=== PATIENT | male | born 1950 | race Caucasian/White ===

== ENCOUNTER → 2017-10-31 13:22 | Outpatient (REF) | payer SELFPAY | LOC: OM 13:22 | PROVIDERS: PCP Internal Medicine; Visit Provider Nurse Practitioner Family | DX: Z11.1 Encounter for screening for respiratory tuberculosis (principal) ==

== ENCOUNTER → 2017-11-02 13:30 | Outpatient (REF) | payer SELFPAY | LOC: OM 13:30 | PROVIDERS: PCP Internal Medicine; Visit Provider Nurse Practitioner Family | DX: Z11.1 Encounter for screening for respiratory tuberculosis (principal) ==

== ENCOUNTER 2017-11-10 09:03 | Outpatient (CLI) | payer MEDICARE, OTHER, SELFPAY ==
[2017-11-10 09:32] LABS: Absolute Basophil Count 0.03 k/cumm (0.0-0.2); Absolute Eosinophil Count 0.24 k/cumm (0.0-0.7); Absolute Lymphocyte Count 1.37 k/cumm (1.2-3.4); Absolute Monocyte Count 0.45 k/cumm (0.11-0.7); Absolute Neutrophil Count 2.89 k/cumm (1.2-6.7); Basophils % 0.6; Eosinophils % 4.8; HCT 41.4 % (40.0-50.0); HGB 13.9 g/dL (13.5-17.5); Lymphocytes % 27.5; Mean Corp. HGB Concentration 33.6 g/dL (32.0-36.0); Mean Corpuscular Volume 95.2 fL (80-95); Mean Platelet Volume 8.9 fL (8.0-11.0); Neutrophils % 58.1; Platelet Count 242 x1000/uL (130-400); RBC 4.35 m/cumm (4.50-6.00); RBC Distribution Width 13.3 % (11.8-14.1); White Blood Cell Count 4.98 k/cumm (4.4-10.8)
[2017-11-10 09:45] LABS: ALT 41 U/L (12-78); AST 26 U/L (15-37); Albumin 4.2 g/dL (3.4-5.0); Alkaline Phosphatase 92 U/L (46-116); Anion Gap 8.3 mmol/L (3-11); BUN 20 mg/dL (7-18); Bilirubin, Total 0.6 mg/dL (0.2-1.0); CO2 27.7 mmol/L (21.0-32.0); CREATININE 1.12 mg/dL (0.70-1.30); Calcium 9.2 mg/dL (8.5-10.1); Chloride 105 mmol/L (98-107); Glucose 99 mg/dL (70-100); Potassium 4.1 mmol/L (3.5-5.1); Sodium 141 mmol/L (136-145); Total Protein 8.4 g/dL (6.4-8.2)
[2017-11-11 09:06] LABS: PSA, Diagnostic <0.1 ng/ml (0-4.5)
== END 2017-11-10 09:23 ==
PROVIDERS: PCP Internal Medicine; Visit Provider Internal Medicine Medical Oncology
DX: C61 Malignant neoplasm of prostate (principal)
CPT/HCPCS: 36415; 80053; 84153; 85025

== ENCOUNTER 2017-11-15 11:43 | Outpatient (REF) | payer MEDICARE, OTHER, SELFPAY ==
[2017-11-15 21:47] LABS: Cholesterol 177 mg/dL (50-200); HDL Cholesterol 49 mg/dL (40-60); LDL CHOLESTEROL 112 mg/dL (<100); Triglyceride 125 mg/dL (30-150)
[2017-11-15 21:53] LABS: Hemoglobin A1C 5.8 % (4.5-6.2)
[2017-11-17 11:57] LABS: Hepatitis C Ab w Rflx HCV PCR Negative (NEGAT)
== END 2017-11-15 12:03 ==
LOC: NCHCN 11:43
PROVIDERS: PCP Internal Medicine; Visit Provider Internal Medicine
DX: C61 Malignant neoplasm of prostate (principal); E78.5 Hyperlipidemia, unspecified; E03.9 Hypothyroidism, unspecified; F31.81 Bipolar II disorder
CPT/HCPCS: 80061; 83721; 86803; 83036

== ENCOUNTER 2018-08-03 13:16 | Outpatient (REF) | payer MEDICARE, OTHER, SELFPAY | END 2018-08-03 13:36 | LOC: NCHCN 13:16 | PROVIDERS: Visit Provider Internal Medicine | DX: E03.9 Hypothyroidism, unspecified (principal) | CPT/HCPCS: 84443 ==

== ENCOUNTER 2018-08-11 02:58 | Outpatient (CLI) | payer MEDICARE, OTHER, SELFPAY ==
[2018-08-11 10:29] LABS: Abs Immature Grans 0.01 k/cumm (0.0-0.09); Absolute Basophil Count 0.01 k/cumm (0.0-0.2); Absolute Lymphocyte Count 1.56 k/cumm (1.2-3.4); Absolute Monocyte Count 0.49 k/cumm (0.11-0.7); Basophils % 0.2; Eosinophils % 1.8; HCT 41.5 % (40.0-50.0); HGB 14.1 g/dL (13.5-17.5); Immature Grans % 0.2; Lymphocytes % 27.5; Mean Corpuscular Hemoglobin 32.1 pg (27.0-33.0); Mean Corpuscular Volume 94.5 fL (80-95); Mean Platelet Volume 8.6 fL (8.0-11.0); Monocytes % 8.6; Neutrophils % 61.7; Platelet Count 237 x1000/uL (130-400); RBC 4.39 m/cumm (4.50-6.00); RBC Distribution Width 12.6 % (11.8-14.1); White Blood Cell Count 5.67 k/cumm (4.4-10.8)
[2018-08-11 11:18] LABS: ALT 60 U/L (12-78); AST 26 U/L (15-37); Alkaline Phosphatase 99 U/L (46-116); Anion Gap 11.5 mmol/L (3-11); BUN 22 mg/dL (7-18); Bilirubin, Total 0.2 mg/dL (0.2-1.0); CO2 25.5 mmol/L (21.0-32.0); CREATININE 1.09 mg/dL (0.70-1.30); Calcium 8.9 mg/dL (8.5-10.1); Chloride 104 mmol/L (98-107); Glucose 132 mg/dL (70-100); Potassium 4.2 mmol/L (3.5-5.1); Sodium 141 mmol/L (136-145); Total Protein 7.9 g/dL (6.4-8.2)
[2018-08-14 09:57] LABS: PSA, Diagnostic <0.1 ng/ml (0-4.5)
== END 2018-08-11 03:18 ==
PROVIDERS: PCP Internal Medicine; Visit Provider Internal Medicine Hematology & Oncology
DX: C61 Malignant neoplasm of prostate (principal); C77.5 Secondary and unspecified malignant neoplasm of intrapelvic lymph nodes
CPT/HCPCS: 36415; 80053; 84153; 85025

== ENCOUNTER → 2018-09-18 13:43 | Outpatient (BNVA) | payer MEDICARE, OTHER, SELFPAY | PROVIDERS: PCP Internal Medicine; Visit Provider Urology | DX: C61 Malignant neoplasm of prostate (principal) | CPT/HCPCS: 99213 ==

== ENCOUNTER 2018-10-13 09:10 | Outpatient (CLI) | payer MEDICARE, OTHER, SELFPAY ==
[2018-10-13 10:33] LABS: ALT 96 U/L (12-78); AST 46 U/L (15-37); Albumin 3.9 g/dL (3.4-5.0); Alkaline Phosphatase 95 U/L (46-116); Anion Gap 11.7 mmol/L (3-11); BUN 16 mg/dL (7-18); Bilirubin, Total 0.4 mg/dL (0.2-1.0); CO2 27.3 mmol/L (21.0-32.0); CREATININE 1.19 mg/dL (0.70-1.30); Calcium 8.8 mg/dL (8.5-10.1); Calculated LDL 135 mg/dL; Chloride 106 mmol/L (98-107); Cholesterol 211 mg/dL (50-200); Glucose 101 mg/dL (70-100); HDL Cholesterol 41 mg/dL (40-60); Potassium 4.3 mmol/L (3.5-5.1); Sodium 145 mmol/L (136-145); Total Protein 7.4 g/dL (6.4-8.2); Triglyceride 178 mg/dL (30-150)
== END 2018-10-13 09:30 ==
PROVIDERS: PCP Internal Medicine; Visit Provider Nurse Practitioner Family
DX: F31.13 Bipolar disorder, current episode manic without psychotic features, severe (principal); Z79.899 Other long term (current) drug therapy
CPT/HCPCS: 36415; 80053; 80061; 83721

== ENCOUNTER 2018-11-10 09:00 | Outpatient (CLI) | payer MEDICARE, OTHER, SELFPAY ==
[2018-11-10 11:12] LABS: Abs Immature Grans 0.02 k/cumm (0.0-0.09); Absolute Basophil Count 0.03 k/cumm (0.0-0.2); Absolute Eosinophil Count 0.33 k/cumm (0.0-0.7); Absolute Lymphocyte Count 2.04 k/cumm (1.2-3.4); Absolute Monocyte Count 0.54 k/cumm (0.11-0.7); Absolute Neutrophil Count 2.66 k/cumm (1.2-6.7); Basophils % 0.5; Eosinophils % 5.9; HCT 40.2 % (40.0-50.0); HGB 13.7 g/dL (13.5-17.5); Immature Grans % 0.4; Lymphocytes % 36.3; Mean Corp. HGB Concentration 34.1 g/dL (32.0-36.0); Mean Corpuscular Hemoglobin 32.2 pg (27.0-33.0); Mean Corpuscular Volume 94.4 fL (80-95); Monocytes % 9.6; Neutrophils % 47.3; Platelet Count 257 x1000/uL (130-400); RBC 4.26 m/cumm (4.50-6.00); RBC Distribution Width 12.8 % (11.8-14.1); White Blood Cell Count 5.62 k/cumm (4.4-10.8)
[2018-11-10 12:06] LABS: ALT 74 U/L (16-63); AST 36 U/L (15-37); Albumin 3.9 g/dL (3.4-5.0); Alkaline Phosphatase 106 U/L (46-116); Anion Gap 6.9 mmol/L (3-11); BUN 21 mg/dL (7-18); Bilirubin, Total 0.3 mg/dL (0.2-1.0); CO2 30.1 mmol/L (21.0-32.0); CREATININE 1.02 mg/dL (0.70-1.30); Calcium 8.8 mg/dL (8.5-10.1); Chloride 106 mmol/L (98-107); Glucose 97 mg/dL (70-100); Potassium 4.4 mmol/L (3.5-5.1); Sodium 143 mmol/L (136-145); Total Protein 7.6 g/dL (6.4-8.2)
[2018-11-13 11:00] LABS: PSA, Diagnostic <0.1 ng/ml (0-6.5)
== END 2018-11-10 09:20 ==
PROVIDERS: Internal Medicine Hematology & Oncology; PCP Internal Medicine; Visit Provider Registered Nurse Oncology
DX: C61 Malignant neoplasm of prostate (principal)
CPT/HCPCS: 36415; 80053; 84153; 85025

== ENCOUNTER → 2019-01-25 09:30 | Outpatient (BNVA) | payer MEDICARE, OTHER, SELFPAY | PROVIDERS: PCP Internal Medicine; Referring Provider Nurse Practitioner Family; Visit Provider Psychiatry & Neurology Neurology | DX: R41.3 Other amnesia (principal); G62.9 Polyneuropathy, unspecified; G25.1 Drug-induced tremor | CPT/HCPCS: 99205; 99215 ==

== ENCOUNTER 2019-01-29 02:24 | Outpatient (CLI) | payer MEDICARE, OTHER, SELFPAY ==
--- NOTE | 2019-01-29 15:05 | DI.MRI_ITS ---
EXAM: MR BRAIN WO CLINICAL HISTORY: MEMORY LOSS, AMNESIA, R41.3. TECHNIQUE: Multiplanar multisequence MRI was performed. COMPARISON: No exams were available for comparison FINDINGS: The vertebral and basilar arteries are ectatic but otherwise normal in diameter. The distal internal carotid arteries, anterior middle cerebral artery flow voids are unremarkable. There is mild underl georges atrophy. No intracranial hemorrhage, mass or infarct is seen. Ventricles are normal in size. There are no significant white matter lesions. The orbits, sinuses and pituitary are unremarkable. IMPRESSION: Mild atrophy. No acute abnormality.
[2019-01-29 15:47] LABS: Vitamin B12 521 pg/mL (193-986)
== END 2019-01-29 02:44 ==
PROVIDERS: PCP Internal Medicine; Visit Provider Psychiatry & Neurology Neurology
DX: R41.3 Other amnesia (principal); G31.89 Other specified degenerative diseases of nervous system; G62.9 Polyneuropathy, unspecified
CPT/HCPCS: 36415; 70551; 82607

== ENCOUNTER 2019-01-31 09:28 | Outpatient (CLI) | payer MEDICARE, OTHER, SELFPAY ==
[2019-01-31 12:24] LABS: Abs Immature Grans 0.01 k/cumm (0.0-0.09); Absolute Basophil Count 0.02 k/cumm (0.0-0.2); Absolute Eosinophil Count 0.11 k/cumm (0.0-0.7); Absolute Monocyte Count 0.62 k/cumm (0.11-0.7); Basophils % 0.3; Eosinophils % 1.9; HCT 40.9 % (40.0-50.0); HGB 13.5 g/dL (13.5-17.5); Immature Grans % 0.2; Lymphocytes % 32.4; Mean Corpuscular Hemoglobin 31.4 pg (27.0-33.0); Mean Corpuscular Volume 95.1 fL (80-95); Mean Platelet Volume 9.1 fL (8.0-11.0); Monocytes % 10.6; Neutrophils % 54.6; Platelet Count 307 x1000/uL (130-400); White Blood Cell Count 5.86 k/cumm (4.4-10.8)
[2019-01-31 12:45] LABS: ALT 50 U/L (16-63); AST 33 U/L (15-37); Albumin 4.1 g/dL (3.4-5.0); Alkaline Phosphatase 91 U/L (46-116); Anion Gap 10.1 mmol/L (3-11); BUN 22 mg/dL (7-18); Bilirubin, Total 0.3 mg/dL (0.2-1.0); CO2 28.9 mmol/L (21.0-32.0); CREATININE 1.07 mg/dL (0.70-1.30); Calcium 9.2 mg/dL (8.5-10.1); Chloride 105 mmol/L (98-107); Glucose 92 mg/dL (74-106); Potassium 4.2 mmol/L (3.5-5.1); Sodium 144 mmol/L (136-145); Total Protein 7.5 g/dL (6.4-8.2)
[2019-02-05 10:41] LABS: PSA, Diagnostic <0.1 ng/mL (0.0-6.5)
== END 2019-01-31 09:48 ==
PROVIDERS: PCP Internal Medicine; Visit Provider Internal Medicine Hematology & Oncology
DX: C61 Malignant neoplasm of prostate (principal)
CPT/HCPCS: 36415; 80053; 84153; 85025

== ENCOUNTER 2019-04-11 13:53 | Outpatient (CLI) | payer MEDICARE, OTHER, SELFPAY ==
--- NOTE | 2019-04-11 09:40 | DI.RAD_ITS ---
EXAM: XR ELBOW LT COMPLETE INDICATION: ELBOW JOINT PAIN LT M25.522, FELL BACKWARDS 04/10/19 AFTER SLIPPING ON ICE. COMPARISON: No exams were available for comparison TECHNIQUE: 2D digital imaging was performed. FINDINGS: There is a longitudinal lucency through the lateral aspect of the radial head suspicious for a nondis placed fracture. There is a joint effusion. No other fracture or dislocation is appreciated. No ra diopaque foreign bodies are seen in the soft tissues. IMPRESSION: Findings suspicious for a nondisplaced radial head fracture. A CT scan of the elbow should be consid ered for further evaluation.
== END 2019-04-11 14:13 ==
PROVIDERS: PCP Internal Medicine; Visit Provider Specialist/Technologist Athletic Trainer
DX: M25.522 Pain in left elbow (principal); M25.422 Effusion, left elbow; M89.8X3 Other specified disorders of bone, forearm
CPT/HCPCS: 73080

== ENCOUNTER → 2019-04-13 08:39 | Outpatient (BNVA) | payer MEDICARE, OTHER, SELFPAY | PROVIDERS: PCP Internal Medicine; Referring Provider Internal Medicine; Visit Provider Student in an Organized Health Care Education/Training Program | DX: S50.02XA Contusion of left elbow, initial encounter (principal); W00.0XXA Fall on same level due to ice and snow, initial encounter | CPT/HCPCS: 99203; 99213 ==

== ENCOUNTER 2019-04-27 02:40 | Outpatient (CLI) | payer MEDICARE, OTHER, SELFPAY ==
--- NOTE | 2019-04-27 | DI.CT_ITS ---
EXAM: CT ABDOMEN AND PELVIS W CLINICAL HISTORY: H/O PROSTATE CA WITH ILIAC LYMPH NODE INVOLVEMENT TECHNIQUE: Images were performed from the lung bases through the ischial tuberosities after IV and o ral contrast. COMPARISON: ABD PELVIS WITH CONTRAST from 05/12/2016 FINDINGS: The lung bases are clear. The liver, spleen, pancreas, adrenals and kidneys are unremarkable. The pat ient is status post cholecystectomy. The colon shows increased stool. The stomach and small bowel are unremarkable. Metallic densities are noted in the prostate, which is mildly enlarged. The prostate a ppears smaller when compared with the previous exam and shows no invasive features. Prostate measures 5.3 x 4.2 x 4.7 cm. There is mild diffuse bladder wall thickening. No bladder mass or bladder calcul i are seen. The aorta shows mild to moderate calcification and is normal in diameter. No adenopathy i s seen. Previously noted right iliac chain lymph node is no longer seen. No suspicious bony lesions a re seen. A hemangioma is seen in the L1 vertebral body. There are prominent facet degenerative change s at L5-S1. IMPRESSION: Interval decrease in size of prostate. No evidence of adenopathy or metastatic disease.
[2019-04-27] MEDS: Breeza Beverage 473 ML BTL PO ×2 (07:40→07:42)
[2019-04-27] MEDS: Omnipaque 350 MG/ML 50 ML BTL PO (07:42)
[2019-04-27 08:15] LABS: Abs Immature Grans 0.01 k/cumm (0.0-0.09); Absolute Basophil Count 0.03 k/cumm (0.0-0.2); Absolute Eosinophil Count 0.13 k/cumm (0.0-0.7); Absolute Lymphocyte Count 1.72 k/cumm (1.2-3.4); Absolute Monocyte Count 0.47 k/cumm (0.11-0.7); Absolute Neutrophil Count 3.18 k/cumm (1.2-6.7); Basophils % 0.5; Eosinophils % 2.3; HCT 42.9 % (40.0-50.0); HGB 14.5 g/dL (13.5-17.5); Immature Grans % 0.2 %; Mean Corp. HGB Concentration 33.8 g/dL (32.0-36.0); Mean Corpuscular Hemoglobin 31.7 pg (27.0-33.0); Mean Corpuscular Volume 93.9 fL (80-95); Mean Platelet Volume 8.7 fL (8.0-11.0); Monocytes % 8.5; Neutrophils % 57.5; Platelet Count 274 x1000/uL (130-400); RBC 4.57 m/cumm (4.50-6.00); RBC Distribution Width 13.2 % (11.8-14.1); White Blood Cell Count 5.54 k/cumm (4.4-10.8)
[2019-04-27 08:30] LABS: ALT 30 U/L (16-63); AST 23 U/L (15-37); Alkaline Phosphatase 93 U/L (46-116); BUN 17 mg/dL (7-18); Bilirubin, Total 0.5 mg/dL (0.2-1.0); CREATININE 1.11 mg/dL (0.70-1.30); Calcium 8.6 mg/dL (8.5-10.1); Chloride 107 mmol/L (98-107); Glucose 106 mg/dL (74-106); Potassium 3.8 mmol/L (3.5-5.1); Sodium 146 mmol/L (136-145); Total Protein 7.6 g/dL (6.4-8.2)
[2019-04-27] MEDS: Normal Saline - Diluent 50 ML VIAL IV (09:45)
[2019-04-27] MEDS: Omnipaque 350 MG/ML 100 ML BTL IJ (09:46)
[2019-04-27] MEDS: Normal Saline Flush 10 ML SYR IVP (09:48)
[2019-04-28 11:58] LABS: PSA, Ultrasensitive <0.01 ng/mL (<= 6.5)
== END 2019-04-27 03:00 ==
PROVIDERS: PCP Internal Medicine; Visit Provider Internal Medicine Hematology & Oncology
DX: C61 Malignant neoplasm of prostate (principal); C79.89 Secondary malignant neoplasm of other specified sites
CPT/HCPCS: 80053; 84153; 74177; 85025; J3490; Q9967

== ENCOUNTER 2019-07-20 01:33 | Outpatient (CLI) | payer MEDICARE, OTHER, SELFPAY ==
[2019-07-23 13:26] LABS: PSA, Ultrasensitive <0.01 ng/mL (<= 6.5)
== END 2019-07-20 01:53 ==
PROVIDERS: PCP Internal Medicine; Visit Provider Internal Medicine Hematology & Oncology
DX: C61 Malignant neoplasm of prostate (principal)
CPT/HCPCS: 36415; 84153

== ENCOUNTER → 2019-07-26 10:42 | Outpatient (BNVA) | payer MEDICARE, OTHER, SELFPAY | PROVIDERS: PCP Internal Medicine; Referring Provider Internal Medicine; Visit Provider Psychiatry & Neurology Neurology | DX: G25.1 Drug-induced tremor (principal); R41.3 Other amnesia | CPT/HCPCS: 99214 ==

== ENCOUNTER 2019-08-08 10:27 | Outpatient (REF) | payer MEDICARE, OTHER, SELFPAY ==
[2019-08-08 21:56] LABS: TSH 0.57 uIU/mL (0.36-3.74)
== END 2019-08-08 10:47 ==
LOC: NCHCN 10:27
PROVIDERS: PCP Internal Medicine; Visit Provider Internal Medicine
DX: E03.9 Hypothyroidism, unspecified (principal)
CPT/HCPCS: 84443

== ENCOUNTER → 2019-09-20 15:28 | Outpatient (BNVA) | payer MEDICARE, OTHER, SELFPAY | PROVIDERS: PCP Internal Medicine; Visit Provider Urology | DX: C61 Malignant neoplasm of prostate (principal) | CPT/HCPCS: 99213 ==

== ENCOUNTER 2019-10-17 12:14 | Inpatient (IN) | payer MEDICARE, OTHER, SELFPAY ==
[2019-10-17 12:15] VITALS: BP 149/93; PULSE 118; RESP 18; TEMP 37.2; O2SAT 97
--- NOTE | 2019-10-17 12:19 | ED.GENADUL_ITS ---
Discharge Plan Disposition Patient Disposition: [facility] INPATIENT Condition: Stable Discharge Details Chief Complaint: PsychEval Clinical Impression: Major depression, Suicide ideation Admit Date/Time: 10/17/19 15:18 Admit Provider: Rosangela Norris Attending Provider: Rosangela Norris Primary Care Provider: Celio Sanders ED Provider: Sofy Lindquist Discharge Data Discharge Date/Time-TO BE ENTERED AT DEPARTURE: 10/17/19 15:50 Medical Decision Making 1230 -- 69-year-old male with a history of bipolar disorder, hypothyroidism, hyperlipidemia prostate cancer on Lupron presents for admission for suicidal ideation. Patient is voluntary and agreeable with plan for admission. Patient appears anxious with flat affect. His heart rate is tachycardic. He appears nontoxic. Screening labs obtained and unremarkable. Will page mental health for evaluation. 1445 --mental health evaluated at bedside and agree that patient is appropriate for inpatient admission. There will be no inpatient psychiatric beds available today. Recommend admission here overnight. Case discussed with hospitalist who accepts patient for admission. Medical Records Medical records reviewed: Yes I reviewed the patient's medical records. Lab Data Lab results reviewed: Yes I reviewed the patient's lab results. Labs: Laboratory Tests Range/Units 10/17/19 10/17/19 10/17/19 12:25 12:36 12:36 WBC (4.4-10.8) 10^3/uL 7.27 RBC (4.36-5.78) 10^6/uL 4.29 L Hgb (13.5-17.5) g/dL 13.6 Hct (40.0-50.0) % 40.3 MCV (80-95) fL 93.9 MCH (27.0-33.0) pg 31.7 MCHC (32.0-36.0) % 33.7 RDW (11.8-14.1) % 13.0 Plt Count (130-400) 10^3/uL 261 MPV (8.0-11.0) fL 8.8 Immature Gran % 0.6 Neutrophils % 71.7 Lymphocytes % 18.2 Monocytes % 8.4 Eosinophils % 0.8 Basophils % 0.3 Absolute Neutrophils (1.2-6.7) 10^3/uL 5.22 Absolute Lymphocytes (1.2-3.4) 10^3/uL 1.32 Absolute Monocytes (0.1-0.8) 10^3/uL 0.61 Absolute Eosinophils (0.0-0.7) 10^3/uL 0.06 Absolute Basophils (0.0-0.2) 10^3/uL 0.02 Sodium (136-145) mmol/L 140 Potassium (3.5-5.1) mmol/L 3.7 Chloride (98-107) mmol/L 104 Carbon Dioxide (21.0-32.0) mmol/L 27.9 Anion Gap (3-11) mmol/L 8.1 BUN (7-18) mg/dL 17 Creatinine (0.70-1.30) mg/dL 1.01 Estimated GFR/1.73 m2 (mL/min/1.73m2) >= 60.00 Glucose (74-106) mg/dL 164 H Calcium (8.5-10.1) mg/dL 8.8 Total Bilirubin (0.2-1.0) mg/dL 0.3 AST (15-37) U/L 20 ALT (16-63) U/L 44 Alkaline Phosphatase (46-116) U/L 64 Total Protein (6.4-8.2) g/dL 7.7 Albumin (3.4-5.0) g/dL 4.1 TSH (0.36-3.74) uIU/mL Urine Opiates Screen (Negative) Negative Urine Methadone Screen (Negative) Negative Ur Barbiturates Screen (Negative) Negative Ur Tricyclics Screen (Negative) Negative Ur Amphetamines Screen (Negative) Negative U Benzodiazepines Scrn (Negative) Negative Urine Cocaine Screen (Negative) Negative Ur THC Screen (Negative) Negative Ethyl Alcohol (<3) mg/dL < 3.0 Range/Units 10/17/19 12:36 WBC (4.4-10.8) 10^3/uL RBC (4.36-5.78) 10^6/uL Hgb (13.5-17.5) g/dL Hct (40.0-50.0) % MCV (80-95) fL MCH (27.0-33.0) pg MCHC (32.0-36.0) % RDW (11.8-14.1) % Plt Count (130-400) 10^3/uL MPV (8.0-11.0) fL Immature Gran % Neutrophils % Lymphocytes % Monocytes % Eosinophils % Basophils % Absolute Neutrophils (1.2-6.7) 10^3/uL Absolute Lymphocytes (1.2-3.4) 10^3/uL Absolute Monocytes (0.1-0.8) 10^3/uL Absolute Eosinophils (0.0-0.7) 10^3/uL Absolute Basophils (0.0-0.2) 10^3/uL Sodium (136-145) mmol/L Potassium (3.5-5.1) mmol/L Chloride (98-107) mmol/L Carbon Dioxide (21.0-32.0) mmol/L Anion Gap (3-11) mmol/L BUN (7-18) mg/dL Creatinine (0.70-1.30) mg/dL Estimated GFR/1.73 m2 (mL/min/1.73m2) Glucose (74-106) mg/dL Calcium (8.5-10.1) mg/dL Total Bilirubin (0.2-1.0) mg/dL AST (15-37) U/L ALT (16-63) U/L Alkaline Phosphatase (46-116) U/L Total Protein (6.4-8.2) g/dL Albumin (3.4-5.0) g/dL TSH (0.36-3.74) uIU/mL 0.95 Urine Opiates Screen (Negative) Urine Methadone Screen (Negative) Ur Barbiturates Screen (Negative) Ur Tricyclics Screen (Negative) Ur Amphetamines Screen (Negative) U Benzodiazepines Scrn (Negative) Urine Cocaine Screen (Negative) Ur THC Screen (Negative) Ethyl Alcohol (<3) mg/dL HPI General Mode of arrival: ambulatory . Date/Time Provider Initiated Documentation: 10/17/19 12:18 . Limitations to Documentation: no limitations . Information obtained by: patient . HPI Narrative: Patient is a 69-year-old male with a history of bipolar disorder, hyperlipidemia, hypothyroidism, prostate cancer who presents to the ED with a complaint of feeling suicidal for the past several months, getting progressively worse. Patient was sent by [facility] for admission. Patient is willing to stay for admission. He states he purchased a gun over the weekend with intent to shoot himself. He has had previous suicidal thoughts for several years but has never attempted suicide. He has been taking his medications. He states he feels that his is sometimes a support system but sometimes is angry with him. He states he has been sleeping well and eating well. He denies any acute medical complaints. He denies any homicidal ideation, drug or alcohol use, visual or auditory hallucinations. Related Data Home Medications Medication Instructions Recorded Confirmed levothyroxine 75 mcg PO DAILY #4 tab 08/04/17 10/17/19 pravastatin 20 mg tablet 40 mg PO DAILY tab 01/25/19 10/17/19 lamotrigine 200 mg tablet 200 mg PO DAILY 07/26/19 10/17/19 mirtazapine 30 mg tablet 60 mg PO HS tab 07/26/19 10/17/19 benztropine 2 mg PO QAM 10/17/19 10/17/19 risperidone 2 mg PO DAILY 10/17/19 10/17/19 Previous Rx's Medication Instructions Recorded levothyroxine 75 mcg PO DAILY #4 tab 08/04/17 Allergies Allergy/AdvReac Type Severity Reaction Status Date / Time No Known Allergies Allergy Unverified 07/26/19 10:49 Review of Systems All systems reviewed & are unremarkable except as noted in HPI and below Constitutional Constitutional: Reports as per HPI, Denies chills and Denies fever(s) Eyes Eyes: Denies blurry vision ENT Ears, Nose, Mouth, and Throat: Denies dizziness, Denies sore throat and Denies throat swelling Cardiovascular Cardiovascular: Denies chest pain and Denies dyspnea Respiratory Respiratory: Denies cough and Denies dyspnea Gastrointestinal Gastrointestinal: Denies abdominal pain, Denies diarrhea and Denies vomiting Genitourinary Genitourinary: Denies hematuria and Denies dysuria Musculoskeletal Musculoskeletal: Denies back pain and Denies numbness Integumentary/Breasts Skin/Breast: Denies lesions and Denies rash Neurologic Neurologic: Denies dizziness, Denies localized weakness and Denies numbness Psychiatric Psychiatric: Reports suicidal ideation Allergic/Immunologic Allergic/Immunologic: Denies throat swelling [facility] Medical History (Updated 10/17/19 @ 20:30 by Sofy Lindquist DO) Bipolar disorder, manic (Acute) Hyperlipidemia (Chronic) Hypothyroidism (Chronic) Prostate cancer (Chronic) Psoriasis (Chronic) Surgical History S/P appendectomy (Acute) S/P cholecystectomy (Acute) S/P tonsillectomy (Acute) Family History Father Alzheimer disease Prostate cancer Anxiety Mother Colon cancer Heart disease Social History Smoking/Tobacco Use Status: Never Alcohol Intake: current Alcohol Intake frequency: holidays/special occasions only Drug use: Never Substance use type: does not use Household members: spouse Number of Children: 2 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; [employer] Do you feel safe at home: No (suicidal) Do you feel safe in your relationship?: Yes Exam Const General: cooperative, healthy appearing and no acute distress HENMT Head: normal to inspection Face and sinus: normal facial exam Eyes General: appearance normal, both eyes and all related structures Pupils: PERRL EOM: EOM intact bilaterally Neck Neck: normal visual inspection and No submandibular swelling Lymphatic: no lymphadenopathy noted Chest Chest: normal inspection of the chest and no tenderness Resp Effort & Inspection: normal respiratory effort and able to speak in complete sentences Auscultation: clear to auscultation bilaterally Cardio Rate: regular rate Rhythm: regular rhythm GI Inspection: normal to inspection Palpation: soft, not firm, not rigid and nontender Auscultation: normal bowel sounds Skin General skin exam: no rashes or lesions noted Neuro General: patient alert, patient awake and patient oriented x3 Cognition: normal cognition Speech: speech normal Motor: muscle tone normal throughout Sensory Exam: no sensory deficits noted Extrem General: normal to inspection, full ROM, capillary refill normal, no calf tenderness bilaterally and no edema Psych Appearance: grossly normal Mental Status: mental status grossly normal Speech and Movement: speech and movement normal Affect: blunted
[2019-10-17 12:43] LABS: Abs Immature Grans 0.04 10^3/uL (0.0-0.06); Absolute Basophil Count 0.02 10^3/uL (0.0-0.2); Absolute Eosinophil Count 0.06 10^3/uL (0.0-0.7); Absolute Lymphocyte Count 1.32 10^3/uL (1.2-3.4); Absolute Monocyte Count 0.61 10^3/uL (0.1-0.8); Absolute Neutrophil Count 5.22 10^3/uL (1.2-6.7); Basophils % 0.3; Eosinophils % 0.8; HCT 40.3 % (40.0-50.0); HGB 13.6 g/dL (13.5-17.5); Immature Grans % 0.6; Lymphocytes % 18.2; MCH 31.7 pg (27.0-33.0); MCHC 33.7 % (32.0-36.0); MCV 93.9 fL (80-95); MPV 8.8 fL (8.0-11.0); Monocytes % 8.4; Neutrophils % 71.7; Nucleated RBC 0 %; Platelet Count 261 10^3/uL (130-400); RBC 4.29 10^6/uL (4.36-5.78); RDW-SD 44.7 fL; WBC 7.27 10^3/uL (4.4-10.8)
[2019-10-17 12:56] LABS: ALT 44 U/L (16-63); AST 20 U/L (15-37); Albumin 4.1 g/dL (3.4-5.0); Alkaline Phosphatase 64 U/L (46-116); Anion Gap 8.1 mmol/L (3-11); BUN 17 mg/dL (7-18); Bilirubin, Total 0.3 mg/dL (0.2-1.0); CO2 27.9 mmol/L (21.0-32.0); CREATININE 1.01 mg/dL (0.70-1.30); Calcium 8.8 mg/dL (8.5-10.1); Chloride 104 mmol/L (98-107); Glucose 164 mg/dL (74-106); Potassium 3.7 mmol/L (3.5-5.1); Sodium 140 mmol/L (136-145); Total Protein 7.7 g/dL (6.4-8.2)
[2019-10-17 13:05] LABS: ETHANOL BLOOD < 3.0 mg/dL (<3)
[2019-10-17 13:06] LABS: *AMPHETAMINES SCREEN URINE Negative (Negative); *BARBITURATES SCREEN URINE Negative (Negative); *BENZODIAZEPINES SCREEN URINE Negative (Negative); Cannabinoids THC Negative (Negative); Cocaine Screen,Urine Negative (Negative); METHADONE URINE SCREEN Negative (Negative); OPIATES URINE SCREEN Negative (Negative)
[2019-10-17 13:07] LABS: Tricyclic Antidepressants Negative (Negative)
--- NOTE | 2019-10-17 15:02 | PDOC.MHCN ---
Date of service: 10/17/19 Time of Service: 15:02 Mental Health Crisis Note Presenting Issue How did you arrive at the ED and why did you come: Nain drove himself to the ER today at the strong encouragement of his PMHNP. Precipitating Factors Nain admits to current persistent SI with plan, intent and means. Nain admits to buying a firearm this past weekend and that it is loaded under his bed. Disposition BEHAVIOR: Nain is cooperative and friendly. He engages in the conversation and asks appropriate questions when needed to clarify. EYE CONTACT: Nain makes fair eye contact. MOOD: Nain presents as depressed. AFFECT: His affect is flat. APPETITE: Nain reported a good appetite. SLEEP(trouble falling/staying asleep: Nain reported good sleep. Plan Nain is voluntarily excepting referral to a psychiatric inpatient unit. He gave verbal permission for this agency to call his to inform her of the loaded weapon under his bed. This call has been made. Signature Clinician's Name/Title: Merline Hamm MS, [facility] [employer] Clinician
--- NOTE | 2019-10-17 15:29 | HPE_ITS ---
Date of service: 10/17/19 Time of Service: 15:29 Assessment and Plan Assessment and plan (1) Suicidal ideation: Status: Acute Assessment and plan: patient with suicidal ideation with plan and lethal means as he plans to shoot himself and has purchased a gun recently. mental health following and is being admitted pending inpatient psychiatric bed availability for management of major depression with suicidal ideation. He is medically cleared. He will be maintained on suicidal precautions Covid 19 testing pending, routine per admission protocol. (2) Bipolar disorder, manic: Status: Acute Assessment and plan: continue home medications, currently depressed continue risperidone and lamotrigine. lamotrigine level pending (send out). (3) Hypothyroidism: Status: Chronic Assessment and plan: continue synthroid. TSH was 0.57 in August of 2019, will add recheck to ED labs (4) Hyperlipidemia: Status: Chronic Assessment and plan: continue statin (5) Discharge planning issues: Status: Acute Assessment and plan: inpatient psychiatric treatment when bed available, case management and mental health following. case discussed with Dr Norris who is in agreement. History of Present Illness History of Present Illness Chief Complaint: suicidal Narrative: This is a 69-year-old male with a history of bipolar disorder, hyperlipidemia, hypothyroidism, prostate cancer who presented to the ED with a complaint of feeling suicidal for the past several months, getting progressively worse. Patient was sent by [facility]et for admission. He recently purchased a gun over the weekend with intent to shoot himself. He has had previous suicidal thoughts for several years but has never attempted suicide. He has been taking his medications. Medically he is cleared in the emergency department. He is evaluated by mental health and is agreeable to a voluntary inpatient psychiatric admission. Review of Systems Constitutional Constitutional: Denies anorexia, Denies fatigue and Denies fever(s) Eyes Eyes: Denies change in vision ENT Ears, Nose, Mouth, and Throat: Denies vertigo and Denies dizziness Cardiovascular Cardiovascular: Denies chest pain and Denies dyspnea Respiratory Respiratory: Denies dyspnea Gastrointestinal Gastrointestinal: Denies abdominal pain, Denies nausea and Denies vomiting Musculoskeletal Musculoskeletal: Denies myalgias and Denies arthralgias Integumentary/Breasts Skin/Breast: Denies new lesions and Denies rash Neurologic Neurologic: Reports behavioral changes (recently bought a gun), Denies confusion, Denies vertigo and Denies dizziness Psychiatric Psychiatric: Reports behavioral changes (recently bought a gun), Denies change in appetite, Denies confusion, Denies paranoia, Denies homicidal ideation and Reports suicidal ideation Endocrine Endocrine: Denies cold intolerance and Denies fatigue Hematologic/Lymphatic Hematologic/Lymphatic: Denies easy bleeding and Denies easy bruising [facility] Medical History (Updated 10/17/19 @ 15:33 by Patsy Kendrick NP) Bipolar disorder, manic (Acute) Hyperlipidemia (Chronic) Hypothyroidism (Chronic) Prostate cancer (Chronic) Psoriasis (Chronic) Surgical History S/P appendectomy (Acute) S/P cholecystectomy (Acute) S/P tonsillectomy (Acute) Family History Father Alzheimer disease Prostate cancer Anxiety Mother Colon cancer Heart disease Social History Smoking/Tobacco Use Status: Never Alcohol Intake: current Alcohol Intake frequency: holidays/special occasions only Drug use: Never Substance use type: does not use Household members: spouse Number of Children: 2 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; [employer] Do you feel safe at home: No (suicidal) Do you feel safe in your relationship?: Yes Meds Home Medications and Allergies Home Medications Medication Instructions Recorded Confirmed Type levothyroxine 75 mcg PO DAILY #4 tab 08/04/17 10/17/19 Rx pravastatin 20 mg tablet 40 mg PO DAILY tab 01/25/19 10/17/19 History lamotrigine 200 mg tablet 200 mg PO DAILY 07/26/19 10/17/19 History mirtazapine 30 mg tablet 60 mg PO HS tab 07/26/19 10/17/19 History benztropine 2 mg PO QAM 10/17/19 10/17/19 History risperidone 2 mg PO DAILY 10/17/19 10/17/19 History Allergies Allergy/AdvReac Type Severity Reaction Status Date / Time No Known Allergies Allergy Unverified 07/26/19 10:49 Exam Const General: cooperative, comfortable, no acute distress and disheveled Nutritional Appearance: average body habitus Orientation: alert, awake and oriented x3 HENMT Head: normal to inspection, normocephalic and atraumatic Mouth: oral mucosae normal Resp Effort & Inspection: normal respiratory effort Auscultation: clear to auscultation bilaterally Cardio Rate: tachycardic Rhythm: regular rhythm Heart Sounds: no murmurs GI Inspection: normal to inspection Palpation: soft Auscultation: normal bowel sounds Skin General skin exam: no rashes or lesions noted Neuro General: patient alert, patient awake and patient oriented x3 Cranial Nerves: CN's II-XI intact bilaterally Cognition: normal cognition Speech: speech normal Gait: normal gait Motor: muscle tone normal throughout Extrem General: normal to inspection, full ROM and no pedal edema Psych Appearance: disheveled Mental Status: mental status grossly normal and other (depressed) Speech and Movement: speech and movement normal Mood: other (depressed) Affect: blunted Attitude: cooperative Thought Process: normal Thought Content: suicidality Insight: fair Judgment: fair Results Labs Result diagrams: 10/17/19 12:36 10/17/19 12:36 Labs: Laboratory Results - last 24 hr 10/17/19 10/17/19 10/17/19 12:25 12:36 12:36 WBC 7.27 RBC 4.29 L Hgb 13.6 Hct 40.3 MCV 93.9 MCH 31.7 MCHC 33.7 RDW 13.0 Plt Count 261 MPV 8.8 Immature Gran % 0.6 Neutrophils % 71.7 Lymphocytes % 18.2 Monocytes % 8.4 Eosinophils % 0.8 Basophils % 0.3 Absolute Neutrophils 5.22 Absolute Lymphocytes 1.32 Absolute Monocytes 0.61 Absolute Eosinophils 0.06 Absolute Basophils 0.02 Sodium 140 Potassium 3.7 Chloride 104 Carbon Dioxide 27.9 Anion Gap 8.1 BUN 17 Creatinine 1.01 Estimated GFR/1.73 m2 >= 60.00 Glucose 164 H Calcium 8.8 Total Bilirubin 0.3 AST 20 ALT 44 Alkaline Phosphatase 64 Total Protein 7.7 Albumin 4.1 Urine Opiates Screen Negative Urine Methadone Screen Negative Ur Barbiturates Screen Negative Ur Tricyclics Screen Negative Ur Amphetamines Screen Negative U Benzodiazepines Scrn Negative Urine Cocaine Screen Negative Ur THC Screen Negative Ethyl Alcohol < 3.0 Last Vital Signs Temp 37.2 C 10/17/19 12:15 Pulse 118 H 10/17/19 12:15 Resp 18 10/17/19 12:15 BP 149/93 H 10/17/19 12:15 Pulse Ox 97 10/17/19 12:15 COVID-19 Screening Have you,or household,traveled outside [place] in last 14 days?: No Had IN PERSON contact w/suspected or confirmed C-19 person: No
[2019-10-17 16:00] VITALS: BP 147/84; RESP 16; TEMP 37.1; O2SAT 96
[2019-10-17 16:17] LABS: TSH 0.95 uIU/mL (0.36-3.74)
--- NOTE | 2019-10-17 16:32 | CMSP_ITS ---
- If Service Date Differs Date of service: 10/17/19 Time of Service: 16:32 Care Management Safety Plan Nain is being hospitalized for SI he admits to purchasing a gun. His provider at [facility] is concerned and feels that he needs psychiatric placement for assessment and stabilization. Nain has a history of Bipolar, and multiple psychiatric admissions at [facility] in the past he receives services through [facility] and [facility] for medications and management of his mental health. VOLUNTARY FOR INPATIENT PSYCHIATRIC STABILIZATION. Patient is appropriate in all interactions since arriving at [facility]; Pt has demonstrated appropriate coping and communication skills, has articulated his or her needs and concerns and is fully engaged during staff interactions. Safety plan has been established with patient, and care team, to adhere to patient goals, identify restrictions based on behavioral status, address nutrition, and determine allowed personal belongings, tools for hygiene and personal care. Determine level of activity including ambulation, level of supervision, visitors, and determine privileges based on behaviors and level of engagement by pt. SAFETY PLAN: Yoel HERNANDEZ has left a voice message for 1. Will remain on suicide precautions. In Paper Clothes 2. Will remain in room under direct supervision of one-on-one staff at all times provided by [employer]; [employer]I, BUSINESS LEADER human services worker. 3. May have paper cups, plates, finger foods as well as a cardboard spoon with which to eat meals. 4. Follow [facility] Management of the Admitted Behavioral Health Patient policy. 5. Comfort wipes or shower with one on one supervision. 6. No personal belongings 7. Visitors none at this time 8. Activities: television, adult coloring, crayons, reading materials 9. Bathroom privileges independently in the room 10. Phone: May use the phone with assistance and supervision 11. Due to VOLUNTARY status, if patient wishes to leave [facility], the [facility] beadworker must be contacted to re-evaluate patient prior to patient exiting the building. Patient is currently voluntarily at [facility] and seeking inpatient admission when a bed becomes available. [facility] Frontline Tack Cutter will continue seeking placement. Please contact the Quality Assurance Supervisor Volunteer Services Supervisor ([phone]) and [facility] Tack Cutter ([phone]) for any needed changes in the Safety Plan. Safety plan has been provided to interdepartmental care team.
--- NOTE | 2019-10-17 16:32 | PDOC.CMSAFE ---
- If Service Date Differs Date of service: 10/17/19 Time of Service: 16:32 Care Management Safety Plan Nain is being hospitalized for SI he admits to purchasing a gun. His provider at [facility] is concerned and feels that he needs psychiatric placement for assessment and stabilization. Nain has a history of Bipolar, and multiple psychiatric admissions at [facility] in the past he receives services through [facility] and [facility] for medications and management of his mental health. VOLUNTARY FOR INPATIENT PSYCHIATRIC STABILIZATION. Patient is appropriate in all interactions since arriving at [facility]; Pt has demonstrated appropriate coping and communication skills, has articulated his or her needs and concerns and is fully engaged during staff interactions. Safety plan has been established with patient, and care team, to adhere to patient goals, identify restrictions based on behavioral status, address nutrition, and determine allowed personal belongings, tools for hygiene and personal care. Determine level of activity including ambulation, level of supervision, visitors, and determine privileges based on behaviors and level of engagement by pt. SAFETY PLAN: Yoel HERNANDEZ has left a voice message for 1. Will remain on suicide precautions. In Paper Clothes 2. Will remain in room under direct supervision of one-on-one staff at all times provided by [employer]; NEFTALI, OUTPATIENT DIETITIAN exterior work helper. 3. May have paper cups, plates, finger foods as well as a cardboard spoon with which to eat meals. 4. Follow [facility] Management of the Admitted Behavioral Health Patient policy. 5. Comfort wipes or shower with one on one supervision. 6. No personal belongings 7. Visitors none at this time 8. Activities: television, adult coloring, crayons, reading materials 9. Bathroom privileges independently in the room 10. Phone: May use the phone with assistance and supervision 11. Due to VOLUNTARY status, if patient wishes to leave [facility], the [facility] rock worker must be contacted to re-evaluate patient prior to patient exiting the building. Patient is currently voluntarily at [facility] and seeking inpatient admission when a bed becomes available. [facility] Frontline Non Destructive Evaluation Specialist will continue seeking placement. Please contact the Oil Gauger Board Hammer Operator ([phone]) and [facility] Non Destructive Evaluation Specialist ([phone]) for any needed changes in the Safety Plan. Safety plan has been provided to interdepartmental care team.
[2019-10-17] MEDS: Melatonin 3 MG TAB 6 MG PO (21:26)
[2019-10-18] MEDS: Levothyroxine 75 MCG TAB PO (05:46)
[2019-10-18 08:09] VITALS: BP 121/78; PULSE 85; RESP 18; TEMP 37; O2SAT 98
[2019-10-18 08:16] LABS: COVID-19 RT-PCR UVMMC Result Negative (Negative)
[2019-10-18] MEDS: risperiDONE 1 MG TAB 2 MG PO (08:40)
[2019-10-18] MEDS: lamoTRIgine 100 MG TAB 200 MG PO (08:40)
--- NOTE | 2019-10-18 09:07 | CMSP_ITS ---
- If Service Date Differs Date of service: 10/18/19 Time of Service: 10:00 Care Management Safety Plan Status: Voluntary Nain continues to voluntarily seek placement for SI, as he admits to purchasing a gun with intent to end his life. PMH significant for Bipolar disorder with brayan, and previous psychiatric admissions at [facility]. Prior service connection at [facility] including [facility] for medications and mental health service supports. VOLUNTARY FOR INPATIENT PSYCHIATRIC STABILIZATION. Patient is appropriate in all interactions since arriving at [facility]; Pt has demonstrated appropriate coping and communication skills, has articulated his or her needs and concerns and is fully engaged during staff interactions. Safety plan has been established with patient, and care team, to adhere to patient goals, identify restrictions based on behavioral status, address nutrition, and determine allowed personal belongings, tools for hygiene and personal care. Determine level of activity including ambulation, level of supervision, visitors, and determine privileges based on behaviors and level of engagement by pt. SAFETY PLAN: 1. Will remain on suicide precautions. In Paper Clothes 2. Will remain in room under direct supervision of one-on-one staff at all times provided by [employer]; NEFTALI, PERINATAL TECHNICIAN medical records assistant. 3. May have paper cups, plates, finger foods as well as a cardboard spoon with which to eat meals. 4. Follow [facility] Management of the Admitted Behavioral Health Patient policy. 5. Shower permitted with escort per RN discretion. 6. No personal belongings at this time. 7. No visitors permitted at this time. 8. Activities: television and remote, adult coloring, crayons, reading materials 9. Bathroom available in the room without limitation. 10. Phone: Permitted incoming/outgoing calls with facilitation and supervision 11. Due to VOLUNTARY status, if patient wishes to leave [facility], the [facility] cut and cover line worker must be contacted to re-evaluate patient prior to patient exiting the building. Patient is currently voluntarily at [facility] and seeking inpatient admission when a bed becomes available. [facility] Frontline Carpenter Ship will continue seeking placement. Please contact the Manager Hospital Outreach Associate ([phone]) and [facility] Carpenter Ship ([phone]) for any needed changes in the Safety Plan. Safety plan has been provided to interdepartmental care team.
--- NOTE | 2019-10-18 09:44 | CMPROGNOTE_ITS ---
Care Management Progress Note 0910 MD arrive to re-screen Nain. 0925 CM faxed updated clinicals and negative COVID result to [facility] and [place]. 0989 [facility]: Merline reports Nain continues to meet criteria for inpatient psychiatric stabilization, and continues to want to end his life with active suicidal ideation at this time.
--- NOTE | 2019-10-18 09:44 | PDOC.CMPRO ---
Care Management Progress Note 0910 MD arrive to re-screen Nain. 0925 CM faxed updated clinicals and negative COVID result to [facility] and [place]. 0932 [facility]: Merline reports Nain continues to meet criteria for inpatient psychiatric stabilization, and continues to want to end his life with active suicidal ideation at this time.
--- NOTE | 2019-10-18 10:37 | W.INMHPGNOTE ---
Date of service: 10/18/19 Time of Service: 10:37 Mental Health Crisis Note Presenting Issue How did you arrive at the ED and why did you come: Nain arrived yesterday at the request and strong encouragement of his PMHNP. He came reporting SI, plan, attempt and means. Precipitating Factors Nain rated his SI today at a 7 on a scale of 0-10. He does not appear to have any signs of delusions. Disposition BEHAVIOR: Nain is laying down when this clinician and another clinician arrive. He sits up to talk and shares that he is anxious about whats going to happen. It appears that he trys to fight back tears as he shares this. He is cooperative and respectful. EYE CONTACT: Nain's eye contact is normal. MOOD: his mood appears depressed and anxious. AFFECT: Nain's affect appears sad and anxious. APPETITE: Nain has eaten about 1/2 of his breakfast. He reports having an upset stomach and likely due to his anxiety. SLEEP(trouble falling/staying asleep: Nain reported he slept okay. Plan [facility] will continue to seek a voluntary placement until found. Signature Clinician's Name/Title: Merline Hamm MS, [facility] Emergency Services Clinician
--- NOTE | 2019-10-18 14:26 | NUR.NOTE ---
Nursing Note: Patient requested Pain meds for his headache RN was notified VIA Radio.
--- NOTE | 2019-10-18 14:33 | W.PM.PROGNOT ---
Date of Service Date of service: 10/18/19 Time of Service: 14:33 Assessment and Plan Assessment and plan (1) Suicidal ideation: Status: Acute Assessment and plan: patient with suicidal ideation with plan and lethal means as he plans to shoot himself and has purchased a gun recently. mental health following and is being admitted pending inpatient psychiatric bed availability for management of major depression with suicidal ideation. He is medically cleared. He will be maintained on suicidal precautions Covid 19 testing negative, routine admission surveillance. (2) Bipolar disorder, manic: Status: Acute Assessment and plan: continue home medications, currently depressed continue risperidone and lamotrigine. lamotrigine level pending (send out). (3) Hypothyroidism: Status: Chronic Assessment and plan: continue synthroid dosing. TSH 0.95 (4) Hyperlipidemia: Status: Chronic Assessment and plan: continue statin (5) Discharge planning issues: Status: Acute Assessment and plan: inpatient psychiatric treatment when bed available, case management and mental health following. case discussed with Dr Norris who is in agreement. Subjective Subjective Patient reports: no new complaints, tolerating liquids well, tolerating a regular diet and afebrile Interval history since last seen: medically stable, remains with suicidal ideation. has been cooperative with no behavioral issues Exam Const General: cooperative, comfortable, no acute distress and disheveled Nutritional Appearance: average body habitus Orientation: alert, awake and oriented x3 HENMT Head: normal to inspection, normocephalic and atraumatic Mouth: oral mucosae normal Resp Effort & Inspection: normal respiratory effort Auscultation: clear to auscultation bilaterally Cardio Rate: tachycardic Rhythm: regular rhythm Heart Sounds: no murmurs GI Inspection: normal to inspection Palpation: soft Auscultation: normal bowel sounds Skin General skin exam: no rashes or lesions noted Neuro General: patient alert, patient awake and patient oriented x3 Cranial Nerves: CN's II-XI intact bilaterally Cognition: normal cognition Speech: speech normal Gait: normal gait Motor: muscle tone normal throughout Extrem General: normal to inspection, full ROM and no pedal edema Psych Appearance: disheveled Mental Status: mental status grossly normal and other (depressed) Speech and Movement: speech and movement normal Mood: other (depressed) Affect: blunted Attitude: cooperative Thought Process: normal Thought Content: suicidality Insight: fair Judgment: fair Objective Objective Clinical Data: Vital Signs Temperature 37.0 C 08/13/20 08:09 Temperature Source Tympanic 10/18/19 08:09 Pulse 85 10/18/19 08:09 Pulse Rhythm Regular 10/17/19 23:40 Respiratory Rate 18 10/18/19 08:09 Respiratory Effort 10/17/19 23:40 Respiratory Depth Normal 10/17/19 23:40 Respiratory Pattern Normal 10/17/19 23:40 Blood Pressure 121/78 10/18/19 08:09 Pulse Oximetry 98 10/18/19 08:09 Oxygen Delivery Method Room Air 10/18/19 08:09 Oxygen Flow Rate 0 10/18/19 08:09 Pain Level 0 10/18/19 08:09 Intake & Output 10/17/19 10/18/19 10/18/19 23:59 11:59 23:59 Intake Total 450 / 450 Balance 450 / 450 Weight 81.647 kg Intake: Oral 450 / 450 Laboratory Results WBC 7.27 10^3/uL (4.4-10.8) 10/17/19 12:36 RBC 4.29 10^6/uL (4.36-5.78) L 10/17/19 12:36 Hgb 13.6 g/dL (13.5-17.5) 10/17/19 12:36 Hct 40.3 % (40.0-50.0) 10/17/19 12:36 MCV 93.9 fL (80-95) 10/17/19 12:36 MCH 31.7 pg (27.0-33.0) 10/17/19 12:36 MCHC 33.7 % (32.0-36.0) 10/17/19 12:36 RDW 13.0 % (11.8-14.1) 10/17/19 12:36 Plt Count 261 10^3/uL (130-400) 10/17/19 12:36 MPV 8.8 fL (8.0-11.0) 10/17/19 12:36 Immature Gran % 0.6 10/17/19 12:36 Neutrophils % 71.7 10/17/19 12:36 Lymphocytes % 18.2 10/17/19 12:36 Monocytes % 8.4 10/17/19 12:36 Eosinophils % 0.8 10/17/19 12:36 Basophils % 0.3 10/17/19 12:36 Absolute Neutrophils 5.22 10^3/uL (1.2-6.7) 10/17/19 12:36 Absolute Lymphocytes 1.32 10^3/uL (1.2-3.4) 10/17/19 12:36 Absolute Monocytes 0.61 10^3/uL (0.1-0.8) 10/17/19 12:36 Absolute Eosinophils 0.06 10^3/uL (0.0-0.7) 10/17/19 12:36 Absolute Basophils 0.02 10^3/uL (0.0-0.2) 10/17/19 12:36 Sodium 140 mmol/L (136-145) 10/17/19 12:36 Potassium 3.7 mmol/L (3.5-5.1) 10/17/19 12:36 Chloride 104 mmol/L (98-107) 10/17/19 12:36 Carbon Dioxide 27.9 mmol/L (21.0-32.0) 10/17/19 12:36 Anion Gap 8.1 mmol/L (3-11) 10/17/19 12:36 BUN 17 mg/dL (7-18) 10/17/19 12:36 Creatinine 1.01 mg/dL (0.70-1.30) 10/17/19 12:36 Estimated GFR/1.73 m2 >= 60.00 (mL/min/1.73m2) 10/17/19 12:36 Glucose 164 mg/dL (74-106) H 10/17/19 12:36 Calcium 8.8 mg/dL (8.5-10.1) 10/17/19 12:36 Total Bilirubin 0.3 mg/dL (0.2-1.0) 10/17/19 12:36 AST 20 U/L (15-37) 10/17/19 12:36 ALT 44 U/L (16-63) 10/17/19 12:36 Alkaline Phosphatase 64 U/L (46-116) 10/17/19 12:36 Total Protein 7.7 g/dL (6.4-8.2) 10/17/19 12:36 Albumin 4.1 g/dL (3.4-5.0) 10/17/19 12:36 TSH 0.95 uIU/mL (0.36-3.74) 10/17/19 12:36 Urine Opiates Screen Negative (Negative) 10/17/19 12:25 Urine Methadone Screen Negative (Negative) 10/17/19 12:25 Ur Barbiturates Screen Negative (Negative) 10/17/19 12:25 Ur Tricyclics Screen Negative (Negative) 10/17/19 12:25 Ur Amphetamines Screen Negative (Negative) 10/17/19 12:25 U Benzodiazepines Scrn Negative (Negative) 10/17/19 12:25 Urine Cocaine Screen Negative (Negative) 10/17/19 12:25 Ur THC Screen Negative (Negative) 10/17/19 12:25 Ethyl Alcohol < 3.0 mg/dL (<3) 10/17/19 12:36 COVID-19 PCR Negative (Negative) 10/17/19 15:50 Nasopharyn COVID-19 PCR Not Applicable 10/17/19 15:50 Ref Test Perform Site [facility] lab 10/17/19 15:50
[2019-10-18] MEDS: Acetaminophen 325 MG TAB 650 MG PO (14:39)
[2019-10-18 16:50] VITALS: BP 126/76; PULSE 79; RESP 16; TEMP 36.6; O2SAT 94
[2019-10-18] MEDS: Pravastatin 20 MG TAB 40 MG PO (20:16)
[2019-10-18] MEDS: Mirtazapine 15 MG TAB 60 MG PO (21:33)
[2019-10-18] MEDS: Melatonin 3 MG TAB 6 MG PO (21:33)
[2019-10-19] MEDS: Levothyroxine 75 MCG TAB PO (05:55)
[2019-10-19] MEDS: risperiDONE 1 MG TAB 2 MG PO (09:28)
[2019-10-19] MEDS: lamoTRIgine 100 MG TAB 200 MG PO (09:28)
--- NOTE | 2019-10-19 09:43 | MHPN_ITS ---
Date of service: 10/19/19 Time of Service: 09:43 Mental Health Crisis Note Presenting Issue How did you arrive at the ED and why did you come: Nain drove to the ER two days ago after his PMHNP strongly encouraged him when he disclosed SI wiht plan, intent, attempt and means. Precipitating Factors Nain has been thinking of other ways to commit suicide and today he shared that he was thinking about stepping in front of a car. He is not showing any signs of delusions. He reports he has been struggling with SI for months but it has become increasingly more intense as time has gone by. Disposition BEHAVIOR: Nain is described to be calm and appropriate. He took a shower this am and has taken all of his meds. He sits up when the computer is brought in and engages with the interview. EYE CONTACT: Nain makes good eye contact. MOOD: Nain reports his mood is so-so. He presents as significantly depressed and tired. AFFECT: Nain's affect mimics his mood. APPETITE: Nain reported he is eating a little. SLEEP(trouble falling/staying asleep: Nain reported he slept okay. Plan Nain will remain at [facility] pending an admission to a psychiatric facility. He does wish to go to [facility] as this is where he has been in the past. We explain that we will call however, bed availability is limited right now. Signature Clinician's Name/Title: Merline Hamm MS, [facility] Emergency Services Clinician
--- NOTE | 2019-10-19 11:08 | PHA.REVIEW ---
Pharmacy Admission Review - Admission Clinical Review (Last Reviewed 07/26/19 @ 10:59 by Melissa Domingo MD) Suicide ideation (Acute) Suicidal ideation (Acute) Bipolar disorder, manic (Acute) Discharge planning issues (Acute) No Known Allergies Allergy (Unverified 07/26/19 10:49) Height 27 in Weight 81.647 kg - Renal Dosing Renal Dosing: BUN 17 mg/dL (7-18) 10/17/19 12:36 Creatinine 1.01 mg/dL (0.70-1.30) 10/17/19 12:36 Medications needing adjustments: Reviewed - Anticoagulation Anticoagulation: Hgb 13.6 g/dL (13.5-17.5) 10/17/19 12:36 Hct 40.3 % (40.0-50.0) 10/17/19 12:36 Plt Count 261 10^3/uL (130-400) 10/17/19 12:36 Creatinine 1.01 mg/dL (0.70-1.30) 10/17/19 12:36 DVT Prohphylaxis: N/A Therapeutic Anticoagulation: N/A - Opiate Usage Evaluate Pain Scale/Pains Meds: N/A - Relevant Labs Sodium 140 mmol/L (136-145) 10/17/19 12:36 Potassium 3.7 mmol/L (3.5-5.1) 10/17/19 12:36 Chloride 104 mmol/L (98-107) 10/17/19 12:36 Electrolytes, C-Reactive P, ESR: Reviewed - DM Control DM Control: Glucose 164 mg/dL (74-106) H 10/17/19 12:36 Insulin Dosing: Reviewed - Heart Failure/IN EF%, SUZETTE's, B-Blockers, Diuretics: N/A - BP Control If elevated: N/A - Qtc Review If Elevated: N/A - IV to PO Switch IV Medications: N/A - Home Meds Home Med List reviewed: Intervened (clarified doses and timing with provider's office and pharmacy) - Current meds Current Medication Order Review: Reviewed - Comments Comments/Follow Ups: Patient's psychiatrist was consulted yesterday and made some med recommendations -- watch for changes
[2019-10-19 13:13] VITALS: BP 99/64; PULSE 89; RESP 20; TEMP 36.7; O2SAT 96
--- NOTE | 2019-10-19 14:20 | W.PM.PROGNOT ---
Date of Service Date of service: 10/19/19 Time of Service: :20 Assessment and Plan Assessment and plan (1) Suicide ideation: Status: Acute Assessment and plan: With plan and means. He is a voluntary admission awaiting a bed at a psychiatric facility. Mental health is following. His desktop support consultant recently increased his Risperidone from 1 mg to 2 mg daily. She recommends increasing lamotrigine to 225 mg daily if his level does not come back elevated, it was a send out test. COVID test negative. He is medically cleared. Maintain suicide precautions with 1:1 patient observer. (2) Major depression: Status: Chronic Assessment and plan: With suicidal ideation as above. Continue current medications. (3) Bipolar disorder, manic: Status: Acute Assessment and plan: As above. Continue Lamotrigine and risperidone. (4) Prostate cancer: Status: Chronic Assessment and plan: Followed by Dr. Barillas, oncology and Dr. Curran. PSA remains low per Dr. Curran's most recent note 09/20/19. He has completed 3 years of lupron. (5) Hyperlipidemia: Status: Chronic Assessment and plan: Continue Statin. (6) Hypothyroidism: Status: Chronic Assessment and plan: TSH 0.95, continue current Synthroid dose. (7) Drug-induced tremor: Status: Acute Assessment and plan: Continue benztropine. (8) Discharge planning issues: Status: Acute Assessment and plan: Transfer to inpatient psychiatric facility when a bed becomes available. Subjective Subjective Interval history since last seen: Nain Mckeon is a pleasant 69 year old man with a long history of depression, followed by Shakila Hicks, desktop support consultant. Shakila directed him to go to the ED when she found that he was suicidal and had a loaded gun in his home. He is awaiting placement at a psychaitric hospital. He reports that he continues to feel suicidal today. He did not articulate his plan to me. He told care management that he wanted to jump in front of a car. He is eating small amounts. He denies pain, SOB, coughing, wheezing, CP/pressure, abdominal pain, nausea or vomiting. His bowel and bladder are functioning well. Dr. Macias spoke with Shakila Hicks today who reports that she recently increased his Risperidone from 1mg to 2 mg daily, she does not expect that the dose increase has taken effect yet. She offered the recommendation of increasing his Lamotrigine to 225 mg daily if his level comes back OK. Lamotrigine level pending (send out lab). Exam Narrative Exam Narrative: General: 69 year old man, appears younger than stated age, laying in bed awake. Answers questions appropriately. HEENT: normocephalic, atraumatic, pupils equal and round, EOMI, mucous membranes moist. Neck: supple. Cardiovascular: heart has regular rate and rhythm, no murmur appreciated. Respiratory: respirations appear even and unlabored, lung sounds clear throughout. GI: + bowel sounds, abdomen soft, nontender on palpation, nondistended. Extremities: +tremor to RUE, moves around freely in bed, no edema. Objective Objective Clinical Data: Vital Signs Temperature 36.7 C 10/19/19 13:13 Temperature Source Tympanic 10/19/19 13:13 Pulse 89 10/19/19 13:13 Pulse Rhythm Regular 10/18/19 20:15 Respiratory Rate 20 10/19/19 13:13 Respiratory Effort Non-Labored 10/18/19 20:15 Respiratory Depth Normal 10/18/19 20:15 Respiratory Pattern Normal 10/18/19 20:15 Blood Pressure 99/64 L 10/19/19 13:13 Pulse Oximetry 96 10/19/19 13:13 Oxygen Delivery Method Room Air 10/19/19 13:13 Oxygen Flow Rate 0 10/19/19 13:13 Pain Level 0 10/19/19 13:13 Intake & Output 10/18/19 10/19/19 10/19/19 23:59 11:59 23:59 Intake Total 690 / 690 360 / 360 Balance 690 / 690 360 / 360 Intake: Oral 690 / 690 360 / 360 Other: Comment using BR independently throughout shift Pt voids independently into the toilet. Voiding Methods Toilet Laboratory Results WBC 7.27 10^3/uL (4.4-10.8) 10/17/19 12:36 RBC 4.29 10^6/uL (4.36-5.78) L 10/17/19 12:36 Hgb 13.6 g/dL (13.5-17.5) 10/17/19 12:36 Hct 40.3 % (40.0-50.0) 10/17/19 12:36 MCV 93.9 fL (80-95) 10/17/19 12:36 MCH 31.7 pg (27.0-33.0) 10/17/19 12:36 MCHC 33.7 % (32.0-36.0) 10/17/19 12:36 RDW 13.0 % (11.8-14.1) 10/17/19 12:36 Plt Count 261 10^3/uL (130-400) 10/17/19 12:36 MPV 8.8 fL (8.0-11.0) 10/17/19 12:36 Immature Gran % 0.6 10/17/19 12:36 Neutrophils % 71.7 10/17/19 12:36 Lymphocytes % 18.2 10/17/19 12:36 Monocytes % 8.4 10/17/19 12:36 Eosinophils % 0.8 10/17/19 12:36 Basophils % 0.3 10/17/19 12:36 Absolute Neutrophils 5.22 10^3/uL (1.2-6.7) 10/17/19 12:36 Absolute Lymphocytes 1.32 10^3/uL (1.2-3.4) 10/17/19 12:36 Absolute Monocytes 0.61 10^3/uL (0.1-0.8) 10/17/19 12:36 Absolute Eosinophils 0.06 10^3/uL (0.0-0.7) 10/17/19 12:36 Absolute Basophils 0.02 10^3/uL (0.0-0.2) 10/17/19 12:36 Sodium 140 mmol/L (136-145) 10/17/19 12:36 Potassium 3.7 mmol/L (3.5-5.1) 10/17/19 12:36 Chloride 104 mmol/L (98-107) 10/17/19 12:36 Carbon Dioxide 27.9 mmol/L (21.0-32.0) 10/17/19 12:36 Anion Gap 8.1 mmol/L (3-11) 10/17/19 12:36 BUN 17 mg/dL (7-18) 10/17/19 12:36 Creatinine 1.01 mg/dL (0.70-1.30) 10/17/19 12:36 Estimated GFR/1.73 m2 >= 60.00 (mL/min/1.73m2) 10/17/19 12:36 Glucose 164 mg/dL (74-106) H 10/17/19 12:36 Calcium 8.8 mg/dL (8.5-10.1) 10/17/19 12:36 Total Bilirubin 0.3 mg/dL (0.2-1.0) 10/17/19 12:36 AST 20 U/L (15-37) 10/17/19 12:36 ALT 44 U/L (16-63) 10/17/19 12:36 Alkaline Phosphatase 64 U/L (46-116) 10/17/19 12:36 Total Protein 7.7 g/dL (6.4-8.2) 10/17/19 12:36 Albumin 4.1 g/dL (3.4-5.0) 10/17/19 12:36 TSH 0.95 uIU/mL (0.36-3.74) 10/17/19 12:36 Urine Opiates Screen Negative (Negative) 10/17/19 12:25 Urine Methadone Screen Negative (Negative) 10/17/19 12:25 Ur Barbiturates Screen Negative (Negative) 10/17/19 12:25 Ur Tricyclics Screen Negative (Negative) 10/17/19 12:25 Ur Amphetamines Screen Negative (Negative) 10/17/19 12:25 U Benzodiazepines Scrn Negative (Negative) 10/17/19 12:25 Urine Cocaine Screen Negative (Negative) 10/17/19 12:25 Ur THC Screen Negative (Negative) 10/17/19 12:25 Ethyl Alcohol < 3.0 mg/dL (<3) 10/17/19 12:36 COVID-19 PCR Negative (Negative) 10/17/19 15:50 Nasopharyn COVID-19 PCR Not Applicable 10/17/19 15:50 Ref Test Perform Site [facility] 10/17/19 15:50
--- NOTE | 2019-10-19 16:11 | CMSP_ITS ---
- If Service Date Differs Date of service: 10/19/19 Time of Service: 16:11 Care Management Safety Plan Nain continues to voluntarily seek placement for inpatient psychiatric treatment for his SI, which he rates at an 8/9 out of 10. CM offered cart items to help keep him more comfortable while awaiting a bed offer, which he declined. Per RN, he feels that his support system is crumbling. CM spoke to his today who is very concerned about him, and wants to be updated on his status. CM facilitated a zoom call with [facility] this morning, during which he was cooperative and engaged with the mental health crisis screener. Per Thor [facility], there are no beds available today. CM will continue to follow and support patient and staff with discharge planning considerations. VOLUNTARY FOR INPATIENT PSYCHIATRIC STABILIZATION. Patient is appropriate in all interactions since arriving at [facility]; Pt has demonstrated appropriate coping and communication skills, has articulated his or her needs and concerns and is fully engaged during staff interactions. Safety plan has been established with patient, and care team, to adhere to patient goals, identify restrictions based on behavioral status, address nutrition, and determine allowed personal belongings, tools for hygiene and personal care. Determine level of activity including ambulation, level of supervision, visitors, and determine privileges based on behaviors and level of engagement by pt. SAFETY PLAN: 1. Will remain on suicide precautions. In Paper Clothes 2. Will remain in room under direct supervision of one-on-one staff at all times provided by [employer]; NEFTALI, ENROLLMENT SERVICES VICE PRESIDENT motorcycle builder. 3. May have paper cups, plates, finger foods as well as a cardboard spoon with which to eat meals. 4. Follow [facility] Management of the Admitted Behavioral Health Patient policy. 5. Shower permitted with escort per RN discretion. 6. No personal belongings at this time. 7. No visitors permitted at this time. 8. Activities: television and remote, adult coloring, crayons, reading materials 9. Bathroom available in the room without limitation. 10. Phone: Permitted incoming/outgoing calls with facilitation and supervision 11. Due to VOLUNTARY status, if patient wishes to leave [facility], the [facility] lock up worker must be contacted to re-evaluate patient prior to patient exiting the building. Patient is currently voluntarily at [facility] and seeking inpatient admission when a bed becomes available. [facility] Frontline Director Biology will continue seeking placement. Please contact the Wringer And Setter Manager Customs ([phone]) and [facility] Director Biology ([phone]) for any needed changes in the Safety Plan. Safety plan has been provided to interdepartmental care team.
--- NOTE | 2019-10-19 16:16 | CMPROGNOTE_ITS ---
- If Service Date Differs Date of service: 10/19/19 Time of Service: 16:16 Care Management Progress Note S/O: Nain continues to voluntarily seek placement for inpatient psychiatric treatment for his SI, which he rates at an 8/9 out of 10. CM offered cart items to help keep him more comfortable while awaiting a bed offer, which he declined. Per RN, he feels that his support system is crumbling. CM spoke to his today who is very concerned about him, and wants to be updated on his status. DAVID facilitated a zoom call with [facility] this morning, during which he was cooperative and engaged with the mental health crisis screener. Per CHETAN Mcrae, there are no beds available today. CM will continue to follow and support patient and staff with discharge planning considerations. A: Nain is a 69 year old male admitted to [facility] with SI on 10/17/19. P: CM and [facility] continue to seek placement for Nain in an inpatient psychiatric facility for stabilization and support. He will transport via [facility] when accepted, coordinated by DAVID. [facility] will continue to meet with Nain via Zoom daily. will update Nain's daily with his status, and will inform her once he is accepted and transitioning to a facility. CM will continue to follow.
[2019-10-19] MEDS: Pravastatin 20 MG TAB 40 MG PO (19:33)
[2019-10-19] MEDS: Mirtazapine 15 MG TAB 60 MG PO (21:50)
[2019-10-19] MEDS: Melatonin 3 MG TAB 6 MG PO (21:50)
[2019-10-20] MEDS: Levothyroxine 75 MCG TAB PO (06:32)
[2019-10-20] MEDS: lamoTRIgine 100 MG TAB 200 MG PO (08:14)
[2019-10-20] MEDS: risperiDONE 1 MG TAB 2 MG PO ×2 (08:14→10:10)
--- NOTE | 2019-10-20 09:40 | W.PM.PROGNOT ---
Date of Service Date of service: 10/20/19 Time of Service: 09:42 Assessment and Plan Assessment and plan (1) Suicide ideation: Status: Acute Assessment and plan: With plan and means. He is a voluntary admission awaiting a bed at a psychiatric facility. Mental health is following. His account development representative called in and made recommendations for medication adjustments. Will increase his Risperidone from 2mg to 4 mg daily. His Lamotrigine level came back within the normal range at 4 (nomal range 2.5-15). Increase Lamotrigine to 225 mg per day. COVID test negative. He is medically cleared. Maintain suicide precautions with 1:1 patient observer. Transfer to psychiatric facility when a bed becomes available. (2) Major depression: Status: Chronic Assessment and plan: With suicidal ideation as above. (3) Bipolar disorder, manic: Status: Acute Assessment and plan: As above. Continue Lamotrigine and risperidone at increased doses. (4) Prostate cancer: Status: Chronic Assessment and plan: Followed by Dr. Barillas, oncology and Dr. Curran. PSA remains low per Dr. Curran's most recent note 09/20/19. He has completed 3 years of lupron. (5) Hyperlipidemia: Status: Chronic Assessment and plan: Continue Statin. (6) Hypothyroidism: Status: Chronic Assessment and plan: TSH 0.95, continue current Synthroid dose. (7) Drug-induced tremor: Status: Acute Assessment and plan: Continue benztropine. (8) Discharge planning issues: Status: Acute Assessment and plan: Transfer to inpatient psychiatric facility when a bed becomes available. Subjective Subjective Interval history since last seen: Nain Mckeon is a pleasant 69 year old man with a long history of depression and bipolar disorder, followed by Shakila Hicks, account development representative. Shakila directed him to go to the ED when she found that he was suicidal and had a loaded gun in his home. He reports that he continues to feel suicidal, he feels safe here. He has articulated plans to shoot himself and to jump in front of a car. He is in agreement with transfer to a psychiatric hospital when a bed becomes available. He reports that he got some sleep last night, he cannot say that he slept well. He is eating small amounts. He is drinking fluids. He has been laying in bed. He denies pain, SOB, coughing, wheezing, CP/pressure, abdominal pain, nausea or vomiting. His bowel and bladder are functioning well. His account development representative called in to check on him again today. She suggested that his risperidone be increased from 2 mg to 4 mg daily since he remains profoundly depressed. She also recommended that his Lamotrigine be increased to 225 mg daily if his lamotrigine level is not elevated. Exam Narrative Exam Narrative: General: 69 year old man, appears younger than stated age, laying in bed, awake. Answers questions appropriately. HEENT: normocephalic, atraumatic, pupils equal and round, makes good eye contact, EOMI, mucous membranes moist. Neck: supple. Cardiovascular: heart has regular rate and rhythm, no murmur appreciated. Respiratory: respirations appear even and unlabored, lung sounds clear throughout. GI: + bowel sounds, abdomen soft, nontender on palpation, nondistended. Extremities: +tremor to RUE, moves around freely in bed, no edema. Objective Objective Clinical Data: Vital Signs Temperature 36.7 C 10/19/19 13:13 Temperature Source Tympanic 10/19/19 13:13 Pulse 89 10/19/19 13:13 Pulse Rhythm Regular 10/19/19 19:44 Respiratory Rate 20 10/19/19 13:13 Respiratory Effort Non-Labored 10/19/19 19:44 Respiratory Depth Normal 10/19/19 19:44 Respiratory Pattern Normal 10/19/19 19:44 Blood Pressure 99/64 L 10/19/19 13:13 Pulse Oximetry 96 10/19/19 13:13 Oxygen Delivery Method Room Air 10/19/19 13:13 Oxygen Flow Rate 0 10/19/19 13:13 Pain Level 0 10/19/19 13:13 Intake & Output 10/19/19 10/19/19 10/20/19 11:59 23:59 11:59 Intake Total 360 / 360 Balance 360 / 360 Intake: Oral 360 / 360 Other: Urine Color Pale Yellow Urine Appearance Clear Urine Odor None Comment Pt voids independently into the toilet. up independently Voiding Methods Toilet Toilet Laboratory Results WBC 7.27 10^3/uL (4.4-10.8) 10/17/19 12:36 RBC 4.29 10^6/uL (4.36-5.78) L 10/17/19 12:36 Hgb 13.6 g/dL (13.5-17.5) 10/17/19 12:36 Hct 40.3 % (40.0-50.0) 10/17/19 12:36 MCV 93.9 fL (80-95) 10/17/19 12:36 MCH 31.7 pg (27.0-33.0) 10/17/19 12:36 MCHC 33.7 % (32.0-36.0) 10/17/19 12:36 RDW 13.0 % (11.8-14.1) 10/17/19 12:36 Plt Count 261 10^3/uL (130-400) 10/17/19 12:36 MPV 8.8 fL (8.0-11.0) 10/17/19 12:36 Immature Gran % 0.6 10/17/19 12:36 Neutrophils % 71.7 10/17/19 12:36 Lymphocytes % 18.2 10/17/19 12:36 Monocytes % 8.4 10/17/19 12:36 Eosinophils % 0.8 10/17/19 12:36 Basophils % 0.3 10/17/19 12:36 Absolute Neutrophils 5.22 10^3/uL (1.2-6.7) 10/17/19 12:36 Absolute Lymphocytes 1.32 10^3/uL (1.2-3.4) 10/17/19 12:36 Absolute Monocytes 0.61 10^3/uL (0.1-0.8) 10/17/19 12:36 Absolute Eosinophils 0.06 10^3/uL (0.0-0.7) 10/17/19 12:36 Absolute Basophils 0.02 10^3/uL (0.0-0.2) 10/17/19 12:36 Sodium 140 mmol/L (136-145) 10/17/19 12:36 Potassium 3.7 mmol/L (3.5-5.1) 10/17/19 12:36 Chloride 104 mmol/L (98-107) 10/17/19 12:36 Carbon Dioxide 27.9 mmol/L (21.0-32.0) 10/17/19 12:36 Anion Gap 8.1 mmol/L (3-11) 10/17/19 12:36 BUN 17 mg/dL (7-18) 10/17/19 12:36 Creatinine 1.01 mg/dL (0.70-1.30) 10/17/19 12:36 Estimated GFR/1.73 m2 >= 60.00 (mL/min/1.73m2) 10/17/19 12:36 Glucose 164 mg/dL (74-106) H 10/17/19 12:36 Calcium 8.8 mg/dL (8.5-10.1) 10/17/19 12:36 Total Bilirubin 0.3 mg/dL (0.2-1.0) 10/17/19 12:36 AST 20 U/L (15-37) 10/17/19 12:36 ALT 44 U/L (16-63) 10/17/19 12:36 Alkaline Phosphatase 64 U/L (46-116) 10/17/19 12:36 Total Protein 7.7 g/dL (6.4-8.2) 10/17/19 12:36 Albumin 4.1 g/dL (3.4-5.0) 10/17/19 12:36 TSH 0.95 uIU/mL (0.36-3.74) 10/17/19 12:36 Urine Opiates Screen Negative (Negative) 10/17/19 12:25 Urine Methadone Screen Negative (Negative) 10/17/19 12:25 Ur Barbiturates Screen Negative (Negative) 10/17/19 12:25 Lamotrigine 4.0 mcg/mL (2.5 - 15.0) 10/17/19 12:36 Ur Tricyclics Screen Negative (Negative) 10/17/19 12:25 Ur Amphetamines Screen Negative (Negative) 10/17/19 12:25 U Benzodiazepines Scrn Negative (Negative) 10/17/19 12:25 Urine Cocaine Screen Negative (Negative) 10/17/19 12:25 Ur THC Screen Negative (Negative) 10/17/19 12:25 Ethyl Alcohol < 3.0 mg/dL (<3) 10/17/19 12:36 COVID-19 PCR Negative (Negative) 10/17/19 15:50 Nasopharyn COVID-19 PCR Not Applicable 10/17/19 15:50 Ref Test Perform Site [facility] 10/17/19 15:50
--- NOTE | 2019-10-20 12:19 | W.INMHPGNOTE ---
Date of service: 10/20/19 Time of Service: 11:35 Mental Health Crisis Note Presenting Issue How did you arrive at the ED and why did you come: Patient is waiting at [facility] in mental health bed awaiting placement in a psychiatric facility for suidial ideationn. Precipitating Factors Patient is just waking up , h e is polite and cooperative. Today his level of SI is an 8 on a scale of 0-10. He thinks things are much the same as when he arrived a few days ago. Disposition BEHAVIOR: He is calm and cooperative EYE CONTACT: This is a zoom visit and he fixes his eye on the screen. MOOD: His mood is depressed. AFFECT: His affect is flat. APPETITE: He reports he is eating meals but sometimes skips one. SLEEP(trouble falling/staying asleep: His sleep is aided with melatonin. Plan Contineu to seek placement in psychiatric facility. He has been [facility] to [facility] and [facility] All are full and review his case when there are openings. [facility] also is not taking any patients today. Signature Clinician's Name/Title: Katlyn Thompson, [facility] Emergency Services Clinician
--- NOTE | 2019-10-20 13:47 | CMPROGNOTE_ITS ---
- If Service Date Differs Date of service: 10/20/19 Time of Service: 13:47 Care Management Progress Note S/O: Nain continues to seek placement for inpatient psychiatric treatment for depression, hopelessness and suicidal ideation. He has been cooperative but does not fully engage with staff. Nain has been sleeping much of the time, or just lies in bed. He verbalizes no interest in television or any activities. facilitated a zoom meeting with Katlyn [facility] screener, and Nain informed her that his hopelessness and suicidal ideation remains at an 8 or 9 out of ten. He did state that he does not feel it is any worse. When she questioned about support from his , nain stated that she was really angry with him right now, but did not elaborate. He is eating and sleeping adequately. There are no inpatient beds available in the [facility] at this time. A: Nain is a 69 year old male admitted to [facility] with SI on 10/17/19. P: and [facility] continue to seek placement for Nian in an inpatient psychiatric facility for stabilization and support. He will transport via [employer] when acce pted, coordinated by CM. [facility] will continue to meet with Nain via Zoom daily. will update Nain's daily with his status, and will inform her once he is accepted and transitioning to a facility. CM will continue to follow. VOLUNTARY FOR INPATIENT PSYCHIATRIC STABILIZATION. Patient is appropriate in all interactions since arriving at [facility]; Pt has demonstrated appropriate coping and communication skills, has articulated his or her needs and concerns and is fully engaged during staff interactions. Safety plan has been established with patient, and care team, to adhere to patient goals, identify restrictions based on behavioral status, address nutrition, and determine allowed personal belongings, tools for hygiene and personal care. Determine level of activity including ambulation, level of supervision, visitors, and determine privileges based on behaviors and level of engagement by pt. SAFETY PLAN: 1. Will remain on suicide precautions. In Paper Clothes 2. Will remain in room under direct supervision of one-on-one staff at all times provided by [employer]; NEFTALI, ASSISTANT PORTFOLIO MANAGER mainframe systems administrator. 3. May have paper cups, plates, finger foods as well as a cardboard spoon with which to eat meals. 4. Follow [facility] Management of the Admitted Behavioral Health Patient policy. 5. Shower permitted with escort per RN discretion. 6. No personal belongings at this time. 7. No visitors permitted at this time. 8. Activities: television , adult coloring, crayons, reading materials 9. Bathroom available in the room without limitation. 10. Phone: Permitted incoming/outgoing calls with facilitation and supervision 11. Due to VOLUNTARY status, if patient wishes to leave [facility], the [facility] lithopone mill worker must be contacted to re-evaluate patient prior to patient exiting the building. Patient is currently voluntarily at [facility] and seeking inpatient admission when a bed becomes available. [facility] Frontline Furniture Reproducer will continue seeking placement. Please contact the Tanker Service Attendant Lamination Technician ([phone]) and [facility] Furniture Reproducer ([phone]) for any needed changes in the Safety Plan. Safety plan has been provided to interdepartmental care team.
--- NOTE | 2019-10-20 13:58 | CMSP_ITS ---
- If Service Date Differs Date of service: 10/20/19 Time of Service: 13:58 Care Management Safety Plan VOLUNTARY FOR INPATIENT PSYCHIATRIC STABILIZATION. Patient is appropriate in all interactions since arriving at [facility]; Pt has demonstrated appropriate coping and communication skills, has articulated his or her needs and concerns and is fully engaged during staff interactions. Safety plan has been established with patient, and care team, to adhere to patient goals, identify restrictions based on behavioral status, address nutrition, and determine allowed personal belongings, tools for hygiene and personal care. Determine level of activity including ambulation, level of supervision, visitors, and determine privileges based on behaviors and level of engagement by pt. SAFETY PLAN: 1. Will remain on suicide precautions. In Paper Clothes 2. Will remain in room under direct supervision of one-on-one staff at all times provided by [employer]; NEFTALI, POLICE CRIME SCENE TECHNICIAN organ builder. 3. May have paper cups, plates, finger foods as well as a cardboard spoon with which to eat meals. 4. Follow [facility] Management of the Admitted Behavioral Health Patient policy. 5. Shower permitted with escort per RN discretion. 6. No personal belongings at this time. 7. No visitors permitted at this time. 8. Activities: television, adult coloring, crayons, reading materials 9. Bathroom available in the room without limitation. 10. Phone: Permitted incoming/outgoing calls with facilitation and supervision 11. Due to VOLUNTARY status, if patient wishes to leave [facility], the [facility] harvest worker field crop must be contacted to re-evaluate patient prior to patient exiting the building. Patient is currently voluntarily at [facility] and seeking inpatient admission when a bed becomes available. [facility] Frontline Import Coordinator will continue seeking place ent. Please contact the Laborer Prestressed Concrete Manager Loan ([phone]) and [facility] Import Coordinator ([phone]) for any needed changes in the Safety Plan. Safety plan has been provided to interdepartmental care team.
[2019-10-20 15:20] VITALS: BP 90/59; PULSE 89; RESP 18; TEMP 36.8; O2SAT 95
[2019-10-20] MEDS: Pravastatin 20 MG TAB 40 MG PO (20:49)
[2019-10-20] MEDS: Melatonin 3 MG TAB 6 MG PO (21:20)
[2019-10-20] MEDS: Mirtazapine 15 MG TAB 60 MG PO (21:20)
[2019-10-20 22:13] VITALS: BP 128/82
[2019-10-21] MEDS: Levothyroxine 75 MCG TAB PO (06:24)
[2019-10-21] MEDS: lamoTRIgine 100 MG TAB 200 MG PO (08:34)
[2019-10-21] MEDS: risperiDONE 1 MG TAB 4 MG PO (08:34)
[2019-10-21] MEDS: lamoTRIgine 25 MG TAB PO (08:34)
--- NOTE | 2019-10-21 09:31 | PGE_ITS ---
Date of Service Date of service: 10/21/19 Time of Service: 09:32 Assessment and Plan Assessment and plan (1) Suicidal ideation: Status: Acute Assessment and plan: patient with ongoing suicidal ideation with plan and lethal means as he plans to shoot himself and has purchased a gun recently. mental health following and is being admitted pending inpatient psychiatric bed availability for management of major depression with suicidal ideation. He is medically cleared. He will be maintained on suicidal precautions Covid 19 testing negative, routine admission surveillance. (2) Bipolar disorder, manic: Status: Acute Assessment and plan: continue home medications, currently depressed which has improved slightly since increasing risperidone to 4 mg and lamotrigine 225 mg. lamotrigine level 4.0. (3) Hypothyroidism: Status: Chronic Assessment and plan: continue synthroid dosing. TSH 0.95 (4) Hyperlipidemia: Status: Chronic Assessment and plan: continue statin (5) Discharge planning issues: Status: Acute Assessment and plan: inpatient psychiatric treatment when bed available, case management and mental health following. case discussed with Dr Macias who is in agreement. Subjective Subjective Patient reports: no new complaints, tolerating liquids well and tolerating a regular diet Interval history since last seen: period of sobbing today for about one hour, consoled and now in better spirits, reports improvement in depression symptoms since medication changes but reports he is still suicidal. making much better eye contact and interactive than he was on admission Exam Const General: cooperative, comfortable, no acute distress and disheveled Nutritional Appearance: average body habitus Orientation: alert, awake and oriented x3 HENMT Head: normal to inspection, normocephalic and atraumatic Mouth: oral mucosae normal Resp Effort & Inspection: normal respiratory effort Auscultation: clear to auscultation bilaterally Cardio Rate: tachycardic Rhythm: regular rhythm Heart Sounds: no murmurs GI Inspection: normal to inspection Palpation: soft Auscultation: normal bowel sounds Skin General skin exam: no rashes or lesions noted Neuro General: patient alert, patient awake and patient oriented x3 Cranial Nerves: CN's II-XI intact bilaterally Cognition: normal cognition Speech: speech normal Gait: normal gait Motor: muscle tone normal throughout Extrem General: normal to inspection, full ROM and no pedal edema Psych Appearance: disheveled Mental Status: mental status grossly normal Speech and Movement: speech and movement normal Mood: labile mood Affect: labile affect (was sobbing for about an hour, now appropriate) Attitude: cooperative Thought Process: normal Thought Content: suicidality Insight: fair Judgment: fair Objective Objective Clinical Data: Vital Signs Temperature 36.8 C 10/20/19 15:20 Temperature Source Tympanic 10/20/19 15:20 Pulse 89 10/20/19 15:20 Pulse Rhythm Regular 10/21/19 08:53 Respiratory Rate 18 10/20/19 15:20 Respiratory Effort Non-Labored 10/21/19 08:53 Respiratory Depth Normal 10/21/19 08:53 Respiratory Pattern Normal 10/21/19 08:53 Blood Pressure 128/82 10/20/19 22:13 Pulse Oximetry 95 10/20/19 15:20 Oxygen Delivery Method Nasal Cannula 10/20/19 15:20 Oxygen Flow Rate 0 10/20/19 15:20 Pain Level 0 10/20/19 15:20 Intake & Output 10/20/19 10/20/19 10/21/19 11:59 23:59 11:59 Intake Total 240 / 1220 980 / 1220 Balance 240 / 1220 980 / 1220 Intake: Oral 240 / 1220 980 / 1220 Other: Urine Appearance Clear Clear Voiding Methods Toilet Toilet Laboratory Results WBC 7.27 10^3/uL (4.4-10.8) 10/17/19 12:36 RBC 4.29 10^6/uL (4.36-5.78) L 10/17/19 12:36 Hgb 13.6 g/dL (13.5-17.5) 10/17/19 12:36 Hct 40.3 % (40.0-50.0) 10/17/19 12:36 MCV 93.9 fL (80-95) 10/17/19 12:36 MCH 31.7 pg (27.0-33.0) 10/17/19 12:36 MCHC 33.7 % (32.0-36.0) 10/17/19 12:36 RDW 13.0 % (11.8-14.1) 10/17/19 12:36 Plt Count 261 10^3/uL (130-400) 10/17/19 12:36 MPV 8.8 fL (8.0-11.0) 10/17/19 12:36 Immature Gran % 0.6 10/17/19 12:36 Neutrophils % 71.7 10/17/19 12:36 Lymphocytes % 18.2 10/17/19 12:36 Monocytes % 8.4 10/17/19 12:36 Eosinophils % 0.8 10/17/19 12:36 Basophils % 0.3 10/17/19 12:36 Absolute Neutrophils 5.22 10^3/uL (1.2-6.7) 10/17/19 12:36 Absolute Lymphocytes 1.32 10^3/uL (1.2-3.4) 10/17/19 12:36 Absolute Monocytes 0.61 10^3/uL (0.1-0.8) 10/17/19 12:36 Absolute Eosinophils 0.06 10^3/uL (0.0-0.7) 10/17/19 12:36 Absolute Basophils 0.02 10^3/uL (0.0-0.2) 10/17/19 12:36 Sodium 140 mmol/L (136-145) 10/17/19 12:36 Potassium 3.7 mmol/L (3.5-5.1) 10/17/19 12:36 Chloride 104 mmol/L (98-107) 10/17/19 12:36 Carbon Dioxide 27.9 mmol/L (21.0-32.0) 10/17/19 12:36 Anion Gap 8.1 mmol/L (3-11) 10/17/19 12:36 BUN 17 mg/dL (7-18) 10/17/19 12:36 Creatinine 1.01 mg/dL (0.70-1.30) 10/17/19 12:36 Estimated GFR/1.73 m2 >= 60.00 (mL/min/1.73m2) 10/17/19 12:36 Glucose 164 mg/dL (74-106) H 10/17/19 12:36 Calcium 8.8 mg/dL (8.5-10.1) 10/17/19 12:36 Total Bilirubin 0.3 mg/dL (0.2-1.0) 10/17/19 12:36 AST 20 U/L (15-37) 10/17/19 12:36 ALT 44 U/L (16-63) 10/17/19 12:36 Alkaline Phosphatase 64 U/L (46-116) 10/17/19 12:36 Total Protein 7.7 g/dL (6.4-8.2) 10/17/19 12:36 Albumin 4.1 g/dL (3.4-5.0) 10/17/19 12:36 TSH 0.95 uIU/mL (0.36-3.74) 10/17/19 12:36 Urine Opiates Screen Negative (Negative) 10/17/19 12:25 Urine Methadone Screen Negative (Negative) 10/17/19 12:25 Ur Barbiturates Screen Negative (Negative) 10/17/19 12:25 Lamotrigine 4.0 mcg/mL (2.5 - 15.0) 10/17/19 12:36 Ur Tricyclics Screen Negative (Negative) 10/17/19 12:25 Ur Amphetamines Screen Negative (Negative) 10/17/19 12:25 U Benzodiazepines Scrn Negative (Negative) 10/17/19 12:25 Urine Cocaine Screen Negative (Negative) 10/17/19 12:25 Ur THC Screen Negative (Negative) 10/17/19 12:25 Ethyl Alcohol < 3.0 mg/dL (<3) 10/17/19 12:36 COVID-19 PCR Negative (Negative) 10/17/19 15:50 Nasopharyn COVID-19 PCR Not Applicable 10/17/19 15:50 Ref Test [facility] 10/17/19 15:50
--- NOTE | 2019-10-21 12:32 | MHPN_ITS ---
Date of service: 10/21/19 Time of Service: 12:33 Mental Health Crisis Note Presenting Issue How did you arrive at the ED and why did you come: Patient has been waiting in mental health bed at [facility] for a placement to a psyhiatric facility. Today he meets with this clinician for a ZOOM follow up assessment while he waits. Precipitating Factors Patient is currently continuing to report SI and not wanting to live. He does not appear delusional . He has had an increase in medicaiton and seems a little better but is as he reports and 8 or 9 on the scale of 0-10 for suicidal thoughts and ideation. Disposition BEHAVIOR: He is very friendly and agreeable. EYE CONTACT: He is sttting up and focusing on the screen MOOD: He is depressed and hopelsess. AFFECT: Flat APPETITE: ate a little SLEEP(trouble falling/staying asleep: slept the night. Plan the plan is to continue to hold patient until a pspychiatric bed becomes available. Perhaps some arrangement for someone to talk to would be nice. Hospitals are still considering him for placement but there are no beds available today. [facility] and manager intern will follow up tomorrow morning. Signature Clinician's Name/Title: Katlyn Thompson [facility] Emergency Services Clinician
[2019-10-21 15:30] VITALS: BP 132/77; PULSE 85; RESP 18; TEMP 36.8; O2SAT 95
--- NOTE | 2019-10-21 17:15 | CMPROGNOTE_ITS ---
- If Service Date Differs Date of service: 10/21/19 Time of Service: 17:15 Care Management Progress Note S/O: Nain continues to await placement for inpatient psychiatric treatment for depression, hopelessness and suicidal ideation. He has been cooperative and pleasant but does not fully engage with staff. CM met with Nain several times today. He has been very tearful and expressed that he believes that his either has left him or is about to. He could not/would not articulate why he be lieves that to be the case. When asked if it was related to buying the gun and leaving it in the home, he began to cry again. Nain was able to identify happier times when queried by the [facility] screener Katlyn, which included when he and his were getting along better and when they used to travel together. Nain has 2 sons but admitted that he has not been in contact with them. Nain was provided with several books and a Time magazine which he requested. He was observed doing some reading and has watched a little tv, usually the news, he stated. Nain continues to rate his suicidal ideation and hopelessness as an 8-9 out of 10. DAVID again spoke with Evita, Nain's . She confirmed that finding that Nain brought a loaded gun into their home was the last straw. She talked at length about the 50 years they have been together and how difficult it has been for her to deal with his ongoing depression. She shared that Nain has periods of brayan, and when he does, he becomes nasty and verbally abusive to her. Neither of their sons will speak to Nain after a manic episode 2 years ago where he drained their bank accounts and was verbally abusive to Evita. Fortunately, Evita has a strong support system and sees a therapist. She also shared that she alone has always done everything in the home. She provides income, cleans, shops, cooks, pays the bills and maintains the household. Nain mows the lawn. She expressed her concern about his ability to manage on his own since he has been dependent on her for everything. She revealed that Nain's own family will not speak to him and that except for her, he is completely alone. His only other source of support is his dog. A: Nain is a 69 year old male admitted to [facility] with SI on 10/17/19. P: CM and [facility] continue to seek placement for Nain in an inpatient psychiatric facility for stabilization and support. He will transport via [employer] when accepted, coordinated by CM. [facility] will continue to meet with Nain via Zoom daily. will update Nain's daily with his status, and will inform her once he is accepted and transitioning to a facility. CM will continue to follow. VOLUNTARY FOR INPATIENT PSYCHIATRIC STABILIZATION. Patient is appropriate in all interactions since arriving at [facility]; Pt has demonstrated appropriate coping and communication skills, has articulated his or her needs and concerns and is fully engaged during staff interactions. Safety plan has been established with patient, and care team, to adhere to patient goals, identify restrictions based on behavioral status, address nutrition, and determine allowed personal belongings, tools for hygiene and personal care. Determine level of activity including ambulation, level of supervision, visitors, and determine privileges based on behaviors and level of engagement by pt. SAFETY PLAN: 1. Will remain on suicide precautions. In Paper Clothes 2. Will remain in room under direct supervision of one-on-one staff at all times provided by [employer]; NEFTALI, CASHIER PARKING LOT tube coremaker. 3. May have paper cups, plates, finger foods as well as a cardboard spoon with which to eat meals. 4. Follow [facility] Management of the Admitted Behavioral Health Patient policy. 5. Shower permitted with escort per RN discretion. 6. No personal belongings at this time. 7. No visitors permitted at this time. 8. Activities: television , adult coloring, crayons, reading materials 9. Bathroom available in the room without limitation. 10. Phone: Permitted incoming/outgoing calls with facilitation and supervision 11. Due to VOLUNTARY status, if patient wishes to leave [facility], the [facility] addiction social worker must be contacted to re-evaluate patient prior to patient exiting the building. Patient is currently voluntarily at [facility] and seeking inpatient admission when a bed becomes available. [facility] Frontline Cold Strip Roller will continue seeking placement. Please contact the Sloop Captain Manufacturing Automation Engineer ([phone]) and [facility] Cr amelia Worker ([phone]) for any needed changes in the Safety Plan. Safety plan has been provided to interdepartmental care team.
--- NOTE | 2019-10-21 17:33 | CMSP_ITS ---
- If Service Date Differs Date of service: 10/21/19 Time of Service: 17:33 Care Management Safety Plan VOLUNTARY FOR INPATIENT PSYCHIATRIC STABILIZATION. Patient is appropriate in all interactions since arriving at [facility]; Pt has demonstrated appropriate coping and communication skills, has articulated his or her needs and concerns and is fully engaged during staff interactions. Safety plan has been established with patient, and care team, to adhere to patient goals, identify restrictions based on behavioral status, address nutrition, and determine allowed personal belongings, tools for hygiene and personal care. Determine level of activity including ambulation, level of supervision, visitors, and determine privileges based on behaviors and level of engagement by pt. SAFETY PLAN: 1. Will remain on suicide precautions. In Paper Clothes 2. Will remain in room under direct supervision of one-on-one staff at all times provided by [employer]; NEFTALI, MANAGER PET retail coordinator. 3. May have paper cups, plates, finger foods as well as a cardboard spoon with which to eat meals. 4. Follow [facility] Management of the Admitted Behavioral Health Patient policy. 5. Shower permitted with escort per RN discretion. 6. No personal belongings at this time. 7. No visitors permitted at this time. 8. Activities: television, adult coloring, crayons, reading materials 9. Bathroom available in the room without limitation. 10. Phone: Permitted incoming/outgoing calls with facilitation and supervision 11. Due to VOLUNTARY status, if patient wishes to leave [facility], the [facility] bead worker sewing must be contacted to re-evaluate patient prior to patient exiting the building. Patient is currently voluntarily at [facility] and seeking inpatient admission when a bed becomes available. [facility] Frontline Reversing Mill Roller will continue seeking place ment. Please contact the Advertisement Compositor Sugar Refinery Supervisor ([phone]) and [facility] Reversing Mill Roller ([phone]) for any needed changes in the Safety Plan. Safety plan has been provided to interdepartmental care team.
[2019-10-21] MEDS: Pravastatin 20 MG TAB 40 MG PO (19:15)
[2019-10-21] MEDS: Mirtazapine 15 MG TAB 60 MG PO (21:33)
[2019-10-21] MEDS: Melatonin 3 MG TAB 6 MG PO (21:33)
--- NOTE | 2019-10-22 | RT.EKG_ITS ---
APPROVED REPORT Exam: Resting ECG Patient Location: I HR:79 bpm ECG Measurements Heart Rate 79 AXIS SC [id number] P [id number] QRSd 96 QRS 28 QT 368 T 3 QTc 424 Conclusion Atrial flutter with predominant 3:1 AV block...A-rate 245, multiple Ps Inferior infarct, old...Q >35mS, II III aVF
[2019-10-22] MEDS: lamoTRIgine 100 MG TAB 200 MG PO (08:09)
[2019-10-22] MEDS: lamoTRIgine 25 MG TAB PO (08:09)
[2019-10-22] MEDS: Levothyroxine 75 MCG TAB PO (08:09)
[2019-10-22] MEDS: risperiDONE 1 MG TAB 4 MG PO (08:09)
[2019-10-22 08:11] VITALS: BP 103/67; PULSE 89; RESP 18; TEMP 36.6; O2SAT 94
--- NOTE | 2019-10-22 09:18 | PDOC.CMPRO ---
- If Service Date Differs Date of service: 10/22/19 Time of Service: 09:18 Care Management Progress Note S/O: Nain continues to await placement for inpatient psychiatric treatment for depression, and suicidal ideation. He was lying in bed when CM met with him but engaged readily, maintaining good eye contact. Nain stated that he has been reading one of the books he was given yesterday and found it interesting. He has also been reading the special edition of Time magazine that is all about coping with stress. He agreed that focusing on something external was helpful. Nain requested that CM ask his to cancel his hair appointment scheduled for later this week. Nain has also agreed to give his the keys to their car so that she can move it back to the safety of their home. Nain met with Merline from [facility] this morning via Zoom. He informed her that he had been feeling a little better last night but was again very anxious this morning. When questioned, he stated it was because of his and their marriage which he feared was ending. He was unable to articulate how he would respond if he learned for a fact that it was true. Thai and Karen have requested updated clinicals and those have been sent. Later in the day a referral was also sent to Zelda at [facility]. A: Nain is a 69 year old male admitted to [facility] with SI on 10/17/19. P: and [facility] continue to seek placement for Nain in an inpatient psychiatric facility for stabilization and support. He will transport via [facility] when accepted, coordinated by . [facility] will continue to meet with Nain via Zoom daily. will update Nain's daily with his status, and will inform her once he is accepted and transitioning to a facility. CM will continue to follow. VOLUNTARY FOR INPATIENT PSYCHIATRIC STABILIZATION. Patient is appropriate in all interactions since arriving at [facility]; Pt has demonstrated appropriate coping and communication skills, has articulated his or her needs and concerns and is fully engaged during staff interactions. Safety plan has been established with patient, and care team, to adhere to patient goals, identify restrictions based on behavioral status, address nutrition, and determine allowed personal belongings, tools for hygiene and personal care. Determine level of activity including ambulation, level of supervision, visitors, and determine privileges based on behaviors and level of engagement by pt. SAFETY PLAN: 1. Will remain on suicide precautions. In Paper Clothes 2. Will remain in room under direct supervision of one-on-one staff at all times provided by [employer]; NEFTALI, ARMATURE WINDER AUTOMOTIVE sand mill operator facing sand. 3. May have paper cups, plates, finger foods as well as a cardboard spoon with which to eat meals. 4. Follow [facility] Management of the Admitted Behavioral Health Patient policy. 5. Shower permitted with escort per RN discretion. 6. No personal belongings at this time. 7. No visitors permitted at this time. 8. Activities: television , adult coloring, crayons, reading materials 9. Bathroom available in the room without limitation. 10. Phone: Permitted incoming/outgoing calls with facilitation and supervision 11. Due to VOLUNTARY status, if patient wishes to leave [facility], the [facility] delivery sales worker must be contacted to re-evaluate patient prior to patient exiting the building. Patient is currently voluntarily at [facility] and seeking inpatient admission when a bed becomes available. [facility] Frontline River Rafting Guide will continue seeking placement. Please contact the Instrument Shop Supervisor Audit Director ([phone]) and [facility] River Rafting Guide ([phone]) for any needed changes in the Safety Plan. Safety plan has been provided to interdepartmental care team. cc:
--- NOTE | 2019-10-22 09:19 | PDOC.CMSAFE ---
- If Service Date Differs Date of service: 10/22/19 Time of Service: 09:19 Care Management Safety Plan VOLUNTARY FOR INPATIENT PSYCHIATRIC STABILIZATION. Patient is appropriate in all interactions since arriving at [facility]; Pt has demonstrated appropriate coping and communication skills, has articulated his or her needs and concerns and is fully engaged during staff interactions. Safety plan has been established with patient, and care team, to adhere to patient goals, identify restrictions based on behavioral status, address nutrition, and determine allowed personal belongings, tools for hygiene and personal care. Determine level of activity including ambulation, level of supervision, visitors, and determine privileges based on behaviors and level of engagement by pt. SAFETY PLAN: 1. Will remain on suicide precautions. In Paper Clothes 2. Will remain in room under direct supervision of one-on-one staff at all times provided by [employer]; NEFTALI, PROFESSOR OF [employer] decorator lighting fixtures. 3. May have paper cups, plates, finger foods as well as a cardboard spoon with which to eat meals. 4. Follow [facility] Management of the Admitted Behavioral Health Patient policy. 5. Shower permitted with escort per RN discretion. 6. No personal belongings at this time. 7. No visitors permitted at this time. 8. Activities: television, adult coloring, crayons, reading materials 9. Bathroom available in the room without limitation. 10. Phone: Permitted incoming/outgoing calls with facilitation and supervision 11. Due to VOLUNTARY status, if patient wishes to leave [facility], the [facility] family services worker must be contacted to re-evaluate patient prior to patient exiting the building. Patient is currently voluntarily at [facility] and seeking inpatient admission when a bed becomes available. [facility] Frontline Sugar Presser will continue seeking placement. Please contact the Instrument And Controls Technician Pilot Plant Supervisor ([phone]) and [facility] Sugar Presser ([phone]) for any needed changes in the Safety Plan. Safety plan has been provided to interdepartmental care team.
--- NOTE | 2019-10-22 12:57 | PGE_ITS ---
Date of Service Date of service: 10/22/19 Time of Service: 12:57 Assessment and Plan Assessment and plan (1) Suicidal ideation: Status: Deleted Assessment and plan: patient with ongoing suicidal ideation with plan and lethal means as he plans to shoot himself and has purchased a gun recently. mental health following and is being admitted pending inpatient psychiatric bed availability for management of major depression with suicidal ideation. He is medically cleared. He will be maintained on suicidal precautions Covid 19 testing negative, routine admission surveillance. (2) Bipolar disorder, manic: Status: Acute Assessment and plan: continue home medications, currently depressed which has improved slightly since increasing risperidone to 4 mg and lamotrigine 225 mg. lamotrigine level 4.0. (3) Hypothyroidism: Status: Chronic Assessment and plan: continue synthroid dosing. TSH 0.95 (4) Hyperlipidemia: Status: Chronic Assessment and plan: continue statin (5) Discharge planning issues: Status: Acute Assessment and plan: inpatient psychiatric treatment when bed available, case management and mental health following. case discussed with Dr Macias who is in agreement. Subjective Subjective Patient reports: no new complaints, tolerating liquids well and tolerating a regular diet Exam Const General: cooperative, comfortable, no acute distress and disheveled Nutritional Appearance: average body habitus Orientation: alert, awake and oriented x3 HENMT Head: normal to inspection, normocephalic and atraumatic Mouth: oral mucosae normal Resp Effort & Inspection: normal respiratory effort Auscultation: clear to auscultation bilaterally Cardio Rate: tachycardic Rhythm: regular rhythm Heart Sounds: no murmurs GI Inspection: normal to inspection Palpation: soft Auscultation: normal bowel sounds Skin General skin exam: no rashes or lesions noted Neuro General: patient alert, patient awake and patient oriented x3 Cranial Nerves: CN's II-XI intact bilaterally Cognition: normal cognition Speech: speech normal Gait: normal gait Motor: muscle tone normal throughout Extrem General: normal to inspection, full ROM and no pedal edema Psych Appearance: disheveled Mental Status: mental status grossly normal Speech and Movement: speech and movement normal Mood: labile mood Affect: labile affect (was sobbing for about an hour, now appropriate) Attitude: cooperative Thought Process: normal Thought Content: suicidality Insight: fair Judgment: fair Objective Objective Clinical Data: Vital Signs Temperature 36.6 C 10/22/19 08:11 Temperature Source Tympanic 10/22/19 08:11 Pulse 89 10/22/19 08:11 Pulse Rhythm Regular 10/21/19 23:00 Respiratory Rate 18 10/22/19 08:11 Respiratory Effort Non-Labored 10/21/19 23:00 Respiratory Depth Normal 10/21/19 23:00 Respiratory Pattern Normal 10/21/19 23:00 Blood Pressure 103/67 10/22/19 08:11 Pulse Oximetry 94 L 10/22/19 08:11 Oxygen Delivery Method Room Air 10/22/19 08:11 Oxygen Flow Rate 0 10/22/19 08:11 Pain Level 0 10/22/19 08:11 Intake & Output 10/21/19 10/22/19 10/22/19 23:59 11:59 23:59 Intake Total 360 / 360 360 / 540 180 / 540 Balance 360 / 360 360 / 540 180 / 540 Intake: Oral 360 / 360 360 / 540 180 / 540 Other: Urine Color Yellow Urine Appearance Clear Clear Urine Odor Normal Voiding Methods Toilet Toilet Laboratory Results WBC 7.27 10^3/uL (4.4-10.8) 10/17/19 12:36 RBC 4.29 10^6/uL (4.36-5.78) L 10/17/19 12:36 Hgb 13.6 g/dL (13.5-17.5) 10/17/19 12:36 Hct 40.3 % (40.0-50.0) 10/17/19 12:36 MCV 93.9 fL (80-95) 10/17/19 12:36 MCH 31.7 pg (27.0-33.0) 10/17/19 12:36 MCHC 33.7 % (32.0-36.0) 10/17/19 12:36 RDW 13.0 % (11.8-14.1) 10/17/19 12:36 Plt Count 261 10^3/uL (130-400) 10/17/19 12:36 MPV 8.8 fL (8.0-11.0) 10/17/19 12:36 Immature Gran % 0.6 10/17/19 12:36 Neutrophils % 71.7 10/17/19 12:36 Lymphocytes % 18.2 10/17/19 12:36 Monocytes % 8.4 10/17/19 12:36 Eosinophils % 0.8 10/17/19 12:36 Basophils % 0.3 10/17/19 12:36 Absolute Neutrophils 5.22 10^3/uL (1.2-6.7) 10/17/19 12:36 Absolute Lymphocytes 1.32 10^3/uL (1.2-3.4) 10/17/19 12:36 Absolute Monocytes 0.61 10^3/uL (0.1-0.8) 10/17/19 12:36 Absolute Eosinophils 0.06 10^3/uL (0.0-0.7) 10/17/19 12:36 Absolute Basophils 0.02 10^3/uL (0.0-0.2) 10/17/19 12:36 Sodium 140 mmol/L (136-145) 10/17/19 12:36 Potassium 3.7 mmol/L (3.5-5.1) 10/17/19 12:36 Chloride 104 mmol/L (98-107) 10/17/19 12:36 Carbon Dioxide 27.9 mmol/L (21.0-32.0) 10/17/19 12:36 Anion Gap 8.1 mmol/L (3-11) 10/17/19 12:36 BUN 17 mg/dL (7-18) 10/17/19 12:36 Creatinine 1.01 mg/dL (0.70-1.30) 10/17/19 12:36 Estimated GFR/1.73 m2 >= 60.00 (mL/min/1.73m2) 10/17/19 12:36 Glucose 164 mg/dL (74-106) H 10/17/19 12:36 Calcium 8.8 mg/dL (8.5-10.1) 10/17/19 12:36 Total Bilirubin 0.3 mg/dL (0.2-1.0) 10/17/19 12:36 AST 20 U/L (15-37) 10/17/19 12:36 ALT 44 U/L (16-63) 10/17/19 12:36 Alkaline Phosphatase 64 U/L (46-116) 10/17/19 12:36 Total Protein 7.7 g/dL (6.4-8.2) 10/17/19 12:36 Albumin 4.1 g/dL (3.4-5.0) 10/17/19 12:36 TSH 0.95 uIU/mL (0.36-3.74) 10/17/19 12:36 Urine Opiates Screen Negative (Negative) 10/17/19 12:25 Urine Methadone Screen Negative (Negative) 10/17/19 12:25 Ur Barbiturates Screen Negative (Negative) 10/17/19 12:25 Lamotrigine 4.0 mcg/mL (2.5 - 15.0) 10/17/19 12:36 Ur Tricyclics Screen Negative (Negative) 10/17/19 12:25 Ur Amphetamines Screen Negative (Negative) 10/17/19 12:25 U Benzodiazepines Scrn Negative (Negative) 10/17/19 12:25 Urine Cocaine Screen Negative (Negative) 10/17/19 12:25 Ur THC Screen Negative (Negative) 10/17/19 12:25 Ethyl Alcohol < 3.0 mg/dL (<3) 10/17/19 12:36 COVID-19 PCR Negative (Negative) 10/17/19 15:50 Nasopharyn COVID-19 PCR Not Applicable 10/17/19 15:50 Ref Test Perform Site [facility] 10/17/19 15:50
[2019-10-22 15:21] VITALS: BP 112/73; PULSE 83; RESP 16; TEMP 36.8; O2SAT 95
--- NOTE | 2019-10-22 15:35 | W.INMHPGNOTE ---
Date of service: 10/22/19 Time of Service: 15:35 Mental Health Crisis Note Presenting Issue How did you arrive at the ED and why did you come: Nain came to [facility] last week seeking a voluntary admission. He presented with SI, intent, means and attempt. Precipitating Factors Nain continues to endorses SI. He denied HI. There is no evidence of delusions. Disposition BEHAVIOR: Nain has been cooperative and friendly since he came to [facility]. He presents as significantly depressed and endorses anxiety as well. He does not engage in much conversation as he is so withdrawn. EYE CONTACT: Eye contact is good. MOOD: Nain presents as depressed. AFFECT: Nain presents with a flat affect. APPETITE: Nain reports that he is eating. SLEEP(trouble falling/staying asleep: Nain reports that he slept okay last night. It is when he is awake he is flooded with waht he describes as anxiiety and SI. Plan Will continue to seek placement for Nain. Also, looking at [facility] as a possible placement. Signature Clinician's Name/Title: Merline Hamm MS, [facility] Emergency Services Clinician
--- NOTE | 2019-10-22 16:13 | CMPROGNOTE_ITS ---
- If Service Date Differs Date of service: 10/22/19 Time of Service: 16:13 Care Management Progress Note With Nain's permission, DAVID gave the keys to his car to his Evita to drive home and keep in a secure area. An additional referral was sent to Zelda at [facility] this afterno on.
[2019-10-22] MEDS: Pravastatin 20 MG TAB 40 MG PO (20:58)
[2019-10-22] MEDS: Mirtazapine 15 MG TAB 60 MG PO (21:03)
[2019-10-22] MEDS: Melatonin 3 MG TAB 6 MG PO (21:04)
[2019-10-23] MEDS: Levothyroxine 75 MCG TAB PO (06:42)
[2019-10-23] MEDS: lamoTRIgine 100 MG TAB 200 MG PO (08:48)
[2019-10-23] MEDS: lamoTRIgine 25 MG TAB PO (08:48)
[2019-10-23] MEDS: risperiDONE 1 MG TAB 4 MG PO (08:49)
--- NOTE | 2019-10-23 11:29 | W.INMHPGNOTE ---
Date of service: 10/23/19 Time of Service: 11:29 Mental Health Crisis Note Presenting Issue How did you arrive at the ED and why did you come: Nain arrived last week at the request of his PMHNP after disclosing SI, intent, plan, means and attempt. Precipitating Factors Nain reports his SI is less intense today but still rates it at a 7 on a scale of 0-10. He is nos showing any signs of delusions. Disposition BEHAVIOR: Nain continues to be cooperative, engaged, polite and a non behavior patient. He is anxious to get out of [facility] however, and into a facility that can help him get out of his depression. EYE CONTACT: Nain makes good eye contact. MOOD: Nain still presents as depressed but his anxiety does seem a bit lessened today. AFFECT: Affect is depressed. APPETITE: Nain reported his appetite is fine. SLEEP(trouble falling/staying asleep: Nain reported that his sleep was good last night. Plan Nain is still interested in placement. He would prefer [facility] [place] [place] as he has been there before but will accept whatever comes open. Signature Clinician's Name/Title: Merline Hamm MS, [facility] Emergency Services Clinician
--- NOTE | 2019-10-23 13:57 | DSE_ITS ---
Date of service: 10/23/19 Time of Service: 13:57 DS: Diagnosis Discharge Diagnosis (1) Suicidal ideation: Status: Deleted (2) Bipolar disorder, manic: Status: Acute (3) Hypothyroidism: Status: Chronic (4) Hyperlipidemia: Status: Chronic Discharge Plan Disposition Patient Disposition: [facility] Condition: Stable Discharge Details Chief Complaint: PsychEval Clinical Impression: Major depression, Suicide ideation Reason For Visit: SUICIDAL IDEATION Admit Date/Time: 10/17/19 15:18 Admit Provider: Rosangela Norris Attending Provider: Rosangela Norris Primary Care Provider: Celio Sanders ED Provider: Sofy Lindquist Hospital Course Hospital Course: This is a 69-year-old male with a history of bipolar disorder, hyperlipidemia, hypothyroidism, prostate cancer who presented to the ED with a complaint of feeling suicidal for the past several months, getting progressively worse. Patient was sent by Ila Cadet for admission. He recently purchased a gun over the weekend with intent to shoot himself. He has had previous suicidal thoughts for several years but has never attempted suicide. He has been taking his medications. Medically he is cleared in the emergency department. He is evaluated by mental health and is agreeable to a voluntary inpatient psychiatric admission. He has remained medically stable with no behavioral issues. He is eating and drinking and bowels and bladder functioning well. His lamotrigine was increased to 225 mg daily and risperidone to 4 mg daily with some improvement in his depressive mood but he still remains suicidal. A bed has been secured at [facility] and he is being transported by [facility]. discharge plan discussed with Dr Watson who is in agreement Home Meds and New Rx's Prescriptions: New lamotrigine [Lamictal] 25 mg Tablet 25 mg PO DAILY Qty: 30 RF: 0 Continued lamotrigine 200 mg tablet 200 mg PO DAILY RF: 0 mirtazapine [Remeron] 30 mg tablet 60 mg PO HS RF: 0 pravastatin 20 mg tablet 40 mg PO DAILY RF: 0 levothyroxine 75 MCG tablet 75 mcg PO DAILY Qty: 4 RF: 0 Changed risperidone 2 mg tablet 4 mg PO DAILY Qty: 0 RF: 0 Discontinued benztropine 2 mg tablet 2 mg PO QAM RF: 0 Discharge Instructions Instructions: Depression (DC), Suicide Prevention (DC) Stand Alone Forms: Nursing Discharge Form Referrals: Celio Sanders MD [Primary Care Provider] - (upon discharge from [facility]) Activity:: Activity as Tolerated Diet:: As Tolerated DS: Summary Status at Discharge Functional status at discharge: independent ambulation Overall status at discharge: patient is not back to baseline Mental Status: mental status grossly normal Speech and Movement: speech and movement normal Mood: labile mood Affect: labile affect (was sobbing for about an hour, now appropriate) Exam Const General: cooperative, comfortable and no acute distress Nutritional Appearance: average body habitus Orientation: alert, awake and oriented x3 HENMT Head: normal to inspection, normocephalic and atraumatic Mouth: oral mucosae normal Resp Effort & Inspection: normal respiratory effort Auscultation: clear to auscultation bilaterally Cardio Rate: tachycardic Rhythm: regular rhythm Heart Sounds: no murmurs GI Inspection: normal to inspection Palpation: soft Auscultation: normal bowel sounds Skin General skin exam: no rashes or lesions noted Neuro General: patient alert, patient awake and patient oriented x3 Cranial Nerves: CN's II-XI intact bilaterally Cognition: normal cognition Speech: speech normal Gait: normal gait Motor: muscle tone normal throughout Extrem General: normal to inspection, full ROM and no pedal edema Psych Appearance: disheveled Mental Status: mental status grossly normal Speech and Movement: speech and movement normal Mood: labile mood Affect: labile affect (was sobbing for about an hour, now appropriate) Attitude: cooperative Thought Process: normal Thought Content: suicidality Insight: fair Judgment: fair DS: Data Vitals/I&O Vitals and I&O: Vital Signs Temperature 36.8 C 10/22/19 15:21 Temperature Source Temporal Artery Scan 10/22/19 15:21 Pulse 83 10/22/19 15:21 Pulse Rhythm Regular 10/23/19 11:53 Respiratory Rate 16 10/22/19 15:21 Respiratory Effort Non-Labored 10/23/19 11:53 Respiratory Depth Normal 10/23/19 11:53 Respiratory Pattern Normal 10/23/19 11:53 Blood Pressure 112/73 10/22/19 15:21 Pulse Oximetry 95 10/22/19 15:21 Oxygen Delivery Method Room Air 10/22/19 15:21 Oxygen Flow Rate 0 10/22/19 15:21 Pain Level 0 10/22/19 15:21 Intake & Output 10/22/19 10/23/19 10/23/19 23:59 11:59 23:59 Intake Total 910 / 1270 300 / 300 Balance 910 / 1270 300 / 300 Intake: Oral 910 / 1270 300 / 300 Other: Urine Color Yellow Urine Appearance Clear Clear Urine Odor Normal Voiding Methods Toilet [facility] Medical History (Updated 10/21/19 @ 17:01 by Patsy Kendrick NP) Bipolar disorder, manic (Acute) Hyperlipidemia (Chronic) Hypothyroidism (Chronic) Prostate cancer (Chronic) Psoriasis (Chronic) Surgical History S/P appendectomy (Acute) S/P cholecystectomy (Acute) S/P tonsillectomy (Acute) Family History Father Alzheimer disease Prostate cancer Anxiety Mother Colon cancer Heart disease Social History Smoking/Tobacco Use Status: Never Alcohol Intake: current Alcohol Intake frequency: holidays/special occasions only Drug use: Never Substance use type: does not use Household members: spouse Number of Children: 2 current occupation: [employer]; [employer] Do you feel safe at home: No (suicidal) Do you feel safe in your relationship?: Yes
--- NOTE | 2019-10-23 16:52 | NUR.NOTE ---
Nursing Note: Nurse to nurse given to Winnie at [facility], , answered all her questions to her satisfaction, patient will be accepted there at 1900, to be transported by the [facility], [place]
--- NOTE | 2019-10-23 16:56 | PDOC.CMDIS ---
- If Service Date Differs Date of service: 10/23/19 Time of Service: 16:56 LACE Index Scoring Tool - Questions: Length of Stay (in days): 4 - 6 Acuity (Admit via E.D.?): Yes Comorbidities: Any Tumor E.D. Visits: 1 - Answers: Total Score: 10 Risk of Readmission: High Risk Care Management Discharge Reason for Hospitalization: Suicidal Ideation Discharge Plan: Nain will be transitioned to [facility] today for inpatient psychiatric stabilization. He will be transported via [employer], coordinated by DAVID. He asked CM to call his to inform her of his disposition, which CM attempted, but was unsuccesful. CM told Nain that he will be able to have her contacted at . CM also informed Merline at [facility] of his discharge. He was agreeable to go to , as he is actively seeking help for his SI. Patient/Family Education Needs: Review discharge instructions with Nain and staff at [facility], discuss goals of care and self care needs including ask me three. Services Needed at Discharge: Psychiatric Facility ([facility]), Transportation ([facility]) - MH Services (Omit if N/A) Current MH Services: [facility]
== END 2019-10-23 16:44 | disposition short-term general hospital (02) | DRG 885 ==
LOC: ER 15:27 → MS 16:07
PROVIDERS: Nurse Practitioner Acute Care; Admitting Provider Internal Medicine; Emergency Provider Physician Assistant; PCP Internal Medicine; Visit Provider Internal Medicine
DX: F31.10 Bipolar disorder, current episode manic without psychotic features, unspecified (principal); R45.851 Suicidal ideations; Z11.59 Encounter for screening for other viral diseases; E78.5 Hyperlipidemia, unspecified; F31.9 Bipolar disorder, unspecified; E03.9 Hypothyroidism, unspecified; C61 Malignant neoplasm of prostate; L40.9 Psoriasis, unspecified; G25.1 Drug-induced tremor
CPT/HCPCS: 36415; 80053; 80175; 80307; 99223; 99232; 99233; 99239; 99285; U0003; 80320; 84443; 85025; 99284

== ENCOUNTER 2019-12-17 02:06 | Outpatient (CLI) | payer MEDICARE, OTHER, SELFPAY ==
[2019-12-18 18:41] LABS: PSA, Ultrasensitive <0.01 ng/mL (<= 6.5)
== END 2019-12-17 02:26 ==
PROVIDERS: PCP Internal Medicine; Visit Provider Internal Medicine Hematology & Oncology
DX: C61 Malignant neoplasm of prostate (principal)
CPT/HCPCS: 36415; 84153

== ENCOUNTER → 2020-01-24 08:55 | Outpatient (BNVA) | payer MEDICARE, OTHER, SELFPAY | PROVIDERS: PCP Internal Medicine; Referring Provider Internal Medicine; Visit Provider Psychiatry & Neurology Neurology | DX: R69 Illness, unspecified (principal) ==

== ENCOUNTER 2020-02-03 16:35 | Emergency (ER) | payer MEDICARE, OTHER, SELFPAY ==
[2020-02-03] VITALS (17 sets, daily range): BP systolic 131–149; BP diastolic 66–77; PULSE 93–102; RESP 11–20; TEMP 36.9; O2SAT 97–99
--- NOTE | 2020-02-03 16:52 | W.ED.GENAD ---
Discharge Plan Disposition Patient Disposition: HOME Condition: Stable Discharge Details Clinical Impression: Dyskinesia, tardive Primary Care Provider: Celio Sanders ED Provider: Kami Ritter Home Meds and New Rx's Prescriptions: New diphenhydramine HCl [Benadryl] 25 mg capsule 25 mg PO Q6H PRN (Reason: allergy symptoms) Qty: 20 RF: 0 clonazepam 0.5 mg tablet 0.5 mg PO DAILY 4 Days Qty: 4 RF: 0 No Action lamotrigine 200 mg tablet 200 mg PO DAILY RF: 0 mirtazapine [Remeron] 30 mg tablet 60 mg PO HS RF: 0 pravastatin 20 mg tablet 40 mg PO DAILY RF: 0 lamotrigine [Lamictal] 25 mg Tablet 25 mg PO DAILY Qty: 30 RF: 0 levothyroxine 75 MCG tablet 75 mcg PO DAILY Qty: 4 RF: 0 Discharge Instructions Instructions: Extrapyramidal Symptoms (ED) Additional Instructions: At this time I am concerned that the dosage of the venlafaxine or Effexor may be causing the tardive dyskinesia symptoms. The dose of 150 mg may need to be decreased. Also, I am concerned that the benzotropin may actually be exacerbating the tardive dyskinesia. This can happen in some cases. I will prescribe Benadryl 25 mg tablets 1-2 every 6-8 hours as needed for symptoms. I will also prescribe clonazepam 0.5 mg daily as needed for symptoms. Please keep your upcoming appointment with Dr. Warner your psychiatrist. Return to the ED for any worsening symptoms, trouble breathing, shortness of breath or any concerns. Referrals: Celio Sanders MD [Primary Care Provider] - Discharge Data Discharge Date/Time-TO BE ENTERED AT DEPARTURE: 02/03/20 19:10 Medical Decision Making Patient is a 69-year-old male who presents to the ER with facial twitching and dystonic reaction. He is currently residing at a care bed, they sent him to the ED for concerns of possible airway involvement due to patient complaint of trouble swallowing sore throat shortness of breath. He states that this is been ongoing for last 4 to 5-week. He has been treated for bipolar disorder, manic depression, he was recently started on benztropine on 01/30/2020 and DC'd from cyproheptadine on January 24. He is complaining of throat tenderness. He denies any shortness of breath. He also states that he has had tremors in his feet and an uncontrollable muscle twitching on his face. He is alert and oriented. He has not taken any Benadryl. Work-up ordered including CBC, CMP, urinalysis and urine drug screen which were all largely within normal limits. Patient was placed on a panel monitor and was given a liter of normal saline IV. 1728: Patient reevaluation he states that the Benadryl and lorazepam has helped marginally he is still having facial twitches and twitches. 1746: Spoke with Korin at the [facility] regarding patients medications specifically Effexor. [facility] summary including my recommendations for medication changes and possible benztropine exacerbated tardive dyskinesia at this time. She reports that patient has an upcoming appointment with her new psychiatrist Dr. Warner she is unable to tell me which day he has the appointment. So far patient has remained hemodynamically stable his airway is not involved at this time. Patient discharged back to the [facility] with their transportation he was hemodynamically stable at the time of this dictation and remained so throughout his stay. This text was generated using [employer] dictation system, please disregard any oddities of phrase or misspellings. HPI General Mode of arrival: ambulatory. Date/Time Provider Initiated Documentation: 02/03/20 16:41. Limitations to Documentation: no limitations. Information obtained by: patient. HPI Narrative: Patient is a 69-year-old male who presents to the ER with facial twitching and dystonic reaction. He is currently residing at a care bed, they sent him to the ED for concerns of possible airway involvement due to patient complaint of trouble swallowing sore throat shortness of breath. He states that this is been ongoing for last 4 to 5-week. He has been treated for bipolar disorder, manic depression, he was recently started on benztropine on 01/30/2020 and DC'd from cyproheptadine on January 24. He is complaining of throat tenderness. He denies any shortness of breath. He also states that he has had tremors in his feet and an uncontrollable muscle twitching on his face. He is alert and oriented. He has not taken any Benadryl. Related Data Home Medications Medication Instructions Recorded Confirmed levothyroxine 75 mcg PO DAILY #4 tab 08/04/17 02/03/20 pravastatin 20 mg tablet 40 mg PO DAILY tab 01/25/19 02/03/20 lamotrigine 200 mg tablet 200 mg PO DAILY 07/26/19 02/03/20 mirtazapine 30 mg tablet 60 mg PO HS tab 07/26/19 02/03/20 lamotrigine [Lamictal] 25 mg PO DAILY #30 tab 10/23/19 02/03/20 clonazepam 0.5 mg PO DAILY 4 Days #4 tab 02/03/20 diphenhydramine HCl [Benadryl] 25 mg PO Q6H PRN #20 cap 02/03/20 Previous Rx's Medication Instructions Recorded levothyroxine 75 mcg PO DAILY #4 tab 08/04/17 lamotrigine [Lamictal] 25 mg PO DAILY #30 tab 10/23/19 clonazepam 0.5 mg PO DAILY 4 Days #4 tab 02/03/20 diphenhydramine HCl [Benadryl] 25 mg PO Q6H PRN #20 cap 02/03/20 Allergies Allergy/AdvReac Type Severity Reaction Status Date / Time No Known Allergies Allergy Unverified 02/03/20 16:47 General Stated Complaint: GenMedical ASHWIN: 2 Review of Systems Narrative: Constitutional: Negative for weight loss, alert and oriented, well groomed, normal body habitus, appears comfortable. HEENT: Denies trauma, headaches, blurry vision, nasal discharge, trouble swallowing. Positive sore throat. Has uncontrollable facial movements and uncontrollable feet twitching. Chest: Denies chest pain, palpitations, irregular rhythm, hypertension. Respiratory: Denies Shortness of breath, cough, hemoptysis. GI: Denies abdominal pain, nausea, vomiting, diarrhea, constipation. : Denies dysuria, hematuria, flank pain, rectal bleeding. Neuro: Denies dizziness, blurry vision, weakness, syncope, headache or facial numbness. Hematologic: Denies easy bruising, intolerance to heat or cold, hair loss. Neurologic Neurologic: Reports abnormal movements (Dystonic facial movements) and Reports tremor(s) [facility] Medical History (Updated 02/03/20 @ 18:05 by Kami Ritter) Bipolar disorder, manic Hyperlipidemia Hypothyroidism Prostate cancer Psoriasis Surgical History S/P appendectomy S/P cholecystectomy S/P tonsillectomy Family History Father Alzheimer disease Prostate cancer Anxiety Mother Colon cancer Heart disease Social History Smoking/Tobacco Use Status: Never Smoking risk assessment performed?: Yes Alcohol Intake: current Alcohol Intake frequency: holidays/special occasions only Drug use: Never Substance use type: does not use Household members: spouse Number of Children: 2 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 Appears stated age. Normal body habitus. Head: Normocephalic, no trauma. Has uncontrolled nasal dystonic facial movements. Eyes: Pupils PERRLA, Red reflex noted, EOM's intact. Eyelids symmetrical without lesions, discharge, or swelling. ENT: Bilateral TM's WNL, External ear normal to inspection, no mastoid TTP, swelling, or erythema, Nasal turbinates WNL, no nasal discharge. Normal dentition, Posterior pharynx WNL, no exudate. Is complaining of sore throat. Chest: RRR, Normal S1, S2, distal pulses intact. Resp: Lungs clear to auscultation bilaterally, no wheezes, rales, or rhonchi. Musculoskeletal: Skin: No suspicious rashes or lesions. Capillary refill less than 2 sec. Neurologic: Cranial nerves II-XII intact. Alert and oriented x 3. Hematologic/Lymphatic: No ecchymosis, no lymphadenopathy. Neuro General: patient alert, patient awake and patient oriented x3 Motor: movement abnormality noted tics, tardive dyskinesia and dystonia Course Vital Signs Vital signs: Vital Signs Temperature 36.9 C 02/03/20 16:41 Pulse 102 H 02/03/20 16:41 Respiratory Rate 18 02/03/20 16:41 Blood Pressure 149/77 H 02/03/20 16:41 Pulse Oximetry 98 02/03/20 16:41 Temperature 36.9 C 11/29/20 16:41 Temperature Source Skin 02/03/20 16:41 Pulse 102 H 02/03/20 16:41 Respiratory Rate 18 02/03/20 16:41 Respiratory Effort Non-Labored 02/03/20 16:41 Blood Pressure 149/77 H 02/03/20 16:41 Blood Pressure Position Supine 02/03/20 16:41 Pulse Oximetry 98 02/03/20 16:41 Oxygen Delivery Method Room Air 02/03/20 16:41 Oxygen Flow Rate 0 02/03/20 16:41 Pain Level 8 02/03/20 16:41
[2020-02-03] MEDS: diphenhydrAMINE 50 MG/ML VIAL 25 MG IVP (16:53)
[2020-02-03] MEDS: Normal Saline 1,000 ML 1000 ML IV (16:53)
[2020-02-03] MEDS: FAMOTIDINE 20 MG/50 ML BAG 200 MG IVPB (16:53)
[2020-02-03] MEDS: LORazepam 2 MG/ML VIAL 1 MG IVP (16:53)
[2020-02-03 17:04] LABS: Abs Immature Grans 0.06 10^3/uL (0.0-0.06); Absolute Basophil Count 0.03 10^3/uL (0.0-0.2); Absolute Eosinophil Count 0.27 10^3/uL (0.0-0.7); Absolute Lymphocyte Count 2.55 10^3/uL (1.2-3.4); Absolute Monocyte Count 1.09 10^3/uL (0.1-0.8); Absolute Neutrophil Count 5.89 10^3/uL (1.2-6.7); Basophils % 0.3; Eosinophils % 2.7; HCT 36.3 % (40.0-50.0); HGB 12.3 g/dL (13.5-17.5); Immature Grans % 0.6; Lymphocytes % 25.8; MCH 31.3 pg (27.0-33.0); MCHC 33.9 % (32.0-36.0); MCV 92.4 fL (80-95); MPV 8.8 fL (8.0-11.0); Neutrophils % 59.6; Nucleated RBC 0 %; Platelet Count 275 10^3/uL (130-400); RBC 3.93 10^6/uL (4.36-5.78); RDW 12.9 % (11.8-14.1); RDW-SD 43.8 fL; WBC 9.89 10^3/uL (4.4-10.8)
[2020-02-03 17:17] LABS: ALT 26 U/L (16-63); AST 27 U/L (15-37); Albumin 3.8 g/dL (3.4-5.0); Alkaline Phosphatase 87 U/L (46-116); Anion Gap 7.7 mmol/L (3-11); BUN 28 mg/dL (7-18); Bilirubin, Total 0.2 mg/dL (0.2-1.0); CO2 25.3 mmol/L (21.0-32.0); CREATININE 1.13 mg/dL (0.70-1.30); Calcium 8.6 mg/dL (8.5-10.1); Chloride 107 mmol/L (98-107); Glucose 129 mg/dL (74-106); Magnesium 2.2 mg/dL (1.8-2.4); Potassium 3.9 mmol/L (3.5-5.1); Sodium 140 mmol/L (136-145); Total Protein 7.7 g/dL (6.4-8.2)
[2020-02-03 18:02] LABS: Bilirubin Negative (Negative); Blood Negative (Negative); Clarity Clear (Clear); Glucose Negative (Negative); Ketones Trace mg/dL (Negative); Leukocyte Esterase Negative (Negative); Nitrite Negative (Negative); Urobilinogen 0.2 EU/dL (Up TO 0.2)
[2020-02-03] MEDS: Dexamethasone 10 MG/ML VIAL PO (18:03)
[2020-02-03 18:13] LABS: *AMPHETAMINES SCREEN URINE Negative (Negative); *BARBITURATES SCREEN URINE Negative (Negative); *BENZODIAZEPINES SCREEN URINE Negative (Negative); Cannabinoids THC Negative (Negative); Cocaine Screen,Urine Negative (Negative); METHADONE URINE SCREEN Negative (Negative); OPIATES URINE SCREEN Negative (Negative); Tricyclic Antidepressants Negative (Negative)
== END 2020-02-03 19:10 | disposition home or self-care (01) ==
PROVIDERS: Emergency Provider Registered Nurse Emergency; PCP Internal Medicine
DX: G24.01 Drug induced subacute dyskinesia (principal); T43.215A Adverse effect of selective serotonin and norepinephrine reuptake inhibitors, initial encounter; R07.0 Pain in throat; R13.10 Dysphagia, unspecified; F31.9 Bipolar disorder, unspecified
CPT/HCPCS: 36415; 80053; 80307; 96361; 96365; 96375; 99284; 81003; 83735; 85025; J1100; J1200; J2060

== ENCOUNTER 2020-02-04 15:37 | Emergency (ER) | payer MEDICARE, OTHER, SELFPAY ==
[2020-02-04 15:43] VITALS: BP 149/88; PULSE 110; RESP 15; TEMP 36.6; O2SAT 97
[2020-02-04] MEDS: clonazePAM 0.5 MG TAB PO (16:23)
[2020-02-04] MEDS: Magic Mouthwash 119 ML BTL PO (16:35)
[2020-02-04] MEDS: diphenhydrAMINE 50 MG/ML VIAL IM (16:36)
--- NOTE | 2020-02-04 16:41 | W.ED.GENAD ---
Discharge Plan Disposition Patient Disposition: HOME Condition: Fair Discharge Details Clinical Impression: Dyskinesia, tardive Primary Care Provider: Celio Sanders ED Provider: Patsy Kendrick Home Meds and New Rx's Prescriptions: No Action lamotrigine 200 mg tablet 200 mg PO DAILY RF: 0 mirtazapine [Remeron] 30 mg tablet 60 mg PO HS RF: 0 pravastatin 20 mg tablet 40 mg PO DAILY RF: 0 lamotrigine [Lamictal] 25 mg Tablet 25 mg PO DAILY Qty: 30 RF: 0 levothyroxine 75 MCG tablet 75 mcg PO DAILY Qty: 4 RF: 0 diphenhydramine HCl [Benadryl] 25 mg capsule 25 mg PO Q6H PRN (Reason: allergy symptoms) Qty: 20 RF: 0 clonazepam 0.5 mg tablet 0.5 mg PO DAILY 4 Days Qty: 4 RF: 0 Discharge Instructions Instructions: Extrapyramidal Symptoms (ED) Additional Instructions: take all your medications as prescribed keep follow up appointment with psychiatry, taper meds as instructed use benadryl 1-2 tabs every 6 hours as needed use clonazepam 0.5 mg daily as instructed use magic mouthwash 5 ml 3 times daily if needed for mouth sores Referrals: Celio Sanders MD [Primary Care Provider] - Discharge Data Discharge Date/Time-TO BE ENTERED AT DEPARTURE: 02/04/20 16:57 Medical Decision Making Patient has not had his prescriptions filled so presents here, no new c/o. Given benadry 50 mg IM, clonazepam 0.5 mg po and magic mouth wash, observed for some time with improvement in his symptoms. certified legal secretary specialist has verified that care bed staff has obtained his prescriptions and he will now have access to them per their report by phone with cardiac care unit nurse. HPI General Mode of arrival: ambulatory. Date/Time Provider Initiated Documentation: 02/04/20 15:38. Limitations to Documentation: no limitations. Information obtained by: patient. HPI Narrative: patient presents for evaluation of ongoing symptoms of tardive dyskinesia, seen yesterday and was prescribed benadryl and clonazepam which he states he did not fill. he has had these symptoms for 2 weeks. he now has sores in his mouth from all the lip smacking and involuntary mouth movements. Related Data Home Medications Medication Instructions Recorded Confirmed levothyroxine 75 mcg PO DAILY #4 tab 08/04/17 02/04/20 pravastatin 20 mg tablet 40 mg PO DAILY tab 01/25/19 02/04/20 lamotrigine 200 mg tablet 200 mg PO DAILY 07/26/19 02/04/20 mirtazapine 30 mg tablet 60 mg PO HS tab 07/26/19 02/04/20 lamotrigine [Lamictal] 25 mg PO DAILY #30 tab 10/23/19 02/04/20 clonazepam 0.5 mg PO DAILY 4 Days #4 tab 02/03/20 02/04/20 diphenhydramine HCl [Benadryl] 25 mg PO Q6H PRN #20 cap 02/03/20 02/04/20 Previous Rx's Medication Instructions Recorded levothyroxine 75 mcg PO DAILY #4 tab 08/04/17 lamotrigine [Lamictal] 25 mg PO DAILY #30 tab 10/23/19 clonazepam 0.5 mg PO DAILY 4 Days #4 tab 02/03/20 diphenhydramine HCl [Benadryl] 25 mg PO Q6H PRN #20 cap 02/03/20 Allergies Allergy/AdvReac Type Severity Reaction Status Date / Time No Known Allergies Allergy Unverified 02/04/20 15:47 General Stated Complaint: DentalOral ASHWIN: 4 Review of Systems ENT Ears, Nose, Mouth, and Throat: Denies dysphagia Comments: lesions in mouth and tongue from biting and lip smacking Cardiovascular Cardiovascular: Denies chest pain and Denies dyspnea Respiratory Respiratory: Denies cough and Denies dyspnea Gastrointestinal Gastrointestinal: Denies dysphagia Musculoskeletal Musculoskeletal: Reports other Comments: involuntary movements of his head and mouth [facility] Medical History (Updated 02/04/20 @ 16:50 by Patsy Kendrick NP) Bipolar disorder, manic Hyperlipidemia Hypothyroidism Prostate cancer Psoriasis Surgical History S/P appendectomy S/P cholecystectomy S/P tonsillectomy Family History Father Alzheimer disease Prostate cancer Anxiety Mother Colon cancer Heart disease Social History Smoking/Tobacco Use Status: Never Smoking risk assessment performed?: Yes Alcohol Intake: current Alcohol Intake frequency: holidays/special occasions only Drug use: Never Substance use type: does not use Household members: spouse Number of Children: 2 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; [employer] Do you feel safe at home: No (suicidal) Do you feel safe in your relationship?: Yes Exam Const General: cooperative and ill appearing chronically Nutritional Appearance: average body habitus [facility] Head: normal to inspection, normocephalic and atraumatic Resp Effort & Inspection: normal respiratory effort and no cough Cardio Rate: regular rate Rhythm: regular rhythm GI Inspection: normal to inspection Skin Lesions: other (oral lesions) Rashes: no rashes Neuro General: patient alert, patient awake and patient oriented x3 Extrem General: normal to inspection and no pedal edema Course Vital Signs Vital signs: Vital Signs Temperature 36.6 C 02/04/20 15:43 Pulse 110 H 02/04/20 15:43 Respiratory Rate 15 02/04/20 15:43 Blood Pressure 149/88 H 02/04/20 15:43 Pulse Oximetry 97 02/04/20 15:43 Temperature 36.6 C 02/04/20 15:43 Temperature Source Temporal Artery Scan 02/04/20 15:43 Pulse 110 H 02/04/20 15:43 Respiratory Rate 15 02/04/20 15:43 Respiratory Effort Non-Labored 02/04/20 15:56 Blood Pressure 149/88 H 02/04/20 15:43 Blood Pressure Position Sitting 02/04/20 15:43 Pulse Oximetry 97 02/04/20 15:43 Oxygen Delivery Method Room Air 02/04/20 15:43 Oxygen Flow Rate 0 02/04/20 15:43 Pain Level 8 02/04/20 15:43
== END 2020-02-04 16:57 | disposition home or self-care (01) ==
PROVIDERS: Emergency Provider Nurse Practitioner Acute Care; PCP Internal Medicine
DX: G24.01 Drug induced subacute dyskinesia (principal); K13.79 Other lesions of oral mucosa
CPT/HCPCS: 96372; 99284; 99283; J1200

== ENCOUNTER 2020-03-27 04:56 | Outpatient (CLI) | payer MEDICARE, OTHER, SELFPAY ==
[2020-03-27 14:11] LABS: Abs Immature Grans 0.01 10^3/uL (0.0-0.06); Absolute Basophil Count 0.03 10^3/uL (0.0-0.2); Absolute Lymphocyte Count 2.14 10^3/uL (1.2-3.4); Absolute Monocyte Count 0.77 10^3/uL (0.1-0.8); Absolute Neutrophil Count 3.56 10^3/uL (1.2-6.7); Basophils % 0.4; HCT 38.2 % (40.0-50.0); HGB 12.5 g/dL (13.5-17.5); Immature Grans % 0.1; Lymphocytes % 31.9; MCH 30.9 pg (27.0-33.0); MCHC 32.7 % (32.0-36.0); MCV 94.3 fL (80-95); MPV 8.9 fL (8.0-11.0); Monocytes % 11.5; Neutrophils % 53.1; Nucleated RBC 0 %; Platelet Count 269 10^3/uL (130-400); RBC 4.05 10^6/uL (4.36-5.78); RDW 13.1 % (11.8-14.1); RDW-SD 45.3 fL; WBC 6.71 10^3/uL (4.4-10.8)
[2020-03-27 15:10] LABS: ALT 34 U/L (16-63); AST 24 U/L (15-37); Albumin 3.8 g/dL (3.4-5.0); Alkaline Phosphatase 80 U/L (46-116); Anion Gap 4.5 mmol/L (3-11); BUN 15 mg/dL (7-18); Bilirubin, Total 0.2 mg/dL (0.2-1.0); CO2 30.5 mmol/L (21.0-32.0); CREATININE 0.98 mg/dL (0.70-1.30); Calcium 8.5 mg/dL (8.5-10.1); Chloride 104 mmol/L (98-107); Glucose 81 mg/dL (74-106); Potassium 4.5 mmol/L (3.5-5.1); Sodium 139 mmol/L (136-145); Total Protein 7.2 g/dL (6.4-8.2)
[2020-03-28 17:40] LABS: PSA, Ultrasensitive 0.02 ng/mL (<= 6.5)
== END 2020-03-27 05:16 ==
PROVIDERS: PCP Internal Medicine; Visit Provider Internal Medicine Hematology & Oncology
DX: C61 Malignant neoplasm of prostate (principal)
CPT/HCPCS: 36415; 80053; 84153; 85025

== ENCOUNTER 2020-06-23 13:06 | Outpatient (CLI) | payer MEDICARE, OTHER, SELFPAY ==
[2020-06-23 15:57] LABS: Abs Immature Grans 0.02 10^3/uL (0.0-0.06); Absolute Basophil Count 0.05 10^3/uL (0.0-0.2); Absolute Eosinophil Count 0.32 10^3/uL (0.0-0.7); Absolute Lymphocyte Count 2.45 10^3/uL (1.2-3.4); Absolute Monocyte Count 0.64 10^3/uL (0.1-0.8); Absolute Neutrophil Count 3.49 10^3/uL (1.2-6.7); Basophils % 0.7; Eosinophils % 4.6; HCT 41.3 % (40.0-50.0); HGB 13.5 g/dL (13.5-17.5); Immature Grans % 0.3; Lymphocytes % 35.2; MCH 30.8 pg (27.0-33.0); MCHC 32.7 % (32.0-36.0); MCV 94.3 fL (80-95); Monocytes % 9.2; Nucleated RBC 0 %; Platelet Count 276 10^3/uL (130-400); RBC 4.38 10^6/uL (4.36-5.78); RDW 13.7 % (11.8-14.1); RDW-SD 47.6 fL; WBC 6.97 10^3/uL (4.4-10.8)
[2020-06-23 16:43] LABS: ALT 43 U/L (16-63); AST 26 U/L (15-37); Alkaline Phosphatase 77 U/L (46-116); Anion Gap 7.1 mmol/L (3-11); BUN 17 mg/dL (7-18); Bilirubin, Total 0.3 mg/dL (0.2-1.0); CO2 31.9 mmol/L (21.0-32.0); CREATININE 1.1 mg/dL (0.70-1.30); Calcium 8.8 mg/dL (8.5-10.1); Chloride 106 mmol/L (98-107); Glucose 108 mg/dL (74-106); Potassium 3.9 mmol/L (3.5-5.1); Sodium 145 mmol/L (136-145); Total Protein 7.6 g/dL (6.4-8.2)
[2020-06-24 17:45] LABS: PSA, Ultrasensitive 0.03 ng/mL (<= 6.5)
== END 2020-06-23 13:07 | disposition home or self-care (01) ==
LOC: LBO 13:07
PROVIDERS: PCP Internal Medicine; Visit Provider Internal Medicine Hematology & Oncology
DX: C61 Malignant neoplasm of prostate (principal)
CPT/HCPCS: 36415; 80053; 84153; 85025

== ENCOUNTER → 2020-07-29 12:57 | Outpatient (BNVA) | payer MEDICARE, OTHER, SELFPAY | PROVIDERS: PCP Internal Medicine; Referring Provider Internal Medicine; Visit Provider Psychiatry & Neurology Neurology | DX: G25.1 Drug-induced tremor (principal); R41.3 Other amnesia; E78.5 Hyperlipidemia, unspecified; E03.9 Hypothyroidism, unspecified; Z85.46 Personal history of malignant neoplasm of prostate | CPT/HCPCS: 99214 ==

== ENCOUNTER 2020-07-31 02:39 | Outpatient (CLI) | payer MEDICARE, OTHER, SELFPAY ==
[2020-07-31 08:27] LABS: Abs Immature Grans 0.02 10^3/uL (0.0-0.06); Absolute Basophil Count 0.04 10^3/uL (0.0-0.2); Absolute Lymphocyte Count 2.02 10^3/uL (1.2-3.4); Absolute Monocyte Count 0.71 10^3/uL (0.1-0.8); Absolute Neutrophil Count 2.91 10^3/uL (1.2-6.7); Basophils % 0.7; Eosinophils % 6.6; HCT 40.9 % (40.0-50.0); HGB 13.5 g/dL (13.5-17.5); Immature Grans % 0.3; Lymphocytes % 33.1; MCH 30.8 pg (27.0-33.0); MCV 93.2 fL (80-95); Monocytes % 11.6; Neutrophils % 47.7; Nucleated RBC 0 %; Platelet Count 279 10^3/uL (130-400); RBC 4.39 10^6/uL (4.36-5.78); RDW 13.8 % (11.8-14.1); RDW-SD 47.4 fL
[2020-07-31 08:39] LABS: Hemoglobin A1C 5.9 % (<5.7)
[2020-07-31 09:58] LABS: ALT 36 U/L (16-63); AST 24 U/L (15-37); Alkaline Phosphatase 84 U/L (46-116); BUN 26 mg/dL (7-18); Bilirubin, Total 0.2 mg/dL (0.2-1.0); C-Reactive Protein 0.13 mg/dL (0.0-0.3); Calcium 8.6 mg/dL (8.5-10.1); Chloride 109 mmol/L (98-107); FREE T4 0.81 ng/dL (0.76-1.46); Glucose 101 mg/dL (74-106); Magnesium 2.4 mg/dL (1.8-2.4); Potassium 4.7 mmol/L (3.5-5.1); Sodium 145 mmol/L (136-145); TSH 2.31 uIU/mL (0.36-3.74); Total Protein 7.6 g/dL (6.4-8.2)
[2020-07-31 10:36] LABS: Calculated LDL 104 mg/dL (<100); Cholesterol 186 mg/dL (<200); HDL Cholesterol 41 mg/dL (40-60); Triglyceride 208 mg/dL (<150); Vitamin B12 570 pg/mL (193-986)
[2020-07-31 16:57] LABS: T3,Free 3.7 pg/mL (2.8-5.3)
[2020-08-02 16:56] LABS: Testosterone, Total 99 ng/dL (240-950)
== END 2020-07-31 02:40 | disposition home or self-care (01) ==
LOC: LBO 02:39
PROVIDERS: PCP Internal Medicine; Visit Provider Psychiatry & Neurology Psychiatry
DX: F31.13 Bipolar disorder, current episode manic without psychotic features, severe (principal); Z79.899 Other long term (current) drug therapy
CPT/HCPCS: 36415; 80053; 80061; 82306; 84403; 82607; 83036; 83735; 84439; 84443; 84481; 85025; 86140

== ENCOUNTER → 2020-09-16 14:28 | Outpatient (BNVA) | payer MEDICARE, OTHER, SELFPAY | PROVIDERS: PCP Internal Medicine; Visit Provider Urology | DX: C61 Malignant neoplasm of prostate (principal) | CPT/HCPCS: 99213 ==

== ENCOUNTER 2020-10-13 03:45 | Outpatient (CLI) | payer MEDICARE, OTHER, SELFPAY ==
[2020-10-13 11:22] LABS: Abs Immature Grans 0.02 10^3/uL (0.0-0.06); Absolute Basophil Count 0.04 10^3/uL (0.0-0.2); Absolute Eosinophil Count 0.26 10^3/uL (0.0-0.7); Absolute Lymphocyte Count 1.78 10^3/uL (1.2-3.4); Absolute Monocyte Count 0.54 10^3/uL (0.1-0.8); Absolute Neutrophil Count 3.74 10^3/uL (1.2-6.7); Basophils % 0.6; Eosinophils % 4.1; HCT 40.8 % (40.0-50.0); HGB 13.7 g/dL (13.5-17.5); Immature Grans % 0.3; Lymphocytes % 27.9; MCH 30.6 pg (27.0-33.0); MCHC 33.6 % (32.0-36.0); MCV 91.1 fL (80-95); MPV 9.3 fL (8.0-11.0); Monocytes % 8.5; Neutrophils % 58.6; Nucleated RBC 0 %; Platelet Count 256 10^3/uL (130-400); RBC 4.48 10^6/uL (4.36-5.78); RDW 12.8 % (11.8-14.1); RDW-SD 42.5 fL; WBC 6.38 10^3/uL (4.4-10.8)
[2020-10-13 12:11] LABS: ALT 41 U/L (16-63); AST 24 U/L (15-37); Albumin 4.3 g/dL (3.4-5.0); Alkaline Phosphatase 76 U/L (46-116); Anion Gap 10.4 mmol/L (3-11); BUN 26 mg/dL (7-18); Bilirubin, Total 0.4 mg/dL (0.2-1.0); CO2 25.6 mmol/L (21.0-32.0); CREATININE 1.2 mg/dL (0.70-1.30); Calcium 8.9 mg/dL (8.5-10.1); Chloride 106 mmol/L (98-107); Estimated GFR 59.51 (mL/min/1.73m2); Glucose 103 mg/dL (74-106); Potassium 4.7 mmol/L (3.5-5.1); Sodium 142 mmol/L (136-145); Total Protein 7.9 g/dL (6.4-8.2)
[2020-10-13 12:57] LABS: Calculated LDL 137 mg/dL (<100); Cholesterol 215 mg/dL (<200); HDL Cholesterol 47 mg/dL (40-60); Magnesium 2.4 mg/dL (1.8-2.4); TSH 0.93 uIU/mL (0.36-3.74); Triglyceride 156 mg/dL (<150); Vitamin B12 527 pg/mL (193-986)
[2020-10-13 13:03] LABS: Vitamin D 25 Total 24.5 ng/mL (30-100)
[2020-10-13 13:24] LABS: FREE T4 1.02 ng/dL (0.76-1.46)
[2020-10-13 16:11] LABS: T3,Free 2.5 pg/mL (2.8-5.3)
[2020-10-14 14:36] LABS: PSA, Ultrasensitive 0.06 ng/mL (<= 6.5)
[2020-10-16 16:41] LABS: Testosterone, Total 121 ng/dL (240-950)
== END 2020-10-13 03:46 | disposition home or self-care (01) ==
PROVIDERS: Internal Medicine Hematology & Oncology; Psychiatry & Neurology Psychiatry; PCP Internal Medicine; Visit Provider Nurse Practitioner Family
DX: C61 Malignant neoplasm of prostate (principal); C77.5 Secondary and unspecified malignant neoplasm of intrapelvic lymph nodes; Z15.01 Genetic susceptibility to malignant neoplasm of breast; Z15.09 Genetic susceptibility to other malignant neoplasm; F31.13 Bipolar disorder, current episode manic without psychotic features, severe; Z79.899 Other long term (current) drug therapy
CPT/HCPCS: 36415; 80053; 80061; 82306; 84153; 84403; 82607; 83036; 83735; 84439; 84443; 84481; 85025; 86140

== ENCOUNTER 2021-01-12 04:09 | Outpatient (CLI) | payer MEDICARE, OTHER, SELFPAY ==
[2021-01-12 10:18] LABS: Abs Immature Grans 0.02 10^3/uL (0.0-0.06); Absolute Basophil Count 0.06 10^3/uL (0.0-0.2); Absolute Lymphocyte Count 1.93 10^3/uL (1.2-3.4); Absolute Monocyte Count 0.66 10^3/uL (0.1-0.8); Absolute Neutrophil Count 3.37 10^3/uL (1.2-6.7); Basophils % 0.9; Eosinophils % 7.6; HCT 40.7 % (40.0-50.0); HGB 13.2 g/dL (13.5-17.5); Immature Grans % 0.3; Lymphocytes % 29.5; MCH 31.3 pg (27.0-33.0); MCHC 32.4 % (32.0-36.0); MCV 96.4 fL (80-95); MPV 8.9 fL (8.0-11.0); Monocytes % 10.1; Neutrophils % 51.6; Nucleated RBC 0 %; Platelet Count 294 10^3/uL (130-400); RBC 4.22 10^6/uL (4.36-5.78); RDW 12.5 % (11.8-14.1); RDW-SD 44.7 fL; WBC 6.54 10^3/uL (4.4-10.8)
[2021-01-12 11:32] LABS: ALT 27 U/L (16-63); AST 21 U/L (15-37); Alkaline Phosphatase 58 U/L (46-116); Anion Gap 5.3 mmol/L (3-11); BUN 21 mg/dL (7-18); Bilirubin, Total 0.2 mg/dL (0.2-1.0); CO2 31.7 mmol/L (21.0-32.0); Calcium 8.9 mg/dL (8.5-10.1); Chloride 107 mmol/L (98-107); Glucose 74 mg/dL (74-106); Potassium 4.8 mmol/L (3.5-5.1); Sodium 144 mmol/L (136-145); Total Protein 7.4 g/dL (6.4-8.2)
== END 2021-01-12 04:10 | disposition home or self-care (01) ==
LOC: LBO 04:09
PROVIDERS: Nurse Practitioner Family; PCP Internal Medicine; Visit Provider Internal Medicine Hematology & Oncology
DX: C61 Malignant neoplasm of prostate (principal); C77.5 Secondary and unspecified malignant neoplasm of intrapelvic lymph nodes; Z15.01 Genetic susceptibility to malignant neoplasm of breast; Z15.09 Genetic susceptibility to other malignant neoplasm
CPT/HCPCS: 36415; 80053; 84153; 85025

== ENCOUNTER 2021-04-10 01:50 | Outpatient (CLI) | payer MEDICARE, OTHER, SELFPAY ==
[2021-04-10 13:47] LABS: Abs Immature Grans 0.03 10^3/uL (0.0-0.06); Absolute Basophil Count 0.04 10^3/uL (0.0-0.2); Absolute Eosinophil Count 0.33 10^3/uL (0.0-0.7); Absolute Lymphocyte Count 3.04 10^3/uL (1.2-3.4); Absolute Monocyte Count 0.68 10^3/uL (0.1-0.8); Absolute Neutrophil Count 4.51 10^3/uL (1.2-6.7); Basophils % 0.5; Eosinophils % 3.8; HCT 38.8 % (40.0-50.0); HGB 12.7 g/dL (13.5-17.5); Immature Grans % 0.3; Lymphocytes % 35.2; MCH 31.1 pg (27.0-33.0); MCHC 32.7 % (32.0-36.0); MCV 95.1 fL (80-95); MPV 9.2 fL (8.0-11.0); Monocytes % 7.9; Neutrophils % 52.3; Nucleated RBC 0 %; Platelet Count 307 10^3/uL (130-400); RBC 4.08 10^6/uL (4.36-5.78); RDW 12.8 % (11.8-14.1); RDW-SD 44.5 fL; WBC 8.63 10^3/uL (4.4-10.8)
[2021-04-10 14:34] LABS: ALT 33 U/L (16-63); AST 25 U/L (15-37); Albumin 4.1 g/dL (3.4-5.0); Alkaline Phosphatase 59 U/L (46-116); Anion Gap 8.6 mmol/L (3-11); BUN 29 mg/dL (7-18); Bilirubin, Total 0.2 mg/dL (0.2-1.0); CO2 26.4 mmol/L (21.0-32.0); CREATININE 1.1 mg/dL (0.70-1.30); Chloride 103 mmol/L (98-107); Glucose 99 mg/dL (74-106); Potassium 4.5 mmol/L (3.5-5.1); Sodium 138 mmol/L (136-145); Total Protein 7.5 g/dL (6.4-8.2)
[2021-04-11 12:25] LABS: PSA, Ultrasensitive 0.19 ng/mL (<= 6.5)
== END 2021-04-10 01:51 | disposition home or self-care (01) ==
LOC: LBO 01:50
PROVIDERS: PCP Internal Medicine; Visit Provider Internal Medicine Hematology & Oncology
DX: C61 Malignant neoplasm of prostate (principal); C77.5 Secondary and unspecified malignant neoplasm of intrapelvic lymph nodes; Z15.01 Genetic susceptibility to malignant neoplasm of breast; Z15.09 Genetic susceptibility to other malignant neoplasm
CPT/HCPCS: 36415; 80053; 84153; 85025

== ENCOUNTER 2021-07-07 02:12 | Outpatient (CLI) | payer MEDICARE, OTHER, SELFPAY ==
[2021-07-07 09:11] LABS: Abs Immature Grans 0.02 10^3/uL (0.0-0.06); Absolute Basophil Count 0.04 10^3/uL (0.0-0.2); Absolute Eosinophil Count 0.34 10^3/uL (0.0-0.7); Absolute Lymphocyte Count 2.55 10^3/uL (1.2-3.4); Absolute Monocyte Count 0.89 10^3/uL (0.1-0.8); Basophils % 0.5; Eosinophils % 4.1; HCT 40.8 % (40.0-50.0); HGB 13.5 g/dL (13.5-17.5); Immature Grans % 0.2; Lymphocytes % 30.9; MCH 31.3 pg (27.0-33.0); MCHC 33.1 % (32.0-36.0); MCV 94 fL (80-95); MPV 9.1 fL (8.0-11.0); Monocytes % 10.8; Neutrophils % 53.5; Platelet Count 297 10^3/uL (130-400); RBC 4.32 10^6/uL (4.36-5.78); RDW 13.1 % (11.8-14.1); RDW-SD 45.4 fL; WBC 8.24 10^3/uL (4.4-10.8)
[2021-07-07 09:52] LABS: ALT 38 U/L (16-63); AST 33 U/L (15-37); Albumin 4.3 g/dL (3.4-5.0); Alkaline Phosphatase 73 U/L (46-116); Anion Gap 7.8 mmol/L (3-11); BUN 31 mg/dL (7-18); Bilirubin, Total 0.5 mg/dL (0.2-1.0); CO2 28.2 mmol/L (21.0-32.0); Calcium 9.1 mg/dL (8.5-10.1); Chloride 101 mmol/L (98-107); Glucose 120 mg/dL (74-106); Potassium 4.9 mmol/L (3.5-5.1); Sodium 137 mmol/L (136-145)
[2021-07-08 14:59] LABS: PSA, Ultrasensitive 0.26 ng/mL (<= 6.5)
[2021-07-09 01:55] LABS: Vitamin D 25 Total 33.2 ng/mL (30-100)
== END 2021-07-07 02:13 | disposition home or self-care (01) ==
LOC: LBO 02:12
PROVIDERS: PCP Internal Medicine; Visit Provider Internal Medicine Hematology & Oncology
DX: C61 Malignant neoplasm of prostate (principal); E55.9 Vitamin D deficiency, unspecified
CPT/HCPCS: 36415; 80053; 82306; 84153; 85025

== ENCOUNTER → 2021-09-15 14:24 | Outpatient (BNVA) | payer MEDICARE, OTHER, SELFPAY | PROVIDERS: PCP Internal Medicine; Referring Provider Internal Medicine; Visit Provider Urology | DX: C61 Malignant neoplasm of prostate (principal) | CPT/HCPCS: 99213 ==

== ENCOUNTER 2021-10-05 11:21 | Outpatient (CLI) | payer MEDICARE, OTHER, SELFPAY ==
[2021-10-05 11:27] LABS: Abs Immature Grans 0.02 10^3/uL (0.0-0.06); Absolute Basophil Count 0.04 10^3/uL (0.0-0.2); Absolute Lymphocyte Count 2.62 10^3/uL (1.2-3.4); Absolute Monocyte Count 0.71 10^3/uL (0.1-0.8); Basophils % 0.6; Eosinophils % 2.8; HCT 38.6 % (40.0-50.0); Immature Grans % 0.3; MCH 31.5 pg (27.0-33.0); MCHC 33.7 % (32.0-36.0); MCV 94 fL (80-95); MPV 8.9 fL (8.0-11.0); Neutrophils % 49.3; Platelet Count 293 10^3/uL (130-400); RBC 4.13 10^6/uL (4.36-5.78); RDW 12.9 % (11.8-14.1); RDW-SD 44.1 fL; WBC 7.09 10^3/uL (4.4-10.8)
[2021-10-05 12:17] LABS: ALT 27 U/L (16-63); AST 23 U/L (15-37); Albumin 4.1 g/dL (3.4-5.0); Alkaline Phosphatase 64 U/L (46-116); BUN 28 mg/dL (7-18); Bilirubin, Total 0.4 mg/dL (0.2-1.0); CREATININE 1.3 mg/dL (0.70-1.30); Calcium 9.1 mg/dL (8.5-10.1); Chloride 104 mmol/L (98-107); Estimated GFR 54.11 (mL/min/1.73m2); Glucose 110 mg/dL (74-106); Potassium 4.5 mmol/L (3.5-5.1); Sodium 138 mmol/L (136-145); Total Protein 7.8 g/dL (6.4-8.2)
[2021-10-07 09:41] LABS: PSA, Ultrasensitive 0.55 ng/mL (<= 6.5)
== END 2021-10-05 11:22 | disposition home or self-care (01) ==
LOC: LBO 11:23
PROVIDERS: PCP Internal Medicine; Visit Provider Internal Medicine Hematology & Oncology
DX: E55.9 Vitamin D deficiency, unspecified (principal); C61 Malignant neoplasm of prostate
CPT/HCPCS: 36415; 80053; 82306; 84153; 85025

== ENCOUNTER 2022-01-11 02:39 | Outpatient (CLI) | payer MEDICARE, OTHER, SELFPAY ==
[2022-01-12 11:18] LABS: PSA, Ultrasensitive 0.56 ng/mL (<= 6.5)
[2022-01-14 14:04] LABS: Testosterone, Total 58 ng/dL (240-950)
== END 2022-01-11 02:40 | disposition home or self-care (01) ==
LOC: LBO 02:39
PROVIDERS: PCP Internal Medicine; Visit Provider Nurse Practitioner Family
DX: C61 Malignant neoplasm of prostate (principal)
CPT/HCPCS: 36415; 84153; 84403

== ENCOUNTER → 2022-01-25 12:29 | Outpatient (CLI) | payer MEDICARE, OTHER, SELFPAY ==
--- NOTE | 2022-01-25 12:21 | DI.RAD_ITS ---
Exam(s) XR WRIST LT COMPLETE EXAM: XR WRIST LT COMPLETE CLINICAL HISTORY: LT WRIST PAIN, M25.532. TECHNIQUE: 2D digital imaging was performed. Three views. COMPARISON: No exams were available for comparison FINDINGS: BONES: There is an intra-articular fracture of the distal radius with mild separation at the articula r surface. The distal ulna and carpal bones appear intact. No bony destructive lesion is seen. JOINTS: The carpal bones are normally aligned. SOFT TISSUE: Swelling around carpal region. IMPRESSION: Intra-articular fracture of the distal radius. DATA REPOSITORY: RADIATION DOSE DELIVERED:
--- OUTSIDE RECORDS SUMMARY | 2022-01-25 12:38 | XMS_ITS | Encounter Summary ---
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 Malignant neoplasm of prostate [place], [place] HEMATOLOGY [facility]CO [facility] [address] [place], [place] [phone] (Wo rk) Social History Tobacco Use Types Packs/Day Years Used Date Smoking Tobacco: Never Smokeless Tobacco: Never Alcohol Use Standard Drinks/Week Comments Yes 0 (1 standard drink = 0.6 oz pure alcoho l) beer and wine twice a month Sex Assigned at Date Recorded Not on file documented as of this encounter Plan of Treatment Upcoming Encounters Date Type Specialty Care Team Description 02/04/2022 Office Visit Radiation Oncology Rama Ramos APRN [facility] RADIATION [place], [place] [address] (Wo rk) documented as of this encounter Visit Diagnoses Diagnosis 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
--- OUTSIDE RECORDS SUMMARY | 2022-01-25 12:38 | XMS_ITS | Encounter Summary ---
:1950 Author Organization [facility] [address] Care Team Providers Name Role Phone Celio Sanders MD Primary Care Provider Reason for Visit Reason Comments Injections Lupron Treatment/Therapy Plan Authorization (Routine) - Authorized Specialty Diagnoses / Procedures Referred By Contact Refer red To Contact Diagnoses Prostate cancer metastatic to intrapelvic lymph node Gael Anderson MD [facility] Hem Onc Office [address] [place] [address] [phone] [place] [address] Phone: Fax: Referral ID Status Reason Start Date Expiration Date Visits V isits Requested Authorized [id number] Authorized 11/15/2017 11/15/2018 1 1 Encounter Details Date Type Department Care Team Description 11/16/2018 Infusion Hematology Oncology at [facility] cancer metastatic [facility] to intrapelvic lymph node [address] [place] [phone] Social History Tobacco Use Types Packs/Day Years Used Date Smoking Tobacco: Never Smokeless Tobacco: Never Alcohol Use Standard Drinks/Week Comments Yes 0 (1 standard drink = 0.6 oz pure alcoho l) beer and wine twice a month Sex Assigned at Date Recorded Not on file documented as of this encounter Progress Notes Caio Venegas RN - 11/16/2018 2:30 PM EDT Infusion Note Diagnosis:Prostate Cancer Treatment: Lupron Injection Lupron 22.5 mg injected IM in right buttocks. Patient instructed on side effects of Lupron. Patient states understanding of teaching. Patient aware to call clinic with any questions or concerns. Plan: Return to clinic as scheduled. documented in this encounter Plan of Treatment Upcoming Encounters Date Type Specialty Care Team Description 02/04/2022 Office Visit Radiation Oncology Rama Ramos, [facility] RADIATION [place], [place] [address] (Wo rk) documented as of this encounter Visit Diagnoses Diagnosis 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 documented in this encounter Administered Medications Inactive Administered Medications - up to 3 most recent administrations Medication Order MAR Action Action Date Dose Rate Site leuprolide (LUPRON DEPOT) Given 11/16/2018 1:53 PM 22.5 mg Right Gluteal injection 22.5 mg EDT 22.5 mg, Intramuscular, ONCE, 1 dose, On Colleen 11/16/18 at 1400, Routine, This agent is restricted to outpatient use. Is this drug being given as an outpatient? 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
--- OUTSIDE RECORDS SUMMARY | 2022-01-25 12:38 | XMS_ITS | Encounter Summary ---
:1950 Author Organization [facility] [place] [address] Care Team Providers Name Role Phone Celio Sanders MD Primary Care Provider Encounter Details Date Type Department Care Team Description 05/04/2019 Office Visit Hematology/Oncology Bay Barillas MD [facility] [place] [address] Mal[facility] [address] [place] [address] [place] [address] [place] [phone] Social History Tobacco Use Types Packs/Day Years Used Date Smoking Tobacco: Never Smokeless Tobacco: Never Alcohol Use Standard Drinks/Week Comments Yes 0 (1 standard drink = 0.6 oz pure alcoho l) beer and wine twice a month Sex Assigned at Date Recorded Not on file documented as of this encounter Last Filed Vital Signs Vital Sign Reading Time Taken Comments Blood Pressure 130/75 05/04/2019 11:09 AM EST Pulse 84 05/04/2019 11:09 AM EST Temperature 36.3 ??C (97.3 ??F) 05/04/2019 11:09 AM EST Respiratory Rate 16 05/04/2019 11:09 AM EST Oxygen Saturation 98% 05/04/2019 11:09 AM EST Inhaled Oxygen Concentration - - Weight 80.3 kg (177 lb) 05/04/2019 11:09 AM EST Height - - Body Mass Index 30.82 05/02/2019 9:28 AM EST documented in this encounter Progress Notes Remy Barillas MD - 05/04/2019 11:00 AM EST Subjective: Patient ID: Nain Mckeon is a 68 y.o. male. Problem List: 1. Prostate cancer, cT2b, N1 A. Presented with hematuria TRUS prostate biopsies 04/2016 - Adenocarcinoma in 5/12 cores (all on right side), T2b, [place] 8 Darlyn-neural invasion present PSA - 47.5 B. Staging: Staging bone scan negative CT abd/pelvis 05/2016 - Impression: 1. Enlarged prostate gland. Loss of fat plane between the prostate and the rectum. Infiltration of the bowel by tumor cannot be excluded. 2. Enlarged right internal iliac lymph node. Metastatic disease cannot be excluded. MRI pelvis 08/2016 - IMPRESSION 1. Limited MRI performed for radiation treatment planning purposes. 2. Based on T2 signal alone, there is suspected malignancy in the right peripheral zone with extraprostatic extension. 3. Suspicious right internal iliac and right common femoral lymph nodes based on size and morphology. C. Plan: Radiation with 3 years of ADT D. First Lupron injection 05/31/16 and bicalutamide EBRT - 79.2 Gy to prostate, right obturator and prox SV; 70.2 Gy to entire SV; 45 Gy to pelvis - 08/24/16 to 10/27/16 E. Began abiraterone, 250 mg per day plus prednisone in 06/2017 Stopped in 08/2017 due to exacerbation of bipolar disorder while on prednisone F. CT abd/pelvis 04/27/19 - Impression: Interval decrease in size of prostate. No evidence of adenopathy or metastatic disease. (previouslyseen right iliac chain LN no longer seen). 2. Hypothyroidism 3. Hyperlipidemia 4. Bipolar disease 5. S/p cholecystectomy 6. S/p appendectomy 7. Psoriasis 8. Colonoscopy 07/2013 - negative 9. 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 At the time of the appointment, Nain was provided with a printed copy of his test result and an informational packet addressing a positive test result. ?? The following 47 genes were evaluated for sequence changes and exonic deletions/duplications: APC, RUMA, AXIN2, BARD1, BMPR1A, BRCA1, BRCA2, BRIP1, CDH1, CDK4, CDKN2A (p14ARF), CDKN2A ([id number]), CHEK2,CTNNA1, DICER1, EPCAM (EPCAM: Deletion/duplication testing only ([id number]), GREM1 (GREM1: Promoter region deletion/duplication testing only.),HOXB13, KIT, MEN1, MLH1, MSH2, MSH3, MSH6, MUTYH, NBN, NF1, NTHL1, PALB2, PDGFRA, PMS2, POLD1, POLE, PTEN, RAD50, RAD51C, RAD51D, SDHB, SDHC, SDHD, SMAD4, SMARCA4, STK11, TP53, TSC1, TSC2, VHL. The following gene was evaluated for sequence changes only: SDHA. ?? Variants of uncertain significance (VUS) in the AXIN2 and CTNNA1 genes, specifically c.1531A>T (p.[id number]) and c.515A>T (p.[id number]), were detected. ? Interpretation: The most significant consequences of carrying a pathogenic variant in BRCA2 are increased risks for breast cancer and ovarian cancer in women. For men, the most significant consequence is for prostate cancer so this finding is felt to be related to Nain's cancer. Other cancers associated with BRCA2 are breast cancer in men, pancreatic, and melanoma. It is important to keep in mind that not all individuals who inherit a mutation in the BRCA2 gene will develop cancer. Having a BRCA2 mutation may make Nain eligible for treatment with PARP inhibitors, oral medication that can be helpful in the setting of metastatic prostate cancer ??This potential option should be discussed with his oncologist. ?? We reviewed dominant inheritance. With this type of inheritance you only need to inherit one copy ofthe altered gene to have an increased risk for cancer. Since we all have 2 copies of each gene, one from each parent, there is a 50% chance for each child of a parent who has the mutation to inherit the normal copy of the gene and not be at increased risk for the cancer running in the family. There isalso a 50% chance for each child to inherit the altered copy of the gene and therefore be at increased risk for cancer. ? Nain's sons each has a 50% (1/2) chance of having inherited the altered gene. They should consider genetic testing to learn whether they are at increased risk. ?? Nain's sister has a 50% chance of having inherited the altered gene and should consider testing. Nain does not currently have any contact with his sister so is unable to alert her to her potential risk. ?? Based on the family history, it is not clear which side of the family this was likely inherited from. Unfortunately Nain does not have contact with his extended family so is unable to share this information with them. ?? Nain's sons live in [place] and [place]. They can go to the website of the National Societyof Genetic Counselors at www.nsgc.org in order to find a counselor in their area who can help them to arrange for genetic testing. ?? It is important to also be aware that a rare autosomal recessive, childhood- onset cancer syndrome, called Fanconi Anemia, can occur if both partners are carriers of mutations in the BRCA2 gene. For anyindividuals who test positive who are considering having children, genetic testing for BRCA2 mutations in their partners may be warranted. Reproductive options are also available to those interested inpreventing passing this condition to their future children. A consultation with a genetic counselor may be warranted for family members who have reproductive concerns. ?? Variants of uncertain significance t is unclear at this time whether the AXIN2 and CTNNA1 VUS identified in Nain are cancer-associated mutations or a benign changes in the gene with no increased cancer risks. [facility] is continually collecting and analyzing their data, in an effort to reclassify these variants as either cancer-causing mu tations or benign changes. It is important to remember that a vast majority of variants of uncertainsignificance are normal, benign changes in the gene. We will be contacted by the laboratory, in the future, if a reclassification is made and we would then notify Nain. It is important that Nain's phone number and mailing address stay updated in the [employer] system, in order for us to reachhim in the future, should an amended report be issued. Family members should not have testing for these variants at this time. ? Screening Recommendations for Men with a BRCA2 mutation: Breast Cancer Screening ? Monthly self breast exams starting at age 35. ? Clinical breast exams every 6-12 months starting at age 35. ? Consider baseline mammogram at age 40; annual mammogram if gynecomastia or parenchymal/glandular breast density on baseline study. ?? Pancreatic cancer screening Some families with mutations in BRCA2 also show an increased incidence of pancreatic cancer. The twomain risk factors, in the general population, for pancreatic cancer are smoking and heavy drinking. Although there is no clear data on the risks of combining smoking and heavy drinking with being a BRCA2 carrier, this test result should be thought of as another good reason, among many others, for Jose to engage in either activity. Family members, especially those who test positive, should also bediscouraged from smoking or drinking heavily. ?? We discussed with Nain that there is no established screening; however, BRCA2 carriers with a familyhistory of pancreatic cancer can consider pancreatic cancer screening. Current expert opinion recommends consideration of pancreatic cancer screening in individuals with a BRCA2 mutation who have a family history of pancreatic cancer (on the same side of the family as the mutation) and are either a) 50 years old or b) 10 years younger than the earliest exocrine pancreatic cancer diagnosis in the family. Nain's maternal aunt had pancreatic cancer at age 35. It is not known if she had a BRCA2 mutation. Given this history, Nain meets criteria for screening. His risk for pancreatic cancer is about 3%. Based on this he indicated that he is not currently interested in pursuing screening. Should he desire to discuss this possibility in the future, Dr. Ara Mary, a paste mixer at [facility] [place], is willing to discuss these screening options with Nain. Nain can schedule an appointment with her by reaching her medical secretary at [phone]. ?? Prostate Cancer Screening for Nain's sons ? Prostate cancer screening starting at age 40. If either of them is found to not have the BRCA2 mutation then they can consider screening beginning at age 50 which is the recommendation for men in thegeneral population ?? Skin cancer screening ?? Periodic skin exams ?? Colon cancer screening ?? Periodic colonoscopy screening as recommended by Nain's paste mixer. ?? HPI Mr. Mckeon is seen in f/u of prostate cancer. This is his first visit with me. On presentation today, he is accompanied by his Yaneth. He seems to be doing well overall. His weight is a couple of pounds lower than it was in February. He seems to be a little worried about this. He says he eats well although his says he eats more sweets than he should. He walks up to 2 miles or so per day. They got a new dog in November. After this his activity level increased. This maybe part of the weight loss. His urinary habits are stable. He has not been having to get up at nightto urinate lately. Soc Hx: , lives in [place], [place]. He goes to [place] from December to June. 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 Also had alzheimer's disease Mother had colon cancer, diagnosed in her 50s Pat Aunt had breast cancer in her 80s Pat Aunt had uterine cancer Mat aunt had pancreatic cancer in her 30s or 40s They have 2 sons, both in good health Review of Systems Constitutional: Positive for fatigue. Negative for activity change. HENT: Negative. Respiratory: Negative. Cardiovascular: Negative. Gastrointestinal: Negative. Genitourinary: Negative. Musculoskeletal: Negative. Skin: Negative. Neurological: Negative. Hematological: Negative. Psychiatric/Behavioral: Negative. Objective: Physical Exam Vitals signs reviewed. Constitutional: General: He is not in acute distress. Appearance: He is well-developed. HENT: Head: Normocephalic and atraumatic. Mouth/Throat: Pharynx: No oropharyngeal exudate. Eyes: General: No scleral icterus. Cardiovascular: Rate and Rhythm: Normal rate and regular rhythm. Pulmonary: Effort: Pulmonary effort is normal. No respiratory distress. Breath sounds: No wheezing. Abdominal: General: There is no distension. Palpations: Abdomen is soft. There is no mass. Tenderness: There is no abdominal tenderness. There is no guarding. Genitourinary: Comments: Breast exam - no masses noted in either breast. Nipples everted. Lymphadenopathy: Cervical: No cervical adenopathy. Upper Body: Right upper body: No supraclavicular adenopathy. Left upper body: No supraclavicular adenopathy. Lower Body: No right inguinal adenopathy. No left inguinal adenopathy. Skin: General: Skin is warm and dry. Findings: No erythema. Neurological: Mental Status: He is alert and oriented to person, place, and time. Coordination: Coordination normal. Psychiatric: Behavior: Behavior normal. Labs: WBC/ANC - 5., Hgb/Hct - 14.5/42.9, Plts - 274,000. BUN/Cr - 17/1.11. Lytes and LFTs unremarkable PSA 04/27/19 <0.01 01/31/19 <0.1 08/11/18 <0.1 11/15/17 <0.1 06/23/17 <0.1 04/[address] personally reviewed, report above Assessment and Plan: Mr. Mckeon is a 68 yo male seen in f/u of high risk prostate cancer. He was diagnosed with prostate cancer in 2016 after presenting with hematuria and found to have an abnormal prostate gland on exam. TRUS prostate bx showed adenocarcinoma in 5/12 cores, all on the right. Andre score was 8 in two of the biopsies and perineural invasion was present. The PSA was elevated at 47. Staging bone was negative. CT abd/pelvis and MRI pelvis showed a suspicious internal iliac LN. He met with Urology, Radiation Oncology and Medical Oncology. The plan was for EBRT to include the pelvic LN with concurrent ADT times 3 years. He received the first Lupron injection in 05/2016. He received radiation from 08/24/16 to 10/24/16. He has continued every three month lupron injections. In 06/22, he was started on abiraterone at a reduced dose of 250 mg per day and prednisone. This was stopped in 08/22 due to an exacerbation of bipolar disease. The PSA remains undetectable and overall he continues to do very well. A CT abd/pelvis was done on 04/27/19 and shows that the right iliac LN seen in 2016 is no longer seen. We will go ahead with a lupron injection today. This is the last planned injection. I will continue to follow him and will plan to see him in three months with a PSA. Given his personal and family history, we made a referral to our Familial Cancer Program. In 03/2019 genetic testing was performed and shows a pathogenic mutation in BRCA2. The recommendations based on this are summarized in the problem list above. Although patients with BRCA mutations may benefit fromtherapy with PARP inhibitors, there is no role in the absence of metastatic disease, as in the current setting (the indication is in castrate resistant metastatic disease). Genetic testing would be recommended for his sons and sister and he has discussed this with them. For him personally, it is recommended that a mammogram be considered. Periodic skin exams and colonoscopy are also recommended. Because of the family history of pancreatic cancer, the option of discussing screening with Dr. Mary was mentioned by the Genetics team and he opted not do that at this time. documented in this encounter Plan of Treatment Upcoming Encounters Date Type Specialty Care Team Description 02/04/2022 Office Visit Radiation Oncology Rama Ramos, BACTERIOLOGY TECHNICIAN [facility] RADI[facility] [place], [place] [address] (Wo rk) documented as of this encounter Visit Diagnoses Diagnosis Malignant neoplasm of prostate documented in this encounter Care Teams Supervisor Blood Relationship Specialty Start Date End Date Celio Sanders MD PCP - General Internal Medicine 05/19/16 [address] [place] [address] documented as of this encounter
--- OUTSIDE RECORDS SUMMARY | 2022-01-25 12:38 | XMS_ITS | Encounter Summary ---
:1950 Author Organization [facility] [place] [address] Care Team Providers Name Role Phone Celio Sanders MD Primary Care Provider Encounter Details Date Type Department Care Team Description 05/12/2021 Surgery Gastroenterology at [facility] Nicky Bray, COLONOSCOPY, [facility] [place] [address] [facility] [phone] [place], [place] [address] Social History Tobacco Use Types Packs/Day Years Used Date Smoking Tobacco: Never Smokeless Tobacco: Never Alcohol Use Standard Drinks/Week Comments Not Currently 0 (1 standard drink = 0.6 oz pure alcoho l) beer and wine twice a month Sex Assigned at Date Recorded Not on file documented as of this encounter Last Filed Vital Signs Vital Sign Reading Time Taken Comments Blood Pressure 116/60 05/12/2021 3:30 PM EST Pulse 86 05/12/2021 1:52 PM EST Temperature 36.7 ??C (98 ??F) 05/12/2021 1:52 PM EST Respiratory Rate 18 05/12/2021 1:52 PM EST Oxygen Saturation 100% 05/12/2021 3:30 PM EST Inhaled Oxygen Concentration - - Weight - - Height - - Body Mass Index - - documented in this encounter Medications at Time of Discharge Medication Sig Dispensed Refills Start Date End Date cholecalciferol, vitamin Take by mouth. 0 D3, (VITAMIN D3 ORAL) lactobacillus rhamnosus, Take 1 capsule by 0 GG, (CULTURELLE) 10 mouth daily. billion cell Capsule vitamin E mixed (NATURAL Take by mouth. 0 VITAMIN E ORAL) DULoxetine DR (Cymbalta) TAKE 1 CAPSULE BY 0 06/2020 30 mg Capsule, Delayed MOUTH TWICE DAILY Release(E.C.) clonazePAM (KlonoPIN) 1 mg TAKE 1 TABLET BY 0 01/2021 Tablet MOUTH TWICE DAILY melatonin 5 mg Tablet TAKE 1 AND 1/2 0 06/15/2020 TABLETS BY MOUTH AT BEDTIME FluZONE High-Dose 2018-20, INJECT AT PHARMACY 0 1 03/24/2018 PF, 180 mcg/0.5 mL Syringe multivitamin (THERAGRAN) Take 1 tablet by 0 Tablet mouth nightly. lamoTRIgine (LAMICTAL) 150 Take 1 tablet by 30 tablet 1 01/2018 mg Tablet mouth daily. TURMERIC ROOT EXTRACT ORAL Take 1 capsule by 0 mouth 2 times daily. pravastatin (PRAVACHOL) 40 Take 40 mg by mouth 0 mg Tablet daily. LEVOTHYROXINE SODIUM Take 75 mcg by mouth 0 (LEVOTHROID ORAL) daily. documented as of this encounter H&P Notes Nicky Bray MD - 05/12/2021 2:18 PM EST Patient Name: Nain Mckeon Patient Age: 70 y.o. Birthdate: 1950 Admit date: 05/12/2021 Attending Physician: Nicky Bray MD Gastroenterology and Hepatology Pre-Procedure History and Physical Exam Procedure: Colonoscopy: Indication: Mother with colon cancer over the age 60, no prior history of polyps Patient Active Problem List Diagnosis Code ??? Foreign travel Z78.9 ??? 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 C61,C77.5 ??? Bipolar II disorder F31.81 ??? Hypothyroidism E03.9 ??? Hyperlipidemia E78.5 ??? Hx of appendectomy Z90.49 ??? Hx laparoscopic cholecystectomy Z90.49 ??? 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 Bipolar disorder, current episode manic without psychotic features, moderate F31.12 EXAM: HEENT: Airway examined, oropharynx clear Mallampati Score: II (soft palate, uvula, fauces visible) LUNGS: Clear to auscultation HEART: Regular rate and rhythm, normal S1, S2 ABDOMEN: Normal bowel sounds, soft, non tender, non distended, A/P Proceed with the planned endoscopic procedure. ASA 2 - Patient with mild systemic disease with no functional limitations Sedation Plan: anesthesia Risks and benefits of the procedure explained to the patient. Consent signed. documented in this encounter Plan of Treatment Upcoming Encounters Date Type Specialty Care Team Description 02/04/2022 Office Visit Radiation Oncology Rama Ramos APRN [facility] RADIATION [place], [place] [address] (Wo rk) documented as of this encounter Procedures Procedure Name Priority Date/Time Associated Comments Diagnosis SPECIMEN TO PATHOLOGY Routine 05/12/2021 3:10 PM Results for this EST procedure are i n the results section. SURGICAL PATHOLOGY Routine 05/12/2021 2:59 PM Res ults for this REPORT EST procedure are i n the results section. COLONOSCOPY, 05/12/2021 2:31 PM BRCA gene mutation DIAGNOSTIC EST positive COLONOSCOPY Routine 05/12/2021 2:18 PM Results f or this EST procedure are i n the results section. documented in this encounter Results Specimen to Pathology (05/12/2021 3:10 PM EST) Specimen Anatomical Collection Method Collection Time Receive d Time (Source) Location / / Volume Laterality AP Specimen 05/12/2021 3:10 PM 3:10 EST PM EST Narrative [facility] - 05/12/2021 3:10 PM EST Specimen requisition ordered. ??Separate Pathology report to follow Nicky Bray MD PATHOLOGY/CYTOLOGY ORDERABLE S Performing Organization Address City/State/[place] [address] Surgical Pathology Report (05/12/2021 2:59 PM EST) Component Value Ref Test Analysis Performed At [facility] gist Range Method Time Signature Surgical [id number] ? Location: 4T; EA12; [facility] Pathology [place] Report The signing pathologist has (i) examined the relevant preparation(s) for the [facility] specimen(s) and (ii) rendered or confirmed the diagnosis(es) . HOSPITAL LABORATORY . ?Surgic al Pathology DIAGNOSIS A - Descending colon polyp 3mm, excision: - ??Tubular adenoma. CR-PX Electronically signed by: ?Michelle MUNOZ, Eduard Verified: ??05/14/2021 15:49 ??Pathologist Performed at: ??-[facility] Dept. of Pathology, [place], [place] SPECIMEN(S) SUBMITTED A - Descending colon polyp 3mm, excision (1) CLINICAL INFORMATION 70 years old male/colonoscop y/mother with colon cancer over the age 60, no prior history of polyps SPECIMEN PROCESSING A - Labeled/Fixative: Descending colon polyp, 3 mm, formalin . Quantity/Size: Single, 0.3 cm. Tissue Description: Polypoid, rosales-pink s oft tissue admixed with bowel content. Sections/Processing: Inked, bisected and entirely submitted in 1 cassette labeled A1. ??pps Specimen (Source) Anatomical Collection Method Collection Time Re ceived Time Location / / Volume Laterality 05/12/2021 2:59 PM EST Nicky Bray MD PATHOLOGY/CYTOLOGY ORDERABLE S Performing Organization Address City/State/ZIP [place] [address] [facility] [address] COLONOSCOPY (05/12/2021 2:18 PM EST) [facility] gist Method Time Signature COLONOSCOPY [facility] Endoscopy Procedure Date: 05/12/2021 2:18 PM ? Patient Name: Nain Mckeon ? Date of : 1950 ? Age: 70 ? Order #: [id number] ? Instrument Name: [id number] ? Procedure: ? Colonoscopy Indications: ? Screening patient at increased risk : ? Family history of 1st-degree relative ? with colorectal cancer at age 60 ? years (or older) Providers: ? Nicky Bray MD, Sav Platt ? Ivon Angel T echnician Referring MD: ?Celio Sanders MD Medicines: ? Monitored Anesthesia Care Complications: ? No immediate complications. Procedure: ? Pre-Anesthesia Assessment: ? - Prior to the procedure, a H istory ? and Physical was performed, a nd ? patient medications and aller gies ? were reviewed. The patient's ? tolerance of previous anesthe aldo was ? also reviewed. The risks and benefits ? of the procedure and the marlen tion ? options and risks were discus sed with ? the patient. All questions we re ? answered, and informed consen t was ? obtained. Prior Anticoagulant s: The ? patient has taken no previous ? anticoagulant or antiplatelet agents. ? ASA Grade Assessment: II - A patient ? with mild systemic disease. A fter ? reviewing the risks and benef its, the ? patient was deemed in satisfa ctory ? condition to undergo the proc edure. ? The procedure, indications, b enefits, ? risks and alternatives were e xplained ? to the patient. Specifically ? discussed were potential ? complications including, but not ? limited to, bleeding, perfora tion, ? infection, missing a cancer, and ? adverse medication reactions. The ? patient was placed in the lef t ? lateral decubitus position, a nd a ? digital rectal exam was perfo rmed. ? The Colonoscope was inserted in the ? anus and under direct visuali zation, ? advanced to the cecum, identi fied by ? appendiceal orifice and ileoc ecal ? valve. Careful inspection was made as ? the colonoscope was withdrawn . The ? quality of the bowel preparat ion was ? evaluated using the BBPS (Jerry ton ? Bowel Preparation Scale) with scores ? of: Right Colon = 3, Transver se Colon ? = 3 and Left Colon = 3 (entir e mucosa ? seen well with no residual st aining, ? small fragments of stool or o paque ? liquid). The total BBPS score equals ? 9. Withdrawal time was 14 min utes. ? Findings: ? The perianal and digital rectal examinations were ? normal. ? The terminal ileum appeared normal. ? A 3 mm polyp was found in the descending colon. The ? polyp was sessile. The polyp was removed with a cold ? snare. Resection and retrieval were complete. ? Estimated blood loss: none. ? The sigmoid colon, transverse colon, ascending colon ? and cecum appeared normal. ? The retroflexed view of the distal rectum and anal ? verge was normal and showed no anal or rectal ? abnormalities. ? Moderate Sedation: ? Not applicable - See Anesthesia documentation Impression: ?- The examined portion of the ileu m ? was normal. ? - One 3 mm polyp in the desce nding ? colon, removed with a cold sn are. ? Resected and retrieved. ? - The sigmoid colon, transver se ? colon, ascending colon and ce cum are ? normal. ? - The distal rectum and anal verge ? are normal on retroflexion vi ew. Recommendation: ?- Await pathology results. ? - Repeat colonoscopy date to be ? determined after pending path ology ? results are reviewed for surv eillance. ? - Return to referring physici an. ? Procedure Code(s): ?? --- Professional --- ? 64891, Colonoscopy, flexible; with ? removal of tumor(s), polyp(s) , or ? other lesion(s) by snare tech chantel CPT copyright 2019 [employer]. All rights reserved. The codes documented in this report are preliminary and upon braille coder review may be revised to meet current compliance requirements. Attending Participation: ? I personally performed the entire procedure. ? Nicky Bray MD Nicky Bray MD 05/12/2021 3:10:50 PM This report has been signed electronically. Number of Addenda: 0 Note Initiated On: 05/12/2021 2:18 PM Specimen (Source) Anatomical Collection Method Collection Time Re ceived Time Location / / Volume Laterality 05/12/2021 2:18 PM EST Celio Sanders MD GENERAL SURGICAL ORDERABLES Performing Organization Address City/State/ZIP Code Phon e Number [facility] documented in this encounter Visit Diagnoses Not on filedocumented in this encounter Administered Medications Inactive Administered Medications - up to 3 most recent administrations Medication Order MAR Action Action Date Dose Rate Site lactated ringers infusion Restarted 05/12/2021 2:23 PM EST 100 mL/hr, Intravenous, CONTINUOUS, Starting on 05/12/21 at 1400, Until 05/12/21 at 1535, Endoscopy (Day of Procedure) New Bag 05/12/2021 2:00 PM EST 100 mL/hr 100 mL/hr documented in this encounter Active and Recently Administered Medications Times are shown in EST. Continuous Medication Order 05/10/2021 05/11/2021 05/12/2021 lactated ringers infusion (CANCELED) 1400 (New Bag - Provider: Sam Helms RN)1422 (Paused - Provider: Tarun Brambila CRNA - Comment: Switch to gravity)1423 (Restarted - Provider: Tarun Brambila CRNA)1508 (Anesthesia Volum e Adjustment - Provider: Tarun Brambila CRNA) 100 mL/hr, Intravenous, CONTINUOUS, Star ting on 05/12/21 at 1400, Until 05/12/21 at 1535, Endoscopy (Day of Procedure) documented in this encounter Care Teams Purchasing And Claims Supervisor Relationship Specialty Start Date End Date Celio Sanders MD PCP - General Internal Medicine 05/19/16 [address] [place] [address] documented as of this encounter
--- OUTSIDE RECORDS SUMMARY | 2022-01-25 12:38 | XMS_ITS | Encounter Summary ---
:1950 Author Organization [facility] [place] [address] Care Team Providers Name Role Phone Celio Sanders MD Primary Care Provider Encounter Details Date Type Department Care Team Description 04/04/2020 Office Visit Hematology/Oncology Bay Barillas MD [facility] [place] [address] Prostate cancer at [facility] Swathi Uriostegui APRN [address] [place] [address] [place] [address] [address] [place] [address] Drive intrapelvic lymph [place], [place] node [phone] Social History Tobacco Use Types Packs/Day Years Used Date Smoking Tobacco: Never Smokeless Tobacco: Never Alcohol Use Standard Drinks/Week Comments Yes 0 (1 standard drink = 0.6 oz pure alcoho l) beer and wine twice a month Sex Assigned at Date Recorded Not on file documented as of this encounter Last Filed Vital Signs Vital Sign Reading Time Taken Comments Blood Pressure 147/80 04/04/2020 2:19 PM EST Pulse 81 04/04/2020 2:19 PM EST Temperature 36.3 ??C (97.3 ??F) 04/04/2020 2:19 PM EST Respiratory Rate 18 04/04/2020 2:19 PM EST Oxygen Saturation 98% 04/04/2020 2:19 PM EST Inhaled Oxygen Concentration - - Weight 76.9 kg (169 lb 8 oz) 04/04/2020 2:19 PM EST Height 160 cm (5' 2.99) 04/04/2020 2:19 PM EST Body Mass Index 30.03 04/04/2020 2:19 PM EST documented in this encounter Progress Notes Swathi Uriostegui, KENNY - 04/04/2020 2:30 PM EST Subjective: Patient ID: Nain Mckeon is a 69 y.o. male. Patient Active Problem List Diagnosis ??? Toxic encephalopathy ??? Bipolar disorder, current episode manic without psychotic features, moderate ??? Bipolar II disorder ??? Hypothyroidism ??? Hyperlipidemia ??? Hx of appendectomy ??? Hx laparoscopic cholecystectomy ??? Prostate cancer metastatic to intrapelvic lymph node ??? 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 Foreign travel HPI Nain Mckeon is a 68 y.o. male. Problem List: 1. Prostate cancer, cT2b, N1 A. Presented with hematuria TRUS prostate biopsies 04/2016 - Adenocarcinoma in 5/12 cores (all on right side), T2b, Andre 8 Darlyn-neural invasion present PSA - 47.5 ?? B. Staging: Staging bone scan negative CT abd/pelvis 05/2016 - Impression: 1. Enlarged prostate gland. Loss of fat plane between the prostate and the rectum. Infiltration of the bowel by tumor cannot be excluded. 2. Enlarged right internal iliac lymph node. Metastatic disease cannot be excluded. MRI pelvis 08/2016 - IMPRESSION 1. ??Limited MRI performed for radiation treatment planning purposes. 2. ??Based on T2 signal alone, there is suspected malignancy in the right peripheral zone with extraprostatic extension. 3. ??Suspicious right internal iliac and right common femoral lymph nodes based on size and morphology. ?? C. Plan: Radiation with 3 years of [...] right iliac chain LN no longer seen). ?? 2. Hypothyroidism 3. Hyperlipidemia 4. Bipolar disease 5. S/p cholecystectomy 6. S/p appendectomy 7. Psoriasis 8. Colonoscopy 07/2013 - negative 9. Genetic testing 03/2018 - Result: [facility]'s??Common Hereditary Cancers Panel??showed that Nain?Jessycarries a pathogenic variant (mutation) in BRCA2 specifically c.1929del(p.[id number]). 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 At the time of the appointment,??Nain??was provided with a printed copy of his??test result and an informational packet addressing a positive test result. ?? The following??47??genes were evaluated for sequence changes and exonic deletions/duplications: APC,RUMA, AXIN2, BARD1, BMPR1A, BRCA1, BRCA2, BRIP1, CDH1, CDK4, CDKN2A (p14ARF), CDKN2A ([id number]), CHEK2, CTNNA1, DICER1, EPCAM (EPCAM: Deletion/duplication testing only ([id number]), GREM1 (GREM1: Promoter region deletion/duplication testing only.),HOXB13, KIT, MEN1, MLH1, MSH2, MSH3, MSH6, MUTYH, NBN,NF1, NTHL1, PALB2, PDGFRA, PMS2, POLD1, POLE, PTEN, RAD50, RAD51C, RAD51D, SDHB, SDHC, SDHD, SMAD4, SMARCA4, STK11, TP53, TSC1, TSC2, VHL. ??The following gene was evaluated for sequence changes only: ??SDHA. ? Variants??of uncertain significance (VUS) in the AXIN2 and CTNNA1??genes, specifically c.1531A>T (p.[id number]) and c.515A>T (p.Kel966Sdo), were??detected. ? Interpretation: The most significant consequences of carrying a pathogenic variant in BRCA2 are increased risks for breast cancer and ovarian cancer??in women.??For men, the most significant consequence is for prostate cancer so this finding is felt to be related to Nain's cancer.??Other cancers associated with AUHI4ujb??breast cancer in men,??pancreatic, and melanoma. ??It is important to keep in mind that not allindividuals who inherit a mutation in the BRCA2 gene will develop cancer. ??Having a BRCA2??mutationmay make Nain??eligible for treatment with PARP inhibitors, oral medication that can be helpful in the setting of metastatic prostate cancer?This potential option should be discussed with??his??oncol ogist. ?? We reviewed dominant inheritance. ??With this type of inheritance you only need to inherit one copy of the altered gene to have an increased risk for cancer. ??Since we all have 2 copies of each gene, one from each parent, there is a 50% chance for each child of a parent who has the mutation to inherit the normal copy of the gene and not be at increased risk for the cancer running in the family. ??There is also a 50% chance for each child to inherit the altered copy of the gene and therefore be at increased risk for cancer. ? Nain's sons??each has a 50% (1/2) chance of having inherited the altered gene. ??They should consider??genetic testing ??to learn whether they are at increased risk. ?? Nain's sister??has a 50% chance of having inherited the altered gene and should consider testing.Nain does not currently have any contact with his sister so is unable to alert her to her potential risk. ?? Based on??the??family history, ??it is not clear which side of the family this was likely inherited from. ??Unfortunately Nain does not have contact with his extended family so is unable to share this information with them. ?? Nain's sons live in [place] and [place]. ??They can go to the website of the National Society of Genetic Counselors at www.nsgc.org in order to find a counselor in their area??who can help them to arrange for genetic testing.? It is important to also be aware that a rare autosomal recessive, childhood- onset cancer syndrome, called Fanconi Anemia, can occur if both partners are carriers of mutations in the BRCA2 gene. For anyindividuals who test positive who are considering having children, genetic testing for BRCA2 mutations in their partners may be warranted. ??Reproductive options are also available to those interested in preventing passing this condition to their future children. A consultation with a geneticcounselor may be warranted for family members who have reproductive concerns. ?? Variants of uncertain significance t is unclear at this time whether the??AXIN2 and CTNNA1??VUS identified in Nain are??cancer-associated mutations??or a benign changes??in the gene with no increased cancer risks. [facility]??is continually collecting and analyzing their data, in an effort to reclassify these variants as either cancer-causing mutations or benign changes. ??It is important to remember that a vast majority of variants of uncertain significance are normal, benign changes in the gene. We will be contacted by the laboratory,in the future, if a reclassification is made and we would then notify Nain. It is important that??Nain's??phone number and mailing address stay updated in the [facility] system, in order for us to reach him??in the future, should an amended report be issued. Family members should not have testing for these variants at this time. ? Screening Recommendations??for Men with a BRCA2 mutation: Breast Cancer [...] as another good reason, among many others, for??Nain??not to engage in either activity. Family members, especially those who test positive, should also be discouraged from smoking or drinking heavily. ?? We discussed with??Nain??that there is no established screening; however, BRCA2 carriers with a family history of pancreatic cancer can consider pancreatic cancer screening. Current expert opinion recommends consideration of pancreatic cancer screening in individuals with a BRCA2 mutation who have a family history of pancreatic cancer (on the same side of the family as the mutation) and are either a)50 years old or b) 10 years younger than the earliest exocrine pancreatic cancer diagnosis in the family. Nain's maternal aunt had pancreatic cancer at age 35. ??It is not known if she had a BRCA2 mutation. ??Given this history, Nain meets??criteria for screening. ??His risk for pancreatic cancer is about 3%. ??Based on this he indicated that he is not currently interested in pursuing screening. ??Should he desire to discuss this possibility in the future,??Dr. Ara Mary, a circuit court clerk at [facility] in [place], is willing to discuss these screening options with Nain.??Nain??can schedule an appointment with her by reaching her assistant corporate secretary at [phone]. ?? Prostate Cancer Screening for Nain's sons ? Prostate cancer screening starting at age 40.?If either of them is found to not have the BRCA2 mutation then they can consider screening beginning at age 50 which is the recommendation for men in the general population ?? Skin cancer screening ?? Periodic skin exams ?? Colon cancer screening ?? Periodic colonoscopy screening as recommended by??Nain's circuit court clerk. ?. ??SUMMARY ASSESSMENT/PLAN 07/24 He was diagnosed with prostate cancer in [...] pelvis showed a suspicious internal iliac LN. ?? He met with Urology, Radiation Oncology and Medical Oncology. The plan was for EBRT to include the pelvic LN with concurrent ADT times 3 years. He received the first Lupron injection in 05/2016. He received radiation from 08/24/16 to 10/24/16. ?? He has continued every three month lupron injections. In 06/22, he was started on abiraterone at a reduced dose of 250 mg per day and prednisone. This was stopped in 08/22 due to an exacerbation of bipolar disease. ?? The PSA remains undetectable and overall he continues to do very well. A CT abd/pelvis was done on 04/27/19 and shows that the right iliac LN seen in 2017 is no longer seen. He has been off lupron since05/04/19. We will continue to follow him and will plan to see him in three months with a PSA. ? Soc Hx: , lives in [place], [place]. He goes to [place] from December to June. 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 Fam Hx: Father with prostate cancer diagnosed in his 80s. Also had alzheimer's disease Mother had colon cancer, diagnosed in her 50s Pat Aunt had breast cancer in her 80s Pat Aunt had uterine cancer Mat aunt had pancreatic cancer in her 30s or 40s ?? They have 2 sons, both in good health ?? INTERVAL HPI 04/04/20 Nain Mckeon is a 69 male diagnosed 05/21 with prostate cancer with perineural invasion and suspicious internal iliac LN. (Refer to history and plan as summarized above.) Nain returns to the [email or web address] in [facility] today for follow up surveillance visit with PSA review. His last Lupron injection was 04/26. Nain says he is feeling pretty good. His energy level is good. He said is now living home and walking his dogs about 2.5 miles a day. He is also doing other exercises. He tells me his depression recovery is going well. 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 Nain says his appetite is good, bowels are working well without diarrhea or constipation. He is not having hot flashes. He denies shortness of breath, new cough or chest pain. He has not noticed any extremity swelling. Nain reports no new muscle or bony aches or pains. He denies any voiding difficulties. He is anxious about his PSA today. No Known Allergies Current Medications ??? citalopram (CeleXA) 10 mg Tablet ??? FluZONE High-Dose 2018-, PF, 180 mcg/0.5 mL Syringe ??? mirtazapine (REMERON) 30 mg Tablet ??? multivitamin (THERAGRAN) Tablet ??? lamoTRIgine (LAMICTAL) 150 mg Tablet ??? TURMERIC ROOT EXTRACT ORAL ??? pravastatin (PRAVACHOL) 40 mg Tablet ??? LEVOTHYROXINE SODIUM (LEVOTHROID ORAL) Review of Systems Constitutional: Negative for activity change, fatigue and unexpected weight change. HENT: Negative. Eyes: Negative. Respiratory: Negative for cough and shortness of breath. Cardiovascular: Negative for chest pain and palpitations. Gastrointestinal: Negative for abdominal pain, constipation and diarrhea. Endocrine: Negative. Denies hot flashes Genitourinary: Negative. Musculoskeletal: Negative. Skin: Negative. Neurological: Negative. Hematological: Negative. Psychiatric/Behavioral: Major depressive episode with hospitalization fall 2019. Objective: Physical Exam Constitutional: General: He is not in acute distress. Appearance: Normal appearance. Eyes: Extraocular Movements: Extraocular movements intact. Cardiovascular: Rate and Rhythm: Normal rate and regular rhythm. Heart sounds: Normal heart sounds. Pulmonary: Breath sounds: Normal breath sounds. No wheezing or rales. Abdominal: Palpations: Abdomen is soft. Tenderness: There is no abdominal tenderness. Musculoskeletal: Normal range of motion. Lymphadenopathy: Cervical: No cervical adenopathy. Upper Body: Right upper body: No supraclavicular or axillary adenopathy. Left upper body: No supraclavicular or axillary adenopathy. Skin: General: Skin is warm and dry. Findings: Rash: .vs. Comments: No rash Neurological: Mental Status: He is alert and oriented to person, place, and time. Coordination: Coordination normal. Gait: Gait normal. Psychiatric: Mood and Affect: Mood normal. Thought Content: Thought content normal. Judgment: Judgment normal. Comments: Good affect, maintains eye contact. BP 147/80 (Patient Position: Sitting) Pulse 81 Temp 36.3 ??C (97.3 ??F) (Temporal) Resp 18 Ht 160 cm (5' 2.99) Wt 76.9 kg (169 lb 8 oz) SpO2 98% BMI 30.03 kg/m?? LABS 03/27/20 WBC 6.71; ANC 3.56; H/H 12.5/38.2; PLT 269; BUN 15; CREAT 0.98; CA++ 8.5; BILI 0.2; liver enzymes normal. PSA, Ultrasensitive 03/27/20 - <0.02 12/17/19 - <0.01 Assessment: Nain Mckeon is a 69 male diagnosed 05/21 with prostate cancer with perineural invasion and suspicious internal iliac LN. Nain returns to the [email or web address] oncology clinic in [facility] today for follow up surveillance visit with PSA review. He has no physical complaints and is recovering from a major depressive episode that occurred fall 2019. I reviewed CBC, CMP and ultrasensitive PSA with Nain today. PSA remains clinically negative. Plan RTC in 3 months for visit and PSA. Encourage continued daily walking and exercise Call sooner if any questions or concerns. documented in this encounter Plan of Treatment Upcoming Encounters Date Type Specialty Care Team Description 02/04/2022 Office Visit Radiation Oncology Rama Ramos APRN [facility] ER RADIATION ONCOLO [place], [place] [address] (Wo rk) documented as of this encounter Visit Diagnoses Diagnosis 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 documented in this encounter Care Teams Hot Tamale Worker Relationship Specialty Start Date End Date Celio Sanders MD PCP - General Internal Medicine 05/19/16 [address] [place] [address] documented as of this encounter
--- OUTSIDE RECORDS SUMMARY | 2022-01-25 12:38 | XMS_ITS | Encounter Summary ---
:1950 Author Organization [facility] [place] [address] Care Team Providers Name Role Phone Celio Sanders MD Primary Care Provider Encounter Details Date Type Department Care Team Description 02/09/2019 Office Visit Hematology/Oncology Bay Barillas MD [facility] [place] [address] [facility] [address] [place] [address] [place] [address] [place] [phone] Social History Tobacco Use Types Packs/Day Years Used Date Smoking Tobacco: Never Smokeless Tobacco: Never Alcohol Use Standard Drinks/Week Comments Yes 0 (1 standard drink = 0.6 oz pure alcoho l) beer and wine twice a month Sex Assigned at Date Recorded Not on file documented as of this encounter Last Filed Vital Signs Vital Sign Reading Time Taken Comments Blood Pressure 135/80 02/09/2019 2:33 PM EST Pulse 71 02/09/2019 2:33 PM EST Temperature 36.6 ??C (97.9 ??F) 02/09/2019 2:33 PM EST Respiratory Rate 16 02/09/2019 2:33 PM EST Oxygen Saturation 100% 02/09/2019 2:33 PM EST Inhaled Oxygen Concentration - - Weight 81.2 kg (179 lb 1.6 oz) 02/09/2019 2:33 PM EST Height - - Body Mass Index 31.73 08/06/2017 8:00 PM EDT documented in this encounter Progress Notes Remy Barillas MD - 02/09/2019 2:30 PM EST Subjective: Patient ID: Nain Mckeon is a 68 y.o. male. Problem List: 1. Prostate cancer, cT2b, N1 A. Presented with hematuria TRUS prostate biopsies 04/2016 - Adenocarcinoma in 5/12 cores (all on right side), T2b, Entiat 8 Darlyn-neural invasion present PSA - 47.5 [...] exacerbation of bipolar disorder while on prednisone 2. Hypothyroidism 3. Hyperlipidemia 4. Bipolar disease 5. S/p cholecystectomy 6. S/p appendectomy 7. Psoriasis HPI Mr. Mckeon is seen in f/u of prostate cancer. This is his first visit with me. On presentation today, he is accompanied by his Yaneth. He is doing well overall. His weight is a little lower but he attributes this to the fact they have gotten a new puppy and this has kept him busy, including walking more. He is eating well and his weight is stable. He tolerates treatment pretty well but does think it has affected to his stamina and strength to some degree. He is having some problems with nocturia which may be more of an issue. He had been benztropine for a tremor and duringthat time noted that he was getting up 4-5 times/night. He has been off of that for a period of timeand is back to getting up 1-2 times/night. Soc Hx: , lives in [place], [place]. He goes to [place] from December to June. 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 Psychiatric/Behavioral: Negative. Objective: Physical Exam Constitutional: He is oriented to person, place, and time. He appears well- developed and well-nourished. No distress. HENT: Head: Normocephalic and atraumatic. Mouth/Throat: No oropharyngeal exudate. Eyes: No scleral icterus. Cardiovascular: Normal rate and regular rhythm. Pulmonary/Chest: Effort normal. No respiratory distress. He has no wheezes. Abdominal: Soft. He exhibits no distension and no mass. There is no tenderness. There is no guarding. Musculoskeletal: He exhibits no edema. Lymphadenopathy: He has no cervical adenopathy. He has no axillary adenopathy. No inguinal adenopathy noted on the right or left side. Right: No supraclavicular adenopathy present. Left: No supraclavicular adenopathy present. Neurological: He is alert and oriented to person, place, and time. Coordination normal. Skin: Skin is warm and dry. No erythema. Psychiatric: He has a normal mood and affect. His behavior is normal. Vitals reviewed. Labs: WBC/ANC - 5., Hgb/Hct - 13.5/40.9, Plts - 307,000. BUN/Cr -22/1.07. Lytes and LFTs unremarkable PSA 01/31/19 <0.1 08/11/18 <0.1 11/15/17 <0.1 06/23/17 <0.1 04/2016 47.5 Assessment and Plan: Mr. Mckeon is a 68 yo male seen in f/u of high risk prostate cancer. He was diagnosed with prostate cancer in 2016 after presenting with hematuria and found to have an abnormal prostate gland on exam. TRUS prostate bx showed adenocarcinoma in 5/12 cores, all on the right. Entiat score was 8 in two of the [...] overall he continues to do very well. He is due today for a 3 monthlupron injection and we will go ahead with that and see him again in three months. We will plan one more lupron injection at that time. He also would like to get a repeat CT scan to re-look at the enlarged LN which was present prior to therapy and I think that's fine. We will schedule that prior to his next visit. Given his personal and family history, we discussed a referral to our Familial Cancer Program and hewould like to do that. I will make a referral. documented in this encounter Plan of Treatment Upcoming Encounters Date Type Specialty Care Team Description 02/04/2022 Office Visit Radiation Oncology Rama Ramos APRN [facility] [address] [place], [place] [address] (Wo rk) documented as of this encounter Visit Diagnoses Diagnosis Malignant neoplasm of prostate documented in this encounter Care Teams Truck Repair Supervisor Relationship Specialty Start Date End Date Celio Sanders MD PCP - General Internal Medicine 05/19/16 [address] [place] [address] documented as of this encounter
--- OUTSIDE RECORDS SUMMARY | 2022-01-25 12:38 | XMS_ITS | Encounter Summary ---
:1950 Author Organization [facility] [place] [address] Care Team Providers Name Role Phone Celio Sanders MD Primary Care Provider Reason for Visit Reason Comments Injections Lupron Treatment/Therapy Plan Authorization (Routine) - Authorized Specialty Diagnoses / Procedures Referred By Contact Refer red To Contact Diagnoses Prostate cancer metastatic to intrapelvic lymph node Gael Anderson MD [facility] Hem Onc Office [address] [place] [address] [address] [place] [phone] Phone: Fax: Referral ID Status Reason Start Date Expiration Date Visits V isits Requested Authorized [id number] Authorized 11/15/2017 11/15/2018 1 1 Encounter Details Date Type Department Care Team Description 11/15/2017 Infusion Hematology Oncology at [facility] cancer metastatic [facility] to intrapelvic lymph node [address] [place] [phone] Social History Tobacco Use Types Packs/Day Years Used Date Smoking Tobacco: Never Smokeless Tobacco: Never Alcohol Use Standard Drinks/Week Comments Yes 0 (1 standard drink = 0.6 oz pure alcoho l) beer and wine twice a month Sex Assigned at Date Recorded Not on file documented as of this encounter Progress Notes Falguni Acosta RN - 11/15/2017 3:00 PM EDT Infusion Note Diagnosis:Prostate Cancer Treatment: Lupron Injection Lupron 22.5 mg injected in right buttocks Patient instructed on side effects of Lupron. Patient states understanding of teaching. Patient aware to call clinic with any questions or concerns. Plan: Return to clinic as scheduled. documented in this encounter Plan of Treatment Upcoming Encounters Date Type Specialty Care Team Description 02/04/2022 Office Visit Radiation Oncology Rama Ramos APRN [facility] ER RADIATION [place], [place] [address] (Wo rk) documented as of this encounter Visit Diagnoses Diagnosis 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 documented in this encounter Administered Medications Inactive Administered Medications - up to 3 most recent administrations Medication Order MAR Action Action Date Dose Rate Site leuprolide (LUPRON) Given 11/15/2017 2:42 PM 22.5 mg Right Gluteal injection 22.5 mg EDT 22.5 mg, Intramuscular, ONCE, 1 dose, On Tue11/15/17 at 1445, Routine, This agent is restricted to outpatient use. Is this drug being given as an outpatient? Yes documented in this encounter Care Teams Hat Presser Relationship Specialty Start Date End Date Celio Sanders MD PCP - General Internal Medicine 05/19/16 [address] [place] [address] documented as of this encounter
--- OUTSIDE RECORDS SUMMARY | 2022-01-25 12:38 | XMS_ITS | Encounter Summary ---
:1950 Author Organization [facility] [place] [address] Care Team Providers Name Role Phone Celio Sanders MD Primary Care Provider Encounter Details Date Type Department Care Team Description 05/12/2021 Hospital Encounter [facility]enterology at [facility] [place] [address] [facility] [phone] [place] [address] Social History Tobacco Use Types Packs/Day [...] TABLETS BY MOUTH AT BEDTIME FluZONE High-Dose 2018-, INJECT AT PHARMACY 0 1 03/24/2018 PF, [...] 02/04/2022 Office Visit Radiation Oncology Rama Ramos, CORE WINDER MACHINE OPERATOR [facility] RADIATION [place], [place] [address] (Wo rk) documented as of [...] 3:10 PM 3:10 EST PM EST Narrative [facility] - 05/12/2021 3:10 PM EST Specimen requisition ordered. ??Separate Pathology report to follow Nicky Bray MD PATHOLOGY/CYTOLOGY ORDERABLE S Performing Organization Address City/State/[place] [address] Surgical Pathology Report (05/12/2021 2:59 PM EST) Component Value Ref Test Analysis Performed At [facility] gist Range Method Time Signature Surgical [id number] ? Location: 4T; EA12; A [facility] Report The signing pathologist has (i) examined the relevant preparation(s) for the MEMORIAL specimen(s) and (ii) rendered or confirmed the diagnosis(es) . HOSPITAL LABORATORY . ?Surgic al Pathology DIAGNOSIS A - Descending colon polyp 3mm, excision: - ??Tubular adenoma. CR-PX Electronically signed by: ?Michelle MUNOZ, Eduard Verified: ??05/14/2021 15:49 ??Pathologist Performed at: ??-[facility] Dept. of Pathology, [place], [place] SPECIMEN(S) SUBMITTED A - Descending colon [...] Organization Address City/State/[place] [address] [facility] [address] COLONOSCOPY (05/12/2021 2:18 PM EST) [facility] gist Method Time Signature COLONOSCOPY [facility] PROVATION Endoscopy Procedure Date: 05/12/2021 2:18 PM ? Patient Name: Nain Mckeon ? Date of : 1950 ? Age: 70 ? Order #: [id number] ? Instrument Name: [id number] ? Procedure: ? Colonoscopy Indications: ? Screening [...] Procedure Code(s): ?? --- Professional --- ? 24598, Colonoscopy, flexible; with ? removal of tumor(s), polyp(s) , or ? other lesion(s) by snare tech chantel CPT copyright 2019 [employer]. All rights reserved. The codes documented in this report are preliminary and upon wool hat hydraulicker review may be revised to meet current [...] EST 100 mL/hr, Intravenous, CONTINUOUS, Starting on e 05/12/21 at 1400, Until 05/12/21 at 1535, [...] Procedure) documented in this encounter Care Teams Finance Advisor Relationship Specialty Start Date End Date Celio Sanders MD PCP - General Internal Medicine 05/19/16 [address] [place] [address] documented as of this encounter
--- OUTSIDE RECORDS SUMMARY | 2022-01-25 12:38 | XMS_ITS | Encounter Summary ---
:1950 Author Organization [facility] [place] [address] Care Team Providers Name Role Phone Celio Sanders MD Primary Care Provider Reason for Visit Reason Comments Results BRCA2 mutation Encounter Details Date Type Department Care Team Description 05/02/2019 Office Visit Hematology and Tre Walker MD 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 [address] [place] [address] Social History Tobacco Use Types Packs/Day Years Used Date Smoking Tobacco: Never Smokeless Tobacco: Never Alcohol Use Standard Drinks/Week Comments Yes 0 (1 standard drink = 0.6 oz pure alcoho l) beer and wine twice a month Sex Assigned at Date Recorded Not on file documented as of this encounter Last Filed Vital Signs Vital Sign Reading Time Taken Comments Blood Pressure 129/76 05/02/2019 9:28 AM EST Pulse 83 05/02/2019 9:28 AM EST Temperature 37 ??C (98.6 ??F) 05/02/2019 9:28 AM EST Respiratory Rate 17 05/02/2019 9:28 AM EST Oxygen Saturation 98% 05/02/2019 9:28 AM EST Inhaled Oxygen Concentration - - Weight 78.7 kg (173 lb 9.6 oz) 05/02/2019 9:28 AM EST Height 161.4 cm (5' 3.54) 05/02/2019 9:28 AM EST Body Mass Index 30.23 05/02/2019 9:28 AM EST documented in this encounter Progress Notes Tre Walker MD - 05/02/2019 9:30 AM EST .. Tre Walker MD - 05/02/2019 9:30 AM EST Nain Mckeon was seen by Eden Copeland, [facility] and myself in the Familial Cancer Program to receive results from genetic testing. I spent all of 30 minutes in bowy-oh-todu consultation outlining the testresult and its implications. A summary is below and a copy has been sent to Nain. Please be advised that [place] law requires that all health care workers respect the confidentiality of this information and not pass it along to other health care providers, insurance companies, or individuals without the written permission of the patient. The Familial Cancer Program welcomes any questions about these matters. Our phone number is: [phone]. On 03/28/2019, Nain underwent gene panel analysis based on the personal history of prostate cancer and family history of prostate, breast, pancreatic and possibly ovarian cancer. Following are the results of this test. Result: [facility] Common Hereditary Cancers Panel showed that Nain carries a pathogenic variant (mutation) in BRCA2 specifically c.1929del(p.[id number]). 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 At the time of the appointment, Nain was provided with a printed copy of his test result and an informational packet addressing a positive test result. The following 47 genes were evaluated for sequence changes and exonic deletions/duplications: APC, RUMA, AXIN2, BARD1, BMPR1A, BRCA1, BRCA2, BRIP1, CDH1, CDK4, CDKN2A (p14ARF), CDKN2A (a08NGW3x), CHEK2,CTNNA1, DICER1, EPCAM (EPCAM: Deletion/duplication testing only (NM_[id number]), GREM1 (GREM1: Promoter region deletion/duplication testing only.),HOXB13, KIT, MEN1, MLH1, MSH2, MSH3, MSH6, MUTYH, NBN, NF1, NTHL1, PALB2, PDGFRA, PMS2, POLD1, POLE, PTEN, RAD50, RAD51C, RAD51D, SDHB, SDHC, SDHD, SMAD4, SMARCA4, STK11, TP53, TSC1, TSC2, VHL. The following gene was evaluated for sequence changes only: SDHA. Variants of uncertain significance (VUS) in the AXIN2 and CTNNA1 genes, specifically c.1531A>T (p.Mbg959Iyl) and c.515A>T (p.Vbt033Opo), were detected. Interpretation: The most significant consequences of carrying a pathogenic variant in BRCA2 are increased risks for breast cancer and ovarian cancer in women. For men, the most significant consequence is for prostate cancer so this finding is felt to be related to Nancies cancer. Other cancers associated with BRCA2 are breast cancer in men, pancreatic, and melanoma. It is important to keep in mind that not all individuals who inherit a mutation in the BRCA2 gene will develop cancer. Having a BRCA2 mutation may make Nain eligible for treatment with PARP inhibitors, oral medication that can be helpful in the setting of metastatic prostate cancer This potential option should be discussed with his oncologist. We reviewed dominant inheritance. With this type [...] therefore be at increased risk for cancer. ??? Nain's sons each has a 50% (1/2) chance of having inherited the altered gene. They should consider genetic testing to learn whether they are at increased risk. ??? Nain's sister has a 50% chance of having inherited the altered gene and should consider testing.Nain does not currently have any contact with his sister so is unable to alert her to her potential risk. ??? Based on the family history, it is not clear which side of the family this was likely inherited from. Unfortunately Nain does not have contact with his extended family so is unable to share this information with them. Nain's sons live in [place] and [place]. They can go to the website of the National Societyof Genetic Counselors at www.nsgc.org in order to find a counselor in their area who can help them to arrange for genetic testing. It is important to also be aware [...] for family members who have reproductive concerns. Variants of uncertain significance t is unclear at this time whether the AXIN2 and CTNNA1 VUS identified in Nain are cancer-associated mutations or a benign changes in the gene with no increased cancer risks. [employer] is continually collecting and analyzing their data, [...] and mailing address stay updated in the [facility] [place] system, in order for us to reachhim in the future, should an amended report be issued. Family members should not have testing for these variants at this time. Screening Recommendations for Men with a BRCA2 mutation: Breast Cancer Screening ?? Monthly self breast exams starting at age 35. ?? Clinical breast exams every 6-12 months starting at age 35. ?? Consider baseline mammogram at age 40; annual mammogram if gynecomastia or parenchymal/glandular breast density on baseline study. Pancreatic cancer screening Some families with mutations [...] also bediscouraged from smoking or drinking heavily. We discussed with Nain that there is [...] in the future, Dr. Ara Mary, a talent coordinator at [facility] in [place], is willing to discuss these screening options with Nain. Nain can schedule an appointment with her by reaching her front office secretary at [phone]. Prostate Cancer Screening for Nain's sons ?? Prostate cancer screening starting at age 40. If either of them is found to not have the BRCA2 mutation then they can consider screening beginning at age 50 which is the recommendation for men in the general population Skin cancer screening ??? Periodic skin exams Colon cancer screening ?? Periodic colonoscopy screening as recommended by Nain's talent coordinator. We provided Nain with information on an online support organization called [employer]: Facing Our Risk ofCancer Empowered which he may find helpful. In addition, the ClinicalTrials.gov website will have the most up-to-date information of clinical trials available to those who have a gene mutation. Finally, it can be difficult for people to predict how they will react to learning about the presence of an altered gene in their families and in themselves. A variety of feelings may occur after learning that one carries a gene mutation. Some individuals experience a sense of relief from knowing and u nderstanding the underlying cause of the cancer in the family, or from knowing their personal cancerrisk and gene status. Testing may bring up feelings about other relatives who had cancer. It is not uncommon to experience an increase in anxiety, or sleeplessness, as a result of worries about one's current and future health. One may also worry that other family members might have inherited the altered gene. For some, a consultation with a psychologist, social services, or psychiatrist may be helpful in dealing with feelings that may arise from genetic testing. If Nain would like a referral, we can help to try to recommend a therapist who is familiar with issues surrounding genetic conditions. 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
--- OUTSIDE RECORDS SUMMARY | 2022-01-25 12:38 | XMS_ITS | Encounter Summary ---
:1950 Author Organization [facility] [place] [address] Care Team Providers Name Role Phone Celio Sanders MD Primary Care Provider Encounter Details Date Type Department Care Team Description 02/09/2021 Telephone Gastroenterology at [facility] [place] [address] Social History Tobacco Use Types Packs/Day Years Used Date Smoking Tobacco: Never Smokeless Tobacco: Never Alcohol Use Standard Drinks/Week Comments Yes 0 (1 standard drink = 0.6 oz pure alcoho l) beer and wine twice a month Sex Assigned at Date Recorded Not on file documented as of this encounter Miscellaneous Notes Telephone Encounter - Dori Maharaj E - 02/09/2021 12:01 PM EST Naingrant Paulsonaleida [id number] Diagnosis/Indication: BRCA gene mutation positive 1. Have you ever had a/an Colonoscopy before? Yes: Date 2013 If yes, did you have any problems with the procedure? No What type of sedation was used: General Anesthesia 2. Do you take any blood thinners or have you been diagnosed with a bleeding disorder that increasesyour risk of bleeding with procedures? No 3. Do you have a Pacemaker or Defibrillator device? No 4. Are you a diabetic? No 5. Do you have any Allergies to Eggs, Latex or Medications? No 6. Do you take any Oral Iron Supplements (Including multi-vitamins)? Yes (Multivitamin) 7. Do you have a history of three or more abdominal surgeries? No 8. Have you had a problem with sedation or anesthesia? No 9. Do you use a c-pap machine or oxygen tank? Neither 10. Do you take prescription narcotic pain medications, including suboxone or methodone? No 11. Do you have a preference regarding the gender of your provider? No Preference 12. Is there any other information you would like to us to note for the provider and nursing team who will perform your case? No 13. Say to patient: You must have a responsible libertarian who will drive you to your procedure, stay on campus for the entire duration of your procedure, and drive you home from your procedure? *Please Verify the height and weight, and adjust if height and/or weight have changed* Estimated body mass index is 31.89 kg/m?? as calculated from the following: Height as of 01/16/21: 160 cm (5' 2.99). Weight as of 01/16/21: 81.6 kg (180 lb). Age:70 y.o. documented in this encounter Plan of Treatment Upcoming Encounters Date Type Specialty Care Team Description 02/04/2022 Office Visit Radiation Oncology Rama Ramos APRN [facility] RADIATION [place], [place] [address] (Wo rk) documented as of this encounter Visit Diagnoses Not on filedocumented in this encounter Care Teams Clinical Laboratory Aide Relationship Specialty Start Date End Date Celio Sanders MD PCP - General Internal Medicine 05/19/16 [address] [place] [address] documented as of this encounter
--- OUTSIDE RECORDS SUMMARY | 2022-01-25 12:38 | XMS_ITS | Encounter Summary ---
:1950 Author Organization [facility] [address] Care Team Providers Name Role Phone Celio Sanders MD Primary Care Provider Reason for Visit Reason Comments Injections Lupron Encounter Details Date Type Department Care Team Description 08/23/2017 Infusion Hematology Oncology at [facility] regional lymph node staging [address] category pN1: metastasis in [place], [place] [phone] regional nodes [phone] Social History Tobacco Use Types Packs/Day Years Used Date Smoking Tobacco: Never Smokeless Tobacco: Never Alcohol Use Standard Drinks/Week Comments Yes 0 (1 standard drink = 0.6 oz pure alcoho l) beer and wine twice a month Sex Assigned at Date Recorded Not on file documented as of this encounter Progress Notes Mindi Vargas RN - 08/23/2017 3:30 PM EDT Infusion Note Diagnosis:Prostate Cancer Treatment: Lupron Injection Lupron 22.5 mg injected in left buttocks Patient instructed on side effects of Lupron. Patient states understanding of teaching. Patient aware to call clinic with any questions or concerns. Plan: Return to clinic as scheduled. documented in this encounter Plan of Treatment Upcoming Encounters Date Type Specialty Care Team Description 02/04/2022 Office Visit Radiation Oncology Rama Ramos APRN [facility] RADIATION [place], [place] [address] (Wo rk) documented as of this encounter Visit Diagnoses Diagnosis 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 documented in this encounter Administered Medications Inactive Administered Medications - up to 3 most recent administrations Medication Order MAR Action Action Date Dose Rate Site leuprolide (LUPRON) Given 08/23/2017 3:45 PM EDT 22.5 mg Left Gluteal injection 22.5 mg 22.5 mg, Intramuscular, ONCE, 1 dose, On Tue08/23/17 at 1545, Routine, This agent is restricted to outpatient use. Is this drug being given as an outpatient? Yes documented in this encounter Care Teams College Hire Relationship Specialty Start Date End Date Celio Sanders MD PCP - General Internal Medicine 05/19/16 [address] [place] [address] documented as of this encounter
--- OUTSIDE RECORDS SUMMARY | 2022-01-25 12:38 | XMS_ITS | Clinical Summary ---
:1950 Author Organization [facility] [address] Care Team Providers Name Role Phone Celio Sanders MD Primary Care Provider Allergies No known active allergies Medications Medication Sig Dispensed Refills Start Date End Date Status LEVOTHYROXINE SODIUM Take 75 mcg by 0 Active (LEVOTHROID ORAL) mouth daily. pravastatin (PRAVACHOL) Take 40 mg by 0 Active 40 mg Tablet mouth daily. TURMERIC ROOT EXTRACT Take 1 capsule by 0 Active ORAL mouth 2 times daily. lamoTRIgine (LAMICTAL) Take 1 tablet by 30 tablet 1 08/15/2017 Active 150 mg Tablet mouth daily. Additional Information Patient taking differently: 200 mg Oral DAILY, Reported on 07/27/2019 multivitamin (THERAGRAN) Tablet Take 1 tablet by mouth 0 Active nightly. FluZONE High-Dose 2018-, PF, INJECT AT PHARMACY 0 01/22/2019 Active 180 mcg/0.5 mL Syringe clonazePAM (KlonoPIN) 1 mg Tablet TAKE 1 TABLET BY MOUTH TWICE 0 06/15/2020 Active DAILY melatonin 5 mg Tablet TAKE 1 AND 1/2 TABLETS BY 0 Active MOUTH AT BEDTIME DULoxetine DR (Cymbalta) 30 mg TAKE 1 CAPSULE BY MOUTH 0 10/08/2020 Active Capsule, Delayed Release(E.C.) TWICE DAILY lactobacillus rhamnosus, GG, Take 1 capsule by mouth 0 Active (CULTURELLE) 10 billion cell daily. Capsule vitamin E mixed (NATURAL VITAMIN Take by mouth. 0 Active E ORAL) cholecalciferol, vitamin D3, Take by mouth. 0 Active (VITAMIN D3 ORAL) QUEtiapine (SEROquel) 100 mg Take 100 mg by mouth 0 06/05/2021 Active Tablet nightly. Active Problems Problem Noted Date Toxic encephalopathy 08/06/2017 Bipolar disorder, current episode manic without psycho tic features, 08/06/2017 moderate Bipolar II disorder 07/27/2017 Hypothyroidism 07/27/2017 Hyperlipidemia 07/27/2017 Hx of appendectomy 07/27/2017 Hx laparoscopic cholecystectomy 07/27/2017 Prostate cancer metastatic to intrapelvic lymph node 0 07/07/2016 Neoplasm of prostate regional lymph node staging categ ory pN1: metastasis 07/07/2016 in regional nodes Foreign travel 01/26/2011 Encounters Date Type Specialty Care Team Description 01/19/2022 Telephone Radiation Oncology Carmine Cheema from Last 3 Months Immunizations Name Administration Dates Next Due Enhanced Inactivated Polio 01/25/2011 Hepatitis A Vaccine, unspecified formulation 01/25/2011 Influenza PF, Split 01/25/2011 Yellow Fever Vaccine 01/25/2011 Family History Medical History Relation Comments Prostate Cancer Father Pancreatic Cancer Maternal Aunt Breast Cancer Maternal Cousin daughter of aunt wit h pancreatic cancer Cancer Maternal Grandfather tongue Colorectal Cancer Mother Breast Cancer Paternal Aunt 1 Uterine Cancer Paternal Aunt 2 may have been ovaria n Relation Status Comments Father Maternal Aunt Maternal Cousin Maternal Grandfather Mother Paternal Aunt 1 Paternal Aunt 2 Social History Tobacco Use Types Packs/Day Years Used Date Smoking Tobacco: Never Smokeless Tobacco: Never Alcohol Use Standard Drinks/Week Comments Not Currently 0 (1 standard drink = 0.6 oz pure alcoho l) beer and wine twice a month Sex Assigned at Date Recorded Not on file Last Filed Vital Signs Vital Sign Reading Time Taken Comments Blood Pressure 158/82 07/17/2021 3:27 PM EDT Pulse 95 07/17/2021 3:27 PM EDT Temperature 36.5 ??C (97.7 ??F) 07/17/2021 3:27 PM EDT Respiratory Rate 18 07/17/2021 3:27 PM EDT Oxygen Saturation 98% 07/17/2021 3:27 PM EDT Inhaled Oxygen Concentration - - Weight 84.1 kg (185 lb 6.4 oz) 07/17/2021 3:27 PM EDT Height 160 cm (5' 2.99) 07/17/2021 3:27 PM EDT Body Mass Index 32.85 07/17/2021 3:27 PM EDT Plan of Treatment Upcoming Encounters Date Type Specialty Care Team Description 02/04/2022 Office Visit Radiation Oncology Rama Ramos, CONSUMER SAFETY INSPECTOR [facility] RAD[facility] [place], [place] [address] (Wo rk) Health Maintenance Due Date Last Done Comments Covid-19 Vaccine (#1) 03/21/1951 Hepatitis C Screening 1966 Tdap adult 09/19/1967 Tetanus vaccine 09/19/1967 Zoster vaccine (1 of 2) 1998 Advance Directive 09/19/2003 Pneumoccocal Vaccine: 65+ (1 - PCV) 2013 Influenza (Flu) vaccine (1 of - 11/05/2021 01/25/2011 Influenza standard series) Colonoscopy 05/13/2031 05/12/2021, 05/12/2021 Insurance Payer Benefit Plan / Subscriber ID Effective Dates Phone Addre ss Type Group MEDICARE MEDICARE PART A [id number] 2004-Present [phone] [facility] MD [place]IR[place] [id number] 2015-[facility] [phone] HEALTH CLAIMS t [address] [address] [place] [address] Advance Directives Latest Code Status on File Code Status Date Activated Date Inactivated Comments Full Code 08/06/2017 8:40 PM 08/15/2017 2:45 PM Question Answer Comments Does patient have capacity to make decision: Yes Code Status History Code Status Date Activated Date Inactivated Comments Full Code 08/03/2016 1:14 PM 08/03/2016 6:28 PM Question Answer Comments Does patient have capacity to make decision: Yes Content of discussion: Pt desires full code. Care Teams Environmental Technology Professor Relationship Specialty Start Date End Date Celio Sanders MD PCP - General Internal Medicine 05/19/16 [address] [place], [place] [address] (Dcae)
--- OUTSIDE RECORDS SUMMARY | 2022-01-25 12:38 | XMS_ITS ---
:1950 Author Organization [facility] Address [place] [id number] Care Team Providers Name Role Phone Celio Sanders MD Primary Care Provider Active Problems Problem Noted Date Toxic encephalopathy 08/06/2017 Bipolar disorder, current episode manic without psycho tic features, 08/06/2017 moderate Bipolar II disorder 07/27/2017 Hypothyroidism 07/27/2017 Hyperlipidemia 07/27/2017 Hx of appendectomy 07/27/2017 Hx laparoscopic cholecystectomy 07/27/2017 Prostate cancer metastatic to intrapelvic lymph node 0 07/07/2016 Neoplasm of prostate regional lymph node staging categ ory pN1: metastasis 07/07/2016 in regional nodes Foreign travel 01/26/2011 Current Oncology Plans DH?LEUPROLIDE (LUPRON) 22.5 MG EVERY 3 MONTHPlan Start Date:11/15/2017 Plan Provider:Remy Barillas MD Linked Problems 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 Past Plans No past plan information found. Radiation Treatments No radiation treatments are documented for this patient in [facility]. Treatments may have been administered in another system.
--- OUTSIDE RECORDS SUMMARY | 2022-01-25 12:38 | XMS_ITS | Encounter Summary ---
:1950 Author Organization [facility] [place] [address] Care Team Providers Name Role Phone Ceilo Sanders MD Primary Care Provider Encounter Details Date Type Department Care Team Description 11/16/2018 Office Visit Hematology/Oncology Yeni Gallardo ostate cancer at [facility] C, VERIFYING SPECIALIST metastatic to [address] intrapelvic [place] node [id number] [phone] (Wo rk) Social History Tobacco Use Types [...] Sign Reading Time Taken Comments Blood Pressure 139/75 11/16/2018 1:33 PM EDT Pulse 93 11/16/2018 1:33 PM EDT Temperature 37.1 ??C (98.8 ??F) 11/16/2018 1:33 PM EDT Respiratory Rate 20 11/16/2018 1:33 PM EDT Oxygen Saturation 97% 11/16/2018 1:33 PM EDT Inhaled Oxygen Concentration - - Weight 84.3 kg (185 lb 12.8 oz) 11/16/2018 1:33 PM EDT Height - - Body Mass Index 32.91 08/06/2017 8:00 PM EDT documented in this encounter Progress Notes Yeni Gallardo, VERIFYING SPECIALIST - 11/16/2018 1:30 PM EDT Subjective: Patient ID: Nain Mckeon is a [...] bowel by tumor cannot be excluded. 2. Enlarge right internal iliac lymph node. Metastatic disease [...] S/p cholecystectomy 6. S/p appendectomy 7. Psoriasis HPI: Mr. Mckeon is seen in f/u of prostate cancer. This is his first visit with me. Interim History: Nain Mckeon returns to clinic for labs and repeat evaluation prior to his Lupron injection. He is worried about his PSA level and wondering if it's changed. He would also like to know how much longer he'll be on the Lupron injections. He denies pain, fever, chills, night sweats or unusual bleeding. PMH, PSH, FH, and SH: Except as mentioned in the interim history, unchanged since last office visit. Review of Systems Constitutional: Negative. HENT: Negative. Eyes: Negative. Respiratory: Negative. Cardiovascular: Negative. Gastrointestinal: Negative. Endocrine: Negative. Genitourinary: Negative. Musculoskeletal: Negative. Skin: Negative. Allergic/Immunologic: Negative. Neurological: Negative. Hematological: Negative. Psychiatric/Behavioral: Negative. Objective: Physical Exam Constitutional: He is oriented to person, place, and time. He appears well- developed and well-nourished. HENT: Head: Normocephalic and atraumatic. Nose: Nose normal. Mouth/Throat: Oropharynx is clear and moist. Eyes: Conjunctivae and EOM are normal. Neck: Normal range of motion. Neck supple. Cardiovascular: Normal rate and regular rhythm. Pulmonary/Chest: Effort normal and breath sounds normal. Abdominal: Soft. Bowel sounds are normal. Musculoskeletal: Normal range of motion. Neurological: He is alert and oriented to person, place, and time. Skin: Skin is warm and dry. Psychiatric: He has a normal mood and affect. His behavior is normal. Vitals reviewed. Vitals: BP 139/75 (Patient Position: Sitting) Pulse 93 Temp 37.1 ??C (98.8 ??F) (Oral) Resp 20 Wt 84.3 kg (185 lb 12.8 oz) SpO2 97% BMI 32.91 kg/m?? 11/13/18 LABs: WBC 5.6, Hgb./Hct. 13.7/40.2, Plts. 257, ANC 2.6. Chem: Na+/K+ 143/4.4, BUN/creat. 21/1.0, AST 36, ALT 74, Alk. Phos. 106, PSA <0.1. Assessment and Plan: 1. Prostate cancer. Currently being treated with Lupron injections every 3 months. 2. Reviewed lab results with patient. PSA <0.1.Proceed with Lupron injection today. Patient informed he has approximately 1 year more of Lupron injections. 3. RTC in 3 months for labs and repeat evaluation prior to Lupron injection. 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
--- OUTSIDE RECORDS SUMMARY | 2022-01-25 12:38 | XMS_ITS | Encounter Summary ---
:1950 Author Organization [facility] [place] [address] Care Team Providers Name Role Phone Celio Sanders MD Primary Care Provider Reason for Visit Reason Comments Injections Lupron Treatment/Therapy Plan Authorization (Routine) - Authorized Specialty Diagnoses / Procedures Referred By Contact Refer red To Contact Diagnoses Prostate cancer metastatic to intrapelvic lymph node Gael Anderson MD [facility] Hem Onc Office [address] [place] [address] [address] [place] [address] Phone: Fax: Referral ID Status Reason Start Date Expiration Date Visits V isits Requested Authorized [id number] Authorized 11/15/2017 11/15/2018 1 1 Encounter Details Date Type Department Care Team Description 02/09/2019 Infusion Hematology Oncology at [facility] cancer metastatic [facility] to intrapelvic lymph node [address] [place] [phone] Social History Tobacco Use Types Packs/Day Years Used Date Smoking Tobacco: Never Smokeless Tobacco: Never Alcohol Use Standard Drinks/Week Comments Yes 0 (1 standard drink = 0.6 oz pure alcoho l) beer and wine twice a month Sex Assigned at Date Recorded Not on file documented as of this encounter Progress Notes Falguni Acosta RN - 02/09/2019 3:00 PM EST Infusion Note Diagnosis:Prostate Cancer Treatment: Lupron Injection Lupron 22.5 mg injected IM in left buttocks. Patient instructed on side effects of Lupron. Patient states understanding of teaching. Patient aware to call clinic with any questions or concerns. Plan: Return to clinic as scheduled. 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 Is this drug being given as an outpatient? Yes documented in this encounter Care Teams Gallery Or Museum Technician Relationship Specialty Start Date End Date Celio Sanders MD PCP - General Internal Medicine 05/19/16 [address] [place] [address] documented as of this encounter
--- OUTSIDE RECORDS SUMMARY | 2022-01-25 12:38 | XMS_ITS | Encounter Summary ---
:1950 Author Organization [facility] [place] [address] Care Team Providers Name Role Phone Celio Sanders MD Primary Care Provider Reason for Visit Reason Comments Other lupron 22.5 mg Treatment/Therapy Plan Authorization (Routine) - Authorized Specialty Diagnoses / Procedures Referred By Contact Refer red To Contact Diagnoses Prostate cancer metastatic to intrapelvic lymph node Gael Anderson MD [facility] Hem Onc Office [address] [place] [address] [address] [place] [address] Phone: Fax: Referral ID Status Reason Start Date Expiration Date Visits V isits Requested Authorized [id number] Authorized 11/15/2017 11/15/2018 1 1 Encounter Details Date Type Department Care Team Description 05/04/2019 Infusion Hematology Oncology at [facility] cancer metastatic [facility] to intrapelvic lymph node [address] [place] [phone] Social History Tobacco Use Types Packs/Day Years Used Date Smoking Tobacco: Never Smokeless Tobacco: Never Alcohol Use Standard Drinks/Week Comments Yes 0 (1 standard drink = 0.6 oz pure alcoho l) beer and wine twice a month Sex Assigned at Date Recorded Not on file documented as of this encounter Progress Notes Tracy Reno RN - 05/04/2019 11:30 AM EST INFUSION THERAPY ADMINISTRATION NOTES TIME TREATMENT STARTED: 1155 TIME TREATMENT ENDED: 1210 DIAGNOSIS: prostate cancer PROTOCOL:na CYCLE #: na REASON FOR VISIT: lupron 22.5 mg every 3 months SUBJECTIVE Nain Mckeon offers no complaints. OBJECTIVE LAB DATA: Labs reviewed and found adequate for treatment. 22.5 mg lupron given IM in left upper gluteal REACTIONS (DESCRIPTION, TIME, INTERVENTION AND EFFECTIVENESS) none ASSESSMENT Nain Mckeon was awake, alert and he tolerated treatment well. PLAN Return to clinic in 3 months for next shot. 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 Is this drug being given as an outpatient? Yes documented in this encounter Care Teams Marketing Production Coordinator Relationship Specialty Start Date End Date Celio Sanders MD PCP - General Internal Medicine 05/19/16 [address] [place] [address] documented as of this encounter
--- OUTSIDE RECORDS SUMMARY | 2022-01-25 12:38 | XMS_ITS | Encounter Summary ---
:1950 Author Organization [facility] [place] [address] Care Team Providers Name Role Phone Celio Sanders MD Primary Care Provider Reason for Visit Reason Comments Prostate Cancer Encounter Details Date Type Department Care Team Description 11/15/2017 Office Visit Hematology/Oncology Gael Anderson, Pro state cancer at [facility] metastatic to [address] intrapelvic lymph [place] node [phone] (Wo rk) Social History Tobacco Use Types [...] Sign Reading Time Taken Comments Blood Pressure 132/79 11/15/2017 2:06 PM EDT Pulse 76 11/15/2017 2:06 PM EDT Temperature 36.6 ??C (97.9 ??F) 11/15/2017 2:06 PM EDT Respiratory Rate 18 11/15/2017 2:06 PM EDT Oxygen Saturation 99% 11/15/2017 2:06 PM EDT Inhaled Oxygen Concentration - - Weight 80.9 kg (178 lb 6.4 oz) 11/15/2017 2:06 PM EDT Height - - Body Mass Index 31.6 08/06/2017 8:00 PM EDT documented in this encounter Progress Notes Gael Anderson MD - 11/15/2017 2:00 PM EDT Diagnosis: High risk prostate cancer status post radiation therapy with a DVT Background History: The patient initially presented with blood in the urine. He had elevated PSA andabnormal digital rectal exam in the setting of hematuria (x3 episodes) that prompted referral to urology. Prior to biopsy, given the elevated PSA, he underwent bone scan 03/30/2016 that was negative formetastatic disease. On 04/27/2016 Dr. Curran performed ultrasound-guided prostate biopsy that showed Brookline 4+4 disease in 2 cores and Brookline 4+3 disease in 3 additional cores. All disease involved theright side of the gland which was 57 cc in size. In addition perineural invasion was noted. On 05/12/16 he completed staging with a CT of the abdomen and pelvis that showed a 3.4 cm (craniocaudad) enlarged right internal iliac lymph node. He started ADT with Lupron and Casodex on May [id number]. XRT was commenced on August 24, 2016. Interval history: Mr. Mckeon is in clinic for follow-up appointment on prostate cancer. He followed with oncologist in [place] initiated abiraterone 250 mg daily with low-fat diet and prednisone 5 mg a day about 4 weeks ago. There is underlying bipolar disorder who became out of controlon the low-dose prednisone and fortunately now off the medication he is now doing better and back home. There are no plans to restart this. Subjective: Nain comes in today for medical oncology follow-up as far as his Lupron injection. He is doing well with Lupron injections but does note it is hard for him to put as much muscle on his he has in the past. We did talk about the fact that he still able to do that if he does put enough effort although certainly taking away the testosterone with his Lupron does have an effect on that. He is accepting of that. We discussed a length of treatment of 3 years and also brought up the topic of intermittent therapy should his cancer return. He is doing well otherwise though. Not having any urinary or bowel problems and review of systems is negative Past medical history and social history reviewed as above. Depression, gallbladder surgery and appendectomy Past Medical History: Diagnosis Date ??? Anxiety ??? Finger fracture multiple from basket ball injuries ??? Hyperlipidemia ??? Prostate cancer Social History: No interval changes since last visit. 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 He has 2 children. Lives at home with his . Social History Social History ??? Marital status: Spouse name: N/A ??? Number of children: N/A ??? Years of education: N/A Occupational History ??? 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 Smoking status: Never Smoker ??? Smokeless tobacco: Never Used ??? Alcohol use Yes Comment: beer and wine twice a month ??? Drug use: No ??? Sexual activity: No Other Topics Concern ??? Not on file Social History Narrative Family History: No interval changes since last visit Father had prostate cancer in his 80s, mother had colon cancer in her 60s, aunt had breast cancer Family History Problem Relation Age of Onset ??? Colorectal Cancer Mother ??? Prostate Cancer Father ??? Cancer Maternal Grandfather tongue ??? Breast Cancer Other paternal aunt Allergies: No Known Allergies Medications: Your Medications These changes are accurate as of 11/15/17 3:54 PM. If you have any questions, ask your nurse or doctor. Continued medications with new dosing Dose Details lamoTRIgine 150 mg Tab Commonly known as: LaMICtal Take 1 tablet by mouth daily. What changed: how much to take 150 mg Quantity: 30 tablet Refills: 1 OLANZapine 15 mg Tab Commonly known as: ZyPREXA Take 1 tablet by mouth nightly. What changed: how much to take 15 mg Quantity: 30 tablet Refills: 0 Continued medications, unchanged Dose Details clonazePAM 2 mg Tab Commonly known as: KlonoPIN Take 0.5 tablets by mouth nightly as needed for Anxiety. 1 mg Quantity: 60 tablet Refills: 0 hydrOXYzine 50 mg Tab Commonly known as: ATARAX Take 1 tablet by mouth nightly as needed for Anxiety (sleep. First line as needed for sleep). 50 mg Quantity: 30 tablet Refills: 0 LEVOTHROID ORAL Take 75 mcg by mouth daily. 75 mcg Refills: 0 mirtazapine 30 mg Tab Commonly known as: REMERON Take 30 mg by mouth nightly. 30 mg Refills: 0 multivitamin Tab Commonly known as: THERAGRAN Take 1 tablet by mouth nightly. 1 tablet Refills: 0 polyethylene glycol 17 gram Pwpk Commonly known as: MIRALAX Take 17 g by mouth daily as needed. 17 g Quantity: 14 each Refills: 0 pravastatin 40 mg Tab Commonly known as: PRAVACHOL Take 40 mg by mouth daily. 40 mg Refills: 0 tamsulosin 0.4 mg Cap Commonly known as: FLOMAX Take 2 capsules by mouth nightly as needed. 0.8 mg Quantity: 60 tablet Refills: PRN TURMERIC ROOT EXTRACT ORAL Take 1 capsule by mouth 2 times daily. 1 capsule Refills: 0 Review of Systems: Constitutional: Fatigue HEENT: Negative for sore throat, mouth sores and trouble swallowing. Eyes: Negative. Respiratory: Negative for cough, shortness of breath and wheezing. Cardiovascular: Negative for chest pain, palpitations and leg swelling. Gastrointestinal: Negative for nausea, vomiting, abdominal pain, diarrhea, constipation and abdominal distention. Genitourinary: urinates 2-3 times at nights Musculoskeletal: Decreased muscle length Skin: Negative. Neurological: Anxious hematological: Negative for adenopathy. PE: General: AAAx3, in NAD Head: Normocephalic, without obvious abnormality, atraumatic Eyes: PERRL, conjunctiva/corneas clear, EOM's intact, fundi benign, both eyes Ears: Normal TM's and external ear canals, both ears Nose: Nares normal, septum midline, mucosa normal, no drainage or sinus tenderness Throat: Lips, mucosa, and tongue normal; teeth and gums normal Neck: Supple, symmetrical, trachea midline, no adenopathy, thyroid: not enlarged, symmetric, no tenderness/mass/nodules, no carotid bruit or JVD Back: Symmetric, no curvature, ROM normal, no CVA tenderness Lungs: Clear to auscultation bilaterally, respirations unlabored Chest Wall: No tenderness or deformity Heart: Regular rate and rhythm, S1, S2 normal, no murmur, rub or gallop Abdomen: Soft, non-tender, bowel sounds active all four quadrants, no masses, no organomegaly. Thereis no appreciable ascites Extremities: Extremities normal, atraumatic, no cyanosis or edema Pulses: 2+ and symmetric Skin: Skin color, texture, turgor normal, no rashes or lesions Lymph nodes: Cervical, supraclavicular, and axillary nodes normal Neurologic: Normal Vitals BP 132/79 (Patient Position: Sitting) Pulse 76 Temp 36.6 ??C (97.9 ??F) (Oral) Resp 18 Wt 80.9 kg (178 lb 6.4 oz) SpO2 99% BMI 31.6 kg/m2 Pathology: 05/17/16 Extradepartmental number: ??[id number]; collection date, 04/27/2016. A - Prostatic core needle biopsy, right lateral base: ? 1. Adenocarcinoma, grade group 3, Andre grade 4+3, ?involving 95% of the biopsy core. ? 2. Perineural invasion identified. B - Prostatic core needle biopsy, right medial base: ? 1. Adenocarcinoma, grade group 3, Andre grade 4+3, ?involving 95% of the biopsy core. ? 2. Perineural invasion identified. C - Prostatic core needle biopsy, right mid lateral: ? Adenocarcinoma, grade group 4, Brookline grade 4+4, ? involving 90% of the biopsy core. D - Prostatic core needle biopsy, right mid medial: ? 1. Adenocarcinoma, grade group 4, Brookline grade 4+4, ?involving 40% of the biopsy core. ? 2. Perineural invasion identified. E - Prostatic core needle biopsy, right lateral apex: ? Benign prostatic tissue. F - Prostatic core needle biopsy, right medial apex: ? Adenocarcinoma, grade group 3, Andre grade 3+4, ? involving 25% of the biopsy core. G - Prostatic core needle biopsy, left lateral base: ? Benign prostatic tissue. H - Prostatic core needle biopsy, left medial base: ? Benign prostatic tissue. I - Prostatic core needle biopsy, left mid lateral: ? Benign prostatic tissue. J - Prostatic core needle biopsy, left mid medial: ? Benign prostatic tissue. K - Prostatic core needle biopsy, left lateral apex: ? Benign prostatic tissue. L - Prostatic core needle biopsy, left medial apex: ? Benign prostatic tissue. Labs: 07/19/17 calcium 8.8, BUN 22, creatinine 0.98, total bilirubin 0.5, alkaline phosphatase 96, AST 54, ALT 58 06/23/17 PSA is <0.1 WBC 5.9, hemoglobin 13.3, platelet count 273, BUN 15, creatinine 0.9, calcium 9.7, alkaline phosphatase 101, ALT 43, AST 31, total bilirubin 0.4 Imagin08/13/2016 pelvic MRI: IMPRESSION: 1. Limited MRI performed for radiation treatment planning purposes. 2. Based on T2 signal alone, there is suspected malignancy in the right peripheral zone with extraprostatic extension. 3. Suspicious right internal iliac and right common femoral lymph nodes based on size and morphology. 05/12/2016 CT scan of abdomen and pelvis: Enlarged prostate gland. Enlarged right internal iliac lymph node 03/30/16 bone scan: IMPRESSION: 1. Limited MRI performed for radiation treatment planning purposes. 2. Based on T2 signal alone, there is suspected malignancy in the right peripheral zone with extraprostatic extension. 3. Suspicious right internal iliac and right common femoral lymph nodes based on size and morphology. Laboratory studies today show normal electrolytes a creatinine 1.12 calcium of 9.2 ALP of 92 PSA of less than 0.1. CBC shows white count of 4.98 hemoglobin 13.9 hematocrit 41.4 and platelet count of 242 Assessment and Plan: Nain has a high risk prostate cancer status post radiation and ADT. At the current time he is made adecision to get off of the Abiraterone both because of concerns about the effects of the medication and its meager track record in this situation and because of the need for taking prednisone which interferes greatly with his underlying problems. That being said he is doing exceptionally at this time and is due today for his Lupron. We will give him 22.5 mg IM today and see him back in 3 months with a CBC CMP and a PSA a few days prior to return. Far as the overall fatigue he notes post radiation and on Lupron I have recommended he continue to do some exercising and fortunately he does still swimming at her local swimming pool. I think if he is able to do that regularly it should help things overall. He will call if there is issues or problems in the interim. We did discuss stopping the Lupron injections after 3 years. 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
--- OUTSIDE RECORDS SUMMARY | 2022-01-25 12:38 | XMS_ITS | Encounter Summary ---
:1950 Author Organization [place] [address] Care Team Providers Name Role Phone Celio Sanders MD Primary Care Provider Reason for Visit Reason Comments Genetic Evaluation Consultation (Routine) - Closed Specialty Diagnoses / Procedures Referred By Contact Refer red To Contact Hematology and Oncology Diagnoses Malignant neoplasm of prostate Remy Barillas, [facility] [address] [place] [id number] [place] [address] Referral ID Status Reason Start Date Expiration Date Visits V isits Requested Authorized [id number] Closed Consult, 08/18/2018 08/18/2019 1 1 Test & Treat Encounter Details Date Type Department Care Team Description 03/28/2019 Office Visit Hematology and Eden Copeland L GC Prostate cancer Oncology at [facility] metastatic to [facility] intrapelvic lymph node Drive HEMATOLOGY/ONCOLOG [place], [place] Y DEPT. [id number] [place] [address] [phone] Social History Tobacco Use Types Packs/Day Years Used Date Smoking Tobacco: Never Smokeless Tobacco: Never Alcohol Use Standard Drinks/Week Comments Yes 0 (1 standard drink = 0.6 oz pure alcoho l) beer and wine twice a month Sex Assigned at Date Recorded Not on file documented as of this encounter Progress Notes Eden Copeland LG - 03/28/2019 1:30 PM EST Nain Mckeon was seen by Eden Copeland [facility] in consultation at the request of Remy Barillas to advise regarding possible heritable predisposition to cancer. I spent 35 minutes of this face to face encounter with the patient and his gathering medical and family history and discussing the likelihood of a genetic predisposition to cancer and the option of genetic testing. Reason for referral/Chief complaint Personal history of prostate cancer and family history of prostate, colon, pancreas, breast and uterine or ovarian cancer. Medical history Cancer hx and treatment: Prostate cancer thomas score 8 diagnosed at age 65. One lymph node affected. Has received radiation and androgen deprivation therapy. Family History of Cancer Problem Relation Age of Onset ??? Colorectal Cancer Mother 55 ??? Prostate Cancer Father 80 ??? Cancer Maternal Grandfather 65 tongue ??? Breast Cancer Paternal Aunt 75 ??? Pancreatic Cancer Maternal Aunt 35 ??? Uterine Cancer Paternal Aunt 22 may have been ovarian ??? Breast Cancer Maternal Cousin 55 daughter of aunt with pancreatic cancer Maternal ethnic background is not reported. Paternal ethnic background is not reported. Genetic risk assessment Based on personal and family history, the likelihood that Nain would be found to have a mutation in a cancer predisposition gene is high enough to offer the option of genetic testing. Panel genetic testing for an inherited predisposition to cancer, including prostate and other cancers was discussed. The risks, benefits and limitations of panel genetic testing were reviewed, specifically a high rate of identifying a variant of uncertain significance, lack of knowledge of cancer risk for newly identified, moderate risk genes included in the panel and lack of effective screening, as well as cancer risk for other cancers not observed in the family. Nain opted for testing with [facility] Common Hereditary Cancers Panel, a next generation sequencing panel that simultaneously analyzes 47 genes, includingBRCA1 and BRCA2 which could have treatment implications and that contribute to increased risk for cancer. Nain was consented. His blood sample was drawn and sent to [facility]. Testing will take approximately 3 weeks. Nain will be contacted via telephone once his test results become available. If positive, we will schedule an in person follow-up appointment. At that time, we will discuss with Nain the implications that this test result may have for him, as well as his family members. We will also provide Nain with screening guidelines for cancer prevention and early detection, as well as answer any questions he may have. documented in this encounter Plan of Treatment Upcoming Encounters Date Type Specialty Care Team Description 02/04/2022 Office Visit Radiation Oncology Rama Ramos, COAL SAMPLER [facility] RADIATION ONCOLO [place], [place] [address] (Wo rk) documented as of this encounter Results Research Venipuncture (03/28/2019 2:42 PM EST) Analysis Performed At Patho logist Time Signature Research Drawn [facility] Venipuncture [facility] Specimen Anatomical Collection Method Collection Time Receive d Time (Source) Location / / Volume Laterality Blood specimen 03/28/2019 2:42 PM 020 3:44 (specimen) EST PM EST Resulting Agency Comment Spec In Lab Tre Walker MD CHEMISTRY ORDERABLES Performing Organization Address City/State/[place] [address] documented in this encounter Visit Diagnoses Diagnosis 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
--- OUTSIDE RECORDS SUMMARY | 2022-01-25 12:38 | XMS_ITS | Encounter Summary ---
:1950 Author Organization [facility] [place] [address] Care Team Providers Name Role Phone Celio Sanders MD Primary Care Provider Reason for Referral Consultation (Routine) - Closed Specialty Diagnoses / Procedures Referred By Contact Refer red To Contact Diagnoses BRCA gene mutation positive Prostate cancer metastatic to intrapelvic lymph node Vitamin D deficiency Swathi Uriostegui Hammer, Charles J, MD PROFESSIONAL SERVICES SPECIALIST [address] [place] [address] DR DERMATOLOGY [place] [address] [place], [place] [address] Referral ID Status Reason Start Date Expiration Date Visits V isits Requested Authorized [id number] Closed Consult, 04/16/2021 10/13/2021 1 1 Test & Treat Encounter Details Date Type Department Care Team Description 04/13/2021 Office Visit Hematology/Oncology Swathi Uriostegui gene mutation positive; at [facility] KENNY Duncan 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; [address] [place] [address] DR Vitamin D deficiency [place], [place] HEMATOLOGY ONCO LOGY [address] [place], [place] [phone] (Wo rk) Social History Tobacco Use Types [...] Sign Reading Time Taken Comments Blood Pressure 160/83 04/13/2021 10:45 AM EST Pulse 92 04/13/2021 10:45 AM EST Temperature 36.2 ??C (97.1 ??F) 04/13/2021 10:45 AM EST Respiratory Rate 20 04/13/2021 10:45 AM EST Oxygen Saturation 98% 04/13/2021 10:45 AM EST Inhaled Oxygen Concentration - - Weight 80.5 kg (177 lb 6.4 oz) 04/13/2021 10:45 AM EST Height 160 cm (5' 2.99) 04/13/2021 10:45 AM EST Body Mass Index 31.43 04/13/2021 10:45 AM EST documented in this encounter Progress Notes Swathi Uriostegui APRN - 04/13/2021 10:30 AM EST Subjective: Patient ID: Nain Mckeon is a 70 y.o. male. Patient Active Problem List Diagnosis [...] Foreign travel HPI Nain Mckeon is a 70 y.o. male. Problem List: 1. Prostate cancer, [...] - Result: [facility]??Common Hereditary Cancers Panel??showed that Tasiacarries a pathogenic variant (mutation) in BRCA2 specifically c.1929del(p.[id number]). 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 At the time of the appointment,??Tasiawas provided with a printed copy of his??test result and an informational packet addressing a positive test result. ?? The following??47??genes were evaluated for sequence changes and exonic deletions/duplications: APC,RUMA, AXIN2, BARD1, BMPR1A, BRCA1, BRCA2, BRIP1, CDH1, CDK4, CDKN2A (p14ARF), CDKN2A (i50WLT1g), CHEK2, CTNNA1, DICER1, EPCAM (EPCAM: Deletion/duplication testing [...] in the AXIN2 and CTNNA1??genes, specifically c.1531A>T (p.Ycl313Nop) and c.515A>T (p.Clq729Reb), were??detected. ? Interpretation: The most significant consequences of carrying a pathogenic variant in BRCA2 are increased risks for breast cancer and ovarian cancer??in women.??For men, the most significant consequence is for prostate cancer so this finding is felt to be related to Nancies cancer.??Other cancers associated with QBCO6clc??breast cancer in men,??pancreatic, and melanoma. ??It is [...] with them. ?? Nain's sons live in [place] and [place]. ??They can go to the website of [...] and mailing address stay updated in the [facility] system, in order for us to reach [...] possibility in the future,??Dr. Ara Mary, a ladies underwear operator at [facility] in [place], is willing to discuss these screening options with Nain.??Nain??can schedule an appointment with her by reaching her department secretary at [phone]. ?? Prostate Cancer Screening for Nain's sons [...] ?? Periodic colonoscopy screening as recommended by??Nain's ladies underwear operator. ?. ??SUMMARY ASSESSMENT/PLAN 07/24 He was diagnosed [...] seen in 2016 is no longer seen. He has been off lupron since05/04/19. We will continue to follow him and will plan to see him in three months with a PSA. ? Soc Hx: , lives in [place], [place]. He goes to [place] from December to June. 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, formerly worked in [place] for a [employer] ?? Fam Hx: Father with prostate cancer diagnosed in his 80s. Also had alzheimer's disease Mother had colon cancer, diagnosed in her 50s Pat Aunt had breast cancer in her 80s Pat Aunt had uterine cancer Mat aunt had pancreatic cancer in her 30s or 40s ?? They have 2 sons, both in good health ?? 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 (Refer to history and plan as summarized above.) Nain returns to the [facility] onc[facility] clinic in [facility] today for follow up surveillance visit with PSA review. Nain is alone in clinic today. His last Lupron injection was 04/26. Aberaterone caused a bipolar exacerbation. He had a major depressive episode in fall 2019 requiring hospitalization and has now been at home since 03/27. Nain is feeling well today. His affect is bright and interactive also. He has good energy. Since thelast clinic visit he has started swimming 5-6 times a week at the [facility] [address]. He also walks his dogs daily. His appetite is good. He takes probiotics daily both for digestion and for help with his depression as he has researched a connection between probiotics, brain and vagus nerve. He feels his depression has been under good control. He denies any bowel issues. He denies any new muscle or bony aches or pains. No extremity swelling. He denies any blood in urineor difficulty voiding. He is followed also by Dr. Curran in urology. Nain denies fevers, chills, night sweats or new illnesses since his last clinic visit. He denies shortness of breath, cough, or chest pain. He last had a colonoscopy 07/18. He will hold off on a mammogram at this point. He will have a breastexam today. Nain is in agreement to see a seed laboratory technician for baseline exam as his BRCA2 positive status increases melanoma risk. I will send that referral. No Known Allergies Current Medications ??? lactobacillus rhamnosus, GG, (CULTURELLE) 10 billion cell Capsule ??? vitamin E mixed (NATURAL VITAMIN E ORAL) ??? DULoxetine DR (Cymbalta) 30 mg Capsule, Delayed Release(E.C.) ??? clonazePAM (KlonoPIN) 1 mg Tablet ??? melatonin 5 mg Tablet ??? FluZONE High-Dose 2018-20, PF, 180 mcg/0.5 mL Syringe ??? multivitamin (THERAGRAN) Tablet ??? lamoTRIgine (LAMICTAL) 150 mg Tablet ??? TURMERIC ROOT EXTRACT ORAL ??? pravastatin (PRAVACHOL) 40 mg Tablet ??? LEVOTHYROXINE SODIUM (LEVOTHROID ORAL) Social History Tobacco Use ??? Smoking status: Never Smoker ??? Smokeless tobacco: Never Used Vaping Use ??? Vaping Use: Never used Substance Use Topics ??? Alcohol use: Yes Comment: beer and wine twice a month ??? Drug use: No Review of Systems Constitutional: Negative for activity change, fatigue and unexpected weight change. HENT: Negative. Eyes: Negative. Respiratory: Negative for cough and shortness of breath. Cardiovascular: Negative for chest pain and palpitations. Gastrointestinal: Negative for abdominal pain, constipation and diarrhea. Endocrine: Negative. Denies hot flashes Genitourinary: Negative. Negative for difficulty urinating and hematuria. Musculoskeletal: Negative. Skin: Negative. Neurological: Negative. Hematological: Negative. Psychiatric/Behavioral: Negative. Depression symptoms improving Objective: Physical Exam Constitutional: General: He is not in acute distress. Appearance: Normal appearance. Cardiovascular: Rate and Rhythm: Normal rate and regular rhythm. Heart sounds: Normal heart sounds. Pulmonary: Breath sounds: Normal breath sounds. No wheezing or rales. Chest: Breasts: Right: No axillary adenopathy or supraclavicular adenopathy. Left: No axillary adenopathy or supraclavicular adenopathy. Abdominal: Palpations: Abdomen is soft. Tenderness: There is no abdominal tenderness. Musculoskeletal: General: Normal range of motion. Comments: Demonstrates good ROM of arms and legs Lymphadenopathy: Cervical: No cervical adenopathy. Upper Body: Right upper body: No supraclavicular or axillary adenopathy. Left upper body: No supraclavicular or axillary adenopathy. Skin: General: Skin is warm and dry. Findings: Rash: .vs. Neurological: Mental Status: He is alert and oriented to person, place, and time. Coordination: Coordination normal. Gait: Gait normal. Psychiatric: Mood and Affect: Mood normal. Thought Content: Thought content normal. Judgment: Judgment normal. Comments: Affect bright - mood light Breast Exam - Left breast - no masses palpated, no skin changes, no nipple drainage. Right breast - no masses palpated, no skin changes, no nipple drainage. No axillary adenopathy or swelling left or right. BP 160/83 (BP Location (NBP): Right arm, Patient Position: Sitting) Pulse 92 Temp 36.2 ??C (97.1??F) (Temporal) Resp 20 Ht 160 cm (5' 2.99) Wt 80.5 kg (177 lb 6.4 oz) SpO2 98% BMI 31.43kg/m?? LABS 04/10/21 WBC 8.63; ANC 4.51; H/H 12.7/38.8; PLT 307; BUN 29; CREAT 1.1; ALP 59; AST 25; ALT 33. 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 Nain returns to the [facility] oncology clinic in [facility] today for follow up surveillance visit with PSA review. He has no physical complaints and is feeling well following a major depressive episode that occurredfall 2019. No further depressive episodes. Emotional outlook much improved. I reviewed CBC, CMP and ultrasensitive PSA with Nain today. PSA ultrasensitive had increased minimally. No physical signs of cancer. Plan RTC in 3 months for visit, labs, PSA and VIT D level. Continue to monitor as ultrasensitive PSA remains >0.2. Continue good efforts at daily exercise along with healthy diet. Referral to dermatology for baseline exam due to elevated melanoma risk. documented in this encounter Plan of Treatment Upcoming Encounters Date Type Specialty Care Team Description 02/04/2022 Office Visit Radiation Oncology Rama Ramos APRN [facility] RADIATION ONCOLO [place], [place] [address] (Wo rk) Scheduled Referrals Name Type Priority Associated Diagnoses Order S chedule Referral to Outpatient Referral Routine BRCA gene mutation Or dered: Dermatology positive 04/16/2021 Prostate cancer metastatic to intrapelvic lymph node Vitamin D deficiency documented as of this encounter Visit Diagnoses Diagnosis BRCA gene mutation positive 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 Vitamin D deficiency Unspecified vitamin D deficiency documented in this encounter Care Teams Section Leader Screen Printing Relationship Specialty Start Date End Date Celio Sanders MD PCP - General Internal Medicine 05/19/16 [address] [place] [address] documented as of this encounter
--- OUTSIDE RECORDS SUMMARY | 2022-01-25 12:38 | XMS_ITS | Encounter Summary ---
:1950 Author Organization [facility] [place] [address] Care Team Providers Name Role Phone Celio Sanders MD Primary Care Provider Reason for Referral Consultation (Routine) - Closed Specialty Diagnoses / Procedures Referred By Contact Refer red To Contact Hematology and Oncology Diagnoses Malignant neoplasm of prostate Remy Barillas Stj Hem Onc Office MD [address] [place] [phone] [place] [address] Referral ID Status Reason Start Date Expiration Date Visits V isits Requested Authorized [id number] Closed Consult, 08/18/2018 08/18/2019 1 1 Test & Treat Encounter Details Date Type Department Care Team Description 08/18/2018 Office Visit Hematology/Oncology Remy Barillas Ma lignant neoplasm of at [facility] prostate [address] [place] [phone] ONCOLOGY [phone] [place], [place] [address] Social History Tobacco Use Types Packs/Day Years Used Date Smoking Tobacco: Never Smokeless Tobacco: Never Alcohol Use Standard Drinks/Week Comments Yes 0 (1 standard drink = 0.6 oz pure alcoho l) beer and wine twice a month Sex Assigned at Date Recorded Not on file documented as of this encounter Last Filed Vital Signs Vital Sign Reading Time Taken Comments Blood Pressure 119/64 08/18/2018 11:08 AM EDT Pulse 88 08/18/2018 11:08 AM EDT Temperature 36.2 ??C (97.1 ??F) 08/18/2018 11:08 AM EDT Respiratory Rate 16 08/18/2018 11:08 AM EDT Oxygen Saturation 100% 08/18/2018 11:08 AM EDT Inhaled Oxygen Concentration - - Weight 84.3 kg (185 lb 12.8 oz) 08/18/2018 11:08 AM EDT Height - - Body Mass Index 32.91 08/06/2017 8:00 PM EDT documented in this encounter Progress Notes Remy Barillas MD - 08/18/2018 11:00 AM EDT Subjective: Patient ID: Nain Mckeon is a 67 y.o. male. Problem List: 1. Prostate cancer, cT2b, N1 A. Presented with hematuria TRUS prostate biopsies 04/2016 - Adenocarcinoma in 5/12 cores (all on right side), T2b, [place] 8 Darlyn-neural invasion present PSA - 47.5 [...] 6. S/p appendectomy 7. Psoriasis HPI Mr. Farrow is seen in f/u of prostate cancer. This is his first visit with me. On presentation today, he is accompanied by his Yaneth. He recently returned from [place] where he is followed by Dr. Coreas. He has been continuing to receive lupron while there. He says he is doing ok. His main complaint is fatigue which is not new and he wonders if it is related to the Lupron. He walks the dog every day, plays basketball once a week and swims three times per week. No areas of pain. His appetite is good and his weight is up compared with 11/23, #. His bowels are ok. He urinates without difficulty. He has not been using the flomax. He has to get up about once a night to urinate. Soc Hx: , lives in [place], [place]. He goes to [place] from December to June. 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 He has no axillary adenopathy. Right: No inguinal and no supraclavicular adenopathy present. Left: No inguinal and no supraclavicular adenopathy present. Neurological: He is alert and oriented to person, place, and time. Coordination normal. Skin: Skin is warm and dry. No erythema. Psychiatric: He has a normal mood and affect. His behavior is normal. Vitals reviewed. Labs: WBC/ANC - 5., Hgb/Hct - 14.1/41.5, Plts - 237,000. BUN/Cr -22/1.09. Glucose - 132. Lytes and LFTs o/w unremarkable PSA 08/11/18 <0.1 11/15/17 <0.1 06/23/17 <0.1 04/2016 47.5 Assessment and Plan: Mr. Mckeon is a 67 yo male seen in f/u of very high risk prostate cancer. He was diagnosed [...] and see him again in three months. Given his personal and family history, we discussed a referral to our Familial Cancer Program and hewould like to do that. I will make a referral. documented in this encounter Plan of Treatment Upcoming Encounters Date Type Specialty Care Team Description 02/04/2022 Office Visit Radiation Oncology Rama Ramos APRN [facility] RAD[address], [place] [address] (Wo rk) Scheduled Referrals Name Type Priority Associated Diagnoses Order S chedule Referral to Outpatient Referral Routine Malignant neoplasm Or dered: Familial Cancer of prostate 08/18/2018 documented as of this encounter Procedures Procedure Name Priority Date/Time Associated Diagnosis Comme nts LAB SCAN 08/11/2018 12:00 AM Results for this EDT procedure are i n the results section . documented in this encounter Results PSA (Ultrasensitive) (03/28/2019 2:42 PM EST) athologist Signature PSA Total <0.01 0.00 - [facility] (Ultrasensitiv 4.00 ng/mL [facility] LABORATORY Specimen Anatomical Collection Method Collection Time Receive d Time (Source) Location / / Volume Laterality Blood specimen 03/28/2019 2:42 PM 020 2:55 (specimen) EST PM EST Resulting Agency Comment Spec In Lab Remy Barillas MD CHEMISTRY ORDERABLES Performing Organization Address City/State/[place] [address] Comprehensive metabolic panel (non-fasting) (03/28/2019 2:42 PM EST) athologist Signature Glucose Lvl 119 65 - 199 [facility] mg/dL [facility] LABORATORY Comment: Diabetes: >=200 mg/dL plus symp toms BUN 19 10 - 20 mg/dL [facility]ORATORY Creatinine 1.00 0.80 - 1.50 mg/dL [facility] LABORATORY Sodium 143 135 - 145 mmol/L [facility]OR[facility] Potassium 4.1 3.5 - 5.0 mmol/L [facility] Comment: Please note: ??Patients with WBC >100,00 0 may have falsely elevated Potassium levels. ??For accurate Potassium quantif ication in these patients send serum separator tube (gold top) for subsequent determinations. ??Contact the Clinical Chemistry Laboratory if there are any qu estions. Chloride 105 98 - 107 mmol/L [facility] CO2 29 22 - 31 mmol/L [facility] Anion Gap 9 5 - 15 mmol/L [facility] Calcium 9.0 8.5 - 10.5 mg/dL [facility] Total Protein 7.2 6.1 - 8.0 gm/dL [facility] Albumin 4.4 3.2 - 5.2 gm/dL [facility] AST 22 0 - 39 unit/L [facility] ALT 26 0 - 55 unit/L [facility] Alk Phos 75 40 - 130 unit/L [facility] Total Bilirubin 0.2 0.2 - 1.3 mg/dL [facility] Estimated GFR 76 >=60 mL/min/1.73 m?? [facility] Comment: The eGFR was calculated using the CKD-EP I equation. As with all creatinine based estimates of kidney function, eGFR values calculated with the CKD-EPI equation are not accurate in patients wi th acute kidney failure, extremes of body mass or the acutely ill. [email or web address]/[facility] eGFR 88 >=60 mL/min/1.73 m?? [facility] Comment: The eGFR was calculated using the CKD-EP I equation. As with all creatinine based estimates of kidney function, eGFR values calculated with the CKD-EPI equation are not accurate in patients wi th acute kidney failure, extremes of body mass or the acutely ill. [email or web address] Specimen Anatomical Collection Method Collection Time Receive d Time (Source) Location / / Volume Laterality Blood specimen 03/28/2019 2:42 PM 020 2:55 (specimen) EST PM EST Resulting Agency Comment Spec In Lab Remy Barillas MD CHEMISTRY ORDERABLES Performing Organization Address City/State/[place] [address] SCAN DOC: LAB (08/11/2018 12:00 AM EDT) Narrative 08/11/2018 12:00 AM EDT This result has an attachment that is no t available. Ordered by an unspecified provider. Scanning Provider MEDIA MGR SCAN EXT ORDR/RSLT documented in this encounter Visit Diagnoses Diagnosis Malignant neoplasm of prostate documented in this encounter Care Teams Lead Former Relationship Specialty Start Date End Date Celio Sanders MD PCP - General Internal Medicine 05/19/16 [address] [place] [address] documented as of this encounter
--- OUTSIDE RECORDS SUMMARY | 2022-01-25 12:38 | XMS_ITS | Encounter Summary ---
:1950 Author Organization [facility] [address] Care Team Providers Name Role Phone Celio Sanders MD Primary Care Provider Encounter Details Date Type Department Care Team Description 02/09/2021 Telephone Gastroenterology at [facility] [place] [address] Social History Tobacco Use Types Packs/Day Years [...] Visit Radiation Oncology Rama Ramos APRN [facility] RADIATION [address] [place], [place] [address] (Wo rk) documented as of this encounter Visit Diagnoses Not on filedocumented in this encounter Care Teams Cook Frozen Dessert Relationship Specialty Start Date End Date Celio Sanders MD PCP - General Internal Medicine 05/19/16 [address] [place], [place] [id number] documented as of this encounter
--- OUTSIDE RECORDS SUMMARY | 2022-01-25 12:38 | XMS_ITS | Encounter Summary ---
:1950 Author Organization [facility] [place] [address] Care Team Providers Name Role Phone Celio Sanders MD Primary Care Provider Reason for Visit Reason Comments Prostate Cancer Encounter Details Date Type Department Care Team Description 08/23/2017 Office Visit Hematology/Oncology Gael Anderson, [facility] ignant neoplasm of at [facility] [place] [facility] prostate [address] [place] [phone] (Wo rk) Social History Tobacco Use Types [...] Sign Reading Time Taken Comments Blood Pressure 113/57 08/23/2017 2:50 PM EDT Pulse 87 08/23/2017 2:50 PM EDT Temperature 36.7 ??C (98.1 ??F) 08/23/2017 2:50 PM EDT Respiratory Rate 18 08/23/2017 2:50 PM EDT Oxygen Saturation 97% 08/23/2017 2:50 PM EDT Inhaled Oxygen Concentration - - Weight 80.5 kg (177 lb 6.4 oz) 08/23/2017 2:50 PM EDT Height - - Body Mass Index 31.42 08/06/2017 8:00 PM EDT documented in this encounter Progress Notes Gael Anderson MD - 08/23/2017 3:00 PM EDT Diagnosis: High risk prostate cancer [...] Curran performed ultrasound-guided prostate biopsy that showed Andre 4+4 disease in 2 cores and Andre 4+3 disease in 3 additional cores. All [...] prostate cancer. He followed with oncologist in [place] initiated abiraterone 250 mg daily with low-fat [...] follow-up as far as his Lupron injection. Is actually exactly 12 weeks since his last injection in [place] and is due a Lupron shot today. He would prefer Eligard but that is not on her formulary so he is fine with Lupron. Overall he is doing quite well.. Jeanie require a admission to the hospital for short while for medication adjustment and has been home now a few days with no difficulties. He still notes some weakness overall since on the Lupron. He is really not having any other difficulties or problems. Review of systems is otherwise negative Past medical history and social history [...] of education: N/A Occupational History ??? 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 Smoking status: [...] Medications These changes are accurate as of 08/23/17 2:38 PM. If you have any questions, ask your nurse or doctor. Continued medications, unchanged Dose Details clonazePAM 2 mg Tab Commonly known as: KlonoPIN Take 0.5 tablets by mouth nightly as needed for Anxiety. 1 mg Quantity: 60 tablet Refills: 0 hydrOXYzine 50 mg Tab Commonly known as: ATARAX Take 1 tablet by mouth nightly as needed for Anxiety (sleep. First line as needed for sleep). 50 mg Quantity: 30 tablet Refills: 0 lamoTRIgine 150 mg Tab Commonly known as: LaMICtal Take 1 tablet by mouth daily. 150 mg Quantity: 30 tablet Refills: 1 LEVOTHROID ORAL Take 75 mcg by mouth daily. 75 mcg Refills: 0 OLANZapine 15 mg Tab Commonly known as: ZyPREXA Take 1 tablet by mouth nightly. 15 mg Quantity: 30 tablet Refills: 0 polyethylene glycol 17 gram Pwpk Commonly known as: MIRALAX Take 17 g by mouth daily as needed. 17 g Quantity: 14 each Refills: 0 pravastatin 40 mg Tab Commonly known as: PRAVACHOL Take 40 mg by mouth daily. 40 mg Refills: 0 tamsulosin 0.4 mg Cp24 Commonly known as: FLOMAX Take 2 capsules by mouth nightly. 0.8 mg Quantity: 60 tablet Refills: PRN [...] and axillary nodes normal Neurologic: Normal Vitals There were no vitals taken for this visit. Pathology: 05/17/16 Extradepartmental number: ??[id number]; collection date, 04/27/2016. A - Prostatic core needle biopsy, right lateral base: ? 1. Adenocarcinoma, grade group 3, [place] grade 4+3, ?involving 95% of the biopsy core. ? 2. Perineural invasion identified. B - Prostatic core needle biopsy, right medial base: ? 1. Adenocarcinoma, grade group 3, [place] grade 4+3, ?involving 95% of the biopsy core. ? 2. Perineural invasion identified. C - Prostatic core needle biopsy, right mid lateral: ? Adenocarcinoma, grade group 4, [place] grade 4+4, ? involving 90% of the biopsy core. D - Prostatic core needle biopsy, right mid medial: ? 1. Adenocarcinoma, grade group 4, [place] grade 4+4, ?involving 40% of the biopsy core. ? 2. Perineural invasion identified. E - Prostatic core needle biopsy, right lateral apex: ? Benign prostatic tissue. F - Prostatic core needle biopsy, right medial apex: ? Adenocarcinoma, grade group 3, [place] grade 3+4, ? involving 25% of the [...] lymph nodes based on size and morphology. Assessment and Plan: Nain has a high [...] and on Lupron I have recommended he try to do some exercising and fortunately he does still swimming ather local swimming pool. I think if he is able to do that regularly it should help things overall. He will call if there is issues or problems in the interim. documented in this encounter Plan of Treatment Upcoming Encounters Date Type Specialty Care Team Description 02/04/2022 Office Visit Radiation Oncology Rama Ramos, INSURANCE PRODUCER [facility] RAD[facility] [address] [place], [place] [address] (Wo rk) documented as of this encounter Visit Diagnoses Diagnosis Malignant neoplasm of prostate documented in this encounter Care Teams Heavy Duty Diesel Mechanic Relationship Specialty Start Date End Date Celio Sanders MD PCP - General Internal Medicine 05/19/16 [address] [place] [address] documented as of this encounter
--- OUTSIDE RECORDS SUMMARY | 2022-01-25 12:38 | XMS_ITS | Encounter Summary ---
:1950 Author Organization [facility] [place] [address] Care Team Providers Name Role Phone Celio Sanders MD Primary Care Provider Encounter Details Date Type Department Care Team Description 12/28/2019 Office Visit Hematology/Oncology Bay Barillas MD [facility] [place] [address] Prostate cancer at [facility] Swathi Uriostegui APRN [address] [place] [address] [place] [address] [address] [place] [address] Drive intrapelvic [place] node [phone] Social History Tobacco Use [...] Sign Reading Time Taken Comments Blood Pressure 134/75 12/28/2019 2:37 PM EDT Pulse 96 12/28/2019 2:37 PM EDT Temperature 36.1 ??C (96.9 ??F) 12/28/2019 2:37 PM EDT Respiratory Rate 18 12/28/2019 2:37 PM EDT Oxygen Saturation 98% 12/28/2019 2:37 PM EDT Inhaled Oxygen Concentration - - Weight 80.2 kg (176 lb 12.8 oz) 12/28/2019 2:37 PM EDT Height 160 cm (5' 2.99) 12/28/2019 2:37 PM EDT Body Mass Index 31.33 12/28/2019 2:37 PM EDT documented in this encounter Progress Notes Swathi Uriostegui, KENNY - 12/28/2019 2:30 PM EDT Subjective: Patient ID: Nain Mckeon [...] a pathogenic variant (mutation) in BRCA2 specifically c.1929del(p.[id number]). 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 At the time of the appointment,??Nain??was provided with a printed copy of his??test result and an informational packet addressing a positive test result. ?? The following??47??genes were evaluated for sequence changes and exonic deletions/duplications: APC,RUMA, AXIN2, BARD1, BMPR1A, BRCA1, BRCA2, BRIP1, CDH1, CDK4, CDKN2A (p14ARF), CDKN2A (d13GBG0a), CHEK2, CTNNA1, DICER1, EPCAM (EPCAM: Deletion/duplication testing [...] in the AXIN2 and CTNNA1??genes, specifically c.1531A>T (p.Xbc286Vds) and c.515A>T (p.Uvv426Gfc), were??detected. ? Interpretation: The most significant consequences of carrying a pathogenic variant in BRCA2 are increased risks for breast cancer and ovarian cancer??in women.??For men, the most significant consequence is for prostate cancer so this finding is felt to be related to Nain's cancer.??Other cancers associated with [id number]??breast cancer in men,??pancreatic, and melanoma. ??It is [...] with them. ?? Nain's sons live in [place] and [place]. ??They can go to the [...] and mailing address stay updated in the [facility] system, in order for us to reach [...] possibility in the future,??Dr. Ara Mary, a digital project coordinator at [facility] [place], is willing to discuss these screening options with Nain.??Nain??can schedule an appointment with her by reaching her filter cloth maker at [phone]. ?? Prostate Cancer Screening for Nain's sons [...] ?? Periodic colonoscopy screening as recommended by??Nain's digital project coordinator. ?. ??SUMMARY ASSESSMENT/PLAN 07/24 He was diagnosed [...] PSA. ? Soc Hx: , lives in [place], [place]. He goes to [place] from December to June. 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 Fam Hx: Father with prostate cancer diagnosed in his 80s. Also had alzheimer's disease Mother had colon cancer, diagnosed in her 50s Pat Aunt had breast cancer in her 80s Pat Aunt had uterine cancer Mat aunt had pancreatic cancer in her 30s or 40s ?? They have 2 sons, both in good health ?? INTERVAL HPI 12/28/19 Nain Mckeon is a 69 male diagnosed 05/21 with prostate cancer with perineural invasion and suspicious internal iliac LN. (Refer to history and plan as summarized above.) Nain returns to the [facility] onc[facility] clinic in [facility] today for follow up surveillance visit with PSA review. His last Lupron injection was 04/26. Nain reports he recently had a major depressive episode and is currently living in transitional housing following an inpatient stay at the [facility] about 3 weeks ago. Nain says he is feelingphysically well today and emotionally much improved. He says his doctors have adjusted his medications and his depression is much better. 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 Nain says physically he is doing well. He has a good appetite. He denies bowel issues, denies difficulty voiding and denies shortness or breath, chest pain or new cough. He has no abdominal pain and denies any new bony aches. He denies hot flashes. He is taking walks now about every other day for exercise. No Known Allergies Current Medications ??? lamoTRIgine (LaMICtal) 25 mg Tablet ??? venlafaxine (EFFEXOR-XR) 150 mg Capsule, Sust. Release 24 hr ??? FluZONE High-Dose 2019-20, PF, 180 mcg/0.5 mL Syringe ??? UNABLE TO FIND ??? mirtazapine (REMERON) 30 mg Tablet ??? [...] Skin: Negative. Neurological: Negative. Hematological: Negative. Psychiatric/Behavioral: Recent major depressive episode with hospitalization Objective: Physical Exam Constitutional: General: He is not in acute distress. Appearance: Normal appearance. Eyes: Extraocular Movements: Extraocular movements intact. Neck: Musculoskeletal: Neck supple. Cardiovascular: Rate and Rhythm: Normal rate and regular rhythm. Heart sounds: Normal heart sounds. Pulmonary: Breath sounds: Normal breath sounds. No wheezing or rales. Abdominal: Palpations: Abdomen is soft. Tenderness: There is no abdominal tenderness. Musculoskeletal: Normal range of motion. Lymphadenopathy: Cervical: No cervical adenopathy. Skin: General: Skin is warm and dry. Neurological: Mental Status: He is alert and oriented to person, place, and time. Coordination: Coordination normal. Psychiatric: Mood and Affect: Mood normal. Thought Content: Thought content normal. Comments: Good affect, maintains eye contact. BP 134/75 (Patient Position: Sitting) Pulse 96 Temp 36.1 ??C (96.9 ??F) (Temporal) Resp 18 Ht 160 cm (5' 2.99) Wt 80.2 kg (176 lb 12.8 oz) SpO2 98% BMI 31.33 kg/m?? PSA, Ultrasensitive 12/17/19 - <0.01 Assessment: Nain Mckeon is a 69 male diagnosed 05/21 with prostate cancer with perineural invasion and suspicious internal iliac LN. (Refer to history and plan as summarized above.) Nain returns to the [facility] oncology clinic in [facility] today for follow up surveillance visit with PSA review. He has no physical complaints and is recovering from a major depressive episode. I reviewed the PSA with Nain today, which remains negative. Plan RTC in 3 months for visit and PSA. Encourage daily exercise. Call sooner if any questions or concerns. 

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
--- OUTSIDE RECORDS SUMMARY | 2022-01-25 12:38 | XMS_ITS | Encounter Summary ---
:1950 Author Organization [facility] [place] [address] Care Team Providers Name Role Phone Celio Sanders MD Primary Care Provider Reason for Referral Consultation (Routine) - Closed Specialty Diagnoses / Procedures Referred By Contact Refer red To Contact Dermatology Diagnoses BRCA gene mutation positive Prostate cancer metastatic to intrapelvic lymph node Dayana Tompkins APRN [facility] [address] [place] [address] [place] [address] [place], [place] [address] Referral ID Status Reason Start Date Expiration Date Visits V isits Requested Authorized [id number] Closed Consult, 07/20/2021 07/20/2022 1 1 Test & Treat Encounter Details Date Type Department Care Team Description 07/20/2021 Orders Only Hematology/Oncology Dayana Tompkins, BRCA gene mutation positive; at [facility] GREASER OPERATOR 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 [address] [place] [address] DR [place], [place] MED[place]COLOG [place] [address] [place], [place] [phone] (Wo rk) Social History Tobacco Use Types [...] 02/04/2022 Office Visit Radiation Oncology Rama Ramos, GREASER OPERATOR [facility] [place], [place] [address] (Wo rk) Scheduled Referrals Name Type Priority Associated Diagnoses Order S chedule Referral to Outpatient Referral Routine BRCA gene mutation Or dered: Dermatology positive 07/20/2021 Prostate cancer metastatic to intrapelvic lymph node documented as of this encounter Visit Diagnoses Diagnosis BRCA gene mutation positive 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
--- OUTSIDE RECORDS SUMMARY | 2022-01-25 12:38 | XMS_ITS | Encounter Summary ---
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 At the time of the appointment,??Nain??was provided with a printed copy of his??test result and an informational packet addressing a positive test result. ?? The following??47??genes were evaluated for sequence changes and exonic deletions/duplications: APC,RUMA, AXIN2, BARD1, BMPR1A, BRCA1, BRCA2, BRIP1, CDH1, CDK4, CDKN2A (p14ARF), CDKN2A (w31IOQ1o), CHEK2, CTNNA1, DICER1, EPCAM (EPCAM: Deletion/duplication testing [...] in the AXIN2 and CTNNA1??genes, specifically c.1531A>T (p.Djr883Zkg) and c.515A>T (p.Lmc437Aau), were??detected. ? Interpretation: The most significant consequences of carrying a pathogenic variant in BRCA2 are increased risks for breast cancer and ovarian cancer??in women.??For men, the most significant consequence is for prostate cancer so this finding is felt to be related to Nancies cancer.??Other cancers associated with DNFN8lul??breast cancer in men,??pancreatic, and melanoma. ??It is [...] with them. ?? Nain's sons live in [place] and [place]. ??They can go to the website of [...] and mailing address stay updated in the [facility] system, in order for us to reach [...] possibility in the future,??Dr. Ara Mary, a jewelry internship at [facility] in [place], is willing to discuss these screening options with Nain.??Nain??can schedule an appointment with her by reaching her typing secretary at [phone]. ?? Prostate Cancer Screening for Nain's sons [...] ?? Periodic colonoscopy screening as recommended by??Nain's jewelry internship. ?. ??SUMMARY ASSESSMENT/PLAN 07/24 He was diagnosed [...] PSA. ? Soc Hx: , lives in [place], [place]. He goes to [place] from December to June. 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 Fam Hx: Father with prostate cancer diagnosed in his 80s. Also had alzheimer's disease Mother had colon cancer, diagnosed in her 50s Pat Aunt had breast cancer in her 80s Pat Aunt had uterine cancer Mat aunt had pancreatic cancer in her 30s or 40s ?? They have 2 sons, both in good health ?? 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 (Refer to history and plan as summarized above.) Nain returns to the [facility] oncology clinic in [facility] today for follow up [...] swimming 5-6 times a week at the [facility] [employer]. He also walks his dogs daily. His [...] chest pain. He last had a colonoscopy in May 2021. He will hold off on a mammogram at this point. He will havea breast exam today. Nain is in agreement to see a blending tank tender for baseline exam as his BRCA2 positive status increases melanoma risk- he is still waiting to hear from them. No Known Allergies Current Medications ??? cholecalciferol, vitamin D3, (VITAMIN D3 ORAL) ??? lactobacillus rhamnosus, GG, (CULTURELLE) 10 billion cell Capsule ??? vitamin E mixed (NATURAL VITAMIN E ORAL) ??? DULoxetine DR (Cymbalta) 30 mg Capsule, Delayed Release(E.C.) ??? clonazePAM (KlonoPIN) 1 mg Tablet ??? melatonin 5 mg Tablet ??? FluZONE High-Dose 2019-20, PF, 180 mcg/0.5 mL Syringe ??? multivitamin (THERAGRAN) Tablet ??? lamoTRIgine (LAMICTAL) 150 mg Tablet ??? TURMERIC ROOT EXTRACT ORAL ??? pravastatin (PRAVACHOL) 40 mg Tablet ??? LEVOTHYROXINE SODIUM (LEVOTHROID ORAL) Social History Tobacco Use ??? Smoking status: Never Smoker ??? Smokeless tobacco: Never Used Vaping Use ??? Vaping Use: Never used Substance Use Topics ??? Alcohol use: Not Currently Comment: beer and wine twice a month [...] adenopathy or swelling left or right. BP 158/82 (Patient Position: Sitting) Pulse 95 Temp 36.5 ??C (97.7 ??F) (Temporal) Resp 18 Ht 160 cm (5' 2.99) Wt 84.1 kg (185 lb 6.4 oz) SpO2 98% BMI 32.85 kg/m?? LABS 07/07/21- WBC-8.24 Hgb/Hct-13.5/40.8 Plt-297 ANC-4.40 Na-137 K+-4.9 BUN/cr-31/1.0 Glucose-120 Ca-9.1 T. Bili-0.5 AST-33 ALT-38 Alk phos-73 Albumin-4.3 04/10/21 WBC 8.63; ANC 4.51; H/H 12.7/38.8; PLT 307; BUN 29; CREAT 1.1; ALP 59; AST 25; ALT 33. 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 Nain returns to the [facility] oncology clinic in [facility] today for follow up surveillance visit with PSA review. He has no physical complaints and is feeling well following a major depressive episode that occurredfall 2019. No further depressive episodes. Emotional outlook much improved. I reviewed CBC, CMP and ultrasensitive PSA with Nain today. PSA ultrasensitive had increased minimally. No physical signs of cancer. Colonoscopy was done in May 2021. One polyp was found. Pathology showed tubular adenoma. He was not told when he should have a repeat colonoscopy. We will check with Dr. Barillas and let him know. Plan RTC in 3 months for visit, labs, PSA Continue to monitor as ultrasensitive PSA remains >0.2. Continue good efforts at daily exercise along with healthy diet. Has not heard from Dermatology referral for baseline exam due to elevated melanoma risk. Clarify interval for next colonoscopy. 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
--- OUTSIDE RECORDS SUMMARY | 2022-01-25 12:38 | XMS_ITS | Encounter Summary ---
:1950 Author Organization [place] [address] Care Team Providers Name Role Phone Celio Sanders MD Primary Care Provider Encounter Details Date Type Department Care Team Description 05/12/2021 Anesthesia Event Gastroenterology at [facility] Celio Alvarado DO [facility] [place] [address] [facility] Unruly Cook MD [facility] [place] [address] [place] [address] Anesthesia Record Procedure Summary Procedure Name Responsible Anesthesia Start Anesthesia Stop Anesthesiologist Time Time COLONOSCOPY, Celio Alvarado DO 05/12/21 1423 05/12/21 1 509 DIAGNOSTIC (Trunk) Events Date Time Event Comment 05/12/2021 1411 1423 AN Verify 1423 Start 1423 An Start Data 1425 An Induction 1427 Anesthesia Ready 1509 an stop data 1509 Recovery or ICU Handoff Patient care was transferred to the destination unit staff after review of the patient's medica l history, current anesthetic/surgi joao status and plan, according to the Provider Handoff Checklist. 1509 Stop Name Total IV Lidocaine 50 mg Propofol 100 mg Propofol INF 519.23 mg lactated ringers infusion 400 mL Agents Name O2 Auxiliary Flowmeter 1 Blood No blood administrations on file. Lines, Drains, and Airways Type Details Placement Removal PIV 05/12/21; 1400; median 05/12/21 1400 by Scooter, 05/12/21 1559 by Dottie, cubital vein (antecubital VANNA Dugan RN fossa), right; [id number] catheter system; Anatomical Landmarks; US Not Used; 20 gauge; Garrison Helms RN; appears comfortable, tolerated well; 05/12/21; 1559 documented in this encounter Social History Tobacco Use Types Packs/Day Years Used Date Smoking Tobacco: Never Smokeless Tobacco: Never Alcohol Use Standard Drinks/Week Comments Not Currently 0 (1 standard drink = 0.6 oz pure alcoho l) beer and wine twice a month Sex Assigned at Date Recorded Not on file documented as of this encounter OR Notes Anesthesia Postprocedure Evaluation - Celio Alvarado DO - 05/12/2021 3:47 PM EST Department of Anesthesiology Post-procedure Note Patient: Nain Mckeon Procedure Summary Date: 05/12/21 Room / Location: [facility] ENDO 1 / [facility] ENDOSCOPY Anesthesia Start: 1423 Anesthesia Stop: 1509 Procedure: COLONOSCOPY, DIAGNOSTIC (N/A Trunk) Diagnosis: (BRCA gene mutation positive) Surgeons: Nicky Bray MD Responsible Provider: Celio Alvarado DO Anesthesia Type: MAC ASA Status: 2 All Anesthesia Providers: Anesthesiologist: Celio Alvarado DO AUTOMOTIVE SALES EXECUTIVE: Tarun Brambila CRNA Vitals Value Taken Time BP 116/60 05/12/21 1530 Temp Pulse Resp SpO2 100 % 05/12/21 1530 Pain Level Patient Location: PACU/[facility] Level of Consciousness: Conscious but Sleepy Pain Management: Satisfactory Analgesia PONV: None Cardiovascular Status: At Baseline and Hemodynamically Stable Respiratory Status: At Baseline and Room Air Postoperative Fluid Status: Intravascular EUvolemia Possible Anesthetic Complications: NONE apparent at time of evaluation Final Primary Anesthesia Type: MAC (The anesthetic type performed was the same as planned.) Comments: Anesthesia Preprocedure Evaluation - Unruly Noriega MD - 05/12/2021 12:46 PM EST Pre-Anesthesia Evaluation for: Nain Mckeon a 70 y.o. male. Procedure(s): COLONOSCOPY, DIAGNOSTIC Patient Active Problem List Diagnosis Date Noted ??? Toxic encephalopathy 08/06/2017 ??? Bipolar disorder, current episode manic without psychotic features, moderate 08/06/2017 ??? Bipolar II disorder 07/27/2017 ??? Hypothyroidism 07/27/2017 ??? Hyperlipidemia 07/27/2017 ??? Hx of appendectomy 07/27/2017 ??? Hx laparoscopic cholecystectomy 07/27/2017 ??? Prostate cancer metastatic to intrapelvic lymph node 07/07/2016 ??? 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 07/07/2016 ??? Foreign travel 01/26/2011 Past Medical History: Diagnosis Date ??? Anxiety ??? Finger fracture multiple from basket ball injuries ??? Hyperlipidemia ??? Prostate cancer Past Surgical History: Procedure Laterality Date ??? APPENDECTOMY burst ??? CHOLECYSTECTOMY, LAPAROSCOPIC ??? PROSTATE BIOPSY Social History Tobacco Use ??? Smoking status: Never Smoker ??? Smokeless tobacco: Never Used Substance Use Topics ??? Alcohol use: Yes Comment: beer and wine twice a month Social History Substance and Sexual Activity Drug Use No No Known Allergies Medications: MAR and/or home medications have been reviewed. Physical Exam: Preprocedure Vitals Current as of 05/12/21 1246 No BP, pulse, respiration, SpO2, or temperature recorded. Height: Weight: BMI: IBW: Airway Assessment: Mallampati: II Cardiovascular Assessment: system normal Pulmonary Assessment: unlabored breathing pulmonary exam normal Dental Assessment: Misc Assessment: IV access: Peripheral line Last Filed Perioperative Cognitive Screening None Anesthesia Plan: ASA 2 MAC, with a(n) intravenous induction Colonoscopy BRCA pos Prostate cancer HLD Propofol based sedation discussed with patient, all questions answered. Reviewed the differences between general anesthesia and sedation, included the fact that awareness and recall is normal and to be expected with sedation. Patient acknowledged these differences and verbalized understanding. Explained that anesthesia at [facility] is commonly delivered in a team care model fashion, with either resident or CRNAs supervised by an anesthesiologist, who frequently supervises one or more other anesthesia deliveries, provide care. -- Unruly Noriega MD, MS Informed Consent: Anesthetic plan and risks discussed with patient. Plan discussed with AUTOMOTIVE SALES EXECUTIVE. Anesthesia Screening documented in this encounter Plan of Treatment Upcoming Encounters Date Type Specialty Care Team Description 02/04/2022 Office Visit Radiation Oncology Rama Ramos, STEAM GENERATING POWERPLANT MECHANIC [facility] RADI[facility] [place], [place] [address] (Wo rk) documented as of [...] 2:00 PM EST 100 mL/hr 100 mL/hr lidocaine (pf) (Xylocaine) (20 mg/mL) 2% Given 05/12/2021 2:25 P M EST 50 mg injection syringe Intravenous, PRN, Starting on 05/12/21 at 1425, Until 05/12/21 at 1509, Anesthesia Intra-op, Routine propofoL (Diprivan) (10 mg/mL) New Bag 05/12/2021 2:25 PM 150 mcg/kg/min 72.45 mL/hr infusion EST Intravenous, CONTINUOUS PRN, Starting on 05/12/21 at 1425, Until 05/12/21 at 1509, Anesthesia Intra-op, Routine propofoL (Diprivan) 10 mg/mL bolus injection Given 10/2021 2:25 PM EST 100 mg (Anesthesia) Intravenous, PRN, Starting on 05/12/21 at 1425, Until 05/12/21 at 1509, Anesthesia Intra-op documented in this encounter Care Teams District Claims Manager Relationship Specialty Start Date End Date Celio Sanders MD PCP - General Internal Medicine 05/19/16 [address] [place] [address] documented as of this encounter
--- OUTSIDE RECORDS SUMMARY | 2022-01-25 12:38 | XMS_ITS | Encounter Summary ---
:1950 Author Organization [facility] [place] [address] Care Team Providers Name Role Phone Celio Sanders MD Primary Care Provider Encounter Details Date Type Department Care Team Description 03/23/2019 Notes Only Hematology and Oncology at Tre Clarke MD [facility] Madeleine jarrett HEMATOLOGY/[place] [address] [place] [address] [phone] (Wo rk) Social History Tobacco Use Types Packs/Day Years Used Date Smoking Tobacco: Never Smokeless Tobacco: Never Alcohol Use Standard Drinks/Week Comments Yes 0 (1 standard drink = 0.6 oz pure alcoho l) beer and wine twice a month Sex Assigned at Date Recorded Not on file documented as of this encounter Progress Notes Tre Walker MD - 03/23/2019 4:37 PM EST I have reviewed the patient's record and given personal and/or family history of cancer he should beseen by genetic counselor. This is scheduled for next week. documented in this encounter Plan of Treatment Upcoming Encounters Date Type Specialty Care Team Description 02/04/2022 Office Visit Radiation Oncology Rama Ramos APRN [facility] RADIATION [place], [place] [address] (Wo rk) documented as of this encounter Visit Diagnoses Not on filedocumented in this encounter Care Teams Control Specialist Relationship Specialty Start Date End Date Celio Sanders MD PCP - General Internal Medicine 05/19/16 [address] [place] [address] documented as of this encounter
--- OUTSIDE RECORDS SUMMARY | 2022-01-25 12:38 | XMS_ITS | Encounter Summary ---
:1950 Author Organization [facility] [place] [address] Care Team Providers Name Role Phone Celio Sanders MD Primary Care Provider Reason for Referral Surgical (Urgent) - Closed Specialty Diagnoses / Procedures Referred By Contact Refer red To Contact Gastroenterology Diagnoses BRCA gene mutation positive Remy Barillas MD [facility] Endoscopy [address] [facility] [place] [address] [place] [address] Referral ID Status Reason Start Date Expiration Date Visits Requ ested Visits Authorized [id number] Closed 02/03/2021 02/03/2022 1 1 Encounter Details Date Type Department Care Team Description 02/03/2021 Orders Only Hematology and Remy Barillas, BRCA ge ne mutation Oncology at [facility] [place] positive [facility] [place] [address] ONCOLOGY [phone] [place], [place] [address] Social History Tobacco Use Types [...] 02/04/2022 Office Visit Radiation Oncology Rama Ramos, BLANKET WINDER HELPER [facility] ER RADIATION [place], [place] [address] (Wo rk) Scheduled Referrals Name Type Priority Associated Order Schedule Diagnoses REFERRAL TO Outpatient Referral Routine BRCA gene mutation Or dered: COLONOSCOPY PROCEDURE positive 2020 documented as of this encounter Visit Diagnoses Diagnosis BRCA gene mutation positive documented in this encounter Care Teams Drapery And Upholstery Measurer Relationship Specialty Start Date End Date Celio Sanders MD PCP - General Internal Medicine 05/19/16 [address] [place] [address] documented as of this encounter
--- OUTSIDE RECORDS SUMMARY | 2022-01-25 12:38 | XMS_ITS | Encounter Summary ---
:1950 Author Organization [facility] [place] [address] Care Team Providers Name Role Phone Celio Sanders MD Primary Care Provider Reason for Visit Reason Comments Chemotherapy Lupron Treatment/Therapy Plan Authorization (Routine) - Authorized Specialty Diagnoses / Procedures Referred By Contact Refer red To Contact Diagnoses Prostate cancer metastatic to intrapelvic lymph node Gael Anderson MD [facility] Hem Onc Office [address] [place] [address] [address] [place] [address] Phone: Fax: Referral ID Status Reason Start Date Expiration Date Visits V isits Requested Authorized [id number] Authorized 11/15/2017 11/15/2018 1 1 Encounter Details Date Type Department Care Team Description 08/18/2018 Infusion Hematology Oncology at [facility] cancer metastatic [facility] to intrapelvic lymph node [address] [place] [phone] Social History Tobacco Use Types Packs/Day Years Used Date Smoking Tobacco: Never Smokeless Tobacco: Never Alcohol Use Standard Drinks/Week Comments Yes 0 (1 standard drink = 0.6 oz pure alcoho l) beer and wine twice a month Sex Assigned at Date Recorded Not on file documented as of this encounter Progress Notes Lianne Sim RN - 08/18/2018 12:00 PM EDT Infusion Note Diagnosis:Prostate Cancer Treatment: Lupron Injection Lupron 22.5 mg injected in Left buttocks Patient instructed on side effects of Lupron. Patient states understanding of teaching. Patient aware to call clinic with any questions or concerns. Plan: Return to clinic as scheduled. 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 Is this drug being given as an outpatient? Yes documented in this encounter Care Teams Slat Grader Relationship Specialty Start Date End Date Celio Sanders MD PCP - General Internal Medicine 05/19/16 [address] [place] [address] documented as of this encounter
--- OUTSIDE RECORDS SUMMARY | 2022-01-25 12:38 | XMS_ITS | Encounter Summary ---
:1950 Author Organization [facility] [place] [address] Care Team Providers Name Role Phone Celio Sanders MD Primary Care Provider Encounter Details Date Type Department Care Team Description 09/09/2017 [facility] [address] [phone] Social History Tobacco Use Types Packs/Day Years Used Date Smoking Tobacco: Never Smokeless Tobacco: Never Alcohol Use Standard Drinks/Week Comments Yes 0 (1 standard drink = 0.6 oz pure alcoho l) beer and wine twice a month Sex Assigned at Date Recorded Not on file documented as of this encounter Miscellaneous Notes Telephone Encounter - Alta Muse RN - 09/09/2017 4:57 PM EDT Radiation Oncology Nurse Telephone Note [facility] [place], [place] ----- Message from Ronnie Vazquez MD sent at 09/09/2017 3:01 PM EDT ----- Regarding: RE: Pt looking for refill of Rx Sure - thank you ----- Message ----- From: Alta Muse RN Sent: 09/09/2017 2:52 PM To: Ronnie Vazquez MD, [facility] Rad Onc Nurse Subject: FW: Pt looking for refill of Rx Dr Vazquez, You wrote a script for him 1 yr ago for prn refills. Do you authorize another refill? If so, I'm happy to do this. Alta ----- Message ----- From: Harjeet Silvestre Sent: 09/09/2017 12:54 PM To: St Rad Onc Nurse Subject: Pt looking for refill of Rx Good Afternoon, Nain called and said that he needs a refill of his Flomax at [facility]. Thanks, Harjeet Phone call to pt that prescription for Flomax was sent to [facility] pharmacy. documented in this encounter Plan of Treatment Upcoming Encounters Date Type Specialty Care Team Description 02/04/2022 Office Visit Radiation Oncology Rama Ramos APRN [facility] ER RADIATION [place], [place] [address] (Wo rk) documented as of this encounter Visit Diagnoses Diagnosis Malignant neoplasm of prostate documented in this encounter Care Teams Photographic Enlarger Operator Relationship Specialty Start Date End Date Celio Sanders MD PCP - General Internal Medicine 05/19/16 [address] [place] [address] documented as of this encounter
--- OUTSIDE RECORDS SUMMARY | 2022-01-25 12:38 | XMS_ITS | Encounter Summary ---
:1950 Author Organization [facility] [address] Care Team Providers Name Role Phone Celio Sanders MD Primary Care Provider Encounter Details Date Type Department Care Team Description 01/16/2021 Office Visit Hematology/Oncology Bay Barillas MD [facility] [place] [address] Malignant neoplasm of prostate; at [facility] Swathi Uriostegui APRN [address] [place] [address] [place] [address] Vitamin D deficiency [address] [place] [phone] Social History Tobacco Use Types Packs/Day Years Used Date Smoking Tobacco: Never Smokeless Tobacco: Never Alcohol Use Standard Drinks/Week Comments Yes 0 (1 standard drink = 0.6 oz pure alcoho l) beer and wine twice a month Sex Assigned at Date Recorded Not on file documented as of this encounter Last Filed Vital Signs Vital Sign Reading Time Taken Comments Blood Pressure 164/77 01/16/2021 10:57 AM EST Pulse 93 01/16/2021 10:57 AM EST Temperature 36 ??C (96.8 ??F) 01/16/2021 10:57 AM EST Respiratory Rate 20 01/16/2021 10:57 AM EST Oxygen Saturation 98% 01/16/2021 10:57 AM EST Inhaled Oxygen Concentration - - Weight 81.6 kg (180 lb) 01/16/2021 10:57 AM EST Height 160 cm (5' 2.99) 01/16/2021 10:57 AM EST Body Mass Index 31.89 01/16/2021 10:57 AM EST documented in this encounter Progress Notes Remy Barillas MD - 01/16/2021 11:00 AM EST Subjective: Patient ID: Nain Mckeon is 70 y.o. Problem List: 1. Prostate cancer, cT2b, N1 [...] negative 9. Genetic testing 03/2018 - Result: [employer]'s Common Hereditary Cancers Panel showed that Nain carries a pathogenic variant (mutation) in BRCA2 specifically c.1929del(p.[id number]). This result is consistent with a diagnosis [...] BRCA2, BRIP1, CDH1, CDK4, CDKN2A (p14ARF), CDKN2A ([id number]), CHEK2,CTNNA1, DICER1, EPCAM (EPCAM: Deletion/duplication testing only [...] the AXIN2 and CTNNA1 genes, specifically c.1531A>T (p.Ssi860Lwo) and c.515A>T (p.Jtn285Uem), were detected. ? Interpretation: The most significant [...] with them. ?? Nain's sons live in [place] and [place]. They can go to the website of [...] the gene with no increased cancer risks. [employer] is continually collecting and analyzing their data, [...] and mailing address stay updated in the [facility] system, in order for us to reachhim [...] in the future, Dr. Ara Mary, a counselor at law at [facility] [place], is willing to discuss these screening options with Nain. Nain can schedule an appointment with her by reaching her secretary administrative assistant at [phone]. ?? Prostate Cancer Screening for Nain's sons ? Prostate cancer screening starting at age 40. If either of them is found to not have the BRCA2 mutation then they can consider screening beginning at age 50 which is the recommendation for men in [facility] ?? Skin cancer screening ?? Periodic skin exams ?? Colon cancer screening ?? Periodic colonoscopy screening as recommended by Nain's counselor at law. ?? HPI Nain Mckeon is seen in f/u of prostate cancer. On presentation today, he is accompanied by his Yaneth. He seems to be doing pretty well overall. He has had some mood problems but has started to swim every day for the past 6-8 weeks and that hashelped. The walk a lot also with their two dogs. His weight is a couple of pounds lower than it was in October. He appetite is good. No particular areas of pain. His urinary habits are stable. He has nocturia, maybe once a night, less than it had been the last time I saw him. Soc Hx: , lives in [place], [place]. He goes to [place] from December to June. 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 Psychiatric/Behavioral: Negative. Objective: Physical Exam Vitals reviewed. Constitutional: General: He is not in acute distress. Appearance: He is well-developed. HENT: Head: Normocephalic and atraumatic. Mouth/Throat: Pharynx: No oropharyngeal exudate. Eyes: General: No scleral icterus. Cardiovascular: Rate and Rhythm: Normal rate and regular rhythm. Pulmonary: Effort: Pulmonary effort is normal. No respiratory distress. Breath sounds: No wheezing. Chest: Breasts: Right: No supraclavicular adenopathy. Left: No supraclavicular adenopathy. Abdominal: General: There is no distension. Palpations: Abdomen is soft. There is no mass. Tenderness: There is no abdominal tenderness. There is no guarding. Lymphadenopathy: Cervical: No cervical adenopathy. Upper Body: Right upper body: No supraclavicular adenopathy. Left upper body: No supraclavicular adenopathy. Lower Body: No right inguinal adenopathy. No left inguinal adenopathy. Skin: General: Skin is warm and dry. Findings: No erythema. Neurological: Mental Status: He is alert and oriented to person, place, and time. Coordination: Coordination normal. Psychiatric: Behavior: Behavior normal. Labs: WBC/ANC - 6., Hgb/Hct - 13.2/40.7, Plts - 294,000. BUN/Cr - 21/1.0. Lytes and LFTs unremarkable Labs from 10/13/20: Vit D - 24.5; Testosterone -121 (240-950) PSA 01/12/21 0.10 0.06 06/23/20 0.03 03/27/20 0.02 12/17/19 <0.01 04/27/19 <0.01 01/31/19 <0.1 08/11/18 <0.1 11/15/17 <0.1 06/23/17 <0.1 04/2016 47.5 Assessment and Plan: Nain Mckeon is a 70 yo, seen in f/u of high risk prostate cancer. Diagnosed with prostate cancer in 2016 after presenting with hematuria, found to have an abnormal prostate gland on exam. TRUS prostate bx - adenocarcinoma in 5/12 cores, all on the right. [place] score was 8 in two of the biopsies and perineural invasion was present. PSA - 47. Staging bone was negative. CT abd/pelvis and MRI pelvis showed a suspicious internal iliac LN. He met with Urology, Radiation Oncology and Medical Oncology. The plan was for EBRT to include the pelvic LN with concurrent ADT times 3 years. He received the first Lupron injection in 05/2016. He received radiation from 08/24/16 to 10/24/16. The last Lupron injection was given in 04/2019. In 06/22, he was started on abiraterone at a reduced dose of 250 mg per day and prednisone. This was stopped in 08/22 due to an exacerbation of bipolar disease. The PSA was undetectable until 03/2020. It has risen since them to a current value of 0.1 on 01/12/21.This is worrisome although does not yet meet criteria for biochemical recurrence in men treated withradiation therapy +/- ADT. I will continue to follow him and will plan to see him in three months with a PSA. Labs in October showed Vit D deficiency. I asked him to start 1000 mg/day. Will recheck the level at the time of the next visit. Given his personal and family history, we made a referral to our Familial Cancer Program. In 03/2019 genetic testing was performed and showed a pathogenic mutation in BRCA2. The recommendations based onthis are summarized in the problem list above. Although patients with BRCA mutations may benefit from therapy with PARP inhibitors, there is no role in the absence of metastatic disease, as in the current setting (the indication is in castrate resistant metastatic disease). Genetic testing would be recommended for his sons and sister and he has discussed this with them. For him personally, it is recom mended that a mammogram be considered. Periodic skin exams and colonoscopy were also recommended. Because of the family history of pancreatic cancer, the option of discussing screening with Dr. Mary was mentioned by the Genetics team and he opted not do that at this time. He thinks it has been 10 years since the last colonoscopy but is going to check on that. Although he has high risk prostate cancer, he does not at this time have established recurrence or advanced disease and I think it is reasonable to go ahead with it. He will discuss with his PCP. He received the covid vaccine booster shot on 01/07/21. documented in this encounter Plan of Treatment Upcoming Encounters Date Type Specialty Care Team Description 02/04/2022 Office Visit Radiation Oncology Rama Ramos, [facility] RADIATION [place], [place] [address] (Wo rk) Scheduled Orders Name Type Priority Associated Diagnoses Order S chedule CBC (with Diff) Lab Routine Malignant neoplasm of Exp ected: 04/18/2021 prostate (Approximate), Expires: 2021 Comprehensive metabolic Lab Routine Malignant neoplas m of Expected: 04/18/2021 panel (non-fasting) prostate (Approxi mate), Expires: 2021 documented as of this encounter Visit Diagnoses Diagnosis Malignant neoplasm of prostate Vitamin D deficiency Unspecified vitamin D deficiency documented in this encounter Care Teams Dairy Technician Relationship Specialty Start Date End Date Celio Sanders MD PCP - General Internal Medicine 05/19/16 [address] [place] [address] documented as of this encounter
--- OUTSIDE RECORDS SUMMARY | 2022-01-25 12:38 | XMS_ITS | Encounter Summary ---
:1950 Author Organization [facility] [place] [address] Care Team Providers Name Role Phone Celio Sanders MD Primary Care Provider Encounter Details Date Type Department Care Team Description 07/27/2019 Office Visit Hematology/Oncology Bay Barillas MD [facility] [place] [address] Prostate cancer at [facility], Dayana Chacon APRN [address] [place] [address] DR MEDICAL ONCOLOGY [place], [place] [id number] metastatic to [address] [place] [address] intrapelvic [place] node [phone] Social History Tobacco Use [...] Sign Reading Time Taken Comments Blood Pressure 136/75 07/27/2019 2:27 PM EDT Pulse 88 07/27/2019 2:27 PM EDT Temperature 36.5 ??C (97.7 ??F) 07/27/2019 2:27 PM EDT Respiratory Rate 18 07/27/2019 2:27 PM EDT Oxygen Saturation 97% 07/27/2019 2:27 PM EDT Inhaled Oxygen Concentration - - Weight 76.1 kg (167 lb 12.8 oz) 07/27/2019 2:27 PM EDT Height 160 cm (5' 3) 07/27/2019 2:27 PM EDT Body Mass Index 29.72 07/27/2019 2:27 PM EDT documented in this encounter Progress Notes Dayana Tompkins, CURRICULUM FACILITATOR - 07/27/2019 2:30 PM EDT Subjective: Encounter Diagnosis Name Primary? Prostate cancer metastatic to intrapelvic lymph node Patient Active Problem List Diagnosis Code ??? Foreign travel Z78.9 ??? 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 C61,C77.5 ??? Bipolar II disorder F31.81 ??? Hypothyroidism E03.9 ??? Hyperlipidemia E78.5 ??? Hx of appendectomy Z90.49 ??? Hx laparoscopic cholecystectomy Z90.49 ??? Toxic encephalopathy G92 ??? Bipolar disorder, current episode manic without psychotic features, moderate F31.12 Patient ID: Nain Mckeon is a 68 [...] negative 9. Genetic testing 03/2018 - Result: [facility] Common Hereditary Cancers Panel showed that Nain carries a pathogenic variant (mutation) in BRCA2 specifically c.1929del(p.[id number]). This result is consistent with a diagnosis [...] BRCA2, BRIP1, CDH1, CDK4, CDKN2A (p14ARF), CDKN2A (s46ZLZ2u), CHEK2,CTNNA1, DICER1, EPCAM (EPCAM: Deletion/duplication testing only [...] the AXIN2 and CTNNA1 genes, specifically c.1531A>T (p.Nbn419Pzg) and c.515A>T (p.Lfa023Kzp), were detected. ? Interpretation: The most significant [...] with them. ?? Nain's sons live in [place] and [place]. They can go to the website of [...] the gene with no increased cancer risks. [employer] is continually collecting and analyzing their data, [...] and mailing address stay updated in the [facility] system, in order for us to reachhim [...] in the future, Dr. Ara Mary, a tractor mechanic helper at [facility] in [place], is willing to discuss these screening options with Nain. Nain can schedule an appointment with her by reaching her clerk secretary at [phone]. ?? Prostate Cancer Screening for Nain's sons ? Prostate cancer screening starting at age 40. If either of them is found to not have the BRCA2 mutation then they can consider screening beginning at age 50 which is the recommendation for [facility] in [facility] ?? Skin cancer screening ?? Periodic skin exams ?? Colon cancer screening ?? Periodic colonoscopy screening as recommended by Nain's tractor mechanic helper. ?? HPI Mr. Mckeon is seen in f/u of prostate cancer. This is his first visit with me. Mr. Mckeon returns to the [facility] for follow up of his prostate cancer. He seems to be doing well overall. His biggest concern is his weight loss. His weight has been up and down over the winter and is down today. He has been outside walking the dogs since the weather has gotten warmer. He seems to be a little worried about this. He also recently stopped Lupron injections which may have something to do with it. I reassured him we would check it again in 3 months and see if he is still loosing weight. His urinary habits are stable. Denies any hematuria or dysuria. He has no specific complaints today. He is sunburned on his arms and face. We talked about skin protection in the sun and that some of his medications will make him more likely to burn. Soc Hx: , lives in [place], [place]. He goes to [place] from December to June. 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 Also had alzheimer's disease Mother had colon cancer, diagnosed in her 50s Pat Aunt had breast cancer in her 80s Pat Aunt had uterine cancer Mat aunt had pancreatic cancer in her 30s or 40s They have 2 sons, both in good health Review of Systems Constitutional: Positive for unexpected weight change. Negative for activity change and fatigue. HENT: Negative. Respiratory: Negative. Cardiovascular: Negative. Gastrointestinal: Negative. Genitourinary: Positive for hematuria. Musculoskeletal: Negative. Skin: Negative. Neurological: Negative. [...] General: Skin is warm and dry. Findings: Erythema present. Comments: Sunburn on arms and face Neurological: Mental Status: He is alert and oriented to person, place, and time. Coordination: Coordination normal. Psychiatric: Behavior: Behavior normal. Labs: WBC/ANC - 5., Hgb/Hct - 14.5/42.9, Plts - 274,000. BUN/Cr - 17/1.11. Lytes and LFTs unremarkable PSA 07/20/19 <0.01 04/27/19 <0.01 01/31/19 <0.1 08/11/18 <0.1 11/15/17 <0.1 06/23/17 <0.1 04/2016 47.5 Genetics: Given his personal and family history, we [...] opted not do that at this time. Assessment and Plan: Mr. Mckeon is a 68 yo male seen in f/u of high risk prostate cancer. He was diagnosed with prostate cancer in 2017 after presenting with hematuria and found to have an abnormal prostate gland on exam. TRUS prostate bx showed adenocarcinoma in 5/12 cores, all on the right. [place] score was 8 in two of the [...] him in three months with a PSA. documented in this encounter Plan of Treatment Upcoming Encounters Date Type Specialty Care Team Description 02/04/2022 Office Visit Radiation Oncology Rama Ramos APRN [facility] RADIATION [place], [place] [address] (Wo rk) documented as of this encounter Visit Diagnoses Diagnosis 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 documented in this encounter Care Teams Mail Technician Relationship Specialty Start Date End Date Celio Sanders MD PCP - General Internal Medicine 05/19/16 [address] [place], [place] [address] documented as of this encounter
--- OUTSIDE RECORDS SUMMARY | 2022-01-25 12:38 | XMS_ITS | Encounter Summary ---
:1950 [place] [address] Care Team Providers Name Role Phone Celio Sanders MD Primary Care Provider Encounter Details Date Type Department Care Team Description 10/15/2021 TH Visit Hematology and Remy Barillas Malignant neoplasm of (TeleHealth) Oncology at [facility] MD [facility] [address] [place] [address] [place] [address] [phone] Social History Tobacco Use Types Packs/Day Years Used Date Smoking Tobacco: Never Smokeless Tobacco: Never Alcohol Use Standard Drinks/Week Comments Not Currently 0 (1 standard drink = 0.6 oz pure alcoho l) beer and wine twice a month Sex Assigned at Date Recorded Not on file documented as of this encounter Progress Notes Remy Barillas MD - 10/15/2021 1:00 PM EDT Subjective: Patient ID: Nain Mckeon is 71 y.o. Problem List: 1. Prostate cancer, cT2b, N1 A. Presented with hematuria TRUS prostate biopsies 04/2016 - Adenocarcinoma in 5/12 cores (all on right side), T2b, [place] 8 Darlyn-neural invasion present PSA - 47.5 [...] 6. S/p appendectomy 7. Psoriasis 8. Colonoscopy 05/2021 - Impression: ?- The examined portion of the ileum was normal. ?- One 3 mm polyp in the descending colon, removed with a cold snare.Resected and retrieved. ?- The sigmoid colon, transverse colon, ascending colon and cecum are??normal. ?- The distal rectum and anal verge are normal on retroflexion view. Path A - Descending colon polyp 3mm, excision: - ??Tubular adenoma. F/u recommended in 7 years. 9. Genetic testing 03/2018 - Result: [employer]'s Common Hereditary Cancers Panel showed that Nain carries a pathogenic variant (mutation) in BRCA2 specifically c.1929del(p.[id number]). This result is consistent with a diagnosis [...] BRCA2, BRIP1, CDH1, CDK4, CDKN2A (p14ARF), CDKN2A (e71DCJ7k), CHEK2,CTNNA1, DICER1, EPCAM (EPCAM: Deletion/duplication testing only [...] the AXIN2 and CTNNA1 genes, specifically c.1531A>T (p.Dcg071Yfk) and c.515A>T (p.Rre376Aie), were detected. ? Interpretation: The most significant [...] with them. ?? Nain's sons live in [place] and [place]. They can go to the website of [...] the gene with no increased cancer risks. [employer] is continually collecting and analyzing their data, [...] and mailing address stay updated in the [facility] system, in order for us to reachhim [...] in the future, Dr. Ara Mary, a car ferry master at [facility] in [place], is willing to discuss these screening options with Nain. Nain can schedule an appointment with her by reaching her city secretary at [phone]. ?? Prostate Cancer Screening for Nain's sons ? Prostate cancer screening starting at age 40. If either of them is found to not have the BRCA2 mutation then they can consider screening beginning at age 50 which is the recommendation for men in [facility] ?? Skin cancer screening ?? Periodic skin exams ?? Colon cancer screening ?? Periodic colonoscopy screening as recommended by Nain's car ferry master. ?? HPI Nain Mckeon is seen in f/u of prostate cancer. This is a telephone encounter. He says he feels great. His energy level is good and he is active. Aidans started to play pickle ball 3x/week and he walks his dog regularly. His appetite is good and he is eating healthier. He may have lost a little weight because of this. No areas of pain. His mood hasbeen good. He thinks the exercise has been helpful in that regard. His urinary habits are about the same. He has nocturia, 1-2x/night. Soc Hx: , lives in [place], [place]. He goes to [place] from December to June. 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 Psychiatric/Behavioral: Negative. Objective: Physical Exam Constitutional: Appearance: He is well-developed. Neurological: Mental Status: He is alert. Labs: WBC/ANC - 7.11/3499, Hgb/Hct - 13/38.6, Plts - 293,000. BUN/Cr - 28/1.3. Lytes and LFTs unremarkable Vit D - 38 Labs from 10/13/20: Vit D - 24.5; Testosterone -121 (240-950) PSA 10/05/21 0.55 01/12/21 0.10 10/13/20 0.06 06/23/20 0.03 03/27/20 0.02 12/17/19 <0.01 04/27/19 <0.01 01/31/19 <0.1 08/11/18 <0.1 11/15/17 <0.1 06/23/17 <0.1 04/2016 47.5 Assessment and Plan: Nain Mckeon is a 71 yo, seen in f/u of high risk [...] undetectable until 03/2020. It has risen since then to a current value of 0.55 on 10/09/21.For pts treated with androgen deprivation and radiation, this does not yet meet the criteria of biochemical recurrence (which would be PSA of 2 in his sanaz). He saw Dr. Curran on 09/17/21 and discussed options including observation, restaging with consideration of salvage therapy if no evidence of metastatic disease, and restarting androgen deprivation therapy. The thought was for continued observation. I think that is reasonable. Labs in October showed Vit D deficiency. I asked him to start 1000 mg/day. The value from 10/05 is 38. Will have him continue the same dose. I discussed his case with Dr. Vazquez. He and Julianna Ramos APRN are happy to continue to follow him. I will arrange for him to see Julianna in 3 months. I am happy to see him back if I can be of help. He also says that he would be happy to talk with Dr. Snyder again if needed. Of note: Given his personal and family history, we made a referral to our Familial Cancer Program. In 03/2019 genetic testing was performed and showed a pathogenic mutation in BRCA2. The recommendationsbased on this are summarized in the problem list above. Although patients with BRCA mutations may benefit from therapy with PARP inhibitors, there is no role in the absence of metastatic disease, as inthe current setting (the indication is in castrate resistant metastatic disease). Genetic testing would be recommended for his sons and sister and he has discussed this with them. For him personally, it is recommended that a mammogram be considered. Periodic skin exams and colonoscopy were also recommended. He had a colonoscopy done in 05/2021. One polyp was removed and was a tubular adenoma. F/u was recommended in 7 years. He is concerned about waiting this long. I will send a message to Dr. Bray. I provided care to the patient today via telephone call. The total time associated with this visit was 25 minutes. Addendum: I heard back from Dr. Bray. She feels that 7 years is an appropriate interval but is willing to do the colonoscopy in 5 years if Mr. Mckeon feels more comfortable with that. I spoke with Mr. Mckeon and he would like to do it in 5 years. I will defer referral for this to his PCP or other in volved provider as that time gets closer. documented in this encounter Plan of Treatment Upcoming Encounters Date Type Specialty Care Team Description 02/04/2022 Office Visit Radiation Oncology Rama Ramos, LOAN COLLECT[employer] [facility] RADIATION [place], [place] [address] (Wo rk) Scheduled Orders Name Type Priority Associated Diagnoses Order S chedule PSA (Ultrasensitive) Lab Routine Malignant neoplasm o f Expected: 01/15/2022 prostate (Approximate), Expires: 07/17/2022 documented as of this encounter Visit Diagnoses Diagnosis Malignant neoplasm of prostate documented in this encounter Care Teams Cd Reactor Operator Head Relationship Specialty Start Date End Date Celio Sanders MD PCP - General Internal Medicine 05/19/16 [address] [place] [address] documented as of this encounter
--- OUTSIDE RECORDS SUMMARY | 2022-01-25 12:38 | XMS_ITS | Encounter Summary ---
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; [place]cology at [facility] [place] [address] Social History Tobacco Use Types Packs/Day Years Used Date Smoking Tobacco: Never Smokeless Tobacco: Never Alcohol Use Standard Drinks/Week Comments Yes 0 (1 standard drink = 0.6 oz pure alcoho l) beer and wine twice a month Sex Assigned at Date Recorded Not on file documented as of this encounter Medications at Time of Discharge Medication Sig Dispensed Refills Start Date End Date FluZONE High-Dose INJECT AT PHARMACY 0 01/22/2019 2019-20, PF, 180 mcg/0.5 mL Syringe multivitamin (THERAGRAN) Take 1 tablet by 0 Tablet mouth nightly. lamoTRIgine (LAMICTAL) Take 1 tablet by 30 tablet 1 018 150 mg Tablet mouth daily. TURMERIC ROOT EXTRACT Take 1 capsule by 0 ORAL mouth 2 times daily. pravastatin (PRAVACHOL) Take 40 mg by mouth 0 40 mg Tablet daily. LEVOTHYROXINE SODIUM Take 75 mcg by mouth 0 (LEVOTHROID ORAL) daily. clonazePAM (KlonoPIN) 0.5 TAKE ONE TABLET BY 2 05/04/2019 mg Tablet MOUTH AT BEDTIME NEEDED benztropine (COGENTIN) 1 Take 2 mg by mouth 2 0 05/04/2019 mg Tablet times daily. ARIPiprazole (ABILIFY) 10 Take 15 mg by mouth 0 05/02/2019 mg Tablet daily. tamsulosin (FLOMAX) 0.4 Take 2 capsules by 60 tablet 08/201712/28/2019 mg CapsuleIndications: mouth nightly as Malignant neoplasm of needed. prostate clonazePAM (KLONOPIN) 2 Take 0.5 tablets by 60 tablet 0 01/201812/28/2019 mg Tablet mouth nightly as needed for Anxiety. documented as of this encounter Plan of Treatment Upcoming Encounters Date Type Specialty Care Team Description 02/04/2022 Office Visit Radiation Oncology Rama Ramos, WEAVER NEEDLE LO[facility] RAD[facility] [place] [address] (Wo rk) documented as of this encounter Procedures Procedure Name Priority Date/Time Associated Comments Diagnosis RESEARCH VENIPUNCTURE Routine 03/28/2019 2:42 PM Prostate canc er Results for this EST metastatic to procedure are in intrapelvic lymph the result s node section. HEMOGRAM Routine 03/28/2019 2:42 PM Malignant neoplasm Res ults for this EST of prostate procedure are i n the results section. DIFFERENTIAL, Routine 03/28/2019 2:42 PM Malignant neoplasm Re sults for this AUTOMATED EST of prostate procedure are i n the results section. HC CBC,PLT & AUTO DIFF Routine 03/28/2019 2:42 PM Malignant ne oplasm EST of prostate HC PROSTATE SPECIFIC Routine 03/28/2019 2:42 PM Malignant neop lasm Results for this ANTIGEN EST of prostate procedure are i n the results section. COMPREHENSIVE Routine 03/28/2019 2:42 PM Malignant neoplasm Re sults for this METABOLIC PANEL EST of prostate procedure ar e in (NON-FASTING) the results section. documented in this encounter Results Differential, Automated (03/28/2019 2:42 PM EST) P athologist Signature Neutrophils % 51.5 % [facility] Neutr Abs (ANC) 3.04 1.70 - [facility] 6.10 [facility] x10(3)/[facility] LABORATORY Lymphocytes % 34.3 % [facility] Lymphocytes Abs 2.0 0.9 - 3.[address] [facility] x10(3)/[facility] LABORATORY Monocytes % 9.3 % [facility] Monocyte Abs 0.6 0.3 - 0.[address] [facility] x10(3)/[facility] LABORATORY Eosinophils % 3.9 % [facility] Eosinophils Abs 0.2 0.0 - 0.[address] [facility] x10(3)/[facility] LABORATORY Basophils % 0.7 % [facility] Basophils Abs 0.0 0.0 - 0.[address] [facility] x10(3)/[facility] LABORATORY Immature Gran % 0.30 % [facility] Comment: Immature granulocytes(IG's)percentage an d absolute count will include metamyelocytes, myelocytes, and promyelo cytes. Blood smears from CBCs yielding IG's will be scanned manually for concor dance. If this scan disagrees with the automated IG or if promyelocytes are not ed, a manual differential will be performed. Renate Gran Abs 0.02 0.00 - 0.04 x10(3)/[facility] Specimen Anatomical Collection Method Collection Time Receive d Time (Source) Location / / Volume Laterality Blood specimen 03/28/2019 2:42 PM 020 2:55 (specimen) EST PM EST Resulting Agency Comment Spec In Lab Remy Barillas MD HEMATOLOGY ORDERABLES Performing Organization Address City/State/[place] [address] (ABNORMAL) Hemogram (03/28/2019 2:42 PM EST) Analysis Performed At Patho logist Time Signature WBC 5.9 4.0 - 9.[address] [facility] x10(3)/[facility] LABORATORY RBC 4.09 (L) 4.58 - [facility] 5.54 [facility] x10(6)/[facility] LABORATORY Hemoglobin 13.0 (L) 13.7 - [facility] gm/dL [facility] Hematocrit 38.7 (L) 40.5 - [facility] 48.5 % [facility] MCV 94.6 (H) 82.9 - [facility] [facility] LABORATORY MCH 31.8 27.5 - [facility] 32.1 pg [facility] MCHC 33.6 32.0 - [facility] 35.7 gm/dL [facility] Platelets 226 145 - [address] [facility] x10(3)/[facility] LABORATORY RDWSD 43.9 36.0 - [facility] [address] [facility] LABORATORY RDWCV 12.7 11.4 - [facility] 13.8 % [facility] MPV 9.3 7.6 - 12.9 [facility] LABORATORY nRBC % Auto 0.0 % [facility] nRBC Abs Auto 0.000 0.000 - [facility] 0.000 [facility] x10(3)/[facility] LABORATORY Specimen Anatomical Collection Method Collection Time Receive d Time (Source) Location / / Volume Laterality Blood specimen 03/28/2019 2:42 PM 020 2:55 (specimen) EST PM EST Resulting Agency Comment Spec In Lab Remy Barillas MD HEMATOLOGY ORDERABLES Performing Organization Address City/State/[place] [address] Comprehensive metabolic panel (non-fasting) (03/28/2019 2:42 PM EST) P athologist Signature Glucose Lvl 119 65 - [address] [facility] mg/dL [facility] Comment: Diabetes: >=200 mg/dL plus symp toms BUN 19 10 - 20 mg/dL [facility] Creatinine 1.00 0.80 - 1.50 mg/dL [facility] Sodium 143 135 - 145 mmol/L [facility] Potassium 4.1 3.5 - 5.0 mmol/L [facility] Comment: Please note: ??Patients with WBC >100,00 0 may have falsely elevated Potassium levels. ??For accurate Potassium quantif ication in these patients send serum separator tube (gold top) for subsequent determinations. ??Contact the Clinical Chemistry Laboratory if there are any qu estions. Chloride 105 98 - 107 mmol/L [facility] CO2 29 22 - 31 mmol/L [facility] Anion Gap 9 5 - 15 mmol/L [facility] Calcium 9.0 8.5 - 10.5 mg/dL [facility] Total Protein 7.2 6.1 - 8.0 gm/dL [facility] Albumin 4.4 3.2 - 5.2 gm/dL [facility] AST 22 0 - 39 unit/L [facility] ALT 26 0 - 55 unit/L [facility] Alk Phos 75 40 - 130 unit/L [facility] Total Bilirubin 0.2 0.2 - 1.3 mg/dL [facility] Estimated GFR 76 >=60 mL/min/1.73 m?? [facility] Comment: The eGFR was calculated using the CKD-EP I equation. As with all creatinine based estimates of kidney function, eGFR values calculated with the CKD-EPI equation are not accurate in patients wi th acute kidney failure, extremes of body mass or the acutely ill. [email or web address] eGFR 88 >=60 mL/min/1.73 m?? [facility] Comment: The eGFR was calculated using the CKD-EP I equation. As with all creatinine based estimates of kidney function, eGFR values calculated with the CKD-EPI equation are not accurate in patients wi th acute kidney failure, extremes of body mass or the acutely ill. [email or web address] Specimen Anatomical Collection Method Collection Time Receive d Time (Source) Location / / Volume Laterality Blood specimen 03/28/2019 2:42 PM 020 2:55 (specimen) EST PM EST Resulting Agency Comment Spec In Lab Remy Barillas MD CHEMISTRY ORDERABLES Performing Organization Address City/State/[place] [address] PSA (Ultrasensitive) (03/28/2019 2:42 PM EST) athologist Signature PSA Total <0.01 0.00 - [facility] (Ultrasensitiv 4.00 ng/mL [facility] LABORATORY Specimen Anatomical Collection Method Collection Time Receive d Time (Source) Location / / Volume Laterality Blood specimen 03/28/2019 2:42 PM 020 2:55 (specimen) EST PM EST Resulting Agency Comment Spec In Lab Remy Barillas MD CHEMISTRY ORDERABLES Performing Organization Address City/State/ZIP Code Phon e Number [address] Research Venipuncture (03/28/2019 2:42 PM EST) Analysis Performed At Patho logist Time Signature Research Drawn [facility] Venipuncture [facility] Specimen Anatomical Collection Method Collection Time Receive d Time (Source) Location / / Volume Laterality Blood specimen 03/28/2019 2:42 PM 020 3:44 (specimen) EST PM EST Resulting Agency Comment Spec In Lab Tre Walker MD CHEMISTRY ORDERABLES Performing Organization Address City/[facility]/ZIP Code Phon e Number [address] documented in this encounter Visit Diagnoses Diagnosis 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 Malignant neoplasm of prostate documented in this encounter Care Teams Tumblers Supervisor Relationship Specialty Start Date End Date Celio Sanders MD PCP - General Internal Medicine 05/19/16 [address] [place] [address] documented as of this encounter
--- OUTSIDE RECORDS SUMMARY | 2022-01-25 12:38 | XMS_ITS | Encounter Summary ---
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 Dayana Tompkins APRN [facility] Dermatology [address] [place] [address] [place] [address] [place], [place] [address] Referral ID Status Reason Start Date Expiration Date Visits V isits Requested Authorized [id number] Closed Consult, 07/20/2021 07/20/2022 1 1 Test & Treat Encounter Details Date Type Department Care Team Description 10/06/2021 Office Visit Dermatology at [facility] Emilio Rinaldi MD Inflamed seborrheic keratosis; [facility] SK (seborrheic keratosis); [address], [address]; [place] [address] HEATER Gee angioma; [phone] RD-DERMATOLOGY Multiple benign nevi [place], [place] [address] Social History Tobacco Use Types Packs/Day Years Used Date Smoking Tobacco: Never Smokeless Tobacco: Never Alcohol Use Standard Drinks/Week Comments Not Currently 0 (1 standard drink = 0.6 oz pure alcoho l) beer and wine twice a month Sex Assigned at Date Recorded Not on file documented as of this encounter Progress Notes Ernst Rinaldi MD - 10/06/2021 3:00 PM EDT Images from the original note were not included. DEPARTMENT OF DERMATOLOGY Medical Dermatology Clinic Provider: Ernst Rinaldi MD Patient's preferred name Nain Preferred contact method for results [x]Phone []myD-H []Letter Detailed phone message OK? Y Are there any other people with whom we may discuss your care? , Sharon Past Medical History Date, location, treatment Melanoma N Dysplastic nevi N SCC N BCC N AKs N UV Exposure & Protection + history of blistering sunburn Other relevant past medical history Psoriasis Cancer Thyroid disease Depression Family History Details Melanoma N NMSC N Other relevant family history Psoriasis Prostate cancer Social History Occupation: Retired Hobbies: Other: PRE-PROCEDURE SCREENING Details Allergy to lidocaine, epinephrine, Dermabond, chlorhexidine, or adhesives N Bleeding disorder or blood thinners N Pacemaker, defibrillator, deep brain stimulator, cochlear implant N History of Present Illness: Nain Mckeon is a 71 y.o. Patient is new and referred to the clinic by Dayana Tompkins APRN for a full skin cancer screening with the following concerns -Patient reports a lesion on the left forehead has been present for a year that is asymptomatic. No prior bx or tx. -Patient reports a big mole on his back that his states is growing outward. Asymptomatic. No prior bx or tx. -He also mentions he has psoriasis that he previously treated with topicals but is currently not using anything. Medications: Reviewed in eD-H Allergies: Reviewed in eD-H Skin Examination: Full skin examination: Patient asked to undress to their comfort level. Verbalized that the provider's preference is that patient remove all clothing and that the provider will not examine areas patient elects to keep covered. Examination of the scalp, hair, head, face, ears, neck, chest, axillae, abdomen, back, buttocks, and upper and lower extremities was normal with the exception of the findings below. Genitalia not examined. Assessment/Plan #. Inflamed Seborrheic Keratoses - Inflamed, stuck on, waxy papule on the left forehead x1. - Discussed benign nature of lesion(s) and provided reassurance. - Due to irritation present on today's exam and history of symptoms, discussed removal with cryotherapy. - Patient elects to proceed with cryotherapy today. Procedure: Destruction of lesion(s) with cryotherapy (LN2). Location(s): As noted above Number: 1 Discussed procedure and expectations including risks and benefits. Verbal consent obtained. Treated with LN2. There were no complications; Patient tolerated the procedure well. Post-procedure expectations and wound care were reviewed. #. Seborrheic Keratoses - Stuck on, waxy papules on the trunk and extremities. - Discussed benign nature of lesions and provided reassurance. No treatment necessary at this time. #. Gee Angiomas - Multiple bright red, well-demarcated papules on the trunk and extremities. - Discussed benign nature of lesions and provided reassurance. No treatment necessary at this time. #. Benign Nevi - Scattered medium brown, evenly pigmented macules and papules on the trunk and extremities with reassuring pigment pattern on dermoscopy. - Discussed benign nature of lesions and provided reassurance. Will continue to monitor. #. Lentigines - Scattered light-brown, evenly pigmented, well-demarcated macules on sun-exposed areas of the trunk and extremities. - No worrisome pigmented lesions. Discussed benign nature of lesions and provided reassurance. Will continue to monitor. Other: ??? Sun protection discussed (protective clothing and SPF30+ broad-spectrum sunscreen) RTC: 1 year for FSE []Note routed to racing secretary [x]Recall placed in scheduling system []Appointment scheduled at checkout Scribe attestation: Yordy Wesley MA has performed the documentation for this encounter in the presence of and acting as a scribe for Ernst Rinaldi MD. I performed the above scribed service and agree with the accuracy of the documentation in this encounter. Reviewed and signed by: Ernst Rinaldi MD [facility] Patient seen and evaluated with staff chief console operator: Kayla Ely MD Dermatology [facility] Kayla Ely MD - 10/06/2021 3:00 PM EDT I directly supervised Dr. Rinaldi during this office visit. Dr. Rinaldi presented the history and physical exam to me. I, then, saw and examined this patient with Dr. Rinaldi. We reviewed the history and pertinent details and I confirmed the physical findings. I agree with the details of the history and physical exam as documented in Dr. Rinaldi's note. KAYLA ELY MD Staff Physician documented in this encounter Plan of Treatment Upcoming Encounters Date Type Specialty Care Team Description 02/04/2022 Office Visit Radiation Oncology Rama Ramos, REHABILITATION ASSISTANT [facility] RADIATION ONCK[place]NA [place], [place] [address] (Wo rk) Scheduled Referrals Name Type Priority Associated Diagnoses Order S chedule Referral to Outpatient Referral Routine BRCA gene mutation Or dered: Dermatology positive 07/20/2021 Prostate cancer metastatic to intrapelvic lymph node documented as of this encounter Visit Diagnoses Diagnosis Inflamed seborrheic keratosis SK (seborrheic keratosis) Other seborrheic keratosis Lentigines Other dyschromia Gee angioma Nevus, non-neoplastic Multiple benign nevi Benign neoplasm of skin, site unspecifie d documented in this encounter Care Teams Armored Machine Operator Relationship Specialty Start Date End Date Celio Sanders MD PCP - General Internal Medicine 05/19/16 [address] [place] [address] documented as of this encounter
--- OUTSIDE RECORDS SUMMARY | 2022-01-25 12:38 | XMS_ITS | Encounter Summary ---
:1950 Author Organization [facility] Address [facility] [place] [address] Care Team Providers Name Role Phone Celio Sanders MD Primary Care Provider Reason for Visit Reason Onset Date Comments Results 04/04/2019 BRCA2 mutation Encounter Details Date Type Department Care Team Description 04/04/2019 Telephone Hematology and [facility] L Results (BRCA2 Oncology at [facility] mutation) [facility] [address] HEMATOLOGY/[place] [address] DEPT. 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 He also hadvariants of uncertain significance in the AXIN2 and CTNNA1 genes. Men with a BRCA2 mutation have about a 20% risk for developing prostate cancer so this likely is related to Nain's diagnosis. This finding may also have treatment implications for him. Shelbie, the [facility] press secretary will call Nain tomorrow afternoon (when his returns from being away) to schedule a follow-up appointment with myself and Binu Walker MD to discuss the implications of this finding for Nain and his family. I have scanned a copy of the report into the medical record. documented in this encounter Plan of Treatment Upcoming Encounters Date Type Specialty Care Team Description 02/04/2022 Office Visit Radiation Oncology Rama Ramos, DELIVERY HELPER [facility] RADIATION ONCKENNA [place], [place] [address] (Wo rk) documented as of this encounter Visit Diagnoses Not on filedocumented in this encounter Care Teams Driver Recruiter Relationship Specialty Start Date End Date Celio Sadners MD PCP - General Internal Medicine 05/19/16 [address] [place] [address] documented as of this encounter
--- OUTSIDE RECORDS SUMMARY | 2022-01-25 12:38 | XMS_ITS | Encounter Summary ---
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 Malignant neoplasm of prostate; [address] BRCA2 positive [place], [place] HEMATOLOGY ONCO LOGY [id number] [place], [place] [phone] [id number] (Wo rk) Social History Tobacco Use Types [...] Sign Reading Time Taken Comments Blood Pressure 138/79 06/30/2020 1:26 PM EDT Pulse 80 06/30/2020 1:26 PM EDT Temperature 35.9 ??C (96.7 ??F) 06/30/2020 1:26 PM EDT Respiratory Rate 20 06/30/2020 1:26 PM EDT Oxygen Saturation 97% 06/30/2020 1:26 PM EDT Inhaled Oxygen Concentration - - Weight 82.4 kg (181 lb 9.6 oz) 06/30/2020 1:26 PM EDT Height 160 cm (5' 2.99) 06/30/2020 1:26 PM EDT Body Mass Index 32.18 06/30/2020 1:26 PM EDT documented in this encounter Progress Notes Swathi Uriostegui, DUST BOX WORKER - 06/30/2020 1:30 PM EDT Subjective: Patient ID: Nain [...] 5/12 cores (all on right side), T2b, Billings 8 Darlyn-neural invasion present PSA - 47.5 [...] a pathogenic variant (mutation) in BRCA2 specifically c.1929del(p.[id number]). 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 At the time of the appointment,??Nain??was provided with a printed copy of his??test result and an informational packet addressing a positive test result. ?? The following??47??genes were evaluated for sequence changes and exonic deletions/duplications: APC,RUMA, AXIN2, BARD1, BMPR1A, BRCA1, BRCA2, BRIP1, CDH1, CDK4, CDKN2A (p14ARF), CDKN2A (q03GWN1t), CHEK2, CTNNA1, DICER1, EPCAM (EPCAM: Deletion/duplication testing [...] in the AXIN2 and CTNNA1??genes, specifically c.1531A>T (p.Ndk094Byh) and c.515A>T (p.Vol497Eeo), were??detected. ? Interpretation: The most significant consequences of carrying a pathogenic variant in BRCA2 are increased risks for breast cancer and ovarian cancer??in women.??For men, the most significant consequence is for prostate cancer so this finding is felt to be related to Nancies cancer.??Other cancers associated with TXAF8tok??breast cancer in men,??pancreatic, and melanoma. ??It is [...] Nain's sons live in [place] and [place]. ??They can go to the website of [...] and mailing address stay updated in the [facility] system, in order for us to [...] possibility in the future,??Dr. Ara Mary, a clinical educator at [facility] in [place], is willing to discuss these screening options with Nain.??Nain??can schedule an appointment with her by reaching her departmental secretary at [phone]. ?? Prostate Cancer Screening for Nain's sons [...] ?? Periodic colonoscopy screening as recommended by??Nain's clinical educator. ?. ??SUMMARY ASSESSMENT/PLAN 07/24 He was diagnosed with prostate cancer in 2017 after presenting with hematuria and found to have an abnormal prostate gland on exam. TRUS prostate bx showed adenocarcinoma in 5/12 cores, all on the right. Billings score was 8 in two of the [...] PSA. ? Soc Hx: , lives in [place], [place]. He goes to [place] from December to June. 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 Fam Hx: Father with prostate cancer diagnosed in his 80s. Also had alzheimer's disease Mother had colon cancer, diagnosed in her 50s Pat Aunt had breast cancer in her 80s Pat Aunt had uterine cancer Mat aunt had pancreatic cancer in her 30s or 40s ?? They have 2 sons, both in good health ?? INTERVAL HPI 06/30/20 Nain Mckeon is a 69 male diagnosed 05/21 with prostate cancer with perineural invasion and suspicious internal iliac LN. (Refer to history and plan as summarized above.) Nain returns to the [facility] oncology clinic in [facility] today for follow up surveillance visit with PSA review. His last Lupron injection was 04/26. Nain says he feels really good. His energy is good and he continues to take long walks daily with his dogs. He feels his depression recovery is continuing to go well. He also works out regularly at a fitness center and is looking forward to participating in recreational basketball again. He is eating well and denies bowel issues. He has had some manic issues, but also feels those are under control. He denies shortness of breath, new cough or chest pain. He has not noticed any extremity swelling. Nain reports no new muscle or bony aches or pains. He denies any voiding difficulties. No blood noticed in urine. He is anxious about his PSA today. He has not noticed any lumps or masses in his breasts. Nain is fully vaccinated against COVID. No Known Allergies Current Medications ??? clonazePAM (KlonoPIN) 0.5 mg Tablet ??? clonazePAM (KlonoPIN) 1 mg Tablet ??? melatonin 5 mg Tablet ??? citalopram (CeleXA) 10 mg Tablet ??? mirtazapine (REMERON) 30 mg Tablet ??? lamoTRIgine (LAMICTAL) 150 mg Tablet ??? TURMERIC ROOT EXTRACT ORAL ??? pravastatin (PRAVACHOL) 40 mg Tablet ??? LEVOTHYROXINE SODIUM (LEVOTHROID ORAL) ??? FluZONE High-Dose 2019-20, PF, 180 mcg/0.5 mL Syringe ??? multivitamin (THERAGRAN) Tablet Social History Tobacco Use ??? Smoking status: [...] Negative. Neurological: Negative. Hematological: Negative. Psychiatric/Behavioral: Negative. Major depressive episode with hospitalization fall 2019. Feels recovered with some manic issues. Objective: Physical Exam Constitutional: General: He is not in acute distress. Appearance: Normal appearance. Eyes: Extraocular Movements: Extraocular movements intact. Cardiovascular: Rate and Rhythm: Normal rate and regular rhythm. Heart sounds: Normal heart sounds. Pulmonary: Breath sounds: Normal breath sounds. No wheezing or rales. Abdominal: Palpations: Abdomen is soft. Tenderness: There is no abdominal tenderness. Musculoskeletal: General: Normal range of motion. Lymphadenopathy: Cervical: No [...] normal. Comments: Good affect, maintains eye contact. Breast exam - (due to BRCA 2 positive) Left breast and axilla without lumps or masses. No skin changes. No nipple discharge. Right breast and axilla without lumps or masses. No skin changes. No nipple discharge. BP 138/79 Pulse 80 Temp 35.9 ??C (96.7 ??F) (Temporal) Resp 20 Ht 160 cm (5' 2.99) Wt 82.4 kg (181 lb 9.6 oz) SpO2 97% BMI 32.18 kg/m?? LABS 03/27/20 WBC 6.71; ANC 3.56; H/H 12.5/38.2; PLT 269; BUN 15; CREAT 0.98; CA++ 8.5; BILI 0.2; liver enzymes normal. LABS 06/23/20 WBC 6.97; ANC 3.49; H/H 13.5/ 41.3; PLT 276; BUN 17; CREAT 1.1; BILI 0.3; ALP 77; AST 26; ALT 43; CA++ 8.8 PSA, Ultrasensitive 06/23/20 - <0.03 03/27/20 - <0.02 12/17/19 - <0.01 Assessment: Nain Mckeon is a 69 male diagnosed 05/21 with prostate cancer with perineural invasion and suspicious internal iliac LN. Nain returns to the [facility] oncology clinic in [facility] today for follow up surveillance visit with PSA review. He has no physical complaints and is feeling mentally well following a major depressive episode thatoccurred fall 2019. I reviewed CBC, CMP and ultrasensitive PSA with Nain today. PSA remains clinically negative. Plan RTC in 3 months for visit and PSA. Encourage continued daily walking and other exercise along with healthy diet. Call sooner if any questions or concerns. documented in this encounter Plan of Treatment Upcoming Encounters Date Type Specialty Care Team Description 02/04/2022 Office Visit Radiation Oncology Rama Ramos APRN [facility] RADIATION [place], [place] [address] (Wo rk) documented as of this encounter Visit Diagnoses Diagnosis 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 Malignant neoplasm of prostate BRCA2 positive Genetic susceptibility to malignant neop lasm of breast documented in this encounter Care Teams Miller Head Relationship Specialty Start Date End Date Celio Sanders MD PCP - General Internal Medicine 05/19/16 [address] [place] [address] documented as of this encounter
--- OUTSIDE RECORDS SUMMARY | 2022-01-25 12:39 | XMS_ITS | Encounter Summary ---
:1950 Author Organization [facility] [place] [address] Care Team Providers Name Role Phone Celio Sanders MD Primary Care Provider Encounter Details Date Type Department Care Team Description 10/18/2016 [facility] [address] [phone] Social History Tobacco Use Types Packs/Day Years Used Date Smoking Tobacco: Never Smokeless Tobacco: Never Alcohol Use Standard Drinks/Week Comments Yes 0 (1 standard drink = 0.6 oz pure beer o r wine a couple times a alcohol) month, if that Sex Assigned at Date Recorded Not on file documented as of this encounter Miscellaneous Notes Telephone Encounter - Alta Muse RN - 10/18/2016 3:14 PM EDT Radiation Oncology Nurse Telephone Note [facility] [place], [place] Patient calls c/o mild nausea. He has not vomited and he is still able to eat. He denies heart burn. His last watery stool was about a day ago. He is having soft , more frequent stools and is eating a bland low fiber diet. He states he feels some soreness internally inside the anus. He denies pain to skin surrounding anus or any blood in his stools. He is currently taking Advil 2 tabs once a day and he will try taking it twice a day to see if that helps with the rectal discomfort. Dr Vazquez notified of above. He ordered zofran 8mg ODT Patient informed of this. He was instructed to contact clinic if he develops rectal bleeding and or more sever pain or if the zofran does not help his nausea. Patient verbalized understanding of these instructions. documented in this encounter Plan of Treatment Upcoming Encounters Date Type Specialty Care Team Description 02/04/2022 Office Visit Radiation Oncology Rama Ramos APRN [facility] RADIATION [place], [place] [address] (Wo rk) documented as of this encounter Visit Diagnoses Diagnosis Malignant neoplasm of prostate documented in this encounter Care Teams Sanitary Plumber Relationship Specialty Start Date End Date Celio Sanders MD PCP - General Internal Medicine 05/19/16 [address] [place] [address] documented as of this encounter
--- OUTSIDE RECORDS SUMMARY | 2022-01-25 12:39 | XMS_ITS | Encounter Summary ---
:1950 Author Organization [facility] [address] Care Team Providers Name Role Phone Celio Sanders MD Primary Care Provider Encounter Details Date Type Department Care Team Description 10/14/2016 Office Visit Radiation Oncology at [facility] C ancer of prostate [facility] with high recurrence [address] risk (stage T3a or [place], [place] RADIATION ONCOL OGY Branch 8-10 or PSA > [id number] [place], [place] 20) [phone] (Wo rk) Social History Tobacco Use Types [...] Sign Reading Time Taken Comments Blood Pressure 152/86 10/14/2016 8:00 AM EDT Pulse 76 10/14/2016 8:00 AM EDT Temperature 37 ??C (98.6 ??F) 10/14/2016 8:00 AM EDT Respiratory Rate 18 10/14/2016 8:00 AM EDT Oxygen Saturation 100% 10/14/2016 8:00 AM EDT Inhaled Oxygen Concentration - - Weight 83.6 kg (184 lb 3.2 oz) 10/14/2016 8:00 AM EDT Height - - Body Mass Index 32.07 09/03/2016 7:58 AM EDT documented in this encounter Progress Notes Ronnie Vazquez MD - 10/14/2016 8:30 AM EDT Images from the original note were not included. RADIATION ONCOLOGY - Weekly On Treatment Visit Note 10/14/16 Ronnie Vazquez MD Radiation Oncology [facility] [phone] (paging utility tractor operator) PATIENT IDENTIFICATION NAME: Nain Mckeon DATE OF : 1950 ONCOLOGIC SUMMARY: Nain Mckeon is a 66 y.o. 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 CONCURRENT THERAPY: LT-ADT Lupron #1: 05/31/16 (22.5mg) Lupron #2: 08/26/16 (22.5mg) INTENT OF THERAPY: Definitive (Curative) RADIATION TREATMENT DETAILS: Initial Treatment Site Pelvis Prescribed Dose 45 Gy in 25 fractions Boost Treatment Site 1 Entire SV Prescribed Dose 70.2 Gy in 39 fractions Boost Treatment Site 2 Prostate + right obturator LN + Prox SV Prescribed Dose 79.2 Gy in 44 fractions Current Dose: 64.8 Gy in 36 fractions INTERVAL HISTORY Subjective: General - Overall doing well. - Flomax 0.4 mg bid keeping nocturia at 2x / night (up from 1x/nt at baseline). Denies other LUTSor dysuria. GI - No diarrhea or bleeding. Pain: Pain score today is 0/10. Medications 10/14/16 0850 Medication Sig Taking? tamsulosin (FLOMAX) 0.4 mg Capsule, Sust. Release 24 hr Take 2 capsules by mouth nightly. Yes calcium-vitamin D 500 mg(1,250mg) -200 unit Tablet Take 1 tablet by mouth daily. Indications: Prevention of Vitamin D Deficiency Yes mirtazapine (REMERON) 30 mg Tablet Take 30 mg by mouth nightly. Yes clonazePAM (KLONOPIN) 2 mg Tablet Take 2 mg by mouth nightly. Yes pravastatin (PRAVACHOL) 40 mg Tablet Take 40 mg by mouth daily. Yes lamoTRIgine (LAMICTAL) 150 mg Tablet Take 150 mg by mouth daily. Yes LEVOTHYROXINE SODIUM (LEVOTHROID ORAL) Take 75 mcg by mouth daily. Yes loperamide (IMODIUM A-D) 2 mg Tablet Take by mouth 4 times daily as needed for Diarrhea. Maximum 16 mg in 24 hours Imaging / Laboratory Studies: I have personally reviewed this patient's interval portal imaging to confirm accurate positioning and alignment which matches the patient's original approved treatment planning images. No other interval studies for review. EXAM: BP 152/86 Pulse 76 Temp 37 ??C (98.6 ??F) Resp 18 Wt 83.6 kg (184 lb 3.2 oz) SpO2 100% BMI 32.07 kg/m2 Constitutional: he appears well-developed and well-nourished. No distress. Performance Status: KPS Score ECOG Grade Definition X 90-100 0 Fully active, able to carry on all pre-disease performance without restriction 70-80 1 Restricted in physically strenuous activity but ambulatory and able to carry out work of a light or sedentary nature, e.g., light house work, office work 50-60 2 Ambulatory and capable of all selfcare but unable to carry out any work activities; up and about more than 50% of waking hours 30-40 3 Capable of only limited selfcare; confined to bed or chair more than 50% of waking hours 10-20 4 Completely disabled; cannot carry on any selfcare; totally confined to bed or chair IMPRESSION/PLAN Impression: Tolerating treatment well so far. Plan: Continue radiation therapy as planned. documented in this encounter Plan of Treatment Upcoming Encounters Date Type Specialty Care Team Description 02/04/2022 Office Visit Radiation Oncology Rama Ramos APRN [facility] RADIATION [place], [place] [address] (Wo rk) documented as of this encounter Visit Diagnoses Diagnosis Cancer of prostate with high recurrence risk (stage T3a or Branch 8-10 or PSA > 20) Malignant neoplasm of prostate documented in this encounter Care Teams Eeg Technologist Relationship Specialty Start Date End Date Celio Sanders MD PCP - General Internal Medicine 05/19/16 [address] [place] [address] (work) documented as of this encounter
--- OUTSIDE RECORDS SUMMARY | 2022-01-25 12:39 | XMS_ITS | Encounter Summary ---
:1950 Author Organization [facility] [place] [address] Care Team Providers Name Role Phone Celio Sanders MD Primary Care Provider Encounter Details Date Type Department Care Team Description 07/15/2016 Telephone Radiation Oncology a t [facility] Harjeet Silvestre [address] [place] [phone] Social History Tobacco Use Types Packs/Day Years Used Date Smoking Tobacco: Never Smokeless Tobacco: Never Alcohol Use Standard Drinks/Week Comments Yes 0 (1 standard drink = 0.6 oz pure beer o r wine a couple times a month alcohol) Sex Assigned at Date Recorded Not on file documented as of this encounter Miscellaneous Notes Telephone Encounter - Harjeet Silvestre - 07/15/2016 4:05 PM EDT Left a message for Nain asking him to give me a call back. I plan to go over the MRI safety questions with him when he returns my call. documented in this encounter Plan of Treatment Upcoming Encounters Date Type Specialty Care Team Description 02/04/2022 Office Visit Radiation Oncology Rama Ramos APRN [facility] RADIATION [place], [place] [address] (Wo rk) documented as of this encounter Visit Diagnoses Not on filedocumented in this encounter Care Teams Stummel Selector Relationship Specialty Start Date End Date Celio Sanders MD PCP - General Internal Medicine 05/19/16 [address] [place] [address] documented as of this encounter
--- OUTSIDE RECORDS SUMMARY | 2022-01-25 12:39 | XMS_ITS | Encounter Summary ---
:1950 Author Organization [facility] [address] Care Team Providers Name Role Phone Celio Sanders MD Primary Care Provider Encounter Details Date Type Department Care Team Description 08/03/2016 Procedure visit Radiation Oncology Matthew Pelaez N [place]oplasm of prostate [place] [facility] [place] lymph node [facility] MEDICAL staging c ategory pN1: [facility] metastasis in [place], [place] RADIATION regional nodes [id number] ONCOLOGY [phone] [place], [place] [address] Social History Tobacco Use Types Packs/Day Years Used Date Smoking Tobacco: Never Smokeless Tobacco: Never Alcohol Use Standard Drinks/Week Comments Yes 0 (1 standard drink = 0.6 oz pure beer o r wine a couple times a alcohol) month, if that Sex Assigned at Date Recorded Not on file documented as of this encounter Progress Notes Matthew Pelaez MD - 08/03/2016 1:05 PM EDT Please see inpatient notes. documented in this encounter Plan of Treatment Upcoming Encounters Date Type Specialty Care Team Description 02/04/2022 Office Visit Radiation Oncology Rama Ramos APRN [facility] RADIATION ONCOLO [place], [place] [address] (Wo rk) documented as of this encounter Visit Diagnoses Diagnosis 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 documented in this encounter Care Teams Lawyers Relationship Specialty Start Date End Date Celio Sanders MD PCP - General Internal Medicine 05/19/16 [address] [place] [address] documented as of this encounter
--- OUTSIDE RECORDS SUMMARY | 2022-01-25 12:39 | XMS_ITS | Encounter Summary ---
:1950 Author Organization [facility] Address [place] [id number] Care Team Providers Name Role Phone Celio Sanders MD Primary Care Provider Encounter Details Date Type Department Care Team Description 08/03/2016 Surgery Main Operating Room Frederick Pelaez MD PROSTATE IMPLANT [facility] COIL PROCEDURE ([facility] DR 13.46) [facility] [place] [address] [place] [id number] [phone] Social History Tobacco Use Types Packs/Day Years [...] Reading Time Taken Comments Blood Pressure 139/75 08/03/2016 11:49 AM EDT Pulse 81 08/03/2016 11:49 AM EDT Temperature 36.5 ??C (97.7 ??F) 08/03/2016 11:49 AM EDT Respiratory Rate 18 08/03/2016 11:49 AM EDT Oxygen Saturation 97% 08/03/2016 11:49 AM EDT Inhaled Oxygen Concentration - - Weight - - Height - - Body Mass Index - - documented in this encounter Discharge Instructions Discharge InstructionsMitali Mann RN - 08/03/2016 3:40 PM EDT 1. After the procedure: ?? Follow the discharge instructions provided by the Same Day Program. Avoid riding on anything thatbounces such as lithopress operator, ATV, horse back riding or motorcycle riding for one week. ? You may take extra-strength Tylenol for any discomfort. ?? Take your dexamethasone as instructed. ?? . ?? Call us if you notice any unusual swelling, pain, or if you have any other concerns. ? *Your planning session will be done the following week. Several hours before planning session usea saline enema. Plan to arrive to this appointment with a comfortably full bladder.* POST ANESTHESIA INSTRUCTIONS Go home, rest, use caution on stairs. Change positions slowly. Do not smoke if you are alone. Diet light to regular as tolerated today. If nausea occurs start with clear liquids and progress slowly. No driving, operating machinery, alcoholic beverages and no important decisions for 24 hours. Monitor IV site for signs and symptoms of infection: increasing redness, swelling, foul drainage, ifoccurs contact M.D. Patients who have had endotrachial tubes (this tube, used by anesthesia department, is passed down your throat after you are asleep, to ensure safe air passage during your operation). A sore throat is normal due to the tube. Cold liquids or soothing lozenges will help ease the discomfort. ?? The generalized muscle aches are due to the medication given to you just before the tube is inserted. As the medication wears off, you may develop muscle soreness, which usually goes away in 12-24 hours. ? documented in this encounter Medications at Time of Discharge Medication Sig Dispensed Refills Start Date End Date pravastatin (PRAVACHOL) 40 Take 40 mg by 0 mg Tablet mouth daily. LEVOTHYROXINE SODIUM Take 75 mcg by 0 (LEVOTHROID ORAL) mouth daily. mirtazapine (REMERON) 30 mg Take 30 mg by 0 08/06/2017 Tablet mouth nightly. clonazePAM (KLONOPIN) 2 mg Take 2 mg by mouth 0 08/15/2017 Tablet nightly. lamoTRIgine (LAMICTAL) 150 Take 150 mg by 0 08/15/2017 mg Tablet mouth daily. documented as of this encounter Progress Notes Matthew Pelaez MD - 08/03/2016 1:10 PM EDT 24-hr update. Patient seen and examined. No changes. Patient in good condition for planned procedure. documented in this encounter Miscellaneous Notes Op Note - Matthew Pelaez MD - 08/03/2016 4:27 PM EDT [facility] Operative Note Patient Name: Nain Mckeon : [id number] MR#: [id number] Case Date: 08/03/2016 Surgeon: Surgeon(s) and Role: * Matthew Pelaez MD - Primary Preoperative diagnosis: PROSTATE CA GOLD COIL IMPLANT/ MINOR OR Postoperative diagnosis: * No post-op diagnosis entered * Procedure(s) (LRB): PROSTATE IMPLANT GOLD COIL PROCEDURE (WRVU 13.46) (N/A) Findings: Successful placement of gold coil fiducial markers within right and left lobes of the prostate and successful placement of Space()OAR hydrogel in the prostate/rectal interface Anesthesia: MAC Estimated Blood Loss: Minimal Specimens removed during surgery: None Drains: None Surgical Closure: None required. Disposition: aroused from sedation, and taken to the recovery room in a stable condition Condition: doing well without problems (Please see the Surgical Encounter Summary for any Implant and Specimen details pertinent to this patient.) HPI/Surgical Indications: Nain Mckeon is a 65 y.o. gentleman with high-risk prostate cancer, PSA 47.5, Andre 4+4=8/10, Stage [id number]. He is planned for EBRT along with ADT. First Lupron injection was 22.5 mg (3-months) on 05/31/16. He originally was seen in [facility] by Dr. Vazquez. He did not tolerate placement of gold coil fiducial markers under local anesthesia. He now presents for H&P in preparation for placement of gold coils and SpaceOAR hydrogel under conscious sedation. Procedure Description: Nain Mckeon was placed in the lithotomy position. A transrectal ultrasound probe was placed withinthe rectum and stabilized using the placement positioning system. The perineum was prepped and draped. Lidocaine (2%) with bicarb was used to anesthetize the skin, SQ tissues, and tissues posterior to the prostate apex under U/S guidance. The Space(OAR) system was prepared as per final inspector balance wheel's recommendations. A needle was then placed trans-perineally into the right lobe of the prostate under ultrasound guidance with the graticule serving for stabilization and position verification. The ultrasound was used to monitor the advancement of the needle, and lidocaine was locally applied as the needle was advanced. Once it was properly positioned, a 2.0 cm length of gold coil was placed within the right lobe, andthe needle was removed. This procedure was repeated within the left prostate. A needle was then placed trans-perineally under U/S guidance into Denonvillier's fascia at the levelof the midgland of the prostate. Hydrodissection confirmed needle placement. Hydrogel was then injected into the prostate-rectal interface. U/S axial and sagittal imaging confirmed placement of the hydrogel between prostate and rectum. The patient was discharged in good condition. Infection Bundle used? No \ documented in this encounter Plan of Treatment Upcoming Encounters Date Type Specialty Care Team Description 02/04/2022 Office Visit Radiation Oncology Rama Ramos, [facility] RADIATION [place], [place] [address] (Wo rk) documented as of this encounter Procedures Procedure Name Priority Date/Time Associated Diagnosis Comme nts PROSTATE IMPLANT GOLD Yes 08/03/2016 1:26 PM EDT PROSTATE CA GOLD COIL COIL PROCEDURE (WRVU IMPLANT/ MINOR OR 13.46) documented in this encounter Visit Diagnoses Not on filedocumented in this encounter Administered Medications Inactive Administered Medications - up to 3 most recent administrations Medication Order MAR Action Action Date Dose Rate Site lactated Ringers infusion 1,000 mL New Bag 08/03/2016 1:32 PM EDT 1,000 mL, at 100 mL/hr, Intravenous, CONTINUOUS, Starting on Tue08/03/16 at 1200, Until Tue08/03/16 at 1619, Day of Surgery (Day of Procedure) New Bag 08/03/2016 12:00 PM EDT 1,000 mLs 100 mL/hr documented in this encounter Active and Recently Administered Medications Times are shown in EDT. Scheduled Medication Order 08/01/2016 08/02/2016 08/03/2016 levofloxacin (LEVAQUIN) 500 mg in dextrose 5% 100 mL (COMPLETED) 1332 (Given - Provider: Rama Valdez CRNA - Comment: over 30 min) 500 mg, Intravenous, at 100 mL/hr, EVERY 24 HOURS, 1 dose, First dose on 08/03/16 at 1345, Day of Surgery (Day of Procedure), STAT Continuous Medication Order 08/01/2016 08/02/2016 08/03/2016 lactated Ringers infusion 1,000 mL (CANCELED) 1200 (New Bag - Provider: John Pierson RN)1332 (New Bag - Provider: Rama Valdez CRNA)1514 (Stopped - Provider: Rama Valdez CRNA) 1,000 mL, at 100 mL/hr, Intravenous, CON TINUOUS, Starting 08/03/16 at 1200, Until Tu08/03/16 at 1619, Day of Surgery (Day of Procedure) documented in this encounter Care Teams Concrete Boom Operator Relationship Specialty Start Date End Date Celio Sanders MD PCP - General Internal Medicine 05/19/16 [address] [place] [address] documented as of this encounter
--- OUTSIDE RECORDS SUMMARY | 2022-01-25 12:39 | XMS_ITS | Encounter Summary ---
:1950 Author Organization [facility] [place] [address] Care Team Providers Name Role Phone Celio Sanders MD Primary Care Provider Encounter Details Date Type Department Care Team Description 10/28/2016 Notes Only Radiation Oncology at TaylorRonnie chacon MD [address] [facility] RADIATION ONCOLOGY [place], [place] [phone] [place], [place] [id number] (Wo rk) Social History Tobacco Use Types Packs/Day Years Used Date Smoking Tobacco: Never Smokeless Tobacco: Never Alcohol Use Standard Drinks/Week Comments Yes 0 (1 standard drink = 0.6 oz pure beer o r wine a couple times a alcohol) month, if that Sex Assigned at Date Recorded Not on file documented as of this encounter Progress Notes Ronnie Vazquez MD - 10/28/2016 10:26 AM EDT RADIATION THERAPY COMPLETION NOTE IDENTIFICATION: Nain Mckeon is a 66 y.o. male diagnosed with node positive prostate cancer who recently completed radiotherapy to his pelvis and prostate at the [facility] in [place], [place]. Details of his radiation treatment course are as below. TREATMENT INTENT: Definitive (Curative) REFERRING PROVIDER: Dr. Curran RT information: Treatment modality: VMAT Date of RT Start: 08/24/16 Date of RT Completion: 10/27/16 Dose and targets: ?? Initial Treatment Site Pelvis Prescribed Dose 45 Gy in 25 fractions ? Boost Treatment Site 1 Entire SV Prescribed Dose 70.2 Gy in 39 fractions ? Boost Treatment Site 2 Prostate + Rt Obturator LN + Prox SV Prescribed Dose 79.2 Gy in 44 fractions ? SPECIAL TECHNICAL CONSIDERATIONS: The patient was simulated on a CT simulator. Customized inman were designed to encompass the targetvolume and identify organs at risk and with the intent of minimizing normal tissue toxicity. TREATMENT TOLERANCE: With regard to side effects noted during radiotherapy, the patient tolerated treatment extremely well with no significant acute (Grade 3 or above) toxicity. TREATMENT RESPONSE: The patient's response to treatment was undetermined, as he was largely asymptomatic at the time of presentation. FOLLOWUP: Follow-up visit with Radiation Oncology in [facility] is scheduled for 11/18/16for clinical symptom check; he has received instructions to call this office or seek the help of the local emergency room if any further problems should arise prior to followup. documented in this encounter Plan of Treatment Upcoming Encounters Date Type Specialty Care Team Description 02/04/2022 Office Visit Radiation Oncology Rama Ramos APRN [facility] RADIATION [place], [place] [address] (Wo rk) documented as of this encounter Visit Diagnoses Not on filedocumented in this encounter Care Teams Baseball Player Relationship Specialty Start Date End Date Celio Sanders MD PCP - General Internal Medicine 05/19/16 [address] [place] [address] documented as of this encounter
--- OUTSIDE RECORDS SUMMARY | 2022-01-25 12:39 | XMS_ITS | Encounter Summary ---
:1950 Author Organization [facility] [place] [address] Care Team Providers Name Role Phone Celio Sanders MD Primary Care Provider Reason for Visit Reason Comments Prostate Cancer Consultation (Routine) - Closed Specialty Diagnoses / Procedures Referred By Contact Refer red To Contact Hematology and Oncology Diagnoses Cancer of prostate with high recurrence risk (stage T3a or [place]ville 8-10 or PSA > 20) Ronnie Vazquez MD [facility] [address] [place] [address] [place] [id number] Referral ID Status Reason Start Date Expiration Date Visits V isits Requested Authorized [id number] Closed Consult, 10/07/2016 10/07/2017 1 1 Test & Treat Encounter Details Date Type Department Care Team Description 11/10/2016 Office Visit Hematology and Harjinder Snyder Maligna nt neoplasm of Oncology at [facility] prostate [facility] [place] Roberto HEMATOLOGY/ONCOLOG [id number] Y [phone] [place] [address] Social History Tobacco Use Types Packs/Day [...] Sign Reading Time Taken Comments Blood Pressure 140/74 11/10/2016 11:49 AM EDT Pulse 91 11/10/2016 11:49 AM EDT Temperature 36.6 ??C (97.9 ??F) 11/10/2016 11:49 AM EDT Respiratory Rate 18 11/10/2016 11:49 AM EDT Oxygen Saturation 97% 11/10/2016 11:49 AM EDT Inhaled Oxygen Concentration - - Weight 81.5 kg (179 lb 9.6 oz) 11/10/2016 11:49 AM EDT Height - - Body Mass Index 31.27 09/03/2016 7:58 AM EDT documented in this encounter Progress Notes Harjinder Snyder MD - 11/10/2016 12:00 PM EDT Diagnosis: prostate cancer Subjective: My muscle strength is going down HPI:Nain Mckeon is 66 y.o.M referred to us by Dr. Vazquez for a consultation on prostate cancer. The patient initially presented with blood in the urine. He had elevated PSA and abnormal digital rectal exam in the setting of hematuria (x3 episodes) that prompted referral to urology. Prior to biopsy,given the elevated PSA, he underwent bone scan 03/30/2016 that was negative for metastatic disease. On 04/27/2016 Dr. Curran performed ultrasound-guided prostate biopsy that showed [place]heville 4+4 disease in 2 cores and Andre 4+3 disease in 3 additional cores. All disease involved the right side of the gland which was 57 cc in size. In addition perineural invasion was noted. On 05/12/16 he completed stagingwith a CT of the abdomen and pelvis that showed a 3.4 cm (craniocaudad) enlarged right internal iliac lymph node. He started ADT with Lupron and Casodex on May [id number]. XRT was commenced on August 24, 2016. He complains on fatigue and decrease in muscle strength. Nain has noted improvement in his urinary symptoms. ?? PMH: Depression, gallbladder surgery and appendectomy Past Medical History: Diagnosis Date ??? Anxiety ??? Finger fracture multiple from basket ball injuries ??? Hyperlipidemia ??? Prostate cancer Social History: Nonsmoker, drinks 1 or 2 shots of alcohol a week, he is a retired used to work for [employer]. He has 2 children. Lives at home with his . Social History Social History ??? Marital status: Spouse name: N/A ??? Number of children: N/A ??? Years of education: N/A Occupational History ??? 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 Smoking status: Never Smoker ??? Smokeless tobacco: Never Used ??? Alcohol use Yes Comment: beer or wine a couple times a month, if that ??? Drug use: No ??? Sexual activity: Not on file Other Topics Concern ??? Not on file Social History Narrative Family History: Father had prostate cancer in his 80s, mother had colon cancer in her 60s, aunt had breast cancer Family History Problem Relation Age of Onset ??? Colorectal Cancer Mother ??? Prostate Cancer Father ??? Cancer Maternal Grandfather tongue ??? Breast Cancer Other paternal aunt Allergies: No Known Allergies Medications: Your Medications These changes are accurate as of: 11/10/16 11:59 PM. If you have any questions, ask your nurse or doctor. Continued medications, unchanged Dose Details calcium-vitamin D 500 mg(1,250mg) -200 unit Tab Take 1 tablet by mouth daily. Indications: Prevention of Vitamin D Deficiency 1 tablet Refills: 0 clonazePAM 2 mg Tab Commonly known as: KlonoPIN Take 2 mg by mouth nightly. 2 mg Refills: 0 lamoTRIgine 150 mg Tab Commonly known as: LaMICtal Take 150 mg by mouth daily. 150 mg Refills: 0 LEVOTHROID ORAL Take 75 mcg by mouth daily. 75 mcg Refills: 0 loperamide 2 mg Tab Commonly known as: IMODIUM A-D Take by mouth 4 times daily as needed for Diarrhea. Maximum 16 mg in 24 hours Refills: 0 mirtazapine 30 mg Tab Commonly known as: REMERON Take 30 mg by mouth nightly. 30 mg Refills: 0 ondansetron 8 mg Tbdl Commonly known as: ZOFRAN-ODT Take 1 tablet by mouth every 8 hours as needed for Nausea. 8 mg Quantity: 20 tablet Refills: 0 pravastatin 40 mg Tab Commonly known as: PRAVACHOL Take 40 mg by mouth daily. 40 mg Refills: 0 tamsulosin 0.4 mg Cp24 Commonly known as: FLOMAX Take 2 capsules by mouth nightly. 0.8 mg Quantity: 60 tablet Refills: PRN Review of Systems: Constitutional: Fatigue HEENT: Negative for sore throat, mouth sores and trouble swallowing. Eyes: Negative. Respiratory: Negative for cough, shortness of breath and wheezing. Cardiovascular: Negative for chest pain, palpitations and leg swelling. Gastrointestinal: Negative for nausea, vomiting, abdominal pain, diarrhea, constipation and abdominal distention. Genitourinary: Admits to-3 times at nights Musculoskeletal: Decreased muscle length Skin: Negative. Neurological: Negative. Hematological: Negative for adenopathy. PE: General: AAAx3, in [...] axillary nodes normal Neurologic: Normal Vitals BP 140/74 (Patient Position: Sitting) Pulse 91 Temp 36.6 ??C (97.9 ??F) (Oral) Resp 18 Wt 81.5 kg (179 lb 9.6 oz) SpO2 97% BMI 31.27 kg/m2 Pathology: 05/17/16 Extradepartmental number: ??[id number]; collection date, 04/27/2016. A - Prostatic core needle biopsy, right lateral base: ? 1. Adenocarcinoma, grade group 3, [place]ville grade 4+3, ?involving 95% of the biopsy core. ? 2. Perineural invasion identified. B - Prostatic core needle biopsy, right medial base: ? 1. Adenocarcinoma, grade group 3, [place] grade 4+3, ?involving 95% of the biopsy core. ? 2. Perineural invasion identified. C - Prostatic core needle biopsy, right mid lateral: ? Adenocarcinoma, grade group 4, Andre grade 4+4, ? involving 90% of the biopsy core. D - Prostatic core needle biopsy, right mid medial: ? 1. Adenocarcinoma, grade group 4, Andre grade 4+4, ?involving 40% of the biopsy [...] medial apex: ? Benign prostatic tissue. Labs: PSA 47 Imagin08/13/2016 pelvic MRI: IMPRESSION: 1. Limited MRI [...] on size and morphology. Assessment and Plan: Diagnosis: Prostate adenocarcinoma, PSA 47.5, Andre 4+4=8/10, Stage [id number]. Treatment: - 05/31/16 Lupron 22.5 and bicalutamide 50 mg a day - 08/24/16 - 10/27/16 XRT Mr. Mckeon has prostate adenocarcinoma with very high risk for recurrence. He has been on concurrentradiation and androgen deprivation therapy. Currently he continues Lupron every 3 months. Our discussion was devoted to adjuvant chemotherapy with docetaxel and secondary hormonal therapy with abiraterone and prednisone. Docetaxel was studied in several trials as adjuvant therapy (RTOG 0521) and for metastatic disease to lymph nodes (STAMPEDE). RTOG 0521 trial was technically negative but it did show 4% increase in survival in patient with high and very high risk for recurrence of prostate cancer. STAMPEDE trial did not show survival benefit of docetaxel for regional lymph node metastatic disease only. CHAARTED Trialwas negative in subgroup of patients with low burden of metastatic disease as well. So using docetaxel chemotherapy in patient with no known distant metastatic disease is area of controversy and not a standard of care yet. We discussed data of LATTITUDE and STAMPEDE trial on early use of abiraterone with prednisone in patients is hormone sensitive disease. LATTITUDE trial included patients with high-risk metastatic disease and showed 38% decrease in chanced to from prostate cancer. Patients with regional lymph node m etastases only were excluded. Subgroup analysis in STAMPEDE trial did not statistically significant survival benefit for patient with known metastatic disease, but it was positive in subgroup of patients with regional lymph node involvement. We still don't know if any abiraterone with prednisone early is better than if it is delayed mental hormone resistant disease. Currently the only FDA approved indication for abiraterone is castrate resistant metastatic prostatecancer. It can be changed within next few months though. At this moment Mr. Mckeon is receiving a standard of care treatment with detention ADT. I recommended to continue current regimen. I'll be happy to see him on as needed basis. Plan: 1. F/u with Dr. Vazquez 2. Continue ADT 3. Next visit as needed The plan was discussed with the patient in details. All questions were answered to patient's satisfaction. I would like to thank Dr. Sanders and Dr. Vazquez for allowing me to participate in the care of this wonderful gentleman documented in this encounter Plan of Treatment Upcoming Encounters Date Type Specialty Care Team Description 02/04/2022 Office Visit Radiation Oncology Rama Ramos, [facility] RADIATION [place], [place] [address] (Wo rk) Scheduled Referrals Name Type Priority Associated Order Schedule Diagnoses Referral to Outpatient Referral Routine Cancer of prostate Or dered: Hematology and with high 10/07/2016 Oncology recurrence risk (stage T3a or [place] 8-10 or PSA > 20) documented as of this encounter Visit Diagnoses Diagnosis Malignant neoplasm of prostate documented in this encounter Care Teams Wall Attendant Relationship Specialty Start Date End Date Celio Sanders MD PCP - General Internal Medicine 05/19/16 [address] [place] [address] documented as of this encounter
--- OUTSIDE RECORDS SUMMARY | 2022-01-25 12:39 | XMS_ITS | Encounter Summary ---
:1950 Author Organization [place] [address] Care Team Providers Name Role Phone eClio Sanders MD Primary Care Provider Encounter Details Date Type Department Care Team Description 12/21/2016 Telephone Radiation Oncology a t [facility] [place] [phone] Social History Tobacco Use Types Packs/Day Years Used Date Smoking Tobacco: Never Smokeless Tobacco: Never Alcohol Use Standard Drinks/Week Comments Yes 0 (1 standard drink = 0.6 oz pure beer o r wine a couple times a alcohol) month, if that Sex Assigned at Date Recorded Not on file documented as of this encounter Miscellaneous Notes Telephone Encounter - Nicky Marcelo - 12/21/2016 2:07 PM EDT Spoke w/ pt re: bill for space oar gel and how I have given this to our director documented in this encounter Plan of Treatment Upcoming Encounters Date Type Specialty Care Team Description 02/04/2022 Office Visit Radiation Oncology Rama Ramos APRN [facility] RADIATION [place], [place] [address] (Wo rk) documented as of this encounter Visit Diagnoses Not on filedocumented in this encounter Care Teams Vision Care Associate Relationship Specialty Start Date End Date Celio Sanders MD PCP - General Internal Medicine 05/19/16 [address] [place] [address] documented as of this encounter
--- OUTSIDE RECORDS SUMMARY | 2022-01-25 12:39 | XMS_ITS | Encounter Summary ---
:1950 [place] [address] Care Team Providers Name Role Phone Celio Sanders MD Primary Care Provider Encounter Details Date Type Department Care Team Description 08/04/2016 Telephone Radiation Oncology [place] [address] Social History Tobacco Use Types Packs/Day Years Used Date Smoking Tobacco: Never Smokeless Tobacco: Never Alcohol Use Standard Drinks/Week Comments Yes 0 (1 standard drink = 0.6 oz pure beer o r wine a couple times a alcohol) month, if that Sex Assigned at Date Recorded Not on file documented as of this encounter Miscellaneous Notes Telephone Encounter - Lisa Samuels - 08/04/2016 9:32 AM EDT I received an email from Nicky Hunt in Rad Onc on 08/03/16 stating this patient is receiving the space OAR implant and that patient is aware his Medicare will not pay as they consider it non-covered, experimental. I have confirmed active Medicare AB and supplement. Space OAR implant not covered by Medicare or . Informed Rad Onc team via email. documented in this encounter Plan of Treatment Upcoming Encounters Date Type Specialty Care Team Description 02/04/2022 Office Visit Radiation Oncology Rama Ramos, UTILITY AIDE [facility] RADIATION [place], [place] [address] (Wo rk) documented as of this encounter Visit Diagnoses Not on filedocumented in this encounter Care Teams Pit Crane Operator Relationship Specialty Start Date End Date Celio Sanders MD PCP - General Internal Medicine 05/19/16 [address] [place] [address] documented as of this encounter
--- OUTSIDE RECORDS SUMMARY | 2022-01-25 12:39 | XMS_ITS | Encounter Summary ---
:1950 Author Organization [facility] [place] [address] Care Team Providers Name Role Phone Celio Sanders MD Primary Care Provider Reason for Referral Consultation (Routine) - Specialty Diagnoses / Procedures Referred By Contact Refer red To Contact Diagnoses Cancer of prostate with high recurrence risk (stage T3a or [place] 8-10 or PSA > 20) Ronnie Vazquez MD [address] [place] [address] RADIATION ONCOLOGY [place], [place] [address] Referral ID Status Reason Start Date Expiration Date Visits V isits Requested Authorized [id number] Consult, 11/19/2016 05/18/2017 1 1 Test & Treat Encounter Details Date Type Department Care Team Description 11/18/2016 Office Visit Radiation Oncology at Ronnie Vazquez C ancer of prostate [facility] with high recurrence [address] [place] [address] risk (stage T3a or [place], [place] RADIATION ONCOL OGY Andre 8-10 or PSA > [id number] [place], [place] [address]) [phone] (Wo rk) Social History Tobacco Use Types [...] Sign Reading Time Taken Comments Blood Pressure 132/70 11/18/2016 10:15 AM EDT Pulse 91 11/18/2016 10:15 AM EDT Temperature 36.6 ??C (97.9 ??F) 11/18/2016 10:15 AM EDT Respiratory Rate 18 11/18/2016 10:15 AM EDT Oxygen Saturation 96% 11/18/2016 10:15 AM EDT Inhaled Oxygen Concentration - - Weight 82 kg (180 lb 12.8 oz) 11/18/2016 10:15 AM EDT Height - - Body Mass Index 31.48 09/03/2016 7:58 AM EDT documented in this encounter Progress Notes Ronnie Vazquez MD - 11/18/2016 10:00 AM EDT Images from the original note were not included. 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 year old male with high risk prostate cancer who recently completed treatment with radiotherapy to the pelvis, seminal vesicles, and prostate. CONCURRENT THERAPY: LT-ADT Lupron #1: 05/31/16 (22.5mg) Lupron #2: 08/26/16 (22.5mg) Lupron #3: Today (11/18/16) INTENT OF THERAPY: Definitive (Curative) RADIATION TREATMENT DETAILS: Initial Treatment Site Pelvis Prescribed Dose 45 Gy in 25 fractions Boost Treatment Site 1 Entire SV Prescribed Dose 70.2 Gy in 39 fractions Boost Treatment Site 2 Prostate + right obturator LN + Prox SV Prescribed Dose 79.2 Gy in 44 fractions Current Dose: 73.8 Gy in 41 fractions INTERVAL HISTORY Subjective: General - Overall doing well. Feels his energy levels have largely returned back to normal. Plans [place] to [place] with his and dog in the next few weeks. He saw Dr. Snyder last week, who did not recommend any further systemic therapy other than GnRH therapy, as he has been receiving. - Flomax 0.4 mg ongoing, helps with stream and nocturia which varies between 2-4x / night (still up from 1x/nt at baseline). Denies other LUTS or dysuria. IPSS = 9/ (versus 21/3 at baseline). GI - No diarrhea or bleeding. Pain: Pain score today is 0/10. Medications 11/18/16 1048 Medication Sig Taking? loperamide (IMODIUM A-D) 2 mg Tablet Take by mouth 4 times daily as needed for Diarrhea. Maximum 16 mg in 24 hours Yes tamsulosin (FLOMAX) 0.4 mg Capsule, Sust. Release [...] Take 75 mcg by mouth daily. Yes ondansetron (ZOFRAN-ODT) 8 mg Tablet, Rapid Dissolve Take 1 tablet by mouth every 8 hours as needed for Nausea. Patient not taking: Reported on 11/18/2016 Imaging / Laboratory Studies: I have personally reviewed this patient's interval portal imaging to confirm accurate positioning and alignment which matches the patient's original approved treatment planning images. No other interval studies for review. EXAM: BP 132/70 (Patient Position: Sitting) Pulse 91 Temp 36.6 ??C (97.9 ??F) (Oral) Resp 18 Wt 82kg (180 lb 12.8 oz) SpO2 96% BMI 31.48 kg/m2 Constitutional: he appears well-developed and well-nourished. [...] confined to bed or chair IMPRESSION/PLAN Impression: Recovered well from radiotherapy. Plan: He will be in [place] for next few months and would like to establish care with an oncologist there locally. We will contact [facility] ( ) to make a referral for Lupron and PSA in 3 months. RV here in 9 months. This patient was seen within 90 days of treatment, so this encounter constitutes a no-charge global visit. documented in this encounter Miscellaneous Notes Addendum Note - Ronnie Vazquez MD - 11/19/2016 7:14 AM EDT Addended by: RONNIE VAZQUEZ on: 11/19/2016 07:14 AM Modules accepted: Orders documented in this encounter Plan of Treatment Upcoming Encounters Date Type Specialty Care Team Description 02/04/2022 Office Visit Radiation Oncology Rama Ramos APRN [facility] RADIATION [place], [place] [address] (Wo rk) Scheduled Referrals Name Type Priority Associated Diagnoses Order S chedule Referral to Outpatient Referral Routine Cancer of prostate Or dered: Radiation Oncology with high recurrence 0 11/19/2016 risk (stage T3a or [place] 8-10 or PSA > 20) documented as of this encounter Visit Diagnoses Diagnosis Cancer of prostate with high recurrence risk (stage T3a or [place] 8-10 or PSA > 20) Malignant neoplasm of prostate documented in this encounter Care Teams Machine Spring Former Relationship Specialty Start Date End Date Celio Sanders MD PCP - General Internal Medicine 05/19/16 [address] [place] [address] documented as of this encounter
--- OUTSIDE RECORDS SUMMARY | 2022-01-25 12:39 | XMS_ITS | Encounter Summary ---
:1950 [place] [address] Care Team Providers Name Role Phone Celio Sanders MD Primary Care Provider Reason for Visit Auth/Cert Specialty Diagnoses / Procedures Referred By Contact Refer red To Contact Diagnoses Bipolar disorder, current episode manic without psychotic features, moderate BIPOLAR Procedures PSYI Referral ID Status Reason Start Date Expiration Date Visits Requ ested Visits Authorized [id number] 1 1 Encounter Details Date Type Department Care Team Description 08/06/2017 - Hospital Encounter 2 [facility] Psychiatry David Keen ipolar II disorder 08/15/2017 Nicky Marvin MD [facility] [place] [id number] [phone] Social History Tobacco Use Types Packs/Day Years Used Date Smoking Tobacco: Never Smokeless Tobacco: Never Alcohol Use Standard Drinks/Week Comments Yes 0 (1 standard drink = 0.6 oz pure alcoho l) beer and wine twice a month Sex Assigned at Date Recorded Not on file documented as of this encounter Last Filed Vital Signs Vital Sign Reading Time Taken Comments Blood Pressure 132/72 08/15/2017 8:16 AM EDT Pulse 84 08/15/2017 8:16 AM EDT Temperature 36.4 ??C (97.5 ??F) 08/15/2017 8:16 AM EDT Respiratory Rate 18 08/15/2017 8:16 AM EDT Oxygen Saturation 99% 08/15/2017 8:16 AM EDT Inhaled Oxygen Concentration - - Weight 78 kg (172 lb) 08/14/2017 8:37 AM EDT Height 160 cm (5' 3) 08/06/2017 8:00 PM EDT Body Mass Index 30.47 08/06/2017 8:00 PM EDT documented in this encounter Discharge Summaries Jaquan Qureshi MD - 08/15/2017 12:39 PM EDT Discharge Summary Patient Name: Mojgan Lipscomb Patient Age: 66 y.o. Language: Kuwaiti Race: White Ethnicity: Not nor Admit date: 08/06/2017 Discharge date and time: 08/15/2017 Attending Physician: Dr. Keen Discharge Physician: Dr. Qureshi Discharge Diagnoses (Hospital Problems) and Secondary Diagnoses (Chronic Problems): Active Hospital Problems Diagnosis ??? Bipolar disorder, current episode manic without psychotic features, moderate ??? Hypothyroidism ??? Hyperlipidemia ??? Prostate cancer metastatic to intrapelvic lymph node Resolved Hospital Problems Diagnosis Date Resolved No resolved problems to display. Active Non-Hospital Problems Diagnosis ??? Toxic encephalopathy ??? Bipolar II disorder ??? Hx of appendectomy ??? Hx laparoscopic cholecystectomy ??? 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 Foreign travel Follow-up Recommendations for Providers: Pt started on Olanzapine and up titrated to 15mg QHS for mood stabilization. Baseline metabolic labsdrawn during this admission. Patient would benefit from being on Olanzapine for at least 6 months. Consider tapering over the course of weeks thereafter. Follow fasting glucose, HgA1C, Lipid profile q 2 months for 6 months then annually after that. Avoid prednisone in this patient. Pt's Klonopin decreased to 1mg QHS Pt's psychiatric meds at time of discharge Lamotrigine 150mg once daily (For mood stabilization) Olanzapine 15mg nightly (for mood stabilization) Hydroxyzine 50mg nightly (for sleep) Clonazepam 1mg nightly (for sleep - take 0.5 tablet of home 2mg tablet) Follow-up Providers/Appointments: (Name of provider, location, and date if not listed below) General Instructions We have made the following appointments for you. : [facility] [address] [place] [address] Phone: Fax: Ila Hicks APRN: August 23 at 2:30pm Katlyn Stephanie: September 02 at 1:00pm Mental Health- [facility] Medical [facility]3] [address], [address] [place] [address] Phone: Fax: Dr. David Fleming: August 19 at 12:00pm Inpatient Provider Contact Information: For questions regarding this document (including laboratory or other studies) or issues relating to this hospitalization, please contact your patient resident care manager, GRAEME FORD RN, through the [facility] [employer]r [employer] . Issues after hours and on weekends will be handled by the residential plumber on-call who can be reached through the [facility] [employer]. Advance Care Plan The patient has an appointed surrogate decision maker: no Name of surrogate decision maker: na The patient has medical advance directives: no The patient has psychiatric advance directives: no All eleven elements of the Transition Record have been reviewed with the patient. Future Appointments and Orders Future Appointments Provider Department Dept Phone 08/23/2017 3:00 PM Gael Anderson MD Hematology/Oncology at [facility] [phone] 08/25/2017 10:30 AM Maria R Mora APRN Radiation Oncology at [facility] [phone] 08/25/2017 11:00 AM [facility], ROOM Hematology Oncology at [place] [phone] Reason for Hospitalization: safety, stabilization and medication management History of Presentation: As per the 08/06/2017 admission H&P: Mojgan is a 66yo male with a history of bipolar disorder and prostate cancer who arrived at [facility] by taxi from [facility] after spending the week in [facility] for manic symptoms and being discharged without atransfer to a psychiatric facility. The patient was a poor historian and much of the history was obtained from the patient's . ?? Mojgan had his first manic episode in 2003. Since then his brayan has been well controlled with lamictal. He has had some minor manic episodes since then, usually associated with him experimenting with going off of his medication, but none have required hospitalization. In June 2017, while he and his were wintering in [place], an oncologist recommended that he try the combination of Zytiga and Prednisone for his prostate cancer. Since then he has been acutely manic. ?? His brayan consists of being intrusive, standing only inches from people's faces when talking to them, yelling and swearing at his family, reckless driving, withdrawing $5,000 from the family bank account, irritability, losing car keys and credit cards, being talkative, getting little sleep, being easily distractible, eating more, and having flight of ideas. When they returned from [place], the patient's drove and she was secretly glad he lost his car keys because of his impulsivity. ?? The patient's went to [place] for a bridal shower, and while the patient was alone he felt scared at home and checked himself into [facility]. He sought voluntary transfer to a psychiatric facility but was unsuccessful and was eventually discharged Tuesday. Tuesday night he was still afraid and paranoid, and after a discussion with his psychiatrist he took a taxi to [facility] to be admitted to out psych unit. ?? There was some confusion at first about whether he was manic or delirious. Medicine was not concerned about delirium, and after some sleep he settled down enough to be appropriate for a psych admission. Hospital Course: Mojgan Lipscomb was voluntarily admitted to inpatient psychiatry for safety, stabilization, and medication optimization. Standard admission labs were ordered and pertinent results are located below. Bipolar Disorder, unspecified type, current manic episode - likely 2/2 Zytiga and Prednisone. These medications were held during this admission - Pt started on Olanzapine QHS and up titrated to 15mg QHS with good effect - Pt's symptoms of irritability, lability, talkativeness, derailment, increase in energy, difficultysleeping, and expansive affect improved over the course of this admission On the day of discharge, the patient denied thoughts of suicide, homicide, or violence. Follow up was scheduled as described below, and this information was provided to the patient in his After Visit Summary. Patient was also provided with emergency contact information. Functional and Cognitive Status: baseline Important Studies: Discharge Medications: ( Reviewed at time of discharge, indication for use included): Your Medications New Medications Dose Details hydrOXYzine 50 mg Tab Commonly known as: ATARAX Take 1 tablet by mouth nightly as needed for Anxiety (sleep. First line as needed for sleep). 50 mg Quantity: 30 tablet Refills: 0 OLANZapine 15 mg Tab Commonly known as: ZyPREXA Take 1 tablet by mouth nightly. 15 mg Quantity: 30 tablet Refills: 0 polyethylene glycol 17 gram Pwpk Commonly known as: MIRALAX Take 17 g by mouth daily as needed. 17 g Quantity: 14 each Refills: 0 Continued medications with new dosing Dose Details clonazePAM 2 mg Tab Commonly known as: KlonoPIN Take 0.5 tablets by mouth nightly as needed for Anxiety. What changed: - how much to take - when to take this - reasons to take this 1 mg Quantity: 60 tablet Refills: 0 Continued medications, unchanged Dose Details lamoTRIgine 150 mg Tab Commonly known as: LaMICtal Take 1 tablet by mouth daily. 150 mg Quantity: 30 tablet Refills: 1 LEVOTHROID ORAL Take 75 mcg by mouth daily. 75 mcg Refills: 0 pravastatin 40 mg Tab Commonly known as: PRAVACHOL Take 40 mg by mouth daily. 40 mg Refills: 0 tamsulosin 0.4 mg Cp24 Commonly known as: FLOMAX Take 2 capsules by mouth nightly. 0.8 mg Quantity: 60 tablet Refills: PRN TURMERIC ROOT EXTRACT ORAL Take 1 capsule by mouth 2 times daily. 1 capsule Refills: 0 STOPPED Medications diphenhydrAMINE 50 mg Cap Commonly known as: BENADRYL loperamide 2 mg Tab Commonly known as: IMODIUM A-D mirtazapine 30 mg Tab Commonly known as: REMERON ondansetron 8 mg Tbdl Commonly known as: ZOFRAN-ODT predniSONE 5 mg Tab Commonly known as: DELTASONE ZYTIGA 250 mg Tab Generic drug: abiraterone Antipsychotic Quality Measure (select one of three reasons): No Updated Allergies/ADRs: No Known Allergies Immunizations Given this Hospitalization: Immunization History Administered Date(s) Administered ??? Enhanced Inactivated Polio 01/25/2011 ??? Hepatitis A Vaccine, unspecified formulation 01/25/2011 ??? Influenza PF, Split 01/25/2011 ??? Yellow Fever Vaccine 01/25/2011 Smoking Status at Discharge: History Smoking Status ??? Never Smoker Smokeless Tobacco ??? Never Used Instructions Given to Patient at Discharge: Patient Instructions PATIENT DISCHARGE INSTRUCTIONS Reason for admission: Brayan Principal diagnosis at discharge: Bipolar disorder, current episode manic without psychotic features, moderate Vital Signs: BP: 132/72, Heart Rate: 84, Temp: 36.4 ??C (97.5 ??F), Resp: 18, BMI (Calculated): 30.15 Height: 160 cm (5' 3) (08/06/171999) Weight: 78 kg (172 lb) (08/14/17 0837) Operations and Procedures: Important Lab Data: Psychiatry Labs: Preg: No results found for: HCGQUAL, HCGQUANT Heme: No results found for: WBC, HGB, HCT, PLATELET, MCV, NEUTROABS No results found for: HA1C, SEDRATE Chem: No results found for: NA, K, CL, CO2, BUN, GLUCOSE, GLUCFASTING No results found for: CALCIUM, MAGNESIUM, PHOS LFTs: No results found for: ALT, AST, GGT, ALKPHOS, BILITOT, AMMONIA Coags: No results found for: PTT, PT, INR Thyroid: Lab Results Component Value Date TSH 4.60 (H) 08/06/2017 Lipids and HgbA1C: Lab Results Component Value Date CHLPL 169 08/10/2017 HDL 49 08/10/2017 CHOLHDL 3.4 08/10/2017 LDLCHOL 84 08/10/2017 TRIG 182 08/10/2017 Lab Results Component Value Date HA1C 5.6 08/10/2017 Vit Lvls: Lab Results Component Value Date [id number] 744 08/06/2017 SFOLATE >20.0 08/06/2017 UA: No results found for: GLUCOSEU, KETONESUA, PROTEINUADIP, BLOODUADIP, LEUKOESTERUA, NITRATEUA, WBCUA (May not represent most recent UA results. See eD-H labs for more details.) Tox: No results found for: ETHANOL, ACTMNPHEN, SALICYLATE, LEAD No results found for: UDAUSCREEN Rx Lvls: No results found for: LITHIUM, CARBAMAZEPIN, VALPROATE, LAMOTRIGINE, CLOZAPINE Pending Labs, Procedures, and studies at Discharge: none Discharge Disposition: home Primary Care Physician: Celio Sanders MD [phone] Special Physician Instructions: Special Instructions Provided to Mojgan Lipscomb: Lamotrigine 150mg once daily (For mood stabilization) Olanzapine 15mg nightly (for mood stabilization) Hydroxyzine 50mg nightly (for sleep) Clonazepam 1mg nightly (for sleep - take 0.5 tablet of home 2mg tablet) Synthroid 75mcg once daily ( for hypothyroidism) Pravastatin 40mg once daily (for hypercholesterolemia) Tamsulosin 0.8mg nightly Call your doctor, your local mental health center, or your local emergency room if you develop worsening symptoms of depression, anxiety, thoughts of harming yourself, thoughts of harming others, or any other decline in your overall condition. [facility] Emergency Services: [phone] [facility] Central Access Services: [phone] [facility] Main Line: [phone] Activity level: no restrictions from psychiatry Diet: no restrictions from psychiatry Driving: do not drive if sedated by medications Medications have been reviewed with the patient and the patient understands the use and side effectsof these medications as evidenced by discussions on interdisciplinary rounds. Discharge References/Attachments None Discharge Condition/Prognosis: Satisfactory condition. Prognosis is dependent on patient's participation in ongoing treatment and adherence with prescribed medications. Signed: Jaquan Qureshi MD 08/16/2017 Inpatient Provider Contact Information: Emergency Services (Crisis Line): [phone] [facility]: [phone] [facility] Main Line: [phone] Click refresh button immediately prior to signing DCS to ensure all inman are updated. Associated attestation - Swathi Novoa MD - 08/17/2017 10:44 AM EDT This patient was seen by Dr. David eKen on 08/15/17. Please see progress note dated 08/15/17 for complete Mental Status Exam and assessment. Alcohol Use [X] Patient does not meet criteria for unhealthy alcohol use. Tobacco Use [X] Patient is a non-smoker. The patient is ready for discharge with aftercare per AVS. Greater than 30 minutes was spent coordinating discharge for this patient and included [id number] interview and exam, explanation of after visit instructions and medications to the patient and necessary caregivers, documentation, and prescription management. documented in this encounter Discharge Instructions Discharge InstructionsGraeme Ford RN - 08/15/2017 9:59 AM EDT We have made the following appointments for you. : [facility] [address] [place] [id number] Phone: Fax: Ila Hicks LENDING CONSULTANT: August 23 at 2:30pm Katlyn Stephanie: September 02 at 1:00pm Mental Health- [address], [address] [place] [address] Phone: Fax: Dr. David Fleming: August 19 at 12:00pm Inpatient Provider Contact Information: For questions regarding this document (including laboratory or other studies) or issues relating to this hospitalization, please contact your patient resident care manager, GRAEME FORD RN, through the [facility] [employer] Maintenance [employer]r [employer] . Issues after hours and on weekends will be handled by the residential plumber on-call who can be reached through the [facility] [employer]r [employer]. Advance Care Plan The patient has an appointed surrogate decision maker: no Name of surrogate decision maker: na The patient has medical advance directives: no The patient has psychiatric advance directives: no All eleven elements of the Transition Record have been reviewed with the patient. Patient InstructionsJaquan Qureshi MD - 08/15/2017 11:25 AM EDT PATIENT DISCHARGE INSTRUCTIONS Reason for admission: Brayan Principal diagnosis at discharge: Bipolar disorder, current episode manic without psychotic features, moderate Vital Signs: BP: 132/72, Heart Rate: 84, Temp: 36.4 ??C (97.5 ??F), Resp: 18, BMI (Calculated): 30.15 Height: 160 cm (5' 3) (08/06/171999) Weight: 78 kg (172 lb) (08/14/17 0837) Operations and Procedures: Important Lab Data: Psychiatry Labs: Preg: No results found for: HCGQUAL, HCGQUANT Heme: No results found for: WBC, HGB, HCT, PLATELET, MCV, NEUTROABS No results found for: HA1C, SEDRATE Chem: No results found for: NA, K, CL, CO2, BUN, GLUCOSE, GLUCFASTING No results found for: CALCIUM, MAGNESIUM, PHOS LFTs: No results found for: ALT, AST, GGT, ALKPHOS, BILITOT, AMMONIA Coags: No results found for: PTT, PT, INR Thyroid: Lab Results Component Value Date TSH 4.60 (H) 08/06/2017 Lipids and HgbA1C: Lab Results Component Value Date CHLPL 169 08/10/2017 HDL 49 08/10/2017 CHOLHDL 3.4 08/10/2017 LDLCHOL 84 08/10/2017 TRIG 182 08/10/2017 Lab Results Component Value Date HA1C 5.6 08/10/2017 Vit Lvls: Lab Results Component Value Date [id number] 744 08/06/2017 SFOLATE >20.0 08/06/2017 UA: No results found for: GLUCOSEU, KETONESUA, PROTEINUADIP, BLOODUADIP, LEUKOESTERUA, NITRATEUA, WBCUA (May not represent most recent UA results. See eD-H labs for more details.) Tox: No results found for: ETHANOL, ACTMNPHEN, SALICYLATE, LEAD No results found for: UDAUSCREEN Rx Lvls: No results found for: LITHIUM, CARBAMAZEPIN, VALPROATE, LAMOTRIGINE, CLOZAPINE Pending Labs, Procedures, and studies at Discharge: none Discharge Disposition: home Primary Care Physician: eClio Sanders MD [phone] Special Physician Instructions: Special Instructions Provided to Mojgan Lipscomb: Lamotrigine 150mg once daily (For mood stabilization) Olanzapine 15mg nightly (for mood stabilization) Hydroxyzine 50mg nightly (for sleep) Clonazepam 1mg nightly (for sleep - take 0.5 tablet of home 2mg tablet) Synthroid 75mcg once daily ( for hypothyroidism) Pravastatin 40mg once daily (for hypercholesterolemia) Tamsulosin 0.8mg nightly Call your doctor, your local mental health center, or your local emergency room if you develop worsening symptoms of depression, anxiety, thoughts of harming yourself, thoughts of harming others, or any other decline in your overall condition. [facility] Emergency Services: [phone] [facility] Central Access Services: [phone] [facility] Main Line: [phone] Activity level: no restrictions from psychiatry Diet: no restrictions from psychiatry Driving: do not drive if sedated by medications Medications have been reviewed with the patient and the patient understands the use and side effectsof these medications as evidenced by discussions on interdisciplinary rounds. documented in this encounter Medications at Time of Discharge Medication Sig Dispensed Refills Start Date End Date lamoTRIgine (LAMICTAL) Take 1 tablet by 30 tablet 1 018 150 mg Tablet mouth daily. TURMERIC ROOT EXTRACT Take 1 capsule by 0 ORAL mouth 2 times daily. pravastatin (PRAVACHOL) Take 40 mg by mouth 0 40 mg Tablet daily. LEVOTHYROXINE SODIUM Take 75 mcg by mouth 0 (LEVOTHROID ORAL) daily. clonazePAM (KLONOPIN) 2 Take 0.5 tablets by 60 tablet 0 01/201812/28/2019 mg Tablet mouth nightly as needed for Anxiety. OLANZapine (ZYPREXA) 15 Take 1 tablet by 30 tablet 0 201708/18/2018 mg Tablet mouth nightly. polyethylene glycol Take 17 g by mouth 14 each 0 08/16/19 18 08/18/2018 (MIRALAX) 17 gram Powder daily as needed. in Packet hydrOXYzine (ATARAX) 50 Take 1 tablet by 30 tablet 0 201708/18/2018 mg Tablet mouth nightly as needed for Anxiety (sleep. First line as needed for sleep). tamsulosin (FLOMAX) 0.4 Take 2 capsules by 60 tablet 09/0509/09/2017 mg Capsule, Sust. Release mouth nightly. 24 hrIndications: Malignant neoplasm of prostate documented as of this encounter Progress Notes Luciano Carey RN - 08/15/2017 12:39 PM EDT Psychiatric Nursing Discharge Note Patient Completed Relapse Prevention Plan: yes Patient aware of follow-up appointments: yes Patient evidences understanding of medication use and regime: yes Patient belongings returned: All except Patient's own medications. Patient left unit with: At what time? 1250 Radha Taylor MHT - 08/15/2017 10:56 AM EDT Inpatient Daily Group Note Group: Goals Group Reviewed principles of behavioral activation, discussed the importance of recognizing avoidance and how to work towards having behavior be goal focused not mood focused. Reminded patients that during groups the television, computer and patient phones are not available for use and that only water can be brought into the group room and that there is no food allowed during groups. Attendance: Present Behavior: Quiet Mood: Calm Notes: Pt states he is going home today. TOR GIPSON 08/15/2017 David Keen MD - 08/15/2017 8:00 AM EDT Psychiatry Inpatient - Progress Note 08/15/2017 ID: Mojgan Lipscomb is a 66 y.o. male admitted on 08/06/2017 for brayan in the context of history of bipolar disorder and recent treatment for prostate cancer (chemotherapy and prednisone). Hospital day 9. Current Working Primary Diagnosis: Bipolar disorder, current episode manic without psychotic features, moderate Pertinent medical issues being addressed: hyperlipidemia, prostate cancer Interval History: (1,1,4) Narrative: Doing well, denied any depression or anxiety, looking forward to going home, medication complaint. Attending groups and interacting appropriately on the unit. He denied any suicidal or homicidal ideations. Per nursing report - slept 6 hours, medication compliant, depression 3, anxiety 0, brayan 2-3 (0- none, 10-worst) Review of Systems: (0,1,2) CONST no recent weight change CV no angina, no palpitations and no dyspnea on exertion RESP no shortness of breath GI no nausea, no vomiting, no diarrhea and no constipation NEURO no headache MS no pain PSYCH See above Other Suicide Risk Factors on Day of Admission: Enduring Factors: chronic mental health problems ?? Dynamic Factors: no recent suicidal ideation ?? Protective Factors: ?? Access to Firearms: denies Physical Exam: (1,6,9) Vitals (24hr Range): Temp: [36.8 ??C (98.2 ??F)] Resp: [17] Heart Rate: [93] BP: (127)/(68) SpO2: [99 %] Patient Vitals for the past 168 hrs: Weight 08/14/17 0837 78 kg (172 lb) Musculoskeletal System: normal gait and balance, ambulates independently and no atrophy Mental Status Exam: ?? Appearance: age appropriate, casually dressed and well groomed ?? Behavior: cooperative with the interview, calm and good eye contact ?? Speech: normal pitch, normal volume, normal rhythm, hyperverbal and spontaneous ?? Language: fluent in slovak ?? Mood: I feel pretty good. ?? Affect: bright, full and mood-congruent ?? Thought Process: linear, logical and normal use of abstraction ?? Associations: loose ?? Thought Content: denied homicidal ideation, denied suicidal ideation, no bizarre delusions and noparanoid delusions ?? Perception: denied auditory hallucinations denied visual hallucinations not observed responding to internal stimuli ?? Orientation: grossly intact by interview ?? Attention/Concentration: able to sustain focus, able to resist distraction and able to attend interview ?? Cognition: grossly intact by interview ?? Memory: recent and remote memory grossly intact ?? Fund of Knowledge: appropriate for age and level of functioning ?? Insight: fair ?? Judgment: fair Everly Suicide Risk Scale (most recently completed): Suicidal Thoughts: Have you had any actual thoughts of killing yourself?: No (08/14/17899) Suicide Behavior Question: Have you ever done anything, started to do anything, or prepared to do anything to end your life?: No (08/14/17899) Current Medications: Scheduled: ??? OLANZapine 15 mg Oral Nightly ??? clonazePAM 1 mg Oral Nightly ??? atorvastatin 10 mg Oral QPM ??? levothyroxine 75 mcg Oral QAM ??? lamoTRIgine 150 mg Oral Nightly ??? tamsulosin 0.8 mg Oral Nightly PRN: sodium chloride, OLANZapine zydis, clonazePAM, hydrOXYzine, polyethylene glycol (MIRALAX)oral powder, senna-docusate, acetaminophen Labs: Psychiatry Labs: Preg: No results found for: HCGQUAL, HCGQUANT Heme: No results found for: WBC, HGB, HCT, PLATELET, MCV, NEUTROABS Lab Results Component Value Date HA1C 5.6 08/10/2017 Chem: Lab Results Component Value Date GLUCFASTING 101 (H) 08/10/2017 No results found for: CALCIUM, MAGNESIUM, PHOS LFTs: No results found for: ALT, AST, GGT, ALKPHOS, BILITOT, AMMONIA Coags: No results found for: PTT, PT, INR Thyroid: No results found for: TSH, [id number], TT4 Lipids and HgbA1C: Lab Results Component Value Date CHLPL 169 08/10/2017 HDL 49 08/10/2017 CHOLHDL 3.4 08/10/2017 LDLCHOL 84 08/10/2017 TRIG 182 08/10/2017 Lab Results Component Value Date HA1C 5.6 08/10/2017 Vit Lvls: No results found for: [id number], SFOLATE UA: No results found for: GLUCOSEU, KETONESUA, PROTEINUADIP, BLOODUADIP, LEUKOESTERUA, NITRATEUA, WBCUA (May not represent most recent UA results. See eD-H labs for more details.) Tox: No results found for: ETHANOL, ACTMNPHEN, SALICYLATE, LEAD No results found for: UDAUSCREEN Rx Lvls: No results found for: LITHIUM, CARBAMAZEPIN, VALPROATE, LAMOTRIGINE, CLOZAPINE Assessment: (including Suicide Risk Assessment) Brief Formulation: Mojgan Lipscomb??is a 66 y.o.??Male??with a history of bipolar disorder and prostate cancer who presents to [facility] with a manic episode in the setting of starting prednisone and Zytig for treatment of his prostate cancer. ?? Current Clinical Assessment: Patient manic symptoms resolved and he is back to his baseline, doing much better, sleeping well, and agreeable to follow up with outpatient care ?? Current Suicide Assessment: Patient at increased risk from baseline, but not at increased risk compared to the general psychiatric inpatient population given he is denying suicidal ideations, is futureoriented, has fair insight, and is actively seeking help. He is back to his baseline. ?? Current Working Primary Diagnosis: Bipolar disorder, current episode manic without psychotic features, moderate Plan: # Bipolar Disorder - current manic episode -Continue Lamictal 150mg QD -Continue Zyprexa to 15mg QHS -Zydis 5mg BID PRN ? # Anxiety - continue Clonazepam 1mg QHS (down from 2mg at admissions) ? # Prostate Cancer / Hypothyroidism / Hyperlipidemia - Will not restart medications for cancer treatment given oncology recommendations. Patient will follow up with his outpatient provider. - Tamsulosin for enlarged prostate gland - Levothyroxine for thyroid supplementation - Atorvastatin for elevated cholesterol ? # Disposition: -After stabilization, patient expected to return home Outpatient Care: Provider Name Date Contacted By Treatment Team Current Mental Health Prescriber David Fleming MD 08/08/2017 Current Therapist PCP Celio Sanders MD Patient Instruction/Education Provided: Patient provided verbal instructions during rounds regardingthe treatment plan. I have reviewed and agree with the multidisciplinary treatment plan. Greater than 30 minutes was spent coordinating discharge for this patient and included [id number] interview and exam, explanation of after visit instructions and medications to the patient and necessary caregivers, documentation, and prescription management. Signed By: David Keen MD 08/15/2017 Nanda Bonilla RN - 08/15/2017 12:30 AM EDT Fifteen minute checks maintained this shift. Mulu Gunn MS - 08/14/2017 10:28 AM EDT Inpatient Daily Group Note Group: Goals: Reviewed rules and expectations, daily schedule, patients' progress and goals and readdaily text. Attendance: Present Behavior: Relevant Therapeutic Work Observed: Moderate Mood: Calm Notes: Patient has goal to rest, relax, go for walk, restoration, finish pg. 3-4, watch the mosotho open. Plan to invite to all groups. MULU GUNN 08/14/2017 Inpatient Daily Group Note Group: Open discussion: Check-in and discussion about how to stay connected, remember coping skills and how to not isolate. Attendance: Present Behavior: Expressive Therapeutic Work Observed: Moderate Mood: Calm Notes: patient engaged actively and discussed the stigma and how to stay connected through ups and downs. MULU GUNN 08/14/2017 Jaquan Qureshi MD - 08/14/2017 10:10 AM EDT Psychiatry Inpatient - Progress Note 08/14/2017 ID: Mojgan Lipscomb is a 66 y.o. male admitted on 08/06/2017 for brayan. Hospital day 8. Current Working Primary Diagnosis: Bipolar disorder, current episode manic without psychotic features, moderate Pertinent medical issues being addressed: hyperlipidemia, prostate cancer Interval History: (1,1,4) Per Nursing Report: Feels mood is improved, feeling calmer, racing thoughts decreased. Denies anxiety, depression, states he is a little manic but feels he is getting closer to baseline. That Z stuff is working. Denies SI. Feels he will be ready for discharge on 08/15. ?? Narrative: Pt corroborates the above. He feels overall improved. Rates his brayan as 2-3 / 10. Continues to endorse some racing thoughts but which have improved. He continues to endorse short term memory loss which he better characterizes as distractability, which he says has improved. He reports that his sleephas improved. He thinks that the increase in olanzapine has been helpful overall. He feels ready to leave the hospital tomorrow. His goal today is to watch the tennis final I think Jemma is going to win Review of Systems: (0,1,2) CONST no recent weight change CV no angina, no palpitations and no dyspnea on exertion RESP no shortness of breath GI no nausea, no vomiting, no diarrhea and no constipation NEURO no headache MS no pain PSYCH See above Other Suicide Risk Factors on Day of Admission: Enduring Factors: chronic mental health problems ?? Dynamic Factors: no recent suicidal ideation ?? Protective Factors: ?? Access to Firearms: denies Physical Exam: (1,6,9) Vitals (24hr Range): Temp: [36.8 ??C (98.2 ??F)] Resp: [17] Heart Rate: [93] BP: (127)/(68) SpO2: [99 %] Patient Vitals for the past 168 hrs: Weight 08/14/17 0837 78 kg (172 lb) Musculoskeletal System: normal gait and balance, ambulates independently and no atrophy Mental Status Exam: ?? Appearance: age appropriate, casually dressed and well groomed ?? Behavior: cooperative with the interview, calm and good eye contact ?? Speech: normal pitch, normal volume, normal rhythm, hyperverbal and spontaneous ?? Language: fluent in slovak ?? Mood: Doing better. ?? Affect: bright, full and mood-congruent ?? Thought Process: linear and concrete ?? Associations: intact and loose ?? Thought Content: denied homicidal ideation, denied suicidal ideation, no bizarre delusions and noparanoid delusions ?? Perception: denied auditory hallucinations denied visual hallucinations not observed responding to internal stimuli ?? Orientation: grossly intact by interview ?? Attention/Concentration: able to sustain focus, able to resist distraction and able to attend interview ?? Cognition: grossly intact by interview ?? Memory: recent and remote memory grossly intact ?? Fund of Knowledge: appropriate for age and level of functioning ?? Insight: fair ?? Judgment: fair Everly Suicide Risk Scale (most recently completed): Suicidal Thoughts: Have you had any actual thoughts of killing yourself?: No (08/14/17899) Suicide Behavior Question: Have you ever done anything, started to do anything, or prepared to do anything to end your life?: No (08/14/17899) Current Medications: Scheduled: ??? OLANZapine 15 mg Oral Nightly ??? clonazePAM 1 mg Oral Nightly ??? atorvastatin 10 mg Oral QPM ??? levothyroxine 75 mcg Oral QAM ??? lamoTRIgine 150 mg Oral Nightly ??? tamsulosin 0.8 mg Oral Nightly PRN: sodium chloride, OLANZapine zydis, clonazePAM, hydrOXYzine, polyethylene glycol (MIRALAX)oral powder, senna-docusate, acetaminophen Labs: Psychiatry Labs: Preg: No results found for: HCGQUAL, HCGQUANT Heme: No results found for: WBC, HGB, HCT, PLATELET, MCV, NEUTROABS Lab Results Component Value Date HA1C 5.6 08/10/2017 Chem: Lab Results Component Value Date GLUCFASTING 101 (H) 08/10/2017 No results found for: CALCIUM, MAGNESIUM, PHOS LFTs: No results found for: ALT, AST, GGT, ALKPHOS, BILITOT, AMMONIA Coags: No results found for: PTT, PT, INR Thyroid: No results found for: TSH, L1PKRXS, TT4 Lipids and HgbA1C: Lab Results Component Value Date CHLPL 169 08/10/2017 HDL 49 08/10/2017 CHOLHDL 3.4 08/10/2017 LDLCHOL 84 08/10/2017 TRIG 182 08/10/2017 Lab Results Component Value Date HA1C 5.6 08/10/2017 Vit Lvls: No results found for: [id number], SFOLATE UA: No results found for: GLUCOSEU, KETONESUA, PROTEINUADIP, BLOODUADIP, LEUKOESTERUA, NITRATEUA, WBCUA (May not represent most recent UA results. See eD-H labs for more details.) Tox: No results found for: ETHANOL, ACTMNPHEN, SALICYLATE, LEAD No results found for: UDAUSCREEN Rx Lvls: No results found for: LITHIUM, CARBAMAZEPIN, VALPROATE, LAMOTRIGINE, CLOZAPINE Assessment: (including Suicide Risk Assessment) Brief Formulation: Mojgan Lipscomb??is a 66 y.o.??Male??with a history of bipolar disorder and prostate cancer who presents to [facility] with a manic episode in the setting of starting prednisone and Zytig for treatment of his prostate cancer. ?? Current Clinical Assessment: Patient's manic symptoms are improving. He is likely nearing baseline. He will likely be ready for discharge tomorrow. ?? Current Suicide Assessment: Patient at increased risk from baseline, but not at increased risk compared to the general psychiatric inpatient population given he is denying suicidal ideations, is futureoriented, has fair insight, and is actively seeking help ?? Current Working Primary Diagnosis: Bipolar disorder, current episode manic without psychotic features, moderate Reasons for continued hospitalization: Warrants ongoing inpatient admission for safety, stabilization, and any other therapeutic intervention that could conceivably improve the patient's condition (including medication management, group psychotherapy, establishing adequate outpatient care). Plan: # Bipolar Disorder - current manic episode -Continue Lamictal 150mg QD -Continue Zyprexa to 15mg QHS -Zydis 5mg BID PRN ?? # Anxiety - continue Clonazepam 1mg QHS (down from 2mg at admissions) ?? # Prostate Cancer / Hypothyroidism / Hyperlipidemia - Will not restart medications for cancer treatment given oncology recommendations. Patient will follow up with his outpatient provider. - Tamsulosin for enlarged prostate gland - Levothyroxine for thyroid supplementation - Atorvastatin for elevated cholesterol ?? # Disposition: -After stabilization, patient expected to return home ?? #PRNS: ? Sleep: atarax ? Anxiety atarax ? Pain tylenil ? Agitation zydis as above Outpatient Care: Provider Name Date Contacted By Treatment Team Current Mental Health Prescriber David Fleming MD 08/08/2017 Current Therapist PCP Celio Sanders MD Patient Instruction/Education Provided: Patient provided verbal instructions during rounds regardingthe treatment plan. I have reviewed and agree with the multidisciplinary treatment plan. I certify that the patient requires inpatient care for psychiatric treatment that could reasonably be expected to improve the patient's condition and/or diagnostic study. Signed By: Jaquan Qureshi MD 08/14/2017 Associated attestation - Shahida Mackay MD - 08/14/2017 1:27 PM EDT I saw and evaluated the patient within 24 hours of the service described by the resident. I reviewed the patient???s history during the visit and I agree with the details as written. My exam confirms the resident???s findings. The assessment and plan were formulated in discussion with me and I agree with them as documented. Major issues addressed/discussed: Rates brayan as a 2-3/10. Overall less irritable. + improvement since admission. Additional comments: Nanda Bonilla RN - 08/14/2017 1:34 AM EDT Fifteen minute checks maintained this shift. Radha Meraz - 08/13/2017 12:42 PM EDT Inpatient Daily Group Note Group: Goals Attendance: Present Behavior: Conversational Therapeutic Work Observed: Moderate Mood: Calm Notes: Pt.'s goals for today are: RADHA MERAZ 08/13/2017 Patient attended the following activities:Attend workshop; walk and mindfulness group. _X___Walk ___X_Workshop ____Pet visit Additional pertinent information: Inpatient Daily Group Note Group: Relapse prevention/safety planning Focus of group was review of the plan and discussion on how to make an effective one for self. Attendance: Present Behavior: Conversational Therapeutic Work Observed: Moderate Mood: Calm Notes: Attentive, added relevant comments and took notes. RADHA MERAZ 08/13/2017 Inpatient Daily Group Note Group: Mindfulness Focus of group was review of what mindfulness is, practice of, watching video and discussion/reaction of video. Attendance: Present Behavior: Conversational Therapeutic Work Observed: Moderate Mood: Calm Notes:Pt. active in sharing his experience with mindfulness. Responsive to comments of peers. RADHA MERAZ 08/13/2017 Shahida Mackay MD - 08/13/2017 12:13 PM EDT Psychiatry Inpatient - Progress Note 08/13/2017 ID: Mojgan Lipscomb is a 66 y.o. male admitted on 08/06/2017 for brayan. Hospital day 7. Current Working Primary Diagnosis: Bipolar disorder, current episode manic without psychotic features, moderate Pertinent medical issues being addressed: hyperlipidemia, prostate cancer Interval History: (1,1,4) Per Nursing Report: Patient no longer appearing manic. ?? Narrative: Mojgan slept 8 hours. Rates depression as a 0/10 and Anxiety as a 0/10 and brayan as a 3/10.Denies SI. Feels being in a safe environment, sleeping better and rest has been helpful. Plans to attend groups today. Overall he notes feeling relaxed Review of Systems: (0,1,2) CONST no recent weight change CV no angina, no palpitations and no dyspnea on exertion RESP no shortness of breath GI no nausea, no vomiting, no diarrhea and no constipation NEURO no headache MS no pain PSYCH See above Other Suicide Risk Factors on Day of Admission: Enduring Factors: chronic mental health problems ?? Dynamic Factors: no recent suicidal ideation ?? Protective Factors: ?? Access to Firearms: denies Physical Exam: (1,6,9) Vitals (24hr Range): Temp: [36.6 ??C (97.9 ??F)] Resp: [18] Heart Rate: [81] BP: (134)/(74) SpO2: [100 %] Patient Vitals for the past 168 hrs: Weight 08/07/17 0849 78.1 kg (172 lb 2.9 oz) 08/06/171999 77.2 kg (170 lb 3.1 oz) Musculoskeletal System: normal gait and balance, ambulates independently and no atrophy Mental Status Exam: ?? Appearance: age appropriate, casually dressed and well groomed ?? Behavior: cooperative with the interview, restless, fidgety and good eye contact ?? Speech: normal pitch, normal volume, normal rhythm, hyperverbal and spontaneous ?? Language: fluent in slovak ?? Mood: relaxed ?? Affect: constricted ?? Thought Process: linear and concrete ?? Associations: tight ?? Thought Content: denied homicidal ideation, denied suicidal ideation, no bizarre delusions and noparanoid delusions ?? Perception: denied auditory hallucinations denied visual hallucinations not observed responding to internal stimuli ?? Orientation: grossly intact by interview ?? Attention/Concentration: able to sustain focus, able to resist distraction and able to attend interview ?? Cognition: grossly intact by interview ?? Memory: recent and remote memory grossly intact ?? Fund of Knowledge: appropriate for age and level of functioning ?? Insight: fair ?? Judgment: fair Everly Suicide Risk Scale (most recently completed): Suicidal Thoughts: Have you had any actual thoughts of killing yourself?: No (08/13/17899) Suicide Behavior Question: Have you ever done anything, started to do anything, or prepared to do anything to end your life?: No (08/13/17899) Current Medications: Scheduled: ??? OLANZapine 15 mg Oral Nightly ??? clonazePAM 1 mg Oral Nightly ??? atorvastatin 10 mg Oral QPM ??? levothyroxine 75 mcg Oral QAM ??? lamoTRIgine 150 mg Oral Nightly ??? tamsulosin 0.8 mg Oral Nightly PRN: sodium chloride, OLANZapine zydis, clonazePAM, hydrOXYzine, polyethylene glycol (MIRALAX)oral powder, senna-docusate, acetaminophen Labs: Psychiatry Labs: Preg: No results found for: HCGQUAL, HCGQUANT Heme: Lab Results Component Value Date WBC 7.1 08/06/2017 HGB 14.3 08/06/2017 HCT 40.9 08/06/2017 PLATELET 267 08/06/2017 MCV 92.1 08/06/2017 NEUTROABS 3.99 08/06/2017 Lab Results Component Value Date HA1C 5.6 08/10/2017 Chem: Lab Results Component Value Date NA 143 08/06/2017 K 3.7 08/06/2017 CL 100 08/06/2017 CO2 31 08/06/2017 BUN 20 08/06/2017 GLUCOSE 95 08/06/2017 GLUCFASTING 101 (H) 08/10/2017 Lab Results Component Value Date CALCIUM 9.5 08/06/2017 LFTs: No results found for: ALT, AST, GGT, ALKPHOS, BILITOT, AMMONIA Coags: No results found for: PTT, PT, INR Thyroid: Lab Results Component Value Date TSH 4.60 (H) 08/06/2017 Lipids and HgbA1C: Lab Results Component Value Date CHLPL 169 08/10/2017 HDL 49 08/10/2017 CHOLHDL 3.4 08/10/2017 LDLCHOL 84 08/10/2017 TRIG 182 08/10/2017 Lab Results Component Value Date HA1C 5.6 08/10/2017 Vit Lvls: Lab Results Component Value Date [id number] 08/06/2017 SFOLATE >20.0 08/06/2017 UA: Lab Results Component Value Date GLUCOSEU Negative 08/06/2017 KETONESUA 5 (A) 08/06/2017 PROTEINUADIP 30 (A) 08/06/2017 BLOODUADIP Negative 08/06/2017 LEUKOESTERUA Negative 08/06/2017 NITRATEUA Negative 08/06/2017 WBCUA 1 08/06/2017 (May not represent most recent UA results. See eD-H labs for more details.) Tox: Lab Results Component Value Date ETHANOL <100 08/06/2017 No results found for: UDAUSCREEN Rx Lvls: No results found for: LITHIUM, CARBAMAZEPIN, VALPROATE, LAMOTRIGINE, CLOZAPINE Assessment: (including Suicide Risk Assessment) Brief Formulation: Mojgan Lipscomb??is a 66 y.o.??Male??with a history of bipolar disorder and prostate cancer who presents to [facility] with a manic episode in the setting of starting prednisone and Zytig for treatment of his prostate cancer. ?? Current Clinical Assessment: Patient not appearing manic today. Sleep has improved. ?? Current Suicide Assessment: Patient at increased risk from baseline, but not at increased risk compared to the general psychiatric inpatient population given he is denying suicidal ideations, is futureoriented, has fair insight, and is actively seeking help ?? Current Working Primary Diagnosis: Bipolar disorder, current episode manic without psychotic features, moderate Reasons for continued hospitalization: Warrants ongoing inpatient admission for safety, stabilization, and any other therapeutic intervention that could conceivably improve the patient's condition (including medication management, group psychotherapy, establishing adequate outpatient care). Plan: # Bipolar Disorder - current manic episode -Continue Lamictal 150mg QD -Continue Zyprexa to 15mg QHS -Zydis 5mg BID PRN ?? # Anxiety - continue Clonazepam 1mg QHS - continue clonazepam 0.5 mg QHS PRN - discontinue (patient has not used in 4 days) - Home dose of clonazepam 2mg QHS, will continue to work on tapering if possible. ?? # Prostate Cancer / Hypothyroidism / Hyperlipidemia - Will not restart medications for cancer treatment given oncology recommendations. Patient will follow up with his outpatient provider. - Tamsulosin for enlarged prostate gland - Levothyroxine for thyroid supplementation - Atorvastatin for elevated cholesterol ? # Disposition: -After stabilization, patient expected to return home ?? #PRNS: ? Sleep: atarax ? Anxiety atarax ? Pain tylenil ? Agitation zydis as above Outpatient Care: Provider Name Date Contacted By Treatment Team Current Mental Health Prescriber David Fleming MD 08/08/2017 Current Therapist PCP Celio Sanders MD Patient Instruction/Education Provided: Patient provided verbal instructions during rounds regardingthe treatment plan. I have reviewed and agree with the multidisciplinary treatment plan. I certify that the patient requires inpatient care for psychiatric treatment that could reasonably be expected to improve the patient's condition and/or diagnostic study. Signed By: SHAHIDA MACKAY MD 08/13/2017 Nanda Bonilla RN - 08/13/2017 3:43 AM EDT Fifteen minute checks maintained this shift. Jaquan Qureshi MD - 08/12/2017 3:31 PM EDT Psychiatry Inpatient - Progress Note 08/12/2017 ID: Mojgan Lipscomb is a 66 y.o. male admitted on 08/06/2017 for brayan. Hospital day 6. Current Working Primary Diagnosis: Bipolar disorder, current episode manic without psychotic features, moderate Pertinent medical issues being addressed: hyperlipidemia, prostate cancer Interval History: (1,1,4) Per Nursing Report: Patient was pleasant and cooperative today. He denied suicidal ideation. His affect was full. He was visible on the unit, quietly social with his peers. He attended some of the groups. He was briefly tearful when talking about returning home. ?? Narrative: Family meeting with patient's yesterday and today. She is somewhat concerned about his progress, she does not believe that patient is at his baseline. She agrees to patient being discharged Tuesday. Patient reports feeling well. He reports subjective improvement in manic symptoms. Agrees to discharge on Tuesday. Agrees to going up on Olanzapine over the weekend for better psychiatric control. Review of Systems: (0,1,2) CONST no recent weight change CV no angina, no palpitations and no dyspnea on exertion RESP no shortness of breath GI no nausea, no vomiting, no diarrhea and no constipation NEURO no headache MS no pain PSYCH See above Other Suicide Risk Factors on Day of Admission: Enduring Factors: chronic mental health problems ?? Dynamic Factors: no recent suicidal ideation ?? Protective Factors: ?? Access to Firearms: denies Physical Exam: (1,6,9) Vitals (24hr Range): Temp: [36.4 ??C (97.5 ??F)] Resp: [16] Heart Rate: [83] BP: (161)/(87) SpO2: [99 %] Patient Vitals for the past 168 hrs: Weight 08/07/17 0849 78.1 kg (172 lb 2.9 oz) 08/06/17 2000 77.2 kg (170 lb 3.1 oz) Musculoskeletal System: normal gait and balance, ambulates independently and no atrophy Mental Status Exam: ?? Appearance: age appropriate, casually dressed and well groomed ?? Behavior: cooperative with the interview, restless, fidgety and good eye contact ?? Speech: normal pitch, normal volume, normal rhythm, hyperverbal and spontaneous ?? Language: fluent in slovak ?? Mood: Doing better. ?? Affect: expansive and mood-congruent ?? Thought Process: linear and concrete ?? Associations: loose ?? Thought Content: denied homicidal ideation, denied suicidal ideation, no bizarre delusions and noparanoid delusions ?? Perception: denied auditory hallucinations denied visual hallucinations not observed responding to internal stimuli ?? Orientation: grossly intact by interview ?? Attention/Concentration: able to sustain focus, able to resist distraction and able to attend interview ?? Cognition: grossly intact by interview ?? Memory: recent and remote memory grossly intact ?? Fund of Knowledge: appropriate for age and level of functioning ?? Insight: fair ?? Judgment: fair Everly Suicide Risk Scale (most recently completed): Suicidal Thoughts: Have you had any actual thoughts of killing yourself?: No (08/12/17899) Suicide Behavior Question: Have you ever done anything, started to do anything, or prepared to do anything to end your life?: No (08/12/17899) Current Medications: Scheduled: ??? OLANZapine 15 mg Oral Nightly ??? clonazePAM 1 mg Oral Nightly ??? atorvastatin 10 mg Oral QPM ??? levothyroxine 75 mcg Oral QAM ??? lamoTRIgine 150 mg Oral Nightly ??? tamsulosin 0.8 mg Oral Nightly PRN: sodium chloride, OLANZapine zydis, clonazePAM, hydrOXYzine, polyethylene glycol (MIRALAX)oral powder, senna-docusate, acetaminophen Labs: Psychiatry Labs: Preg: No results found for: HCGQUAL, HCGQUANT Heme: Lab Results Component Value Date WBC 7.1 08/06/2017 HGB 14.3 08/06/2017 HCT 40.9 08/06/2017 PLATELET 267 08/06/2017 MCV 92.1 08/06/2017 NEUTROABS 3.99 08/06/2017 Lab Results Component Value Date HA1C 5.6 08/10/2017 Chem: Lab Results Component Value Date NA 143 08/06/2017 K 3.7 08/06/2017 CL 100 08/06/2017 CO2 31 08/06/2017 BUN 20 08/06/2017 GLUCOSE 95 08/06/2017 GLUCFASTING 101 (H) 08/10/2017 Lab Results Component Value Date CALCIUM 9.5 08/06/2017 LFTs: No results found for: ALT, AST, GGT, ALKPHOS, BILITOT, AMMONIA Coags: No results found for: PTT, PT, INR Thyroid: Lab Results Component Value Date TSH 4.60 (H) 08/06/2017 Lipids and HgbA1C: Lab Results Component Value Date CHLPL 169 08/10/2017 HDL 49 08/10/2017 CHOLHDL 3.4 08/10/2017 LDLCHOL 84 08/10/2017 TRIG 182 08/10/2017 Lab Results Component Value Date HA1C 5.6 08/10/2017 Vit Lvls: Lab Results Component Value Date [id number] 08/06/2017 SFOLATE >20.0 08/06/2017 UA: Lab Results Component Value Date GLUCOSEU Negative 08/06/2017 KETONESUA 5 (A) 08/06/2017 PROTEINUADIP 30 (A) 08/06/2017 BLOODUADIP Negative 08/06/2017 LEUKOESTERUA Negative 08/06/2017 NITRATEUA Negative 08/06/2017 WBCUA 1 08/06/2017 (May not represent most recent UA results. See eD-H labs for more details.) Tox: Lab Results Component Value Date ETHANOL <100 08/06/2017 No results found for: UDAUSCREEN Rx Lvls: No results found for: LITHIUM, CARBAMAZEPIN, VALPROATE, LAMOTRIGINE, CLOZAPINE Assessment: (including Suicide Risk Assessment)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 homicidal ideation, denied suicidal ideation, no bizarre delusions and noparanoid delusions, mild paranoia about secrets, he was unwilling to discuss some aspects of lettersand conversations ?? Perception: denied auditory hallucinations denied visual hallucinations not observed responding to internal stimuli ?? Orientation: grossly intact by interview ?? Attention/Concentration: distractable ?? Cognition: grossly intact by interview ?? Memory: recent and remote memory grossly intact ?? Fund of Knowledge: appropriate for age and level of functioning ?? Insight: limited ?? Judgment: limited Everly Suicide Risk Scale (most recently completed): Suicidal Thoughts: Have you had any actual thoughts of killing yourself?: No (08/09/17899) Suicide Behavior Question: Have you ever done anything, started to do anything, or prepared to do anything to end your life?: No (08/09/17899) Current Medications: Scheduled: ??? OLANZapine 10 mg Oral Nightly ??? clonazePAM 1 mg Oral Nightly ??? atorvastatin 10 mg Oral QPM ??? levothyroxine 75 mcg Oral QAM ??? lamoTRIgine 150 mg Oral Nightly ??? tamsulosin 0.8 mg Oral Nightly PRN: sodium chloride, OLANZapine zydis, clonazePAM, hydrOXYzine, polyethylene glycol (MIRALAX)oral powder, senna-docusate, acetaminophen Labs: Psychiatry Labs: Preg: No results found for: HCGQUAL, HCGQUANT Heme: Lab Results Component Value Date WBC 7.1 08/06/2017 HGB 14.3 08/06/2017 HCT 40.9 08/06/2017 PLATELET 267 08/06/2017 MCV 92.1 08/06/2017 NEUTROABS 3.99 08/06/2017 No results found for: HA1C, SEDRATE Chem: Lab Results Component Value Date NA 143 08/06/2017 K 3.7 08/06/2017 CL 100 08/06/2017 CO2 31 08/06/2017 BUN 20 08/06/2017 GLUCOSE 95 08/06/2017 Lab Results Component Value Date CALCIUM 9.5 08/06/2017 LFTs: No results found for: ALT, AST, GGT, ALKPHOS, BILITOT, AMMONIA Coags: No results found for: PTT, PT, INR Thyroid: Lab Results Component Value Date TSH 4.60 (H) 08/06/2017 Lipids and HgbA1C: No results found for: CHLPL, HDL, CHOLHDL, LDLCHOL, LDLDIRECT, TRIG No results found for: HA1C Vit Lvls: Lab Results Component Value Date [id number] 08/06/2017 SFOLATE >20.0 08/06/2017 UA: Lab Results Component Value Date GLUCOSEU Negative 08/06/2017 KETONESUA 5 (A) 08/06/2017 PROTEINUADIP 30 (A) 08/06/2017 BLOODUADIP Negative 08/06/2017 LEUKOESTERUA Negative 08/06/2017 NITRATEUA Negative 08/06/2017 WBCUA 1 08/06/2017 (May not represent most recent UA results. See eD-H labs for more details.) Tox: Lab Results Component Value Date ETHANOL <100 08/06/2017 No results found for: UDAUSCREEN Rx Lvls: No results found for: LITHIUM, CARBAMAZEPIN, VALPROATE, LAMOTRIGINE, CLOZAPINE Assessment: (including Suicide Risk Assessment) Brief Formulation: Mojgan Lipscomb??is a 66 y.o.??Male??with a history of bipolar disorder and prostate cancer who presents to [facility] with a manic episode in the setting of starting prednisone and Zytig for treatment of his prostate cancer. ?? Current Clinical Assessment: Patient continues to display manic symptoms of irritability, decreased sleep, and lability. He continues to show slow steady improvement. ?? Current Suicide Assessment: Patient at increased risk from baseline, but not at increased risk compared to the general psychiatric inpatient population given he is denying suicidal ideations, is futureoriented, has fair insight, and is actively seeking help ?? Current Working Primary Diagnosis: Bipolar disorder, current episode manic without psychotic features, moderate Reasons for continued hospitalization: Warrants ongoing inpatient admission for safety, stabilization, and any other therapeutic intervention that could conceivably improve the patient's condition (including medication management, group psychotherapy, establishing adequate outpatient care). Plan: # Bipolar Disorder - current manic episode -Continue Lamictal 150mg QD -Continue Zyprexa 10mg QHS -PRN Zyprexa swithced to PRN Zydis 5mg BID PRN ?? # Anxiety - continue Clonazepam 1mg QHS - continue clonazepam 0.5 mg QHS PRN - continue to taper - Home dose of clonazepam 2mg QHS, will continue to work on tapering if possible. ?? # Prostate Cancer / Hypothyroidism / Hyperlipidemia - Will not restart medications for cancer treatment given oncology recommendations. Patient will follow up with his outpatient provider. - Tamsulosin for enlarged prostate gland - Levothyroxine for thyroid supplementation - Atorvastatin for elevated cholesterol ? # Disposition: -After stabilization, patient expected to return home ?? #PRNS: ? Sleep: atarax ? Anxiety atarax ? Pain tylenil ? Agitation zydis as above Outpatient Care: Provider Name Date Contacted By Treatment Team Current Mental Health Prescriber David Fleming MD 08/08/2017 Current Therapist PCP Celio Sanders MD Patient Instruction/Education Provided: Patient provided verbal instructions during rounds regardingthe treatment plan. I have reviewed and agree with the multidisciplinary treatment plan. I certify that the patient requires inpatient care for psychiatric treatment that could reasonably be expected to improve the patient's condition and/or diagnostic study. Signed By: David Keen MD 08/10/2017 Nanda Bonilla RN - 08/10/2017 1:36 AM EDT Fifteen minute checks maintained this shift. Mulu Gunn MS - 08/09/2017 10:59 AM EDT Inpatient Daily Group Note Group: Goals: Reviewed rules and expectations, daily schedule, patients' progress and goals and daily reading. Notes: Patient invited, did not show. Plan to invite to walk and workshop. MULU GUNN MS 08/09/2017 Patient attended the following activities: _x_Walk ____Workshop ____Pet visit Additional pertinent information: David Keen MD - 08/09/2017 8:48 AM EDT Psychiatry Inpatient - Progress Note 08/09/2017 ID: Mojgan Lipscomb is a 66 y.o. male admitted on 08/06/2017 for brayan. Hospital day 3. Current Working Primary Diagnosis: Bipolar disorder, current episode manic without psychotic features, moderate Pertinent medical issues being addressed: hyperlipidemia, prostate cancer Interval History: (1,1,4) Narrative: I feel better. I need to get more rest. The patient chose to sit in a different chair than the chair designated for patients during his treatment team meeting. He was not redirectable to move. He reported feeling worried about going home. He did not want to talk about his and her concerns. He wants the team to call his . He reported sleeping well, but feeling foggy this morning. He endorses fast thoughts, but denies they are racing. He believes he needs more rest. Per nursing report - slept 7.75 hours, less irritable, oriented to the date not the day of the week, wants to mail a bunch of letters to relatives today, depression and anxiety a little Review of Systems: (0,1,2) CONST no recent weight change CV no angina, no palpitations and no dyspnea on exertion RESP no shortness of breath GI no nausea, no vomiting, no diarrhea and no constipation NEURO no headache MS no pain PSYCH See above Other Suicide Risk Factors on Day of Admission: Enduring Factors: chronic mental health problems ?? Dynamic Factors: no recent suicidal ideation ?? Protective Factors: ?? Access to Firearms: denies Physical Exam: (1,6,9) Vitals (24hr Range): Temp: [36.4 ??C (97.5 ??F)] Resp: [17-18] Heart Rate: [84-88] BP: (111-137)/(40-67) SpO2: [100 %] Patient Vitals for the past 168 hrs: Weight 08/07/17 08 78.1 kg (172 lb 2.9 oz) 08/06/171999 77.2 kg (170 lb 3.1 oz) Musculoskeletal System: normal gait and balance, ambulates independently and no atrophy Mental Status Exam: ?? Appearance: age appropriate, casually dressed and well groomed ?? Behavior: cooperative with the interview, restless, fidgety and good eye contact ?? Speech: normal pitch, normal volume, normal rhythm, hyperverbal and spontaneous ?? Language: fluent in slovak ?? Mood: I need more rest. ?? Affect: euphoric and expansive ?? Thought Process: concrete and circumstantial ?? Associations: loose ?? Thought Content: denied homicidal ideation, denied suicidal ideation, no bizarre delusions and noparanoid delusions ?? Perception: denied auditory hallucinations denied visual hallucinations not observed responding to internal stimuli ?? Orientation: grossly intact by interview ?? Attention/Concentration: distractable ?? Cognition: grossly intact by interview ?? Memory: recent and remote memory grossly intact ?? Fund of Knowledge: appropriate for age and level of functioning ?? Insight: limited ?? Judgment: limited Everly Suicide Risk Scale (most recently completed): Suicidal Thoughts: Have you had any actual thoughts of killing yourself?: No (08/08/17899) Suicide Behavior Question: Have you ever done anything, started to do anything, or prepared to do anything to end your life?: No (08/08/17899) Current Medications: Scheduled: ??? OLANZapine 10 mg Oral Nightly ??? clonazePAM 1 mg Oral Nightly ??? atorvastatin 10 mg Oral QPM ??? levothyroxine 75 mcg Oral QAM ??? lamoTRIgine 150 mg Oral Nightly ??? tamsulosin 0.8 mg Oral Nightly PRN: OLANZapine zydis, clonazePAM, hydrOXYzine, polyethylene glycol (MIRALAX)oral powder, senna-docusate, acetaminophen Labs: Psychiatry Labs: Preg: No results found for: HCGQUAL, HCGQUANT Heme: Lab Results Component Value Date WBC 7.1 08/06/2017 HGB 14.3 08/06/2017 HCT 40.9 08/06/2017 PLATELET 267 08/06/2017 MCV 92.1 08/06/2017 NEUTROABS 3.99 08/06/2017 No results found for: HA1C, SEDRATE Chem: Lab Results Component Value Date NA 143 08/06/2017 K 3.7 08/06/2017 CL 100 08/06/2017 CO2 31 08/06/2017 BUN 20 08/06/2017 GLUCOSE 95 08/06/2017 Lab Results Component Value Date CALCIUM 9.5 08/06/2017 LFTs: No results found for: ALT, AST, GGT, ALKPHOS, BILITOT, AMMONIA Coags: No results found for: PTT, PT, INR Thyroid: Lab Results Component Value Date TSH 4.60 (H) 08/06/2017 Lipids and HgbA1C: No results found for: CHLPL, HDL, CHOLHDL, LDLCHOL, LDLDIRECT, TRIG No results found for: HA1C Vit Lvls: Lab Results Component Value Date [id number] 08/06/2017 SFOLATE >20.0 08/06/2017 UA: Lab Results Component Value Date GLUCOSEU Negative 08/06/2017 KETONESUA 5 (A) 08/06/2017 PROTEINUADIP 30 (A) 08/06/2017 BLOODUADIP Negative 08/06/2017 LEUKOESTERUA Negative 08/06/2017 NITRATEUA Negative 08/06/2017 WBCUA 1 08/06/2017 (May not represent most recent UA results. See eD-H labs for more details.) Tox: Lab Results Component Value Date ETHANOL <100 08/06/2017 No results found for: UDAUSCREEN Rx Lvls: No results found for: LITHIUM, CARBAMAZEPIN, VALPROATE, LAMOTRIGINE, CLOZAPINE Assessment: (including Suicide Risk Assessment) Brief Formulation: Mojgan Lipscomb??is a 66 y.o.??Male??with a history of bipolar disorder and prostate cancer who presents to [facility] with a manic episode in the setting of starting prednisone and Zytig for treatment of his prostate cancer. ?? Current Clinical Assessment: Patient continues to display manic symptoms of irritability, decreased sleep, and lability. He continues to show slow steady improvement. ?? Current Suicide Assessment: Patient at increased risk from baseline, but not at increased risk compared to the general psychiatric inpatient population given he is denying suicidal ideations, is futureoriented, has fair insight, and is actively seeking help ?? Current Working Primary Diagnosis: Bipolar disorder, current episode manic without psychotic features, moderate Reasons for continued hospitalization: Warrants ongoing inpatient admission for safety, stabilization, and any other therapeutic intervention that could conceivably improve the patient's condition (including medication management, group psychotherapy, establishing adequate outpatient care). Plan: # Bipolar Disorder - current manic episode -Continue Lamictal 150mg QD -Continue Zyprexa 10mg QHS -PRN Zyprexa swithced to PRN Zydis 5mg BID PRN ?? # Anxiety - continue Clonazepam 1mg QHS - continue clonazepam 0.5 mg QHS PRN - continue to taper - Home dose of clonazepam 2mg QHS, will continue to work on tapering if possible. ?? # Prostate Cancer / Hypothyroidism / Hyperlipidemia - Will not restart medications for cancer treatment given oncology recommendations. Patient will follow up with his outpatient provider. - Tamsulosin for enlarged prostate gland - Levothyroxine for thyroid supplementation - Atorvastatin for elevated cholesterol ? # Disposition: -After stabilization, patient expected to return home ?? #PRNS: ? Sleep: atarax ? Anxiety atarax ? Pain tylenil ? Agitation zydis as above Outpatient Care: Provider Name Date Contacted By Treatment Team Current Mental Health Prescriber David Fleming MD 08/08/2017 Current Therapist PCP Celio Sanders MD Patient Instruction/Education Provided: Patient provided verbal instructions during rounds regardingthe treatment plan. I have reviewed and agree with the multidisciplinary treatment plan. I certify that the patient requires inpatient care for psychiatric treatment that could reasonably be expected to improve the patient's condition and/or diagnostic study. Signed By: David Keen MD 08/09/2017 ET Jaquan Qureshi MD - 08/08/2017 3:46 PM EDT I spoke with patient's outpatient provider Dr. Fleming. He says that he has known Mojgan for about 4 years and in that time he has never had symptoms concerning for a manic episode. He describes Mojgan as quiet, thoughtful, introspective, with a significant mindfulness based home practice, at baseline. Over the time they have worked together he has been well controlled on Lamictal 75mg, which was increased recently to 150mg when pt was at [facility]. Dr fleming increased Clonopin to 2mg QHS due to concern for difficulty sleeping, but is agreeable to helping taper this during this admission. Dr. Fleming identifies inter marital conflict as an ongoing stressor in this patient's life. He attributes Mojgan's current episode to recently starting prednisone. Jaquan Qureshi MD PGY-1 psychiatry Jackie Dorman MD - 08/08/2017 2:34 PM EDT I spoke with our Psychiatry team. Mojgan was admitted with a manic episode and has a history of bipolar disorder.They are holding his steroids given brayan. The team asked about continuing abiraterone without steroids. There was a phase II trial that looked at this and was presented as an abstract. In castration-resistant prostate cancer, abiraterone acetate without steroids is feasible, however, clinically significant adverse events, particularly hypertension, can occur in a minority of patients. Hypertension and hypokalemia can be treated with anti-hypertensive agents or potassium without steroids in the majority. Use of abiraterone acetate without prednisone needs to be balanced with the potential risk of toxicity.?? I relayed this information. Source: Elvis WOODALL, Heriberto L, Valdemar A. A phase II trial of abiraterone acetate (AA) without prednisonein castration resistant prostate cancer (CRPC). Abstract of a rn documentation presented at the 2017 [employer], August 09, 2016, [place], [place]. Clinical trial information: [id number]. Thus, it seems feasible to continue it but at the discretion of the managing provider and with closemonitoring. I spoke with Dr. Snyder. Mojgan opted for a lower dose of abiraterone due to cost constraints. Mojgan is no longer under his care but will be seen by Dr. Anderson on August 12. However, if Mojganwould like Dr. Snyder to provide recommendations regarding the above, he would gladly do so. Lupron can be discussed at the appointment with Dr. Anderson. I will send Dr. Anderson this note in preparation for his upcoming appointment with him later this week. aquan Montoya MD - 08/08/2017 1:22 PM EDT Psychiatry Inpatient - Progress Note 08/08/2017 ID: Mojgan Lipscomb is a 66 y.o. male admitted on 08/06/2017 for brayan. Hospital day 2. Current Working Primary Diagnosis: Bipolar disorder, current episode manic without psychotic features, moderate Pertinent medical issues being addressed: HLD Interval History: (1,1,4) Per nursing report: Denies SI/HI. No safety concerns. He states that this is brayan not his depression phase. Denies anxiety but is frustrated. Pt was irritable c/o that he is frustrated about the hospital rules, how long it took him to get a bed, he was too groggy in the morning and he doesn't want totake the new medication and will stick with klonopin protocol Per patient: Pt presents to rounds with a paper in hand with multiple questions scribbled on it. He asks for the names of the treatment team and writes them down. Pt describes his mood as Pissed off.He expresses frustration over not having a sleep protocol which he reports should include benadryl. Pt describes that he feels manic currently, although not as significant when he had the big one (referring to a major manic episode) in 2003. He reports sleeping poorly and that he refused to take 10mg of olanzapine due to concern of day time sedation. After discussing this further patient agreed to olanzapine 10mg QHS. He relates his current manic symptoms to recently starting new medications pred nisone and Zytiga and prednisone. He denies any passive or active suicidal ideation, he contracts for safety while in the hospital. Review of Systems: (0,1,2) CONST no fever CV no angina RESP no shortness of breath GI no nausea NEURO no headache MS no pain PSYCH See above Other Suicide Risk Factors on Day of Admission: Enduring Factors: chronic mental health problems Dynamic Factors: no recent SI Protective Factors: Access to Firearms: denies Physical Exam: (1,6,9) Vitals (24hr Range): Temp: [36.4 ??C (97.5 ??F)] Resp: [18] Heart Rate: [88] BP: (137)/(40) SpO2: [100 %] Patient Vitals for the past 168 hrs: Weight 08/07/17 0849 78.1 kg (172 lb 2.9 oz) 08/06/171999 77.2 kg (170 lb 3.1 oz) Musculoskeletal System: Ambulates without assistance Mental Status Exam: ?? Appearance: well groomed, wearing home cloths ?? Behavior: pt seemed to mistrust treatment team. Irritable. Laughing loudly at thimes ?? Speech: paraphasic errors, occasional word finding difficulty, occasionally loud ?? Language: fluent slovak non profane ?? Mood: Pissed off ?? Affect: Irritable appearing. Full range. Laughing inappropriately at times ?? Thought Process: linear ?? Associations: tight ?? Thought Content: no SI or HI, no grossl delusional content appreciated ?? Perception: not responding to internal stimuli ?? Orientation: grossly aaox3 ?? Attention/Concentration: grossly intact ?? Cognition: not formally tested but grossly intact ?? Memory: not formally tested but grossly intact ?? Fund of Knowledge: age appropriate ?? Insight: poor ?? Judgment: poor Everly Suicide Risk Scale (most recently completed): Suicidal Thoughts: Have you had any actual thoughts of killing yourself?: No (08/08/17899) Suicide Behavior Question: Have you ever done anything, started to do anything, or prepared to do anything to end your life?: No (08/08/17899) Current Medications: Scheduled: ??? OLANZapine 15 mg Oral Nightly ??? clonazePAM 1 mg Oral Nightly ??? atorvastatin 10 mg Oral QPM ??? levothyroxine 75 mcg Oral QAM ??? lamoTRIgine 150 mg Oral Nightly ??? tamsulosin 0.8 mg Oral Nightly ??? melatonin 3 mg Oral Nightly PRN: clonazePAM, OLANZapine, polyethylene glycol (MIRALAX)oral powder, senna- docusate, acetaminophen Labs: Psychiatry Labs: Preg: No results found for: HCGQUAL, HCGQUANT Heme: Lab Results Component Value Date WBC 7.1 08/06/2017 HGB 14.3 08/06/2017 HCT 40.9 08/06/2017 PLATELET 267 08/06/2017 MCV 92.1 08/06/2017 NEUTROABS 3.99 08/06/2017 No results found for: HA1C, SEDRATE Chem: Lab Results Component Value Date NA 143 08/06/2017 K 3.7 08/06/2017 CL 100 08/06/2017 CO2 31 08/06/2017 BUN 20 08/06/2017 GLUCOSE 95 08/06/2017 Lab Results Component Value Date CALCIUM 9.5 08/06/2017 LFTs: No results found for: ALT, AST, GGT, ALKPHOS, BILITOT, AMMONIA Coags: No results found for: PTT, PT, INR Thyroid: Lab Results Component Value Date TSH 4.60 (H) 08/06/2017 Lipids and HgbA1C: No results found for: CHLPL, HDL, CHOLHDL, LDLCHOL, LDLDIRECT, TRIG No results found for: HA1C Vit Lvls: Lab Results Component Value Date [id number] 08/06/2017 SFOLATE >20.0 08/06/2017 UA: Lab Results Component Value Date GLUCOSEU Negative 08/06/2017 KETONESUA 5 (A) 08/06/2017 PROTEINUADIP 30 (A) 08/06/2017 BLOODUADIP Negative 08/06/2017 LEUKOESTERUA Negative 08/06/2017 NITRATEUA Negative 08/06/2017 WBCUA 1 08/06/2017 (May not represent most recent UA results. See eD-H labs for more details.) Tox: Lab Results Component Value Date ETHANOL <100 08/06/2017 No results found for: UDAUSCREEN Rx Lvls: No results found for: LITHIUM, CARBAMAZEPIN, VALPROATE, LAMOTRIGINE, CLOZAPINE Assessment: (including Suicide Risk Assessment) Brief Formulation: Mojgan Lipscomb is a 66 y.o. Male with a history of bipolar disorder and prostate cancer who presents to [facility] with a manic episode in the setting of starting prednisone and Zytiga. Current Clinical Assessment: Pt continues to display manic symptoms of irritability, decreased sleep, and lability, but seems to be improving. No change to night time olanzapine today as patient took 5mg QHS last night despite 10mg QHS ordered. PRN Zyprexa switched to Zydis. Since patient benefited from benadryl qhs in the past for sleep, will prescribe Atarax 25mg PRN. [facility] onc consulted for recs regarding Zytiga and Leuprolide Current Suicide Assessment: Pt at some increased risk from baseline, but no acute risk given no recent SI Current Working Primary Diagnosis: Bipolar disorder, current episode manic without psychotic features, moderate Reasons for continued hospitalization: Warrants ongoing inpatient admission for safety, stabilization, and any other therapeutic intervention that could conceivably improve the patient's condition (including medication management, group psychotherapy, establishing adequate outpatient care). Plan: # Bipolar Disorder - current manic episode ?? Continue Lamictal 150mg QD ?? Continue Zyprexa 10mg QHS ?? PRN Zyprexa swithced to PRN Zydis 5mg BID PRN ?? Collateral from Dr. David Fleming william wadsworthm Yaneth # Anxiety - continue Clonazepam 1mg QHS - continue clonazepam 1mg QHS PRN - continue to taper - (home clonazepam 2mg QHS) # Prostate Ca ?? Heme onc consulted regarding mde recs re Zytiga and Leuprolide # Disposition: -After stabilization, patient expected to return home #PRNS: Sleep: atarax Anxiety atarax Pain tylenil Agitation zydis as above Outpatient Care: Provider Name Date Contacted By Treatment Team Current Mental Health Prescriber Contact 08/08 Current Therapist PCP Celio Sanders MD Patient Instruction/Education Provided: Patient provided verbal instructions during rounds regardingthe treatment plan. I have reviewed and agree with the multidisciplinary treatment plan. I certify that the patient requires inpatient care for psychiatric treatment that could reasonably be expected to improve the patient's condition and/or diagnostic study. Signed By: Jaquan Qureshi MD 08/08/2017 Associated attestation - David Keen MD - 08/08/2017 4:07 PM EDT INPATIENT PSYCHIATRY TEACHING PHYSICIAN INVOLVEMENT I saw and evaluated the patient with the above named resident/ See their note for details.. I reviewed the patient's history during the visit and I agree with the details as written. My exam confirms the resident's findings. The assessment and plan were formulated in discussion with me and I agree with them as documented. Major issues addressed/discussed: Bipolar Disorder - Increase olanzapine to 10 mg po qhs. The patient was prescribed 10 mg, but only took 5 mg last evening. Continue lamotrigine for mood stabilization.Continue clonazepam for insomnia and agitation, 1 mg po q bedtime. Group therapy (as tolerated) and milieu therapy focused on coping skills and boundary setting. Additional comments: I certify that the patient requires inpatient care for psychiatric treatment that could reasonably be expected to improve the patient's condition and/or diagnostic study. Mulu Gunn, - 08/08/2017 10:34 AM EDT Inpatient Daily Group Note Group: Goals: Reviewed rules and expectations, daily schedule, patient's progress and goals and readdaily text. Attendance: Present Behavior: Iriitable Therapeutic Work Observed: Moderate Mood: Hypomanic Notes: Patient has goal to follow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 represent most recent UA results. See eD-H labs for more details.) Tox: No results found for: ETHANOL, ACTMNPHEN, SALICYLATE, LEAD No results found for: UDAUSCREEN Rx Lvls: No results found for: LITHIUM, CARBAMAZEPIN, VALPROATE, LAMOTRIGINE, CLOZAPINE Assessment: Mojgan J Ketty??is a 66 y.o.??male??with a history of bipolar disorder (last manic episode in 2003)??admitted on 08/06/2017??for brayan in the setting of beginning prednisone and Zytig for treatment of prostate cancer. ? Current Working Primary Diagnosis:??Bipolar disorder w/ current brayan w/o psychotic features.? Current Clinical Assessment: BPD with manic episode resolving. Nearing baseline, safe to return homewith . Will be continued on olanzapine and lamictal as an outpatient with outpatient follow up. ? Current Suicide Assessment: Patient??at increased risk from baseline, but not at increased risk compared to the general psychiatric inpatient population given he is denying suicidal ideations, is future oriented, has fair insight, and is actively seeking help. Plan: # Bipolar Disorder - current manic episode -Continue Lamictal 150 mg QD -Continue Zyprexa to 15 mg QHS ? # Anxiety - Continue clonazepam 1mg QHS (home clonazepam 2mg QHS) ? # Prostate Ca -D/c'ed Zytiga and Leuprolide-- appreciate heme-onc rec's -Patient has outpatient f/up with new heme onc in [facility] on 08/23. ? #Other medical issues - Hypothyroidism: synthroid 75 mcg qD - HLD: atorvastatin 10mg qD - Congestion: NaCl spray BID PRN - BPH: Flomax 0.8mg # Disposition: -After stabilization, patient expected to return home. Additional Information: Reasons for continued hospitalization: Warrants ongoing inpatient admission for safety, stabilization, and any other therapeutic intervention that could conceivably improve the patient's condition (including medication management, group psychotherapy, establishing adequate outpatient care). Outpatient Care: Provider Name Date Contacted By Treatment Team Psychiatric prescriber David Fleming MD 08/08/2017 Therapist N/A PCP Celio Sanders MD N/A Patient Instruction/Education Provided: Patient provided verbal instructions during rounds regardingthe treatment plan. I have reviewed and agree with the multidisciplinary treatment plan. I certify that the patient requires [x] inpatient care for psychiatric treatment that could reasonably be expected to improve the patient's condition and/or diagnostic study. Signed By: Linda Burnett 08/15/17 Plan of Care - Azucena Silvestre RN - 08/14/2017 10:21 PM EDT Problem: Patient Care Overview Goal: Plan of Care Review Outcome: Ongoing (Interventions Implemented as Appropriate) 08/14/17 3265 Coping/Psychosocial Plan Of Care Reviewed With patient Plan of Care Review Progress improving OUTCOME EVALUATION NOTE: OUTCOME SUMMARY: Patient presents as smiling, joking this evening. States he continues to have some racing thoughts I try to slow them down Has to sit on his hands in group due to the urge to make a joke Denies SI. Rates depression 0-1/10, anxiety 0-1/10, brayan 2-3/10. Denies pain Had one brief episode of irritability when he did not perceive that staff was intervening for peer in timely Manner. Planning on discharge tomorrow, Still working on relapse prevention plan. Wants to be sure he is clear on medication doses and times prior to discharge. PLAN MOVING FORWARD: Encourage participation in groups,work on coping skills and stress management Monitor mood, behavior, safety on the unit INDIVIDUALIZED FALL PREVENTION INTERVENTIONS: Patient-specific fall risk factors per assessment: [current deficits]: Secondary diagnosis, medication adjustments Assistance [level of assistance required for transfers and ambulation]: independent Supervision [direct monitoring required during toileting and ADLs]: independent Surveillance [continuous indirect monitoring]: 15 minute checks Patient-specific fall prevention interventions for sensory deficits provided, if applicable: NA CPG GOAL OUTCOME EVALUATION: Plan of Care - Luciano Carey RN - 08/14/2017 1:53 PM EDT Problem: Patient Care Overview Goal: Plan of Care Review Outcome: Ongoing (Interventions Implemented as Appropriate) 08/13/171812 Coping/Psychosocial Plan Of Care Reviewed With patient Plan of Care Review Progress improving OUTCOME EVALUATION NOTE: OUTCOME SUMMARY: Patient was pleasant and cooperative today. He denied suicidal ideation. His affect was bright. He was quietly social with his peers. He attended groups. He attended the [employer] service in the morning. PLAN MOVING FORWARD: Continue current medications, Encourage groups. INDIVIDUALIZED FALL PREVENTION INTERVENTIONS: Patient-specific fall risk factors per assessment: [current deficits]: Secondary diagnosis Assistance [level of assistance required for transfers and ambulation]: independent Supervision [direct monitoring required during toileting and ADLs]: independent Surveillance [continuous indirect monitoring]: 15 minute checks Patient-specific fall prevention interventions for sensory deficits provided, if applicable: [X] N/A CPG GOAL OUTCOME EVALUATION: Plan of Care - Azucena Silvestre RN - 08/13/2017 6:18 PM EDT Problem: Patient Care Overview Goal: Plan of Care Review Outcome: Ongoing (Interventions Implemented as Appropriate) 08/13/171812 Coping/Psychosocial Plan Of Care Reviewed With patient Plan of Care Review Progress improving OUTCOME EVALUATION NOTE: OUTCOME SUMMARY: Patient appears calm this evening, pleasant and easily engaged. Has been attending groups today and tolerated well. Feels mood is improved, feeling calmer, racing thoughts decreased. Denies anxiety, depression, states he is a little manic but feels he is getting closer to baseline. That Z stuff is working. Denies SI Feels he will be ready for discharge on 08/15. PLAN MOVING FORWARD: Encourage continued participation in groups as able Monitor mood, safety and behavior on the unit. Monitor for over-stimulation INDIVIDUALIZED FALL PREVENTION INTERVENTIONS: Patient-specific fall risk factors per assessment: [current deficits]: Secondary diagnosis, medication adjustments Assistance [level of assistance required for transfers and ambulation]: independent Supervision [direct monitoring required during toileting and ADLs]: independent Surveillance [continuous indirect monitoring]: 15 minute checks Patient-specific fall prevention interventions for sensory deficits provided, if applicable: NA CPG GOAL OUTCOME EVALUATION: Plan of Care - Luciano Carey RN - 08/13/2017 1:53 PM EDT Problem: Patient Care Overview Goal: Plan of Care Review Outcome: Ongoing (Interventions Implemented as Appropriate) 08/11/172 08/12/17 1700 Coping/Psychosocial Plan Of Care Reviewed With -- patient Plan of Care Review Progress improving -- OUTCOME EVALUATION NOTE: OUTCOME SUMMARY: Patient was pleasant and cooperative today. He denied suicidal ideation. His affect was bright. He was quietly social with his peers. He attended some of the groups. PLAN MOVING FORWARD: Continue current medications. Encourage groups. INDIVIDUALIZED FALL PREVENTION INTERVENTIONS: Patient-specific fall risk factors per assessment: [current deficits]: Secondary diagnosis Assistance [level of assistance required for transfers and ambulation]: independent Supervision [direct monitoring required during toileting and ADLs]: independent Surveillance [continuous indirect monitoring]: 15 minute cjhecks Patient-specific fall prevention interventions for sensory deficits provided, if applicable: [X] N/A CPG GOAL OUTCOME EVALUATION: Plan of Care - Mitali Champion RN - 08/12/2017 8:06 PM EDT Problem: Patient Care Overview Goal: Plan of Care Review Outcome: Ongoing (Interventions Implemented as Appropriate) 08/11/17212108/12/17 170 Coping/Psychosocial Plan Of Care Reviewed With -- patient Plan of Care Review Progress improving -- OUTCOME EVALUATION NOTE: OUTCOME SUMMARY: Patient spent time on computer applying for [employer]- States his anxiety was increased earlier until had meeting w/ care team & - Patient wanted to attend evening group off the unit but per therapist patient became dis-regulated & irritable during group- Asked to return to the unit- Patient denied depression- Rated anxiety 05/14 & brayan 2-05/14- Patient states he wanted to remain in hospital until Tuesday- Began working on Wellness Recovery Plan- Appears easily distracted & has difficulty staying on task Awake @ 2245- States he has not slept yet- Prn Atarax given as ordered- Will monitor effect PLAN MOVING FORWARD: Monitor mood & behaviors Therapeutic groups when appropriate- Medications Offer support & reassurance INDIVIDUALIZED FALL PREVENTION INTERVENTIONS: Patient-specific fall risk factors per assessment: [current deficits]: Medium falls risk Assistance [level of assistance required for transfers and ambulation]: Independent w/ steady gait Supervision [direct monitoring required during toileting and ADLs]: independent Surveillance [continuous indirect monitoring]: 15 min checks- escort to groups Patient-specific fall prevention interventions for sensory deficits provided, if applicable: n/a CPG GOAL OUTCOME EVALUATION: Plan of Care - Luciano Carey RN - 08/12/2017 1:53 PM EDT Problem: Patient Care Overview Goal: Plan of Care Review Outcome: Ongoing (Interventions Implemented as Appropriate) 08/11/172121 Coping/Psychosocial Plan Of Care Reviewed With patient Plan of Care Review Progress improving OUTCOME EVALUATION NOTE: OUTCOME SUMMARY: Patient was pleasant and cooperative today. He denied suicidal ideation. His affect was full. He wasvisible on the unit, quietly social with his peers. He attended some of the groups. He was briefly tearful when talking about returning home. PLAN MOVING FORWARD: Increase bedtime zyprexa. Encourage groups. INDIVIDUALIZED FALL PREVENTION INTERVENTIONS: Patient-specific fall risk factors per assessment: [current deficits]: Secondary diagnosis Assistance [level of assistance required for transfers and ambulation]: independent Supervision [direct monitoring required during toileting and ADLs]: independent Surveillance [continuous indirect monitoring]: 15 minute checks Patient-specific fall prevention interventions for sensory deficits provided, if applicable: [X] N/A CPG GOAL OUTCOME EVALUATION: Med Student Progress Note - Linda Burnett - 08/12/2017 8:20 AM EDT Psychiatry Inpatient - Progress Note 08/12/2017 ID: Mojgan Lipscomb??is a 66 y.o.??male??with history of biolar I disorder admitted on 08/06/2017??for brayan (1 month of symptoms). Hospital day 6. Current Working Primary Diagnosis: Bipolar disorder w/ current brayan w/o psychotic features Pertinent medical issues being addressed: HLD Prostate cancer Hypothyroidism Interval History: (1,1,4) Per nursing report, patient slept 7.5 hours, depression is rated at 2/10 (10 being the worst), and anxiety is rated at 2/10 (10 being the worst). Rates his brayan as 2/10. Mojgan noted that his visited yesterday. He says the visit was overall good, but that he is stillconcerned about returning home to the home environment. No acute safety issues. Patient denies SI/HI. Review of Systems: (0,1,2) Constitutional: NAD HEENT: NCAT CV: ??No chest pain, no palpitations and no COTA Respiratory: ??Breathing non-labored GI: No N/V/D/C Neuro: Sleep fair Psych: See above Physical Exam: (1,6,9) Vitals (24hr Range): Temp: [36.4 ??C (97.5 ??F)-36.5 ??C (97.7 ??F)] Resp: [16-17] Heart Rate: [83-90] BP: (131-161)/(66-87) SpO2: [96 %-99 %] Patient Vitals for the past 168 hrs: Weight 08/07/17 0849 78.1 kg (172 lb 2.9 oz) 08/06/171999 77.2 kg (170 lb 3.1 oz) Musculoskeletal System: Normal gait and balance Mental Status Exam: ?? Appearance: Casually dressed, fair grooming, sitting in no apparent discomfort ?? Behavior: No psychomotor agitation or slowing, appropriate eye contact, cooperative with interview ?? Speech: Normal rate, pitch, and prosody. ??Volume appropriate for setting. ?? Language: Appropriate, Kuwaiti-speaking ?? Mood: Feel great ?? Affect: Lively and relatively bright w/ occasional laughter. ?? Thought Process: ??Linear, logical, and goal-directed. ?? Associations: Tight and intact. ?? Thought Content: No delusions or paranoid ideas, no suicidal and no homicidal ideation ?? Perception: No audio, visual, or tactile hallucinations.??Does not appear to be responding to internal stimuli ?? Orientation: Person, place, time/date and situation? Attention/Concentration: Intact to interview and discussion regarding care. ?? Cognition: Grossly intact? Memory: Remote and recent memory intact ?? Fund of Knowledge: Appears appropriate for level of education. ?? Insight: Fair. Knows that he needs to continue to rest in order to recover from brayan. Can tell that he is over the hump? Judgment: Fair. Sent letters to 's family asking them to convince her to be a better . Everly Suicide Risk Scale: Suicide Screening Suicidal Thoughts: Have you had any actual thoughts of killing yourself?: No Suicide Behavior Question: Have you ever done anything, started to do anything, or prepared to do anything to end your life?: No Current Medications: Scheduled: ??? OLANZapine 10 mg Oral Nightly ??? clonazePAM 1 mg Oral Nightly ??? atorvastatin 10 mg Oral QPM ??? levothyroxine 75 mcg Oral QAM ??? lamoTRIgine 150 mg Oral Nightly ??? tamsulosin 0.8 mg Oral Nightly PRN: sodium chloride, OLANZapine zydis, clonazePAM, hydrOXYzine, polyethylene glycol (MIRALAX)oral powder, senna-docusate, acetaminophen Labs: Last 24 Hours: No results found for this or any previous visit (from the past 24 hour(s)). Psychiatry Labs: Preg: No results found for: HCGQUAL, HCGQUANT Heme: No results found for: WBC, HGB, HCT, PLATELET, MCV, NEUTROABS Lab Results Component Value Date HA1C 5.6 08/10/2017 Chem: Lab Results Component Value Date GLUCFASTING 101 (H) 08/10/2017 No results found for: CALCIUM, MAGNESIUM, PHOS LFTs: No results found for: ALT, AST, GGT, ALKPHOS, BILITOT, AMMONIA Coags: No results found for: PTT, PT, INR Thyroid: Lab Results Component Value Date TSH 4.60 (H) 08/06/2017 Lipids and HgbA1C: Lab Results Component Value Date CHLPL 169 08/10/2017 HDL 49 08/10/2017 CHOLHDL 3.4 08/10/2017 LDLCHOL 84 08/10/2017 TRIG 182 08/10/2017 Lab Results Component Value Date HA1C 5.6 08/10/2017 Vit Lvls: Lab Results Component Value Date [id number] 744 08/06/2017 SFOLATE >20.0 08/06/2017 UA: No results found for: GLUCOSEU, KETONESUA, PROTEINUADIP, BLOODUADIP, LEUKOESTERUA, NITRATEUA, WBCUA (May not represent most recent UA results. See eD-H labs for more details.) Tox: No results found for: ETHANOL, ACTMNPHEN, SALICYLATE, LEAD No results found for: UDAUSCREEN Rx Lvls: No results found for: LITHIUM, CARBAMAZEPIN, VALPROATE, LAMOTRIGINE, CLOZAPINE Assessment: Mojgan Rosenberg Ketty??is a 66 y.o.??male??with a history of bipolar disorder (last manic episode in 2003)??admitted on 08/06/2017??for brayan in the setting of beginning prednisone and Zytig for treatment of prostate cancer. ? Current Working Primary Diagnosis:??Bipolar disorder w/ current brayan w/o psychotic features.? Current Clinical Assessment: Appears to be closer to baseline from manic symptoms on intake. believes he still has significant progress to make. Patient reports he is over the hump and returningtoward baseline. Low suicide risk. ? Current Suicide Assessment: Patient??at increased risk from baseline, but not at increased risk compared to the general psychiatric inpatient population given he is denying suicidal ideations, is future oriented, has fair insight, and is actively seeking help. Plan: # Bipolar Disorder - current manic episode -Continue Lamictal 150 mg QD -Increase Zyprexa to 15 mg QHS (encouraged patient to take this full dose) ? # Anxiety - Continue clonazepam 1mg QHS (home clonazepam 2mg QHS) ? # Prostate Ca -D/c'ed Zytiga and Leuprolide-- appreciate heme-onc rec's -Patient has outpatient f/up with new heme onc in [facility] on 08/23. ? #Other medical issues - Hypothyroidism: synthroid 75 mcg qD - HLD: atorvastatin 10mg qD - Congestion: NaCl spray BID PRN - BPH: Flomax 0.8mg ? # Disposition: -After stabilization, patient expected to return home. Additional Information: Reasons for continued hospitalization: Warrants ongoing inpatient admission for safety, stabilization, and any other therapeutic intervention that could conceivably improve the patient's condition (including medication management, group psychotherapy, establishing adequate outpatient care). Outpatient Care: Provider Name Date Contacted By Treatment Team Psychiatric prescriber David Fleming MD 08/08/2017 Therapist PCP Celio Sanders MD Patient Instruction/Education Provided: Patient provided verbal instructions during rounds regardingthe treatment plan. I have reviewed and agree with the multidisciplinary treatment plan. I certify that the patient requires [x] inpatient care for psychiatric treatment that could reasonably be expected to improve the patient's condition and/or diagnostic study. Signed By: Linda Burnett 08/12/17 Plan of Care - Florence Rosado RN - 08/11/2017 9:43 PM EDT Problem: Patient Care Overview Goal: Plan of Care Review Outcome: Ongoing (Interventions Implemented as Appropriate) 08/11/172121 Coping/Psychosocial Plan Of Care Reviewed With patient Plan of Care Review Progress improving OUTCOME EVALUATION NOTE: OUTCOME SUMMARY: Pt was cooperative and noted to be more calmer. He went to groups. Did his laundry and reports that he wrote letters to his relatives. He reports being more aware that he has racing thoughts and ideas as he is in a planning mode. This is in regards to his meeting with his tomorrow. On elaboration, he states he needs to have a back up plan and he feels that he needs to stay here longer. Butrates his brayan is 2 better than how I was. Rates depression and anxiety 2. Denies SI/HI. Med complaint. PLAN MOVING FORWARD: Medication as ordered, attend groups INDIVIDUALIZED FALL PREVENTION INTERVENTIONS: Patient-specific fall risk factors per assessment: [current deficits]: Low fall risk Assistance [level of assistance required for transfers and ambulation]: indp Supervision [direct monitoring required during toileting and ADLs]: ESC Surveillance [continuous indirect monitoring]: q 15 min checks Patient-specific fall prevention interventions for sensory deficits provided, if applicable: [X] No CPG GOAL OUTCOME EVALUATION: Goal: Individualization & Mutuality Outcome: Ongoing (Interventions Implemented as Appropriate) 08/11/172121 Individualization Patient Specific Preferences I think I need to stay until Tuesday or Tuesday. I feel that I need to stay here longer than Tuesday to becuase I need to get better. Patient Specific Goals mtg with my , think about my back up plan Patient Specific Interventions reassurance, medication Mutuality/Individual Preferences What Anxieties, Fears or Concerns Do You Have About Your Health or Care? I feel more awareness becuase I have racing thoughts of ideas what I need to do. What Questions Do You Have About Your Health or Care? Do I still have as needed dose of klonopin? What Information Would Help Us Give You More Personalized Care? I will take the z drug, it worked last night. Goal: Fall Prevention-Safe Patient Handling Outcome: Ongoing (Interventions Implemented as Appropriate) 08/11/172121 Restraint Interventions Safety Promotion/Fall Prevention fall prevention program maintained;nonskid shoes/slippers when out of bed;safety round/check completed Activity Activity Type up ad casey Activity Assistance Provided independent Assistive Device Utilized none Positioning Body Position independent Daily Care Interventions Self-Care Promotion independence encouraged Goal: Infection Control Outcome: Ongoing (Interventions Implemented as Appropriate) 08/11/172121 Safety Interventions Isolation Precautions standard precautions maintained Infection Prevention environmental surveillance performed;rest/sleep promoted;single patient room provided Coping Strategies Supportive Measures active listening utilized;decision-making supported;positive reinforcement provided;self-care encouraged;self-reflection promoted;self- responsibility promoted;verbalization of feelings encouraged Goal: Discharge Needs Assessment Outcome: Ongoing (Interventions Implemented as Appropriate) 08/11/172121 Discharge Needs Assessment Concerns To Be Addressed coping/stress concerns;mental health concerns Readmission Within The Last 30 Days no previous admission in last 30 days Provider Choice List(s) Given no Equipment Needed After Discharge none Current Discharge Risk psychiatric illness Discharge Disposition still a patient Current Health Outpatient/Agency/Support Group Needs outpatient psychiatric care (specify) Anticipated Changes Related to Illness none Activity/Self Care Review of Systems Equipment Currently Used at Home none Living Environment Transportation Available family or friend will provide Goal: Interdisciplinary Rounds/Family Conf Outcome: Ongoing (Interventions Implemented as Appropriate) 08/11/172121 Interdisciplinary Rounds/Family Conf Participants nursing;patient;physician Problem: Manic Behavior/Episode (Adult) Intervention: Promote/Support Mood Equilibrium 08/11/172121 Cognitive Interventions Sensory Stimulation Regulation auditory stimulation minimized;quiet environment promoted Coping Strategies Supportive Measures active listening utilized;decision-making supported;positive reinforcement provided;self-care encouraged;self-reflection promoted;self- responsibility promoted;verbalization of feelings encouraged Goal: Mood Equilibrium Patient will demonstrate the desired outcomes by discharge/transition of care. Outcome: Ongoing (Interventions Implemented as Appropriate) 08/11/172121 Manic Behavior/Episode (Adult) Mood Equilibrium making progress toward outcome Goal: Impulse Control Patient will demonstrate the desired outcomes by discharge/transition of care. Outcome: Ongoing (Interventions Implemented as Appropriate) 08/11/172121 Manic Behavior/Episode (Adult) Impulse Control making progress toward outcome Plan of Care - Riya Romero RN - 08/11/2017 10:42 AM EDT Problem: Patient Care Overview Goal: Plan of Care Review Outcome: Ongoing (Interventions Implemented as Appropriate) 08/11/17 1030 Coping/Psychosocial Plan Of Care Reviewed With patient Plan of Care Review Progress improving OUTCOME EVALUATION NOTE: OUTCOME SUMMARY: Pt working on safety plan and is preparing for family meeting tomorrow and discharge, he denies SI/HI, rates depression and anxiety at 2/10, brayan at 3/10, feels stable, no pain, appetite 100%, no irritability, pleasant on approach, mood stable, attends select groups. PLAN MOVING FORWARD: Discharge planning, complete safety plan, no medication changes INDIVIDUALIZED FALL PREVENTION INTERVENTIONS: Patient-specific fall risk factors per assessment: [current deficits]: independant Assistance [level of assistance required for transfers and ambulation]: Up[ ad casey, low fall risk Supervision [direct monitoring required during toileting and ADLs]: n/a Surveillance [continuous indirect monitoring]: purposeful rounding, q 15 min safety checks Patient-specific fall prevention interventions for sensory deficits provided, if applicable: n/a CPG GOAL OUTCOME EVALUATION: Goal: Individualization & Mutuality Outcome: Ongoing (Interventions Implemented as Appropriate) 08/10/17214608/11/17 1030 Individualization Patient Specific Preferences I think I want to go back to 2 klonopin and 2 bendryl. This was prescribed by -- Patient Specific Goals -- visit with , finish safety plan, prepare for discharge tomorrow Patient Specific Interventions reassurance, medication education -- Mutuality/Individual Preferences What Anxieties, Fears or Concerns Do You Have About Your Health or Care? My agreed to come for mtg on Tuesday and hope it will work out. I need to go back to my routine. -- What Questions Do You Have About Your Health or Care? Do you think I have to keep taking this Z drug (Zyprexa)? -- What Information Would Help Us Give You More Personalized Care? I need more sleep. 4-5 hours of sleep is not enough. -- Goal: Fall Prevention-Safe Patient Handling Outcome: Ongoing (Interventions Implemented as Appropriate) 08/11/17 1030 Restraint Interventions Safety Promotion/Fall Prevention fall prevention program maintained;nonskid shoes/slippers when out of bed;safety round/check completed Activity Activity Type up ad casey Activity Assistance Provided independent Positioning Body Position independent Daily Care Interventions Self-Care Promotion independence encouraged Gibbs Fall Risk History of Falling 0 Secondary Diagnosis 15 Ambulatory Aids 0 Intravenous Therapy/Heparin/Saline Lock 0 Gait/Transferring 0 Mental Status 0 Score 15 OTHER Gibbs Fall Risk Low Goal: Infection Control Outcome: Ongoing (Interventions Implemented as Appropriate) 08/11/17 1030 Safety Interventions Isolation Precautions standard precautions maintained Infection Prevention environmental surveillance performed;single patient room provided Coping Strategies Supportive Measures active listening utilized;goal setting facilitated;positive reinforcement provided;verbalization of feelings encouraged;self-responsibility promoted Goal: Discharge Needs Assessment Outcome: Ongoing (Interventions Implemented as Appropriate) 08/11/17 1030 Discharge Needs Assessment Concerns To Be Addressed mental health concerns;coping/stress concerns Readmission Within The Last 30 Days no previous admission in last 30 days Equipment Needed After Discharge none Current Discharge Risk psychiatric illness Discharge Disposition still a patient Current Health Outpatient/Agency/Support Group Needs outpatient psychiatric care (specify) Anticipated Changes Related to Illness none Activity/Self Care Review of Systems Equipment Currently Used at Home none Living Environment Transportation Available family or friend will provide Goal: Interdisciplinary Rounds/Family Conf Outcome: Ongoing (Interventions Implemented as Appropriate) 08/11/17 1030 Interdisciplinary Rounds/Family Conf Participants family independence case manager;nursing;patient;social work/services;physician Problem: Manic Behavior/Episode (Adult) Goal: Mood Equilibrium Patient will demonstrate the desired outcomes by discharge/transition of care. Outcome: Ongoing (Interventions Implemented as Appropriate) 08/11/17 1030 Manic Behavior/Episode (Adult) Mood Equilibrium making progress toward outcome Goal: Impulse Control Patient will demonstrate the desired outcomes by discharge/transition of care. Outcome: Ongoing (Interventions Implemented as Appropriate) 08/11/17 1030 Manic Behavior/Episode (Adult) Impulse Control making progress toward outcome Med Student Progress Note - Linda Burnett E - 08/11/2017 8:24 AM EDT Psychiatry Inpatient - Progress Note 08/11/2017 ID: Mojgan Lipscomb??is a 66 y.o.??male??with history of biolar I disorder admitted on 08/06/2017??for brayan (1 month of symptoms). Hospital day 5. Current Working Primary Diagnosis: Bipolar disorder w/ current brayan w/o psychotic features Pertinent medical issues being addressed: HLD Prostate cancer Hypothyroidism Interval History: (1,1,4) Per nursing report, patient slept 7.5 hours, depression is rated at 2/10 (10 being the worst), and anxiety is rated at 2/10 (10 being the worst). -Mojgan reports that yesterday he had a good day overall. He has been spending time on the computer and making plans and knows that he needs to slow down. -He feels that he is ~80% back to his baseline self and has noticed significant improvement in racing thoughts since arriving at the hospital, though brain is still moving fast. -He spoke about his master plan for making his understand her contribution to his symptoms. He is looking forward to the family meeting tomorrow and anticipating discharge on that date. -Collateral from his revealed that she is worried about him returning to the home given his violent/anxious state prior to coming inpatient. Will address these concerns at family meeting tomorrow. -Mojagn notes that he is on board with taking the full (10mg) zyprexa dose once he returns home. No acute safety issues. Patient denies SI/HI. Review of Systems: (0,1,2) Constitutional: NAD HEENT: NCAT CV: ??No chest pain, no palpitations and no COTA Respiratory: ??Breathing non-labored GI: No N/V/D/C Neuro: Sleep fair Psych: See above Physical Exam: (1,6,9) Vitals (24hr Range): Temp: [36.5 ??C (97.7 ??F)] Resp: [17] Heart Rate: [90] BP: (131)/(66) SpO2: [96 %] Patient Vitals for the past 168 hrs: Weight 08/07/17 0849 78.1 kg (172 lb 2.9 oz) 08/06/17 2000 77.2 kg (170 lb 3.1 oz) Mental Status Exam: ?? Appearance: Casually dressed, fair grooming, sitting in no apparent discomfort ?? Behavior: No psychomotor agitation or slowing, appropriate eye contact, cooperative with interview ?? Speech: Normal rate, pitch, and prosody. Volume appropriate for setting. ?? Language: Appropriate, Kuwaiti-speaking ?? Mood: Not good ?? Affect: Non-congruent. Seems lively and relatively bright. Somewhat irritable. ?? Thought Process: Linear, logical, and goal-directed. ?? Associations: Tight and intact. ?? Thought Content: No delusions or paranoid ideas, no suicidal and no homicidal ideation ?? Perception: No audio, visual, or tactile hallucinations. Does not appear to be responding to internal stimuli ?? Orientation: Person, place, time/date and situation ?? Attention/Concentration: Intact to interview and discussion regarding care. ?? Cognition: Grossly intact ?? Memory: Remote and recent memory intact ?? Fund of Knowledge: Appears appropriate for level of education. ?? Insight: Limited. Knows that he needs to continue to rest in order to recover from brayan. Can tell that he is over the hump ?? Judgment: Limited Everly Suicide Risk Scale: Suicide Screening Suicidal Thoughts: Have you had any actual thoughts of killing yourself?: No Suicide Behavior Question: Have you ever done anything, started to do anything, or prepared to do anything to end your life?: No Current Medications: Scheduled: ??? OLANZapine 10 mg Oral Nightly ??? clonazePAM 1 mg Oral Nightly ??? atorvastatin 10 mg Oral QPM ??? levothyroxine 75 mcg Oral QAM ??? lamoTRIgine 150 mg Oral Nightly ??? tamsulosin 0.8 mg Oral Nightly PRN: sodium chloride, OLANZapine zydis, clonazePAM, hydrOXYzine, polyethylene glycol (MIRALAX)oral powder, senna-docusate, acetaminophen Labs: Last 24 Hours: No results found for this or any previous visit (from the past 24 hour(s)). Psychiatry Labs: Preg: No results found for: HCGQUAL, HCGQUANT Heme: No results found for: WBC, HGB, HCT, PLATELET, MCV, NEUTROABS Lab Results Component Value Date HA1C 5.6 08/10/2017 Chem: Lab Results Component Value Date GLUCFASTING 101 (H) 08/10/2017 No results found for: CALCIUM, MAGNESIUM, PHOS LFTs: No results found for: ALT, AST, GGT, ALKPHOS, BILITOT, AMMONIA Coags: No results found for: PTT, PT, INR Thyroid: Lab Results Component Value Date TSH 4.60 (H) 08/06/2017 Lipids and HgbA1C: Lab Results Component Value Date CHLPL 169 08/10/2017 HDL 49 08/10/2017 CHOLHDL 3.4 08/10/2017 LDLCHOL 84 08/10/2017 TRIG 182 08/10/2017 Lab Results Component Value Date HA1C 5.6 08/10/2017 Vit Lvls: Lab Results Component Value Date [id number] 08/06/2017 SFOLATE >20.0 08/06/2017 UA: No results found for: GLUCOSEU, KETONESUA, PROTEINUADIP, BLOODUADIP, LEUKOESTERUA, NITRATEUA, WBCUA (May not represent most recent UA results. See eD-H labs for more details.) Tox: No results found for: ETHANOL, ACTMNPHEN, SALICYLATE, LEAD No results found for: UDAUSCREEN Rx Lvls: No results found for: LITHIUM, CARBAMAZEPIN, VALPROATE, LAMOTRIGINE, CLOZAPINE Assessment: Mojgan Lipscomb??is a 66 y.o.??male??with a history of bipolar disorder (last manic episode in 2003)??admitted on 08/06/2017??for brayan in the setting of beginning prednisone and Zytig for treatment of prostate cancer. ?? Current Working Primary Diagnosis:??Bipolar disorder w/ current brayan w/o psychotic features. ? Current Clinical Assessment: Appears to be closer to baseline from manic symptoms on intake. Concernis whether he will continue to take zyprexa on discharge given his skepticism. Low suicide risk and improving back toward baseline daily. ? Current Suicide Assessment: Patient??at increased risk from baseline, but not at increased risk compared to the general psychiatric inpatient population given he is denying suicidal ideations, is future oriented, has fair insight, and is actively seeking help. Plan: # Bipolar Disorder - current manic episode -Continue Lamictal 150mg QD -Continue Zyprexa 10mg QHS (encouraged patient to take this full dose) ? # Anxiety - continue clonazepam 1mg QHS - continue clonazepam 1mg QHS PRN - continue to taper - (home clonazepam 2mg QHS) ? # Prostate Ca -D/c'ed Zytiga and Leuprolide-- appreciate heme-onc rec's -Patient has outpatient f/up with new heme onc in [facility] on 08/23. -Flomax 10mg QHS ? #Other medical issues -Hypothyroidism: synthroid 75 mcg qD -HLD: atorvastatin 10mg qD -Congestion: NaCl spray BID PRN ?? # Disposition: -After stabilization, patient expected to return home. Additional Information: Reasons for continued hospitalization: Warrants ongoing inpatient admission for safety, stabilization, and any other therapeutic intervention that could conceivably improve the patient's condition (including medication management, group psychotherapy, establishing adequate outpatient care). Outpatient Care: Provider Name Date Contacted By Treatment Team Psychiatric prescriber David Fleming MD 08/08/2017 Therapist N/A N/A PCP Celio Sanders MD Patient Instruction/Education Provided: Patient provided verbal instructions during rounds regardingthe treatment plan. I have reviewed and agree with the multidisciplinary treatment plan. I certify that the patient requires [x] inpatient care for psychiatric treatment that could reasonably be expected to improve the patient's condition and/or diagnostic study. Signed By: Linda Burnett 08/11/17 Plan of Care - Florence Rosado RN - 08/10/2017 10:09 PM EDT Problem: Patient Care Overview Goal: Plan of Care Review Outcome: Ongoing (Interventions Implemented as Appropriate) 08/10/172146 Coping/Psychosocial Plan Of Care Reviewed With patient Plan of Care Review Progress improving OUTCOME EVALUATION NOTE: OUTCOME SUMMARY: Pt noted to be more calmer and cooperative. Rated depression 2, anxiety 2, denies safety concerns. Speech is clear and in normal tone. Noted to be utilizing computer and made few phone calls. He went to groups. He stated that CBT was helpful. Took a shower and did laundry. He agreed to take full dose of olanzapine although he requested for his choices of home medication- klonopin and benadryl. PLAN MOVING FORWARD: Medication education, attend groups, discharge planning INDIVIDUALIZED FALL PREVENTION INTERVENTIONS: Patient-specific fall risk factors per assessment: [current deficits]: Low fall risk Assistance [level of assistance required for transfers and ambulation]: indp Supervision [direct monitoring required during toileting and ADLs]: ETG Surveillance [continuous indirect monitoring]: q 15 min checks Patient-specific fall prevention interventions for sensory deficits provided, if applicable: [X] No CPG GOAL OUTCOME EVALUATION: Goal: Individualization & Mutuality Outcome: Ongoing (Interventions Implemented as Appropriate) 08/10/172146 Individualization Patient Specific Preferences I think I want to go back to 2 klonopin and 2 bendryl. This was prescribed by Patient Specific Goals get organized and plan for my discharge on tuesday. Patient Specific Interventions reassurance, medication education Mutuality/Individual Preferences What Anxieties, Fears or Concerns Do You Have About Your Health or Care? My agreed to come for mtg on Tuesday and hope it will work out. I need to go back to my routine. What Questions Do You Have About Your Health or Care? Do you think I have to keep taking this Z drug (Zyprexa)? What Information Would Help Us Give You More Personalized Care? I need more sleep. 4-5 hours of sleep is not enough. Goal: Fall Prevention-Safe Patient Handling Outcome: Ongoing (Interventions Implemented as Appropriate) 08/10/172146 Restraint Interventions Safety Promotion/Fall Prevention fall prevention program maintained;nonskid shoes/slippers when out of bed;safety round/check completed Activity Activity Type up ad casey Activity Assistance Provided independent Assistive Device Utilized none Positioning Body Position independent Daily Care Interventions Self-Care Promotion independence encouraged Goal: Infection Control Outcome: Ongoing (Interventions Implemented as Appropriate) 08/10/172146 Safety Interventions Isolation Precautions standard precautions maintained Infection Prevention environmental surveillance performed;rest/sleep promoted;single patient room provided Coping Strategies Supportive Measures active listening utilized;goal setting facilitated;positive reinforcement provided;self-care encouraged;self-responsibility promoted Goal: Discharge Needs Assessment Outcome: Ongoing (Interventions Implemented as Appropriate) 08/10/172146 Discharge Needs Assessment Concerns To Be Addressed mental health concerns;coping/stress concerns;medication concerns;relationship concerns Readmission Within The Last 30 Days no previous admission in last 30 days Provider Choice List(s) Given no Equipment Needed After Discharge none Current Discharge Risk psychiatric illness Discharge Disposition still a patient Current Health Outpatient/Agency/Support Group Needs outpatient psychiatric care (specify) Anticipated Changes Related to Illness none Activity/Self Care Review of Systems Equipment Currently Used at Home none Living Environment Transportation Available car Goal: Interdisciplinary Rounds/Family Conf Outcome: Ongoing (Interventions Implemented as Appropriate) 08/10/172146 Interdisciplinary Rounds/Family Conf Participants patient;physician;nursing Problem: Manic Behavior/Episode (Adult) Intervention: Promote/Support Mood Equilibrium 08/10/172146 Cognitive Interventions Sensory Stimulation Regulation auditory stimulation minimized;quiet environment promoted;visual stimulation minimized Coping Strategies Supportive Measures active listening utilized;goal setting facilitated;positive reinforcement provided;self-care encouraged;self-responsibility promoted Goal: Mood Equilibrium Patient will demonstrate the desired outcomes by discharge/transition of care. Outcome: Ongoing (Interventions Implemented as Appropriate) 08/10/172146 Manic Behavior/Episode (Adult) Mood Equilibrium making progress toward outcome Goal: Impulse Control Patient will demonstrate the desired outcomes by discharge/transition of care. Outcome: Ongoing (Interventions Implemented as Appropriate) 08/10/172146 Manic Behavior/Episode (Adult) Impulse Control making progress toward outcome Plan of Care - Luciano Carey RN - 08/10/2017 1:19 PM EDT Problem: Patient Care Overview Goal: Plan of Care Review Outcome: Ongoing (Interventions Implemented as Appropriate) 08/09/171912 Coping/Psychosocial Plan Of Care Reviewed With patient Plan of Care Review Progress improving OUTCOME EVALUATION NOTE: OUTCOME SUMMARY: Patient wasa pleasant and cooperative today. He denied suicidal ideation. He was visible on the unit, socializing with his peers. He spent some time on the computer. He did not seem confused today. PLAN MOVING FORWARD: Encourage patient to take his full dose of zyprexa. Continue current medications. Probable dischargetomorrow INDIVIDUALIZED FALL PREVENTION INTERVENTIONS: Patient-specific fall risk factors per assessment: [current deficits]: Secondary diagnosis Assistance [level of assistance required for transfers and ambulation]: independent Supervision [direct monitoring required during toileting and ADLs]: independent Surveillance [continuous indirect monitoring]: 15 minute checks Patient-specific fall prevention interventions for sensory deficits provided, if applicable: [X] N/A CPG GOAL OUTCOME EVALUATION: Med Student Progress Note - Linda Burnett - 08/10/2017 8:02 AM EDT Psychiatry Inpatient - Progress Note 08/10/2017 ID: Mojgan Lipscomb is a 66 y.o. male with history of biolar I disorder admitted on 08/06/2017 for brayan(1 month of symptoms). Hospital day 4. Current Working Primary Diagnosis: Bipolar disorder w/ current brayan w/o psychotic features Pertinent medical issues being addressed: HLD Prostate cancer Hypothyroidism Interval History: (1,1,4) Per nursing report, patient slept 7.25 hours, rated his brayan as 6/10 depression is rated at 5/10 (10 being the worst), and anxiety is rated at 5/10 (10 being the worst). -Mojgan noted that he feels like he is over the hump though still with a lot of plans. He mailed letters yesterday to his relatives (not his ). He enjoyed walking with the other inpatients and otherwise spent most of the day resting. -He is c/o of a mild headache this AM as he did not sleep well. He still feels that he needs to restbut is concerned with the logistics of going home. Would prefer to be home alone with his dog-- doesnot know if this is possible regarding and family situation. Feels that he would be safe at home with regards to suicidal ideation. -He also has some concerns about his 'sleep protocol'. He is not convinced that the Zyprexa is helpful. He took half the dose yesterday and had to be convinced to take the other 1/2 later in the day. No acute safety issues. Patient denies SI/HI. Review of Systems: (0,1,2) Constitutional: NAD HEENT: NCAT CV: No chest pain, no palpitations and no COTA Respiratory: Breathing non-labored GI: No N/V/D/C Neuro: Sleep fair Psych: See above Physical Exam: (1,6,9) Vitals (24hr Range): Temp: [36.5 ??C (97.7 ??F)] Resp: [16] Heart Rate: [90] BP: (126)/(74) SpO2: [97 %] Patient Vitals for the past 168 hrs: Weight 08/07/17 0849 78.1 kg (172 lb 2.9 oz) 08/06/171999 77.2 kg (170 lb 3.1 oz) Musculoskeletal System: normal gait and balance, ambulates independently and no atrophy?? Mental Status Exam: Appearance: Casually dressed, fair grooming, sitting in no apparent discomfort Behavior: No psychomotor agitation or slowing, appropriate eye contact, cooperative with interview Speech: Normal rate, pitch, and prosody. Volume appropriate for setting. Language: Appropriate, Kuwaiti-speaking Mood: Not good Affect: Non-congruent. Seems lively and relatively bright. Somewhat irritable. Thought Process: Linear, logical, and goal-directed. Associations: Tight and intact. Thought Content: No delusions or paranoid ideas, no suicidal and no homicidal ideation Perception: No audio, visual, or tactile hallucinations. Does not appear to be responding to internal stimuli Orientation: Person, place, time/date and situation Attention/Concentration: Intact to interview and discussion regarding care. Cognition: Grossly intact Memory: Remote and recent memory intact Fund of Knowledge: Appears appropriate for level of education. Insight: Limited. Knows that he needs to continue to rest in order to recover from brayan. Can tell that he is over the hump Judgment: Limited Everly Suicide Risk Scale: Suicide Screening Suicidal Thoughts: Have you had any actual thoughts of killing yourself?: No Suicide Behavior Question: Have you ever done anything, started to do anything, or prepared to do anything to end your life?: No Current Medications: Scheduled: ??? OLANZapine 10 mg Oral Nightly ??? clonazePAM 1 mg Oral Nightly ??? atorvastatin 10 mg Oral QPM ??? levothyroxine 75 mcg Oral QAM ??? lamoTRIgine 150 mg Oral Nightly ??? tamsulosin 0.8 mg Oral Nightly PRN: sodium chloride, OLANZapine zydis, clonazePAM, hydrOXYzine, polyethylene glycol (MIRALAX)oral powder, senna-docusate, acetaminophen Labs: Last 24 Hours: No results found for this or any previous visit (from the past 24 hour(s)). Psychiatry Labs: Preg: No results found for: HCGQUAL, HCGQUANT Heme: No results found for: WBC, HGB, HCT, PLATELET, MCV, NEUTROABS No results found for: HA1C, SEDRATE Chem: No results found for: NA, K, CL, CO2, BUN, GLUCOSE, GLUCFASTING No results found for: CALCIUM, MAGNESIUM, PHOS LFTs: No results found for: ALT, AST, GGT, ALKPHOS, BILITOT, AMMONIA Coags: No results found for: PTT, PT, INR Thyroid: Lab Results Component Value Date TSH 4.60 (H) 08/06/2017 Lipids and HgbA1C: No results found for: CHLPL, HDL, CHOLHDL, LDLCHOL, LDLDIRECT, TRIG No results found for: HA1C Vit Lvls: Lab Results Component Value Date [id number] 08/06/2017 SFOLATE >20.0 08/06/2017 UA: No results found for: GLUCOSEU, KETONESUA, PROTEINUADIP, BLOODUADIP, LEUKOESTERUA, NITRATEUA, WBCUA (May not represent most recent UA results. See eD-H labs for more details.) Tox: No results found for: ETHANOL, ACTMNPHEN, SALICYLATE, LEAD No results found for: UDAUSCREEN Rx Lvls: No results found for: LITHIUM, CARBAMAZEPIN, VALPROATE, LAMOTRIGINE, CLOZAPINE Assessment: Mojgan Lipscomb is a 66 y.o. male with a history of bipolar disorder (last manic episode in 2003) admitted on 08/06/2017 for brayan in the setting of beginning prednisone and Zytig for treatment of prostatecancer. Current Working Primary Diagnosis: Bipolar disorder w/ current brayan w/o psychotic features. ?? Current Clinical Assessment: Appears to be closer to baseline from manic symptoms on intake. Concernis whether he will continue to take zyprexa on discharge given his skepticism. Low suicide risk and improving back toward baseline daily. ?? Current Suicide Assessment: Patient??at increased risk from baseline, but not at increased risk compared to the general psychiatric inpatient population given he is denying suicidal ideations, is future oriented, has fair insight, and is actively seeking help. Plan: # Bipolar Disorder - current manic episode -Continue Lamictal 150mg QD -Continue Zyprexa 10mg QHS (encouraged patient to take this full dose) ? # Anxiety - continue clonazepam 1mg QHS - continue clonazepam 1mg QHS PRN - continue to taper - (home clonazepam 2mg QHS) ? # Prostate Ca -D/c'ed Zytiga and Leuprolide-- appreciate heme-onc rec's -Patient has outpatient f/up with new heme onc in [facility] on 08/23. -Flomax 10mg QHS ?? #Other medical issues -Hypothyroidism: synthroid 75 mcg qD -HLD: atorvastatin 10mg qD -Congestion: NaCl spray BID PRN # Disposition: -After stabilization, patient expected to return home. Additional Information: Reasons for continued hospitalization: Warrants ongoing inpatient admission for safety, stabilization, and any other therapeutic intervention that could conceivably improve the patient's condition (including medication management, group psychotherapy, establishing adequate outpatient care). Outpatient Care: Provider Name Date Contacted By Treatment Team Psychiatric prescriber David Fleming MD 08/08/2017 Therapist PCP Celio Sanders MD Patient Instruction/Education Provided: Patient provided verbal instructions during rounds regardingthe treatment plan. I have reviewed and agree with the multidisciplinary treatment plan. I certify that the patient requires [x] inpatient care for psychiatric treatment that could reasonably be expected to improve the patient's condition and/or diagnostic study. Signed By: Linda Burnett 08/10/17 Plan of Care - Ramses Vera RN - 08/09/2017 7:11 PM EDT Problem: Patient Care Overview Goal: Plan of Care Review Outcome: Unable to achieve outcome by discharge 08/09/171912 Coping/Psychosocial Plan Of Care Reviewed With patient Plan of Care Review Progress improving OUTCOME EVALUATION NOTE: OUTCOME SUMMARY: Pt has been cooperative and has not needed any redirection. Reports he is feeling less confused and less disorganized. Reports that he continues to have racing thoughts and ' grand schemes'. Speech is not pressured or loud but is slightly slurred. Reprted that he is feeling sensitive to light and that he is easily overstimulated. Pt on his own suggested that he maintain himself in a calm environment and retreated to his room. Continues to request that he be able to speak with his hat steamer who had a phone conversation withhis . Curious about what his 's thoughts are on his current situation. He has not initiated any phone contact with his since admission, Earlier in the shift staff walked him down to purchase stamps and he mailed 4 letters to various family members. Pt denies SI/HI. No safety concerns. Appetite is good. Reports depression 2/10; manic symptoms 7/10 and anxiety 4/10. addendum: At bedtime, pt only would take 5 mg of Olanzapine. He requested that he review his medication protocol with team tomorrow. Came out to the desk an hour later and was irritable. He agreed to take the remaining 5 mg of his scheduled HS Zyprexa. He made clear again his desire to talk with teamregarding his medsand to discuss his discharge. Pt feels he is still too manic to be discharged at the end of this week. PLAN MOVING FORWARD: Maintain a calm and quiet environment. Medication management. Offer support and reassurance. INDIVIDUALIZED FALL PREVENTION INTERVENTIONS: Patient-specific fall risk factors per assessment: [current deficits]: low Assistance [level of assistance required for transfers and ambulation]: independent Supervision [direct monitoring required during toileting and ADLs]: independent Surveillance [continuous indirect monitoring]: 15 min checks; Purposeful rounding Patient-specific fall prevention interventions for sensory deficits provided, if applicable: [X] N/A CPG GOAL OUTCOME EVALUATION: Plan of Care - Luciano Carey RN - 08/09/2017 1:48 PM EDT Problem: Patient Care Overview Goal: Plan of Care Review Outcome: Ongoing (Interventions Implemented as Appropriate) 08/08/17 1819 Coping/Psychosocial Plan Of Care Reviewed With patient Plan of Care Review Progress improving OUTCOME EVALUATION NOTE: OUTCOME SUMMARY: Patient was pleasant and cooperative today. He denied suicidal ideation. His affect was full range. He seemed more organized today. He did not seem confused. He spent time on the computer and resting on his bed. PLAN MOVING FORWARD: Continue current medications. Encourage lower level groups. INDIVIDUALIZED FALL PREVENTION INTERVENTIONS: Patient-specific fall risk factors per assessment: [current deficits]: Secondary diagnosis Assistance [level of assistance required for transfers and ambulation]: independent Supervision [direct monitoring required during toileting and ADLs]: independent Surveillance [continuous indirect monitoring]: 15 minute checks Patient-specific fall prevention interventions for sensory deficits provided, if applicable: [X] N/A CPG GOAL OUTCOME EVALUATION: Med Student Progress Note - Linda Burnett - 08/09/2017 9:17 AM EDT Psychiatry Inpatient - Progress Note 08/09/2017 ID: Mojgan Lipscomb is a 66 y.o. male with history of biolar I disorder admitted on 08/06/2017 for brayan(1 month of symptoms). Hospital day 3. Current Working Primary Diagnosis: Bipolar disorder w/ current brayan w/o psychotic features Pertinent medical issues being addressed: HLD Prostate cancer Interval History: (1,1,4) Per nursing report, patient slept 7.75 hours, depression is rated at a little and anxiety is ratedat a little (10 being the worst). -Collateral obtained yesterday from treating psychiatrist Dr. David Fleming and Yaneth. At baseline, patient is calm and collected and relatively introverted w/ easygoing personality. shared timeline of progression of symptoms including starting prednisone and zytiga on June 19 and beginning to see manic symptoms (changes in personality, increased profanity use and intimitating behavior) by June 27. She stated that things were really bad by July 17 when they returned from [place] (drove back across country). -Patient states that he is feeling a bit foggy this morning. He knows that he needs to continue toget rest. He attributes fogginess to melatonin use which he would like to remove from his sleep protocol -He is amenable to discharge on 08/12 though worried about getting back home No acute safety issues. Patient denies SI/HI. Review of Systems: (0,1,2) Constitutional: NAD HEENT: NCAT CV: No chest pain, no palpitations and no COTA Respiratory: Breathing non-labored GI: No N/V/D/C Neuro: Sleep fair Psych: See above Physical Exam: (1,6,9) Vitals (24hr Range): Temp: [36.4 ??C (97.5 ??F)] Resp: [17] Heart Rate: [84] BP: (111)/(67) SpO2: -- Patient Vitals for the past 168 hrs: Weight 08/07/17 0849 78.1 kg (172 lb 2.9 oz) 08/06/171999 77.2 kg (170 lb 3.1 oz) Musculoskeletal System: normal gait and balance, ambulates independently and no atrophy Mental Status Exam: Appearance: Casually dressed, fair grooming, sitting in no apparent discomfort Behavior: No psychomotor agitation or slowing, appropriate eye contact, cooperative with interview Speech: Normal rate, pitch, and prosody. Volume appropriate for setting. Language: Appropriate, Kuwaiti-speaking Mood: I need to get more rest Affect: euphoric, not irritable. Labile w/ occasional crying episodes when discussing dog. Thought Process: Linear, logical, and goal-directed. Associations: Tight and intact. Thought Content: No delusions or paranoid ideas, no suicidal and no homicidal ideation Perception: No audio, visual, or tactile hallucinations. Does not appear to be responding to internal stimuli Orientation: Person, place, time/date and situation Attention/Concentration: Intact to interview and discussion regarding care. Cognition: Grossly intact Memory: Remote and recent memory intact Fund of Knowledge: Appears appropriate for level of education. Insight: Limited. Knows that he needs to continue to rest in order to recover from manic symptoms and able to state that he is improving and that thoughts are slowing down. Judgment: Limited Everly Suicide Risk Scale: Suicide Screening Suicidal Thoughts: Have you had any actual thoughts of killing yourself?: No Suicide Behavior Question: Have you ever done anything, started to do anything, or prepared to do anything to end your life?: No Current Medications: Scheduled: ??? OLANZapine 10 mg Oral Nightly ??? clonazePAM 1 mg Oral Nightly ??? atorvastatin 10 mg Oral QPM ??? levothyroxine 75 mcg Oral QAM ??? lamoTRIgine 150 mg Oral Nightly ??? tamsulosin 0.8 mg Oral Nightly PRN: OLANZapine zydis, clonazePAM, hydrOXYzine, polyethylene glycol (MIRALAX)oral powder, senna-docusate, acetaminophen Labs: Last 24 Hours: No results found for this or any previous visit (from the past 24 hour(s)). Psychiatry Labs: Preg: No results found for: HCGQUAL, HCGQUANT Heme: Lab Results Component Value Date WBC 7.1 08/06/2017 HGB 14.3 08/06/2017 HCT 40.9 08/06/2017 PLATELET 267 08/06/2017 MCV 92.1 08/06/2017 NEUTROABS 3.99 08/06/2017 No results found for: HA1C, SEDRATE Chem: Lab Results Component Value Date NA 143 08/06/2017 K 3.7 08/06/2017 CL 100 08/06/2017 CO2 31 08/06/2017 BUN 20 08/06/2017 GLUCOSE 95 08/06/2017 Lab Results Component Value Date CALCIUM 9.5 08/06/2017 LFTs: No results found for: ALT, AST, GGT, ALKPHOS, BILITOT, AMMONIA Coags: No results found for: PTT, PT, INR Thyroid: Lab Results Component Value Date TSH 4.60 (H) 08/06/2017 Lipids and HgbA1C: No results found for: CHLPL, HDL, CHOLHDL, LDLCHOL, LDLDIRECT, TRIG No results found for: HA1C Vit Lvls: Lab Results Component Value Date [id number] 08/06/2017 SFOLATE >20.0 08/06/2017 UA: Lab Results Component Value Date GLUCOSEU Negative 08/06/2017 KETONESUA 5 (A) 08/06/2017 PROTEINUADIP 30 (A) 08/06/2017 BLOODUADIP Negative 08/06/2017 LEUKOESTERUA Negative 08/06/2017 NITRATEUA Negative 08/06/2017 WBCUA 1 08/06/2017 (May not represent most recent UA results. See eD-H labs for more details.) Tox: Lab Results Component Value Date ETHANOL <100 08/06/2017 No results found for: UDAUSCREEN Rx Lvls: No results found for: LITHIUM, CARBAMAZEPIN, VALPROATE, LAMOTRIGINE, CLOZAPINE Assessment: Mojgan Lipscomb is a 66 y.o. male with a history of bipolar disorder (last manic episode in 2003) admitted on 08/06/2017 for brayan in the setting of beginning prednisone and zytig for treatment of prostatecancer. Current Working Primary Diagnosis: Bipolar disorder w/ current brayan w/o psychotic features Current Clinical Assessment: Continues to display manic features including racing thoughts. Sleepingbetter. Emotionally labile Current Suicide Assessment: Patient at increased risk from baseline, but not at increased risk compared to the general psychiatric inpatient population given he is denying suicidal ideations, is futureoriented, has fair insight, and is actively seeking help Plan: # Bipolar Disorder - current manic episode -Continue Lamictal 150mg QD -Continue Zyprexa 10mg QHS -PRN Zyprexa swithced to PRN Zydis 5mg BID PRN ?? # Anxiety - continue Clonazepam 1mg QHS - continue clonazepam 1mg QHS PRN - continue to taper - (home clonazepam 2mg QHS) ?? # Prostate Ca -Heme onc consulted for recs re Zytiga and Leuprolide. Will d/c both at this time. Patient has outpatient f/up with new heme onc in [facility] on 08/23. #Other medical issues -Hypothyroidism: synthroid 75 mcg qD -HLD: atorvastatin 10mg qD # Disposition: -After stabilization, patient expected to return home. Additional Information: Reasons for continued hospitalization: Warrants ongoing inpatient admission for safety, stabilization, and any other therapeutic intervention that could conceivably improve the patient's condition (including medication management, group psychotherapy, establishing adequate outpatient care). Outpatient Care: Provider Name Date Contacted By Treatment Team Psychiatric prescriber Therapist PCP Celio Sanders MD Patient Instruction/Education Provided: Patient provided verbal instructions during rounds regardingthe treatment plan. I have reviewed and agree with the multidisciplinary treatment plan. I certify that the patient requires [x] inpatient care for psychiatric treatment that could reasonably be expected to improve the patient's condition and/or diagnostic study. Signed By: Linda Burnett 08/09/17 Plan of Care - Ramses Vera RN - 08/08/2017 6:22 PM EDT Problem: Patient Care Overview Goal: Plan of Care Review Outcome: Ongoing (Interventions Implemented as Appropriate) 08/08/17 9869 Coping/Psychosocial Plan Of Care Reviewed With patient Plan of Care Review Progress improving OUTCOME EVALUATION NOTE: OUTCOME SUMMARY: Pt has been pleasant and cooperative. Is confused regarding the day and did not remember getting supper this evening. He is not irritable. Tearful at times especially when talking about his and past episode of brayan in 2003 in which he states his became afraid of him. Has composed letters to his and his mother and sister in law that he wishes to send. Pt attended wrap up. 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 Understands some of his 's concerns and is hoping he will be able to have contact with her afterhe is more stable. Pt is not grandiose. Does report racing thoughts, disorganization and confusion. Compliant with medications. Took a shower this evening. Has been appropriate with peers and not needing any redirection. PLAN MOVING FORWARD: Goal setting. Medication management/education. Discharge planning INDIVIDUALIZED FALL PREVENTION INTERVENTIONS: Patient-specific fall risk factors per assessment: [current deficits]: low Assistance [level of assistance required for transfers and ambulation]: independent Supervision [direct monitoring required during toileting and ADLs]: independent Surveillance [continuous indirect monitoring]: 15 min chcks Patient-specific fall prevention interventions for sensory deficits provided, if applicable: [X] N/A CPG GOAL OUTCOME EVALUATION: Plan of Care - Luciano Carey RN - 08/08/2017 1:46 PM EDT Problem: Patient Care Overview Goal: Plan of Care Review Outcome: Ongoing (Interventions Implemented as Appropriate) 08/07/171916 Coping/Psychosocial Plan Of Care Reviewed With patient Plan of Care Review Progress progress toward functional goals as expected OUTCOME EVALUATION NOTE: OUTCOME SUMMARY: Patient was pleasant and cooperative this morning. He denied suicidal ideation. His affect was flat.He seemed disorganized. He was disoriented to date. He was irritable at times. PLAN MOVING FORWARD: Increase HS zyprexa dose. Encourage being out of room and socialization. INDIVIDUALIZED FALL PREVENTION INTERVENTIONS: Patient-specific fall risk factors per assessment: [current deficits]: Secondary diagnosis Assistance [level of assistance required for transfers and ambulation]: independent Supervision [direct monitoring required during toileting and ADLs]: independent Surveillance [continuous indirect monitoring]: 15 minute checks Patient-specific fall prevention interventions for sensory deficits provided, if applicable: [X] N/A CPG GOAL OUTCOME EVALUATION: Initial Assessments - Graeme Ford RN - 08/08/2017 8:09 AM EDT Initial Patient Assessment GRAEME FORD RN reviewed record and discussed patient with Care Team on 08/08/2017. Introduced/reviewed role; services accepted. Mojgan Lipscomb is a 66 y.o. year old male (1950) presenting to [address] [place] [address] for treatment with Bipolar disorder, current episode manic without psychotic features, moderate [F31.12] Anticipated Length Of Stay (If known): unknown Patient/Caregiver Goals of Treatment: I need a protocol in place for my sleep Source of Information: Pt supplied/corraborated, history and physical REASON for HOSPITALIZATION: worsening manic symptoms in the context of steroid use Medical/Behavioral Health History: has Foreign travel; Prostate cancer metastatic to intrapelvic lymph node; 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;Bipolar II disorder; Hypothyroidism; Hyperlipidemia; Hx of appendectomy; Hx laparoscopic cholecystect alton; Toxic encephalopathy; and Bipolar disorder, current episode manic without psychotic features, moderate on his problem list. Current treaters: Current Mental Health Prescriber: David Fleming of [facility] Current Therapist: David Sharma [facility] PCP: Celio Sanders MD Hospitalizations Within the Past 30 Days: none known PERTINENT INFO FROM H & P: Mojgan is a 66yo male with a history of bipolar disorder and prostate cancer who arrived at [facility] by taxi from [facility] after spending the week in [facility] for manic symptomsand being discharged without a transfer to a psychiatric facility. Mojgan had his first manic episode in 2003. Since then his brayan has been well controlled with lamictal. He has had some minor manic episodes since then, usually associated with him experimenting with going off of his medication, but none have required hospitalization. In June 2017, while he and his were wintering in [place], an oncologist recommended that he try the combination of Zytiga and Prednisone for his prostate cancer. Since then he has been acutely manic. ADVANCE DIRECTIVES: Information provided as needed HEALTH /PRESCRIPTION COVERAGE: Current Effective Coverage: Payor/Plan Subscr Sex Relation Sub. Ins. ID Effective Group Num 1. MEDICARE - [place]* MOJGAN LIPSCOMB 1950 Male Self [id number] [birth year][address] [place] [address] [facility] 2. - MOJGAN LIPSCOMB 1950 Male [id number] 05[birth year][address] Prescription Coverage: Confirmed Preferred Pharmacy: [facility] - [place], [place] - [address] [place] [address] [address] [facility] [id number] HOME ENVIRONMENT / SOCIAL & FAMILY SUPPORTS/COMMUNITY RESOURCES:(living situation, family constellation, Caregivers, current use & knowledge of community resources, etc.) Extended Emergency Contact Information Primary Emergency Contact: Yaneth Lipscomb Address: [address] [place] [address] [facility] Relation: Spouse PRIMARY CARE PHYSICIAN: Celio Sanders MD [address] / [facility] [address] MENTAL HEALTH PRESCRIBER: Dr. David Fleming Current Decision-Making Capacity: (Level of Alertness/Orientation, dementia/ cognitive deficit, if patient is a minor - assess parent/guardian, etc.) Able to consent to or refuse care. CURRENT PATIENT & FAMILY EDUCATION, COPING NEEDS: (Address patient/family satisfaction with careto date, understanding of current status and plan of care, need for family meeting, need for translator/interpreter, etc.) Education regarding effective coping skills, medication and treatment options, relapse prevention and community supports Functional Status Prior to Admission: Able to perform ADLs/IADLs independently Current Functional Ability: (use of assistive devices, working with PT/OT, etc.) Able to perform ADLs/IADLs independently Anticipated Barriers to Discharge/Special Considerations: (Financial/underinsured, behavioral, lack of needed support/access to community resources, current substance abuse, homelessness, etc.) None anticipated Potential Needs for Transition of Care: Home Health: no Any special transportation needed at D/C to [address] [facility] [address]? None anticipated Rehab/SNF: no New community resources referrals needed? Refer back to current outpatient mental health provider Other: PLAN: PCM will continue to monitor progress, follow for continuity of care and assist with transition of care planning while hospitalized. GRAEME FORD RN PAGER: [phone] Plan of Care - Graeme Ford RN - 08/08/2017 8:08 AM EDT MULTIDISCIPLINARY TREATMENT PLAN Todays Date: 08/08/2017 Patient: Mojgan Lipscomb Admit Date: 08/06/2017 8:04 PM CODE STATUS:Full Code Initial date of care plan. __08/08/17_ Update Q7 days Working Diagnosis: Bipolar disorder, current episode manic without psychotic features, moderate [F31.12] PATIENT'S REASON FOR HOSPITALIZATION Worsening manic symptoms in context of starting prednisone STRENGTHS STRESSORS TARGET SYMPTOMS 1. Connected with outpatient psychiatrist Recent medication change Impulsive behavior 2. Agitation 3. Trouble focusing/ racing thoughts GOALS 1 Stabilize target symptoms and improve understanding of illness 2 Work with Patient Guidance Director to create and implement aftercare plan 3 Medication optimization 4 Groups for education, skill building and support 5 Complete Relapse Plan prior to discharge PHYSICIAN INTERVENTIONS ACTIVITY INTERVENTIONS 1. Continued psychiatric evaluation 1. Behavioral Activation Communication Program 2. Med management/Brief therapy 2. Therapeutic groups & activities 3. Diagnostic/Medical testing/Labs 3. Patient and family education NURSING INTERVENTIONS PCM & SW INTERVENTIONS 1. Purposeful rounding 1. Facilitate communication with family 2. See Nursing care plan 2. Facilitate communication with providers 3. 3. Assist with discharge planning The multidisciplinary team reviewed falls prevention plan with me. I have worked with my treatment team and agree with the plan above. PATIENT SIGNATURE DATE: Mojgan Lipscomb PRINT NAME: SIGNATURE: DATE: RESIDENT PHYSICIAN 08/08/17 ATTENDING PHYSICIAN David Keen MD 08/08/17 NURSING 08/08/17 PATIENT CARPET OR RUG LAYER HELPER Graeme Ford, VANNA 08/08/17 THERAPIST 08/08/17 ACCOUNT INSTALLATION SPECIALIST LISA Calixto 08/08/17 Plan of Care - Florence Rosado RN - 08/07/2017 7:30 PM EDT Problem: Patient Care Overview Goal: Plan of Care Review Outcome: Ongoing (Interventions Implemented as Appropriate) 08/07/17 784 Coping/Psychosocial Plan Of Care Reviewed With patient Plan of Care Review Progress progress toward functional goals as expected OUTCOME EVALUATION NOTE: OUTCOME SUMMARY: Pt was irritable c/o that he is frustrated about the hospital rules, how long it took him to get a bed, he was too groggy in the morning and he doesn't want to take the new medication and will stick with klonopin protocol that his psychiatrist had prescribed On joao MD made aware. He is noted to be utilizing computer often and writing down on pieces of paper most part of the shift. Hyperverbal and loud. Needs redirection. Later in the evening, took a shower and did laundry. He refused to take scheduled melatonin and took only 5mg of olanzapine which he was insisting that it made him groggy in the morning and would not take it at all. call center operator made aware. Denies SI/HI. No safety concerns. He states that this is brayan not his depression phase. Denies anxiety but is frustrated. PLAN MOVING FORWARD: Medication as ordered, attend groups when appropriate, monitor behavior and mood. INDIVIDUALIZED FALL PREVENTION INTERVENTIONS: Patient-specific fall risk factors per assessment: [current deficits]: Med fall risk Assistance [level of assistance required for transfers and ambulation]: indp Supervision [direct monitoring required during toileting and ADLs]: RTU Surveillance [continuous indirect monitoring]: q 15 min checks Patient-specific fall prevention interventions for sensory deficits provided, if applicable: [X] Yes CPG GOAL OUTCOME EVALUATION: Goal: Individualization & Mutuality Outcome: Ongoing (Interventions Implemented as Appropriate) 08/06/17221308/06/17225308/07/171916 Individualization Patient Specific Preferences -- -- I'm not going to take zyprexa, it made me too groggy and not myself. Patient Specific Goals -- I have 2 goals - get better and get back to my . -- Patient Specific Interventions -- -- reassurance, education, redirection Mutuality/Individual Preferences What Anxieties, Fears or Concerns Do You Have About Your Health or Care? -- -- I want to know all the medication I'm taking What Questions Do You Have About Your Health or Care? Do you think I will be here until tuesday? I dont' think I need to be here till then. -- -- What Information Would Help Us Give You More Personalized Care? -- -- I was taking klonopin protocolfor sleep as suggested by my psychiatrist. Goal: Fall Prevention-Safe Patient Handling Outcome: Ongoing (Interventions Implemented as Appropriate) 08/07/171916 Restraint Interventions Safety Promotion/Fall Prevention fall prevention program maintained;nonskid shoes/slippers when out of bed;safety round/check completed Activity Activity Type up ad casey Activity Assistance Provided independent Assistive Device Utilized none Positioning Body Position independent Daily Care Interventions Self-Care Promotion independence encouraged;BADL personal objects within reach Goal: Infection Control Outcome: Ongoing (Interventions Implemented as Appropriate) 08/07/171916 Safety Interventions Isolation Precautions standard precautions maintained Infection Prevention environmental surveillance performed;single patient room provided Coping Strategies Supportive Measures self-care encouraged;self-reflection promoted;self- responsibility promoted;verbalization of feelings encouraged;active listening utilized;problem solving facilitated Goal: Discharge Needs Assessment Outcome: Ongoing (Interventions Implemented as Appropriate) 08/07/171916 Discharge Needs Assessment Concerns To Be Addressed mental health concerns;relationship concerns;medication concerns Readmission Within The Last 30 Days no previous admission in last 30 days Provider Choice List(s) Given no Equipment Needed After Discharge none Current Discharge Risk psychiatric illness Discharge Disposition still a patient Current Health Outpatient/Agency/Support Group Needs outpatient psychiatric care (specify) Anticipated Changes Related to Illness none Activity/Self Care Review of Systems Equipment Currently Used at Home none Living Environment Transportation Available car Goal: Interdisciplinary Rounds/Family Conf Outcome: Ongoing (Interventions Implemented as Appropriate) 08/07/171916 Interdisciplinary Rounds/Family Conf Participants nursing;patient;physician Problem: Thought Process Alteration (Adult) Intervention: Optimize Communication 08/07/171916 Cognitive Interventions Communication Enhancement Strategies verbal communication attempts encouraged Intervention: Provide Frequent Orientation/Reorientation 08/07/171916 Cognitive Interventions Reorientation Measures clock in view Sensory Stimulation Regulation auditory stimulation minimized;quiet environment promoted Goal: Improved Thought Process Patient will demonstrate the desired outcomes by discharge/transition of care. Outcome: Ongoing (Interventions Implemented as Appropriate) 08/07/171916 Thought Process Alteration (Adult) Improved Thought Process making progress toward outcome Plan of Care - Ramses Vera RN - 08/07/2017 1:35 PM EDT Problem: Patient Care Overview Goal: Plan of Care Review Outcome: Unable to achieve outcome by discharge 08/07/17 1335 Coping/Psychosocial Plan Of Care Reviewed With patient Plan of Care Review Progress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
--- OUTSIDE RECORDS SUMMARY | 2022-01-25 12:39 | XMS_ITS | Encounter Summary ---
:1950 [place] [address] Care Team Providers Name Role Phone Celio Sanders MD Primary Care Provider Encounter Details Date Type Department Care Team Description 08/03/2016 Hospital Encounter Same Day Program at BenignoMatthew MD [facility] [place] [address] [place] [address] [phone] Social History Tobacco Use Types Packs/Day Years [...] Sign Reading Time Taken Comments Blood Pressure 135/81 08/03/2016 4:04 PM EDT Pulse 68 08/03/2016 4:04 PM EDT Temperature 36 ??C (96.8 ??F) 08/03/2016 3:14 PM EDT Respiratory Rate 16 08/03/2016 4:04 PM EDT Oxygen Saturation 99% 08/03/2016 4:04 PM EDT Inhaled Oxygen Concentration - - Weight - - Height - - Body Mass Index - - documented in this encounter Discharge Instructions Discharge Mitali Lawrence RN - 08/03/2016 3:40 PM EDT 1. After the procedure: ?? Follow the discharge instructions provided by the Same Day Program. Avoid riding on anything thatbounces such as custom tailor apprentice, ATV, horse back riding or motorcycle riding [...] Pelaez MD - 08/03/2016 4:27 PM EDT [facility] [place] Patient Name: Nain Mckeon : [id number] MR#: [id number] Case Date: 08/03/2016 Surgeon: Surgeon(s) and Role: [...] gentleman with high-risk prostate cancer, PSA 47.5, [place] 4+4=8/10, Stage [id number]. He is planned for EBRT along with ADT. First Lupron injection was 22.5 mg (3-months) on 05/31/16. He originally was seen in [facility] by Dr. Vazquez. He did not [...] The Space(OAR) system was prepared as per state trooper's recommendations. A needle was then placed trans-perineally [...] Visit Radiation Oncology Rama Ramos APRN [facility] RADIATION [place], [place] [address] (Wo rk) documented as of [...] at 100 mL/hr, Intravenous, CONTINUOUS, Starting on Tu08/03/16 at 1200, Until Tue08/03/16 at 1619, Day of Surgery (Day of Procedure) New Bag 08/03/2016 12:00 PM EDT 1,000 mLs 100 mL/hr documented in this encounter Active and Recently Administered Medications Times are shown in EDT. Scheduled Medication Order 08/01/2016 08/02/2016 08/03/2016 levofloxacin (LEVAQUIN) 500 mg in dextrose 5% 100 mL (COMPLETED) 1332 (Given - Provider: aRma Valdez CRNA - Comment: over 30 min) 500 mg, Intravenous, at 100 mL/hr, EVERY 24 HOURS, 1 dose, First dose on Tue08/03/16 at 1345, Day of Surgery (Day of Procedure), STAT Continuous Medication Order 08/01/2016 08/02/2016 08/03/2016 lactated Ringers infusion 1,000 mL (CANCELED) 1200 (New Bag - Provider: John Pierson RN)1332 (New Bag - Provider: Rama Valdez CRNA)1514 (Stopped - Provider: Rama Valdez CRNA) 1,000 mL, at 100 mL/hr, Intravenous, CON TINUOUS, Starting Tue08/03/16 at 1200, Until Tue08/03/16 at 1619, Day of Surgery (Day of Procedure) documented in this encounter Care Teams Braze Operator Relationship Specialty Start Date End Date Celio Sanders MD PCP - General Internal Medicine 05/19/16 [address] [place] [address] documented as of this encounter
--- OUTSIDE RECORDS SUMMARY | 2022-01-25 12:39 | XMS_ITS | Encounter Summary ---
:1950 Author Organization [facility] [place] [address] Care Team Providers Name Role Phone Celio Sanders MD Primary Care Provider Reason for Visit Reason Comments Follow-up Encounter Details Date Type Department Care Team Description 09/03/2016 Clinical Support Hematology and Kimberly Cobb counseling Oncology at [facility] [place] [address] Social History Tobacco Use Types Packs/Day [...] Sign Reading Time Taken Comments Blood Pressure - - Pulse - - Temperature - - Respiratory Rate - - Oxygen Saturation - - Inhaled Oxygen Concentration - - Weight 81.4 kg (179 lb 6.4 oz) 09/03/2016 7:58 AM EDT Height 161.4 cm (5' 3.54) 09/03/2016 7:58 AM EDT Body Mass Index 31.24 09/03/2016 7:58 AM EDT documented in this encounter Progress Notes Kimberly Cobb RD - 09/03/2016 8:[address] [facility] Initial Dietitian Assessment Seen By: Kimberly Cobb, MS, RD, LD, BODY MECHANIC Referred by: Reason for visit: Patient and diagnosis: Nain Mckeon is a 65 y.o. 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 Assessment: HPI: Patient Active Problem List Diagnosis Code ??? Foreign travel Z78.9 ??? 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 C61 Meds: Noted Labs: NNL Ht: Wt: Wt Hx: Wt Readings from Last 3 Encounters: 09/03/16 81.4 kg (179 lb 6.4 oz) 08/31/16 82.4 kg (181 lb 11.2 oz) 08/26/16 81 kg (178 lb 9.6 oz) UBW: % UBW: IBW: +/- 10% % IBW: BMI: ___ Edema ___ Ascites ___Muscle wasting Calorie needs: Protein needs: Fluid needs: Food Intake: Am: oatmeal, fruits, tofu Noon: cooked vegetables, chickpeas Pm: typically fish or chicken Snacks: Supplements/Frequency: Teas, vitamins, or other nutritional supplements: omega 3 Food allergies or avoidances: Appetite: Nausea: Vomiting: Chewing: Dentition: Swallowing: Phlegm: Taste Changes: Bowels: moving though experiencing some constipation Food availability/purchasing, meal planning and preparation: Depression: Social Support: Economic Issues: Physical Activity: Level of Motivation/Readiness to Change: A/P: Met with patient and his today to discuss nutrition and prostate Ca. Patient came prepared withseveral questions. Reviewed and answered questions. Denies barriers to PO intake. Discussed AICR varied plant based diet, encouraged daily physical activity and slow steady weight loss (1-2lb/week) with goal of reaching a healthy body weight. Bowels formed and more on the side of constipation at this time; encouraged adequate fluids- he is eating plenty of fiber in current diet. Discussed tips for managing diarrhea should he experience. Discussed as he is eating ~18oz of fish/week, he likely does not need omega 3 supplement. He does not eat much dairy, so we reviewed while it is not recommended to have excessive servings of dairy or calcium/day, it is still important to meet daily calcium needs- reviewed foods containing calcium and discussed goal of 1000mg/day through foods and/or supplement [id number]/day of vitamin D if he is not outside at all during the day. Nutrition Goals: Healthy varied diet Educational Handouts provided: NCM: Diarrhea; Prostate Handout; Protein Needs; International Osteopor[employer] Foundation- List of Calcium containing foods; OnDPG: Prostate Ca and Nutrition, Flaxseeds and Prostate Ca, Calcium and Prostate Ca Monitoring and Evaluation: Will follow up with Mr. Cierra harmon at this time. More than 60 of this 60 minute visit was spent in direct patient nutrition counseling. I have provided him with my card and contact information should he have any questions in the mean time. Thank you for this consult. documented in this encounter Plan of Treatment Upcoming Encounters Date Type Specialty Care Team Description 02/04/2022 Office Visit Radiation Oncology Rama Ramos APRN [facility] RADIATION [place], [place] [address] (Wo rk) documented as of this encounter Visit Diagnoses Diagnosis Dietary counseling Dietary surveillance and counseling documented in this encounter Care Teams Digital Marketing Assistant Relationship Specialty Start Date End Date Celio Sanders MD PCP - General Internal Medicine 05/19/16 [address] [place] [address] documented as of this encounter
--- OUTSIDE RECORDS SUMMARY | 2022-01-25 12:39 | XMS_ITS | Encounter Summary ---
:1950 Author Organization [facility] [place] [address] Care Team Providers Name Role Phone Celio Sanders MD Primary Care Provider Reason for Visit Reason Comments Injections Lupron Encounter Details Date Type Department Care Team Description 11/18/2016 Infusion Hematology Oncology at [facility] regional lymph node staging [address] category pN1: metastasis in [place], [place] [phone] regional nodes [phone] Social History Tobacco Use Types Packs/Day Years Used Date Smoking Tobacco: Never Smokeless Tobacco: Never Alcohol Use Standard Drinks/Week Comments Yes 0 (1 standard drink = 0.6 oz pure beer o r wine a couple times a alcohol) month, if that Sex Assigned at Date Recorded Not on file documented as of this encounter Progress Notes Caio Venegas RN - 11/18/2016 10:30 AM EDT Infusion Note Diagnosis:Prostate Cancer Treatment: Lupron [...] Office Visit Radiation Oncology Rama Ramos APRN [facility] RADIATION [place], [place] [address] (Wo rk) documented as of this encounter Procedures Procedure Name Priority Date/Time Associated Diagnosis Comme nts LAB SCAN 03/23/2016 12:00 AM Results for this EST procedure are i n the results section . documented in this encounter Results SCAN DOC: LAB (03/23/2016 12:00 AM EST) Narrative 03/23/2016 12:00 AM EST This result has an attachment that is no t available. Ordered by an unspecified provider. Scanning Provider MEDIA MGR SCAN EXT ORDR/RSLT documented in this encounter Visit Diagnoses Diagnosis 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 documented in this encounter Administered Medications Inactive Administered Medications - up to 3 most recent administrations Medication Order MAR Action Action Date Dose Rate Site leuprolide (LUPRON) Given 11/18/2016 11:05 AM 22.5 mg Left Gluteal injection 22.5 mg EDT 22.5 mg, Intramuscular, ONCE, 1 dose, On Colleen 11/18/16 at 1115, Routine documented in this encounter Care Teams Sail Finisher Machine Relationship Specialty Start Date End Date Celio Sanders MD PCP - General Internal Medicine 05/19/16 [address] [place] [address] documented as of this encounter
--- OUTSIDE RECORDS SUMMARY | 2022-01-25 12:39 | XMS_ITS | Encounter Summary ---
:1950 Author Organization [facility] [place] [address] Care Team Providers Name Role Phone Celio Sanders MD Primary Care Provider Reason for Visit Reason Comments On Treatment Visit Encounter Details Date Type Department Care Team Description 09/10/2016 Office Visit Radiation Oncology at Ronnie Vazquez C ancer of prostate [facility] with high recurrence [address] risk (stage T3a or Drive RADIATION ONCOLOGY [place] 8-10 or PSA > [place], [place] [address]) [id number] (Wo rk) Social History Tobacco Use Types [...] Sign Reading Time Taken Comments Blood Pressure 117/73 09/10/2016 8:08 AM EDT Pulse 64 09/10/2016 8:08 AM EDT Temperature 36.3 ??C (97.3 ??F) 09/10/2016 8:08 AM EDT Respiratory Rate 18 09/10/2016 8:08 AM EDT Oxygen Saturation 100% 09/10/2016 8:08 AM EDT Inhaled Oxygen Concentration - - Weight 81.3 kg (179 lb 3.2 oz) 09/10/2016 8:08 AM EDT Height - - Body Mass Index 31.2 09/03/2016 7:58 AM EDT documented in this encounter Progress Notes Ronnie Vazquez MD - 09/10/2016 7:30 AM EDT Images from the original note were not included. RADIATION ONCOLOGY - Weekly On Treatment Visit Note 09/10/16 Ronnie Vazquez MD Radiation Oncology [facility] [phone] (paging strike on machine operator) PATIENT IDENTIFICATION NAME: Nain Mckeon DATE OF : 1950 ONCOLOGIC SUMMARY: Nain Mckeon is a 65 y.o. year [...] 79.2 Gy in 44 fractions Current Dose: 23.4 Gy in 13 fractions INTERVAL HISTORY Subjective: General - No changes. - Nocturia unchanged at 3x / night (up from 1x/nt at baseline) but stream feels better with complete emptying on Lupron 0.4mg qhs. Denies other LUTS or dysuria. GI - No diarrhea. Pain: Pain score today is 0/10. Medications 09/10/16 0942 Medication Sig Taking? calcium-vitamin D 500 mg(1,250mg) -200 unit Tablet Take 1 tablet by mouth daily. Indications: Prevention of Vitamin D Deficiency Yes tamsulosin (FLOMAX) 0.4 mg Capsule, Sust. Release 24 hr Take 1 capsule by mouth nightly. Yes mirtazapine (REMERON) 30 mg Tablet Take 30 mg by mouth nightly. Yes clonazePAM (KLONOPIN) 2 mg Tablet Take 2 mg by mouth nightly. Yes pravastatin (PRAVACHOL) 40 mg Tablet Take 40 mg by mouth daily. Yes lamoTRIgine (LAMICTAL) 150 mg Tablet Take 150 mg by mouth daily. Yes LEVOTHYROXINE SODIUM (LEVOTHROID ORAL) Take 75 mcg by mouth daily. Yes Imaging / Laboratory Studies: I have personally reviewed this patient's interval portal imaging to confirm accurate positioning and alignment which matches the patient's original approved treatment planning images. No other interval studies for review. EXAM: BP 117/73 (Patient Position: Sitting) Pulse 64 Temp 36.3 ??C (97.3 ??F) (Oral) Resp 18 Wt 81.3 kg (179 lb 3.2 oz) SpO2 100% BMI 31.2 kg/m2 Constitutional: he appears well-developed and well-nourished. [...] Radiation Oncology Rama Ramos APRN [facility] RADIATION [place], [place] [address] (Wo rk) documented as of this encounter Visit Diagnoses Diagnosis Cancer of prostate with high recurrence risk (stage T3a or Andre 8-10 or PSA > 20) Malignant neoplasm of prostate documented in this encounter Care Teams Research Electrician Relationship Specialty Start Date End Date Celio Sanders MD PCP - General Internal Medicine 05/19/16 [address] [place] [address] documented as of this encounter
--- OUTSIDE RECORDS SUMMARY | 2022-01-25 12:39 | XMS_ITS | Encounter Summary ---
:1950 Author Organization [place] [address] Care Team Providers Name Role Phone Celio Sanders MD Primary Care Provider Encounter Details Date Type Department Care Team Description 09/21/2016 Telephone Radiation Oncology at [facility], Alta Chacon RN [address] [phone] Social History Tobacco Use [...] Telephone Encounter - Alta Muse RN - 09/21/2016 3:39 PM EDT Radiation Oncology Nurse Telephone Note [place], [place] Patient has received 19FXs, 3420 cGy To the pelvis For treatment of prostate cancer. Side effects that patient is experiencing: Patient wrote email to Dr Vazquez about having diarrhea. Dr Vazquez sent message to this author thathe advised patient take imodium and asked that I review low fiber diet with him I called his home number and his answered the phone stating that he is at work and to try his cell phone. I called the cell and left the following information: Follow a low roughage, low fiber diet. For example avoiding raw fruits/ vegetables and whole grain breads. Drink plenty of water;8-10 glasses/day Anticipatory guidance/ interventions: I also included in my message that I am happy to go over this diarrhea management in person with himtomorrow after his daily treatment, otherwise we will see him for weekly OTV and will provide printed diarrhea management patient info. Plan: Weekly on-treatment visit every w/ Dr Vazquez and daily visits prn with nursing documented in this encounter Plan of Treatment Upcoming Encounters Date Type Specialty Care Team Description 02/04/2022 Office Visit Radiation Oncology Rama Ramos, SOCIAL INSURANCE ADMINISTRATOR [facility] RADIATION [place], [place] [address] (Wo rk) documented as of this encounter Visit Diagnoses Not on filedocumented in this encounter Care Teams Outreach Representative Relationship Specialty Start Date End Date Celio Sanders MD PCP - General Internal Medicine 05/19/16 [address] [place] [address] documented as of this encounter
--- OUTSIDE RECORDS SUMMARY | 2022-01-25 12:39 | XMS_ITS | Encounter Summary ---
:1950 Author Organization [facility] [place] [address] Care Team Providers Name Role Phone Celio Sanders MD Primary Care Provider Encounter Details Date Type Department Care Team Description 10/21/2016 [facility] with high recurrence risk (stage T3a or [place] 8-10 or PSA > 20); [facility] 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 [address] [place] RADIATION ONCOL [place] [address] [place], [place] [phone] [id number] (Wo rk) Social History Tobacco Use Types [...] Reading Time Taken Comments Blood Pressure 135/80 10/21/2016 4:52 PM EDT Pulse 94 10/21/2016 4:52 PM EDT Temperature 36.6 ??C (97.9 ??F) 10/21/2016 4:52 PM EDT Respiratory Rate 16 10/21/2016 4:52 PM EDT Oxygen Saturation 97% 10/21/2016 4:52 PM EDT Inhaled Oxygen Concentration - - Weight 83.9 kg (185 lb) 10/21/2016 4:52 PM EDT Height - - Body Mass Index 32.21 09/03/2016 7:58 AM EDT documented in this encounter Progress Notes Ronnie Vazquez MD - 10/21/2016 4:45 PM EDT Images from the original note were not included. RADIATION ONCOLOGY - Weekly On Treatment Visit Note 10/21/16 Ronnie Vazquez MD Radiation Oncology [facility] [phone] (paging rivet hammer machine operator) PATIENT IDENTIFICATION NAME: Nain Mckeon [...] HISTORY Subjective: General - Overall doing well. Happy to be nearly done. - Flomax 0.4 mg bid keeping nocturia at 2x / night (up from 1x/nt at baseline). Denies other LUTSor dysuria. GI - No diarrhea or bleeding. Pain: Pain score today is 0/10. Medications 10/21/16 9734 Medication Sig Taking? ondansetron (ZOFRAN-ODT) 8 mg Tablet, Rapid Dissolve Take 1 tablet by mouth every 8 hours as needed for Nausea. Yes loperamide (IMODIUM A-D) 2 mg Tablet [...] other interval studies for review. EXAM: BP 135/80 (Patient Position: Sitting) Pulse 94 Temp 36.6 ??C (97.9 ??F) (Oral) Resp 16 Wt 83.9 kg (185 lb) SpO2 97% BMI 32.21 kg/m2 Constitutional: he appears well-developed and well-nourished. [...] Visit Radiation Oncology Rama Ramos APRN [facility] [address] [place], [place] [address] (Wo rk) documented as of this encounter Visit Diagnoses Diagnosis Cancer of prostate with high recurrence risk (stage T3a or Andre 8-10 or PSA > 20) Malignant neoplasm of prostate 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 documented in this encounter Care Teams Wage Hand Relationship Specialty Start Date End Date Celio Sanders MD PCP - General Internal Medicine 05/19/16 [address] [place] [address] documented as of this encounter
--- OUTSIDE RECORDS SUMMARY | 2022-01-25 12:39 | XMS_ITS | Encounter Summary ---
:1950 Author Organization [facility] [place] [address] Care Team Providers Name Role Phone Celio Sanders MD Primary Care Provider Encounter Details Date Type Department Care Team Description 11/02/2016 Telephone Hematology and [place]cology [place] [address] [place] [address] Social History Tobacco Use Types Packs/Day Years Used Date Smoking Tobacco: Never Smokeless Tobacco: Never Alcohol Use Standard Drinks/Week Comments Yes 0 (1 standard drink = 0.6 oz pure beer o r wine a couple times a alcohol) month, if that Sex Assigned at Date Recorded Not on file documented as of this encounter Miscellaneous Notes Telephone Encounter - Kimberly Cobb RD - 11/02/2016 3:20 PM EDT VM received from patient. He asks about Tumeric supplement after completing Rtx. Provided return PC to patient. We discussed at this time, author encourages to cooks with tumeric vs. supplement as there is limited clinical trials to support specific dosage with a supplement. Discussed if he does choose to use supplement to look for NSF international or FDC seals and advised to hold on during chemotx or if taking any medications which may interact. Will continue to remain available prn. documented in this encounter Plan of Treatment Upcoming Encounters Date Type Specialty Care Team Description 02/04/2022 Office Visit Radiation Oncology Rama Ramos APRN [facility] RADIATION [place] [facility], [place] [address] (Wo rk) documented as of this encounter Visit Diagnoses Not on filedocumented in this encounter Care Teams Cattle Dipper Relationship Specialty Start Date End Date Celio Sanders MD PCP - General Internal Medicine 05/19/16 [address] [place] [address] documented as of this encounter
--- OUTSIDE RECORDS SUMMARY | 2022-01-25 12:39 | XMS_ITS | Encounter Summary ---
:1950 Author Organization [facility] [place] [address] Care Team Providers Name Role Phone Celio Sanders MD Primary Care Provider Encounter Details Date Type Department Care Team Description 08/04/2016 Orders Only [place] of prostate [facility] regional lymph node [facility] sta ging category pN1: Drive [place] [address] RADIATION ONCOLOGY nodes [phone] [place], [place] [address] Social History Tobacco Use Types [...] Office Visit Radiation Oncology Rama Ramos APRN [facility] RADIATION ONCOLO [place], [place] [address] (Wo rk) documented as of this encounter Visit Diagnoses Diagnosis 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 documented in this encounter Care Teams Labor Specialist Relationship Specialty Start Date End Date Celio Sanders MD PCP - General Internal Medicine 05/19/16 [address] [place], [place] [id number] documented as of this encounter
--- OUTSIDE RECORDS SUMMARY | 2022-01-25 12:39 | XMS_ITS | Encounter Summary ---
:1950 Author Organization [facility] [place] [address] Care Team Providers Name Role Phone Celio Sanders MD Primary Care Provider Encounter Details Date Type Department Care Team Description 09/16/2016 Office Visit Radiation Oncology at [facility] with high recurrence [address] [facility] risk (stage T3a or [place], [place] RADIATION ONCOL OGY [place] 8-10 or PSA > [address] [place], [place] 20) [phone] (Wo rk) Social History Tobacco Use Types Packs/Day Years Used Date Smoking Tobacco: Never Smokeless Tobacco: Never Alcohol Use Standard Drinks/Week Comments Yes 0 (1 standard drink = 0.6 oz pure beer o r wine a couple times a alcohol) month, if that Sex Assigned at Date Recorded Not on file documented as of this encounter Progress Notes Ronnie Vazquez MD - 09/16/2016 12:00 PM EDT Images from the original note were not included. RADIATION ONCOLOGY - Weekly On Treatment Visit Note 09/16/16 Ronnie Vazquez MD Radiation Oncology [facility] [phone] (paging rerolling machine operator) PATIENT IDENTIFICATION NAME: Nain Mckeon [...] 79.2 Gy in 44 fractions Current Dose: 28.8 Gy in 16 fractions INTERVAL HISTORY Subjective: General - More fatigue this week. - Nocturia unchanged at 3x / night (up from 1x/nt at baseline) but stream feels better with complete emptying on Lupron 0.4mg qhs. Denies other LUTS or dysuria. GI - No diarrhea. Pain: Pain score today is 0/10. Medications 09/16/16 1310 Medication Sig Taking? calcium-vitamin D 500 mg(1,250mg) -200 unit Tablet Take 1 tablet by mouth daily. Indications: Prevention of Vitamin D Deficiency tamsulosin (FLOMAX) 0.4 mg Capsule, Sust. Release 24 hr Take 1 capsule by mouth nightly. mirtazapine (REMERON) 30 mg Tablet Take 30 mg by mouth nightly. clonazePAM (KLONOPIN) 2 mg Tablet Take 2 mg by mouth nightly. pravastatin (PRAVACHOL) 40 mg Tablet Take 40 mg by mouth daily. lamoTRIgine (LAMICTAL) 150 mg Tablet Take 150 mg by mouth daily. LEVOTHYROXINE SODIUM (LEVOTHROID ORAL) Take 75 mcg by mouth daily. Imaging / Laboratory Studies: I have personally reviewed this patient's interval portal imaging to confirm accurate positioning and alignment which matches the patient's original approved treatment planning images. No other interval studies for review. EXAM: There were no vitals taken for this visit. Constitutional: he appears well-developed and well-nourished. No [...] 02/04/2022 Office Visit Radiation Oncology Rama Ramos, BOBBIN PRESSER [facility] RADIATION ONCOLO [place], [place] [address] (Wo rk) documented as of this encounter Visit Diagnoses Diagnosis Cancer of prostate with high recurrence risk (stage T3a or [place] 8-10 or PSA > 20) Malignant neoplasm of prostate documented in this encounter Care Teams Embroiderer Hand Relationship Specialty Start Date End Date Celio Sanders MD PCP - General Internal Medicine 05/19/16 [address] [place] [address] documented as of this encounter
--- OUTSIDE RECORDS SUMMARY | 2022-01-25 12:39 | XMS_ITS | Encounter Summary ---
:1950 Author Organization [facility] [place] [address] Care Team Providers Name Role Phone Celio Sanders MD Primary Care Provider Encounter Details Date Type Department Care Team Description 07/22/2016 Clinical [place] [address] Social History Tobacco Use Types Packs/Day [...] Taken Comments Blood Pressure - - Pulse 82 07/22/2016 9:10 AM EDT Temperature - - Respiratory Rate - - Oxygen Saturation 96% 07/22/2016 9:10 AM EDT Inhaled Oxygen Concentration - - Weight 82.6 kg (182 lb 3.2 oz) 07/22/2016 9:10 AM EDT Height 162.6 cm (5' 4) 07/22/2016 9:10 AM EDT Body Mass Index 31.27 07/22/2016 9:10 AM EDT documented in this encounter Progress Notes Diana Champagne RN - 07/22/2016 9:40 AM EDT PAT questionnaire reviewed with patient and while in Pre Admission testing. Patient denies any problems with anesthesia in the past. Pre-operative instruction booklet reviewed. Patient verbalizes a good understanding of all information. PLAN Testing: None ordered. Special medication instructions: n/a Procedure date: 08/03/16 - Dr. Pelaez. documented in this encounter Plan of Treatment Upcoming Encounters Date Type Specialty Care Team Description 02/04/2022 Office Visit Radiation Oncology Rama Ramos, GOLF SUPERINTENDENT [facility] [place], [place] [address] (Wo rk) documented as of this encounter Visit Diagnoses Not on filedocumented in this encounter Care Teams Pie Bakery Laborer Relationship Specialty Start Date End Date Celio Sanders MD PCP - General Internal Medicine 05/19/16 [address] [place] [address] documented as of this encounter
--- OUTSIDE RECORDS SUMMARY | 2022-01-25 12:39 | XMS_ITS | Encounter Summary ---
:1950 Author Organization [facility] [place] [address] Care Team Providers Name Role Phone Celio Sanders MD Primary Care Provider Reason for Visit Reason Comments Follow-up Encounter Details Date Type Department Care Team Description 07/22/2016 [place] [facility] regional lymph node [facility] sta ging category pN1: Drive DR metastasis in regional [place], [place] RADIATION ONCOLO GY nodes [address] [place] [address] [phone] Social History Tobacco Use Types Packs/Day Years [...] Sign Reading Time Taken Comments Blood Pressure 102/60 07/22/2016 10:50 AM EDT Pulse 78 07/22/2016 10:50 AM EDT Temperature 36.6 ??C (97.9 ??F) 07/22/2016 10:50 AM EDT Respiratory Rate 16 07/22/2016 10:50 AM EDT Oxygen Saturation 96% 07/22/2016 10:50 AM EDT Inhaled Oxygen Concentration - - Weight 82.4 kg (181 lb 9.6 oz) 07/22/2016 10:50 AM EDT Height - - Body Mass Index 31.17 07/22/2016 9:10 AM EDT documented in this encounter Patient Instructions Patient InstructionsMarine Sood RN - 07/22/2016 11:00 AM EDT Patient Information for Gold Coil Placement Procedure Appointments Date: August 03, 2016 Time: !:00 PM for procedure-Same Day Program will call you the day before to instruct you on what time to arrive and diet and medication restrictions. Why do I need coil markers? You and your doctor have discussed treatment options and have decided that gold coils will be helpful in your external beam radiation treatment. ??? The markers are small 24 karat gold coils that will sit within the prostate and help locate the prostate in the planning CT scan and during treatment. ??? Two coils are used--one to janice each side of the gland. ??? The coils are permanent. You will be able to have MRI scans. STOP taking ???blood thinners:? Stop taking medications* that might thin your blood (anticoagulants) one week before your gold coils are scheduled to be placed. ??? For you this is N/A unless you take any of the supplements listed below. *aspirin, ibuprofen, ginko biloba, Coumadin, Lovenox, ginseng, garlic, etc. Please ask if you are not sure about any of your medications. Prescriptions to get filled and things to curing pickling packer from the pharmacy: Two Saline Enemas -These do not require a prescription You will need to administer one the evening before and the second one the morning of the procedure. RX for dexamethasone: You will need to begin taking this the day of the procedure. The night before the procedure: ??? Eat a normal dinner ??? Take one Fleets Enema before bedtime The morning of the procedure: ??? Take the second Fleets enema (2-3 hours prior to scheduled time of procedure) ??? Plan to arrive in the Same Day Program as instructed How is it done? You will need to change into gown. ??? You will be brought into a procedure room for the procedure and the team will explain how it is done. After the procedure: ??? Follow the discharge instructions provided by the Same Day Program. Avoid riding on anything that bounces such as authorizer, ATV, horse back riding or motorcycle riding for one week. ??? You may take extra-strength Tylenol for any discomfort. ??? Take your dexamethasone as instructed. ??? . ??? Call us if you notice any unusual swelling, pain, or if you have any other concerns. ? *Your planning session will be done the following week. Several hours before planning session use a saline enema. Plan to arrive to this appointment with a comfortably full bladder.* documented in this encounter Progress Notes Matthew Pelaez MD - 07/22/2016 11:00 AM EDT Follow-up Note and H&P for Surgical Procedure Identification Nain Mckeon is a 65 y.o. gentleman with high-risk prostate cancer, PSA 47.5, [place] 4+4=8/10, Stage [id number]. He is planned for EBRT along with ADT. First Lupron injection was 22.5 mg (3-months) on 05/31/16. He originally was seen in [facility] by Dr. Vazquez. He did not tolerate placement of gold coil fiducial markers under local anesthesia. He now presents for H&P in preparation for placement of gold coils and SpaceOAR hydrogel under conscious sedation. Interval history No new issues or complaints. Continues on ADT. Prostate IPSS and LINA(Pt Entered): Today's answers and scores Prostate Scores and Responses 07/22/2016 Confidence, level - past 6 months Very High Penetration - past 6 months Almost always or always Penetration, maintain - past 6 months Almost always or always Erection, maintain - past 6 months Not difficult Sexual satisfaction - past 6 months Almost always or always Sexual Health in Men 25 Incomplete emptying Less than 1 time in 5 Frequency Less than 1 time in 5 Intermittency Not at all Urgency Not at all Weak Stream Not at all Straining Less than 1 time in 5 Nocturia 2 times Quality of life Mixed - about equally satisfied and dissatisfied Total IPSS Score 5 ( MILD LUTS) Denies significant dysuria or hematuria. Bowel movements are regular and stable. Current Outpatient Prescriptions on File Prior to Visit Medication Sig Dispense Refill ??? mirtazapine (REMERON) 30 mg Tablet Take 30 mg by mouth nightly. ??? clonazePAM (KLONOPIN) 2 mg Tablet Take 2 mg by mouth nightly. ??? pravastatin (PRAVACHOL) 40 mg Tablet Take 40 mg by mouth daily. ??? lamoTRIgine (LAMICTAL) 150 mg Tablet Take 150 mg by mouth daily. ??? LEVOTHYROXINE SODIUM (LEVOTHROID ORAL) Take 75 mcg by mouth daily. No current facility-administered medications on file prior to visit. No Known Allergies Physical Exam BP 102/60 (Patient Position: Sitting) Pulse 78 Temp 36.6 ??C (97.9 ??F) (Oral) Resp 16 Wt 82.4 kg (181 lb 9.6 oz) SpO2 96% BMI 31.17 kg/m2 Sclera anicteric. No adenopathy in cervical, supraclavicular, or inguinal regions. Lungs clear in all inman. No back or costo-vertebral angle tenderness. CV with regular rate and rhythm Abdomen soft, nontender, positive bowels sounds, no hepatosplenomegaly. No suprapubic tenderness. External genitalia unremarkable. No pretibial edema. Rectal with normal tone, guiac negative stool, no masses. Prostate is markedly enlarged and firm, with a prominent nodule occupying the lateral aspect of the right lobe and extending beyond the capsule -- stage cT3 disease on my exam. Investigations None at present Assessment and Plan Mr. Mckeon is in good condition for his upcoming planned coil implant, to be done under conscious sedation. Also, he indicated interest in placement of Space()OAR hydrogel between prostate and rectum at the time of his procedure. Space()OAR has been shown to improve short-term rectal toxicities for patients undergoing prostate irradiation. Benefits and risks of placement of fiducial coils and of the hydrogel were reviewed and informed consent was obtained. Nain Mckeon was seen in follow-up for a total of 40 minutes, with 35 minutes of that time spent discussing his current clinical condition, reviewing treatment options, and planning further management. 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
--- OUTSIDE RECORDS SUMMARY | 2022-01-25 12:39 | XMS_ITS | Encounter Summary ---
:1950 [place] [address] Care Team Providers Name Role Phone Celio Sanders MD Primary Care Provider Encounter Details Date Type Department Care Team Description 08/26/2016 Office Visit [place] [address] Social History Tobacco Use Types Packs/Day [...] Office Visit Radiation Oncology Rama Ramos APRN [facility] RADIATION [place], [place] [address] (Wo rk) documented as of this encounter Visit Diagnoses Not on filedocumented in this encounter Care Teams Button Inspector Relationship Specialty Start Date End Date Celio Sanders MD PCP - General Internal Medicine 05/19/16 [address] [place], [place] [address] documented as of this encounter
--- OUTSIDE RECORDS SUMMARY | 2022-01-25 12:39 | XMS_ITS | Encounter Summary ---
:1950 Author Organization [facility] [place] [address] Care Team Providers Name Role Phone Celio Sanders MD Primary Care Provider Reason for Referral Consultation (Routine) - Closed Specialty Diagnoses / Procedures Referred By Contact Refer red To Contact Hematology and Oncology Diagnoses Cancer of prostate with high recurrence risk (stage T3a or [place] 8-10 or PSA > 20) Ronnie Vazquez MD [facility] Hem Onc Office [address] [place] [address] [place] [id number] Referral ID Status Reason Start Date Expiration Date Visits V isits Requested Authorized [id number] Closed Consult, 10/07/2016 10/07/2017 1 1 Test & Treat Encounter Details Date Type Department Care Team Description 10/07/2016 Office Visit Radiation Oncology at Ronnie Vazquez C ancer of prostate [facility] with high recurrence [address] [place] [address] risk (stage T3a or [place], [place] RADIATION ONCOL OGY [place] 8-10 or PSA > [address] [place], [place] [address]) [phone] (Wo rk) Social History Tobacco Use Types [...] Sign Reading Time Taken Comments Blood Pressure 132/71 10/07/2016 10:00 AM EDT Pulse 94 10/07/2016 10:00 AM EDT Temperature 36.7 ??C (98 ??F) 10/07/2016 10:00 AM EDT Respiratory Rate 16 10/07/2016 10:00 AM EDT Oxygen Saturation 97% 10/07/2016 10:00 AM EDT Inhaled Oxygen Concentration - - Weight 83 kg (183 lb) 10/07/2016 10:00 AM EDT Height - - Body Mass Index 31.87 09/03/2016 7:58 AM EDT documented in this encounter Progress Notes Ronnie Vazquez MD - 10/07/2016 10:45 AM EDT Images from the original note were not included. RADIATION ONCOLOGY - Weekly On Treatment Visit Note 10/07/16 Ronnie Vazquez MD Radiation Oncology [facility] [phone] (paging french edge operator) PATIENT IDENTIFICATION NAME: Nain Mckeon DATE [...] 79.2 Gy in 44 fractions Current Dose: 55.8 Gy in 31 fractions INTERVAL HISTORY Subjective: General - More fatigue this week. Denies hot flashes. - LUTS improved with Ibuprofen 1-2x /d day + Flomax 0.8mg qhs (staggering in the late afternoon and early evening). Nocturia 2x / night (less than 3x/nt last week but still up from 1x/nt at baseline). Denies other LUTS. GI - More frequent soft BMs (4-5x/day), no diarrhea. More gas as well. He has not taken any Imodium or made any dietary modifications. Pain: Pain score today is 0/10. Medications 10/07/16 1130 Medication Sig Taking? loperamide (IMODIUM A-D) 2 [...] Take 2 mg by mouth nightly. Yes lamoTRIgine (LAMICTAL) 150 mg Tablet Take 150 mg by mouth daily. Yes LEVOTHYROXINE SODIUM (LEVOTHROID ORAL) Take 75 mcg by mouth daily. Yes pravastatin (PRAVACHOL) 40 mg Tablet Take 40 mg by mouth daily. Imaging / Laboratory Studies: I have personally reviewed this patient's interval portal imaging to confirm accurate positioning and alignment which matches the patient's original approved treatment planning images. No other interval studies for review. EXAM: BP 132/71 Pulse 94 Temp 36.7 ??C (98 ??F) Resp 16 Wt 83 kg (183 lb) SpO2 97% BMI 31.87 kg/m2 Constitutional: he appears well-developed and well-nourished. [...] therapy as planned. documented in this encounter Miscellaneous Notes Addendum Note - Ronnie Vazquez MD - 10/07/2016 2:49 PM EDT Addended by: RONNIE VAZQUEZ on: 10/07/2016 02:49 PM Modules accepted: Orders documented in this encounter Plan of Treatment Upcoming Encounters Date Type Specialty Care Team Description 02/04/2022 Office Visit Radiation Oncology Rama Ramos APRN [facility] RADIATION ONCOLO [place], [place] [address] (Wo rk) Scheduled Referrals Name Type Priority Associated Order Schedule Diagnoses Referral to Outpatient Referral Routine Cancer of prostate Or dered: Hematology and with high 10/07/2016 Oncology recurrence risk (stage T3a or [place] 8-10 or PSA > 20) documented as of this encounter Visit Diagnoses Diagnosis Cancer of prostate with high recurrence risk (stage T3a or [place] 8-10 or PSA > 20) Malignant neoplasm of prostate documented in this encounter Care Teams Plant Hr Manager Relationship Specialty Start Date End Date Celio Sanders MD PCP - General Internal Medicine 05/19/16 [address] [place] [address] documented as of this encounter
--- OUTSIDE RECORDS SUMMARY | 2022-01-25 12:39 | XMS_ITS | Encounter Summary ---
:1950 Author Organization [facility] [place] [address] Care Team Providers Name Role Phone Celio Sanders MD Primary Care Provider Encounter Details Date Type Department Care Team Description 09/23/2016 Office Visit Radiation Oncology at Ronnie Vazquez C ancer of prostate [facility] with high recurrence [address] [facility] [address] risk (stage T3a or [place], [place] RADIATION ONCOL OGY [place] 8-10 or PSA > [address] [place], [place] 20) [phone] (Wo rk) Social History Tobacco Use Types [...] Sign Reading Time Taken Comments Blood Pressure 127/75 09/23/2016 11:00 AM EDT Pulse 90 09/23/2016 11:00 AM EDT Temperature 36.7 ??C (98.1 ??F) 09/23/2016 11:00 AM EDT Respiratory Rate 18 09/23/2016 11:00 AM EDT Oxygen Saturation 98% 09/23/2016 11:00 AM EDT Inhaled Oxygen Concentration - - Weight 83 kg (183 lb) 09/23/2016 11:00 AM EDT shoes of f Height - - Body Mass Index 31.87 09/03/2016 7:58 AM EDT documented in this encounter Progress Notes Ronnie Vazquez MD - 09/23/2016 12:00 PM EDT Images from the original note were not included. RADIATION ONCOLOGY - Weekly On Treatment Visit Note 09/23/16 Ronnie Vazquez MD Radiation Oncology [facility] [phone] (paging form press operator) PATIENT IDENTIFICATION NAME: Nain Mckeon DATE [...] 79.2 Gy in 44 fractions Current Dose: 37.8 Gy in 21 fractions INTERVAL HISTORY Subjective: General - More fatigue this week. - LUTS slightly improved with Flomax 0.8mg qhs. Nocturia 3x / night (up from 1x/nt at baseline). Weak stream but denies straining. Denies other LUTS or dysuria. GI - Diarrhea earlier this week with incontinence. Resolved with Imodium and dietary modifications. Pain: Pain score today is 0/10. Medications 09/23/16 7485 Medication Sig Taking? calcium-vitamin D 500 mg(1,250mg) [...] other interval studies for review. EXAM: BP 127/75 Pulse 90 Temp 36.7 ??C (98.1 ??F) Resp 18 Wt 83 kg (183 lb) Comment: shoes off SpO2 98% BMI 31.87 kg/m2 Constitutional: he appears well-developed [...] far. Plan: Continue radiation therapy as planned. LUTS: add NSAID therapy to mid-day, continue Flomax 0.8mg qhs. documented in this encounter Plan of Treatment Upcoming Encounters Date Type Specialty Care Team Description 02/04/2022 Office Visit Radiation Oncology Rama Ramos APRN [facility] RADIATION [place], [place] [address] (Wo rk) documented as of this encounter Visit Diagnoses Diagnosis Cancer of prostate with high recurrence risk (stage T3a or [place] 8-10 or PSA > 20) Malignant neoplasm of prostate documented in this encounter Care Teams Foam Rubber Curer Relationship Specialty Start Date End Date Celio Sanders MD PCP - General Internal Medicine 05/19/16 [address] [place] [address] documented as of this encounter
--- OUTSIDE RECORDS SUMMARY | 2022-01-25 12:39 | XMS_ITS | Encounter Summary ---
:1950 Author Organization [facility] [place] [address] Care Team Providers Name Role Phone Celio Sanders MD Primary Care Provider Reason for Visit Reason Comments On Treatment Visit Encounter Details Date Type Department Care Team Description 08/31/2016 Office Visit Radiation Oncology at Ronnie Vazquez C ancer of prostate with high recurrence risk (stage T3a or [place] 8-10 or PSA > 20); [facility] 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 [address] [place] [address] [phone] (Wo rk) Social History Tobacco Use Types [...] Sign Reading Time Taken Comments Blood Pressure 118/68 08/31/2016 8:21 AM EDT Pulse 68 08/31/2016 8:21 AM EDT Temperature - - Respiratory Rate 16 08/31/2016 8:21 AM EDT Oxygen Saturation 100% 08/31/2016 8:21 AM EDT Inhaled Oxygen Concentration - - Weight 82.4 kg (181 lb 11.2 oz) 08/31/2016 8:21 AM EDT Height - - Body Mass Index 31.19 07/22/2016 9:10 AM EDT documented in this encounter Progress Notes Ronnie Vazquez MD - 08/31/2016 7:30 AM EDT Images from the original note were not included. RADIATION ONCOLOGY - Weekly On Treatment Visit Note 08/31/16 Ronnie Vazquez MD Radiation Oncology [facility] [phone] (paging heavy media operator) PATIENT IDENTIFICATION NAME: Nain Mckeon DATE [...] 79.2 Gy in 44 fractions Current Dose: 10.8 Gy in 6 fractions INTERVAL HISTORY Subjective: General - Overall is tired but feels fair. - Nocturia 3x last night (1x/nt at baseline). Stream feels weaker but is still able to completelyempty. Denies other LUTS or dysuria. GI - No diarrhea. If anything he feels constipated. Pain: Pain score today is 0/10. Medications 08/31/16 0821 Medication Sig Taking? tamsulosin (FLOMAX) 0.4 mg [...] other interval studies for review. EXAM: BP 118/68 Pulse 68 Resp 16 Wt 82.4 kg (181 lb 11.2 oz) SpO2 100% BMI 31.19 kg/m2 Constitutional: he appears well-developed and well-nourished. [...] far. Plan: Continue radiation therapy as planned. Flomax rx sent to pharmacy (0.4mg qhs) documented in this encounter Plan of Treatment Upcoming Encounters Date Type Specialty Care Team Description 02/04/2022 Office Visit Radiation Oncology Rama Ramos APRN [facility] RADIATION [place], [place] [address] (Wo rk) documented as of this encounter Visit Diagnoses Diagnosis Cancer of prostate with high recurrence risk (stage T3a or [place] 8-10 or PSA > 20) Malignant neoplasm of prostate 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 documented in this encounter Care Teams Dredge Runner Relationship Specialty Start Date End Date Celio Sanders MD PCP - General Internal Medicine 05/19/16 [address] [place] [address] documented as of this encounter
--- OUTSIDE RECORDS SUMMARY | 2022-01-25 12:39 | XMS_ITS | Encounter Summary ---
:1950 [place] [address] Care Team Providers Name Role Phone eClio Sanders MD Primary Care Provider Encounter Details Date Type Department Care Team Description 08/03/2016 Anesthesia Event Main Operating Room Audie Denson MD [facility] [place] [address] [place] [address] [phone] Anesthesia Record Procedure Summary Procedure Name Responsible Anesthesia Start Anesthesia Stop Time Anesthesiologist Time PROSTATE IMPLANT Audie Frances MD 08/03/16 1332 08/03/16 151 4 GOLD COIL PROCEDURE (WRVU 13.46) (Perineum) Events Date Time Event Comment 08/03/2016 1302 1332 AN Verify 1332 Start 1332 An Start Data 1345 Anesthesia Ready 1503 an stop data 1509 Recovery or ICU Handoff Patient care was transferred to the destination unit staff after review of the patient's medica l history, current anesthetic/surgi joao status and plan, according to the Provider Handoff Checklist. 1514 Stop Name Total IV Lidocaine 50 mg Propofol 50 mg Propofol INF 779 mg levofloxacin (LEVAQUIN) 500 mg in dextrose 5% 100 mL 5 00 mg lactated Ringers infusion 1,000 mL 700 mL Agents Name O2 Blood No blood administrations on file. Lines, Drains, and Airways Type Details Placement Removal PIV 08/03/16; 1201; median 08/03/16 1201 by Kenna, 08/03/16 1620 by cubital vein (antecubital Josef Conner, VANNA Cristina l, VANNA Connolly), right; tlba-ang-cxlyez catheter system; 20 gauge, 3/4 in length; josef maria; intradermal injection, tolerated well; no longer indicated, removed per policy/procedure, catheter/device intact; 08/03/16; 1620 documented in this encounter Social History Tobacco [...] encounter OR Notes Anesthesia Postprocedure Evaluation - Audie Frances MD - 08/03/2016 5:49 PM EDT [facility] Department of Anesthesiology Post-procedure Note Patient: Nain Mckeon Procedure Summary Date Anesthesia Start Anesthesia Stop Room / Location 08/03/16 1332 1514 [facility] MIN[facility] SURGERY / [facility] MAIN OR Procedure Diagnosis Surgeon Responsible Provider PROSTATE IMPLANT GOLD COIL PROCEDURE (WRVU 13.46) (N/A Perineum) (PROSTATE CA GOLD COIL IMPLANT/ MINOR OR) Matthew Pelaez MD Nguyen, Tung T, MD All Anesthesia Providers: Anesthesiologist: Audie Frances MD COMMERCIAL PRINT SALESMAN: Rama Valdez CRNA Last (1hr) Vitals: BP Temp Pulse Resp SpO2 Patient Location: PACU/[facility] Level of Consciousness: Awake and Alert Pain Management: Satisfactory Analgesia PONV: None Cardiovascular Status: At Baseline Respiratory Status: At Baseline Postoperative Fluid Status: Intravascular EUvolemia Possible Anesthetic Complications: NONE apparent at time of evaluation Final Primary Anesthesia Type: MAC (The anesthetic type performed was the same as planned.) Comments: Anesthesia Preprocedure Evaluation - Audie Frances MD - 08/03/2016 11:19 AM EDT Images from the original note were not included. Pre-Anesthesia Evaluation for: Nain Mckeon a 65 y.o. male. Procedure(s): PROSTATE IMPLANT GOLD COIL PROCEDURE (WRVU 13.46) Patient Active Problem List Diagnosis ??? 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 Foreign travel Past Medical History: Diagnosis Date ??? Anxiety ??? Finger fracture multiple from basket ball injuries ??? Hyperlipidemia ??? Prostate cancer Past Surgical History: Procedure Laterality Date ??? APPENDECTOMY burst ??? CHOLECYSTECTOMY, LAPAROSCOPIC ??? PROSTATE BIOPSY Social History Substance Use Topics ??? Smoking status: Never Smoker ??? Smokeless tobacco: Never Used ??? Alcohol use Yes Comment: beer or wine a couple times a month, if that History Drug Use No No Known Allergies Medications: MAR and/or home medications have been reviewed. Physical Exam: There were no vitals filed for this visit. There is no height or weight on file to calculate BMI. Airway Assessment: Mallampati: II TM distance: >3 FB Neck ROM: full Cardiovascular Assessment: Rhythm: regular Rate: normal Pulmonary Assessment: breath sounds clear to auscultation Dental Assessment: Misc Assessment: Patient is wearing No contact(s). Anesthesia Plan: ASA 2 MAC, with a(n) intravenous induction Region - Other Informed Consent: Anesthetic plan and risks discussed with patient and spouse. PAT Staff Note Attending NOTE Brief HPI: 65 y.o. with prostate CA to OR for gold seed/coil placement Diagnosis ??? 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 Anxiety ??? Hypothyroidism ??? Hyperlipidemia ??? Prostate cancer METS:>4 Cardiac symptoms: denies EKG: none ECHO: none LABS: Type and Screen: No results found for: ABORH Past anesthetic problems: denies Previous airway notes (on eDH): none NPO status: Reviewed and appropriate Anesthetic Plan: MAC Monitoring: Standard ASA monitors documented in this encounter Plan of Treatment Upcoming Encounters Date Type Specialty Care Team Description 02/04/2022 Office Visit Radiation Oncology Richard Rama M, GOLF INSTRUCTOR [facility] ER RADIATION ONCOLO [facility], [place] [address] (Wo rk) documented as of this [...] 12:00 PM EDT 1,000 mLs 100 mL/hr levofloxacin (LEVAQUIN) 500 mg in dextrose 5% Given 1:32 PM EDT 500 mg 100 mL 500 mg, Intravenous, at 100 mL/hr, EVERY 24 HOURS, 1 dose, First dose on Tue08/03/16 at 1345, Day of Surgery (Day of Procedure), STAT, Indication for (Active or Suspected): Prophylaxis, Restricted Antibiotic: Please indicate the most appropriate choice: Pre-approved Indication (State the indication in Comments field) lidocaine (PF) (XYLOCAINE) 100 mg/5 mL (2 %) Given 7 1:41 PM EDT 50 mg injection PRN, Starting on Tue08/03/16 at 1341, Until Tu08/03/16 at 1518, Anesthesia Intra-op, Routine propofol (DIPRIVAN) 10 mg/mL bolus injection Given 7 1:41 PM EDT 50 mg (Anesthesia) PRN, Starting on e 08/03/16 at 1341, Until Tue08/03/16 at 1518, Anesthesia Intra-op propofol (DIPRIVAN) Rate/Dose 08/03/2016 2:47 100 mcg/kg/min 49.2 mL /hr infusion Change PM EDT CONTINUOUS PRN, Starting on Tue08/03/16 at 1341, Until Tue08/03/16 at 1518, Anesthesia Intra-op, Routine Rate/Dose Change 08/03/2016 1:59 PM EDT 125 mcg/kg/min 61.5 mL/hr New Bag 08/03/2016 1:41 PM EDT 150 mcg/kg/min 73.8 mL/hr documented in this encounter Care Teams Crew Supervisor Relationship Specialty Start Date End Date Celio Sanders MD PCP - General Internal Medicine 05/19/16 [address] [place] [address] documented as of this encounter
--- OUTSIDE RECORDS SUMMARY | 2022-01-25 12:39 | XMS_ITS | Encounter Summary ---
:1950 Author Organization [place] [address] Care Team Providers Name Role Phone Celio Sanders MD Primary Care Provider Reason for Visit Reason Onset Date Comments Prior Authorization 08/08/2017 NO AUTH REQUIRED FOR PSYI Encounter Details Date Type Department Care Team Description 08/08/2017 Telephone Psychiatry Edson Ferguson Prior Authorization (NO [facility] J AUTH REQU IRED FOR PSYI) [place] [address] Social History Tobacco Use Types Packs/Day Years Used Date Smoking Tobacco: Never Smokeless Tobacco: Never Alcohol Use Standard Drinks/Week Comments Yes 0 (1 standard drink = 0.6 oz pure alcoho l) beer and wine twice a month Sex Assigned at Date Recorded Not on file documented as of this encounter Miscellaneous Notes Telephone Encounter - Edson Ferguson - 08/08/2017 9:20 AM EDT AUTH NOT NEEDED Insurance Verified: MEDICARE SUPPLE,MENT Insurance Effective To/From Dates: 04/21/15 TO CPT/J-Code(s): NA Description of Procedure: PSYI Call Reference Number: MARION Spoke With: AUTOMATED LINE Patient Class: IPI Patient Class Change Requirements: NA Notes: I CALLED [facility], THIS IS A MEDICARE SUPPLEMENT PLAN, NO AUTH IS REQUIRED documented in this encounter Plan of Treatment Upcoming Encounters Date Type Specialty Care Team Description 02/04/2022 Office Visit Radiation Oncology Rama Ramos, LEATHER PRODUCTION WORKER [facility] ER RADIATION [place], [place] [address] (Wo rk) documented as of this encounter Visit Diagnoses Not on filedocumented in this encounter Care Teams Web Page Developer Relationship Specialty Start Date End Date Celio Sanders MD PCP - General Internal Medicine 05/19/16 [address] [place] [address] documented as of this encounter
--- OUTSIDE RECORDS SUMMARY | 2022-01-25 12:39 | XMS_ITS | Encounter Summary ---
:1950 Author Organization [facility] [place] [address] Care Team Providers Name Role Phone Celio Sanders MD Primary Care Provider Encounter Details Date Type Department Care Team Description 10/15/2016 Infusion Hematology Oncology at [address] [phone] Social History Tobacco Use Types Packs/Day Years Used Date Smoking Tobacco: Never Smokeless Tobacco: Never Alcohol Use Standard Drinks/Week Comments Yes 0 (1 standard drink = 0.6 oz pure beer o r wine a couple times a alcohol) month, if that Sex Assigned at Date Recorded Not on file documented as of this encounter Progress Notes Alta Muse RN - 10/15/2016 12:00 PM EDT Radiation Oncology Nurse Note [place], [place] 10/15/16 11:25 AM Patient states that he has 5 loose stools this morning and he is having trouble holding his bladder for the treatments with freq diarrhea. He asked for imodium now. Dr Sebastian gave order for imodium 2mg now which was administered at 11:40. 11:55 Patient is waiting for treatment and states he hasn't had an BM yet. I reviewed the following information with him Diarrhea management for patients receiving pelvic radiation: Follow a low roughage, low fiber diet.Also avoid any foods/beverages with high acid content. For example:Tomatoes, citrus and vinegar. Drink plenty of water;8-10 glasses/day Take 1 imodium tablet after each loose watery stool. Do not take more than 8 tabs per day. Notify physician if diarrhea is not relieved after 8 tabs. Call: [phone] [facility]) weekend/holidays: call [facility] ask for the client experience consultant Radiation Oncologist He states that he is eating bland food and had shredded wheat this morning. I instructed patient that shredded wheat is high in fiber and will cause more diarrhea. Patient verbalized understanding of these instructions. 12:15 Radiation Therapists informed me that patient was unable to stay on the treatment table due todiarrhea and went home. documented in this encounter Plan of Treatment Upcoming Encounters Date Type Specialty Care Team Description 02/04/2022 Office Visit Radiation Oncology Rama Ramos APRN [facility] RADIATION [place], [place] [address] (Wo rk) documented as of this encounter Visit Diagnoses Diagnosis Malignant neoplasm of prostate documented in this encounter Administered Medications Inactive Administered Medications - up to 3 most recent administrations Medication Order MAR Action Action Date Dose Rate Site loperamide (IMODIUM) capsule 2 mg Given 10/15/2016 11:40 AM EDT 2 mg 2 mg, Oral, ONCE, 1 dose, On Tue10/15/16 at 1200, Do not exceed 16 mg/day., Routine documented in this encounter Care Teams Target Trimmer Relationship Specialty Start Date End Date Celio Sanedrs MD PCP - General Internal Medicine 05/19/16 [address] [place] [address] documented as of this encounter
--- OUTSIDE RECORDS SUMMARY | 2022-01-25 12:39 | XMS_ITS | Encounter Summary ---
:1950 Author Organization [facility] [place] [address] Care Team Providers Name Role Phone Celio Sanders MD Primary Care Provider Reason for Visit Reason Onset Date Comments Lorna 07/27/2017 Encounter Details Date Type Department Care Team Description 07/27/2017 Telephone Psychiatry and Behavioral Hannah Bowens RN [facility] [place] [address] Social History Tobacco Use Types Packs/Day Years Used Date Smoking Tobacco: Never Smokeless Tobacco: Never Alcohol Use Standard Drinks/Week Comments Yes 0 (1 standard drink = 0.6 oz pure beer o r wine a couple times a alcohol) month, if that Sex Assigned at Date Recorded Not on file documented as of this encounter Miscellaneous Notes Telephone Encounter - Angela Bowens RN - 07/27/2017 12:47 PM EDT Patient called crisis line to inquire about a bed on the inpatient unit. I informed him that I was in outpatient and had no contact with the inpatient units, and inquired into his reason for the crisisline call. Patient reported that he was Manic, and didn't want to get into trouble or into that crazy stuff like in 2003. Apparently in 2003 he was arrested following an inpatient stay. Patient hasbipolar disorder, and is being treated for metastatic prostate cancer at the [facility]. He reports that he has been in senior care for 2 days. This was clarified to be voicemail senior care for 2 days. In talking with the patient he further explained that his purpose of the call wa s to inquire about an inpatient bed because he'd been put on prednisone 5mg daily, in June, to be taken with his chemotherapy medication (zytiga). Patient reported that his therapist, David Fleming, had seen him on Tuesday and told him to go check in. I spoke directly with Dr. Fleming, Nain has been stable for the last 4-5 years taking lamictal 75mg daily. For episodes of Hypomania, his dose was bumpedup to 150mg daily as well as klonopin 2mg alternating with 50mg benadryl at night for sleep. Patientwas achieving approximately 7 hours sleep with this regime, which he initiated himself on Tuesday. Dr. Fleming reports that patient is completely out of character. Demonstrating intense lability, crying at visit, verbal escalation with profanity and angry statements. reported that he has not seen Nain this volitile in all the years he's treated him, and was not sure how to go about getting Nain what he needed, given his chemotherapy treatment. Pt's oncologist Dr. Snyder was contacted to weigh in on the patient's current state of mind. Patient met with him yesterday and was described as tense, untrusting', confrontational, argumentative and hostile toward MD. Dr. Snyder suggestedto patient to discontinue the current regimn due to his instability of mood. Patient became upset and believes that the dr doesn't understand what he(nain) is asking. When in fact, the instability of mo od was not an issue until he started daily prednisone last month with this chemo med. Plan: Dr. Snyder suggested again, for patient to stop Prednisone and Zytiga given the situation. He reports that the patient's mental health and stability is more important at this current time. Patient's therapist was informed of this, and will take it from here. In contacting Nain and relaying that he should discontinue the medications and will discuss/provide guidance for patient to stabilizecurrent mood. documented in this encounter Plan of Treatment Upcoming Encounters Date Type Specialty Care Team Description 02/04/2022 Office Visit Radiation Oncology Rama Ramos, MANAGER SOFTWARE [facility] ER RADIATION [place], [place] [address] (Wo rk) documented as of this encounter Visit Diagnoses Not on filedocumented in this encounter Care Teams Bellhop Captain Relationship Specialty Start Date End Date Celio Sanders MD PCP - General Internal Medicine 05/19/16 [address] [place] [address] documented as of this encounter
--- OUTSIDE RECORDS SUMMARY | 2022-01-25 12:39 | XMS_ITS | Encounter Summary ---
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; [facility] Malignant neoplasm of prostate [address] [place] [phone] HEMATOLOGY/ONCOLOG [phone] [place], [place] [address] Social History Tobacco Use Types [...] Oncology Rama Ramos APRN [facility] RADIATION [place], [place] [address] (Wo rk) documented as of this encounter Visit Diagnoses Diagnosis 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
--- OUTSIDE RECORDS SUMMARY | 2022-01-25 12:39 | XMS_ITS | Encounter Summary ---
:1950 Author Organization [facility] [address] Care Team Providers Name Role Phone Celio Sanders MD Primary Care Provider Encounter Details Date Type Department Care Team Description 07/29/2016 Telephone Radiation Oncology a t [facility] [place] [address] Social History Tobacco Use Types Packs/Day Years Used Date Smoking Tobacco: Never Smokeless Tobacco: Never Alcohol Use Standard Drinks/Week Comments Yes 0 (1 standard drink = 0.6 oz pure beer o r wine a couple times a alcohol) month, if that Sex Assigned at Date Recorded Not on file documented as of this encounter Miscellaneous Notes Telephone Encounter - Nicky Marcelo - 07/29/2016 11:06 AM EDT L/M ON BOTH PHONES ASKING THE PA TO LET US KNOW IF HE WANTS THE SPACE OAR GEL documented in this encounter Plan of Treatment Upcoming Encounters Date Type Specialty Care Team Description 02/04/2022 Office Visit Radiation Oncology Rama Ramos APRN [facility] RADIATION [place], [place] [address] (Wo rk) documented as of this encounter Visit Diagnoses Not on filedocumented in this encounter Care Teams Sales And Training Specialist Relationship Specialty Start Date End Date Celio Sanders MD PCP - General Internal Medicine 05/19/16 [address] [place] [address] documented as of this encounter
--- OUTSIDE RECORDS SUMMARY | 2022-01-25 12:39 | XMS_ITS | Encounter Summary ---
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 [address] [place] [id number] HEMATOLOGY/ONCOLOG [phone] [place], [place] [address] Social History Tobacco Use Types [...] Sign Reading Time Taken Comments Blood Pressure 143/80 07/26/2017 3:52 PM EDT Pulse 87 07/26/2017 3:52 PM EDT Temperature 36.2 ??C (97.2 ??F) 07/26/2017 3:52 PM EDT Respiratory Rate 18 07/26/2017 3:52 PM EDT Oxygen Saturation 99% 07/26/2017 3:52 PM EDT Inhaled Oxygen Concentration - - Weight 80.3 kg (177 lb) 07/26/2017 3:52 PM EDT Height 161.4 cm (5' 3.54) 07/26/2017 3:52 PM EDT latrice verma Body Mass Index 30.82 07/26/2017 3:52 PM EDT documented in this encounter Progress Notes Harjinder Snyder MD - 07/26/2017 3:30 PM EDT Diagnosis: prostate cancer Subjective: My [...] Andre 4+4 disease in 2 cores and [place] 4+3 disease in 3 additional cores. All [...] fatigue and decrease in muscle strength. Nain noted improvement in his urinary symptoms. ?? Interval history: Mr. Mckeon is in clinic for follow-up appointment on prostate cancer. He followed with oncologist in [place] initiated abiraterone 250 mg daily with low-fat diet and prednisone 5 mg a day about 4 weeks ago. Nain feels that his bipolar disorder is [id number], but hefollows with therapist on that matter. He feels that prednisone is contributing to his brayan and anxiety. He denies any pain. 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 Anxiety ??? Finger fracture multiple from basket ball injuries ??? Hyperlipidemia ??? Prostate cancer Social History: No interval changes since last visit. Nonsmoker, drinks 1 or 2 shots of alcohol a week, he is a retired used to work for a [employer] company. He has 2 children. Lives at home with his . Social History Social History ??? Marital status: Spouse name: N/A ??? Number of children: N/A ??? Years of education: N/A Occupational History ??? 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 If you have any questions, ask [...] by mouth daily. 40 mg Refills: 0 predniSONE 5 mg Tab Commonly known as: DELTASONE Take 5 mg by mouth daily. 5 mg Refills: 0 tamsulosin 0.4 mg Cp24 Commonly known as: FLOMAX Take 2 capsules by mouth nightly. 0.8 mg Quantity: 60 tablet Refills: PRN TURMERIC ROOT EXTRACT ORAL Take 1 capsule by mouth 2 times daily. 1 capsule Refills: 0 ZYTIGA 250 mg Tab Take 1 tablet by mouth daily. Generic drug: abiraterone 1 tablet Refills: 0 STOPPED Medications calcium-vitamin D 500 mg(1,250mg) -200 unit Tab Review of Systems: Constitutional: Fatigue HEENT: Negative [...] axillary nodes normal Neurologic: Normal Vitals BP 143/80 (Patient Position: Sitting) Pulse 87 Temp 36.2 ??C (97.2 ??F) (Oral) Resp 18 Ht 161.4 cm (5' 3.54) Comment: copied Wt 80.3 kg (177 lb) SpO2 99% BMI 30.82 kg/m2 Pathology: 05/17/16 Extradepartmental number: ??[id number]; collection date, 04/27/2016. A - Prostatic core needle biopsy, right lateral base: ? 1. Adenocarcinoma, grade group 3, [place] grade 4+3, ?involving 95% of the biopsy core. ? 2. Perineural invasion identified. B - Prostatic core needle biopsy, right medial base: ? 1. Adenocarcinoma, grade group 3, [place] grade 4+3, ?involving 95% of the biopsy [...] and Plan: Diagnosis: Prostate adenocarcinoma, PSA 47.5, [place] 4+4=8/10, Stage [id number]. Treatment: - 05/31/16 Lupron 22.5 and bicalutamide 50 mg a day - 08/24/16 - 10/27/16 XRT Mr. Mckeon has prostate adenocarcinoma with very high risk for recurrence. He received concurrent radiation and androgen deprivation therapy. And he is currently on Lupron and abiraterone 250 mg was prednisone 5 mg a day since June 2017. The standard dose of abiraterone is 1000 mg a day on empty stomach. Due to financial constraints andbased on the small clinical phase II trial he is using 250 mg of abiraterone. (Prospective International Randomized Phase II Study of Low-Dose Abiraterone With Food Versus Standard Dose Abiraterone In Castration- Resistant Prostate Cancer. Minesh Dhillon at al. Clinical Oncology 36, no. 14 (July 14 2018) [phone]). He is concerned that prednisone is contributing to his brayan, so he would like to stop it. I explained to Mr. Mckeon that radiation and 2-3 years or hormonal therapy is a standard treatment for his prostate cancer. There is no data on use of abiraterone without prednisone. We do not have good long-term data on using 250 mg of abiraterone either. I recommended to hold abiraterone and prednisone together. Mr. Mckeon got upset and irritated. He would like to continue current abiraterone dose and stop prednisone. He told me that he will let us know if he develops any side effects of abiraterone after stopping prednisone. He has mild elevation of his AST. We will continue to check his liver enzymes every 2 weeks. I will see him back in about 2 months. Continue Lupron as scheduled #Bipolar disorder: Follows with his counselor Plan: 1. Continue ADT 2. Repeat CMP in 2 weeks 3. Next visit in 1 month. Sean patient is accompanied by his . 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
--- OUTSIDE RECORDS SUMMARY | 2022-01-25 12:39 | XMS_ITS | Encounter Summary ---
:1950 Author Organization [facility] [place] [address] Care Team Providers Name Role Phone Celio Sanders MD Primary Care Provider Encounter Details Date Type Department Care Team Description 07/16/2016 Telephone Radiation Oncology [place] [facility] [place] [facility] [place] [address] Social History Tobacco Use Types Packs/Day Years Used Date Smoking Tobacco: Never Smokeless Tobacco: Never Alcohol Use Standard Drinks/Week Comments Yes 0 (1 standard drink = 0.6 oz pure beer o r wine a couple times a month alcohol) Sex Assigned at Date Recorded Not on file documented as of this encounter Miscellaneous Notes Telephone Encounter - Fozia Nicky Gallegos - 07/16/2016 11:30 AM EDT Spoke w/ pt re: all appts related to gold coils and minor or documented in this encounter Plan of Treatment Upcoming Encounters Date Type Specialty Care Team Description 02/04/2022 Office Visit Radiation Oncology Rama Ramos APRN [facility] RADIATION [place], [place] [address] (Wo rk) documented as of this encounter Visit Diagnoses Not on filedocumented in this encounter Care Teams Associate Medical Director Relationship Specialty Start Date End Date Celio Sanders MD PCP - General Internal Medicine 05/19/16 [address] [place] [address] documented as of this encounter
--- OUTSIDE RECORDS SUMMARY | 2022-01-25 12:39 | XMS_ITS | Encounter Summary ---
:1950 Author Organization [facility] [address] Care Team Providers Name Role Phone Celio Sanders MD Primary Care Provider Encounter Details Date Type Department Care Team Description 09/30/2016 Office Visit Radiation Oncology at Ronnie Vazquez N eoplasm of prostate [facility] regional lymph node [address] staging category pN1: [place], [place] [id number] [place], [place] regional nodes [phone] (Wo rk) Social History Tobacco Use Types [...] Sign Reading Time Taken Comments Blood Pressure 124/78 09/30/2016 12:00 PM EDT Pulse 88 09/30/2016 12:00 PM EDT Temperature 36.7 ??C (98.1 ??F) 09/30/2016 12:00 PM EDT Respiratory Rate 16 09/30/2016 12:00 PM EDT Oxygen Saturation 100% 09/30/2016 12:00 PM EDT Inhaled Oxygen Concentration - - Weight 82.6 kg (182 lb 3.2 oz) 09/30/2016 12:00 PM shoe s off EDT Height - - Body Mass Index 31.73 09/03/2016 7:58 AM EDT documented in this encounter Progress Notes Ronnie Vazquez MD - 09/30/2016 12:30 PM EDT Images from the original note were not included. RADIATION ONCOLOGY - Weekly On Treatment Visit Note 09/30/16 Ronnie Vazquez MD Radiation Oncology [facility] [phone] (paging buffing wheel operator) PATIENT IDENTIFICATION NAME: Nain Mckeon DATE [...] 79.2 Gy in 44 fractions Current Dose: 46.8 Gy in 26 fractions INTERVAL HISTORY Subjective: General - More fatigue this week. Denies hot flashes. - LUTS slightly improved with Flomax 0.8mg qhs (staggering in the late afternoon and early evening). Slightly dysuria at end of stream, rated 1/10. Nocturia 3x / night (up from 1x/nt at baseline). Denies other LUTS. GI - More frequent soft BMs (4-5x/day), no diarrhea. More gas as well. He has not taken any Imodium or made any dietary modifications. Pain: Pain score today is 0/10. Medications 09/30/16 1237 Medication Sig Taking? tamsulosin (FLOMAX) 0.4 mg [...] other interval studies for review. EXAM: BP 124/78 Pulse 88 Temp 36.7 ??C (98.1 ??F) Resp 16 Wt 82.6 kg (182 lb 3.2 oz) Comment: shoes off SpO2 100% BMI 31.73 kg/m2 Constitutional: he appears well-developed and well-nourished. [...] Radiation Oncology Rama Ramos APRN 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
--- OUTSIDE RECORDS SUMMARY | 2022-01-25 12:39 | XMS_ITS | Encounter Summary ---
:1950 Author Organization [facility] [place] [address] Care Team Providers Name Role Phone Celio Sanders MD Primary Care Provider Reason for Visit Reason Comments On Treatment Visit Encounter Details Date Type Department Care Team Description 08/26/2016 [facility] regional lymph node staging category pN1: metastasis in regional nodes; [facility] [place] Malignant neoplasm of prostate; [address] Cancer of prostate with high recurrence risk (stage T3a or [place] 8-10 or PSA > 20) [facility] [place] [address] [phone] (Wo rk) Social History Tobacco Use Types [...] Sign Reading Time Taken Comments Blood Pressure 114/80 08/26/2016 8:07 AM EDT Pulse 72 08/26/2016 8:07 AM EDT Temperature 36.3 ??C (97.3 ??F) 08/26/2016 8:07 AM EDT Respiratory Rate 20 08/26/2016 8:07 AM EDT Oxygen Saturation 98% 08/26/2016 8:07 AM EDT room ai r Inhaled Oxygen Concentration - - Weight 81 kg (178 lb 9.6 oz) 08/26/2016 8:07 AM EDT Height - - Body Mass Index 30.66 07/22/2016 9:10 AM EDT documented in this encounter Progress Notes Ronnie Vazquez MD - 08/26/2016 7:45 AM EDT Images from the original note were not included. RADIATION ONCOLOGY - Weekly On Treatment Visit Note 08/26/16 Ronnie Vazquez MD Radiation Oncology [facility] [phone] (paging french folding machine operator) PATIENT IDENTIFICATION NAME: Nain Mckeon [...] 79.2 Gy in 44 fractions Current Dose: 7.2 Gy in 3 fractions INTERVAL HISTORY Subjective: General - No changes since last seen. Started this week. - Nocturia 1x/nt at baseline. Denies other LUTS. GI - No diarrhea. Pain: Pain score today is 0/10. Medications 08/26/16 1412 Medication Sig Taking? mirtazapine (REMERON) 30 mg Tablet Take 30 [...] other interval studies for review. EXAM: BP 114/80 (Patient Position: Sitting) Pulse 72 Temp 36.3 ??C (97.3 ??F) (Oral) Resp 20 Wt 81kg (178 lb 9.6 oz) SpO2 98% Comment: room air BMI 30.66 kg/m2 Constitutional: he appears well-developed and well-nourished. [...] far. Plan: Continue radiation therapy as planned. Lupron today. Lili Darling RN - 08/26/2016 7:45 AM EDT MEDICATION ADMINISTRATION MEDICATION: LUPRON DEPOT DOSE: 22.5 mg ROUTE: IM SITE: left gluteal ORDERED BY: Dr Vazquez ADMINISTERED BY: Lili Darling RN DIAGNOSIS: Prostate Ca (185) ASSESSMENT: Patient identified using 2 means. Site cleaned with alcohol. Slight bleeding at site. 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 Malignant neoplasm of prostate Cancer of prostate with high recurrence risk (stage T3a or [place] 8-10 or PSA > 20) Malignant neoplasm of prostate documented in this encounter Administered Medications Inactive Administered Medications - up to 3 most recent administrations Medication Order MAR Action Action Date Dose Rate Site leuprolide (LUPRON) Given 08/26/2016 9:00 AM EDT 22.5 mg Left Gluteal injection 22.5 mg 22.5 mg, Intramuscular, ONCE, 1 dose, On Colleen 08/26/16 at 0900, Routine documented in this encounter Care Teams Mirror Machine Feeder Relationship Specialty Start Date End Date Celio Sanders MD PCP - General Internal Medicine 05/19/16 [address] [place] [address] documented as of this encounter
--- OUTSIDE RECORDS SUMMARY | 2022-01-25 12:39 | XMS_ITS | Encounter Summary ---
:1950 Author Organization [place] [address] Care Team Providers Name Role Phone Celio Sanders MD Primary Care Provider Reason for Visit Reason Onset Date Comments Medication Refill 09/24/2016 Encounter Details Date Type Department Care Team Description 09/24/2016 [facility] RN prostate (Primary Dx) [address] [place] [phone] Social History Tobacco Use Types Packs/Day Years [...] Office Visit Radiation Oncology Rama Ramos APRN [facility] RADIATION [place], [place] [address] (Wo rk) documented as of this encounter Visit Diagnoses Diagnosis Malignant neoplasm of prostate - Primary documented in this encounter Care Teams Shank Sorter Relationship Specialty Start Date End Date Celio Sanders MD PCP - General Internal Medicine 05/19/16 [address] [place] [address] documented as of this encounter
--- OUTSIDE RECORDS SUMMARY | 2022-01-25 12:39 | XMS_ITS | Encounter Summary ---
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 3:25 AM 018 (specimen) EDT 10:40 AM EDT Resulting Agency Comment Spec In Lab Mitra Gaviria MD URINE ORDERABLES Performing Organization Address City/State/[place] [address] Benzodiazepine, Urine Confirmation (08/06/2017 3:25 AM EDT) Component Value Ref Test Analysis Performed At [facility] Range Method Time Signature U Benzo Conf NICKY Test ?Result ? Flag ??Unit ?? RefValue [facility] Benzodiazepines Confirmation, U HOSPITAL ??Nordiazepam-by GC/MS ?Negative ? ng/mL ??Cutoff: 100 LABORATORY ??Oxazepam-by GC/MS ? Negative ? ng/mL ??Cutoff: 100 ??Lorazepam-by GC/MS ?Negative ? ng/mL ??Cutoff: 100 ?Testing performed at a x2 dilution; limit of quantitat ion ?is elevated. ??Temazepam-by GC/MS ?Negative ? ng/mL ??Cutoff: 100 ??WF-Vvksv-Fqavyqhnza-by GC /MS ?Negative ? ng/mL ??Cutoff: 100 ??7-OH-Ahfbbsbnxf-by GC/MS ?983 ?ng/mL ??Cutoff: 100 ??Alpha SI-Dkniywllnn-ff GC /MS ?Negative ? ng/mL ??Cutoff: 100 ??0-ZD-Nufwvbkbrufvl-by GC/ MS ? Negative ? ng/mL ??Cutoff: 50 ??Alpha FB-Izsakrati-ie GC/ MS ? Negative ? ng/mL ??Cutoff: 100 ??Benzodiazepines Interpretation ?Positive. ? ADDITIONAL INFORMATION ------ ?This report is intended for use in clinical monitoring and ?management of patients. ??It is not intended for use i n ?employment-related testing. ?This test was developed and its performance characteri stics ?determined by [facility] in a manner consistent with CLIA ?requirements. This test has not been cleared or approv ed by ?the U.S. Food and Drug Administration. ?Test Performed by: ?[facility] ?[address] [place] [address] Specimen Anatomical Collection Method Collection Time Receive d Time (Source) Location / / Volume Laterality Urine specimen 08/06/2017 3:25 AM 018 (specimen) EDT 10:24 AM EDT Resulting Agency Comment Spec In Lab Mitra Gaviria MD URINE ORDERABLES Performing Organization Address City/State/[place] [address] (ABNORMAL) Rapid Drug Screen w/ Confirmation, Urine (08/06/2017 3:25 AM EDT) [facility] Method Time Signature U Barbiturates None None [facility] Screen Detected Detected [facility] LABORATORY Comment: The barbiturate screen detects barbitura lucinda at concentrations >200 ng/mL. Note: Not all barbiturates cross-react equally with antibody used in this screen. A ? Presumptive Positive? result indicates that the screening result was positive but has not yet been confirmed by a highly-specific method. As with any screen, occasional false positive re sults from cross-reacting substances may occur. Not for Medico-Legal Purposes. U Benzodiazepines Screen Presumptive Pos (A) None Detected [facility] LABORATORY Comment: The benzodiazepines screen detects benzo diazepines at concentrations >100 ng/mL. Not all benzodiazepines cross-seferino ct equally with antibody used in this screen. Due to the low dosage of clonaze rod, false negatives may be obtained due to low concentration of clonazepam m etabolites. A ? Presumptive Positive? result indicates that the screening result was positive but has not yet been confirmed by a highly-specific method. As with any screen, occasional false positive re sults from cross-reacting substances may occur. Not for Medico-Legal Purposes. U Cocaine Screen None Detected None Detected [facility] LABORATORY Comment: The cocaine metabolites screen detects b enzoylecgonine (Cocaine Metabolite) at concentrations >150 ng/mL. A ? Presumptive Positive? result indicates that the screening result was positive but has not yet been confirmed by a highly-specific method. As with any screen, occasional false positive re sults from cross-reacting substances may occur. Not for Medico-Legal Purposes. U Methadone Metabolites None Detected None Detected [facility] LABORATORY Comment: The methadone metabolite screen detects EDDP (major methadone metabolite) at concentrations >100 ng/mL. A ? Presumptive Positive? result indicates that the screening result was positive but has not yet been confirmed by a highly-specific method. As with any screen, occasional false positive re sults from cross-reacting substances may occur. Not for Medico-Legal Purposes. U Opiate Screen None Detected None Detected [facility] LABORATORY Comment: The opiates screen detects opiates at co ncentrations >300 ng/mL. Please note that oxycodone, oxymorphone, fentanyl, tramadol, and other synthetic opioids are not detected by e opiate screen. A ? Presumptive Positive? result indicates that the screening result was positive but has not yet been confirmed by a highly-specific method. As with any screen, occasional false positive re sults from cross-reacting substances may occur. Not for Medico-Legal Purposes. U Cannabinoid Screen None Detected None Detected [facility] LABORATORY Comment: The marijuana metabolites screen detects the THC metabolite (49-mxp-1-carboxy-delta 9-THC) at concen trations >20 ng/mL. A ? Presumptive Positive? result indicates that the screening result was positive but has not yet been confirmed by a highly-specific method. As with any screen, occasional false positive re sults from cross-reacting substances may occur. Not for Medico-Legal Purposes. U Oxycodone Screen None Detected None Detected [facility] LABORATORY Comment: The oxycodone screen detects oxycodone a nd oxymorphone at concentrations >100 ng/mL. A ? Presumptive Positive? result indicates that the screening result was positive but has not yet been confirmed by a highly-specific method. As with any screen, occasional false positive re sults from cross-reacting substances may occur. Not for Medico-Legal Purposes. U Buprenorphine Screen None Detected None Detected [facility] LABORATORY Comment: The buprenorphine screen detects bupreno rphine at concentrations >5 ng/mL. A ? Presumptive Positive? result indicates that the screening result was positive but has not yet been confirmed by a highly-specific method. As with any screen, occasional false positive re sults from cross-reacting substances may occur. Not for Medico-Legal Purposes. U Fentanyl Screen None Detected None Detected [facility] LABORATORY Comment: The fentanyl screen detects fentanyl at concentrations >2 ng/mL. A ? Presumptive Positive? result indicates that the screening result was positive but has not yet been confirmed by a highly-specific method. As with any screen, occasional false positive re sults from cross-reacting substances may occur. Not for Medico-Legal Purposes. U Tricyclics Screen Presumptive Pos (A) None Detected [facility] LABORATORY Comment: The tricyclics screen detects tricyclic antidepressants at concentrations >150 ng/mL. Not all tricyclics cross-react eq ually with the antibody used in this screen. A ? Presumptive Positive? result indicates that the screening result was positive but has not yet been confirmed by a highly-specific method. As with any screen, occasional false positive re sults from cross-reacting substances may occur. Not for Medico-Legal Purposes. U Ethanol Screen None Detected None Detected [facility] LABORATORY Comment: This urine ethanol assay detect s ethanol at concentrations >/= 100 mg/L. U Amphetamines Screen None Detected None Detected [facility] LABORATORY Comment: The amphetamine screen detects d-ampheta mine and d-methamphetamine at concentrations >300 ng/mL. A ? Presumptive Positive? result indicates that the screening result was positive but has not yet been confirmed by a highly-specific method. As with any screen, occasional false positive re sults from cross-reacting substances may occur. Not for Medico-Legal Purposes. U Adulterants Screen None Detected None Detected Nesha BROOKE [facility] LABORATORY Comment: No adulteration or dilution of this urin e sample was detected. All urine samples submitted for urine drugs of abu se analysis are tested for creatinine concentration, pH, and for the presence of oxidants, nitrites, and chromate. Specimen Anatomical Collection Method Collection Time Receive d Time (Source) Location / / Volume Laterality Urine specimen 08/06/2017 3:25 AM 018 4:17 (specimen) EDT AM EDT Resulting Agency Comment Spec In Lab Mitra Gaviria MD CHEMISTRY ORDERABLES Performing Organization Address City/State/[place] [address] Rapid Drug Screen, Urine (JIM Request) (08/06/2017 3:25 AM EDT) [facility] Method Time Signature JIM Conf Yes [facility] LABORATORY JIM Requested See Comment [facility] LABORATORY Comment: Refer to Rapid Drug Screen w/ C onfirmation, Urine for results. Specimen Anatomical Collection Method Collection Time Receive d Time (Source) Location / / Volume Laterality Urine specimen 08/06/2017 3:25 AM 018 4:17 (specimen) EDT AM EDT Resulting Agency Comment Spec In Lab Mitra Gaviria MD URINE ORDERABLES Performing Organization Address City/[facility]/[place] [address] (ABNORMAL) Urinalysis Microscopic Exam (08/06/2017 3:18 AM EDT) P athologist Signature RBC UA 3 0 - 3 /HPF [facility] LABORATORY WBC UA 1 0 - 3 /HPF [facility] Squam Epith UA <1 <=4 /HPF [facility] CaOx [place] UA Few (A) None /HPF [facility] LABORATORY Specimen (Source) Anatomical Collection Method Collection Time Re ceived Time Location / / Volume Laterality Urine specimen 08/06/2017 3:18 08/06/2017 3:28 obtained by clean AM EDT AM EDT catch procedure (specimen) Resulting Agency Comment Spec In Lab Mitra Gaviria MD URINE ORDERABLES Performing Organization Address City/[facility]/ZIP [facility] [place] [place] [address] (ABNORMAL) Urinalysis with reflex Culture (08/06/2017 3:18 AM EDT) Patholo gist Method Time Signature Glucose [facility]A Negative [facility] Protein UA 30 (A) Negative [facility] Bilirubin UA Negative Negative [facility] mg/dL [facility] Comment: Clinical correlation required for positi ve Urine Bilirubin results as false positive may occur with some drugs and d rug related products. If a false positive is suspected a serum total bili israel should be considered if clinically indicated. Urobilinogen UA Normal Normal mg/dL [facility] LABORATORY pH UA 6.0 5.0 - 8.0 [facility] LABORATORY Blood UA Negative Negative mg/dL [facility] Ketones UA 5 (A) Negative mg/dL [facility] Nitrite UA Negative Negative [facility] LABORATORY Leukocytes UA Negative Negative [facility] LABORATORY Appearance UA Clear Clear [facility] LABORATORY Spec [place] UA 1.028 1.002 - 1.030 [facility] LABORATORY Color UA Yellow Yellow [facility] LABORATORY Culture Reflexed No [facility] LABORATORY Specimen (Source) Anatomical Collection Method Collection Time Re ceived Time Location / / Volume Laterality Urine specimen 08/06/2017 3:18 08/06/2017 3:28 obtained by clean AM EDT AM EDT catch procedure (specimen) Resulting Agency Comment Spec In Lab Mitra Gaviria MD URINE ORDERABLES Performing Organization Address City/[facility]/ZIP Code Phon e Number [address] Blue Tube HOLD (08/06/2017 3:10 AM EDT) P athologist Signature Blue Hold Sample in [facility] LABORATORY Specimen Anatomical Collection Method Collection Time Receive d Time (Source) Location / / Volume Laterality Blood specimen Venous Draw / 08/06/2017 3:10 AM 2017 3:24 (specimen) Unknown EDT AM EDT Mitra Gaviria MD HEMATOLOGY ORDERABLES Performing Organization Address City/[facility]/ZIP [facility] Phon e Number [address] Differential, Automated (08/06/2017 3:10 AM EDT) P athologist Signature Neutrophils % 56.3 % [facility] LABORATORY Neutr Abs (ANC) 3.99 1.70 - [facility] 6.10 [facility] x10(3)/[facility] LABORATORY Lymphocytes % 29.7 % [facility] LABORATORY Lymphocytes Abs 2.1 0.9 - 3.2 [facility] x10(3)/[place] LABORATORY Monocytes % 10.0 % [facility] LABORATORY Monocyte Abs 0.7 0.3 - 0.9 [facility] x10(3)/[place] LABORATORY Eosinophils % 3.5 % [facility] LABORATORY Eosinophils Abs 0.2 0.0 - 0.4 [facility] x10(3)/[place] LABORATORY Basophils % 0.4 % [facility] LABOR[facility]ORY Basophils Abs 0.0 0.0 - 0.1 [facility] x10(3)/[place] LABORATORY Immature Gran % 0.10 % [facility] LABORATORY Comment: Immature granulocytes(IG's)percentage an d absolute count will include metamyelocytes, myelocytes, and promyelo cytes. Blood smears from CBCs yielding IG's will be scanned manually for concor dance. If this scan disagrees with the automated IG or if promyelocytes are not ed, a manual differential will be performed. Renate Gran Abs 0.01 0.00 - 0.04 x10(3)/[facility] MAR Y [facility] LABORATORY Specimen Anatomical Collection Method Collection Time Receive d Time (Source) Location / / Volume Laterality Blood specimen 08/06/2017 3:10 AM 018 3:23 (specimen) EDT AM EDT Resulting Agency Comment Spec In Lab Mitra Gaviria MD HEMATOLOGY ORDERABLES Performing Organization Address City/State/[place] [address] (ABNORMAL) Hemogram (08/06/2017 3:10 AM EDT) Analysis Performed At Patho logist Time Signature WBC 7.1 4.0 - 9.5 [facility] x10(3)/[place] LABORATORY RBC 4.44 (L) 4.58 - [facility] 5.54 [facility] x10(6)/[facility] LABORATORY Hemoglobin 14.3 13.7 - [facility] 16.5 gm/dL [facility] LABORATORY Hematocrit 40.9 40.5 - [facility] 48.5 % [facility] MCV 92.1 82.9 - [facility] 93.1 fL [facility] LABORATORY MCH 32.2 (H) 27.5 - [facility] 32.1 pg [facility] LABORATORY MCHC 35.0 32.0 - NICKY BRAVO 35.7 gm/dL [facility] LABORATORY Platelets 267 145 - 357 [place]VO x10(3)/[place] LABORATORY RDWSD 42.5 36.0 - [place] BRAVO 45.0 [facility] LABORATORY RDWCV 12.5 11.4 - [place] BRAVO 13.8 % [facility] LABORATORY MPV 8.9 7.6 - 12.9 [facility] SHELLY [facility] LABORATORY nRBC % Auto 0.0 % [facility] LABORATORY nRBC Abs Auto 0.000 0.000 - [place] BRAVO 0.000 [facility] x10(3)/[facility] LABORATORY Specimen Anatomical Collection Method Collection Time Receive d Time (Source) Location / / Volume Laterality Blood specimen 08/06/2017 3:10 AM 018 3:23 (specimen) EDT AM EDT Resulting Agency Comment Spec In Lab Mitra Gaviria MD HEMATOLOGY ORDERABLES Performing Organization Address City/State/ZIP Code Phon e Number [address] Vitamin B12 (08/06/2017 3:10 AM EDT) athologist Signature Vitamin B-12 744 232 - 1,245 [facility] SHELLY pg/mL [facility] LABORATORY Comment: Please note: Effective 02/02/2017, the r eference interval and the lower limit of detection for Vitamin B12 have been u pdated due to a new reagent formulation. Specimen Anatomical Collection Method Collection Time Receive d Time (Source) Location / / Volume Laterality Blood specimen 08/06/2017 3:10 AM 018 3:23 (specimen) EDT AM EDT Resulting Agency Comment Spec In Lab Mitra Gaviria MD CHEMISTRY ORDERABLES Performing Organization Address City/State/ZIP Code Phon e Number [address] Folate, serum (08/06/2017 3:10 AM EDT) P athologist Signature Folate Lvl >20.0 4.8 - 24.2 [facility] ng/mL [facility] LABORATORY Specimen Anatomical Collection Method Collection Time Receive d Time (Source) Location / / Volume Laterality Blood specimen 08/06/2017 3:10 AM 018 3:23 (specimen) EDT AM EDT Resulting Agency Comment Spec In Lab Mitra Gaviria MD CHEMISTRY ORDERABLES Performing Organization Address City/[facility]/[place] [address] Ethanol Level (08/06/2017 3:10 AM EDT) athologist Signature Ethanol Lvl <100 <=99 mg/L [facility] LABORATORY Comment: Greater than 800 mg/L (0.08%) should be considered intoxicated. 3400 to 4500 mg/L (0.34 - 0.45%) is cons idered severe intoxication. Greater than 5500 mg/L (0.55%) is usuall y fatal. Specimen Anatomical Collection Method Collection Time Receive d Time (Source) Location / / Volume Laterality Blood specimen 08/06/2017 3:10 AM 018 3:23 (specimen) EDT AM EDT Resulting Agency Comment Spec In Lab Mitra Gaviria MD CHEMISTRY ORDERABLES Performing Organization Address City/[facility]/ZIP Code Phon e Number [address] (ABNORMAL) TSH (08/06/2017 3:10 AM EDT) athologist Signature TSH 4.60 (H) 0.27 - 4.20 [facility] SHELLY mlU/ML [facility] LABORATORY Specimen Anatomical Collection Method Collection Time Receive d Time (Source) Location / / Volume Laterality Blood specimen 08/06/2017 3:10 AM 018 3:23 (specimen) EDT AM EDT Resulting Agency Comment Spec In Lab Mitra Gaviria MD CHEMISTRY ORDERABLES Performing Organization Address City/[facility]/[place] [address] Basic Metabolic Panel (non-fasting) (08/06/2017 3:10 AM EDT) athologist Signature Glucose Lvl 95 65 - 199 [facility] mg/dL [facility] LABORATORY Comment: Diabetes: >=200 mg/dL plus symp toms BUN 20 10 - 20 mg/dL [facility] LABORATORY Creatinine 0.93 0.80 - 1.50 mg/dL [facility] LABORATORY Sodium 143 135 - 145 mmol/L [facility] LABORATORY Potassium 3.7 3.5 - 5.0 mmol/L [facility] LABORATORY Comment: Please note: ??Patients with WBC >100,00 0 may have falsely elevated Potassium levels. ??For accurate Potassium quantif ication in these patients send serum separator tube (gold top) for subsequent determinations. ??Contact the Clinical Chemistry Laboratory if there are any qu estions. Chloride 100 98 - 107 mmol/L [facility] LABOR[facility] CO2 31 22 - 31 mmol/L [facility] LAB[facility] Anion Gap 12 5 - 15 mmol/L [facility] LABORATORY Calcium 9.5 8.5 - 10.5 mg/dL [facility] LABORATORY Estimated GFR >60 >=60 [facility] LABORATORY Comment: The reported eGFR should be multiplied b y 1.2 for patients. The MDRD is not an appropriate measure o f renal function for patients with body mass extremes or in patients with acute kidney failure. http://Deminos/DHnkdep http://Deminos/DHMCnkf Specimen Anatomical Collection Method Collection Time Receive d Time (Source) Location / / Volume Laterality Blood specimen 08/06/2017 3:10 AM 018 3:23 (specimen) EDT AM EDT Resulting Agency Comment Spec In Lab Mitra Gaviria MD CHEMISTRY ORDERABLES Performing Organization Address City/State/[place] [address] documented in this encounter Visit Diagnoses Diagnosis Delirium Other alteration of consciousness Malignant neoplasm of prostate Bipolar II disorder Other bipolar disorders intermediate current use of systemic steroi ds Encounter for long-term (current) use of steroids Encounter for long-term (current) drug u se Encounter for long-term (current) use of other medications Toxic encephalopathy documented in this encounter Admitting Diagnoses Diagnosis Toxic encephalopathy documented in this encounter Administered Medications Inactive Administered Medications - up to 3 most recent administrations Medication Order MAR Action Action Date Dose Rate Site clonazePAM (KlonoPIN) tablet 1 mg Given 08/06/2017 3:34 AM EDT 1 mg 1 mg, Oral, ONCE, 1 dose, On 08/06/17 at 0333, STAT clonazePAM (KlonoPIN) tablet 1 mg Given 08/06/2017 8:59 AM EDT 1 mg 1 mg, Oral, ONCE, 1 dose, On 08/06/17 at 0826, STAT lamoTRIgine (LaMICtal) tablet 150 mg Given 08/06/2017 4:52 PM EDT 150 mg 150 mg, Oral, ONCE, 1 dose, On 08/06/17 at 1459, Routine OLANZapine zydis (ZyPREXA) disintegratin g tablet 5 mg 5 mg, Oral, NIGHTLY, First dose on Sat at 2100, Until Discontinued, Routine tamsulosin (FLOMAX) ER capsule 0.4 mg Given 08/06/2017 8:59 AM EDT 0.4 mg 0.4 mg, Oral, DAILY, First dose on 08/06/17 at 0900, Until Discontinued, DO NOT CRUSH OR OPEN, Routine documented in this encounter Active and Recently Administered Medications Times are shown in EDT. Scheduled Medication Order 08/04/2017 08/05/2017 08/06/2017 clonazePAM (KlonoPIN) tablet 1 mg (COMPLETED) 033 (Given - Provider: Riya Lee RN) 1 mg, Oral, ONCE, 1 dose, 08/06/17 at 0333, STAT clonazePAM (KlonoPIN) tablet 1 mg (COMPLETED) 0859 (Given - Provider: Aileen Rubi RN) 1 mg, Oral, ONCE, 1 dose, 08/06/17 at 0826, STAT lamoTRIgine (LaMICtal) tablet 150 mg (COMPLETED) 165 (Given - Provider: Aileen Rubi, VANNA) 150 mg, Oral, ONCE, 1 dose, 08/06/17 at 1459, Routine OLANZapine zydis (ZyPREXA) disintegrating tablet 5 mg 5 mg, Oral, NIGHTLY, First dose on 6 /2/18 at 2100, Until Discontinued, Routine tamsulosin (FLOMAX) ER capsule 0.4 mg 0859 (Given - Provider: Aileen Rubi RN) 0.4 mg, Oral, DAILY, First dose on Sat at 0900, Until Discontinued, DO NOT CRUSH OR OPEN, Routine documented in this encounter Care Teams Saloon Keeper Relationship Specialty Start Date End Date Celio Sanders MD PCP - General Internal Medicine 05/19/16 [address] [place] [address] documented as of this encounter
--- OUTSIDE RECORDS SUMMARY | 2022-01-25 12:39 | XMS_ITS | Encounter Summary ---
:1950 Author Organization [place] [address] Care Team Providers Name Role Phone Celio Sanders MD Primary Care Provider Encounter Details Date Type Department Care Team Description 05/30/2017 Orders Only Radiation Oncology at [facility] Alta Starr [facility] neoplasm of [facility] L, RN [address] [phone] Social History Tobacco Use Types Packs/Day Years [...] Office Visit Radiation Oncology Rama Ramos APRN [facility] RADIATION [place], [place] [address] (Wo rk) documented as of this encounter Visit Diagnoses Diagnosis Malignant neoplasm of prostate documented in this encounter Care Teams Apprenticeship Representative Relationship Specialty Start Date End Date Celio Sanders MD PCP - General Internal Medicine 05/19/16 [address] [place], [place] [id number] documented as of this encounter
--- OUTSIDE RECORDS SUMMARY | 2022-01-25 12:39 | XMS_ITS | Encounter Summary ---
:1950 Author Organization [facility] [place] [address] Care Team Providers Name Role Phone Celio Sanders MD Primary Care Provider Encounter Details Date Type Department Care Team Description 07/27/2016 Telephone Radiation Oncology a [facility] Harjeet Silvestre [address] [place] [phone] Social History Tobacco Use Types [...] Notes Telephone Encounter - Harjeet Silvestre - 07/27/2016 9:20 AM EDT Left a message for Nain asking him to call back regarding upcoming appointments. Plan to tell him that we were able to get both the MRI and SIM on the same day of 08/13. documented in this encounter Plan of Treatment Upcoming Encounters Date Type Specialty Care Team Description 02/04/2022 Office Visit Radiation Oncology Rama Ramos APRN [facility] RADIATION [place], [place] [address] (Wo rk) documented as of this encounter Visit Diagnoses Not on filedocumented in this encounter Care Teams Bailer Operators Supervisor Relationship Specialty Start Date End Date Celio Sanders MD PCP - General Internal Medicine 05/19/16 [address] [place] [address] documented as of this encounter
--- OUTSIDE RECORDS SUMMARY | 2022-01-25 12:39 | XMS_ITS | Encounter Summary ---
:1950 Author Organization [facility] [place] [address] Care Team Providers Name Role Phone Celio Sanders MD Primary Care Provider Reason for Visit Reason Comments Simulation Encounter Details Date Type Department Care Team Description 08/13/2016 Ancillary Appointment Radiation Oncology at [facility] [address] [place] [phone] (Wo rk) Social History Tobacco Use Types Packs/Day Years Used Date Smoking Tobacco: Never Smokeless Tobacco: Never Alcohol Use Standard Drinks/Week Comments Yes 0 (1 standard drink = 0.6 oz pure beer o r wine a couple times a alcohol) month, if that Sex Assigned at Date Recorded Not on file documented as of this encounter Patient Instructions Patient InstructionsLili Darling RN - 08/13/2016 12:00 PM EDT Radiation Therapy for Prostate Cancer Planning ?? A planning session (CT Simulation) and possibly an MRI will be scheduled for you. ?? These images are used to plan your radiation treatment. ?? At this visit you will receive small tattoo dots on your skin. These help janice exactly how you will be lined up on the radiation treatment table. ?? You will also be asked to have a comfortably full bladder for this simulation and for each radiation treatment. Urine in your bladder helps protect your bladder tissue from the radiation and helps keep some of your bowel out of the treatment area. About 2 weeks after simulation you will begin radiation treatments. What to Expect During Treatments. ?? Treatments are given in 15-30 minutes increments daily Tuesday through Tuesday during the hours of 7:30 am- 5 pm. ?? You may drive yourself to and from these appointments. You may request a certain time of day thatis convenient for you. ?? You may start feeling some side effects after a couple weeks. Side effects result from the radiation causing your prostate to swell and irritating cells near your prostate or the prostate bed area. ?? These may include some changes in your urination. It may become more difficult to start your flow. You may need to void more often. Your stream may be weaker. You may have some discomfort when you urinate. ?? Please tell the nurse or your doctor if you experience any of these symptoms. ?? You may notice a change in your bowel patterns. Your bowel movements may be more frequent and/or loose. ?? If you develop bowel symptoms, please let the nurse or your doctor know. Please ask the nurse or your doctor if you have any questions or concerns about your personalized course of treatment. documented in this encounter Progress Notes Ronnie Vazquez MD - 08/13/2016 12:00 PM EDT Simulation Note for External Beam Radiation Treatment Planning [facility] Laith Mckeon is a 65 y.o. year old male with high risk prostate cancer who was simulated for definitive radiotherapy to the pelvis and prostate today. No changes were made from the plan as documented in the original simulation order and instructions. After confirming informed consent, a retrograde urethrogram using 10cc of omipaque contrast was performed. Then, a 2.5mm slice thickness CT scan of the patient's pelvis was obtained. This scan was performed to delineate both target volumes and organs/structures at risk. These images will be used to create a customized treatment plan employing multileaf collimators and beams-eye view to treat the target to prescription dose while maximally sparing organs at risk, with the overall goal of maximizing the likelihood of a favorable disease response while minimizing the likelihood of any short term side effects or long wall mining machine tender complications of therapy. I anticipate his prescription dose will be 79.2 Gy to the prostate, delivered in daily 1.8 Gy fractions over the course of 9.5 weeks. Anticipate therapy to begin within the next 10 days. Furthermore, Ianticipate this patient will require IMRT or VMAT treatment planning and delivery as the critical treatment volume of interest (in this case, pelvic lymphatics, seminal vesicles, and prostate) is/are irregular and in close proximity to sensitive structures which must be protected (including his femurs, bladder, rectum, small bowel, and penile bulb). The patient tolerated this procedure well, and was provided instructions with regard to upcoming appointments. documented in this encounter Plan of Treatment Upcoming Encounters Date Type Specialty Care Team Description 02/04/2022 Office Visit Radiation Oncology Rama Ramos, JEWELRY MAKING INSTRUCTOR [facility] RADIATION [place], [place] [address] (Wo rk) documented as of this encounter Visit Diagnoses Not on filedocumented in this encounter Care Teams Gas Charger Relationship Specialty Start Date End Date Celio Sanders MD PCP - General Internal Medicine 05/19/16 [address] [place] [address] documented as of this encounter
--- OUTSIDE RECORDS SUMMARY | 2022-01-25 12:40 | XMS_ITS | Encounter Summary ---
:1950 Author Organization [facility] [place] [address] Care Team Providers Name Role Phone Angelica Mak MD Primary Care Provider Encounter Details Date Type Department Care Team Description 05/17/2016 Telephone Radiation Oncology a [facility] Harjeet Silvestre [address] [place] [phone] Social History Tobacco Use Types Packs/Day Years Used Date Smoking Tobacco: Never Assessed Sex Assigned at Date Recorded Not on file documented as of this encounter Miscellaneous Notes Telephone Encounter - Harjeet Silvestre - 05/17/2016 8:43 AM EDT Called Nain to inform him that Dr. Vazquez will not be in today and rescheduled his appointment to Friday 05/19 at 8:30. Nain was agreeable to this plan. documented in this encounter Plan of Treatment Upcoming Encounters Date Type Specialty Care Team Description 02/04/2022 Office Visit Radiation Oncology Rama Ramos APRN [facility] RADIATION [place], [place] [address] (Wo rk) documented as of this encounter Visit Diagnoses Not on filedocumented in this encounter Care Teams Garment Folder Relationship Specialty Start Date End Date Angelica aMk MD PCP - General 01/27/10 05/18/16 [address] [place], [place] [id number] documented as of this encounter
--- OUTSIDE RECORDS SUMMARY | 2022-01-25 12:40 | XMS_ITS | Encounter Summary ---
:1950 Author Organization [facility] [place] [address] Care Team Providers Name Role Phone Celio Sanders MD Primary Care Provider Encounter Details Date Type Department Care Team Description 05/17/2016 External Results Medical Records Provider, [place] [address] Social History Tobacco Use Types Packs/Day Years Used Date Smoking Tobacco: Never Assessed Sex Assigned at Date Recorded Not on file documented as of this encounter Plan of Treatment Upcoming Encounters Date Type Specialty Care Team Description 02/04/2022 Office Visit Radiation Oncology Rama Ramos APRN [facility] RADIATION [place], [place] [address] (Wo rk) documented as of this encounter Procedures Procedure Name Priority Date/Time Associated Diagnosis Comme nts SURGICAL PATHOLOGY Routine 05/17/2016 Results f or this SCAN procedure are i n the results section . documented in this encounter Results Scan Doc: Surgical Pathology (05/17/2016) Narrative This result has an attachment that is no t available. Savanah Sewell MD MEDIA MGR SCAN EXT ORDR/RSLT documented in this encounter Visit Diagnoses Not on filedocumented in this encounter Care Teams Customer Service Associate Relationship Specialty Start Date End Date Celio Sanders MD PCP - General Internal Medicine 05/19/16 [address] [place], [place] [address] documented as of this encounter
--- OUTSIDE RECORDS SUMMARY | 2022-01-25 12:40 | XMS_ITS | Encounter Summary ---
:1950 Author Organization [facility] [place] [address] Care Team Providers Name Role Phone Celio Sanders MD Primary Care Provider Encounter Details Date Type Department Care Team Description 07/07/2016 Procedure visit Radiation Oncology Ronnie Vazquez, [place] eoplasm of prostate at [facility] regional lymph node [address] staging category [place], [place] RADIATION ONCOL OGY pN1[place] [id number] [place], [place] regional nodes [phone] Social History Tobacco Use Types Packs/Day Years [...] Sign Reading Time Taken Comments Blood Pressure 116/61 07/07/2016 8:12 AM EDT Pulse 80 07/07/2016 8:12 AM EDT Temperature 36.6 ??C (97.9 ??F) 07/07/2016 8:12 AM EDT Respiratory Rate 16 07/07/2016 8:12 AM EDT Oxygen Saturation 96% 07/07/2016 8:12 AM EDT Inhaled Oxygen Concentration - - Weight - - Height - - Body Mass Index - - documented in this encounter Progress Notes Alta Muse RN - 07/07/2016 8:30 AM EDT Radiation Oncology Procedure Nursing Note Procedure: Cold coil implant by Dr Ronnie Vazquez Time of patient arrival to clinic:0800 See flowsheet for all vital signs and medication list updated info. Pre procedure questions: [ yes ] If Applicable: He confirms taking lorazepam 1mg po at (time):07:30 And then repeated at 8:15AM He comes to clinic accompanied by a regional flatbed truck driver ( ). [ yes ] if Applicable: He confirms holding blood thinner as directed. No OTC ASA or ibuprofen [yes ] He confirms starting cipro yesterday and will continue twice a day and will complete it tomorrow evening. [ yes ] He administered fleets enema as directed; last night and this AM, with good results. Patient states all his questions are answered and he is ready to proceed. Procedure Time out/start time:0900 Assessment:due to extreme anxiety and discomfort of rectal probe, the procedure was not completed Time procedure ended:pt left room 09:35 After procedure,he ambulated to dressing room, gait steady. Dr Vazquez spoke with patient regardingplan of having this procedure done under sedation at [facility] by Dr Pelaez. Patient was instructed to stop taking the cipro and dexamethasone since the procedure was not done today. See Dr Vazquez's note for further details. He has the [facility] phone number and verbalized understanding to ask for the wood tile installation helper radiation oncologist if he needs to after clinic hours. [ drove him ] If applicable: He was reminded to not drive home due to Lorazepam. Time of discharge: 10:00 vital signs stable,and gait steady. Ronnie Vazquez MD - 07/07/2016 8:30 AM EDT Identification: Nain Mkceon is a 65 y.o. year old gentleman with high risk prostate cancer likely involving regional lymph nodes, who has consented for external beam radiotherapy. Procedure: Gold coil fiducial marker placement within the prostate for radiation localization duringtherapy. Physician: Ronnie Vazquez MD Anesthesia: Local lidocaine with bicarbonate Description of Procedure: Nain Mckeon was placed in the lithotomy position. A transrectal ultrasound probe was placed withinthe rectum and was not tolerated by the patient. The procedure was aborted and will be re-attempted with more advanced sedation, likely with anesthesiology support. Complications: None Estimated Blood Loss: None Disposition: A referral has been placed for the patient to undergo fiducial marker placement by Dr. Matthew Zuñiga [facility]. documented in this encounter Plan of Treatment Upcoming Encounters Date Type Specialty Care Team Description 02/04/2022 Office Visit Radiation Oncology Rama Ramos APRN [facility] RADIATION [place], [place] [address] (Wo rk) documented as of this encounter Visit Diagnoses Diagnosis 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 documented in this encounter Care Teams Shrimp Boat Captain Relationship Specialty Start Date End Date Celio Sanders MD PCP - General Internal Medicine 05/19/16 [address] [place] [address] documented as of this encounter
--- OUTSIDE RECORDS SUMMARY | 2022-01-25 12:40 | XMS_ITS | Encounter Summary ---
:1950 Author Organization [facility] [place] [place] [address] Care Team Providers Name Role Phone Celio Sanders MD Primary Care Provider Reason for Visit Reason Comments Injections Lupron Encounter Details Date Type Department Care Team Description 05/31/2016 Infusion Hematology Oncology at [address] [phone] Social History Tobacco Use Types Packs/Day Years Used Date Smoking Tobacco: Never Smokeless Tobacco: Never Alcohol Use Standard Drinks/Week Comments Yes 0 (1 standard drink = 0.6 oz pure beer o r wine a couple times a month alcohol) Sex Assigned at Date Recorded Not on file documented as of this encounter Progress Notes Florencia Tuttle RN - 05/31/2016 9:30 AM EDT Infusion Note Diagnosis:Prostate Cancer Treatment: Lupron Injection Lupron 22.5 mg injected in right buttocks Patient instructed on side effects of Lupron. Patient states understanding of teaching, Patient aware to call clinic with any questions or concerns. Plan: Return to clinic as scheduled. documented in this encounter Plan of Treatment Upcoming Encounters Date Type Specialty Care Team Description 02/04/2022 Office Visit Radiation Oncology Rama Ramos APRN [facility] RADIATION [place], [place] [address] (Wo rk) documented as of this encounter Visit Diagnoses Diagnosis Malignant neoplasm of prostate documented in this encounter Administered Medications Inactive Administered Medications - up to 3 most recent administrations Medication Order MAR Action Action Date Dose Rate Site leuprolide (LUPRON) Given 05/31/2016 10:33 AM 22.5 mg Right Gluteal injection 22.5 mg EDT 22.5 mg, Intramuscular, ONCE, 1 dose, On 05/31/16 at 1045, Routine documented in this encounter Care Teams Insurance Healthcare Representative Relationship Specialty Start Date End Date Celio Sanders MD PCP - General Internal Medicine 05/19/16 [address] [place] [address] documented as of this encounter
--- OUTSIDE RECORDS SUMMARY | 2022-01-25 12:40 | XMS_ITS | Encounter Summary ---
:1950 Author Organization [facility] [place] [address] Care Team Providers Name Role Phone Angelica Mak MD Primary Care Provider Encounter Details Date Type Department Care Team Description 05/12/2016 Hospital Encounter Radiology Library at Sabiha Sanders Pain [facility] [address] [place] [address] [place] [address] [phone] Social History Tobacco Use Types Packs/Day Years Used Date Smoking Tobacco: Never Assessed Sex Assigned at Date Recorded Not on file documented as of this encounter Medications at Time of Discharge Medication Sig Dispensed Refills Start Date End Date methylphenidate (RITALIN) Take 5 mg by mouth 0 05/19/2016 5 mg tablet 2 times daily. lamoTRIgine (LAMICTAL) 100 Take 150 mg by 0 05/19/2016 mg tablet mouth daily. Reported on 05/19/2016 aripiprazole (ABILIFY) 15 Take 15 mg by mouth 0 05/19/2016 mg tablet daily. pravastatin (PRAVACHOL) 10 Take 20 mg by mouth 0 05/31/2016 mg tablet daily. Reported on 05/31/2016 mirtazapine (REMERON) 15 Take 15 mg by mouth 0 07/22/2016 mg tablet nightly. atovaquone-proguanil Take 1 tablet by 26 tablet 0 1 05/19/2016 (MALARONE) 250-100 mg per mouth daily. Start tablet 1 day prior to travel; Take daily in malaria area; continue for 7 days after return lamoTRIgine (LAMICTAL) 200 200 MG = 1 0 7 05/19/2016 mg tablet Tablet(s), PO, Twice daily escitalopram (LEXAPRO) 20 30 MG = 1 1/2 0 007 05/19/2016 mg tablet Tablet(s), PO, Once daily DULoxetine (CYMBALTA) 30 30 MG = 1 0 03/03/2007 05/19/2016 mg capsule Capsule(s), PO, Once daily clonAZEpam (KLONOPIN) 0.5 0.5 MG = 1 0 01/04/2007 05/19/2016 mg tablet Tablet(s), PO, Once daily documented as of this encounter Plan of Treatment Upcoming Encounters Date Type Specialty Care Team Description 02/04/2022 Office Visit Radiation Oncology Rama Ramos, MEAT SPECIALIST [facility] RADIATION [place], [place] [address] (Wo rk) documented as of this encounter Procedures Procedure Name Priority Date/Time Associated Diagnosis Comme nts ALLERGY SCAN 01/31/2019 12:00 AM Results for this EST procedure are i n the results section. CT SCAN (SCAN) 05/12/2016 12:00 AM Result s for this EST procedure are i n the results section. FILM LIBRARY Routine 05/12/2016 12:00 AM Pain Results for this STORAGE ONLY CT EST procedure ar e in ABDOMEN AND PELVIS the resul ts section. SURGICAL PATHOLOGY 04/28/2016 12:00 AM Re sults for this SCAN EST procedure are i n the results section. CT SCAN (SCAN) 03/30/2016 12:00 AM Result s for this EST procedure are i n the results section. documented in this encounter Results SCAN DOC: ALLERGY (01/31/2019 12:00 AM EST) Narrative 01/31/2019 12:00 AM EST This result has an attachment that is no t available. Ordered by an unspecified provider. Scanning Provider MEDIA MGR SCAN EXT ORDR/RSLT Film Library- Storage Only CT Abdomen & Pelvis (05/12/2016 12:00 AM EST) Specimen (Source) Anatomical Location Collection Method / Collectio n Time Received Time / Laterality Volume Narrative DH RAD - 05/14/2016 9:57 AM EST This exam is for storage only and is aut o-finalizing. Celio Sanders MD IMG FILM LIBRARY ORDERABLES Performing Organization Address City/State/ZIP Code Phon e Number [place], [place] SCAN DOC: CT SCAN (05/12/2016 12:00 AM EST) Anatomical Region Laterality Modality SO Narrative 05/12/2016 12:00 AM EST This result has an attachment that is no t available. Ordered by an unspecified provider. Scanning Provider MEDIA MGR SCAN EXT ORDR/RSLT SCAN DOC: SURGICAL PATHOLOGY (04/28/2016 12:00 AM EST) Narrative 04/28/2016 12:00 AM EST This result has an attachment that is no t available. Ordered by an unspecified provider. Scanning Provider MEDIA MGR SCAN EXT ORDR/RSLT SCAN DOC: CT SCAN (03/30/2016 12:00 AM EST) Anatomical Region Laterality Modality SO Narrative 03/30/2016 12:00 AM EST This result has an attachment that is no t available. Ordered by an unspecified provider. Scanning Provider MEDIA MGR SCAN EXT ORDR/RSLT documented in this encounter Visit Diagnoses Diagnosis Pain Generalized pain documented in this encounter Care Teams Direct Marketing Manager Relationship Specialty Start Date End Date Angelica Mak MD PCP - General 01/27/10 05/18/16 [address] [place] [address] documented as of this encounter
--- OUTSIDE RECORDS SUMMARY | 2022-01-25 12:40 | XMS_ITS | Encounter Summary ---
:1950 Author Organization [facility] [place] [address] Care Team Providers Name Role Phone Celio Sanders MD Primary Care Provider Reason for Visit Consultation (Routine) - Closed Specialty Diagnoses / Procedures Referred By Contact Refer red To Contact Radiation Oncology Diagnoses Prostate CA Elias Curran MD Kapadia, Nirav S, MD Procedures Treatment Options [address] [place] [address] [place], [place] RADIATION ON [place] [address] [place] [address] Phone: Fax: Referral ID Status Reason Start Date Expiration Date Visits Requ ested Visits Authorized [id number] Closed 05/14/2016 05/14/2017 1 1 Encounter Details Date Type Department Care Team Description 05/19/2016 Office Visit Radiation Oncology at [facility] C anclorelei of prostate [facility] with high recurrence [address] risk (stage T3a or [place], [place] RADIATION ONCOL OGY Andre 8-10 or PSA > [id number] [place], [place] 20) [phone] (Wo rk) Social History Tobacco Use Types [...] Sign Reading Time Taken Comments Blood Pressure 123/81 05/19/2016 1:00 PM EDT Pulse 90 05/19/2016 1:00 PM EDT Temperature 36.5 ??C (97.7 ??F) 05/19/2016 1:00 PM EDT Respiratory Rate 16 05/19/2016 1:00 PM EDT Oxygen Saturation 97% 05/19/2016 1:00 PM EDT Inhaled Oxygen Concentration - - Weight 81.7 kg (180 lb 3.2 oz) 05/19/2016 1:00 PM EDT Height - - Body Mass Index - - documented in this encounter Patient Instructions Patient InstructionsRonnie Vazquez MD - 05/19/2016 9:00 AM EDT Dear Mr. Mckeon, Dr. Curran asked for me to see you to discuss how radiation therapy can be used to treat your prostate cancer and this note is to recap our discussion regarding use of radiation treatments. As your radiation oncologist, I work closely with your other healthcare providers and most importantly, with you to make sure that the treatments we discuss and offer keep your personal preferences and goals in mind. We discussed the following next steps as part of your cancer evaluation and/or treatment: 1. Decision making on treatment: You technically have at least high risk prostate cancer, which leroy risk given to your cancer of coming back after treatment. This is based on three things: your PSA was greater than 20 (the blood test), Betterton score (how aggressive the prostate cancer looked under the microscope) which was greater than 7, and how aggressive your prostate cancer felt when Dr. Roblesid the prostate exam (through the rectum). You also have a lymph node that may be involved with prostate cancer. The decision to treat prostate cancer is based on both the risk that the cancer can kill you and your general overall health. I agree with Dr. Curran's recommendation that this should be treated since we would otherwise expect you to live a normal length of life. You have an appointment tomeet with Dr. Pham, one of the prostate cancer surgeons, on 05/27/16 to discuss the surgical option and you are here today to discuss the radiation option, which is listed below. 2. Hormone therapy: For high risk prostate cancers such as yours, I recommend a course of anti-testosterone therapy for 32 months (typically starting 2 months before radiation, contiuing for 2 months during radiation and ongoing after radiation is completed). This is usually given as a shot that lastsfor 3 months at a time. The reason we recommend this is that the male hormone testosterone is used by prostate cancer as a fuel. By decreasing the body's production of testosterone, we can 'starve' theprostate cancer. The main side effects of hormone therapy include hot flashes, night sweats, weight gain, depressed mood, loss of sexual interest and impotence. There is also a very low risk of heart at tack among men who have recently had a heart attack. These side effects usually reverse within 3-6 months of stopping the hormone therapy when testosterone recovers, although it can take up to a full year. 3. Fiducial Markers: The first step will be for you to return to our clinic so that we can place small gold markers (called fiducials) into the prostate, which help us visualize the prostate on a dailybasis prior to treating you with radiation. These small gold seeds are about the size of a grain of rice, and we will place one into each side of the prostate. The procedure will be performed here in our clinic, and we will provide you instructions with how to prepare yourself. It takes approximately 2 hours from when you arrive to when you leave the building. Following the placement of the fiducial marker seeds, we will ask you to undergo the MRI at [facility] and a CT simulation scan here in our [facility], typically 1-2 weeks after the placement of the fiducials. 4. Radiation Therapy and Planning: Radiation therapy involves using high energy radiation which kills cancer but also normal healthy tissues. In order to make sure the radiation goes to the cancerous tissues and to also avoid radiating the normal tissues, we design radiation beams beams into special shapes which come from various different directions. Because no two people and no two cancers are completely identical, the radiation plan we create for you will be unique to you and your body. In order to figure out how many beams to use, how much radiation to give, which angles they should come from, and how they should be shaped, we have asked you to undergo 2 mapping scans: one is done here in our department known as a CT simulation, or CT sim, for short. This is essentially a CAT-scan similar to scans which you may have received before, but slightly different in a few ways: First, it allows usto place you in the exact same position which you should expect to be placed during each of your radiation treatment sessions. Second, it lets us better understand where the radiation targets and the normal tissues that we want to avoid exist, in relation to each other and the radiation beams. The second scan is a prostate MRI which we do at [facility], that allows us to better see your prostate. Following these scans, we then perform additional calculations and measurements to create the absolute best plan possible for you. Depending on the complexity of the plan, these processes can take fromjust few hours to several days, and for that we ask for your patience. If you have any questions about the planning process or your custom radiation plan, I would be more than happy to review the plan with you during your first week of treatment. I anticipate you would receive 44 treatments total, daily Tuesday-Tuesday for almost 9 weeks. Your start date and time would be provided once the simulation scan is completed. During your radiation treatments, you can expect to see me once per week so that I can examine you to make sure you are tolerating radiation treatments and so that we can monitor your response to treatment. 5. Short Term Toxicity (Side Effects) of Radiation: We discussed some common temporary side effects that you may experience during radiation. Common side effects may include irritative symptoms of the bladder or prostate, which can result in more frequent urination or defecation. Other common side effects mahy include weakened urinary stream or burning with urination. If you experience any of these, please let us know so that we can help to treat them. These typically resolve within 4-6 weeks of completion radiation. 6. Back Shoe Worker Complications: These are more worrisome and are due to permanent damage of the radiatedtissues, including the rectum/bowel, bladder, prostate and surrounding tissues. Potential serious injury is rare, but can include poor wound healing, bleeding, or destruction of healthy tissue that mayrequire surgery to repair and may result in a colostomy (bag for defecation) or urostomy (bag for urination). There may be a slow, buttermaker helper decrease in your sexual function as well, which is partly due to the aging process but also partly due to radiation side effects. This is typically responsive tomedications like Viagra. Finally, there is a risk that radiation to your prostate increases the chance of getting another cancer caused by radiation, possibly of the prostate, bladder, rectum or surrounding tissues. This risk is overall quite low (approximately 1% above your normal risk for each 10 years you are alive), but is something to be aware of. Please do not hesitate to call me at [phone] with any other questions or concerns you have. If I am not here, one of our radiation oncology nurses can assist you or help you get in touch with me. A Radiation Oncology doctor is also sap enterprise portal consultant after our normal hours and on weekends for urgent questions or concerns related to radiation treatments that can not wait until normal business hours. To reach the on-call doctor after-hours, just call and have the making machine operator page the Radiation Oncologist sap enterprise portal consultant. And, as always, if you experience any life-threatening emergencies which any include the following, you need to seek emergency care immediately by calling 911: 1. Sudden and unexpected breathing difficulty without any exertion 2. Sudden onset of chest pain 3. Sudden onset of severe pain or uncontrolled pain 4. Sudden onset of severe weakness and/or unable to walk 5. Sudden new onset of a seizure 6. Fall resulting in injury 7. Uncontrollable bleeding Ronnie Trevizo MD Licensed Weigherhand buffer Radiation Oncology [facility] documented in this encounter Progress Notes Alta Muse RN - 05/19/2016 1:30 PM EDT RADIATION ONCOLOGY NURSING INITIAL NURSING ASSESSMENT IDENTIFICATION: Nain Mckeon is a 65 y.o. year-old male with prostate cancer PRESENTING SYMPTOMS/CHIEF COMPLAINT: hematuria Caused him to see urologist who did PSA and biopsy REVIEW OF SYSTEMS: see scanned docs IN THE PAST 12 MONTHS HAVE YOU: Fallen more than one time? No Injured yourself as result of the fall? No Experienced difficulty with walking? No (If patient does not know or declines to answer, please note in the 3 star option) If patient answered yes to any of the above, please offer to print out one of the following resources that may apply to them: Prior Radiotherapy: No [x] Yes [] Site: Date: Physician/Location: Prior Chemotherapy: No [x] Yes [\] Drug(s): Physician/Location: Date of last treatment: Prior Hormone Therapy: No [x] Yes [] Drug(s): Physician/Location: RADIOLOGY SAFETY QUESTIONS REVIEWED:MRI/CT Scheduling Questions: Patient's Weight: see flowsheet Is the patient claustrophobic? (Yes/No) no Has patient ever required sedation for an MRI? (Yes/No) no Oral IV Anesthesia Does the patient have difficulty breathing while lying flat? (Yes/No) no Does the patient have mobility concerns? (Yes/No) no Does the patient have a Mediport? (Yes/No) no If yes to Mediport/[place], is it power injectable? na (Yes/No) Is patient coming from a Long-Term Facility? (Yes/No) no (If yes, patient needs to be accompanied by a caregiver for entire Exam and transport arrangements.) LEARNING ASSESSMENT REVIEWED: yes ADVANCED DIRECTIVE: PAIN ASSESSMENT: [0] out of 10 *eD-H Adult PCS Flow Sheet if 4 or above SOCIAL ASSESSMENT: See EDH social assessment information entered. Support Systems: live with Yaneth Barriers to treatment: none Referrals/Interventions: general scrap worker on day per routine. RADIATION SPECIFIC TEACHING:Will provide the following information on day [facility] Radiation Therapy and You Site specific teaching :pelvis PLAN: Per Dr Vazquez's note Ronnie Vazquez MD - 05/19/2016 9:00 AM EDT Images from the original note were not included. Radiation Oncology Consult [place] [address] Reason for Consultation: at least Group IIB, high risk (PSA 47.5, Gl 4+4, cT2b) vs. Group IV (N1) prostate cancer Referring Physician / Service: Dr. Curran HPI: Nain Srinivasan is a 65-year-old man noted to have an elevated PSA and abnormal digital rectal exam in the setting of hematuria (x3 episodes) that prompted referral to urology. Prior to biopsy, given the elevated PSA, he underwent bone scan 03/30/2016 that was negative for metastatic disease. PSA was not rechecked, per the patient. On 04/27/2016 Dr. Curran performed ultrasound-guided prostate [...] (craniocaudad) enlarged right internal iliac lymph node. Mr. Finch is here today to discuss the role of radiotherapy in his recent diagnosisof at least high risk, possibly metastatic prostate cancer. He has an appointment to be with Dr. Pham 05/27/2016. ROS: On further review he reports some fatigue increased urinary frequency with nocturia. LINA = 20 3 IPSS = 21 incomplete emptying weak stream and straining with nocturia once nightly. Urinary lanacbm-th-pxni = 3. A comprehensive 14 point review of systems was conducted with this patient and is otherwise negativeexcept as documented above. Past Medical History: Diagnosis Date ??? Anxiety ??? Finger fracture multiple from basket ball injuries ??? Hyperlipidemia ??? Prostate cancer The patient was specifically asked and denies a history of prior radiotherapy to this region, systemic sclerodema, or active systemic lupus. Past Surgical History: Procedure Laterality Date ??? APPENDECTOMY burst ??? CHOLECYSTECTOMY, LAPAROSCOPIC ??? PROSTATE BIOPSY Medications 05/19/16 6224 Medication Sig Taking? clonazePAM (KLONOPIN) 1 mg Tablet Take 2 mg by mouth nightly as needed for Anxiety. Yes lamoTRIgine (LAMICTAL) 150 mg Tablet Take 150 mg by mouth daily. Yes LEVOTHYROXINE SODIUM (LEVOTHROID ORAL) Take by mouth daily. Yes pravastatin (PRAVACHOL) 10 mg tablet Take 20 mg by mouth daily. Yes mirtazapine (REMERON) 15 mg tablet Take 15 mg by mouth nightly. 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 Estimated travel time by the patient to [place] is 20 minutes, one-way. Smoking: never Alcohol: 2 / month Illicits: denies Family History: Reviewed with the patient and/or in the medical system and for the above diagnosis and is notable for a father with prostate cancer, otherwise non-contributory. Physical Exam: Vitals: 05/19/16 1300 BP: 123/81 Pulse: 90 Resp: 16 Temp: 36.5 ??C (97.7 ??F) General: alert, well appearing, and in no distress, sitting in exam room with and family friend(a physician) at side Rectal: Deferred Performance Status: KPS Score ECOG Grade Definition [...] selfcare; totally confined to bed or chair Pathology Review: Pathology was reviewed in the medical record, as per HPI and is summarized below: Site: TRUS bx (Dr. Curran) 04/27/16 Histology / Grade: Gl 4+4 x 2 Gl 4+3 x 2 Gl 3+4 x 1 Margin / Catherine status: 3cm internal iliac LN (CT 05/12/16) Other prognostic factors: +PNI Reviewed at [facility]: Y Imaging Review: I have personally reviewed the images from the CT of the abdomen and pelvis dated 05/12/2016 findings as per HPI of enlarged prostate with suspicious appearing right internal iliac node. Railroad Design Consultant image is shown below for reference. Assessment: Nain Mckeon is a 65-year-old man with at least high risk prostate cancer (Betterton 8, PSA47.5, clinical T2b). He has severe lower urinary tract obstructive symptoms and a questionable enlarged internal iliac lymph node. Plan: I discussed the staging and treatment of locally advanced prostate cancer with Mr. Mckeon and his family today in the clinic. He understands that he has at least high risk disease and that the radiation therapy implications of high risk disease involve prostate and pelvic radiation therapy with 3 years of androgen deprivation therapy. Given the above appearance and location of the lymph node, Iwould presume it to involve metastatic disease and include this in the radiation portals with a simultaneous integrated boost to the lymph node of concern, without need for biopsy. I discussed with Mr. Mckeon and his that, to my knowledge, lymph node spread is a relative contraindication to prostatectomy, but that this will certainly be addressed when he meets Dr. Pham nextweek. Dr. Curran has also asked Dr. Pham to consider lymph node biopsy in addition to prostatectomy.I will defer on the decision to proceed with these interventions to Dr. Pham. Two other questions Iwill ask of him, though are 1) whether the patient would be a candidate for TURP should definitive ADT + radiation be elected and 2) whether cystoscopy is indicated given the hematuria that prompted initial urology evaluation. As Mr. Mckeon seems inclined towards surgery, informed consent for radiotherapy was not obtained at this time. Instead, we will await results of Mr. Mckeon's consultation with Dr. Pham and proceed accordingly. I plan to touch base with Mr. Mckeon in the few days following his visit with Dr. Pham. All of this patient's questions were answered to his fullest satisfaction, and we have provided him with our contact information should any further questions or concerns arise. I entered the patient's exam room at 2:25pm and exited at 3:35pm. More than 50% of this visit was spent counseling the patient fa ce-to-face in reviewing the workup of his diagnosis, treatment options, toxicities and complicationsas outlined in my assessment and plan. So, in summary: 1. Intent of therapy: Curative 2. Recheck PSA 3. Await results of Dr. Pham consultation documented in this encounter Plan of Treatment Upcoming Encounters Date Type Specialty Care Team Description 02/04/2022 Office Visit Radiation Oncology Rama Ramos, PRECISION INSPECTOR [facility] RADIATION [place], [place] [address] (Wo rk) documented as of this encounter Visit Diagnoses Diagnosis Cancer of prostate with high recurrence risk (stage T3a or Betterton 8-10 or PSA > 20) Malignant neoplasm of prostate documented in this encounter Care Teams Metal Riveting Machine Operator Relationship Specialty Start Date End Date Celio Sanders MD PCP - General Internal Medicine 05/19/16 [address] [place] [address] documented as of this encounter
--- OUTSIDE RECORDS SUMMARY | 2022-01-25 12:40 | XMS_ITS | Encounter Summary ---
:1950 Author Organization [facility] [place] [address] Care Team Providers Name Role Phone Angelica Mak MD Primary Care Provider Encounter Details Date Type Department Care Team Description 05/17/2016 Hospital [place] [address] Social History Tobacco Use Types Packs/Day [...] Take 1 tablet by 26 tablet 0 01/25/ 1 05/19/2016 (MALARONE) 250-100 mg per mouth daily. Start tablet 1 day prior to travel; Take daily in malaria area; continue for 7 days after return lamoTRIgine (LAMICTAL) 200 200 MG = 1 0 7 05/19/2016 mg tablet Tablet(s), PO, Twice daily escitalopram (LEXAPRO) 20 30 MG = 1 1/2 0 2 007 05/19/2016 mg tablet Tablet(s), PO, Once daily DULoxetine (CYMBALTA) 30 30 MG = 1 0 03/03/2007 05/19/2016 mg capsule Capsule(s), PO, Once daily clonAZEpam (KLONOPIN) 0.5 0.5 MG = 1 0 01/04/2007 05/19/2016 mg tablet Tablet(s), PO, Once daily documented as of this encounter Plan of Treatment Upcoming Encounters Date Type Specialty Care Team Description 02/04/2022 Office Visit Radiation Oncology Rama Ramos, [facility] [place]ATION [place], [place] [address] (Wo rk) documented as of this encounter Procedures Procedure Name Priority Date/Time Associated Diagnosis Comme [facility] SURGICAL PATHOLOGY Routine 05/17/2016 4:06 PM Res ults for this REPORT EDT procedure are i n the results section. documented in this encounter Results Surgical Pathology Report (05/17/2016 4:06 PM EDT) Component Value Ref Test Analysis Performed At [facility] gist Range Method Time Signature Surgical [id number] ?Location: [facility] Report The signing pathologist has (i) examined the relevant preparation(s) for the [facility] specimen(s) and (ii) rendered or confirmed the diagnosis(es) . HOSPITAL LABORATORY . ?Surgic al Pathology DIAGNOSIS CONSULTATION CASE Extradepartmental number: ??[id number]; collection date, 04/27. A - Prostatic core needle biopsy, right lateral base: ?1. Adenocarcinoma, grade group 3, Andre grade 4+3, ? involving 95% of the biopsy core. ?2. Perineural invasion identified. B - Prostatic core needle biopsy, right medial base: ?1. Adenocarcinoma, grade group 3, Andre grade 4+3, ? involving 95% of the biopsy core. ?2. Perineural invasion identified. C - Prostatic core needle biopsy, right mid lateral: ?Adenocarcinoma, grade group 4, [place] grade 4+4, ?involving 90% of the biopsy core. D - Prostatic core needle biopsy, right mid medial: ?1. Adenocarcinoma, grade group 4, [place] grade 4+4, ? involving 40% of the biopsy core. ?2. Perineural invasion identified. E - Prostatic core needle biopsy, right lateral apex: ?Benign prostatic tissue. F - Prostatic core needle biopsy, right medial apex: ?Adenocarcinoma, grade group 3, [place] grade 3+4, ?involving 25% of the biopsy core. G - Prostatic core needle biopsy, left lateral base: ?Benign prostatic tissue. H - Prostatic core needle biopsy, left medial base: ?Benign prostatic tissue. I - Prostatic core needle biopsy, left mid lateral: ?Benign prostatic tissue. J - Prostatic core needle biopsy, left mid medial: ?Benign prostatic tissue. K - Prostatic core needle biopsy, left lateral apex: ?Benign prostatic tissue. L - Prostatic core needle biopsy, left medial apex: ?Benign prostatic tissue. CR-0 Electronically signed by: ??Salvador MUNOZ, Sedrick Lin Verified: ??05/18/2016 ?Pathologist CLINICAL INFORMATION Specimen Submitted: . CLINICAL INFORMATION CONSULTATION CASE A - 24 slide(s) labeled [id number], collection date 04/27/2016 . [id number] Report to: [facility] Surgical Pathology Department [facility], [facility], 2nd Floor [address], [place] ??[address] SPECIMEN PROCESSING [facility] ([facility]) pathology slide(s) are reviewed. ??Refer to Diagnosis and Specimen Submitted for specific case infor joao. For the full text of the [facility] report(s) please refer t o Non-DH Documentation Pathology in the electronic health record (eDH). Specimen (Source) Anatomical Collection Method Collection Time Re ceived Time Location / / Volume Laterality 05/17/2016 4:06 PM EDT Savanah Sewell MD PATHOLOGY/CYTOLOGY ORDERABLE S Performing Organization Address City/State/[place] [address] documented in this encounter Visit Diagnoses Not on filedocumented in this encounter Care Teams Warranty Administrator Relationship Specialty Start Date End Date Angelica Mak MD PCP - General 01/27/10 05/18/16 [address] [place] [address] documented as of this encounter
--- OUTSIDE RECORDS SUMMARY | 2022-01-25 12:40 | XMS_ITS | Encounter Summary ---
:1950 Author Organization [facility] [place] [address] Care Team Providers Name Role Phone Celio Sanders MD Primary Care Provider Encounter Details Date Type Department Care Team Description 07[facility]08[facility]2016 [facility] [address] [phone] Social History Tobacco Use Types Packs/Day Years Used Date Smoking Tobacco: Never Smokeless Tobacco: Never Alcohol Use Standard Drinks/Week Comments Yes 0 (1 standard drink = 0.6 oz pure beer o r wine a couple times a month alcohol) Sex Assigned at Date Recorded Not on file documented as of this encounter Miscellaneous Notes Telephone Encounter - Alta Mues RN - 07/08/2016 9:15 AM EDT Radiation Oncology Nurse Telephone Note [facility] [place] [place] 07/08/16 called patient to clarify medications and plan. I instructed him that he does not need to take the cipro and dexamethasone since we did not insert the coils yesterday. He states that he knows this because he clarified it with Dr Vazquez before he left yesterday. When asked how he is feeling, He states he is feeling good today, no complaints of any pain. He has not heard yet when the appt will be with Dr Pelaez ( for conscious sedation with coil implant). He will call us next week if he has not heard from [facility] for this consult. He expressed appreciation for this call. documented in this encounter Plan of Treatment Upcoming Encounters Date Type Specialty Care Team Description 02/04/2022 Office Visit Radiation Oncology Rama Ramos, SOFTWARE PERFORMANCE ENGINEER [facility] RADIATION [place], [place] [address] (Wo rk) documented as of this encounter Visit Diagnoses Not on filedocumented in this encounter Care Teams Refuse And Recycling Worker Relationship Specialty Start Date End Date Celio Sanders MD PCP - General Internal Medicine 05/19/16 [address] [place] [address] documented as of this encounter
--- OUTSIDE RECORDS SUMMARY | 2022-01-25 12:40 | XMS_ITS | Encounter Summary ---
:1950 Author Organization [facility] [place] [address] Care Team Providers Name Role Phone Angelica Mak MD Primary Care Provider Encounter Details Date Type Department Care Team Description 01/25/2011 Office Visit Infectious Disease at Jose [facility], For eign travel (Primary [facility] RN Dx) [place] [address] Social History Tobacco Use Types Packs/Day Years Used Date Smoking Tobacco: Never Assessed Sex Assigned at Date Recorded Not on file documented as of this encounter Progress Notes Garret London MD - 01/26/2011 2:37 PM EST I agree with the recommendations of Jose Adams after review of her note. Jose Adams RN - 01/25/2011 2:01 PM EST Adult Travel Clinic Reason for Visit: Nain Mckeon is a 60 y.o. old patient who comes to travel clinic today for pre-travel evaluation, vaccination and traveler's health education. Trip Details: Destination countries (list from first to last):[facility], [facility], [facility]; [facility], [facility] Departure date: 04/28/11 Length of trip: 05/14/2011 Purpose of travel: vacation Type of environment (urban or rural): mainly rural Accommodations:hotels; luxury tents Medical History: Medical problems: bipolar- well controlled with medications Immunosuppression: No recent steroid use; chemotherapy or other immunosuppresion. History of adverse vaccine reactions: None. History of latex allergy: None. Medications: Current outpatient prescriptions Medication Sig Dispense Refill ??? lamoTRIgine (LAMICTAL) 200 mg tablet 200 MG = 1 Tablet(s), PO, Twice daily ??? escitalopram (LEXAPRO) 20 mg tablet 30 MG = 1 1/2 Tablet(s), PO, Once daily ??? DULoxetine (CYMBALTA) 30 mg capsule 30 MG = 1 Capsule(s), PO, Once daily ??? clonAZEpam (KLONOPIN) 0.5 mg tablet 0.5 MG = 1 Tablet(s), PO, Once daily Allergies: Review of patient's allergies indicates no known allergies. Patient advised to carry all medications in carry on luggage. Travel Health and Safety Issues: A discussion of travel health hazards and safety issues was done, including the following topics: (x) Traffic-accidents (alcohol, seatbelts) (x) Crime (x) Alcohol related issues (x) Sun exposure/heat illness (x) Schistosomiasis and other fresh water exposures (x) Rabies x) HIV infections, Hepatitis (x) TB (x) Health insurance coverage/[employer] (x) Other: embassy information Discussed food and water precautions and patient handout provided. The following strategies were recommended for the management of traveler's diarrhea according to severity: For treatment of mild diarrhea: hydration and over the counter antidiarrheal recommended. For treatment of diarrhea accompanied by fever or systemic illness: hydration and empiric treatmentwith antibiotic recommended. A prescription for Cipro, twice daily for three days, given to patient. For severe or bloody diarrhea, or diarrhea accompanied by vomiting: patient advised to seek medicaltreatment. Vector-borne Disease Prevention Discussed insect bite prevention to reduce risk of malaria, dengue and other insect borne illnesses.Handout given. Malaria Risk: (x) Significant risk of malaria on this itinerary. Discussed malaria chemoprophylaxis and possible side effects. Prescription for:malarone was given to patient. Altitude: (x) This trip does not involve high altitude. Follow-up Recommendations: A recommendation was made that the patient have a tst placed about 3 months after returning from this trip. The patient may either call the travel clinic or get this done through their primary care consultant. Patient advised to call travel clinic if they return from trip with any illness. Time spent in travel counselin min Note written by JOSE ADAMS RN Travel Clinic Immunization History and Orders Immunizations Last dose Give today Give at future date Tetanus/diphtheria (0.5 ml IM) 01/25/2007 Td MMR (0.5 ml IM) dz. as child Polio (0.5 ml SC) brenda fabio series 01/25/2011 Hepatitis A (Adult-1.0 ml IM) (Pedi-0.5 ml IM) 1. 01/25/2011 2. 1. 2. 6 mo to one year Immune serum globulin (specify route/dose) Hepatitis B (adult-1 ml IM X 3) (pedi-0.5 ml IM X 3) 1. 2. 3. 1. 2. 3. Twinrix (Hep A/B) (1.0 ml IM) 1. 2. 3. 1. 2. 3. Typhoid (specify route/dose) Declines, education provided Yellow fever (0.5 ml IM) 01/25/2011 Meningococcal (0.5 ml IM) Rabies (specify type/dose) 1.discussed actions to take if exposure occurs 2. 3. 1. 2. 3. Grenadian Encephalitis 1. 2. 3. 1. 2. 3. 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 documented in this encounter Plan of Treatment Upcoming Encounters Date Type Specialty Care Team Description 02/04/2022 Office Visit Radiation Oncology Rama Ramos APRN [facility] RADIATION [place] [facility] [place] [address] (Wo rk) documented as of this encounter Visit Diagnoses Diagnosis Foreign travel - Primary Other specified conditions influencing h ealth status documented in this encounter Care Teams Water/Wastewater Engineer Relationship Specialty Start Date End Date Angelica Mak MD PCP - General 01/27/10 05/18/16 [address] [place] [address] documented as of this encounter
--- OUTSIDE RECORDS SUMMARY | 2022-01-25 12:40 | XMS_ITS | Encounter Summary ---
:1950 Author Organization [facility] [place] [address] Care Team Providers Name Role Phone Angelica Mak MD Primary Care Provider Encounter Details Date Type Department Care Team Description 03/30/2016 Hospital Encounter Radiology Library at Sabiha Sanders [facility] [place] [address] [place] [address] [place] [address] [phone] Social History Tobacco Use Types Packs/Day Years [...] 02/04/2022 Office Visit Radiation Oncology Rama Ramos, ROOF TILER [facility] RADIATION [place], [place] [address] (Wo rk) documented as of this encounter Procedures Procedure Name Priority Date/Time Associated Diagnosis Comme nts FILM LIBRARY Routine 03/30/2016 12:00 AM Pain Results for this STORAGE ONLY EST procedure are i n NUCLEAR MEDICINE the results section. documented in this encounter Results Film Library- Storage Only nuclear medicine (03/30/2016 12:00 AM EST) Specimen (Source) Anatomical Location Collection Method / Collectio n Time Received Time / Laterality Volume Narrative [facility] - 05/14/2016 9:52 AM EST This exam is for storage only and is aut o-finalizing. Celio Sanders MD IMG FILM LIBRARY ORDERABLES Performing Organization Address City/State/ZIP Code Phon e Number [place], [place] documented in this encounter Visit Diagnoses Diagnosis Pain Generalized pain documented in this encounter Care Teams Children'S Attendant Relationship Specialty Start Date End Date Angelica Mak MD PCP - General 01/27/10 05/18/16 [address] [place] [place] [address] documented as of this encounter
--- OUTSIDE RECORDS SUMMARY | 2022-01-25 12:40 | XMS_ITS | Encounter Summary ---
:1950 Author Organization [facility] [place] [address] Care Team Providers Name Role Phone Celio Sanders MD Primary Care Provider Encounter Details Date Type Department Care Team Description 05/31/2016 Office Visit Radiation Oncology at [facility] C ancer of prostate with high recurrence risk (stage T3a or Andre 8-10 or PSA > 20); [facility] 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 [address] [facility] [place], [place] RADIATION ONCOL OGY [address] [place], [place] [phone] (Wo rk) Social History Tobacco Use Types [...] Sign Reading Time Taken Comments Blood Pressure 143/78 05/31/2016 9:00 AM EDT Pulse 94 05/31/2016 9:00 AM EDT Temperature 36.5 ??C (97.7 ??F) 05/31/2016 9:00 AM EDT Respiratory Rate 16 05/31/2016 9:00 AM EDT Oxygen Saturation 97% 05/31/2016 9:00 AM EDT Inhaled Oxygen Concentration - - Weight - - Height - - Body Mass Index - - documented in this encounter Patient Instructions Patient InstructionsRonnie Vazquez MD - 05/31/2016 9:00 AM EDT 1. Hormone therapy: For aggressive prostate cancers such as yours, I recommend a course of anti-testosterone therapy for 32 months (typically starting 2 months before radiation, contiuing for 2 months during radiation and ongoing after radiation is completed). This is usually given as a shot that lasts for 3 months at a time. The reason we recommend this is that the male hormone testosterone is used by prostate cancer as a fuel. By decreasing the body's production of testosterone, we can 'starve' the prostate cancer. The main side effects of hormone therapy include hot flashes, night sweats, weightgain, depressed mood, loss of sexual interest and impotence. There is also a very low risk of heart a ttack among men who have recently had a heart attack. These side effects usually reverse within 3-6 months of stopping the hormone therapy when testosterone recovers, although it can take up to a full year. 2. Fiducial Markers: The first step will be [...] ask you to undergo the MRI at [facility] and a CT simulation scan here in our [facility], typically 1-2 weeks after the placement of the fiducials. 3. Radiation Therapy and Planning: Radiation therapy involves [...] a prostate MRI which we do at [facility], that allows us to better see [...] we can monitor your response to treatment. 4. Short Term Toxicity (Side Effects) of Radiation: [...] resolve within 4-6 weeks of completion radiation. 5. Prison Complications: These are more worrisome and are due to permanent damage of the radiatedtissues, including the rectum/bowel, bladder, prostate and surrounding tissues. Potential serious injury is rare, but can include poor wound healing, bleeding, or destruction of healthy tissue that mayrequire surgery to repair and may result in a colostomy (bag for defecation) or urostomy (bag for urination). There may be a slow, computer terminal operator decrease in your sexual function as well, [...] but is something to be aware of. 6. Bladder cancer evaluation: Because of you saw urine in your blood, Dr. Pham has recommended someadditional testing to make sure that you don't also have a bladder cancer. These suggested tests were sent to Dr. Curran's office and we will contact him to be sure there that they are going to be scheduled soon. If not, we can help with arranging for them. documented in this encounter Progress Notes Ronnie Vazquez MD - 05/31/2016 9:00 AM EDT [facility] Radiation Oncology Established Patient Followup Patient Identification: Nain Mckeon is a 65-year-old man previously seen for a recent diagnosis of high risk (PSA 47, Andre 4+4, clinical T2b) prostate cancer, with a clinical right internal iliac/obturator lymph node metastasis. For details regarding our initial appointment, please refer to my consultation note dated 05/19/16. Interval History: Since he was last seen, Mr. Mckeon by Dr. Pham of the Urologic Oncology at [facility] on 05/27/16 for the consideration of prostatectomy and/or lymph node sampling. It was Dr. Pham' assessment that the prognostic value of lymph node sampling given the PSA and radiographic appearance of the lymph node would not significantly alter management. In the setting of a metastatic lymph node, prostatectomy was not recommended. The other results of the consultation was a recommendation for further workup regarding the patient's hematuria. Follow-up this patients's local urologist Dr. Curran is anticipated, which will include cystoscopy, CT urogram and urine cytology. In the meantime Mr. Mckeon has decided he wishes to proceed with definitive radiotherapy for his locally advanced prostate cancer. He is here today to discuss logistics regarding this. Review of Systems: On further review, reports that there are no changes since he was last seen by our clini, as documented on the comprehensive patient questionnaire, which is available for review under scanned documents. Medications 05/31/16 0914 Medication Sig Taking? pravastatin (PRAVACHOL) 40 mg Tablet Take 40 mg by mouth daily. Yes clonazePAM (KLONOPIN) 1 mg Tablet Take 2 mg by mouth nightly as needed for Anxiety. Yes lamoTRIgine (LAMICTAL) 150 mg Tablet Take 150 mg by mouth daily. Yes LEVOTHYROXINE SODIUM (LEVOTHROID ORAL) Take by mouth daily. Yes mirtazapine (REMERON) 15 mg tablet Take 15 mg by mouth nightly. Yes bicalutamide (CASODEX) 50 mg Tablet Take 1 tablet by mouth daily. Physical Exam: Vitals: 05/31/16 0900 BP: 143/78 Pulse: 94 Resp: 16 Temp: 36.5 ??C (97.7 ??F) General: alert, well appearing, and in no distress Performance Status Assessment: KPS Score ECOG Grade Definition X 90-100 [...] selfcare; totally confined to bed or chair Interval Investigations: Consultation by Dr. Pham, as per above Assessment: Nain Webb is a 65-year-old man with locally advanced (technically metastatic) prostate cancer, clinically lymph node positive though without evidence for distant metastatic disease. Plan: We discussed the logistics, rationale, toxicities, and complications associated with long-termandrogen deprivation therapy, pelvic and prostatic radiotherapy. Mr. Mckeon also had several questions today regarding the feasibility of hyperfractionated regimens including stereotactic body radiother apy as well as proton radiation therapy. In the setting of a positive pelvic lymph node, stereotactic body radiotherapy would be contraindicated. He may be a candidate for proton radiotherapy, and I have offered to facilitate a referral to [place] for consultation regarding this. I discussed that my primary concern with his prostate cancer isnot so much local regional control, as the pelvic lymph node is adjacent to the prostate and I believe can be covered with full dose. My main concern is that given the clinically apparent LN metasatsis, his risk of regional and distant metastasis may prove to be life limiting. With all this in mind, he would like to still meet with a radiation oncologist to consider proton treatments. We will help to facilitate this as quickly as possible. In the meantime, I have sent a prescription for a two-week supply of bicalutamide for him to begin taking today, and we will go ahead and administer his first Lupron injection. I anticipate a 32 month course for him. He has signed informed consent indicating his tentative intent to proceed with the jakub nning delivery radiotherapy, though again this may be canceled should he decide to proceed with proton treatments in [place]. At this time, we will go ahead and schedule the appointments but delay fiducial marker implantation until a decision regarding proton therapy has been reached. I am not certain whether fiducial marker implantation would make proton treatments does symmetrically less feasible and do not want to proceed with implantation until he decides to have photon based therapy. For now, we will plan to see him back in approximate 1 month's time for fiducial marker implantation, and arrange for MRI of the prostate at [facility] after this, then CT planning simulation scan afterthis. I anticipate should all go as expected, radiotherapy would begin sometime toward the end of July. He understands that fiducial marker implantation and therefore the remainder of the timeline as outlined above may be delayed pending his evaluation in [place]. So, in summary: 1. Referral to [facility] for consideration of proton therapy 2. Lupron today, Casodex for 14 days to prevent flare 3. Fiducial marker implantation in 1 month, to be followed by MRI and CT simulation scan 4. Informed consent obtained for radiotherapy to the pelvis and prostate, 44 fractions to be delivered in [facility]. Simulation scheduled for 07/21, anticipate RT to start week of 08/02. 5. Confirm Dr. Curran's appointments with the patient regarding hematuria workup. 40 minutes of this 40 minute visit was spent face-to face, counseling the patient and answering his questions on treatment options as outlined in my assessment and plan. documented in this encounter Miscellaneous Notes Addendum Note - Ronnie Vazquez MD - 05/31/2016 10:55 AM EDT Addended by: RONNIE VAZQUEZ on: 05/31/2016 10:55 AM Modules accepted: Orders documented in this encounter Plan of Treatment Upcoming Encounters Date Type Specialty Care Team Description 02/04/2022 Office Visit Radiation Oncology Rama Ramos, SALES REPRESENTATIVE METALS [facility] ER RADIATION [place], [place] [address] (Wo rk) documented as of this encounter Procedures Procedure Name Priority Date/Time Associated Diagnosis Comme nts CHEMOTHERAPY SCAN 05/31/2016 12:00 AM Res ults for this EDT procedure are i n the results section. documented in this encounter Results SCAN DOC: CHEMOTHERAPY (05/31/2016 12:00 AM EDT) Narrative 05/31/2016 12:00 AM EDT This result has an attachment that is no t available. Ordered by an unspecified provider. Scanning Provider MEDIA MGR SCAN EXT ORDR/RSLT documented in this encounter Visit Diagnoses Diagnosis Cancer of prostate with high recurrence risk (stage T3a or Gallagher 8-10 or PSA > 20) Malignant neoplasm of prostate 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 documented in this encounter Care Teams Group Care Worker Relationship Specialty Start Date End Date Celio Sanders MD PCP - General Internal Medicine 05/19/16 [address] [place] [address] documented as of this encounter
--- OUTSIDE RECORDS SUMMARY | 2022-01-25 12:40 | XMS_ITS | Encounter Summary ---
:1950 Author Organization [facility] [place] [address] Care Team Providers Name Role Phone Celio Sanders MD Primary Care Provider Encounter Details Date Type Department Care Team Description 05/28/2016 Telephone Radiation Oncology a t [facility] Harjeet Silvestre [address] [place] [phone] Social History Tobacco Use Types Packs/Day Years Used Date Smoking Tobacco: Never Smokeless Tobacco: Never Alcohol Use Standard Drinks/Week Comments Yes 0 (1 standard drink = 0.6 oz pure beer o r wine a couple times a month alcohol) Sex Assigned at Date Recorded Not on file documented as of this encounter Miscellaneous Notes Telephone Encounter - Harjeet Silvestre - 05/28/2016 8:16 AM EDT Patient called requesting an appointment with Dr. Vazquez to discuss treatment seeing as he is not acandidate for surgery. He agreed to come in this coming Wednesday 05/31 at 9am. documented in this encounter Plan of Treatment Upcoming Encounters Date Type Specialty Care Team Description 02/04/2022 Office Visit Radiation Oncology Rama Ramos APRN [facility] RADIATION [place], [place] [address] (Wo rk) documented as of this encounter Visit Diagnoses Not on filedocumented in this encounter Care Teams Supervisor Instrument Maintenance Relationship Specialty Start Date End Date Celio Sanders MD PCP - General Internal Medicine 05/19/16 [address] [place] [address] documented as of this encounter
--- OUTSIDE RECORDS SUMMARY | 2022-01-25 12:40 | XMS_ITS | Encounter Summary ---
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 Matthew Pelaez MD [facility] Rad Mri Procedures MRI Pelvis Soft Tissue (Gi Gu Glove Turner)WO Contrast [facility] [place] [address] [place] [address] Referral ID Status Reason Start Date Expiration Date Visits V isits Requested Authorized [id number] Closed Specialty 07/09/2016 07/09/2017 1 1 Service Requested Encounter Details Date Type Department Care Team Description 07/09/2016 Orders Only Radiation Oncology at Matthew Pelaez N eoplasm of prostate [facility] [place] lymph node [facility] sta ging category pN1: [place] [address] RADIATION ONCOLOGY nodes [phone] [place] [id number] Social History Tobacco Use Types Packs/Day Years [...] Radiation Oncology Rama Ramos APRN [facility] RADIATION [place], [place] [address] (Wo rk) documented as of this encounter Results MRI Pelvis Soft Tissue (Gi Gu Glove Turner)WO Contrast (08/13/2016 5:02 PM EDT) Anatomical Region Laterality Modality Pelvis Magnetic Resonance Specimen (Source) Anatomical Location Collection Method / Collectio n Time Received Time / Laterality Volume Impressions 08/15/2016 8:55 AM EDT 1. ??Limited MRI performed for radiation treatment planning purposes. 2. ??Based on T2 signal alone, there is suspected malignancy in the right peripheral zone with extraprostatic exte nsion. 3. ??Suspicious right internal iliac and right common femoral lymph nodes based on size and morphology. Narrative 08/15/2016 8:55 AM EDT EXAMINATION: MRI PELVIS SOFT TISSUE (GI DOOR MAKER) WO CONTRAST CLINICAL HISTORY: Prostate cancer for RT planning. ??Please include close-cut (1.5-2.0 mm), contiguous, axial T2 image s for 3-D volume definition of gland. COMPARISON: No available comparison MRI TECHNIQUE: Noncontrast MRI of the pelvis was performed. FINDINGS: Prostate: Measures approximately 40 x 52 x 51 mm (calculated volume of 55 cc). There are bilateral signal voids compati ble with fiducial markers. There are mostly right-sided hyperintense foci on T1 WI compatible with blood products. There is T2 hypointensity in the mid and right-sided posterior peripheral zone, which appears to extend beyond the prost ate margin and possibly involving the right neurovascular bundle. There is katie ma/fluid between the prostate and rectum likely resulting from prior biopsy. Seminal vesicles: Although the seminal v esicles are not fully distended, there is asymmetric T2 hypointensity in the ri ght seminal vesicle suspicious for involvement by prostate malignancy. Lymph nodes: Mildly enlarged 9 mm right internal iliac with rounded morphology. There are also rounded and enlarged righ t common femoral lymph nodes measuring 9 and 10 mm respectively. Urinary bladder: Unremarkable Osseous involvement: None Procedure Note Isac Hearn MD - 08/15/2016Format ting of this note might be different from the original. EXAMINATION: MRI PELVIS SOFT TISSUE (GI DOOR MAKER) WO CONTRAST CLINICAL HISTORY: Prostate cancer for RT planning. Please include close-cut (1.5-2.0 mm), contiguous, axial T2 image s for 3-D volume definition of gland. COMPARISON: No available comparison MRI TECHNIQUE: Noncontrast MRI of the pelvis was performed. FINDINGS: Prostate: Measures approximately 40 x 52 x 51 mm (calculated volume of 55 cc). There are bilateral signal voids compati ble with fiducial markers. There are mostly right-sided hyperintense foci on T1 WI compatible with blood products. There is T2 hypointensity in the mid and right-sided posterior peripheral zone, which appears to extend beyond the prost ate margin and possibly involving the right neurovascular bundle. There is katie ma/fluid between the prostate and rectum likely resulting from prior biopsy. Seminal vesicles: Although the seminal v esicles are not fully distended, there is asymmetric T2 hypointensity in the ri ght seminal vesicle suspicious for involvement by prostate malignancy. Lymph nodes: Mildly enlarged 9 mm right internal iliac with rounded morphology. There are also rounded and enlarged righ t common femoral lymph nodes measuring 9 and 10 mm respectively. Urinary bladder: Unremarkable Osseous involvement: None IMPRESSION 1. Limited MRI performed for radiation t reatment planning purposes. 2. Based on T2 signal alone, there is nichols spected malignancy in the right peripheral zone with extraprostatic exte nsion. 3. Suspicious right internal iliac and r ight common femoral lymph nodes based on size and morphology. 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
--- OUTSIDE RECORDS SUMMARY | 2022-01-25 12:40 | XMS_ITS | Encounter Summary ---
:1950 Author Organization [facility] [place] [address] Care Team Providers Name Role Phone Angelica Mak MD Primary Care Provider Encounter Details Date Type Department Care Team Description 04/27/2016 Hospital Encounter Radiology Library at Sabiha Sanders Pain [facility] [address] [place] [address] [place] [address] [phone] Social History Tobacco Use Types Packs/Day Years [...] 02/04/2022 Office Visit Radiation Oncology Rama Ramos, DENTAL HYGIENIST MOBILE COORDINATOR [facility] RADIATION [place], [place] [address] (Wo rk) documented as of this encounter Procedures Procedure Name Priority Date/Time Associated Comments Diagnosis FILM LIBRARY STORAGE Routine 04/27/2016 12:00 AM Pain Results for this ONLY ULTRASOUND EST procedure ar e in STUDY the results section. documented in this encounter Results Film Library- Storage Only Ultrasound Study (04/27/2016 12:00 AM EST) Specimen (Source) Anatomical Location Collection Method / Collectio n Time Received Time / Laterality Volume Narrative [facility] - 05/14/2016 9:55 AM EST This exam is for storage only and is aut o-finalizing. Celio Sanders MD IMG FILM LIBRARY ORDERABLES Performing Organization Address City/State/ZIP Code Phon e Number [place], [place] documented in this encounter Visit Diagnoses Diagnosis Pain Generalized pain documented in this encounter Care Teams Corrosion Technician Relationship Specialty Start Date End Date Angelica Mak MD PCP - General 01/27/10 05/18/16 [address] [place] [address] documented as of this encounter
--- OUTSIDE RECORDS SUMMARY | 2022-01-25 12:40 | XMS_ITS | Encounter Summary ---
:1950 Author Organization [place] [address] Care Team Providers Name Role Phone Celio Sanders MD Primary Care Provider Reason for Visit Consultation (Urgent) - Closed Specialty Diagnoses / Procedures Referred By Contact Refer red To Contact Urology Diagnoses prostate cancer, new dx Elias Curran MD Hyams, Elias S, MD [address] [facility] [address] [place], [place] UROLOGY DEPT . [address] [place] [address] Fax: Referral ID Status Reason Start Date Expiration Date Visits V isits Requested Authorized [id number] Closed Consult, 05/14/2016 05/14/2017 1 1 [facility] Encounter Details Date Type Department Care Team Description 05/27/2016 Office Visit Hematology and Nehemiah Pham MD Malignant neoplasm of Oncology at [facility] prostate [facility] [address] [place] UROLOGY DEPT. [place] [phone] Social History Tobacco Use Types Packs/Day Years [...] Sign Reading Time Taken Comments Blood Pressure 112/98 05/27/2016 2:44 PM EDT Pulse 98 05/27/2016 2:44 PM EDT Temperature - - Respiratory Rate 18 05/27/2016 2:44 PM EDT Oxygen Saturation 98% 05/27/2016 2:44 PM EDT Inhaled Oxygen Concentration - - Weight 82.5 kg (181 lb 14.1 oz) 05/27/2016 2:44 PM EDT Height 161.5 cm (5' 3.58) 05/27/2016 2:44 PM EDT Body Mass Index 31.63 05/27/2016 2:44 PM EDT documented in this encounter Progress Notes Nehemiah Pham MD - 05/27/2016 3:40 PM EDT Images from the original note were not included. This is a pleasant 65 yo man with a history of high risk prostate cancer here for discussion of treatment options. Reason for Consultation: at least Group IIB, high risk (PSA 47.5, Gl 4+4, cT2b) vs. Group IV (N1) prostate cancer Referring Physician / Service: Dr. Curran ?? H/o elevated PSA and abnormal digital rectal exam in the setting of hematuria (x3 episodes) that prompted referral to urology. Prior to biopsy, given the elevated PSA, he underwent bone scan 03/30/2016 that was negative for metastatic disease. On 04/27/2016 Dr. Curran performed ultrasound-guided prostate biopsy that showed [place] 4+4 disease in 2 cores and Andre 4+3 disease in 3 additional cores. All disease involved the right side of the gland which was 57 cc in size. In addition perineural invasion was noted. DIAGNOSIS CONSULTATION CASE Extradepartmental number: ??[id number]; collection date, 04/27/2016. A - Prostatic core needle biopsy, right lateral base: ? 1. Adenocarcinoma, grade group 3, Andre grade 4+3, ?involving 95% of the biopsy core. ? 2. Perineural invasion identified. B - Prostatic core needle biopsy, right medial base: ? 1. Adenocarcinoma, grade group 3, [place] grade 4+3, ?involving 95% of the biopsy core. ? 2. Perineural invasion identified. C - Prostatic core needle biopsy, right mid lateral: ? Adenocarcinoma, grade group 4, [place] grade 4+4, ? involving 90% of the biopsy core. D - Prostatic core needle biopsy, right mid medial: ? 1. Adenocarcinoma, grade group 4, [place] grade 4+4, ?involving 40% of the biopsy [...] left medial apex: ? Benign prostatic tissue. CR-0 Electronically signed by: ??Salvador MUNOZ, Sedrick Lin Verified: ??05/18/2016 ?Pathologist On 05/12/16 he completed staging with a CT of the abdomen and pelvis that showed a 3.4 cm (craniocaudad) enlarged right internal iliac lymph node. He recently saw Dr. Vazquez to discuss the option of XRT/ADT. This was recommended. Of note, he has had gross hematuria x 3, painless. IPSS today 12 (2/4/0/2/2//), no dysuria. LINA 25 Recent rad onc visit: LINA = 20 3 IPSS = 21 incomplete emptying weak stream and straining with nocturia once nightly. Urinary wggfcwn-rw-rmlk = 3. ? Past??Medical??History Past Medical History: Diagnosis Date ??? Anxiety ? Finger fracture ? multiple from basket ball injuries ??? Hyperlipidemia ? Prostate cancer ? The patient was specifically asked and denies a history of prior radiotherapy to this region, systemic sclerodema, or active systemic lupus. ?? Past??Surgical??History Past Surgical History: Procedure Laterality Date ??? APPENDECTOMY ? burst ??? CHOLECYSTECTOMY, LAPAROSCOPIC ? PROSTATE BIOPSY ? Medications 05/19/16 1354 Medication Sig Taking? clonazePAM (KLONOPIN) 1 mg [...] Take 15 mg by mouth nightly. Yes ? Pathology Review: Pathology was reviewed in the medical record, as per HPI and is summarized below: Site: TRUS bx (Dr. Curran) 04/27/16 Histology / Grade: Gl 4+4 x 2 Gl 4+3 x 2 Gl 3+4 x 1 Margin / Catherine status: 3cm internal iliac LN (CT 05/12/16) Other prognostic factors: +PNI Reviewed at [facility]: Y ?? Imaging Review: I have personally reviewed the images from the CT of the abdomen and pelvis dated 05/12/2016 findings as per HPI of enlarged prostate with suspicious appearing right internal iliac node. Clinical Case Manager image is shown below for reference. ? A: 65 yo man with high risk prostate cancer ([place] 8, PSA 47.5, clinical T2b) Enlarged internal iliac node, pathological Mod-severe LUTS Gross hematuria ?? P: We reviewed his history in detail. He has very high risk features. His enlarged node is in a standard drainage region for prostate cancer, and based on size and location is almost certainly pathologic. As such he has locoregional disease. There is a risk of micrometastatic disease as well w/ [place] 8and PSA 47. I recommended that he proceed w/ XRT/ADT which has supportive data for locoregional disease. RP outside the setting of a clinical trial would be inappropriate. I do not believe he benefits frombiopsy of lymph node based on very high pre test probability of LNI. He does not describe particularly bothersome LUTS today, though he has commented on these prior. We discussed that ADT can shrink the prostate and at times ameliorate LUTS. If not, and he has significant primarily obstructive LUTS, he may benefit from bladder outlet surgery. We agreed to reassess in the next 1-2 months. He should have a hematuria evaluation, though his hematuria is likely related to bph/prostate cancer. I recommended CT urogram, cystoscopy, and urine cytology. He agrees and I recommended that these bedone in [facility]. I will send this note to Dr. Curran to request scheduling for these procedures. Also, I will ask Dr. Vazquez to start him ADT and proceed w/ XRT. Mr. Mckeon's questions were answered in detail. documented in this encounter Plan of Treatment Upcoming Encounters Date Type Specialty Care Team Description 02/04/2022 Office Visit Radiation Oncology Rama Ramos, PAINT MAKER [facility] RADIATION [place], [place] [address] (Wo rk) documented as of this encounter Visit Diagnoses Diagnosis Malignant neoplasm of prostate documented in this encounter Care Teams Hand Welt Butter Relationship Specialty Start Date End Date Celio Sanders MD PCP - General Internal Medicine 05/19/16 [address] [place] [address] documented as of this encounter
--- OUTSIDE RECORDS SUMMARY | 2022-01-25 12:40 | XMS_ITS | Encounter Summary ---
:1950 Author Organization [facility] [place] [address] Care Team Providers Name Role Phone Celio Sanders MD Primary Care Provider Encounter Details Date Type Department Care Team Description 06/29/2016 Office Visit Radiation Oncology at [facility] Nurse, [facility] [address] [phone] Social History Tobacco Use Types Packs/Day Years Used Date Smoking Tobacco: Never Smokeless Tobacco: Never Alcohol Use Standard Drinks/Week Comments Yes 0 (1 standard drink = 0.6 oz pure beer o r wine a couple times a month alcohol) Sex Assigned at Date Recorded Not on file documented as of this encounter Progress Notes Alta Muse RN - 06/29/2016 1:00 PM EDT Patient information for gold coil prostate placement Individual involved with teaching: Patient [ x ] spouse [ x ] Other [ ] Procedure Date: 07/07/16 Arrival Time: 08:00 Time of Procedure:~ 8:30 Location: [facility] Why gold coils? You and your doctor have discussed treatment options and have decided that Gold coils would be helpful in your external beam radiation treatment. The coil is a small 24 karat gold coil that will sit within the prostate and help to locate it on the planning CT scan. Usually 2 coils are used...one to janice the left and right sides on the gland. THE WEEK BEFORE THE PROCEDURE: STOP TAKING BLOOD THINNERS Stop taking medications that might thin your blood(anticoagulants) 1 week before your cold coil is scheduled to be placed i.e.;aspirin, ibuprofen, gingko biloba, Coumadin, Lovenox, etc. Please ask if you are not sure about any of your medications. For you this means stop taking [ Any aspirin or ibuprofen ] Prescriptions to get filled: At [facility] Prescription for steroid: to prevent swelling at implant site. [x ]dexamethasone : 2 mg twice a day for 3 days then 2 mg once a day for 3 days starting the day of the procedure. Prescription for Antibiotic: to prevent infection [x ]Ciprofloxacin 500 mg twice a day for 3 days starting the day before the procedure. [ provided today by clinic ]2 fleet enemas- you will need to pick this up over the encounter. No prescription needed. Prescription to help you relax ( if needed) [ x ] Lorazepam 1 mg po 1 hour prior to procedure. Bring 2nd pill with you to procedure in case you need a repeat dose. You must have someone drive you home if you take this medication due to its sedative properties. THE DAY BEFORE THE PROCEDURE: ?? Start Ciprofloxacin as directed. ?? Eat a normal dinner (evening meal) ?? Administer one fleets enema before bedtime THE MORNING AND DAY OF THE PROCEDURE: ?? Administer the second fleets enema (2-3 hours prior to scheduled time of procedure) ?? continue taking Ciprofloxacin. ?? Eat a normal breakfast and take your usual morning medication (except anticoagulants) Plan to arrive in the Radiation/Oncology Department 30 minutes before scheduled procedure. You will be asked to change in to a hospital gown (remove everything from your waist down.) How is procedure done? You will be brought into a procedure room and asked to lie on your back with your feet placed in stirrups. An ultrasound probe will be inserted into your rectum in order to visualize your prostate gland. After you are given a local anesthetic, the 2 needles containing the coils will be gently inserted through the skin into your prostate gland. AFTER THE PROCEDURE: ?? You may resume normal activity ?? You may take extra-strength or regular Tylenol for any discomfort. ?? Continue taking the antibiotic,Ciprofloxacin twice a day until completed (TOTAL OF 3 FULL DAYS) ?? start dexamethasone as directed. 1 pill twice a day for 3 days, then 1 pill once a day for 3 days. Call us if you notice any unusual swelling ,pain or if you have any other concerns. >>>> Very Importatn, do not drive Day of procedure after taking the lorazepam.>>>>> Future Appointments: ?? [place] [facility] [place] You will receive separate instructions specifically from [facility] concerning your exactarrival time and what you need to do to prepare for this. Date: 07/14 [facility] will give you the exact arrival time. ?? Your planning session (simulation) will be done the following week at [facility]. [Date: 07/21 ] [Time:arrive at 11:00 ] For proper visualization of prostate, it is required that you have a moderately full bladder. This will require you to arrive 30 minutes before scheduled appointment and drink 2 glasses of water upon arrival. There are no restrictions with eating. How to reach us: [facility] [phone] For weekends and after hours: Call [facility] ask for the destination imagination coordinator radiation oncologist This template was transcribed from [facility] Shared drive: I:\Nursing\\Cold Coils\preparation for cold coil placement documented in this encounter Plan of Treatment Upcoming Encounters Date Type Specialty Care Team Description 02/04/2022 Office Visit Radiation Oncology Rama Ramos APRN [facility] RADIATION [place], [place] [address] (Wo rk) documented as of this encounter Visit Diagnoses Diagnosis Malignant neoplasm of prostate documented in this encounter Care Teams Product Marketing Analyst Relationship Specialty Start Date End Date Celio Sanders MD PCP - General Internal Medicine 05/19/16 [address] [place] [address] documented as of this encounter
--- OUTSIDE RECORDS SUMMARY | 2022-01-25 12:40 | XMS_ITS | Encounter Summary ---
:1950 Author Organization [facility] [place] [address] Care Team Providers Name Role Phone Celio Sanders MD Primary Care Provider Encounter Details Date Type Department Care Team Description 06/03/2016 Telephone Radiation Oncology a [facility] Harjeet Silvestre [address] [place] [phone] Social History Tobacco Use Types Packs/Day Years Used Date Smoking Tobacco: Never Smokeless Tobacco: Never Alcohol Use Standard Drinks/Week Comments Yes 0 (1 standard drink = 0.6 oz pure beer o r wine a couple times a month alcohol) Sex Assigned at Date Recorded Not on file documented as of this encounter Miscellaneous Notes Telephone Encounter - Harjeet Silvestre - 06/03/2016 8:57 AM EDT I called Nain to give him his next few appointments after hearing from Dr. Vazquez that he would like to proceed with the gold coil. I informed Nain of his nurse teaching appointment 06/29 at 1 and his gold coil procedure 07/07 at 8. I told him that I am finishing up scheduling the rest of his appointments and he will be receiving a letter with all of them in the mail soon. He was agreeable to all of this. documented in this encounter Plan of Treatment Upcoming Encounters Date Type Specialty Care Team Description 02/04/2022 Office Visit Radiation Oncology Rama Ramos, KENNY [facility] RADIATION [place], [place] [address] (Wo rk) documented as of this encounter Visit Diagnoses Not on filedocumented in this encounter Care Teams Digital Advertising Analyst Relationship Specialty Start Date End Date Celio Sanders MD PCP - General Internal Medicine 05/19/16 [address] [place] [address] documented as of this encounter
--- OUTSIDE RECORDS SUMMARY | 2022-01-25 12:40 | XMS_ITS | Encounter Summary ---
:1950 Author Organization [facility] [place] [address] Care Team Providers Name Role Phone Angelica Mak MD Primary Care Provider Encounter Details Date Type Department Care Team Description 05/18/2016 Telephone Radiation Oncology a t [facility] Harjeet Silvestre [address] [place] [phone] Social History Tobacco Use Types Packs/Day Years Used Date Smoking Tobacco: Never Assessed Sex Assigned at Date Recorded Not on file documented as of this encounter Miscellaneous Notes Telephone Encounter - Harjeet Silvestre - 05/18/2016 2:49 PM EDT Received a call from Yaneth (Nain's ) saying that she believes that coming in for 1PM should be fine. She will inform Nain and he is to call if he cannot make it in. Telephone Encounter - Harjeet Silvestre - 05/18/2016 2:32 PM EDT Left a message asking if Nain could come in at 1PM tomorrow instead of 8:30 due to the weather. Asked that he call back with his answer. documented in this encounter Plan of Treatment Upcoming Encounters Date Type Specialty Care Team Description 02/04/2022 Office Visit Radiation Oncology Rama Ramos, KENNY [facility] RADIATION [place], [place] [address] (Wo rk) documented as of this encounter Visit Diagnoses Not on filedocumented in this encounter Care Teams A P Mechanic Relationship Specialty Start Date End Date Angelica Mak MD PCP - General 01/27/10 05/18/16 [address] [place] [address] documented as of this encounter
== END ==
PROVIDERS: PCP Internal Medicine; Visit Provider Nurse Practitioner Family
DX: M25.532 Pain in left wrist (principal); S52.572A Other intraarticular fracture of lower end of left radius, initial encounter for closed fracture; X58.XXXA Exposure to other specified factors, initial encounter
CPT/HCPCS: 73110

== ENCOUNTER → 2022-02-08 12:45 | Outpatient (CLI) | payer MEDICARE, OTHER, SELFPAY ==
--- NOTE | 2022-02-08 12:30 | DI.CT_ITS ---
Exam(s) CT UPPER EXTREMITY LT WO EXAM: CT UPPER EXTREMITY LT WO CLINICAL HISTORY: ? AMOUNT INTRA-ARTICULAR DISPLACEMENT, fracture distal radius, S52.502A TECHNIQUE: Imaging Protocol: Axial computed tomography images with coronal and sagittal reformatted images were created and reviewed. CONTRAST MATERIAL: Noncontrast COMPARISON: CR XR WRIST LT COMPLETE from 02/08/2022 FINDINGS: There is a comminuted, impacted, intra-articular fracture of the distal radius. There is separation of the fracture at the articular surface 4-5 millimeters with displacement ventrally. The distal uln a and carpal bones appear intact. IMPRESSION: Comminuted, displaced intra-articular fracture of the distal radius. RADIATION DOSE DELIVERED: 128.12mGy.cm Total DLP DATA REPOSITORY: All CT scans at this facility are submitted to the National Radiology Data Registry (NRDR) Dose Index Registry (DIR) with the [employer] (A[employer]). RADIATION OPTIMIZATION: All CT scans at this facility use at least one of these dose optimization te chniques: automated exposure control; mA and/or kV adjustment per patient size (includes targeted exa ms where dose is matched to clinical indication); or iterative reconstruction.
== END ==
PROVIDERS: PCP Internal Medicine; Visit Provider Student in an Organized Health Care Education/Training Program
DX: S52.572A Other intraarticular fracture of lower end of left radius, initial encounter for closed fracture; X58.XXXA Exposure to other specified factors, initial encounter
CPT/HCPCS: 99214; 73110; 73200

== ENCOUNTER 2022-02-08 13:11 | Outpatient (CLI) | payer MEDICARE, OTHER, SELFPAY ==
--- NOTE | 2022-02-08 11:30 | DI.RAD_ITS ---
Exam(s) XR WRIST LT COMPLETE EXAM: XR WRIST LT COMPLETE INDICATION: f/u L distal radius frx. COMPARISON: CR XR WRIST LT COMPLETE from 01/25/2022 TECHNIQUE: 2D digital imaging was performed. Three views. FINDINGS: There has been no change in the alignment of the comminuted intra-articular fracture of the distal ra dius. No new abnormalities are seen. DATA REPOSITORY: RADIATION DOSE DELIVERED:
== END 2022-02-08 13:12 | disposition home or self-care (01) ==
LOC: DIORS 13:12
PROVIDERS: PCP Internal Medicine; Referring Provider Internal Medicine; Visit Provider Student in an Organized Health Care Education/Training Program
DX: S52.502A Unspecified fracture of the lower end of left radius, initial encounter for closed fracture (principal); W19.XXXA Unspecified fall, initial encounter
CPT/HCPCS: 99214; 73110

== ENCOUNTER 2022-02-10 10:54 | Day surgery (SDC) | payer MEDICARE, OTHER, SELFPAY ==
[2022-02-10] VITALS (8 sets, daily range): BP systolic 108–133; BP diastolic 42–97; PULSE 64–78; RESP 14–16; TEMP 36.3–36.5; O2SAT 94–97; BMI 33.3
--- NOTE | 2022-02-10 09:46 | PDOC.DSDIS_ITS ---
Date of service: 02/10/22 Time of Service: 12:44 Discharge Plan Disposition Patient Disposition: Home Condition: Good Discharge Details Reason For Visit: Left distal radius fracture Attending Provider: Isac Fernandez Primary Care Provider: Dewayne Mckinley Home Meds and New Rx's Prescriptions: New acetaminophen 500 mg tablet 500 mg PO Q6H PRN (Reason: pain) Qty: 60 2RF ibuprofen 600 mg tablet 600 mg PO TID PRN (Reason: pain) Qty: 60 0RF oxycodone 5 mg tablet 5 mg PO Q6H PRN (Reason: severe post-operative pain) Qty: 12 0RF Rx Instructions: Take one tablet up to every 6 hours as needed for severe pain Continued lamotrigine 100 mg tablet 100 mg PO BID benztropine 0.5 mg tablet 0.5 mg PO DAILY duloxetine [Cymbalta] 60 mg capsule,delayed release(DR/EC) 30 mg PO BID multivitamin Tablet 1 tab PO DAILY melatonin 5 mg tablet 10 mg PO HS PRN turmeric-turmeric root extract 450-50 mg capsule 1 cap PO DAILY pravastatin 20 mg tablet 40 mg PO DAILY levothyroxine 75 MCG tablet 75 mcg PO DAILY Qty: 4 0RF Discontinued ibuprofen 200 mg tablet 200 mg PO Q8H PRN Discharge Instructions Additional Instructions: Wrist Fracture Fixation Discharge Instructions Activity: You should keep the hand/wrist elevated as much as possible for the first few days. You may use the other fingers as tolerated but avoid trying to do too much too soon. You may perform light activities with the splint in place. Dressing/Cast: Your splint should stay in place at all times. Do NOT get it wet. You may loosen the SUZETTE wrap if you feel it is too tight and then rewrap more loosely. Medications: - You should take Tylenol and [Ibuprofen] for baseline pain control. - You have been prescribed a stronger pain medication, [Oxycodone], for break through pain. - You may apply ice over the wrist, just double bag so it doesn't get wet. Follow-up: 10-14 days Stand Alone Forms: Jim Kilg[place] Tunnel Release Referrals: Isac Fernandez MD [ [facility] STAFF PHYSICIAN] - Equipment/Supplies: Splint Activity:: Elevate Remove Dressings/Wound Care:: Do Not Remove Shower/Bathe:: Cover Diet:: As Tolerated Discharge Orders Discharge Orders: Discharge Order (Routine); Ordered 02/10/22 Ordered By: Divya Brown
--- NOTE | 2022-02-10 12:28 | W.ANESPRE ---
General Info Date of Service Date Performed: 02/10/22 Height: 5 ft 3 in Weight: 85.2 kg Body Mass Index (BMI): 33.3 Surgical Procedure: Operation Date: 02/10/22 12:55 Proposed Procedure Side Surgeon p Wrist ORIF Distal Radius Left Isac Fernandez MD s Wrist ECTR Left Isac Fernandez MD Meds Allergies and Home Medications Allergies Allergy/AdvReac Type Severity Reaction Status Date / Time No Known Allergies Allergy Verified 02/10/22 11:04 Home Medication Medication Instructions Recorded levothyroxine 75 mcg tablet 75 mcg PO DAILY #4 tabs 08/04/17 pravastatin 20 mg tablet 40 mg PO DAILY 01/25/19 lamotrigine 100 mg tablet 100 mg PO BID 07/29/20 benztropine 0.5 mg tablet 0.5 mg PO DAILY 09/15/21 duloxetine 60 mg capsule,delayed 30 mg PO BID 09/15/21 release (Cymbalta) melatonin 5 mg tablet 10 mg PO HS PRN 02/02/22 multivitamin 1 tab PO DAILY 02/02/22 turmeric 450 mg-turmeric root 1 cap PO DAILY 02/02/22 extract 50 mg capsule acetaminophen 500 mg tablet 500 mg PO Q6H PRN pain #60 tabs 02/10/22 ibuprofen 600 mg tablet 600 mg PO TID PRN pain #60 tabs 02/10/22 oxycodone 5 mg tablet 5 mg PO Q6H PRN severe 02/10/22 post-operative pain #12 tabs Current Visit Medications: Current Medications Generic Name Dose Route Start Last Admin Trade Name Pop PRN Reason Stop Dose Admin Acetaminophen 650 mg 02/10/22 09:45 Acetaminophen 325 Mg Tab PO Q4H PRN PRN Hydrocodone Bitart/Acetaminophen 0 tab 02/10/22 09:45 Hydrocodone 5/Acetaminophen 325 Tab PO Q3H PRN PRN Pain Ringer's Solution 1,000 mls @ 80 mls/hr 02/10/22 06:00 IV 03/11/22 23:59 INFUSION SUZANNE Cefazolin Sodium/Dextrose 2 gm in 50 mls @ 100 mls/hr 02/10/22 06:00 Ancef Duplex IVPB 02/10/22 16:00 PREOP SUZANNE IV Miscellaneous Supplies 1 each 02/10/22 06:00 Iv Access IV 03/11/22 23:59 DIRECTED SUZANNE Sodium Chloride 0 ml 02/10/22 06:00 Normal Saline Flush 10 Ml Syr IV 03/11/22 23:59 PRN PRN Sodium Chloride 0 ml 02/10/22 06:00 Normal Saline 10 Ml Vial IJ 03/11/22 23:59 DIRECTED PRN Sterile Water 0 ml 02/10/22 06:00 Water,Injection,Sterile 10 Ml Vial IJ 03/11/22 23:59 DIRECTED PRN PFSH Active Problems Active Problems: Problem Status Onset Code Intra-articular fracture of distal end of radius with volar angulation S52.579A Fracture of left distal radius S52.502A 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, T43.505A BRCA2 gene mutation positive Z15.01, Z15.09 Prediabetes R73.03 Family history of colon cancer Z80.0 Major depression F32.9 Suicide ideation R45.851 Bipolar disorder, manic F31.10 Prostate cancer C61 Hyperlipidemia E78.5 Hypothyroidism E03.9 Memory loss R41.3 Drug-induced tremor G25.1 Discharge planning issues Z02.9 Medical History Medical History Psoriasis Surgical History Surgical History History of colonoscopy (~07/2013) S/P appendectomy S/P cholecystectomy S/P tonsillectomy Tobacco Smoking/Tobacco Use Status: Never Alcohol Alcohol Intake: current Alcohol intake frequency: holidays/special occasions only Substance Use Substance use: Never Substance use type: does not use Vital Signs and Lab Results Vital Signs Most Recent Vital Signs in EMR: Most Recent Vital Signs Temp Pulse Resp BP Pulse Ox 36.3 C L 78 16 131/82 97 02/10/22 11:07 02/10/22 11:07 02/10/22 11:07 02/10/22 11:07 02/10/22 11:07 Lab Results Blood Type / Crossmatch: No Data to Display Complete Blood Count: No Data to Display Complete Metabolic Panel: No Data to Display Liver Function Panel: No Data to Display Coagulation Panel: No Data to Display Cardiac Panel: No Data to Display Arterial Blood Gas: No Data to Display Venous Blood Gas: No Data to Display Pancreas Panel: No Data to Display Thyroid Panel: No Data to Display Infectious Disease: No Data to Display Blood Cultures: No Data to Display Toxicology Panel: No Data to Display Imaging and Studies Imaging and Studies Study information below may be from another EMR and interpreted by another provider. Please see original notes in EMR for more complete details. EKG Summary: 10/22/2019: Conclusion Atrial flutter with predominant 3:1 AV block...A-rate 245, multiple Ps Inferior infarct, old...Q >35mS, II III aVF Anesthesia Assessment and Plan Anesthesia History Personal History: No History of Anesthesia Complications Family History: No Family History of Anesthesia Complications Exercise Tolerance Exercise Tolerance: Metabolic Equivalents>4 Pertinent Negatives Pertinent Negatives: No Symptoms of GERD, No Major Cardiovascular Symptoms or Complaints and No Major Pulmonary Symptoms or Complaints Cardiac & Pulmonary Exam Cardiac Exam: Normal S1/S2 Heart Sounds Pulmonary Exam: Clear Bilateral Breath Sounds Implantable Cardiac Device Does patient have a Pacemaker or an ICD?: No Airway Exam Known Difficult Airway: No Mallampati Class: 2 Mouth Opening: Normal (> 3cm) Thyromental Distance: Greater than 3 cm Neck Range of Motion: Full ROM Neck Circumference: Normal Teeth Condition: Normal Dentition ASA Classification ASA Score: ASA 2 Emergency Case?: No NPO Status NPO Status: NPO Clears >2 hours, Solids >8 hours Anesthesia Plan Resuscitation Status: Full Code Anesthesia Technique: General Anesthesia Airway Planned: LMA Monitors Used: Standard Monitors
[2022-02-10] MEDS: ceFAZolin 2 GM/50 ML BAG IVPB (13:01)
[2022-02-10] MEDS: Bupivacaine 0.5% Pres-Free W/EPI 30 ML VIAL (13:24)
[2022-02-10] MEDS: Lactated Ringers 1,000 ML 80 ML IV (13:39)
--- NOTE | 2022-02-10 14:26 | W.PM.OP ---
Date of service: 02/10/22 Time of Service: 14:26 Operative Note Operative Note DATE OF PROCEDURE: 02/10/22 PRE-OP DIAGNOSIS: Intra-articular distal radius fracture, three-part, left wrist Left carpal tunnel syndrome POST-OP DIAGNOSIS: same PROCEDURE: Open reduction internal fixation of a three-part intra-articular distal radius fracture of the left wrist Endoscopic left carpal tunnel release SURGEON: Isac Fernandez ANESTHESIA TYPE: General LMA/ETT Refer to Anesthesia Record ESTIMATED BLOOD LOSS: 10 PATHOLOGY: none sent TOURNIQUET TIME: 55 COMPLICATIONS: None Patient was transported to: PACU Patient's condition: stable Indications: Nain is a 71 year old male who I have seen for a distal radius fracture. Given the deformity, articular displacement, fracture pattern, and effect on daily function, I recommended surgical fixation. I reviewed the risk of the procedure to include bleeding, infection, stiffness, damage to nerves and vessels, damage to muscles and tendons, malunion, nonunion, hardware prominence, tendon rupture, need for repeat procedures. He also has some ongoing numbness and tingling of the median nerve distribution which was worse after the fracture. Therefore I also recommend proceeding with carpal tunnel release. I reviewed these risk to include bleeding, infection, continued numbness, damage nerves and vessels, recurrence. Despite these risks, the patient elected to proceed. Findings: There is a distal radius fracture which had 3 primary articular parts. Articular impaction seen on the CT scan was disimpacted through the fracture line volarly using a freer. The articular split which was mostly coronal was reduced with direct pressure and fixed with a Synthes volar rim locking plate. Procedure Description: Nain was greeted in the preoperative holding area. The correct patient and site was confirmed and marked. The history and physical was updated. The consent was reviewed the patient and signed. The patient was taken to the operating room and placed in the supine position. All bony problems were well-padded. The left arm was placed onto a radiolucent hand table. A nonsterile tourniquet was placed high up on the arm. Prophylactic antibiotics in the form of cefazolin were administered. The left arm was prepped with ChloraPrep and draped in a standard fashion. A timeout was performed for safe surgery. Starting with the carpal tunnel surgery, the surgical site was marked in the volar wrist creases in line with the radial border of the fourth ray biased slightly ulnarly.? This area was anesthetized with approximately 6cc of 0.5% bupivacaine with epinephrine. Repropose surgical site overlying the flexor carpi radialis was also anesthetized with the same.? The limb was then exsanguinated with an Esmarch.? The skin was incised with a 15 blade, approximately 1cm.? The skin only was cut and the deeper tissue was dissected bluntly with a tenotomy scissor, avoiding passing nerve and venous structures.? The fascia was penetrated and opened bluntly.? A two-prong skin hook was placed under this proximal fascial edge.? A series of hamate finders were used to identify and dilate the carpal tunnel.? Synovial elevator was used to free synovial attachments to the underside of the transverse carpal ligament.? My thumb was kept in the palm to janice the distal extent of the carpal tunnel and correctly position the hand.? The Microaire endoscope was inserted without difficulty and without resistance.? Excellent visualization showed horizontally running fibers of the transverse carpal ligament (TCL).? The distal extent of the TCL was visualized and the end of the scope palpated with the thumb.? The blade was elevated and withdrawn from distal to proximal.? The TCL was split into two flaps.? The endoscope was reinserted to confirm complete release and any remnant ligament was incised.? The scope was withdrawn and the proximal aspect of the carpal tunnel was grossly inspected and appeared release with the median nerve visible.? The antebrachial fascia at the level of the wrist was then freed from the overlying skin and then the underlying median nerve with blunt dissection.? This was transected longitudinally for about 3cm proximal to the wrist incision.? The wound was then irrigated with easy flow of irrigant distally and proximally.? The incision was closed with a single 4-0 Nylon suture.? The wound was dressed with Xeroform, Gauze, Kerlix and Bruce.? Patient was then turned to the distal radius. A standard longitudinal incision was made overlying the flexor carpi radialis tendon starting at the distal wrist crease and moving proximally. The skin was incised sharply. The flexor carpi radialis tendon and its sheath is identified. The sheath was opened. The tendon was moved ulnarly in the floor of the sheath was incised. Blunt dissection the flexor pollicis longus muscle belly and tendon were also made radially exposing the pronator quadratus and the distal radius. The printer quadratus was elevated with an ulnar-based flap. This exposed the volar distal radius and the fracture. A galvan elevator was used for full exposure of the volar surface of the distal radius. The primary fracture line was exposed which was hinged without true displacement. The fracture lines extending to the volar surface of the distal radius were identified. Using a series of elevators, curettes, and knife, the fracture was fully debrided of any fibrous tissue and callus formation. I used a freer elevator to help mobilize the fragments. There is a radial and ulnar component to the volar distal radius. Using a [place]mith, I went through the radial most fracture line and elevated the distal articular surface. This was done under fluoroscopic guidance to ensure that the piece was elevated. Unfortunately, it is an intercalary piece and so visualization was challenging with overlapping of the surrounding radius and ulna. However, the step-off which was initially appreciated was no longer present. Direct pressure from anterior to posterior was applied which secured the coronal split and seem to hold the fracture fragments in a reduced position. I then placed the volar rim plate onto the distal radius and applied a clamp to hold this in position resting over the volar rim of the distal radius and pushing posteriorly. This was manually held in position and secured with a K wire. A single 2.4 mm nonlocking screw was then placed in the distal row of the plate. This had excellent purchase and brought the fracture fragments together as well as the plate down to the bone. Once again, this was reviewed with fluoroscopy and appeared to be in good position. A single 2.7 mm nonlocking screw was placed in the proximal segment of the plate. Once again, the plate was evaluated to make sure it was aligned appropriately. The single screw was also checked to make sure it was in appropriate positioning for trajectory of future screws. The remainder of the screws of the distal row within the volar locking plate were filled with locking screws. These were made sure not to penetrate the dorsal cortex. 2.7 mm nonlocking screws were placed within the 3 more proximal shaft screw holes. Final x-rays were obtained which demonstrated adequate reduction and positioning of hardware. The dorsal sunrise view was also obtained to ensure correct sizing of screws. The wound was then thoroughly irrigated. The pronator quadratus was reapproximated with a 0 Vicryl. The tourniquet was released and there was no notable vascular injury. The fingers were warm and well-perfused. The deep dermal layer was closed with a 2-0 Vicryl. The skin was closed with 4-0 nylon. The wound was dressed with Xeroform, 4 x 4's, web roll. A short arm splint was applied. At the end the case all counts are correct. Patient was transferred back to the PACU in stable condition.
--- NOTE | 2022-02-10 14:42 | DI.RAD_ITS ---
Exam(s) XR WRIST LT COMPLETE EXAM: XR WRIST LT COMPLETE CLINICAL HISTORY: fractured wrist TECHNIQUE: 2D and realtime digital imaging was performed. COMPARISON: CR XR WRIST LT COMPLETE from 01/25/2022 FINDINGS: C-arm fluoroscopy was utilized by Dr. Fernandez during open reduction and internal fixation of fractur e of the distal radius. Hard copy shows plate and screw fixation in place transfixing the fracture f ragments. IMPRESSION: RADIATION DOSE DELIVERED: abraham Elliott=1.45 mGy Total DLP
--- NOTE | 2022-02-12 09:20 | W.ANESPOSTOP ---
Postoperative Evaluation Date, Time and Location Date Performed: 02/12/22 Time Performed: 15:56 Patient Location: Day Surgery Unit Vital Signs Most Recent Imported Vital Signs: Most Recent Vital Signs Temp Pulse Resp BP Pulse Ox 36.5 C 74 16 108/97 H 94 02/10/22 15:50 02/10/22 15:50 02/10/22 15:50 02/10/22 15:50 02/10/22 15:50 Pain Score Most Recent Pain Score: Most Recent Pain Score Pain Level 2 02/10/22 15:50 Assessment Mental Status: Awake (Alert & Oriented to Patient Baseline) Airway and Respiratory Function: Patent airway with normal (patient baseline) respiratory exam Cardiovascular Function: Hemodynamically Stable Hydration Status: Adequately Hydrated Nausea & Vomiting: No Nausea or Vomiting Pain: Pt. Denies Any Pain Peripheral Nerve Block: Patient did not receive a nerve block
== END 2022-02-10 16:30 | disposition home or self-care (01) ==
PROVIDERS: PCP Family Medicine; Visit Provider Student in an Organized Health Care Education/Training Program
PROC: (CPT 25609; principal; 2022-02-10 12:45)
PROC: 01N54ZZ Release Median Nerve, Percutaneous Endoscopic Approach (ICD-10-PCS; CPT 29848; 2022-02-10 12:45)
DX: S52.572A Other intraarticular fracture of lower end of left radius, initial encounter for closed fracture (principal); G56.02 Carpal tunnel syndrome, left upper limb; X58.XXXA Exposure to other specified factors, initial encounter; Z79.899 Other long term (current) drug therapy; G25.1 Drug-induced tremor
CPT/HCPCS: 25609; 29848; C1776; 73110; J0131; J0690; J1100; J1885; J2405

== ENCOUNTER 2022-02-15 14:41 | Outpatient (REF) | payer MEDICARE, OTHER, SELFPAY | END 2022-02-15 14:42 | disposition home or self-care (01) | LOC: NCHCN 14:41 | PROVIDERS: PCP Family Medicine; Visit Provider Family Medicine | DX: E03.9 Hypothyroidism, unspecified (principal) | CPT/HCPCS: 84443 ==

== ENCOUNTER 2022-02-22 15:24 | Outpatient (CLI) | payer MEDICARE, OTHER, SELFPAY ==
--- NOTE | 2022-02-22 15:00 | DI.RAD_ITS ---
Exam(s) XR WRIST LT LIMITED EXAM: XR WRIST LT LIMITED INDICATION: f/u L wrist frx ORIF. COMPARISON: CR XR WRIST LT COMPLETE from 02/08/[address] UPPER EXTREMITY LT WO from 02/08/2022 CR XR WRIST LT COMPLETE from 02/10/2022 TECHNIQUE: 2D digital imaging was performed. Two views. FINDINGS: There has been no change in the alignment of the fixation plate along the volar aspect of the distal radius. There has been no change in alignment of the distal radial fracture from the intraoperative images. DATA REPOSITORY: RADIATION DOSE DELIVERED:
== END 2022-02-22 15:25 | disposition home or self-care (01) ==
LOC: DIORS 15:25
PROVIDERS: PCP Family Medicine; Referring Provider Family Medicine; Visit Provider Student in an Organized Health Care Education/Training Program
DX: S52.572A Other intraarticular fracture of lower end of left radius, initial encounter for closed fracture (principal); G56.02 Carpal tunnel syndrome, left upper limb; X58.XXXA Exposure to other specified factors, initial encounter
CPT/HCPCS: 73100

== ENCOUNTER 2022-03-26 11:52 | Outpatient (CLI) | payer MEDICARE, OTHER, SELFPAY ==
--- NOTE | 2022-03-26 11:15 | DI.RAD_ITS ---
Exam(s) XR WRIST LT LIMITED EXAM: XR WRIST LT LIMITED CLINICAL HISTORY: L wrist frx. TECHNIQUE: 2D digital imaging was performed of the left wrist. Two images were obtained. PA and la teral views were obtained. COMPARISON: CR XR WRIST LT COMPLETE from 01/25/[address] UPPER EXTREMITY LT WO from 02/08/2022 CR XR WRIST LT LIMITED from 02/22/2022 FINDINGS: BONES: There is again seen a sideplate and screws in the distal left radius. The fracture appears to be mostly healed. There may be some residual fracture line along the lateral aspect of the distal r adius. No new fractures identified. No bony destructive lesion is seen. JOINTS: The carpal bones are normally aligned. SOFT TISSUE: Normal. IMPRESSION: DATA REPOSITORY: RADIATION DOSE DELIVERED:
== END 2022-03-26 11:53 | disposition home or self-care (01) ==
LOC: DIORS 11:53
PROVIDERS: PCP Family Medicine; Referring Provider Family Medicine; Visit Provider Student in an Organized Health Care Education/Training Program
DX: S52.572D Other intraarticular fracture of lower end of left radius, subsequent encounter for closed fracture with routine healing (principal); R20.0 Anesthesia of skin; R20.2 Paresthesia of skin; X58.XXXD Exposure to other specified factors, subsequent encounter
CPT/HCPCS: 73100

== ENCOUNTER → 2022-04-12 13:29 | Outpatient (BNVA) | payer MEDICARE, OTHER, SELFPAY | PROVIDERS: PCP Family Medicine; Referring Provider Family Medicine; Visit Provider Physician Assistant | DX: S52.572D Other intraarticular fracture of lower end of left radius, subsequent encounter for closed fracture with routine healing (principal); X58.XXXD Exposure to other specified factors, subsequent encounter; M77.11 Lateral epicondylitis, right elbow ==

== ENCOUNTER 2022-05-03 02:38 | Outpatient (CLI) | payer MEDICARE, OTHER, SELFPAY ==
[2022-05-03 14:07] LABS: Abs Immature Grans 0.01 10^3/uL (0.0-0.06); Absolute Basophil Count 0.04 10^3/uL (0.0-0.2); Absolute Eosinophil Count 0.29 10^3/uL (0.0-0.7); Absolute Monocyte Count 0.74 10^3/uL (0.1-0.8); Absolute Neutrophil Count 4.58 10^3/uL (1.2-6.7); Basophils % 0.5; Eosinophils % 3.3; HCT 39.1 % (40.0-50.0); HGB 13.1 g/dL (13.5-17.5); Immature Grans % 0.1; Lymphocytes % 34.6; MCH 30.8 pg (27.0-33.0); MCHC 33.5 % (32.0-36.0); MCV 92 fL (80-95); MPV 8.6 fL (8.0-11.0); Monocytes % 8.5; Platelet Count 322 10^3/uL (130-400); RBC 4.26 10^6/uL (4.36-5.78); RDW 13.2 % (11.8-14.1); RDW-SD 44.1 fL; WBC 8.66 10^3/uL (4.4-10.8)
[2022-05-03 14:23] LABS: ALT 33 U/L (16-63); AST 24 U/L (15-37); Alkaline Phosphatase 71 U/L (46-116); Anion Gap 8.3 mmol/L (3-11); BUN 24 mg/dL (7-18); Bilirubin, Total 0.3 mg/dL (0.2-1.0); CO2 29.7 mmol/L (21.0-32.0); CREATININE 1.1 mg/dL (0.70-1.30); Calcium 9.5 mg/dL (8.5-10.1); Chloride 103 mmol/L (98-107); Estimated GFR 70.88 (mL/min/1.73m2); Glucose 108 mg/dL (74-106); Potassium 4.5 mmol/L (3.5-5.1); Sodium 141 mmol/L (136-145); Total Protein 7.8 g/dL (6.4-8.2)
[2022-05-03 14:44] LABS: Vitamin D 25 Total 31.1 ng/mL (30-100)
[2022-05-04 19:56] LABS: PSA, Ultrasensitive 0.98 ng/mL (<= 6.5)
[2022-05-10 17:52] LABS: Testosterone, Total 63 ng/dL (240-950)
== END 2022-05-03 02:39 | disposition home or self-care (01) ==
LOC: LBO 02:38
PROVIDERS: PCP Family Medicine; Visit Provider Nurse Practitioner Family
DX: E55.9 Vitamin D deficiency, unspecified (principal); C61 Malignant neoplasm of prostate
CPT/HCPCS: 36415; 80053; 82306; 84153; 84403; 85025

== ENCOUNTER 2022-06-14 10:15 | Day surgery (SDC) | payer MEDICARE, OTHER, SELFPAY ==
[2022-06-14 10:43] VITALS: BP 136/84; PULSE 86; RESP 18; TEMP 36.4; O2SAT 97
[2022-06-14] MEDS: Tropicam./Phenyleph. (1/2.5%) 5 ML BTL OD ×3 (10:50→11:05)
--- NOTE | 2022-06-14 11:09 | W.ANESPRE ---
General Info Date of Service Date Performed: 06/14/22 Height: 5 ft 3 in Weight: 83.1 kg Body Mass Index (BMI): 32.4 Surgical Procedure: Operation Date: 06/14/22 13:40 Proposed Procedure Side Surgeon p Cataract Extraction with IOL Implant Right Nirav Treviño MD Meds Allergies and Home Medications Allergies Allergy/AdvReac Type Severity Reaction Status Date / Time No Known Allergies Allergy Verified 06/11/22 12:42 Home Medication Medication Instructions Recorded levothyroxine 75 mcg tablet 75 mcg PO DAILY #4 tabs 08/04/17 pravastatin 20 mg tablet 40 mg PO DAILY 01/25/19 lamotrigine 100 mg tablet 100 mg PO BID 07/29/20 duloxetine 60 mg capsule,delayed 30 mg PO BID 09/15/21 release (Cymbalta) melatonin 5 mg tablet 10 mg PO HS PRN 02/02/22 multivitamin 1 tab PO DAILY 02/02/22 turmeric 450 mg-turmeric root 1 cap PO DAILY 02/02/22 extract 50 mg capsule acetaminophen 500 mg tablet 500 mg PO Q6H PRN pain #60 tabs 02/10/22 ibuprofen 600 mg tablet 600 mg PO TID PRN pain #60 tabs 02/10/22 quetiapine 25 mg tablet (Seroquel) 25 mg PO HS 03/26/22 Current Visit Medications: Current Medications Generic Name Dose Route Start Last Admin Trade Name Freq PRN Reason Stop Dose Admin Acetaminophen 1,000 mg 06/14/22 06:00 Acetaminophen 500 Mg Tab PO Q4H PRN PRN Miscellaneous Medication 0 ml 06/14/22 06:00 06/14/22 11:05 Tropicam./Phenyleph. 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, T43.505A BRCA2 gene mutation positive Z15.01, Z15.09 Prediabetes R73.03 Family history of colon cancer Z80.0 Major depression F32.9 Suicide ideation R45.851 Bipolar disorder, manic F31.10 Prostate cancer C61 Hyperlipidemia E78.5 Hypothyroidism E03.9 Memory loss R41.3 Drug-induced tremor G25.1 Discharge planning issues Z02.9 Medical History Medical History Psoriasis Surgical History Surgical History History of colonoscopy (~07/2013) S/P appendectomy S/P cholecystectomy S/P tonsillectomy Tobacco Smoking/Tobacco Use Status: Never Alcohol Alcohol Intake: current Alcohol intake frequency: holidays/special occasions only Substance Use Substance use: Never Substance use type: does not use Vital Signs and Lab Results Vital Signs Most Recent Vital Signs in EMR: Most Recent Vital Signs Temp Pulse Resp BP Pulse Ox 36.4 C L 86 18 136/84 97 06/14/22 10:43 06/14/22 10:43 06/14/22 10:43 06/14/22 10:43 06/14/22 10:43 Lab Results Blood Type / Crossmatch: No Data to Display Complete Blood Count: No Data to Display Complete Metabolic Panel: No Data to Display Liver Function Panel: No Data to Display Coagulation Panel: No Data to Display Cardiac Panel: No Data to Display Arterial Blood Gas: No Data to Display Venous Blood Gas: No Data to Display Pancreas Panel: No Data to Display Thyroid Panel: No Data to Display Infectious Disease: No Data to Display Blood Cultures: No Data to Display Toxicology Panel: No Data to Display Imaging and Studies Imaging and Studies Study information below may be from another EMR and interpreted by another provider. Please see original notes in EMR for more complete details. EKG Summary: 10/22/2019: Conclusion Atrial flutter with predominant 3:1 AV block...A-rate 245, multiple Ps Inferior infarct, old...Q >35mS, II III aVF Anesthesia Assessment and Plan Anesthesia History Personal History: No History of Anesthesia Complications Family History: No Family History of Anesthesia Complications Exercise Tolerance Exercise Tolerance: Metabolic Equivalents>4 Pertinent Negatives Pertinent Negatives: No Major Cardiovascular Symptoms or Complaints and No Major Pulmonary Symptoms or Complaints Cardiac & Pulmonary Exam Cardiac Exam: Normal S1/S2 Heart Sounds Pulmonary Exam: Clear Bilateral Breath Sounds Implantable Cardiac Device Does patient have a Pacemaker or an ICD?: No Airway Exam Known Difficult Airway: No Mallampati Class: 3 Mouth Opening: Normal (> 3cm) Thyromental Distance: Greater than 3 cm Neck Range of Motion: Full ROM Neck Circumference: Normal Teeth Condition: Normal Dentition ASA Classification ASA Score: ASA 2 Emergency Case?: No NPO Status NPO Status: NPO Clears >2 hours, Solids >8 hours Anesthesia Plan Resuscitation Status: Full Code Anesthesia Technique: MAC Anesthesia Airway Planned: Natural Airway Monitors Used: Standard Monitors Preoperative Comments:: 71 yo male for cataract removal. Would like MKO.
[2022-06-14 11:13] VITALS: BMI 32.4
--- NOTE | 2022-06-14 11:28 | W.PM.DSUDISC ---
Date of service: 06/14/22 Time of Service: 11:28 Discharge Plan Disposition Patient Disposition: Home Discharge Details Attending Provider: Nirav Treviño Primary Care Provider: Dewayne Mckinley Home Meds and New Rx's Prescriptions: No Action quetiapine [Seroquel] 25 mg tablet 25 mg PO HS lamotrigine 100 mg tablet 100 mg PO BID duloxetine [Cymbalta] 60 mg capsule,delayed release(DR/EC) 30 mg PO BID multivitamin Tablet 1 tab PO DAILY melatonin 5 mg tablet 10 mg PO HS PRN turmeric-turmeric root extract 450-50 mg capsule 1 cap PO DAILY pravastatin 20 mg tablet 40 mg PO DAILY acetaminophen 500 mg tablet 500 mg PO Q6H PRN (Reason: pain) Qty: 60 2RF ibuprofen 600 mg tablet 600 mg PO TID PRN (Reason: pain) Qty: 60 0RF levothyroxine 75 MCG tablet 75 mcg PO DAILY Qty: 4 0RF Discharge Instructions Stand Alone Forms: Post-op Topical Cataract, Mishel Trinh (DSU) Discharge Orders Discharge Orders: Discharge Order (Routine); Ordered 06/14/22 Ordered By: Nirav Treviño DS: Diagnosis Discharge Diagnosis (1) Nuclear age-related cataract, right eye: Status: Resolved (2) Cortical cataract of right eye: Status: Resolved
[2022-06-14] MEDS: Balanced Salt Soln.-PLUS 500 ML BAG (11:39)
[2022-06-14] MEDS: Tetracaine 0.5% 4 ML BTL OD (11:39)
[2022-06-14] MEDS: Lidocaine 1% Pres-Free 5 ML VIAL (11:40)
[2022-06-14] MEDS: Duovisc Viscoelastic System EACH 1 EACH (11:40)
[2022-06-14] MEDS: Povidone-Iodine Ophth 30 ML BTL (11:41)
[2022-06-14] MEDS: Phenylephrine/Lidocaine (15/10) MG/ML 1 ML VIAL (11:41)
[2022-06-14 11:57] VITALS: BP 126/77; PULSE 79; RESP 17; TEMP 36.3; O2SAT 96
--- NOTE | 2022-06-14 12:00 | ROE_ITS ---
Date of service: 06/14/22 Time of Service: 12:00 Operative Note Operative Note DATE OF PROCEDURE: 06/14/22 PRE-OP DIAGNOSIS: Nuclear/cortical cataract, right eye POST-OP DIAGNOSIS: same PROCEDURE: Cataract extraction using phacoemulsification with intraocular lens implant, right eye SURGEON: Nirav Treviño ANESTHESIA TYPE: Local By Surgeon and MAC Refer to Anesthesia Record ESTIMATED BLOOD LOSS: 0 PATHOLOGY: none sent COMPLICATIONS: None Patient was transported to: same day Patient's condition: stable Implants: Ender & Ender Tecnis Eyhance DIB00 Indications: Progressive visual loss due to cataract, right eye Procedure Description: CATARACT SURGERY OPERATIVE REPORT PREOPERATIVE DIAGNOSIS: 1. Nuclear/cortical cataract, right eye POSTOPERATIVE DIAGNOSIS: Same OPERATION: 1. Cataract extraction using phacoemulsification with posterior chamber intraocular lens implant, right eye. IOL: IOL Treatment Technician/Model: Ender & Ender Tecnis Eyhance DIB00 IOL Power: + 14.5 diopters IOL Serial Number: [id number] Optic Diameter: 6.0mm Haptic/Overall Diameter: 13.0mm PHACO INFO: [employer] Vision System with OZil and Active Fluidics Cumulative Dispersed Energy (CDE): 5.80 seconds SURGEON: Nirav Treviño MD, ISAI ANESTHESIA: Monitored [facility] (MAC), with local sub-tenon's anesthetic infiltration COMPLICATIONS: None SPECIMENS: None INDICATIONS FOR PROCEDURE: The patient is a 71-year-old gentleman with history of diminished visual acuity in his right eye secondary to the development of nuclear/cortical cataract. He is significantly symptomatic that he desires cataract surgery and attempt to improve and maximize his vision. The option of cataract surgery was offered to the patient and he wished to proceed. PROCEDURE: The correct surgical eye was identified and marked as the right eye and the pupil was dilated in the preoperative area using mydriatics and cycloplegics. The dilated pupil size was 7.0 mm. Oral sedation was administered in the form of an Imprimis MKO Melt (midazolam 3mg/ketamine 25mg/ondansetron 2mg). The patient was brought to the operating room where cardiopulmonary monitoring was instituted and surgical time-out was performed, confirming the correct operative eye and IOL power. Topical anesthesia was administered and ophthalmic povidone-iodine 5% was instilled into the conjunctival fornices. Lidocaine gel was applied to the cornea and the lalo-ocular area was prepped with Betadine 10% solution and draped in the usual sterile fashion for intraocular surgery, including an aperture drape. A Tegaderm transparent film dressing was cut in half and used to cover the lashes and lid margins. Care was taken to sequester the lashes and lid margins under the Tegaderm dressing. A lid speculum was placed between the lids of the operative eye and the Chris [employer] Revalia operating microscope was maneuvered into position. Cruz scissors were then used to make a conjunctival buttonhole approximately 6mm posterior to the limbus in the inferonasal quadrant. Blunt dissection was carried out to expose bare sclera, and a blunt-tipped sub-tenon?s anesthesia cannula was introduced and passed posteriorly along the globe where non- preserved plain lidocaine was injected into posterior sub-Tenon?s space. A sideport knife was used to make a paracentesis port inferotemporally. Intraocular phenylephrine/lidocaine was injected into the anterior chamber. The anterior chamber was filled with viscoelastic. A keratome knife was used to construct a 2-plane near-clear corneal tunnel extending 2.0mm into clear cornea superiortemporally. A flap was raised on the anterior capsule and capsulorhexis forceps were used to complete a continuous curvilinear capsulorhexis of 5.0 mm. Balanced salt solution was then used to perform cortical cleaving hydrodi ssection and nuclear hydrodelineation until the lens could be freely rotated within the capsular bag. The lens nucleus was then disassembled and removed within the capsular bag and iris plane using phacoemulsification. Residual cortical material was removed using the I/A handpiece. The posterior capsule was carefully polished to remove as much residual lens epithelial cells as safely possible. The capsular bag was then inflated and the anterior chamber deepened with viscoelastic. The lens implant described above was inserted into the capsular bag using the Ender and Sandra Simplicity pre-loaded injector. A Kuglen hook was used to dial the IOL into position. Residual viscoelastic was then removed first from posterior to the IOL, then from the anterior chamber using the I/A handpiece. The lens implant was noted to center nicely within the capsular bag. The incisions were stromally hydrated, and the anterior chamber was reformed using BSS. Then 0.5cc of moxifloxacin 1.0mg/ml were injected into the capsular bag and anterior chamber. The incisions were checked with a Weck spear and found to be secure. Several drops of ophthalmic povidone-iodine 5% were then applied to the eye followed by two drops of Imprimis combination prednisolone/moxifloxacin/nepafenac solution. The drapes were removed and a clear plastic protective eye shield was placed over the eye. The patient was then returned to Same Day Surgery in stable condition.
--- NOTE | 2022-06-14 12:25 | W.ANESPOSTOP ---
Postoperative Evaluation Date, Time and Location Date Performed: 06/14/22 Time Performed: 12:05 Patient Location: Day Surgery Unit Vital Signs Most Recent Imported Vital Signs: Most Recent Vital Signs Temp Pulse Resp BP Pulse Ox 36.3 C L 79 17 126/77 96 06/14/22 11:57 06/14/22 11:57 06/14/22 11:57 06/14/22 11:57 06/14/22 11:57 Pain Score Most Recent Pain Score: Most Recent Pain Score Pain Level 0 06/14/22 11:57 Assessment Mental Status: Awake (Alert & Oriented to Patient Baseline) Airway and Respiratory Function: Patent airway with normal (patient baseline) respiratory exam Cardiovascular Function: Hemodynamically Stable Hydration Status: Adequately Hydrated Nausea & Vomiting: No Nausea or Vomiting Pain: Pt. Denies Any Pain Peripheral Nerve Block: Patient did not receive a nerve block
[2022-06-14 12:30] VITALS: BP 118/71; PULSE 79; RESP 17; TEMP 36.6; O2SAT 97
== END 2022-06-14 12:50 | disposition home or self-care (01) ==
LOC: SUR 10:16
PROVIDERS: PCP Family Medicine; Visit Provider Ophthalmology
PROC: (CPT 66984; principal; 2022-06-14 13:30)
DX: H25.11 Age-related nuclear cataract, right eye (principal); H26.9 Unspecified cataract
CPT/HCPCS: 66984; V2632

== ENCOUNTER 2022-06-28 08:50 | Day surgery (SDC) | payer MEDICARE, OTHER, SELFPAY ==
--- NOTE | 2022-06-28 06:48 | W.ANESPRE ---
General Info Date of Service Date Performed: 06/28/22 Height: 5 ft 3 in Weight: 83.1 kg Body Mass Index (BMI): 32.4 Surgical Procedure: Operation Date: 06/28/22 11:40 Proposed Procedure Side Surgeon p Cataract Extraction with IOL Implant Left Nirav Treviño MD Meds Allergies and Home Medications Allergies Allergy/AdvReac Type Severity Reaction Status Date / Time No Known Allergies Allergy Verified 06/28/22 09:07 Home Medication Medication Instructions Recorded levothyroxine 75 mcg tablet 75 mcg PO DAILY #4 tabs 08/04/17 pravastatin 20 mg tablet 40 mg PO DAILY 01/25/19 lamotrigine 100 mg tablet 100 mg PO BID 07/29/20 duloxetine 60 mg capsule,delayed 30 mg PO BID 09/15/21 release (Cymbalta) melatonin 5 mg tablet 10 mg PO HS PRN 02/02/22 multivitamin 1 tab PO DAILY 02/02/22 turmeric 450 mg-turmeric root 1 cap PO DAILY 02/02/22 extract 50 mg capsule acetaminophen 500 mg tablet 500 mg PO Q6H PRN pain #60 tabs 02/10/22 ibuprofen 600 mg tablet 600 mg PO TID PRN pain #60 tabs 02/10/22 quetiapine 25 mg tablet (Seroquel) 25 mg PO HS 03/26/22 Current Visit Medications: Current Medications Generic Name Dose Route Start Last Admin Trade Name Freq PRN Reason Stop Dose Admin Acetaminophen 1,000 mg 06/28/22 06:00 Acetaminophen 500 Mg Tab PO Q4H PRN PRN Miscellaneous Medication 0 ml 06/28/22 06:00 Tropicam./Phenyleph. (1/2.5%) 5 Ml Btl OS DIRECTED [facility] Miscellaneous Medication 0 ml 06/28/22 06:00 Prednisolone 1%, Moxifloxacin 0.5%, Nepafenac 0.1% 5ml Btl OS DIRECTED SUZANNE Tetracaine HCl 0 ml 06/28/22 06:00 Tetracaine 0.5% 4 Ml Btl OS DIRECTED [facility] PFSH Active Problems Active Problems: Problem Status Onset Code Cortical age-related cataract, left eye H25.012 Nuclear age-related cataract, left eye H25.12 Cortical cataract of right eye H26.9 Nuclear age-related cataract, right eye H25.11 Right lateral epicondylitis M77.11 Left carpal tunnel syndrome G56.02 Intra-articular fracture of distal end of radius with volar angulation S52.579A Fracture of left distal radius S52.502A 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, T43.505A BRCA2 gene mutation positive Z15.01, Z15.09 Prediabetes R73.03 Family history of colon cancer Z80.0 Major depression F32.9 Suicide ideation R45.851 Bipolar disorder, manic F31.10 Prostate cancer C61 Hyperlipidemia E78.5 Hypothyroidism E03.9 Memory loss R41.3 Drug-induced tremor G25.1 Discharge planning issues Z02.9 Medical History Medical History Psoriasis Surgical History Surgical History History of colonoscopy (~07/2013) S/P appendectomy S/P cholecystectomy S/P tonsillectomy Tobacco Smoking/Tobacco Use Status: Never Alcohol Alcohol Intake: current Alcohol intake frequency: holidays/special occasions only Substance Use Substance use: Never Substance use type: does not use Vital Signs and Lab Results Vital Signs Most Recent Vital Signs in EMR: Temp Pulse Resp BP Pulse Ox 36.5 C 80 18 140/95 H 98 06/28/22 09:12 06/28/22 09:12 06/28/22 09:12 06/28/22 09:12 06/28/22 09:12 Lab Results Blood Type / Crossmatch: No Data to Display Complete Blood Count: No Data to Display Complete Metabolic Panel: No Data to Display Liver Function Panel: No Data to Display Coagulation Panel: No Data to Display Cardiac Panel: No Data to Display Arterial Blood Gas: No Data to Display Venous Blood Gas: No Data to Display Pancreas Panel: No Data to Display Thyroid Panel: No Data to Display Infectious Disease: No Data to Display Blood Cultures: No Data to Display Toxicology Panel: No Data to Display Imaging and Studies Imaging and Studies Study information below may be from another EMR and interpreted by another provider. Please see original notes in EMR for more complete details. EKG Summary: 10/22/2019: Conclusion Atrial flutter with predominant 3:1 AV block...A-rate 245, multiple Ps Inferior infarct, old...Q >35mS, II III aVF Anesthesia Assessment and Plan Anesthesia History Personal History: No History of Anesthesia Complications Family History: No Family History of Anesthesia Complications Exercise Tolerance Exercise Tolerance: Metabolic Equivalents>4 Cardiac & Pulmonary Exam Cardiac Exam: Normal S1/S2 Heart Sounds Pulmonary Exam: Clear Bilateral Breath Sounds Implantable Cardiac Device Does patient have a Pacemaker or an ICD?: No Airway Exam Known Difficult Airway: No Mallampati Class: 3 Mouth Opening: Normal (> 3cm) Thyromental Distance: Greater than 3 cm Neck Range of Motion: Full ROM Neck Circumference: Normal Teeth Condition: Normal Dentition ASA Classification ASA Score: ASA 2 Emergency Case?: No NPO Status NPO Status: NPO Clears >2 hours, Solids >8 hours Anesthesia Plan Resuscitation Status: Full Code Anesthesia Technique: MAC Anesthesia Airway Planned: Natural Airway Monitors Used: Standard Monitors Preoperative Comments:: 71 yo male for repeat cataract removal. had MKO previously. no health history change
[2022-06-28 08:53] VITALS: BMI 32.4
[2022-06-28] MEDS: Tropicam./Phenyleph. (1/2.5%) 5 ML BTL OS ×3 (09:11→09:31)
[2022-06-28 09:12] VITALS: BP 140/95; PULSE 80; RESP 18; TEMP 36.5; O2SAT 98
[2022-06-28] MEDS: Tetracaine 0.5% 4 ML BTL OS (10:46)
[2022-06-28] MEDS: Balanced Salt Soln.-PLUS 500 ML BAG (10:47)
[2022-06-28] MEDS: Duovisc Viscoelastic System EACH 1 EACH (10:47)
[2022-06-28] MEDS: Phenylephrine/Lidocaine (15/10) MG/ML 1 ML VIAL (10:48)
[2022-06-28] MEDS: Lidocaine 1% Pres-Free 5 ML VIAL (10:48)
[2022-06-28] MEDS: Povidone-Iodine Ophth 30 ML BTL (10:49)
[2022-06-28 11:05] VITALS: BP 140/95; PULSE 80; RESP 18; TEMP 36.5; O2SAT 98
--- NOTE | 2022-06-28 11:06 | W.PM.DSUDISC ---
Date of service: 06/28/22 Time of Service: 11:06 Discharge Plan Disposition Patient Disposition: Home Discharge Details Attending Provider: Nirav Treviño Primary Care Provider: Dewayne Mckinley Home Meds and New Rx's Prescriptions: No Action quetiapine [Seroquel] 25 mg tablet 25 mg PO HS lamotrigine 100 mg tablet 100 mg PO BID duloxetine [Cymbalta] 60 mg capsule,delayed release(DR/EC) 30 mg PO BID multivitamin Tablet 1 tab PO DAILY melatonin 5 mg tablet 10 mg PO HS PRN turmeric-turmeric root extract 450-50 mg capsule 1 cap PO DAILY pravastatin 20 mg tablet 40 mg PO DAILY acetaminophen 500 mg tablet 500 mg PO Q6H PRN (Reason: pain) Qty: 60 2RF ibuprofen 600 mg tablet 600 mg PO TID PRN (Reason: pain) Qty: 60 0RF levothyroxine 75 MCG tablet 75 mcg PO DAILY Qty: 4 0RF Discharge Instructions Stand Alone Forms: Post-op Topical Cataract, Mishel Trinh (DSU) Discharge Orders Discharge Orders: Discharge Order (Routine); Ordered 06/28/22 Ordered By: Nirav Treviño DS: Diagnosis Discharge Diagnosis (1) Cortical age-related cataract, left eye: Status: Resolved (2) Nuclear age-related cataract, left eye: Status: Resolved
--- NOTE | 2022-06-28 11:09 | W.PM.OP ---
Date of service: 06/28/22 Time of Service: 11:09 Operative Note Operative Note DATE OF PROCEDURE: 06/28/22 PRE-OP DIAGNOSIS: Nuclear/cortical cataract, left eye POST-OP DIAGNOSIS: same PROCEDURE: Cataract extraction using phacoemulsification with intraocular lens implant, left eye SURGEON: Nirav Treviño ANESTHESIA TYPE: Local By Surgeon and MAC Refer to Anesthesia Record PATHOLOGY: none sent COMPLICATIONS: None Patient was transported to: same day Patient's condition: stable Implants: Ender and Ender Tecnis Eyhance DIB00 Indications: Progressive decreased vision due to cataract, left eye Procedure Description: CATARACT SURGERY OPERATIVE REPORT PREOPERATIVE DIAGNOSIS: 1. Nuclear/cortical cataract, left eye POSTOPERATIVE DIAGNOSIS: Same OPERATION: 1. Cataract extraction using phacoemulsification with posterior chamber intraocular lens implant, left eye. IOL: IOL Movement Assembly Final Inspector/Model: Ender [employer] Ender Tecnis Eyhance DIB00 IOL Power: + 14.0 diopters IOL Serial Number: [id number] Optic Diameter: 6.0 mm Haptic/Overall Diameter: 13.0 mm PHACO INFO: [employer] Vision System with OZil and Active Fluidics Cumulative Dispersed Energy (CDE): 4.23 seconds SURGEON: Nirav Treviño MD, IASI ANESTHESIA: Monitored A [facility] (MAC), with local sub-tenon's anesthetic infiltration COMPLICATIONS: None SPECIMENS: None INDICATIONS FOR PROCEDURE: Patient is a 71-year-old male with history of diminished visual acuity in both eyes secondary to the development of bilateral nuclear/cortical cataract. He is significantly symptomatic that he desires cataract surgery and attempt to improve and maximize his vision. He has already undergone cataract surgery in the right eye and is doing well postoperatively. See office chart for detailed information. PROCEDURE: The correct surgical eye was identified and marked as the left eye and the pupil was dilated in the preoperative area using mydriatics and cycloplegics. The dilated pupil size was 7.0 mm. Oral sedation was administered in the form of an Imprimis MKO Melt (midazolam 3mg/ketamine 25mg/ondansetron 2mg). The patient was brought to the operating room where cardiopulmonary monitoring was instituted and surgical time-out was performed, confirming the correct operative eye and IOL power. Topical anesthesia was administered and ophthalmic povidone-iodine 5% was instilled into the conjunctival fornices. Lidocaine gel was applied to the cornea and the lalo-ocular area was prepped with Betadine 10% solution and draped in the usual sterile fashion for intraocular surgery, including an aperture drape. A Tegaderm transparent film dressing was cut in half and used to cover the lashes and lid margins. Care was taken to sequester the lashes and lid margins under the Tegaderm dressing. A lid speculum was placed between the lids of the operative eye and the [employer] operating microscope was maneuvered into position. Cruz scissors were then used to make a conjunctival buttonhole approximately 6mm posterior to the limbus in the inferonasal quadrant. Blunt dissection was carried out to expose bare sclera, and a blunt-tipped sub-tenon?s anesthesia cannula was introduced and passed posteriorly along the globe where non-preserved plain lidocaine was injected into posterior sub-Tenon?s space. A sideport knife was used to make a paracentesis port superiorly/superiortemporally. Intraocular phenylephrine/lidocaine was injected int the anterior chamber.. The anterior chamber was filled with viscoelastic. A keratome knife was used to construct a 2-plane near-clear corneal tunnel extending 2.0mm into clear cornea temporally. A flap was raised on the anterior capsule and capsulorhexis forceps were used to complete a continuous curvilinear capsulorhexis of 5.5 mm. Balanced salt solution was then used to perform cortical cleaving hydrodissection and nuclear hydrodelineation until the lens could be freely rotated within the capsular bag. The lens nucleus was then disassembled and removed within the capsular bag and iris plane using phacoemulsification. Residual cortical material was removed using the 45-degree angled silicone I/A tip with 0.3mm port. The posterior capsule was carefully polished to remove as much residual lens epithelial cells as safely possible. The capsular bag was then inflated and the anterior chamber deepened with viscoelastic. The lens implant described above was inserted into the capsular bag using the Ender and Ender Simplicity pre-loaded injector. . A Kuglen hook was used to dial the IOL into position. Residual viscoelastic was then removed first from posterior to the IOL, then from the anterior chamber using the I/A handpiece. The lens implant was noted to center nicely within the capsular bag. The incisions were stromally hydrated, and the anterior chamber was reformed using BSS. Then 0.5cc of moxifloxacin 1.0mg/ml were injected into the capsular bag and anterior chamber. The incisions were checked with a Weck spear and found to be secure. Several drops of ophthalmic povidone-iodine 5% were then applied to the eye followed by two drops of Imprimis combination prednisolone/moxifloxacin/nepafenac solution. The drapes were removed and a clear plastic protective eye shield was placed over the eye. The patient was then returned to Same Day Surgery in stable condition.
--- NOTE | 2022-06-28 11:22 | W.ANESPOSTOP ---
Postoperative Evaluation Date, Time and Location Date Performed: 06/28/22 Time Performed: 11:22 Patient Location: Day Surgery Unit Vital Signs Most Recent Imported Vital Signs: Most Recent Vital Signs Temp Pulse Resp BP Pulse Ox 36.5 C 80 18 140/95 H 98 06/28/22 11:05 06/28/22 11:05 06/28/22 11:05 06/28/22 11:05 06/28/22 11:05 Pain Score Most Recent Pain Score: Most Recent Pain Score Pain Level 0 06/28/22 11:05 Assessment Mental Status: Awake (Alert & Oriented to Patient Baseline) Airway and Respiratory Function: Patent airway with normal (patient baseline) respiratory exam Cardiovascular Function: Hemodynamically Stable Hydration Status: Adequately Hydrated Nausea & Vomiting: No Nausea or Vomiting Pain: Pt. Denies Any Pain Peripheral Nerve Block: Patient did not receive a nerve block
[2022-06-28 11:30] VITALS: BP 132/78; PULSE 83; RESP 16; TEMP 36.8; O2SAT 98
== END 2022-06-28 11:41 | disposition home or self-care (01) ==
LOC: SUR 08:50
PROVIDERS: PCP Family Medicine; Visit Provider Ophthalmology
PROC: (CPT 66984; principal; 2022-06-28 11:30)
DX: H25.012 Cortical age-related cataract, left eye (principal); H25.12 Age-related nuclear cataract, left eye; Z98.41 Cataract extraction status, right eye
CPT/HCPCS: 66984; V2632

== ENCOUNTER 2022-07-01 02:06 | Outpatient (CLI) | payer MEDICARE, OTHER, SELFPAY ==
[2022-07-01 12:05] LABS: Abs Immature Grans 0.02 10^3/uL (0.0-0.06); Absolute Basophil Count 0.04 10^3/uL (0.0-0.2); Absolute Eosinophil Count 0.21 10^3/uL (0.0-0.7); Absolute Lymphocyte Count 2.69 10^3/uL (1.2-3.4); Absolute Monocyte Count 0.81 10^3/uL (0.1-0.8); Absolute Neutrophil Count 3.57 10^3/uL (1.2-6.7); Basophils % 0.5; Eosinophils % 2.9; HCT 39.9 % (40.0-50.0); HGB 13.6 g/dL (13.5-17.5); Immature Grans % 0.3; Lymphocytes % 36.6; MCH 31.1 pg (27.0-33.0); MCHC 34.1 % (32.0-36.0); MCV 91 fL (80-95); MPV 8.7 fL (8.0-11.0); Neutrophils % 48.7; Platelet Count 312 10^3/uL (130-400); RBC 4.37 10^6/uL (4.36-5.78); RDW-SD 43.7 fL; WBC 7.34 10^3/uL (4.4-10.8)
[2022-07-01 12:19] LABS: ALT 34 U/L (16-63); AST 26 U/L (15-37); Alkaline Phosphatase 71 U/L (46-116); Anion Gap 6.1 mmol/L (3-11); BUN 26 mg/dL (7-18); Bilirubin, Total 0.4 mg/dL (0.2-1.0); CO2 29.9 mmol/L (21.0-32.0); CREATININE 1.1 mg/dL (0.70-1.30); Calcium 9.3 mg/dL (8.5-10.1); Chloride 103 mmol/L (98-107); Estimated GFR 70.88 (mL/min/1.73m2); Glucose 109 mg/dL (74-106); Potassium 4.3 mmol/L (3.5-5.1); Sodium 139 mmol/L (136-145); Total Protein 8.2 g/dL (6.4-8.2)
[2022-07-03 10:49] LABS: PSA, Ultrasensitive 1.1 ng/mL (<= 6.5)
[2022-07-06 14:42] LABS: Testosterone, Total 46 ng/dL (240-950)
== END 2022-07-01 02:07 | disposition home or self-care (01) ==
LOC: LBO 02:06
PROVIDERS: PCP Family Medicine; Visit Provider Nurse Practitioner Family
DX: C61 Malignant neoplasm of prostate (principal)
CPT/HCPCS: 36415; 80053; 84153; 84403; 85025

== ENCOUNTER → 2022-09-14 14:07 | Outpatient (BNVA) | payer MEDICARE, OTHER, SELFPAY | PROVIDERS: PCP Family Medicine; Visit Provider Urology | DX: C61 Malignant neoplasm of prostate (principal) | CPT/HCPCS: 99213 ==

== ENCOUNTER 2022-10-01 01:19 | Outpatient (CLI) | payer MEDICARE, OTHER, SELFPAY ==
[2022-10-01 11:12] LABS: Abs Immature Grans 0.03 10^3/uL (0.0-0.06); Absolute Basophil Count 0.05 10^3/uL (0.0-0.2); Absolute Eosinophil Count 0.26 10^3/uL (0.0-0.7); Absolute Lymphocyte Count 2.66 10^3/uL (1.2-3.4); Absolute Monocyte Count 0.81 10^3/uL (0.1-0.8); Absolute Neutrophil Count 5.18 10^3/uL (1.2-6.7); Basophils % 0.6; Eosinophils % 2.9; HCT 38.9 % (40.0-50.0); HGB 13.2 g/dL (13.5-17.5); Immature Grans % 0.3; Lymphocytes % 29.6; MCH 30.7 pg (27.0-33.0); MCHC 33.9 % (32.0-36.0); MCV 91 fL (80-95); MPV 8.7 fL (8.0-11.0); Neutrophils % 57.6; Platelet Count 330 10^3/uL (130-400); RDW 13.3 % (11.8-14.1); RDW-SD 43.9 fL; WBC 8.99 10^3/uL (4.4-10.8)
[2022-10-01 11:33] LABS: ALT 34 U/L (16-63); AST 26 U/L (15-37); Albumin 4.2 g/dL (3.4-5.0); Alkaline Phosphatase 76 U/L (46-116); BUN 26 mg/dL (7-18); Bilirubin, Total 0.3 mg/dL (0.2-1.0); CREATININE 1.2 mg/dL (0.70-1.30); Calcium 9.2 mg/dL (8.5-10.1); Chloride 104 mmol/L (98-107); Estimated GFR 63.46 (mL/min/1.73m2); Glucose 99 mg/dL (74-106); Potassium 4.4 mmol/L (3.5-5.1); Sodium 139 mmol/L (136-145); Total Protein 8.2 g/dL (6.4-8.2)
[2022-10-04 11:33] LABS: PSA, Ultrasensitive 1.7 ng/mL (<= 6.5)
[2022-10-06 09:33] LABS: Testosterone, Total 71 ng/dL (240-950)
== END 2022-10-01 01:20 | disposition home or self-care (01) ==
LOC: LBO 01:19
PROVIDERS: PCP Family Medicine; Visit Provider Nurse Practitioner Family
DX: C61 Malignant neoplasm of prostate (principal)
CPT/HCPCS: 36415; 80053; 84153; 84403; 85025

== ENCOUNTER 2023-01-06 03:14 | Outpatient (CLI) | payer MEDICARE, OTHER, SELFPAY ==
[2023-01-08 12:13] LABS: PSA, Ultrasensitive 1.4 ng/mL (<= 6.5)
== END 2023-01-06 03:15 | disposition home or self-care (01) ==
PROVIDERS: PCP Family Medicine; Visit Provider Surgery
DX: R97.20 Elevated prostate specific antigen [PSA] (principal)
CPT/HCPCS: 36415; 84153

== ENCOUNTER 2023-02-15 14:34 | Outpatient (CLI) | payer MEDICARE, OTHER, SELFPAY ==
[2023-02-15 14:06] LABS: Abs Immature Grans 0.03 10^3/uL (0.0-0.06); Absolute Basophil Count 0.04 10^3/uL (0.0-0.2); Absolute Eosinophil Count 0.26 10^3/uL (0.0-0.7); Absolute Lymphocyte Count 2.82 10^3/uL (1.2-3.4); Absolute Monocyte Count 0.71 10^3/uL (0.1-0.8); Absolute Neutrophil Count 4.08 10^3/uL (1.2-6.7); Basophils % 0.5; Eosinophils % 3.3; HCT 39.1 % (40.0-50.0); HGB 13.1 g/dL (13.5-17.5); Immature Grans % 0.4; Lymphocytes % 35.5; MCH 30.8 pg (27.0-33.0); MCHC 33.5 % (32.0-36.0); MCV 92 fL (80-95); MPV 8.3 fL (8.0-11.0); Monocytes % 8.9; Neutrophils % 51.4; Platelet Count 341 10^3/uL (130-400); RBC 4.25 10^6/uL (4.36-5.78); RDW 12.5 % (11.8-14.1); RDW-SD 42.5 fL; WBC 7.94 10^3/uL (4.4-10.8)
[2023-02-15 14:21] LABS: ALT 29 U/L (16-63); AST 19 U/L (15-37); Albumin 3.8 g/dL (3.4-5.0); Alkaline Phosphatase 76 U/L (46-116); BUN 31 mg/dL (7-18); Bilirubin, Total 0.3 mg/dL (0.2-1.0); CREATININE 1.1 mg/dL (0.70-1.30); Calcium 9.3 mg/dL (8.5-10.1); Chloride 102 mmol/L (98-107); Estimated GFR 70.44 (mL/min/1.73m2); Glucose 133 mg/dL (74-106); Potassium 3.9 mmol/L (3.5-5.1); Sodium 141 mmol/L (136-145); Total Protein 8.4 g/dL (6.4-8.2)
--- OUTSIDE RECORDS SUMMARY | 2023-02-15 14:36 | XMS_ITS | Patient Health Record ---
Author Name Unknown Organization [facility] Address [address] [place] [id number] Care Team Providers Care Funeral Home Assistant Name Role Phone Shakila Hicks Primary Care Provider ALLERGIES No Known Allergies REASON FOR REFERRAL No Information MEDICATIONS Medication SIG (Take, Route, Frequency, Duration) Notes Start Date End Date Status Ibuprofen 200 MG 1 tablet with food or milk as needed Orally Three times a day Active Multivitamin - 1 tablet Orally Once a day for 30 day(s) Active DULoxetine HCl 40 MG 1 capsule Orally Once a day for 30 days 02/08/2023 Active Levothyroxine Sodium 75 MCG 1 tablet in the morning on an empty stomach Orally Once a day for 30 day(s) Active Turmeric 450 MG 2 capsules Orally Once a day Unknown PRAVASTATIN 40 40 MG 1 tablet Orally Once a day for 90 day(s) Active VITAMIN D Unknown Vitamin B Complex 100 Unknown SEROquel 25 MG 1 -2 tablet at bedtime Orally Once a day for 5 days decrease in dose Active Vitamin E 400 UNIT 1 capsule Orally Once a day for 30 day(s) Unknown LaMICtal 100 MG 1 tablet Orally Twice a day for 90 days stop if rash occurs Active IMMUNIZATIONS Vaccine Route Administration Date Status Comme nts COVID-19 Moderna 07449 Unknown 05/02/2020 Administered COVID-19 Moderna 00860 Unknown 05/30/2020 Administered COVID-19 Moderna 63653 Unknown 01/07/2021 Administered COVID-19 Moderna 43964 Unknown 06/23/2021 Administered Hepatitis A Unknown 01/25/2011 Administered Influenza Offsite [facility] Purch ased Vaccine 91559 Unknown 12/02/2020 Administered Pneumococcal Unknown 05/24/2014 Administered Prevnar PCV 13 [facility] 73324 Unknown 06/19/2015 Administer ed Td Unknown 07/26/2017 Administered TDAP Unknown 01/25/2007 Administered Yellow Fever Unknown 01/25/2011 Administered Zostavax [facility] 10117 Unknown 09/21/2011 Administered SOCIAL HISTORY Tobacco Use: Social History Observation Description Date Details (start date - stop date) Former Smoker NA - NA Sex Assigned At : Social History Observation Description Sex Assigned At Unknown SMOKING STATUS: Question Answer Notes Are you a: Former smoker Are you a: Former smoker PROBLEMS Problem Type ICD Code Onset Dates Problem Status W/U Status Risk SNOMED Code Notes Problem 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) Active confirmed Breast cance r genetic marker of susceptibility positive (224424298) Problem Obesity (E66.9) Active confirmed Obesit y (369877927) Problem Hypothyroidism (E03.9) Active confirmed Hypothyroidism (05099177) Problem Bipolar disorder, current episode manic without psychotic features, moderate (F31.12) Active confirmed Bipolar affecti ve disorder, currently manic, moderate (381812746) Problem Insomnia (G47.00) Active confirmed Insomnia (349987294) Problem Psoriasis (L40.9) Active confirmed Psoriasis (5853081) Problem Prostate cancer (C61) Active confirmed Prostate cancer (357140766) Problem Bipolar 2 disorder (F31.81) Active confirmed Bipolar 2 disorder (60854374) hypomanic episode Problem Marital problems (Z63.0) Active confirmed Marital problem s (43107179) Problem Tardive dyskinesia (G24.01) Active confirmed Tardive dyskinesia (239855439) Problem HLD (hyperlipidemia) (E78.5) Active confirmed Hyperlipidaemia (55983056) Problem Prediabetes (R73.03) Active confirmed Prediabetes (487512901) VITAL SIGNS Heart Rate 91 BPM 12/07/2022 Temperature 97.0 degrees Fahrenheit 12/07/2022 Oximetry 97 % 12/07/2022 Blood pressure diastolic 80 mmHg 02/08/2023 Height 63 in 02/08/2023 Blood pressure systolic 142 mmHg 02/08/2023 Weight 181.3 lbs 12/07/2022 BMI 32.11 kg/m2 12/07/2022 Encounters Encounter Location Date Provider Diagnosis [facility] [address] [place], [place] [id number] 04/20/2022 Jhaveri Brodzinski [address], [place] [id number] 07/05/2022 Jhaveri Brodzinski [address], [place] [id number] 09/28/2022 Jhaveri Brodzinski [address], [place] [id number] 09/30/2022 Jhaveri Brodzinski Bipolar 2 disorder F31.[address], [place] [id number] 02/25/2022 Jhaveri Brodzinski Bipolar 2 disorder F31.[address], [place] [id number] 03/11/2022 Jhaveri Brodzinski Bipolar 2 disorder F31.[address], [place] [id number] 03/29/2022 Jhaveri Brodzinski Bipolar 2 disorder F31.[address], [place] [id number] 04/29/2022 Jhaveri Brodzinski Bipolar 2 disorder F31.[address], [place] [id number] 05/24/2022 Jhaveri Brodzinski Bipolar 2 disorder F31.[address], [place] [id number] 06/15/2022 Jhaveri Brodzinski Bipolar 2 disorder F31.[address], [place] [id number] 07/29/2022 Jhaveri Brodzinski Bipolar 2 disorder F31.[address], [place] [id number] 10/05/2022 Jhaveri Brodzinski Bipolar 2 disorder F31.[address], [place] [id number] 12/07/2022 Jhaveri Brodzinski Bipolar 2 disorder F31.[address], [place] [id number] 02/08/2023 Jhaveri Brodzinski Bipolar 2 disorder F31.[address], [place] [id number] 03/09/2022 Jhaveri Brodzinski Bipolar disorder, current episode manic without psychotic features, moderate F31.12 [facility] [address] [facility] [place] [phone] 03/22/2022 Shakila Hicks [facility] [address] [place] [id number] 04/23/2022 Shakila Hicks [facility] [address] [place] [id number] 06/23/2022 Shakila Hicks Bipolar 2 disorder F31.81 [facility] [address] [place] [id number] 09/15/2022 Shakila Hicks Bipolar 2 disorder F31.81 [facility] [address] [place], [place] [id number] 10/05/2022 Shakila Hicks ASSESSMENTS Encounter Date Diagnosis Assessment Notes Treatment Notes Treatment Clinical Notes 02/25/2022 Bipolar 2 disorder (ICD-10 - F31.81) 03/09/2022 Bipolar disorder, current episode manic without psychotic features, moderate (ICD-10 - F31.12) 03/11/2022 Bipolar 2 disorder (ICD-10 - F31.81) hypomanic episode 03/29/2022 Bipolar 2 disorder (ICD-10 - F31.81) hypomanic episode 04/29/2022 Bipolar 2 disorder (ICD-10 - F31.81) hypomanic episode 05/24/2022 Bipolar 2 disorder (ICD-10 - F31.81) hypomanic episode 06/15/2022 Bipolar 2 disorder (ICD-10 - F31.81) hypomanic episode 06/23/2022 Bipolar 2 disorder (ICD-10 - F31.81) hypomanic episode 07/29/2022 Bipolar 2 disorder (ICD-10 - F31.81) hypomanic episode 09/15/2022 Bipolar 2 disorder (ICD-10 - F31.81) hypomanic episode 09/30/2022 Bipolar 2 disorder (ICD-10 - F31.81) hypomanic episode 10/05/2022 Bipolar 2 disorder (ICD-10 - F31.81) hypomanic episode 12/07/2022 Bipolar 2 disorder (ICD-10 - F31.81) hypomanic episode 02/08/2023 Bipolar 2 disorder (ICD-10 - F31.81) hypomanic episode 09/30/2022 Other Documentation assistance provided by micah Colbert for Shakila Hicks [facility] [employer] MICROPALEONTOLOGIST on 09/30/2022. I have read the medical record and scribe entries. I approve the care and treatment provided to this patient as recorded by the scribe 02/25/2022 Other Documentation assistance provided by micah Colebrt for Shakila Hicks [facility] [employer] MICROPALEONTOLOGIST on 02/25/2022. I have read the medical record and scribe entries. I approve the care and treatment provided to this patient as recorded by the scribe. Continue Lamotrigine 200 mg, monitor for rash and stop if rash occursContinue Duloxetine 30 mg twice a day but monitor for maniaContinue walking with his dogKeep scheduled couples counseling session with Nahed individual counseling with Roxana raoaldo Oncology f/u 03/11/2022 Other Documentation assistance provided by micah Colbert for Shakila Hicks [facility] [employer] MICROPALEONTOLOGIST on 03/11/2022. I have read the medical record and scribe entries. I approve the care and treatment provided to this patient as recorded by the scribe. Continue Lamotrigine 200 mg, monitor for rash and stop if rash occursContinue Duloxetine 30 mg twice a day but monitor for maniaContinue Klonopin 0.5 mg PRN for anxiety, use sparinglyAdvised against abrupt cessationMonitor for rebound anxiety when tapering downContinue walking with his dogContinue couples counseling with WilmeraWould benefit from discussing his concerns during these sessionsContinue individual counseling with [facility] Oncology f/uRecommended OTC vitamin D 2000 IU, B complex (B1, 2, 6, 12), Folic acid 15 mg, and Magnesium 300-500 mg for sleepContinue Turmeric supplementConsider Saffron supplement for anxietyContinue PT for wrist fracture 03/29/2022 Other Documentation assistance provided by micah Colbert for Shakila Hicks [facility] [employer] [employer] MICROPALEONTOLOGIST on 03/29/2022. I have read the medical record and scribe entries. I approve the care and treatment provided to this patient as recorded by the scribe. Continue Seroquel 50 mg at bedtime. Monitor for EPSRecommended Lozenges and lemon water for dry mouthContinue Lamotrigine 100 mg BID, monitor for rash and stop if rash occursContinue Duloxetine 30 mg twice a day but monitor for maniaContinue Klonopin 0.5 mg PRN for anxiety, use sparinglyContinue walking with his dogContinue engaging in playing pickle ball, basket ball, swimming, and skiingContinue couples counseling with Jef benefit from discussing his concerns during these sessionsDiscuss writing letter to Evita with Travon benefit from open communication with Elo individual counseling with Roxana weekly 04/29/2022 Other Documentation assistance provided by luz maria Colberting for Shakila Hicks [facility] [employer] MICROPALEONTOLOGIST on 04/29/2022. I have read the medical record and scribe entries. I approve the care and treatment provided to this patient as recorded by the scribe. Continue Seroquel 50 mg at bedtime. Monitor for EPSContinue Lamotrigine 100 mg BID, monitor for rash and stop if rash occursContinue Duloxetine 30 mg twice a dayMonitor for maniaContinue Klonopin 0.5 mg PRN for anxiety, use sparinglyContinue walking with his dog, playing pickle ball, swimming and readingContinue couples counseling with Roxana 05/24/2022 Other Documentation assistance provided by luz maria Colberting for Shakial Hicks [facility] [employer] MICROPALEONTOLOGIST on 05/24/2022. I have read the medical record and scribe entries. I approve the care and treatment provided to this patient as recorded by the scribe. Continue Lamotrigine 100 mg BID, monitor for rash and stop if rash occursContinue Seroquel 50 mg at bedtime. Monitor for EPSContinue Duloxetine 30 mg twice a dayContinue Klonopin 0.5 mg 1/2 tab PRN for anxiety, use sparinglyContinue engaging in all activities he enjoysContinue couples counseling with Roxana 06/15/2022 Other Documentation assistance provided by luz maria Colberting for Shakila Hicks [employer] MICROPALEONTOLOGIST on 06/15/2022. I have read the medical record and scribe entries. I approve the care and treatment provided to this patient as recorded by the scribe Consider decreasing Cymbalta to one per day, but will need to monitor his mood closelyContinue Lamotrigine 100 mg BID, monitor for rash and stop if rash occursContinue Seroquel 50 mg at bedtime. Monitor for abnormal movementsContinue Klonopin 0.5 mg 1/2 tab PRN for anxiety, use sparinglyContinue engaging in all activities he enjoysContinue individual and couples counseling with Roxana Medina f/u with ophthalmology for cataract surgery on other eye Keep scheduled urology/oncology appointment 07/29/2022 Other Documentation assistance provided by micah Colbert for Shakila Hicks [employer] MICROPALEONTOLOGIST on 07/29/2022. I have read the medical record and scribe entries. I approve the care and treatment provided to this patient as recorded by the scribe BZO contract signed todayDecrease Seroquel to 25 mg Monitor for mood dysregulation and monitor sleepContinue Cymbalta 30 mg once dailyContinue Lamotrigine 100 mg BID, monitor for rash and stop if rash occursCan utilizing Klonopin 0.5 mg 1/2 tab PRN for anxiety, use sparinglyContinue engaging in all activities he enjoysContinue individual and couples counseling with Nahed engaging in swimming and walks with his dog 10/05/2022 Other Documentation assistance provided by micah Colbert for Shakila Hicks [employer] MICROPALEONTOLOGIST on 10/05/2022. I have read the medical record and scribe entries. I approve the care and treatment provided to this patient as recorded by the scribe Can utilize Seroquel 25 mg for hypomaniaMonitor for mood dysregulation and monitor sleepContinue Cymbalta 30 mg once dailyContinue Lamotrigine 100 mg BID, monitor for rash and stop if rash occursCan utilizing Klonopin 0.5 mg 1/2 tab PRN for anxiety, use sparinglyContinue engaging in pickle ball and swimmingContinue daily walks with his dogContinue individual and couples counseling with Roxana 12/07/2022 Other Documentation assistance provided by micah Colbert for Shakila Hicks [employer] MICROPALEONTOLOGIST on 12/07/2022. I have read the medical record and scribe entries. I approve the care and treatment provided to this patient as recorded by the scribe. Can utilize Seroquel 25 mg for hypomania Monitor for mood dysregulation and sleep changes Continue Cymbalta 30 mg once daily Continue Lamotrigine 100 mg BID, monitor for rash and stop if rash occurs Can utilizing Klonopin 0.5 mg 1/2 tab PRN for anxiety, use sparingly Continue engaging in pickle ball and swimming Continue daily walks with his dog Continue individual and couples counseling with Roxana Consider purchasing Pro Cap Essential I and Magnesium Intensive care Try smaller dose Melatonin 3-5 mg which works better than 10 mg Recommended to use photo therapy (light box) daily for 20 minutes from November-June for seasonal depression. Consider purchasing Happy light Verilux from [employer]. 02/08/2023 Other Documentation assistance provided by micah Colbert for Shakila Hicks [employer]C MICROPALEONTOLOGIST on 02/08/2023. I have read the medical record and scribe entries. I approve the care and treatment provided to this patient as recorded by the scribe Increase Cymbalta to 40 mg once dailyMonitor for elevated mood and sleep changesCan utilize Seroquel 25 mg for hypomaniaContinue Lamotrigine 100 mg BID, monitor for rash and stop if rash occursCan utilizing Klonopin 0.5 mg 1/2 tab PRN for anxiety, use sparinglyContinue engaging in pickle ballTry submerging his face in cold water to vagal stimulation to help his anxietyContinue daily walks with his dogContinue using light box for SAD daily Ask Oncologist about NAC 600 mg two tablets twice daily for mental fogginess PLAN OF TREATMENT Next Appt Details Provider Name:Shakila landa, 03/22/2023 02:30:00 PM, [address] [place], [place], [phone], Insurance Providers Payer Name Payer Address Payer Phone Subscriber Number Group Number Insured Name Patient Relationship to Insured Coverage Start Date Coverage End Date MEDICARE FQHC [address] [place], [place] [id number] Nain Mckeon Self - patient is the insured [employer] MEDICARE SUPPLEMENT [address] [place] [phone] [id number] Nain Mckeon Self - patient is the insured MEDICAL (GENERAL) HISTORY Medical History History ICD Code Bipolar 2 Disorder Hypothyroidism 2020 CPE Tardive Dyskinesia, neuroleptic induced Insomnia Hyperlipidemia Psoriasis Obesity Part Medications, Klonopin, Sertraline, Cymbalta, Remeron, Tricylics, Olanzapine, Abilify, Vraylar, Rexulti, Geodon, Pisek, Risperdal Cancer- Prostate BRCA 2 Gene Mutation po sitive Surgical History Surgery Date(Month/Year) Radical Prostatectomy Hospitalization History Reason Date(Month/Year) Depression- [place] 2019 [place]- [facility] [facility] 2016 Depression- [facility] 2003
== END 2023-02-15 14:35 | disposition home or self-care (01) ==
LOC: LBO 14:34
PROVIDERS: PCP Family Medicine; Visit Provider Nurse Practitioner
DX: C61 Malignant neoplasm of prostate (principal); C77.5 Secondary and unspecified malignant neoplasm of intrapelvic lymph nodes
CPT/HCPCS: 36415; 80053; 85025

== ENCOUNTER 2023-04-01 17:48 | Emergency (ER) | payer MEDICARE, OTHER, SELFPAY ==
[2023-04-01] VITALS (35 sets, daily range): BP systolic 136–233; BP diastolic 69–194; PULSE 86–128; RESP 17; TEMP 36.2; O2SAT 90–100
--- NOTE | 2023-04-01 17:45 | RT.EKG_ITS ---
APPROVED REPORT Exam: Resting ECG Reason for Exam: Dizziness Patient Location: E HR:96 bpm ECG Measurements Heart Rate 96 AXIS HI 145 P 58 QRSd 97 QRS 56 QT 369 T 5 QTc 467 Conclusion Sinus rhythm...normal P axis, V-rate 60- 99
--- NOTE | 2023-04-01 18:04 | W.ED.GENAD ---
HPI General Mode of arrival: EMS. Date/Time Provider Initiated Documentation: 04/01/23 17:55. Information obtained by: patient and EMS. History of Present Illness 72 year old M presents to the emergency department with the chief complaint of fell, described as moderate, Patient started experiencing this hour(s) (1) No relieving factors improve symptom(s), No exacerbating factors reported . Patient notes denies chest pain, fever/chills, nausea/vomiting and shortness of breath. Patient did receive the following treatments prior to arrival, none Related Data Home Medications Medication Instructions Recorded Confirmed levothyroxine 75 mcg tablet 75 mcg PO DAILY #4 tabs 08/04/17 04/01/23 pravastatin 20 mg tablet 40 mg PO DAILY 01/25/19 04/01/23 lamotrigine 100 mg tablet 100 mg PO BID 07/29/20 04/01/23 duloxetine 60 mg capsule,delayed 30 mg PO BID 09/15/21 04/01/23 release (Cymbalta) melatonin 5 mg tablet 10 mg PO HS PRN 02/02/22 04/01/23 multivitamin 1 tab PO DAILY 02/02/22 04/01/23 turmeric 450 mg-turmeric root 1 cap PO DAILY 02/02/22 04/01/23 extract 50 mg capsule acetaminophen 500 mg tablet 500 mg PO Q6H PRN pain #60 tabs 02/10/22 04/01/23 ibuprofen 600 mg tablet 600 mg PO TID PRN pain #60 tabs 02/10/22 04/01/23 quetiapine 25 mg tablet (Seroquel) 25 mg PO HS 03/26/22 04/01/23 quetiapine 400 mg tablet 400 mg PO 1XD 04/01/23 04/01/23 quetiapine 50 mg tablet 50 mg PO 1XD 04/01/23 04/01/23 Previous Rx's Medication Instructions Recorded levothyroxine 75 mcg tablet 75 mcg PO DAILY #4 tabs 08/04/17 acetaminophen 500 mg tablet 500 mg PO Q6H PRN pain #60 tabs 02/10/22 ibuprofen 600 mg tablet 600 mg PO TID PRN pain #60 tabs 02/10/22 Allergies Allergy/AdvReac Type Severity Reaction Status Date / Time No Known Allergies Allergy Verified 04/01/23 21:10 General Stated Complaint: Fall/Non TraumaCriteria ASHWIN: 2 Review of Systems All systems reviewed & are unremarkable except as noted in HPI and below Constitutional Constitutional: Denies chills, Denies fever(s) and Denies weakness Cardiovascular Cardiovascular: Denies chest pain and Denies dyspnea Respiratory Respiratory: Denies cough and Denies dyspnea Gastrointestinal Gastrointestinal: Denies abdominal pain, Denies nausea and Denies vomiting Genitourinary Genitourinary: Denies dysuria Integumentary/Breasts Skin/Breast: Denies rash Neurologic Neurologic: Denies weakness Exam Const Orientation: alert [facility] Head: normal to inspection Ears: external ears normal General nose exam: external nose normal Mouth: moist mucous membranes Eyes General: appearance normal, both eyes and all related structures Neck Neck: normal visual inspection Resp Effort & Inspection: normal respiratory effort and able to speak in complete sentences Auscultation: clear to auscultation bilaterally Cardio Jugular venous pressure: no JVD Rate: regular rate Heart Sounds: no murmurs GI Palpation: soft and nontender Skin General skin exam: no rashes or lesions noted Neuro General: patient alert and patient oriented x3 Extrem General: normal to inspection Course Vital Signs Vital signs: Vital Signs Temperature 36.2 C L 04/01/23 17:48 Pulse 100 H 04/01/23 17:48 Respiratory Rate 17 04/01/23 17:48 Blood Pressure 206/75 H 04/01/23 17:48 Pulse Oximetry 97 04/01/23 17:48 Temperature 36.2 C L 04/01/23 17:48 Temperature Source Oral 04/01/23 17:48 Pulse 100 H 04/01/23 17:48 Respiratory Rate 17 04/01/23 17:48 Respiratory Effort Normal 04/01/23 18:01 Blood Pressure 206/75 H 04/01/23 17:48 Blood Pressure Position Supine 04/01/23 17:48 Pulse Oximetry 97 04/01/23 17:48 Oxygen Delivery Method Room Air 04/01/23 17:48 Oxygen Flow Rate 0 04/01/23 17:48 Medical Decision Making 72 yo male with hx of bipolar per chart review and neuroleptic induced tardive dyskinesia, who comes in after a fall at [employer]. Per ems bystanders state he fell and hit the doot of the bathroom door inside the store, no reported loc. Patient arrives restless, does know his name where he is and time of day but is not able to answer or provide a lot of details to most questions. He denies headache, chest pain, abdominal pain, fevers, chills dyspnea. Moving all extremities and is restless and moving constantly during the exam and history. Unclear etiology of his fall and if his restlessness today is new, will obtain ekg/troponin, cbc, cmp, ua and ct head/c spine given the fall and cxr. He has no abdominal tenderness so do not feel imaging of abdomen indicated. Will give 1mg iv ativan as well to try and help lessen the movement he is having so imaging can be obtained pt much less restless after ativan, bp now 160/100 down from over 200 systolic with just ativan. labs and imaging pending labs and imaging unremarkable. PT has disorganized speech and tangential thoughts. Was finally able to speak with his on the phone. She states he's been in a manic state the last few days and when this happens she has to vacate the house for her safety so she is at her sister's house in [place]. He had to be hospitalized at [facility] for similar episode 2-3 years ago per the . Will have mental health evaluate pt evaluated by [facility] and will be seeking voluntary mental health placement Differential Diagnosis Differential Diagnosis: electrolyte abnormality, mechanical fall, syncope Medical Records Medical records reviewed: Yes I reviewed the patient's medical records. Imaging Data Radiologic Study: Attestation: I personally reviewed and interpreted this imaging study as follows: Imaging: X-Ray Radiologist's impression: IMPRESSION: 1. Low lung volumes with minor basilar subsegmental atelectasis. No suspected infiltrates. 2. No definite acute rib fractures. There are few chronic lower left lateral rib fractures. If the patient is acutely symptomatic in this region, consider rib detail views for greater sensitivity/specificity Radiologic Study #2: Attestation: I personally reviewed and interpreted this imaging study as follows: Imaging: CT Scan Radiologist's impression: no acute findings ct head/face/cspine Lab Data Lab results reviewed: Yes I reviewed the patient's lab results. ECG Data Attestation: I personally reviewed and interpreted this ECG (s) as follows: Prior ECG tracings: available for review Interpretation: sinus rate of 96, pr 145, no stemi Quality:SDOH Health Related Social Needs: No Data to Display PFSH All Active Problems (Updated 04/01/23 @ 21:00 by Wally Arguello MD) Right lateral epicondylitis (Acute) Left carpal tunnel syndrome (Acute) Intra-articular fracture of distal end of radius with volar angulation (Acute) Fracture of left distal radius (Acute) Neuroleptic-induced tardive dyskinesia (Acute) BRCA2 gene mutation positive (Acute) Prediabetes (Acute) Family history of colon cancer (Acute) Major depression (Chronic) Suicide ideation (Acute) Bipolar disorder, manic (Acute) Prostate cancer (Chronic) Hyperlipidemia (Chronic) Hypothyroidism (Chronic) Memory loss (Acute) Drug-induced tremor (Acute) Discharge planning issues (Acute) Medical History Psoriasis Surgical History History of colonoscopy (~07/2013) S/P appendectomy S/P cholecystectomy S/P tonsillectomy Family History Father Alzheimer disease Prostate cancer Anxiety Mother Colon cancer Heart disease Social History Smoking/Tobacco Use Status: Never Smoking risk assessment performed?: Yes Alcohol Intake: current Alcohol Intake frequency: holidays/special occasions only Drug use: Never Substance use type: does not use Household members: spouse Housing: house Number of Children: 2 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; [employer] Do you feel safe at home: Yes Do you feel safe in your relationship?: Yes Sign Out Sign Out Data: Sign Out Comment: history of bipolar, per the last several days has been having a manic episode and disorganized thoughts similar to prior episodes, he is currently seeking voluntary psych placement Last updated by Wally Arguello MD at 04/01/23 21:49 Discharge Plan Disposition Condition: Stable Discharge Details Chief Complaint: Fall/Non TraumaCriteria Clinical Impression: Bipolar disorder, manic Primary Care Provider: Dewayne Mckinley ED Provider: Wally Arguello Home Meds and New Rx's Prescriptions: No Action quetiapine [Seroquel] 25 mg tablet 25 mg PO HS lamotrigine 100 mg tablet 100 mg PO BID duloxetine [Cymbalta] 60 mg capsule,delayed release(DR/EC) 30 mg PO BID multivitamin Tablet 1 tab PO DAILY melatonin 5 mg tablet 10 mg PO HS PRN Hold Instructions: Pt Stopped/Never Started turmeric-turmeric root extract 450-50 mg capsule 1 cap PO DAILY pravastatin 20 mg tablet 40 mg PO DAILY acetaminophen 500 mg tablet 500 mg PO Q6H PRN (Reason: pain) Qty: 60 2RF ibuprofen 600 mg tablet 600 mg PO TID PRN (Reason: pain) Qty: 60 0RF quetiapine 400 mg tablet 400 mg PO 1XD Patient Comments: TAKE ONE TABLET BY MOUTH AT BEDTIME WITH 50MG quetiapine 50 mg tablet 50 mg PO 1XD Patient Comments: TAKE TWO TABLETS BY MOUTH AT BEDTIME INCREASE DOSE IN 30 DAYS levothyroxine 75 MCG tablet 75 mcg PO DAILY Qty: 4 0RF
[2023-04-01] MEDS: LORazepam 2 MG/ML VIAL 1 MG IVP (18:12)
[2023-04-01 18:15] LABS: Abs Immature Grans 0.03 10^3/uL (0.0-0.06); Absolute Basophil Count 0.04 10^3/uL (0.0-0.2); Absolute Eosinophil Count 0.01 10^3/uL (0.0-0.7); Absolute Lymphocyte Count 1.45 10^3/uL (1.2-3.4); Absolute Monocyte Count 0.47 10^3/uL (0.1-0.8); Basophils % 0.4; Eosinophils % 0.1; Immature Grans % 0.3; Lymphocytes % 13.7; MCH 30.7 pg (27.0-33.0); MCHC 34.2 % (32.0-36.0); MCV 90 fL (80-95); MPV 8.5 fL (8.0-11.0); Monocytes % 4.4; Neutrophils % 81.1; Platelet Count 385 10^3/uL (130-400); RBC 4.23 10^6/uL (4.36-5.78); RDW-SD 42.7 fL
[2023-04-01 18:25] LABS: INR 1.1 (0.9-1.1); PTT Activated 24.6 sec (23.6-32.8); Prothrombin Time 10.8 sec (9.1-11.1)
[2023-04-01 18:36] LABS: ALT 65 U/L (16-63); AST 124 U/L (15-37); Albumin 4.4 g/dL (3.4-5.0); Alkaline Phosphatase 64 U/L (46-116); Anion Gap 12.4 mmol/L (3-11); BUN 29 mg/dL (7-18); Bilirubin, Total 0.8 mg/dL (0.2-1.0); CO2 24.6 mmol/L (21.0-32.0); Calcium 9.6 mg/dL (8.5-10.1); Chloride 105 mmol/L (98-107); Estimated GFR 78.98 (mL/min/1.73m2); Glucose 145 mg/dL (74-106); Magnesium 2.3 mg/dL (1.8-2.4); Potassium 3.7 mmol/L (3.5-5.1); Sodium 142 mmol/L (136-145); TSH (W/Ref FT4) 3.11 uIU/mL (0.36-3.74); Total Protein 8.6 g/dL (6.4-8.2); Troponin I < 50 ng/L (< or =60)
[2023-04-01 18:47] LABS: ETHANOL BLOOD < 3.0 mg/dL (<10)
--- NOTE | 2023-04-01 19:25 | DI.RAD_ITS ---
Exam(s) XR CHEST 1V IN DI DEPT EXAM: XR CHEST 1V IN DI DEPT CLINICAL HISTORY: fall, ?pneumonia TECHNIQUE: 2D digital imaging was performed of the chest. One image was obtained. An AP view was ob tained. COMPARISON: No exams were available for comparison FINDINGS: There are low lung volumes present. MEDIASTINUM: Normal. HEART: Normal. PULMONARY VASCULATURE: Normal. LUNGS: Clear. PLEURAL SPACE: No pleural effusion or pneumothorax. BONE:Within normal limits for the patient's age. No acute abnormality. OTHER FINDINGS:Normal. IMPRESSION: No focal consolidating infiltrates. DATA REPOSITORY: RADIATION DOSE DELIVERED:
--- NOTE | 2023-04-01 19:25 | DI.CT_ITS ---
Exam(s) CT HEAD CERV SPINE FACIAL WO EXAM: CT HEAD CERV SPINE FACIAL WO CLINICAL HISTORY: fall, pain. TECHNIQUE: Imaging Protocol: Axial computed tomography images with coronal and sagittal reformatted images were created and reviewed COMPARISON: No exams were available for comparison FINDINGS: The examination is limited due to patient motion artifact. CT Head: Ventricles and Extra axial spaces: Normal in size and morphology for the patient's age. Hemorrhage: None. Cerebral parenchyma: There are areas of decreased attenuation in the white matter consistent with sma ll vessel ischemic disease. There is no mass effect. Midline shift: None. Brainstem/Cerebellum: Normal. Calvarium: Normal. Visualized Paranasal sinuses/Mastoids: There is mild mucosal thickening in the maxillary sinuses. No fluid levels are seen. Soft Tissues: Unremarkable. CT Face: There is artifact from the patient's dental amalgam. Facial Bones: No definite fracture is noted in facial bones. Sinuses and Mastoids: Mild mucosal thickening in the maxillary sinuses. No fluid levels are seen. Globes, extraocular muscles, optic nerves and retrobulbar fat: Normal. Upper aerodigestive tract: Normal. Mandible and bilateral temporomandibular joints: There are degenerative changes seen at the right te mporomandibular joint. Soft tissues: Normal. CT Cervical Spine: Bones: No acute fracture or subluxation. Age-appropriate degenerative changes are present. Soft Tissues: Unremarkable. Lung Apices: Clear. IMPRESSION: 1. Examination limited by patient motion artifact particularly the posterior fossa of the brain and d ental work artifact particularly on the CT scan of the face. 2. No definite acute intracranial process. If is continued clinical concern, an MRI or repeat CT sca n may be obtained. 3. No acute facial fracture. 4. No acute fracture or subluxation in the cervical spine. RADIATION DOSE DELIVERED: 3,024.22mGy.cm Total DLP DATA REPOSITORY: All CT scans at this facility are submitted to the National Radiology Data Registry (NRDR) Dose Index Registry (DIR) with the [employer] (ACR). RADIATION OPTIMIZATION: All CT scans at this facility use at least one of these dose optimization te chniques: automated exposure control; mA and/or kV adjustment per patient size (includes targeted exa ms where dose is matched to clinical indication); or iterative reconstruction.
--- NOTE | 2023-04-01 19:45 | DI.VRAD_ITS ---
PROCEDURE INFORMATION: Exam: XR Chest Exam date and time: 04/01/2023 7:21 PM Age: 72 years old Clinical indication: Injury or trauma; Blunt trauma (contusions or hematomas); Injury date: 04/01/23; Patient HX: Fall, pneumonia? TECHNIQUE: Imaging protocol: Radiologic exam of the chest. Views: 1 view. COMPARISON: CT HEAD CERV SPINE FACIAL WO 04/01/2023 7:12 PM FINDINGS: Lungs: Low lung volumes. No gross pulmonary infiltrates or edema pattern. Minor bandlike atelectasis in the lung bases commensurate with low lung volumes. Pleural spaces: No pleural effusion. No pneumothorax. Heart/Mediastinum: Heart size and pulmonary vasculature within normal limits for portable AP technique and low lung volumes. No tracheal/mediastinal shift. Bones/joints: There is mild contour irregularity in the left lateral 5th, 6th, and 7th ribs likely representing chronic rib fractures, with a few chronic rib fractures partially visualized in this region on CT abdomen and pelvis 04/27/2019. Intraperitoneal space: Right upper quadrant surgical clips suggest prior cholecystectomy. IMPRESSION: 1. Low lung volumes with minor basilar subsegmental atelectasis. No suspected infiltrates. 2. No definite acute rib fractures. There are few chronic lower left lateral rib fractures. If the patient is acutely symptomatic in this region, consider rib detail views for greater sensitivity/specificity. Dictated and Authenticated by: Gaetano Talavera MD. Ordering:VIRIDIANA Lo MD
[2023-04-01 20:17] LABS: Bilirubin Small (Negative); Blood Negative (Negative); Clarity Sl Cloudy (Clear); Glucose Negative (Negative); Ketones 15 mg/dL (Negative); Leukocyte Esterase Negative (Negative); Nitrite Negative (Negative); Specific Gravity 1.025 (1.005-1.025); Urobilinogen 0.2 mg/dL (Up to 0.2); pH 6.5 (5-8)
--- NOTE | 2023-04-01 20:19 | DI.VRAD_ITS ---
PROCEDURE INFORMATION: Exam: CT Head Without Contrast Exam date and time: 04/01/2023 7:12 PM Age: 72 years old Clinical indication: Injury or trauma; Blunt trauma (contusions or hematomas); Consciousness not specified; Forehead; Injury date: 04/01/23; Patient HX: Fall, pain TECHNIQUE: Imaging protocol: Computed tomography of the head without contrast. Radiation optimization: All CT scans at this facility use at least one of these dose optimization techniques: automated exposure control; mA and/or kV adjustment per patient size (includes targeted exams where dose is matched to clinical indication); or iterative reconstruction. COMPARISON: MR BRAIN WO 01/29/2019 2:25 PM FINDINGS: Brain: Age-appropriate atrophy. No intracranial hemorrhage. No cerebral edema. No mass. No large territory infarct. Cerebral ventricles: No ventriculomegaly. Paranasal sinuses: Visualized sinuses are unremarkable. No fluid levels. Mastoid air cells: Visualized mastoid air cells are well aerated. Bones/joints: No skull fracture. Degenerative right temporomandibular joint change. Soft tissues: Unremarkable. IMPRESSION: 1. No acute intracranial changes. No intracranial hemorrhage. 2. No skull fracture. PROCEDURE INFORMATION: Exam: CT Maxillofacial Without Contrast Exam date and time: 04/01/2023 7:12 PM Age: 72 years old Clinical indication: Injury or trauma; Blunt trauma (contusions or hematomas); Consciousness not specified; Forehead; Injury date: 04/01/23; Patient HX: Fall, pain TECHNIQUE: Imaging protocol: Computed tomography of the face without contrast. Radiation optimization: All CT scans at this facility use at least one of these dose optimization techniques: automated exposure control; mA and/or kV adjustment per patient size (includes targeted exams where dose is matched to clinical indication); or iterative reconstruction. COMPARISON: MR BRAIN WO 01/29/2019 2:25 PM FINDINGS: Orbital cavities: Ocular globes and orbits are unremarkable. No acute features. Previous ocular lens replacement surgery suggested. Bones/joints: No facial bone fracture. Degenerative features of the right temporomandibular joint. Paranasal sinuses: Normal. No air-fluid levels. Soft tissues: Facial soft tissues are unremarkable in appearance. No garrison hematoma. No soft tissue gas or foreign body. IMPRESSION: 1. No facial bone fracture. 2. Right temporomandibular joint degenerative change. 3. Facial soft tissues are unremarkable. No garrison hematoma, gas, or foreign body. PROCEDURE INFORMATION: Exam: CT Cervical Spine Without Contrast Exam date and time: 04/01/2023 7:12 PM Age: 72 years old Clinical indication: Injury or trauma; Blunt trauma (contusions or hematomas); Consciousness not specified; Forehead; Injury date: 04/01/23; Patient HX: Fall, pain TECHNIQUE: Imaging protocol: Computed tomography of the cervical spine without contrast. Radiation optimization: All CT scans at this facility use at least one of these dose optimization techniques: automated exposure control; mA and/or kV adjustment per patient size (includes targeted exams where dose is matched to clinical indication); or iterative reconstruction. COMPARISON: CT UPPER EXTREMITY LT WO 02/08/2022 12:43 PM FINDINGS: Bones/joints: Multilevel degenerative cervical spine. No acute fracture. No acute dislocation. Degenerative 3 mm anterolisthesis of C4 on C5. Mild levoscoliosis which is nonspecific. Lungs: Lung apices are clear. Soft tissues: Soft tissues of the neck are unremarkable. IMPRESSION: Degenerative cervical spine. No acute fracture or dislocation. Dictated and Authenticated by: Kurt Bang MD. Ordering:VIRIDIANA Lo MD
[2023-04-01 20:26] LABS: Bacteria Rare HPF (Negative); C & S Indicated? No; Casts Negative LPF (Negative); Crystals Negative HPF (Negative); Epithelial Cells Rare HPF (Negative); Mucus Moderate (Negative); RBC 0-2 HPF (0-2); WBC Negative HPF (0-5)
[2023-04-01 20:33] LABS: *AMPHETAMINES SCREEN URINE Negative (Negative); *BARBITURATES SCREEN URINE Negative (Negative); *BENZODIAZEPINES SCREEN URINE Negative (Negative); Cannabinoids THC Negative (Negative); Cocaine Screen,Urine Negative (Negative); METHADONE URINE SCREEN Negative (Negative); OPIATES URINE SCREEN Negative (Negative)
[2023-04-01 20:49] LABS: Tricyclic Antidepressants Positive (Negative)
[2023-04-01 21:36] LABS: Troponin I < 50 ng/L (< or =60)
--- NOTE | 2023-04-01 21:48 | NUR.NOTE ---
Medical clearance sent to [facility]
--- NOTE | 2023-04-02 01:50 | PDOC.MHCN_ITS ---
Date of service: 04/01/23 Time of Service: 21:10 Mental Health Emergency Note Release [facility] release signed:: No Reason for Visit In the last 2 weeks has the pt presented for ES prior to today?: No Non Suicidal Self Injury Current: No History: No Safety Risk/Harm to Self or Others Current Ideation to Harm Self or Others: No Asssessment/Mental Status Appearance: Unremarkable Attitude: Cooperative Behavior: Unremarkable and Repetitive movements Speech: Normal, Incoherent and Slurred Affect: Normal Mood: Happy Thought process: Loose associations, Flight of ideas and Tangential Hallucinations: yes, Visual Delusions: No evidence Attention: Inattention and Poor concentration Perception: Not impaired Orientation: Disoriented in ( Kilo appeared tired to this securities underwriter and was observed moving his head frequently during the assessment ) Time, Place and Situation Memory: Impaired in: (Clients psychosis ) Immediate Insight: Fair Judgement: Fair Neurovegetative Symptoms Sleep: No change Appetitie: No change Interests: No change Energy: No change Impression Client was observed to this securities underwriter as unable to following the assessment. Client was unable to answer most of the assessment and all of the screening tool. Client appeared to this securities underwriter as confused and was unable to remember what job he had before he retired, or his past mental sundar history. This securities underwriter then spoke with the clients to get some further information on the client. Clients , Yaneth, reported that she had to leave the house on for her own safety and has been staying with her sister. Yaneth reported that he has a history of this psychosis and has recently started a new medication for his prostate cancer that does affect his psychological medications. Yaneth further reported that after his last psychosis client tried to kill himself with a gun and went into inpatient care for his depression, and then to the care bed for 4 months. Client reported no SI or HI at this time. Client reported not substance usage at this time. Client is currently set up with PCP, therapist, and psychiatrist. Plan/Disposition Recommended Disposition: Hospitalization facilities contacted. Plan: Client will remain at [facility] until inpatient placement is found, client will need daily reassessments until placed.? Reports/communication Outcome discussed with: ED/Personnel
[2023-04-02 07:24] VITALS: BP 144/79; PULSE 90; RESP 18; TEMP 37.1; O2SAT 98
[2023-04-02] MEDS: DULoxetine 30 MG CAP PO (07:59)
[2023-04-02] MEDS: Levothyroxine 75 MCG TAB PO (07:59)
[2023-04-02] MEDS: lamoTRIgine 100 MG TAB PO (07:59)
[2023-04-02] MEDS: Normal Saline Flush 10 ML SYR IVP (08:53)
--- NOTE | 2023-04-02 09:03 | W.EDPROG ---
Date of service: 04/01/23 Time of Service: 22:00 Medical Decision Making Quality:SDOH Health Related Social Needs: No Data to Display Narrative I received signout. I have examined the patient. He slept most of the night but did get up to use the bathroom several times. No complaints. He remained stable overnight. Sign Out Sign Out Data: Sign Out Comment: history of bipolar, per the last several days has been having a manic episode and disorganized thoughts similar to prior episodes, he is currently seeking voluntary psych placement Last updated by Wally Arguello MD at 04/01/23 21:49 Discharge Plan Disposition Condition: Stable Discharge Details Chief Complaint: Fall/Non TraumaCriteria Clinical Impression: Bipolar disorder, manic Primary Care Provider: Dewayne Mckinley ED Provider: Raquel Llanes Home Meds and New Rx's Prescriptions: No Action quetiapine [Seroquel] 25 mg tablet 25 mg PO HS lamotrigine 100 mg tablet 100 mg PO BID duloxetine [Cymbalta] 60 mg capsule,delayed release(DR/EC) 30 mg PO BID multivitamin Tablet 1 tab PO DAILY melatonin 5 mg tablet 10 mg PO HS PRN Hold Instructions: Pt Stopped/Never Started turmeric-turmeric root extract 450-50 mg capsule 1 cap PO DAILY pravastatin 20 mg tablet 40 mg PO DAILY acetaminophen 500 mg tablet 500 mg PO Q6H PRN (Reason: pain) Qty: 60 2RF ibuprofen 600 mg tablet 600 mg PO TID PRN (Reason: pain) Qty: 60 0RF quetiapine 400 mg tablet 400 mg PO 1XD Patient Comments: TAKE ONE TABLET BY MOUTH AT BEDTIME WITH 50MG quetiapine 50 mg tablet 50 mg PO 1XD Patient Comments: TAKE TWO TABLETS BY MOUTH AT BEDTIME INCREASE DOSE IN 30 DAYS levothyroxine 75 MCG tablet 75 mcg PO DAILY Qty: 4 0RF
--- NOTE | 2023-04-02 09:24 | ED.PROG_ITS ---
Date of service: 04/02/23 Time of Service: 09:24 Medical Decision Making PATIENT MEDICALLY CLEARED AND PENDING FURTHER PSYCH EVAL / PLACEMENT AT THE TIME OF SIGN OUT. PATIENT EVALUATED BY [facility] THIS MORNING. NO SI, PATIENT ISN'T INTERESTED IN VOLUNTARY PLACEMENT. A SAFETY PLAN WAS ENACTED AND AGREED TO BY PATIENT. DISCUSSED WITH PATIENT AND HIS EXAM IN [place]ENIGN, AOX3, NO SI/HI, LINEAR THOUGHTS AND PLANS. STABLE FOR DC HOME. Quality:SDOH Health Related Social Needs: No Data to Display Sign Out Sign Out Data: Sign Out Comment: history of bipolar, per the last several days has been having a manic episode and disorganized thoughts similar to prior episodes, he is currently seeking voluntary psych placement Last updated by aWlly Arguello MD at 04/01/23 21:49 Sign Out Comment: This is a 72-year-old male with a history of true bipolar disease who presented manage records with disorganized thought process who has agreed to voluntary psychiatric admission. He remained stable overnight. Last updated by Raquel Llanes MD at 04/02/23 09:15 Discharge Plan Disposition Patient Disposition: Home Condition: Stable Discharge Details Clinical Impression: Bipolar disorder, manic Primary Care Provider: Dewayne Mckinley ED Provider: Raquel Llanes Home Meds and New Rx's Prescriptions: No Action quetiapine [Seroquel] 25 mg tablet 25 mg PO HS lamotrigine 100 mg tablet 100 mg PO BID duloxetine [Cymbalta] 60 mg capsule,delayed release(DR/EC) 30 mg PO BID multivitamin Tablet 1 tab PO DAILY melatonin 5 mg tablet 10 mg PO HS PRN Hold Instructions: Pt Stopped/Never Started turmeric-turmeric root extract 450-50 mg capsule 1 cap PO DAILY pravastatin 20 mg tablet 40 mg PO DAILY acetaminophen 500 mg tablet 500 mg PO Q6H PRN (Reason: pain) Qty: 60 2RF ibuprofen 600 mg tablet 600 mg PO TID PRN (Reason: pain) Qty: 60 0RF quetiapine 400 mg tablet 400 mg PO 1XD Patient Comments: TAKE ONE TABLET BY MOUTH AT BEDTIME WITH 50MG quetiapine 50 mg tablet 50 mg PO 1XD Patient Comments: TAKE TWO TABLETS BY MOUTH AT BEDTIME INCREASE DOSE IN 30 DAYS levothyroxine 75 MCG tablet 75 mcg PO DAILY Qty: 4 0RF Discharge Instructions Additional Instructions: PLEASE FOLLOW SAFETY PLAN PER YOUR MENTAL HEALTH EVALUATION TAKE MEDICATIONS PRESCRIBED FOLLOW UP WITH YOUR PRIMARY CARE PROVIDERS.
[2023-04-02 09:46] VITALS: BP 155/94; PULSE 96; RESP 18; TEMP 36.9; O2SAT 99
--- NOTE | 2023-04-02 10:10 | ED.PROG_ITS ---
Date of service: 04/02/23 Time of Service: 10:10 Medical Decision Making Patient's called Yaneth called and was concerned about the patient's discharge plan. She is worried for her safety, but when asked specifically, she denies that the patient has made any physical threats or harm to her and the immediate present. She states it happened in the past . At this time the patient is calm and cooperative and linear in his thought process. The patient has previously stated that she goes to her sister's house when he becomes manic. I advised that from a medical and mental health standpoint, he has been cleared for discharge however if she feels that there is a safety concern that she should involve the police immediately. She has been provided with the phone numbers for [facility] [phone] as well as [facility] [phone] Quality:[facility] Health Related Social Needs: No Data to Display Sign Out Sign Out Data: Sign Out Comment: history of bipolar, per the last several days has been having a manic episode and disorganized thoughts similar to prior episodes, he is currently seeking voluntary psych placement Last updated by Wally Arguello MD at 04/01/23 21:49 Sign Out Comment: This is a 72-year-old male with a history of true bipolar disease who presented manage records with disorganized thought process who has agreed to voluntary psychiatric admission. He remained stable overnight. Last updated by Raquel Llanes MD at 04/02/23 09:15 Discharge Plan Disposition Patient Disposition: Home Condition: Stable Discharge Details Clinical Impression: Bipolar disorder, manic Primary Care Provider: Dewayne Mckinley ED Provider: Raquel Llanes Home Meds and New Rx's Prescriptions: No Action quetiapine [Seroquel] 25 mg tablet 25 mg PO HS lamotrigine 100 mg tablet 100 mg PO BID duloxetine [Cymbalta] 60 mg capsule,delayed release(DR/EC) 30 mg PO BID multivitamin Tablet 1 tab PO DAILY melatonin 5 mg tablet 10 mg PO HS PRN Hold Instructions: Pt Stopped/Never Started turmeric-turmeric root extract 450-50 mg capsule 1 cap PO DAILY pravastatin 20 mg tablet 40 mg PO DAILY acetaminophen 500 mg tablet 500 mg PO Q6H PRN (Reason: pain) Qty: 60 2RF ibuprofen 600 mg tablet 600 mg PO TID PRN (Reason: pain) Qty: 60 0RF quetiapine 400 mg tablet 400 mg PO 1XD Patient Comments: TAKE ONE TABLET BY MOUTH AT BEDTIME WITH 50MG quetiapine 50 mg tablet 50 mg PO 1XD Patient Comments: TAKE TWO TABLETS BY MOUTH AT BEDTIME INCREASE DOSE IN 30 DAYS levothyroxine 75 MCG tablet 75 mcg PO DAILY Qty: 4 0RF Discharge Instructions Additional Instructions: PLEASE FOLLOW SAFETY PLAN PER YOUR MENTAL HEALTH EVALUATION TAKE MEDICATIONS PRESCRIBED FOLLOW UP WITH YOUR PRIMARY CARE PROVIDERS.
--- NOTE | 2023-04-02 10:41 | PDOC.MHPN2 ---
Date of service: 04/02/23 Time of Service: 09:12 PHQ-9 Over the last 2 weeks, how often have you been bothered by any of the following problems? 1. Little interest or pleasure in doing things: not at all 2. Feeling down, depressed, or hopeless: not at all 3. Trouble falling or staying asleep, or sleeping too much: not at all 4. Feeling tired or having little energy: not at all 5. Poor appetite or overeating: not at all 6. Feeling bad about yourself - or that you are a failure or have let yourself and your family down: not at all 7. Trouble concentrating on things, such as reading the newspaper or watching television: not at all 8. Moving or speaking so slowly that other people could have noticed? - Or the opposite - being so fidgety or restless that you have been moving around a lot more than usual: not at all 9. Thoughts that you would be better off or of hurting yourself in some way: not at all Total score: 0 If you checked off any problems, how difficult have these problems made it for you to do your work, take care of things at home, or get along with other people?: not difficult at all PHQ-9 Results: Negative Source: Developed by Drs. Juanjo Barfield, Kajal Gallardo, Seth Alan and colleagues, with an educational candido from [employer]. Suicide Severity Rate CSSRS Have you wished you were or wished you could go to sleep and not wake up?: No Have you actually had any thoughts of killing yourself?: No CSSRS3 Have you ever done anything, started to do anything or prepared to do anything to end your life?: Yes CSSRS4 Was this within the past three months?: No Screening Score Total Score: 2 Screening: Negative Mental Health Emergency Note Release [facility] release signed:: No Reason for Visit Nain presented to [facility] last night via ambulance. In the last 2 weeks has the pt presented for ES prior to today?: Unknown Client Information Client is: New Well Housed: Yes Non Suicidal Self Injury Current: No History: No Safety Risk/Harm to Self or Others Current Ideation to Harm Self or Others: No Risk: Does risk to harm exist?: No Risk: N/A Duty to warn indicated: No Asssessment/Mental Status Appearance: Unremarkable Attitude: Cooperative Behavior: Unremarkable Speech: Normal Affect: Cogruent with mood Mood: Anxious Thought process: Unremarkable Hallucinations: No evidence Delusions: No evidence Attention: Unremarkable Perception: Not impaired Orientation: Fully orientated Memory: Intact Insight: Good Judgement: Good Neurovegetative Symptoms Sleep: No change Appetitie: No change Interests: No change Energy: No change Libido: Not applicable Substance Use: Do you use nicotine?: No Have you used substances in the last 7 days?: No Additional Issues: Assaultive/Threatening Behavior: No Medical Concerns: Yes Client engaged in active self harm w/weapon: No Threatening to run away: No Child reported abuse/neglect: No Voluntarily presenting for services: Yes Domestic violence is a concern: No Extreme Psychosis or extreme behavior is present: No Impression Nain is at [facility] due to reported psychosis from previous clinician. Nain presents to this group underwriter alert, oriented, goal directed, with good insight and judgment. Nain reports he feels a lot better today than yesterday. Nain reports collapsing at [facility] and he thought he was going to . Nain reports he had anxiety and was attempting to go package pick up his prescription meds at this time, but did not make it. Nain reports the hospital gave him the medications he needed and they were working with him to get his script. Nain is not currently endorsing SI/HI/NSSI and reports no recent ideation. Nain is set up with a therapist and med provider in the community and feels he does not need additional support at this time. This clinician and Nain created a safety plan which entails follow up with his outpatient care team. Plan/Disposition Recommended Disposition: Therapy, Med management and Community resources. Plan: Nain will go home on a safety plan with a plan to package pick up his medications, follow up with his team and call [facility] if he feels he needs further support or wants additional services. Person reported agreement to plan: Yes Reports/communication Outcome discussed with: ED/Personnel
== END 2023-04-02 10:34 | disposition home or self-care (01) ==
PROVIDERS: Emergency Medicine; Emergency Provider Emergency Medicine; PCP Family Medicine
DX: F30.9 Manic episode, unspecified (principal); Z79.899 Other long term (current) drug therapy; W18.39XA Other fall on same level, initial encounter; Y93.89 Activity, other specified; Y92.812 Truck as the place of occurrence of the external cause
CPT/HCPCS: 00123; 36415; 80053; 80307; 82962; 93005; 96127; 96374; 99284; 70450; 70486; 71045; 72125; 80320; 81003; 81015; 83735; 84443; 84484; 85025; 85610; 85730; 93010; J2060

== ENCOUNTER 2023-04-19 03:32 | Outpatient (CLI) | payer MEDICARE, OTHER, SELFPAY ==
[2023-04-19 12:51] LABS: Abs Immature Grans 0.02 10^3/uL (0.0-0.06); Absolute Basophil Count 0.03 10^3/uL (0.0-0.2); Absolute Eosinophil Count 0.16 10^3/uL (0.0-0.7); Absolute Lymphocyte Count 2.15 10^3/uL (1.2-3.4); Absolute Monocyte Count 0.75 10^3/uL (0.1-0.8); Absolute Neutrophil Count 3.72 10^3/uL (1.2-6.7); Basophils % 0.4; Eosinophils % 2.3; HCT 37.2 % (40.0-50.0); HGB 12.3 g/dL (13.5-17.5); Immature Grans % 0.3; Lymphocytes % 31.5; MCH 30.6 pg (27.0-33.0); MCHC 33.1 % (32.0-36.0); MCV 93 fL (80-95); MPV 8.7 fL (8.0-11.0); Neutrophils % 54.5; Platelet Count 322 10^3/uL (130-400); RBC 4.02 10^6/uL (4.36-5.78); RDW 13.2 % (11.8-14.1); RDW-SD 44.3 fL; WBC 6.83 10^3/uL (4.4-10.8)
[2023-04-19 13:59] LABS: ALT 39 U/L (16-63); AST 28 U/L (15-37); Alkaline Phosphatase 79 U/L (46-116); Anion Gap 3.6 mmol/L (3-11); BUN 15 mg/dL (7-18); Bilirubin, Total 0.4 mg/dL (0.2-1.0); CO2 31.4 mmol/L (21.0-32.0); Chloride 103 mmol/L (98-107); Estimated GFR 78.98 (mL/min/1.73m2); Glucose 101 mg/dL (74-106); Potassium 4.2 mmol/L (3.5-5.1); Sodium 138 mmol/L (136-145); Total Protein 8.3 g/dL (6.4-8.2)
[2023-04-21 12:36] LABS: PSA, Ultrasensitive 0.04 ng/mL (<= 6.5)
[2023-04-22 16:02] LABS: Testosterone, Total 8.2 ng/dL (240-950)
== END 2023-04-19 03:33 | disposition home or self-care (01) ==
PROVIDERS: PCP Family Medicine; Visit Provider Nurse Practitioner
DX: C61 Malignant neoplasm of prostate (principal); C77.5 Secondary and unspecified malignant neoplasm of intrapelvic lymph nodes
CPT/HCPCS: 36415; 80053; 84153; 84403; 85025

== ENCOUNTER 2023-06-10 15:01 | Outpatient (CLI) | payer MEDICARE, OTHER, SELFPAY ==
[2023-06-10 14:52] LABS: Abs Immature Grans 0.03 10^3/uL (0.0-0.06); Absolute Basophil Count 0.07 10^3/uL (0.0-0.2); Absolute Eosinophil Count 0.47 10^3/uL (0.0-0.7); Absolute Lymphocyte Count 2.96 10^3/uL (1.2-3.4); Absolute Monocyte Count 0.73 10^3/uL (0.1-0.8); Absolute Neutrophil Count 3.69 10^3/uL (1.2-6.7); Basophils % 0.9; Eosinophils % 5.9; HCT 37.3 % (40.0-50.0); HGB 12.7 g/dL (13.5-17.5); Immature Grans % 0.4; Lymphocytes % 37.2; MCH 31.5 pg (27.0-33.0); MCV 93 fL (80-95); MPV 8.8 fL (8.0-11.0); Monocytes % 9.2; Neutrophils % 46.4; Platelet Count 326 10^3/uL (130-400); RBC 4.03 10^6/uL (4.36-5.78); RDW-SD 44.2 fL; WBC 7.95 10^3/uL (4.4-10.8)
[2023-06-10 15:47] LABS: Anion Gap 9.5 mmol/L (3-11); BUN 23 mg/dL (7-18); CO2 28.5 mmol/L (21.0-32.0); CREATININE 1.1 mg/dL (0.70-1.30); Chloride 105 mmol/L (98-107); Estimated GFR 70.44 (mL/min/1.73m2); Glucose 93 mg/dL (74-106); Potassium 4.5 mmol/L (3.5-5.1); Sodium 143 mmol/L (136-145)
== END 2023-06-10 15:02 | disposition home or self-care (01) ==
LOC: LBO 15:01
PROVIDERS: PCP Family Medicine
DX: Z79.899 Other long term (current) drug therapy (principal)
CPT/HCPCS: 36415; 80048; 85025

== ENCOUNTER 2023-06-13 09:19 | Outpatient (CLI) | payer MEDICARE, OTHER, SELFPAY ==
--- NOTE | 2023-06-13 09:15 | RT.EKG_ITS ---
APPROVED REPORT Exam: Resting ECG Reason for Exam: PRE-OP EXAM Patient Location: O HR:87 bpm ECG Measurements Heart Rate 87 AXIS MD 149 P 52 QRSd 97 QRS 38 QT 356 T 18 QTc 429 Conclusion Sinus rhythm...normal P axis, V-rate 50- 99 Inferior infarct, old...Q >35mS, II III aVF Artifact in lead(s) II,III,aVF
== END 2023-06-13 09:20 | disposition home or self-care (01) ==
PROVIDERS: PCP Family Medicine; Visit Provider Internal Medicine Cardiovascular Disease
DX: Z01.818 Encounter for other preprocedural examination (principal)
CPT/HCPCS: 93005; 93010

== ENCOUNTER → 2023-06-29 08:27 | Outpatient (BNVA) | payer MEDICARE, OTHER, SELFPAY | PROVIDERS: PCP Family Medicine; Referring Provider Family Medicine; Visit Provider Nurse Practitioner Gerontology | DX: C61 Malignant neoplasm of prostate (principal); Z46.6 Encounter for fitting and adjustment of urinary device | CPT/HCPCS: 99213 ==

== ENCOUNTER 2023-07-02 12:23 | Outpatient (REF) | payer MEDICARE, OTHER, SELFPAY ==
[2023-07-02 16:53] LABS: Bacteria Few HPF (Negative); Epithelial Cells Rare HPF (Negative); RBC >50 HPF (0-2)
[2023-07-02 16:54] LABS: C & S Indicated? C&S Done As Ordered; Casts Negative LPF (Negative); Crystals Negative HPF (Negative); Mucus Negative (Negative)
== END 2023-07-02 12:24 | disposition home or self-care (01) ==
LOC: NCHCN 12:23
PROVIDERS: PCP Family Medicine; Visit Provider Physician Assistant Medical
DX: R31.9 Hematuria, unspecified (principal)
CPT/HCPCS: 87077; 81015; 87086; 87186

== ENCOUNTER 2023-07-12 05:37 | Outpatient (CLI) | payer MEDICARE, OTHER, SELFPAY ==
[2023-07-12 10:57] LABS: Abs Immature Grans 0.04 10^3/uL (0.0-0.06); Absolute Basophil Count 0.04 10^3/uL (0.0-0.2); Absolute Eosinophil Count 0.14 10^3/uL (0.0-0.7); Absolute Lymphocyte Count 2.18 10^3/uL (1.2-3.4); Absolute Monocyte Count 0.57 10^3/uL (0.1-0.8); Absolute Neutrophil Count 4.29 10^3/uL (1.2-6.7); Basophils % 0.6 %; Eosinophils % 1.9 %; HGB 12.4 g/dL (13.5-17.5); Immature Grans % 0.6 %; MCHC 33.5 % (32.0-36.0); MCV 93 fL (80-95); MPV 8.3 fL (8.0-11.0); Monocytes % 7.9 %; Platelet Count 359 10^3/uL (130-400); RDW 12.6 % (11.8-14.1); RDW-SD 42.8 fL; WBC 7.26 10^3/uL (4.4-10.8)
[2023-07-12 11:04] LABS: Bilirubin Negative (Negative); Blood Negative (Negative); Clarity Clear (Clear); Glucose Negative (Negative); Ketones Negative (Negative); Leukocyte Esterase Negative (Negative); Nitrite Positive (Negative); Specific Gravity >= 1.030 (1.005-1.025); Urobilinogen 0.2 mg/dL (Up to 0.2); pH 5.5 (5-8)
[2023-07-12 11:11] LABS: Bacteria Few HPF (Negative); C & S Indicated? C&S Done As Ordered; Casts Negative LPF (Negative); Crystals Negative HPF (Negative); Epithelial Cells Rare HPF (Negative); Mucus Negative (Negative); RBC 0-2 HPF (0-2)
[2023-07-12 11:20] LABS: ALT 33 U/L (16-63); AST 24 U/L (15-37); Albumin 3.7 g/dL (3.4-5.0); Alkaline Phosphatase 76 U/L (46-116); Anion Gap 10.9 mmol/L (3-11); BUN 23 mg/dL (7-18); Bilirubin, Total 0.4 mg/dL (0.2-1.0); CO2 25.1 mmol/L (21.0-32.0); CREATININE 1.2 mg/dL (0.70-1.30); Chloride 106 mmol/L (98-107); Estimated GFR 63.46 (mL/min/1.73m2); Glucose 112 mg/dL (74-106); Potassium 3.9 mmol/L (3.5-5.1); Sodium 142 mmol/L (136-145); Total Protein 7.9 g/dL (6.4-8.2)
[2023-07-14 17:23] LABS: PSA, Ultrasensitive 0.01 ng/mL (<= 6.5)
[2023-07-16 02:31] LABS: Testosterone, Total <7.0 ng/dL (240-950)
== END 2023-07-12 05:38 | disposition home or self-care (01) ==
LOC: LBO 05:37
PROVIDERS: Urology; PCP Family Medicine; Visit Provider Internal Medicine
DX: C61 Malignant neoplasm of prostate (principal); N39.0 Urinary tract infection, site not specified; C77.5 Secondary and unspecified malignant neoplasm of intrapelvic lymph nodes; B96.89 Other specified bacterial agents as the cause of diseases classified elsewhere
CPT/HCPCS: 36415; 80053; 84153; 84403; 81003; 81015; 85025; 87086

== ENCOUNTER 2023-10-12 02:26 | Outpatient (CLI) | payer MEDICARE, OTHER, SELFPAY ==
--- OUTSIDE RECORDS SUMMARY | 2023-10-12 02:40 | XMS_ITS ---
Author Organization [facility] Address [address] [place] [address] [phone] Care Team Providers Care Boom Crane Operator Name Role Phone Shakila Hicks Primary Care Provider [phone] Allergies No Known Allergies REASON FOR VISIT med f/u, doing okay Medications Medication SIG (Take, Route, Frequency, Duration) Notes Start Date End Date Status Vitamin B Complex 100 Unknown VITAMIN D Unknown PRAVASTATIN 40 40 MG 1 tablet Orally Onc e a day for 90 day(s) Active Turmeric 450 MG 2 capsules Orally On ce a day Active Vitamin E 400 UNIT 1 capsule Orally Onc e a day for 30 day(s) Unknown Ibuprofen 200 MG 1 tablet with food o r milk as needed Orally Three times a day Active Levothyroxine Sodium 75 MCG 1 tablet in the morning on an empty stomach Orally Once a day for 30 day(s) Active Multivitamin - 1 tablet Orally Once a day for 30 day(s) Active KlonoPIN 0.5 MG 1/2 tablet Orally at bedtime for 30 days take for anxiety 08/09/2023 Active lamoTRIgine 150 MG 1 tablet Orally twic e a day for 30 days 08/04/2023 Active DULoxetine HCl 30 MG 1 capsule Orally Once a day for 30 days take for depression 09/01/2023 Active Vital Signs Blood pressure systolic 130 mmHg 09/22/19 24 Blood pressure diastolic 80 mmHg 024 Height 63 in 09/22/2023 Encounters Encounter Location Date Provider Diagnosis [address] [phone] 09/22/2023 Shakila Hicks Bipolar 2 disorder F31.81 Assessments Encounter Date Diagnosis (ICD Code) Assessment Notes Treatment Notes Treatment Clinical Notes 09/22/2023 Bipolar 2 disorder (ICD-10 - F31.81) recent manic episode 09/22/2023 Other Documentation assistance provided by micah Anderson for Shakila MUNOZ MANAGER [employer] EQUIPMENT ENGINEERING TECHNICIAN on 09/22/2023. I have read the medical record and scribe entries. I approve the care and treatment provided to this patient as recorded by the scribe. continue on duloxetine but increase to 30mg in am, monitor mood , monitor for brayan continue on Lamictal to 150 mg, once day Could consider increasing the dose . Monitor for rash and stop if rash occurs Can continue utilizing Klonopin 0.5 mg, quarter tablet as needed Continue individual and couples counseling with Roxana, is going to retire will refer to [facility] encouraged him to continue walking his dog daily , continue paying pickle ball couple times a week, consider returning to swimming during the week Plan Of Treatment Medication Medication Name Sig Start Date Stop Date Notes DULoxetine HCl 30 MG 1 capsule Orally On ce a day for 30 days 09/01/2023 Treatment Notes Assessment Notes Other Documentation assistance provided by micah Anderson for Shakila MUNOZ MANAGER [employer]QUIPMENT ENGINEERING TECHNICIAN on 09/22/2023. I have read the medical record and scribe entries. I approve the care and treatment provided to this patient as recorded by the scribe. Next Appt Details Follow Up: 6 Weeks, Reason: med f/u Provider Name:Shakila landa, 11/02/2023 01:30:00 PM, [address] [place] [address], [phone], Progress Notes * Nain LIPSCOMBDOB:1950 (73 yo M)Acc No.[id number]:09/22/2023 PMM Extended Patient:?Nain LIPSCOMB Provider:?Shakila Hicks PMHNP-BC :1950???Age:73 Y???Sex:Male Greg e:09/22/2023 Address:[address] [place], [place] [id number] Subjective: * Chief Complaints: * ???Med f/uDoing okay * HPI: ???INTERIM HISTORY:?*?Pt is a 73 y/o male who has a Hx of Bipolar II disorder is seen for med f/u via telephone. ?Cl is doing adequately well overall. He has been enrolled in lap swimming for adults and went for the first time yesterday, which was a great experience. He enjoys swimming three times a week and feels he has been moving in the right direction. He continues to walk the dog and playing pickleball when weather permits. He denies any flooding problem in his area. ?# sleep: His sleep pattern remains stable. ?# mood:He has been taking Duloxetine 30 mg and reports no concerns with mood. ?# Depression: Denies any depression lately. Heis currently taking lamotrigine 150 mg once a day, Denies any rash. ?He has been struggling with depression ?He has finished three months of treatment for PSA. Denies any significant side effects. States his energy has improved with resuming swimming. He does not participate in [place] [employer]. ?He frequently experienced loneliness during his childhood.He found it difficult to turn to his parents for help with any problems. He is notin touch with his younger sister. She didn't have any children. After getting , she was for a few years before her first . She later another man who was very nice, but it didn't work out. There's a sense that she might be getting again. ?His , Evita, continues to feel vulnerable, occasionally unappreciated, and experiences bouts of anger. Evita is not aware that her behaviors could potentially harm someone.Her sisters visited for the weekend on Father's Day and met their father at a hotel. He was drawn to [place] because he admired her family and their values. ?CL is not regularly in touch with his oldest son but maintains contact with his youngest son through texting. ?He was informed about EMDR and Accelerated Resolution Therapy (ART), a newer and shorter-term therapy that helps with intrusive memories and reduces bodily reactivity. He has used EMDR in the past and found it very beneficial in overcoming effects of his past trauma. ?He attends individual and couple therapy sessions with Roxana every other week and finds it to be a good fit. ?His BP today was 130/80..?Was hospitalized ?[facility] in 2003 for depression. ?Brayan at [facility] 2016 ?Depression at [facility] 2019.? Therapy: Individual and couples counseling with Roxana, working on EMDR with Roxana Suicide Attempts: Purchased a gun in 2019 and planned to shoot himself. Did not follow through with this plan and was admitted to [facility]. Violence History: Patient can be verbally abusive to his when he is manic, will often swear at her. Access to weapons: none in the house at this time. Gun was confiscated after his suicide plan in 2019 Trauma History: No report of physical or sexual abuse. Did report having parents who were not very emotional or caring towards him and is discussing this with his counselor Roxana Varela. Reports it is trauma with a small t instead of a big T. Psychotropic medication trials: Seroquel which caused daytime fatigue and sedation at high dose, Clonidine, sertraline, Cymbalta, Remeron, Tricyclics, Olanzapine, Abilify, Vraylar, Rexulti, Geodon, Vinton, Risperidone, Lamictal, Clonazepam Substance use history: Denies tobacco, alcohol, or drug use. Family History of mental illness: Mother diagnosed with depression, father had anxiety. Maternal grandfather committed suicide, paternal grandmother diagnosed with mental illness, and paternal uncle probable bipolar disorder. No family history of schizophrenia. Developmental and social history: Born full term, has a sister who he has no contact with. Parents were . Been to his Evita for over 50 years. Has 2 sons, has no contact with them. Lives in his own home with his and 2 dogs. Brad's maternal grandfather committed suicide when he was 8 y/o, and he has never processed this grief. His mother could never recover from this loss. Strengths: In a supportive marriage Goals: improve relationship with his . Medication side effects: None at this time Medication compliance: 100% : none Legal issues: none Education: High school diploma, college degree. Housing: Lives with 1 dogs in his house in [place], [place]. , Evita visits him during the day Employment: retired. Psychiatric ROS Sleep: Improved Energy: Improving slowly Mood: Feels a little depressed Appetite: okay Weight: no concerns Concentration/Focus: improvement in attention, able to read, focus is good Memory: good Anxiety/panic: none reported Agitation:none reported today, but can be very irritable when manic Stressors: Relationship stressors, Recurrent prostate cancer Behavior/Self-injurious behavior: no history of cutting. Activity level:Has been lying on the couch last few days In past has enjoyed walking his dog; used to play pickleball 2-3 times a week and swam 2-3 times a week. 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 No report of concussions or head injury. No history of seizures Gait and station: No concerns Abnormal movements: None reported Tics: none reported. ???INTERIM HISTORY::? Verbal consent was received by patient to proceed with this billable telephone visit. Telephone Visit Consent (reviewed with pt): This is a telephone visit. The visit will be billed to your insurance carrier. You may be responsible for any co-pay or coinsurance as required by your insurance carrier. Risks of telemedicine include poor reception agent limiting medical decision making by your provider, delays in treatment from equipment failure, and inability to complete a full evaluation (which may require an office visit). Benefits include the ability to receive care outside of our medical office. Do you consent to these terms as I have read to you? Pt agreed. Telephone call in place of office visit to decrease risk of exposure to COVID- 19. Telephone used in place of Televisit (video call) due the the patients lack of access to the necessary technology. I called the patient via telephone and introduced myself. I asked for the specified patient and patient confirmed that indeed I was speaking to the correct person. Patient expressed understanding and agreed to proceed with the call and treatment if necessary. . * ROS:?Pertinent positive and negative in HPI daily headaches has been referred to PT and also has been prescribed flexeril for muscle tension. * Medical History:? * Surgical History:?Radical Pr ostatectomy * Hospitalization/Major Diagno stic Procedure:?Depression- [facility] 2004Mania- [facility] 2016Depression- [facility] 2019 * Family History:?Mother: dece ased 80 yrs, Vascular Disease, Depression, Colon Cancer.?Father: 83 yrs, Alzheimer's, Anxiety, Prostate Cancer.?Sister: alive, No Contact.?Maternal Grandfather: , Suicide, Tongue Cancer, diagnosed with Unspecified nonpsychotic mental disorder following organic brain damage, Other malignant neoplasm of unspecified site.?Maternal Grandmother: .?Paternal Grandfather: .?Paternal Grandmother: , Metntal Illness, many psychiatric inpatient stays, Dementia, diagnosed with Unspecified nonpsychotic mental disorder following organic brain damage.?Paternal Uncle: ? Bipolar.?2 son(s) - healthy. .? * Social History:?MISCELLANEOUS:?MARITAL STATUS: . ?WHO DO YOU LIVE WITH?: Evita Lipscomb. ?DO YOU HAVE CHILDREN?: Yes, Grown. ?WHAT IS YOUR OCCUPATION?: Retired. ?HAVE YOU EVER HAD A SURGICAL COMPLICATION?Have you ever had any complications from surgery??No ?HAVE YOU EVER HAD A COMPLICATION FROM ANESTHESIA?Have you ever had any complications from anesthesia??No ?HAVE YOU EVER HAD A BLOOD TRANSFUSION?Have you ever had a blood transfusion??No ?HAVE YOU EVER SERVED IN THE ?Have you ever served in the ??No ?Sexual orientation: Heterosexual. ?WHAT ARE ALL THE STATES AND COUNTRIES YOU HAVE LIVED IN?: [place], [place], [place], [place]. ?WHO WAS YOUR PREVIOUS HEALTH CARE PROVIDER?: [facility]. ?WHO ARE YOUR SPECIALITY PHYSICIANS?: Dr Ralph, RIVERA, Brianna Hicks Psychiatrist, Dr. Barillas Oncologist, Roxana Hernandez, Psycologist, Bhavana Samuel. * Medications:?TakingDULoxetin e HCl 30 MG Capsule Delayed Release Particles 1 capsule Orally Once a day increase in dose due to depressionIbuprofen 200 MG Tablet 1 tablet with food or milk as needed Orally Three times a day KlonoPIN(clonazePAM) 0.5 MG Tablet 1/2 tablet Orally at bedtime take for anxietylamoTRIgine 150 MG Tablet 1 tablet Orally twice a day Levothyroxine Sodium 75 MCG Tablet 1 tablet in the morning on an empty stomach Orally Once a day Multivitamin(Multiple Vitamin) - Tablet 1 tablet Orally Once a day PRAVASTATIN 40 40 MG Tablet 1 tablet Orally Once a day Turmeric 450 MG Capsule 2 capsules Orally Once a day Taking DULoxetine HCl 30 MG Capsule Delayed Release Particles 1 capsule Orally Once a day increase in dose due to depressionTaking Ibuprofen 200 MG Tablet 1 tablet with food or milk as needed Orally Three times a day Taking KlonoPIN(clonazePAM) 0.5 MG Tablet 1/2 tablet Orally at bedtime take for anxietyTaking lamoTRIgine 150 MG Tablet 1 tablet Orally twice a day Taking Levothyroxine Sodium 75 MCG Tablet 1 tablet in the morning on an empty stomach Orally Once a day Taking Multivitamin(Multiple Vitamin) - Tablet 1 tablet Orally Once a day Taking PRAVASTATIN 40 40 MG Tablet 1 tablet Orally Once a day Taking Turmeric 450 MG Capsule 2 capsules Orally Once a day UnknownVitamin B Complex 100 VITAMIN D Vitamin E 400 UNIT Capsule 1 capsule Orally Once a day Unknown Vitamin B Complex 100 Unknown VITAMIN D Unknown Vitamin E 400 UNIT Capsule 1 capsule Orally Once a day * Allergies:?N.K.D.A.no[Allerg ies Verified] Objective: * Vitals:?BP:130/80mmHg, Heigh t: 63 in, Ht-cm: 160.02. * Examination: ???Treatment Plans: ?APPEARANCE:?72 y/o white, Syriac-speaking male,nails hair dressed in polo? shirt and shorts with good grooming.?ATTITUDE:?cooperative.?PSYCHOMOTOR ACTIVITY:?within normal range.?ABNORMAL BODY MOVEMENTS:?none.?ATTENTION:?improved.?DEGREE OF AWARENESS OF SURROUNDINGS:?within normal limits.?ORIENTATION:?Person, Place, Time.?AFFECT:?appropriate.?MOOD:?Euthymic.?SPEECH:?normal/R/V/R.?INSIGHT:?good.?JUDGEMENT:?good.?THOUGHT PROCESS:?Intact, organized and goal orientated.?THOUGHT CONTENT:?unremarkable.?PERCEPTUAL DISORDERS:?no perceptual disorder noted.?AGGRESSION:?low.?ANGER CONTROL:?low.?CURRENT SUICIDALITY:?Denies SI., Plan, Intent.?CURRENT HOMICIDALITY:?none.?INTELLIGENCE (estimate):?above average.?IMPULSE CONTROL:?good up to this point.?EYE CONTACT ?Normal.?MOTOR ACTIVITY?normal.?MEMORY IMPAIRMENT?None.?HALLUCINATIONS?denies , Auditory , Visual.?OTHER?None.?DELUSIONS?None.?BEHAVIOR ?Cooperative and polite.?Time spent with patient: I spent 55minutes with patient, 50% of which was face to face counseling or coordinating care for anxiety and depression, and brayan. I discussed treatment options including risk/benefit. Assessment: * Assessment: 1.?Bipolar 2 disorder - F31. 81 (Primary), recent manic episode? The cl overall is reporting a stable mood. Feels the increase in duloxetine has helped with his depression. No evidence of brayan or hypomania today. Continues to report some relationship stressors with his . Continues in individual and couple counseling with Roxana Mattie. He is working on regaining trust from his . He reports as a child he experienced emotional neglect, and has hard time trusting people generally. Is back to exercising, swimming, plans to 3 times a week which he really enjoys and has noted a huge change in his emotional well-being when he is swimming regularly. Plan: * Treatment: 2.?Others? Notes:Documentation assistance provided by micah Anderson for Shakila Hicks MSN MANAGER [employer] EQUIPMENT ENGINEERING TECHNICIAN on 09/22/2023. I have read themedical record and scribe entries. I approve the care and treatment provided tothis patient as recorded by the scribe.?? Clinical Notes: continue on duloxetine but increase to 30mg in am, monitor mood , monitor for brayan continue on Lamictal to 150 mg, once day Could consider increasing the dose . Monitor for rash and stop if rash occurs Can continue utilizing Klonopin 0.5 mg, quarter tablet as needed Continue individual and couples counseling with Roxana, is going to retire will refer to [facility] encouraged him to continue walking his dog daily , continue paying pickle ball couple times a week, consider returning to swimming during the week ?? * Procedure Codes:?G0467 [facility] VISIT ESTABLISHED PATIENT * Preventive Medicine:? continue on duloxetine but increase to 30mg in am continue on Lamictal to 150 mg,a day Consider increasing the dose if depression persists . Monitor for rash and stop if rash occurs Can continue utilizing Klonopin 0.5 mg, quarter tablet as needed Continue individual and couples counseling with Roxana, is going to retire will refer to [facility] encouraged him to continue walking his dog daily , continue paying pickle ball couple times a week, consider returning to swimming during the week Recommended to use photo therapy (light box) daily for 20 minutes from November-June for seasonal depression . * Follow Up:?6 Weeks (Reason: med f/u) * * Sign off status: Completed true * Provider:?NEFTALI Martínez D ate:?09/22/2023 Generated for Arturo macedo/Lev/eTransmitting on:?10/12/2023 02:40 AM EDT History and Physical Notes * HPI (History of Present Illness) Category Sub-Category Detail Notes INTERIM HISTORY * Pt is a 73 y/o male who has a Hx of Bipolar II disorder is seen for med f/u via telephone. Cl is doing adequately well overall. He has been enrolled in lap swimming for adults and went for the first time yesterday, which was a great experience. He enjoys swimming three times a week and feels he has been moving in the right direction. He continues to walk the dog and playing pickleball when weather permits. He denies any flooding problem in his area. # sleep: His sleep pattern remains stable. # mood: He has been taking Duloxetine 30 mg and reports no concerns with mood. # Depression: Denies any depression lately. He is currently taking lamotrigine 150 mg once a day, Denies any rash. He has been struggling with depression He has finished three months of treatment for PSA. Denies any significant side effects. States his energy has improved with resuming swimming. He does not participate in [employer]. He frequently experienced loneliness during his childhood. He found it difficult to turn to his parents for help with any problems. He is not in touch with his younger sister. She didn't have any children. After getting , she was for a few years before her first . She later another man who was very nice, but it didn't work out. There's a sense that she might be getting again. His , Evita, continues to feel vulnerable, occasionally unappreciated, and experiences bouts of anger. Evita is not aware that her behaviors could potentially harm someone.Her sisters visited for the weekend on Father's Day and met their father at a hotel. He was drawn to Evita because he admired her family and their values. CL is not regularly in touch with his oldest son but maintains contact with his youngest son through texting. He was informed about EMDR and Accelerated Resolution Therapy (ART), a newer and shorter-term therapy that helps with intrusive memories and reduces bodily reactivity. He has used EMDR in the past and found it very beneficial in overcoming effects of his past trauma. He attends individual and couple therapy sessions with Roxana every other week and finds it to be a good fit. His BP today was 130/80. Was hospitalized [facility] in 2003 for dep ression. Brayan at [facility] 2017 Depression at [facility] 2019 Examination Category Sub-Category Detail Notes Treatment Plans APPEARANCE: 72 y/o white, En glish-speaking male,nails hair dressed in polo shirt and shorts with good grooming ATTITUDE: cooperative PSYCHOMOTOR ACTIVITY: within normal rang e ABNORMAL BODY MOVEMENTS: none ATTENTION: improved DEGREE OF AWARENESS OF SURROUNDINGS: wit hin normal limits ORIENTATION: Person, Place, Time AFFECT: appropriate MOOD: Euthymic SPEECH: normal/R/V/R INSIGHT: good JUDGEMENT: good THOUGHT PROCESS: Intact, organized an d goal orientated THOUGHT CONTENT: unremarkable PERCEPTUAL DISORDERS: no perceptual diso rder noted AGGRESSION: low ANGER CONTROL: low CURRENT SUICIDALITY: Denies SI., Plan, I ntent CURRENT HOMICIDALITY: none INTELLIGENCE (estimate): above average IMPULSE CONTROL: good up to this poin t EYE CONTACT Normal MOTOR ACTIVITY normal MEMORY IMPAIRMENT None HALLUCINATIONS denies , Auditory , Visual OTHER None DELUSIONS None BEHAVIOR Cooperative and jose j te
--- OUTSIDE RECORDS SUMMARY | 2023-10-12 02:41 | XMS_ITS | Patient Health Record ---
Author Organization [facility] Address [address] [place] [phone] Care Team Providers Care Well Services Operator Name Role Phone Shakila Hicks Primary Care Provider Allergies No Known Allergies Reason For Referral Reason referred to [facility] by Shakila Hicks due to his counselor retiring Diagnosis 1 Bipolar 2 disorder ( F31.81) Diagnosis 2 Bipolar disorder, cu rrent episode manic without psychotic features, moderate (F31.12) Diagnosis 3 Marital problems (Z6 3.0) Referral Organization [facility] Referring Provider First Name Shakila Referring Provider Last Name Kurt Referring Provider Speciality Nurse Prac titioner Referred Provider Specialty Licensed Clmonster duarte Cutter Apprentice Hand Clinical Notes Indy Simpson 08/04 08:59:54 AM >Spoke with patient added, to waitlist. Prefers early afternoons in [place]. No preference on clinician. Referral Priority Routine Medications Medication SIG (Take, Route, Frequency, Duration) [...] 30 days take for anxiety 08/09/2023 Active DULoxetine HCl 30 MG 1 capsule Orally Once a day for 30 days take for depression 09/01/2023 Active lamoTRIgine 150 MG 1 tablet Orally twic e a day for 30 days 08/04/2023 Active Immunizations Vaccine Route Administration Date Status Comme nts COVID-19 Moderna 98367 Unknown 05/02/2020 Administered COVID-19 Moderna 64196 Unknown 05/30/2020 Administered COVID-19 Moderna 31260 Unknown 01/07/2021 Administered COVID-19 Moderna 49945 Unknown 06/23/2021 Administered Hepatitis A Unknown 01/25/2011 Administered Influenza Offsite [facility] Purch ased Vaccine 34128 Unknown 12/02/2020 Administered Pneumococcal Unknown 05/24/2014 Administered Prevnar PCV 13 [facility] 08097 Unknown 06/19/2015 Administer ed Td Unknown 07/26/2017 Administered TDAP Unknown 01/25/2007 Administered Yellow Fever Unknown 01/25/2011 Administered Zostavax [facility] 41672 Unknown 09/21/2011 Administered Social History Tobacco Use: Social History Observation Description Date Details (start date - stop date) Former Smoker NA - NA SMOKING STATUS: Question Answer Notes Are you a: Former smoker Are you a: Former smoker Problems Problem Type SNOMED Code ICD Code Onset Dates Problem Status W/U Status Risk Notes Problem 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 (428030846) 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) Active confirmed Problem Obesity (428246934) Obesity (E66.9) Active confirmed Problem Hypothyroidism (58346545) Hypothyroidism (E03.9) Active confirmed Problem Bipolar affective disorder, currently manic, moderate (693805611) Bipolar disorder, current episode manic without psychotic features, moderate (F31.12) Active confirmed Problem Insomnia (309041506) Insomnia (G47.00) Active confirmed Problem Psoriasis (6228691) Psoriasis (L40.9) Active confirmed Problem Malignant tumor of prostate (985556971) Prostate cancer (C61) Active confirmed Problem Bipolar 2 disorder (94336956) Bipolar 2 disorder (F31.81) Active confirmed recent manic episode Problem Marital problems (49065720) Marital problems (Z63.0) Active confirmed Problem Tardive dyskinesia (570528244) Tardive dyskinesia (G24.01) Active confirmed Problem Hyperlipidaemia (41562521) HLD (hyperlipidemia) (E78.5) Active confirmed Problem Prediabetes (127630957) Prediabetes (R73.03) Active confirmed Vital Signs Heart Rate 91 BPM 12/07/2022 Temperature 97.0 degrees Fahrenheit 12/07/2022 Blood pressure diastolic 80 mmHg 09/22/2023 Oximetry 97 % 12/07/2022 Height 63 in 09/22/2023 Blood pressure systolic 130 mmHg 09/22/2023 Weight 181.3 lbs 12/07/2022 BMI 32.11 kg/m2 12/07/2022 Encounters Encounter Location Date Provider Diagnosis [address] [id number] 12/07/2022 Jhaveri Brodzinski Bipolar 2 disorder F31.[address] [id number] 02/08/2023 Jhaveri Brodzinski Bipolar 2 disorder F31.[address] [id number] 03/22/2023 Jhaveri Brodzinski Bipolar 2 disorder F31.[address] [id number] 03/30/2023 Jhaveri Brodzinski Bipolar 2 disorder F31.[address] [id number] 04/01/2023 Jhaveri Brodzinski Bipolar 2 disorder F31.[address] [id number] 04/05/2023 Jhaveri Brodzinski Bipolar disorder, current episode manic without psychotic features, moderate F31.[address] [id number] 04/11/2023 Jhaveri Brodzinski Bipolar 2 disorder F31.[address] [id number] 04/14/2023 Jhaveri Brodzinski Bipolar 2 disorder F31.[address] [id number] 04/19/2023 Jhaveri Brodzinski Bipolar 2 disorder F31.[address] [id number] 04/25/2023 Jhaveri Brodzinski Bipolar disorder, current episode manic without psychotic features, moderate F31.[address], [place] [id number] 04/26/2023 Jhaveri Brodzinski Bipolar 2 disorder F31.[address], [place] [id number] 05/02/2023 Jhaveri Brodzinski Bipolar 2 disorder F31.[address], [place] [id number] 05/25/2023 Jhaveri Brodzinski Bipolar 2 disorder F31.[address], [place] [id number] 06/07/2023 Jhaveri Brodzinski Bipolar 2 disorder F31.[address], [place] [id number] 06/22/2023 Jhaveri Brodzinski Bipolar 2 disorder F31.[address], [place] [id number] 06/28/2023 Jhaveri Brodzinski Bipolar 2 disorder F31.[address], [place] [id number] 07/05/2023 Jhaveri Brodzinski Bipolar 2 disorder F31.[address], [place] [id number] 07/07/2023 Jhaveri Brodzinski Bipolar 2 disorder F31.[address], [place] [id number] 07/14/2023 Jhaveri Brodzinski Bipolar 2 disorder F31.[address], [place] [id number] 07/21/2023 Jhaveri Brodzinski Bipolar 2 disorder F31.[address], [place] [id number] 08/04/2023 Jhaveri Brodzinski Bipolar 2 disorder F31.[address], [place] [id number] 09/01/2023 Jhaveri Brodzinski Bipolar 2 disorder F31.[address], [place] [id number] 09/22/2023 Jhaveri Brodzinski Bipolar 2 disorder F31.[address], [place] [id number] 02/23/2023 Jhaveri Brodzinski [address], [place] [id number] 03/28/2023 Jhaveri Brodzinski [facility] [address] [facility] [place] [address] 03/30/2023 Jhaveri Brodzinski Bipolar 2 disorder F31.[address], [place] [id number] 03/31/2023 Jhaveri Brodzinski [address], [place] [id number] 04/01/2023 Jhaveri Brodzinski [address], [place] [id number] 04/01/2023 Jhaveri Brodzinski [address], [place] [id number] 04/02/2023 Jhaveri Brodzinski [address], [place] [id number] 04/04/2023 Jhaveri Brodzinski [address], [place] [id number] 04/04/2023 Jhaveri Brodzinski [address], [place] [id number] 04/06/2023 Jhaveri Brodzinski [address], [place] [id number] 04/13/2023 Jhaveri Brodzinski [facility] [address] [place] [address] 04/15/2023 Jhaveri Brodzinski [address] [place] [address] 05/09/2023 Jhaveri Brodzinski [id number] [facility] [place] [id number] 06/08/2023 Jhaveri Brodzinski Bipolar 2 disorder F31.[address], [place] [id number] 06/09/2023 Jhaveri Brodzinski [id number] [facility] [place] [id number] 06/27/2023 Jhaveri Brodzinski Bipolar 2 disorder F31.[address] [place] [id number] 07/04/2023 Shakila Hicks [facility] [address] [place] [address] 07/12/2023 Weston Kurt [address] [id number] 08/04/2023 Jhaverigrant Hicks [address] [id number] 08/05/2023 Weston Kurt [address] [id number] 08/09/2023 Weston Kurt Bipolar 2 disorder F31.81 Assessments Encounter Date Diagnosis (ICD Code) Assessment Notes Treatment Notes Treatment Clinical Notes 12/07/2022 Bipolar 2 disorder (ICD-10 - F31.81) hypomanic episode 02/08/2023 Bipolar 2 disorder (ICD-10 - F31.81) hypomanic episode 04/11/2023 Bipolar 2 disorder (ICD-10 - F31.81) recent manic episode 04/25/2023 Bipolar disorder, current episode manic without psychotic features, moderate (ICD-10 - F31.12) 04/26/2023 Bipolar 2 disorder (ICD-10 - F31.81) recent manic episode 05/25/2023 Bipolar 2 disorder (ICD-10 - F31.81) recent manic episode 06/07/2023 Bipolar 2 disorder (ICD-10 - F31.81) recent manic episode 06/08/2023 Bipolar 2 disorder (ICD-10 - F31.81) recent manic episode 06/22/2023 Bipolar 2 disorder (ICD-10 - F31.81) recent manic episode 07/05/2023 Bipolar 2 disorder (ICD-10 - F31.81) recent manic episode 08/09/2023 Bipolar 2 disorder (ICD-10 - F31.81) recent manic episode 09/01/2023 Bipolar 2 disorder (ICD-10 - F31.81) recent manic episode 04/14/2023 Bipolar 2 disorder (ICD-10 - F31.81) recent manic episode 04/01/2023 Bipolar 2 disorder (ICD-10 - F31.81) hypomanic episode 03/30/2023 Bipolar 2 disorder (ICD-10 - F31.81) hypomanic episode 03/30/2023 Bipolar 2 disorder (ICD-10 - F31.81) hypomanic episode 03/22/2023 Bipolar 2 disorder (ICD-10 - F31.81) hypomanic episode 04/19/2023 Bipolar 2 disorder (ICD-10 - F31.81) recent manic episode 04/05/2023 Bipolar disorder, current episode manic without psychotic features, moderate (ICD-10 - F31.12) 07/07/2023 Bipolar 2 disorder (ICD-10 - F31.81) recent manic episode 09/22/2023 Bipolar 2 disorder (ICD-10 - F31.81) recent manic episode 08/04/2023 Bipolar 2 disorder (ICD-10 - F31.81) recent manic episode 07/21/2023 Bipolar 2 disorder (ICD-10 - F31.81) recent manic episode 07/14/2023 Bipolar 2 disorder (ICD-10 - F31.81) recent manic episode 06/28/2023 Bipolar 2 disorder (ICD-10 - F31.81) recent manic episode 06/27/2023 Bipolar 2 disorder (ICD-10 - F31.81) recent manic episode 05/02/2023 Bipolar 2 disorder (ICD-10 - F31.81) recent manic episode Continue on Seroquel 600 mg at bedtime. Monitor for abnormal movements. No evidence of brayan or hypomania at this point. Feel it's safe for him to drive daily, but discouraged nighttime driving. Can continue to utilize Klonopin half a tab at bedtime.Continue Lamictal 100 mg a day. Stop if rash occurs.Will continue off duloxetine for now as I was concerned it actually caused the brayan. Continue encouraged him to continue individual and couple therapy with Adela [facility] 07/12/2023 Other Documentation assistance provided by Shari Woodward, mariellaibing for Shakila Hicks [employer] on 07/12/2023. I have read the medical record and scribe entries. I approve the care and treatment provided to this patient as recorded by the scribe. Take benadryl 25mg 1-2 at bedtime if sleep becomes an issue stopped seroquel for now due to recent night time falls, monitor mood closely Continue Lamictal 100 mg, twice daily. Monitor for rash and stop if rash occurs, consider increasing the dose Can continue utilizing Klonopin 0.5 mg, quarter tablet as needed Continue individual and couples counseling with Roxana encouraged him to rest and return to activities he enjoys when return of energy permits 12/07/2022 Other Documentation assistance provided by micah Colbert for Shakila Hicks [facility] [employer] on 12/07/2022. I have read the medical [...] depression. Consider purchasing Happy light Verilux from [employer]. 02/08/2023 Other Documentation assistance provided by micah Colbert for Shakila Hicks [facility] [employer] on 02/08/2023. I have read the medical [...] two tablets twice daily for mental fogginess 03/22/2023 Other Documentation assistance provided by micah Colbert for Shakila Hicks [employer] on 03/22/2023. I have read the medical record and scribe entries. I approve the care and treatment provided to this patient as recorded by the scribe Decrease Cymbalta to 30 mg when he finishes present 40 mg capsulesMonitor for elevated mood and sleep changesCan utilize Seroquel 25 mg for hypomaniaWill adjust Seroquel when needed due to possible interaction with XtandiContinue Lamotrigine 100 mg BID, monitor for rash and stop if rash occursCan utilizing Klonopin 0.5 mg 1/2 tab PRN for anxiety, use sparinglyContinue engaging in pickle ball, swimming and other activities he enjoysContinue daily walks with his dog 03/30/2023 Other Documentation assistance provided by micah Colbert for Shakila Hicks [facility] [employer] on 03/30/2023. I have read the medical record and scribe entries. I approve the care and treatment provided to this patient as recorded by the scribe Take two 25 mg Seroquel in the morning continue Seroquel 100 mg at bedtime, however, we will need to bump it up if his mood continues to be elevated We may have to go inpatient if his mood is not controlled with meds Cl is quite irritable with his , has had marital issue sin the past, plans to see Roxana oneill tomorrow morning I will f/;/u in person on Tuesday call if any concerns Continue Duloxetine 30 mg continue 200 mg Lamotrigine, stop if rash occurs 04/01/2023 Other continue on se roquel 400mg at hs continue on seroquel 50mg 2 at bedtime for a total of 500mg at bedtimecontinue to take seroquel 25mg in am and middayMonitor mood closely, monitor for any abnormal movementsWill see client weekly until mood stbailizes, hoping to avoid inpatient psychiatric admissioncontinue on lamictal 100mg BID,stop if rash occursContinue on duloxetine 30mg in am but consider d/c if brayan continues or returns 04/05/2023 Other Documentation assistance provided by micah Colbert Brodzinski [employer] on 04/05/2023. I have read the medical record and scribe entries. I approve the care and treatment provided to this patient as recorded by the scribe Continue Seroquel 400 mg, one tablet and two tablets of 50 mg at bedtime, total 500 mgIncrease Seroquel from 25mg BID to 50 mg in the morning and middayMonitor mood closely, monitor for any abnormal movementscontinue on Lamictal 100 mg BID, stop if rash occursContinue Klonopin 0.5 mg twice a day for agitationContinue Duloxetine 30 mg in the morningkeep his counseling appointment with Yon Godoy on 04/08/23call with any concerns 04/11/2023 Other Documentation assistance provided by micah Colbert for Shakila Hicks [facility] [employer] on 04/11/2023. I have read the medical record and scribe entries. I approve the care and treatment provided to this patient as recorded by the scribe Continue Seroquel 800 mg at bedtimeStop Seroquel 50 mg in the morning continue on Seroquel 50 mg midday Monitor for restlessness (akathisia) and abnormal movementsContinue Lamictal 100 mg twice daily, monitor for rash and stop if rash occursContinue Klonopin 0.5 mg twice a day for agitationContinue counseling with Roxana individual and couple counselingTry to walk the dog dailyEngage in [facility] twice weekly 04/14/2023 Other Documentation assistance provided by micah Colbert for Shakila Hicks [facility] [employer] on 04/14/2023. I have read the medical record and scribe entries. I approve the care and treatment provided to this patient as recorded by the scribe Continue Seroquel 800 mg at bedtimeStop Sroquel 50 mg midday- due to day time sedationMonitor for abnormal movements and sedationContinue Lamictal 100 mg twice daily, monitor for rash and stop if rash occursContinue Klonopin 0.5 mg twice daily for agitation and anxietyContinue individual and couples counseling with RhondaEncouraged journaling so he can process his concerns with RhondaContinue walking with his dogContinue playing pickleballWill touch base with him on 04/19 to reassess his mood before he picks a rental car on all back this clinician after he speaks to his Urologist today 04/19/2023 Other Documentation assistance provided by Nora Lester, micah for Shakila Hicks [facility] [employer] on 04/19/2023. I have read the medical record and scribe entries. I approve the care and treatment provided to this patient as recorded by the scribe Continue Seroquel 400 mg one and half tablets (600 mg) at bedtimeMonitor for abnormal movementsContinue Lamictal 100 mg twice daily, monitor for rash and stop if rash occursCan use Klonopin 0.5 mg twice daily for agitation and anxietyContinue individual and couples counseling with Roxana, hold on EMDR at this time until mood is stableContinue daily walks and playing pickleballEncouraged going to [email or web address] for [employer]Can call Rosy [phone] Evita advised, drive to [employer] or his appointment to [employer] or [facility] on weekend, so he is comfortable. Reschedule his rental car appointment to next week 04/25/2023 Other Documentation assistance provided by micah Colbert for Shakila Hicks [facility] [employer] on 04/25/2023. I have read the medical record and scribe entries. I approve the care and treatment provided to this patient as recorded by the scribe Continue Seroquel 400 mg one and half tablets, total 600 mg at bedtimeMonitor for abnormal movementsContinue Lamictal 100 mg twice daily, monitor for rash and stop if rash occursCan use Klonopin 0.5 mg half tablet at bedtime forContinue individual and couples counseling with RhondaContinue daily walks and playing pickleball 04/26/2023 Other Documentation assistance provided by micah Colbert for Shakila Hicks [facility] [employer] on 04/26/2023. I have read the medical record and scribe entries. I approve the care and treatment provided to this patient as recorded by the scribe Continue Seroquel 400 mg one and half tablets, total 600 mg at bedtimeMonitor for abnormal movementsContinue Lamictal 100 mg twice daily, monitor for rash and stop if rash occursCan use Klonopin 0.5 mg half tablet at bedtime forContinue individual and couples counseling with WilmeraContinden daily walks with dogs, playing pickleball, and engaging in swimming 04/05/2023 Other Documentation assistance provided by micah Colbert for Shakila Hicks [facility] on 04/05/2023. I have read the medical record and scribe entries. I approve the care and treatment provided to this patient as recorded by the scribe 04/05/2023 Other Documentation assistance provided by micah Colbert for Shakila Hicks [facility] [employer] on 04/05/2023. I have read the medical record and scribe entries. I approve the care and treatment provided to this patient as recorded by the scribe 05/02/2023 Other Documentation assistance provided by micah Leija for Shakila Hicks [facility] on 05/02/2023. I have read the medical record and scribe entries. I approve the care and treatment provided to this patient as recorded by the scribe 05/25/2023 Other Documentation assistance provided by micah Colbert for Shakila Hicks [facility] [employer] on 05/25/2023. I have read the medical record and scribe entries. I approve the care and treatment provided to this patient as recorded by the scribe. Continue Seroquel 600 mg at bedtime, monitor for abnormal movementsWill consider decreasing dose to 500 mg when Evita comes back from [place], so she can monitor Nain carrilloCan call if there are any questions or concerns while tapering down on SeroquelContinue Lamictal 100 mg, monitor for rash and stop if rash occursContinue Klonopin 0.5 mg quater tablet at bedtimeContinue individual and couples therapy with Roxana Duke engaging in pickleball, swimming and regular walks 06/07/2023 Other Documentation assistance provided by micah Colbert for Shakila Hicks [facility] [employer] on 06/07/2023. I have read the medical record and scribe entries. I approve the care and treatment provided to this patient as recorded by the scribe. Start Duloxetine 20 mg once dailyContinue Seroquel 600 mg at bedtime, monitor for abnormal movementsWill consider increasing dose if he continues to have depressionConsider Mirtazapine in the future for depressionContinue Lamictal 100 mg, twice daily. Monitor for rash and stop if rash occursCan continue utilizing Klonopin 0.5 mg, quarter tablet as neededContinue individual and couples counseling with Michaelould benefit from processing unresolved grief with Nahed engaging in pickleball, swimming, and walking his dogs 06/22/2023 Other Documentation assistance provided by micah Anderson for Shakila Hicks [facility] [employer] on 06/22/2023. I have read the medical record and scribe entries. I approve the care and treatment provided to this patient as recorded by the scribe. Continue Duloxetine 20 mg once daily Continue Seroquel 600 mg at bedtime, monitor for abnormal movements Continue Lamictal 100 mg, twice daily. Monitor for rash and stop if rash occurs Can continue utilizing Klonopin 0.5 mg, quarter tablet as needed Continue individual and couples counseling with Roxana Continue writing and walking his dogs. 06/28/2023 Other Documentation assistance provided by micah Anderson for Shakila Hicks [facility] [employer] on 06/28/2023. I have read the medical record and scribe entries. I approve the care and treatment provided to this patient as recorded by the scribe. Continue Seroquel 400 mg at bedtime, monitor for abnormal movements Continue Lamictal 100 mg, twice daily. Monitor for rash and stop if rash occurs Can continue utilizing Klonopin 0.5 mg, quarter tablet as needed Continue individual and couples counseling with Roxana 07/05/2023 Other Documentation assistance provided by micah Anderson for Shakila Hicks [facility] [employer] on 07/05/2023. I have read the medical record and scribe entries. I approve the care and treatment provided to this patient as recorded by the scribe. stop seroquel for now due to recent night time falls, monitor mood closely Continue Lamictal 100 mg, twice daily. Monitor for rash and stop if rash occurs Can continue utilizing Klonopin 0.5 mg, quarter tablet as needed Continue individual and couples counseling with Roxana 07/07/2023 Other Documentation assistance provided by micah Anderson for Shakila Hicks [facility] on 07/07/2023. I have read the medical record and scribe entries. I approve the care and treatment provided to this patient as recorded by the scribe. Take benadryl 25mg 1-2 at bedtime if sleep becomes an issue stopped seroquel for now due to recent night time falls, monitor mood closely Continue Lamictal 100 mg, twice daily. Monitor for rash and stop if rash occurs, consider increasing the dose Can continue utilizing Klonopin 0.5 mg, quarter tablet as needed Continue individual and couples counseling with Roxana encouraged him to rest and return to activities he enjoys when return of energy permits 07/14/2023 Other Documentation assistance provided by micah Anderson for Shakila Hicks [facility] [employer] on 07/14/2023. I have read the medical record and scribe entries. I approve the care and treatment provided to this patient as recorded by the scribe. Take benadryl 25mg 1-2 at bedtime if sleep becomes an issue stopped seroquel for now due to recent night time falls, monitor mood closely Continue Lamictal 100 mg, twice daily. Monitor for rash and stop if rash occurs, consider increasing the dose Can continue utilizing Klonopin 0.5 mg, quarter tablet as needed Continue individual and couples counseling with Roxana encouraged him to rest and return to activities he enjoys when return of energy permits 07/21/2023 Other Documentation assistance provided by micah Anderson for Shakila Hicks [facility] [employer] on 07/21/2023. I have read the medical record and scribe entries. I approve the care and treatment provided to this patient as recorded by the scribe Take benadryl 25mg 1-2 at bedtime if sleep becomes an issue stopped seroquel for now due to recent night time falls, monitor mood closely Continue Lamictal 100 mg,but increase the dose to 1 1/2 tab in am and 1 tab at hs . 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 I have read the medical record and scribe entries. I approve the care and treatment provided to this patient as recorded by the scribe. stopped seroquel for now due to recent night time falls, monitor mood closely continue on duloxetine 20mg in am Increase Lamictal to 150 mg,twice a day . Monitor for rash and stop if rash occurs Can continue utilizing Klonopin 0.5 mg, quarter tablet as needed start flexeril prescribed by PCP, and keep F/U with PT recommend he not drive if he takes the flexeril or klonopin Continue individual and couples counseling with Roxana, is going to retire will refer to [facility] encouraged him to continue walking his dog daily , continue paying pickle ball couple times a week, consider returning to swimming during the week 09/01/2023 Other Documentation assistance provided by micah Anderson for Shakila Hicks [facility] BRICK CHIMNEY BUILDER-C LAND CHECKER on 09/01/2023. I have read the medical record and scribe entries. I approve the care and treatment provided to this patient as recorded by the scribe continue on duloxetine but increase to 30mg in am, monitor mood , monitor for brayan continue on Lamictal to 150 mg, once day Could consider increasing the dose . Monitor for rash and stop if rash occurs Can continue utilizing Klonopin 0.5 mg, quarter tablet as needed Continue individual and couples counseling with Roxana, is going to retire will refer to [facility] encouraged him to continue walking his dog daily , continue paying pickle ball couple times a week, consider returning to swimming during the week 09/22/2023 Other Documentation assistance provided by micah Anderson for Shakila Kurt [employer] BRICK CHIMNEY BUILDER-C KENNY on 09/22/2023. I have read the medical [...] is going to retire will refer to [facility] encouraged him to continue walking his dog daily , continue paying pickle ball couple times a week, consider returning to swimming during the week Plan Of Treatment Next Appt Details Provider Name:Shakila Rosenberg Cuong landa, 11/02/2023 01:30:00 PM, [address] [place] [address], [phone], Insurance Providers Payer Name Payer Address Payer Phone Subscriber Number Group Number Insured Name Patient Relationship to Insured Coverage Start Date Coverage End Date MEDICARE FQHC [address] [place], [place] [id number] Nain Mckeon Self - patient is the insured [facility] MEDICARE SUPPLEMENT [address] [place] [phone] [id number] Cipriano Mckeony Self - patient is the insured Medical (General) History Medical History History ICD Code Bipolar 2 Disorder Hypothyroidism 2020 CPE Tardive Dyskinesia, neuroleptic induced Insomnia Hyperlipidemia Psoriasis Obesity Part Medications, Klonopin, Sertraline, Cymbalta, Remeron, Tricylics, Olanzapine, Abilify, Vraylar, Rexulti, Geodon, Mcmurray, Risperdal Cancer- Prostate BRCA 2 Gene Mutation po sitive Surgical History Surgery Date(Month/Year) Radical Prostatectomy Hospitalization History Reason Date(Month/Year) Depression- [facility] 2019 [place]- [facility] [place] Depression- [facility] [place]
--- OUTSIDE RECORDS SUMMARY | 2023-10-12 02:41 | XMS_ITS ---
Author Organization [facility] Address [address] [place] [phone] Care Team Providers Care Superintendent Of Schools Name Role Phone Shakila Hicks Primary Care Provider REASON FOR VISIT refills Medications Medication SIG (Take, Route, Fr equency, Duration) Notes Start Date End Date Status lamoTRIgine 150 MG 1 tablet Orally Once a day for 30 days 08/04/2023 Active KlonoPIN 0.5 MG 1/2 tablet Orally at bedtime for 30 days take for anxiety 08/09/2023 Active Encounters Encounter Location Date Provider Diagnosis [address] [phone] 08/09/2023 Shakila Hicks Bipolar 2 disorder F31.81 Assessments Encounter Date Diagnosis (ICD Code) Assessment Notes Treatment Notes Treatment Clinical Notes 08/09/2023 Bipolar 2 disorder (ICD-10 - F31.81) recent manic episode Plan Of Treatment Medication Medication Name Sig Start Date Stop Date Notes lamoTRIgine 150 MG 1 tablet Orally Once a day for 30 days 08/04/2023 KlonoPIN 0.5 MG 1/2 tablet Orally at bedtime for 30 days 08/09/2023 Next Appt Details Provider Name:Shakila landa, 11/02/2023 01:30:00 PM, [address] [place] [address], [phone], Progress Notes * Nain LIPSCOMBDOB:1950 (72 yo M)Acc No.[id number]:08/09/2023 Patient:?Nain LIPSCOMB :1950???Age:72 Y???Sex:Male Address:[address] [place] [address] * Refills? Refill lamoTRIgine Tablet, 150 MG, Orally, 30, 1 tablet, Once a day, 30 days, Refills=5 Refill KlonoPIN Tablet, 0.5 MG, Orally, 15, 1/2 tablet, at bedtime, 30 days, Refills=3 * true * Date:? Generated for Arturo macedo/Lev/Geovannysmitting on:?10/12/2023 02:40 AM EDT
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
--- OUTSIDE RECORDS SUMMARY | 2023-10-12 02:42 | XMS_ITS | Encounter Summary ---
Author Organization [facility] Address [address] [place] [address] Care Team Providers Care Starch Mangle Tender Name Role Phone Celio Sanders MD Primary Care Provider [phone] Encounter Details Date Type Department Care Team (Late st Contact Info) Description 01/31/2019 Lab Requisition [facility] Pathology & Laboratory Medicine - [facility] [address] [place] [address] Unknown, Provider, Social History Tobacco Use Types Packs/Day Years Used Date Smoking Tobacco: Never Assessed Sex and Gender Information Value Date Recorded Sex Assigned at Not on file Gender Identity Not on file Sexual Orientation Not on file documented as of this encounter Plan of Treatment Not on file documented as of this encounter Procedures Procedure Name Priority Date/Time Associated Diagnosis Comments PSA TOTAL, DIAGNOSTIC Routine 01/31/2019 11:20 EST documented in this encounter Results * PSA TOTAL, DIAGNOSTIC (01/31/2019 11:20 EST) PSA <0.1 0.0 - 6.5 ng/mL 02/02/2019 8:39 EST [facility] Comment: NOTE: Serum PSA concentration should not be interpreted as absolute evidence for the presence or absence of malignant disease. Assayed on Siemens ADVIA Centaur XPT using chemiluminescent technology. ??Values obtained by using different assay methods cannot be used interchangeably. Blood VENOUS BLOOD / Unknown 01/31/2019 11:20 EST 01/31/2019 16:09 EST Provider Unknown CHEMISTRY & BLOOD GA S ORDERABLES [facility] [address] [place] [address] documented in this encounter Visit Diagnoses Not on filedocumented in this encounter Care Teams Starch Mangle Tender Relationship Specialty Start Date End Date Celio Sanders MD [address] [place], [place] [phone] PCP - General 04/30/16 documented as of this encounter
--- OUTSIDE RECORDS SUMMARY | 2023-10-12 02:42 | XMS_ITS | Encounter Summary ---
Author Organization [facility] Address [address] [place] [address] Care Team Providers Care Accounts Receivable Administrator Name Role Phone Celio Sanders MD Primary Care Provider [phone] Encounter Details Date Type Department Care Team (Late st Contact Info) Description 10/13/2020 Lab Requisition [facility] Pathology & Laboratory Medicine - [facility] [address] [place], [place] [address] Outr Resulting Lab, Provider Social History Tobacco Use Types Packs/Day Years Used Date Smoking Tobacco: Never Assessed Interpersonal Safety Answer Date Record ed Physically Hurt Never 11/25/2019 Verbally Threaten Not on file 11/25/2019 Sex and Gender Information Value Date Recorded Sex Assigned at Not on file Gender Identity Not on file Sexual Orientation Not on file documented as of this encounter Plan of Treatment Not on file documented as of this encounter Procedures Procedure Name Priority Date/Time Associated Diagnosis Comments T3 FREE Routine 10/13/2020 11:00 EDT documented in this encounter Results * (ABNORMAL) T3 FREE (10/13/2020 11:00 EDT) T3, Free 2.5(L) 2.8 - 5.3 pg/mL 10/13/2020 16:07 EDT [facility] Blood VENOUS BLOOD / Unknown 10/13/2020 11:00 EDT 10/13/2020 15:36 EDT Provider Outr Resulting Lab CHEMISTRY & BLOOD GAS ORDERABLES [facility] [address] [place] [address] documented in this encounter Visit Diagnoses Not on filedocumented in this encounter Care Teams Accounts Receivable Administrator Relationship Specialty Start Date End Date Celio Sanders MD [address] [place], [place] [id number] PCP - General 04/30/16 documented as of this encounter
--- OUTSIDE RECORDS SUMMARY | 2023-10-12 02:42 | XMS_ITS | Encounter Summary ---
Author Organization [facility] Address [facility] [place] [address] Care Team Providers Care Sustain Engineer Name Role Phone Celio Sanders MD Primary Care Provider [phone] Encounter Details Date Type Department Care Team (Late st Contact Info) Description 03/02/2023 Orders Only Hematology/Oncology at [address] [phone] Bisi Cheng APRN [facility] [place] [address] Prostate cancer metastatic to intrapelvic lymph node; Malignant neoplasm of prostate Social History Tobacco Use Types Packs/Day Years Used Date Smoking Tobacco: Never Smokeless Tobacco: Never Alcohol Use Standard Drinks/Week Comments Not Currently 0 (1 standard drink = 0.6 oz pur e alcohol) beer and wine twice a month [facility] Utilities Answer Date Recorded In the past 12 months has [employer], gas, oil, or water [employer] threatened to shut off services in your home? No 02/15/2023 Overall Financial Resource Strain (CARDIA) Answe r Date Recorded How hard is it for you to pa y for the very basics like food, housing, medical care, and heating? Not hard at all 02/15/2023 Hunger Vital Sign Answer Date Recorded Within the past 12 months, y ou worried that your food would run out before you got the money to buy more. Never true 02/16/20 23 Ran Out of Food in the Last Year Not on file 02/15/2023 PRAPARE - Transportation Answer Date Re corded In the past 12 months, has l ack of transportation kept you from medical appointments or from getting medications? No 02/04 In the past 12 months, has l ack of transportation kept you from meetings, work, or from getting things needed for daily living? No 02/15/2023 Housing Stability Vital Sign Answer Greg e Recorded In the last 12 months, was t here a time when you were not able to pay the mortgage or rent on time? No 02/15/2023 In the last 12 months, how many places have you lived? 1 02/15/2023 In the last 12 months, was t here a time when you did not have a steady place to sleep or slept in a usp (including now)? No 02/15/2023 Sex and Gender Information Value Date Recorded Sex Assigned at Not on file Gender Identity Not on file Sexual Orientation Not on file documented as of this encounter Plan of Treatment Upcoming Encounters Date Type Department Care Team (Late st Contact Info) Description 10/24/2023 1:30 PM EDT Office Visit Hematology/Oncology at [address] [phone] Bisi Cheng APRN [facility] [place] [address] Scheduled Orders Name Type Priority Associated Diagnoses Orde r Schedule CBC (with Diff) Lab Routine Prostate cancer metastatic to intrapelvic lymph node Malignant neoplasm of prostate Expected: 03/09/2023, Expires: 09/08/2023 Comprehensive metabolic panel (non-fasting) Lab Routine Prostate cancer metastatic to intrapelvic lymph node Malignant neoplasm of prostate Expected: 03/09/2023, Expires: 09/08/2023 PSA (Ultrasensitive) Lab Routine Prostate cancer metastatic to intrapelvic lymph node Malignant neoplasm of prostate Expected: 03/09/2023, Expires: 09/08/2023 Testosterone, total Lab Routine Prostate cancer metastatic to intrapelvic lymph node Malignant neoplasm of prostate Expected: 03/09/2023, Expires: 09/08/2023 documented as of this encounter Visit Diagnoses Diagnosis Prostate cancer metastatic to intrapelvic lymph node Malignant neoplasm of prostate documented in this encounter Care Teams Sustain Engineer Relationship Specialty Start Date End Date Celio Sanders MD [address] [place] [id number] PCP - General Internal Medicine 05/19/16 documented as of this encounter
--- OUTSIDE RECORDS SUMMARY | 2023-10-12 02:42 | XMS_ITS | Encounter Summary ---
Author Organization [facility] Address [facility] [place] [address] Care Team Providers Care Car Wiper Name Role Phone Celio Sanders MD Primary Care Provider [phone] Reason for Visit * Reason Onset Date Comments Other 04/14/2023 Encounter Details Date Type Department Care Team (Late st Contact Info) Description 04/14/2023 Telephone Hematology/Oncology at [address] [phone] Caio Venegas RN Other Social History Tobacco Use Types Packs/Day Years Used Date Smoking Tobacco: Never Smokeless Tobacco: Never Alcohol Use Standard Drinks/Week Comments Not Currently 0 (1 standard drink = 0.6 oz pur e alcohol) beer and wine twice a month [facility] Utilities Answer Date Recorded In the past 12 months has [employer], gas, oil, or water company threatened to shut off services in your [...] place to sleep or slept in a senior living (including now)? No 02/15/2023 Sex and Gender Information Value Date Recorded Sex Assigned at Not on file Gender Identity Not on file Sexual Orientation Not on file documented as of this encounter Miscellaneous Notes * Telephone Encounter - Caio Venegas RN - 04/15/2023 8:30 AM EST Called and spoke with Nain Mckeon to inform him of what Dr Snyder advised. Pt is in agreement to hold Xtandi until he is seen back in clinic. He is aware his appointment is 04/26/23. He was thankful for the follow up and will call in the interim with any further questions or concerns. * Telephone Encounter - Caio Venegas RN - 04/14/2023 2:33 PM EST Nain Mckeon called to report he was recently seen at [facility] ED after collapsing at local grocery. ED visit scanned in. He had been having manic episodes. He did say he saw therapist since his ED visit. 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 He would like Dr Snyder to weight in on this, ?has he seen it before, ?could he have it and it be caused by Xtandi. Message sent to provider per pt request. documented in this encounter Plan of Treatment Upcoming Encounters Date Type Department Care Team (Late st Contact Info) Description 10/24/2023 1:30 PM EDT Office Visit Hematology/Oncology at [address] [phone] Bisi Cheng APRN [facility] [place] [address] documented as of this encounter Visit Diagnoses Not on filedocumented in this encounter Care Teams Car Wiper Relationship Specialty Start Date End Date Celio Sanders MD [address] [place] [address] PCP - General Internal Medicine 05/19/16 documented as of this encounter
--- OUTSIDE RECORDS SUMMARY | 2023-10-12 02:42 | XMS_ITS | Encounter Summary ---
[place] [address] Care Team Providers Care Senior Research Analyst Name Role Phone Celio Sanders MD Primary Care Provider [phone] Reason for Visit * Reason Comments Injections IM Lupron * Treatment/Therapy Plan Authorization (Routine) - Authorized Specialty Diagnoses / Procedures Referred By Contac t Referred To Contact Hematology and Oncology Diagnoses Recurrent prostate cancer Procedures TC LEUPROLIDE ACETATE 7.5MG, FOR DEPOST SUSPENSION (LUPRON DEPOT) Ronnie Vazquez MD [address] [place] [address] [place] [address] [facility] Infusion [address] [place] [address] Referral ID Status Reason Start Date Expiration Date V isits Requested Visits Authorized [id number] Authorized 02/17/2023 02/17/2024 1 103 Encounter Details Date Type Department Care Team (Late st Contact Info) Description 03/01/2023 11:30 AM EST Infusion Hematology Oncology at [address] [phone] Recurrent prostate cancer Social History Tobacco Use Types Packs/Day Years Used Date Smoking Tobacco: Never Smokeless Tobacco: Never Alcohol Use Standard Drinks/Week Comments Not Currently 0 (1 standard drink = 0.6 oz pur e alcohol) beer and wine twice a month [facility] Utilities Answer Date Recorded In the past 12 months has [employer], gas, oil, or water company threatened to [...] place to sleep or slept in a fdc (including now)? No 02/15/2023 Sex and Gender Information Value Date Recorded Sex Assigned at Not on file Gender Identity Not on file Sexual Orientation Not on file documented as of this encounter Last Filed Vital Signs Vital Sign Reading Time Taken Comments Blood Pressure 120/56 03/01/2023 11:54 AM EST Pulse 79 03/01/2023 11:54 AM EST Temperature 36.1 ??C (97 ??F) 03/01/2023 11:54 AM EST Respiratory Rate 18 03/01/2023 11:54 AM EST Oxygen Saturation 97% 03/01/2023 11:54 AM EST Inhaled Oxygen Concentration - - Weight 83.9 kg (185 lb) 03/01/2023 11:54 AM EST Height 161.9 cm (5' 3.74) 03/01/2023 11:[address] Body Mass Index 32.01 03/01/2023 11:54 AM EST documented in this encounter Progress Notes * Jennifer Ferrera, RN - 03/01/2023 11:30 AM EST Infusion Note Diagnosis:Prostate Cancer Treatment: Lupron Injection Lupron 7.5 mg injected in right buttocks Patient instructed on side effects of Lupron. Patient states understanding of teaching, Patient aware to call clinic with any questions or concerns. Plan: Return to clinic as scheduled. documented in this encounter Plan of Treatment Upcoming Encounters Date Type Department Care Team (Late st Contact Info) Description 10/24/2023 1:30 PM EDT Office Visit Hematology/Oncology at [address] [phone] Bisi Cheng APRN [facility] [place] [address] documented as of this encounter Visit Diagnoses Diagnosis Recurrent prostate cancer documented in this encounter Administered Medications Inactive Administered Medications - up to 3 most recent administrations Medication Order MAR Action Action Date Dose Rate Site leuprolide (Lupron Depot) injection 7.5 mg 7.5 mg, Intramuscular, ONCE, 1 dose, On Tue03/01/23 at 1215, Routine, This agent is restricted to outpatient use. Is this drug being given as an outpatient? Yes Given 03/01/2023 12:01 PM EST 7.5 mg Right Gluteal documented in this encounter Care Teams Senior Research Analyst Relationship Specialty Start Date End Date Celio Sanders MD [address] [place] [address] PCP - General Internal Medicine 05/19/16 documented as of this encounter
--- OUTSIDE RECORDS SUMMARY | 2023-10-12 02:42 | XMS_ITS | Clinical Summary ---
Author Organization [facility] Address [address] [place] [address] Care Team Providers Care Counter Supply Worker Name Role Phone Celio Sanders MD Primary Care Provider [phone] Social History Tobacco Use Types Packs/Day Years Used Date Smoking Tobacco: Never Assessed Interpersonal Safety Answer Date Record ed Physically Hurt Never 11/25/2019 Verbally Threaten Not on file 11/25/2019 Sex and Gender Information Value Date Recorded Sex Assigned at Not on file Gender Identity Not on file Sexual Orientation Not on file Plan of Treatment Health Maintenance Due Date Last Done Comments Hepatitis C Screen 1950 RSV Immunization ( o r 60+ Years) (1 - 1-dose 60+ series) 2008 Fall Risk Screening 2013 COVID-19 Vaccine (2022- season) 2022 Care Teams Counter Supply Worker Relationship Specialty Start Date End Date Celio Sanders MD [address] [place] [address] PCP - General 04/30/16
--- OUTSIDE RECORDS SUMMARY | 2023-10-12 02:42 | XMS_ITS | Encounter Summary ---
Author Organization [facility] Address [facility] [place] [address] Care Team Providers Care Office Administrator Name Role Phone Celio Sanders MD Primary Care Provider [phone] Encounter Details Date Type Department Care Team (Late st Contact Info) Description 02/17/2023 Orders Only Radiation Oncology at [address] [phone] Ronnie Vazquez MD [address] [place] [address] DR RADIATION ONCOLOGY [place], [place] [id number] Social History Tobacco Use Types Packs/Day Years Used Date Smoking Tobacco: Never Smokeless Tobacco: Never Alcohol Use Standard Drinks/Week Comments Not Currently 0 (1 standard drink = 0.6 oz pur e alcohol) beer and wine twice a month [facility] Utilities Answer Date Recorded In the past 12 months has [email or web address], gas, oil, or water [employer] threatened to shut off services in your [...] 1:30 PM EDT Office Visit Hematology/Oncology at [address] [phone] Bisi Cheng APRN [facility] [place] [address] documented as of this encounter Visit Diagnoses Not on filedocumented in this encounter Care Teams Office Administrator Relationship Specialty Start Date End Date Celio Sanders MD [address] [place] [address] PCP - General Internal Medicine 05/19/16 documented as of this encounter
--- OUTSIDE RECORDS SUMMARY | 2023-10-12 02:42 | XMS_ITS ---
Author Organization [facility] Address [facility] [place] [address] Care Team Providers Care Mold Cleaning And Storage Supervisor Name Role Phone Celio Sanders MD Primary Care Provider Active Problems Problem Noted Date Diagnosed Date Toxic encephalopathy 08/06/2017 Bipolar disorder, current ep isode manic without psychotic features, moderate 08/06/2017 Bipolar II disorder 07/27/2017 Hypothyroidism 07/27/2017 Hyperlipidemia 07/27/2017 Hx of appendectomy 07/27/2017 Hx laparoscopic cholecystectomy 07/27/2017 Prostate cancer metastatic to intrapelvic lymph node 07/07/2016 Recurrent prostate cancer 07/07/2016 Foreign travel 01/26/2011 Current Oncology Plans Leuprolide (Lupron Depot) injection ([facility] [place])* Plan Start Date:03/01/2023 Plan Provider:Ronnie Vazquez MD Linked Problems Recurrent prostate cancer Treatment Medications No medications scheduled. Past Plans Therapy Plan 1 Plan Name Start Date Discontinue Date Treatment Medications Discontinue Reason Plan Provider ?LEUPR OLIDE (LUPRON) 22.5 MG EVERY 3 MONTH 11/15/2017 04/26/2023 No medications scheduled. Plan is Being Renewed Remy Barillas MD Therapy Plan 2 Plan Name Start Date Discontinue Date Treatment Medications Discontinue Reason Plan Provider Degarelix (Firmagon) Injection ([facility] HemOnc) New Patient Induction 02/03/2023 04/26/2023 No medications scheduled. Therapy Complete Ronnie Vazquez MD Radiation Treatments * No radiation treatments are documented for this patient in Epic. Treatments may have been administered in another system.
--- OUTSIDE RECORDS SUMMARY | 2023-10-12 02:42 | XMS_ITS | Encounter Summary ---
Author Organization [facility] Address [facility] [place] [address] Care Team Providers Care Hi Lo Driver Name Role Phone Celio Sanders MD Primary Care Provider [phone] Encounter Details Date Type Department Care Team (Late st Contact Info) Description 02/17/2023 Orders Only Radiation Oncology at [address] [phone] Ronnie Vazquez MD [address] [place] [address] DR RADIATION ONCOLOGY [place], [place] [id number] Social History Tobacco Use Types Packs/Day Years Used Date Smoking Tobacco: Never Smokeless Tobacco: Never Alcohol Use Standard Drinks/Week Comments Not Currently 0 (1 standard drink = 0.6 oz pur e alcohol) beer and wine twice a month [facility] Utilities Answer Date Recorded In the past 12 months has [employer], gas, oil, or water [employer] threatened to shut off services in your [...] 1:30 PM EDT Office Visit Hematology/Oncology at [address] [phone] Bisi Cheng APRN [facility] [place] [address] documented as of this encounter Visit Diagnoses Not on filedocumented in this encounter Care Teams Hi Lo Driver Relationship Specialty Start Date End Date Celio Sanders MD [address] [place] [address] PCP - General Internal Medicine 05/19/16 documented as of this encounter
--- OUTSIDE RECORDS SUMMARY | 2023-10-12 02:42 | XMS_ITS | Encounter Summary ---
Author Organization [facility] Address [facility] [place] [address] Care Team Providers Care Water Supply Engineer Name Role Phone Celio Sanders MD Primary Care Provider [phone] Reason for Visit * Reason Comments Prior Authorization Xtandi Encounter Details Date Type Department Care Team (Late st Contact Info) Description 02/22/2023 Specialty [place] [phone] Sam Antonio, [facility] Social History Tobacco Use Types Packs/Day Years Used Date Smoking Tobacco: Never Smokeless Tobacco: Never Alcohol Use Standard Drinks/Week Comments Not Currently 0 (1 standard drink = 0.6 oz pur e alcohol) beer and wine twice a month [facility] Utilities Answer Date Recorded In the past 12 months has e electric, gas, oil, or water company threatened [...] place to sleep or slept in a halfway (including now)? No 02/15/2023 Sex and Gender Information Value Date Recorded Sex Assigned at Not on file Gender Identity Not on file Sexual Orientation Not on file documented as of this encounter Progress Notes * Sam Antonio - 02/22/2023 12:44 PM EST [facility], Medication Prior Authorization Submission Patient: Nain Mckeon Patient : [id number] Patient Address[address] [address] [place], [place] [phone] (home) Medication Name: XTANDI 40 MG TABLET Medication ID: Subscriber Insurance: [employer] ([employer]) Subscriber Insurance Comment: Phone: [phone] Fax: Physician: AUGUSTINE RUFFIN Physician Comment: Sent Via: Fax Daley: Ref/Case/PA#: Medication Strength Frequency Requested: Take 4 tablets by mouth daily Qty/Day Supply: 120/30 New Start: New to Therapy Diagnosis & ICD-10 Code: C61 - Prostate Cancer Patient Notified: No Submission Notes: Karlo Antonio 02/22/23 12:46 PM * Sam Antonio - 02/22/2023 12:44 PM EST [facility], Prior Authorization Approval Medication Name: XTANDI 40 MG TABLET Medication ID: Approval Dates: 02/22/2023 to 02/22/2024 Insurance requirements/notes: None Other Notes: None Case/Reference #: Approval notification Received via: Fax Copay: $[phone] Copay assistance: Other (Enter Comment) Copay Notes: PT has a high copay - PT will need to fill with [facility] Insurance mandated Pharmacy: Fillable at [facility]: Yes Patient Notified: No Pharmacy staff will be reaching out to the patient to inform them of their medication's approval [facility] insurance. If applicable, a pharmacist will speak with the patient to offer our specialty pharmacy services and to arrange delivery of their medication. Sam Antonio 02/23/23 8:05 AM documented in this encounter Plan of Treatment Upcoming Encounters Date Type Department Care Team (Late st Contact Info) Description 10/24/2023 1:30 PM EDT Office Visit Hematology/Oncology at [address] [phone] Bisi Cheng APRN [facility] [place] [address] documented as of this encounter Visit Diagnoses Not on filedocumented in this encounter Care Teams Water Supply Engineer Relationship Specialty Start Date End Date Celio Sanders MD [address] [place] [address] PCP - General Internal Medicine 05/19/16 documented as of this encounter
--- OUTSIDE RECORDS SUMMARY | 2023-10-12 02:42 | XMS_ITS | Data Portability ---
Author Organization [place] - [facility] Address [address] [place] [address] Assessment No assessment recorded. Plan of Treatment Reminders Order Date Submit Date Provider Last Modified By Organization Details Last Modified Time Details Appointments Annual Chronic Care (65+) 30 2023 02:10P M DEWAYNE JOHNSON Not available Not available Not available Lab urinalysi s, dipstick 2023 024 [email or web address] [facility], [address] [place] [address], [address], [place], [address], 07/02/2023 12:50:28 culture, urine 2023 024 [facility] (Registration ), [address] [place] [address] [place], [address], 07/04/2023 08:41:06 microscop ic method, urine 2023 024 [facility] (Registration ), [address] [place] [address] , [place], [address], 07/04/2023 08:40:48 Referral physical therapist referral 2023 024 [facility], [address], [place], [address], 08/31/2023 11:47:52 Procedures None recorded. Surgeries None recorded. Imaging None recorded. Medication Orders Flonase Allergy Relief 50 mcg/actua tion nasal spray,mayra pension 2023 024 EMERSON [facility], [address] [place], [address], 05/05/2023 11:41:51 levofloxa tracy 750 mg tablet 2023 024 aureilo [facility], [address] [place], [address], 08/03/2023 11:17:49 metronida zole 500 mg tablet 2023 024 aurelio [facility], [address] [place], [address], 08/03/2023 11:17:49 cyclobenz aprine 10 mg tablet 2023 024 aurelio [facility], [address] [place], [address], 08/07/2023 12:47:14 Patient TargetsNo targets recorded. Patient Instructions Encounter Date Encounter Id Patient Instructions Last Modified By Organization Details Last Modified Time 05/05/2023 [id number] learning about healthy weight [email or web address] Not available 05/05/2023 13:38:31 07/02/2023 [id number] 1. There is a infection in the gums concerning for abscess. We have attempted to drain it with much of it today as we can. You are now started on 2 antibiotics being levofloxacin 750 mg which she will take once a day for total of 10 days as well as metronidazole 500 mg which she will take every 8 hours for total of 10 days. 2. Please be aware it can take 24 to 48 hours of being on this medication before you see improvement. You can even see a little bit of worsening in that timeframe. Any significant sudden worsening however indicates need to go to the emergency department for reevaluation and likely CT scan and IV medications. 3. I am concerned that your urine also is infected. The levofloxacin you are being started on for your dental infection will cover if there is urinary tract infection as well. Urine culture is going to be sent for additional testing and will take 2 days to result. We will call you on Tuesday to review findings and see how you are doing. 4. Please make sure you follow-up with your oncology team and let them know what has occurred today. Please also asked them about clarification on appropriate use as far as your frequency and number of days for the Azo. 5. It is unclear at this time if your unsteadiness is related to the Seroquel or could be possibly related to dental and or urinary tract infection. Once we address these 2 infections if the unsteadiness is continuing it may be reasonable to decrease the Seroquel. Please speak with your provider regarding this. 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 Ingr owing toenail Referring Physician: Dewayne Johnson [facility], Encounter Date: 03/21/2023 Physical Therapist Referral for Tension-type headache Referring Physician: Dewayne Johnson [facility], Encounter Date: 08/03/2023 Results Created Date Observation Date Name Description Value Unit Range Abnormal Flag LastModifiedBy Organization Detail LastModifiedTime 04/01/19 24 04/01/2023 COMPL ETE BLOOD COUNT W/DIF F WBC 10.60 10_3/ uL 4.4-10 .8 normal Not Available [address] [place], [address] 04/01/2023 18:21:40 04/01/19 24 04/01/2023 COMPL ETE BLOOD COUNT W/DIF F RBC 4.23 10_6/ uL 4.36-5 .78 low Not Available [address] [place], [address] 04/01/2023 18:21:40 04/01/1904/01/2023 COMPL ETE BLOOD COUNT W/DIF F HGB 13.0 g/dL 13.5-1 7.5 low Not Available [address] [place], [address] 04/01/2023 18:21:40 04/01/19 24 04/01/2023 COMPL ETE BLOOD COUNT W/DIF F HCT 38.0 % 40.0-5 0.0 low Not Available [address] [place], [address] 04/01/2023 18:21:40 04/01/19 24 04/01/2023 COMPL ETE BLOOD COUNT W/DIF F MCV 90 fL 80-95 normal Not Available Shayan bradford [address] [place], [address] 04/01/2023 18:21:40 04/01/19 24 04/01/2023 COMPL ETE BLOOD COUNT W/DIF F MCH 30.7 pg 27.0-3 3.0 normal Not Available [address] [place], [address] 04/01/2023 18:21:40 04/01/19 24 04/01/2023 COMPL ETE BLOOD COUNT W/DIF F MCHC 34.2 % 32.0-3 6.0 normal Not Available [address] [place], [address] 04/01/2023 18:21:40 04/01/19 24 04/01/2023 COMPL ETE BLOOD COUNT W/DIF F RDW 13.0 % 11.8-1 4.1 normal Not Available [address] [place], [address] 04/01/2023 18:21:40 04/01/19 24 04/01/2023 COMPL ETE BLOOD COUNT W/DIF F platelet count 385 10_3/ uL 130-40 0 normal Not Available [address] [place], [address] 04/01/2023 18:21:40 04/01/19 24 04/01/2023 COMPL ETE BLOOD COUNT W/DIF F MPV 8.5 fL 8.0-11 .0 normal Not Available [address] [place], [address] 04/01/2023 18:21:40 04/01/19 24 04/01/2023 COMPL ETE BLOOD COUNT W/DIF F neutrophils % 81.1 Not Available [address] [place], [address] 04/01/2023 18:21:40 04/01/19 24 04/01/2023 COMPL ETE BLOOD COUNT W/DIF F lymphocytes % 13.7 Not Available [address] [place], [address] 04/01/2023 18:21:40 04/01/19 24 04/01/2023 COMPL ETE BLOOD COUNT W/DIF F monocytes % 4.4 Not Available [address] [place], [address] 04/01/2023 18:21:40 04/01/19 24 04/01/2023 COMPL ETE BLOOD COUNT W/DIF F eosinophils % 0.1 Not Available [address] [place], [address] 04/01/2023 18:21:40 04/01/19 24 04/01/2023 COMPL ETE BLOOD COUNT W/DIF F basophils % 0.4 Not Available [address] [place], [address] 04/01/2023 18:21:40 04/01/19 24 04/01/2023 COMPL ETE BLOOD COUNT W/DIF F immature grans % 0.3 Not Available [address] [place], [address] 04/01/2023 18:21:40 04/01/19 24 04/01/2023 COMPL ETE BLOOD COUNT W/DIF F nucleated RBC 0.0 % 0.0-0. 3 normal Not Available [address] [place], [address] 04/01/2023 18:21:40 04/01/19 24 04/01/2023 COMPL ETE BLOOD COUNT W/DIF F absolute neutrophil count 8.60 10_3/ uL 1.2-6. 7 high Not Available [address] [place], [address] 04/01/2023 18:21:40 04/01/19 24 04/01/2023 COMPL ETE BLOOD COUNT W/DIF F absolute lymphocyte count 1.45 10_3/ uL 1.2-3. 4 normal Not Available [address] [place], [address] 04/01/2023 18:21:40 04/01/19 24 04/01/2023 COMPL ETE BLOOD COUNT W/DIF F absolute monocyte count 0.47 10_3/ uL 0.1-0. 8 normal Not Available [address] [place], [address] 04/01/2023 18:21:40 04/01/19 24 04/01/2023 COMPL ETE BLOOD COUNT W/DIF F absolute eosinophil count 0.01 10_3/ uL 0.0-0. 7 normal Not Available [address] [place], [address] 04/01/2023 18:21:40 04/01/19 24 04/01/2023 COMPL ETE BLOOD COUNT W/DIF F absolute basophil count 0.04 10_3/ uL 0.0-0. 2 normal Not Available [address] [place], [address] 04/01/2023 18:21:40 04/01/19 24 04/01/2023 PROTH ROMBI N TIME prothrombin time 10.8 sec 9.1-11 .1 normal Not Available [address] [place], [address] 04/01/2023 18:28:41 04/01/19 24 04/01/2023 PROTH ROMBI N TIME INR 1.1 0.9-1. 1 normal Not Available [address] [place], [address] 04/01/2023 18:28:41 04/01/19 24 04/01/2023 PTT ACTIV ATED PTT activated 24.6 sec 23.6-3 2.8 normal Not Available [address] [place], [address] 04/01/2023 18:28:41 04/01/19 24 04/01/2023 COMPR EHENS MARGE METAB OLIC PANEL calcium 9.6 mg/dL 8.5-10 .1 normal Not Available [address] [place], [address] 04/01/2023 18:52:43 04/01/19 24 04/01/2023 COMPR EHENS MARGE METAB OLIC PANEL glucose 145 mg/dL 74-106 high Not Available [address] [place], [address] 04/01/2023 18:52:43 04/01/19 24 04/01/2023 COMPR EHENS MARGE METAB OLIC PANEL BUN 29 mg/dL 7-18 high Not Available [address] [place], [address] 04/01/2023 18:52:43 04/01/19 24 04/01/2023 COMPR EHENS MARGE METAB OLIC PANEL creatinine 1.0 mg/dL 0.70-1 .30 normal Not Available [address] [place], [address] 04/01/2023 18:52:43 04/01/19 24 04/01/2023 COMPR EHENS MARGE METAB OLIC PANEL estimated GFR 78.98 mL/min /1.73m 2 Not Available [address] [place], [address] 04/01/2023 18:52:43 04/01/19 24 04/01/2023 COMPR EHENS MARGE METAB OLIC PANEL total protein 8.6 g/dL 6.4-8. 2 high Not Available [address] [place], [address] 04/01/2023 18:52:43 04/01/19 24 04/01/2023 COMPR EHENS MARGE METAB OLIC PANEL albumin 4.4 g/dL 3.4-5. 0 normal Not Available [address] [place], [address] 04/01/2023 18:52:43 04/01/19 24 04/01/2023 COMPR EHENS MARGE METAB OLIC PANEL bilirubin, total 0.8 mg/dL 0.2-1. 0 normal Not Available [address] [place], [address] 04/01/2023 18:52:43 04/01/19 24 04/01/2023 COMPR EHENS MARGE METAB OLIC PANEL alk phos 64 U/L 46-116 normal Not Available [address] [place], [address] 04/01/2023 18:52:43 04/01/19 24 04/01/2023 COMPR EHENS MARGE METAB OLIC PANEL sodium 142 mmol/ L 136-14 5 normal Not Available [address] [place], [address] 04/01/2023 18:52:43 04/01/19 24 04/01/2023 COMPR EHENS MARGE METAB OLIC PANEL potassium 3.7 mmol/ L 3.5-5. 1 normal Not Available [address] [place], [address] 04/01/2023 18:52:43 04/01/19 24 04/01/2023 COMPR EHENS MARGE METAB OLIC PANEL chloride 105 mmol/ L 98-107 normal Not Available [address] [place], [address] 04/01/2023 18:52:43 04/01/19 24 04/01/2023 COMPR EHENS MARGE METAB OLIC PANEL CO2 24.6 mmol/ L 21.0-3 2.0 normal Not Available [address] [place], [address] 04/01/2023 18:52:43 04/01/19 24 04/01/2023 COMPR EHENS MARGE METAB OLIC PANEL anion gap 12.4 mmol/ L 3-11 high Not Available [address] [place], [address] 04/01/2023 18:52:43 04/01/19 24 04/01/2023 COMPR EHENS MARGE METAB OLIC PANEL AST 124 U/L 15-37 high Not Available [address] [place], [address] 04/01/2023 18:52:43 04/01/19 24 04/01/2023 COMPR EHENS MARGE METAB OLIC PANEL ALT 65 U/L 16-63 high Not Available [address] [place], [address] 04/01/2023 18:52:43 04/01/19 24 04/01/2023 ETHYL ALCOH OL ethyl alcohol < 3.0 mg/dL <10 Not Available [address] [place], [address] 04/01/2023 18:52:44 04/01/19 24 04/01/2023 MAGNE SIUM magnesium 2.3 mg/dL 1.8-2. 4 normal Not Available [address] [place], [address] 04/01/2023 18:52:45 04/01/19 24 04/01/2023 TSH (W/RE F FT4) TSH (w/ref FT4) 3.11 uIU/m L 0.36-3 .74 normal Not Available [address] [place], [address] 04/01/2023 18:52:46 04/01/19 24 04/01/2023 CARDI AC TROPO CATIE I cardiac troponin I < 50 NG/L < or =60 Not Available [address] [place], [address] 04/01/2023 18:52:46 04/01/19 24 04/01/2023 URINA LYSIS color Dark Yellow yellow Not Available [address] [place], [address] 04/01/2023 20:23:13 04/01/19 24 04/01/2023 URINA LYSIS clarity Sl Cloudy clear Not Available [address] [place], [address] 04/01/2023 20:23:13 04/01/19 24 04/01/2023 URINA LYSIS specific gravity 1.025 1.005- 1.025 normal Not Available [address] [place], [address] 04/01/2023 20:23:13 04/01/19 24 04/01/2023 URINA LYSIS pH 6.5 5-8 normal Not Available Shayan bradford [address] [place], [address] 04/01/2023 20:23:13 04/01/19 24 04/01/2023 URINA LYSIS leukocyte esterase Negati ve negati ve Not Available [address] [place], [address] 04/01/2023 20:23:13 04/01/19 24 04/01/2023 URINA LYSIS nitrite Negati ve negati ve Not Available [address] [place], [address] 04/01/2023 20:23:13 04/01/19 24 04/01/2023 URINA LYSIS protein 30 mg/dL negati ve abnormal Not Available [address] [place], [address] 04/01/2023 20:23:13 04/01/19 24 04/01/2023 URINA LYSIS glucose Negati ve mg/dL negati ve Not Available [address] [place], [address] 04/01/2023 20:23:13 04/01/19 24 04/01/2023 URINA LYSIS ketones 15 mg/dL negati ve abnormal Not Available [address] [place], [address] 04/01/2023 20:23:13 04/01/19 24 04/01/2023 URINA LYSIS urobilinogen 0.2 mg/dL up to 0.2 Not Available [address] [place], [address] 04/01/2023 20:23:13 04/01/19 24 04/01/2023 URINA LYSIS bilirubin Small negati ve abnormal Not Available [address] [place], [address] 04/01/2023 20:23:13 04/01/19 24 04/01/2023 URINA LYSIS blood Negati ve negati ve Not Available [address] [place], [address] 04/01/2023 20:23:13 04/01/19 24 04/01/2023 URINA LYSIS color Dark Yellow yellow Not Available [address] [place], [address] 04/01/2023 20:28:14 04/01/19 24 04/01/2023 URINA LYSIS clarity Sl Cloudy clear Not Available [address] [place], [address] 04/01/2023 20:28:14 04/01/19 24 04/01/2023 URINA LYSIS specific gravity 1.025 1.005- 1.025 normal Not Available [address] [place], [address] 04/01/2023 20:28:14 04/01/19 24 04/01/2023 URINA LYSIS pH 6.5 5-8 normal Not Available Laithbradley suzette [address] [place], [address] 04/01/2023 20:28:14 04/01/19 24 04/01/2023 URINA LYSIS leukocyte esterase Negati ve negati ve Not Available [address] [place], [address] 04/01/2023 20:28:14 04/01/19 24 04/01/2023 URINA LYSIS nitrite Negati ve negati ve Not Available [address] [place], [address] 04/01/2023 20:28:14 04/01/19 24 04/01/2023 URINA LYSIS protein 30 mg/dL negati ve abnormal Not Available [address] [place], [address] 04/01/2023 20:28:14 04/01/19 24 04/01/2023 URINA LYSIS glucose Negati ve mg/dL negati ve Not Available [address] [place], [address] 04/01/2023 20:28:14 04/01/19 24 04/01/2023 URINA LYSIS ketones 15 mg/dL negati ve abnormal Not Available [address] [place], [address] 04/01/2023 20:28:14 04/01/19 24 04/01/2023 URINA LYSIS urobilinogen 0.2 mg/dL up to 0.2 Not Available [address] [place], [address] 04/01/2023 20:28:14 04/01/19 24 04/01/2023 URINA LYSIS bilirubin Small negati ve abnormal Not Available [address] [place], [address] 04/01/2023 20:28:14 04/01/19 24 04/01/2023 URINA LYSIS blood Negati ve negati ve Not Available [address] [place], [address] 04/01/2023 20:28:14 04/01/19 24 04/01/2023 MICRO SCOPI C FINDI NGS WBC Negati ve hpf 0-5 Not Available [address] [place], [address] 04/01/2023 20:28:14 04/01/19 24 04/01/2023 MICRO SCOPI C FINDI NGS RBC 0-2 hpf 0-2 Not Available [facility] [place] [address] [place], [address] 04/01/2023 20:28:14 04/01/19 24 04/01/2023 MICRO SCOPI C FINDI NGS epithelial cells Rare hpf negati ve Not Available [place] [facility] [address] [place], [address] 04/01/2023 20:28:14 04/01/19 24 04/01/2023 MICRO SCOPI C FINDI NGS bacteria Rare hpf negati ve Not Available [address] [place], [address] 04/01/2023 20:28:14 04/01/19 24 04/01/2023 MICRO SCOPI C FINDI NGS crystals Negati ve hpf negati ve Not Available [address] [place], [address] 04/01/2023 20:28:14 04/01/19 24 04/01/2023 MICRO SCOPI C FINDI NGS mucus Modera te negati ve Not Available [address] [place], [address] 04/01/2023 20:28:14 04/01/19 24 04/01/2023 MICRO SCOPI C FINDI NGS casts Negati ve lpf negati ve Not Available [address] [place], [address] 04/01/2023 20:28:14 04/01/19 24 04/01/2023 MICRO SCOPI C FINDI NGS C S indicated? No Not Available [address] [place], [address] 04/01/2023 20:28:14 04/01/19 24 04/01/2023 URINE DRUG SCREE N ([facility] ) methadone Negati ve negati ve Not Available [address] [place], [address] 04/01/2023 20:52:15 04/01/19 24 04/01/2023 URINE DRUG SCREE N ([facility] ) benzodiazepi juaquin Negati ve negati ve Not Available [address] [place], [address] 04/01/2023 20:52:15 04/01/19 24 04/01/2023 URINE DRUG SCREE N ([facility] ) cocaine Negati ve negati ve Not Available [address] [place], [address] 04/01/2023 20:52:15 04/01/19 24 04/01/2023 URINE DRUG SCREE N ([facility] ) amphetamines Negati ve negati ve Not Available [address] [place], [address] 04/01/2023 20:52:15 04/01/19 24 04/01/2023 URINE DRUG SCREE N ([facility] ) tetrahydroca nnabinol Negati ve negati ve Not Available [address] [place], [address] 04/01/2023 20:52:15 04/01/19 24 04/01/2023 URINE DRUG SCREE N ([facility] ) opiates Negati ve negati ve Not Available [address] [place], [address] 04/01/2023 20:52:15 04/01/19 24 04/01/2023 URINE DRUG SCREE N ([facility] ) barbiturates Negati ve negati ve Not Available [address] [place], [address] 04/01/2023 20:52:15 04/01/19 24 04/01/2023 URINE DRUG SCREE N ([facility] ) tricyclic antidepressa nts Positi ve negati ve abnormal Not Available [address] [place], [address] 04/01/2023 20:52:15 04/01/19 24 04/01/2023 CARDI AC TROPO CATIE I cardiac troponin I < 50 NG/L < or =60 Not Available [address] [place], [address] 04/01/2023 21:38:18 04/19/19 24 04/19/2023 COMPL ETE BLOOD COUNT W/DIF F WBC 6.83 10_3/ uL 4.4-10 .8 normal Not Available [address] [place], [address] 04/19/2023 12:58:26 04/19/19 24 04/19/2023 COMPL ETE BLOOD COUNT W/DIF F RBC 4.02 10_6/ uL 4.36-5 .78 low Not Available [address] [place], [address] 04/19/2023 12:58:26 04/19/19 24 04/19/2023 COMPL ETE BLOOD COUNT W/DIF F HGB 12.3 g/dL 13.5-1 7.5 low Not Available [address] [place], [address] 04/19/2023 12:58:26 04/19/19 24 04/19/2023 COMPL ETE BLOOD COUNT W/DIF F HCT 37.2 % 40.0-5 0.0 low Not Available [address] [place], [address] 04/19/2023 12:58:26 04/19/19 24 04/19/2023 COMPL ETE BLOOD COUNT W/DIF F MCV 93 fL 80-95 normal Not Available [address] [place], [address] 04/19/2023 12:58:26 04/19/19 24 04/19/2023 COMPL ETE BLOOD COUNT W/DIF F MCH 30.6 pg 27.0-3 3.0 normal Not Available [address] [place], [address] 04/19/2023 12:58:26 04/19/19 24 04/19/2023 COMPL ETE BLOOD COUNT W/DIF F MCHC 33.1 % 32.0-3 6.0 normal Not Available [address] [place], [address] 04/19/2023 12:58:26 04/19/19 24 04/19/2023 COMPL ETE BLOOD COUNT W/DIF F RDW 13.2 % 11.8-1 4.1 normal Not Available [address] [place], [address] 04/19/2023 12:58:26 04/19/19 24 04/19/2023 COMPL ETE BLOOD COUNT W/DIF F platelet count 322 10_3/ uL 130-40 0 normal Not Available [address] [place], [address] 04/19/2023 12:58:26 04/19/19 24 04/19/2023 COMPL ETE BLOOD COUNT W/DIF F MPV 8.7 fL 8.0-11 .0 normal Not Available [address] [place], [address] 04/19/2023 12:58:26 04/19/19 24 04/19/2023 COMPL ETE BLOOD COUNT W/DIF F neutrophils % 54.5 Not Available [address] [place], [address] 04/19/2023 12:58:26 04/19/19 24 04/19/2023 COMPL ETE BLOOD COUNT W/DIF F lymphocytes % 31.5 Not Available [address] [place], [address] 04/19/2023 12:58:26 04/19/19 24 04/19/2023 COMPL ETE BLOOD COUNT W/DIF F monocytes % 11.0 Not Available Sky [email or web address] [place], [address] 04/19/2023 12:58:26 04/19/19 24 04/19/2023 COMPL ETE BLOOD COUNT W/DIF F eosinophils % 2.3 Not Available [address] [place], [address] 04/19/2023 12:58:26 04/19/19 24 04/19/2023 COMPL ETE BLOOD COUNT W/DIF F basophils % 0.4 Not Available Belarj [email or web address] [address] [place], [address] 04/19/2023 12:58:26 04/19/19 24 04/19/2023 COMPL ETE BLOOD COUNT W/DIF F immature grans % 0.3 Not Available [address] [place], [address] 04/19/2023 12:58:26 04/19/19 24 04/19/2023 COMPL ETE BLOOD COUNT W/DIF F nucleated RBC 0.0 % 0.0-0. 3 normal Not Available [address] [place], [address] 04/19/2023 12:58:26 04/19/19 24 04/19/2023 COMPL ETE BLOOD COUNT W/DIF F absolute neutrophil count 3.72 10_3/ uL 1.2-6. 7 normal Not Available [address] [place], [address] 04/19/2023 12:58:26 04/19/19 24 04/19/2023 COMPL ETE BLOOD COUNT W/DIF F absolute lymphocyte count 2.15 10_3/ uL 1.2-3. 4 normal Not Available [address] [place], [address] 04/19/2023 12:58:26 04/19/19 24 04/19/2023 COMPL ETE BLOOD COUNT W/DIF F absolute monocyte count 0.75 10_3/ uL 0.1-0. 8 normal Not Available [address] [place], [address] 04/19/2023 12:58:26 04/19/19 24 04/19/2023 COMPL ETE BLOOD COUNT W/DIF F absolute eosinophil count 0.16 10_3/ uL 0.0-0. 7 normal Not Available [address] [place], [address] 04/19/2023 12:58:26 04/19/19 24 04/19/2023 COMPL ETE BLOOD COUNT W/DIF F absolute basophil count 0.03 10_3/ uL 0.0-0. 2 normal Not Available [address] [place], [address] 04/19/2023 12:58:26 04/19/19 24 04/19/2023 COMPR EHENS MARGE METAB OLIC PANEL calcium 10.0 mg/dL 8.5-10 .1 normal Not Available [address] [place], [address] 04/19/2023 14:02:34 04/19/19 24 04/19/2023 COMPR EHENS MARGE METAB OLIC PANEL glucose 101 mg/dL 74-106 normal Not Available [address] [place], [address] 04/19/2023 14:02:34 04/19/19 24 04/19/2023 COMPR EHENS MARGE METAB OLIC PANEL BUN 15 mg/dL 7-18 normal Not Available [address] [place], [address] 04/19/2023 14:02:34 04/19/19 24 04/19/2023 COMPR EHENS MARGE METAB OLIC PANEL creatinine 1.0 mg/dL 0.70-1 .30 normal Not Available [address] [place], [address] 04/19/2023 14:02:34 04/19/19 24 04/19/2023 COMPR EHENS MARGE METAB OLIC PANEL estimated GFR 78.98 mL/min /1.73m 2 Not Available [address] [place], [address] 04/19/2023 14:02:34 04/19/19 24 04/19/2023 COMPR EHENS MARGE METAB OLIC PANEL total protein 8.3 g/dL 6.4-8. 2 high Not Available [address] [place], [address] 04/19/2023 14:02:34 04/19/19 24 04/19/2023 COMPR EHENS MARGE METAB OLIC PANEL albumin 4.0 g/dL 3.4-5. 0 normal Not Available [address] [place], [address] 04/19/2023 14:02:34 04/19/19 24 04/19/2023 COMPR EHENS MARGE METAB OLIC PANEL bilirubin, total 0.4 mg/dL 0.2-1. 0 normal Not Available [address] [place], [address] 04/19/2023 14:02:34 04/19/19 24 04/19/2023 COMPR EHENS MARGE METAB OLIC PANEL alk phos 79 U/L 46-116 normal Not Available [address] [place], [address] 04/19/2023 14:02:34 04/19/19 24 04/19/2023 COMPR EHENS MARGE METAB OLIC PANEL sodium 138 mmol/ L 136-14 5 normal Not Available [address] [place], [address] 04/19/2023 14:02:34 04/19/19 24 04/19/2023 COMPR EHENS MARGE METAB OLIC PANEL potassium 4.2 mmol/ L 3.5-5. 1 normal Not Available [address] [place], [address] 04/19/2023 14:02:34 04/19/19 24 04/19/2023 COMPR EHENS MARGE METAB OLIC PANEL chloride 103 mmol/ L 98-107 normal Not Available [address] [place], [address] 04/19/2023 14:02:34 04/19/19 24 04/19/2023 COMPR EHENS MARGE METAB OLIC PANEL CO2 31.4 mmol/ L 21.0-3 2.0 normal Not Available [address] [place], [address] 04/19/2023 14:02:34 04/19/19 24 04/19/2023 COMPR EHENS MARGE METAB OLIC PANEL anion gap 3.6 mmol/ L 3-11 normal Not Available [address] [place], [address] 04/19/2023 14:02:34 04/19/19 24 04/19/2023 COMPR EHENS MARGE METAB OLIC PANEL AST 28 U/L 15-37 normal Not Available [address] [place], [address] 04/19/2023 14:02:34 04/19/19 24 04/19/2023 COMPR EHENS MARGE METAB OLIC PANEL ALT 39 U/L 16-63 normal Not Available [address] [place], [address] 04/19/2023 14:02:34 04/19/19 24 04/22/2023 TESTO STERO NE, TOTAL testosterone , total 8.2 NG/dL 240-95 0 abnormal Not Available [address] [place], [address] 04/22/2023 16:53:27 04/19/19 24 04/21/2023 PSA, ULTRA SENSI TIVE PSA, ultrasensiti ve 0.04 NG/mL <= 6.5 Not Available [address] [place], [address] 04/22/2023 16:53:27 06/10/19 24 06/10/2023 COMPL ETE BLOOD COUNT W/DIF F WBC 7.95 10_3/ uL 4.4-10 .8 normal Not Available [address] [place], [address] 06/10/2023 14:55:59 06/10/19 24 06/10/2023 COMPL ETE BLOOD COUNT W/DIF F RBC 4.03 10_6/ uL 4.36-5 .78 low Not Available [address] [place], [address] 06/10/2023 14:55:59 06/10/19 24 06/10/2023 COMPL ETE BLOOD COUNT W/DIF F HGB 12.7 g/dL 13.5-1 7.5 low Not Available [address] [place], [address] 06/10/2023 14:55:59 06/10/19 24 06/10/2023 COMPL ETE BLOOD COUNT W/DIF F HCT 37.3 % 40.0-5 0.0 low Not Available [address] [place], [address] 06/10/2023 14:55:59 06/10/19 24 06/10/2023 COMPL ETE BLOOD COUNT W/DIF F MCV 93 fL 80-95 normal Not Available [address] [place], [address] 06/10/2023 14:55:59 06/10/19 24 06/10/2023 COMPL ETE BLOOD COUNT W/DIF F MCH 31.5 pg 27.0-3 3.0 normal Not Available [address] [place], [address] 06/10/2023 14:55:59 06/10/19 24 06/10/2023 COMPL ETE BLOOD COUNT W/DIF F MCHC 34.0 % 32.0-3 6.0 normal Not Available [address] [place], [address] 06/10/2023 14:55:59 06/10/19 24 06/10/2023 COMPL ETE BLOOD COUNT W/DIF F RDW 13.0 % 11.8-1 4.1 normal Not Available [address] [place], [address] 06/10/2023 14:55:59 06/10/19 24 06/10/2023 COMPL ETE BLOOD COUNT W/DIF F platelet count 326 10_3/ uL 130-40 0 normal Not Available [address] [place], [address] 06/10/2023 14:55:59 06/10/19 24 06/10/2023 COMPL ETE BLOOD COUNT W/DIF F MPV 8.8 fL 8.0-11 .0 normal Not Available [address] [place], [address] 06/10/2023 14:55:59 06/10/19 24 06/10/2023 COMPL ETE BLOOD COUNT W/DIF F neutrophils % 46.4 Not Available [address] [place], [address] 06/10/2023 14:55:59 06/10/19 24 06/10/2023 COMPL ETE BLOOD COUNT W/DIF F lymphocytes % 37.2 Not Available [address] [place], [address] 06/10/2023 14:55:59 06/10/19 24 06/10/2023 COMPL ETE BLOOD COUNT W/DIF F monocytes % 9.2 Not Available [address] [place], [address] 06/10/2023 14:55:59 06/10/19 24 06/10/2023 COMPL ETE BLOOD COUNT W/DIF F eosinophils % 5.9 Not Available [address] [place], [address] 06/10/2023 14:55:59 06/10/19 24 06/10/2023 COMPL ETE BLOOD COUNT W/DIF F basophils % 0.9 Not Available [address] [place], [address] 06/10/2023 14:55:59 06/10/19 24 06/10/2023 COMPL ETE BLOOD COUNT W/DIF F immature grans % 0.4 Not Available [address] [place], [address] 06/10/2023 14:55:59 06/10/19 24 06/10/2023 COMPL ETE BLOOD COUNT W/DIF F nucleated RBC 0.0 % 0.0-0. 3 normal Not Available [address] [place], [address] 06/10/2023 14:55:59 06/10/19 24 06/10/2023 COMPL ETE BLOOD COUNT W/DIF F absolute neutrophil count 3.69 10_3/ uL 1.2-6. 7 normal Not Available [address] [place], [address] 06/10/2023 14:55:59 06/10/19 24 06/10/2023 COMPL ETE BLOOD COUNT W/DIF F absolute lymphocyte count 2.96 10_3/ uL 1.2-3. 4 normal Not Available [address] [place], [address] 06/10/2023 14:55:59 06/10/19 24 06/10/2023 COMPL ETE BLOOD COUNT W/DIF F absolute monocyte count 0.73 10_3/ uL 0.1-0. 8 normal Not Available [address] [place], [address] 06/10/2023 14:55:59 06/10/19 24 06/10/2023 COMPL ETE BLOOD COUNT W/DIF F absolute eosinophil count 0.47 10_3/ uL 0.0-0. 7 normal Not Available [address] [place], [address] 06/10/2023 14:55:59 06/10/19 24 06/10/2023 COMPL ETE BLOOD COUNT W/DIF F absolute basophil count 0.07 10_3/ uL 0.0-0. 2 normal Not Available [address] [place], [address] 06/10/2023 14:55:59 06/10/19 24 06/10/2023 LASIC METAB OLIC PANEL calcium 9.0 mg/dL 8.5-10 .1 normal Not Available [address] [place], [address] 06/10/2023 15:55:21 06/10/19 24 06/10/2023 LASIC METAB OLIC PANEL glucose 93 mg/dL 74-106 normal Not Available [address] [place], [address] 06/10/2023 15:55:21 06/10/19 24 06/10/2023 LASIC METAB OLIC PANEL BUN 23 mg/dL 7-18 high Not Available [address] [place], [address] 06/10/2023 15:55:21 06/10/19 24 06/10/2023 LASIC METAB OLIC PANEL creatinine 1.1 mg/dL 0.70-1 .30 normal Not Available [address] [place], [address] 06/10/2023 15:55:21 06/10/19 24 06/10/2023 LASIC METAB OLIC PANEL estimated GFR 70.44 mL/min /1.73m 2 Not Available [address] [place], [address] 06/10/2023 15:55:21 06/10/19 24 06/10/2023 LASIC METAB OLIC PANEL sodium 143 mmol/ L 136-14 5 normal Not Available [address] [place], [address] 06/10/2023 15:55:21 06/10/19 24 06/10/2023 LASIC METAB OLIC PANEL potassium 4.5 mmol/ L 3.5-5. 1 normal Not Available [address] [place], [address] 06/10/2023 15:55:21 06/10/19 24 06/10/2023 LASIC METAB OLIC PANEL chloride 105 mmol/ L 98-107 normal Not Available [address] [place], [address] 06/10/2023 15:55:21 06/10/19 24 06/10/2023 LASIC METAB OLIC PANEL CO2 28.5 mmol/ L 21.0-3 2.0 normal Not Available [address] [place], [address] 06/10/2023 15:55:21 06/10/19 24 06/10/2023 LASIC METAB OLIC PANEL anion gap 9.5 mmol/ L 3-11 normal Not Available [address] [place], [address] 06/10/2023 15:55:21 06/10/19 24 06/10/2023 LASIC METAB OLIC PANEL calcium 9.0 mg/dL 8.5-10 .1 normal Not Available [address] [place], [address] 06/10/2023 16:16:20 06/10/19 24 06/10/2023 LASIC METAB OLIC PANEL glucose 93 mg/dL 74-106 normal Not Available [address] [place], [address] 06/10/2023 16:16:20 06/10/19 24 06/10/2023 LASIC METAB OLIC PANEL BUN 23 mg/dL 7-18 high Not Available Shayan bradford [address] [place], [address] 06/10/2023 16:16:20 06/10/19 24 06/10/2023 LASIC METAB OLIC PANEL creatinine 1.1 mg/dL 0.70-1 .30 normal Not Available [address] [place], [address] 06/10/2023 16:16:20 06/10/19 24 06/10/2023 LASIC METAB OLIC PANEL estimated GFR 70.44 mL/min /1.73m 2 Not Available [address] [place], [address] 06/10/2023 16:16:20 06/10/19 24 06/10/2023 LASIC METAB OLIC PANEL sodium 143 mmol/ L 136-14 5 normal Not Available [address] [place], [address] 06/10/2023 16:16:20 06/10/19 24 06/10/2023 LASIC METAB OLIC PANEL potassium 4.5 mmol/ L 3.5-5. 1 normal Not Available [address] [place], [address] 06/10/2023 16:16:20 06/10/19 24 06/10/2023 LASIC METAB OLIC PANEL chloride 105 mmol/ L 98-107 normal Not Available [address] [place], [address] 06/10/2023 16:16:20 06/10/19 24 06/10/2023 LASIC METAB OLIC PANEL CO2 28.5 mmol/ L 21.0-3 2.0 normal Not Available [address] [place], [address] 06/10/2023 16:16:20 06/10/19 24 06/10/2023 LASIC METAB OLIC PANEL anion gap 9.5 mmol/ L 3-11 normal Not Available [address] [place], [address] 06/10/2023 16:16:20 07/02/19 24 07/02/2023 MICRO SCOPI C FINDI NGS WBC 3-5 hpf 0-5 Not Available [facility] (Registration ) [address] [place] [address] [place], [address], 07/02/2023 16:56:52 07/02/19 24 07/02/2023 MICRO SCOPI C FINDI NGS RBC >50 hpf 0-2 abnormal Not Available [facility] (Registration ) [address] [place] [address] [place], [address], 07/02/2023 16:56:52 07/02/19 24 07/02/2023 MICRO SCOPI C FINDI NGS epithelial cells Rare hpf negati ve Not Available [facility] (Registration ) [address] [place] [address] [place], [address], 07/02/2023 16:56:52 07/02/19 24 07/02/2023 MICRO SCOPI C FINDI NGS bacteria Few hpf negati ve Not Available [facility] (Registration ) [address] [place] [address] [place], [address], 07/02/2023 16:56:52 07/02/19 24 07/02/2023 MICRO SCOPI C FINDI NGS crystals Negati ve hpf negati ve Not Available [facility] (Registration ) [address] [place] [address] [place], [address], 07/02/2023 16:56:52 07/02/19 24 07/02/2023 MICRO SCOPI C FINDI NGS mucus Negati ve negati ve Not Available [facility] (Registration ) [address] [place] [address] [place], [address], 07/02/2023 16:56:52 07/02/19 24 07/02/2023 MICRO SCOPI C FINDI NGS casts Negati ve lpf negati ve Not Available [facility] (Registration ) [address] [place] [address] [place], [address], 07/02/2023 16:56:52 07/02/19 24 07/02/2023 MICRO SCOPI C FINDI NGS C S indicated? C S Done As Ordere d Not Available [facility] (Registration ) [address] [place] [address] [place], [address], 07/02/2023 16:56:52 07/02/19 24 07/03/2023 URINE CULTU RE urine culture Not Available [facility] (Registration ) [address] [place] [address] [place], [address], 07/03/2023 10:35:55 07/02/19 24 07/03/2023 URINE CULTU RE urine culture colon ies/m L Not Available [facility] (Registration ) [address] [place] [address] [place] [facility] [place], [address], 07/03/2023 10:35:55 07/02/19 24 07/04/2023 URINE CULTU RE urine culture Not Available [facility] (Registration ) [address] [place] [address] [place] [facility] [place], [address], 07/04/2023 07:54:50 07/02/19 24 07/04/2023 URINE CULTU RE urine culture colon ies/m L Not Available [facility] (Registration ) [address] [place] [address] [place] [facility] [place], [address], 07/04/2023 07:54:50 07/02/19 24 07/02/2023 urina lysis , dipst ick pH 5.0 Not Available Shayan Ward [address], [address], 07/02/2023 12:04:05 07/02/19 24 07/02/2023 urina lysis , dipst ick Blood Large Not Available Shayan Ward [address], [address], 07/02/2023 12:04:05 07/02/19 24 07/02/2023 urina lysis , dipst ick Specific [place] 1.030 Not Available [address] [place], [address], 07/02/2023 12:04:05 07/02/19 24 07/02/2023 urina lysis , dipst ick Glucose Negati ve Not Available [address], [place], [address], 07/02/2023 12:04:05 07/02/19 24 07/02/2023 urina lysis , dipst ick Appearance Turbid Not Available [address], [place], [address], 07/02/2023 12:04:05 07/02/19 24 07/02/2023 urina lysis , dipst ick Color Red Not Available [address], [place], [address], 07/02/2023 12:04:05 07/12/19 24 07/12/2023 COMPL ETE BLOOD COUNT W/DIF F WBC 7.26 10_3/ uL 4.4-10 .8 normal Not Available [address] [place], [address] 07/12/2023 11:00:35 07/12/19 24 07/12/2023 COMPL ETE BLOOD COUNT W/DIF F RBC 4.00 10_6/ uL 4.36-5 .78 low Not Available [address] [place] [facility] [place], [address] 07/12/2023 11:00:35 07/12/19 24 07/12/2023 COMPL ETE BLOOD COUNT W/DIF F HGB 12.4 g/dL 13.5-1 7.5 low Not Available [address] [place] [facility] [place], [address] 07/12/2023 11:00:35 07/12/19 24 07/12/2023 COMPL ETE BLOOD COUNT W/DIF F HCT 37.0 % 40.0-5 0.0 low Not Available [address] [place], [address] 07/12/2023 11:00:35 07/12/19 24 07/12/2023 COMPL ETE BLOOD COUNT W/DIF F MCV 93 fL 80-95 normal Not Available Laith bobby[address] [place], [address] 07/12/2023 11:00:35 07/12/19 24 07/12/2023 COMPL ETE BLOOD COUNT W/DIF F MCH 31.0 pg 27.0-3 3.0 normal Not Available [address] [place], [address] 07/12/2023 11:00:35 07/12/19 24 07/12/2023 COMPL ETE BLOOD COUNT W/DIF F MCHC 33.5 % 32.0-3 6.0 normal Not Available [address] [place], [address] 07/12/2023 11:00:35 07/12/19 24 07/12/2023 COMPL ETE BLOOD COUNT W/DIF F RDW 12.6 % 11.8-1 4.1 normal Not Available [address] [place], [address] 07/12/2023 11:00:35 07/12/19 24 07/12/2023 COMPL ETE BLOOD COUNT W/DIF F platelet count 359 10_3/ uL 130-40 0 normal Not Available [address] [place], [address] 07/12/2023 11:00:35 07/12/19 24 07/12/2023 COMPL ETE BLOOD COUNT W/DIF F MPV 8.3 fL 8.0-11 .0 normal Not Available [address] [place], [address] 07/12/2023 11:00:35 07/12/19 24 07/12/2023 COMPL ETE BLOOD COUNT W/DIF F neutrophils % 59.0 % Not Available [address] [place], [address] 07/12/2023 11:00:35 07/12/19 24 07/12/2023 COMPL ETE BLOOD COUNT W/DIF F lymphocytes % 30.0 % Not Available [address] [place], [address] 07/12/2023 11:00:35 07/12/19 24 07/12/2023 COMPL ETE BLOOD COUNT W/DIF F monocytes % 7.9 % Not Available [address] [place], [address] 07/12/2023 11:00:35 07/12/19 24 07/12/2023 COMPL ETE BLOOD COUNT W/DIF F eosinophils % 1.9 % Not Available [address] [place], [address] 07/12/2023 11:00:35 07/12/19 24 07/12/2023 COMPL ETE BLOOD COUNT W/DIF F basophils % 0.6 % Not Available [address] [place], [address] 07/12/2023 11:00:35 07/12/19 24 07/12/2023 COMPL ETE BLOOD COUNT W/DIF F immature grans % 0.6 % Not Available [address] [place], [address] 07/12/2023 11:00:35 07/12/19 24 07/12/2023 COMPL ETE BLOOD COUNT W/DIF F nucleated RBC 0.0 % 0.0-0. 3 normal Not Available [address] [place], [address] 07/12/2023 11:00:35 07/12/19 24 07/12/2023 COMPL ETE BLOOD COUNT W/DIF F absolute neutrophil count 4.29 10_3/ uL 1.2-6. 7 normal Not Available [address] [place], [address] 07/12/2023 11:00:35 07/12/19 24 07/12/2023 COMPL ETE BLOOD COUNT W/DIF F absolute lymphocyte count 2.18 10_3/ uL 1.2-3. 4 normal Not Available [address] [place], [address] 07/12/2023 11:00:35 07/12/19 24 07/12/2023 COMPL ETE BLOOD COUNT W/DIF F absolute monocyte count 0.57 10_3/ uL 0.1-0. 8 normal Not Available [address] [place], [address] 07/12/2023 11:00:35 07/12/19 24 07/12/2023 COMPL ETE BLOOD COUNT W/DIF F absolute eosinophil count 0.14 10_3/ uL 0.0-0. 7 normal Not Available [address] [place], [address] 07/12/2023 11:00:35 07/12/19 24 07/12/2023 COMPL ETE BLOOD COUNT W/DIF F absolute basophil count 0.04 10_3/ uL 0.0-0. 2 normal Not Available [address] [place], [address] 07/12/2023 11:00:35 07/12/19 24 07/12/2023 URINA LYSIS color Yellow yellow Not Available [address] [place], [address] 07/12/2023 11:06:35 07/12/19 24 07/12/2023 URINA LYSIS clarity Clear clear Not Available [address] [place], [address] 07/12/2023 11:06:35 07/12/19 24 07/12/2023 URINA LYSIS specific gravity >= 1.030 1.005- 1.025 high Not Available [address] [place], [address] 07/12/2023 11:06:35 07/12/19 24 07/12/2023 URINA LYSIS pH 5.5 5-8 normal Not Available [address] [place], [address] 07/12/2023 11:06:35 07/12/19 24 07/12/2023 URINA LYSIS leukocyte esterase Negati ve negati ve Not Available [address] [place], [address] 07/12/2023 11:06:35 07/12/19 24 07/12/2023 URINA LYSIS nitrite Positi ve negati ve abnormal Not Available [address] [place], [address] 07/12/2023 11:06:35 07/12/19 24 07/12/2023 URINA LYSIS protein Negati ve mg/dL neg-tr jamila Not Available [address] [place], [address] 07/12/2023 11:06:35 07/12/19 24 07/12/2023 URINA LYSIS glucose Negati ve mg/dL negati ve Not Available [address] [place], [address] 07/12/2023 11:06:35 07/12/19 24 07/12/2023 URINA LYSIS ketones Negati ve mg/dL negati ve Not Available [address] [place], [address] 07/12/2023 11:06:35 07/12/19 24 07/12/2023 URINA LYSIS urobilinogen 0.2 mg/dL up to 0.2 Not Available [address] [place], [address] 07/12/2023 11:06:35 07/12/19 24 07/12/2023 URINA LYSIS bilirubin Negati ve negati ve Not Available [address] [place], [address] 07/12/2023 11:06:35 07/12/19 24 07/12/2023 URINA LYSIS blood Negati ve negati ve Not Available [address] [place], [address] 07/12/2023 11:06:35 07/12/19 24 07/12/2023 URINA LYSIS color Yellow yellow Not Available Wrenbradley [address] [place], [address] 07/12/2023 11:13:38 07/12/19 24 07/12/2023 URINA LYSIS clarity Clear clear Not Available [facility] [address] [place], [address] 07/12/2023 11:13:38 07/12/19 24 07/12/2023 URINA LYSIS specific gravity >= 1.030 1.005- 1.025 high Not Available [address] [place], [address] 07/12/2023 11:13:38 07/12/19 24 07/12/2023 URINA LYSIS pH 5.5 5-8 normal Not Available Shayan bradford [address] [place], [address] 07/12/2023 11:13:38 07/12/19 24 07/12/2023 URINA LYSIS leukocyte esterase Negati ve negati ve Not Available [address] [place], [address] 07/12/2023 11:13:38 07/12/19 24 07/12/2023 URINA LYSIS nitrite Positi ve negati ve abnormal Not Available [address] [place], [address] 07/12/2023 11:13:38 07/12/19 24 07/12/2023 URINA LYSIS protein Negati ve mg/dL neg-tr jamila Not Available [address] [place], [address] 07/12/2023 11:13:38 07/12/19 24 07/12/2023 URINA LYSIS glucose Negati ve mg/dL negati ve Not Available [address] [place], [address] 07/12/2023 11:13:38 07/12/19 24 07/12/2023 URINA LYSIS ketones Negati ve mg/dL negati ve Not Available [address] [place], [address] 07/12/2023 11:13:38 07/12/19 24 07/12/2023 URINA LYSIS urobilinogen 0.2 mg/dL up to 0.2 Not Available [address] [place], [address] 07/12/2023 11:13:38 07/12/19 24 07/12/2023 URINA LYSIS bilirubin Negati ve negati ve Not Available [address] [place], [address] 07/12/2023 11:13:38 07/12/19 24 07/12/2023 URINA LYSIS blood Negati ve negati ve Not Available [address] [place], [address] 07/12/2023 11:13:38 07/12/19 24 07/12/2023 MICRO SCOPI C FINDI NGS WBC 5-10 hpf 0-5 Not Available [address] [place], [address] 07/12/2023 11:13:38 07/12/19 24 07/12/2023 MICRO SCOPI C FINDI NGS RBC 0-2 hpf 0-2 Not Available [address] [place], [address] 07/12/2023 11:13:38 07/12/19 24 07/12/2023 MICRO SCOPI C FINDI NGS epithelial cells Rare hpf negati ve Not Available [address] [place], [address] 07/12/2023 11:13:38 07/12/19 24 07/12/2023 MICRO SCOPI C FINDI NGS bacteria Few hpf negati ve Not Available [address] [place], [address] 07/12/2023 11:13:38 07/12/19 24 07/12/2023 MICRO SCOPI C FINDI NGS crystals Negati ve hpf negati ve Not Available [address] [place], [address] 07/12/2023 11:13:38 07/12/19 24 07/12/2023 MICRO SCOPI C FINDI NGS mucus Negati ve negati ve Not Available [address] [place], [address] 07/12/2023 11:13:38 07/12/19 24 07/12/2023 MICRO SCOPI C FINDI NGS casts Negati ve lpf negati ve Not Available [address] [place], [address] 07/12/2023 11:13:38 07/12/19 24 07/12/2023 MICRO SCOPI C FINDI NGS C S indicated? C S Done As Ordere d Not Available [address] [place], [address] 07/12/2023 11:13:38 07/12/19 24 07/12/2023 COMPR EHENS MARGE METAB OLIC PANEL calcium 9.0 mg/dL 8.5-10 .1 normal Not Available [address] [place], [address] 07/12/2023 11:22:39 07/12/19 24 07/12/2023 COMPR EHENS MARGE METAB OLIC PANEL glucose 112 mg/dL 74-106 high Not Available [address] [place], [address] 07/12/2023 11:22:39 07/12/19 24 07/12/2023 COMPR EHENS MARGE METAB OLIC PANEL BUN 23 mg/dL 7-18 high Not Available [address] [place], [address] 07/12/2023 11:22:39 07/12/19 24 07/12/2023 COMPR EHENS MARGE METAB OLIC PANEL creatinine 1.2 mg/dL 0.70-1 .30 normal Not Available [address] [place], [address] 07/12/2023 11:22:39 07/12/19 24 07/12/2023 COMPR EHENS MARGE METAB OLIC PANEL estimated GFR 63.46 mL/min /1.73m 2 Not Available [address] [place], [address] 07/12/2023 11:22:39 07/12/19 24 07/12/2023 COMPR EHENS MARGE METAB OLIC PANEL total protein 7.9 g/dL 6.4-8. 2 normal Not Available [address] [place], [address] 07/12/2023 11:22:39 07/12/19 24 07/12/2023 COMPR EHENS MARGE METAB OLIC PANEL albumin 3.7 g/dL 3.4-5. 0 normal Not Available [address] [place], [address] 07/12/2023 11:22:39 07/12/19 24 07/12/2023 COMPR EHENS MARGE METAB OLIC PANEL bilirubin, total 0.4 mg/dL 0.2-1. 0 normal Not Available [address] [place], [address] 07/12/2023 11:22:39 07/12/19 24 07/12/2023 COMPR EHENS MARGE METAB OLIC PANEL alk phos 76 U/L 46-116 normal Not Available [address] [place], [address] 07/12/2023 11:22:39 07/12/19 24 07/12/2023 COMPR EHENS MARGE METAB OLIC PANEL sodium 142 mmol/ L 136-14 5 normal Not Available [address] [place], [address] 07/12/2023 11:22:39 07/12/19 24 07/12/2023 COMPR EHENS MARGE METAB OLIC PANEL potassium 3.9 mmol/ L 3.5-5. 1 normal Not Available [address] [place], [address] 07/12/2023 11:22:39 07/12/19 24 07/12/2023 COMPR EHENS MARGE METAB OLIC PANEL chloride 106 mmol/ L 98-107 normal Not Available [address] [place], [address] 07/12/2023 11:22:39 07/12/19 24 07/12/2023 COMPR EHENS MARGE METAB OLIC PANEL CO2 25.1 mmol/ L 21.0-3 2.0 normal Not Available [address] [place], [address] 07/12/2023 11:22:39 07/12/19 24 07/12/2023 COMPR EHENS MARGE METAB OLIC PANEL anion gap 10.9 mmol/ L 3-11 normal Not Available [address] [place], [address] 07/12/2023 11:22:39 07/12/19 24 07/12/2023 COMPR EHENS MARGE METAB OLIC PANEL AST 24 U/L 15-37 normal Not Available [address] [place], [address] 07/12/2023 11:22:39 07/12/19 24 07/12/2023 COMPR EHENS MARGE METAB OLIC PANEL ALT 33 U/L 16-63 normal Not Available [address] [place], [address] 07/12/2023 11:22:39 07/12/19 24 07/13/2023 URINE CULTU RE urine culture Not Available [address] [place], [address] 07/13/2023 11:32:49 07/12/19 24 07/13/2023 URINE CULTU RE urine culture colon ies/m L Not Available [address] [place], [address] 07/13/2023 11:32:49 07/12/19 24 07/14/2023 URINE CULTU RE urine culture Not Available [address] [place], [address] 07/14/2023 12:09:33 07/12/19 24 07/14/2023 URINE CULTU RE urine culture colon ies/m L Not Available [address] [place], [address] 07/14/2023 12:09:33 07/12/19 24 07/14/2023 PSA, ULTRA SENSI TIVE PSA, ultrasensiti ve 0.01 NG/mL <= 6.5 Not Available [address] [place], [address] 07/18/2023 08:15:59 07/12/19 24 07/16/2023 TESTO STERO NE, TOTAL testosterone , total <7.0 NG/dL 240-95 0 abnormal Not Available [address] [place], [address] 07/18/2023 08:15:58 04/01/19 24 04/01/2023 elect avani sy am EKG PATIEN T NAME: Nain Mckeon UNIT #: [id number] ORDERChaparro NG PROVID ER: Jeane Arguello M.D. T #: [id number] [facility] ER: DEWAYNE JOHNSON MD DATE/T TYLER OF SERVIC E : 1750 : 1950 PERFOR [facility] LOCATI ON: ER ------ ------ --- APPROV ED REPORT ------ ------ -- Exam: Restin g ECG Reason for Exam: Dizzin ess Renudashawn t Locati on: E HR:96 bpm ECG Measur ements Heart Rate 96 AXIS OR 145 P 58 QRSd 97 QRS 56 QT 369 T 5 QTc 467 Conclu isabella Sinus rhythm ...nor mal P axis, V-rate 60- 99 ------ ------ ------ ------ ------ ------ ------ ------ ------ ------ ------ ------ ------ ------ ------ ------ ---- ------ - E-Sign Date: E-Sign Time: 1758 jdege [facility] [address] [place], [address] 04/03/2023 11:10:45 04/01/19 24 04/01/[facility]ud[facility] t Name: Nain Mckeon Unit #: [id number] Loc: ER Orderi ng Provid er: Accoun t #: [id number] Status : REG Primhi y Care [facility] er: Chet Johnson M.D. Date of Exam: Sex: M : 1950 Age: 72 Exam(s ) PROCED URE INFORM ATION: Exam: XR Chest Exam date and time: 024 7:21 PM Age: 72 years old Clinic al indica tion: Injury or trauma ; Blunt trauma (contu sions or hemato mas); Injury date: 4; Patien t HX: Fall, pneumo osmany? TECHNI QUE: Imagin g protoc ol: Radiol ogic exam of the chest. Views: 1 view. COMPAR BRAULIO: CT HEAD CERV SPINE FACIAL WO 024 7:12 PM FINDIN GS: Lungs: Low lung volume s. No gross pulmon yenni infilt rates or edema patter n. Minor bandli ke atelec tasis in the lung bases commen surate with low lung volume s. Pleura l spaces : No pleura l effusi on. No pneumo thorax . Heart/ Medias tinum: Heart size and pulmon yenni vascul ature within normal limits for portab le AP techni que and low lung volume s. No trache al/med iastin al shift. Bones/ joints : There is mild contou r irregu larity in the left latera l 5th, 6th, and 7th ribs likely repres enting chroni c rib fractu res, with a few chroni c rib fractu res partia lly visual ized in this region on CT abdome n and pelvis 2019. Intrap eriton eal space: Right upper quadra nt surgic al clips sugges t prior cholec ystect alton. IMPRES ISABELLA: 1. Low lung volume s with minor basila r subseg mental atelec tasis. No suspec nadia infilt rates. 2. No defini te acute rib fractu res. There are few chroni c lower left latera l rib fractu res. If the patien t is acutel y sympto matic in this region , consid er rib detail views for greate r sensit ivity/ specif icity. Dictat ed and Sarah iniguez d by: Gaetano Talavera MD. Orderi ng:Matteo reyes MD Access ion#=[id number] Orderbradley d By: CC: ------ ------ ------ ------ ------ ------ ------ ------ ------ ------ ------ ------ ---- Dictat ed By: Report s vrad 1920 Transc ribed By: Olivia Merge 1920 This is privil eged, confid ential inform ation intend ed only for the provid er named. Any use or distri bution by any person other than this provid er is strict ly prohib ited. If you receiv e this report in error, please notify us immedi ately at [phone] and return the origin al report to us at the addres s above. Thank- you. aurelio [facility] [address], [place], [address] 04/03/2023 11:10:46 04/01/1904/01/2023 vrad repor t Patien t Name: Nain Mckeon Unit #: [id number] Loc: ER Orderi ng Provid er: Accoun t #: [id number] Status : REG ER Primar y Care Provid er: Chet Johnson M.D. Date of Exam: Sex: M : 1950 Age: 72 Exam(s ) PROCED URE INFORM ATION: Exam: CT Head Withou t Contra st Exam date and time: 024 7:12 PM Age: 72 years old Clinic al indica tion: Injury or trauma ; Blunt trauma (contu sions or hemato mas); Consci ousnes s not specif ied; Forehe ad; Injury date: 4; Patien t HX: Fall, pain TECHNI QUE: Imagin g protoc ol: Comput ed tomogr aphy of the head withou t contra st. Radiat ion optimi zation : All CT scans at this facili ty use at least one of these dose optimi zation techni ques: automa nadia exposu re contro l; mA and/or kV adjust ment per patien t size (inclu collette target ed exams where dose is matche d to clinic al indica tion); or iterat marge recons tructi on. COMPAR BRAULIO: MR BRAIN WO 2018 2:25 PM FINDIN GS: Brain: Age-ap propri ate atroph y. No intrac ranial hemorr juma. No cerebr al edema. No mass. No large territ ory infarc t. Cerebr al ventri cles: No ventri culome bel. Parana alia sinuse s: Visual ized sinuse s are unrema rkable . No fluid levels . Mastoi d air cells: Visual ized mastoi d air cells are well aerate d. Bones/ joints : No skull fractu re. Degene rative right tempor omandi bular joint change . Soft tissue s: Unrema rkable . IMPRES ISABELLA: 1. No acute intrac ranial change s. No intrac ranial hemorr juma. 2. No skull fractu re. ====== ====== ====== ====== = PROCED URE INFORM ATION: Exam: CT Maxill ofacia l With Contr Exam date and time: 024 7:12 PM Age: 72 years old Clinic al indica tion: Injury or trauma ; Blunt trauma (contu sions or hemato mas); Consci ousnes s not specif ied; Forehe ad; Injury date: 4; Patien t HX: Fall, pain TECHNI QUE: Imagin g protoc ol: Comput ed tomogr aphy of the face with. Radiat ion optimi zation : All CT scans at this facili ty use at least one of these dose optimi zation techni ques: automa nadia exposu re contro l; mA and/or kV adjust ment per patien t size (inclu collette target ed exams where dose is matche d to clinic al indica tion); or iterat marge recons tructi on. COMPAR BRAULIO: MR BRAIN WO 2018 2:25 PM FINDIN GS: Orbita l caviti es: Ocular globes and orbits are unrema rkable . No acute featur es. Previo us ocular lens replac ement surger y sugges nadia. Bones/ joints : No facial bone fractu re. Degene rative featur es of the right tempor omandi bular joint. Parana alia sinuse s: Normal . No air-fl uid levels . Soft tissue s: Facial soft tissue s are unrema rkable in appear ance. No garrison hemato ma. No soft tissue gas or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 every day by oral route. 2022 active Not Available Not Available Not Avai lable olanzapin e 15 mg tablet Take 1 tablet by mouth daily at bedtime 2017 active [facility] Not Available Not Available Not Avai lable pravastat in 20 mg tablet 1 TAB QHS 12/11 completed Not Available Not Available Not Available Vistaril 25 mg capsule 1 capsule TID PRN 05/22 completed Not Available Not Available Not Available Seroquel 100 mg tablet Take 1 tablet every day by oral route in the evening. 08/02 completed Not Available Not Available Not Available mirtazapi ne 15 mg tablet 40 mg at bedtime [address] Warner Not Available Not Available Not Available cefuroxim e axetil 500 mg tablet Take 1 tablet by mouth twice a day 03/03 completed Not Available Not Available Not Available levofloxa tracy 750 mg tablet Take 1 tablet every day by oral route for 10 days. 08/02 completed Not Available Not Available Not Available propranol ol 20 mg tablet Take 1 tablet by mouth once a day for tremor active [facility] Not Available Not Available No t Available fluocinon desi 0.05 % topical cream apply 1-2 times a day to affected areas of psoriasi s. 07/26 completed Not Available Not Available Not Available Lactobaci llus rhamnosus GG 10 billion cell capsule Take 1 capsule every day by oral route. 2022 active Not Available Not Available Not Avai lable fluticaso ne propionat e 50 mcg/actua tion nasal spray,mayra pension [facility] 1 spray twice a day by intranas al route as needed. active Not Available Not Available No t Available Gentamici n Sulfate (Ophth) 0.3 % eye solution 2 GTTS EVERY 4 HOURS 06/16 completed Not Available Not Available Not Available lamotrigi ne 100 mg tablet TAKE 1.5 am, 1 pm active Not Available Not Available No t Available Tums 200 mg (as calcium carbonate 500 mg) chewable tablet 1-2 tabs q 2-4 hours PRN 05/27 completed Not Available Not Available Not Available Benadryl 25 mg capsule 1-2 tablet every six to eight hours as needed 08/12 completed Not Available Not Available Not Available Daily Multi-Vit sy tablet active Not Available Not Available Not Available Abilify 10 mg tablet Take 1 tab by mouth daily 04/11 completed Not Available Not Available Not Available Abilify 5 mg tablet Take 1 tab by mouth q AM for mood stabiliz ation 2020 active [facility] Not Available Not Available Not Avai lable Lupron Depot 30 mg (4 month) intramusc ular syringe kit q 3 mo 12/03 completed [facility] Not Available Not Available Not Available duloxetin e 20 mg capsule,d elayed release TAKE ONE CAPSULE BY MOUTH EVERY DAY active Not Available Not Available No t Available duloxetin e 30 mg capsule,d elayed release TAKE ONE CAPSULE BY MOUTH EVERY DAY completed Not Available Not Available Not Available Cymbalta 60 mg capsule,d elayed release Take 1 capsule by mouth every morning active Not Available Not Available No t Available Vitamin D3 1 tab daily 2022 active Not Available Not Available Not Avai lable FIRST-Yumiko thwash BLM 5 ml swish and swallow TID 05/27 completed Not Available Not Available Not Available Saltystangary CF (PE-DM-gu aif) 5 mg-10 mg-100 mg/5 mL oral liquid 10 mL q 4 hours PRN 05/27 completed Not Available Not Available Not Available quetiapin e 50 mg tablet TAKE TWO TABLETS BY MOUTH AT BEDTIME INCREASE DOSE IN 30 DAYS completed Not Available Not Available Not Available quetiapin e 400 mg tablet TAKE ONE AND ONE-HALF TABLETS BY MOUTH EVERY DAY AT BEDTIME 08/02 completed Not Available Not Available Not Available melatonin 5 mg tablet Take 1.5 tab by mouth at bedtime as needed 2020 active [facility] Not Available Not Available Not Avai lable vitamin E (dl, acetate) 180 mg (400 unit) capsule Take 1 capsule by mouth once a day active [facility] Not Available Not Available Not Available Zytiga 250 mg tablet 1 tablet PO QD 08/[address] [place] Not Available Not Available Not Available turmeric root extract 500 mg capsule Take 1 capsule twice a day by oral route. 2022 active Not Available Not Available Not Avai lable melatonin 10 mg tablet Take 1 tablet by mouth at bedtime as needed 02/01 completed [facility] [place] Not Available Not Available Not Available duloxetin e 40 mg capsule,d elayed release TAKE ONE CAPSULE BY MOUTH EVERY DAY completed Not Available Not Available Not Available Biotene PBF mouthwash 1 cap full 2 times a day PRN 2019 active Not Available Not Available Not Avai lable turmeric 450 mg-turmer ic root extract 50 mg capsule 1 capsule PO BID 12/03 completed patient started Not Available Not Available Not Available Ingrezza 40 mg capsule Take 1 capsule by mouth at bedtime 03/17 completed Not Available Not Available Not Available Shingrix (PF) 50 mcg/0.5 mL intramusc ular suspensio n, kit Give one dose 0.5 mg then repeat second dose in 2 to 4 months 02/01 completed Not Available Not Available Not Available Xtandi 40 mg tablet Take 4 tablets every day by oral route. 04/27 completed stopped by oncology 04/26/23 Not Available Not Available Not Available Vitals Date Recorded Body height Body mass index (BMI) Body weight Body temperature Heart rate Oxygen saturation Oxygen saturation in Arterial blood by Pulse oximetry Systolic blood pressure Diastolic blood pressure Provider Name and Address Organization Details Last Updated DateTime 4 160.66 cm 32.5 kg/m2 57171.5 9 g 97.2 [degF] 74 /min 98 % 98 % 128 mm[Hg] 76 mm[Hg] JOHNNIE WHITEHEAD MA [facility] 4 08:15:06 Date Recorded Body height Body mass index (BMI) Body weight Body temperature Oxygen saturation Oxygen saturation in Arterial blood by Pulse oximetry Heart rate Systolic blood pressure Diastolic blood pressure Provider Name and Address Organization Details Last Updated DateTime 4 160.66 cm 32.9 kg/m2 75687.7 7 g 97.6 [degF] 98 % 98 % 78 /min 126 mm[Hg] 84 mm[Hg] JOHNNIE WHITEHEAD MA [facility] 4 11:22:22 Date Recorded Body height Body mass index (BMI) Body weight Body temperature Oxygen saturation Oxygen saturation in Arterial blood by Pulse oximetry Heart rate Systolic blood pressure Diastolic blood pressure Provider Name and Address Organization Details Last Updated DateTime 4 160.66 cm 32.9 kg/m2 39264.7 7 g 97.3 [degF] 98 % 98 % 78 /min 130 mm[Hg] 78 mm[Hg] JOHNNIE WHITEHEAD MA [facility] 4 14:18:32 Date Recorded Body height Body mass index (BMI) Body weight Body temperature Respiratory rate Oxygen saturation Oxygen saturation in Arterial blood by Pulse oximetry Heart rate Systolic blood pressure Diastolic blood pressure Provider Name and Address Organization Details Last Updated DateTime 4 160.66 cm 32.9 kg/m2 65950.7 7 g 99.9 [degF] 17 /min 94 % 94 % 102 /min 138 mm[Hg] 75 mm[Hg] Janae Serrano RN [facility] 4 11:47:14 Date Recorded Body height Body mass index (BMI) Body weight Body temperature Oxygen saturation Oxygen saturation in Arterial blood by Pulse oximetry Heart rate Systolic blood pressure Diastolic blood pressure Provider Name and Address Organization Details Last Updated DateTime 4 160.66 cm 31.5 kg/m2 89692.0 3 g 97.2 [degF] 97 % 97 % 78 /min 120 mm[Hg] 80 mm[Hg] JOHNNIE WHITEHEAD MA [facility] 4 11:08:14 Social History Question Answer Notes LastModified by Organizat ion Details LastModified Time Tobacco Smoking Status Former Smoker couple years in college JOHNNIE WHITEHEAD MA [facility], [facility] 02/17/2023 13:45:19 Do You Have An Advance Directive? No Information not available 02/17/2023 Is Blood Transfusion Acceptable In An Emergency? Yes Information not available 02/17/2023 Are You Currently Employed? No Retired Information not available 02/17/2023 What Type Of Diet Are You Following? REGULAR Information not available 02/17/2023 What Is The Highest Grade Or Level Of School You Have Completed Or The Highest Degree You Have Received? [id number] Information not available 02/17/2023 How Many Times Per Week Do You Exercise? 5-7 Times Per Week Information not available 02/17/2023 When Did You Quit Smoking? 16+yearssin celastcigar ette Information not available 02/17/2023 What Do You Do For Fun? Swim, Pickleball, Walk Dog, Read Information not available 02/17/2023 Would You Say That, In General, Your Health Is Good Information not available 02/17/2023 Who Do You Live With? Spouse And Dog Information not available 02/17/2023 Do You Have A Medical Power Of Meringuer? No Paperwork Given Information not available 02/17/2023 What Was The Date Of Your Most Recent Tobacco Screening? 07/02/2023 Information not available 07/02/2023 Do You Have An Out Of Hospital DNR? No Information not available 02/17/2023 Do You Use Protection During Sex? No Information not available 02/17/2023 Do You Use Protection Against STDs? Usually Information not available 02/17/2023 What Is Your Relationship Status? Information not available 02/17/2023 Are You Sexually Active? Yes Information not available 02/17/2023 Has Tobacco Cessation Counseling Been Provided? Yes Information not available 07/02/2023 On What Date Was Tobacco Cessation Counseling Provided? 07/02/2023 Information not available 07/02/2023 Are You Currently In School? No Information not available 02/17/2023 Do You Have Any Dietary Restrictions? No Information not available 02/17/2023 Do You Or Have You Ever Used Any Other Forms Of Tobacco Or Nicotine? No Information not available 02/17/2023 Sex: Male Functional Status Question Answer Note LastModified by Organizat ion Details LastModified Time What is your exercise level? Occasional Information not available 02/17/2023 Mental Status None recorded. Family History Relationship Description Onset Age of this Age Resolved Age Notes Mother Family history of ca ncer of colon Notes:*Problem: Mother had c olon CA in 60's and from vascular problems age 80's Father had Alzheimer's and arterial stenosis of cardiac arteries. in 80's No family hx AODM. Medical History No medical history recorded. Immunizations Vaccine Type Date Status Provider Name and Address Organization Details Recorded Time Td (adult), 2 Lf tetanus toxoid, preservative free, adsorbed 07/26/2017 completed Not Available [facility] 01/14/2023 04:07:01 Tdap 01/25/2007 completed Not Available [facility] 04:07:03 zoster live 09/21/2011 completed Not Available [facility] 01/14/2023 04:07:03 Pneumococcal conjugate PCV 13 06/19/2015 completed Not Available [facility] 01/14/2023 04:07:04 Influenza, high-dose, trivalent, PF 12/08/2017 completed Not Available [facility] 01/14/2023 04:07:04 Influenza, split virus, trivalent, preservative 02/11/2016 completed Not Available [facility] 01/14/2023 04:07:05 Influenza, split virus, quadrivalent, preservative 11/26/2016 completed Not Available [facility] 01/14/2023 04:07:05 Influenza, high-dose, quadrivalent, PF 12/02/2020 completed Not Available [facility] 01/14/2023 04:07:06 Influenza, high-dose, quadrivalent, PF 12/04/2019 completed Not Available [facility] 01/14/2023 04:07:06 Influenza, high-dose, quadrivalent, PF 12/14/2021 completed Not Available [facility] 01/14/2023 04:07:06 COVID-19, mRNA, LNP-S, PF, 100 mcg/0.5mL dose or 50 mcg/0.25mL dose 05/30/2020 completed Not Available [facility] 01/14/2023 04:07:07 COVID-19, mRNA, LNP-S, PF, 100 mcg/0.5mL dose or 50 mcg/0.25mL dose 01/07/2021 completed Not Available [facility] 01/14/2023 04:07:07 SARS-COV-2 (COVID-19) vaccine, UNSPECIFIED 05/02/2020 completed Not Available [facility] 01/14/2023 04:07:07 SARS-COV-2 (COVID-19) vaccine, UNSPECIFIED 06/23/2021 completed Not Available [facility] 01/14/2023 04:07:08 SARS-COV-2 (COVID-19) vaccine, UNSPECIFIED 12/14/2021 completed Not Available [facility] 01/14/2023 04:07:08 Pneumococcal conjugate PCV20, polysaccharide [id number] conjugate, adjuvant, PF 07/27/2022 completed Not Available [facility] 01/14/2023 04:07:08 COVID-19, mRNA, LNP-S, bivalent, PF, 30 mcg/0.3 mL dose 07/27/2022 completed Not Available [facility] 01/15/20 04:07:08 pneumococcal polysaccharide PPV23 05/24/2014 completed Not Available [facility] 2022 04:07:09 influenza, unspecified formulation 01/22/2019 completed Not Available [facility] 01/14/2023 04:07:11 SARS-COV-2 (COVID-19) vaccine, UNSPECIFIED 01/03/2023 completed LAINE WELLER, [facility] 02/17/2023 13:55:11 influenza, unspecified formulation 11/18/2022 completed LAINE WELLER, [facility] 02/17/2023 13:55:44 Influenza, high-dose, quadrivalent, PF 11/18/2022 completed Not Available [facility] 03/18/2023 05:33:19 Past Encounters Encounter ID Performer Location Encounter Start Date Encounter Closed Date Diagnosis/Indication Diagnosis SNOMED-CT Code [id number] DEWAYNE JOHNSON MD [address] [address] 02/17/2023 13:26:31 02/17/2023 15:28:29 Adult health examination [id number] Bipolar II disorder 8322 5003 Malignant tumor of prostate 452196791 Hypothyroidism 88536090 Hyperlipidemia 02587622 [id number] SORAYA HOLDER PA-C [address] [address] 03/04/2023 10:45:49 03/04/2023 14:27:34 Subungual hematoma of foot 558096296 [id number] DEWAYNE JOHNSON MD [address] [address] 03/24/2023 08:05:25 03/24/2023 09:01:46 Epidermoid cyst of skin 221367753 [id number] DEWAYNE JOHNSON MD [address] [address] 05/05/2023 10:51:25 05/05/2023 12:35:01 Body mass index 30+ - obesity 763907556 Allergic rhinitis 691558 04 [id number] DEWAYNE JOHNSON MD [address] [address] 05/11/2023 13:53:04 05/11/2023 14:45:32 Tension-type headache 857836339 Disorder of vision 85637 629 [id number] SORAYA HOLDER PA-C [address] [place] [address] 07/02/2023 11:03:20 07/02/2023 13:31:12 Blood in urine 05444100 Dental abscess 321303572 Unsteady when walking 22 282771 [id number] DEWAYNE JOHNSON MD [address] [address] 08/03/2023 10:49:43 08/03/2023 11:38:20 Tension-type headache 030223763 Health Concerns Section Related Observation LastModified by Organization Detai ls LastModified Time None Recorded Concern Status LastModified by Organization Details LastModified Time None Recorded Advance Directives Directive N: Payers Encounter Date Sequence Insurance Name Policy Number Policy Walker Covered Member ID Walker Member ID Guarantor Name 03/24/2023 2 [email or web address] Application (MEDICARE SUPPLEMENT) Nain Mckeon [id number] Nain Mckeon 03/24/2023 1 [place] [employer] Nain Mckeon [id number] Nain Mckeon 05/05/2023 2 [email or web address] Application (MEDICARE SUPPLEMENT) Nain Mckeon [id number] Nain Mckeon 05/05/2023 1 [place] [employer] Nain Mckeon [id number] Nain Mckeon 05/11/2023 2 [email or web address] Application (MEDICARE SUPPLEMENT) Nain Mckeon [id number] Nain Mckeon 05/11/2023 1 [place] [employer] Nain Mckeon [id number] Nain Mckeon 07/02/2023 2 [email or web address] Application (MEDICARE SUPPLEMENT) Nain Mckeon [id number] Nain Mckeon 07/02/2023 1 [place] [employer] Nain Mckeon [id number] Nain Mckeon 08/03/2023 2 [email or web address] Application (MEDICARE SUPPLEMENT) Nain Mckeon [id number] Nain Mckeon 08/03/2023 1 [place] [employer] Nain Mckeon [id number] Nain Mckeon Notes Date Note Type Note Provider Name and Address Organization Details Recorded Time 03/24/2023 text/html HPI Notes: DeniesPatient in with concerns of upper chest. States was a pimple-like lesion there initially, he notes he was picking and squeezing it. Notes now a little bit of irritated skin, with a little serous weeping. The whole thing started about a month ago MD [address], [place], [address], [facility]. 03/24/2023 08:33:48 05/05/2023 text/html HPI Notes: Rafi demarco was seen concerned about his breathing. He was hospitalized last month with exacerbation of his bipolar disease. Turns out that one of his chemo medications interact with his Seroquel. Also figured out things settle down. He feels back to his usual self again. States he had a sense of sinus congestion slight pressure. To difficulty breathing through his nose. He has had no fevers chills myalgias arthralgias. No chest pain or palpitations. No coughing congestion or dyspnea. Recent labs from his oncologist all reassuring including CBC CMP his PSA and testosterone levels. He does have a history of some seasonal allergies. MD [address], [place], [address], [facility], [facility]. 05/09/2023 00:07:32 05/11/2023 text/html HPI Notes: Rafi demarco is complaining what sound like tension headaches. Some tension in his neck and occipital area. Worse last few days. Does admit this is worse when he turns head left and right. There is nothing anterior. He has had no recent trauma or illness. States vision is a little cloudy, has not seen an continuity person for some time. No fevers chills or illness. The Flonase we suggested last visit he states is helping his sinus congestion. No peripheral neurologic symptoms such as numbness weakness or tingling MD [address], [place], [address], [facility]. 05/15/2023 19:02:03 07/02/2023 text/html HPI Notes: Nain is a 72-year-old male who presents with 3 complaints as below. #1 he noticed on evening some mild discomfort of the teeth on the left lower side and by Tuesday evening tooth ache seem to improve however the gums became red, swollen and now he has some notable facial swelling. Has not had drainage from the tooth or gums. Has not had fever. Did feel nauseous prior to this beginning for 1 day. See below for more details. Took some ibuprofen which helped minimally. # 2 Also has noted increased unsteadiness. He was started on Seroquel in April for manic episode which began after initiation of medications his prostate cancer. Initially was on a higher dose which started some unsteadiness and had started to decrease dosing. Again recently decreased about a week and a half ago all done in combination with his med management provider. He felt more unsteady today when in the bathroom and was unsure if this was related to above possible dental infection and/or possibility of urinary tract infection. He did actually lose balance but did not fall to the ground. He was able to catch himself and slowly lowered to the ground. Did not hit his head or lose consciousness #3 has concern for urinary tract infection. He recently started high-dose radiation in [place] for prostate cancer. First treatment was on July 15, second treatment was on July 22. He had a catheter in place for 1 week after the second treatment which was just removed on Tuesday. He was told he would have some blood in his urine and his stool. He was told to increase water intake. He has been doing such. He has had times where urine has been completely clear and other times where it has been bloody. He was also instructed to use Azo up to 3 times a day as needed. Has not used it today. Did use it some yesterday. Is unclear if he sees correlation with use of Azo causing change in color of urine or not. He has noted some increased discomfort with urination. Has passed a few clots. SORAYA HOLDER PA-C [address], [place], [address], [facility]. 07/02/2023 15:07:48 08/03/2023 text/html HPI Notes: Nain here with continued issues with what sound like likely tension headaches. He gets them most days, at times wakes up with them. Has discomfort in his nuchal muscles and bitemporal area. He is taken some ibuprofen seem to help. He has had no recent injuries or illnesses. No visual changes photophobia photophobia nausea or peripheral neurologic symptoms. He admits has been under a lot of stress. He needs to tear up and breakdown of it when he starts talking about it. He states he is finally coming to realization of the indications of his prostate cancer. Does by therapist, admits he has not talked much about it but agrees to be a good idea to do so. Had recent change in his psychiatric medications. Was taken off the Seroquel, thinking perhaps this caused lightheadedness. Continues on his duloxetine and Lamictal. Feels that the medication changes are not related to his present symptoms. DEWAYNE JOHNSON MD [address], [place], [address], [facility]. 08/07/2023 12:50:52
--- OUTSIDE RECORDS SUMMARY | 2023-10-12 02:42 | XMS_ITS | Encounter Summary ---
Author Organization [facility] Address [facility] [place] [address] Care Team Providers Care Web Services Architect Name Role Phone Celio Sanders MD Primary Care Provider [phone] Encounter Details Date Type Department Care Team (Latest Contact Info) Description 05/24/2023 Travel Social History Tobacco Use Types Packs/Day Years Used Date Smoking Tobacco: Never Smokeless Tobacco: Never Alcohol Use Standard Drinks/Week Comments Not Currently 0 (1 standard drink = 0.6 oz pur e alcohol) beer and wine twice a month [facility] Utilities Answer Date Recorded In the past 12 months has th e electric, gas, oil, or water company [...] place to sleep or slept in a detention (including now)? No 02/15/2023 Sex and Gender Information Value Date Recorded Sex Assigned at Not on file Gender Identity Not on file Sexual Orientation Not on file documented as of this encounter Plan of Treatment Upcoming Encounters Date Type Department Care Team (Late st Contact Info) Description 10/24/2023 1:30 PM EDT Office Visit Hematology/Oncology at [address] [phone] Bisi Cheng APRN [facility] [address] documented as of this encounter Visit Diagnoses Not on filedocumented in this encounter Care Teams Web Services Architect Relationship Specialty Start Date End Date Celio Sanders MD [address] [place] [address] PCP - General Internal Medicine 05/19/16 documented as of this encounter
--- OUTSIDE RECORDS SUMMARY | 2023-10-12 02:42 | XMS_ITS | Encounter Summary ---
[place] [address] Care Team Providers Care Rn Visiting Name Role Phone Celio Sanders MD Primary Care Provider [phone] Reason for Visit * Reason Comments Injections Lupron * Treatment/Therapy Plan Authorization (Routine) - Authorized Specialty Diagnoses / Procedures Referred By Contac t Referred To Contact Hematology and Oncology Diagnoses Recurrent prostate cancer Procedures TC LEUPROLIDE ACETATE 7.5MG, FOR DEPOST SUSPENSION (LUPRON DEPOT) Ronnie Vazquez MD [address] [place] [address] [place] [address] [facility] [address] [place] [address] Referral ID Status Reason Start Date Expiration Date V isits Requested Visits Authorized [id number] Authorized 02/17/2023 02/17/2024 1 103 Encounter Details Date Type Department Care Team (Late st Contact Info) Description 04/26/2023 10:30 AM EST Infusion Hematology Oncology at [address] [phone] Recurrent prostate cancer Social History Tobacco Use Types Packs/Day Years Used Date Smoking Tobacco: Never Smokeless Tobacco: Never Alcohol Use Standard Drinks/Week Comments Not Currently 0 (1 standard drink = 0.6 oz pur e alcohol) beer and wine twice a month [facility] Utilities Answer Date Recorded In the past 12 months has [employer], gas, oil, or water company threatened to [...] place to sleep or slept in a care home (including now)? No 02/15/2023 Sex and Gender Information Value Date Recorded Sex Assigned at Not on file Gender Identity Not on file Sexual Orientation Not on file documented as of this encounter Progress Notes * Mindi Vargas RN - 04/26/2023 10:30 AM EST Infusion Note Diagnosis:Prostate Cancer Treatment: Lupron Injection Lupron injected in right gluteal. Patient instructed on side effects of Lupron. Patient states understanding of teaching, Patient aware to call clinic with any questions or concerns. Plan: Return to clinic as scheduled. documented in this encounter Plan of Treatment Upcoming Encounters Date Type Department Care Team (Late st Contact Info) Description 10/24/2023 1:30 PM EDT Office Visit Hematology/Oncology at [address] [phone] Bisi Cheng, TRACTOR TRAILER MOVING VAN DRIVER [facility] [place] [address] documented as of this encounter Visit Diagnoses Diagnosis Recurrent prostate cancer documented in this encounter Administered Medications Inactive Administered Medications - up to 3 most recent administrations Medication Order MAR Action Action Date Dose Rate Site leuprolide (Lupron Depot) injection 7.5 mg 7.5 mg, Intramuscular, ONCE, 1 dose, On Tue04/26/23 at 1115, Routine, This agent is restricted to outpatient use. Is this drug being given as an outpatient? Yes Given 04/26/2023 11:07 AM EST 7.5 mg Right Gluteal documented in this encounter Care Teams Rn Visiting Relationship Specialty Start Date End Date Celio Sanders MD [address] [place] [address] PCP - General Internal Medicine 05/19/16 documented as of this encounter
--- OUTSIDE RECORDS SUMMARY | 2023-10-12 02:42 | XMS_ITS | Encounter Summary ---
Author Organization [facility] Address [facility] [place] [address] Care Team Providers Care Confectionery Cooker Name Role Phone Celio Sanders MD Primary Care Provider [phone] Encounter Details Date Type Department Care Team (Late st Contact Info) Description 02/23/2023 Telephone Hematology/Oncology at [address] [phone] Harjinder Snyder MD [facility] DR HEMATOLOGY [place] [address] Social History Tobacco Use Types Packs/Day Years Used Date Smoking Tobacco: Never Smokeless Tobacco: Never Alcohol Use Standard Drinks/Week Comments Not Currently 0 (1 standard drink = 0.6 oz pur e alcohol) beer and wine twice a month [facility] Utilities Answer Date Recorded In the past 12 months has Differential, gas, oil, or water [employer] threatened to shut off services in your [...] 1:30 PM EDT Office Visit Hematology/Oncology at [address] [phone] Bisi Cheng APRN [facility] [place] [address] documented as of this encounter Visit Diagnoses Diagnosis Prostate cancer metastatic to intrapelvic lymph node documented in this encounter Care Teams Confectionery Cooker Relationship Specialty Start Date End Date Celio Sanders MD [address] [place] [address] PCP - General Internal Medicine 05/19/16 documented as of this encounter
--- OUTSIDE RECORDS SUMMARY | 2023-10-12 02:42 | XMS_ITS | Encounter Summary ---
Author Organization [facility] Address [facility] [place] [address] Care Team Providers Care Cnc Maintenance Technician Name Role Phone Celio Sanders MD Primary Care Provider [phone] Encounter Details Date Type Department Care Team (Late st Contact Info) Description 04/26/2023 10:00 AM EST Office Visit Hematology/Oncology at [address] [phone] Harjinder Ruffin MD [facility] [place] [address] Bisi Cheng APRN [facility] [place] [address] Prostate cancer metastatic to intrapelvic lymph node (Primary Dx) Social History Tobacco Use Types Packs/Day Years Used Date Smoking Tobacco: Never Smokeless Tobacco: Never Alcohol Use Standard Drinks/Week Comments Not Currently 0 (1 standard drink = 0.6 oz pur e alcohol) beer and wine twice a month [facility] Utilities Answer Date Recorded In the past 12 months has [employer] electric, gas, oil, or water company threatened [...] place to sleep or slept in a intermediate (including now)? No 02/15/2023 Sex and Gender Information Value Date Recorded Sex Assigned at Not on file Gender Identity Not on file Sexual Orientation Not on file documented as of this encounter Last Filed Vital Signs Vital Sign Reading Time Taken Comments Blood Pressure 171/94 04/26/2023 10:20 AM EST Pulse 96 04/26/2023 10:20 AM EST Temperature 36.2 ??C (97.1 ??F) 04/26/2023 10:[address] Respiratory Rate 16 04/26/2023 10:20 AM EST Oxygen Saturation 99% 04/26/2023 10:20 AM EST Inhaled Oxygen Concentration - - Weight 83.5 kg (184 lb) 04/26/2023 10:20 AM EST Height 162.9 cm (5' 4.13) 04/26/2023 10:[address] Body Mass Index 31.45 04/26/2023 10:20 AM EST documented in this encounter Progress Notes * Harjinder Ruffin MD - 04/26/2023 10:00 AM EST Images from the original note were not included. [facility] Medical Oncology [place] [id number] ONCOLOGY F/u visit REFERRING: Dr TaylorDr Diane chacon ONCOLOGY SUMMARY: Recurrent prostate cancer -Initially treated for high-risk prostate adenocarcinoma (Bx 04/27/2016: GG4 [4+4] in two right mid cores, GG3 disease in 2 right base cores a/w extensive PNI), PSA 47.5 -Staging CT: enlarged right internal iliac node, MRI c/w right PZ disease with EPE, and bone scan was negative -Completed standard fractionation EBRT with long course of ADT (abiraterone was recommended and started Jun 2017. Stopped after 2 months due to exacerbation of bipolar Sx) -PSA cristin was undetectable. Apr 2021 PSA = 0.19, 0.26 in July 2021, 0.56 in Jan 2022, 1.05 Jun 2022 and most recent value 1.7 in Oct 2022 -PSMA PET 11/09/2022: Uptake in the prostatic apex with no evidence of regional/distant disease -He was recommended to get an MRI and prostate biopsy -12/30/22 pelvic MRI did not show extraprostatic disease -01/06/23 PSA 1.4 - -01/20/23 prostate biopsy revealed prostatic adenocarcinoma, Grade Group 5 (Danbury score 5+5=10) Genetic testing Mar 2018: pathogenic variant in BRCA2 (c.1929del, [id number] fs15). VUS in AXIN2 and CTNNA1 -01/06/23 PSA 1.4 HPI: Nain Mckeon is a 72 y.o. M here to discuss mgmt of prostate cancer. I have reviewed his workup todate and confirmed this with the patient and his and summarized galvan findings above. Hx is notable for bipolar d.o. He is otherwise healthy and denies pain, recent wt loss, night sweats. He tolerated lupron with significant hot flashes, fatigue. Review of systems is notable for frequency (every2 hours during the day) and nocturia (2-3 times a night) Interval history: Nain is in clinic for follow-up appointment on prostate cancer. He started enzalutamide on March 14. He had a fall and? Seizures with no witnessed seizures activity presented to emergency department on April 01 blood pressure was elevated above 200/75 he was in manic phase of his bipolar. He he was admitted to mental health for 4 overnight. He was stopped Xtandi on April 14. Still working on controlling his bipolar disorder. A REVIEW OF SYSTEMS: Aside from above, the remainder of the the ROS was negative PAST MEDICAL HISTORY: Past Medical History: Diagnosis Date Anxiety Finger fracture multiple from basket ball injuries Hyperlipidemia Prostate cancer Past Surgical History: Procedure Laterality Date APPENDECTOMY burst CHOLECYSTECTOMY, LAPAROSCOPIC PRO COLONOSCOPY, DIAGNOSTIC N/A 05/12/2021 COLONOSCOPY, DIAGNOSTIC performed by Nicky Bray MD at [facility] ENDOSCOPY PROSTATE BIOPSY US GUIDED BIOPSY PROSTATE WITH URONAV FUSION 01/20/2023 US Guided Biopsy Prostate with Uronav Fusion 01/20/2023 [facility] RAD ULTRASOUND MEDS: Medications 04/26/23 1024 Medication Sig Taking? b complex vitamins Capsule Take 1 capsule by mouth daily. Yes QUEtiapine (SEROquel) 100 mg Tablet Take 600 mg by mouth nightly. Yes cholecalciferol, vitamin D3, (VITAMIN D3 ORAL) Take by mouth. Yes lactobacillus rhamnosus, GG, (CULTURELLE) 10 billion cell Capsule Take 1 capsule by mouth daily. Yes multivitamin (THERAGRAN) Tablet Take 1 tablet by mouth nightly. Yes lamoTRIgine (LAMICTAL) 150 mg Tablet Take 1 tablet by mouth daily. Patient taking differently: Take 200 mg by mouth daily. Yes TURMERIC ROOT EXTRACT ORAL Take 1 capsule by mouth 2 times daily. Yes pravastatin (PRAVACHOL) 40 mg Tablet Take 40 mg by mouth daily. Yes LEVOTHYROXINE SODIUM (LEVOTHROID ORAL) Take 75 mcg by mouth daily. Yes enzalutamide (Xtandi) 40 mg tablet Take 4 tablets by mouth daily. Take within 30 minutes after eating. Call clinic before/prior to starting medication/script. Indications: non-metastatic castration-sensitive prostate cancer with biochem recurrence at high risk for mets Patient not taking: Reported on 04/26/2023 vitamin E mixed (NATURAL VITAMIN E ORAL) Take by mouth. DULoxetine DR (Cymbalta) 30 mg Capsule, Delayed Release(E.C.) Take 30 mg by mouth daily. 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 PS: ECOG = 0 General: NAD Deferred Pathology: 01/20/2023 prostatic adenocarcinoma, Grade Group 5 (Andre score 5+5=10) LABS: 04/19/2023 BUN 15, creatinine 1.0, TB 0.4, AST 28, ALT 39, WBC 6.83, hemoglobin 12.3, platelet , 02/15/2023 BUN 31, creatinine 1.1, calcium 9.3, WBC 7.94, hemoglobin 13.1, platelet count 341 PSA testosteron 04/19/23 0.04 0.04 01/06/23 1.4 10/01/22 1.7 IMAGING STUDIES: 12/30/22 pelvic MRI: Extraprostatic disease: Seminal vesicle involvement:No Lymphadenopathy:No Sphincter involvement:No Bladder involvement:No Osseous metastases: No MRI-derived Extraprostatic extension risk: Grade 2: 38.2% (Curvilinear contact length and capsular bulge/irregularity) Other findings: None. IMPRESSION Lesion 1 PZ: PI-RADS 5. T2 location: axial series 8001, image 19; sagittal series 7001, image 19. I have personally reviewed the images and radiology reports and summarized the findings as above ASSESSMENT AND PLAN: 72 y.o. male with local recurrence of high risk prostate cancer s/p XRT and 3 years of ADT. He did not tolerate abiraterone and prednisone. Nain follows with with Dr. Vazquez and started ADT on February 03. He has an appointment with radiation oncologist Dr. Victorino Hassan at the [facility] Given his high Andre score question is if we should intensify systemic treatment with secondary hormonal therapy. I am not aware about the data on combination of salvage local radiation therapy, ADT and androgen receptor blockers, but there is recently published data on enzalutamide for PSA only disease in patient with PSA improved to and PSA doubling time below 9 months . In this phase 3 trial, we enrolled patients with prostate cancer who had high- risk biochemical recurrence with a prostate-specific antigen doubling time of 9 months or less. A total of 1068 patients underwent randomization: 355 were assigned to the combination group, 358 to the leuprolide-alone group, and 355 to the monotherapy group. The patients were followed for a median of 60.7 months. At 5 years, metastasis-free survival was 87.3% (95% confidence interval [CI], 83.0 to 90.6) in the combination group, 71.4% (95% CI, 65.7 to 76.3) in the leuprolide-alone group, and 80.0% (95% CI, 75.0 to 84.1) in the monotherapy group. With respect to metastasis-free survival, enzalutamide plus leuprolide was superior to leuprolide alone (hazard ratio for metastasis or , 0.42; 95% CI, 0.30 to 0.61; P<0.001); enzalutamide monotherapy was also superior to leuprolide alone (hazard ratio for metastasis or , 0.63; 95% CI, 0.46 to 0.87; P=0.005). No new safety signals were observed, with no substantial between-group differences in [id number] measures. CONCLUSIONS In patients with prostate cancer with high-risk biochemical recurrence, enzalutamide plus leuprolide was superior to leuprolide alone with respect to metastasis-free survival; enzalutamide monotherapy was also superior to leuprolide alone. The safety profile of enzalutamide was consistent with that shown in previous clinical studies, with no apparent detrimental effect on quality of life. (Fundedby [employer] and [employer]; [facility] ClinicalTrials.gov number, [id number]. opens in new tab.) On January 20 of this year FDA approved enzalutamide either with combination with ADT or as monotherapy for biochemical recurrence of prostate cancer We discussed side effects of enzalutamide which include but not limited to fatigue, elevated blood pressure, back pain, diarrhea, arthralgia, hot flush, peripheral edema, musculoskeletal pain, headache, muscular weakness, dizziness, insomnia, worsening balance and frequent falls. Seizures occurred in 0.9 percent of patients treated with enzalutamide. We can use enzalutamide combination of ADT and XRT or after his treatment if his PSA started to rise again. Printed information was given to the patient. He wants to think about that option. He will discuss it with radiation oncologist Dr. Hassan when he will see him in 10 days. Nain will continue to follow with Dr. Vazquez as scheduled The plan was discussed with the patient and his in details. All questions were answered to patient's satisfaction. 04/26/2023 Nain had a fall on April 01 and went to emergency room. He worries that he may have PRES syndrome from Xtandi. Xtandi on hold since April 14. PSA 0.04. He has good response to ADT and? Xtandi, but I think risks of continuation of Xtandi evaluate benefits. I recommend to hold enzalutamide. Continue ADT and he will follow-up with radiation oncologist Dr. Hassan at [facility] I can see him back in 3 months with blood work Plan: Stop Xtandi Continue leuprolide as per Dr. Vazquez Next visit with MD in 3 months with CBC, CMP, PSA and testosterone HARJINDER RUFFIN MD, PhD Oncology This encounter was primarily counseling-based (>50 % of total time) with total time of 40 minutes, of which 30 minutes was spent with the patient/family discussing: * Diagnostic/test results and/or recommendations for additional diagnostic or confirmatory studies; * Prognosis - related of the diagnosis/stage of the disease and course of treatment; * Risks and benefits of pertinent management and treatment options; * Instructions for disease management and the importance of compliance with recommended treatment; * Risk factor reduction, including additional screening and/or surveillance studies, * Patient and family education, answering questions/concerns. documented in this encounter Plan of Treatment Upcoming Encounters Date Type Department Care Team (Late st Contact Info) Description 10/24/2023 1:30 PM EDT Office Visit Hematology/Oncology at [address] [phone] Bisi Cheng, [facility] [place] [address] Scheduled Orders Name Type Priority Associated Diagnoses Orde r Schedule PSA (Ultrasensitive) Lab Routine Prostate cancer metastatic to intrapelvic lymph node Every 3 months for 4 Occurrences starting 04/26/2023 until 04/26/2024 CBC (with Diff) Lab Routine Prostate cancer metastatic to intrapelvic lymph node Every 3 months for 4 Occurrences starting 04/26/2023 until 04/26/2024 Comprehensive metabolic panel (non-fasting) Lab Routine Prostate cancer metastatic to intrapelvic lymph node Every 3 months for 4 Occurrences starting 04/26/2023 until 04/26/2024 Testosterone, total Lab Routine Prostate cancer metastatic to intrapelvic lymph node Every 3 months for 4 Occurrences starting 04/26/2023 until 04/26/2024 documented as of this encounter Visit Diagnoses Diagnosis Prostate cancer metastatic to intrapelvic lymph node- Primary documented in this encounter Care Teams Cnc Maintenance Technician Relationship Specialty Start Date End Date Celio Sanders MD [address] [place] [address] PCP - General Internal Medicine 05/19/16 documented as of this encounter
--- OUTSIDE RECORDS SUMMARY | 2023-10-12 02:42 | XMS_ITS | Encounter Summary ---
Author Organization Formerly [facility], [facility] Address [facility] [place] [address] Care Team Providers Care Curtain Hemmer Automatic Name Role Phone Celio Sanders MD Primary Care Provider [phone] Encounter Details Date Type Department Care Team (Late st Contact Info) Description 02/24/2023 Telephone Hematology/Oncology at [address] [phone] Kori Haas, RN Social History Tobacco Use Types Packs/Day Years Used Date Smoking Tobacco: Never Smokeless Tobacco: Never Alcohol Use Standard Drinks/Week Comments Not Currently 0 (1 standard drink = 0.6 oz pur e alcohol) beer and wine twice a month [facility] Utilities Answer Date Recorded In the [...] place to sleep or slept in a long-term (including now)? No 02/15/2023 Sex and Gender Information Value Date Recorded Sex Assigned at Not on file Gender Identity Not on file Sexual Orientation Not on file documented as of this encounter Miscellaneous Notes * Telephone Encounter - Kori Haas, RN - 02/24/2023 2:37 PM EST [facility] sent in notification the Xtandi was approved. Contacted Nain to let him it was approved and provided the phone number to call to set up a delivery date in the event he does nohear from them first. The number given to contact was [phone]. Nain verbalized understanding and in agreement with the plan. documented in this encounter Plan of Treatment Upcoming Encounters Date Type Department Care Team (Late st Contact Info) Description 10/24/2023 1:30 PM EDT Office Visit Hematology/Oncology at [address] [phone] Bisi Cheng APRN [facility] [place] [address] documented as of this encounter Visit Diagnoses Not on filedocumented in this encounter Care Teams Curtain Hemmer Automatic Relationship Specialty Start Date End Date Celio Sanders MD [address] [place] [address] PCP - General Internal Medicine 05/19/16 documented as of this encounter
--- OUTSIDE RECORDS SUMMARY | 2023-10-12 02:42 | XMS_ITS | Encounter Summary ---
[place] [address] Care Team Providers Care Switch Technician Name Role Phone Celio Sanders MD Primary Care Provider [phone] Reason for Visit * Reason Comments Injections IM Lupron * Treatment/Therapy Plan Authorization (Routine) - Authorized Specialty Diagnoses / Procedures Referred By Contac t Referred To Contact Hematology and Oncology Diagnoses Recurrent prostate cancer Procedures TC LEUPROLIDE ACETATE 7.5MG, FOR DEPOST SUSPENSION (LUPRON DEPOT) Ronnie Vazquez MD [address] [place] [address] [place] [address] [facility] [place] [address] [place] [address] Referral ID Status Reason Start Date Expiration Date V isits Requested Visits Authorized [id number] Authorized 02/17/2023 02/17/2024 1 103 Encounter Details Date Type Department Care Team (Late st Contact Info) Description 05/24/2023 11:30 AM EDT Infusion Hematology Oncology at [address] [phone] Recurrent prostate cancer Social History Tobacco Use Types Packs/Day Years Used Date Smoking Tobacco: Never Smokeless Tobacco: Never Alcohol Use Standard Drinks/Week Comments Not Currently 0 (1 standard drink = 0.6 oz pur e alcohol) beer and wine twice a month [facility] Utilities Answer Date Recorded In the past 12 months has [employer], gas, oil, or water company threatened to [...] place to sleep or slept in a jail (including now)? No 02/15/2023 Sex and Gender Information Value Date Recorded Sex Assigned at Not on file Gender Identity Not on file Sexual Orientation Not on file documented as of this encounter Last Filed Vital Signs Vital Sign Reading Time Taken Comments Blood Pressure 152/85 05/24/2023 12:13 PM EDT Pulse 91 05/24/2023 12:13 PM EDT Temperature 36.2 ??C (97.2 ??F) 05/24/2023 12:13 PM E DT Respiratory Rate 18 05/24/2023 12:13 PM EDT Oxygen Saturation 98% 05/24/2023 12:13 PM EDT Inhaled Oxygen Concentration - - Weight 85 kg (187 lb 6.4 oz) 05/24/2023 12:13 PM EDT Height 162.9 cm (5' 4.13) 05/24/2023 12:13 PM E DT Body Mass Index 32.03 05/24/2023 12:13 PM EDT documented in this encounter Progress Notes * Jennifer Ferrera RN - 05/24/2023 11:30 AM EDT Infusion Note Diagnosis:Prostate Cancer Treatment: Lupron Injection Lupron 7.5 mg injected in left buttocks Patient instructed on side effects of Lupron. Patient states understanding of teaching, Patient aware to call clinic with any questions or concerns. Plan: Return to clinic as scheduled. documented in this encounter Plan of Treatment Upcoming Encounters Date Type Department Care Team (Late st Contact Info) Description 10/24/2023 1:30 PM EDT Office Visit Hematology/Oncology at [address] [phone] Bisi Cheng APRN [facility] [place] [address] documented as of this encounter Visit Diagnoses Diagnosis Recurrent prostate cancer documented in this encounter Administered Medications Inactive Administered Medications - up to 3 most recent administrations Medication Order MAR Action Action Date Dose Rate Site leuprolide (Lupron Depot) injection 7.5 mg 7.5 mg, Intramuscular, ONCE, 1 dose, On Tu05/24/23 at 1230, Last injection site was... leuprolide IM injection site: L Gluteal (03/29/2023 10:59 AM), Routine, This agent is restricted to outpatient use. Is this drug being given as an outpatient? Yes Given 05/24/2023 12:22 PM EDT 7.5 mg Left Gluteal documented in this encounter Care Teams Switch Technician Relationship Specialty Start Date End Date Celio Sanders MD [address] [place] [address] PCP - General Internal Medicine 05/19/16 documented as of this encounter
--- OUTSIDE RECORDS SUMMARY | 2023-10-12 02:42 | XMS_ITS | Encounter Summary ---
Author Organization Formerly [facility] Address [facility] [place] [address] Care Team Providers Care Construction Person Name Role Phone Celio Sanders MD Primary Care Provider [phone] Encounter Details Date Type Department Care Team (Late st Contact Info) Description 07/20/2023 2:30 PM EDT TH Visit (TeleHealth) Radiation Oncology at [address] [phone] Ronnie Vazquez MD [address] [place] [address] DR RADIATION ONCOLOGY [place], [place] [id number] Prostate cancer metastatic to intrapelvic lymph node; Recurrent prostate cancer Social History Tobacco Use Types Packs/Day Years Used Date Smoking Tobacco: Never Smokeless Tobacco: Never Alcohol Use Standard Drinks/Week Comments Not Currently 0 (1 standard drink = 0.6 oz pur e alcohol) beer and wine twice a month [facility] Utilities Answer Date Recorded In the past 12 months has [employer], [employer], oil, or water [employer] threatened to shut off services in your [...] as of this encounter Progress Notes * Ronnie Vazquez MD - 07/20/2023 2:30 PM EDT Images from the original note were not included. Radiation Oncology Phone Note Ronnie Vazquez MD, MS [facility] PATIENT NAME: Nain Mckeon DATE OF : 1950 PRIMARY CARE PROVIDER: Celio Sanders MD DATE OF SERVICE: 07/22/2023 PATIENT SUMMARY: Nain Mckeon is a 72 y.o. previously seen for consultation for diagnosis of prostate cancer. I am calling him today to discuss recommendations re: ADT duration. INTERVAL SUBJECTIVE HISTORY: Since last seen, Nain reports no overall changes to his health status. INTERVAL OBJECTIVE HISTORY: No studies to review ASSESSMENT / PLAN: I discussed that I agree with Dr Hassan recommendation for ST-ADT There is not much data in this space, and without trials to guide us a 6 month course of ADT seems reasonable All of Nain's questions were answered to his fullest satisfaction, and we have provided him with our contact information should any further questions or concerns arise. ATTESTATIONS: Telehealth Encounter Attestation: Nain verbally consented to this telehealth visit and understands that this visit will be billed similar to a clinic office visit. Time Attestation: I certify spending at least 20 minutes in providing care to this patient today, 07/22/23 as reflected by the following activities: - discussion of the above with the patient as part of shared medical decision making - documenting the outcome of today's visit as above RONNIE VAZQUEZ MD, MS documented in this encounter Plan of Treatment Upcoming Encounters Date Type Department Care Team (Late st Contact Info) Description 10/24/2023 1:30 PM EDT Office Visit Hematology/Oncology at [address] [phone] [facility] [place] [address] documented as of this encounter Visit Diagnoses Diagnosis Prostate cancer metastatic to intrapelvic lymph node Recurrent prostate cancer documented in this encounter Care Teams Construction Person Relationship Specialty Start Date End Date Celio Sanders MD [address] [place] [address] PCP - General Internal Medicine 05/19/16 documented as of this encounter
--- OUTSIDE RECORDS SUMMARY | 2023-10-12 02:42 | XMS_ITS | Encounter Summary ---
Author Organization [facility] Address [facility] [place] [address] Care Team Providers Care Ward Supervisor Name Role Phone Celio Sanders MD Primary Care Provider [phone] Encounter Details Date Type Department Care Team (Latest Contact Info) Description 03/01/2023 Travel Social History Tobacco Use Types Packs/Day Years Used Date Smoking Tobacco: Never Smokeless Tobacco: Never Alcohol Use Standard Drinks/Week Comments Not Currently 0 (1 standard drink = 0.6 oz pur e alcohol) beer and wine twice a month [facility] Utilities Answer Date Recorded In the [...] place to sleep or slept in a penitentiary (including now)? No 02/15/2023 Sex and Gender Information Value Date Recorded Sex Assigned at Not on file Gender Identity Not on file Sexual Orientation Not on file documented as of this encounter Plan of Treatment Upcoming Encounters Date Type Department Care Team (Late st Contact Info) Description 10/24/2023 1:30 PM EDT Office Visit Hematology/Oncology at [address] [phone] Bisi Cheng APRN [facility] [place] [address] documented as of this encounter Visit Diagnoses Not on filedocumented in this encounter Care Teams Ward Supervisor Relationship Specialty Start Date End Date Celio Sanders MD [address] [place] [address] PCP - General Internal Medicine 05/19/16 documented as of this encounter
--- OUTSIDE RECORDS SUMMARY | 2023-10-12 02:42 | XMS_ITS | Encounter Summary ---
Author Organization Formerly [facility] Address [facility] [place] [address] Care Team Providers Care Leach Cell Operator Name Role Phone Celio Sanders MD Primary Care Provider [phone] Reason for Visit * Reason Onset Date Comments Other 02/23/2023 Enrolled in [employer] Encounter Details Date Type Department Care Team (Late st Contact Info) Description 02/23/2023 Telephone Hematology/Oncology at [address] [phone] Tracy Reno RN Other (Enrolled in [employer]) Social History Tobacco Use Types Packs/Day Years Used Date Smoking Tobacco: Never Smokeless Tobacco: Never Alcohol Use Standard Drinks/Week Comments Not Currently 0 (1 standard drink = 0.6 oz pur e alcohol) beer and wine twice a month [facility] Utilities Answer Date Recorded In the past 12 months has [employer], gas, oil, or water [employer] threatened to shut off services in your [...] place to sleep or slept in a longterm (including now)? No 02/15/2023 Sex and Gender Information Value Date Recorded Sex Assigned at Not on file Gender Identity Not on file Sexual Orientation Not on file documented as of this encounter Miscellaneous Notes * Telephone Encounter - Tracy Reno RN - 02/23/2023 9:39 AM EST Enrolled patient electronically into [employer] with his permission due to high copayand no funding available. New script sent electronically to [facility]. Await to hear that patient qualifies for free Xtandi. [employer] support [employer] phone [phone] documented in this encounter Plan of Treatment Upcoming Encounters Date Type Department Care Team (Late st Contact Info) Description 10/24/2023 1:30 PM EDT Office Visit Hematology/Oncology at [address] [phone] Bisi Cheng APRN [facility] [place] [address] documented as of this encounter Visit Diagnoses Not on filedocumented in this encounter Care Teams Leach Cell Operator Relationship Specialty Start Date End Date Celio Sanders MD [address] [place] [address] PCP - General Internal Medicine 05/19/16 documented as of this encounter
--- OUTSIDE RECORDS SUMMARY | 2023-10-12 02:42 | XMS_ITS | Referral Summary ---
Author Organization [facility] Address [address] [place] [address] Care Team Providers Care Roving Inspector Name Role Phone Celio Sanders MD Primary Care Provider [phone] Social History Tobacco Use Types Packs/Day Years Used Date Smoking Tobacco: Never Assessed Interpersonal Safety Answer Date Record ed Physically Hurt Never 11/25/2019 Verbally Threaten Not on file 11/25/2019 Sex and Gender Information Value Date Recorded Sex Assigned at Not on file Gender Identity Not on file Sexual Orientation Not on file Plan of Treatment Not on file Care Teams Roving Inspector Relationship Specialty Start Date End Date Celio Sanders MD [address] [place] [address] [facility] - General 04/30/16
--- OUTSIDE RECORDS SUMMARY | 2023-10-12 02:42 | XMS_ITS | Encounter Summary ---
Author Organization [facility] Address [address] [place] [address] Care Team Providers Care Control And Recovery Combat Rescue Name Role Phone Celio Sanders MD Primary Care Provider [phone] Encounter Details Date Type Department Care Team (Late st Contact Info) Description 06/17/2016 Results Only [facility] [phone] Elias Curran MD [address] [place] [address] [place] [phone] Social History Tobacco Use Types Packs/Day Years Used Date Smoking Tobacco: Never Assessed Sex and Gender Information Value Date Recorded Sex Assigned at Not on file Gender Identity Not on file Sexual Orientation Not on file documented as of this encounter Plan of Treatment Not on file documented as of this encounter Procedures Procedure Name Priority Date/Time Associated Diagnosis Comments CYTOPATHOLOGY Routine 06/17/2016 0:00 EDT documented in this encounter Results * CYTOPATHOLOGY (06/17/2016 0:00 EDT) Pathology Report: CYTOPATHOLOGY REPORT Reports generated via electronic interface contain original data; however they are lacking the format of the original report. Caution should be taken when reading/interpret ing unformatted reports. Name: ? NAIN LIPSCOMB ? Accession #: ? [id number] : ? 1950 (Age: 65) ??M ?Collect Date: ? 06/17/2016 Location: ? [facility] ? Receive Date: ? 06/18/2016 Provider: ? ELIAS CURRAN MD Copy to: ?KEERTHI AGUIRRE MD ? CYTOLOGIC DIAGNOSIS: URINE, BLADDER WASHING, CYTOLOGIC EVALUATION: - Negative for malignant cells. Document reviewed and electronically signed by: ? KURT BYRNE MD Report Date: ??06/18/2016 14:46 By the signature above, the attending physician certifies that he/she has personally conducted a gross and/or microscopic examination of the described specimens and rendered or confirmed the above diagnosis. Specimen Type: ? Urine, Bladder Washing, Cystoscopy Clinical History: ? Hematuria ? Gross Description: ? 100ccs of clear yellow fluid (Cytolyt added) were received and processed by selective cellular enhancement technique. ? End of Report [facility] 06/17/2016 06/18/2016 8:2 8 EDT Elias Curran MD PATHOLOGY ORDERAB LES Performing Organization Address City/State/[facility] Co de Phone Number [facility] [address] [place] [address] documented in this encounter Visit Diagnoses Not on filedocumented in this encounter Care Teams Control And Recovery Combat Rescue Relationship Specialty Start Date End Date Celio Sanders MD [address] [place] [address] PCP - General 04/30/16 documented as of this encounter
--- OUTSIDE RECORDS SUMMARY | 2023-10-12 02:42 | XMS_ITS | Encounter Summary ---
[place] [address] Care Team Providers Care Operational Intelligence Analyst Name Role Phone Celio Sanders MD Primary Care Provider [phone] Reason for Visit * Reason Comments Injections * Treatment/Therapy Plan Authorization (Routine) - Authorized Specialty Diagnoses / Procedures Referred By Contac t Referred To Contact Hematology and Oncology Diagnoses Recurrent prostate cancer Procedures TC LEUPROLIDE ACETATE 7.5MG, FOR DEPOST SUSPENSION (LUPRON DEPOT) Ronnie Vazquez MD [address] [place] [address] [place] [address] [phone] Referral ID Status Reason Start Date Expiration Date V isits Requested Visits Authorized [id number] Authorized 02/17/2023 02/17/2024 1 103 Encounter Details Date Type Department Care Team (Late st Contact Info) Description 03/29/2023 10:30 AM EST Infusion Hematology Oncology at [address] [phone] Recurrent prostate cancer Social History Tobacco Use Types Packs/Day Years Used Date Smoking Tobacco: Never Smokeless Tobacco: Never Alcohol Use Standard Drinks/Week Comments Not Currently 0 (1 standard drink = 0.6 oz pur e alcohol) beer and wine twice a month [facility] Utilities Answer Date Recorded In the past 12 months has [employer], gas, oil, or water company threatened to [...] Sign Reading Time Taken Comments Blood Pressure 159/76 03/29/2023 10:53 AM EST Pulse 87 03/29/2023 10:53 AM EST Temperature 36.2 ??C (97.1 ??F) 03/29/2023 10:[address] Respiratory Rate 18 03/29/2023 10:53 AM EST Oxygen Saturation 98% 03/29/2023 10:53 AM EST Inhaled Oxygen Concentration - - Weight 84.6 kg (186 lb 9.6 oz) 03/29/2023 10:39 AM EST Height 162.9 cm (5' 4.13) 03/29/2023 10:[address] Body Mass Index 31.9 03/29/2023 10:39 AM EST documented in this encounter Progress Notes * Kori Haas, RN - 03/29/2023 10:30 AM EST Infusion Note Diagnosis:Prostate Cancer Treatment: Lupron Injection Lupron injected in left buttocks Patient instructed on side effects of Lupron. Patient states understanding of teaching, Patient aware to call clinic with any questions or concerns. Plan: Return to clinic as scheduled. documented in this encounter Plan of Treatment Upcoming Encounters Date Type Department Care Team (Late st Contact Info) Description 10/24/2023 1:30 PM EDT Office Visit Hematology/Oncology at [address] [phone] Bisi Cheng APRN [facility] [place] [address] documented as of this encounter Visit Diagnoses Diagnosis Recurrent prostate cancer documented in this encounter Administered Medications Inactive Administered Medications - up to 3 most recent administrations Medication Order MAR Action Action Date Dose Rate Site leuprolide (Lupron Depot) injection 7.5 mg 7.5 mg, Intramuscular, ONCE, 1 dose, On Tue03/29/23 at 1100, Routine, This agent is restricted to outpatient use. Is this drug being given as an outpatient? Yes Given 03/29/2023 10:59 AM EST 7.5 mg Left Gluteal documented in this encounter Care Teams Operational Intelligence Analyst Relationship Specialty Start Date End Date Celio Sanders MD [address] [place] [address] PCP - General Internal Medicine 05/19/16 documented as of this encounter
--- OUTSIDE RECORDS SUMMARY | 2023-10-12 02:42 | XMS_ITS | Encounter Summary ---
Author Organization [facility] Address [address] [place] [address] Care Team Providers Care Fireworks Assembler Name Role Phone Unknown, Provider Primary Care Provider [phone] Encounter Details Date Type Department Care Team (Late st Contact Info) Description 04/27/2016 Results Only [facility] [phone] Elias Curran MD [address] [place] [address] [place] [address] Social History Tobacco Use Types Packs/Day Years Used Date Smoking Tobacco: Never Assessed Sex and Gender Information Value Date Recorded Sex Assigned at Not on file Gender Identity Not on file Sexual Orientation Not on file documented as of this encounter Plan of Treatment Not on file documented as of this encounter Procedures Procedure Name Priority Date/Time Associated Diagnosis Comments SURGICAL PATHOLOGY Routine 04/27/2016 9:09 EST documented in this encounter Results * SURGICAL PATHOLOGY (04/27/2016 9:09 EST) Pathology Report: SURGICAL PATHOLOGY REPORT Reports generated via electronic interface contain original data; however they are lacking the format of the original report. Caution should be taken when reading/interpreting unformatted reports. Name: ? NAIN LIPSCOMB ? Accession #: ? [id number] ? : ? 1950 (Age: 65) ??M ? Collect Date: ? 04/27/2016 ? Location: ? [facility] ? Receive Date: ? 04/28/2016 ? Provider: ELIAS CURRAN MD Copy to: SARIKA KOHLI MD ? Final Pathologic Diagnosis: A. PROSTATE, RIGHT BASE LATERAL, NEEDLE CORE BIOPSY: - ??Adenocarcinoma of the prostate. See comment. ? - Primary (predominant) pattern: Grade 4. ? - Secondary (worst remaining) pattern: Grade 3. ? - Total [place] score: 7. ? - Number of cores involved/total number of cores: 1 out of 1. ? - Percentage of tissue involved by tumor: 95%. - Perineural invasion: Present. B. PROSTATE, RIGHT BASE MEDIAL, NEEDLE CORE BIOPSY: - ??Adenocarcinoma of the prostate. See comment. ? - Primary (predominant) pattern: Grade 4. ? - Secondary (worst remaining) pattern: Grade 3. ? - Total [place] score: 7. ? - Number of cores involved/total number of cores: 1 out of 1. ? - Percentage of tissue involved by tumor: 95%. - Perineural invasion: Present. C. PROSTATE, RIGHT MID LATERAL, NEEDLE CORE BIOPSY: - ??Adenocarcinoma of the prostate. See comment. ? - Primary (predominant) pattern: Grade 4. ? - Secondary (worst remaining) pattern: Grade 4. ? - Total [place] score: 8. ? - Number of cores involved/total number of cores: 1 out of 1. ? - Percentage of tissue involved by tumor: 90%. D. PROSTATE, RIGHT MID MEDIAL, NEEDLE CORE BIOPSY: - ??Adenocarcinoma of the prostate. See comment. ? - Primary (predominant) pattern: Grade 4. ? - Secondary (worst remaining) pattern: Grade 4. ? - Total [place] score: 8. ? - Number of cores involved/total number of cores: 1 out of 1. ? - Percentage of tissue involved by tumor: 40%. E. PROSTATE, RIGHT APEX LATERAL, NEEDLE CORE BIOPSY: - ??Benign prostatic glands and stroma with acute inflammation. F. PROSTATE, RIGHT APEX MEDIAL, NEEDLE CORE BIOPSY: - ??Adenocarcinoma of the prostate. See comment. ? - Primary (predominant) pattern: Grade 4. ? - Secondary (worst remaining) pattern: Grade 3. ? - Total Andre score: 7. ? - Number of cores involved/total number of cores: 1 out of 1. ? - Percentage of tissue involved by tumor: 25%. G. PROSTATE, LEFT BASE LATERAL, NEEDLE CORE BIOPSY: - ??Benign prostatic glands and stroma. H. PROSTATE, LEFT BASE MEDIAL, NEEDLE CORE BIOPSY: - ??Benign prostatic glands and stroma. I. PROSTATE, LEFT MID LATERAL, NEEDLE CORE BIOPSY: - ??Benign prostatic glands and stroma. J. PROSTATE, LEFT MID MEDIAL, NEEDLE CORE BIOPSY: - ??Benign prostatic glands and stroma with acute inflammation. K. PROSTATE, LEFT APEX LATERAL, NEEDLE CORE BIOPSY: - ??Benign prostatic glands and stroma with acute inflammation. L. PROSTATE, LEFT APEX MEDIAL, NEEDLE CORE BIOPSY: - ??Benign prostatic glands and stroma with acute inflammation. Comment: ? Certified Public Accountant slides of this case were reviewed at the intradepartmental consultation conference. ?? Document reviewed and electronically signed by: MARU LOPEZ MD Report ??Date: 04/29/2016 17:06 By the signature above, the attending physician certifies that he/she has personally conducted a gross and/or microscopic examination of the described specimens and rendered or confirmed the above diagnosis. Specimen(s) Received: A. ??Rt base lat B. ??Rt base medial C. ??Rt mid lateral D. ??Rt mid medial E. ??Rt apex lat F. ??Rt apex medial G. ??Lt base lat H. ??Lt base medial I. ?? Lt mid lat J. ??Lt mid medial K. ??Lt apex lat L. ??Lt apex medial Clinical History: Elevated PSA 47.5 ng/ml; hard right prostate Gross Description: A. ?Received in formalin labelled with proper patient identification (initials F, G) and #1 Rt base lat is a single rosales-white tissue core (1.2 cm in length x 0.1 cm in diameter). Submitted intact in A1. B. ?Received in formalin labelled with proper patient identification (initials F, G) and #2 Rt base medial is a single rosales-white tissue core (1.3 cm in length x 0.1 cm in diameter). Submitted intact in B1. C. ?Received in formalin labelled with proper patient identification (initials F, G) and #3 Rt mid lat is a single rosales-white tissue core (1.4 cm in length x 0.1 cm in diameter). Submitted intact in C1. D. ?Received in formalin labelled with proper patient identification (initials F, G) and #4 Rt mid medial is a single rosales-white tissue core (2.4 cm in length x 0.1 cm in diameter). Submitted intact in D1. E. ?Received in formalin labelled with proper patient identification (initials F, G) and #5 Rt apex lat is a single rosales-white tissue core (1.8 cm in length x 0.1 cm in diameter). Submitted intact in E1. F. ?Received in formalin labelled with proper patient identification (initials F, G) and #6 Rt apex medial is a single rosales-white tissue core (1.3 cm in length x 0.1 cm in diameter). Submitted intact in F1. G. ?Received in formalin labelled with proper patient identification (initials F, G) and #7 Lt base lat is a single rosales-white tissue core (2.1 cm in length x 0.1 cm in diameter). Submitted intact in G1. H. ?Received in formalin labelled with proper patient identification (initials F, G) and #8 Lt base medial is a single rosales-white tissue core (1.4 cm in length x 0.1 cm in diameter). Submitted intact in H1. I. ?Received in formalin labelled with proper patient identification (initials F, G) and #9 Lt mid lat is a single rosales-white tissue core (1.4 cm in length x 0.1 cm in diameter). Submitted intact in I1. J. ?Received in formalin labelled with proper patient identification (initials F, G) and #10 Lt mid medial is a single rosales-white tissue core (1.6 cm in length x 0.1 cm in diameter). Submitted intact in J1. K. ?Received in formalin labelled with proper patient identification (initials F, G) and #11 Lt apex lat is a single rosales-white tissue core (1.7 cm in length x 0.1 cm in diameter). Submitted intact in K1. L. ?Received in formalin labelled with proper patient identification (initials F, G) and #12 Lt apex medial is a single rosales-white tissue core (2.0 cm in length x 0.1 cm in diameter). Submitted intact in L1. MIKHAIL Haas (ASCP) 04/28/2016 11:00 AM End of Report [facility] 04/27/2016 9:09 EST 04/28/2016 9:09 EST Elias Curran MD PATHOLOGY ORDERAB LES [facility] [address] [place] [address] documented in this encounter Visit Diagnoses Not on filedocumented in this encounter Care Teams Fireworks Assembler Relationship Specialty Start Date End Date Unknown, Provider, PCP - General 04/28/16 04/29/16 documented as of this encounter
--- OUTSIDE RECORDS SUMMARY | 2023-10-12 02:42 | XMS_ITS | Encounter Summary ---
Author Organization [facility] Address [facility] [place] [address] Care Team Providers Care Business Systems Consultant Name Role Phone Celio Sanders MD Primary Care Provider [phone] Encounter Details Date Type Department Care Team (Late st Contact Info) Description 04/25/2023 Telephone Hematology/Oncology at [address] [phone] Hanny Laureano Social History Tobacco Use Types Packs/Day Years Used Date Smoking Tobacco: Never Smokeless Tobacco: Never Alcohol Use Standard Drinks/Week Comments Not Currently 0 (1 standard drink = 0.6 oz pur e alcohol) beer and wine twice a month [facility] Utilities Answer Date Recorded In [...] encounter Miscellaneous Notes * Telephone Encounter - Hanny Laureano - 04/25/2023 3:42 PM EST Nain is aware of his appt tomorrow day and time. Had labs done last week at [facility] documented in this encounter Plan of Treatment Upcoming Encounters Date Type Department Care Team (Late st Contact Info) Description 10/24/2023 1:30 PM EDT Office Visit Hematology/Oncology at [address] [phone] Bisi Cheng APRN [facility] [place] [address] documented as of this encounter Visit Diagnoses Not on filedocumented in this encounter Care Teams Business Systems Consultant Relationship Specialty Start Date End Date Celio Sanders MD [address] [place] [address] PCP - General Internal Medicine 05/19/16 documented as of this encounter
--- OUTSIDE RECORDS SUMMARY | 2023-10-12 02:42 | XMS_ITS | Encounter Summary ---
Author Organization [facility] Address [facility] [place] [address] Care Team Providers Care Software Project Manager Name Role Phone Celio Sanders MD Primary Care Provider [phone] Reason for Visit * Reason Onset Date Comments Headache 05/11/2023 Encounter Details Date Type Department Care Team (Late st Contact Info) Description 05/11/2023 Telephone Hematology/Oncology at [address] [phone] Yenny Pavon RN Headache Social History Tobacco Use Types Packs/Day Years Used Date Smoking Tobacco: Never Smokeless Tobacco: Never Alcohol Use Standard Drinks/Week Comments Not Currently 0 (1 standard drink = 0.6 oz pur e alcohol) beer and wine twice a month [facility] Utilities Answer Date Recorded In the [...] encounter Miscellaneous Notes * Telephone Encounter - Yenny Pavon RN - 05/11/2023 12:39 PM EST Reason for Call: Headache Brief Health History (Onset, Location, Duration, Characteristics, Aggravating Factors, Relieving Factors/Radiation,Timing, and Severity): Prostate Cancer: on ADT Nain reports pressure in the back of his head, describes this a mild headache, started 3 days ago. He endorses he has felt more stressed lately. He denies dizziness, visual changes, photophobia, nausea/vomiting, weakness. The pressure does not get worse when he lays down. He has not tried anything for his headache, he typically takes ibuprofen. Worsening Symptoms: Emphasized symptoms that require emergent/urgent care according to EPIC protocol utilized or other documented decision support tool. Patient able to teach back worsening symptoms and action to take. Patient/Caregiver demonstrates understanding via teach back: Yes Disposition: Data Unavailable Home care instructions: Observe for any change in the headache or pain status Fluids Stress management Heat or Ice to head/neck as tolerated documented in this encounter Plan of Treatment Upcoming Encounters Date Type Department Care Team (Late st Contact Info) Description 10/24/2023 1:30 PM EDT Office Visit Hematology/Oncology at [address] [phone] Bisi Cheng APRN [facility] [place] [address] documented as of this encounter Visit Diagnoses Not on filedocumented in this encounter Care Teams Software Project Manager Relationship Specialty Start Date End Date Celio Sanders MD [address] [place] [address] PCP - General Internal Medicine 05/19/16 documented as of this encounter
--- OUTSIDE RECORDS SUMMARY | 2023-10-12 02:42 | XMS_ITS | Encounter Summary ---
Author Organization [facility] Address [facility] [place] [address] Care Team Providers Care Powder Truck Driver Name Role Phone Celio Sanders MD Primary Care Provider [phone] Encounter Details Date Type Department Care Team (Latest Contact Info) Description 03/29/2023 Travel Social History Tobacco Use Types Packs/Day Years Used Date Smoking Tobacco: Never Smokeless Tobacco: Never Alcohol Use Standard Drinks/Week Comments Not Currently 0 (1 standard drink = 0.6 oz pur e alcohol) beer and wine twice a month [facility] Utilities Answer Date Recorded In [...] 1:30 PM EDT Office Visit Hematology/Oncology at [address] [phone] Bisi Cheng APRN [facility] [place] [address] documented as of this encounter Visit Diagnoses Not on filedocumented in this encounter Care Teams Powder Truck Driver Relationship Specialty Start Date End Date Celio Sanders MD [address] [place] [address] PCP - General Internal Medicine 05/19/16 documented as of this encounter
--- OUTSIDE RECORDS SUMMARY | 2023-10-12 02:42 | XMS_ITS | Encounter Summary ---
Author Organization [facility] Address [address] [place] [address] Care Team Providers Care Claim Analyst Name Role Phone Celio Sanders MD Primary Care Provider [phone] Encounter Details Date Type Department Care Team (Late st Contact Info) Description 07/31/[address] [facility] Pathology & Laboratory Medicine - [facility] [address] [place], [place] [address] Outr Resulting Lab, Provider Social History Tobacco [...] Date/Time Associated Diagnosis Comments T3 FREE Routine 07/31/2020 8:19 EDT documented in this encounter Results * T3 FREE (07/31/2020 8:19 EDT) T3, Free 3.7 2.8 - 5.3 pg/mL 07/31/2020 16:53 EDT [facility] Blood VENOUS BLOOD / Unknown 07/31/2020 8:19 EDT 07/31/2020 16:19 EDT Provider Outr Resulting Lab CHEMISTRY & BLOOD GAS ORDERABLES [facility] [address] [place] [address] documented in this encounter Visit Diagnoses Not on filedocumented in this encounter Care Teams Claim Analyst Relationship Specialty Start Date End Date Celio Sanders MD [address] [place] [address] PCP - General 04/30/16 documented as of this encounter
--- OUTSIDE RECORDS SUMMARY | 2023-10-12 02:42 | XMS_ITS | Encounter Summary ---
Author Organization [facility] Address [facility] [place] [address] Care Team Providers Care Try Out Person Name Role Phone Celio Sanders MD Primary Care Provider [phone] Encounter Details Date Type Department Care Team (Late st Contact Info) Description 07/19/2023 1:00 PM EDT Office Visit Hematology/Oncology at [address] [phone] Harjinder Ruffin MD [facility] DR HEMATOLOGY [place] [address] Bisi Cheng APRN [facility] [place] [address] Recurrent prostate cancer; Malignant neoplasm of prostate Social History Tobacco Use Types Packs/Day Years Used Date Smoking Tobacco: Never Smokeless Tobacco: Never Alcohol Use Standard Drinks/Week Comments Not Currently 0 (1 standard drink = 0.6 oz pur e alcohol) beer and wine twice a month [facility] Utilities Answer Date Recorded In the past 12 months has [employer], gas, oil, or water company threatened [...] Sign Reading Time Taken Comments Blood Pressure 127/60 07/19/2023 1:05 PM EDT Pulse 90 07/19/2023 1:05 PM EDT Temperature 36.2 ??C (97.2 ??F) 07/19/2023 1:05 PM ED T Respiratory Rate 16 07/19/2023 1:05 PM EDT Oxygen Saturation 97% 07/19/2023 1:05 PM EDT Inhaled Oxygen Concentration - - Weight 79.8 kg (176 lb) 07/19/2023 1:05 PM EDT Height 161.9 cm (5' 3.74) 07/19/2023 1:05 PM ED T Body Mass Index 30.46 07/19/2023 1:05 PM EDT documented in this encounter Progress Notes * Harjinder Ruffin MD - 07/19/2023 1:00 PM EDT Images from the original note were not included. [facility] Medical Oncology [place] [phone] ONCOLOGY F/u visit REFERRING: Dr Vazquez, Dr Contreras ONCOLOGY SUMMARY: Recurrent prostate cancer -Initially treated [...] biopsy revealed prostatic adenocarcinoma, Grade Group 5 ([place] score 5+5=10) Genetic testing Mar 2018: pathogenic variant in BRCA2 (c.1929del, [id number] fs15). VUS in AXIN2 and CTNNA1 -01/06/23 [...] for follow-up appointment on prostate cancer. He received brachytherapy under the care of Dr. Hassan at [facility] on June 15 and June 22. Developed urinary retention andhad Alvarez catheter placed. Follow- up with urologist Dr. Curran. Was treated for UTI with antibiotics. Complains of fatigue, dizzy spells and intermittent headaches. REVIEW OF SYSTEMS: Aside from above, the remainder of the the ROS was negative PAST MEDICAL HISTORY: Past Medical History: Diagnosis Date Anxiety Finger fracture multiple from basket ball injuries Hyperlipidemia Prostate cancer Past Surgical History: Procedure Laterality Date APPENDECTOMY burst CHOLECYSTECTOMY, LAPAROSCOPIC PRO COLONOSCOPY, DIAGNOSTIC N/A 05/12/2021 COLONOSCOPY, DIAGNOSTIC performed by Nicky Bray MD at [facility] ENDOSCOPY PROSTATE BIOPSY US GUIDED BIOPSY PROSTATE WITH URONAV FUSION 01/20/2023 US Guided Biopsy Prostate with Uronav Fusion 01/20/2023 [facility] RAD ULTRASOUND MEDS: Medications 07/19/23 1310 Medication Sig Taking? penicillin v potassium (Veetid) 500 mg tablet Take 500 mg by mouth 4 times daily. Yes lactobacillus rhamnosus, GG, (CULTURELLE) 10 billion cell Capsule Take 1 capsule by mouth daily. Yes DULoxetine DR (Cymbalta) 30 mg Capsule, Delayed Release(E.C.) Take 20 mg by mouth daily. Yes lamoTRIgine (LAMICTAL) 150 mg Tablet Take 1 tablet by mouth daily. Patient taking differently: Take 200 mg by mouth daily. Yes pravastatin (PRAVACHOL) 40 mg Tablet Take 40 mg by mouth daily. Yes LEVOTHYROXINE SODIUM (LEVOTHROID ORAL) Take 75 mcg by mouth daily. Yes b complex vitamins Capsule Take 1 capsule by mouth daily. cholecalciferol, vitamin D3, (VITAMIN D3 ORAL) Take by mouth. vitamin E mixed (NATURAL VITAMIN E ORAL) Take by mouth. multivitamin (THERAGRAN) Tablet Take 1 tablet by mouth nightly. TURMERIC ROOT EXTRACT ORAL Take 1 capsule by mouth 2 times daily. 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 PS: ECOG = 0 General: NAD Deferred Pathology: 01/20/2023 prostatic adenocarcinoma, Grade Group 5 (Andre score 5+5=10) LABS: 07/12/2023 BUN 23, creatinine 1.2, TB 0.4, alkaline phosphatase 76, AST 24, ALT 33, WBC 7.26, hemoglobin 12.4, platelet count 359, ANC 4.29. 04/19/2023 BUN 15, creatinine 1.0, TB 0.4, AST 28, ALT 39, WBC 6.83, hemoglobin 12.3, platelet [id number], 02/15/2023 BUN 31, creatinine 1.1, calcium 9.3, WBC 7.94, hemoglobin 13.1, platelet count 341 PSA testosteron 07/12/23 0.01 <7.0 04/19/23 0.04 01/06/23 1.4 10/01/22 1.7 IMAGING STUDIES: [...] radiation oncologist Dr. Victorino Hassan at the [facility] Given his high Andre score question is [...] observed, with no substantial between-group differences in [id number] measures. CONCLUSIONS In patients with prostate cancer with high-risk biochemical recurrence, enzalutamide plus leuprolide was superior to leuprolide alone with respect to metastasis-free survival; enzalutamide monotherapy was also superior to leuprolide alone. The safety profile of enzalutamide was consistent with that shown in previous clinical studies, with no apparent detrimental effect on quality of life. (Fundedby [employer] and [employer]; [employer] ClinicalTrials.gov number, [id number]. opens in new tab.) On January 20 [...] I think risks of continuation of Xtandi overweight the benefits. I recommend to hold enzalutamide. Continue ADT and he will follow-up with radiation oncologist Dr. Hassan at [facility] I can see him back in 3 months with blood work 07/19/23 Nain had salvage HDR focally under care of Dr. Shaffer At [facility] on June 15 and June 22. The treatment course was complicated by urinary retention requiring Alvarez catheter placed and later urinarytract infection. He completed 6 months of ADT on June 20 PSA 0.01 consistent with excellent PSA response to treatment. He wants to discuss with Dr. Vazquez length of ADT treatment. Will see him backin 3 months with blood work. Plan: Next visit with MD in 3 months [...] 1:30 PM EDT Office Visit Hematology/Oncology at [address] [phone] Bisi Cheng APRN [facility] [place] [address] documented as of this encounter Visit Diagnoses Diagnosis Recurrent prostate cancer Malignant neoplasm of prostate documented in this encounter Care Teams Try Out Person Relationship Specialty Start Date End Date Celio Sanders MD [address] [place] [address] PCP - General Internal Medicine 05/19/16 documented as of this encounter
--- OUTSIDE RECORDS SUMMARY | 2023-10-12 02:42 | XMS_ITS | Encounter Summary ---
Author Organization [facility] Address [facility] [place] [address] Care Team Providers Care Weather Stripper Name Role Phone Celio Sanders MD Primary Care Provider [phone] Reason for Visit * Reason Onset Date Comments Follow-up 03/15/2023 Re oral chemo Encounter Details Date Type Department Care Team (Late st Contact Info) Description 03/15/2023 Telephone Hematology/Oncology at [address] [phone] Caio Venegas, RN Follow-up (Re oral chemo) Social History Tobacco Use Types Packs/Day Years Used Date Smoking Tobacco: Never Smokeless Tobacco: Never Alcohol Use Standard Drinks/Week Comments Not Currently 0 (1 standard drink = 0.6 oz pur e alcohol) beer and wine twice a month [facility] Utilities Answer Date Recorded In the past 12 months has [employer], gas, oil, or water company threatened to [...] place to sleep or slept in a fci (including now)? No 02/15/2023 Sex and Gender Information Value Date Recorded Sex Assigned at Not on file Gender Identity Not on file Sexual Orientation Not on file documented as of this encounter Miscellaneous Notes * Telephone Encounter - Caio Venegas RN - 03/15/2023 9:43 AM EST Called and spoke with Nain Mckeon to review instructions on taking Xtandi. He started medication yesterday. His FUV is scheduled 04/26/23. He is advised to call sooner with any side effects, questions or concerns. ----- Message from Kristine Gunter sent at 03/15/2023 8:39 AM EST ----- Regarding: started Xtandi Nain called to let his care team know he started Xtandi yesterday. If you need to follow up with him, his number is [phone] documented in this encounter Plan of Treatment Upcoming Encounters Date Type Department Care Team (Late st Contact Info) Description 10/24/2023 1:30 PM EDT Office Visit Hematology/Oncology at [address] [phone] Bisi Cheng APRN [facility] [place] [address] documented as of this encounter Visit Diagnoses Not on filedocumented in this encounter Care Teams Weather Stripper Relationship Specialty Start Date End Date Celio Sanders MD [address] [place] [address] PCP - General Internal Medicine 05/19/16 documented as of this encounter
--- OUTSIDE RECORDS SUMMARY | 2023-10-12 02:42 | XMS_ITS | Continuity of Care Document ---
Author Organization [place] - [facility] Address [address] [place] [address] Assessment No assessment recorded. Plan of Treatment Reminders Order Date Submit Date Provider Last Modified By Organization Details Last Modified Time Details Appointments Annual Chronic Care (65+) 30 2023 02:10P M DEWAYNE JOHNSON Not available Not available Not available Lab None recorded. Referral physical therapist referral 2023 024 [facility], [address], [place], [address], 08/31/2023 11:47:52 Procedures None recorded. Surgeries None recorded. Imaging None recorded. Medication Orders cyclobenz aprine 10 mg tablet 2023 024 aurelio [id number], [address] [place], [address], 08/07/2023 12:47:14 Patient TargetsNo targets recorded. Patient InstructionsNo instructions recorded. Reason for Referral Medical Sales Referral for Ingr owing toenail Referring Physician: Dewayne Johnson, Family Medicine, Encounter Date: 03/21/2023 Physical Therapist Referral for Tension-type headache Referring Physician: Dewayne Johnson Family Medicine, Encounter Date: 08/03/2023 Problems Name Status Onset Date Resolution Date [...] He will follow up with his mental [facility] provider before making any other changes in his medication . Problem Code: F31.81; Problem Code Type: ICD-10; MD Joe Y[address], [place] [address] , [facility] 4 13:24:43 Psoriasis Active 2001 Problem Code: L40.9; Problem Code Type: ICD-10; MD Joe Y[address], [place] [address] , [facility] 3 23:01:32 Hyperlipidemia Active 2002 Problem Code: E78.5; Problem Code Type: ICD-10; MD Joe YOON [address], [place] [address] , [facility] 4 13:25:01 Hypothyroidism Active 2011 Problem Code: E03.9; Problem Code Type: ICD-10; MD Joe YOON [address], [facility] [address] , [facility] 4 13:24:57 Hemorrhage of rectum and anus Completed 201506/20/2015 Problem Code: K62.5; Problem Code Type: ICD-10; Not Available [facility] 3 04:02:01 Malignant tumor of prostate Active 201608/25/2017 - Comments only - Evita Vinson MD - He follows with urology and has been stable. 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 Active 2019 Problem Code: G24.01; Problem Code Type: ICD-10; MD Joe YOON [address], [facility] [id number] [place] [address] 3 23:01:29 Prediabetes Active 2020 Problem Code: R73.03; Problem Code Type: ICD-10; MD Joe [address]OON [address], [facility] [id number] [place] [address] 4 13:24:34 Screening for malignant neoplasm of colon Completed 202002/18/2021 Problem Code: Z12.11; Problem Code Type: ICD-10; Not Available [facility] 3 04:02:01 Insomnia Active 2021 Problem Code: G47.00; Problem Code Type: ICD-10; LAINE WELLER, [facility] 3 09:57:48 Adult health examination Active 2021 Problem Code: Z00.00; Problem Code Type: ICD-10; MD Joe YOON [address], [facility] [phone] [place] [address] 4 13:24:20 Pain of toe of right foot Completed 202107/17/2021 Problem Code: M79.674; Problem Code Type: ICD-10; Not Available [facility] 3 04:02:02 Closed fracture of distal end of radius Completed 202104/27/2022 Problem Code: S52.572A; Problem Code Type: ICD-10; Not Available [facility] 3 04:02:02 Pre-surgery evaluation Completed 202207/02/2022 Problem Code: Z01.818; Problem Code Type: ICD-10; Not Available [facility] 3 04:02:02 Bipolar disorder Completed 200212/01/2022 Problem Code: 296.80; Problem Code Type: ICD-9; Not Available [facility] 3 04:02:11 Therapeutic drug monitoring assay Completed 201505/29/2021 Problem Code: Z51.81; Problem Code Type: ICD-10; Not Available [facility] 3 04:02:11 Pain of left wrist Completed 202102/15/2022 Problem Code: M25.532; Problem Code Type: ICD-10; Not Available [facility] 3 04:02:11 Pain of left elbow joint Completed 201905/27/2020 Problem Code: M25.522; Problem Code Type: ICD-10; Not Available [facility] 3 04:02:12 Christo hematuria Completed 201605/13/2016 Problem Code: R31.0; Problem Code Type: ICD-10; Not Available [facility] 3 04:02:13 Prostate nodule Completed 201612/01/2022 Problem Code: N40.2; Problem Code Type: ICD-10; Not Available [facility] 3 04:02:13 Laceration of lip Completed 202012/02/2020 Problem Code: S01.511A; Problem Code Type: ICD-10; Not Available [facility] 3 04:02:14 Bleeding from nose Completed 201802/05/2020 Problem Code: R04.0; Problem Code Type: ICD-10; Not Available [facility] 3 04:02:14 Contusion of head Completed 202012/02/2020 Problem Code: S00.83xA; Problem Code Type: ICD-10; Not Available [facility] 3 04:02:14 Lesion of oral mucosa Completed 201912/02/2020 Problem Code: K13.79; Problem Code Type: ICD-10; Not Available [facility] 3 04:02:14 Subungual hematoma of foot Completed 202205/11/[address], [facility] [address] , [facility] 4 13:24:53 Ingrowing toenail Completed 202305/11/[address], [place], [address] , [facility] 4 13:25:10 Epidermoid cyst of skin Completed 202305/15/[address], [place], [address] , [facility] 4 19:01:09 Allergic rhinitis Active [address], [facility] [address] , [facility] 13:24:22 Tension-type headache Active [address], [facility] [address] , [facility] 4 19:01:02 Disorder of vision Completed 202305/15/[address], [place], [address] , [facility] 4 19:01:05 Dental abscess Active [address], [facility] [address] , [facility] 13:17:37 Blood in urine Active [address], [place], [address] , [facility] 14:03:17 Unsteady when walking Active 2023 SORAYA HOLDER PA-C [address], [place], [address] , [facility] 15:05:09 Problem Notes None recorded. Procedures Surgical History Date Name Laterality Status Provider Name and Address Organization Details Recorded Time 01/21/20 transurethral biopsy of prostate completed PABLO HITCHCOCK RN [facility], [place] - [facility] 02/01/2023 08:36:09 Imaging Results None recorded. Procedure Notes None recorded. Medical Equipment None [...] of liquid. Take as needed. 12/03 completed [facility] Not Available Not Available Not Available methocarb sugey 500 mg tablet Take 1 tab by mouth three times daily 04/23 completed Not Available Not Available Not Available lamotrigi ne 150 mg tablet TAKE ONE TABLET BY MOUTH EVERY DAY active Not Available Not Available No t Available bicalutam desi 50 mg tablet Take 1 tablet by mouth daily 06/14 completed [facility] Not Available Not Available Not Available nystatin [...] 1 tab by mouth daily. 08/03 completed [facility] Not Available Not Available Not Available metronida [...] mouth at HS as needed 11/15 completed [facility] Not Available Not Available Not Available olanzapin [...] Not Available Not Available No t Available [facility] Levothyro xine Sodium 50 mcg tablet 1 [...] 10 mg tablet q 6 hrs prn 04/23 completed Not Available Not Available Not [...] nightly as needed for anxiety 12/03 completed [facility] Not Available Not Available Not Available benztropi ne 2 mg tablet Take 1 tab by mouth daily 12/03 completed [facility] Not Available Not Available Not Available betametha [...] by mouth daily at bedtime 2017 active [facility] Not Available Not Available Not Avai lable [...] e 50 mcg/actua tion nasal spray,[employer] 1 spray twice a day by intranas [...] completed Not Available Not Available Not Available Nani CF (PE-DM-gu aif) 5 mg-10 mg-100 mg/5 [...] capsule by mouth once a day active [facility] Not Available Not Available [...] at bedtime as needed 02/01 completed Jillian Ramos [place] Not Available Not Available Not Available [...] Updated DateTime 4 160.66 cm 31.5 kg/m2 93690.0 3 g 97.2 [degF] 97 % 97 % 78 /min 120 mm[Hg] 80 mm[Hg] JOHNNIE WHITEHEAD MA [facility] 4 11:08:14 Social History Question Answer Notes LastModified by Organizat ion Details LastModified Time Tobacco Smoking Status Former Smoker couple years in college JOHNNIE WHITEHEAD MA [facility], [facility] 02/17/2023 13:45:19 Do You Have An Advance [...] Or The Highest Degree You Have Received? [id number] Information not available 02/17/2023 How Many Times Per Week Do You Exercise? 5-7 Times Per Week Information not available 02/17/2023 When Did You Quit Smoking? 16+yearssin renate fox Information not available 02/17/2023 What Do You Do For Fun? Swim, Pickleball, Walk Dog, Read Information not available 02/17/2023 Would You Say That, In General, Your Health Is Good Information not available 02/17/2023 Who Do You Live With? Spouse And Dog Information not available 02/17/2023 Do You Have A Medical Power Of Forensic Chemist? No Paperwork Given Information not available 02/17/2023 [...] preservative free, adsorbed 07/26/2017 completed Not Available [facility] 01/14/2023 04:07:01 Tdap 01/25/2007 completed Not Available [facility] 04:07:03 zoster live 09/21/2011 completed Not Available [facility] 01/14/2023 04:07:03 Pneumococcal conjugate PCV 13 06/19/2015 completed Not Available [facility] 01/14/2023 04:07:04 Influenza, high-dose, trivalent, PF 12/08/2017 completed Not Available [facility] 01/14/2023 04:07:04 Influenza, split virus, trivalent, preservative 02/11/2016 completed Not Available [facility] 01/14/2023 04:07:05 Influenza, split virus, quadrivalent, preservative 11/26/2016 completed Not Available [facility] 01/14/2023 04:07:05 Influenza, high-dose, quadrivalent, PF 12/02/2020 completed Not Available [facility] 01/14/2023 04:07:06 Influenza, high-dose, quadrivalent, PF 12/04/2019 completed Not Available [facility] 01/14/2023 04:07:06 Influenza, high-dose, quadrivalent, PF 12/14/2021 completed Not Available [facility] 01/14/2023 04:07:06 COVID-19, mRNA, LNP-S, PF, 100 mcg/0.5mL dose or 50 mcg/0.25mL dose 05/30/2020 completed Not Available [facility] 01/14/2023 04:07:07 COVID-19, mRNA, LNP-S, PF, 100 mcg/0.5mL dose or 50 mcg/0.25mL dose 01/07/2021 completed Not Available [facility] 01/14/2023 04:07:07 SARS-COV-2 (COVID-19) vaccine, UNSPECIFIED 05/02/2020 completed Not Available [facility] 01/14/2023 04:07:07 SARS-COV-2 (COVID-19) vaccine, UNSPECIFIED 06/23/2021 completed Not Available [facility] 01/14/2023 04:07:08 SARS-COV-2 (COVID-19) vaccine, UNSPECIFIED 12/14/2021 completed Not Available [facility] 01/14/2023 04:07:08 Pneumococcal conjugate PCV20, polysaccharide [id number] conjugate, adjuvant, PF 07/27/2022 completed Not Available [facility] 01/14/2023 04:07:08 COVID-19, mRNA, LNP-S, bivalent, PF, 30 mcg/0.3 mL dose 07/27/2022 completed Not Available [facility] 01/15/20 04:07:08 pneumococcal polysaccharide PPV23 05/24/2014 completed Not Available [facility] 2022 04:07:09 influenza, unspecified formulation 01/22/2019 completed Not Available [facility] 01/14/2023 04:07:11 SARS-COV-2 (COVID-19) vaccine, UNSPECIFIED 01/03/2023 completed LAINE WELLER [facility] 02/17/2023 13:55:11 influenza, unspecified formulation 11/18/2022 completed LAINE WELLER [facility] 02/17/2023 13:55:44 Influenza, high-dose, quadrivalent, PF 11/18/2022 completed Not Available [facility] 03/18/2023 05:33:19 Past Encounters Encounter ID Performer Location Encounter Start Date Encounter Closed Date Diagnosis/Indication Diagnosis SNOMED-CT Code [id number] DEWAYNE JOHNSON MD [address] [address] 08/03/2023 10:49:43 08/03/2023 11:38:20 Tension-type headache [id number] Health Concerns Section Related Observation LastModified by Organization Detai ls LastModified Time None Recorded Concern Status LastModified by Organization Details LastModified Time None Recorded Payers Encounter Date Sequence Insurance Name Policy Number Policy Walker Covered Member ID Walker Member ID Guarantor Name 08/03/2023 2 [employer] (MEDICARE SUPPLEMENT) Nain Mckeon [id number] Nain Mckeon 08/03/2023 1 MEDIC[place] [employer] Nain Mckeon [id number] Nain Mckeon Notes Date Note Type Note Provider Name and Address Organization Details Recorded Time 08/03/2023 text/html HPI Notes: Nain here with [...] are not related to his present symptoms. MD Joe [address], [place], [address], [facility]. 08/07/2023 12:50:52
--- OUTSIDE RECORDS SUMMARY | 2023-10-12 02:42 | XMS_ITS | Encounter Summary ---
Author Organization [facility] Address [address] [place] [address] Care Team Providers Care Nib Assembler Name Role Phone Celio Sanders MD Primary Care Provider [phone] Encounter Details Date Type Department Care Team (Latest Contact Info) Description 06/17/2016 15:52 EDT - 06/17/2016 23:59 EDT Hospital Encounter [address] [id number] Unknown, Provider, Discharge Disposition: Home or Self Care Social History Tobacco Use Types Packs/Day Years Used Date Smoking Tobacco: Never Assessed Sex and Gender Information Value Date Recorded Sex Assigned at Not on file Gender Identity Not on file Sexual Orientation Not on file documented as of this encounter Discharge Disposition Disposition Code Departure Means Destination Home or Self Intermediate documented in this encounter Plan of Treatment Not on file documented as of this encounter Visit Diagnoses Not on filedocumented in this encounter Care Teams Nib Assembler Relationship Specialty Start Date End Date Celio Sanders MD [address] [place] [address] PCP - General 04/30/16 documented as of this encounter
--- OUTSIDE RECORDS SUMMARY | 2023-10-12 02:42 | XMS_ITS | Encounter Summary ---
Author Organization [facility] Address [address] [place] [id number] Care Team Providers Care Dispatcher Clerk Name Role Phone Unavailable Primary Care Provider Unavailabl e Encounter Details Date Type Department Care Team (Latest Contact Info) Description 04/27/2016 10:06 EST - 04/27/2016 23:59 EST Hospital Encounter [address] [address] Unknown, Provider, Discharge Disposition: Home or Self Care Social History Tobacco Use Types Packs/Day Years Used Date Smoking Tobacco: Never Assessed Sex and Gender Information Value Date Recorded Sex Assigned at Not on file Gender Identity Not on file Sexual Orientation Not on file documented as of this encounter Discharge Disposition Disposition Code Departure Means Destination Home or Self Long-Term documented in this encounter Plan of Treatment Not on file documented as of this encounter Visit Diagnoses Not on filedocumented in this encounter
--- OUTSIDE RECORDS SUMMARY | 2023-10-12 02:42 | XMS_ITS | Encounter Summary ---
Author Organization [facility] Address [facility] [place] [address] Care Team Providers Care Repacker Name Role Phone Celio Sanders MD Primary Care Provider [phone] Encounter Details Date Type Department Care Team (Latest Contact Info) Description 07/19/2023 Travel Social History Tobacco Use Types Packs/Day Years Used Date Smoking Tobacco: Never Smokeless Tobacco: Never Alcohol Use Standard Drinks/Week Comments Not Currently 0 (1 standard drink = 0.6 oz pur e alcohol) beer and wine twice a month [facility] Utilities Answer Date Recorded In [...] place to sleep or slept in a skilled nursing (including now)? No 02/15/2023 Sex and Gender Information Value Date Recorded Sex Assigned at Not on file Gender Identity Not on file Sexual Orientation Not on file documented as of this encounter Plan of Treatment Upcoming Encounters Date Type Department Care Team (Late st Contact Info) Description 10/24/2023 1:30 PM EDT Office Visit Hematology/Oncology at [address] [id number] Bisi Cheng APRN [facility] [place] [address] documented as of this encounter Visit Diagnoses Not on filedocumented in this encounter Care Teams Repacker Relationship Specialty Start Date End Date Celio Sanders MD [address] [place] [address] PCP - General Internal Medicine 05/19/16 documented as of this encounter
--- OUTSIDE RECORDS SUMMARY | 2023-10-12 02:42 | XMS_ITS | Clinical Summary ---
Author Organization [facility] Address [facility] [place] [address] Care Team Providers Care Bar Finish Operator Name Role Phone Celio Sanders MD Primary Care Provider Allergies No known active allergies Medications Medication Sig Dispensed Refills Start Date End Date Status LEVOTHYROXINE SODIUM (LEVOTHROID ORAL) Take 75 mcg by mouth daily. Active pravastatin (PRAVACHOL) 40 mg Tablet Take 40 mg by mouth daily. Active TURMERIC ROOT EXTRACT ORAL Take 1 capsule by mouth 2 times daily. Active lamoTRIgine (LAMICTAL) 150 mg Tablet Take 1 tablet by mouth daily. 30 tablet 1 08/15/2017 Active Additional Information Patient taking differently: 200 mgOral DAILY, Reported on 07/27/2019 multivitamin (THERAGRAN) Tablet Take 1 tablet by mouth nightly. Active DULoxetine DR (Cymbalta) 30 mg Capsule, Delayed Release(E.C.) Take 20 mg by mouth daily. 10/08/2020 Active lactobacillus rhamnosus, GG, (CULTURELLE) 10 billion cell Capsule Take 1 capsule by mouth daily. Active vitamin E mixed (NATURAL VITAMIN E ORAL) Take by mouth. Active cholecalciferol, vitamin D3, (VITAMIN D3 ORAL) Take by mouth. Act michael b complex vitamins Capsule Take 1 capsule by mouth daily. Active penicillin v potassium (Veetid) 500 mg tablet Take 500 mg by mouth 4 times daily. 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/07/2016 Recurrent prostate cancer 07/07/2016 Foreign travel 01/26/2011 Encounters Date Type Department Care Team Description 07/20/2023 2:30 PM EDT TH Visit (TeleHealth) Radiation Oncology at [address] [phone] Ronnie Vazquez MD Prostate cancer metastatic to intrapelvic lymph node; Recurrent prostate cancer 07/19/2023 1:00 PM EDT Office Visit Hematology/Oncology at [address] [phone] Harjinder Snyder MD Burns, Kimberly A, APRN Recurrent prostate cancer; Malignant neoplasm of prostate 07/19/2023 Travel from Last 3 Months Immunizations Name Administration Dates Next Due Enhanced Inactivated Polio 01/25/2011 Hepatitis A, Unspecified Formulation 01/25/2011 Influenza PF, Split 01/25/2011 Yellow Fever Vaccine 01/25/2011 Family History Medical History Relation Comments Prostate Cancer Father Pancreatic Cancer Maternal Aunt Breast Cancer Maternal Cousin daughter of aunt with pancreatic cancer Cancer Maternal Grandfather tongue Colorectal Cancer Mother Breast Cancer Paternal Aunt 1 Uterine Cancer Paternal Aunt 2 may have been ov riaz Relation Status Comments Father Maternal Aunt Maternal Cousin Maternal Grandfather Mother Paternal Aunt 1 Paternal Aunt 2 Social History Tobacco Use Types Packs/Day Years Used Date Smoking Tobacco: Never Smokeless Tobacco: Never Alcohol Use Standard Drinks/Week Comments Not Currently 0 (1 standard drink = 0.6 oz pur e alcohol) beer and wine twice a month [facility] Utilities Answer Date Recorded In the past 12 months has e [employer], gas, oil, or water check24 threatened to shut off services in your [...] on file Sexual Orientation Not on file Last Filed Vital Signs [...] Mass Index 30.46 07/19/2023 1:05 PM EDT Plan of Treatment Upcoming Encounters Date Type Department Care Team (Late st Contact Info) Description 10/24/2023 1:30 PM EDT Office Visit Hematology/Oncology at [address] [phone] Bisi Cheng, [facility] [place] [address] Health Maintenance Due Date Last Done Comments CT Colonography 1950 FIT DNA 1950 FIT 1950 Sigmoidoscopy 1950 Hepatitis C Screening 1966 Tdap adult 09/19/1967 Tetanus vaccine 09/19/1967 Zoster vaccine (1 of 2) 1998 Advance Directive 09/19/2003 Pneumoccocal Vaccine: 65+ (1 of 1 - PCV) 2013 Covid-19 Vaccine (2 - 2022- season) 2022 Influenza (Flu) vaccine (1 o f 1 - Influenza standard series) 11/06/2023 01/25/2011 Colonoscopy 05/13/2031 05/12/2021, 05/12/2021 Colorectal Cancer Screening 05/13/2031 Sigmoidoscopy (10 year) with FIT yearly 05/13/2031 0 05/12/2021, 05/12/2021 Procedures Procedure Name Priority Date/Time Associated Diagnosis Comments LAB SCAN 07/14/2023 12:00 AM EDT LAB SCAN 07/12/2023 12:00 AM EDT LAB SCAN 07/12/2023 12:00 AM EDT LAB SCAN 07/12/2023 12:00 AM EDT COLONOSCOPY Routine 05/12/2021 2:18 PM EST from Last 3 Months or Most Recently Relevant to Health Maintenance Results * SCAN DOC: LAB (07/14/2023 12:00 AM EDT) Only the most recent of4 resultswithin the time period is included. Narrative 07/14/2023 12:00 AM EDT Ordered by an unspecified provider. Scanning Provider MEDIA MGR SCAN EXT O RDR/RSLT * COLONOSCOPY (05/12/2021 2:18 PM EST) COLONOSCOPY [facility] Endoscopy Procedure Date: 05/12/2021 2:18 PM ? Patient Name: Nain Mckeon ? Date of : 1950 ? Age: 70 ? Order #: [id number] ? Instrument Name: [id number] ? Procedure: ? Colonoscopy Indications: ? Screening patient at increased risk: ? Family history of 1st-degree relative ? with colorectal cancer at age 60 ? years (or older) Providers: ? Nicky Bray MD, Sav Platt ? Ivon Angel, Gravity Meter Observer Referring MD: ?Celio Sanders MD Medicines: ? Monitored Anesthesia Care Complications: ? No immediate complications. Procedure: ? Pre-Anesthesia Assessment: ? - Prior to the procedure, a History ? and Physical was performed, and ? patient medications and allergies ? were reviewed. The patient's ? tolerance of previous anesthesia was ? also reviewed. The risks and benefits ? of the procedure and the sedation ? options and risks were discussed with ? the patient. All questions were ? answered, and informed consent was ? obtained. Prior Anticoagulants: The ? patient has taken no previous ? anticoagulant or antiplatelet agents. ? ASA Grade Assessment: II - A patient ? with mild systemic disease. After ? reviewing the risks and benefits, the ? patient was deemed in satisfactory ? condition to undergo the procedure. ? The procedure, indications, benefits, ? risks and alternatives were explained ? to the patient. Specifically ? discussed were potential ? complications including, but not ? limited to, bleeding, perforation, ? infection, missing a cancer, and ? adverse medication reactions. The ? patient was placed in the left ? lateral decubitus position, and a ? digital rectal exam was performed. ? The Colonoscope was inserted in the ? anus and under direct visualization, ? advanced to the cecum, identified by ? appendiceal orifice and ileocecal ? valve. Careful inspection was made as ? the colonoscope was withdrawn. The ? quality of the bowel preparation was ? evaluated using the BBPS ([place] ? Bowel Preparation Scale) with scores ? of: Right Colon = 3, Transverse Colon ? = 3 and Left Colon = 3 (entire mucosa ? seen well with no residual staining, ? small fragments of stool or opaque ? liquid). The total BBPS score equals ? 9. Withdrawal time was 14 minutes. ? Findings: ? The perianal and digital [...] ?- The examined portion of the ileum ? was normal. ? - One 3 mm polyp in the descending ? colon, removed with a cold snare. ? Resected and retrieved. ? - The sigmoid colon, transverse ? colon, ascending colon and cecum are ? normal. ? - The distal rectum and anal verge ? are normal on retroflexion view. Recommendation: ?- Await pathology results. ? - Repeat colonoscopy date to be ? determined after pending pathology ? results are reviewed for surveillance. ? - Return to referring physician. ? Procedure Code(s): ?? --- Professional --- ? 42342, Colonoscopy, flexible; with ? removal of tumor(s), polyp(s), or ? other lesion(s) by snare technique CPT copyright 2019 [employer]. All rights reserved. The codes documented in this report are preliminary and upon braille coder review may be revised to meet current compliance requirements. Attending Participation: ? I personally performed the entire procedure. ? Nicky Bray MD _ Nicky Bray MD 05/12/2021 3:10:50 PM This report has been signed electronically. Number of Addenda: 0 Note Initiated On: 05/12/2021 2:18 PM PROVATION 05/12/2021 2:18 PM EST Celio Sanders MD GENERAL SURGICAL ORD ERABLES PROVATION from Last 3 Months or Most Recently Relevant to Health Maintenance Advance Directives * Full Code (Latest Code Status on File) Date Activated Date Inactivated Comments 08/06/2017 8:40 PM 08/15/2017 2:45 PM Question Answer Comments Does patient have capacity to make decision: Yes * Full Code Date Activated Date Inactivated Comments 08/03/2016 1:14 PM 08/03/2016 6:28 PM Question Answer Comments Does patient have capacity to make decision: Yes Content of discussion: Pt desires full code. Care Teams Bar Finish Operator Relationship Specialty Start Date End Date Celio Sanders MD [address] [place] [address] PCP - General Internal Medicine 05/19/16
--- OUTSIDE RECORDS SUMMARY | 2023-10-12 02:42 | XMS_ITS | Encounter Summary ---
Author Organization [facility] Address [address] [place] [address] Care Team Providers Care Semi Truck Driver Name Role Phone Celio Sanders MD Primary Care Provider [phone] Encounter Details Date Type Department Care Team (Late st Contact Info) Description 11/21/2019 Lab Requisition [facility] Pathology & Laboratory Medicine - [facility] [address] [place] [address] David Fairchild MD [address] [place], [place] [id number] Contact with and (suspected) exposure to other viral communicable diseases Social History Tobacco Use Types Packs/Day Years [...] Procedure Name Priority Date/Time Associated Diagnosis Comments ZZCOVID-19 TEST [facility] LAB PCR Today 11/21/2019 14:30 EDT Contact with and (suspected) exposure to other viral communicable diseases COVID-19 TESTING Today 11/21/2019 14:3 0 EDT Contact with and (suspected) exposure to other viral communicable diseases documented in this encounter Results * COVID-19 TEST [facility] LAB PCR (11/21/2019 14:30 EDT) Swab ENTIRE NASOPHARYNX / Unknown Swab / Unknown 11/21/2019 14:30 EDT 11/21/2019 20:52 EDT David Fairchild MD MICROBIOLOGY - GENER AL ORDERABLES Performing Organization Address [facility] Co de Phone Number [facility] [address] [place] [address] * COVID-19 TESTING (11/21/2019 14:30 EDT) COVID-19 rt-PCR Result Negative Negative 11/22/2019 1:14 EDT [facility] Comment: This test has not been FDA cleared or approved. This test has been authorized by FDA under an EUA for use by authorized laboratories. This test has been authorized only for detection of nucleic acid from 2019-nCoV, not for any other viruses or pathogens. This test is only authorized for the duration of the declaration that circumstances exist justifying the authorization of emergency use of in vitro diagnostic tests for detection and/or diagnosis of 2019-nCoV under section 564(b)(1) of Act, 21 U.S.C ?? 360bbb-3(b) (1), unless the authorization is terminated or revoked sooner. Negative results do not preclude 2019-nCoV infection and should not be used as the sole basis for treatment or other patient management decisions. Negative results must be combined with clinical observations, patient history, and epidemiological information. Performed on the Ezeecube Fusion instrument Performing Lab [place] [facility] Lab 11/22/2019 1:14 EDT [facility] Swab ENTIRE NASOPHARYNX / Unknown Swab / Unknown 11/21/2019 14:30 EDT 11/21/2019 20:52 EDT David Fairchild MD MICROBIOLOGY - GENER AL ORDERABLES Performing Organization Address [facility] Co de Phone Number [facility] [address] [place] [address] documented in this encounter Visit Diagnoses Diagnosis Contact with and (suspected) exposure to other viral communicable diseases documented in this encounter Care Teams Semi Truck Driver Relationship Specialty Start Date End Date Celio Sanders MD [address] [place] [address] PCP - General 04/30/16 documented as of this encounter
--- OUTSIDE RECORDS SUMMARY | 2023-10-12 02:42 | XMS_ITS | Encounter Summary ---
Author Organization [facility] Address [facility] [place] [address] Care Team Providers Care Automatic Die Cutting Machine Operator Name Role Phone Celio Sanders MD Primary Care Provider [phone] Encounter Details Date Type Department Care Team (Latest Contact Info) Description 06/21/2023 Travel Social History Tobacco Use Types Packs/Day Years Used Date Smoking Tobacco: Never Smokeless Tobacco: Never Alcohol Use Standard Drinks/Week Comments Not Currently 0 (1 standard drink = 0.6 oz pur e alcohol) beer and wine twice a month [facility] Utilities Answer Date Recorded In the [...] place to sleep or slept in a [place] health care facility (including now)? No 02/15/2023 Sex and Gender Information Value Date Recorded Sex Assigned at Not on file Gender Identity Not on file Sexual Orientation Not on file documented as of this encounter Plan of Treatment Upcoming Encounters Date Type Department Care Team (Late st Contact Info) Description 10/24/2023 1:30 PM EDT Office Visit Hematology/Oncology at [address] [phone] [facility] [place] [address] documented as of this encounter Visit Diagnoses Not on filedocumented in this encounter Care Teams Automatic Die Cutting Machine Operator Relationship Specialty Start Date End Date Celio Sanders MD [address] [place] [address] PCP - General Internal Medicine 05/19/16 documented as of this encounter
--- OUTSIDE RECORDS SUMMARY | 2023-10-12 02:42 | XMS_ITS | Encounter Summary ---
[place] [address] Care Team Providers Care Agile Tester Name Role Phone Celio Sanders MD Primary Care Provider [phone] Reason for Visit * Reason Comments Chemotherapy Injections * Treatment/Therapy Plan Authorization (Routine) - Authorized Specialty Diagnoses / Procedures Referred By Contac t Referred To Contact Hematology and Oncology Diagnoses Recurrent prostate cancer Procedures TC LEUPROLIDE ACETATE 7.5MG, FOR DEPOST SUSPENSION (LUPRON DEPOT) Ronnie Vazquez MD [address] [place] [address] [place] [address] [facility] [address] [place] [address] Referral ID Status Reason Start Date Expiration Date V isits Requested Visits Authorized [id number] Authorized 02/17/2023 02/17/2024 1 103 Encounter Details Date Type Department Care Team (Late st Contact Info) Description 06/21/2023 11:00 AM EDT Infusion Hematology Oncology at [address] [phone] Recurrent prostate cancer Social History Tobacco Use Types Packs/Day Years Used Date Smoking Tobacco: Never Smokeless Tobacco: Never Alcohol Use Standard Drinks/Week Comments Not Currently 0 (1 standard drink = 0.6 oz pur e alcohol) beer and wine twice a month [facility] Utilities Answer Date Recorded In the past 12 months has [employer], gas, oil, or water company threatened to [...] place to sleep or slept in a assisted (including now)? No 02/15/2023 Sex and Gender Information Value Date Recorded Sex Assigned at Not on file Gender Identity Not on file Sexual Orientation Not on file documented as of this encounter Last Filed Vital Signs Vital Sign Reading Time Taken Comments Blood Pressure 115/67 06/21/2023 11:35 AM EDT Pulse 90 06/21/2023 11:35 AM EDT Temperature 36.4 ??C (97.6 ??F) 06/21/2023 11:35 AM E DT Respiratory Rate 18 06/21/2023 11:35 AM EDT Oxygen Saturation 95% 06/21/2023 11:35 AM EDT Inhaled Oxygen Concentration - - Weight 83.3 kg (183 lb 9.6 oz) 06/21/2023 11:35 AM EDT Height 160 cm (5' 3) 06/21/2023 11:35 AM EDT Body Mass Index 32.52 06/21/2023 11:35 AM EDT documented in this encounter Progress Notes * Kori Haas, RN - 06/21/2023 11:00 AM EDT Infusion Note Diagnosis:Prostate Cancer Treatment: Lupron Injection Lupron injected in right buttocks Patient instructed on side effects of Lupron. Patient states understanding of teaching, Patient aware to call clinic with any questions or concerns. Plan: Return to clinic as scheduled. documented in this encounter Plan of Treatment Upcoming Encounters Date Type Department Care Team (Late st Contact Info) Description 10/24/2023 1:30 PM EDT Office Visit Hematology/Oncology at [address] [phone] Bisi Cheng APRN [facility] [place] [address] documented as of this encounter Visit Diagnoses Diagnosis Recurrent prostate cancer documented in this encounter Administered Medications Inactive Administered Medications - up to 3 most recent administrations Medication Order MAR Action Action Date Dose Rate Site leuprolide (Lupron Depot) injection 7.5 mg 7.5 mg, Intramuscular, ONCE, 1 dose, On Tue06/21/23 at 1200, Last injection site was... leuprolide IM injection site: R Gluteal (04/26/2023 11:07 AM), Routine, This agent is restricted to outpatient use. Is this drug being given as an outpatient? Yes Given 06/21/2023 11:44 AM EDT 7.5 mg Left Gluteal documented in this encounter Care Teams Agile Tester Relationship Specialty Start Date End Date Celio Sanders MD [address] [place] [address] PCP - General Internal Medicine 05/19/16 documented as of this encounter
--- OUTSIDE RECORDS SUMMARY | 2023-10-12 02:42 | XMS_ITS | Encounter Summary ---
Author Organization [facility] Address [facility] [place] [address] Care Team Providers Care Osha Inspector Name Role Phone Celio Sanders MD Primary Care Provider [phone] Reason for Visit * Reason Onset Date Comments New Medication Request 02/22/2023 xtandi Encounter Details Date Type Department Care Team (Late st Contact Info) Description 02/22/2023 Telephone Hematology/Oncology at [address] [phone] Tracy Reno RN New Medication Request (xtandi) Social History Tobacco Use Types Packs/Day Years Used Date Smoking Tobacco: Never Smokeless Tobacco: Never Alcohol Use Standard Drinks/Week Comments Not Currently 0 (1 standard drink = 0.6 oz pur e alcohol) beer and wine twice a month [facility] Utilities Answer Date Recorded In the [...] medical appointments or from getting medications? No 12/1 04/2022 In the past 12 months, has l [...] Telephone Encounter - Tracy Reno RN - 02/22/2023 10:59 AM EST Oral Chemotherapy Check Note 02/22/2023 Nain Mckeon, 1950 Prescriptions for oral chemotherapy were reviewed as follows: Oral Chemotherapy Order enzalutimide: Order details: Dose: 160 mg ( 40 mg tab) Route: oral Quantity to be dispensed #: 120 tabs Number of refills: 11 Instructions: take 4 tablets by mouth daily. Take within 30 minutes of eating. Cycle number and length: ongoing Start date: when receives in mail and calls clinic Plan of care compared to information in the medical record, including note from provider on 02/22/23 (date). The prescription was found to be complete and accurate. It was printed, reviewed and signed by provider and manually faxed to [facility] pharmacy. If high copay funding to be checked, if none available will need to apply to [facility]. documented in this encounter Plan of Treatment Upcoming Encounters Date Type Department Care Team (Late st Contact Info) Description 10/24/2023 1:30 PM EDT Office Visit Hematology/Oncology at [address] [phone] Bisi Cheng APRN [facility] [place] [address] documented as of this encounter Visit Diagnoses Not on filedocumented in this encounter Care Teams Osha Inspector Relationship Specialty Start Date End Date Celio Sanders MD [address] [place] [address] PCP - General Internal Medicine 05/19/16 documented as of this encounter
--- OUTSIDE RECORDS SUMMARY | 2023-10-12 02:42 | XMS_ITS | Encounter Summary ---
Author Organization [facility] Address [facility] [place] [address] Care Team Providers Care Charging Machine Operator Name Role Phone Celio Sanders MD Primary Care Provider [phone] Encounter Details Date Type Department Care Team (Latest Contact Info) Description 04/26/2023 Travel Social History Tobacco Use Types Packs/Day Years Used Date Smoking Tobacco: Never Smokeless Tobacco: Never Alcohol Use Standard Drinks/Week Comments Not Currently 0 (1 standard drink = 0.6 oz pur e alcohol) beer and wine twice a month [facility] Utilities Answer Date Recorded In the [...] place to sleep or slept in a retirement (including now)? No 02/15/2023 Sex and Gender Information Value Date Recorded Sex Assigned at Not on file Gender Identity Not on file Sexual Orientation Not on file documented as of this encounter Plan of Treatment Upcoming Encounters Date Type Department Care Team (Late st Contact Info) Description 10/24/2023 1:30 PM EDT Office Visit Hematology/Oncology at [address] [phone] Bisi Cheng APRN [facility] [place] [address] documented as of this encounter Visit Diagnoses Not on filedocumented in this encounter Care Teams Charging Machine Operator Relationship Specialty Start Date End Date Celio Sanders MD [address] [place] [address] PCP - General Internal Medicine 05/19/16 documented as of this encounter
--- OUTSIDE RECORDS SUMMARY | 2023-10-12 02:42 | XMS_ITS | Encounter Summary ---
Author Organization [facility] Address [address] [place] [address] Care Team Providers Care Pocket Marker Name Role Phone Celio Sanders MD Primary Care Provider [phone] Encounter Details Date Type Department Care Team (Late st Contact Info) Description 10/17/2019 Lab Requisition [facility] Pathology & Laboratory Medicine - [facility] [address] [place], [place] [address] Outr Resulting Lab, Provider Social History Tobacco [...] Comments ZZCOVID-19 TEST [facility] PCR Today 10/17/2019 15:50 EDT COVID-19 TESTING Routine 10/17/2019 15:5 0 EDT documented in this encounter Results * COVID-19 TEST [facility] LAB PCR (10/17/2019 15:50 EDT) Swab ENTIRE NASOPHARYNX / Unknown 10/17/2019 15:50 EDT 10/17/2019 20:58 EDT Provider Outr Resulting Lab MICROBIOLOGY - GENERAL ORDERABLES [facility] [address] [place] [address] * COVID-19 TESTING (10/17/2019 15:50 EDT) COVID-19 rt-PCR Result Negative Negative 10/18/2019 0:27 EDT [facility] Comment: This test has not [...] history, and epidemiological information. Performed on the Extreme Reach Fusion instrument Performing Lab [place] [facility] Lab 10/18/2019 0:27 EDT [facility] Swab 10/17/2019 15:5 0 EDT 10/17/2019 20:58 EDT Provider Outr Resulting Lab MICROBIOLOGY - GENERAL ORDERABLES [facility] [address] [place] [address] documented in this encounter Visit Diagnoses Not on filedocumented in this encounter Care Teams Pocket Marker Relationship Specialty Start Date End Date Celio Sanders MD [address] [place], [place] [id number] PCP - General 04/30/16 documented as of this encounter
--- OUTSIDE RECORDS SUMMARY | 2023-10-12 02:42 | XMS_ITS | Encounter Summary ---
Author Organization [facility] Address [facility] [place] [address] Care Team Providers Care Enterprise Architect Name Role Phone Celio Sanders MD Primary Care Provider [phone] Encounter Details Date Type Department Care Team (Late st Contact Info) Description 02/22/2023 Telephone Hematology/Oncology at [address] [phone] Harjinder Snyder MD [facility] DR [place] [address] Social History Tobacco Use Types Packs/Day Years Used Date Smoking Tobacco: Never Smokeless Tobacco: Never Alcohol Use Standard Drinks/Week Comments Not Currently 0 (1 standard drink = 0.6 oz pur e alcohol) beer and wine twice a month [facility] Utilities Answer Date Recorded In the past 12 months has [employer], gas, oil, or water [employer] threatened to shut off services in your [...] 1:30 PM EDT Office Visit Hematology/Oncology at [address] [phone] iBsi Cheng APRN [facility] [place] [address] documented as of this encounter Visit Diagnoses Diagnosis Prostate cancer metastatic to intrapelvic lymph node documented in this encounter Care Teams Enterprise Architect Relationship Specialty Start Date End Date Celio Snaders MD [address] [place] [address] PCP - General Internal Medicine 05/19/16 documented as of this encounter
--- OUTSIDE RECORDS SUMMARY | 2023-10-12 02:43 | XMS_ITS | Encounter Summary ---
Author Organization [facility] Address [facility] [place] [address] Care Team Providers Care Qualification Engineer Name Role Phone Celio Sanders MD Primary Care Provider Reason for Visit * Reason Comments Injections Degarelix * Treatment/Therapy Plan Authorization (Routine) - Closed Specialty Diagnoses / Procedures Referred By Contac t Referred To Contact Hematology and Oncology Diagnoses Prostate cancer metastatic to intrapelvic lymph node Procedures Degarelix (Firmagon) Injection ([facility], [facility], [facility] HemOnc) New Patient Induction - As of 02/01/2023 11:18 AM Ronnie Vazquez MD [address] [place] [address] [place] [address] [facility] [address] [place] [id number] Referral ID Status Reason Start Date Expiration Date Visits Re quested Visits Authorized [id number] Closed 02/01/2023 02/01/2024 99 99 Encounter Details Date Type Department Care Team (Late st Contact Info) Description 02/03/2023 1:00 PM EST Infusion Hematology Oncology at [address] [phone] Prostate cancer metastatic to intrapelvic lymph node Social History Tobacco Use Types Packs/Day Years Used Date Smoking Tobacco: Never Smokeless Tobacco: Never Alcohol Use Standard Drinks/Week Comments Not Currently 0 (1 standard drink = 0.6 oz pur e alcohol) beer and wine twice a month Sex and Gender Information Value Date Recorded Sex Assigned at Not on file Gender Identity Not on file Sexual Orientation Not on file documented as of this encounter Last Filed Vital Signs Vital Sign Reading Time Taken Comments Blood Pressure 154/59 02/03/2023 1:02 PM EST Pulse 75 02/03/2023 1:02 PM EST Temperature 36.4 ??C (97.5 ??F) 02/03/2023 1:02 PM ES T Respiratory Rate 18 02/03/2023 1:02 PM EST Oxygen Saturation 98% 02/03/2023 1:02 PM EST Inhaled Oxygen Concentration - - Weight 85 kg (187 lb 6.4 oz) 02/03/2023 1:02 PM EST Height 161.9 cm (5' 3.74) 02/03/2023 1:02 PM ES T Body Mass Index 32.43 02/03/2023 1:02 PM EST documented in this encounter Progress Notes * Caio Venegas RN - 02/03/2023 1:00 PM EST Infusion Note Diagnosis: Prostate Cancer Treatment: Degarelix Injection Degarelix given SQ in LLQ and RLQ. (Two vials) Patient instructed on side effects of medication. Patient states understanding of teaching and patient aware to call clinic with any questions or concerns. Plan: Return to clinic as scheduled. documented in this encounter Plan of Treatment Upcoming Encounters Date Type Department Care Team (Late st Contact Info) Description 10/24/2023 1:30 PM EDT Office Visit Hematology/Oncology at [address] [phone] Bisi Cheng APRN [facility] [place] [address] documented as of this encounter Visit Diagnoses Diagnosis Prostate cancer metastatic to intrapelvic lymph node documented in this encounter Administered Medications Inactive Administered Medications - up to 3 most recent administrations Medication Order MAR Action Action Date Dose Rate Site degarelix (Firmagon) (240 mg/6 mL) injection 240 mg 240 mg, Subcutaneous, ONCE, 1 dose, On Colleen 02/03/23 at 1315, Routine, This agent is restricted to outpatient use. Is this drug being given as an outpatient? Yes Given 02/03/2023 2:04 PM EST 240 mg 20-Other (document in comment section) documented in this encounter Care Teams Qualification Engineer Relationship Specialty Start Date End Date Celio Sanders MD [address] [place] [id number] PCP - General Internal Medicine 05/19/16 documented as of this encounter
--- OUTSIDE RECORDS SUMMARY | 2023-10-12 02:43 | XMS_ITS | Encounter Summary ---
Author Organization [facility] [place] [address] Care Team Providers Care Tool Machine Setup Operator Name Role Phone Celio Sanders MD Primary Care Provider Encounter Details Date Type Department Care Team (Latest Contact Info) Description 02/04/2022 Travel Social History Tobacco Use Types Packs/Day [...] 1:30 PM EDT Office Visit Hematology/Oncology at [address] [phone] Bisi Cheng APRN [facility] DR [place] [address] documented as of this encounter Visit Diagnoses Not on filedocumented in this encounter Care Teams Tool Machine Setup Operator Relationship Specialty Start Date End Date Celio Sanders MD [address] [place], [place] [id number] PCP - General Internal Medicine 05/19/16 documented as of this encounter
--- OUTSIDE RECORDS SUMMARY | 2023-10-12 02:43 | XMS_ITS | Encounter Summary ---
[place] [address] Care Team Providers Care Shoe Lacer Name Role Phone Celio Sanders MD Primary Care Provider Encounter Details Date Type Department Care Team (Latest Contact Info) Description 07/08/2022 Travel Social History Tobacco Use Types Packs/Day [...] 1:30 PM EDT Office Visit Hematology/Oncology at [address] [phone] Bisi Cheng APRN [facility] [place] [address] documented as of this encounter Visit Diagnoses Not on filedocumented in this encounter Care Teams Shoe Lacer Relationship Specialty Start Date End Date Celio Sanders MD [address] [place], [place] [address] PCP - General Internal Medicine 05/19/16 documented as of this encounter
--- OUTSIDE RECORDS SUMMARY | 2023-10-12 02:43 | XMS_ITS | Encounter Summary ---
Author Organization [facility] Address [facility] [place] [address] Care Team Providers Care Returned Item Clerk Name Role Phone Celio Sanders MD Primary Care Provider [phone] Encounter Details Date Type Department Care Team (Latest Contact Info) Description 01/20/2023 9:00 AM EST - 01/20/2023 11:59 PM [facility] Hospital [place] [phone] Teresa Kelly MD [facility] [place] [address] Elevated PSA Discharge Disposition: Home Social History Tobacco Use Types Packs/Day Years [...] Sig Dispensed Refills Start Date End Date b complex vitamins Capsule Take 1 capsule by mouth daily. cholecalciferol, vitamin D3, (VITAMIN D3 ORAL) Take by mouth. lactobacillus rhamnosus, GG, (CULTURELLE) 10 billion cell Capsule Take 1 capsule by mouth daily. vitamin E mixed (NATURAL VITAMIN E ORAL) Take by mouth. DULoxetine DR (Cymbalta) 30 mg Capsule, Delayed Release(E.C.) Take 20 mg by mouth daily. 10/08/2020 multivitamin (THERAGRAN) Tablet Take 1 tablet by mouth nightly. lamoTRIgine (LAMICTAL) 150 mg Tablet Take 1 tablet by mouth daily. 30 tablet 1 08/15/2017 TURMERIC ROOT EXTRACT ORAL Take 1 capsule by mouth 2 times daily. pravastatin (PRAVACHOL) 40 mg Tablet Take 40 mg by mouth daily. LEVOTHYROXINE SODIUM (LEVOTHROID ORAL) Take 75 mcg by mouth daily. QUEtiapine (SEROquel) 100 mg Tablet Take 600 mg by mouth nightly. 06/05/2021 07/19/2023 documented as of this encounter Plan of Treatment Upcoming Encounters Date Type Department Care Team (Late st Contact Info) Description 10/24/2023 1:30 PM EDT Office Visit Hematology/Oncology at [address] [phone] Bisi Cheng APRN [facility] DR MEDICAL ONCOL[facility] [place] [address] documented as of this encounter Procedures Procedure Name Priority Date/Time Associated Diagnosis Comments US GUIDED BIOPSY PROSTATE WITH URONAV FUSION Routine 01/20/2023 10:35 AM EST Elevated PSA SPECIMEN TO PATHOLOGY Routine 01/20/2023 10:31 AM EST SPECIMEN TO PATHOLOGY Routine 01/20/2023 10:31 AM EST SPECIMEN TO PATHOLOGY Routine 01/20/2023 10:31 AM EST SPECIMEN TO PATHOLOGY Routine 01/20/2023 10:31 AM EST SPECIMEN TO PATHOLOGY Routine 01/20/2023 10:31 AM EST SPECIMEN TO PATHOLOGY Routine 01/20/2023 10:31 AM EST SPECIMEN TO PATHOLOGY Routine 01/20/2023 10:31 AM EST SPECIMEN TO PATHOLOGY Routine 01/20/2023 10:31 AM EST SPECIMEN TO PATHOLOGY Routine 01/20/2023 10:31 AM EST SPECIMEN TO PATHOLOGY Routine 01/20/2023 10:31 AM EST SPECIMEN TO PATHOLOGY Routine 01/20/2023 10:31 AM EST SPECIMEN TO PATHOLOGY Routine 01/20/2023 10:31 AM EST SPECIMEN TO PATHOLOGY Routine 01/20/2023 10:31 AM EST SURGICAL PATHOLOGY REPORT Routine 01/20/2023 10:30 AM EST documented in this encounter Results * US Guided Biopsy Prostate with Uronav Fusion (01/20/2023 10:35 AM EST) Anatomical Region Laterality Modality Pelvis Ultrasound 01/20/2023 10:1 7 AM EST Impressions 01/20/2023 1:10 PM EST Prostate Summary Transrectal ultrasound of the prostate was performed. Hypoechoic area seen: Peripheral zone base to apex extending from right to left of midline. Ultrasound guidance was provided for Dr. Kelly of the section of Urology who performed multiple biopsies in the clinic location. UroNav fusion was used for this procedure. Electronically signed by: Mahnaz Coello MD, [facility] ([phone]), at 01/20/2023 1:03 PM Thank you for letting us participate in the care of this patient. If you are a health care provider and have any questions regarding this report, please contact the number above. For patients who have questions, please contact the health career law clerk that requested your imaging first. ? Mahnaz Coello, Staff Physician Electronically Signed Final Report ?? 01/20/2023 01:09 pm Narrative 01/20/2023 1:10 PM EST Male Pelvis ? (Signed Final 01/20/2023 01:09 pm) PATIENT INFO: ID #: ? [id number] ?: ??[birth year] (72 yrs)(M) Name: ? NAIN LIPSCOMB ?Visit Date: 01/20/2023 10:17 am PERFORMED BY: Attending: ?Mode MUNOZ, Mahnaz Burroughs Performed By: ? Joce Phelps RDMS Referred By: ?TERESA KELLY Location: ? [place] SERVICE(S) PROVIDED: UTRBXURO - Prostate Biopsy with UroNav Fusion ? [id number], [id number] - [id number] INDICATIONS: PI-RADS 5 TECHNIQUE/SCAN QUALITY: Technique: ?Transducer #:[id number] COMPARISON: MRI Pelvis:12/30/22 --------- PROSTATE: --------- Size (cm) ?L: ??5.0 ? AP: ??4.2 ? TV: ??4.7 Vol (ml): ?51.7 Comment: ?Hypoechoic area seen: Peripheral zone base to ? apex extending from right to left of midline. ADDITIONAL FINDINGS: Template biopsies were performed: 6 biopsies from the right; 6 biopsies from the left. Additional biopsies were obtained through the suspicious area(s) using UroNav fusion: 4 biopsies from the right. Procedure Note Mahnaz Coello MD - 01/20/2023 Male Pelvis (Signed Final 01/20/2023 01:09 pm) PATIENT INFO: ID #: [id number] : [birth year] (72 yrs)(M) Name: NAIN LIPSCOMB Visit Date: 01/20/2023 10:17 am PERFORMED BY: Attending: Mahnaz Coello MD Performed By: Joce Phelps RDMS Referred By: TERESA KELLY Location: [place] SERVICE(S) PROVIDED: UTRBXURO - Prostate Biopsy with UroNav Fusion [id number], [id number] - [id number] INDICATIONS: PI-RADS 5 TECHNIQUE/SCAN QUALITY: Technique: Transducer #:[id number] COMPARISON: MRI Pelvis:12/30/22 --------- PROSTATE: --------- Size (cm) L: 5.0 AP: 4.2 TV: 4.7 Vol (ml): 51.7 Comment: Hypoechoic area seen: Peripheral zone base to apex extending from right to left of midline. ADDITIONAL FINDINGS: Template biopsies were performed: 6 biopsies from the right; 6 biopsies from the left. Additional biopsies were obtained through the suspicious area(s) using UroNav fusion: 4 biopsies from the right. IMPRESSION Prostate Summary Transrectal ultrasound of the prostate was performed. Hypoechoic area seen: Peripheral zone base to apex extending from right to left of midline. Ultrasound guidance was provided for Dr. Kelly of the section of Urology who performed multiple biopsies in the [address] [place] [address] location. UroNav fusion was used for this procedure. Electronically signed by: Mahnaz Coello MD, [facility] ([phone]), at 01/20/2023 1:03 PM Thank you for letting us participate in the care of this patient. If you are a health care provider and have any questions regarding this report, please contact the number above. For patients who have questions, please contact the health career law clerk that requested your imaging first. Mahnaz Coello, Staff Physician Electronically Signed Final Report 01/20/2023 01:09 pm Teresa Kelly MD [facility] PROC ORDERA BLES * Specimen to Pathology (01/20/2023 10:31 AM EST) AP Specimen 01/20/2023 10:3 1 AM EST 01/20/2023 10:31 AM EST Narrative [facility] - 01/20/2023 10:31 AM EST Specimen requisition ordered. ??Separate Pathology report to follow Teresa Kelly MD PATHOLOGY/CYTOLOGY ORDERABLES [facility] [place] [address] * Specimen to Pathology (01/20/2023 10:31 AM EST) AP Specimen 01/20/2023 10:3 1 AM EST 01/20/2023 10:31 AM EST Narrative [facility] - 01/20/2023 10:31 AM EST Specimen requisition ordered. ??Separate Pathology report to follow Teresa Kelly MD PATHOLOGY/CYTOLOGY ORDERABLES Performing Organization Address City/[facility]/ZIP Co de Phone Number [facility] [place] [address] * Specimen to Pathology (01/20/2023 10:31 AM EST) AP Specimen 01/20/2023 10:3 1 AM EST 01/20/2023 10:[address] [facility] - 01/20/2023 10:31 AM EST Specimen requisition ordered. ??Separate Pathology report to follow Teresa Kelly MD PATHOLOGY/CYTOLOGY ORDERABLES Performing Organization Address City/[facility]/ZIP Co de Phone Number [facility] [place] [address] * Specimen to Pathology (01/20/2023 10:31 AM EST) AP Specimen 01/20/2023 10:3 1 AM EST 01/20/2023 10:[address] [facility] - 01/20/2023 10:31 AM EST Specimen requisition ordered. ??Separate Pathology report to follow Teresa Kelly MD PATHOLOGY/CYTOLOGY ORDERABLES Performing Organization Address [facility] Co de Phone Number [facility] [place] [address] * Specimen to Pathology (01/20/2023 10:31 AM EST) AP Specimen 01/20/2023 10:3 1 AM EST 01/20/2023 10:[address] [facility] - 01/20/2023 10:31 AM EST Specimen requisition ordered. ??Separate Pathology report to follow Teresa Kelly MD PATHOLOGY/CYTOLOGY ORDERABLES Performing Organization Address City/[facility] Co de Phone Number [facility] [place] [address] * Specimen to Pathology (01/20/2023 10:31 AM EST) AP Specimen 01/20/2023 10:3 1 AM EST 01/20/2023 10:[address] [facility] - 01/20/2023 10:31 AM EST Specimen requisition ordered. ??Separate Pathology report to follow Teresa Kelly MD PATHOLOGY/CYTOLOGY ORDERABLES Performing Organization Address [facility] Co de Phone Number [facility] [place] [address] * Specimen to Pathology (01/20/2023 10:31 AM EST) AP Specimen 01/20/2023 10:3 1 AM EST 01/20/2023 10:[address] [facility] - 01/20/2023 10:31 AM EST Specimen requisition ordered. ??Separate Pathology report to follow Teresa Kelly MD PATHOLOGY/CYTOLOGY ORDERABLES Performing Organization Address [facility] de Phone Number [facility] [place] [address] * Specimen to Pathology (01/20/2023 10:31 AM EST) AP Specimen 01/20/2023 10:3 1 AM EST 01/20/2023 10:[address] [facility] - 01/20/2023 10:31 AM EST Specimen requisition ordered. ??Separate Pathology report to follow Teresa Kelly MD PATHOLOGY/CYTOLOGY ORDERABLES Performing Organization Address [facility] Co de Phone Number [facility] [place] [address] * Specimen to Pathology (01/20/2023 10:31 AM EST) AP Specimen 01/20/2023 10:3 1 AM EST 01/20/2023 10:[address] [facility] - 01/20/2023 10:31 AM EST Specimen requisition ordered. ??Separate Pathology report to follow Teresa Kelly MD PATHOLOGY/CYTOLOGY ORDERABLES Performing Organization Address [facility]/State/[place] [address] * Specimen to Pathology (01/20/2023 10:31 AM EST) AP Specimen 01/20/2023 10:3 1 AM EST 01/20/2023 10:[address] [facility] - 01/20/2023 10:31 AM EST Specimen requisition ordered. ??Separate Pathology report to follow Teresa Kelly MD PATHOLOGY/CYTOLOGY ORDERABLES Performing Organization Address City/[facility]/[place] [address] * Specimen to Pathology (01/20/2023 10:31 AM EST) AP Specimen 01/20/2023 10:3 1 AM EST 01/20/2023 10:[address] [facility] - 01/20/2023 10:31 AM EST Specimen requisition ordered. ??Separate Pathology report to follow Teresa Kelly MD PATHOLOGY/CYTOLOGY ORDERABLES Performing Organization Address City/[facility] Co de Phone Number [facility] [place] [address] * Specimen to Pathology (01/20/2023 10:31 AM EST) AP Specimen 01/20/2023 10:3 1 AM EST 01/20/2023 10:[address] [facility] - 01/20/2023 10:31 AM EST Specimen requisition ordered. ??Separate Pathology report to follow Teresa Kelly MD PATHOLOGY/CYTOLOGY ORDERABLES Performing Organization Address City/[facility]/ZIP Co de Phone Number [facility] [place] [address] * Specimen to Pathology (01/20/2023 10:31 AM EST) AP Specimen 01/20/2023 10:3 1 AM EST 01/20/2023 10:[address] [facility] - 01/20/2023 10:31 AM EST Specimen requisition ordered. ??Separate Pathology report to follow Teresa Kelly MD PATHOLOGY/[place] [address] * Surgical Pathology Report (01/20/2023 10:30 AM EST) Final Diagnosis [id number] ? Location: 3S The signing pathologist has (i) examined the relevant preparation(s) for the specimen(s) and (ii) rendered or confirmed the diagnosis(es). . ?Surgical Pathology DIAGNOSIS A - Prostate, Right lateral base, biopsy: - Prostatic adenocarcinoma, with cribriform features ?Grade Group 5 ??(Harrington score 5+4=9), involving 40% of a single core. - Harrington pattern 5 represents 80% of tumor, Harrington pattern 4 represents 20% of tumor. B - Prostate, Right lateral mid, biopsy: - Prostatic adenocarcinoma, ?? Grade Group 5 ??(Harrington score 5+5=10), involving 70% of a single core. C - Prostate, Right lateral apex, biopsy: - Prostatic adenocarcinoma, ?? Grade Group 5 ??(Andre score 5+4=9), involving 30% of a single core. - Andre pattern 5 represents 90% of tumor, Harrington pattern 4 represents 10% of tumor. D - Prostate, Right base, biopsy: - Prostatic adenocarcinoma, with cribriform features, ?Grade Group 5 ??(Andre score 5+4=9), involving 80% of a single core. - Andre pattern 5 represents 90% of tumor, Ander pattern 4 represents 10% of tumor. - ??Perineural invasion is present. E - Prostate, Right mid, biopsy: - Prostatic adenocarcinoma, ?? Grade Group 5 ??(Harrington score 5+4=9), involving 70% of a single core. - Andre pattern 5 represents 90% of tumor, Andre pattern 4 represents 10% of tumor. - ??Perineural invasion is present. F - Prostate, Right apex, biopsy: - Prostatic adenocarcinoma, with cribriform features, ?Grade Group 5 ??(Andre score 5+4=9), involving 60% of a single core. - Harrington pattern 5 represents 80% of tumor, Harrington pattern 4 represents 20% of tumor. G - Prostate, Left lateral base, biopsy: - Prostatic adenocarcinoma, with cribriform features, ?Grade Group 5 ??(Harrington score 5+4=9), involving 40% of a single core. - Andre pattern 5 represents 90% of tumor, Harrington pattern 4 represents 10% of tumor. - ??Perineural invasion is present. H - Prostate, Left lateral mid, biopsy: - Prostatic adenocarcinoma, with cribriform features, ?Grade Group 5 ??(Andre score 5+4=9), involving 60% of a single core. - Harrington pattern 5 represents 90% of tumor, Andre pattern 4 represents 10% of tumor. - ??Perineural invasion is present. I - Prostate, Left lateral apex, biopsy: - Prostatic adenocarcinoma, with cribriform features, ?Grade Group 5 ??(Harrington score 5+4=9), involving 60% of a single core. . DIAGNOSIS - Harrington pattern 5 represents 90% of tumor, Harrington pattern 4 represents 10% of tumor. J - Prostate, Left base, biopsy: - Prostatic adenocarcinoma, with cribriform features, ?Grade Group 5 ??(Harrington score 5+4=9), involving 50% of a single core. - Harrington pattern 5 represents 70% of tumor, Andre pattern 4 represents 30% of tumor. - ??Perineural invasion is present. K - Prostate, Left mid, biopsy: - Prostatic adenocarcinoma, ?? Grade Group 5 ??(Andre score 5+4=9), involving 60% of a single core. - Harrington pattern 5 represents 90% of tumor, Harrington pattern 4 represents 10% of tumor. - ??Perineural invasion is present. L - Prostate, Left apex, biopsy: - Prostatic adenocarcinoma, ?? Grade Group 5 ??(Andre score 5+5=10), involving 40% of a single core. M - Prostate, MRI LESION #1, biopsy: - Prostatic adenocarcinoma, ?? Grade Group 5 ??(Harrington score 5+4=9), with cribriform features, involving four of cores ?? (80%, 80%, 70%, 60%, respectively). - Andre pattern 5 accounts for 70% of tumor. - ??Perineural invasion is present. Electronically signed by: ?DORIAN STILL Verified: ??01/24/2023 9:45 Performed at: ??-[facility] Dept. of Pathology, [place] [address] Analysis Intern: Kameron Clements MD, AP, ??CLIA Certificate: [id number] SPECIMEN(S) SUBMITTED A - Prostate, Right lateral base, biopsy (1) B - Prostate, Right lateral mid, biopsy (1) C - Prostate, Right lateral apex, biopsy (1) D - Prostate, Right base, biopsy (1) E - Prostate, Right mid, biopsy (1) F - Prostate, Right apex, biopsy (1) G - Prostate, Left lateral base, biopsy (1) H - Prostate, Left lateral mid, biopsy (1) I - Prostate, Left lateral apex, biopsy (1) J - Prostate, Left base, biopsy (1) K - Prostate, Left mid, biopsy (1) L - Prostate, Left apex, biopsy (1) M - Prostate,MRI LESION #1, biopsy (4) CLINICAL INFORMATION Elevated PSA . SPECIMEN PROCESSING A - Labeled/Fixativ e: Prostate right lateral base, formalin. Quantity/Size: Single, 1.7 x 0.1 cm Tissue Description: Buna needle core biopsy. Sections/Proces sing: Entirely submitted in 1 cassette labeled A1. B - Labeled/Fixativ e: Prostate right lateral mid, formalin. Quantity/Size: Single, 1.4 x 0.1 cm Tissue Description: Buna needle core biopsy. Sections/Proces sing: Entirely submitted in 1 cassette labeled B1. C - Labeled/Fixativ e: Prostate right lateral apex, formalin. Quantity/Size: Single, 1.6 x 0.1 cm Tissue Description: Buna needle core biopsy. Sections/Proces sing: Entirely submitted in 1 cassette labeled C1. D - Labeled/Fixativ e: Prostate right base, formalin. Quantity/Size: Single, 1.9 x 0.1 cm Tissue Description: Rsoales-white needle core biopsy. Sections/Proces sing: Entirely submitted in 1 cassette labeled D1. E - Labeled/Fixativ e: Prostate right mid, formalin. Quantity/Size: Single, 1.9 x 0.1 cm Tissue Description: Rosales-pink needle core biopsy. Sections/Proces sing: Entirely submitted in 1 cassette labeled E1. F - Labeled/Fixativ e: Prostate right apex, formalin. Quantity/Size: Single, 1.8 x 0.1 cm Tissue Description: Rosales-pink needle core biopsy. Sections/Proces sing: Entirely submitted in 1 cassette labeled F1. G - Labeled/Fixativ e: Prostate left lateral base, formalin. Quantity/Size: Single, 2.0 x 0.1 cm Tissue Description: Rosales-pink needle core biopsy. Sections/Proces sing: Entirely submitted in 1 cassette labeled G1. H - Labeled/Fixativ e: Prostate left lateral mid, formalin. Quantity/Size: Single, 2.0 x 0.1 cm Tissue Description: Rosales-pink needle core biopsy. Sections/Proces sing: Entirely submitted in 1 cassette labeled H1. I - Labeled/Fixativ e: Prostate left lateral apex, formalin. Quantity/Size: Single, 1.6 x 0.1 cm Tissue Description: Yellow-rosales needle core biopsy. Sections/Proces sing: Entirely submitted in 1 cassette labeled I1. J - Labeled/Fixativ e: Prostate left base, formalin. Quantity/Size: Single, 2.0 x 0.1 cm Tissue Description: Rosales-pink needle core biopsy. Sections/Proces sing: Entirely submitted in 1 cassette labeled J1. K - Labeled/Fixativ e: Prostate left mid, formalin. Quantity/Size: Single, 1.8 x 0.1 cm Tissue Description: Buna-white needle core biopsy. . SPECIMEN PROCESSING Sections/Proces sing: Entirely submitted in 1 cassette labeled K1. L - Labeled/Fixativ e: Prostate left apex, formalin. Quantity/Size: Single, x 0.1 cm Tissue Description: Buna needle core biopsy. Sections/Proces sing: Entirely submitted in 1 cassette labeled L1. M - Labeled/Fixativ e: MRI lesion #1, formalin. Quantity/Size: Four, ranging from 1.5 x 0.1 cm to 1.8 x 0.1 cm Tissue Description: Yellow-white needle core biopsies. Sections/Proces sing: Entirely submitted in 2 cassettes labeled M1-M2. ??sns 01/24/2023 9:45 AM [facility] PROSTATIC STRUCTURE / Unknown 01/20/2023 10:30 AM EST 01/20/2023 10:30 AM EST PROSTATIC STRUCTURE / Unknown 01/20/2023 10:30 AM EST 01/20/2023 10:30 AM EST PROSTATIC STRUCTURE / Unknown 01/20/2023 10:30 AM EST 01/20/2023 10:30 AM EST PROSTATIC STRUCTURE / Unknown 01/20/2023 10:30 AM EST 01/20/2023 10:30 AM EST PROSTATIC STRUCTURE / Unknown 01/20/2023 10:30 AM EST 01/20/2023 10:30 AM EST PROSTATIC STRUCTURE / Unknown 01/20/2023 10:30 AM EST 01/20/2023 10:30 AM EST PROSTATIC STRUCTURE / Unknown 01/20/2023 10:30 AM EST 01/20/2023 10:30 AM EST PROSTATIC STRUCTURE / Unknown 01/20/2023 10:30 AM EST 01/20/2023 10:30 AM EST PROSTATIC STRUCTURE / Unknown 01/20/2023 10:30 AM EST 01/20/2023 10:30 AM EST PROSTATIC STRUCTURE / Unknown 01/20/2023 10:30 AM EST 01/20/2023 10:30 AM EST PROSTATIC STRUCTURE / Unknown 01/20/2023 10:30 AM EST 01/20/2023 10:30 AM EST PROSTATIC STRUCTURE / Unknown 01/20/2023 10:30 AM EST 01/20/2023 10:30 AM EST PROSTATIC STRUCTURE / Unknown 01/20/2023 10:30 AM EST 01/20/2023 10:30 AM EST Teresa Kelly MD PATHOLOGY/CYTOLOGY ORDERABLES [facility] [address] [place] [address] documented in this encounter Visit Diagnoses Diagnosis Elevated PSA Elevated prostate specific antigen (PSA) documented in this encounter Care Teams Returned Item Clerk Relationship Specialty Start Date End Date Celio Sanders MD [address] [place] [address] PCP - General Internal Medicine 05/19/16 documented as of this encounter
--- OUTSIDE RECORDS SUMMARY | 2023-10-12 02:43 | XMS_ITS | Encounter Summary ---
Author Organization Formerly [facility] Address [facility] [place] [address] Care Team Providers Care News Assignment Editor Name Role Phone Celio Sanders MD Primary Care Provider [phone] Reason for Visit * Consultation (Routine) - Closed Specialty Diagnoses / Procedures Referred By Contac t Referred To Contact Hematology and Oncology Diagnoses Prostate cancer metastatic to intrapelvic lymph node Ronnie Vazquez MD [address] [place] [address] [place] [address] Harjinder Ruffin MD [facility] [place] [address] Referral ID Status Reason Start Date Expiration Date V isits Requested Visits Authorized [id number] Closed Consult, Test & Treat 02/01/2023 02/01/2024 1 1 Encounter Details Date Type Department Care Team (Late st Contact Info) Description 02/15/2023 3:00 PM EST Office Visit Hematology/Oncology at [address] [address] Harjinder Ruffin MD [facility] [place] [address] Bisi Cheng APRN [facility] [place] [address] Malignant neoplasm of prostate; BRCA gene mutation positive Social History Tobacco Use Types Packs/Day Years Used Date Smoking Tobacco: Never Smokeless Tobacco: Never Alcohol Use Standard Drinks/Week Comments Not Currently 0 (1 standard drink = 0.6 oz pur e alcohol) beer and wine twice a month [facility] Utilities Answer Date Recorded In the [...] Sign Reading Time Taken Comments Blood Pressure 138/80 02/15/2023 3:35 PM EST Pulse 88 02/15/2023 3:35 PM EST Temperature 36.3 ??C (97.3 ??F) 02/15/2023 3:35 PM ES T Respiratory Rate 18 02/15/2023 3:35 PM EST Oxygen Saturation 98% 02/15/2023 3:35 PM EST Inhaled Oxygen Concentration - - Weight 83.7 kg (184 lb 9.6 oz) 02/15/2023 3:35 P M EST Height 161.9 cm (5' 3.74) 02/15/2023 3:35 PM ES T Body Mass Index 31.95 02/15/2023 3:35 PM EST documented in this encounter Progress Notes * Tracy Reno RN - 02/15/2023 3:00 PM EST [facility] New Patient Medical Oncology Note SOCIAL ASSESSMENT: See [facility] social assessment information entered. 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 [ x ] yes [ ] no Local Pharmacy: [facility] FUNCTIONAL SCREENING: Balance difficulty: [x ]no [ ]yes At risk for fall: [ ] no [ ] yes If yes, actions implemented to prevent fall. Patient/family instructed to avoid independent ambulation. Use wheelchair and ask for assistance of staff while in the clinic. ADL [ x ] no limits [ ] needs dressing assistance [ ] needs meal assistance Assistive device:[ x ]none [ ]cane [ ]walker [ ]wheelchair [ ]other: explain PAIN ASSESSMENT: [ 0 ] out of 10 Location: Description: [ ] Dull [ ] Sharp [ ] Burning [ ] Throbbing [ ] Radiating [ ] Continuous [ ] Intermittent Aggravating Factors: [ ] Movement [ ] Position [ ] Immobility [ ] Other Alleviating Factors: [ ] Medication [ ] Positioning [ ] Other Current Pain Management Plan: [ ] Satisfied [ ] Not satisfied LEARNING STYLE: Learning Needs Assessment up to date (yearly) [ ] TEACHING: __ NCI ???Chemotherapy and You?? and folder given __ Specific chemotherapy literature provided and reviewed with patient VASCULAR ACCESS ASSESSMENT: getting chemo? [ ]yes [ ]no Need port? [ ] yes [ ] no * Harjinder Ruffin MD - 02/15/2023 3:00 PM EST Images from the original note were not included. [facility] [place] [address] ONCOLOGY F/u visit REFERRING: Dr Vazquez, Dr [...] biopsy revealed prostatic adenocarcinoma, Grade Group 5 (Andre score 5+5=10) Genetic testing Mar 2018: pathogenic variant in BRCA2 (c.1929del, p.[id number] fs15). VUS in AXIN2 and CTNNA1 -01/06/23 [...] for follow-up appointment on prostate cancer. He underwent pelvic MRI and biopsy of the prostate. Started ADT with degarelix on February 03. REVIEW OF SYSTEMS: Aside from above, the remainder of the the ROS was negative PAST MEDICAL HISTORY: Past Medical History: Diagnosis Date Anxiety Finger fracture multiple from basket ball injuries Hyperlipidemia Prostate cancer Past Surgical History: Procedure Laterality Date APPENDECTOMY burst CHOLECYSTECTOMY, LAPAROSCOPIC PRO COLONOSCOPY, DIAGNOSTIC N/A 05/12/2021 COLONOSCOPY, DIAGNOSTIC performed by Nicky Bray MD at [facility] ENDOSCOPY PROSTATE BIOPSY US GUIDED BIOPSY PROSTATE WITH URONAV FUSION 01/20/2023 US Guided Biopsy Prostate with Uronav Fusion 01/20/2023 [facility] RAD ULTRASOUND MEDS: Medications 02/15/23 1540 Medication Sig Taking? b complex vitamins Capsule Take 1 capsule by mouth daily. Yes QUEtiapine (SEROquel) 100 mg Tablet Take 100 mg by mouth nightly. Yes cholecalciferol, vitamin D3, (VITAMIN D3 ORAL) Take by mouth. Yes lactobacillus rhamnosus, GG, (CULTURELLE) 10 billion cell Capsule Take 1 capsule by mouth daily. Yes vitamin E mixed (NATURAL VITAMIN E ORAL) Take by mouth. Yes DULoxetine DR (Cymbalta) 30 mg Capsule, Delayed Release(E.C.) Take 30 mg by mouth daily. Yes multivitamin (THERAGRAN) Tablet [...] Take 75 mcg by mouth daily. 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 PS: ECOG = 0 General: NAD Deferred Pathology: 01/20/2023 prostatic adenocarcinoma, Grade Group 5 (Pomona score 5+5=10) LABS: 02/15/2023 BUN 31, creatinine 1.1, calcium 9.3, WBC 7.94, hemoglobin 13.1, platelet count 341 Reviewed PSA as above IMAGING STUDIES: 12/30/22 pelvic MRI: Extraprostatic disease: [...] radiation oncologist Dr. Victorino Hassan at the [facility] Given his high Pomona score question is if we should intensify [...] observed, with no substantial between-group differences in [id number] measures. CONCLUSIONS In patients with prostate cancer with high-risk biochemical recurrence, enzalutamide plus leuprolide was superior to leuprolide alone with respect to metastasis-free survival; enzalutamide monotherapy was also superior to leuprolide alone. The safety profile of enzalutamide was consistent with that shown in previous clinical studies, with no apparent detrimental effect on quality of life. (Fundedby [employer] and [employer]; LOC&ALL ClinicalTrials.gov number, [id number]. opens in new tab.) On January 20 [...] if his PSA started to rise again. Limited information was given to the patient. He wants to think about that option. He will discuss it with radiation oncologist Dr. Hassan when he will see him in 10 days. Nain will continue to follow with Dr. Vazquez as scheduled The plan was discussed with the patient and his in details. All questions were answered to patient's satisfaction. HARJINDER RUFFIN MD, PhD Oncology This encounter was primarily counseling-based (>50 % of total time) with total time of 45 minutes, of which 30 minutes was spent [...] PM EDT Office Visit Hematology/Oncology at [address] [phone] Bisi Cheng APRN [facility] [place] [address] Scheduled Referrals Name Type Priority Associated Diagnoses Orde r Schedule Referral to Hematology and Oncology Outpatient Referral Routine Prostate cancer metastatic to intrapelvic lymph node Ordered: 02/01/2023 documented as of this encounter Visit Diagnoses Diagnosis Malignant neoplasm of prostate BRCA gene mutation positive documented in this encounter Care Teams News Assignment Editor Relationship Specialty Start Date End Date Celio Sanders MD [address] [place] [address] PCP - General Internal Medicine 05/19/16 documented as of this encounter
--- OUTSIDE RECORDS SUMMARY | 2023-10-12 02:43 | XMS_ITS | Encounter Summary ---
[place] [address] Care Team Providers Care Registered Veterinary Technician Name Role Phone Celio Sanders MD Primary Care Provider [phone] Encounter Details Date Type Department Care Team (Latest Contact Info) Description 10/12/2022 Travel Social History Tobacco Use Types Packs/Day [...] 1:30 PM EDT Office Visit Hematology/Oncology at [address] [address] Bisi Cheng APRN [facility] [place] [address] documented as of this encounter Visit Diagnoses Not on filedocumented in this encounter Care Teams Registered Veterinary Technician Relationship Specialty Start Date End Date Celio Sanders MD [address] [place], [place] [address] PCP - General Internal Medicine 05/19/16 documented as of this encounter
--- OUTSIDE RECORDS SUMMARY | 2023-10-12 02:43 | XMS_ITS | Encounter Summary ---
[facility] [place] [address] Care Team Providers Care Mexican Food Maker Name Role Phone Celio Sanders MD Primary Care Provider [phone] Reason for Visit * Consultation (Routine) - Closed Specialty Diagnoses / Procedures Referred By Tess de la rosa Referred To Contact Urology Diagnoses Prostate cancer metastatic to intrapelvic lymph node Ronnie Vazquez MD [address] [place] [address] [place] [address] [facility] [place] [address] Referral ID Status Reason Start Date Expiration Date V isits Requested Visits Authorized [id number] Closed Consult, Test & Treat 01/03/2023 01/03/2024 1 1 Encounter Details Date Type Department Care Team (Late st Contact Info) Description 01/20/2023 9:30 AM EST Procedure [place] [address] Teresa Kelly MD [facility] [place] [address] Elevated PSA Social History Tobacco Use Types Packs/Day Years [...] Sign Reading Time Taken Comments Blood Pressure 137/71 01/20/2023 9:10 AM EST Pulse 80 01/20/2023 9:10 AM EST Temperature - - Respiratory Rate - - Oxygen Saturation 96% 01/20/2023 9:10 AM EST Inhaled Oxygen Concentration - - Weight 81.6 kg (180 lb) 01/20/2023 9:10 AM EST Height - - Body Mass Index 31.15 11/22/2022 2:59 PM EDT documented in this encounter Patient Instructions * Patient Instructions* Gaye HandleyEMERSON - 01/20/2023 9:30 AM EST PROSTATE BIOPSY DISCHARGE INFORMATION You will get a call next week with your biopsy pathology. Your pathology result may be released to your [facility] account before we have had a chance to contact you. You should feel free to check your [facility] if you would like to see if your pathology has been release. However, by doing so, you may receive your prostate biopsy results PRIOR to us discussing them with you. If you are not comfortable with receiving your pathology prior to our discussion, please de sheree from looking at your biopsy results until we can contact you. You should call your doctor if you experience any of the following: You see blood in your urine, bowel movements, or semen outside of the timeframe listed below. You have a temperature greater than 101.5 degrees. You start to pass large clots of blood in your urine or it turns the color of tomato juice. You are having increasing pain. Your doctor may be reached at weekdays from 8 AM to 5 PM. If you should develop any of these symptoms after these hours, please call the hospital liner machine operator helper at and ask to have the Urology Resident paged or report to the Emergency Department. What do I need to watch out for after the biopsy? You will almost certainly have some blood in your urine. This will generally be gone within 48 hours. However, it may last on and off for up to two weeks. You will almost certainly have some blood in your bowels. This will generally be gone within 48 hours. However, it may last on and off for up to two weeks. You will almost certainly have some blood in your semen or sperm. This may last on and off for up to six weeks. If you have been instructed to take an antibiotic in addition to the antibiotic given to you on theclinic day, please finish the remainder of any prescription ordered. Are there any restrictions after the prostate biopsy? You should take it easy after the biopsy until the blood clears in your urine and stool. Drink extra fluids. We suggest no heavy lifting, straining, or sports until after you stop seeing blood in theurine or stool. You should not have sexual activity for 48 hours after the biopsy. As long as you feel okay, you should be able to drive yourself home from the biopsy. We recommend that you bring someone with you but this is not absolutely necessary. You may resume aspirin and other medications containing aspirin or NSAIDS (Motrin, Advil, naprosyn,etc.) one week after your biopsy. If you are on a blood thinner, such as Coumadin, heparin, or fragmin, please contact your Primary Care Provider after the procedure to see when they wish you to resume medications. It is important you do this because some medications will require a blood test as well. When will I get the results of the biopsy? The biopsy needs to be processed and examined by a pathologist. In general, this takes about a week. Your doctor will then either see you in the office or call you on the telephone to give you the results. If you have not heard a result within 10 days of your biopsy, please call your doctor. What happens if I am found to have prostate cancer? If you are found to have prostate cancer, your doctor will discuss what this means for you. Prostate cancer is very treatable and, in most cases, there are several good treatment options. You will begiven or sent a package of information about the treatment of prostate cancer. An appointment will be made for a follow-up visit one to two weeks after the biopsy result is given to you in order to discuss all the issues in more detail and arrange a treatment plan. What happens if the biopsy does not show prostate cancer? Your doctor will discuss the results of the biopsy with you. Your doctor will give you a recommendation regarding any necessary follow up. documented in this encounter Progress Notes * Teresa Kelly MD - 01/20/2023 9:30 AM EST Procedure Note Procedure: Transrectal ultrasound and prostate biopsy, URONAV guided Surgeon: Teresa Kelly MD Preoperative Diagnosis: Prostate cancer Post Operative Diagnosis: Successful Biopsy Complications: None Estimated Blood Loss: <10cc Procedure: A time out procedure was completed using the standard checklist. It was confirmed the patient had a urinanalysis that did not show evidence of a urinary infection prior to the biopsy. It was confirmed that the patient took Levaquin 500mg po ~ 1 hour ago. The TRUS probe was inserted into the rectum and the prostate imaged in the sagittal and transverse dimensions. Prostate volume was 51cc. The prostate was homogeneous. Prostate calcifications were observed at the junction of the peripheral and transition zones. Hypoechoic areas: right PZ Rectum, periprostatic structures, visualized areas of the bladder, vas deferens and seminal vesicles all appeared normal Prostatic anaesthesia was achieved in the standard fashion. A series of prostatic biopsies were obtained from the lateral apex, mid,and base as well as mid sagittal apex, mid and base. Biopsies were obtained from both the right and left side of the prostate. Additional biopsies:4 from targeted area A total of 16 biopsies were obtained. The patient tolerated the procedure without difficulty. I will contact him in about a weeks time with the results. He understands that if he does not hear from me or has any problems to contact my office. documented in this encounter Plan of Treatment Upcoming Encounters Date Type Department Care Team (Late st Contact Info) Description 10/24/2023 1:30 PM EDT Office Visit Hematology/Oncology at [address] [address] Bisi Cheng APRN [facility] [place] [address] Scheduled Orders Name Type Priority Associated Diagnoses Orde r Schedule PSA (Ultrasensitive), total and free Lab Routine Elevated PSA Expected: 01/05/2023 (Approximate), Expires: 01/04/2024 documented as of this encounter Results * US Guided Biopsy [...] Urology who performed multiple biopsies in the [address] [place] [address] location. UroNav fusion was used for this procedure. Electronically signed by: Mahnaz Coello MD, [facility] ([phone]), at 01/20/2023 1:03 PM Thank you for letting us participate in the care of this patient. If you are a health care provider and have any questions regarding this report, please contact the number above. For patients who have questions, please contact the health care partner that requested your imaging first. ? Mahnaz Coello, Staff Physician Electronically Signed Final Report ?? 01/20/2023 01:09 pm Narrative 01/20/2023 1:10 PM EST Male Pelvis ? (Signed Final 01/20/2023 01:09 pm) PATIENT INFO: ID #: ? [id number] ?: [birth year] (72 yrs)(M) Name: ? NAIN LIPSCOMB ?Visit Date: 01/20/2023 10:17 am PERFORMED BY: Attending: ?Mode MUNOZ, Mahnaz Burroughs Performed By: ? Joce Phelps RDMS Referred By: ?TERESA KELLY Location: ? [place] SERVICE(S) PROVIDED: UTRBXURO - Prostate Biopsy with UroNav Fusion ? [id number], [id number] - [id number] INDICATIONS: PI-RADS 5 TECHNIQUE/SCAN QUALITY: Technique: ?Transducer [...] 01/20/2023 01:09 pm) PATIENT INFO: ID #: [id number] : [birth year] (72 yrs)(M) Name: NAIN LIPSCOMB Visit Date: 01/20/2023 10:17 am PERFORMED BY: Attending: Mahnaz Coello MD Performed By: Joce Phelps RDMS Referred By: TERESA KELLY Location: [place] SERVICE(S) PROVIDED: UTRBXURO - Prostate Biopsy with UroNav Fusion [id number], [id number] - [id number] INDICATIONS: PI-RADS 5 TECHNIQUE/SCAN QUALITY: Technique: Transducer [...] Urology who performed multiple biopsies in the [address] [place] [address] location. UroNav fusion was used for this procedure. Electronically signed by: Mahnaz Coello MD, [facility] ([phone]), at 01/20/2023 1:03 PM Thank you for letting us participate in the care of this patient. If you are a health care provider and have any questions regarding this report, please contact the number above. For patients who have questions, please contact the health care partner that requested your imaging first. Mahnaz Coello, Staff Physician Electronically Signed Final Report 01/20/2023 01:09 pm Teresa Kelly MD [facility] PROC ORDERA BLES documented in this encounter Visit Diagnoses Diagnosis Elevated PSA Elevated prostate specific antigen (PSA) Elevated PSA Elevated prostate specific antigen (PSA) documented in this encounter Administered Medications Inactive Administered Medications - up to 3 most recent administrations Medication Order MAR Action Action Date Dose Rate Site levoFLOXacin (Levaquin) tablet 500 mg 500 mg, Oral, ONCE, 1 dose, On Colleen 01/20/23 at 0930, Routine Given 01/20/2023 9:08 AM EST 500 mg documented in this encounter Care Teams Mexican Food Maker Relationship Specialty Start Date End Date Celio Sanders MD [address] [place] [address] PCP - General Internal Medicine 05/19/16 documented as of this encounter
--- OUTSIDE RECORDS SUMMARY | 2023-10-12 02:43 | XMS_ITS | Encounter Summary ---
Author Organization [facility] [place] [address] Care Team Providers Care Director Speech Language Name Role Phone Celio Sanders MD Primary Care Provider [phone] Encounter Details Date Type Department Care Team (Latest Contact Info) Description 10/15/2021 1:00 PM EDT TH Visit (TeleHealth) Hematology [place] [id number] Remy Barillas MD [facility] [place] [address] Malignant neoplasm of prostate Social History Tobacco [...] as of this encounter Progress Notes * Remy Barillas MD - 10/15/2021 1:00 PM EDT Subjective: Patient ID: Nain Mckeon is 71 y.o. Problem List: 1. Prostate cancer, cT2b, N1 A. Presented with hematuria TRUS prostate biopsies 04/2016 - Adenocarcinoma in 5/12 cores (all on right side), T2b, Wilmar 8 Darlyn-neural invasion present PSA - 47.5 [...] the descending colon, removed with a cold snare. Resected and retrieved. ?- The sigmoid colon, transverse colon, ascending colon and cecum are??normal. ?- The distal rectum and anal verge are normal on retroflexion view. Path A - Descending colon polyp 3mm, excision: - ??Tubular adenoma. F/u recommended in 7 years. 9. 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 This result is consistent with a diagnosis [...] BRCA2, BRIP1, CDH1, CDK4, CDKN2A (p14ARF), CDKN2A ([id number]), CHEK2, CTNNA1, DICER1, EPCAM (EPCAM: Deletion/duplication testing [...] the AXIN2 and CTNNA1 genes, specifically c.1531A>T (p.Prj072Jpg) and c.515A>T (p.Qxc234Zuv), were detected. ? Interpretation: The most significant consequences of carrying a pathogenic variant in BRCA2 are increased risks forbreast cancer and ovarian cancer in women. For men, the most significant consequence is for prostate cancer so this finding is felt to be related to Nain's cancer. Other cancers associated with PCNM2pxw breast cancer in men, pancreatic, and melanoma. [...] a parent who has the mutation to inheritthe normal copy of the gene and not be at increased risk for the cancer running in the family. There is also a 50% chance for each [...] is unable to alert her to her potentialrisk. ?? Based on the family history, it is not clear which side of the family this was likely inherited from. Unfortunately Nain does not have contact with his extended family so is unable to share this information with them. ?? Nain's sons live in [place] and [place]. They can go to the website of the National Society of Genetic Counselors at www.nsgc.org in order to find a counselor in their area who can help themto arrange for genetic testing. ?? It is important to also be aware that a rare autosomal recessive, childhood- onset cancer syndrome, called Fanconi Anemia, can occur if both partners are carriers of mutations in the BRCA2 gene. For any individuals who test positive who are considering having [...] and CTNNA1 VUS identified in Nain are cancer-associatedmutations or a benign changes in the gene with no increased cancer risks. [employer] is continually collecting and analyzing their data, in an effort to reclassify these variants as either cancer-causing mutations or benign changes. It is important to remember that a vast majority of variants of uncert ain significance are normal, benign changes in the gene. We will be contacted by the laboratory, inthe future, if a reclassification is made and we would then notify Nain. It is important that Nain's phone number and mailing address stay updated in the [facility] system, in order for us to reach him in the future, should an amended report [...] an increased incidence of pancreatic cancer. The two main risk factors, in the general population, for pancreatic cancer are smoking and heavy drinking. Although there is no clear data on the risks of combining smoking and heavy drinking with being a BRCA2 carrier, this test result should be thought of as another good reason, among many others, for Nain not to engage in either activity. Family members, [...] the earliest exocrine pancreatic cancer diagnosis in thefamily. Nain's maternal aunt had pancreatic cancer at age 35. It is not known if she had a BRCA2 mutation. Given this history, Nain meets criteria for screening. His risk for pancreatic cancer is about 3%. Based on this he indicated that he is not currently interested in pursuing screening. Should he desire to discuss this possibility in the future, Dr. Ara Mary, a loom setter fourdrinier at [facility] in [place], is willing to discuss these screening options with Nain. Nain can schedule an appointment with her by reaching her appliance adjuster at [phone]. ?? Prostate Cancer Screening for Nain's sons [...] Periodic colonoscopy screening as recommended by Nain's loom setter fourdrinier. ?? HPI Nain Mckeon is seen in f/u of prostate cancer. This is a telephone encounter. He says he feels great. His energy level is good and he is active. He has started to play pickle ball 3x/week and he walks his dog regularly. His appetite is good and he is eating healthier. He may have lost a little weight because of this. No areas of pain. His mood has been good. He thinks the exercise has been helpful in that regard. His urinary habits are about the same. He has nocturia, 1-2x/night. Soc Hx: , lives in [place], [place]. He goes to [place] from December to June. 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 Diagnosed with prostate cancer in 2017 after presenting with hematuria, found to have an abnormal prostate gland on exam. TRUS prostate bx - adenocarcinoma in 5/12 cores, all on the right. Wilmar score was 8 in two of the [...] 250 mg per day and prednisone. This wasstopped in 08/22 due to an exacerbation of bipolar disease. The PSA was undetectable until 03/2020. It has risen since then to a current value of 0.55 on 10/09/21. For pts treated with androgen deprivation and radiation, [...] 1000 mg/day. The value from 10/05 is 38.Will have him continue the same dose. I discussed his case with Dr. Vazquez. He and Julianna Ramos APRN are happy to continue to follow him.I will arrange for him to see Julianna [...] list above. Although patients with BRCA mutations maybenefit from therapy with PARP inhibitors, there is no role in the absence of metastatic disease, as in the current setting (the indication is in castrate resistant metastatic disease). Genetic testing would be recommended for his sons and sister and he has discussed this with them. For him personally, it is recommended that a mammogram be considered. Periodic skin exams and colonoscopy were alsorecommended. He had a colonoscopy done in 05/2021. [...] feels more comfortable with that. I spoke withMr. Mckeon and he would like to do it in 5 years. I will defer referral for this to his PCP or other involved provider as that time gets closer. documented in this encounter Plan of Treatment Upcoming Encounters Date Type Department Care Team (Late st Contact Info) Description 10/24/2023 1:30 PM EDT Office Visit Hematology/Oncology at [address] [phone] Bisi Cheng APRN [facility] [place] [address] documented as of this encounter Visit Diagnoses Diagnosis Malignant neoplasm of prostate documented in this encounter Care Teams Director Speech Language Relationship Specialty Start Date End Date Celio Sanders MD [address] [place] [address] PCP - General Internal Medicine 05/19/16 documented as of this encounter
--- OUTSIDE RECORDS SUMMARY | 2023-10-12 02:43 | XMS_ITS | Encounter Summary ---
[place] [address] Care Team Providers Care Imaging Nurse Name Role Phone Celio Sanders MD Primary Care Provider Encounter Details Date Type Department Care Team (Latest Contact Info) Description 05/11/2022 Travel Social History Tobacco Use Types Packs/Day [...] PM EDT Office Visit Hematology/Oncology at [address] [phone] Bisi Cheng APRN [facility] [place] [address] documented as of this encounter Visit Diagnoses Not on filedocumented in this encounter Care Teams Imaging Nurse Relationship Specialty Start Date End Date Celio Sanders MD [address] [place], [place] [address] PCP - General Internal Medicine 05/19/16 documented as of this encounter
--- OUTSIDE RECORDS SUMMARY | 2023-10-12 02:43 | XMS_ITS | Encounter Summary ---
[place] [address] Care Team Providers Care Medical Research Scientist Name Role Phone Celio Sanders MD Primary Care Provider Encounter Details Date Type Department Care Team (Latest Contact Info) Description 12/30/2022 Travel Social History Tobacco Use Types Packs/Day [...] 1:30 PM EDT Office Visit Hematology/Oncology at [address] [phone] Bisi Cheng APRN [facility] [place] [address] documented as of this encounter Visit Diagnoses Not on filedocumented in this encounter Care Teams Medical Research Scientist Relationship Specialty Start Date End Date Celio Sanders MD [address] [place], [place] [address] PCP - General Internal Medicine 05/19/16 documented as of this encounter
--- OUTSIDE RECORDS SUMMARY | 2023-10-12 02:43 | XMS_ITS | Encounter Summary ---
[place] [address] Care Team Providers Care Reception Agent Name Role Phone Celio Sanders MD Primary Care Provider Reason for Referral * Consultation (Routine) - Closed Specialty Diagnoses / Procedures Referred By Tess t Referred To Contact Hematology and Oncology Diagnoses Malignant neoplasm of prostate Rama Ramos APRN [facility] [place] [address] [facility] [address] [place] [address] Referral ID Status Reason Start Date Expiration Date V isits Requested Visits Authorized [id number] Closed Assume Subset of Care 10/12/2022 10/12/2023 1 1 * Diagnostic Test (Routine) - Closed Specialty Diagnoses / Procedures Referred By Contac t Referred To Contact Radiology Diagnoses Malignant neoplasm of prostate Procedures NM PET CT PSMA Prostate (Illuccix) Rama Ramos OPTOMETRIST OWNER [facility] [place] [address] [facility] [place] [address] Referral ID Status Reason Start Date Expiration Date V isits Requested Visits Authorized [id number] Closed Specialty Service Requested 10/12/2022 04/14/2024 1 2 Encounter Details Date Type Department Care Team (Late st Contact Info) Description 10/12/2022 9:30 AM EDT Office Visit Radiation Oncology at [address] [phone] Rama Ramos APRN [facility] [place] [address] Malignant neoplasm of prostate (Primary Dx) Social History Tobacco Use Types [...] Sign Reading Time Taken Comments Blood Pressure 142/88 10/12/2022 9:24 AM EDT Pulse 84 10/12/2022 9:24 AM EDT Temperature 36.6 ??C (97.9 ??F) 10/12/2022 9:24 AM ED T Respiratory Rate 18 10/12/2022 9:24 AM EDT Oxygen Saturation 98% 10/12/2022 9:24 AM EDT Inhaled Oxygen Concentration - - Weight 81.1 kg (178 lb 12.8 oz) 10/12/2022 9:24 AM EDT Height 160 cm (5' 2.99) 10/12/2022 9:24 AM EDT Body Mass Index 31.68 10/12/2022 9:24 AM EDT documented in this encounter Progress Notes * Rama Ramos APRN - 10/12/2022 9:30 AM EDTSummary: 71 year old M dx high risk prostate cancer. Compl RT 10/27/16. Compl 3 years ADT w/ final dose 05/2019 [facility] [place] [address] Phone: RADIATION ONCOLOGY FOLLOW UP NOTE Patient Nain Mckeon 1950 PCP: Celio Sanders MD Urologist: Radiation oncologist: Dr. Ronnie Vazquez Chief Complaint: follow up/labs for prostate cancer Time since completed RT:10/27/16 ADT:3 years of Lupron or eligard with last dose 05/04/2019 Tried and stopped abiraterone /pred d/t not patrick pred with bipolar d.o. This was started in [place] and ended when he returned to [place]. Current treatment:Surveillance HPI: Per Dr Ronnie Vazquez 10/21/16 PATIENT IDENTIFICATION NAME: Nain Mckeon DATE OF : 1950 ONCOLOGIC SUMMARY: Nain Mckeon is a 66 y.o. 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 CONCURRENT THERAPY: LT-ADT Lupron #1: 05/31/16 (22.5mg) Lupron #2: 08/26/16 (22.5mg) (Noted last dose of Lupron given 05/04/19 completing 3 years coverage) INTENT OF THERAPY: Definitive (Curative) RADIATION TREATMENT [...] (up from 1x/nt at baseline). Denies other LUTS or dysuria. GI - No diarrhea or bleeding. Pain: Pain score today is 0/10. Per Dr Barillas HPI (partial 10/15/21) Problem List: 1. Prostate cancer, cT2b, N1 [...] right iliac chain LN no longer seen). Pt was in [place] for a period of 5 months and he received a 22.5mg leuprolide there on 05/15/2018. The facility [facility] and Provider Sp Coreas MD. This is in scanned documents. Interim HPI: No further medical issues in the interval. He has been drinking more and hydrating because of summer and exercising. Because of drinking more may be up more [facility], 2-3x. L wrist fx around 2021, plate, screws. He fell playing pickle ball. R sided tennis elbow. Cataract surg done June 28 and first was June 10 both without problems. Walks a lot 3 [address]a [place]. July 22 can go back. Is going to ride bike with as they have just gotten them tuned up. Review of Symptoms: I reviewed the IPSS/LINA/Epic-Cp survey results from today 10/12/2022 9:23 AM EDT - Filed by Patient Urinary function problem Very small problem Urinary control Total control # of pads used per day None Urinary dripping/leakage problem No problem 5. How big a problem, if any, has each of the following been for you? Pain or burning with urination No problem Weak urine stream/incomplete bladder emptying Very small problem Need to urinate frequently Small problem 6. How big a problem, if any, has each of the following been for you? Rectal pain or urgency of bowel movements No problem Increased frequency of your bowel movements No problem Overall problems with your bowel movements No problem Bloody stools No problem Ability to reach orgasm Good Quality of your erections Firm enough for intercourse Problem with sexual function or lack of it No problem 10. How big a problem, if any, has each of the following been for you? Hot flashes or breast tenderness/enlargement No problem Feeling depressed No problem Lack of energy No problem Urinary Incontinence Symptom Score (range: 0 - 12) 0 Urinary Irritation/Obstructive Symptom Score (range: 0 - 12) 3 Bowel Symptom Score (range: 0 - 16) 0 Sexual Symptoms Score (range: 0 - 12) 1 Vitality/Hormonal Symptom Score (range: 0 - 12) 0 Overall Prostate Cancer QOL Score (range: 0 - 60) 4 Bloody Stool Score (range: 0 - 4) 0 Q - Prostate Followup Survey Question 10/12/2022 9:29 AM EDT - Filed by Patient Reason for visit Follow up on existing problem(s) Incomplete emptying Less than 1 time in 5 Frequency Less than 1 time in 5 Intermittency Less than 1 time in 5 Urgency Less than 1 time in 5 Weak Stream Less than 1 time in 5 Straining Less than 1 time in 5 Nocturia 2 times Quality of life Pleased Total IPSS Score (range: 0 - 35) 8 (Moderate LUTS) Confidence, level - past 6 months Moderate Penetration - past 6 months No sexual activity Penetration, maintain - past 6 months Did not attempt intercourse Erection, maintain - past 6 months Did not attempt intercourse Sexual satisfaction - past 6 months Did not attempt intercourse Sexual Health in Men (range: 1 - 21) 3 (Severe ED) Patient concerns for today's visit: General:feels fine in general, no health issues that have cropped up save for fx wrist L and surgical repair. This resolved. PT for tennis elbow and then wrist for fx. Has some tennis elbow r Fatigue:no problems with energy level Weight/appetite/diet: eating healthy, no changes to diet Respiratory:no resp infections GI:no n/v/d/c, no blood in stool, will want follow up colo sooner than 7 years out. 5 years preferable to him. :minimal to no issues with urinary sx. No hematuria Endocrine: no hot flashes Sexual health:Says it is ok and present today. Muscle skeletal:he fx his L wrist and had surgery with plate. He is right handed. He was playing pickleball. Bone health: taking Vit D/ Calcium Neuro:no changes, on lamotrigine for mood stabilization. Mood:fairly good. 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 Smoking:none Alcohol:none Support/ social relationships: Advanced directives not discussed at this time Financial/transportation concerns: Health maintenance:is seeing Dr Curran in September. Family history/genetic testing: Per Dr Nixon notes pt has BRCA mutation which would allow for PARP inhibitor use if needed in future Performance Status: KPS Score ECOG Grade Definition xx 90-100 0 Fully active, able to carry [...] selfcare; totally confined to bed or chair Physical Examination: Body mass index is 31.68 kg/m??. BP 142/88 (Patient Position: Sitting) Pulse 84 Temp 36.6 ??C (97.9 ??F) (Temporal) Resp 18 Ht 160 cm (5' 2.99) Wt 81.1 kg (178 lb 12.8 oz) Constitutional: seen in clinic, no distress HENT: normocephalic, anicteric Cardiovascular: Rate and Rhythm: Normal rate and regular rhythm. Pulmonary: Effort: Pulmonary effort is normal. No cough, viral sx , congestion Genitourinary: Rectum: DEWEY today and prostate is palpable, no nodularity that I could appreciate. No stool on glove. Last urology appt with DEWEY and smooth prostate report. Musculoskeletal: Normal range of motion. General: No swelling or deformity. Comments: Ambulates without assistance Skin: General: Skin is warm and dry. Neurological: General: No focal deficit present. Mental Status: alert and oriented to person, place, and time. Gait: Gait normal. Psychiatric: Mood and Affect: Mood normal. Behavior: Behavior normal. Thought Content: Thought content normal. Judgment: Judgment normal. New Labs Reviewed this visit: Date PSA Test Notes 10/12/22 1.7 71 07/01/22 1.1 46 240-950ng/dl test ref range 05/03/22 0.98 Hgb 13.1/ 01/11/22 0.56 58 [facility] 07/07/21 0.26 04/10/21 0.19 [facility] Patient Vitals for the past 24 hrs: Temp Pulse Resp BP SpO2 10/12/22 0924 36.6 ??C (97.9 ??F) 84 18 142/88 98 % Assessment: 72 y.o. presenting for follow up/ lab for prostate cancer. Not currently on abiraterone/pred as could not tolerate the prednisone part with onset of manic sx. He had this in [place] during a visitthere but only on x 1 month and could not tolerate so stopped as soon as return to [place]. Monitoring of PSA continues. No urinary sx of concern and seeing urology last summer, had a smooth prostate. He started to have doubling time of 6 months in January 2022 with PSA 0.56 and then effectively almost doubled in 3 months with and PSA rise to 0.98. June 2022 PSA 1.1. Now PSA up further 1.7. He has no new clinical sx. We did discuss the need to do a PSMA PET scan refer for recommendations to medical oncology. Pt and in agreement with this plan. He previously did completed a 3 year course of ADT with final dose 3 years ago. His testosterone has never come up toward a normal level. He fx his wrist and had surgery with plates. This has healed well w/o residual pain. DXA scan has been ordered. He is on Cholecalciferol D3. Medical Decision Making/Recommendations/Plan: # prostate cancer: reviewed PSA results. No concerning reported symptoms or physical examination findings today # effects of EBRT: Acute: LUTS (lower urinary tract symptoms) Bowel dysfunction Sexual health/Erectile Dysfunction Fatigue Mood changes Late: We reviewed potential late effects of radiation that require medical evaluation including : Changes in urinary flow/difficulty passing urine (scarring from radiation) Blood in urine (may be infection, inflammation bladder wall (cystitis), formation of telangiectasia(small, thin blood vessels that are dilated or broken, near the surface of the bladder and may bleed) or bladder/genitourinary cancer Blood in bowel movements (stools)- maybe from hemorrhoids, telangiectasia from radiation, colorectal cancer Symptoms that you should bring to the attention of your provider: Difficulty or changes in your urine flow Blood in your urine or stool # ADT:Has had lupron and eligard in past (eligard in [place] when he was there for a period of 5months) x 3 years. Abiraterone and pred started in [place] he states and tried but did not tolerate the prednisone as he experienced manic sx so needed to stop this combo when he returned to [place]. Regino not see dates on this. I do not think he has tried enzalutamide. 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 There is also an added risk of CV dz in use of antipsychotics which pt requires for management of bipolar disorder. # survivorship/lifestyle/wellness: Genetic Risk Evaluation: Body weight/nutrition: Exercise: swims 3-4 days a week. Plays pickle ball. He fx wrist a couple weeks ago. Will be seeing someone to address. Bone health: fx wrist. Smoking: no smoking Alcohol: none Sleep:sleeping very well now. Annual exam with PCP: PCP (Now Celio Sanders MD) Up to date on vaccinations: covid vax done, boostered. Flu vax given this season. Colorectal screening: Per Dr Barillas note: He had a colonoscopy done in 05/2021. One polyp was removed and was a tubular adenoma. F/u was recommended in 7 years. He is concerned about waiting this long. Dr. Bray felt 7 years is an appropriate interval but is willing to do the colonoscopy in 5 years if Mr. Mckeon feels more comfortable with that. I spoke with Mr. Mckeon and he would like to do it in [address] Barillas will defer referralfor this to his PCP or other involved provider as that time gets closer. May 2026. Lung cancer screening:n/a # follow up: Per NCCN guidelines, PSA and history/physical every 6-12 months X 5 years, then annually. Annual DEWEY (unless PSA undetectable or prostatectomy). PSA may be checked more frequently depending on risk level or other patient specific factors. PSMA PET scan and referral to medical oncology for review and recommendations. Nain Mckeon had the opportunity to ask questions and I answered them to the best of my knowledge.Nain Mckeon agreed to contact radiation oncology in between visits if he has any questions/concerns or new symptoms in regards to the radiation therapy/prostate cancer Rama Ramos MSN, OPTOMETRIST OWNER, [employer] ROLL [employer] Nurse Practitioner Radiation Oncology documented in this encounter Plan of Treatment Upcoming Encounters Date Type Department Care Team (Late st Contact Info) Description 10/24/2023 1:30 PM EDT Office Visit Hematology/Oncology at [address] [phone] Bisi Cheng APRN [facility] [place] [address] Scheduled Referrals Name Type Priority Associated Diagnoses Order Schedule Referral to Hematology and Oncology Outpatient Referral Routine Malignant neoplasm of prostate Ordered: 10/12/2022 documented as of this encounter Results * NM PET CT PSMA Prostate (Illuccix) (11/09/2022 3:01 PM EDT) Anatomical Region Laterality Modality Positron Emissio n Tomography (PET) Impressions 11/09/2022 4:44 PM EDT 1. ??Increased tracer uptake in the prostatic gland apex consistent with recurrent prostate malignancy. 2. ??No regional daja or metastatic disease. Thank you for referring this patient to [facility]. I have personally reviewed the image(s) and the resident's interpretation and agree with the findings, Matthew Price MD at 11/09/2022 4:44 PM Thank you for letting us participate in the care of this patient. ??If you are a health care provider and have any questions regarding this report, please contact the number below. ??For patients who have questions please contact the health in home caregiver that requested your imaging first. ? Electronically signed by: Matthew Price MD, [facility] ([phone]), at 11/09/2022 4:44 PM Narrative 11/09/2022 4:44 PM EDT EXAMINATION: NM PET CT PSMA PROSTATE (ILLUCCIX) CLINICAL HISTORY: Prostate cancer, restaging; PSA elevating with doubling and nearing 2 points above lowest. Surveillance, not on active treatment. TECHNIQUE: Following IV injection of Ga 68 PSMA-11 (Illuccix) and a standard uptake of approximately 60 minutes, a noncontrast CT scan followed by a PET scan were acquired from the top of the head to mid thighs. The noncontrast CT was used for anatomic localization and photon attenuation correction of the PET scan. Ga 68 PSMA-11 (Illuccix) Dose: 7.9 mCi COMPARISON: CT abdomen and pelvis 04/27/2019 FINDINGS: HEAD/NECK: Normal activity in all soft tissue regions of the neck and visualized lower head. Physiologic activity present in the lacrimal and salivary glands. No adenopathy. CHEST: Normal activity in all soft tissue regions. No adenopathy or suspicious lung nodule. Aortic and coronary calcifications. ABDOMEN/PELVIS: Increased tracer uptake at the apex of the prostatic gland. Physiologic activity is present in the liver, spleen, collecting system, and GI tract. No adenopathy. Small metallic focus adjacent to the inferior pole of the right lobe of the liver is unchanged. Prostatic fiducials are present. SKELETON/EXTREMITIES: Normal activity in all regions of the axial and visualized appendicular skeleton. Procedure Note Matthew Price MD - 11/09/2022 EXAMINATION: NM PET CT PSMA PROSTATE (ILLUCCIX) CLINICAL HISTORY: Prostate cancer, restaging; PSA elevating with doublingand nearing 2 points above lowest. Surveillance, not on active treatment. TECHNIQUE: Following IV injection of Ga 68 PSMA-11 (Illuccix) and astandard uptake of approximately 60 minutes, a noncontrast CT scan followed by aPET scan were acquired from the top of the head to mid thighs. The noncontrast CTwas used for anatomic localization and photon attenuation correction of thePET scan. Ga 68 PSMA-11 (Illuccix) Dose: 7.9 mCi COMPARISON: CT abdomen and pelvis 04/27/2019 FINDINGS: HEAD/NECK: Normal activity in all soft tissue regions of the neck and visualizedlower head. Physiologic activity present in the lacrimal and salivary glands. No adenopathy. CHEST: Normal activity in all soft tissue regions. No adenopathy or suspicious lung nodule. Aortic and coronary calcifications. ABDOMEN/PELVIS: Increased tracer uptake at the apex of the prostatic gland. Physiologic activity is present in the liver, spleen, collecting system,and GI tract. No adenopathy. Small metallic focus adjacent to the inferior pole of the right lobe ofthe liver is unchanged. Prostatic fiducials are present. SKELETON/EXTREMITIES: Normal activity in all regions of the axial and visualized appendicular skeleton. IMPRESSION 1. Increased tracer uptake in the prostatic gland apex consistent with recurrent prostate malignancy. 2. No regional daja or metastatic disease. Thank you for referring this patient to [facility]. I have personally reviewed the image(s) and the resident's interpretationand agree with the findings, Matthew Price MD at 11/09/2022 4:44 PM Thank you for letting us participate in the care of this patient. If youare a health care provider and have any questions regarding this report,please contact the number below. For patients who have questions please contactthe health in home caregiver that requested your imaging first. Rama Ramos APRN IMG PET ORDERABLES documented in this encounter Visit Diagnoses Diagnosis Malignant neoplasm of prostate- Primary Malignant neoplasm of prostate documented in this encounter Care Teams Reception Agent Relationship Specialty Start Date End Date Celio Sanders MD [address] [place] [id number] PCP - General Internal Medicine 05/19/16 documented as of this encounter
--- OUTSIDE RECORDS SUMMARY | 2023-10-12 02:43 | XMS_ITS | Encounter Summary ---
Author Organization [facility] [address] Care Team Providers Care Rubber Tester Name Role Phone Celio Sanders MD Primary Care Provider [phone] Encounter Details Date Type Department Care Team (Late st Contact Info) Description 05/12/2021 2:23 PM EST Anesthesia Event [place] [address] Celio Alvarado DO [facility] DR AN[place]ES[place] [address] Unruly Noriega MD [facility] [place] [address] Anesthesia Record Procedure Summary Procedure Name Responsible Anesthesiologist Anesthesia Start Time Anesthesia Stop Time COLONOSCOPY, DIAGNOSTIC (WRVU 3.26) (Trunk) Celio Alvarado DO 05/12/21 1423 05/12/21 1509 Events Date Time Event Comment 05/12/2021 1411 1423 AN Verify 1423 Start 1423 An Start Data 1425 An Induction 1427 Anesthesia Ready 1509 an stop data 1509 Recovery or ICU Handoff Renu ent care was transferred to the destination unit staff after review of the patient's medical history, current anesthetic/surgical status and plan, according to the Provider Handoff Checklist. 1509 Stop Meds Name Total IV Lidocaine 50 mg Propofol 100 mg Propofol INF 519.23 mg lactated ringers infusion 400 mL * Agents Name O2 Auxiliary Flowmeter 1 * Blood No blood administrations on file. Lines, Drains, and Airways Type Details Placement Removal (RETIRED) Peripheral IV Line - Single Lumen 05/12/21; 1400; median cubital vein (antecubital fossa), right; [id number] catheter system; Anatomical Landmarks; US Not Used; 20 gauge; Garrison Helms RN; appears comfortable, tolerated well; 05/12/21; 1559 05/12/21 1400 by Sam Helms RN 05/12/21 1559 by Misty Sinclair RN documented in this encounter Social History Tobacco [...] documented as of this encounter OR Notes * Anesthesia Postprocedure Evaluation - Celio Alvarado DO - 05/12/2021 3:47 PM EST Department of Anesthesiology Post-procedure Note Patient: Nain Mckeon Procedure Summary Date: 05/12/21 Room / Location: [facility] ENDO 1 / [facility] ENDOSCOPY Anesthesia Start: 1423 Anesthesia Stop: 1509 Procedure: COLONOSCOPY, DIAGNOSTIC (N/A Trunk) Diagnosis: (BRCA gene mutation positive) Surgeons: Nicky Bray MD Responsible Provider: Celio Alvarado DO Anesthesia Type: MAC ASA Status: 2 All Anesthesia Providers: Anesthesiologist: Celio Alvarado DO WHIPPER: Tarun Brambila CRNA Vitals Value Taken Time BP 116/60 05/12/21 1530 Temp Pulse Resp SpO2 100 % 05/12/21 1530 Pain Level Patient Location: PACU/[facility] Level of Consciousness: Conscious but Sleepy Pain Management: Satisfactory Analgesia PONV: None Cardiovascular Status: At Baseline and Hemodynamically Stable Respiratory Status: At Baseline and Room Air Postoperative Fluid Status: Intravascular EUvolemia Possible Anesthetic Complications: NONE apparent at time of evaluation Final Primary Anesthesia Type: MAC (The anesthetic type performed was the same as planned.) Comments: * Anesthesia Preprocedure Evaluation - Unruly Noriega MD [...] and verbalized understanding. Explained that anesthesia at [facility] is commonly delivered in a team care model fashion, with either resident or CRNAs supervised by an anesthesiologist, who frequently supervises one or more other anesthesia deliveries, provide care. -- Unruly Noriega MD, MS Informed Consent: Anesthetic plan and risks discussed with patient. Plan discussed with WHIPPER. Anesthesia Screening documented in this encounter Plan of Treatment Upcoming Encounters Date Type Department Care Team (Late st Contact Info) Description 10/24/2023 1:30 PM EDT Office Visit Hematology/Oncology at [address] [phone] Bisi Cheng APRN [facility] [place] [address] documented as of this encounter Visit Diagnoses Not on filedocumented in this encounter Administered Medications Inactive Administered Medications - up to 3 most recent administrations Medication Order MAR Action Action Date Dose Rate Site lactated ringers infusion 100 mL/hr, Intravenous, CONTINUOUS, Starting on Tue05/12/21 at 1400, Until Tue05/12/21 at 1535, Endoscopy (Day of Procedure) Restarted 05/12/2021 2:23 PM EST New Bag 05/12/2021 2:00 PM EST 100 mL/hr 100 mL/hr lidocaine (pf) (Xylocaine) (20 mg/mL) 2% injection syringe Intravenous, PRN, Starting on Tue05/12/21 at 1425, Until Tu05/12/21 at 1509, Anesthesia Intra-op, Routine Given 05/12/2021 2:25 PM EST 50 mg propofoL (Diprivan) (10 mg/mL) infusion Intravenous, CONTINUOUS PRN, Starting on Tue05/12/21 at 1425, Until 05/12/21 at 1509, Anesthesia Intra-op, Routine New Bag 05/12/2021 2:25 PM EST 150 mcg/kg/min 72.45 mL/hr propofoL (Diprivan) 10 mg/mL bolus injection (Anesthesia) Intravenous, PRN, Starting on e 05/12/21 at 1425, Until Tu05/12/21 at 1509, Anesthesia Intra-op Given 05/12/2021 2:25 PM EST 100 mg documented in this encounter Care Teams Rubber Tester Relationship Specialty Start Date End Date Celio Sanders MD [address] [place] [address] PCP - General Internal Medicine 05/19/16 documented as of this encounter
--- OUTSIDE RECORDS SUMMARY | 2023-10-12 02:43 | XMS_ITS | Encounter Summary ---
Author Organization [facility] Address [facility] [place] [address] Care Team Providers Care Fitness Centre Manager Name Role Phone Celio Sanders MD Primary Care Provider [phone] Encounter Details Date Type Department Care Team (Latest Contact Info) Description 05/12/2021 1:23 PM EST - 05/12/2021 4:00 PM EST Hospital En[place] [phone] Nicky Bray MD [facility] [place] [address] Discharge Disposition: Home Social History Tobacco Use [...] Refills Start Date End Date cholecalciferol, vitamin D3, (VITAMIN D3 ORAL) Take [...] ORAL) Take 75 mcg by mouth daily. clonazePAM (KlonoPIN) 1 mg Tablet 0.5 mg daily. 06/15/2020 07/08/2022 melatonin 5 mg Tablet TAKE 1 AND 1/2 TABLETS BY MOUTH AT BEDTIME 06/15/2020 02/04/2022 FluZONE High-Dose 2019-20, PF, 180 mcg/0.5 mL Syringe INJECT AT PHARMACY 0 01/22/201903/2021 documented as of this encounter H&P Notes * Nicky Bray MD - 05/12/2021 2:18 PM [...] staging category pN1: metastasis in regional nodes C61, C77.5 ??? Bipolar II disorder F31.81 ??? Hypothyroidism [...] 1:30 PM EDT Office Visit Hematology/Oncology at [address] [phone] Bisi Cheng APRN [facility] [place] [address] documented as of this encounter Procedures Procedure Name Priority Date/Time Associated Diagnosis Comments SPECIMEN TO PATHOLOGY Routine 05/12/2021 3:10 PM EST SURGICAL PATHOLOGY REPORT Routine 05/12/2021 2:59 PM EST Colonoscopy, Diagnostic ([id number]) 05/12/2021 2:31 PM EST BRCA gene mutation positive COLONOSCOPY Routine 05/12/2021 2:18 PM EST documented in this encounter Results * Specimen to Pathology (05/12/2021 3:10 PM EST) AP Specimen 05/12/2021 3:10 PM EST 05/12/2021 3:10 PM EST Narrative [facility] - 05/12/2021 3:10 PM EST Specimen requisition ordered. ??Separate Pathology report to follow Nicky Bray MD PATHOLOGY/CYTOLOGY O RDERABLES [facility] [place] [address] * Surgical Pathology Report (05/12/2021 2:59 PM EST) Final Diagnosis [id number] ? Location: 4T; EA12; A The signing pathologist has (i) examined the relevant preparation(s) for the specimen(s) and (ii) rendered or confirmed the diagnosis(es). . ?Surgical Pathology DIAGNOSIS A - Descending colon polyp 3mm, excision: - ??Tubular adenoma. CR-PX Electronically signed by: ?Eduard Martinez MD Verified: ??05/14/2021 15:49 ??Pathologist Performed at: ??-[facility] Dept. of Pathology, [place], [place] SPECIMEN(S) SUBMITTED A - Descending colon polyp 3mm, excision (1) CLINICAL INFORMATION 70 years old male/colonoscop y/mother with colon cancer over the age 60, no prior history of polyps SPECIMEN PROCESSING A - Labeled/Fixativ e: Descending colon polyp, 3 mm, formalin. Quantity/Size: Single, 0.3 cm. Tissue Description: Polypoid, rosales-pink soft tissue admixed with bowel content. Sections/Proces sing: Inked, bisected and entirely submitted in 1 cassette labeled A1. ??pps 05/14/2021 3:49 PM EST [facility] GI Biopsy 05/12/2021 2:59 PM EST 05/12/2021 2:59 PM EST Nicky Bray MD PATHOLOGY/CYTOLOGY O STACEYERALUIS DANIEL [facility] [place] [address] * COLONOSCOPY (05/12/2021 2:18 PM EST) COLONOSCOPY [facility] Endoscopy Procedure Date: 05/12/2021 2:18 PM ? Patient Name: Nain Mckeon ? Date of : 1950 ? Age: 70 ? Order #: [id number] ? Instrument Name: [id number] ? Procedure: ? Colonoscopy Indications: ? Screening patient at increased risk: ? Family history of 1st-degree relative ? with colorectal cancer at age 60 ? years (or older) Providers: ? Nicky Bray MD, Sav Platt ? Ivon Angel, Hedis Manager Referring MD: ?Celio Sanders MD Medicines: ? [...] preparation was ? evaluated using the BBPS ([place] ? Bowel Preparation Scale) with scores ? [...] Procedure Code(s): ?? --- Professional --- ? 11340, Colonoscopy, flexible; with ? removal of tumor(s), polyp(s), or ? other lesion(s) by snare technique CPT copyright 2019 [employer]. All rights reserved. The codes documented in this report are preliminary and upon vmware administrator review may be revised to meet current compliance requirements. Attending Participation: ? I personally performed the entire procedure. ? Nicky Bray MD _ Nicky Bray MD 05/12/2021 3:10:50 PM This report has been signed electronically. Number of Addenda: 0 Note Initiated On: 05/12/2021 2:18 PM PROVATION 05/12/2021 2:18 PM EST Celio Sanders MD GENERAL SURGICAL ORD ERABLES [employer]OVATION documented in this encounter Visit Diagnoses Not on filedocumented in this encounter Administered Medications Inactive Administered Medications - up to 3 most recent administrations Medication Order MAR Action Action Date Dose Rate Site lactated ringers infusion 100 mL/hr, Intravenous, CONTINUOUS, Starting on 05/12/21 at 1400, Until 05/12/21 at 1535, Endoscopy (Day of Procedure) Restarted 05/12/2021 2:23 PM EST New Bag 05/12/2021 2:00 PM EST 100 mL/hr 100 mL/hr documented in this encounter Active and Recently Administered Medications Times are shown in EST. Continuous Medication Order 05/10/2021 05/11/2021 05/12/2021 lactated ringers infusion (CANCELED) 100 mL/hr, Intravenous, CONTINUOUS, Starting on 05/12/21 at 1400, Until 05/12/21 at 1535, Endoscopy (Day of Procedure) 1400 (New Bag - Prov ider: Sam Helms RN)1422 (Paused - Provider: Tarun Brambila CRNA - Comment: Switch to gravity)1423 (Restarted - Provider: Tarun Brambila CRNA)1508 (Anesthesia Volume Adjustment - Provider: Tarun Brambila CRNA) documented in this encounter Care Teams Fitness Centre Manager Relationship Specialty Start Date End Date Celio Sanders MD [address] [place] [id number] PCP - General Internal Medicine 05/19/16 documented as of this encounter
--- OUTSIDE RECORDS SUMMARY | 2023-10-12 02:43 | XMS_ITS | Encounter Summary ---
Author Organization [facility] Address [facility] [address] [place] [address] Care Team Providers Care Relocation Specialist Name Role Phone Celio Sanders MD Primary Care Provider [phone] Encounter Details Date Type Department Care Team (Late st Contact Info) Description 10/20/2022 11:20 AM EDT Office Visit Dermatology at [facility] [address] [place] [address] Ernst Rinaldi MD [facility] [place] [address] Actinic keratoses; Seborrheic keratoses; Multiple benign nevi; Lentigines; Gee angioma Social History Tobacco Use Types Packs/Day Years [...] as of this encounter Progress Notes * Ernst Rinaldi MD - 10/20/2022 11:20 AM EDT Images from the original note [...] of Present Illness: Nain Mckeon is a 72 y.o. Patient returns to clinic today for a full skin exam. Patient reports the following: - No new, changing, or symptomatic lesions of concern. Last visit at Dermatology: 10/06/2021 Last visit with this provider: 10/06/2021 Medications: Reviewed in eD-H Allergies: Reviewed in eD-H Skin Examination: Full skin examination: Patient asked to undress to their comfort level. Verbalized that the provider???s preference is that the patient remove all clothing and that the provider will not examine areas patient elects to keep covered. Patient elects to keep underwear on and have the following examined: scalp, hair, face, ears, neck, chest, axillae, abdomen, back, and upper and lower extremities. Genitalia and buttocks were not examined. Assessment/Plan: #. Actinic Keratoses - Ill-defined gritty papules on the left earlobe x1, left cheek x1, left baptism x1, right forearm x1, right arm x1, left forearm x2, left arm x3. - Explained premalignant potential of these lesions. - Briefly discussed 5-FU as an alternative treatment option, hand out provided to patient. - Discussed treatment with cryotherapy. Patient elects to proceed with cryotherapy today. - Instructed patient to return to clinic for re-evaluation if lesion(s) does not resolve as expected with this treatment. Procedure: Destruction of lesion(s) with cryotherapy (LN2). Location(s): As noted above. Number: 10 Discussed procedure and expectations, including risks and benefits. Verbal consent obtained. Treated with LN2. There were no complications; Patient tolerated the procedure well. Post-procedure expectations and wound care reviewed. #. Seborrheic Keratoses - Stuck on, [...] benign nature of lesions and provided reassurance. Willcontinue to monitor. #. Gee Angiomas - Multiple bright red, well-demarcated papules on the trunk and extremities. - Discussed benign nature of lesions and provided reassurance. No treatment necessary at this time. Other: Sun protection discussed (protective clothing and SPF30+ broad-spectrum sunscreen) RTC: 1 year for FSE []Note routed to secretary receptionist [x]Recall placed in scheduling system []Appointment scheduled at checkout Scribe attestation: Osmani Glez has performed the documentation for this encounter in the presence of and acting as a scribe for Ernst Rinaldi MD. I performed the above scribed service and agree with the accuracy of the documentation in this encounter. Reviewed and signed by: Ernst Rinaldi MD Dermatology [facility] Patient seen and evaluated with staff calculation reviewer: Gaye Hicks MD Dermatology [facility] * Gaye Hicks MD - 10/20/2022 11:20 AM EDT I directly supervised Dr. Rinaldi during this office visit. Dr. Rinaldi presented the history and physical exam to me. I, then, saw and examined this patient with Dr. Rinaldi. We reviewed the history and pertinent details and I confirmed the physical findings. I agree with the details of the history and physical exam as documented in Dr. Rinaldi's note. GAYE HICKS MD Staff Physician documented in this encounter Plan of Treatment Upcoming Encounters Date Type Department Care Team (Late st Contact Info) Description 10/24/2023 1:30 PM EDT Office Visit Hematology/Oncology at [address] [phone] Bisi Cheng APRN [facility] [place] [address] documented as of this encounter Visit Diagnoses Diagnosis Actinic keratoses Actinic keratosis Seborrheic keratoses Multiple benign nevi Benign neoplasm of skin, site unspecified Lentigines Other dyschromia Gee angioma Nevus, non-neoplastic documented in this encounter Care Teams Relocation Specialist Relationship Specialty Start Date End Date Celio Sanders MD [address] [place] [address] PCP - General Internal Medicine 05/19/16 documented as of this encounter
--- OUTSIDE RECORDS SUMMARY | 2023-10-12 02:43 | XMS_ITS | Encounter Summary ---
Author Organization [facility] [place] [address] Care Team Providers Care Digital Communications Manager Name Role Phone Celio Sanders MD Primary Care Provider [phone] Reason for Referral * Consultation (Routine) - Closed Specialty Diagnoses / Procedures Referred By Tess de la rosa Referred To Contact Dermatology Diagnoses BRCA gene mutation positive Prostate cancer metastatic to intrapelvic lymph node Dayana Tompkins, RN [address] [place] [place] [address] [place] [address] [facility] Dermatology [address] [place] [address] Referral ID Status Reason Start Date Expiration Date V isits Requested Visits Authorized [id number] Closed Consult, Test & Treat 07/20/2021 07/20/2022 1 1 Encounter Details Date Type Department Care Team ([facility] Contact Info) Description 07/20/2021 Orders Only Hematology/Oncology at [address] [phone] Dayana Tompkins, RN BRCA gene mutation positive; Prostate cancer metastatic to intrapelvic lymph node [...] Encounters Date Type Department Care Team (Late Contact Info) Description 10/24/2023 1:30 PM EDT Office Visit Hematology/Oncology at [address] [phone] Bisi Cheng APRN [facility] [place] [address] Scheduled Referrals Name Type Priority Associated Diagnoses Orde r Schedule Referral to Dermatology Outpatient Referral Routine BRCA gene mutation positive Prostate cancer metastatic to intrapelvic lymph node Ordered: 07/20/2021 documented as of this encounter Visit Diagnoses Diagnosis BRCA gene mutation positive Prostate cancer metastatic to intrapelvic lymph node documented in this encounter Care Teams Digital Communications Manager Relationship Specialty Start Date End Date Celio Sanders MD [address] [place] [id number] PCP - General Internal Medicine 05/19/16 documented as of this encounter
--- OUTSIDE RECORDS SUMMARY | 2023-10-12 02:43 | XMS_ITS | Encounter Summary ---
Author Organization [facility] Address [facility] [place] [address] Care Team Providers Care Assistant General Manager Name Role Phone Celio Sanders MD Primary Care Provider [phone] Encounter Details Date Type Department Care Team (Late st Contact Info) Description 02/04/2022 3:15 PM EST Office Visit Radiation Oncology at [address] [phone] Rama Ramos APRN [facility] [place] [address] Age-related osteoporosis with current pathological fracture, unspecified hand, subsequent encounter for fracture with routine healing (Primary Dx); Malignant neoplasm of prostate; Age-related osteoporosis without current pathological fracture Social History Tobacco Use Types Packs/Day Years [...] Sign Reading Time Taken Comments Blood Pressure 146/47 02/04/2022 3:13 PM EST Pulse 79 02/04/2022 3:13 PM EST Temperature 36.4 ??C (97.5 ??F) 02/04/2022 3:13 PM ES T Respiratory Rate 18 02/04/2022 3:13 PM EST Oxygen Saturation 99% 02/04/2022 3:13 PM EST Inhaled Oxygen Concentration - - Weight 85.1 kg (187 lb 9.6 oz) 02/04/2022 3:13 P M EST Height - - Body Mass Index 33.24 07/17/2021 3:27 PM EDT documented in this encounter Progress Notes * Rama Ramos, TREE INSPECTOR - 02/04/2022 3:15 PM ESTSummary: 71 year old M dx high risk prostate cancer. Compl RT 10/27/16. Compl 3 years ADT w/ final dose 05/2019 [facility] [place] [address] Phone: RADIATION ONCOLOGY FOLLOW UP NOTE Patient Nain Mckeon 1950 PCP: Celio Sanders MD Urologist: Radiation oncologist: Dr. Ronnie Vazquez Chief Complaint: follow up/labs for prostate cancer Time since completed RT:10/27/16 ADT:3 years of Lupron or eligard with last dose 05/04/2019 Tried and stopped abiraterone /pred d/t not patrick pred with bipolar d.o. This was started in [place] and ended when he returned to [place]. Current treatment:Surveillance HPI: Per Dr Ronnie Vazquez 10/21/16 PATIENT IDENTIFICATION ?? NAME: Nain Mckeon DATE OF : 1950 ?? ONCOLOGIC SUMMARY: Nain Mckeon is a 66 y.o. 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 ?? CONCURRENT THERAPY: LT-ADT Lupron #1: 05/31/16 (22.5mg) Lupron #2: 08/26/16 (22.5mg) (Noted last dose of Lupron given 05/04/19 completing 3 years coverage) ?? INTENT OF THERAPY: Definitive (Curative) ?? RADIATION TREATMENT DETAILS: ?? Initial Treatment Site Pelvis Prescribed Dose 45 Gy in 25 fractions ? Boost Treatment Site 1 Entire SV Prescribed Dose 70.2 Gy in 39 fractions ? Boost Treatment Site 2 Prostate + right obturator LN + Prox SV Prescribed Dose 79.2 Gy in 44 fractions ? Current Dose: 73.8 Gy in 41 fractions ?? INTERVAL HISTORY ?? Subjective: General - Overall doing well. Happy to be nearly done. - Flomax 0.4 mg bid keeping nocturia at 2x / night (up from 1x/nt at baseline). Denies other LUTS or dysuria. GI - No diarrhea or bleeding. ?? Pain: Pain score today is 0/10. Per Dr Barillas HPI (partial 10/15/21) Problem List: 1. Prostate cancer, cT2b, N1 A. Presented with hematuria TRUS prostate biopsies 04/2016 - Adenocarcinoma in 5/12 cores (all on right side), T2b, [place] 8 Darlyn-neural invasion present PSA - 47.5 [...] iliac chain LN no longer seen). ?? Interim HPI: I reviewed the following outside notes: Pt was in [place] for a period of 5 months and he received a 22.5mg leuprolide there on 05/15/2018. The facility [facility] and Provider Sp Coreas MD. This is in scanned documents. Review of Symptoms: I reviewed the IPSS/LINA/Epic-Cp survey results from today 02/04/2022 ??3:13 PM EST - Filed by Patient Urinary function problem Very small problem Urinary control Total control # of pads used per day None Urinary dripping/leakage problem No problem 5. How big a problem, if any, has each of the following been for you? Pain or burning with urination No problem Weak urine stream/incomplete bladder emptying Very small problem Need to urinate frequently Very small problem 6. How big a problem, if any, has each of the following been for you? Rectal pain or urgency of bowel movements No problem Increased frequency of your bowel movements No problem Overall problems with your bowel movements No problem Bloody stools No problem Ability to reach orgasm Fair Quality of your erections Firm enough for intercourse Problem with sexual function or lack of it Very small problem 10. How big a problem, if any, has each of the following been for you? Hot flashes or breast tenderness/enlargement No problem Feeling depressed Very small problem Lack of energy No problem Urinary Incontinence Symptom Score (range: 0 - 12) 0 Urinary Irritation/Obstructive Symptom Score (range: 0 - 12) 2 Bowel Symptom Score (range: 0 - 16) 0 Vitality/Hormonal Symptom Score (range: 0 - 12) 1 Overall Prostate Cancer QOL Score (range: 0 - 60) 3 Q - Prostate Followup Survey Question 02/04/2022 ??3:17 PM EST - Filed by Patient Reason for visit Discuss a new concern Follow up on existing problem(s) Incomplete emptying Less than 1 time in 5 Frequency Less than 1 time in 5 Intermittency Less than 1 time in 5 Urgency Less than 1 time in 5 Weak Stream Less than 1 time in 5 Straining Not at all Nocturia 2 times Quality of life Pleased Total IPSS Score (range: 0 - 35) 7 ( Mild LUTS) Confidence, level - past 6 months [...] no health issues that have cropped up Fatigue:no problems with energy level Weight/appetite/diet: eating healthy, no changes to diet Respiratory:no resp infections GI:no n/v/d/c, no blood in stool :minimal issues with urinary sx. No hematuria Endocrine: no hot flashes Sexual health: Muscle skeletal: Bone health: taking Vit D/ Calcium Neuro: Mood:fairly good. Has hx of and tx for bipolar depression Sleep: sleeping well, Function: Exercise: Smoking:none Alcohol:none Support/ social relationships: Advanced directives not discussed at this time Financial/transportation concerns: Health maintenance: Family history/genetic testing: Performance Status: KPS Score ECOG Grade Definition 90-100 0 Fully active, able to carry [...] chair Physical Examination: Body mass index is 33.24 kg/m??. BP 146/47 (Patient Position: Sitting) Pulse 79 Temp 36.4 ??C (97.5 ??F) (Temporal) Resp 18 Wt 85.1 kg (187 lb 9.6 oz) Constitutional: seen in clinic, no distress HENT: normocephalic, anicteric Cardiovascular: Rate and Rhythm: Normal rate and regular rhythm. Pulmonary: Effort: Pulmonary effort is normal. No cough, viral sx , congestion Genitourinary: Rectum: deferred at this time but will check with return in 3 months. He just had a urology appt this summer with DEWEY and smooth prostate report Musculoskeletal: Normal range of motion. General: No [...] Reviewed this visit: Date PSA Test Notes 01/11/22 0.56 58 [facility] 07/07/21 0.26 04/10/21 0.19 [facility] Patient Vitals for the past 24 hrs: Temp Pulse Resp BP SpO2 02/04/22 1513 36.4 ??C (97.5 ??F) 79 18 146/47 99 % Assessment: 71 y.o. presenting for follow up/ lab for prostate cancer. Not currently on abiraterone/pred as could not tolerate the prednisone part with onset of manic sx. He states he was put on this in [place] during a visit there but only on x 1 month and could not tolerate [place]. Concern at this time is that while there are no urinary sx of concern and seeing urology in summer,had a smooth prostate he now has doubling time of 6 months and PSA rise to 0.56. While making a couple of trips of several months to [place] during his lupron tx period, he did get on schedule lupron administration and confirms he completed a 3 year course. He states he has recently fx his wrist so will be seeing MD for management of this. Will order DXA scan. He is on Cholecalciferol D3. Will include D3 level and CMP next check and eval calcium. He asked for clarification of roles of each of his providers in rad onc, med onc, urology and we discussed those who have participated in his care to this point. I did indicate I would cc results of this PSA elevation and note to Urology, Dr Vazquez and Dr Barillas as well as his new PCP now noted asDrKenyetta Sanders. We will plan a sooner data point in 3 months to see if PSA stabilizes or continues to rise. We may add a PSMA PET scan at that point to eval for prostate progression. Medical Decision Making/Recommendations/Plan: # prostate cancer: reviewed PSA results. No concerning reported symptoms or physical examination findings today # effects of EBRT: Acute: 1. LUTS (lower urinary tract symptoms) 2. Bowel dysfunction 3. Sexual health/Erectile Dysfunction 4. Fatigue 5. Mood changes Late: We reviewed potential late effects of radiation that require medical evaluation including : 1. Changes in urinary flow/difficulty passing urine (scarring from radiation) 2. Blood in urine (may be infection, inflammation bladder wall (cystitis), formation of telangiectasia (small, thin blood vessels that are dilated or broken, near the surface of the bladder and may bleed) or bladder/genitourinary cancer 3. Blood in bowel movements (stools)- maybe from hemorrhoids, telangiectasia from radiation, colorectal cancer Symptoms that you should bring to the attention of your provider: Difficulty or changes in your urine flow Blood in your urine or stool # ADT:Has had lupron and eligard in past (eligard in [place] when he was there for a period of 5months) x 3 years. Abiraterone and pred started in [place] he states and tried but did not tolerate the prednisone as he experienced manic sx so needed to stop this combo when he returned to [place]. Regino not see dates on this. I do not think he has tried enzalutamide. He was aware at one point that a possible return to lupron might be needed but his Dr in [place] stated in note reluctance to dothis based on group home CV risk factors. There is also an added risk of CV dz in use of antipsychotics which pt requires for management of bipolar disorder. # survivorship/lifestyle/wellness: Genetic Risk Evaluation: Body weight/nutrition: Exercise: swims 3-4 days a week. Plays [employer] ball. He fx wrist a couple weeks ago. Will be seeing someone to address. Bone health: fx wrist. Smoking: no smoking Alcohol: none Sleep:sleeping very well now. Sunscreen: Annual exam with PCP: But different PCP recently and will tell net front end developer. (Now Celio Sanders MD) Up to date on vaccinations: covid vax done, boostered. Flu vax given this season. Colorectal screening: Per Dr Barillas note: He had a colonoscopy done in 05/2021. One polyp was removed and was a tubular adenoma. F/u was recommended in 7 years. He is concerned about waiting this long. Dr Barillas will send a message to Dr. Bray. Dr. Bray felt 7 years is an appropriate interval but is willing to do the colonoscopy in 5 years if Mr. Mckeon feels more comfortable with that. I spoke with Mr. Mckeon and he would like to do it in [address] Barillas will defer referral for this to his PCP or other involved provider as that time gets closer. ?? Lung cancer screening:n/a # resources provided: # referrals done: # follow up: Per NCCN guidelines, PSA and history/physical every 6-12 months X 5 years, then annually. Annual [facility] (unless PSA undetectable or prostatectomy). PSA may be checked more frequently depending on risk level or other patient specific factors. Next visit:3 months Labs: PSA, testosterone, CBC, CMP Nain Mckeon had the opportunity to ask questions and I answered them to the best of my knowledge.Nain Mckeon agreed to contact radiation oncology in between visits if he has any questions/concerns or new symptoms in regards to the radiation therapy/prostate cancer Rama Ramos MSN, TREE INSPECTOR, GEOPHYSICAL PROSPECTOR-C Nurse Practitioner Radiation Oncology documented in this encounter Plan of Treatment Upcoming Encounters Date Type Department Care Team (Late st Contact Info) Description 10/24/2023 1:30 PM EDT Office Visit Hematology/Oncology at [address] [phone] Bisi Cheng APRN [facility] [place] [address] documented as of this encounter Visit Diagnoses Diagnosis Age-related osteoporosis with current pathological fracture, unspecified hand, subsequent encounter for fracture with routine healing- Primary Malignant neoplasm of prostate Age-related osteoporosis without current pathological fracture Senile osteoporosis documented in this encounter Care Teams Assistant General Manager Relationship Specialty Start Date End Date Celio Sanders MD [address] [place] [address] PCP - General Internal Medicine 05/19/16 documented as of this encounter
--- OUTSIDE RECORDS SUMMARY | 2023-10-12 02:43 | XMS_ITS | Encounter Summary ---
Author Organization [facility] [place] [address] Care Team Providers Care Doctor Of Podiatric Medicine Name Role Phone Celio Sanders MD Primary Care Provider Reason for Referral * Diagnostic Test (Routine) - Closed Specialty Diagnoses / Procedures Referred By Contac t Referred To Contact Radiology Diagnoses Malignant neoplasm of prostate Procedures MRI Pelvis wwo (Prostate) Diane Leavitt MD [facility] [place] [address] [place] [address] Referral ID Status Reason Start Date Expiration Date V isits Requested Visits Authorized [id number] Closed Specialty Service Requested 11/18/2022 05/16/2024 1 1 Reason for Visit * Diagnostic Test (Routine) - Closed Specialty Diagnoses / Procedures Referred By Contac t Referred To Contact Radiology Diagnoses Malignant neoplasm of prostate Procedures MRI Pelvis wwo (Prostate) Diane Leavitt MD [facility] [place] [address] [place] [address] Referral ID Status Reason Start Date Expiration Date V isits Requested Visits Authorized [id number] Closed Specialty Service Requested 11/18/2022 05/16/2024 1 1 Encounter Details Date Type Department Care Team (Latest Contact Info) Description 12/30/2022 4:38 PM EDT - 12/30/2022 11:59 PM EDT Hospital [place] [address] Ronnie Vazquez MD [address] [place] [address] [place] [address] Malignant neoplasm of prostate Discharge Disposition: Home Social History Tobacco Use [...] 1:30 PM EDT Office Visit Hematology/Oncology at [address] [phone] Bisi Cheng APRN [facility] [place] [address] documented as of this encounter Procedures Procedure Name Priority Date/Time Associated Diagnosis Comments MRI PELVIS WWO (PROSTATE) Routine 12/30/2022 6:06 PM EDT Malignant neoplasm of prostate documented in this encounter Results * MRI Pelvis wwo (Prostate) (12/30/2022 6:06 PM EDT) Anatomical Region Laterality Modality Pelvis Magnetic Resonan ce Impressions 12/31/2022 9:26 AM EDT Lesion 1 PZ: PI-RADS 5. T2 location: axial series 8001, image 19; sagittal series 7001, image 19. Segmented in UroNav. PI-RADS v2.1 Assessment Categories PI-RADS 1 -- Very low (clinically significant cancer is highly unlikely to be present) PI-RADS 2 -- Low (clinically significant cancer is unlikely to be present) PI-RADS 3 -- Intermediate (the presence of clinically significant cancer is equivocal) PI-RADS 4 -- High (clinically significant cancer is likely to be present) PI-RADS 5 -- Very high (clinically significant cancer is highly likely to be present) References: Cinthia S1, Christie JH1, Haider S1, Silvestre C1, Lowery J1, Ana M1, Gold S1, Moreno G1, Rayn K1, Edgardo MJ1, Christos BJ1, Ferrer PA1, Antoni PL1, Shweta B1. ??A Grading System for the Assessment of Risk of Extraprostatic Extension of Prostate Cancer at Multiparametric MRI. Radiology. 2019 May;290(3):709-719. doi: 10.1148/radiol.9039940133. Epub 2018Mar 28. Thank you for letting us participate in the care of this patient. ??If you are a health care provider and have any questions regarding this report, please contact the number below. ??For patients who have questions please contact the health home visit field care manager that requested your imaging first. ? Narrative 12/31/2022 9:26 AM EDT EXAMINATION: MRI PELVIS WWO (PROSTATE) CLINICAL HISTORY: Node positive prostate cancer status post ADT and RT completed 2017 now with rising PSA and PET PSMA positive disease in prostate Please evaluate for signs of radiographic recurrence of prostate cancer HAS PATIENT HAD PREVIOUS BIOPSY?: Yes MOST RECENT PSA LEVEL: 1.7 TECHNIQUE: Multiparametric MRI of the prostate prior to and following IV administration of 16 mL of Dotarem contrast. ?? QUALITY: Meets PI-RADS technical criteria. COMPARISON: Prostate MRI 08/13/2016 PSMA PET/CT 11/09/2022 FINDINGS: Prostate fiducial markers are visible bilaterally. Prostate dimensions: 3.8 x 4.7 x 5.1cm. Estimated prostate volume: 47.4cc (X x Y x Z x 0.52) PSA density: 0.04 Peripheral zone: Lesion 1. Posterior peripheral zone from apex to base, right side more than left. T2: Circumscribed, homogenous moderately hypointense focus/mass PI-RADs: 5. DWI: ??Focal markedly hypointense on ADC and markedly hyperintense on high b-value DWI PI-RADs: 5. DCE-MRI: (+) focal early enhancement which corresponds to the suspicious finding on T2WI and DWI. ? Combined PI-RADs: 5. Transition zone: No focal lesions T2: Typical encapsulated and homogenous circumscribed nodules with intervening areas of homogenous mildly hypointense signal. PI-RADs: 2. DWI: ??No abnormality on ADC and high b-value DWI. PI-RADs: 1. DCE-MRI: (-) No early arterial enhancement. ? Combined PI-RADs: 2. Extraprostatic disease: Seminal vesicle involvement:No Lymphadenopathy:No Sphincter involvement:No Bladder involvement:No Osseous metastases: No MRI-derived Extraprostatic extension risk: Grade 2: 38.2% (Curvilinear contact length and capsular bulge/irregularity) Other findings: None. Procedure Note Isac Hearn MD - 12/31/2022 EXAMINATION: MRI PELVIS WWO (PROSTATE) CLINICAL HISTORY: Node positive prostate cancer status post ADT and RTcompleted 2017 now with rising PSA and PET PSMA positive disease in prostate Please evaluate for signs of radiographic recurrence of prostate cancer HAS PATIENT HAD PREVIOUS BIOPSY?: Yes MOST RECENT PSA LEVEL: 1.7 TECHNIQUE: Multiparametric MRI of the prostate prior to and following IV administration of 16 mL of Dotarem contrast. QUALITY: Meets PI-RADS technical criteria. COMPARISON: Prostate MRI 08/13/2016 PSMA PET/CT 11/09/2022 FINDINGS: Prostate fiducial markers are visible bilaterally. Prostate dimensions: 3.8 x 4.7 x 5.1cm. Estimated prostate volume: 47.4cc (X x Y x Z x 0.52) PSA density: 0.04 Peripheral zone: Lesion 1. Posterior peripheral zone from apex to base, right side morethan left. T2: Circumscribed, homogenous moderately hypointense focus/mass PI-RADs: 5. DWI: Focal markedly hypointense on ADC and markedly hyperintense onhigh b-value DWI PI-RADs: 5. DCE-MRI: (+) focal early enhancement which corresponds to the suspiciousfinding on T2WI and DWI. Combined PI-RADs: 5. Transition zone: No focal lesions T2: Typical encapsulated and homogenous circumscribed nodules withintervening areas of homogenous mildly hypointense signal. PI-RADs: 2. DWI: No abnormality on ADC and high b-value DWI. PI-RADs: 1. DCE-MRI: (-) No early arterial enhancement. Combined PI-RADs: 2. Extraprostatic disease: Seminal vesicle involvement:No Lymphadenopathy:No Sphincter involvement:No Bladder involvement:No Osseous metastases: No MRI-derived Extraprostatic extension risk: Grade 2: 38.2% (Curvilinearcontact length and capsular bulge/irregularity) Other findings: None. IMPRESSION Lesion 1 PZ: PI-RADS 5. T2 location: axial series 8001, image 19;sagittal series 7001, image 19. Segmented in UroNav. PI-RADS v2.1 Assessment Categories PI-RADS 1 -- Very low (clinically significant cancer is highly unlikely janna present) PI-RADS 2 -- Low (clinically significant cancer is unlikely to bepresent) PI-RADS 3 -- Intermediate (the presence of clinically significant canceris equivocal) PI-RADS 4 -- High (clinically significant cancer is likely to bepresent) PI-RADS 5 -- Very high (clinically significant cancer is highly likely janna present) References: Mehralilaura S1, Christie JH1, Maloney S1, Silvestre C1, Lowery J1, Czarniecki M1,Gold S1, Moreno G1, Rayn K1, Reynoso MJ1, Wood BJ1, Ferrer PA1, Choviki PL1, Turkcecy B1.A Grading System for the Assessment of Risk of Extraprostatic Extension of Prostate Cancer at Multiparametric MRI. Radiology. 2019Mar;290(3):709-719. doi: 10.1148/radiol.3013459521. Epub 2018Mar 28. Thank you for letting us participate in the care of this patient. If youare a health care provider and have any questions regarding this report,please contact the number below. For patients who have questions please contactthe health home visit field care manager that requested your imaging first. Ronnie Vazquez MD [facility] MRI ORDERABLES documented in this encounter Visit Diagnoses Diagnosis Malignant neoplasm of prostate documented in this encounter Administered Medications Inactive Administered Medications - up to 3 most recent administrations Medication Order MAR Action Action Date Dose Rate Site gadoterate meglumine (Dotarem) (0.5 mMol/mL) injection solution 0-100 mL 0-100 mL, Intravenous, ONCE PRN, 1 dose, Starting on Colleen 12/30/22 at 1708, Until Colleen 12/30/22 at 1755, Per Protocol, Radiology Contrast, Routine Given 12/30/2022 5:55 PM EDT 16 mLs documented in this encounter Care Teams Doctor Of Podiatric Medicine Relationship Specialty Start Date End Date Celio Sanders MD [address] [place] [address] PCP - General Internal Medicine 05/19/16 documented as of this encounter
--- OUTSIDE RECORDS SUMMARY | 2023-10-12 02:43 | XMS_ITS | Encounter Summary ---
Author Organization [facility] [place] [address] Care Team Providers Care Pharmaceutical Development Technician Name Role Phone Celio Sanders MD Primary Care Provider [phone] Encounter Details Date Type Department Care Team (Late Contact Info) Description 04/30/2022 Orders Only [place] [address] Rama Ramos [facility] [place] [address] Malignant neoplasm of prostate (Primary Dx); Vitamin D deficiency, unspecified Social History Tobacco Use Types Packs/Day Years [...] 1:30 PM EDT Office Visit Hematology/Oncology at [address] [phone] Bisi Cheng [facility] [place] [address] documented as of this encounter Visit Diagnoses Diagnosis Malignant neoplasm of prostate- Primary Vitamin D deficiency, unspecified documented in this encounter Care Teams Pharmaceutical Development Technician Relationship Specialty Start Date End Date Celio Sanders MD [address] [place] [address] PCP - General Internal Medicine 05/19/16 documented as of this encounter
--- OUTSIDE RECORDS SUMMARY | 2023-10-12 02:43 | XMS_ITS | Encounter Summary ---
[place] [address] Care Team Providers Care Tipple Greaser Name Role Phone Celio Sanders MD Primary Care Provider Reason for Referral * Consultation (Routine) - Closed Specialty Diagnoses / Procedures Referred By Tess de la rosa Referred To Contact Urology Diagnoses Prostate cancer metastatic to intrapelvic lymph node Ronnie Vazquez MD [address] [place] [address] [place] [address] [facility] [place] [address] Referral ID Status Reason Start Date Expiration Date V isits Requested Visits Authorized [id number] Closed Consult, Test & Treat 01/03/2023 01/03/2024 1 1 Encounter Details Date Type Department Care Team (Late st Contact Info) Description 01/03/2023 Orders Only Radiation Oncology at [address] [phone] Ronnie Vazquez MD [address] [place] [address] [place] [address] Prostate cancer metastatic to intrapelvic lymph node [...] 1:30 PM EDT Office Visit Hematology/Oncology at [address] [phone] Bisi Cheng APRN [facility] [place] [address] Scheduled Referrals Name Type Priority Associated Diagnoses Orde r Schedule Referral to Urology Outpatient Referral Routine Prostate cancer metastatic to intrapelvic lymph node Ordered: 01/03/2023 documented as of this encounter Visit Diagnoses Diagnosis Prostate cancer metastatic to intrapelvic lymph node documented in this encounter Care Teams Tipple Greaser Relationship Specialty Start Date End Date Celio Sanders MD [address] [place] [address] PCP - General Internal Medicine 05/19/16 documented as of this encounter
--- OUTSIDE RECORDS SUMMARY | 2023-10-12 02:43 | XMS_ITS | Encounter Summary ---
[place] [address] Care Team Providers Care Fried Cake Maker Name Role Phone Celio Sanders MD Primary Care Provider [phone] Encounter Details Date Type Department Care Team (Latest Contact Info) Description 01/20/2023 Travel Social History Tobacco Use Types Packs/Day [...] 1:30 PM EDT Office Visit Hematology/Oncology at [address] [phone] Bisi Cheng APRN [facility] [place] [address] documented as of this encounter Visit Diagnoses Not on filedocumented in this encounter Care Teams Fried Cake Maker Relationship Specialty Start Date End Date Celio Sanders MD [address] [place], [place] [address] PCP - General Internal Medicine 05/19/16 documented as of this encounter
--- OUTSIDE RECORDS SUMMARY | 2023-10-12 02:43 | XMS_ITS | Encounter Summary ---
Author Organization [facility] Address [facility] [place] [address] Care Team Providers Care Mud Engineer Name Role Phone Celio Sanders MD Primary Care Provider [phone] Encounter Details Date Type Department Care Team (Late Contact Info) Description 02/04/2023 Orders Only Hematology/Oncology at [address] [phone] Bisi Cheng APRN [facility] [place] [address] Prostate cancer metastatic to intrapelvic lymph node [...] PM EDT Office Visit Hematology/Oncology at [address] [phone] Bisi Cheng APRN [facility] [place] [address] Scheduled Orders Name Type Priority Associated Diagnoses Orde r Schedule CBC (with Diff) Lab Routine Prostate cancer metastatic to intrapelvic lymph node Expected: 02/14/2023, Expires: 08/16/2023 Comprehensive metabolic panel (non-fasting) Lab Routine Prostate cancer metastatic to intrapelvic lymph node Expected: 02/14/2023 (Approximate), Expires: 08/16/2023 documented as of this encounter Visit Diagnoses Diagnosis Prostate cancer metastatic to intrapelvic lymph node documented in this encounter Care Teams Mud Engineer Relationship Specialty Start Date End Date Celio Sanders MD [address] [place] [address] PCP - General Internal Medicine 05/19/16 documented as of this encounter
--- OUTSIDE RECORDS SUMMARY | 2023-10-12 02:43 | XMS_ITS | Encounter Summary ---
[place] [address] Care Team Providers Care Waterworks Chief Engineer Name Role Phone Celio Sanders MD Primary Care Provider [phone] Encounter Details Date Type Department Care Team (Latest Contact Info) Description 11/09/2022 Travel Social History Tobacco Use Types Packs/Day [...] 1:30 PM EDT Office Visit Hematology/Oncology at [address] [phone] Bisi Cheng APRN [facility] [place] [address] documented as of this encounter Visit Diagnoses Not on filedocumented in this encounter Care Teams Waterworks Chief Engineer Relationship Specialty Start Date End Date Celio Sanders MD [address] [place], [place] [address] PCP - General Internal Medicine 05/19/16 documented as of this encounter
--- OUTSIDE RECORDS SUMMARY | 2023-10-12 02:43 | XMS_ITS | Encounter Summary ---
Author Organization [facility] Address [facility] [place] [address] Care Team Providers Care Solution Analyst Name Role Phone Celio Sanders MD Primary Care Provider [phone] Reason for Visit * Consultation (Routine) - Closed Specialty Diagnoses / Procedures Referred By Tess de la rosa Referred To Contact Dermatology Diagnoses BRCA gene mutation positive Prostate cancer metastatic to intrapelvic lymph node Dayana Tompkins, RN [address] [place] [address] [place] [address] [facility] [address] [place] [address] Referral ID Status Reason Start Date Expiration Date V isits Requested Visits Authorized [id number] Closed Consult, Test & Treat 07/20/2021 07/20/2022 1 1 Encounter Details Date Type Department Care Team (Late st Contact Info) Description 10/06/2021 3:00 PM EDT Office Visit Dermatology at [facility] [address] [place] [address] Ernst Rinaldi MD [facility] [address] [place] [address] Inflamed seborrheic keratosis; SK (seborrheic keratosis); Lentigines; Gee angioma; Multiple benign nevi Social History Tobacco Use Types Packs/Day Years [...] Progress Notes * Ernst Rinaldi MD - 10/06/2021 3:00 PM [...] is new and referred to the clinic byDayana Tompkins APRN for a full skin cancer screening with the following concerns -Patient reports a lesion on the left forehead has been present for a year that is asymptomatic. Noprior bx or tx. -Patient reports a big [...] including risks and benefits. Verbal consent obtained. Treatedwith LN2. There were no complications; Patient tolerated [...] lesions and provided reassurance. Willcontinue to monitor. Other: ??? Sun protection discussed (protective clothing and SPF30+ broad-spectrum sunscreen) RTC: 1 year for FSE []Note routed to clerical secretary [x]Recall placed in scheduling system []Appointment scheduled at checkout Scribe attestation: Yordy Wesley MA has performed the documentation for this encounter in the presence of and acting as a scribe for Ernst Rinaldi MD. I performed the above scribed service and agree with the accuracy of the documentation in this encounter. Reviewed and signed by: Ernst Rinaldi MD Dermatology [facility] Patient seen and evaluated with staff dry press operator helper: Patsy Ely MD Dermatology [facility] * Patsy Ely MD - 10/06/2021 3:00 PM EDT [...] exam as documented in Dr. Rinaldi's note. PATSY ELY MD Staff Physician documented in this encounter Plan of Treatment Upcoming Encounters Date Type Department Care Team (Late st Contact Info) Description 10/24/2023 1:30 PM EDT Office Visit Hematology/Oncology at [address] [phone] Bisi Cheng APRN [facility] [place] [address] Scheduled Referrals Name Type Priority Associated Diagnoses Orde r Schedule Referral to Dermatology Outpatient Referral Routine BRCA gene mutation positive Prostate cancer metastatic to intrapelvic lymph node Ordered: 07/20/2021 documented as of this encounter Visit Diagnoses Diagnosis Inflamed seborrheic keratosis SK (seborrheic keratosis) Other seborrheic keratosis Lentigines Other dyschromia Gee angioma Nevus, non-neoplastic Multiple benign nevi Benign neoplasm of skin, site unspecified documented in this encounter Care Teams Solution Analyst Relationship Specialty Start Date End Date Celio Sanders MD [address] [place] [address] PCP - General Internal Medicine 05/19/16 documented as of this encounter
--- OUTSIDE RECORDS SUMMARY | 2023-10-12 02:43 | XMS_ITS | Encounter Summary ---
Author Organization [facility] Address [facility] [place] [address] Care Team Providers Care Marine Pilot Name Role Phone Celio Sanders MD Primary Care Provider [phone] Encounter Details Date Type Department Care Team (Late st Contact Info) Description 07/08/2022 2:30 PM EDT Office Visit Radiation Oncology at [address] [phone] Rama Ramos APRN [facility] [place] [address] Malignant neoplasm of prostate (Primary Dx) Social [...] Sign Reading Time Taken Comments Blood Pressure 137/86 07/08/2022 2:33 PM EDT Pulse 84 07/08/2022 2:33 PM EDT Temperature 36.2 ??C (97.1 ??F) 07/08/2022 2:33 PM ED T Respiratory Rate 16 07/08/2022 2:33 PM EDT Oxygen Saturation 98% 07/08/2022 2:33 PM EDT Inhaled Oxygen Concentration - - Weight 83.4 kg (183 lb 12.8 oz) 07/08/2022 2:33 PM EDT Height - - Body Mass Index 32.57 05/11/2022 10:04 AM EST documented in this encounter Progress Notes * Rama Ramos, SHOE CLEANER - 07/08/2022 2:30 PM EDTSummary: 71 year old M dx high risk prostate cancer. Compl RT 10/27/16. Compl 3 years ADT w/ final dose 05/2019 [facility] [[email or web address] [place] [address] Phone: RADIATION ONCOLOGY FOLLOW UP NOTE Patient Nain Mckeon 1950 PCP: Celio Sanders MD Urologist: Radiation oncologist: Dr. Ronnie Vazquez Chief Complaint: follow up/labs for prostate cancer Time since completed RT:10/27/16 ADT:3 years of Lupron or eligard with last dose 05/04/2019 Tried and stopped abiraterone /pred d/t not patrick pred with bipolar d.o. This was started in [place] and ended when he returned to [place]. Current treatment:Surveillance HPI: Per Dr Ronnie Vazquez 10/21/16 PATIENT IDENTIFICATION ?? NAME: Nain Mckeon DATE OF : 1950 ?? ONCOLOGIC SUMMARY: Nain Mckoen is a 66 y.o. year old male [...] 5/12 cores (all on right side), T2b, Avalon 8 Darlyn-neural invasion present PSA - 47.5 [...] LN no longer seen). Pt was in [place] for a period of 5 months and he received a 22.5mg leuprolide there on 05/15/2018. The facility [facility] and Provider Sp Coreas MD. This is in scanned documents. ?? Interim HPI: L wrist fx around 2021, plate, screws. [...] reviewed the IPSS/LINA/Epic-Cp survey results from today 07/08/2022 ??2:26 PM EDT - Filed by Patient Urinary function problem Very small problem Urinary control Occasional dribbling # of pads used per day None Urinary dripping/leakage problem Very small problem 5. How big a problem, if [...] Incontinence Symptom Score (range: 0 - 12) 2 Urinary Irritation/Obstructive Symptom Score (range: 0 - 12) 2 Bowel Symptom Score (range: 0 - 16) 0 Sexual Symptoms Score (range: 0 - 12) 1 Vitality/Hormonal Symptom Score (range: 0 - 12) 0 Overall Prostate Cancer QOL Score (range: 0 - 60) 5 Bloody Stool Score (range: 0 - 4) 0 Q - Prostate Followup Survey Question 07/08/2022 ??2:28 PM EDT - Filed by Patient Reason for visit Follow up on existing problem(s) Incomplete emptying Less than half the time Frequency Less than 1 time in 5 Intermittency Not at all Urgency Not at all Weak Stream Less than 1 time in 5 Straining Not at all Nocturia 2 times Quality of life Delighted Total IPSS Score (range: 0 - 35) 6 ( Mild LUTS) Confidence, level - past [...] save for fx wrist L and surgical repair.Has some tennis elbow r Fatigue:no problems with [...] depression Sleep: sleeping well, 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 Smoking:none Alcohol:none [...] chair Physical Examination: Body mass index is 32.57 kg/m??. BP 137/86 (Patient Position: Sitting) Pulse 84 Temp 36.2 ??C (97.1 ??F) (Temporal) Resp 16 Wt 83.4 kg (183 lb 12.8 oz) Constitutional: seen in clinic, no distress HENT: normocephalic, anicteric Cardiovascular: Rate and Rhythm: Normal rate and regular rhythm. Pulmonary: Effort: Pulmonary effort is normal. No cough, viral sx , congestion Genitourinary: Rectum: DEWEY today at last visit and prostate is palpable, no nodularity that I could appreciate. Nostool on glove. Last urology appt with DEWEY [...] Reviewed this visit: Date PSA Test Notes 07/01/22 1.1 46 240-950ng/dl test ref range 05/03/22 0.98 Hgb 13.1/ 01/11/22 0.56 58 [facility] 07/07/21 0.26 04/10/21 0.19 [facility] No data found. Assessment: 71 y.o. presenting for follow up/ lab for prostate cancer. Not currently on abiraterone/pred as could not tolerate the prednisone part with onset of manic sx. He had this in [place] during a visitthere but only on x 1 month and could not tolerate so stopped as soon as return to [place]. Monitoring of PSA continues. No urinary sx of concern and seeing urology last summer, had a smooth prostate. He started to have doubling time of 6 months in January 2022 with PSA 0.56 and then effectively almost doubled in 3 months with and PSA rise to 0.98. June 2022 PSA now 1.1. He has no new clinical sx and nothing of concern. He previously did completed a 3 year course of ADT with final dose 3 years ago. His testosterone has never come up toward a normal level. He fx his wrist and had surgery with plates. This has healed well w/o residual pain. DXA scan has been ordered. He is on Cholecalciferol D3. I will cc results of this PSA elevation and note to Urology, Dr Vazquez and Dr Barillas as well as his new PCP now noted as Dr. Celio Sanders. We will plan another data point in 3 months to see [...] lupron and eligard in past (eligard in [place] when he was there for a period of 5months) x 3 years. Abiraterone and pred started in [place] he states and tried but did not tolerate the prednisone as he experienced manic sx so needed to stop this combo when he returned to [place]. Regino not see dates on this. I do not think he has tried enzalutamide. He was [facility] Dr in [place] stated in note reluctance to [place] based on fci CV risk factors. There is also an [...] as that time gets closer. May 2026. ?? Lung cancer screening:n/a # follow up: Per NCCN guidelines, PSA and history/physical every 6-12 months X 5 years, then annually. Annual DEWEY (unless PSA undetectable or prostatectomy). PSA may be checked more frequently depending on risk level or other patient specific factors. Next visit:3 months Labs: PSA, testosterone, CBC, CMP Consider PSMA scan if rising toward 2.0 Nain Chet Mckeon had the opportunity to ask questions and I answered them to the best of my knowledge.Nain Paulsonaleida agreed to contact radiation oncology in between visits if he has any questions/concerns or new symptoms in regards to the radiation therapy/prostate cancer Rama Ramos MSN, SHOE CLEANER, SANITATION TANK WASHER-C Nurse Practitioner Radiation Oncology documented in this encounter Plan of Treatment Upcoming Encounters Date Type Department Care Team (Late st Contact Info) Description 10/24/2023 1:30 PM EDT Office Visit Hematology/Oncology at [address] [phone] Bisi Cheng APRN [facility] [place] [address] documented as of this encounter Visit Diagnoses Diagnosis Malignant neoplasm of prostate- Primary documented in this encounter Care Teams Marine Pilot Relationship Specialty Start Date End Date Celio Sanders MD [address] [place] [address] PCP - General Internal Medicine 05/19/16 documented as of this encounter
--- OUTSIDE RECORDS SUMMARY | 2023-10-12 02:43 | XMS_ITS | Encounter Summary ---
[place] [address] Care Team Providers Care Manager Of Business Name Role Phone Celio Sanders MD Primary Care Provider Encounter Details Date Type Department Care Team (Latest Contact Info) Description 02/03/2023 Travel Social History Tobacco Use Types Packs/Day [...] PM EDT Office Visit Hematology/Oncology at [address] [phone] Bisi Cheng APRN [facility] [place] [address] documented as of this encounter Visit Diagnoses Not on filedocumented in this encounter Care Teams Manager Of Business Relationship Specialty Start Date End Date Celio Sanders MD [address] [place], [place] [address] PCP - General Internal Medicine 05/19/16 documented as of this encounter
--- OUTSIDE RECORDS SUMMARY | 2023-10-12 02:43 | XMS_ITS | Encounter Summary ---
Author Organization [facility] Address [facility] [place] [address] Care Team Providers Care Customer Advocate Name Role Phone Celio Sanders MD Primary Care Provider [phone] Encounter Details Date Type Department Care Team (Late st Contact Info) Description 01/25/2023 [place] [phone] Nick Kelly MD [facility] [place] [address] Social History Tobacco Use Types Packs/Day Years [...] encounter Miscellaneous Notes * Telephone Encounter - Elise Rodriguez RN - 01/25/2023 4:42 PM EST Called Nain back. Prostate biopsy on . Suspects he had a fever Tuesday. Reports fatigue and generalized feeling of being unwell. This has been gradually improving since. Denies fever today. Improved fatigue, denies difficulty voiding. Denies hematuria or BRBPR. Denies pain. He will call with further questions or concerns. * Telephone Encounter - Elise Rodriguez RN - 01/25/2023 4:41 PM EST Copied from CRM #[id number]. Topic: Specialty Dept CRMs - Generic Call >> Jan 25, 2023 2:56 PM Dominique Cochran wrote: Specialist: Robin Patient returning call Relationship (if other than patient-full name): Patient Reason for Call: Patient returning nurses call from earlier today and provider's call from yesterday regarding not feeling well post biopsy, please see telephone encounter from yesterday. Please callto advise documented in this encounter Plan of Treatment Upcoming Encounters Date Type Department Care Team (Late st Contact Info) Description 10/24/2023 1:30 PM EDT Office Visit Hematology/Oncology at [address] [phone] Bisi Cheng, ACQUISITION MARKETING COORDINATOR [facility] [place] [address] documented as of this encounter Visit Diagnoses Not on filedocumented in this encounter Care Teams Customer Advocate Relationship Specialty Start Date End Date Celio Sanders MD [address] [place] [address] PCP - General Internal Medicine 05/19/16 documented as of this encounter
--- OUTSIDE RECORDS SUMMARY | 2023-10-12 02:43 | XMS_ITS | Encounter Summary ---
[place] [address] Care Team Providers Care Filament Tester Name Role Phone Celio Sanders MD Primary Care Provider [phone] Encounter Details Date Type Department Care Team (Latest Contact Info) Description 10/20/2022 Travel Social History Tobacco Use Types Packs/Day [...] PM EDT Office Visit Hematology/Oncology at [address] [phone] Bisi Cheng APRN [facility] [place] [address] documented as of this encounter Visit Diagnoses Not on filedocumented in this encounter Care Teams Filament Tester Relationship Specialty Start Date End Date Celio Sanders MD [address] [place], [place] [address] PCP - General Internal Medicine 05/19/16 documented as of this encounter
--- OUTSIDE RECORDS SUMMARY | 2023-10-12 02:43 | XMS_ITS | Encounter Summary ---
Author Organization [facility] Address [facility] [place] [address] Care Team Providers Care Social Studies Department Chair Name Role Phone Celio Sanders MD Primary Care Provider Encounter Details Date Type Department Care Team (Late st Contact Info) Description 07/17/2021 3:30 PM EDT Office Visit Hematology/Oncology at [address] [phone] Dayana Tompkins RN BRCA gene mutation positive; Prostate cancer [...] 36.5 ??C (97.7 ??F) 07/17/2021 3:27 PM ED T Respiratory Rate 18 07/17/2021 3:27 PM EDT Oxygen Saturation 98% 07/17/2021 3:27 PM EDT Inhaled Oxygen Concentration - - Weight 84.1 kg (185 lb 6.4 oz) 07/17/2021 3:27 P M EDT Height 160 cm (5' 2.99) 07/17/2021 3:27 PM EDT Body Mass Index 32.85 07/17/2021 3:27 PM EDT documented in this encounter Progress Notes * Dayana Tompkins, AIRPORT OPERATIONS COORDINATOR - 07/17/2021 3:30 PM EDT Subjective: Patient [...] 5/12 cores (all on right side), T2b, Bienville 8 Darlyn-neural invasion present PSA - 47.5 [...] a pathogenic variant (mutation) in BRCA2 specifically c.1929del(p.[id number]). 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 At the time of the appointment,??Nain?Jessywas provided with a printed copy of his??test result and an informational packet addressing a positive test result. ?? The following??47??genes were evaluated for sequence changes and exonic deletions/duplications: APC, RUMA, AXIN2, BARD1, BMPR1A, BRCA1, BRCA2, BRIP1, CDH1, CDK4, CDKN2A (p14ARF), CDKN2A (v07AGC8q), CHEK2, CTNNA1, DICER1, EPCAM (EPCAM: Deletion/duplication testing [...] (VUS) in the AXIN2 and CTNNA1??genes, specifically c.1531A>T(p.Zpy072Olg) and c.515A>T (p.Bff056Xus), were??detected. ? Interpretation: The most significant consequences of carrying a pathogenic variant in BRCA2 are increased risks forbreast cancer and ovarian cancer??in women.??For men, the most significant consequence is for prostate cancer so this finding is felt to be related to Nancies cancer.??Other cancers associated with BRCA2 are??breast cancer in men,??pancreatic, and melanoma. ??It is important to keep in mind that notall individuals who inherit a mutation in the BRCA2 gene will develop cancer. ??Having a BRCA2??mutation may make Nain??eligible for treatment with PARP inhibitors, oral medication that can be helpful in the setting of metastatic prostate cancer?This potential option should be discussed with??his ??oncologist. ?? We reviewed dominant inheritance. ??With this type of inheritance you only need to inherit one copyof the altered gene to have an increased [...] altered copy of the gene and therefore beat increased risk for cancer. ? Nain's sons??each [...] with them. ?? Nain's sons live in [place] and [place]. ??They can go to the website of [...] and mailing address stay updated in the [facility] system, in order for us to reach [...] possibility in the future,??Dr. Ara Mary, a batteryman at [facility] in [place], is willing to discuss these screening options with Nain.??Nain??can schedule an appointment with her by reaching her statistical secretary at [phone]. ?? Prostate Cancer Screening for Nain's sons ? Prostate cancer screening starting at age 40.?If either of them is found to not have the BRCA2 mutation then they can consider screening beginning at age 50 which is the recommendation for menin the general population ?? Skin cancer screening ?? Periodic skin exams ?? Colon cancer screening ?? Periodic colonoscopy screening as recommended by??Nain's batteryman. ?. ??SUMMARY ASSESSMENT/PLAN 07/24 He was diagnosed with prostate cancer in 2016 after presenting with hematuria and found to have an abnormal prostate gland on exam. TRUS prostate bx showed adenocarcinoma in 5/12 cores, all on the right. Bienville score was 8 in two of the [...] longer seen. He has been off lupron since 05/04/19. We will continue to follow him and will plan to see him in three months with a PSA. ? Soc Hx: , lives in [place], [place]. He goes to [place] from December to June. 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 Fam Hx: Father with prostate [...] as summarized above.) Nain returns to the [facility] oncology clinic in [facility] today for follow up surveillance visit with PSA review. Nain is alone in clinic today. His last Lupron injection was 04/26. Aberaterone caused a bipolar exacerbation. He had a major depressive episode in fall 2019 requiring hospitalization and has now been at home since 03/27. Nain is feeling well today. His affect is bright and interactive also. He has good energy. Since the last clinic visit he has started swimming 5-6 times a week at the [facility]. He also walks his dogs daily. His appetite is good. He takes probiotics daily both for digestion and for help with his depressionas he has researched a connection between probiotics, brain and vagus nerve. He feels his depression has been under good control. He denies any bowel issues. He denies any new muscle or bony aches or pains. No extremity swelling. He denies any blood in urine or difficulty voiding. He is followed also by Dr. Curran in urology. Nain denies fevers, chills, night sweats or new illnesses since his last clinic visit. He denies shortness of breath, cough, or chest pain. He last had a colonoscopy in May 2021. He will hold off on a mammogram at this point. He will have a breast exam today. Nain is in agreement to see a new car make ready worker for baseline exam as his BRCA2 positive [...] skin changes, no nipple drainage. Right breast -no masses palpated, no skin changes, no nipple drainage. No axillary adenopathy or swelling left orright. BP 158/82 (Patient Position: Sitting) Pulse 95 [...] internal iliac LN. Nain returns to the [facility] oncology clinic in [facility] today for followup surveillance visit with PSA review. He has no physical complaints and is feeling well following a major depressive episode that occurred fall 2019. No further depressive episodes. Emotional outlook [...] 1:30 PM EDT Office Visit Hematology/Oncology at [address] [phone] Bisi Cheng APRN [facility] [place] [address] documented as of this encounter Visit Diagnoses Diagnosis BRCA gene mutation positive Prostate cancer metastatic to intrapelvic lymph node documented in this encounter Care Teams Social Studies Department Chair Relationship Specialty Start Date End Date Celio Sanders MD [address] [place] [address] PCP - General Internal Medicine 05/19/16 documented as of this encounter
--- OUTSIDE RECORDS SUMMARY | 2023-10-12 02:43 | XMS_ITS | Encounter Summary ---
Author Organization [facility] KRISS Suárez [address] Care Team Providers Care Senior Sales Compensation Analyst Name Role Phone Celio Sanders MD Primary Care Provider [phone] Encounter Details Date Type Department Care Team (Late Contact Info) Description 02/11/2023 Telephone Hematology/Oncology at [address] [phone] Hanny Laureano Social History Tobacco [...] * Telephone Encounter - Hanny Laureano - 02/11/2023 9:20 AM EST Patient is aware that it is a npw and he will not need hydration or treatment documented in this encounter Plan of Treatment Upcoming Encounters Date Type Department Care Team (Late Contact Info) Description 10/24/2023 1:30 PM EDT Office Visit Hematology/Oncology at [address] [phone] Bisi Cheng APRN [facility] [place] [address] documented as of this encounter Visit Diagnoses Not on filedocumented in this encounter Care Teams Senior Sales Compensation Analyst Relationship Specialty Start Date End Date Celio Sanders MD [address] [place] [address] PCP - General Internal Medicine 05/19/16 documented as of this encounter
--- OUTSIDE RECORDS SUMMARY | 2023-10-12 02:43 | XMS_ITS | Encounter Summary ---
Author Organization [facility] Address [facility] [place] [address] Care Team Providers Care Weigher Alloy Name Role Phone Celio Sanders MD Primary Care Provider [phone] Encounter Details Date Type Department Care Team (Late Contact Info) Description 01/24/2023 [place] [address] Nick Kelly MD [facility] [place] [address] Social History Tobacco Use Types Packs/Day Years [...] encounter Miscellaneous Notes * Telephone Encounter - Nick Kelly MD - 01/24/2023 4:09 PM EST I contacted the patient to inform him about the pathology which showed GG5 (Andre 5+5) prostate cancer. He will f/u with Dr. Vazquez to discuss treatment options. documented in this encounter Plan of Treatment Upcoming Encounters Date Type Department Care Team (Late Contact Info) Description 10/24/2023 1:30 PM EDT Office Visit Hematology/Oncology at [address] [phone] Bisi Cheng APRN [facility] [place] [address] documented as of this encounter Visit Diagnoses Not on filedocumented in this encounter Care Teams Weigher Alloy Relationship Specialty Start Date End Date Celio Sanders MD [address] [place] [address] PCP - General Internal Medicine 05/19/16 documented as of this encounter
--- OUTSIDE RECORDS SUMMARY | 2023-10-12 02:43 | XMS_ITS | Encounter Summary ---
Author Organization [facility] Address [facility] [place] [address] Care Team Providers Care Director Of Student Life Name Role Phone Celio Sanders MD Primary Care Provider [phone] Reason for Visit * Diagnostic Test (Routine) - Closed Specialty Diagnoses / Procedures Referred By Contac t Referred To Contact Radiology Diagnoses Malignant neoplasm of prostate Procedures NM PET CT PSMA Prostate (Illuccix) Rama Ramos BULB PACKER [facility] [place] [address] [facility] [place] [address] Referral ID Status Reason Start Date Expiration Date V isits Requested Visits Authorized [id number] Closed Specialty Service Requested 10/12/2022 04/14/2024 1 2 Encounter Details Date Type Department Care Team (Latest Contact Info) Description 11/09/2022 1:29 PM EDT - 11/09/2022 11:59 PM EDT Hospital Encounter [place] [address] Rama Ramos BULB PACKER [facility] [place] [address] Discharge Disposition: Home Social History Tobacco Use [...] 1:30 PM EDT Office Visit Hematology/Oncology at [address] [phone] Bisi Cheng APRN [facility] [place] [address] documented as of this encounter Procedures Procedure Name Priority Date/Time Associated Diagnosis Comments NM PET CT PSMA PROSTATE (ILLUCCIX) Routine 11/09/2022 3:01 PM EDT Malignant neoplasm of prostate documented in this encounter Results * NM PET CT PSMA Prostate (Illuccix) (11/09/2022 3:01 PM EDT) Anatomical Region Laterality Modality Positron Emissio n Tomography (PET) Impressions 11/09/2022 4:44 PM EDT 1. ??Increased tracer uptake in the prostatic gland apex consistent with recurrent prostate malignancy. 2. ??No regional daja or metastatic disease. Thank you for referring this patient to [facility]. I have personally reviewed the [...] who have questions please contact the health care process manager that requested your imaging first. ? Narrative 11/09/2022 4:44 PM EDT EXAMINATION: NM [...] Thank you for referring this patient to [facility]. I have personally reviewed the image(s) and the resident's interpretationand agree with the findings, Matthew Price MD at 11/09/2022 4:44 PM Thank you for letting us participate in the care of this patient. If youare a health care provider and have any questions regarding this report,please contact the number below. For patients who have questions please contactthe health care process manager that requested your imaging first. Rama Ramos BULB PACKER IMG PET ORDERABLES documented in this encounter Visit Diagnoses Not on filedocumented in this encounter Care Teams Director Of Student Life Relationship Specialty Start Date End Date Celio Sanders MD [address] [place] [address] PCP - General Internal Medicine 05/19/16 documented as of this encounter
--- OUTSIDE RECORDS SUMMARY | 2023-10-12 02:43 | XMS_ITS | Encounter Summary ---
Author Organization [place] [address] Care Team Providers Care Craft Coordinator Name Role Phone Celio Sanders MD Primary Care Provider [phone] Reason for Referral * Diagnostic Test (Routine) - Closed Specialty Diagnoses / Procedures Referred By Contkulwant de la rosa Referred To Contact Radiology Diagnoses Malignant neoplasm of prostate Procedures MRI Pelvis wwo (Prostate) Diane Leavitt MD [facility] [place] [address] [place] [address] Referral ID Status Reason Start Date Expiration Date V isits Requested Visits Authorized [id number] Closed Specialty Service Requested 11/18/2022 05/16/2024 1 1 Encounter Details Date Type Department Care Team (Late st Contact Info) Description 11/18/2022 2:30 PM EDT Office Visit Radiation Oncology at [address] [phone] Ronnie Vazquez MD [address] [place] [address] [place] [address] Malignant neoplasm of prostate (Primary Dx) Social [...] Sign Reading Time Taken Comments Blood Pressure 147/81 11/18/2022 2:34 PM EDT Pulse 80 11/18/2022 2:34 PM EDT Temperature 36.4 ??C (97.5 ??F) 11/18/2022 2:34 PM ED T Respiratory Rate 16 11/18/2022 2:34 PM EDT Oxygen Saturation 100% 11/18/2022 2:34 PM EDT Inhaled Oxygen Concentration - - Weight 82.6 kg (182 lb) 11/18/2022 2:36 PM EDT Height - - Body Mass Index 32.25 10/12/2022 9:24 AM EDT documented in this encounter Progress Notes * Diane Leavitt MD - 11/18/2022 2:30 PM EDT Images from the original note were not included. RADIATION ONCOLOGY - Follow Up Visit Note 11/18/22 Ronnie Vazquez MD, MS Radiation Oncology [facility] [phone] (paging erector operator) Pager #[phone] PATIENT IDENTIFICATION IDENTIFICATION: Nain Mckeon is a 66 y.o. male with node positive prostate cancer who completed radiotherapy to his pelvis and prostate at the [facility] in [place], [place]. Details of his radiation treatment course are as below. TREATMENT INTENT: Definitive (Curative) REFERRING PROVIDER: Dr. Curran RT information: Treatment modality: VMAT Date of RT Start: 08/24/16 Date of RT Completion: 10/27/16 Dose and targets: Initial Treatment Site Pelvis Prescribed Dose 45 Gy in 25 fractions Boost Treatment Site 1 Entire SV Prescribed Dose 70.2 Gy in 39 fractions Boost Treatment Site 2 Prostate + Rt Obturator LN + Prox SV Prescribed Dose 79.2 Gy in 44 fractions INTERVAL HISTORY He has followed with Raam Ramos NP of our department at [facility] in [facility]. He completed 3 years of LT ADT in 2019. He did not tolerate abiraterone due to required prednisonethis was only tolerated for approximately 2 months in 2017. His PSA has been steadily increasing April 2021 (0.19) to October 2022 (1.7). Please see below: He saw Rama Ramos most recently on 10/12/2022 at which time recommendation was made to obtain PSMA PET scan (on 11/09/22) and a referral was placed to Dr. Tobar of medical oncology (scheduled for 11/22/2022). He has nocturia 1-3x, o0tegby during the day. No incontinence, urgency. No issues with bowels or rectum. He is very active, playing [employer] daily and swimming several times weekly. Performance Status: KPS Score ECOG Grade Definition [...] selfcare; totally confined to bed or chair MEDICATIONS Medications 11/18/22 1434 Medication Sig Taking? b complex vitamins Capsule [...] Take 75 mcg by mouth daily. Yes EXAM: BP 147/81 (Patient Position: Sitting) Pulse 80 Temp 36.4 ??C (97.5 ??F) (Temporal) Resp 16 Wt 82.6 kg (182 lb) SpO2 100% BMI 32.25 kg/m?? Constitutional: he appears well-developed and well-nourished. No distress. IMAGING / LABS PET PSMA 11/09/2022: Increased tracer uptake in the prostatic gland apex consistent with recurrent prostate malignancy. No regional daja or metastatic disease. This scan was overlaid with the prior RT inman to confirm a likely IN-FIELD local failure. Date PSA 10/12/22 1.7 07/01/22 1.1 05/03/22 0.98 01/11/22 0.56 07/07/21 0.26 04/10/21 0.19 IMPRESSION/PLAN Nain Mckeno is a 72 y.o. male initially diagnosed with node positive prostate cancer (s/p 79.2 Gystandard fractionation RT completed 10/27/2016 and 3 years of Lupron completed in 2019). He has beenfollowed in our clinic by Rama Ramos for a progressively rising PSA dating back to April 2021 at which time it was 0.19 and most recently his PSA was 1.7 in October 2022. A PET PSMA scan demonstra nadia FDG avid disease consistent with recurrence in the apex of the prostate gland within the prior radiation field. We discussed that the next step would include obtaining an MRI of the prostate to further characterize the recurrence prior to presenting his case at tumor board to discuss next steps including the role of biopsy and/or potential options for salvage therapy potentially including salvage prostatectomy or reirradiation with brachytherapy at [facility]. We also discussed that resuming ADT therapy would likely prove of benefit, and he is set to meet with Dr. Tobar of medical oncology next week. Regardless, he understands that we would not recommend initiating ADT until at least the biopsy is complete. Plan: Dr. Tobar on 11/22/22 2. mpMRI of prostate ordered today --> review result at tumor board Diane Leavitt MD Chief Resident ([id number]) Radiation Oncology [facility] Attending Attestation: I have seen the patient in person, reviewed and edited the resident's above history and I agree with the details as written. The assessment and plan were formulated in discussion with me and I agree with them as documented. At least 40 minutes were spent in providing care to this patient today as reflected by the following activities: - review of his medical record in the chart, including interpretation of imaging, laboratory and pathologic studies referenced above - discussion of the above with the patient as part of shared medical decision making - documenting the outcome of today's visit as above Ronnie Vazquez MD, MS [employer] Radiation Oncology documented in this encounter Plan of Treatment Upcoming Encounters Date Type Department Care Team (Late st Contact Info) Description 10/24/2023 1:30 PM EDT Office Visit Hematology/Oncology at [address] [phone] Bisi Cheng ELECTRICAL LABORATORY TECHNICIAN [facility] [place] [address] documented as of this encounter Results * MRI Pelvis wwo [...] be present) References: Cinthia S1, Christie JH1, Maloney S1, Silvestre C1, Lowery J1, Czarniecki M1, Gold S1, Moreno G1, Rayn K1, Reynoso MJ1, Wood BJ1, Ferrer PA1, Antoni PL1, Shweta B1. ??A Grading System for the Assessment of Risk of Extraprostatic Extension of Prostate Cancer at Multiparametric MRI. Radiology. 2019 Mar;290(3):709719. doi: 10.1148/radiol.8660571738. Epub 2018Mar 28. Thank you for letting us participate in the care of this patient. ??If you are a health care provider and have any questions regarding this report, please contact the number below. ??For patients who have questions please contact the health residential child care counselor that requested your imaging first. ? Electronically signed by: Isac Hearn MD, [facility] ([phone]), at 12/31/2022 9:26 AM Narrative 12/31/2022 9:26 AM EDT EXAMINATION: MRI [...] prostate cancer status post ADT and RTcompleted 2016 now with rising PSA and PET PSMA [...] cancer is highly likely janna present) References: Cinthia S1, Christie JH1, Maloney S1, Silvestre C1, Lowery J1, Czarniecki M1,Gold S1, Moreno G1, Rayn K1, Edgardo MJ1, Christos BJ1, Nabil PA1, Antoni PL1, Shweta B1.A Grading System for the Assessment of Risk of Extraprostatic Extension of Prostate Cancer at Multiparametric MRI. Radiology. 2019Mar;290(3):709-719. doi: 10.1148/radiol.4593924365. Epub 2018Mar 28. Thank you for letting us participate in the care of this patient. If youare a health care provider and have any questions regarding this report,please contact the number below. For patients who have questions please contactthe health residential child care counselor that requested your imaging first. Electronically signed by: Isac Hearn MD, [facility]([phone]), at 12/31/2022 9:26 AM Ronnie Vazquez MD IMG MRI ORDERABLES documented in this encounter Visit Diagnoses Diagnosis Malignant neoplasm of prostate- Primary Malignant neoplasm of prostate documented in this encounter Care Teams Craft Coordinator Relationship Specialty Start Date End Date Celio Sanders MD [address] [place] [address] PCP - General Internal Medicine 05/19/16 documented as of this encounter
--- OUTSIDE RECORDS SUMMARY | 2023-10-12 02:43 | XMS_ITS | Encounter Summary ---
[place] [address] Care Team Providers Care Per Diem Name Role Phone Celio Sanders MD Primary Care Provider Encounter Details Date Type Department Care Team (Latest Contact Info) Description 11/18/2022 Travel Social History Tobacco Use Types Packs/Day [...] 1:30 PM EDT Office Visit Hematology/Oncology at [address] [phone] Bisi Cheng APRN [facility] [place] [address] documented as of this encounter Visit Diagnoses Not on filedocumented in this encounter Care Teams Per Diem Relationship Specialty Start Date End Date Celio Sanders MD [address] [place], [place] [address] PCP - General Internal Medicine 05/19/16 documented as of this encounter
--- OUTSIDE RECORDS SUMMARY | 2023-10-12 02:43 | XMS_ITS | Encounter Summary ---
Author Organization [facility] [place] [address] Care Team Providers Care Planing Machine Operator Name Role Phone Celio Sanders MD Primary Care Provider [phone] Encounter Details Date Type Department Care Team (Late st Contact Info) Description 01/03/2023 [place] [phone] Allyn Del Toro RN Social History Tobacco Use Types Packs/Day [...] encounter Miscellaneous Notes * Telephone Encounter - Allyn Del Toro RN - 01/25/2023 1:59 PM EST Nain called office 01/24/23 regarding feeling weak after biopsy. Message just received and call placed shortly after. Noted that Nain spoke with Dr. Kelly after call to Urology. Nain did not answer this call and there was no voicemail available to leave a message. * Telephone Encounter - Allyn Del Toro RN - 01/03/2023 2:39 PM EDT Prostate Biopsy Date/Time: 01/20/23 0930 Meds/Allergies: (reviewed and charted) yes Anticoagulant medications: (Coumadin, Plavix, ASA, NSAIDs, Eliquis, Farxiga, xarelto, tavenos, savaysa, arixtra, pradaxa, iprivask, angiomax, acora): Yes - occasionally takes ibuprofen - knows to avoid for 7 days prior to biopsy If yes, review with PCP or supervisory it specialist to discuss bridging OTC, herbal and vitamin supplements for potential anti-coag effect: (ginko, bear, feverfew, garlic, Vit E): YES - vit E knows to hold for 7 week prior and after biopsy If yes: stop 1 week prior to and after biopsy Labs: all patients to get PSA and % free within 30 days of prostate biopsy PSA: 1.7 in Oct; will recheck at [facility] (order faxed 01/03/23) MRI: 12/30/22 PI-RADS 5 Patient Hx: Joint replacement: No Anyone in household work in healthcare: No Antibiotic use in the past 6 months: No Travel outside the [place] in the past 6 months: No Artificial heart valve: No If yes, need urine culture 1 week prior to prostate biopsy Performs CIC or has indwelling catheter: No If yes, need urine culture 1 week prior to prostate biopsy Other : Rectal swab (recommended if pt answers YES to living with a healthcare worker, flouroquinolone abx therapy in past 6 months, or foreign travel to 2nd or 3rd world country): Not indicated Patient Instructions/Information: [place] at Pad Extraction Tender 5B Eat breakfast Administer fleet enema night before or morning of biopsy Stop NSAIDs 7 days prior to biopsy Stop anticoagulation or bridging as needed You will receive antibiotics the morning of the procedure, 1 hour prior to prostate biopsy We will ask you for a urine sample that morning Plan to be here for 2-3 hours Patient understands and is able to verbalize back to this nurse the above information. Patient agrees to the plan, knows when and how to call if need arises. documented in this encounter Plan of Treatment Upcoming Encounters Date Type Department Care Team (Late st Contact Info) Description 10/24/2023 1:30 PM EDT Office Visit Hematology/Oncology at [address] [phone] Bisi Cheng APRN [facility] [place] [address] documented as of this encounter Visit Diagnoses Not on filedocumented in this encounter Care Teams Planing Machine Operator Relationship Specialty Start Date End Date Celio Sanders MD [address] [place] [address] PCP - General Internal Medicine 05/19/16 documented as of this encounter
--- OUTSIDE RECORDS SUMMARY | 2023-10-12 02:43 | XMS_ITS | Encounter Summary ---
Author Organization [facility] Address [facility] [place] [address] Care Team Providers Care Medical Claims Representative Name Role Phone Celio Sanders MD Primary Care Provider [phone] Encounter Details Date Type Department Care Team (Late st Contact Info) Description 05/11/2022 10:15 AM EST Office Visit Radiation Oncology at [address] [phone] Rama Ramos APRN [facility] [place] [address] Malignant neoplasm of prostate (Primary Dx) Social [...] Sign Reading Time Taken Comments Blood Pressure 124/61 05/11/2022 10:04 AM EST Pulse 99 05/11/2022 10:04 AM EST Temperature 36.7 ??C (98.1 ??F) 05/11/2022 10:[address] Respiratory Rate 18 05/11/2022 10:04 AM EST Oxygen Saturation 97% 05/11/2022 10:04 AM EST Inhaled Oxygen Concentration - - Weight 86.8 kg (191 lb 6.4 oz) 05/11/2022 10:04 AM EST Height 160 cm (5' 2.99) 05/11/2022 10:04 AM EST Body Mass Index 33.91 05/11/2022 10:04 AM EST documented in this encounter Progress Notes * Rama Ramos, RESEARCH AND INSIGHTS EXECUTIVE - 05/11/2022 10:15 AM ESTSummary: 71 year old M dx high risk prostate cancer. Compl RT 10/27/16. Compl 3 years ADT w/ final dose 05/2019 [facility] [place] [address] Phone: RADIATION ONCOLOGY FOLLOW UP NOTE Patient Nain Mckeon 1950 PCP: Celio Sanders MD Urologist: Radiation oncologist: Dr. Ronnie Vazquez Chief Complaint: follow up/labs for prostate cancer Time since completed RT:10/27/16 ADT:3 years of Lupron or eligard with last dose 05/04/2019 Tried and stopped abiraterone /pred d/t not patrick pred with bipolar d.o. This was started in [place] and ended when he returned to [place]. Current treatment:Surveillance HPI: Per Dr Ronnie Vazquez [...] LN no longer seen). Pt was in [place] for a period of 5 months and he received a 22.5mg leuprolide there on 05/15/2018. The facility [facility] and Provider Sp Coreas MD. This is in scanned documents. ?? Interim HPI: Review of Symptoms: I reviewed the IPSS/LINA/Epic-Cp survey results from today 05/11/2022 10:03 AM EST - Filed by Patient Urinary function problem Very small problem Urinary control Total control # of pads used per day None Urinary dripping/leakage problem No problem 5. How big a problem, if any, has each of the following been for you? Pain or burning with urination No problem Weak urine stream/incomplete bladder emptying No problem Need to urinate frequently Very small problem 6. How big a problem, if any, has each of the following been for you? Rectal pain or urgency of bowel movements No problem Increased frequency of your bowel movements No problem Overall problems with your bowel movements No problem Bloody stools No problem Ability to reach orgasm Very good Quality of your erections Firm enough for masturbation and foreplay Problem with sexual function or lack of it No problem 10. How big a problem, if any, has each of the following been for you? Hot flashes or breast tenderness/enlargement No problem Feeling depressed Very small problem Lack of energy No problem Urinary Incontinence Symptom Score (range: 0 - 12) 0 Urinary Irritation/Obstructive Symptom Score (range: 0 - 12) 1 Bowel Symptom Score (range: 0 - 16) 0 Vitality/Hormonal Symptom Score (range: 0 - 12) 1 Overall Prostate Cancer QOL Score (range: 0 - 60) 2 Q - Prostate Followup Survey Question 05/11/2022 10:06 AM EST - Filed by Patient Reason for visit Follow up on existing problem(s) Incomplete emptying Less than 1 time in 5 Frequency Less than 1 time in 5 Intermittency Not at all Urgency Not at all Weak Stream Less than 1 time in 5 Straining Not at all Nocturia 1 time Quality of life Delighted Total IPSS Score (range: 0 - 35) 4 ( Mild LUTS) Confidence, level - past [...] for fx wrist L and surgical repair. 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 Smoking:none Alcohol:none [...] chair Physical Examination: Body mass index is 33.91 kg/m??. BP 124/61 (Patient Position: Sitting) Pulse 99 Temp 36.7 ??C (98.1 ??F) (Temporal) Resp 18 Ht 160 cm (5' 2.99) Wt 86.8 kg (191 lb 6.4 oz) Constitutional: seen in clinic, no distress HENT: normocephalic, anicteric Cardiovascular: Rate and Rhythm: Normal rate and regular rhythm. Pulmonary: Effort: Pulmonary effort is normal. No cough, viral sx , congestion Genitourinary: Rectum: DEWEY today and prostate is palpable, no nodularity that I could appreciate. No stool on glove. Last urology appt this with DEWEY and smooth prostate report. Musculoskeletal: [...] Reviewed this visit: Date PSA Test Notes 05/03/22 0.98 Hgb 13.1/ 01/11/22 0.56 58 [facility] 07/07/21 0.26 04/10/21 0.19 [facility] No data found. Assessment: 71 y.o. presenting for follow up/ lab for prostate cancer. Not currently on abiraterone/pred as could not tolerate the prednisone part with onset of manic sx. He had this in [place] during a visitthere but only on x 1 month and could not tolerate so stopped as soon as return to [place]. Concern at this time is that while there are no urinary sx of concern and seeing urology in summer,had a smooth prostate he now had doubling time of 6 months in January with PSA 0.56 and now effectively almost doubled in 3 months with and PSA rise to 0.98. While making a couple of trips of several months to [place] during his lupron tx period, he did get on schedule lupron administration and confirms he completed a 3 year course. He states he has recently fx his wrist and had surgery with plates. Will order DXA scan. He is on Cholecalciferol D3. I will [...] lupron and eligard in past (eligard in [place] when he was there for a period of 5months) x 3 years. Abiraterone and pred started in [place] he states and tried but did not tolerate the prednisone as he experienced manic sx so needed to stop this combo when he returned to [place]. Regino not see dates on this. I do not think he has tried enzalutamide. He was aware at one point that a possible return to lupron might be needed but his Dr in [place] stated in note reluctance to dothis based on custodial CV risk factors. There is also an added risk of CV dz in use of antipsychotics which pt requires for management of bipolar disorder. # survivorship/lifestyle/wellness: Genetic Risk Evaluation: Body weight/nutrition: Exercise: swims 3-4 days a week. Plays AMT ball. He fx wrist a couple weeks [...] the radiation therapy/prostate cancer Rama Ramos MSN, RESEARCH AND INSIGHTS EXECUTIVE, TRANSFORMATION MANAGER-C Nurse Practitioner Radiation Oncology documented in this encounter Plan of Treatment Upcoming Encounters Date Type Department Care Team (Late st Contact Info) Description 10/24/2023 1:30 PM EDT Office Visit Hematology/Oncology at [address] [phone] Bisi Cheng APRN [facility] [place] [address] documented as of this encounter Visit Diagnoses Diagnosis Malignant neoplasm of prostate- Primary documented in this encounter Care Teams Medical Claims Representative Relationship Specialty Start Date End Date Celio Sanders MD [address] [place] [address] PCP - General Internal Medicine 05/19/16 documented as of this encounter
--- OUTSIDE RECORDS SUMMARY | 2023-10-12 02:43 | XMS_ITS | Encounter Summary ---
Author Organization [facility] Address [facility] [place] [address] Care Team Providers Care Graphite Mill Operator Name Role Phone Celio Sanders MD Primary Care Provider [phone] Encounter Details Date Type Department Care Team (Latest Contact Info) Description 02/15/2023 Travel Social History Tobacco Use Types Packs/Day Years Used Date Smoking Tobacco: Never Smokeless Tobacco: Never Alcohol Use Standard Drinks/Week Comments Not Currently 0 (1 standard drink = 0.6 oz pur e alcohol) beer and wine twice a month [facility] Utilities Answer Date Recorded In the [...] to sleep or slept in a senior care (including now)? No 02/15/2023 Sex and Gender Information Value Date Recorded Sex Assigned at Not on file Gender Identity Not on file Sexual Orientation Not on file documented as of this encounter Plan of Treatment Upcoming Encounters Date Type Department Care Team (Late st Contact Info) Description 10/24/2023 1:30 PM EDT Office Visit Hematology/Oncology at [address] [phone] Bisi Cheng APRN [facility] [place] [address] documented as of this encounter Visit Diagnoses Not on filedocumented in this encounter Care Teams Graphite Mill Operator Relationship Specialty Start Date End Date Celio Sanders MD [address] [place] [address] PCP - General Internal Medicine 05/19/16 documented as of this encounter
--- OUTSIDE RECORDS SUMMARY | 2023-10-12 02:43 | XMS_ITS | Encounter Summary ---
[place] [address] Care Team Providers Care Public Records Researcher Name Role Phone Celio Sanders MD Primary Care Provider Encounter Details Date Type Department Care Team (Latest Contact Info) Description 11/22/2022 Travel Social History Tobacco Use Types Packs/Day [...] 1:30 PM EDT Office Visit Hematology/Oncology at [address] [phone] Biis Cheng APRN [facility] [place] [address] documented as of this encounter Visit Diagnoses Not on filedocumented in this encounter Care Teams Public Records Researcher Relationship Specialty Start Date End Date Celio Sanders MD [address] [place], [place] [address] PCP - General Internal Medicine 05/19/16 documented as of this encounter
--- OUTSIDE RECORDS SUMMARY | 2023-10-12 02:43 | XMS_ITS | Encounter Summary ---
Author Organization [facility] Address [facility] [place] [address] Care Team Providers Care Taper And Floater Name Role Phone Celio Sanders MD Primary Care Provider [phone] Reason for Referral * Consultation (Routine) - Closed Specialty Diagnoses / Procedures Referred By Contac t Referred To Contact Hematology and Oncology Diagnoses Prostate cancer metastatic to intrapelvic lymph node Ronnie Vazquez MD [address] [place] [address] [place] [address] Harjinder Snyder MD [facility] [address] [place] [address] Referral ID Status Reason Start Date Expiration Date V isits Requested Visits Authorized [id number] Closed Consult, Test & Treat 02/01/2023 02/01/2024 1 1 * Consultation (Routine) - Closed Specialty Diagnoses / Procedures Referred By Contac t Referred To Contact Radiation Oncology Diagnoses Prostate cancer metastatic to intrapelvic lymph node Ronnie Vazquez MD [address] [place] [address] [place] [address] Victorino Hassan MD [address] [place], [place] [address] [address] Referral ID Status Reason Start Date Expiration Date V isits Requested Visits Authorized [id number] Closed Assume Subset of Care 02/01/2023 07/31/2023 1 1 Encounter Details Date Type Department Care Team (Late Contact Info) Description 02/01/2023 Orders Only Radiation Oncology at [address] [phone] Ronnie Vazquez MD [address] [place] [address] [place] [address] Prostate cancer metastatic to intrapelvic lymph node; [...] PM EDT Office Visit Hematology/Oncology at [address] [phone] Bisi Cheng APRN [facility] [place] [address] Scheduled Referrals Name Type Priority Associated Diagnoses Orde r Schedule Referral to Radiation Oncology Outpatient Referral Routine Prostate cancer metastatic to intrapelvic lymph node Ordered: 02/01/2023 Referral to Hematology and Oncology Outpatient Referral Routine Prostate cancer metastatic to intrapelvic lymph node Ordered: 02/01/2023 documented as of this encounter Visit Diagnoses Diagnosis Prostate cancer metastatic to intrapelvic lymph node Recurrent prostate cancer documented in this encounter Care Teams Taper And Floater Relationship Specialty Start Date End Date Celio Sanders MD [address] [place] [address] PCP - General Internal Medicine 05/19/16 documented as of this encounter
--- OUTSIDE RECORDS SUMMARY | 2023-10-12 02:43 | XMS_ITS | Encounter Summary ---
Author Organization [facility] Address [facility] [place] [address] Care Team Providers Care Splunk Architect Name Role Phone Celio Sanders MD Primary Care Provider [phone] Reason for Visit * Reason Comments Establish Care * Consultation (Routine) - Closed Specialty Diagnoses / Procedures Referred By Contac t Referred To Contact Hematology and Oncology Diagnoses Malignant neoplasm of prostate Rama Ramos APRN [facility] [place] [address] [facility] Hem Onc [address] [place] [address] Referral ID Status Reason Start Date Expiration Date V isits Requested Visits Authorized [id number] Closed Assume Subset of Care 10/12/2022 10/12/2023 1 1 Encounter Details Date Type Department Care Team (Late st Contact Info) Description 11/22/2022 3:00 PM EDT Office Visit [place] [phone] Veronika Tobar MD [facility] [place] [address] Malignant neoplasm of prostate Social History Tobacco [...] Sign Reading Time Taken Comments Blood Pressure 137/76 11/22/2022 2:59 PM EDT Pulse 81 11/22/2022 2:59 PM EDT Temperature 36 ??C (96.8 ??F) 11/22/2022 2:59 PM EDT Respiratory Rate 17 11/22/2022 2:59 PM EDT Oxygen Saturation 96% 11/22/2022 2:59 PM EDT Inhaled Oxygen Concentration - - Weight 84.9 kg (187 lb 2.7 oz) 11/22/2022 2:59 P M EDT Height 161.9 cm (5' 3.74) 11/22/2022 2:59 PM ED T Body Mass Index 32.39 11/22/2022 2:59 PM EDT documented in this encounter Progress Notes * Veronika Tobar MD - 11/22/2022 3:00 PM EDT Images from the original note were not included. [facility] Medical Oncology [place] [id number] ONCOLOGY NEW PATIENT VISIT REFERRING: Dr Vazquez, Dr Contreras ONCOLOGY SUMMARY: [...] to get an MRI and prostate biopsy Genetic testing Mar 2018: pathogenic variant in BRCA2 (c.[id number], [id number]). VUS in AXIN2 and CTNNA1 HPI: Nain Mckeon is a 72 y.o. [...] day) and nocturia (2-3 times a night) REVIEW OF SYSTEMS: Aside from above, the remainder of the the ROS was negative PAST MEDICAL HISTORY: Past Medical History: Diagnosis Date Anxiety Finger fracture multiple from basket ball injuries Hyperlipidemia Prostate cancer Past Surgical History: Procedure Laterality Date APPENDECTOMY burst CHOLECYSTECTOMY, LAPAROSCOPIC PRO COLONOSCOPY, DIAGNOSTIC N/A 05/12/2021 COLONOSCOPY, DIAGNOSTIC performed by Nicky Bray MD at [facility] ENDOSCOPY PROSTATE BIOPSY MEDS: Medications 11/22/22 4911 Medication Sig Taking? 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 PS: ECOG = 0 General: NAD Head: NCAT Eyes: Not icteric, not injected Neck: Supple. Nodes: No palpable cervical adenopathy. Lungs: CTAB, Heart: RRR Neuro: No focal weakness Psych: Normal mood and affect. LABS: Reviewed PSA as above IMAGING STUDIES: I have personally reviewed the images and radiology reports and summarized the findings as above ASSESSMENT AND PLAN: 72 y.o. male with PSA recurrence of high risk prostate cancer as detailed above I reviewed with himand his that while he has not met strict criteria for PSA recurrence based on the Christmas criteria, I agree with restaging exams and evaluation for recurrent disease as has been recommended. He has rapidly rising PSA and need tx. I reviewed the findings of the PSMA PET: He has recurrent disease in the prostate with no evidence of distant disease. He is scheduled to get MRI and repeat biopsy. He is currently asymptomatic. I reviewed with him the general thought process around management at this point. One would be to consider curative intent local treatment with the goal of avoiding long-term ADT and attendant side effects and the other would be palliative intent systemic tx. The options for local tx would be surgery, focal ablation, or he has discussed with Drs. Vazquez And Diane, he may be a candidate for SBRT or brachytherapy. I discussed with him in general considerations for local treatment and potential risks which are associated with delivering ablative modalityin the vicinity of the bladder, bowel, and associated nerves. There may be nuances to the incidence of each of the side effects with each modality but my suspicion is that these risks would be fairlycomparable. I will defer to him to discuss with Dr. Vazquez and we would need to refer him to either Dr. Victorino Hassan or Dr. Gaetano Fleming for discussion of other ablative techniques. I favor considering a local approach over systemic treatment. An alternative of systemic treatment with ADT has the trade-offs with upside no chance of direct damage to the pelvic structures associated with above treatments but the downside being essentially guaranteed decline in sexual desire as well as additional side effects of ADT such as vasomotor symptoms bone density loss, mood lability, long-term increasing cardiovascular events, etc. and the fact that he would have to continue on ADT continuously or intermittently indefinitely. We will await above tests and review at TB prior to final plans Pt was instructed to call our clinic with any new symptom or any questions. Thank you for referring this patient to medical oncology. Veronika Tobar MD, PhD Oncology documented in this encounter Plan of Treatment Upcoming Encounters Date Type Department Care Team (Late st Contact Info) Description 10/24/2023 1:30 PM EDT Office Visit Hematology/Oncology at [address] [phone] Bisi Cheng APRN [facility] [place] [place] [address] Scheduled Referrals Name Type Priority Associated Diagnoses Order Schedule Referral to Hematology and Oncology Outpatient Referral Routine Malignant neoplasm of prostate Ordered: 10/12/2022 documented as of this encounter Visit Diagnoses Diagnosis Malignant neoplasm of prostate documented in this encounter Care Teams Splunk Architect Relationship Specialty Start Date End Date Celio Sanders MD [address] [place] [address] PCP - General Internal Medicine 05/19/16 documented as of this encounter
--- OUTSIDE RECORDS SUMMARY | 2023-10-12 02:43 | XMS_ITS | Encounter Summary ---
Author Organization [facility] Address [facility] [place] [address] Care Team Providers Care Disc Pad Plate Filler Name Role Phone Celio Sanders MD Primary Care Provider Encounter Details Date Type Department Care Team (Late Contact Info) Description 01/19/2022 Telephone Radiation Oncology at [address] [phone] Carmine Cheema Social History Tobacco Use Types Packs/Day Years [...] PM EDT Office Visit Hematology/Oncology at [address] [phone] Bisi Cheng APRN [facility] [place] [address] documented as of this encounter Visit Diagnoses Not on filedocumented in this encounter Care Teams Disc Pad Plate Filler Relationship Specialty Start Date End Date Celio Sanders MD [address] [place] [address] PCP - General Internal Medicine 05/19/16 documented as of this encounter
--- OUTSIDE RECORDS SUMMARY | 2023-10-12 02:43 | XMS_ITS | Encounter Summary ---
Author Organization [facility] [place] [address] Care Team Providers Care Aluminum Siding Installer Name Role Phone Celio Sanders MD Primary Care Provider Encounter Details Date Type Department Care Team (Late st Contact Info) Description 01/31/2023 Telephone Radiation Oncology at [address] [phone] Ronnie Vazquez MD [address] [place] [address] DR RADIATION ONCOLOGY [place], [place] [id number] Social History Tobacco Use Types Packs/Day Years [...] encounter Miscellaneous Notes * Telephone Encounter - Ronnie Vazquez MD - 01/31/2023 4:09 PM EST Images from the original note were not included. Radiation Oncology Phone Note Ronnie Vazquez MD, MS [facility] PATIENT NAME: Nain Mckeon DATE OF : 1950 PRIMARY CARE PROVIDER: Celio Sanders MD DATE OF SERVICE: 01/31/2023 PATIENT SUMMARY: Nain Mckeon is a 72 y.o. previously seen for consultation for diagnosis of prostate cancer. I am calling him today to discuss results of his prostate biopsy. INTERVAL SUBJECTIVE HISTORY: Since last seen, Nain reports no overall changes to his health status. INTERVAL OBJECTIVE HISTORY: URONav biopsy - 01/20/23 - GG5 in all cores (template and target) ASSESSMENT / PLAN: Nain is a 72M with biopsy proven prostate cancer recurrence. Most recent staging PSMA and MRI PET do not show disease outside of the prostate. The biopsy shows diffuse, high grade disease which is not seen on the imaging studies. I reviewed with Nain that sometimes prostate biopsies can be hard to interpret after radiotherapy and that I will confirm these findings with surgical pathology. In terms of next steps, I reviewed the paradigm of likely ADT and salvage brachytherapy. Other salvage options of surgery, HiFU, or cryotherapy were also discussed. I will discuss ADT options furtherwith Filiberto Tobar and Lillian (the former has already met Nain at time of recurrence) to expedite care in terms of ADT. With regard to local therapies, I have placed a call out to Dr Hassan who is on vacation this week. Yeni revisit this next week. In my experience, he is often able to patients for salvage RT in shortorder. All of Nain's questions were answered to his fullest satisfaction, and we have provided him with our contact information should any further questions or concerns arise. RONNIE VAZQUEZ MD, MS documented in this encounter Plan of Treatment Upcoming Encounters Date Type Department Care Team (Late st Contact Info) Description 10/24/2023 1:30 PM EDT Office Visit Hematology/Oncology at [address] [phone] Bisi Cheng APRN [facility] MEDICAL [place] [address] documented as of this encounter Visit Diagnoses Not on filedocumented in this encounter Care Teams Aluminum Siding Installer Relationship Specialty Start Date End Date Celio Sanders MD [address] [place] [address] PCP - General Internal Medicine 05/19/16 documented as of this encounter
--- OUTSIDE RECORDS SUMMARY | 2023-10-12 02:43 | XMS_ITS | Encounter Summary ---
Author Organization [facility] Address [facility] [place] [address] Care Team Providers Care Metaphysics Teacher Name Role Phone Celio Sanders MD Primary Care Provider [phone] Encounter Details Date Type Department Care Team (Late st Contact Info) Description 05/12/2021 2:45 PM EST - 05/12/2021 3:30 PM EST [place] [phone] Nicky Bray MD [facility] [place] [address] COLONOSCOPY, DIAGNOSTIC (WRVU 3.26) Social History Tobacco Use Types Packs/Day Years [...] PM EDT Office Visit Hematology/Oncology at [address] [phone] Bisi Cheng APRN [facility] [place] [address] documented as of this encounter Procedures Procedure Name Priority Date/Time Associated Diagnosis Comments SPECIMEN TO PATHOLOGY Routine 05/12/2021 3:10 PM EST SURGICAL PATHOLOGY REPORT Routine 05/12/2021 2:59 PM EST Colonoscopy, Diagnostic ([id number]) 05/12/2021 2:31 PM EST BRCA gene mutation positive COLONOSCOPY Routine 05/12/2021 2:18 PM EST documented in this encounter Results * Specimen to Pathology (05/12/2021 3:10 PM EST) AP Specimen 05/12/2021 3:10 PM EST 05/12/2021 3:10 PM EST Narrative [facility] - 05/12/2021 3:10 PM EST Specimen requisition ordered. ??Separate Pathology report to follow Nicky Bray MD PATHOLOGY/CYTOLOGY O RDERABLES [facility] [place] [address] * Surgical Pathology Report (05/12/2021 2:59 PM EST) Final Diagnosis [id number] ? Location: 4T; EA12; A The signing pathologist has (i) examined the relevant preparation(s) for the specimen(s) and (ii) rendered or confirmed the diagnosis(es). . ?Surgical Pathology DIAGNOSIS A - Descending colon polyp 3mm, excision: - ??Tubular adenoma. CR-PX Electronically signed by: ?Michelle MUNOZ, Eduard Verified: ??05/14/2021 15:49 ??Pathologist Performed at: ??-[facility] Dept. of Pathology, [place], [place] SPECIMEN(S) SUBMITTED A - Descending colon [...] labeled A1. ??pps 05/14/2021 3:49 PM EST [facility] GI Biopsy 05/12/2021 2:59 PM EST 05/12/2021 2:59 PM EST Nicky Bray MD PATHOLOGY/CYTOLOGY O RDERALUIS DANIEL Performing Organization Address [facility]/ZIP Co de Phone Number [facility] [place] [address] * COLONOSCOPY (05/12/2021 2:18 PM EST) COLONOSCOPY [facility] Endoscopy Procedure Date: 05/12/2021 2:18 PM ? Patient Name: Nain Mckeon ? Date of : 1950 ? Age: 70 ? Order #: [id number] ? Instrument Name: [id number] ? Procedure: ? Colonoscopy Indications: ? Screening patient at increased risk: ? Family history of 1st-degree relative ? with colorectal cancer at age 60 ? years (or older) Providers: ? Nicky Bray MD, Sav Platt ? Ivon Angel, Assistant Manager Trainee Referring MD: ?Celio Sanders MD Medicines: ? [...] preparation was ? evaluated using the BBPS ([place] ? Bowel Preparation Scale) with scores ? [...] Procedure Code(s): ?? --- Professional --- ? 78834, Colonoscopy, flexible; with ? removal of tumor(s), polyp(s), or ? other lesion(s) by snare technique CPT copyright 2019 [place] [employer]. All rights reserved. The codes documented in this report are preliminary and upon sales merchandise associate review may be revised to meet current [...] CRNA) documented in this encounter Care Teams Metaphysics Teacher Relationship Specialty Start Date End Date Celio Sanders MD [address] [place] [address] PCP - General Internal Medicine 05/19/16 documented as of this encounter
--- OUTSIDE RECORDS SUMMARY | 2023-10-12 02:43 | XMS_ITS | Encounter Summary ---
[place] [address] Care Team Providers Care Staff Auditor Name Role Phone Celio Sanders MD Primary Care Provider Reason for Referral * Diagnostic Test (Routine) - Closed Specialty Diagnoses / Procedures Referred By Contac t Referred To Contact Radiology Diagnoses Malignant neoplasm of prostate Procedures NM PET CT PSMA Prostate (Illuccix) Rama Ramos GENERAL OPERATIONS AGENT [facility] [address] [place] [address] Referral ID Status Reason Start Date Expiration Date V isits Requested Visits Authorized [id number] Closed Specialty Service Requested 10/12/2022 04/14/2024 1 2 Reason for Visit * Diagnostic Test (Routine) - Closed Specialty Diagnoses / Procedures Referred By Contac t Referred To Contact Radiology Diagnoses Malignant neoplasm of prostate Procedures NM PET CT PSMA Prostate (Illuccix) Rama Ramos GENERAL OPERATIONS AGENT [facility] [address] [place] [address] Referral ID Status Reason Start Date Expiration Date V isits Requested Visits Authorized [id number] Closed Specialty Service Requested 10/12/2022 04/14/2024 1 2 Encounter Details Date Type Department Care Team (Latest Contact Info) Description 11/09/2022 1:29 PM EDT - 11/09/2022 11:59 PM EDT Hospital Encounter [place] [address] Rama Ramos APRN [facility] [place] [address] Malignant neoplasm of prostate Discharge Disposition: Home [...] 1:30 PM EDT Office Visit Hematology/Oncology at [address] [phone] Bisi Cheng APRN [facility] [place] [address] documented as of this encounter Procedures Procedure [...] Thank you for referring this patient to [facility]. I have personally reviewed the [...] who have questions please contact the health child care education coordinator that requested your imaging first. ? Electronically signed by: Matthew Price MD, [facility] ([phone]), at 11/09/2022 4:44 PM Narrative 11/09/2022 4:44 [...] Thank you for referring this patient to [facility]. I have personally reviewed the image(s) and the resident's interpretationand agree with the findings, Matthew Price MD at 11/09/2022 4:44 PM Thank you for letting us participate in the care of this patient. If youare a health care provider and have any questions regarding this report,please contact the number below. For patients who have questions please contactthe health child care education coordinator that requested your imaging first. Electronically signed by: Matthew Price MD, [facility]([phone]), at 11/09/2022 4:44 PM Rama Ramos GENERAL OPERATIONS AGENT IMG PET ORDERABLES documented in this encounter Visit Diagnoses Diagnosis Malignant neoplasm of prostate documented in this encounter Administered Medications Inactive Administered Medications - up to 3 most recent administrations Medication Order MAR Action Action Date Dose Rate Site Ga 68 psma-11 (Illuccix) injection 4-10 mCi 4-10 mCi, Intravenous, ONCE, 1 dose, On 11/09/22 at 1415, Radiology Contrast, Routine Given 11/09/2022 1:42 PM EDT 7.9 mCi Right Arm documented in this encounter Care Teams Staff Auditor Relationship Specialty Start Date End Date Celio Sanders MD [address] [place] [address] PCP - General Internal Medicine 05/19/16 documented as of this encounter
--- OUTSIDE RECORDS SUMMARY | 2023-10-12 02:43 | XMS_ITS | Encounter Summary ---
Author Organization [facility] [place] [address] Care Team Providers Care Frozen Pie Maker Name Role Phone Celio Sanders MD Primary Care Provider [phone] Encounter Details Date Type Department Care Team (Late Contact Info) Description 05/31/2022 Orders Only [place] [address] Rama Ramos [facility] [place] [address] Malignant neoplasm of prostate (Primary Dx) Social [...] PM EDT Office Visit Hematology/Oncology at [address] [phone] Bisi Cheng [facility] [place] [address] documented as of this encounter Visit Diagnoses Diagnosis Malignant neoplasm of prostate- Primary documented in this encounter Care Teams Frozen Pie Maker Relationship Specialty Start Date End Date Celio Sanders MD [address] [place] [address] PCP - General Internal Medicine 05/19/16 documented as of this encounter
--- OUTSIDE RECORDS SUMMARY | 2023-10-12 02:44 | XMS_ITS | Encounter Summary ---
Author Organization [facility] [place] [address] Care Team Providers Care Chocolate Maker Name Role Phone Celio Sanders MD Primary Care Provider Encounter Details Date Type Department Care Team (Late Contact Info) Description 07/02/2020 Orders Only Hematology/Oncology at [address] [phone] Swathi Uriostegui [address] HEMATOLOGY ONCOLOGY [place], [place] [phone] Prostate cancer metastatic to intrapelvic lymph node; BRCA2 positive; Malignant neoplasm of prostate Social History Tobacco [...] 1:30 PM EDT Office Visit Hematology/Oncology at [address] [phone] Bisi Cheng [facility] [place] [address] documented as of this encounter Visit Diagnoses Diagnosis 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
--- OUTSIDE RECORDS SUMMARY | 2023-10-12 02:44 | XMS_ITS | Encounter Summary ---
Author Organization [facility] [place] [address] Care Team Providers Care Lyft Driver Name Role Phone Celio Sanders MD Primary Care Provider [phone] Reason for Referral * Surgical (Urgent) - Closed Specialty Diagnoses / Procedures Referred By Tess de la rosa Referred To Contact Gastroenterology Diagnoses BRCA gene mutation positive Remy Barillas MD [facility] [place] [address] [facility] Endoscopy [address] [place] [address] Referral ID Status Reason Start Date Expiration Date Visits Re quested Visits Authorized [id number] Closed 02/03/2021 02/03/2022 1 1 Encounter Details Date Type Department Care Team (Late st Contact Info) Description 02/03/2021 Orders Only [place] [phone] Remy Barillas MD [facility] [place] [address] BRCA gene mutation positive Social History Tobacco [...] 1:30 PM EDT Office Visit Hematology/Oncology at [address] [phone] Bisi Cheng APRN [facility] [place] [address] Scheduled Referrals Name Type Priority Associated Diagnoses Order Schedule REFERRAL TO COLONOSCOPY PROCEDURE Outpatient Referral Routine BRCA gene mutation positive Ordered: 02/03/2021 documented as of this encounter Visit Diagnoses Diagnosis BRCA gene mutation positive documented in this encounter Care Teams Lyft Driver Relationship Specialty Start Date End Date Celio Sanders MD [address] [place] [address] PCP - General Internal Medicine 05/19/16 documented as of this encounter
--- OUTSIDE RECORDS SUMMARY | 2023-10-12 02:44 | XMS_ITS | Encounter Summary ---
Author Organization [facility] Address [facility] [place] [address] Care Team Providers Care Electrical Contacts Adjuster Name Role Phone Celio Sanders MD Primary Care Provider [phone] Encounter Details Date Type Department Care Team (Late st Contact Info) Description 01/16/2021 11:00 AM EST Office Visit Hematology/Oncology at [address] [phone] Remy Barillas MD [facility] [place] [address] Swathi Uriostegui APRN [address] [place] [address] DR HEMATOLOGY ONCOLOGY [place], [place] [phone] Malignant neoplasm of prostate; Vitamin D deficiency Social History Tobacco Use Types Packs/Day Years [...] documented in this encounter Progress Notes * Remy Barillas MD - 01/16/2021 11:00 AM EST Subjective: Patient ID: Nain Mckeon is 70 y.o. Problem List: 1. Prostate cancer, cT2b, N1 A. Presented with hematuria TRUS prostate biopsies 04/2016 - Adenocarcinoma in 5/12 cores (all on right side), T2b, [place] 8 Darlyn-neural invasion present PSA - 47.5 [...] negative 9. Genetic testing 03/2018 - Result: [facility]'s Common Hereditary Cancers Panel showed that Nain carries a pathogenic variant (mutation) in BRCA2 specifically c.1929del(p.Cxi068Jphch15). This result is consistent with a diagnosis [...] BRCA2, BRIP1, CDH1, CDK4, CDKN2A (p14ARF), CDKN2A (l64AMQ7k), CHEK2, CTNNA1, DICER1, EPCAM (EPCAM: Deletion/duplication testing [...] the AXIN2 and CTNNA1 genes, specifically c.1531A>T (p.Coa331Iyu) and c.515A>T (p.Bzr325Btz), were detected. ? Interpretation: The most significant consequences of carrying a pathogenic variant in BRCA2 are increased risks forbreast cancer and ovarian cancer in women. For men, the most significant consequence is for prostate cancer so this finding is felt to be related to Nain's cancer. Other cancers associated with QUUG5bzo breast cancer in men, pancreatic, and melanoma. [...] with them. ?? Nain's sons live in [place] and [place]. They can go to the website of [...] the gene with no increased cancer risks. [employer] is continually collecting and analyzing their data, [...] and mailing address stay updated in the [facility] system, in order for us to [...] in the future, Dr. Ara Mary, a machine repair person at [facility] in [place], is willing to discuss these screening options with Nain. Nain can schedule an appointment with her by reaching her laboratory secretary at [phone]. ?? Prostate Cancer Screening for Nain's sons [...] Periodic colonoscopy screening as recommended by Nain's machine repair person. ?? HPI Nain Mckeon is seen in f/u of prostate cancer. On presentation today, he is accompanied by his Yaneth. He seems to be doing pretty well overall. He has had some mood problems but has started to swim every day for the past 6-8 weeks and that has helped. The walk a lot also with their two dogs. His weight is a couple of pounds lower than it was in October. He appetite is good. No particular areas of pain. His urinary habits are stable. He has nocturia, maybe once a night, less than it had been the last time I saw him. Soc Hx: , lives in [place], [place]. He goes to [place] from December to June. 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 This is worrisome although does not yet meet criteria for biochemical recurrence in men treated with radiation therapy +/- ADT. I will continue to follow him and will plan to see him in three monthswith a PSA. Labs in October showed Vit D deficiency. I asked him to start 1000 mg/day. Will recheck the level atthe time of the next visit. Given his personal and family history, we made a referral to our Familial Cancer Program. In 03/2019genetic testing was performed and showed a pathogenic mutation in BRCA2. The recommendations based on this are summarized in the problem list above. Although patients with BRCA mutations may benefit from therapy with PARP inhibitors, there is no role in the absence of metastatic disease, as in the c urrent setting (the indication is in castrate resistant metastatic disease). Genetic testing would be recommended for his sons and sister and he has discussed this with them. For him personally, it is recommended that a mammogram be considered. Periodic skin exams and colonoscopy were also recommended. Because of the family history of pancreatic cancer, the option of discussing screening with was mentioned by the Genetics team and he opted not do that at this time. He thinks it has been 10 years since the last colonoscopy but is going to check on that. Although he has high riskprostate cancer, he does not at this time [...] PM EDT Office Visit Hematology/Oncology at [address] [phone] Bisi Cheng APRN [facility] [place] [address] documented as of this encounter Visit Diagnoses Diagnosis Malignant neoplasm of prostate Vitamin D deficiency Unspecified vitamin D deficiency documented in this encounter Care Teams Electrical Contacts Adjuster Relationship Specialty Start Date End Date Celio Sanders MD [address] [place] [address] PCP - General Internal Medicine 05/19/16 documented as of this encounter
--- OUTSIDE RECORDS SUMMARY | 2023-10-12 02:44 | XMS_ITS | Encounter Summary ---
[place] [address] Care Team Providers Care Culinary Arts Teacher Name Role Phone Celio Sanders MD Primary Care Provider [phone] Reason for Visit * Reason Comments Injections Lupron * Treatment/Therapy Plan Authorization (Routine) - Closed Specialty Diagnoses / Procedures Referred By Contac t Referred To Contact Diagnoses Prostate cancer metastatic to intrapelvic lymph node Gael Anderson MD [address] [place] [address] [facility] Hem Onc Office [address] [place] [phone] Referral ID Status Reason Start Date Expiration Date Visits Re quested Visits Authorized [id number] Closed 11/15/2017 11/15/2018 1 1 Encounter Details Date Type Department Care Team (Late st Contact Info) Description 11/16/2018 2:30 PM EDT Infusion Hematology Oncology at [address] [phone] Prostate cancer metastatic to intrapelvic [...] as of this encounter Progress Notes * Caio Venegas RN - 11/16/2018 2:30 PM [...] PM EDT Office Visit Hematology/Oncology at [address] [phone] Bisi Cheng APRN [facility] [place] [address] documented as of this encounter Visit Diagnoses Diagnosis Prostate cancer metastatic to intrapelvic lymph node documented in this encounter Administered Medications Inactive Administered Medications - up to 3 most recent administrations Medication Order MAR Action Action Date Dose Rate Site leuprolide (LUPRON DEPOT) injection 22.5 mg 22.5 mg, Intramuscular, ONCE, 1 dose, On Colleen 11/16/18 at 1400, Routine, This agent is restricted to outpatient use. Is this drug being given as an outpatient? Yes Given 11/16/2018 1:53 PM EDT 22.5 mg Right Gluteal documented in this encounter Care Teams Culinary Arts Teacher Relationship Specialty Start Date End Date Celio Sanders MD [address] [place] [address] PCP - General Internal Medicine 05/19/16 documented as of this encounter
--- OUTSIDE RECORDS SUMMARY | 2023-10-12 02:44 | XMS_ITS | Encounter Summary ---
Author Organization [facility] Address [facility] [place] [address] Care Team Providers Care Intranet Specialist Name Role Phone Celio Sanders MD Primary Care Provider [phone] Encounter Details Date Type Department Care Team (Late st Contact Info) Description 11/16/2018 1:30 PM EDT Office Visit Hematology/Oncology at [address] [phone] Yeni Gallardo APRN [address] [place] [phone] Prostate cancer metastatic to intrapelvic lymph node [...] 37.1 ??C (98.8 ??F) 11/16/2018 1:33 PM ED T Respiratory Rate 20 11/16/2018 1:33 PM EDT Oxygen Saturation 97% 11/16/2018 1:33 PM EDT Inhaled Oxygen Concentration - - Weight 84.3 kg (185 lb 12.8 oz) 11/16/2018 1:33 PM EDT Height - - Body Mass Index 32.91 08/06/2017 8:00 PM EDT documented in this encounter Progress Notes * Yeni Gallardo Brianna, STOCK SHAPER - 11/16/2018 1:30 PM EDT Subjective: Patient ID: Nain Mckeon is a 68 y.o. male. Problem List: 1. Prostate cancer, cT2b, N1 A. Presented with hematuria TRUS prostate biopsies 04/2016 - Adenocarcinoma in 5/12 cores (all on right side), T2b, [place] 8 Darlyn-neural invasion present PSA - 47.5 [...] would also like to know how much longerhe'll be on the Lupron injections. He denies [...] prior to Lupron injection. Yeni Gallardo, MSN, STOCK SHAPER, AOCNP documented in this encounter Plan of Treatment Upcoming Encounters Date Type Department Care Team (Late st Contact Info) Description 10/24/2023 1:30 PM EDT Office Visit Hematology/Oncology at [address] [phone] Bisi Cheng APRN [facility] [place] [address] documented as of this encounter Visit Diagnoses Diagnosis Prostate cancer metastatic to intrapelvic lymph node documented in this encounter Care Teams Intranet Specialist Relationship Specialty Start Date End Date Celio Sanders MD [address] [place] [address] PCP - General Internal Medicine 05/19/16 documented as of this encounter
--- OUTSIDE RECORDS SUMMARY | 2023-10-12 02:44 | XMS_ITS | Encounter Summary ---
[place] [address] Care Team Providers Care Major Assembly Lineman Name Role Phone Celio Sanders MD Primary Care Provider [phone] Reason for Visit * Reason Onset Date Comments Prior Authorization 08/08/2017 NO AUTH REQU IRED FOR PSYI Encounter Details Date Type Department Care Team (Late st Contact Info) Description 08/08/2017 [place] [phone] Edson Ferguson Prior Authorization (NO AUTH REQUIRED FOR PSYI) Social History Tobacco Use Types Packs/Day Years [...] encounter Miscellaneous Notes * Telephone Encounter - Edson Ferguson - 08/08/2017 9:20 AM EDT AUTH NOT NEEDED Insurance Verified: MEDICARE SUPPLE,MENT Insurance Effective To/From Dates: 04/21/15 TO CPT/J-Code(s): NA Description of Procedure: PSYI Call Reference Number: MARION Spoke With: AUTOMATED LINE Patient Class: IPI Patient Class Change Requirements: MARION Notes: I CALLED , THIS IS A MEDICARE SUPPLEMENT PLAN, NO AUTH IS REQUIRED documented in this encounter Plan of Treatment Upcoming Encounters Date Type Department Care Team (Late st Contact Info) Description 10/24/2023 1:30 PM EDT Office Visit Hematology/Oncology at [address] [phone] Bisi Cheng APRN [facility] [place] [address] documented as of this encounter Visit Diagnoses Not on filedocumented in this encounter Care Teams Major Assembly Lineman Relationship Specialty Start Date End Date Celio Sanders MD [address] [place] [address] PCP - General Internal Medicine 05/19/16 documented as of this encounter
--- OUTSIDE RECORDS SUMMARY | 2023-10-12 02:44 | XMS_ITS | Encounter Summary ---
Author Organization [facility] Address [place] [address] Care Team Providers Care Errand Runner Name Role Phone Celio Sanders MD Primary Care Provider [phone] Encounter Details Date Type Department Care Team (Late st Contact Info) Description 06/30/2020 1:30 PM EDT Office Visit Hematology/Oncology at [address] [phone] Swathi Uriostegui APRN [address] [place] [address] DR HEMATOLOGY ONCOLOGY [place], [place] [phone] Prostate cancer metastatic to intrapelvic lymph node; Malignant neoplasm of prostate; BRCA2 positive Social History Tobacco Use Types Packs/Day [...] 35.9 ??C (96.7 ??F) 06/30/2020 1:26 PM ED T Respiratory Rate 20 06/30/2020 1:26 PM EDT Oxygen Saturation 97% 06/30/2020 1:26 PM EDT Inhaled Oxygen Concentration - - Weight 82.4 kg (181 lb 9.6 oz) 06/30/2020 1:26 P M EDT Height 160 cm (5' 2.99) 06/30/2020 1:26 PM EDT Body Mass Index 32.18 06/30/2020 1:26 PM EDT documented in this encounter Progress Notes * Swathi Uriostegui, GUM MACHINE FILLER - 06/30/2020 1:30 PM EDT Subjective: Patient [...] a pathogenic variant (mutation) in BRCA2 specifically c.1929del(p.Gek925Cihrz15). 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 At the time of the appointment,??Tasiawas provided with a printed copy of his??test result and an informational packet addressing a positive test result. ?? The following??47??genes were evaluated for sequence changes and exonic deletions/duplications: APC, RUMA, AXIN2, BARD1, BMPR1A, BRCA1, BRCA2, BRIP1, CDH1, CDK4, CDKN2A (p14ARF), CDKN2A (a71HFU2d), CHEK2, CTNNA1, DICER1, EPCAM (EPCAM: Deletion/duplication testing [...] (VUS) in the AXIN2 and CTNNA1??genes, specifically c.1531A>T(p.Ojh981Pft) and c.515A>T (p.Gqy322Bpc), were??detected. ? Interpretation: The most significant consequences [...] to share this information with them. ?? Nani's sons live in [place] and [place]. ??They can go to the [...] and mailing address stay updated in the [facility] system, in order for us to reach [...] possibility in the future,??Dr. Ara Mary, a quiller tender at [facility] in [place], is willing to discuss these screening options with Nain.??Nain??can schedule an appointment with her by reaching her secretary of state at [phone]. ?? Prostate Cancer Screening for Nain's sons ? Prostate cancer screening starting at age 40.?If either of them is found to not have the BRCA2 mutation then they can consider screening beginning at age 50 which is the recommendation for menin the general population ?? Skin cancer screening ?? Periodic skin exams ?? Colon cancer screening ?? Periodic colonoscopy screening as recommended by??Nain's quiller tender. ?. ??SUMMARY ASSESSMENT/PLAN 07/24 He was diagnosed with prostate cancer in 2017 after presenting with hematuria and found to have an abnormal prostate gland on exam. TRUS prostate bx showed adenocarcinoma in 5/12 cores, all on the right. [place] score was 8 in two of the [...] PSA. ? Soc Hx: , lives in [place], [place]. He goes to [place] from December to June. 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 Fam Hx: Father with prostate [...] as summarized above.) Nain returns to the [facility] oncology clinic in [facility] today for follow up surveillance visit with PSA review. His last Lupron injection was 04/26. Nain says he feels really good. His energy is good and he continues to take long walks daily with his dogs. He feels his depression recovery is continuing to go well. He also works out regularly at [employer] [facility] [employer] and is looking forward to participating in [...] LEVOTHYROXINE SODIUM (LEVOTHROID ORAL) ??? FluZONE High-Dose 2018-20, PF, 180 mcg/0.5 [...] returns to the [facility] oncology clinic in [facility] today for followup surveillance visit with PSA review. He has no physical complaints and is feeling mentally well following a major depressive episode that [...] 1:30 PM EDT Office Visit Hematology/Oncology at [address] [phone] Bisi Cheng APRN [facility] [place] [address] documented as of this encounter Visit Diagnoses Diagnosis Prostate cancer metastatic to intrapelvic lymph node Malignant neoplasm of prostate BRCA2 positive Genetic susceptibility to malignant neoplasm of breast documented in this encounter Care Teams Errand Runner Relationship Specialty Start Date End Date Celio Sanders MD [address] [place] [address] PCP - General Internal Medicine 05/19/16 documented as of this encounter
--- OUTSIDE RECORDS SUMMARY | 2023-10-12 02:44 | XMS_ITS | Encounter Summary ---
Author Organization [facility] Address [facility] [place] [address] Care Team Providers Care Sanding Machine Operator Name Role Phone Celio Sanders MD Primary Care Provider [phone] Encounter Details Date Type Department Care Team (Late st Contact Info) Description 12/28/2019 2:30 PM EDT Office Visit Hematology/Oncology at [address] [phone] Remy Barillas MD [facility] [place] [address] Swathi Uriostegui APRN [address] [place] [address] DR HEMATOLOGY ONCOLOGY [place], [place] [phone] Prostate cancer metastatic to intrapelvic lymph node [...] 36.1 ??C (96.9 ??F) 12/28/2019 2:37 PM ED T Respiratory Rate 18 12/28/2019 2:37 PM EDT Oxygen Saturation 98% 12/28/2019 2:37 PM EDT Inhaled Oxygen Concentration - - Weight 80.2 kg (176 lb 12.8 oz) 12/28/2019 2:37 PM EDT Height 160 cm (5' 2.99) 12/28/2019 2:37 PM EDT Body Mass Index 31.33 12/28/2019 2:37 PM EDT documented in this encounter Progress Notes * Swathi Uriostegui, KENNY - 12/28/2019 2:30 PM [...] 5/12 cores (all on right side), T2b, Gary 8 Darlyn-neural invasion present PSA - 47.5 [...] a pathogenic variant (mutation) in BRCA2 specifically c.1929del(p.Chu573Lnest15). 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 At the time of the appointment,??Tasiawas provided with a printed copy of his??test result and an informational packet addressing a positive test result. ?? The following??47??genes were evaluated for sequence changes and exonic deletions/duplications: APC, RUMA, AXIN2, BARD1, BMPR1A, BRCA1, BRCA2, BRIP1, CDH1, CDK4, CDKN2A (p14ARF), CDKN2A (r19NVM6p), CHEK2, CTNNA1, DICER1, EPCAM (EPCAM: Deletion/duplication testing [...] (VUS) in the AXIN2 and CTNNA1??genes, specifically c.1531A>T(p.Htr586Tuc) and c.515A>T (p.Dbq802Uhe), were??detected. ? Interpretation: The most significant consequences [...] with them. ?? Nain's sons live in [place] and [place]. ??They can go to the website of [...] and mailing address stay updated in the [facility] system, in order for us [...] as another good reason, among many others, for??Nani??not to engage in either activity. Family members, [...] possibility in the future,??Dr. Ara Mary, a bottoming room inspector at [facility] in [place], is willing to discuss these screening options with Nain.??Nain??can schedule an appointment with her by reaching her personal secretary at [phone]. ?? Prostate Cancer Screening for Nain's sons ? Prostate cancer screening starting at age 40.?If either of them is found to not have the BRCA2 mutation then they can consider screening beginning at age 50 which is the recommendation for menin the general population ?? Skin cancer screening ?? Periodic skin exams ?? Colon cancer screening ?? Periodic colonoscopy screening as recommended by??Nain's bottoming room inspector. ?. ??SUMMARY ASSESSMENT/PLAN 07/24 He was diagnosed [...] PSA. ? Soc Hx: , lives in [place], [place]. He goes to [place] from December to June. 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 Fam Hx: Father with prostate cancer [...] returns to the [facility] oncology clinic in [facility] today for follow up surveillance visit with PSA review. His last Lupron injection was 04/26. Nain reports he recently had a major depressive episode and is currently living in transitional housing following an inpatient stay at the [facility] about 3 weeks ago. Nain says he is feeling physically well today and emotionally much improved. He [...] Sust. Release 24 hr ??? FluZONE High-Dose , PF, 180 mcg/0.5 mL Syringe ??? UNABLE [...] as summarized above.) Nain returns to the [facility] oncology clinic in [facility] today for follow up surveillance [...] 1:30 PM EDT Office Visit Hematology/Oncology at [address] [phone] Bisi Cheng APRN [facility] [place] [address] documented as of this encounter Visit Diagnoses Diagnosis Prostate cancer metastatic to intrapelvic lymph node documented in this encounter Care Teams Sanding Machine Operator Relationship Specialty Start Date End Date Celio Sanders MD [address] [place] [address] PCP - General Internal Medicine 05/19/16 documented as of this encounter
--- OUTSIDE RECORDS SUMMARY | 2023-10-12 02:44 | XMS_ITS | Encounter Summary ---
Author Organization [facility] [place] [address] Care Team Providers Care Machine Loader Name Role Phone Celio Sanders MD Primary Care Provider [phone] Reason for Visit * Reason Onset Date Comments Results 04/04/2019 BRCA2 mutation Encounter Details Date Type Department Care Team (Late st Contact Info) Description 04/04/2019 Telephone [place]ematology [place] [phone] [facility] [address] Results (BRCA2 mutation) Social History Tobacco Use Types Packs/Day Years [...] encounter Miscellaneous Notes * Telephone Encounter - Eden Copeland [facility] - 04/04/2019 4:05 PM EST I called to let Nain know that his genetic testing revealed a BRCA2 pathogenic mutation. He also had variants of uncertain significance in the AXIN2 and CTNNA1 genes. Men with a BRCA2 mutation have about a 20% risk for developing prostate cancer so this likely is related to Nain's diagnosis. This finding may also have treatment implications for him. Shelbie, the [facility] admin secretary will call Nain tomorrow afternoon (when [...] 1:30 PM EDT Office Visit Hematology/Oncology at [address] [phone] [address]isi [address]N [facility] [place] [address] documented as of this encounter Visit Diagnoses Not on filedocumented in this encounter Care Teams Machine Loader Relationship Specialty Start Date End Date Celio Sanders MD [address] [place] [address] PCP - General Internal Medicine 05/19/16 documented as of this encounter
--- OUTSIDE RECORDS SUMMARY | 2023-10-12 02:44 | XMS_ITS | Encounter Summary ---
Author Organization [facility] [place] [address] Care Team Providers Care Art Museum Aide Name Role Phone Celio Sanders MD Primary Care Provider [phone] Reason for Visit * Reason Comments Prostate Cancer Encounter Details Date Type Department Care Team (Late st Contact Info) Description 11/15/2017 2:00 PM EDT Office Visit Hematology/Oncology at [address] [phone] Gael Anderson MD [address] [place] [phone] Prostate cancer metastatic to intrapelvic lymph node [...] 36.6 ??C (97.9 ??F) 11/15/2017 2:06 PM ED T Respiratory Rate 18 11/15/2017 2:06 PM EDT Oxygen Saturation 99% 11/15/2017 2:06 PM EDT Inhaled Oxygen Concentration - - Weight 80.9 kg (178 lb 6.4 oz) 11/15/2017 2:06 P M EDT Height - - Body Mass Index 31.6 08/06/2017 8:00 PM EDT documented in this encounter Progress Notes * Gael Anderson MD - 11/15/2017 2:00 PM [...] size. In addition perineural invasion was noted. On05/12/16 he completed staging with a CT of the abdomen and pelvis that showed a 3.4 cm (craniocaudad)enlarged right internal iliac lymph node. He started ADT with Lupron and Casodex on May 312016. XRT was commenced on August 24, 2016. Interval history: Mr. Mckeon is in clinic for follow-up appointment on prostate cancer. He followed[place] oncologist in [place] initiated abiraterone 250 mg daily with low-fat diet and prednisone 5 mg a day about 4 weeks ago. There is underlying bipolar disorder who became out of control on the low-dose prednisone and fortunately now off the medication he is now doing better and back home. There are no plans to restart this. Subjective: Nain comes in today for medical oncology follow-up as far as his Lupron injection. He is doing wellwith Lupron injections but does note it is hard for him to put as much muscle on his he has in the past. We did talk about the fact that he still able to do that if he does put enough effort althoughcertainly taking away the testosterone with his Lupron does have an effect on that. He is acceptingof that. We discussed a length of treatment [...] a retired used to work for a [employer] company. He has 2 children. Lives at home with his . Social History Social History ??? Marital status: Spouse name: N/A ??? Number of children: N/A ??? Years of education: N/A Occupational History ??? 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 There is no appreciable ascites Extremities: Extremities normal, atraumatic, [...] BMI 31.6 kg/m2 Pathology: 05/17/16 Extradepartmental number: ??[id number]; collection date, 04/27/2016. A - Prostatic core needle biopsy, right lateral base: ? 1. Adenocarcinoma, grade group 3, Andre grade 4+3, ?involving 95% of the biopsy core. ? 2. Perineural invasion identified. B - Prostatic core needle biopsy, right medial base: ? 1. Adenocarcinoma, grade group 3, [place] grade 4+3, ?involving 95% of the biopsy core. ? 2. Perineural invasion identified. C - Prostatic core needle biopsy, right mid lateral: ? Adenocarcinoma, grade group 4, Andre grade 4+4, ? involving 90% of the biopsy core. D - Prostatic core needle biopsy, right mid medial: ? 1. Adenocarcinoma, grade group 4, [place] grade 4+4, ?involving 40% of the biopsy core. ? 2. Perineural invasion identified. E - Prostatic core needle biopsy, right lateral apex: ? Benign prostatic tissue. F - Prostatic core needle biopsy, right medial apex: ? Adenocarcinoma, grade group 3, [place] grade 3+4, ? involving 25% of the [...] calcium of 9.2 ALP of 92 PSA ofless than 0.1. CBC shows white count of 4.98 hemoglobin 13.9 hematocrit 41.4 and platelet count of 242 Assessment and Plan: Nain has a high risk prostate cancer status post radiation and ADT. At the current time he is made a decision to get off of the Abiraterone both [...] do some exercising and fortunately he does stillswimming at her local swimming pool. I think [...] PM EDT Office Visit Hematology/Oncology at [address] [phone] Bisi Cheng APRN [facility] [place] [address] documented as of this encounter Visit Diagnoses Diagnosis Prostate cancer metastatic to intrapelvic lymph node documented in this encounter Care Teams Art Museum Aide Relationship Specialty Start Date End Date Celio Sanders MD [address] [place] [address] PCP - General Internal Medicine 05/19/16 documented as of this encounter
--- OUTSIDE RECORDS SUMMARY | 2023-10-12 02:44 | XMS_ITS | Encounter Summary ---
Author Organization [facility] Address [facility] [place] [address] Care Team Providers Care Fuel Truck Driver Name Role Phone Celio Sanders MD Primary Care Provider [phone] Reason for Visit * Reason Comments Genetic Evaluation * Consultation (Routine) - Closed Specialty Diagnoses / Procedures Referred By Contkulwant t Referred To Contact Hematology and Oncology Diagnoses Malignant neoplasm of prostate Remy Barillas MD [facility] [place] [address] St Hem Onc Office [address] [place] [phone] Referral ID Status Reason Start Date Expiration Date V isits Requested Visits Authorized [id number] Closed Consult, Test & Treat 08/18/2018 08/18/2019 1 1 Encounter Details Date Type Department Care Team (Late st Contact Info) Description 03/28/2019 1:30 PM EST Office Visit Hematology [place] [phone] Eden Copeland, [facility] HEMATOLOGY/[place] [address] Prostate cancer metastatic to intrapelvic lymph node [...] as of this encounter Progress Notes * Eden Copeland [facility] - 03/28/2019 1:30 PM EST Nain Mckeon was seen by LYNNE Burns in consultation at the request of Remy Barillas to advise regarding possible heritable predisposition to cancer. I spent 35 minutes of this face to face encounter with the patient and his gathering medical and family history and discussing the likelihood of a genetic predisposition to cancer and the optionof genetic testing. Reason for referral/Chief complaint Personal [...] would be found to have a mutation cheo cancer predisposition gene is high enough to [...] the family. Nain opted for testing with [employer]'s Common Hereditary Cancers Panel, a next generation sequencing panel that simultaneously analyzes 47 genes, including BRCA1 and BRCA2 which could have treatment implications and that contribute to increased risk for cancer. Nain was consented. His blood sample was drawn and sent to [facility]. Testing will take approximately 3 weeks. Nain will be contacted via telephone once his test resultsbecome available. If positive, we will schedule an [...] PM EDT Office Visit Hematology/Oncology at [address] [phone] Bisi Cheng APRN [facility] [place] [place] [address] documented as of this encounter Results * Research Venipuncture (03/28/2019 2:42 PM EST) Research Venipuncture Drawn [facility] Blood specimen (specimen) 03/28/2019 2:42 PM EST 03/28/2019 3:44 PM EST Narrative Resulting Agency Comment Spec In Lab Tre Walker MD CHEMISTRY ORDERABLES [facility] [place] [address] documented in this encounter Visit Diagnoses Diagnosis Prostate cancer metastatic to intrapelvic lymph node documented in this encounter Care Teams Fuel Truck Driver Relationship Specialty Start Date End Date Celio Sanders MD [address] [place] [address] PCP - General Internal Medicine 05/19/16 documented as of this encounter
--- OUTSIDE RECORDS SUMMARY | 2023-10-12 02:44 | XMS_ITS | Encounter Summary ---
[place] [address] Care Team Providers Care Service Member Name Role Phone Celio Sanders MD Primary Care Provider Encounter Details Date Type Department Care Team (Late Contact Info) Description 02/09/2021 Telephone [place] [phone] Dori Maharaj Social History Tobacco Use Types Packs/Day Years [...] PM EDT Office Visit Hematology/Oncology at [address] [phone] Bisi Cheng APRN [facility] [place] [address] documented as of this encounter Visit Diagnoses Not on filedocumented in this encounter Care Teams Service Member Relationship Specialty Start Date End Date Celio Sanders MD [address] [place] [address] PCP - General Internal Medicine 05/19/16 documented as of this encounter
--- OUTSIDE RECORDS SUMMARY | 2023-10-12 02:44 | XMS_ITS | Encounter Summary ---
Author Organization [facility] Address [facility] [place] [address] Care Team Providers Care Certified Hearing Instrument Dispenser Name Role Phone Celio Sanders MD Primary Care Provider Reason for Referral * Consultation (Routine) - Closed Specialty Diagnoses / Procedures Referred By Contac t Referred To Contact Hematology and Oncology Diagnoses Malignant neoplasm of prostate Remy Barillas MD [facility] [place] [place] [address] [facility] Hem Onc Office [address] [place] [id number] Referral ID Status Reason Start Date Expiration Date V isits Requested Visits Authorized [id number] Closed Consult, Test & Treat 08/18/2018 08/18/2019 1 1 Encounter Details Date Type Department Care Team (Late st Contact Info) Description 08/18/2018 11:00 AM EDT Office Visit Hematology/Oncology at [address] [phone] Remy Barillas MD [facility] [place] [address] Malignant neoplasm of prostate Social History Tobacco [...] EDT Temperature 36.2 ??C (97.1 ??F) 08/18/2018 1 1:08 AM EDT Respiratory Rate 16 08/18/2018 11:0 8 AM EDT Oxygen Saturation 100% 08/18/2018 11: 08 AM EDT Inhaled Oxygen Concentration - - Weight 84.3 kg (185 lb 12.8 oz) 019 11:08 AM EDT Height - - Body Mass Index 32.91 08/06/2017 8:00 PM EDT documented in this encounter Progress Notes * Remy Barillas MD - 08/18/2018 11:00 AM EDT Subjective: Patient ID: Nain Mckeon is a 67 y.o. male. Problem List: 1. Prostate cancer, cT2b, N1 A. Presented with hematuria TRUS prostate biopsies 04/2016 - Adenocarcinoma in 5/12 cores (all on right side), T2b, Andre 8 Dralyn-neural invasion present PSA - 47.5 B. Staging: [...] by his Yaneth. He recently returned from [place] where he is followed by Dr. Coreas. He has been continuing to receive lupron while there. He says heis doing ok. His main complaint is fatigue [...] to urinate. Soc Hx: , lives in [place], [place]. He goes to [place] from December to June. 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 [place] score was 8 in two of the [...] He is due today for a 3 month lupron injection and we will go ahead with that and see him again in three months. Given his personal and family history, we discussed a referral to our Familial Cancer Program and he would like to do that. I will make a referral. documented in this encounter Plan of Treatment Upcoming Encounters Date Type Department Care Team (Late st Contact Info) Description 10/24/2023 1:30 PM EDT Office Visit Hematology/Oncology at [address] [phone] Bisi Cheng APRN [facility] [place] [address] Scheduled Referrals Name Type Priority Associated Diagnoses Orde r Schedule Referral to Familial Cancer Outpatient Referral Routine Malignant neoplasm of prostate Ordered: 08/18/2018 documented as of this encounter Procedures Procedure Name Priority Date/Time Associated Diagnosis Comments LAB SCAN 08/11/2018 12:00 AM EDT documented in this encounter Results * PSA (Ultrasensitive) (03/28/2019 2:42 PM EST) Prostate Specific Antigen (Ultrasensitiv e) <0.01 0.00 - 4.00 ng/mL [facility] Blood specimen (specimen) 03/28/2019 2:42 PM EST 03/28/2019 2:55 PM EST Narrative Resulting Agency Comment Spec In Lab Remy Barillas MD CHEMISTRY ORDERABLES [facility] [place] [address] * Comprehensive metabolic panel (non-fasting) (03/28/2019 2:42 PM EST) Glucose 119 65 - 199 mg/dL [facility] Comment:Diabetes: >=200 mg/d L plus symptoms Blood Urea Nitrogen 19 10 - 20 mg/dL [facility] Creatinine 1.00 0.80 - 1.50 mg/dL [facility] Sodium 143 135 - 145 mmol/L [facility] Potassium 4.1 3.5 - 5.0 mmol/L [facility] Comment: Please note: ??Patients with WBC >100,000 may have falsely elevated Potassium levels. ??For accurate Potassium quantification in these patients send serum separator tube (gold top) for subsequent determinations. ??Contact the Clinical Chemistry Laboratory if there are any questions. Chloride 105 98 - 107 mmol/L [facility] Carbon Dioxide 29 22 - 31 mmol/L [facility] Anion Gap 9 5 - 15 mmol/L [facility] Calcium 9.0 8.5 - 10.5 mg/dL [facility] Protein, Total 7.2 6.1 - 8.0 gm/dL [facility] Albumin 4.4 3.2 - 5.2 gm/dL [facility] Aspartate Aminotransferase 22 0 - 39 unit/L [facility] Alanine Aminotransferase 26 0 - 55 unit/L [facility] Alkaline Phosphatase 75 40 - 130 unit/L [facility] Bilirubin, Total 0.2 0.2 - 1.3 mg/dL [facility] Est Glomerular Filtration Rate 76 >=60 mL/min/1. 73 m?? [facility] Comment: The eGFR was calculated using the CKD-EPI equation. As with all creatinine based estimates of kidney function, eGFR values calculated with the CKD-EPI equation are not accurate in patients with acute kidney failure, extremes of body mass or the acutely ill. [email or web address] eGFR 88 >=60 mL/min/1. 73 m?? [facility] Comment: The eGFR was calculated using the CKD-EPI equation. As with all creatinine based estimates of kidney function, eGFR values calculated with the CKD-EPI equation are not accurate in patients with acute kidney failure, extremes of body mass or the acutely ill. [email or web address] Blood specimen (specimen) 03/28/2019 2:42 PM EST 03/28/2019 2:55 PM EST Narrative Resulting Agency Comment Spec In Lab Remy Barillas MD CHEMISTRY ORDERABLES [facility] [place] [address] * SCAN DOC: LAB (08/11/2018 12:00 AM EDT) Narrative 08/11/2018 12:00 AM EDT Ordered by an unspecified provider. Scanning Provider MEDIA MGR SCAN EXT O RDR/RSLT documented in this encounter Visit Diagnoses Diagnosis Malignant neoplasm of prostate documented in this encounter Care Teams Certified Hearing Instrument Dispenser Relationship Specialty Start Date End Date Celio Sanders MD [address] [place] [address] PCP - General Internal Medicine 05/19/16 documented as of this encounter
--- OUTSIDE RECORDS SUMMARY | 2023-10-12 02:44 | XMS_ITS | Encounter Summary ---
Author Organization [facility] Address [facility] [place] [address] Care Team Providers Care Service Manager Name Role Phone Celio Sanders MD Primary Care Provider [phone] Reason for Visit * Auth/Cert Specialty Diagnoses / Procedures Referred By Contac t Referred To Contact Diagnoses Bipolar disorder, current episode manic without psychotic features, moderate BIPOLAR Procedures PSYI Referral ID Status Reason Start Date Expiration Date Visits Re quested Visits Authorized [id number] 1 1 Encounter Details Date Type Department Care Team (Latest Contact Info) Description 08/06/2017 8:04 PM EDT - 08/15/2017 12:39 PM EDT Hospital Encounter 2 [facility] [place] [id number] David Keen MD [facility] [place] [address] Bipolar II disorder Discharge Disposition: Home Social History Tobacco Use [...] 36.4 ??C (97.5 ??F) 08/15/2017 8:16 AM ED T Respiratory Rate 18 08/15/2017 8:16 AM EDT Oxygen Saturation 99% 08/15/2017 8:16 AM EDT Inhaled Oxygen Concentration - - Weight 78 kg (172 lb) 08/14/2017 8:37 AM EDT Height 160 cm (5' 3) 08/06/2017 8:00 PM EDT Body Mass Index 30.47 08/06/2017 8:00 PM EDT documented in this encounter Discharge Summaries * Jaquan Qureshi MD - 08/15/2017 12:39 PM EDT Discharge Summary Patient Name: Nain Lipscomb Patient Age: 66 y.o. Language: Omani Race: White Ethnicity: Not nor Admit date: [...] 15mg QHS for mood stabilization. Baseline metabolic labs drawn during this admission. Patient would benefit from being on Olanzapine for at least 6 months.Consider tapering over the course of weeks thereafter. Follow fasting glucose, HgA1C, Lipid profileq 2 months for 6 months then annually [...] made the following appointments for you. : [address] [address] Phone: Fax: Ila Hicks APRN: August 23 at 2:30pm Katlyn Brown: September 02 at 1:00pm Mental Health- [facility] [address], [address] [place] [address] Phone: Fax: Dr. David Fleming: August 19 at 12:00pm Inpatient Provider Contact Information: For questions regarding this document (including laboratory or other studies) or issues relating tothis hospitalization, please contact your patient child care provider, RADHA FORD RN, through the [facility] Heart Coordinator . Issues after hours and on weekends will be handled by the psychiatryresident on- call who can be reached through the [facility] Heart Coordinator. Advance Care Plan The patient has an appointed surrogate decision maker: no Name of surrogate decision maker: na The patient has medical advance directives: no The patient has psychiatric advance directives: no All eleven elements of the Transition Record have been reviewed with the patient. Future Appointments and Orders Future Appointments Provider Department Dept Phone 08/23/2017 3:00 PM Gael Anderson MD Hematology/Oncology at [facility] [phone] 08/25/2017 10:30 AM Maria R Mora APRN Radiation Oncology at [facility] [phone] 08/25/2017 11:00 AM [facility] INFUSION, ROOM Hematology Oncology at [facility] [phone] Reason for Hospitalization: safety, stabilization and medication management History of Presentation: As per the 08/06/2017 admission H&P: Nain is a 66yo male with a history of bipolar disorder and prostate cancer who arrived at [facility] by taxi from [facility] after spending the week in [facility] for manic symptoms and being discharged withouta transfer to a psychiatric facility. The patient was a poor historian and much of the history was obtained from the patient's . ?? Nain had his first manic episode in 2003. Since then his brayan has been well controlled with lamictal. He has had some minor manic episodes since then, usually associated with him experimenting with going off of his medication, but none have required hospitalization. In June 2017, while he and hiswife were wintering in [place], an oncologist recommended that he try the [...] flight of ideas. When they returned from [place], thepatient's drove and she was secretly glad he lost his car keys because of his impulsivity. ?? The patient's went to [place] for a bridal shower, and while the patient was alone he feltscared at home and checked himself into [facility]. He sought voluntary transfer to a psychiatric facility but was unsuccessful and was eventually discharged Tuesday. Tuesday night he was still afraid and paranoid, and after a discussion with his psychiatrist he took a taxi to [facility] to be admitted to out psych unit. ?? There was some confusion at first about whether he was manic or delirious. Medicine was not concerned about delirium, and after some sleep he settled down enough to be appropriate for a psych admission. Hospital Course: Nain Lipscomb was voluntarily admitted to inpatient psychiatry [...] irritability, lability, talkativeness, derailment, increase in energy, difficulty sleeping, and expansive affect improved over the course of this admission On the day of discharge, the patient denied thoughts of suicide, homicide, or violence. Follow up was scheduled as described below, and this information was provided to the patient in his After VisitSummary. Patient was also provided with emergency contact [...] 3) (08/06/171999) Weight: 78 kg (172 lb) (08/14/17836) Operations and Procedures: Important Lab Data: Psychiatry [...] Vit Lvls: Lab Results Component Value Date [id number] 744 08/06/2017 SFOLATE >20.0 08/06/2017 UA: No [...] home Primary Care Physician: Celio Sanders MD [phone] Special Physician Instructions: Special Instructions Provided to Nain Lipscomb: Lamotrigine 150mg once daily (For mood [...] any other decline in your overall condition. [facility] Emergency Services: [phone] [facility] Central Access Services: [phone] [facility] Main Line: [phone] Activity level: no restrictions from psychiatry Diet: no restrictions from psychiatry Driving: do not drive if sedated by medications Medications have been reviewed with the patient and the patient understands the use and side effects of these medications as evidenced by discussions on interdisciplinary rounds. Discharge References/Attachments None Discharge Condition/Prognosis: Satisfactory condition. Prognosis is dependent on patient's participation in ongoing treatment and adherence with prescribed medications. Signed: Jaquan Qureshi MD 08/16/2017 Inpatient Provider Contact Information: Emergency Services (Crisis Line): [phone] [facility]: [phone] [facility] Main Line: [phone] Click refresh button immediately prior to signing DCS to ensure all inman are updated. Associated attestation - Swathi Novoa MD - 08/17/2017 10:44 AM EDT This patient was seen by Dr. David Keen on 08/15/17. Please see progress note dated 08/15/17 for complete Mental Status Exam and assessment. Alcohol Use [X] Patient does not meet criteria for unhealthy alcohol use. Tobacco Use [X] Patient is a non-smoker. The patient is ready for discharge with aftercare per AVS. Greater than 30 minutes was spent coordinating discharge for this patient and included vhoy-[id number] and exam, explanation of after visit instructions and medications to the patient and necessary caregivers, documentation, and prescription management. documented in this encounter Discharge Instructions * Discharge Instructions* Radha Ford RN - 08/15/2017 9:59 AM EDT We have made the following appointments for you. : [facility] [address] [place] [address] Phone: Fax: Ila Hicks APRN: August 23 at 2:30pm Katlyn Brown: September 02 at 1:00pm Mental Health- [facility] [address], [address] [place] [address] Phone: Fax: Dr. David Fleming: August 19 at 12:00pm Inpatient Provider Contact Information: For questions regarding this document (including laboratory or other studies) or issues relating tothis hospitalization, please contact your patient child care provider, RADHA FORD RN, through the [facility] Heart Coordinator . Issues after hours and on weekends will be handled by the psychiatryresident on- call who can be reached through the [facility] Heart Coordinator. Advance Care Plan The patient has an appointed surrogate decision maker: no Name of surrogate decision maker: na The patient has medical advance directives: no The patient has psychiatric advance directives: no All eleven elements of the Transition Record have been reviewed with the patient. * Patient Instructions* Jaquan Qureshi MD - 08/15/2017 11:25 AM EDT [...] Vit Lvls: Lab Results Component Value Date [id number] 744 08/06/2017 SFOLATE >20.0 08/06/2017 UA: No [...] home Primary Care Physician: Celio Sanders MD [phone] Special Physician Instructions: Special Instructions Provided to Nain Lipscomb: Lamotrigine 150mg once daily (For mood [...] any other decline in your overall condition. [facility] Emergency Services: [phone] [facility] Central Access Services: [phone] [facility] Main Line: [phone] Activity level: no restrictions from psychiatry Diet: no restrictions from psychiatry Driving: do not drive if sedated by medications Medications have been reviewed with the patient and the patient understands the use and side effects of these medications as evidenced by discussions on interdisciplinary rounds. documented in this encounter Medications at Time of Discharge Medication Sig Dispensed Refills Start Date End Date lamoTRIgine (LAMICTAL) 150 mg Tablet Take 1 tablet by mouth daily. 30 tablet 1 08/15/2017 TURMERIC ROOT EXTRACT ORAL Take 1 capsule by mouth 2 times daily. pravastatin (PRAVACHOL) 40 mg Tablet Take 40 mg by mouth daily. LEVOTHYROXINE SODIUM (LEVOTHROID ORAL) Take 75 mcg by mouth daily. clonazePAM (KLONOPIN) 2 mg Tablet Take 0.5 tablets by mouth nightly as needed for Anxiety. 60 tablet 08/15/2017 12/28/2019 OLANZapine (ZYPREXA) 15 mg Tablet Take 1 tablet by mouth nightly. 30 tablet 08/15/2017 08/18/2018 polyethylene glycol (MIRALAX) 17 gram Powder in Packet Take 17 g by mouth daily as needed. 14 each 08/15/2017 08/18/2018 hydrOXYzine (ATARAX) 50 mg Tablet Take 1 tablet by mouth nightly as needed for Anxiety (sleep. First line as needed for sleep). 30 tablet 08/15/2017 08/18/2018 tamsulosin (FLOMAX) 0.4 mg Capsule, Sust. Release 24 hrIndications:Malignant neoplasm of prostate Take 2 capsules by mouth nightly. 60 tablet 09/24/2016 09/09/2017 documented as of this encounter Progress Notes * Luciano Carey RN - 08/15/2017 12:39 PM EDT Psychiatric Nursing Discharge Note Patient Completed Relapse Prevention Plan: yes Patient aware of follow-up appointments: yes Patient evidences understanding of medication use and regime: yes Patient belongings returned: All except Patient's own medications. Patient left unit with: At what time? 1250 * Radha Taylor MHT - 08/15/2017 10:56 AM EDT Inpatient Daily Group Note Group: Goals Group Reviewed principles of behavioral activation, discussed the importance of recognizing avoidance andhow to work towards having behavior be goal [...] is going home today. TOR GIPSON 08/15/2017 * David Keen MD - 08/15/2017 8:00 AM EDT Psychiatry Inpatient - Progress Note 08/15/2017 ID: Nain Lipscomb is a 66 y.o. male admitted [...] 6 hours, medication compliant, depression 3, anxiety 0,brayan 2-3 (0- none, 10-worst) Review of Systems: [...] hyperverbal and spontaneous ?? Language: fluent in burkinan ?? Mood: I feel pretty good. ?? Affect: bright, full and mood-congruent ?? Thought Process: linear, logical and normal use of abstraction ?? Associations: loose ?? Thought Content: denied homicidal ideation, denied suicidal ideation, no bizarre delusions and no paranoid delusions ?? Perception: denied auditory hallucinations denied [...] functioning ?? Insight: fair ?? Judgment: fair Lanier Suicide Risk Scale (most recently completed): Suicidal [...] INR Thyroid: No results found for: TSH, [id number], TT4 Lipids and HgbA1C: Lab Results Component Value Date CHLPL 169 08/10/2017 HDL 49 08/10/2017 CHOLHDL 3.4 08/10/2017 LDLCHOL 84 08/10/2017 TRIG 182 08/10/2017 Lab Results Component Value Date HA1C 5.6 08/10/2017 Vit Lvls: No results found for: [id number], SFOLATE UA: No results found for: GLUCOSEU, KETONESUA, PROTEINUADIP, BLOODUADIP, LEUKOESTERUA, NITRATEUA, WBCUA (May not represent most recent UA results. See eD-H labs for more details.) Tox: No results found for: ETHANOL, ACTMNPHEN, SALICYLATE, LEAD No results found for: UDAUSCREEN Rx Lvls: No results found for: LITHIUM, CARBAMAZEPIN, VALPROATE, LAMOTRIGINE, CLOZAPINE Assessment: (including Suicide Risk Assessment) Brief Formulation: Nain Lipscomb??is a 66 y.o.??Male??with a history of bipolar disorder and prostate cancer who presents to [facility] with a manic episode in the setting [...] Provided: Patient provided verbal instructions during rounds regarding the treatment plan. I have reviewed and agree with the multidisciplinary treatment plan. Greater than 30 minutes was spent coordinating discharge for this patient and included olhq-nt-rhafmdcooifsq and exam, explanation of after visit instructions and medications to the patient and necessary caregivers, documentation, and prescription management. Signed By: David Keen MD 08/15/2017 * Nanda Bonilla RN - 08/15/2017 12:30 AM EDT Fifteen minute checks maintained this shift. * VeliaMulu MS - 08/14/2017 10:28 AM EDT Inpatient Daily Group Note Group: Goals: Reviewed rules and expectations, daily schedule, patients' progress and goals and read daily text. Attendance: Present Behavior: Relevant Therapeutic Work Observed: Moderate Mood: Calm Notes: Patient has goal to rest, relax, go for walk, latter day, finish pg. 3-4, watch the moldovan open. Plan to invite to all groups. MULU GUNN 08/14/2017 Inpatient Daily Group Note Group: Open discussion: Check-in and discussion about how to stay connected, remember coping skillsand how to not isolate. Attendance: Present Behavior: Expressive Therapeutic Work Observed: Moderate Mood: Calm Notes: patient engaged actively and discussed the stigma and how to stay connected through ups and downs. MULU GUNN 08/14/2017 * Jaquan Qureshi MD - 08/14/2017 10:10 AM EDT Psychiatry Inpatient - Progress Note 08/14/2017 ID: Nain Lipscomb is a 66 y.o. male admitted [...] says has improved. He reports that his sleep has improved. He thinks that the increase in olanzapine has been helpful overall. He feels readyto leave the hospital tomorrow. His goal today [...] hyperverbal and spontaneous ?? Language: fluent in burkinan ?? Mood: Doing better. ?? Affect: bright, full and mood-congruent ?? Thought Process: linear and concrete ?? Associations: intact and loose ?? Thought Content: denied homicidal ideation, denied suicidal ideation, no bizarre delusions and no paranoid delusions ?? Perception: denied auditory hallucinations denied [...] functioning ?? Insight: fair ?? Judgment: fair Lanier Suicide Risk Scale (most recently completed): Suicidal [...] INR Thyroid: No results found for: TSH, L1JMICD, TT4 Lipids and HgbA1C: Lab Results Component Value Date CHLPL 169 08/10/2017 HDL 49 08/10/2017 CHOLHDL 3.4 08/10/2017 LDLCHOL 84 08/10/2017 TRIG 182 08/10/2017 Lab Results Component Value Date HA1C 5.6 08/10/2017 Vit Lvls: No results found for: [id number], SFOLATE UA: No results found for: GLUCOSEU, KETONESUA, PROTEINUADIP, BLOODUADIP, LEUKOESTERUA, NITRATEUA, WBCUA (May not represent most recent UA results. See eD-H labs for more details.) Tox: No results found for: ETHANOL, ACTMNPHEN, SALICYLATE, LEAD No results found for: UDAUSCREEN Rx Lvls: No results found for: LITHIUM, CARBAMAZEPIN, VALPROATE, LAMOTRIGINE, CLOZAPINE Assessment: (including Suicide Risk Assessment) Brief Formulation: Nain Lipscomb??is a 66 y.o.??Male??with a history of bipolar disorder and prostate cancer who presents to [facility] with a manic episode in the setting [...] Provided: Patient provided verbal instructions during rounds regarding the treatment plan. I have reviewed and agree [...] irritable. + improvement since admission. Additional comments: * Nanda Bonilla RN - 08/14/2017 1:34 AM EDT Fifteen minute checks maintained this shift. * Radha Meraz - 08/13/2017 12:42 PM EDT [...] to comments of peers. RADHA MERAZ 08/13/2017 * Shahida Mackay MD - 08/13/2017 12:13 PM EDT Psychiatry Inpatient - Progress Note 08/13/2017 ID: Nain Lipscomb is a 66 y.o. male admitted on 08/06/2017 for brayan. Hospital day 7. Current Working Primary Diagnosis: Bipolar disorder, current episode manic without psychotic features, moderate Pertinent medical issues being addressed: hyperlipidemia, prostate cancer Interval History: (1,1,4) Per Nursing Report: Patient no longer appearing manic. ?? Narrative: Nain slept 8 hours. Rates depression as a 0/10 and Anxiety as a 0/10 and brayan as a 3/10. Denies SI. Feels being in a safe environment, [...] hyperverbal and spontaneous ?? Language: fluent in burkinan ?? Mood: relaxed ?? Affect: constricted ?? Thought Process: linear and concrete ?? Associations: tight ?? Thought Content: denied homicidal ideation, denied suicidal ideation, no bizarre delusions and no paranoid delusions ?? Perception: denied auditory hallucinations denied [...] functioning ?? Insight: fair ?? Judgment: fair Lanier Suicide Risk Scale (most recently completed): Suicidal [...] Vit Lvls: Lab Results Component Value Date [id number] 744 08/06/2017 SFOLATE >20.0 08/06/2017 UA: Lab [...] Assessment: (including Suicide Risk Assessment) Brief Formulation: Nain Lipscomb??is a 66 y.o.??Male??with a history of bipolar disorder and prostate cancer who presents to [facility] with a manic episode in the setting [...] Provided: Patient provided verbal instructions during rounds regarding the treatment plan. I have reviewed and agree with the multidisciplinary treatment plan. I certify that the patient requires inpatient care for psychiatric treatment that could reasonably be expected to improve the patient's condition and/or diagnostic study. Signed By: SHAHIDA MACKAY MD 08/13/2017 * Nanda Bonilla RN - 08/13/2017 3:43 AM EDT Fifteen minute checks maintained this shift. * Jaquan Qureshi MD - 08/12/2017 3:31 PM EDT Psychiatry Inpatient - Progress Note 08/12/2017 ID: Nain Lipscomb is a 66 y.o. male admitted [...] hyperverbal and spontaneous ?? Language: fluent in burkinan ?? Mood: Doing better. ?? Affect: expansive and mood-congruent ?? Thought Process: linear and concrete ?? Associations: loose ?? Thought Content: denied homicidal ideation, denied suicidal ideation, no bizarre delusions and no paranoid delusions ?? Perception: denied auditory hallucinations denied [...] functioning ?? Insight: fair ?? Judgment: fair Lanier Suicide Risk Scale (most recently completed): Suicidal [...] Vit Lvls: Lab Results Component Value Date [id number] 744 08/06/2017 SFOLATE >20.0 08/06/2017 UA: Lab [...] Assessment: (including Suicide Risk Assessment) Brief Formulation: Nain Lipscomb??is a 66 y.o.??Male??with a history of bipolar disorder and prostate cancer who presents to [facility] with a manic episode in the setting [...] Provided: Patient provided verbal instructions during rounds regarding the treatment plan. I have reviewed and agree [...] improve the patient's condition and/or diagnostic study. * Radha Meraz - 08/12/2017 12:28 PM EDT [...] relevant to cycle from his experiences. RADHA D MURALI 08/12/2017 Patient attended the following activities: ____Walk [...] that peer was asking about . When documentation writer shared Importance of pt.'s completing patient satisfaction survey as a way to help promote change he stated it never works. Expressed staff not helping peer enough by going out to purchase items that could benefit his recovery. Pt. encouraged to stay in group but stated he was tooirritated and nurse picked him up from group. RADHA MERAZ 08/12/2017 * Yaima Campbell RN - 08/12/2017 12:46 AM EDT 15 minute safety checks maintained throughout shift. * David Keen MD - 08/11/2017 11:23 AM EDT Psychiatry Inpatient - Progress Note 08/11/2017 ID: Nain Lipscomb is a 66 y.o. male admitted [...] take some responsibility for her actions and thattogether they can sign a commitment to one another. He denied any suicidal ideations. He denied anyside effects from his medication regimen. He reported sleep was good. He endorsed a master plan. Upon additional questioning the plan is to play hard to get from his . Per nursing report - slept 8.5 hours, medication compliant, depression 2, anxiety 2, brayan [...] hyperverbal and spontaneous ?? Language: fluent in burkinan ?? Mood: Doing better. I'd like to work on my discharge plan. ?? Affect: expansive and mood-congruent ?? Thought Process: linear and concrete ?? Associations: loose ?? Thought Content: denied homicidal ideation, denied suicidal ideation, no bizarre delusions and no paranoid delusions ?? Perception: denied auditory hallucinations denied [...] functioning ?? Insight: fair ?? Judgment: fair Lanier Suicide Risk Scale (most recently completed): Suicidal [...] Vit Lvls: Lab Results Component Value Date [id number] 744 08/06/2017 SFOLATE >20.0 08/06/2017 UA: Lab [...] Assessment: (including Suicide Risk Assessment) Brief Formulation: Nain Lipscomb??is a 66 y.o.??Male??with a history of bipolar disorder and prostate cancer who presents to [facility] with a manic episode in the setting [...] Provided: Patient provided verbal instructions during rounds regarding the treatment plan. I have reviewed and agree with the multidisciplinary treatment plan. I certify that the patient requires inpatient care for psychiatric treatment that could reasonably be expected to improve the patient's condition and/or diagnostic study. Signed By: David Keen MD 08/11/2017 * Radha Ford RN - 08/11/2017 10:55 AM EDT Telephone call to patient's Yaneth, with patient's permission. Yaneth continues to express concerns about Nain's readiness to return home from the hospital though she has not seen or spoken with him since his admission. This documentation writer suggested Yaneth visit with Nain today to get a better sense of where he is currently at. She agreed to this visit, but only if this documentation writer would be present for the entire visit as she has fears that Nain will start yelling or swearing at her again. This documentation writer agreed to this and will plan to attend the visit today around 12:30pm. * Radha Meraz - 08/11/2017 10:24 AM EDT Inpatient Daily Group Note Group: Goals: Reviewed rules and expectations, daily schedule, patients' progress and goals and read daily reading. Attendance: Present Behavior: Relevant Therapeutic Work Observed: Moderate Mood: Calm Notes: Patient has goal to attending all the group activities, rest in between. Plan to invite toall groups. MULU GUNN, MS 08/11/2017 Inpatient Daily Group Note Group: Communication: Reviewed factors that interfere with asking for help, styles of communicationand set goals of three things that participants need to address, who to talk to about it and when to start the communication. Attendance: Present Behavior: Expressive Therapeutic Work Observed: Moderate Mood: Hypomanic Notes: Patient engaged actively and had to be redirected at times to allow others to talk and/or tokeep his conversations brief and specific. 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 Inpatient Daily Group Note Group: Patient & family education Focus of group was opportunity to ask questions about illness, treatment and how to educate self and others. Attendance: Present Behavior: Hyper verbal Therapeutic Work Observed: Moderate Mood: Hypomanic Notes: Pt. shared having BPAD and asked about ways to address fear of others due to illness. Received feedback. Expansive at times although able to take redirection. RADHA MERAZ 08/11/2017 * Florence Rosado RN - 08/11/2017 5:59 AM EDT Pt was visibly monitored q 15 min throughout the shift. * Tamra Moody MSW - 08/10/2017 1:05 PM EDT OFFICE OF CARE MANAGEMENT PSYCHOSOCIAL ASSESSMENT Present at Interview: Patient Date: August 10, 2017 1. Referral request and/or presenting problem(s): Patient is a 66 year old MWM, who presents at [facility] to address his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 <150 mg/dL Borderline High Risk: 150-199 mg/dL High Risk: 200-499 mg/dL Very High Risk: >pj=469 mg/dL HDL Cholesterol 49 mg/dL [facility] Comment: Males: ?? Higher Risk: <40 mg/dL Females: ?? HIgher Risk: <50 mg/dL LDL Cholesterol 84 mg/dL [facility] Comment: Lowest Risk: <100 mg/dL Lower Risk: 100-129 mg/dL Borderline High Risk: 130-159 mg/dL High Risk: 160-189 mg/dL Very High Risk: >tv=113 mg/dL Cholesterol/HDL Ratio 3.4 ratio [facility] Lipid Interpretation See Note [facility] Comment: Lipid management should be guided by a patient? s ASCVD risk, goals and preferences. ACC/AHA Guidelines recommend high intensity statin if clinical ASCVD or LDL greater than or equal to 190 mg/dL. http://[employer].com/GZZ-YKD-Cwzopjdlm Adults aged 40-75 with LDL 70-189 mg/dL should have their 10 year ASCVD risk estimated with the ACC/AHA ASCVD risk estimator and drafter supervisor http://tools.acc.org/CIMQM-Pgui-Ughhlujof/ Statin should be discussed if risk greater than or equal to 7.5% in non-diabetics. With diabetes, moderate intensity statin is recommended if risk less than 7.5%, high intensity if risk greater than or equal to 7.5%. Annual lipid monitoring on statins is not necessary. Evaluate secondary causes of Triglycerides greater than 500 mg/dL or LDL greater than 190 mg/dL: See table 6 of ACC/AHA Guideline. Lifestyle modification is a critical component of ASCVD risk reduction. Blood specimen (specimen) 08/10/2017 10:45 AM EDT 08/10/2017 10:54 AM EDT Narrative Resulting Agency Comment Spec In Lab David Keen MD CHEMISTRY ORDERABLES [facility] [place] [address] * Hemoglobin A1c (08/10/2017 10:45 AM EDT) Hemoglobin A1c 5.6 4.3 - 5.6 % [facility] Comment: Reference Range: 4.3 - 5.6% 5.7 - 6.4% - Increased Risk of Developing Diabetes Mellitus >= 6.5% - Consistent with diagnosis of Diabetes Mellitus In the absence of hyperglycemia (i.e. plasma glucose > 200 mg/dL) or classic symptoms of hyperglycemia a repeat measurement of HbA1c should be performed on a separate sample to confirm the diagnosis. Diagnosis and Classification of Diabetes Mellitus, Diabetes Care 2013; 36: Suppl. 1, M07-40 Estimated Average Glucose 114 mg/dL [facility] Comment: eAG equivalents for HbA1c percentages: HbA1c(%) ?eAG(mg/dL) 6.0 ?126 6.5 ?140 7.0 ?154 7.5 ?169 8.0 ?183 8.5 ?197 9.0 ?212 9.5 ?226 10.0 ? 240 Limitations: The eAG calculation has not been validated on women, individuals below 18 years old and above 70 years old, and individuals with hemoglobinopathies. Additional resources are available on the ADA website. Tremayne GALVIN, Sharon J, Andrew R, et al. ??Translating the A1C assay into estimated average glucose values. ??Diabetes Care 2008:31(8):2628-7106. Blood specimen (specimen) 08/10/2017 10:45 AM EDT 08/10/2017 10:54 AM EDT Narrative Resulting Agency Comment Spec In Lab David Keen MD CHEMISTRY ORDERABLES Performing Organization Address City/[facility] Co de Phone Number [facility] [place] [address] * EKG 12 Lead (08/07/2017 10:24 AM EDT) Ventricular rate 79 BPM MUSE SYSTEM Atrial Rate 79 BPM MUSE SYSTEM P-R Interval 136 ms MUSE SYSTEM QRS Duration 92 ms MUSE SYSTEM Q-T Interval 376 ms MUSE SYSTEM QTC Calculated (Bezet) 431 ms MUSE SYSTEM Calculated P Baldwin 44 degrees MUSE SYSTEM Calculated R Baldwin 35 degrees MUSE SYSTEM Calculated T Baldwin 29 degrees MUSE SYSTEM INTERPRETATION Normal sinus rhythm Inferior infarct , age undetermined Abnormal ECG When compared with ECG of 11-APR-2003 19:43, Inferior infarct is now Present Confirmed by MD Andres, Aakash Marvin ([id number]) on 08/07/2017 12:19:01 PM MUSE SYSTEM 08/07/2017 10:2 4 AM EDT 08/07/2017 12:19 PM EDT David Keen MD ECG ORDERABLES Performing Organization Address [facility] Co de Phone Number MUSE SYSTEM documented in this encounter Visit Diagnoses Diagnosis Bipolar disorder, current episode manic without psychotic features, moderate- Primary Bipolar I disorder, most recent episode (or current) manic, moderate Bipolar II disorder Other bipolar disorders Prostate cancer metastatic to intrapelvic lymph node Hypothyroidism Unspecified hypothyroidism Hyperlipidemia Other [...] Date Dose Rate Site acetaminophen (TYLENOL) tablet 650 mg 650 mg, Oral, EVERY 6 HOURS PRN, Starting on 08/06/17 at 2219, Until 08/15/17 at 1440, Pain, Maximum dose of acetaminophen is 4000 mg from all sources in 24 hours., Routine Given 08/10/2017 10:26 AM EDT 650 mg atorvastatin (LIPITOR) tablet 10 mg 10 mg, Oral, EVERY EVENING, First dose on 08/06/17 at 2130, Until Discontinued Given 08/14/2017 5:39 PM EDT 10 mg Given 08/13/2017 5:01 PM EDT 10 mg Given 08/12/2017 4:59 PM EDT 10 mg clonazePAM (KlonoPIN) tablet 0.5 mg 0.5 mg, Oral, NIGHTLY PRN, Starting on Tue08/08/17 at 1355, Until Tue08/15/17 at 1440, Anxiety, or sleep, Routine clonazePAM (KlonoPIN) tablet 1 mg 1 mg, Oral, NIGHTLY, First dose (after last modification) on 08/07/17 at 2100, Until Discontinued, Routine Given 08/14/2017 9:34 PM EDT 1 mg Given 08/13/2017 8:27 PM EDT 1 mg Given 08/12/2017 8:59 PM EDT 1 mg clonazePAM (KlonoPIN) tablet 1 mg 1 mg, Oral, NIGHTLY PRN, Starting on 08/07/17 at 1327, Until Tue08/08/17 at 1356, Anxiety, or sleep, Routine Given 08/08/2017 4:42 AM EDT 1 mg clonazePAM (KlonoPIN) tablet 2 mg 2 mg, Oral, NIGHTLY, First dose on 08/06/17 at 2130, Until Discontinued, Routine Given 08/06/2017 10:26 PM EDT 2 mg hydrOXYzine (ATARAX) tablet 25 mg 25 mg, Oral, 3 TIMES DAILY PRN, Starting on Tue08/08/17 at 1355, Until Tue08/15/17 at 1440, Anxiety, sleep. First line as needed for sleep, Routine Given 08/14/2017 11:15 PM EDT 25 mg Given 08/12/2017 10:53 PM EDT 25 mg Given 08/12/2017 12:17 AM EDT 25 mg lamoTRIgine (LaMICtal) tablet 150 mg 150 mg, Oral, NIGHTLY, First dose (after last modification) on 08/07/17 at 2100, Until Discontinued, Routine Given 08/14/2017 9:35 PM EDT 150 mg Given 08/13/2017 8:27 PM EDT 150 mg Given 08/12/2017 8:58 PM EDT 150 mg levothyroxine (SYNTHROID) tablet 75 mcg 75 mcg, Oral, EVERY MORNING, First dose on Tue08/07/17 at 0600, Until Discontinued, Routine Given 08/15/2017 5:27 AM EDT 75 mcg Given 08/14/2017 8:44 AM EDT 75 mcg Given 08/13/2017 6:26 AM EDT 75 mcg melatonin tablet 3 mg 3 mg, Oral, NIGHTLY, First dose on Tue08/06/17 at 2245, Until Discontinued, Routine Given 08/07/2017 8:45 PM EDT 3 mg Given 08/06/2017 10:27 PM EDT 3 mg OLANZapine (ZyPREXA) tablet 10 mg 10 mg, Oral, NIGHTLY, First dose on Tue08/06/17 at 2130, Until Discontinued, Routine Given 08/06/2017 10:27 PM EDT 10 mg OLANZapine (ZyPREXA) tablet 10 mg 10 mg, Oral, NIGHTLY, First dose (after last modification) on Tue08/08/17 at 2100, Until Discontinued, Routine Given 08/11/2017 9:10 PM EDT 10 mg Given 08/10/2017 9:14 PM EDT 10 mg Given 08/09/2017 10:13 PM EDT 5 mg OLANZapine (ZyPREXA) tablet 15 mg 15 mg, Oral, NIGHTLY, First dose (after last modification) on Tue08/12/17 at 2100, Until Discontinued, Routine Given 08/14/2017 9:34 PM EDT 15 mg Given 08/13/2017 8:26 PM EDT 15 mg Given 08/12/2017 8:58 PM EDT 15 mg OLANZapine (ZyPREXA) tablet 5 mg 5 mg, Oral, 2 TIMES DAILY PRN, Starting on Tue08/06/17 at 2106, Until Tue08/08/17 at 1346, Agitation, Routine Given 08/07/2017 8:47 PM EDT 5 mg OLANZapine zydis (ZyPREXA) disintegrating tablet 5 mg 5 mg, Oral, 2 TIMES DAILY PRN, Starting on Tue08/08/17 at 1346, Until Tue08/15/17 at 1440, Agitation, Routine polyethylene glycol (MIRALAX) packet 17 g 17 g, Oral, DAILY PRN, Starting on Tue08/06/17 at 2218, Until Tue08/15/17 at 1440, Constipation, Routine senna-docusate (PERICOLACE) 8.6-50 mg per tablet 2 tablet 2 tablet, Oral, 2 TIMES DAILY PRN, Starting on 08/06/17 at 2218, Until Tue08/15/17 at 1440, Constipation, try miralax first, Routine sodium chloride (OCEAN) 0.65 % nasal spray 1 spray 1 spray, Each Nare, 2 TIMES DAILY PRN, Starting on Tue08/09/17 at 1800, Until Tue08/15/17 at 1440, Congestion, Routine Given 08/14/2017 9:43 PM EDT 1 spray Given 08/12/2017 9:05 PM EDT 1 spray Given 08/10/2017 9:16 PM EDT 1 spray tamsulosin (FLOMAX) ER capsule 0.8 mg 0.8 mg, Oral, NIGHTLY, First dose (after last modification) on 08/07/17 at 2100, Until Discontinued, DO NOT CRUSH OR OPEN, Routine Given 08/14/2017 9:35 PM EDT 0.8 mg Given 08/13/2017 8:26 PM EDT 0.8 mg Given 08/12/2017 8:57 PM EDT 0.8 mg documented in this encounter Active and Recently Administered Medications Times are shown in EDT. Scheduled Medication Order 08/13/2017 08/14/2017 08/15/2017 atorvastatin (LIPITOR) tablet 10 mg 10 mg, Oral, EVERY EVENING, First dose on 08/06/17 at 2130, Until Discontinued 1700 (Given - Provider: Azucena Silvestre RN) 1738 (Given - Provider: Azucena Silvestre RN) clonazePAM (KlonoPIN) tablet 1 mg 1 mg, Oral, NIGHTLY, First dose (after last modification) on 08/07/17 at 2100, Until Discontinued, Routine 2026 (Given - Provider: Azucena Silvestre RN) 2133 (Given - Provider: Azucena Silvestre RN) lamoTRIgine (LaMICtal) tablet 150 mg 150 mg, Oral, NIGHTLY, First dose (after last modification) on 08/07/17 at 2100, Until Discontinued, Routine 2026 (Given - Provider: Azucena Silvestre RN) 2134 (Given - Provider: Azucena Silvestre RN) levothyroxine (SYNTHROID) tablet 75 mcg 75 mcg, Oral, EVERY MORNING, First dose on 08/07/17 at 0600, Until Discontinued, Routine 625 (Given - Provider: Nanda Bonilla RN) 0600 (Not Given - Provider: Nanda Bonilla RN - Reason: See comment - Comment: patient still asleep)0844 (Given - Provider: Luciano Carey RN) 05 (Given - Provider: Nanda Bonilla RN) OLANZapine (ZyPREXA) tablet 15 mg 15 mg, Oral, NIGHTLY, First dose (after last modification) on Tue08/12/17 at 2100, Until Discontinued, Routine 2025 (Given - Provider: Azucena Silvestre RN) 2133 (Given - Provider: Azucena Silvestre RN) tamsulosin (FLOMAX) ER capsule 0.8 mg 0.8 mg, Oral, NIGHTLY, First dose (after last modification) on Tue08/07/17 at 2100, Until Discontinued, DO NOT CRUSH OR OPEN, Routine 2025 (Given - Provider: Azucena Silvestre RN) 2134 (Given - Provider: Azucena Silvestre RN) PRN Medication Order 08/13/2017 08/14/2017 08/15/2017 acetaminophen (TYLENOL) tablet 650 mg 650 mg, Oral, EVERY 6 HOURS PRN, Starting on 08/06/17 at 2219, Until 08/15/17 at 1440, Pain, Maximum dose of acetaminophen is 4000 mg from all sources in 24 hours., Routine clonazePAM (KlonoPIN) tablet 0.5 mg 0.5 mg, Oral, NIGHTLY PRN, Starting on 08/08/17 at 1355, Until 08/15/17 at 1440, Anxiety, or sleep, Routine hydrOXYzine (ATARAX) tablet 25 mg 25 mg, Oral, 3 TIMES DAILY PRN, Starting on 08/08/17 at 1355, Until 08/15/17 at 1440, Anxiety, sleep. First line as needed for sleep, Routine 5 (Given - Provider: Nesha Bond RN) OLANZapine zydis (ZyPREXA) disintegrating tablet 5 mg 5 mg, Oral, 2 TIMES DAILY PRN, Starting on Tue08/08/17 at 1346, Until Tue08/15/17 at 1440, Agitation, Routine polyethylene glycol (MIRALAX) packet 17 g 17 g, Oral, DAILY PRN, Starting on Tue08/06/17 at 2218, Until Tue08/15/17 at 1440, Constipation, Routine senna-docusate (PERICOLACE) 8.6-50 mg per tablet 2 tablet 2 tablet, Oral, 2 TIMES DAILY PRN, Starting on Tue08/06/17 at 2218, Until Tue08/15/17 at 1440, Constipation, try miralax first, Routine sodium chloride (OCEAN) 0.65 % nasal spray 1 spray 1 spray, Each Nare, 2 TIMES DAILY PRN, Starting on Tue08/09/17 at 1800, Until Tue08/15/17 at 1440, Congestion, Routine 2143 (Given - Provider: Azucena Silvestre RN) documented in this encounter Care Teams Service Manager Relationship Specialty Start Date End Date Celio Sanders MD [address] [place] [address] PCP - General Internal Medicine 05/19/16 documented as of this encounter
--- OUTSIDE RECORDS SUMMARY | 2023-10-12 02:44 | XMS_ITS | Encounter Summary ---
Author Organization [facility] [place] [address] Care Team Providers Care Geology Scientist Name Role Phone Celio Sanders MD Primary Care Provider [phone] Encounter Details Date Type Department Care Team (Late st Contact Info) Description 09/09/2017 Telephone Radiation Oncology at [address] [phone] Alta Rowland RN Social History Tobacco Use Types Packs/Day [...] encounter Miscellaneous Notes * Telephone Encounter - Alta Muse RN - 09/09/2017 4:57 PM EDT Radiation Oncology Nurse Telephone Note [facility] [place], [place] ----- Message from Ronnie Vazquez MD sent at 09/09/2017 3:01 PM EDT ----- Regarding: RE: Pt looking for refill of Rx Sure - thank you ----- Message ----- From: Alta Muse RN Sent: 09/09/2017 2:52 PM To: Ronnie Vazquez MD, [facility] Rad Onc Nurse Subject: FW: Pt looking for refill of Rx Dr Vazquez, You wrote a script for him 1 yr ago for prn refills. Do you authorize another refill? If so, I'm happy to do this. Alta ----- Message ----- From: Harjeet Silvestre Sent: 09/09/2017 12:54 PM To: Jame Simons Onc Nurse Subject: Pt looking for refill of Rx Good Afternoon, Nain called and said that he needs a refill of his Flomax at [facility]. Thanks, Harjeet Phone call to pt that prescription for Flomax was sent to [facility] pharmacy. documented in this encounter Plan of Treatment Upcoming Encounters Date Type Department Care Team (Late st Contact Info) Description 10/24/2023 1:30 PM EDT Office Visit Hematology/Oncology at [address] [phone] Bisi Cheng APRN [facility] [place] [address] documented as of this encounter Visit Diagnoses Diagnosis Malignant neoplasm of prostate documented in this encounter Care Teams Geology Scientist Relationship Specialty Start Date End Date Celio Sanders MD [address] [place] [address] PCP - General Internal Medicine 05/19/16 documented as of this encounter
--- OUTSIDE RECORDS SUMMARY | 2023-10-12 02:44 | XMS_ITS | Encounter Summary ---
Author Organization [facility] [place] [address] Care Team Providers Care Director Advanced Name Role Phone Celio Sanders MD Primary Care Provider Encounter Details Date Type Department Care Team (Late Contact Info) Description 04/27/2019 Ancillary Procedure [place] [address] Remy Barillas MD [facility] [address] Social History Tobacco Use Types Packs/Day Years [...] PM EDT Office Visit Hematology/Oncology at [address] [phone] Bisi Cheng APRN [facility] [place] [address] documented as of this encounter Procedures Procedure Name Priority Date/Time Associated Diagnosis Comments FILM LIBRARY STORAGE ONLY CT ABDOMEN AND PELVIS Routine 04/27/2019 12:00 AM EST documented in this encounter Results * Film Library- Storage Only CT Abdomen & Pelvis (04/27/2019 12:00 AM EST) Narrative MAG - 04/30/2019 8:45 AM EST This exam is auto-finalizing. It's purpose is for storage only. Remy Barillas MD IMG FILM LIBRARY ORD ERABLES [place], [place] documented in this encounter Visit Diagnoses Not on filedocumented in this encounter Care Teams Director Advanced Relationship Specialty Start Date End Date Celio Sanders MD [address] [place] [address] PCP - General Internal Medicine 05/19/16 documented as of this encounter
--- OUTSIDE RECORDS SUMMARY | 2023-10-12 02:44 | XMS_ITS | Encounter Summary ---
Author Organization [facility] [place] [address] Care Team Providers Care Leaflet Distributor Name Role Phone Celio Sanders MD Primary Care Provider Reason for Referral * Consultation (Routine) - Closed Specialty Diagnoses / Procedures Referred By Contac t Referred To Contact Diagnoses BRCA gene mutation positive Prostate cancer metastatic to intrapelvic lymph node Vitamin D deficiency Swathi Uriostegui APRN [address] [place] [address] [place] [address] Randy Brown MD [address] [place] [address], [place] [address] Referral ID Status Reason Start Date Expiration Date V isits Requested Visits Authorized [id number] Closed Consult, Test & Treat 04/16/2021 10/13/2021 1 1 Encounter Details Date Type Department Care Team (Late st Contact Info) Description 04/13/2021 10:30 AM EST Office Visit Hematology/Oncology at [address] [phone] Swathi Uriostegui [employer] [address] [place] [address] HEMATOLOGY ONCOLOGY [place], [place] [id number] BRCA gene mutation positive; Prostate cancer metastatic to intrapelvic lymph node; Vitamin D deficiency Social History Tobacco Use [...] 36.2 ??C (97.1 ??F) 04/13/2021 10:[address] Respiratory Rate 20 04/13/2021 10:45 AM EST Oxygen Saturation 98% 04/13/2021 10:45 AM EST Inhaled Oxygen Concentration - - Weight 80.5 kg (177 lb 6.4 oz) 04/13/2021 10:45 AM EST Height 160 cm (5' 2.99) 04/13/2021 10:45 AM EST Body Mass Index 31.43 04/13/2021 10:45 AM EST documented in this encounter Progress Notes * Swathi Uriostegui, KENNY - 04/13/2021 10:30 AM EST Subjective: Patient [...] 5/12 cores (all on right side), T2b, [place] 8 Darlyn-neural invasion present PSA - 47.5 [...] a pathogenic variant (mutation) in BRCA2 specifically c.1929del(p.[id number]). 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 At the time of the appointment,??Tasiawas provided with a printed copy of his??test result and an informational packet addressing a positive test result. ?? The following??47??genes were evaluated for sequence changes and exonic deletions/duplications: APC, RUMA, AXIN2, BARD1, BMPR1A, BRCA1, BRCA2, BRIP1, CDH1, CDK4, CDKN2A (p14ARF), CDKN2A ([id number]), CHEK2, CTNNA1, DICER1, EPCAM (EPCAM: Deletion/duplication testing [...] (VUS) in the AXIN2 and CTNNA1??genes, specifically c.1531A>T(p.Eip451Nap) and c.515A>T (p.Uaa834Pdr), were??detected. ? Interpretation: The most significant consequences [...] ?? Nain's sons live in [place] and [place]. ??They can go to [...] and mailing address stay updated in the [facility] system, in order for us to reach [...] possibility in the future,??Dr. Ara Mary, a overhauler helper at [facility] in [place], is willing to discuss these screening options with Nain.??Nain??can schedule an appointment with her by reaching her clinical secretary at [phone]. ?? Prostate Cancer Screening for Nain's sons ? Prostate cancer screening starting at age 40.?If either of them is found to not have the BRCA2 mutation then they can consider screening beginning at age 50 which is the recommendation for menin the general population ?? Skin cancer screening ?? Periodic skin exams ?? Colon cancer screening ?? Periodic colonoscopy screening as recommended by??Nain's overhauler helper. ?. ??SUMMARY ASSESSMENT/PLAN 07/24 He was diagnosed [...] PSA. ? Soc Hx: , lives in [place], [place]. He goes to [place] from December to June. 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, formerly worked in [employer] for a [employer] ?? Fam Hx: Father with prostate cancer [...] returns to the [facility] oncology clinic in [facility] today for follow up surveillance visit [...] swimming 5-6 times a week at the [facility] [employer]. He also walks his dogs daily. His [...] Nain is in agreement to see a supervisor rough end for baseline exam as his BRCA2 positive [...] axillary adenopathy or swelling left orright. BP 160/83 (BP Location (NBP): Right arm, Patient Position: Sitting) Pulse 92 Temp 36.2 ??C (97.1 ??F) (Temporal) Resp 20 Ht 160 cm (5' 2.99) Wt 80.5 kg (177 lb 6.4 oz) SpO2 98% BMI 31.43 kg/m?? LABS 04/10/21 WBC 8.63; ANC 4.51; H/H 12.7/38.8; PLT 307; BUN 29; CREAT 1.1; ALP 59; AST 25; ALT 33. CA++9.0 PSA, Ultrasensitive 04/10/21 - 0.19 - 0.10 10/13/20 - 0.06 06/23/20 - <0.03 01/21/21 - <0.02 12/17/19 - <0.01 Assessment: Nain Mckeon is a 70 male diagnosed 05/21 with prostate cancer with perineural invasion and suspicious internal iliac LN. Nain returns to the [facility] onc[facility] clinic in [facility] today for followup surveillance visit with [...] 1:30 PM EDT Office Visit Hematology/Oncology at [address] [phone] Bisi Cheng APRN [facility] [place] [address] Scheduled Referrals Name Type Priority Associated Diagnoses Orde r Schedule Referral to Dermatology Outpatient Referral Routine BRCA gene mutation positive Prostate cancer metastatic to intrapelvic lymph node Vitamin D deficiency Ordered: 04/16/2021 documented as of this encounter Visit Diagnoses Diagnosis BRCA gene mutation positive Prostate cancer metastatic to intrapelvic lymph node Vitamin D deficiency Unspecified vitamin D deficiency documented in this encounter Care Teams Leaflet Distributor Relationship Specialty Start Date End Date Celio Sanders MD [address] [place] [address] PCP - General Internal Medicine 05/19/16 documented as of this encounter
--- OUTSIDE RECORDS SUMMARY | 2023-10-12 02:44 | XMS_ITS | Encounter Summary ---
Author Organization [facility] [place] [address] Care Team Providers Care Medical Reimbursement Manager Name Role Phone Celio Sanders MD Primary Care Provider [phone] Reason for Visit * Reason Comments Prostate Cancer Encounter Details Date Type Department Care Team (Late st Contact Info) Description 08/23/2017 3:00 PM EDT Office Visit Hematology/Oncology at [address] [phone] Gael Anderson MD [address] [place] [phone] Malignant neoplasm of prostate Social History Tobacco [...] 36.7 ??C (98.1 ??F) 08/23/2017 2:50 PM ED T Respiratory Rate 18 08/23/2017 2:50 PM EDT Oxygen Saturation 97% 08/23/2017 2:50 PM EDT Inhaled Oxygen Concentration - - Weight 80.5 kg (177 lb 6.4 oz) 08/23/2017 2:50 P M EDT Height - - Body Mass Index 31.42 08/06/2017 8:00 PM EDT documented in this encounter Progress Notes * Gael Anderson MD - 08/23/2017 3:00 PM [...] Curran performed ultrasound-guided prostate biopsy that showed [place] 4+4 disease in 2 cores and [place] 4+3 disease in 3 additional cores. All [...] on prostate cancer. He followed[place] oncologist in [place] initiated abiraterone 250 mg daily with low-fat [...] 12 weeks since his last injection in [place] and is due a Lupron shot today. He would prefer Eligard but that is not on her formulary so he is fine with Lupron. Overall he is doing quite well..He did require a admission to the hospital for [...] of education: N/A Occupational History ??? 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 Smoking status: [...] for this visit. Pathology: 05/17/16 Extradepartmental number: ??[id number]; collection date, 04/27/2016. A - Prostatic core needle biopsy, right lateral base: ? 1. Adenocarcinoma, grade group 3, [place] grade 4+3, ?involving 95% of the biopsy core. ? 2. Perineural invasion identified. B - Prostatic core needle biopsy, right medial base: ? 1. Adenocarcinoma, grade group 3, [place] grade 4+3, ?involving 95% of the biopsy core. ? 2. Perineural invasion identified. C - Prostatic core needle biopsy, right mid lateral: ? Adenocarcinoma, grade group 4, [place] grade 4+4, ? involving 90% of the [...] medial apex: ? Adenocarcinoma, grade group 3, [place] grade 3+4, ? involving 25% of the [...] 1:30 PM EDT Office Visit Hematology/Oncology at [address] [phone] Bisi Cheng APRN [facility] [place] [address] documented as of this encounter Visit Diagnoses Diagnosis Malignant neoplasm of prostate documented in this encounter Care Teams Medical Reimbursement Manager Relationship Specialty Start Date End Date Celio Sanders MD [address] [place] [address] PCP - General Internal Medicine 05/19/16 documented as of this encounter
--- OUTSIDE RECORDS SUMMARY | 2023-10-12 02:44 | XMS_ITS | Encounter Summary ---
Author Organization Replaced By [facility] Address [facility] [place] [address] Care Team Providers Care Pole Truck Driver Name Role Phone Celio Sanders MD Primary Care Provider [phone] Encounter Details Date Type Department Care Team (Late st Contact Info) Description 07/27/2019 2:30 PM EDT Office Visit Hematology/Oncology at [address] [phone] Remy Barillas MD [facility] [place] [address] Dayana Tompkins, RN Prostate cancer metastatic to intrapelvic lymph node [...] 36.5 ??C (97.7 ??F) 07/27/2019 2:27 PM ED T Respiratory Rate 18 07/27/2019 2:27 PM EDT Oxygen Saturation 97% 07/27/2019 2:27 PM EDT Inhaled Oxygen Concentration - - Weight 76.1 kg (167 lb 12.8 oz) 07/27/2019 2:27 PM EDT Height 160 cm (5' 3) 07/27/2019 2:27 PM EDT Body Mass Index 29.72 07/27/2019 2:27 PM EDT documented in this encounter Progress Notes * Dayana Tompkins, SCHOOL COORDINATOR - 07/27/2019 2:30 PM EDT Subjective: Encounter [...] negative 9. Genetic testing 03/2018 - Result: [employer]'s Common Hereditary Cancers Panel showed that Nain carries a pathogenic variant (mutation) in BRCA2 specifically c.1929del(p.[id number]). This result is consistent with a diagnosis [...] BRCA2, BRIP1, CDH1, CDK4, CDKN2A (p14ARF), CDKN2A (p08VSX9t), CHEK2, CTNNA1, DICER1, EPCAM (EPCAM: Deletion/duplication testing [...] the AXIN2 and CTNNA1 genes, specifically c.1531A>T (p.Lly942Wdx) and c.515A>T (p.Eel722Xqw), were detected. ? Interpretation: The most significant consequences of carrying a pathogenic variant in BRCA2 are increased risks forbreast cancer and ovarian cancer in women. For men, the most significant consequence is for prostate cancer so this finding is felt to be related to Nancies cancer. Other cancers associated with XEXG2xhw breast cancer in men, pancreatic, and melanoma. [...] with them. ?? Nain's sons live in [place] and [place]. They can go to the website of [...] the gene with no increased cancer risks. [employer] is continually collecting and analyzing their data, [...] and mailing address stay updated in the [facility] system, in order for us to [...] in the future, Dr. Ara Mary, a hose operator at [facility] [place] in [place], is willing to discuss these screening options with Nain. Nain can schedule an appointment with her by reaching her loan secretary at [phone]. ?? Prostate Cancer Screening for Nain's sons [...] Periodic colonoscopy screening as recommended by Nain's hose operator. ?? HPI Mr. Mckeon is seen in f/u of prostate cancer. This is his first visit with me. Mr. Mckeon returns to the [facility] for follow up of his prostate cancer. He seems to bedoing well overall. His biggest concern is his [...] to burn. Soc Hx: , lives in [place], [place]. He goes to [place] from December to June. 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 In 03/2019genetic testing was performed and shows a pathogenic mutation in BRCA2. The recommendations based on this are summarized in the problem list above. Although patients with BRCA mutations may benefit from therapy with PARP inhibitors, there is no role in the absence of metastatic disease, as in the cu rrent setting (the indication is in castrate resistant metastatic disease). Genetic testing would be recommended for his sons and sister and he has discussed this with them. For him personally, it isrecommended that a mammogram be considered. Periodic skin [...] in 5/12 cores, all on the right. [place] score was 8 in two of the [...] 1:30 PM EDT Office Visit Hematology/Oncology at [address] [phone] Bisi Cheng APRN [facility] MEDICAL ONCOLOGY [place] [address] documented as of this encounter Visit Diagnoses Diagnosis Prostate cancer metastatic to intrapelvic lymph node documented in this encounter Care Teams Pole Truck Driver Relationship Specialty Start Date End Date Celio Sanders MD [address] [place] [address] PCP - General Internal Medicine 05/19/16 documented as of this encounter
--- OUTSIDE RECORDS SUMMARY | 2023-10-12 02:44 | XMS_ITS | Encounter Summary ---
Author Organization [facility] [place] [address] Care Team Providers Care Writer Editor Name Role Phone Celio Sanders MD Primary Care Provider [phone] Reason for Visit * Reason Comments Injections Lupron Encounter Details Date Type Department Care Team (Late Contact Info) Description 08/23/2017 3:30 PM EDT Infusion Hematology Oncology at [address] [phone] 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 Social History Tobacco Use Types Packs/Day Years [...] Progress Notes * Mindi Vargas RN - 08/23/2017 3:30 PM [...] PM EDT Office Visit Hematology/Oncology at [address] [phone] Bisi Cheng APRN [facility] [place] [address] documented as of this encounter Visit Diagnoses Diagnosis 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 documented in this encounter Administered Medications Inactive Administered Medications - up to 3 most recent administrations Medication Order MAR Action Action Date Dose Rate Site leuprolide (LUPRON) injection 22.5 mg 22.5 mg, Intramuscular, ONCE, 1 dose, On Tue08/23/17 at 1545, Routine, This agent is restricted to outpatient use. Is this drug being given as an outpatient? Yes Given 08/23/2017 3:45 PM EDT 22.5 mg Le ft Gluteal documented in this encounter Care Teams Writer Editor Relationship Specialty Start Date End Date Celio Sanders MD [address] [place] [address] PCP - General Internal Medicine 05/19/16 documented as of this encounter
--- OUTSIDE RECORDS SUMMARY | 2023-10-12 02:44 | XMS_ITS | Encounter Summary ---
Author Organization [facility] Address [facility] [place] [address] Care Team Providers Care Imaging Tech Name Role Phone Celio Sanders MD Primary Care Provider [phone] Reason for Visit * Reason Comments Results BRCA2 mutation Encounter Details Date Type Department Care Team (Late st Contact Info) Description 05/02/2019 9:30 AM EST Office Visit Hematology [place] [phone] Tre Walker MD [facility] HEMATOLOGY/[place] [address] [place], [facility] HEMATOLOGY/[place] [address] Prostate cancer metastatic to intrapelvic lymph node; BRCA2 positive Social History Tobacco Use Types [...] kg (173 lb 9.6 oz) 05/02/2019 9:28 A M EST Height 161.4 cm (5' 3.54) 05/02/2019 9:28 AM ES T Body Mass Index 30.23 05/02/2019 9:28 AM EST documented in this encounter Progress Notes * Tre Walker MD - 05/02/2019 9:30 AM EST .. * Tre Walker MD - 05/02/2019 9:30 AM EST Nain Mckeon was seen by [place] [facility] and myself in the Familial Cancer Program to receive results from genetic testing. I spent all of 30 minutes in wyok-vz-khyw consultation outlining the test result and its implications. A summary is below and a copy has been sent to Nain. Please be advised that [place] law requires that all health care workers respect the confidentiality of this information and not pass it along to other health care providers, insurance companies, or individualswithout the written permission of the patient. The Familial Cancer Program welcomes any questions about these matters. Our phone number is: [phone]. On 03/28/2019, Nain underwent gene panel analysis based on the personal history of prostate cancer and family history of prostate, breast, pancreatic and possibly ovarian cancer. Following are the results of this test. Result: [employer]'s Common Hereditary Cancers Panel showed that Nain carries a pathogenic variant (mutation) in BRCA2 specifically c.1929del(p.[id number]). This result is consistent with a diagnosis [...] BRCA2, BRIP1, CDH1, CDK4, CDKN2A (p14ARF), CDKN2A (u83PJK8q), CHEK2, CTNNA1, DICER1, EPCAM (EPCAM: Deletion/duplication testing [...] the AXIN2 and CTNNA1 genes, specifically c.1531A>T (p.Gww291Luk) and c.515A>T (p.Iuk096Rgw), were detected. Interpretation: The most significant consequences of carrying a pathogenic variant in BRCA2 are increased risks forbreast cancer and ovarian cancer in women. For men, the most significant consequence is for prostate cancer so this finding is felt to be related to Nancies cancer. Other cancers associated with TUFD2dyc breast cancer in men, pancreatic, and melanoma. [...] side of the family this was likely inheritedfrom. Unfortunately Nain does not have contact with his extended family so is unable to share this information with them. Nain's sons live in [place] and [place]. They can go to the website of the National Society of Genetic Counselors at www.nsgc.org in order to find a counselor in their area who can help themto arrange for genetic testing. It is important [...] the gene with no increased cancer risks. [employer] is continually collecting and analyzing their data, [...] and mailing address stay updated in the [facility] system, in order for us to reach [...] age 40; annual mammogram if gynecomastia or parenchymal/glandularbreast density on baseline study. Pancreatic cancer screening [...] be discouraged from smoking or drinking heavily. We discussed [...] in the future, Dr. Ara Mary, a hair worker at [facility] [place], is willing to discuss these screening options with Nain. Nain can schedule an appointment with her by reaching her racing secretary at [phone]. Prostate Cancer Screening for Nain's sons ?? Prostate cancer screening starting at age 40. If either of them is found to not have the BRCA2 mutation then they can consider screening beginning at age 50 which is the recommendation for men in the general population Skin cancer screening ??? Periodic skin exams Colon cancer screening ?? Periodic colonoscopy screening as recommended by Nain's hair worker. We provided Nain with information on an online support organization called [employer]: Facing Our Risk of Cancer Empowered which he may find helpful. In [...] a sense of relief from knowing and understanding the underlying cause of the cancer in the family, or from knowing their personal cancer risk and gene status. Testing may bring up feelings about other relatives who had cancer. It isnot uncommon to experience an increase in anxiety, or sleeplessness, as a result of worries about one's current and future health. One may also worry that other family members might have inherited the altered gene. For some, a consultation with a psychologist, public health social worker, or psychiatrist may be helpful in dealing with feelings that may arise from genetic testing. If Nain would like a referral,we can help to try to recommend a therapist who is familiar with issues surrounding genetic conditions. documented in this encounter Plan of Treatment Upcoming Encounters Date Type Department Care Team (Late st Contact Info) Description 10/24/2023 1:30 PM EDT Office Visit Hematology/Oncology at [address] [phone] Bisi Cheng APRN [facility] [place] [address] documented as of this encounter Visit Diagnoses Diagnosis Prostate cancer metastatic to intrapelvic lymph node BRCA2 positive Genetic susceptibility to malignant neoplasm of breast documented in this encounter Care Teams Imaging Tech Relationship Specialty Start Date End Date Celio Sanders MD [address] [place] [address] PCP - General Internal Medicine 05/19/16 documented as of this encounter
--- OUTSIDE RECORDS SUMMARY | 2023-10-12 02:44 | XMS_ITS | Encounter Summary ---
Author Organization [facility] Address [facility] [place] [address] Care Team Providers Care Clinical Aide Name Role Phone Celio Sanders MD Primary Care Provider [phone] Encounter Details Date Type Department Care Team (Late st Contact Info) Description 10/20/2020 9:30 AM EDT Office Visit Hematology/Oncology at [address] [phone] Swathi Uriostegui APRN [address] [place] [address] DR HEMATOLOGY ONCOLOGY [place], [place] [phone] Prostate cancer metastatic to intrapelvic lymph node; [...] 36.6 ??C (97.9 ??F) 10/20/2020 9:34 AM ED T Respiratory Rate 20 10/20/2020 9:34 AM EDT Oxygen Saturation 98% 10/20/2020 9:34 AM EDT Inhaled Oxygen Concentration - - Weight 82.9 kg (182 lb 12.8 oz) 10/20/2020 9:34 AM EDT Height 160 cm (5' 2.99) 10/20/2020 9:34 AM EDT Body Mass Index 32.39 10/20/2020 9:34 AM EDT documented in this encounter Progress Notes * Swathi Uriostegui, HOME DAY CARE PROVIDER - 10/20/2020 9:30 AM EDT Subjective: Patient [...] a pathogenic variant (mutation) in BRCA2 specifically c.1929del(p.[id number]). 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 At the time of the appointment,??Tasiawas provided with a printed copy of his??test result and an informational packet addressing a positive test result. ?? The following??47??genes were evaluated for sequence changes and exonic deletions/duplications: APC, RUMA, AXIN2, BARD1, BMPR1A, BRCA1, BRCA2, BRIP1, CDH1, CDK4, CDKN2A (p14ARF), CDKN2A (p67CQR3y), CHEK2, CTNNA1, DICER1, EPCAM (EPCAM: Deletion/duplication testing [...] (VUS) in the AXIN2 and CTNNA1??genes, specifically c.1531A>T(p.Iob482Ijv) and c.515A>T (p.Oih171Fsj), were??detected. ? Interpretation: The most significant consequences [...] and mailing address stay updated in the [facility] system, in order for us [...] possibility in the future,??Dr. Ara Mary, a water and fire technician at [facility] [place], is willing to discuss these screening options with Nain.??Nain??can schedule an appointment with her by reaching her clerk secretary at [phone]. ?? Prostate Cancer Screening for Nain's sons ? Prostate cancer screening starting at age 40.?If either of them is found to not have the BRCA2 mutation then they can consider screening beginning at age 50 which is the recommendation for menin the general population ?? Skin cancer screening ?? Periodic skin exams ?? Colon cancer screening ?? Periodic colonoscopy screening as recommended by??Nain's water and fire technician. ?. ??SUMMARY ASSESSMENT/PLAN 07/24 He was diagnosed with prostate cancer in 2017 after presenting with hematuria and found to have an abnormal prostate gland on exam. TRUS prostate bx showed adenocarcinoma in 5/12 cores, all on the right. [place] score was 8 in two of the [...] PSA. ? Soc Hx: , lives in [place], [place]. He goes to [place] from December to June. 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 Fam Hx: Father with prostate [...] as summarized above.) Nain returns to the [facility] oncology clinic in [facility] today for follow up surveillance visit [...] returns to the [facility] oncology clinic in [facility] today for followup surveillance visit with [...] 1:30 PM EDT Office Visit Hematology/Oncology at [address] [phone] Bisi Cheng APRN [facility] [place] [address] documented as of this encounter Visit Diagnoses Diagnosis Prostate cancer metastatic to intrapelvic lymph node BRCA2 positive Genetic susceptibility to malignant neoplasm of breast Malignant neoplasm of prostate documented in this encounter Care Teams Clinical Aide Relationship Specialty Start Date End Date Celio Sanders MD [address] [place] [address] PCP - General Internal Medicine 05/19/16 documented as of this encounter
--- OUTSIDE RECORDS SUMMARY | 2023-10-12 02:44 | XMS_ITS | Encounter Summary ---
Author Organization [facility] Address [facility] [place] [address] Care Team Providers Care Statistical Typist Name Role Phone Celio Sanders MD Primary Care Provider [phone] Encounter Details Date Type Department Care Team (Late st Contact Info) Description 05/04/2019 11:00 AM EST Office Visit Hematology/Oncology at [address] [phone] Remy Barillas MD [facility] [place] [address] Daynaa Tompkins, RN Malignant neoplasm of prostate Social History Tobacco [...] 36.3 ??C (97.3 ??F) 05/04/2019 11:[address] Respiratory Rate 16 05/04/2019 11:09 AM EST Oxygen Saturation 98% 05/04/2019 11:09 AM EST Inhaled Oxygen Concentration - - Weight 80.3 kg (177 lb) 05/04/2019 11:09 AM EST Height - - Body Mass Index 30.82 05/02/2019 9:28 AM EST documented in this encounter Progress Notes * Remy Barillas MD - 05/04/2019 11:00 AM EST Subjective: Patient ID: Nain Mckeon is a 68 y.o. male. Problem List: 1. Prostate cancer, cT2b, N1 A. Presented with hematuria TRUS prostate biopsies 04/2016 - Adenocarcinoma in 5/12 cores (all on right side), T2b, [place] 8 Darlyn-neural invasion present PSA - 47.5 [...] negative 9. Genetic testing 03/2018 - Result: [employer]'s Common Hereditary Cancers Panel showed that Nain carries a pathogenic variant (mutation) in BRCA2 specifically c.1929del(p.[id number]). This result is consistent with a diagnosis [...] BRCA2, BRIP1, CDH1, CDK4, CDKN2A (p14ARF), CDKN2A (l01XRF7y), CHEK2, CTNNA1, DICER1, EPCAM (EPCAM: Deletion/duplication testing [...] the AXIN2 and CTNNA1 genes, specifically c.1531A>T (p.Lox872Pab) and c.515A>T (p.Jlk763Muu), were detected. ? Interpretation: The most significant consequences of carrying a pathogenic variant in BRCA2 are increased risks forbreast cancer and ovarian cancer in women. For men, the most significant consequence is for prostate cancer so this finding is felt to be related to Nancies cancer. Other cancers associated with YDNP3has breast cancer in men, pancreatic, and melanoma. [...] with them. ?? Nain's sons live in [place] and [place]. They can go to the website of [...] the gene with no increased cancer risks. [employer] is continually collecting and analyzing their data, [...] and mailing address stay updated in the [facility] system, in order for us to [...] in the future, Dr. Ara Mary, a well point pumping supervisor at [facility] in [place], is willing to discuss these screening options with Nain. Nain can schedule an appointment with her by reaching her corporate legal secretary at [phone]. ?? Prostate Cancer Screening for Nain's sons [...] Periodic colonoscopy screening as recommended by Nain's well point pumping supervisor. ?? HPI Mr. Mckeon is seen in [...] than he should. He walks up to 2miles or so per day. They got a new dog in November. After this his activity level increased. This may be part of the weight loss. His urinary habits are stable. He has not been having to get up at night to urinate lately. Soc Hx: , lives in [place], [place]. He goes to [place] from December to June. 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 [place] score was 8 in two of the [...] PM EDT Office Visit Hematology/Oncology at [address] [phone] Bisi Cheng APRN [facility] [place] [address] documented as of this encounter Visit Diagnoses Diagnosis Malignant neoplasm of prostate documented in this encounter Care Teams Statistical Typist Relationship Specialty Start Date End Date Celio Sanders MD [address] [place] [address] PCP - General Internal Medicine 05/19/16 documented as of this encounter
--- OUTSIDE RECORDS SUMMARY | 2023-10-12 02:44 | XMS_ITS | Encounter Summary ---
[place] [address] Care Team Providers Care Hot Tamale Man Name Role Phone Celio Sanders MD Primary Care Provider [phone] Reason for Visit * Reason Comments Injections Lupron * Treatment/Therapy Plan Authorization (Routine) - Closed Specialty Diagnoses / Procedures Referred By Contac t Referred To Contact Diagnoses Prostate cancer metastatic to intrapelvic lymph node Gael Anderson MD [address] [place] [address] [facility] Hem Onc Office [address] [place] [phone] Referral ID Status Reason Start Date Expiration Date Visits Re quested Visits Authorized [id number] Closed 11/15/2017 11/15/2018 1 1 Encounter Details Date Type Department Care Team (Late st Contact Info) Description 11/15/2017 3:00 PM EDT Infusion Hematology Oncology at [address] [phone] Prostate cancer metastatic to intrapelvic [...] as of this encounter Progress Notes * Falguni Acosta RN - 11/15/2017 3:00 PM [...] PM EDT Office Visit Hematology/Oncology at [address] [phone] Bisi Cheng APRN [facility] [place] [address] documented as of this encounter Visit Diagnoses [...] being given as an outpatient? Yes Given 11/15/2017 2:42 PM EDT 22.5 mg Right Gluteal documented in this encounter Care Teams Hot Tamale Man Relationship Specialty Start Date End Date Celio Sanders MD [address] [place] [address] PCP - General Internal Medicine 05/19/16 documented as of this encounter
--- OUTSIDE RECORDS SUMMARY | 2023-10-12 02:44 | XMS_ITS | Encounter Summary ---
Author Organization [facility] Address [facility] [place] [address] Care Team Providers Care Stock Preparation Supervisor Name Role Phone Celio Sanders MD Primary Care Provider [phone] Encounter Details Date Type Department Care Team (Late st Contact Info) Description 02/09/2021 [place] [phone] Dori Maharaj Social History Tobacco Use Types [...] encounter Miscellaneous Notes * Telephone Encounter - Dori Maharaj - 02/09/2021 12:01 PM EST Nain Mckeon [id number] Diagnosis/Indication: BRCA gene mutation positive 1. Have you ever had a/an Colonoscopy before? Yes: Date 2013 If yes, did you have any problems with the procedure? No What type of sedation was used: General Anesthesia 2. Do you take any blood thinners or have you been diagnosed with a bleeding disorder that increases your risk of bleeding with procedures? No 3. [...] will drive you to your procedure, stay oncampus for the entire duration of your procedure, [...] PM EDT Office Visit Hematology/Oncology at [address] [phone] Bisi Cheng APRN [facility] [place] [address] documented as of this encounter Visit Diagnoses Not on filedocumented in this encounter Care Teams Stock Preparation Supervisor Relationship Specialty Start Date End Date Celio Sanders MD [address] [place] [address] PCP - General Internal Medicine 05/19/16 documented as of this encounter
--- OUTSIDE RECORDS SUMMARY | 2023-10-12 02:44 | XMS_ITS | Encounter Summary ---
Author [place] [address] Care Team Providers Care Lock Tender Chief Operator Name Role Phone Celio Sanders MD Primary Care Provider [phone] Reason for Visit * Reason Comments Injections Lupron * Treatment/Therapy Plan Authorization (Routine) - Closed Specialty Diagnoses / Procedures Referred By Contac t Referred To Contact Diagnoses Prostate cancer metastatic to intrapelvic lymph node Gael Anderson MD [address] [place] [address] Hem Onc Office [address] [place] [phone] Referral ID Status Reason Start Date Expiration Date Visits Re quested Visits Authorized [id number] Closed 11/15/2017 11/15/2018 1 1 Encounter Details Date Type Department Care Team (Late st Contact Info) Description 02/09/2019 3:00 PM EST Infusion Hematology Oncology at [address] [phone] Prostate cancer metastatic to intrapelvic [...] Progress Notes * Falguni Acosta RN - 02/09/2019 3:00 PM [...] 1:30 PM EDT Office Visit Hematology/Oncology at [address] [phone] Bisi Cheng APRN [facility] [place] [address] documented as of this encounter Visit Diagnoses [...] being given as an outpatient? Yes Given 02/09/2019 3:16 PM EST 22.5 mg Le ft Gluteal documented in this encounter Care Teams Lock Tender Chief Operator Relationship Specialty Start Date End Date Celio Sanders MD [address] [place] [address] PCP - General Internal Medicine 05/19/16 documented as of this encounter
--- OUTSIDE RECORDS SUMMARY | 2023-10-12 02:44 | XMS_ITS | Encounter Summary ---
Author Organization [facility] [place] [address] Care Team Providers Care Maintenance Groundman Name Role Phone Celio Sanders MD Primary Care Provider [phone] Encounter Details Date Type Department Care Team (Latest Contact Info) Description 03/28/2019 2:09 PM EST - 03/28/2019 11:59 PM EST Hospital Encounter [place] [phone] Prostate cancer metastatic to intrapelvic lymph node; Malignant neoplasm of prostate Discharge Disposition: Home [...] Sig Dispensed Refills Start Date End Date multivitamin (THERAGRAN) Tablet Take 1 tablet by mouth nightly. lamoTRIgine (LAMICTAL) 150 mg Tablet Take 1 tablet by mouth daily. 30 tablet 1 08/15/2017 TURMERIC ROOT EXTRACT ORAL Take 1 capsule by mouth 2 times daily. pravastatin (PRAVACHOL) 40 mg Tablet Take 40 mg by mouth daily. LEVOTHYROXINE SODIUM (LEVOTHROID ORAL) Take 75 mcg by mouth daily. clonazePAM (KlonoPIN) 0.5 mg Tablet TAKE ONE TABLET BY MOUTH AT BEDTIME NEEDED 2 11/30/2018 05/04/2019 FluZONE High-Dose 2019-20, PF, 180 mcg/0.5 mL Syringe INJECT AT PHARMACY 0 01/22/201903/2021 benztropine (COGENTIN) 1 mg Tablet Take 2 mg by mouth 2 times daily. 05/04/2019 ARIPiprazole (ABILIFY) 10 mg Tablet Take 15 mg by mouth daily. 05/02/2019 tamsulosin (FLOMAX) 0.4 mg CapsuleIndications:Rafaela gnant neoplasm of prostate Take 2 capsules by mouth nightly as needed. 60 tablet 09/09/2017 12/28/2019 clonazePAM (KLONOPIN) 2 mg Tablet Take 0.5 tablets by mouth nightly as needed for Anxiety. 60 tablet 08/15/2017 12/28/2019 documented as of this encounter Plan of Treatment Upcoming Encounters Date Type Department Care Team (Late st Contact Info) Description 10/24/2023 1:30 PM EDT Office Visit Hematology/Oncology at [address] [phone] Bisi Cheng APRN [facility] [place] [address] documented as of this encounter Procedures Procedure Name Priority Date/Time Associated Diagnosis Comments RESEARCH VENIPUNCTURE Routine 03/28/2019 2:42 PM EST Prostate cancer metastatic to intrapelvic lymph node HEMOGRAM Routine 03/28/2019 2:42 PM EST Malignant neoplasm of prostate DIFFERENTIAL, AUTOMATED Routine 03/28/2019 2:42 PM EST Malignant neoplasm of prostate HC CBC,PLT & AUTO DIFF Routine 0 2:42 PM EST Malignant neoplasm of prostate HC PROSTATE SPECIFIC ANTIGEN Routine 03/28/2019 2:42 PM EST Malignant neoplasm of prostate COMPREHENSIVE METABOLIC PANEL Routine 03/28/2019 2:42 PM EST Malignant neoplasm of prostate documented in this encounter Results * Differential, Automated (03/28/2019 2:42 PM EST) Neutrophil % 51.5 % [facility] Neutrophil Absolute 3.04 1.70 - 6.10 x10(3)/[facility] Lymph % 34.3 % [facility] Lymphocytes Abs 2.0 0.9 - 3.2 x10(3)/[facility] Monocyte % 9.3 % [facility] Monocyte Abs 0.6 0.3 - 0.9 x10(3)/[facility] Eos % 3.9 % [facility] Eosinophils Abs 0.2 0.0 - 0.4 x10(3)/[facility] Basophil % 0.7 % [facility] Baso Absolute 0.0 0.0 - 0.1 x10(3)/[facility] Immature Gran % 0.30 % [facility] Comment: Immature granulocytes(IG's)percentage and absolute count will include metamyelocytes, myelocytes, and promyelocytes. Blood smears from CBCs yielding IG's will be scanned manually for concordance. If this scan disagrees with the automated IG or if promyelocytes are noted, a manual differential will be performed. Immature Gran Absolute 0.02 0.00 - 0.04 x10(3)/[facility] Blood specimen (specimen) 03/28/2019 2:42 PM EST 03/28/2019 2:55 PM EST Narrative Resulting Agency Comment Spec In Lab Remy Barillas MD HEMATOLOGY ORDERABLE S [facility] [address] * (ABNORMAL) Hemogram (03/28/2019 2:42 PM EST) White Blood Cell 5.9 4.0 - 9.5 x10(3)/ L [facility] Red Blood Cell 4.09(L) 4.58 - 5.54 x10(6)/ L [facility] Hemoglobin 13.0(L) 13.7 - 16.5 gm/dL [facility] Hematocrit 38.7(L) 40.5 - 48.5 % [facility] Mean Cell Volume 94.6(H) 82.9 - 93.1 fL [facility] Mean Cell Hemoglobin 31.8 27.5 - 32.1 pg [facility] Mean Cell Hemoglobin Concentration 33.6 32.0 - 35.7 gm/dL [facility] Platelet 226 145 - 357 x10(3)/mc L [facility] RDW Standard Deviation 43.9 36.0 - 45.0 fL [facility] RDW coefficient of variation 12.7 11.4 - 13.8 % [facility] Mean Platelet Volume 9.3 7.6 - 12.9 fL [facility] NRBC% auto 0.0 % [facility] NRBC Absolute 0.000 0.000 - 0.000 x10(3)/mc L [facility] Blood specimen (specimen) 03/28/2019 2:42 PM EST 03/28/2019 2:55 PM EST Narrative Resulting Agency Comment Spec In Lab Remy Barillas MD HEMATOLOGY ORDERABLE S [facility] [address] * Comprehensive metabolic panel (non-fasting) (03/28/2019 2:42 PM EST) Glucose 119 65 - 199 mg/dL [facility] Comment:Diabetes: >=200 mg/d L plus symptoms Blood Urea Nitrogen 19 10 - 20 mg/dL [facility] Creatinine 1.00 0.80 - 1.50 mg/dL [facility] Sodium 143 135 - 145 mmol/L [facility] Potassium 4.1 3.5 - 5.0 mmol/L [facility] Comment: Please note: ??Patients with WBC >100,000 may have falsely elevated Potassium levels. ??For accurate Potassium quantification in these patients send serum separator tube (gold top) for subsequent determinations. ??Contact the Clinical Chemistry Laboratory if there are any questions. Chloride 105 98 - 107 mmol/L [facility] Carbon Dioxide 29 22 - 31 mmol/L [facility] Anion Gap 9 5 - 15 mmol/L [facility] Calcium 9.0 8.5 - 10.5 mg/dL [facility] Protein, Total 7.2 6.1 - 8.0 gm/dL [facility] Albumin 4.4 3.2 - 5.2 gm/dL [facility] Aspartate Aminotransferase 22 0 - 39 unit/L [facility] Alanine Aminotransferase 26 0 - 55 unit/L [facility] Alkaline Phosphatase 75 40 - 130 unit/L [facility] Bilirubin, Total 0.2 0.2 - 1.3 mg/dL [facility] Est Glomerular Filtration Rate 76 >=60 mL/min/1. 73 m?? [facility] Comment: The eGFR was calculated using the CKD-EPI equation. As with all creatinine based estimates of kidney function, eGFR values calculated with the CKD-EPI equation are not accurate in patients with acute kidney failure, extremes of body mass or the acutely ill. [email or web address]/DHnkf eGFR 88 >=60 mL/min/1. 73 m?? [facility] Comment: The eGFR was calculated using the CKD-EPI equation. As with all creatinine based estimates of kidney function, eGFR values calculated with the CKD-EPI equation are not accurate in patients with acute kidney failure, extremes of body mass or the acutely ill. http://[email or web address] Blood specimen (specimen) 03/28/2019 2:42 PM EST 03/28/2019 2:55 PM EST Narrative Resulting Agency Comment Spec In Lab Remy Barillas MD CHEMISTRY ORDERABLES [facility] [address] * PSA (Ultrasensitive) (03/28/2019 2:42 PM EST) Prostate Specific Antigen (Ultrasensitiv e) <0.01 0.00 - 4.00 ng/mL [facility] Blood specimen (specimen) 03/28/2019 2:42 PM EST 03/28/2019 2:55 PM EST Narrative Resulting Agency Comment Spec In Lab Remy Barillas MD CHEMISTRY ORDERABLES Performing Organization Address [facility] Co de Phone Number [facility] [address] * Research Venipuncture (03/28/2019 2:42 PM EST) Research Venipuncture Drawn [facility] Blood specimen (specimen) 03/28/2019 2:42 PM EST 03/28/2019 3:44 PM EST Narrative Resulting Agency Comment Spec In Lab Tre Walkre MD CHEMISTRY ORDERABLES Performing Organization Address [facility] Co de Phone Number [facility] [address] documented in this encounter Visit Diagnoses Diagnosis Prostate cancer metastatic to intrapelvic lymph node Malignant neoplasm of prostate documented in this encounter Care Teams Maintenance Groundman Relationship Specialty Start Date End Date Celio Sanders MD [address] [place] [address] PCP - General Internal Medicine 05/19/16 documented as of this encounter
--- OUTSIDE RECORDS SUMMARY | 2023-10-12 02:44 | XMS_ITS | Encounter Summary ---
Author Organization [facility] Address [facility] [place] [address] Care Team Providers Care Account Resolution Expert Name Role Phone Celio Sanders MD Primary Care Provider [phone] Encounter Details Date Type Department Care Team (Late Contact Info) Description 03/23/2019 Notes Only Hematology [place] [phone] Tre Walker MD [facility] DR HEMATOLOGY/[place] [address] Social History Tobacco Use Types Packs/Day Years [...] as of this encounter Progress Notes * Tre Walker MD - 03/23/2019 4:37 PM EST I have reviewed the patient's record and given personal and/or family history of cancer he should be seen by genetic counselor. This is scheduled for next week. documented in this encounter Plan of Treatment Upcoming Encounters Date Type Department Care Team (Late Contact Info) Description 10/24/2023 1:30 PM EDT Office Visit Hematology/Oncology at [address] [phone] Bisi Cheng APRN [facility] [place] [address] documented as of this encounter Visit Diagnoses Not on filedocumented in this encounter Care Teams Account Resolution Expert Relationship Specialty Start Date End Date Celio Sanders MD [address] [place] [address] PCP - General Internal Medicine 05/19/16 documented as of this encounter
--- OUTSIDE RECORDS SUMMARY | 2023-10-12 02:44 | XMS_ITS | Encounter Summary ---
[place] [address] Care Team Providers Care Grade And Center Marker Name Role Phone Celio Sanders MD Primary Care Provider [phone] Reason for Visit * Reason Comments Chemotherapy Lupron * Treatment/Therapy Plan Authorization (Routine) - Closed Specialty Diagnoses / Procedures Referred By Contac t Referred To Contact Diagnoses Prostate cancer metastatic to intrapelvic lymph node Gael Anderson MD [address] [place] [address] [facility] Hem Onc Office [address] [place] [phone] Referral ID Status Reason Start Date Expiration Date Visits Re quested Visits Authorized [id number] Closed 11/15/2017 11/15/2018 1 1 Encounter Details Date Type Department Care Team (Late st Contact Info) Description 08/18/2018 12:00 PM EDT Infusion Hematology Oncology at [address] [phone] Prostate cancer metastatic to intrapelvic [...] as of this encounter Progress Notes * Lianne Sim RN - 08/18/2018 12:00 PM [...] PM EDT Office Visit Hematology/Oncology at [address] [phone] Bisi Cheng APRN [facility] [place] [address] documented as of this encounter Visit Diagnoses [...] being given as an outpatient? Yes Given 08/18/2018 12:19 PM EDT 22.5 mg Left Gluteal documented in this encounter Care Teams Grade And Center Marker Relationship Specialty Start Date End Date Celio Sanders MD [address] [place] [address] PCP - General Internal Medicine 05/19/16 documented as of this encounter
--- OUTSIDE RECORDS SUMMARY | 2023-10-12 02:44 | XMS_ITS | Encounter Summary ---
[place] [address] Care Team Providers Care Scheduling Analyst Name Role Phone Celio Sanders MD Primary Care Provider [phone] Reason for Visit * Reason Comments Other lupron 22.5 mg * Treatment/Therapy Plan Authorization (Routine) - Closed Specialty Diagnoses / Procedures Referred By Contac t Referred To Contact Diagnoses Prostate cancer metastatic to intrapelvic lymph node Gael Anderson MD [address] [place] [address] [facility] Hem Onc Office [address] [place] [phone] Referral ID Status Reason Start Date Expiration Date Visits Re quested Visits Authorized [id number] Closed 11/15/2017 11/15/2018 1 1 Encounter Details Date Type Department Care Team (Late st Contact Info) Description 05/04/2019 11:30 AM EST Infusion Hematology Oncology at [address] [phone] Prostate cancer metastatic to intrapelvic [...] as of this encounter Progress Notes * Tracy Reno RN - 05/04/2019 11:30 AM [...] PM EDT Office Visit Hematology/Oncology at [address] [phone] Bisi Cheng APRN [facility] [place] [address] documented as of this encounter Visit Diagnoses [...] being given as an outpatient? Yes Given 05/04/2019 12:04 PM EST 22.5 mg Left Gluteal documented in this encounter Care Teams Scheduling Analyst Relationship Specialty Start Date End Date Celio Sanders MD [address] [place] [address] PCP - General Internal Medicine 05/19/16 documented as of this encounter
--- OUTSIDE RECORDS SUMMARY | 2023-10-12 02:44 | XMS_ITS | Encounter Summary ---
Author Organization [facility] Address [facility] [place] [address] Care Team Providers Care Fuel Truck Driver Name Role Phone Celio Sanders MD Primary Care Provider Encounter Details Date Type Department Care Team (Late st Contact Info) Description 04/04/2020 2:30 PM EST Office Visit Hematology/Oncology at [address] [phone] Remy Barillas MD [facility] [place] [address] Swathi Uriostegui APRN [address] [place] [address] DR HEMATOLOGY ONCOLOGY [place], [place] [id number] Prostate cancer metastatic to intrapelvic lymph node [...] 36.3 ??C (97.3 ??F) 04/04/2020 2:19 PM ES T Respiratory Rate 18 04/04/2020 2:19 PM EST Oxygen Saturation 98% 04/04/2020 2:19 PM EST Inhaled Oxygen Concentration - - Weight 76.9 kg (169 lb 8 oz) 04/04/2020 2:19 PM EST Height 160 cm (5' 2.99) 04/04/2020 2:19 PM EST Body Mass Index 30.03 04/04/2020 2:19 PM EST documented in this encounter Progress Notes * Swathi Uriostegui, GEOTHERMAL INSTALLER - 04/04/2020 2:30 PM EST Subjective: Patient [...] 5/12 cores (all on right side), T2b, [place] 8 Darlyn-neural invasion present PSA - 47.5 [...] a pathogenic variant (mutation) in BRCA2 specifically c.1929del(p.[id number]). 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 At the time of the appointment,??Tasiawas provided with a printed copy of his??test result and an informational packet addressing a positive test result. ?? The following??47??genes were evaluated for sequence changes and exonic deletions/duplications: APC, RUMA, AXIN2, BARD1, BMPR1A, BRCA1, BRCA2, BRIP1, CDH1, CDK4, CDKN2A (p14ARF), CDKN2A (b05DKG1j), CHEK2, CTNNA1, DICER1, EPCAM (EPCAM: Deletion/duplication testing [...] (VUS) in the AXIN2 and CTNNA1??genes, specifically c.1531A>T(p.[id number]) and c.515A>T (p.Xfr360Ydw), were??detected. ? Interpretation: The most significant consequences [...] with them. ?? [place]ain[place] ??They can go to the website of [...] and mailing address stay updated in the [facility] system, in order for us to [...] possibility in the future,??Dr. Ara Mary, a computer numeric control setter at [facility] in [place], is willing to discuss these screening options with Nain.??Nain??can schedule an appointment with her by reaching her retail furniture sales at [phone]. ?? Prostate Cancer Screening for Nain's sons ? Prostate cancer screening starting at age 40.?If either of them is found to not have the BRCA2 mutation then they can consider screening beginning at age 50 which is the recommendation for menin the general population ?? Skin cancer screening ?? Periodic skin exams ?? Colon cancer screening ?? Periodic colonoscopy screening as recommended by??Nain's computer numeric control setter. ?. ??SUMMARY ASSESSMENT/PLAN 07/24 He was diagnosed [...] PSA. ? Soc Hx: , lives in [place], [place]. He goes to [place] from December to June. 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 Fam Hx: Father with prostate cancer [...] as summarized above.) Nain returns to the [facility] oncology clinic in [facility] today for follow up surveillance visit [...] internal iliac LN. Nain returns to the [facility] oncology clinic in [facility] today for followup surveillance visit with [...] PM EDT Office Visit Hematology/Oncology at [address] [phone] Bisi Cheng APRN [facility] [place] [address] documented as of this encounter Visit Diagnoses Diagnosis Prostate cancer metastatic to intrapelvic lymph node documented in this encounter Care Teams Fuel Truck Driver Relationship Specialty Start Date End Date Celio Sanders MD [address] [place] [address] PCP - General Internal Medicine 05/19/16 documented as of this encounter
--- OUTSIDE RECORDS SUMMARY | 2023-10-12 02:44 | XMS_ITS | Encounter Summary ---
Author Organization [facility] Address [facility] [place] [address] Care Team Providers Care Software Quality Engineer Name Role Phone Celio Sanders MD Primary Care Provider [phone] Encounter Details Date Type Department Care Team (Late st Contact Info) Description 02/09/2019 2:30 PM EST Office Visit Hematology/Oncology at [address] [phone] Remy Barillas MD [facility] [place] [address] Dayana Tompkins, RN Malignant neoplasm of prostate Social [...] 36.6 ??C (97.9 ??F) 02/09/2019 2:33 PM ES T Respiratory Rate 16 02/09/2019 2:33 PM EST Oxygen Saturation 100% 02/09/2019 2:33 PM EST Inhaled Oxygen Concentration - - Weight 81.2 kg (179 lb 1.6 oz) 02/09/2019 2:33 P M EST Height - - Body Mass Index 31.73 08/06/2017 8:00 PM EDT documented in this encounter Progress Notes * Remy Barillas MD - 02/09/2019 2:30 PM [...] He is doing well overall. His weight leroy little lower but he attributes this to [...] had been benztropine for a tremor and during that time noted that he was getting up 4-5 times/night. He has been off of that for a period of time and is back to getting up 1-2 times/night. Soc Hx: , lives in [place], [place]. He goes to [place] from December to June. 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 [place] score was 8 in two of the [...] PM EDT Office Visit Hematology/Oncology at [address] [phone] Bisi Cheng APRN [facility] [place] [address] documented as of this encounter Visit Diagnoses Diagnosis Malignant neoplasm of prostate documented in this encounter Care Teams Software Quality Engineer Relationship Specialty Start Date End Date Celio Sanders MD [address] [place] [address] PCP - General Internal Medicine 05/19/16 documented as of this encounter
--- OUTSIDE RECORDS SUMMARY | 2023-10-12 02:45 | XMS_ITS | Encounter Summary ---
Author Organization [facility] [place] [address] Care Team Providers Care Securities Broker Name Role Phone Celio Sanders MD Primary Care Provider [phone] Reason for Visit * Reason Comments Injections Lupron Encounter Details Date Type Department Care Team (Late st Contact Info) Description 05/31/2016 9:30 AM EDT Infusion Hematology Oncology at [address] [phone] Malignant neoplasm of prostate Social History Tobacco Use Types Packs/Day Years Used Date Smoking Tobacco: Never Smokeless Tobacco: Never Alcohol Use Standard Drinks/Week Comments Yes 0 (1 standard drink = 0.6 oz pure alcohol) beer or wine a couple times a month Sex and Gender Information Value Date Recorded Sex Assigned at Not on file Gender Identity Not on file Sexual Orientation Not on file documented as of this encounter Progress Notes * Florencia Tuttle RN - 05/31/2016 9:30 AM [...] 1:30 PM EDT Office Visit Hematology/Oncology at [address] [phone] Bisi Cheng APRN [facility] [place] [address] documented as of this encounter Visit Diagnoses Diagnosis Malignant neoplasm of prostate documented in this encounter Administered Medications Inactive Administered Medications - up to 3 most recent administrations Medication Order MAR Action Action Date Dose Rate Site leuprolide (LUPRON) injection 22.5 mg 22.5 mg, Intramuscular, ONCE, 1 dose, On Tue05/31/16 at 1045, Routine Given 05/31/2016 10:33 AM EDT 22.5 mg Right Gluteal documented in this encounter Care Teams Securities Broker Relationship Specialty Start Date End Date Celio Sanders MD [address] [place] [address] PCP - General Internal Medicine 05/19/16 documented as of this encounter
--- OUTSIDE RECORDS SUMMARY | 2023-10-12 02:45 | XMS_ITS | Encounter Summary ---
Author Organization [facility] Address [facility] [place] [address] Care Team Providers Care Vp Digital Marketing Social Media And Crm Name Role Phone Celio Sanders MD Primary Care Provider [phone] Encounter Details Date Type Department Care Team (Late Contact Info) Description 08/04/2016 Orders Only [place] [phone] Matthew Pelaez MD [facility] [place] [address] 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 Social History Tobacco Use Types Packs/Day Years Used Date Smoking Tobacco: Never Smokeless Tobacco: Never Alcohol Use Standard Drinks/Week Comments Yes 0 (1 standard drink = 0.6 oz pure alcohol) beer or wine a couple times a month, if that Sex and Gender Information Value Date Recorded Sex Assigned at Not on file Gender Identity Not on file Sexual Orientation Not on file documented as of this encounter Plan of Treatment Upcoming Encounters Date Type Department Care Team (Late Contact Info) Description 10/24/2023 1:30 PM EDT Office Visit Hematology/Oncology at [address] [phone] Bisi Cheng APRN [facility] [place] [address] documented as of this encounter Visit Diagnoses Diagnosis 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 documented in this encounter Care Teams Vp Digital Marketing Social Media And Crm Relationship Specialty Start Date End Date Celio Sanders MD [address] [place] [address] PCP - General Internal Medicine 05/19/16 documented as of this encounter
--- OUTSIDE RECORDS SUMMARY | 2023-10-12 02:45 | XMS_ITS | Encounter Summary ---
Author Organization [facility] [place] [address] Care Team Providers Care Longwall Headgate Operator Name Role Phone Celio Sanders MD Primary Care Provider [phone] Reason for Visit * Reason Onset Date Comments Lorna 07/27/2017 Encounter Details Date Type Department Care Team (Late st Contact Info) Description 07/27/2017 Telephone Psychiatry [place] [phone] Angela Bowens RN Lorna Social History Tobacco Use Types Packs/Day Years [...] encounter Miscellaneous Notes * Telephone Encounter - Angela Bowens RN - 07/27/2017 12:47 PM EDT Patient called crisis line to inquire about a bed on the inpatient unit. I informed him that I was in outpatient and had no contact with the inpatient units, and inquired into his reason for the crisis line call. Patient reported that he was Manic, and didn't want to get into trouble or into that crazy stuff like in 2003. Apparently in 2003 he was arrested following an inpatient stay. Patienthas bipolar disorder, and is being treated for metastatic prostate cancer at the [facility] in [facility]. He reports that he has been in nursing home for 2 days. This was clarified to be voicemail nursing home for 2 days. In talking with the patient he further explained that his purpose of thecall was to inquire about an inpatient bed because he'd been put on prednisone 5mg daily, in June,to be taken with his chemotherapy medication (zytiga). Patient reported that his therapist, Jared, had seen him on Tuesday and told him to go check in. I spoke directly with Dr. Fleming, Nain has been stable for the last 4- 5 years taking lamictal 75mg daily. For episodes of Hypomania, his dosewas bumped up to 150mg daily as well as klonopin 2mg alternating with 50mg benadryl at night for sleep. Patient was achieving approximately 7 hours sleep with this [...] argumentative and hostile toward MD. Dr. Snyder suggested to patient to discontinue the current regimn due to his instability of mood. Patient became upset and believes that the dr doesn't understand what he(nain) is asking. When in fact,the instability of mood was not an issue until he started daily prednisone last month with this chemo med. Plan: Dr. Snyder suggested again, for patient to stop Prednisone and Zytiga given the situation.He reports that the patient's mental health and stability is more important at this current time. Patient's therapist was informed of this, and will take it from here. In contacting Nain and relaying that he should discontinue the medications and will discuss/provide guidance for patient to stabilize current mood. documented in this encounter Plan of Treatment Upcoming Encounters Date Type Department Care Team (Late st Contact Info) Description 10/24/2023 1:30 PM EDT Office Visit Hematology/Oncology at [address] [phone] Bisi Cheng APRN [facility] [place] [address] documented as of this encounter Visit Diagnoses Not on filedocumented in this encounter Care Teams Longwall Headgate Operator Relationship Specialty Start Date End Date Celio Sanders MD [address] [place] [address] PCP - General Internal Medicine 05/19/16 documented as of this encounter
--- OUTSIDE RECORDS SUMMARY | 2023-10-12 02:45 | XMS_ITS | Encounter Summary ---
Author Organization [facility] Address [facility] [place] [address] Care Team Providers Care Tree Expert Name Role Phone Celio Sanders MD Primary Care Provider [phone] Encounter Details Date Type Department Care Team (Late Contact Info) Description 07/27/2016 Telephone Radiation Oncology at [address] [phone] Harjeet Silvestre Social History Tobacco Use Types Packs/Day Years [...] encounter Miscellaneous Notes * Telephone Encounter - Harjeet Silvestre - 07/27/2016 [...] 1:30 PM EDT Office Visit Hematology/Oncology at [address] [phone] Bisi Cheng APRN [facility] [place] [address] documented as of this encounter Visit Diagnoses Not on filedocumented in this encounter Care Teams Tree Expert Relationship Specialty Start Date End Date Celio Sanders MD [address] [place] [address] PCP - General Internal Medicine 05/19/16 documented as of this encounter
--- OUTSIDE RECORDS SUMMARY | 2023-10-12 02:45 | XMS_ITS | Encounter Summary ---
Author Organization [facility] [place] [address] Care Team Providers Care Senior Loan Processor Name Role Phone Celio Sanders MD Primary Care Provider Encounter Details Date Type Department Care Team (Late st Contact Info) Description 09/23/2016 12:00 PM EDT Office Visit Radiation Oncology at [address] [phone] Ronnie Vazquez MD [address] [place] [address] DR RADIATION ONCOLOGY [place], [place] [id number] Cancer of prostate with high recurrence risk (stage T3a or [place] 8-10 or PSA > 20) Social History Tobacco Use Types Packs/Day Years [...] 36.7 ??C (98.1 ??F) 09/23/2016 11:00 AM E DT Respiratory Rate 18 09/23/2016 11:00 AM EDT Oxygen Saturation 98% 09/23/2016 11:00 AM EDT Inhaled Oxygen Concentration - - Weight 83 kg (183 lb) 09/23/2016 11:00 AM EDT sh oes off Height - - Body Mass Index 31.87 09/03/2016 7:58 AM EDT documented in this encounter Progress Notes * Ronnie Vazquez MD - 09/23/2016 12:00 PM EDT Images from the original note were not included. RADIATION ONCOLOGY - Weekly On Treatment Visit Note 09/23/16 Ronnie Vazquez MD Radiation Oncology [facility] [phone] (paging electric shipyard operator) PATIENT IDENTIFICATION NAME: Nain Mckeon DATE [...] 3x / night (up from 1x/nt at baseline).Weak stream but denies straining. Denies other LUTS or dysuria. GI - Diarrhea earlier this week with incontinence. Resolved with Imodium and dietary modifications. Pain: Pain score today is 0/10. Medications 09/23/16 1215 Medication Sig Taking? calcium-vitamin D 500 mg(1,250mg) [...] 1:30 PM EDT Office Visit Hematology/Oncology at [address] [phone] Bisi Cheng APRN [facility] [place] [address] documented as of this encounter Visit Diagnoses Diagnosis Cancer of prostate with high recurrence risk (stage T3a or [place] 8-10 or PSA > 20) Malignant neoplasm of prostate documented in this encounter Care Teams Senior Loan Processor Relationship Specialty Start Date End Date Celio Sanders MD [address] [place] [address] PCP - General Internal Medicine 05/19/16 documented as of this encounter
--- OUTSIDE RECORDS SUMMARY | 2023-10-12 02:45 | XMS_ITS | Encounter Summary ---
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 [place] [address] [place] [address] Referral ID Status Reason Start Date Expiration Date V isits Requested Visits Authorized [id number] Closed Specialty Service Requested 07/09/2016 07/09/2017 1 1 Encounter Details Date Type Department Care Team (Latest Contact Info) Description 08/13/2016 1:41 PM EDT - 08/13/2016 11:59 PM EDT Hospital [place] [phone] 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 LEVOTHYROXINE SODIUM (LEVOTHROID ORAL) Take 75 mcg by mouth daily. mirtazapine (REMERON) 30 mg Tablet Take 30 mg by mouth nightly. 08/06/2017 clonazePAM (KLONOPIN) 2 mg Tablet Take 2 mg by mouth nightly. 08/15/2017 lamoTRIgine (LAMICTAL) 150 mg Tablet Take 150 mg by mouth daily. 08/15/2017 documented as of this encounter Plan of Treatment Upcoming Encounters Date Type Department Care Team (Late st Contact Info) Description 10/24/2023 1:30 PM EDT Office Visit Hematology/Oncology at [address] [phone] 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 ??Limited MRI performed for radiation treatment planning purposes. 2. ??Based on T2 signal alone, there is suspected malignancy in the right peripheral zone with extraprostatic extension. 3. ??Suspicious right internal iliac and right common femoral lymph nodes based on size and morphology. Narrative 08/15/2016 8:55 AM EDT EXAMINATION: MRI PELVIS SOFT TISSUE (GI CUPOLA PATCHER HELPER) WO CONTRAST CLINICAL HISTORY: Prostate cancer for RT planning. ??Please include close-cut (1.5-2.0 mm), contiguous, axial T2 images for 3-D volume definition of gland. COMPARISON: No available comparison MRI TECHNIQUE: Noncontrast MRI of the pelvis was performed. FINDINGS: Prostate: Measures approximately 40 x 52 x 51 mm (calculated volume of 55 cc). There are bilateral signal voids compatible with fiducial markers. There are mostly right-sided hyperintense foci on T1 WI compatible with blood products. There is T2 hypointensity in the mid and right-sided posterior peripheral zone, which appears to extend beyond the prostate margin and possibly involving the right neurovascular bundle. There is edema/fluid between the prostate and rectum likely resulting from prior biopsy. Seminal vesicles: Although the seminal vesicles are not fully distended, there is asymmetric T2 hypointensity in the right seminal vesicle suspicious for involvement by prostate malignancy. Lymph nodes: Mildly enlarged 9 mm right internal iliac with rounded morphology. There are also rounded and enlarged right common femoral lymph nodes measuring 9 and 10 mm respectively. Urinary bladder: Unremarkable Osseous involvement: None Procedure Note Isac Hearn MD - 08/15/2016 EXAMINATION: MRI PELVIS SOFT TISSUE (GI CUPOLA PATCHER HELPER) WO CONTRAST CLINICAL HISTORY: Prostate cancer for RT planning. Please includeclose-cut (1.5-2.0 mm), contiguous, axial T2 images for 3-D volume definition ofgland. COMPARISON: No available comparison MRI TECHNIQUE: Noncontrast MRI of the pelvis was performed. FINDINGS: Prostate: Measures approximately 40 x 52 x 51 mm (calculated volume of 55cc). There are bilateral signal voids compatible with fiducial markers. Thereare mostly right-sided hyperintense foci on T1 WI compatible with bloodproducts. There is T2 hypointensity in the mid and right-sided posterior peripheralzone, which appears to extend beyond the prostate margin and possibly involvingthe right neurovascular bundle. There is edema/fluid between the prostate andrectum likely resulting from prior biopsy. Seminal vesicles: Although the seminal vesicles are not fully distended,there is asymmetric T2 hypointensity in the right seminal vesicle suspiciousfor involvement by prostate malignancy. Lymph nodes: Mildly enlarged 9 mm right internal iliac with roundedmorphology. There are also rounded and enlarged right common femoral lymph nodesmeasuring 9 and 10 mm respectively. Urinary bladder: Unremarkable Osseous involvement: None IMPRESSION 1. Limited MRI performed for radiation treatment planning purposes. 2. Based on T2 signal alone, there is suspected malignancy in the right peripheral zone with extraprostatic extension. 3. Suspicious right internal iliac and right common femoral lymph nodesbased on size and morphology. 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
--- OUTSIDE RECORDS SUMMARY | 2023-10-12 02:45 | XMS_ITS | Encounter Summary ---
Author Organization [facility] [place] [address] Care Team Providers Care Multiple Spindle Router Operator Name Role Phone Celio Sanders MD Primary Care Provider [phone] Reason for Referral * Consultation (Routine) - Specialty Diagnoses / Procedures Referred By Contac t Referred To Contact Diagnoses Cancer of prostate with high recurrence risk (stage T3a or [place] 8-10 or PSA > 20) Ronnie Vazquez MD [address] [place] [address] [place] [address] Referral ID Status Reason Start Date Expiration Date V isits Requested Visits Authorized [id number] Consult, Test & Treat 11/19/2016 05/18/2017 1 1 Encounter Details Date Type Department Care Team (Late st Contact Info) Description 11/18/2016 10:00 AM EDT Office Visit Radiation Oncology at [address] [phone] Ronnie Vazquez MD [address] [place] [address] [place] [address] Cancer of prostate with high recurrence risk (stage T3a or [place] 8-10 or PSA > 20) Social History [...] 36.6 ??C (97.9 ??F) 11/18/2016 10:15 AM E DT Respiratory Rate 18 11/18/2016 10:15 AM EDT Oxygen Saturation 96% 11/18/2016 10:15 AM EDT Inhaled Oxygen Concentration - - Weight 82 kg (180 lb 12.8 oz) 11/18/2016 10:15 A M EDT Height - - Body Mass Index 31.48 09/03/2016 7:58 AM EDT documented in this encounter Progress Notes * Ronnie Vazquez MD - 11/18/2016 10:00 AM EDT Images from the original note were not included. RADIATION ONCOLOGY - End of Treatment Visit Note 11/18/16 Ronnie Vazquez MD Radiation Oncology [facility] [phone] (paging metal sponge making machine operator) PATIENT IDENTIFICATION NAME: Nain [...] have largely returned back to normal. Plans to drive to [place], [place] with his and dog in the next few weeks. He saw Dr. Snyder last week, who did not recommend any further systemic therapy other than GnRH therapy, as he has been receiving. - Flomax 0.4 mg ongoing, helps with stream and nocturia which varies between 2-4x / night (stillup from 1x/nt at baseline). Denies other LUTS or dysuria. IPSS = 9/ (versus 21/3 at baseline). GI - No diarrhea or bleeding. Pain: Pain score today is 0/10. Medications 11/18/16 1048 Medication Sig Taking? loperamide (IMODIUM A-D) 2 mg Tablet Take by mouth 4 times daily as needed for Diarrhea. Maximum 16mg in 24 hours Yes tamsulosin (FLOMAX) 0.4 [...] tablet by mouth every 8 hours as neededfor Nausea. Patient not taking: Reported on 11/18/2016 Imaging / Laboratory Studies: I have personally reviewed this patient's interval portal imaging to confirm accurate positioning and alignment which matches the patient's original approved treatment planning images. No other interval studies for review. EXAM: BP 132/70 (Patient Position: Sitting) Pulse 91 Temp 36.6 ??C (97.9 ??F) (Oral) Resp 18 Wt 82 kg (180 lb 12.8 oz) SpO2 96% BMI [...] from radiotherapy. Plan: He will be in [place] for next few months and would like to establish care with an oncologist there locally. We will contact [facility] ( ) to make a referral for Lupron and PSA in 3 months. RV here in 9 months. This patient was seen within 90 days of treatment, so this encounter constitutes a no-charge globalvisit. documented in this encounter Miscellaneous Notes * Addendum Note - Ronnie Vazquez MD - 11/19/2016 7:14 AM EDTAddended by: RONNIE VAZQUEZ on: 11/19/2016 07:14 AM Modules accepted: Orders documented in this encounter Plan of Treatment Upcoming Encounters Date Type Department Care Team (Late st Contact Info) Description 10/24/2023 1:30 PM EDT Office Visit Hematology/Oncology at [address] [phone] Bisi Cheng APRN [facility] [place] [address] Scheduled Referrals Name Type Priority Associated Diagnoses Orde r Schedule Referral to Radiation Oncology Outpatient Referral Routine Cancer of prostate with high recurrence risk (stage T3a or [place] 8-10 or PSA > 20) Ordered: 11/19/2016 documented as of this encounter Visit Diagnoses Diagnosis Cancer of prostate with high recurrence risk (stage T3a or Andre 8-10 or PSA > 20) Malignant neoplasm of prostate documented in this encounter Care Teams Multiple Spindle Router Operator Relationship Specialty Start Date End Date Celio Sanders MD [address] [place] [address] PCP - General Internal Medicine 05/19/16 documented as of this encounter
--- OUTSIDE RECORDS SUMMARY | 2023-10-12 02:45 | XMS_ITS | Encounter Summary ---
Author Organization [facility] [place] [address] Care Team Providers Care Route Delivery Driver Name Role Phone Celio Sanders MD Primary Care Provider [phone] Encounter Details Date Type Department Care Team (Late st Contact Info) Description 07/22/2016 9:40 AM EDT Clinical Support Same Day at [facility] [place] [phone] Social History Tobacco Use Types Packs/Day Years [...] kg (182 lb 3.2 oz) 07/22/2016 9:10 A M EDT Height 162.6 cm (5' 4) 07/22/2016 9:10 AM EDT Body Mass Index 31.27 07/22/2016 9:10 AM EDT documented in this encounter Progress Notes * Diana Champagne RN - 07/22/2016 9:40 AM EDT PAT questionnaire reviewed with patient and while in Pre Admission testing. Patient denies anyproblems with anesthesia in the past. Pre-operative instruction booklet reviewed. Patient verbalizes a good understanding of all information. PLAN Testing: None ordered. Special medication instructions: n/a Procedure date: 08/03/16 - Dr. Pelaez. documented in this encounter Plan of Treatment Upcoming Encounters Date Type Department Care Team (Late st Contact Info) Description 10/24/2023 1:30 PM EDT Office Visit Hematology/Oncology at [address] [phone] Bisi Cheng APRN [facility] [place] [address] documented as of this encounter Visit Diagnoses Not on filedocumented in this encounter Care Teams Route Delivery Driver Relationship Specialty Start Date End Date Celio Sanders MD [address] [place] [address] PCP - General Internal Medicine 05/19/16 documented as of this encounter
--- OUTSIDE RECORDS SUMMARY | 2023-10-12 02:45 | XMS_ITS | Encounter Summary ---
Author Organization [facility] Address [facility] [place] [address] Care Team Providers Care Dump Truck Driver Off Highway Name Role Phone Celio Sanders MD Primary Care Provider [phone] Reason for Visit * Reason Comments Follow-up Encounter Details Date Type Department Care Team (Late st Contact Info) Description 07/26/2017 3:30 PM EDT Office Visit Hematology/Oncology at [address] [phone] Harjinder Snyder MD [facility] [place] [address] Malignant neoplasm of prostate; Neoplasm of prostate regional lymph node staging [...] 36.2 ??C (97.2 ??F) 07/26/2017 3:52 PM ED T Respiratory Rate 18 07/26/2017 3:52 PM EDT Oxygen Saturation 99% 07/26/2017 3:52 PM EDT Inhaled Oxygen Concentration - - Weight 80.3 kg (177 lb) 07/26/2017 3:52 PM EDT Height 161.4 cm (5' 3.54) 07/26/2017 3:52 PM ED T copied Body Mass Index 30.82 07/26/2017 3:52 PM EDT documented in this encounter Progress Notes * Harjinder Snyder MD - 07/26/2017 3:30 PM [...] Andre 4+4 disease in 2 cores and Warsaw 4+3 disease in 3 additional cores. All [...] decrease in muscle strength. Nain noted improvement inhis urinary symptoms. ?? Interval history: Mr. Mckeon is in clinic for follow-up appointment on prostate cancer. [place]ologist in [place] initiated abiraterone 250 mg daily with low-fat diet and prednisone 5 mg a day about 4 weeks ago. Nain feels that his bipolar disorder is [id number]-zudthzk, buthe follows with therapist on that matter. He feels that prednisone is contributing to his brayan andanxiety. He denies any pain. PMH: He is [...] of education: N/A Occupational History ??? 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 A - Prostatic core needle biopsy, right lateral base: ? 1. Adenocarcinoma, grade group 3, Andre grade 4+3, ?involving 95% of the biopsy core. ? 2. Perineural invasion identified. B - Prostatic core needle biopsy, right medial base: ? 1. Adenocarcinoma, grade group 3, Warsaw grade 4+3, ?involving 95% of the biopsy core. ? 2. Perineural invasion identified. C - Prostatic core needle biopsy, right mid lateral: ? Adenocarcinoma, grade group 4, Andre grade 4+4, ? involving 90% of the biopsy core. D - Prostatic core needle biopsy, right mid medial: ? 1. Adenocarcinoma, grade group 4, Warsaw grade 4+4, ?involving 40% of the biopsy [...] Prostate adenocarcinoma, PSA 47.5, Andre 4+4=8/10, Stage [id number]. Treatment: - 05/31/16 Lupron 22.5 and bicalutamide [...] on empty stomach. Due to financial constraints and based on the small clinical phase II trial he is using 250 mg of abiraterone. (Prospective International Randomized Phase II Study of Low-Dose Abiraterone With Food Versus Standard Dose Abiraterone In Castration- Resistant Prostate Cancer. Minesh de leon. Clinical Oncology 36, no. 14 (Jul 14 2017) [phone]). He is concerned that prednisone is contributing [...] to thank Dr. Sanders and Dr. 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
--- OUTSIDE RECORDS SUMMARY | 2023-10-12 02:45 | XMS_ITS | Encounter Summary ---
Author Organization [facility] Address [facility] [place] [address] Care Team Providers Care Pan Cleaner Name Role Phone Celio Sanders MD Primary Care Provider [phone] Encounter Details Date Type Department Care Team (Late st Contact Info) Description 07/08/2016 Telephone Radiation Oncology at [address] [phone] Alta Rowland RN Social History [...] Telephone Encounter - Alta Muse RN - 07/08/2016 9:15 AM EDT Radiation Oncology Nurse Telephone Note [facility] [place], [place] 07/08/16 called patient to clarify medications [...] week if he has not heard from [facility] for this consult. He expressed appreciation for this call. documented in this encounter Plan of Treatment Upcoming Encounters Date Type Department Care Team (Late st Contact Info) Description 10/24/2023 1:30 PM EDT Office Visit Hematology/Oncology at [address] [phone] Bisi Cheng APRN [facility] [place] [address] documented as of this encounter Visit Diagnoses Not on filedocumented in this encounter Care Teams Pan Cleaner Relationship Specialty Start Date End Date Celio Sanders MD [address] [place] [address] PCP - General Internal Medicine 05/19/16 documented as of this encounter
--- OUTSIDE RECORDS SUMMARY | 2023-10-12 02:45 | XMS_ITS | Encounter Summary ---
[place] [address] Care Team Providers Care Adjusto Writer Operator Name Role Phone Celio Sanders MD Primary Care Provider [phone] Encounter Details Date Type Department Care Team (Late Contact Info) Description 08/04/2016 Telephone [place] [phone] Lisa Sameuls Social History Tobacco Use Types Packs/Day Years [...] encounter Miscellaneous Notes * Telephone Encounter - Lisa Samuels - 08/04/2016 [...] PM EDT Office Visit Hematology/Oncology at [address] [phone] Bisi Cheng APRN [facility] [place] [address] documented as of this encounter Visit Diagnoses Not on filedocumented in this encounter Care Teams Adjusto Writer Operator Relationship Specialty Start Date End Date Celio Sanders MD [address] [place] [address] PCP - General Internal Medicine 05/19/16 documented as of this encounter
--- OUTSIDE RECORDS SUMMARY | 2023-10-12 02:45 | XMS_ITS | Encounter Summary ---
Author Organization [facility] Address [facility] [place] [address] Care Team Providers Care Pipeline Construction Inspector Name Role Phone Celio Sanders MD Primary Care Provider [phone] Reason for Visit * Consultation (Urgent) - Closed Specialty Diagnoses / Procedures Referred By Tess de la rosa Referred To Contact Urology Diagnoses prostate cancer, new dx Elias Curran MD [address] [place] [address] Nehemiah Pham MD [facility] [place] [address] Referral ID Status Reason Start Date Expiration Date V isits Requested Visits Authorized [id number] Closed Consult, Test & Treat Connection Center 05/14/2016 05/14/2017 1 1 Encounter Details Date Type Department Care Team (Late st Contact Info) Description 05/27/2016 3:40 PM EDT Office Visit [place]ematology [place] [address] Nehemiah Pham MD [facility] DR UROLOGY DEPT. [place], [place] [id number] Malignant neoplasm of prostate Social History Tobacco [...] 161.5 cm (5' 3.58) 05/27/2016 2:44 PM ED T Body Mass Index 31.63 05/27/2016 2:44 PM EDT documented in this encounter Progress Notes * Nehemiah Pham MD - 05/27/2016 3:40 PM [...] All disease involved the right side of thegland which was 57 cc in size. In addition perineural invasion was noted. DIAGNOSIS CONSULTATION CASE Extradepartmental number: ??[id number]; collection date, 04/27/2016. A - Prostatic core needle biopsy, right lateral base: ? 1. Adenocarcinoma, grade group 3, Andre grade 4+3, ?involving 95% of the biopsy core. ? 2. Perineural invasion identified. B - Prostatic core needle biopsy, right medial base: ? 1. Adenocarcinoma, grade group 3, [place] grade 4+3, ?involving 95% of the biopsy [...] and straining with nocturia once nightly. Urinary [id number] = 3. ? Past??Medical??History Past Medical History: [...] 05/12/16) Other prognostic factors: +PNI [place] [facility] Y ?? Imaging Review: I have personally reviewed the images from the CT of the abdomen and pelvis dated 05/12/2016 findings as per HPI of enlarged prostate with suspicious appearing right internal iliac node. Substation Inspector image is shown below for reference. ? A: 65 yo man with high risk prostate cancer (Andre 8, PSA 47.5, clinical T2b) Enlarged internal [...] risk of micrometastatic disease as well w/ Andre 8 and PSA 47. I recommended that he proceed w/ XRT/ADT which has supportive data for locoregional disease. RP outside the setting of a clinical trial would be inappropriate. I do not believe he benefits from biopsy of lymph node based on very high pre test probability of LNI. He does not describe particularly bothersome LUTS today, though he has commented on these prior. Wediscussed that ADT can shrink the prostate and [...] He agrees and I recommended that these be done in [facility]. I will send this note [...] PM EDT Office Visit Hematology/Oncology at [address] [address] Bisi Cheng APRN [facility] [place] [address] documented as of this encounter Visit Diagnoses Diagnosis Malignant neoplasm of prostate documented in this encounter Care Teams Pipeline Construction Inspector Relationship Specialty Start Date End Date Celio Sanders MD [address] [place] [address] PCP - General Internal Medicine 05/19/16 documented as of this encounter
--- OUTSIDE RECORDS SUMMARY | 2023-10-12 02:45 | XMS_ITS | Encounter Summary ---
Author Organization [facility] [place] [address] Care Team Providers Care Environmental Projects Advisor Name Role Phone Celio Sanders MD Primary Care Provider [phone] Reason for Visit * Reason Comments Simulation Encounter Details Date Type Department Care Team (Late st Contact Info) Description 08/13/2016 12:00 PM EDT Ancillary Appointment [place] [phone] Ronnie Vazquez MD [address] [place] [address] [place] [address] Social History Tobacco Use Types Packs/Day Years [...] documented as of this encounter Patient Instructions * Patient Instructions* Lili Darling RN - 08/13/2016 12:00 PM EDT [...] your bladder tissue from the radiation and helpskeep some of your bowel out of the treatment area. About 2 weeks after simulation you will begin radiation treatments. What to Expect During Treatments. ?? Treatments are given in 15-30 minutes increments daily Tuesday through Tuesday during the hours of7:30 am- 5 pm. ?? You may drive yourself to and from these appointments. You may request a certain time of day that is convenient for you. ?? You may start [...] weaker. You may have some discomfort when youurinate. ?? Please tell the nurse or your doctor if you experience any of these symptoms. ?? You may notice a change in your bowel patterns. Your bowel movements may be more frequent and/orloose. ?? If you develop bowel symptoms, please let the nurse or your doctor know. Please ask the nurse or your doctor if you have any questions or concerns about your personalized course of treatment. documented in this encounter Progress Notes * Ronnie Vazquez MD - 08/13/2016 12:00 PM EDT Simulation Note for External Beam Radiation Treatment Planning [facility] Laith Mckeon is a 65 y.o. [...] at risk. These images will be used tocreate a customized treatment plan employing multileaf collimators and beams-eye view to treat the target to prescription dose while maximally sparing organs at risk, with the overall goal of maximizing the likelihood of a favorable disease response while minimizing the likelihood of any short termside effects or mcc complications of therapy. I anticipate his prescription dose will be 79.2 Gy to the prostate, delivered in daily 1.8 Gy fractions over the course of 9.5 weeks. Anticipate therapy to begin within the next 10 days. Furthermore,I anticipate this patient will require IMRT or VMAT treatment planning and delivery as the criticaltreatment volume of interest (in this case, pelvic lymphatics, seminal vesicles, and prostate) is/ar e irregular and in close proximity to sensitive [...] 1:30 PM EDT Office Visit Hematology/Oncology at [address] [phone] Bisi Cheng RETAIL LOSS PREVENTION OFFICER [facility] [place] [address] documented as of this encounter Visit Diagnoses Not on filedocumented in this encounter Care Teams Environmental Projects Advisor Relationship Specialty Start Date End Date Celio Sanders MD [address] [place] [address] PCP - General Internal Medicine 05/19/16 documented as of this encounter
--- OUTSIDE RECORDS SUMMARY | 2023-10-12 02:45 | XMS_ITS | Encounter Summary ---
Author Organization [facility] Address [facility] [place] [address] Care Team Providers Care Imager Name Role Phone Celio Sanders MD Primary Care Provider [phone] Encounter Details Date Type Department Care Team (Late st Contact Info) Description 10/18/2016 Telephone Radiation Oncology at [address] [phone] Alta Rowland RN Social History [...] PM EDT Radiation Oncology Nurse Telephone Note [facility] [place], [place] Patient calls c/o mild nausea. He has not vomited and he is still able to eat. He denies heart burn. His last watery stool was about a day ago. He is having soft , more frequent stools and is eating abland low fiber diet. He states he feels some soreness internally inside the anus. He denies pain to skin surrounding anus or any blood in his stools. He is currently taking Advil 2 tabs once a day and he will try taking it twice a day to see if thathelps with the rectal discomfort. Dr Vazquez notified of above. He ordered zofran 8mg ODT Patient informed of this. He was instructed to contact clinic if he develops rectal bleeding and ormore sever pain or if the zofran does not help his nausea. Patient verbalized understanding of these instructions. documented in this encounter Plan of Treatment Upcoming Encounters Date Type Department Care Team (Late st Contact Info) Description 10/24/2023 1:30 PM EDT Office Visit Hematology/Oncology at [address] [phone] Bisi Cheng APRN [facility] [place] [address] documented as of this encounter Visit Diagnoses Diagnosis Malignant neoplasm of prostate documented in this encounter Care Teams Imager Relationship Specialty Start Date End Date Celio Sanders MD [address] [place] [address] PCP - General Internal Medicine 05/19/16 documented as of this encounter
--- OUTSIDE RECORDS SUMMARY | 2023-10-12 02:45 | XMS_ITS | Encounter Summary ---
Author Organization [facility] [place] [address] Care Team Providers Care Hot Header Operator Name Role Phone Celio Sanders MD Primary Care Provider [phone] Reason for Visit * Reason Comments Injections Lupron Encounter Details Date Type Department Care Team (Late st Contact Info) Description 11/18/2016 10:30 AM EDT Infusion Hematology Oncology at [address] [phone] Neoplasm of prostate regional lymph node staging [...] Progress Notes * Caio Venegas RN - 11/18/2016 10:30 AM [...] 1:30 PM EDT Office Visit Hematology/Oncology at [address] [phone] Bisi Cheng APRN [facility] [place] [address] documented as of this encounter Procedures Procedure Name Priority Date/Time Associated Diagnosis Comments LAB SCAN 03/23/2016 12:00 AM EST documented in this encounter Results * SCAN DOC: LAB (03/23/2016 12:00 AM EST) Narrative 03/23/2016 12:00 AM EST Ordered by an unspecified provider. Scanning Provider [...] dose, On Colleen 11/18/16 at 1115, Routine Given 11/18/2016 11:05 AM EDT 22.5 mg Left Gluteal documented in this encounter Care Teams Hot Header Operator Relationship Specialty Start Date End Date Celio Sanders MD [address] [place] [address] PCP - General Internal Medicine 05/19/16 documented as of this encounter
--- OUTSIDE RECORDS SUMMARY | 2023-10-12 02:45 | XMS_ITS | Encounter Summary ---
Author Organization [facility] [place] [address] Care Team Providers Care Stem Crusher Name Role Phone Celio Sanders MD Primary Care Provider Encounter Details Date Type Department Care Team (Late st Contact Info) Description 08/26/2016 7:45 AM EDT Office Visit [place] [address] Social History Tobacco Use Types Packs/Day Years [...] PM EDT Office Visit Hematology/Oncology at [address] [phone] Bisi Cheng APRN [facility] [place] [address] documented as of this encounter Visit Diagnoses Not on filedocumented in this encounter Care Teams Stem Crusher Relationship Specialty Start Date End Date Celio Sanders MD [address] [place] [address] PCP - General Internal Medicine 05/19/16 documented as of this encounter
--- OUTSIDE RECORDS SUMMARY | 2023-10-12 02:45 | XMS_ITS | Encounter Summary ---
Author Organization [facility] [place] [address] Care Team Providers Care Rn Review Name Role Phone Celio Sanders MD Primary Care Provider [phone] Encounter Details Date Type Department Care Team (Late Contact Info) Description 07/29/2016 Telephone [place] [phone] Nicky Marcelo Social History Tobacco Use Types Packs/Day Years [...] encounter Miscellaneous Notes * Telephone Encounter - Nicky Marcelo - 07/29/2016 11:06 AM EDT L/M ON BOTH PHONES ASKING THE PA TO LET US KNOW IF HE WANTS THE SPACE OAR GEL documented in this encounter Plan of Treatment Upcoming Encounters Date Type Department Care Team (Late Contact Info) Description 10/24/2023 1:30 PM EDT Office Visit Hematology/Oncology at [address] [phone] Bisi Cheng APRN [facility] [place] [address] documented as of this encounter Visit Diagnoses Not on filedocumented in this encounter Care Teams Rn Review Relationship Specialty Start Date End Date Celio Sanders MD [address] [place] [address] PCP - General Internal Medicine 05/19/16 documented as of this encounter
--- OUTSIDE RECORDS SUMMARY | 2023-10-12 02:45 | XMS_ITS | Encounter Summary ---
Author Organization [facility] [place] [address] Care Team Providers Care Airframe Design Engineer Name Role Phone Celio Sanders MD Primary Care Provider [phone] Encounter Details Date Type Department Care Team (Late st Contact Info) Description 09/21/2016 Telephone Radiation Oncology at [address] [phone] Alta Rowland RN Social [...] PM EDT Radiation Oncology Nurse Telephone Note [facility] [place], [place] Patient has received 19FXs, 3420 cGy To the pelvis For treatment of prostate cancer. Side effects that patient is experiencing: Patient wrote email to Dr Vazquez about having diarrhea. Dr Vazquez sent message to this author that he advised patient take imodium and asked that [...] over this diarrhea management in person with him tomorrow after his daily treatment, otherwise we will see him for weekly OTV and will provide printed diarrhea management patient info. Plan: Weekly on-treatment visit every w/ Dr Vazquez and daily visits prn with nursing documented in this encounter Plan of Treatment Upcoming Encounters Date Type Department Care Team (Late st Contact Info) Description 10/24/2023 1:30 PM EDT Office Visit Hematology/Oncology at [address] [phone] Bisi Cheng APRN [facility] [place] [address] documented as of this encounter Visit Diagnoses Not on filedocumented in this encounter Care Teams Airframe Design Engineer Relationship Specialty Start Date End Date Celio Sanders MD [address] [place] [address] PCP - General Internal Medicine 05/19/16 documented as of this encounter
--- OUTSIDE RECORDS SUMMARY | 2023-10-12 02:45 | XMS_ITS | Encounter Summary ---
Author Organization [facility] [place] [address] Care Team Providers Care Driver Guard Name Role Phone Celio Sanders MD Primary Care Provider [phone] Encounter Details Date Type Department Care Team (Late st Contact Info) Description 11/02/2016 Telephone Hematology and Oncology at [facility] [place] [phone] Social History Tobacco Use Types Packs/Day Years [...] encounter Miscellaneous Notes * Telephone Encounter - Kimberly Cobb RD - [...] supplement to look for NSF international or DETENTION seals and advised to hold on during chemotx or if taking any medications which may interact. Will continue to remain available prn. documented in this encounter Plan of Treatment Upcoming Encounters Date Type Department Care Team (Late st Contact Info) Description 10/24/2023 1:30 PM EDT Office Visit Hematology/Oncology at [address] [phone] Bisi Cheng APRN [facility] [place] [address] documented as of this encounter Visit Diagnoses Not on filedocumented in this encounter Care Teams Driver Guard Relationship Specialty Start Date End Date Celio Sanders MD [address] [place] [address] PCP - General Internal Medicine 05/19/16 documented as of this encounter
--- OUTSIDE RECORDS SUMMARY | 2023-10-12 02:45 | XMS_ITS | Encounter Summary ---
Author Organization [facility] Address [facility] [place] [address] Care Team Providers Care Nursing Assoc Name Role Phone Celio Sanders MD Primary Care Provider [phone] Encounter Details Date Type Department Care Team (Late st Contact Info) Description 10/15/2016 12:00 PM EDT Infusion Hematology Oncology at [address] [phone] Malignant neoplasm of prostate Social History Tobacco [...] as of this encounter Progress Notes * Alta Muse RN - 10/15/2016 12:00 PM EDT Radiation Oncology Nurse Note [place], [place] 10/15/16 11:25 AM Patient states that he has 5 loose stools this morning and he is having trouble holding his bladderfor the treatments with freq diarrhea. He asked [...] is not relieved after 8 tabs. Call: [phone] [facility] ([facility]) weekend/holidays: call [facility] ask for the mental retardation nurse Radiation Oncologist He states that he is eating bland food and had shredded wheat this morning. I instructed patient that shredded wheat is high in fiber and will cause more diarrhea. Patient verbalized understanding of these instructions. 12:15 Radiation Therapists informed me that patient was unable to stay on the treatment table due to diarrhea and went home. documented in this encounter Plan of Treatment Upcoming Encounters Date Type Department Care Team (Late st Contact Info) Description 10/24/2023 1:30 PM EDT Office Visit Hematology/Oncology at [address] [phone] Bisi Cheng POLICY OFFICER [facility] [place] [address] documented as of this encounter Visit Diagnoses Diagnosis Malignant neoplasm of prostate documented in this encounter Administered Medications Inactive Administered Medications - up to 3 most recent administrations Medication Order MAR Action Action Date Dose Rate Site loperamide (IMODIUM) capsule 2 mg 2 mg, Oral, ONCE, 1 dose, On Tue10/15/16 at 1200, Do not exceed 16 mg/day., Routine Given 10/15/2016 11:40 AM EDT 2 mg documented in this encounter Care Teams Nursing Assoc Relationship Specialty Start Date End Date Celio Sanders MD [address] [place] [address] PCP - General Internal Medicine 05/19/16 documented as of this encounter
--- OUTSIDE RECORDS SUMMARY | 2023-10-12 02:45 | XMS_ITS | Encounter Summary ---
Author Organization [facility] Address [facility] [place] [address] Care Team Providers Care Manager Strategy Name Role Phone Celio Sanders MD Primary Care Provider [phone] Encounter Details Date Type Department Care Team (Late st Contact Info) Description 06/29/2016 1:00 PM EDT Office Visit Radiation Oncology at [address] [phone] [facility] [place] Malignant neoplasm of prostate Social History Tobacco [...] Progress Notes * Alta Muse RN - 06/29/2016 1:00 PM EDT Patient information for gold coil prostate placement Individual involved with teaching: Patient [ x ] spouse [ x ] Other [ ] Procedure Date: 07/07/16 Arrival Time: 08:00 Time of Procedure:~ 8:30 Location: [facility] Why gold coils? You and your [...] gingko biloba, Coumadin, Lovenox, etc. Please ask ifyou are not sure about any of your medications. For you this means stop taking [ Any aspirin or ibuprofen ] Prescriptions to get filled: At [facility] Prescription for steroid: to prevent swelling at implant site. [x ]dexamethasone : 2 mg twice a day for 3 days then 2 mg once a day for 3 days starting the day ofthe procedure. Prescription for Antibiotic: to prevent infection [...] pill with you to procedure in case youneed a repeat dose. You must have someone [...] the lorazepam.>>>>> Future Appointments: ?? MRI at [facility] : You will receive separate instructions specifically from [facility] concerning your exact arrival time and what you need to do to prepare for this. Date: 07/14 [facility] will give you the exact arrival time. ?? Your planning session (simulation) will be done the following week at [facility]. [Date: 07/21 ] [Time:arrive at 11:00 ] For proper visualization of prostate, it is required that you have a moderately full bladder. This will require you to arrive 30 minutes before scheduled appointment and drink 2 glasses of water upon arrival. There are no restrictions with eating. How to reach us: [facility] [phone] For weekends and after hours: Call [facility] ask for the director of pupil personnel program radiation oncologist This template was transcribed from [facility] Shared drive: I:\Nursing\\Cold Coils\preparation for cold coil placement documented in this encounter Plan of Treatment Upcoming Encounters Date Type Department Care Team (Late st Contact Info) Description 10/24/2023 1:30 PM EDT Office Visit Hematology/Oncology at [address] [phone] Bisi Cheng APRN [facility] [place] [address] documented as of this encounter Visit Diagnoses Diagnosis Malignant neoplasm of prostate documented in this encounter Care Teams Manager Strategy Relationship Specialty Start Date End Date Celio Sanders MD [address] [place] [address] PCP - General Internal Medicine 05/19/16 documented as of this encounter
--- OUTSIDE RECORDS SUMMARY | 2023-10-12 02:45 | XMS_ITS | Encounter Summary ---
Author Organization [facility] [place] [address] Care Team Providers Care Housekeeping Associate Name Role Phone Celio Sanders MD Primary Care Provider [phone] Reason for Visit * Reason Comments On Treatment Visit Encounter Details Date Type Department Care Team (Late st Contact Info) Description 08/26/2016 7:45 AM EDT Office Visit [place] [phone] Ronnie Vazquez MD [address] [place] [address] [place] [address] 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; Malignant neoplasm of prostate; Cancer of prostate with high recurrence risk (stage T3a or Andre 8-10 or PSA > 20) Social History [...] 36.3 ??C (97.3 ??F) 08/26/2016 8:07 AM ED T Respiratory Rate 20 08/26/2016 8:07 AM EDT Oxygen Saturation 98% 08/26/2016 8:07 AM EDT room air Inhaled Oxygen Concentration - - Weight 81 kg (178 lb 9.6 oz) 08/26/2016 8:07 AM EDT Height - - Body Mass Index 30.66 07/22/2016 9:10 AM EDT documented in this encounter Progress Notes * Ronnie Vazquez MD - 08/26/2016 7:45 AM EDT Images from the original note were not included. RADIATION ONCOLOGY - Weekly On Treatment Visit Note 08/26/16 Ronnie Vazquez MD Radiation Oncology [facility] [phone] (paging grooving machine operator) PATIENT IDENTIFICATION NAME: Nain Mckeon [...] ??C (97.3 ??F) (Oral) Resp 20 Wt 81 kg (178 lb 9.6 oz) SpO2 98% Comment: [...] Continue radiation therapy as planned. Lupron today. * Lili Darling, RN - 08/26/2016 7:45 AM EDT MEDICATION [...] PM EDT Office Visit Hematology/Oncology at [address] [phone] ChengBisi APRN [facility] [place] [address] documented as of this encounter Visit Diagnoses [...] dose, On Colleen 08/26/16 at 0900, Routine Given 08/26/2016 9:00 AM EDT 22.5 mg Left Gluteal documented in this encounter Care Teams Housekeeping Associate Relationship Specialty Start Date End Date Celio Sanders MD [address] [place] [address] PCP - General Internal Medicine 05/19/16 documented as of this encounter
--- OUTSIDE RECORDS SUMMARY | 2023-10-12 02:45 | XMS_ITS | Encounter Summary ---
Author Organization [facility] [place] [address] Care Team Providers Care Whitewater Rafting Guide Name Role Phone Celio Sanders MD Primary Care Provider [phone] Encounter Details Date Type Department Care Team (Late st Contact Info) Description 07/28/2016 Telephone Radiation Oncology at [address] [phone] Harjeet Silvestre Social History Tobacco [...] * Telephone Encounter - Harjeet Silvestre - 07/29/2016 9:09 AM EDT aNin returned my phone call. She was agreeable to the new appointment date for his sim and mri on 08/13. He asked if he would receive information and I told him I would make sure that he received information. I called radiology who is sending him a new letter and he should be receiving an appointmentcard in the mail for his sim. * Telephone Encounter - Harjeet Silvestre - 07/28/2016 11:46 AM EDT Left another message for Nain asking him to call back regarding his sim and MRI appointments. documented in this encounter Plan of Treatment Upcoming Encounters Date Type Department Care Team (Late st Contact Info) Description 10/24/2023 1:30 PM EDT Office Visit Hematology/Oncology at [address] [phone] Bisi Cheng APRN [facility] [place] [address] documented as of this encounter Visit Diagnoses Not on filedocumented in this encounter Care Teams Whitewater Rafting Guide Relationship Specialty Start Date End Date Celio Sanders MD [address] [place] [address] PCP - General Internal Medicine 05/19/16 documented as of this encounter
--- OUTSIDE RECORDS SUMMARY | 2023-10-12 02:45 | XMS_ITS | Encounter Summary ---
Author Organization [facility] Address [facility] [place] [address] Care Team Providers Care Lieutenant Firefighter Name Role Phone Celio Sanders MD Primary Care Provider Encounter Details Date Type Department Care Team (Late Contact Info) Description 06/30/2017 Orders Only Hematology/Oncology at [address] [phone] Harjinder Snyder MD [facility] [address] [place] [address] 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; Malignant neoplasm of prostate Social History Tobacco [...] PM EDT Office Visit Hematology/Oncology at [address] [phone] Bisi Cheng APRN [facility] [place] [place] [address] documented as of this encounter Visit Diagnoses Diagnosis 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 Malignant neoplasm of prostate documented in this encounter Care Teams Lieutenant Firefighter Relationship Specialty Start Date End Date Celio Sanders MD [address] [place] [id number] PCP - General Internal Medicine 05/19/16 documented as of this encounter
--- OUTSIDE RECORDS SUMMARY | 2023-10-12 02:45 | XMS_ITS | Encounter Summary ---
Author Organization [facility] Address [facility] [place] Suárez [address] Care Team Providers Care Oncology Research Rn Name Role Phone Celio Sanders MD Primary Care Provider [phone] Encounter Details Date Type Department Care Team (Late Contact Info) Description 07/15/2016 Telephone Radiation Oncology at [address] [phone] Harjeet Silvestre Social History Tobacco [...] * Telephone Encounter - Harjeet Silvestre - 07/15/2016 [...] PM EDT Office Visit Hematology/Oncology at [address] [phone] Bisi Cheng APRN [facility] [place] [address] documented as of this encounter Visit Diagnoses Not on filedocumented in this encounter Care Teams Oncology Research Rn Relationship Specialty Start Date End Date Celio Sanders MD [address] [place] [address] PCP - General Internal Medicine 05/19/16 documented as of this encounter
--- OUTSIDE RECORDS SUMMARY | 2023-10-12 02:45 | XMS_ITS | Encounter Summary ---
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 [facility]t said we would. 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 Pt arrives with luggage. Cooperative, denies SI or HI, states he is voluntary.Pt states his cancer med Zytiga and prednisone made him manic. documented in this encounter Plan of Treatment Upcoming Encounters Date Type Department Care Team (Late st Contact Info) Description 10/24/2023 1:30 PM EDT Office Visit Hematology/Oncology at [address] [phone] Bisi Cheng APRN [facility] [place] [address] documented as of this encounter Procedures Procedure Name Priority Date/Time Associated Diagnosis Comments CT HEAD WO CONTRAST (GENERIC) STAT 08/06/2017 5:56 AM EDT U TRICYCLICS CONFIRMATION STAT 08/06/2017 3:25 AM EDT RAPID DRUG SCREEN, URINE STAT 08/06/2017 3:25 AM EDT RAPID DRUG SCREEN W/ CONFIRMATION, URINE STAT 08/06/2017 3:25 AM EDT BENZODIAZEPINE, URINE CONFIRMATION STAT 08/06/2017 3:25 AM EDT URINALYSIS MICROSCOPIC EXAM STAT 08/06/2017 3:18 AM EDT URINALYSIS WITH REFLEX CULTURE STAT 08/06/2017 3:18 AM EDT HEMOGRAM STAT 08/06/2017 3:10 AM EDT DIFFERENTIAL, AUTOMATED STAT 08/06/2017 3:10 AM EDT BLUE TUBE HOLD STAT 08/06/2017 3:10 AM EDT CBC (WITH DIFF) STAT 08/06/2017 3:10 AM EDT TSH STAT 08/06/2017 3:10 AM EDT FOLATE, SERUM STAT 08/06/2017 3:10 AM EDT VITAMIN B12 STAT 08/06/2017 3:10 AM EDT ETHANOL LEVEL STAT 08/06/2017 3:10 AM EDT BASIC METABOLIC PANEL STAT 08/06/2017 3:10 AM EDT documented in this encounter Results * CT Head wo Contrast (Generic) (08/06/2017 5:56 AM EDT) Anatomical Region Laterality Modality Head Computed Tomogra phy Impressions 08/06/2017 6:33 AM EDT No acute intracranial pathology. Preliminary report signed by: CIARRA WEATHERS at 08/06/2017 6:12 AM I have personally reviewed the image(s) and the residents interpretation and agree with the findings, JAVIER CORNELIUS at 08/06/2017 6:33 AM Narrative 08/06/2017 6:33 AM EDT EXAMINATION: CT HEAD WO CONTRAST (GENERIC) CLINICAL HISTORY: Prostate CA, acute mental status change, concern for mets/bleed TECHNIQUE: Noncontrast head CT COMPARISON: None FINDINGS: No acute intracranial hemorrhage. No extra-axial fluid collection. No mass, mass effect, or midline shift. The nails-white matter differentiation is maintained. The ventricles are symmetric and normal in caliber. The orbits are normal in appearance. The visualized paranasal sinuses and mastoid air cells are clear. No osseous abnormality. Procedure Note Javier Cornelius MD - 08/06/2017 EXAMINATION: CT HEAD WO CONTRAST (GENERIC) CLINICAL HISTORY: Prostate CA, acute mental status change, concern for mets/bleed TECHNIQUE: Noncontrast head CT COMPARISON: None FINDINGS: No acute intracranial hemorrhage. No extra-axial fluid collection. Nomass, mass effect, or midline shift. The nails-white matter differentiation ismaintained. The ventricles are symmetric and normal in caliber. The orbits are normalin appearance. The visualized paranasal sinuses and mastoid air cells areclear. No osseous abnormality. IMPRESSION No acute intracranial pathology. Preliminary report signed by: CIARRA WEATHERS at 08/06/2017 6:12 AM I have personally reviewed the image(s) and the residents interpretationand agree with the findings, JAVIER CORNELIUS at 08/06/2017 6:33 AM Mitra Gaviria MD IMG CT ORDERABLES * U Tricyclics Confirmation (08/06/2017 3:25 AM EDT) Tricyclics Conf, Urine FLEXITEST 4 [facility] Comment: FLEXITEST 4 ANTIDEPRESSANT PANEL U (QL) AMITRYPTYLINE ? Negative NORTRIPTYLINE ? Negative IMIPRAMINE ?Negative DESIPRAMINE ? Negative DOXEPIN ? Negative CLOMIPRAMINE ?Negative FLUOXETINE ?Negative ?Reference Range: No Compound Detected This test was developed and its analytical performance characteristics have been determined by [facility] [place]. It has not been cleared or approved by the U.S. Food and Drug Administration. This assay has been validated pursuant to the CLIA regulations and is used for clinical purposes. Test Performed by [facility] [employer], [employer] [facility], [address] [place], [place] Mohinder Garcia M.D., Ph.D., Director of Laboratories , CLIA [id number] Urine specimen (specimen) 08/06/2017 3:25 AM EDT 08/08/2017 10:40 AM EDT Narrative Resulting Agency Comment Spec In Lab Mitra Gaviria MD LAB SEND OUT ORDERAB LES [facility] [place] [address] * Benzodiazepine, Urine Confirmation (08/06/2017 3:25 AM EDT) U Benzo Conf Test ?Result ? Flag ??Unit ?? RefValue ------- Benzodiazepines Confirmation, U ??Nordiazepam-by GC/MS ?Negative ? ng/mL ??Cutoff: 100 ??Oxazepam-by GC/MS ? Negative ? ng/mL ??Cutoff: 100 ??Lorazepam-by GC/MS ?Negative ? ng/mL ??Cutoff: 100 ?Testing performed at a x2 dilution; limit of quantitation ?is elevated. ??Temazepam-by GC/MS ?Negative ? ng/mL ??Cutoff: 100 ??DJ-Mohbi-Iubdqpr rod-by GC/MS ?Negative ? ng/mL ??Cutoff: 100 ??0-WR-Kccjmzysxk- by GC/MS ?983 ?ng/mL ??Cutoff: 100 ??Alpha EU-Jtzsdehotl-xq GC/MS ?Negative ? ng/mL ??Cutoff: 100 ??3-SD-Uaqkhwjodjr am-by GC/MS ? Negative ? ng/mL ??Cutoff: 50 ??Alpha YX-Ntfrpekaf-sf GC/MS ? Negative ? ng/mL ??Cutoff: 100 ??Benzodiazepines Interpretation ?Positive. ? ---ADDITIONAL INFORMATION------- ?This report is intended for use in clinical monitoring and ?management of patients. ??It is not intended for use in ?employment-relat ed testing. ?This test was developed and its performance characteristics ?determined by [facility] in a manner consistent with CLIA ?requirements. This test has not been cleared or approved by ?the U.S. Food and Drug Administration. ?Test Performed by: ?[facility] ?[address] [place] [address] [facility] Urine specimen (specimen) 08/06/2017 3:25 AM EDT 08/08/2017 10:24 AM EDT Narrative Resulting Agency Comment Spec In Lab Mitra Gaviria MD LAB SEND OUT ORDERAB LES [facility] [address] [place] [address] * (ABNORMAL) Rapid Drug Screen w/ Confirmation, Urine (08/06/2017 3:25 AM EDT) Barbiturates Screen, Urine None Detected None Detected [facility] Comment: The barbiturate screen detects barbiturates at concentrations >200 ng/mL. Note: Not all barbiturates cross-react equally with antibody used in this screen. A ? Presumptive Positive? result indicates that the screening result was positive but has not yet been confirmed by a highly-specific method. As with any screen, occasional false positive results from cross-reacting substances may occur. Not for Medico-Legal Purposes. Benzodiazepines Screen, Urine Presumptive Pos(A) None Detected [facility] Comment: The benzodiazepines screen detects benzodiazepines at concentrations >100 ng/mL. Not all benzodiazepines cross-react equally with antibody used in this screen. Due to the low dosage of clonazepam, false negatives may be obtained due to low concentration of clonazepam metabolites. A ? Presumptive Positive? result indicates that the screening result was positive but has not yet been confirmed by a highly-specific method. As with any screen, occasional false positive results from cross-reacting substances may occur. Not for Medico-Legal Purposes. Cocaine Screen, Urine None Detected None Detected [facility] Comment: The cocaine metabolites screen detects benzoylecgonine (Cocaine Metabolite) at concentrations >150 ng/mL. A ? Presumptive Positive? result indicates that the screening result was positive but has not yet been confirmed by a highly-specific method. As with any screen, occasional false positive results from cross-reacting substances may occur. Not for Medico-Legal Purposes. Methadone Metabolites Screen, Urine None Detected None Detected [facility] Comment: The methadone metabolite screen detects EDDP (major methadone metabolite) at concentrations >100 ng/mL. A ? Presumptive Positive? result indicates that the screening result was positive but has not yet been confirmed by a highly-specific method. As with any screen, occasional false positive results from cross-reacting substances may occur. Not for Medico-Legal Purposes. Opiate Screen, Urine None Detected None Detected [facility] Comment: The opiates screen detects opiates at concentrations >300 ng/mL. Please note that oxycodone, oxymorphone, fentanyl, tramadol, and other synthetic opioids are not detected by the opiate screen. A ? Presumptive Positive? result indicates that the screening result was positive but has not yet been confirmed by a highly-specific method. As with any screen, occasional false positive results from cross-reacting substances may occur. Not for Medico-Legal Purposes. Cannabinoid Screen, Urine None Detected None Detected [facility] Comment: The marijuana metabolites screen detects the THC metabolite (90-wjp-0-carboxy-delta 9-THC) at concentrations >20 ng/mL. A ? Presumptive Positive? result indicates that the screening result was positive but has not yet been confirmed by a highly-specific method. As with any screen, occasional false positive results from cross-reacting substances may occur. Not for Medico-Legal Purposes. Oxycodone Screen, Urine None Detected None Detected [facility] Comment: The oxycodone screen detects oxycodone and oxymorphone at concentrations >100 ng/mL. A ? Presumptive Positive? result indicates that the screening result was positive but has not yet been confirmed by a highly-specific method. As with any screen, occasional false positive results from cross-reacting substances may occur. Not for Medico-Legal Purposes. Buprenorphine Screen, Urine None Detected None Detected [facility] Comment: The buprenorphine screen detects buprenorphine at concentrations >5 ng/mL. A ? Presumptive Positive? result indicates that the screening result was positive but has not yet been confirmed by a highly-specific method. As with any screen, occasional false positive results from cross-reacting substances may occur. Not for Medico-Legal Purposes. Fentanyl Screen, Urine None Detected None Detected [facility] Comment: The fentanyl screen detects fentanyl at concentrations >2 ng/mL. A ? Presumptive Positive? result indicates that the screening result was positive but has not yet been confirmed by a highly-specific method. As with any screen, occasional false positive results from cross-reacting substances may occur. Not for Medico-Legal Purposes. Tricyclics Screen, Urine Presumptive Pos(A) None Detected [facility] Comment: The tricyclics screen detects tricyclic antidepressants at concentrations >150 ng/mL. Not all tricyclics cross-react equally with the antibody used in this screen. A ? Presumptive Positive? result indicates that the screening result was positive but has not yet been confirmed by a highly-specific method. As with any screen, occasional false positive results from cross-reacting substances may occur. Not for Medico-Legal Purposes. Ethanol Screen, Urine None Detected None Detected [facility] Comment:This urine ethanol a ssay detects ethanol at concentrations >/= 100 mg/L. Amphetamines Screen, Urine None Detected None Detected [facility] Comment: The amphetamine screen detects d-amphetamine and d-methamphetamine at concentrations >300 ng/mL. A ? Presumptive Positive? result indicates that the screening result was positive but has not yet been confirmed by a highly-specific method. As with any screen, occasional false positive results from cross-reacting substances may occur. Not for Medico-Legal Purposes. Adulterants Screen, Urine None Detected None Detected [facility] Comment: No adulteration or dilution of this urine sample was detected. All urine samples submitted for urine drugs of abuse analysis are tested for creatinine concentration, pH, and for the presence of oxidants, nitrites, and chromate. Urine specimen (specimen) 08/06/2017 3:25 AM EDT 08/06/2017 4:17 AM EDT Narrative Resulting Agency Comment Spec In Lab Mitra Gaviria MD CHEMISTRY ORDERABLES [facility] [place] [address] * Rapid Drug Screen, Urine (JIM Request) (08/06/2017 3:25 AM EDT) JIM Conf Requested Yes [facility] JIM Requested See Comment [facility] Comment:Refer to Rapid Drug Screen w/ Confirmation, Urine for results. Urine specimen (specimen) 08/06/2017 3:25 AM EDT 08/06/2017 4:17 AM EDT Narrative Resulting Agency Comment Spec In Lab Mitra Gaviria MD URINE ORDERABLES Performing Organization Address [facility] de Phone Number [facility] [place] [address] * (ABNORMAL) Urinalysis Microscopic Exam (08/06/2017 3:18 AM EDT) RBC, Urine 3 0 - 3 /HPF [facility] WBC, Urine 1 0 - 3 /HPF [facility] Squamous Epithelial Cells Raw Data, Urine <1 <=4 /HPF [facility] Calcium Oxalate Crystal, Urine Few(A) None /HPF [facility] Urine specimen obtained by clean catch procedure (specimen) 08/06/2017 3:18 AM EDT 08/06/2017 3:28 AM EDT Narrative Resulting Agency Comment Spec In Lab Mitra Gaviria MD URINE ORDERABLES Performing Organization Address [facility] de Phone Number [facility] [place] [address] * (ABNORMAL) Urinalysis with reflex Culture (08/06/2017 3:18 AM EDT) Glucose, Urine Dipstick Negative Negative mg/dL [facility] Protein, Urine Dipstick 30(A) Negative mg/dL [facility] Bilirubin, Urine Dipstick Negative Negative mg/dL [facility] Comment: Clinical correlation required for positive Urine Bilirubin results as false positive may occur with some drugs and drug related products. If a false positive is suspected a serum total bilirubin should be considered if clinically indicated. Urobilinogen, Urine Dipstick Normal Normal mg/dL [facility] pH, Urn (dipstick) 6.0 5.0 - 8.0 [facility] Blood, Urine Dipstick Negative Negative mg/dL [facility] Ketone, Urine Dipstick 5(A) Negative mg/dL [facility] Nitrite, Urine Dipstick Negative Negative [facility] Leukocytes, Urine Dipstick Negative Negative [facility] Appearance, Urine Dipstick Clear Clear [facility] Specific Breaks Urine Automated 1.028 1.002 - 1.030 [facility] Color, Urine Dipstick Yellow Yellow [facility] Reflex to Culture No [facility] Urine specimen obtained by clean catch procedure (specimen) 08/06/2017 3:18 AM EDT 08/06/2017 3:28 AM EDT Narrative Resulting Agency Comment Spec In Lab Mitra Gaviria MD URINE ORDERABLES Performing Organization Address [facility]/ZIP Co de Phone Number [facility] [place] [address] * Blue Tube HOLD (08/06/2017 3:10 AM EDT) Blue Hold Sample in lab. [facility] Blood specimen (specimen) Venous Draw / Unknown 08/06/2017 3:10 AM EDT 08/06/2017 3:24 AM EDT Mitra Gaviria MD HEMATOLOGY ORDERABLE S Performing Organization Address City/[facility]/ZIP Co de Phone Number [facility] [place] [address] * Differential, Automated (08/06/2017 3:10 AM EDT) Neutrophil % 56.3 % [facility] Neutrophil Absolute 3.99 1.70 - 6.10 x10(3)/[facility] Lymph % 29.7 % [facility] Lymphocytes Abs 2.1 0.9 - 3.2 x10(3)/[facility] Monocyte % 10.0 % [facility] Monocyte Abs 0.7 0.3 - 0.9 x10(3)/[facility] Eos % 3.5 % [facility] Eosinophils Abs 0.2 0.0 - 0.4 x10(3)/[facility] Basophil % 0.4 % [facility] Baso Absolute 0.0 0.0 - 0.1 x10(3)/[facility] Immature Gran % 0.10 % [facility] Comment: Immature granulocytes(IG's)percentage and absolute count will include metamyelocytes, myelocytes, and promyelocytes. Blood smears from CBCs yielding IG's will be scanned manually for concordance. If this scan disagrees with the automated IG or if promyelocytes are noted, a manual differential will be performed. Immature Gran Absolute 0.01 0.00 - 0.04 x10(3)/[facility] Blood specimen (specimen) 08/06/2017 3:10 AM EDT 08/06/2017 3:23 AM EDT Narrative Resulting Agency Comment Spec In Lab Mitra Gaviria MD HEMATOLOGY ORDERABLE S [facility] [place] [address] * (ABNORMAL) Hemogram (08/06/2017 3:10 AM EDT) White Blood Cell 7.1 4.0 - 9.5 x10(3)/ L [facility] Red Blood Cell 4.44(L) 4.58 - 5.54 x10(6)/ L [facility] Hemoglobin 14.3 13.7 - 16.5 gm/dL [facility] Hematocrit 40.9 40.5 - 48.5 % [facility] Mean Cell Volume 92.1 82.9 - 93.[address] [facility] Mean Cell Hemoglobin 32.2(H) 27.5 - 32.[address] [facility] Mean Cell Hemoglobin Concentration 35.0 32.0 - 35.7 gm/dL [facility] Platelet 267 145 - 357 x10(3)/mc L [facility] RDW Standard Deviation 42.5 36.0 - 45.0 [facility] RDW coefficient of variation 12.5 11.4 - 13.8 % [facility] Mean Platelet Volume 8.9 7.6 - 12.9 [facility] NRBC% auto 0.0 % [facility] NRBC Absolute 0.000 0.000 - 0.000 x10(3)/mc L [facility] Blood specimen (specimen) 08/06/2017 3:10 AM EDT 08/06/2017 3:23 AM EDT Narrative Resulting Agency Comment Spec In Lab Mitra Gaviria MD HEMATOLOGY ORDERABLE S Performing Organization Address City/[facility]/ZIP Co de Phone Number [facility] [place] [address] * Vitamin B12 (08/06/2017 3:10 AM EDT) [facility] Vitamin B12 744 232 - 1,245 pg/mL [facility] Comment: Please note: Effective 02/02/2017, the reference interval and the lower limit of detection for Vitamin B12 have been updated due to a new reagent formulation. Blood specimen (specimen) 08/06/2017 3:10 AM EDT 08/06/2017 3:23 AM EDT Narrative Resulting Agency Comment Spec In Lab Mitra Gaviria MD CHEMISTRY ORDERABLES Performing Organization Address City/[facility]/ZIP Co de Phone Number [facility] [place] [address] * Folate, serum (08/06/2017 3:10 AM EDT) Folate >20.0 4.8 - 24.2 ng/mL [facility] Blood specimen (specimen) 08/06/2017 3:10 AM EDT 08/06/2017 3:23 AM EDT Narrative Resulting Agency Comment Spec In Lab Mitra Gaviria MD CHEMISTRY ORDERABLES Performing Organization Address City/[facility]/ZIP Co de Phone Number [facility] [place] [address] * Ethanol Level (08/06/2017 3:10 AM EDT) Ethanol <100 <=99 mg/L [facility] Comment: Greater than 800 mg/L (0.08%) should be considered intoxicated. 3400 to 4500 mg/L (0.34 - 0.45%) is considered severe intoxication. Greater than 5500 mg/L (0.55%) is usually fatal. Blood specimen (specimen) 08/06/2017 3:10 AM EDT 08/06/2017 3:23 AM EDT Narrative Resulting Agency Comment Spec In Lab Mitra Gaviria MD CHEMISTRY ORDERABLES Performing Organization Address [facility]/ZIP Co de Phone Number [facility] [place] [address] * (ABNORMAL) TSH (08/06/2017 3:10 AM EDT) Thyroid Stimulating Hormone 4.60(H) 0.27 - 4.20 mlU/ML [facility] Blood specimen (specimen) 08/06/2017 3:10 AM EDT 08/06/2017 3:23 AM EDT Narrative Resulting Agency Comment Spec In Lab Mitra Gaviria MD CHEMISTRY ORDERABLES Performing Organization Address City/[facility]/ZIP Co de Phone Number [facility] [place] [address] * Basic Metabolic Panel (non-fasting) (08/06/2017 3:10 AM EDT) Glucose 95 65 - 199 mg/dL [facility] Comment:Diabetes: >=200 mg/d L plus symptoms Blood Urea Nitrogen 20 10 - 20 mg/dL [facility] Creatinine 0.93 0.80 - 1.50 mg/dL [facility] Sodium 143 135 - 145 mmol/L [facility] Potassium 3.7 3.5 - 5.0 mmol/L [facility] Comment: Please note: ??Patients with WBC >100,000 may have falsely elevated Potassium levels. ??For accurate Potassium quantification in these patients send serum separator tube (gold top) for subsequent determinations. ??Contact the Clinical Chemistry Laboratory if there are any questions. Chloride 100 98 - 107 mmol/L [facility] Carbon Dioxide 31 22 - 31 mmol/L [facility] Anion Gap 12 5 - 15 mmol/L [facility] Calcium 9.5 8.5 - 10.5 mg/dL [facility] Est Glomerular Filtration Rate >60 >=60 [facility] Comment: The reported eGFR should be multiplied by 1.2 for patients. The MDRD is not an appropriate measure of renal function for patients with body mass extremes or in patients with acute kidney failure. http://Quik.io/DHnkdep http://Quik.io/DHMCnkf Blood specimen (specimen) 08/06/2017 3:10 AM EDT 08/06/2017 3:23 AM EDT Narrative Resulting Agency Comment Spec In Lab Mitra Gaviria MD CHEMISTRY ORDERABLES [facility] [place] [address] documented in this encounter Visit Diagnoses Diagnosis Delirium Other alteration of consciousness Malignant neoplasm of prostate Bipolar II disorder Other bipolar disorders long term acute care registered nurse current use of systemic steroids Encounter for long-term (current) use of steroids Encounter for long-term (current) drug use Encounter for long-term (current) use of other medications Toxic encephalopathy documented in this encounter Admitting Diagnoses Diagnosis Toxic encephalopathy documented in this encounter Administered Medications Inactive Administered Medications - up to 3 most recent administrations Medication Order MAR Action Action Date Dose Rate Site clonazePAM (KlonoPIN) tablet 1 mg 1 mg, Oral, ONCE, 1 dose, On 08/06/17 at 0333, STAT Given 08/06/2017 3:34 AM EDT 1 mg clonazePAM (KlonoPIN) tablet 1 mg 1 mg, Oral, ONCE, 1 dose, On 08/06/17 at 0826, STAT Given 08/06/2017 8:59 AM EDT 1 mg lamoTRIgine (LaMICtal) tablet 150 mg 150 mg, Oral, ONCE, 1 dose, On 08/06/17 at 1459, Routine Given 08/06/2017 4:52 PM EDT 150 mg OLANZapine zydis (ZyPREXA) disintegrating tablet 5 mg 5 mg, Oral, NIGHTLY, First dose on 08/06/17 at 2100, Until Discontinued, Routine tamsulosin (FLOMAX) ER capsule 0.4 mg 0.4 mg, Oral, DAILY, First dose on 08/06/17 at 0900, Until Discontinued, DO NOT CRUSH OR OPEN, Routine Given 08/06/2017 8:59 AM EDT 0.4 mg documented in this encounter Active and Recently Administered Medications Times are shown in EDT. Scheduled Medication Order 08/04/2017 08/05/2017 08/06/2017 clonazePAM (KlonoPIN) tablet 1 mg (COMPLETED) 1 mg, Oral, ONCE, 1 dose, On 08/06/17 at 0333, STAT 0334 (Given - Provid er: Riya Lee RN) clonazePAM (KlonoPIN) tablet 1 mg (COMPLETED) 1 mg, Oral, ONCE, 1 dose, On 08/06/17 at 0826, STAT 0859 (Given - Provid er: Aileen Rubi RN) lamoTRIgine (LaMICtal) tablet 150 mg (COMPLETED) 150 mg, Oral, ONCE, 1 dose, On 08/06/17 at 1459, Routine 1652 (Given - Provid er: Aileen Rubi RN) OLANZapine zydis (ZyPREXA) disintegrating tablet 5 mg 5 mg, Oral, NIGHTLY, First dose on 08/06/17 at 2100, Until Discontinued, Routine tamsulosin (FLOMAX) ER capsule 0.4 mg 0.4 mg, Oral, DAILY, First dose on 08/06/17 at 0900, Until Discontinued, DO NOT CRUSH OR OPEN, Routine 0859 (Given - Provid er: Aileen Rubi RN) documented in this encounter Care Teams Airline Ticket Agent Relationship Specialty Start Date End Date Celio Sanders MD [address] [place] [address] PCP - General Internal Medicine 05/19/16 documented as of this encounter
--- OUTSIDE RECORDS SUMMARY | 2023-10-12 02:45 | XMS_ITS | Encounter Summary ---
Author Organization Formerly [facility] Address [facility] [place] [address] Care Team Providers Care Director Of Outside Sales Name Role Phone Celio Sanders MD Primary Care Provider [phone] Reason for Visit * Reason Comments Follow-up Encounter Details Date Type Department Care Team (Late st Contact Info) Description 07/22/2016 11:00 AM EDT Office [place] [phone] Matthew Pelaez MD [facility] [place] [address] Neoplasm of prostate regional lymph node staging [...] 36.6 ??C (97.9 ??F) 07/22/2016 10:50 AM E DT Respiratory Rate 16 07/22/2016 10:50 AM EDT Oxygen Saturation 96% 07/22/2016 10:50 AM EDT Inhaled Oxygen Concentration - - Weight 82.4 kg (181 lb 9.6 oz) 07/22/2016 10:50 AM EDT Height - - Body Mass Index 31.17 07/22/2016 9:10 AM EDT documented in this encounter Patient Instructions * Patient Instructions* Marine Sood RN - 07/22/2016 11:00 AM EDT [...] sit within the prostate and help locate theprostate in the planning CT scan and during [...] Prescriptions to get filled and things to cotton picker operator from the pharmacy: [facility] -These [...] and the team will explain how it isdone. After the procedure: ??? Follow the discharge instructions provided by the Same Day Program. Avoid riding on anything that bounces such as business analysis consultant, ATV, horse back riding or motorcycle riding [...] bladder.* documented in this encounter Progress Notes * Matthew Pelaez MD - 07/22/2016 11:00 AM EDT Follow-up Note and H&P for Surgical Procedure Identification Nain Mckeon is a 65 y.o. gentleman with high-risk prostate cancer, PSA 47.5, Andre 4+4=8/10, Stage [id number]. He is planned for EBRT along with ADT. First Lupron injection was 22.5 mg (3-months) on 05/31/16. He originally was seen in [facility] by Dr. Vazquez. He did not [...] placement of Space()OAR hydrogel between prostate and rectumat the time of his procedure. Space()OAR has been shown to improve short-term rectal toxicities forpatients undergoing prostate irradiation. 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
--- OUTSIDE RECORDS SUMMARY | 2023-10-12 02:45 | XMS_ITS | Encounter Summary ---
Author Organization Formerly [facility] Address [facility] [place] [address] Care Team Providers Care Manager Heart Failure Name Role Phone Celio Sanders MD Primary Care Provider [phone] Encounter Details Date Type Department Care Team (Late Contact Info) Description 05/30/2017 Orders Only Radiation Oncology at [address] [phone] Alta Rowland RN Malignant neoplasm of prostate Social History [...] PM EDT Office Visit Hematology/Oncology at [address] [phone] Bisi Cheng APRN [facility] [place] [address] documented as of this encounter Visit Diagnoses Diagnosis Malignant neoplasm of prostate documented in this encounter Care Teams Manager Heart Failure Relationship Specialty Start Date End Date Celio Sanders MD [address] [place], [place] [address] PCP - General Internal Medicine 05/19/16 documented as of this encounter
--- OUTSIDE RECORDS SUMMARY | 2023-10-12 02:45 | XMS_ITS | Encounter Summary ---
Author Organization [place] [address] Care Team Providers Care Foam Charger Name Role Phone Celio Sanders MD Primary Care Provider Encounter Details Date Type Department Care Team (Late st Contact Info) Description 09/30/2016 12:30 PM EDT Office Visit Radiation Oncology at [address] [phone] Ronnie Vazquez MD [address] [place] [address] DR RADIATION ONCOLOGY [place], [place] [id number] Neoplasm of prostate regional lymph node staging [...] EDT Temperature 36.7 ??C (98.1 ??F) 09/30/2016 1 2:00 PM EDT Respiratory Rate 16 09/30/2016 12:0 0 PM EDT Oxygen Saturation 100% 09/30/2016 12: 00 PM EDT Inhaled Oxygen Concentration - - Weight 82.6 kg (182 lb 3.2 oz) 10/01/19 17 12:00 PM EDT shoes off Height - - Body Mass Index 31.73 09/03/2016 7:58 AM EDT documented in this encounter Progress Notes * Ronnie Vazquez MD - 09/30/2016 12:30 PM EDT Images from the original note were not included. RADIATION ONCOLOGY - Weekly On Treatment Visit Note 09/30/16 Ronnie Vazquez MD Radiation Oncology [facility] [phone] (paging multiple tube winding machine operator) PATIENT IDENTIFICATION NAME: Nain Mckeon [...] 3x / night (up from 1x/nt at baseline).Denies other LUTS. GI - More frequent soft BMs (4-5x/day), no diarrhea. More gas as well. He has not taken any Imodiumor made any dietary modifications. 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
--- OUTSIDE RECORDS SUMMARY | 2023-10-12 02:45 | XMS_ITS | Encounter Summary ---
Author Organization [facility]ly [facility] Address [facility] [place] [address] Care Team Providers Care Media Marketing Coordinator Name Role Phone Celio Sanders MD Primary Care Provider [phone] Reason for Visit * Reason Onset Date Comments Medication Refill 09/24/2016 Encounter Details Date Type Department Care Team (Late Contact Info) Description 09/24/2016 Refill Radiation Oncology at [address] [phone] Alta Rowland, RN Malignant neoplasm of prostate (Primary Dx) Social [...] PM EDT Office Visit Hematology/Oncology at [address] [phone] [facility] [place] [address] documented as of this encounter Visit Diagnoses Diagnosis Malignant neoplasm of prostate- Primary documented in this encounter Care Teams Media Marketing Coordinator Relationship Specialty Start Date End Date Celio Sanders MD [address] [place] [address] PCP - General Internal Medicine 05/19/16 documented as of this encounter
--- OUTSIDE RECORDS SUMMARY | 2023-10-12 02:45 | XMS_ITS | Encounter Summary ---
Author Organization [facility] [place] [address] Care Team Providers Care Teacher Instrumental Name Role Phone Celio Sanders MD Primary Care Provider [phone] Encounter Details Date Type Department Care Team (Late Contact Info) Description 07/16/2016 Telephone [place] [phone] Nicky Marcelo Social History Tobacco Use Types [...] * Telephone Encounter - Nicky Marcelo - 07/16/2016 11:30 AM EDT Spoke w/ pt re: all appts related to gold coils and minor or documented in this encounter Plan of Treatment Upcoming Encounters Date Type Department Care Team (Late st Contact Info) Description 10/24/2023 1:30 PM EDT Office Visit Hematology/Oncology at [address] [phone] Bisi Cheng APRN [facility] [place] [address] documented as of this encounter Visit Diagnoses Not on filedocumented in this encounter Care Teams Teacher Instrumental Relationship Specialty Start Date End Date Celio Sanders MD [address] [place] [address] PCP - General Internal Medicine 05/19/16 documented as of this encounter
--- OUTSIDE RECORDS SUMMARY | 2023-10-12 02:45 | XMS_ITS | Encounter Summary ---
Author Organization [facility] [place] [address] Care Team Providers Care Head Of Partner Development Name Role Phone Celio Sanders MD Primary Care Provider [phone] Reason for Referral * Consultation (Routine) - Closed Specialty Diagnoses / Procedures Referred By Contkulwant de la rosa Referred To Contact Hematology and Oncology Diagnoses Cancer of prostate with high recurrence risk (stage T3a or [place] 8-10 or PSA > 20) Ronnie Vazquez MD [address] [place] [address] [place] [address] [facility] Hem Onc Office [address] [place] [phone] Referral ID Status Reason Start Date Expiration Date V isits Requested Visits Authorized [id number] Closed Consult, Test & Treat 10/07/2016 10/07/2017 1 1 Encounter Details Date Type Department Care Team (Late st Contact Info) Description 10/07/2016 10:45 AM EDT Office Visit Radiation Oncology at [address] [phone] Ronnie Vazquez MD [address] [place] [address] [place] [address] Cancer of prostate with high [...] Progress Notes * Ronnie Vazquez MD - 10/07/2016 10:45 AM EDT Images from the original note were not included. RADIATION ONCOLOGY - Weekly On Treatment Visit Note 10/07/16 Ronnie Vazquez MD Radiation Oncology [facility] [phone] (paging hydraulic rock drill operator) PATIENT IDENTIFICATION NAME: Nain Mckeon DATE [...] planned. documented in this encounter Miscellaneous Notes * Addendum Note - Ronnie Vazquez MD - 10/07/2016 2:49 PM EDTAddended by: RONNIE VAZQUEZ on: 10/07/2016 02:49 PM Modules accepted: Orders documented in this encounter Plan of Treatment Upcoming Encounters Date Type Department Care Team (Late st Contact Info) Description 10/24/2023 1:30 PM EDT Office Visit Hematology/Oncology at [address] [phone] Bisi Cheng APRN [facility] [place] [place] [address] Scheduled Referrals Name Type Priority Associated Diagnoses Order Schedule Referral to Hematology and Oncology Outpatient Referral Routine Cancer of prostate with high recurrence risk (stage T3a or [place] 8-10 or PSA > 20) Ordered: 10/07/2016 documented as of this encounter Visit Diagnoses Diagnosis Cancer of prostate with high recurrence risk (stage T3a or Andre 8-10 or PSA > 20) Malignant neoplasm of prostate documented in this encounter Care Teams Head Of Partner Development Relationship Specialty Start Date End Date Celio Sanders MD [address] [place] [address] PCP - General Internal Medicine 05/19/16 documented as of this encounter
--- OUTSIDE RECORDS SUMMARY | 2023-10-12 02:45 | XMS_ITS | Encounter Summary ---
Author Organization [facility] [place] [address] Care Team Providers Care Doctor Chiropractic Name Role Phone Celio Sanders MD Primary Care Provider Reason for Visit * Reason Comments On Treatment Visit Encounter Details Date Type Department Care Team (Late st Contact Info) Description 08/31/2016 7:30 AM EDT Office Visit [place] [phone] Ronnie Vazquez MD [address] [place] [address] [place] [address] Cancer of prostate with high recurrence risk (stage T3a or [place] 8-10 or PSA > 20); Neoplasm of prostate regional lymph node staging [...] Progress Notes * Ronnie Vazquez MD - 08/31/2016 7:30 AM EDT Images from the original note were not included. RADIATION ONCOLOGY - Weekly On Treatment Visit Note 08/31/16 Ronnie Vazquez MD Radiation Oncology [facility] [phone] (paging service vehicle operator) PATIENT IDENTIFICATION NAME: Nain Mckeon DATE [...] feels weaker but is still able to completely empty. Denies other LUTS or dysuria. 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
--- OUTSIDE RECORDS SUMMARY | 2023-10-12 02:45 | XMS_ITS | Encounter Summary ---
Author Organization [facility] Address [facility] [place] [address] Care Team Providers Care Flooring Professional Name Role Phone Celio Sanders MD Primary Care Provider [phone] Encounter Details Date Type Department Care Team (Late st Contact Info) Description 08/03/2016 1:00 PM EDT - 08/03/2016 2:00 PM EDT [place] [phone] Matthew Pelaez MD [facility] [place] [address] PROSTATE IMPLANT GOLD COIL PROCEDURE (WRVU 13.46) Social History Tobacco Use Types Packs/Day Years [...] 36.5 ??C (97.7 ??F) 08/03/2016 11:49 AM E DT Respiratory Rate 18 08/03/2016 11:49 AM EDT Oxygen Saturation 97% 08/03/2016 11:49 AM EDT Inhaled Oxygen Concentration - - Weight - - Height - - Body Mass Index - - documented in this encounter Discharge Instructions * Discharge Instructions* Mitali Mann RN - 08/03/2016 3:40 PM EDT 1. After the procedure: ?? Follow the discharge instructions provided by the Same Day Program. Avoid riding on anything that bounces such as apple press operator, ATV, horse back riding or motorcycle [...] of infection: increasing redness, swelling, foul drainage, if occurs contact M.D. Patients who have had endotrachial [...] muscle soreness, which usually goes away in 12-24hours. ? documented in this encounter Medications at [...] daily. 08/15/2017 documented as of this encounter Progress Notes * Matthew Pelaez MD - 08/03/2016 1:10 PM EDT 24-hr update. Patient seen and examined. No changes. Patient in good condition for planned procedure. documented in this encounter Miscellaneous Notes * Op Note - Matthew Pelaez MD - 08/03/2016 4:27 PM EDT [facility] Operative [place] Patient Name: Nain Mckeon : [id number] MR#: [id number] Case Date: 08/03/2016 Surgeon: Surgeon(s) and Role: [...] prostate cancer, PSA 47.5, Andre 4+4=8/10, Stage [id number]. He is planned for EBRT along with [...] position. A transrectal ultrasound probe was placed within the rectum and stabilized using the placement positioning system. The perineum was prepped and draped. Lidocaine (2%) with bicarb was used to anesthetize the skin, SQ tissues, and tissues posterior to the prostate apex under U/S guidance. The Space(OAR) system was prepared as per station cook's recommendations. A needle was then placed trans-perineally into the right lobe of the prostate under ultrasound guidance with the graticule serving for stabilization and position verification. The ultrasound was usedto monitor the advancement of the needle, and lidocaine was locally applied as the needle was advanced. Once it was properly positioned, a 2.0 cm length of gold coil was placed within the right lobe,and the needle was removed. This procedure was repeated within the left prostate. A needle was then placed trans-perineally under U/S guidance into Denonvillier's fascia at the level of the midgland of the prostate. Hydrodissection confirmed [...] PM EDT Office Visit Hematology/Oncology at [address] [phone] Bisi Cheng APRN [facility] [place] [address] documented as of this encounter Procedures Procedure Name Priority Date/Time Associated Diagnosis Comments PROSTATE IMPLANT GOLD COIL PROCEDURE (WRVU 13.46) Yes 08/03/2016 1:26 PM EDT PROSTATE CA GOLD COIL IMPLANT/ MINOR OR documented in this encounter Visit Diagnoses Not on filedocumented in this encounter Administered Medications Inactive Administered Medications - up to 3 most recent administrations Medication Order MAR Action Action Date Dose Rate Site lactated Ringers infusion 1,000 mL 1,000 mL, at 100 mL/hr, Intravenous, CONTINUOUS, Starting on Tue08/03/16 at 1200, Until Tue08/03/16 at 1619, Day of Surgery (Day of Procedure) New Bag 08/03/2016 1:32 PM EDT New Bag 08/03/2016 12:00 PM EDT 1,000 mLs 100 mL/hr documented in this encounter Active and Recently Administered Medications Times are shown in EDT. Scheduled Medication Order 08/01/2016 08/02/2016 08/03/2016 levofloxacin (LEVAQUIN) 500 mg in dextrose 5% 100 mL (COMPLETED) 500 mg, Intravenous, at 100 mL/hr, Administer over 60 Minutes, EVERY 24 HOURS, 1 dose, First dose on Tue08/03/16 at 1345, Day of Surgery (Day of Procedure), STAT, Indication for (Active or Suspected): Prophylaxis, Restricted Antibiotic: Please indicate the most appropriate choice: Pre-approved Indication (State the indication in Comments field) 1332 (Given - Provid er: Rama Valdez CRNA - Comment: over 30 min) Continuous Medication Order 08/01/2016 08/02/2016 08/03/2016 lactated Ringers infusion 1,000 mL (CANCELED) 1,000 mL, at 100 mL/hr, Intravenous, CONTINUOUS, Starting on Tue08/03/16 at 1200, Until Tue08/03/16 at 1619, Day of Surgery (Day of Procedure) 1200 (New Bag - Prov ider: John Pierson RN)1332 (New Bag - Provider: Rama Valdez CRNA)1514 (Stopped - Provider: Rama Valdez CRNA) documented in this encounter Care Teams Flooring Professional Relationship Specialty Start Date End Date Celio Sanders MD [address] [place] [address] PCP - General Internal Medicine 05/19/16 documented as of this encounter
--- OUTSIDE RECORDS SUMMARY | 2023-10-12 02:45 | XMS_ITS | Encounter Summary ---
Author [facility] [place] [address] Care Team Providers Care Editorial Intern Name Role Phone Celio Sanders MD Primary Care Provider Reason for Visit * Reason Comments On Treatment Visit Encounter Details Date Type Department Care Team (Late st Contact Info) Description 09/10/2016 7:30 AM EDT Office Visit [place] [phone] Ronnie Vazquez MD [address] [place] [address] DR RADIATION ONCOLOGY [place], [place] [id number] Cancer of prostate with high recurrence risk (stage T3a or [place] 8-10 or PSA > 20) Social History [...] 36.3 ??C (97.3 ??F) 09/10/2016 8:08 AM ED T Respiratory Rate 18 09/10/2016 8:08 AM EDT Oxygen Saturation 100% 09/10/2016 8:08 AM EDT Inhaled Oxygen Concentration - - Weight 81.3 kg (179 lb 3.2 oz) 09/10/2016 8:08 A M EDT Height - - Body Mass Index 31.2 09/03/2016 7:58 AM EDT documented in this encounter Progress Notes * Ronnie Vazquez MD - 09/10/2016 7:30 AM EDT Images from the original note were not included. RADIATION ONCOLOGY - Weekly On Treatment Visit Note 09/10/16 Ronnie Vazquez MD Radiation Oncology [facility] [phone] (paging convex grinder operator) PATIENT IDENTIFICATION NAME: Nain Mckeon DATE [...] PM EDT Office Visit Hematology/Oncology at [address] [phone] Bisi Cheng APRN [facility] [place] [address] documented as of this encounter Visit Diagnoses Diagnosis Cancer of prostate with high recurrence risk (stage T3a or Andre 8-10 or PSA > 20) Malignant neoplasm of prostate documented in this encounter Care Teams Editorial Intern Relationship Specialty Start Date End Date Celio Sanders MD [address] [place] [address] PCP - General Internal Medicine 05/19/16 documented as of this encounter
--- OUTSIDE RECORDS SUMMARY | 2023-10-12 02:45 | XMS_ITS | Encounter Summary ---
Author [facility] [place] [address] Care Team Providers Care Dynamite Packing Machine Feeder Name Role Phone Celio Sanders MD Primary Care Provider Encounter Details Date Type Department Care Team (Late st Contact Info) Description 10/28/2016 Notes Only Radiation Oncology at [address] [phone] Ronnie Vazquez MD [address] [place] [address] DR RADIATION ONCOLOGY [place], [place] [phone] Social History Tobacco Use Types Packs/Day Years [...] Progress Notes * Ronnie Vazquez MD - 10/28/2016 10:26 AM EDT RADIATION THERAPY COMPLETION NOTE IDENTIFICATION: Nain Mckeon is a 66 y.o. male diagnosed with node positive prostate cancer who recently completed radiotherapy to his pelvis and prostate at the [place], [place]. Details of his radiation treatment course [...] Customized inman were designed to encompass the target volume and identify organs at risk and with the intent of minimizing normal tissue toxicity. TREATMENT TOLERANCE: With regard to side effects noted during radiotherapy, the patient tolerated treatment extremely well with no significant acute (Grade 3 or above) toxicity. TREATMENT RESPONSE: The patient's response to treatment was undetermined, as he was largely asymptomatic at the time ofpresentation. FOLLOWUP: Follow-up visit with Radiation Oncology in [facility] is scheduled for 11/18/16for clinical symptom check; he has received instructions to call this office or seek the help of the local emergency room if any further problems should arise prior to followup. documented in this encounter Plan of Treatment Upcoming Encounters Date Type Department Care Team (Late st Contact Info) Description 10/24/2023 1:30 PM EDT Office Visit Hematology/Oncology at [address] [phone] Bisi Cheng APRN [facility] [place] [address] documented as of this encounter Visit Diagnoses Not on filedocumented in this encounter Care Teams Dynamite Packing Machine Feeder Relationship Specialty Start Date End Date Celio Sanders MD [address] [place] [address] PCP - General Internal Medicine 05/19/16 documented as of this encounter
--- OUTSIDE RECORDS SUMMARY | 2023-10-12 02:45 | XMS_ITS | Encounter Summary ---
Author Organization [facility] [place] [address] Care Team Providers Care Tight Cooper Name Role Phone Celio Sanders MD Primary Care Provider [phone] Encounter Details Date Type Department Care Team (Late st Contact Info) Description 05/31/2016 9:00 AM EDT Office Visit Radiation Oncology at [address] [phone] Ronnie Vazquez MD [address] [place] [address] DR RADIATION ONCOLOGY [place], [place] [id number] Cancer of prostate with high recurrence risk (stage T3a or [place] 8-10 or PSA > 20); Neoplasm of [...] 36.5 ??C (97.7 ??F) 05/31/2016 9:00 AM ED T Respiratory Rate 16 05/31/2016 9:00 AM EDT Oxygen Saturation 97% 05/31/2016 9:00 AM EDT Inhaled Oxygen Concentration - - Weight - - Height - - Body Mass Index - - documented in this encounter Patient Instructions * Patient Instructions* Ronnie Vazquez MD - 05/31/2016 9:00 AM [...] There is also a very low risk ofheart attack among men who have recently had a [...] help us visualize the prostate on a daily basis prior to treating you with radiation. These [...] ask you to undergo the MRI at [facility] and a CT simulation scan here [facility], typically 1-2 weeks after the placement of the fiducials. 3. Radiation Therapy and Planning: Radiation therapy involves using high energy radiation which kills cancer but also normal healthy tissues. In order to make sure the radiation goes to the canceroustissues and to also avoid radiating the normal [...] in a few ways: First, it allows us to place you in the exact same position which you should expect to be placed during each of your radiation treatment sessions. Second, it lets us better understand where the radiation targets and the normal tissues that we want to avoid exist, in relation to each other and the radiation beams. The second scan is a prostate MRI which we do at [facility], that allows us to better see your prostate. Following these scans, we then perform additional calculations and measurements to create the absolute best plan possible for you. Depending on the complexity of the plan, these processes can take from just few hours to several days, and for [...] Radiation: We discussed some common temporary side effectsthat you may experience during radiation. Common side [...] within 4-6 weeks of completion radiation. 5. Intermediate Complications: These are more worrisome and are due to permanent damage of the radiated tissues, including the rectum/bowel, bladder, prostate and surrounding tissues. Potential serious injury is rare, but can include poor wound healing, bleeding, or destruction of healthy tissue that may require surgery to repair and may result in a colostomy (bag for defecation) or urostomy (bag for urination). There may be a slow, chcf decrease in your sexual function as well, which is partly due to the aging process but also partly due to radiation side effects. This is typically responsive to medications like Viagra. Finally, there is a risk [...] in your blood, Dr. Pham has recommended some additional testing to make sure that you don't also have a bladder cancer. These suggested tests were sent to Dr. Curran's office and we will contact him to be sure there that they are going to be scheduled soon. If not, we can help with arranging for them. documented in this encounter Progress Notes * Ronnie Vazquez MD - 05/31/2016 9:00 AM EDT [facility] Radiation Oncology Established Patient Followup Patient Identification: [...] Dr. Pham of the Urologic Oncology at [facility] on 05/27/16 for the consideration of prostatectomy and/or lymph node sampling. It was Dr. Pham' assessment that the prognostic value of lymph node sampling given the PSA and radiographic appearance ofthe lymph node would not significantly alter management. In the setting of a metastatic lymph node,prostatectomy was not recommended. The other results of the consultation was a recommendation for further workup regarding the patient's hematuria. Follow-up this patients's local urologist Dr. Valle anticipated, which will include cystoscopy, CT urogram [...] 65-year-old man with locally advanced (technically metastatic) prostatecancer, clinically lymph node positive though without evidence for distant metastatic disease. Plan: We discussed the logistics, rationale, toxicities, and complications associated with long-term androgen deprivation therapy, pelvic and prostatic radiotherapy. Mr. Mckeon also had several questions today regarding the feasibility of hyperfractionated regimens including stereotactic body radiot herapy as well as proton radiation therapy. In the setting of a positive pelvic lymph node, stereotactic body radiotherapy would be contraindicated. He may be a candidate for proton radiotherapy, and I have offered to facilitate a referral to [place] for consultation regarding this. I discussed that my primary concern with his prostate canceris not so much local regional control, as the pelvic lymph node is adjacent to the prostate and I be lieve can be covered with full dose. My [...] his tentative intent to proceed with the planning delivery radiotherapy, though again this may be canceled should he decide to proceed with proton treatments in [place]. At this time, we will go ahead [...] arrange for MRI of the prostate at [facility] after this, then CT planning simulation scan after this. I anticipate should all go as expected, radiotherapy would begin sometime toward the end ofMay. He understands that fiducial marker implantation and therefore the remainder of the timeline as outlined above may be delayed pending his evaluation in [place]. So, in summary: 1. Referral to [facility] for consideration of proton therapy 2. Lupron today, Casodex for 14 days to prevent flare 3. Fiducial marker implantation in 1 month, to be followed by MRI and CT simulation scan 4. Informed consent obtained for radiotherapy to the pelvis and prostate, 44 fractions to be delivered in [facility]. Simulation scheduled for 07/21, anticipate RT to start week of 08/02. 5. Confirm Dr. Curran's appointments with the patient regarding hematuria workup. 40 minutes of this 40 minute visit was spent face-to face, counseling the patient and answering hisquestions on treatment options as outlined in my assessment and plan. documented in this encounter Miscellaneous Notes * Addendum Note - Ronnie Vazquez MD - 05/31/2016 10:55 AM EDTAddended by: RONNIE VAZQUEZ on: 05/31/2016 10:55 AM Modules accepted: Orders documented in this encounter Plan of Treatment Upcoming Encounters Date Type Department Care Team (Late st Contact Info) Description 10/24/2023 1:30 PM EDT Office Visit Hematology/Oncology at [address] [phone] Bisi Cheng APRN [facility] [place] [address] documented as of this encounter Procedures Procedure Name Priority Date/Time Associated Diagnosis Comments CHEMOTHERAPY SCAN 05/31/2016 12: 00 AM EDT documented in this encounter Results * SCAN DOC: CHEMOTHERAPY (05/31/2016 12:00 AM EDT) Narrative 05/31/2016 12:00 AM EDT Ordered by an unspecified provider. Scanning Provider MEDIA MGR SCAN EXT O RDR/RSLT documented in this encounter Visit Diagnoses Diagnosis Cancer of prostate with high recurrence risk (stage T3a or Andre 8-10 or PSA > 20) Malignant neoplasm of prostate 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 documented in this encounter Care Teams Tight Cooper Relationship Specialty Start Date End Date Celio Sanders MD [address] [place] [address] PCP - General Internal Medicine 05/19/16 documented as of this encounter
--- OUTSIDE RECORDS SUMMARY | 2023-10-12 02:45 | XMS_ITS | Encounter Summary ---
Author Organization [place] [address] Care Team Providers Care Patient Care Technician Instructor Name Role Phone Celio Sanders MD Primary Care Provider [phone] Reason for Referral * Diagnostic Test (Routine) - Closed Specialty Diagnoses / Procedures Referred By Contac t Referred To Contact Radiology Diagnoses 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 Procedures MRI Pelvis Soft Tissue (Gi Gu Cop)WO Contrast Matthew Pelaez MD [facility] [place] [address] [place] [address] Referral ID Status Reason Start Date Expiration Date V isits Requested Visits Authorized [id number] Closed Specialty Service Requested 07/09/2016 07/09/2017 1 1 Encounter Details Date Type Department Care Team (Late st Contact Info) Description 07/09/2016 Orders Only [place] [address] Matthew Pelaez MD [facility] [place] [address] Neoplasm of prostate regional lymph node staging [...] PM EDT Office Visit Hematology/Oncology at [address] [phone] Bisi Cheng APRN [facility] [place] [address] documented as of this encounter Results * MRI Pelvis Soft Tissue (Gi Gu Cop)WO Contrast (08/13/2016 5:02 PM EDT) Anatomical Region [...] EDT EXAMINATION: MRI PELVIS SOFT TISSUE (GI GOLF CLUB HEAD INSPECTOR) WO CONTRAST CLINICAL HISTORY: Prostate cancer for [...] 08/15/2016 EXAMINATION: MRI PELVIS SOFT TISSUE (GI [employer] HEAD INSPECTOR) WO CONTRAST CLINICAL HISTORY: Prostate cancer for [...] on size and morphology. Matthew Pelaez MD G MRI ORDERABLES documented in this encounter Visit Diagnoses Diagnosis 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 documented in this encounter Care Teams Patient Care Technician Instructor Relationship Specialty Start Date End Date Celio Sanders MD [address] [place] [address] PCP - General Internal Medicine 05/19/16 documented as of this encounter
--- OUTSIDE RECORDS SUMMARY | 2023-10-12 02:45 | XMS_ITS | Encounter Summary ---
Author Organization [facility] [place] [address] Care Team Providers Care Appetizer Packer Name Role Phone Celio Sanders MD Primary Care Provider Encounter Details Date Type Department Care Team (Late st Contact Info) Description 09/16/2016 12:00 PM EDT Office Visit Radiation Oncology at [address] [phone] Ronnie Vazquez MD [address] [place] [address] RADIATION ONCOLOGY [place], [place] [address] Cancer of prostate with high recurrence risk (stage T3a or [place] 8-10 or PSA > 20) Social History [...] Progress Notes * Ronnie Vazquez MD - 09/16/2016 12:00 PM EDT Images from the original note were not included. RADIATION ONCOLOGY - Weekly On Treatment Visit Note 09/16/16 Ronnie Vazquez MD Radiation Oncology [facility] [phone] (paging dip lube operator) PATIENT IDENTIFICATION NAME: Nain Mckeon DATE [...] PM EDT Office Visit Hematology/Oncology at [address] [phone] Bisi Cheng APRN [facility] [place] [address] documented as of this encounter Visit Diagnoses Diagnosis Cancer of prostate with high recurrence risk (stage T3a or [place] 8-10 or PSA > 20) Malignant neoplasm of prostate documented in this encounter Care Teams Appetizer Packer Relationship Specialty Start Date End Date Celio Sanders MD [address] [place] [address] PCP - General Internal Medicine 05/19/16 documented as of this encounter
--- OUTSIDE RECORDS SUMMARY | 2023-10-12 02:45 | XMS_ITS | Encounter Summary ---
[place] [address] Care Team Providers Care Licensing Registration Examiner Name Role Phone Celio Sanders MD Primary Care Provider [phone] Reason for Visit * Reason Comments Follow-up Encounter Details Date Type Department Care Team (Latest Contact Info) Description 09/03/2016 8:00 AM EDT Clinical Support [place]ematology [place] [phone] Dietary counseling Social History Tobacco Use Types Packs/Day Years [...] kg (179 lb 6.4 oz) 09/03/2016 7:58 A M EDT Height 161.4 cm (5' 3.54) 09/03/2016 7:58 AM ED T Body Mass Index 31.24 09/03/2016 7:58 AM EDT documented in this encounter Progress Notes * Kimberly Cobb RD - 09/03/2016 8:00 AM EDT [facility] Initial Dietitian Assessment Seen By: Kimberly Cobb, , RD, LD, ICE CREAM VAULT WORKER Referred by: Reason for visit: Patient and [...] nutrition and prostate Ca. Patient came prepared with several questions. Reviewed and answered questions. Denies barriers [...] goal of 1000mg/day through foods and/or supplement and 600-1000IU/day of vitamin D if he is not outside at all during the day. Nutrition Goals: Healthy varied diet Educational Handouts provided: NCM: Diarrhea; Prostate Handout; Protein Needs; International [employer]opor[employer]- List of Calcium containing foods; OnDPG: Prostate Ca and Nutrition, Flaxseeds andProstate Ca, Calcium and Prostate Ca Monitoring and [...] PM EDT Office Visit Hematology/Oncology at [address] [phone] Bisi Cheng APRN [facility] [place] [address] documented as of this encounter Visit Diagnoses Diagnosis Dietary counseling Dietary surveillance and counseling documented in this encounter Care Teams Licensing Registration Examiner Relationship Specialty Start Date End Date Celio Sanders MD [address] [place] [address] PCP - General Internal Medicine 05/19/16 documented as of this encounter
--- OUTSIDE RECORDS SUMMARY | 2023-10-12 02:45 | XMS_ITS | Encounter Summary ---
Author Organization [facility] [place] [address] Care Team Providers Care Line O Scribe Operator Name Role Phone Celio Sanders MD Primary Care Provider [phone] Encounter Details Date Type Department Care Team (Late st Contact Info) Description 08/03/2016 1:32 PM EDT Anesthesia [place] [address] Audie Frances MD [facility] DR [place] [address] Anesthesia Record Procedure Summary Procedure Name Responsible Anesthesiologist Anesthesia Start Time Anesthesia Stop Time PROSTATE IMPLANT GOLD COIL PROCEDURE (WRVU 13.46) (Perineum) Audie Frances MD 08/03/16 1332 08/03/16 1514 Events Date Time Event Comment 08/03/2016 1302 1332 AN Verify 1332 Start 1332 An Start Data 1345 Anesthesia Ready 1503 an stop data 1509 Recovery or ICU Handoff Renu ent care was transferred to the destination unit staff after review of the patient's medical history, current anesthetic/surgical status and plan, according to the Provider Handoff Checklist. 1514 Stop Meds Name Total IV Lidocaine 50 mg Propofol 50 mg Propofol INF 779 mg levofloxacin (LEVAQUIN) 500 mg in dextro se 5% 100 mL 500 mg lactated Ringers infusion 1,000 mL 700 m L * Agents Name O2 * Blood No blood administrations on file. Lines, Drains, and Airways Type Details Placement Removal (RETIRED) Peripheral IV Line - Single Lumen 08/03/16; 1201; median cubital vein (antecubital fossa), right; fjgs-jxs-ikordn catheter system; 20 gauge, 3/4 in length; josef maria; intradermal injection, tolerated well; no longer indicated, removed per policy/procedure, catheter/device intact; 08/03/16; 1620 08/03/16 1201 by Josef Maria RN 08/03/16 1620 by Mitali Mann RN documented in this encounter Social History [...] OR Notes * Anesthesia Postprocedure Evaluation - Audie Frances MD - 08/03/2016 5:49 PM EDT [facility] Department of Anesthesiology Post-procedure Note Patient: Nain Mckeon Procedure Summary Date Anesthesia Start Anesthesia Stop Room / Location 08/03/16 1332 1514 [facility] SURGERY / [facility] MAIN OR Procedure Diagnosis Surgeon Responsible Provider PROSTATE IMPLANT GOLD COIL PROCEDURE (WRVU 13.46) (N/A Perineum) (PROSTATE CA GOLD COIL IMPLANT/ MINOR OR) Matthew Pelaez MD Nguyen, Tung T, MD All Anesthesia Providers: Anesthesiologist: Audie Frances MD EXTRUDING MACHINE OPERATOR: Rama Valdez CRNA Last (1hr) Vitals: BP Temp Pulse Resp SpO2 Patient Location: PACU/[facility] Level of Consciousness: Awake and Alert Pain Management: Satisfactory Analgesia PONV: None Cardiovascular Status: At Baseline Respiratory Status: At Baseline Postoperative Fluid Status: Intravascular EUvolemia Possible Anesthetic Complications: NONE apparent at time of evaluation Final Primary Anesthesia Type: MAC (The anesthetic type performed was the same as planned.) Comments: * Anesthesia Preprocedure Evaluation - Audie Frances MD [...] PM EDT Office Visit Hematology/Oncology at [address] [phone] Bisi Cheng APRN [facility] [place] [address] documented as of this encounter Visit Diagnoses [...] 500 mg in dextrose 5% 100 mL 500 mg, Intravenous, at 100 mL/hr, Administer over 60 Minutes, EVERY 24 HOURS, 1 dose, First dose on Tue08/03/16 at 1345, Day of Surgery (Day of Procedure), STAT, Indication for (Active or Suspected): Prophylaxis, Restricted Antibiotic: Please indicate the most appropriate choice: Pre-approved Indication (State the indication in Comments field) Given 08/03/2016 1:32 PM EDT 500 mg lidocaine (PF) (XYLOCAINE) 100 mg/5 mL (2 %) injection PRN, Starting on Tue08/03/16 at 1341, Until Tue08/03/16 at 1518, Anesthesia Intra-op, Routine Given 08/03/2016 1:41 PM EDT 50 mg propofol (DIPRIVAN) 10 mg/mL bolus injection (Anesthesia) PRN, Starting on Tue08/03/16 at 1341, Until Tue08/03/16 at 1518, Anesthesia Intra-op Given 08/03/2016 1:41 PM EDT 50 mg propofol (DIPRIVAN) infusion CONTINUOUS PRN, Starting on Tue08/03/16 at 1341, Until Tue08/03/16 at 1518, Anesthesia Intra-op, Routine Rate/Dose Change 08/03/2016 2:47 PM EDT 100 mcg/kg/min 49.2 mL/hr Rate/Dose Change 08/03/2016 1:59 PM EDT 125 mcg/kg/min 61. 5 mL/hr New Bag 08/03/2016 1:41 PM EDT 150 mcg/kg/min 73.8 mL/h r documented in this encounter Care Teams Line O Scribe Operator Relationship Specialty Start Date End Date Celio Sanders MD [address] [place] [address] PCP - General Internal Medicine 05/19/16 documented as of this encounter
--- OUTSIDE RECORDS SUMMARY | 2023-10-12 02:45 | XMS_ITS | Encounter Summary ---
Author Organization [facility] [place] [address] Care Team Providers Care Rv Mechanic Name Role Phone Celio Sanders MD Primary Care Provider [phone] Encounter Details Date Type Department Care Team (Late Contact Info) Description 12/21/2016 Telephone [place] [phone] Nicky Marcelo Social History Tobacco Use Types [...] * Telephone Encounter - Nicky Marcelo - 12/21/2016 2:07 PM EDT Spoke w/ pt re: bill for space oar gel and how I have given this to our director documented in this encounter Plan of Treatment Upcoming Encounters Date Type Department Care Team (Late Contact Info) Description 10/24/2023 1:30 PM EDT Office Visit Hematology/Oncology at [address] [phone] Bisi Cheng APRN [facility] [place] [address] documented as of this encounter Visit Diagnoses Not on filedocumented in this encounter Care Teams Rv Mechanic Relationship Specialty Start Date End Date Celio Sanders MD [address] [place] [address] PCP - General Internal Medicine 05/19/16 documented as of this encounter
--- OUTSIDE RECORDS SUMMARY | 2023-10-12 02:45 | XMS_ITS | Encounter Summary ---
Author Organization [facility] Address [facility] [place] [address] Care Team Providers Care Digital Photographic Printer Name Role Phone Celio Sanders MD Primary Care Provider [phone] Encounter Details Date Type Department Care Team (Latest Contact Info) Description 08/03/2016 1:05 PM EDT Procedure visit [place] [address] Matthew Pelaez MD [facility] [place] [address] Neoplasm of prostate regional lymph node staging [...] Notes * Matthew Pelaez MD - 08/03/2016 1:05 PM EDT Please see inpatient notes. documented in this encounter Plan of Treatment Upcoming Encounters Date Type Department Care Team (Late st Contact Info) Description 10/24/2023 1:30 PM EDT Office Visit Hematology/Oncology at [address] [phone] Bisi Cheng APRN [facility] [place] [place] [address] documented as of this encounter Visit Diagnoses Diagnosis 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 documented in this encounter Care Teams Digital Photographic Printer Relationship Specialty Start Date End Date Celio Sanders MD [address] [place] [address] PCP - General Internal Medicine 05/19/16 documented as of this encounter
--- OUTSIDE RECORDS SUMMARY | 2023-10-12 02:45 | XMS_ITS | Encounter Summary ---
Author Organization [facility] Address [facility] KRISS Suárez [address] Care Team Providers Care Fishing Manager Name Role Phone Celio Sanders MD Primary Care Provider [phone] Encounter Details Date Type Department Care Team (Late Contact Info) Description 05/28/2016 Telephone Radiation Oncology at [address] [phone] Harjeet Silvestre Social History Tobacco [...] encounter Miscellaneous Notes * Telephone Encounter - aHrjeet Silvestre - 05/28/2016 8:16 AM EDT Patient called requesting an appointment with Dr. Vazquez to discuss treatment seeing as he is not a candidate for surgery. He agreed to come in this coming Wednesday 05/31 at 9am. documented in this encounter Plan of Treatment Upcoming Encounters Date Type Department Care Team (Late st Contact Info) Description 10/24/2023 1:30 PM EDT Office Visit Hematology/Oncology at [address] [phone] Bisi Cheng APRN [facility] [place] [address] documented as of this encounter Visit Diagnoses Not on filedocumented in this encounter Care Teams Fishing Manager Relationship Specialty Start Date End Date Celio Sanders MD [address] [place] [address] PCP - General Internal Medicine 05/19/16 documented as of this encounter
--- OUTSIDE RECORDS SUMMARY | 2023-10-12 02:45 | XMS_ITS | Encounter Summary ---
Author Organization Formerly [facility] [place] [address] Care Team Providers Care Parent Partner Name Role Phone Celio Sanders MD Primary Care Provider [phone] Encounter Details Date Type Department Care Team (Late st Contact Info) Description 07/07/2016 8:30 AM EDT Procedure visit Radiation Oncology at [address] [phone] Ronnie Vazquez MD [address] [place] [address] DR RADIATION ONCOLOGY [place], [place] [id number] Neoplasm of prostate regional lymph node staging [...] 36.6 ??C (97.9 ??F) 07/07/2016 8:12 AM ED T Respiratory Rate 16 07/07/2016 8:12 AM EDT Oxygen Saturation 96% 07/07/2016 8:12 AM EDT Inhaled Oxygen Concentration - - Weight - - Height - - Body Mass Index - - documented in this encounter Progress Notes * Alta Muse RN - 07/07/2016 8:30 AM [...] He comes to clinic accompanied by a jitney driver ( ). [ yes ] if [...] having this procedure done under sedation at [facility] by Dr Pelaez. Patient was instructed tostop taking the cipro and dexamethasone since the procedure was not done today. See Dr Vazquez's note for further details. He has the [facility] phone number and verbalized understanding to ask for the occupational health physician radiation oncologist if he needs to after clinic hours. [ drove him ] If applicable: He was reminded to not drive home due to Lorazepam. Time of discharge: 10:00 vital signs stable,and gait steady. * Ronnie Vazquez MD - 07/07/2016 8:30 AM EDT Identification: Nain Mckeon is a 65 y.o. year old gentleman with high risk prostate cancer likelyinvolving regional lymph nodes, who has consented for external beam radiotherapy. Procedure: Gold coil fiducial marker placement within the prostate for radiation localization during therapy. Physician: Ronnie Vazquez MD Anesthesia: Local lidocaine with bicarbonate Description of Procedure: Nain Mckeon was placed in the lithotomy position. A transrectal ultrasound probe was placed within the rectum and was not tolerated by the patient. The procedure was aborted and will be re-attempted with more advanced sedation, likely with anesthesiology support. Complications: None Estimated Blood Loss: None Disposition: A referral has been placed for the patient to undergo fiducial marker placement by Dr. Mattehw Pelaez at [facility]. documented in this encounter Plan of Treatment Upcoming Encounters Date Type Department Care Team (Late st Contact Info) Description 10/24/2023 1:30 PM EDT Office Visit Hematology/Oncology at [address] [phone] Bisi Cheng, [facility] [place] [address] documented as of this encounter Visit Diagnoses Diagnosis 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 documented in this encounter Care Teams Parent Partner Relationship Specialty Start Date End Date Celio Sanders MD [address] [place] [address] PCP - General Internal Medicine 05/19/16 documented as of this encounter
--- OUTSIDE RECORDS SUMMARY | 2023-10-12 02:45 | XMS_ITS | Encounter Summary ---
Author Organization [facility] [place] [address] Care Team Providers Care Taxonomy Teacher Name Role Phone Celio Sanders MD Primary Care Provider [phone] Encounter Details Date Type Department Care Team (Late st Contact Info) Description 10/21/2016 4:45 PM EDT Office Visit Radiation Oncology at [address] [phone] Ronnie Vazquez MD [address] [place] [address] DR RADIATION ONCOLOGY [place], [place] [id number] Cancer of prostate with high recurrence risk (stage T3a or [place] 8-10 or PSA > 20); Neoplasm of [...] 36.6 ??C (97.9 ??F) 10/21/2016 4:52 PM ED T Respiratory Rate 16 10/21/2016 4:52 PM EDT Oxygen Saturation 97% 10/21/2016 4:52 PM EDT Inhaled Oxygen Concentration - - Weight 83.9 kg (185 lb) 10/21/2016 4:52 PM EDT Height - - Body Mass Index 32.21 09/03/2016 7:58 AM EDT documented in this encounter Progress Notes * Ronnei Vazquez MD - 10/21/2016 4:45 PM EDT Images from the original note were not included. RADIATION ONCOLOGY - Weekly On Treatment Visit Note 10/21/16 Ronnie Vazquez MD Radiation Oncology [facility] [phone] (paging sizing machine and drier operator) PATIENT IDENTIFICATION NAME: Nain Mckeon DATE [...] Pain score today is 0/10. Medications 10/21/16 9934 Medication Sig Taking? ondansetron (ZOFRAN-ODT) 8 mg Tablet, Rapid Dissolve Take 1 tablet by mouth every 8 hours as neededfor Nausea. Yes loperamide (IMODIUM A-D) 2 mg [...] 1:30 PM EDT Office Visit Hematology/Oncology at [address] [phone] Bisi Cheng, [facility] [place] [address] documented as of this encounter Visit Diagnoses Diagnosis Cancer of prostate with high recurrence risk (stage T3a or Andre 8-10 or PSA > 20) Malignant neoplasm of prostate 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 documented in this encounter Care Teams Taxonomy Teacher Relationship Specialty Start Date End Date Celio Sanders MD [address] [place] [address] PCP - General Internal Medicine 05/19/16 documented as of this encounter
--- OUTSIDE RECORDS SUMMARY | 2023-10-12 02:45 | XMS_ITS | Encounter Summary ---
Author Organization Formerly [facility] [place] [address] Care Team Providers Care Sanitary Engineer Name Role Phone Celio Sanders MD Primary Care Provider [phone] Encounter Details Date Type Department Care Team (Late Contact Info) Description 06/09/2016 Telephone Radiation Oncology at [address] [phone] Harjeet Silvestre Social History Tobacco Use Types [...] * Telephone Encounter - Harjeet Silvestre - 06/09/2016 8:41 AM EDT Nain called and wanted to go over his appointment letter that he received for his gold coil appointments. I went over all of his appointments, answering any questions that he had. He did say that he had lost his letter of instructions for his MRI which I said I could mail him a new one. All of his questions were answered. documented in this encounter Plan of Treatment Upcoming Encounters Date Type Department Care Team (Late Contact Info) Description 10/24/2023 1:30 PM EDT Office Visit Hematology/Oncology at [address] [phone] Bisi Cheng APRN [facility] [place] [address] documented as of this encounter Visit Diagnoses Not on filedocumented in this encounter Care Teams Sanitary Engineer Relationship Specialty Start Date End Date Celio Sanders MD [address] [place] [address] PCP - General Internal Medicine 05/19/16 documented as of this encounter
--- OUTSIDE RECORDS SUMMARY | 2023-10-12 02:45 | XMS_ITS | Encounter Summary ---
Author Organization Formerly [facility] Address [facility] [place] [address] Care Team Providers Care Cook Ice Cream Name Role Phone Celio Sanders MD Primary Care Provider [phone] Encounter Details Date Type Department Care Team (Latest Contact Info) Description 08/03/2016 11:27 AM EDT - 08/03/2016 4:27 PM EDT Hospital En[place] [phone] Matthew Pelaez MD [facility] [place] [address] Discharge Disposition: Home Social History Tobacco Use [...] riding on anything that bounces such as miniature set designer, ATV, horse back riding or motorcycle riding [...] Pelaez MD - 08/03/2016 4:27 PM EDT [facility] Operative Note Patient Name: Nain Mckeon : [id number] MR#: [id number] Case Date: 08/03/2016 Surgeon: Surgeon(s) and Role: [...] prostate cancer, PSA 47.5, Andre 4+4=8/10, Stage [id number]. He is planned for EBRT along with ADT. First Lupron injection was 22.5 mg (3-months) on 05/31/16. He originally was seen in [facility] by Dr. Vazquez. He did not tolerate [...] The Space(OAR) system was prepared as per medical transcription radiology's recommendations. A needle was then placed trans-perineally [...] 1:30 PM EDT Office Visit Hematology/Oncology at [address] [phone] Bisi Cheng APRN [facility] [place] [address] documented as of this encounter Procedures Procedure [...] CRNA) documented in this encounter Care Teams Cook Ice Cream Relationship Specialty Start Date End Date Celio Sanders MD [address] [place] [address] PCP - General Internal Medicine 05/19/16 documented as of this encounter
--- OUTSIDE RECORDS SUMMARY | 2023-10-12 02:45 | XMS_ITS | Encounter Summary ---
Author Organization [facility] [place] [address] Care Team Providers Care Showroom Consultant Name Role Phone Celio Sanders MD Primary Care Provider Encounter Details Date Type Department Care Team (Late st Contact Info) Description 10/14/2016 8:30 AM EDT Office Visit Radiation Oncology at [address] [phone] Ronnie Vazquez MD [address] [place] [address] DR RADIATION ONCOLOGY [place], [place] [phone] Cancer of prostate with high recurrence risk (stage T3a or [place] 8-10 or PSA > 20) Social History [...] kg (184 lb 3.2 oz) 10/14/2016 8:00 A M EDT Height - - Body Mass Index 32.07 09/03/2016 7:58 AM EDT documented in this encounter Progress Notes * Ronnie Vazquez MD - 10/14/2016 8:30 AM EDT Images from the original note were not included. RADIATION ONCOLOGY - Weekly On Treatment Visit Note 10/14/16 Ronnie Vazquez MD Radiation Oncology [facility] [phone] (paging coke crusher operator) PATIENT IDENTIFICATION NAME: Nain Mckeon DATE [...] for Diarrhea. Maximum 16mg in 24 hours Imaging / Laboratory Studies: [...] 1:30 PM EDT Office Visit Hematology/Oncology at [address] [phone] Bisi Cheng APRN [facility] MEDICAL ONCOLOGY [facility] [place] [address] documented as of this encounter Visit Diagnoses Diagnosis Cancer of prostate with high recurrence risk (stage T3a or [place] 8-10 or PSA > 20) Malignant neoplasm of prostate documented in this encounter Care Teams Showroom Consultant Relationship Specialty Start Date End Date Celio Sanders MD [address] [place] [address] PCP - General Internal Medicine 05/19/16 documented as of this encounter
--- OUTSIDE RECORDS SUMMARY | 2023-10-12 02:45 | XMS_ITS | Encounter Summary ---
Author Organization Formerly [facility] Address [facility] [place] [address] Care Team Providers Care Toolroom Checker Name Role Phone Celio Sanders MD Primary Care Provider [phone] Reason for Visit * Reason Comments Prostate Cancer * Consultation (Routine) - Closed Specialty Diagnoses / Procedures Referred By Contac t Referred To Contact Hematology and Oncology Diagnoses Cancer of prostate with high recurrence risk (stage T3a or Andre 8-10 or PSA > 20) Ronnie Vazquez MD [address] [place] [address] [place] [address] St[facility] Hem Onc Office [address] [place] [phone] Referral ID Status Reason Start Date Expiration Date V isits Requested Visits Authorized [id number] Closed Consult, Test & Treat 10/07/2016 10/07/2017 1 1 Encounter Details Date Type Department Care Team (Late st Contact Info) Description 11/10/2016 12:00 PM EDT Office Visit Hematology [place] [phone] Harjinder Snyder MD [facility] DR [place] [address] Malignant neoplasm of prostate Social History Tobacco [...] 36.6 ??C (97.9 ??F) 11/10/2016 11:49 AM E DT Respiratory Rate 18 11/10/2016 11:49 AM EDT Oxygen Saturation 97% 11/10/2016 11:49 AM EDT Inhaled Oxygen Concentration - - Weight 81.5 kg (179 lb 9.6 oz) 11/10/2016 11:49 AM EDT Height - - Body Mass Index 31.27 09/03/2016 7:58 AM EDT documented in this encounter Progress Notes * Harjinder Snyder MD - 11/10/2016 12:00 PM [...] Andre 4+4 disease in 2 cores and [place] 4+3 disease in 3 additional cores. 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 A - Prostatic core needle biopsy, right lateral base: ? 1. Adenocarcinoma, grade group 3, Andre grade 4+3, ?involving 95% of the biopsy core. ? 2. Perineural invasion identified. B - Prostatic core needle biopsy, right medial base: ? 1. Adenocarcinoma, grade group 3, [place] grade 4+3, ?involving 95% of the biopsy [...] and Plan: Diagnosis: Prostate adenocarcinoma, PSA 47.5, [place] 4+4=8/10, Stage [id number]. Treatment: - 05/31/16 Lupron 22.5 and bicalutamide 50 mg a day - 08/24/16 - 10/27/16 XRT Mr. Mckeon has prostate adenocarcinoma with very high risk for recurrence. He has been on concurrent radiation and androgen deprivation therapy. Currently he continues [...] regional lymph node metastatic disease only. CHAARTED Trial was negative in subgroup of patients with low [...] prostate cancer. Patients with regional lymph node metastases only were excluded. 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 It can be changed within next few months though. At this moment Mr. Mckeon is receiving a standard of care treatment with skilled nursing ADT. I recommended to continue current regimen. [...] PM EDT Office Visit Hematology/Oncology at [address] [phone] Bisi Cheng APRN [facility] [place] [address] Scheduled Referrals Name Type Priority Associated Diagnoses Order Schedule Referral to Hematology and Oncology Outpatient Referral Routine Cancer of prostate with high recurrence risk (stage T3a or Andre 8-10 or PSA > 20) Ordered: 10/07/2016 documented as of this encounter Visit Diagnoses Diagnosis Malignant neoplasm of prostate documented in this encounter Care Teams Toolroom Checker Relationship Specialty Start Date End Date Celio Sanders MD [address] [place] [address] PCP - General Internal Medicine 05/19/16 documented as of this encounter
--- OUTSIDE RECORDS SUMMARY | 2023-10-12 02:45 | XMS_ITS | Encounter Summary ---
Author Organization Formerly [facility] [place] [address] Care Team Providers Care Technology Teacher Name Role Phone Celio Sanders MD Primary Care Provider [phone] Encounter Details Date Type Department Care Team (Late Contact Info) Description 06/03/2016 Telephone Radiation Oncology at [address] [phone] Harjeet Silvestre Social History Tobacco [...] * Telephone Encounter - Harjeet Silvestre - 06/03/2016 [...] PM EDT Office Visit Hematology/Oncology at [address] [phone] Bisi Cheng APRN [facility] [place] [address] documented as of this encounter Visit Diagnoses Not on filedocumented in this encounter Care Teams Technology Teacher Relationship Specialty Start Date End Date Celio Sanders MD [address] [place] [address] PCP - General Internal Medicine 05/19/16 documented as of this encounter
--- OUTSIDE RECORDS SUMMARY | 2023-10-12 02:46 | XMS_ITS | Encounter Summary ---
Author Organization [facility] [place] [address] Care Team Providers Care Mill Recorder Name Role Phone Celio Sanders MD Primary Care Provider [phone] Encounter Details Date Type Department Care Team (Late Contact Info) Description 05/17/2016 External Results [place] [address] Provider, Scanning Social History Tobacco Use Types Packs/Day Years [...] PM EDT Office Visit Hematology/Oncology at [address] [phone] Bisi Cheng APRN [facility] [place] [address] documented as of this encounter Procedures Procedure Name Priority Date/Time Associated Diagnosis Comments SURGICAL PATHOLOGY SCAN Routine 05/17/2016 documented in this encounter Results * Scan Doc: Surgical Pathology (05/17/2016) Savanah Sewell MD MEDIA MGR SCAN E XT ORDR/RSLT documented in this encounter Visit Diagnoses Not on filedocumented in this encounter Care Teams Mill Recorder Relationship Specialty Start Date End Date Celio Sanders MD [address] [place] [address] PCP - General Internal Medicine 05/19/16 documented as of this encounter
--- OUTSIDE RECORDS SUMMARY | 2023-10-12 02:46 | XMS_ITS | Encounter Summary ---
Author Organization [facility] Address [facility] [place] [address] Care Team Providers Care Hunter Skin Diver Name Role Phone Angelica Mak MD Primary Care Provider [phone] Encounter Details Date Type Department Care Team (Latest Contact Info) Description 04/27/2016 - 04/27/2016 11:59 PM EST Hospital Encounter [place] [phone] Celio Sanders MD [address] [place], [place] [address] Pain Discharge Disposition: Home Social History Tobacco Use Types Packs/Day Years Used Date Smoking Tobacco: Never Assessed Sex and Gender Information Value Date Recorded Sex Assigned at Not on file Gender Identity Not on file Sexual Orientation Not on file documented as of this encounter Medications at Time of Discharge Medication Sig Dispensed Refills Start Date End Date methylphenidate (RITALIN) 5 mg tablet Take 5 mg by mouth 2 times daily. 05/19/2016 lamoTRIgine (LAMICTAL) 100 mg tablet Take 150 mg by mouth daily. Reported on 05/19/2016 05/19/2016 aripiprazole (ABILIFY) 15 mg tablet Take 15 mg by mouth daily. 05/19/2016 pravastatin (PRAVACHOL) 10 mg tablet Take 20 mg by mouth daily. Reported on 05/31/2016 05/31/2016 mirtazapine (REMERON) 15 mg tablet Take 15 mg by mouth nightly. 07/22/2016 atovaquone-proguanil (MALARONE) 250-100 mg per tablet Take 1 tablet by mouth daily. Start 1 day prior to travel; Take daily in malaria area; continue for 7 days after return 26 tablet 0 01/25/2011 05/19/2016 lamoTRIgine (LAMICTAL) 200 mg tablet 200 MG = 1 Tablet(s), PO, Twice daily 03/03/2007 05/19/2016 escitalopram (LEXAPRO) 20 mg tablet 30 MG = 1 1/2 Tablet(s), PO, Once daily 03/03/2007 05/19/2016 DULoxetine (CYMBALTA) 30 mg capsule 30 MG = 1 Capsule(s), PO, Once daily 03/03/2007 05/19/2016 clonAZEpam (KLONOPIN) 0.5 mg tablet 0.5 MG = 1 Tablet(s), PO, Once daily 01/04/2007 05/19/2016 documented as of this encounter Plan of Treatment Upcoming Encounters Date Type Department Care Team (Late st Contact Info) Description 10/24/2023 1:30 PM EDT Office Visit Hematology/Oncology at [address] [phone] Bisi Cheng APRN [facility] [place] [address] documented as of this encounter Procedures Procedure Name Priority Date/Time Associated Diagnosis Comments FILM LIBRARY STORAGE ONLY ULTRASOUND STUDY Routine 04/27/2016 12:00 AM EST Pain documented in this encounter Results * Film Library- Storage Only Ultrasound Study (04/27/2016 12:00 AM EST) Narrative [facility] [place] - 05/14/2016 9:55 AM EST This exam is for storage only and is auto-finalizing. Celio Sanders MD IMG FILM LIBRARY ORD ERABLES [place], [place] documented in this encounter Visit Diagnoses Diagnosis Pain Generalized pain documented in this encounter Care Teams Hunter Skin Diver Relationship Specialty Start Date End Date Angelica Mak MD [address] [place] [address] PCP - General 01/27/10 05/18/16 documented as of this encounter
--- OUTSIDE RECORDS SUMMARY | 2023-10-12 02:46 | XMS_ITS | Encounter Summary ---
Author Organization Formerly [facility] [place] [address] Care Team Providers Care Property Field Adjuster Name Role Phone Angelica Mak MD Primary Care Provider [phone] Encounter Details Date Type Department Care Team (Late st Contact Info) Description 05/17/2016 Telephone Radiation Oncology at [address] [phone] Harjeet Silvestre Social History Tobacco Use Types Packs/Day Years Used Date Smoking Tobacco: Never Assessed Sex and Gender Information Value Date Recorded Sex Assigned at Not on file Gender Identity Not on file Sexual Orientation Not on file documented as of this encounter Miscellaneous Notes * Telephone Encounter - Harjeet Silvestre - 05/17/2016 [...] Office Visit Hematology/Oncology at [address] [phone] Bisi Cheng APRN [facility] [place] [address] documented as of this encounter Visit Diagnoses Not on filedocumented in this encounter Care Teams Property Field Adjuster Relationship Specialty Start Date End Date Angelica Mak MD [address] [place] [address] PCP - General 01/27/10 05/18/16 documented as of this encounter
--- OUTSIDE RECORDS SUMMARY | 2023-10-12 02:46 | XMS_ITS | Encounter Summary ---
Author Organization [facility] [place] [address] Care Team Providers Care Butting Saw Operator Name Role Phone Angelica Mak MD Primary Care Provider [phone] Encounter Details Date Type Department Care Team (Late Contact Info) Description 05/18/2016 Telephone Radiation Oncology at [address] [phone] Harjeet Silvestre Social History Tobacco Use Types Packs/Day Years Used Date Smoking Tobacco: Never Assessed Sex and Gender Information Value Date Recorded Sex Assigned at Not on file Gender Identity Not on file Sexual Orientation Not on file documented as of this encounter Miscellaneous Notes * Telephone Encounter - Harjeet Silvestre - 05/18/2016 2:49 PM EDT Received a call from Yaneth (Nain's ) saying that she believes that coming in for 1PM should be fine. She will inform Nain and he is to call if he cannot make it in. * Telephone Encounter - Harjeet Silvestre - 05/18/2016 [...] PM EDT Office Visit Hematology/Oncology at [address] [phone] Bisi Cheng APRN [facility] [place] [address] documented as of this encounter Visit Diagnoses Not on filedocumented in this encounter Care Teams Butting Saw Operator Relationship Specialty Start Date End Date Angelica Mak MD [address] [place] [address] PCP - General 01/27/10 05/18/16 documented as of this encounter
--- OUTSIDE RECORDS SUMMARY | 2023-10-12 02:46 | XMS_ITS | Encounter Summary ---
Author Organization [facility] Address [facility] [place] [address] Care Team Providers Care Bow Maker Gift Wrapping Name Role Phone Angelica Mak MD Primary Care Provider [phone] Encounter Details Date Type Department Care Team (Latest Contact Info) Description 05/17/2016 3:39 PM EDT - 05/17/2016 11:59 PM EDT Hospital Encounter Laboratory [facility] [place] [phone] Discharge Disposition: Home Social History Tobacco Use [...] PM EDT Office Visit Hematology/Oncology at [address] [phone] Bisi Cheng APRN [facility] [place] [address] documented as of this encounter Procedures Procedure Name Priority Date/Time Associated Diagnosis Comments SURGICAL PATHOLOGY REPORT Routine 05/17/2016 4:06 PM EDT documented in this encounter Results * Surgical Pathology Report (05/17/2016 4:06 PM EDT) Final Diagnosis [id number] ?Location: OPW The signing pathologist has (i) examined the relevant preparation(s) for the specimen(s) and (ii) rendered or confirmed the diagnosis(es). . ?Surgical Pathology DIAGNOSIS CONSULTATION CASE Extradepartmental number: ??[id number]; collection date, 04/27/2016. A - Prostatic core [...] right mid lateral: ?Adenocarcinoma, grade group 4, Andre grade 4+4, ?involving 90% of the biopsy core. D - Prostatic core needle biopsy, right mid medial: ?1. Adenocarcinoma, grade group 4, Andre grade 4+4, ? involving 40% of the biopsy core. ?2. Perineural invasion identified. E - Prostatic core needle biopsy, right lateral apex: ?Benign prostatic tissue. F - Prostatic core needle biopsy, right medial apex: ?Adenocarcinoma, grade group 3, Taylor grade 3+4, ?involving 25% of the biopsy [...] ?Benign prostatic tissue. CR-0 Electronically signed by: ??Sedrick Franco MD Verified: ??05/18/2016 ?Pathologist CLINICAL INFORMATION Specimen Submitted: . CLINICAL INFORMATION CONSULTATION CASE A - 24 slide(s) labeled [id number], collection date 04/27/2016. [id number] Report to: [facility] Surgical Pathology Department [facility], [facility], [address]nd Floor [address] [place] [address] ??[id number] SPECIMEN PROCESSING [facility] ([facility]) pathology slide(s) are reviewed. ??Refer to Diagnosis and Specimen Submitted for specific case information. For the full text of the [facility] report(s) please refer to Non-DH Documentation Pathology in the electronic health record (eDH). 05/18/2016 2:17 PM EDT [facility] Consult Case 05/17/2016 4:06 PM EDT 05/17/2016 4:06 PM EDT Savanah Sewell MD PATHOLOGY/CYTOLO GY ORDERABLES [facility] [place] [place] [address] documented in this encounter Visit Diagnoses Not on filedocumented in this encounter Care Teams Bow Maker Gift Wrapping Relationship Specialty Start Date End Date Angelica Mak MD [address] [place] [address] PCP - General 01/27/10 05/18/16 documented as of this encounter
--- OUTSIDE RECORDS SUMMARY | 2023-10-12 02:46 | XMS_ITS | Encounter Summary ---
Author Organization [facility] Address [facility] [place] [address] Care Team Providers Care Garde Manger Name Role Phone Angelica Mak MD Primary Care Provider [phone] Encounter Details Date Type Department Care Team (Latest Contact Info) Description 05/12/2016 - 05/12/2016 11:59 PM EST Hospital Encounter [place] [phone] Celio Sanders MD [address] [place], [place] [address] Pain Discharge Disposition: Home Social History Tobacco [...] 1:30 PM EDT Office Visit Hematology/Oncology at [address] [phone] Bisi Cheng APRN [facility] [place] [address] documented as of this encounter Procedures Procedure Name Priority Date/Time Associated Diagnosis Comments ALLERGY SCAN 01/31/2019 12:[address] SCAN (SCAN) 05/12/2016 12:00 AM EST FILM LIBRARY STORAGE ONLY CT ABDOMEN AND PELVIS Routine 05/12/2016 12:00 AM EST Pain SURGICAL PATHOLOGY SCAN 04/28/2016 12:[address] SCAN (SCAN) 03/30/2016 12:00 AM EST documented in this encounter Results * SCAN DOC: ALLERGY (01/31/2019 12:00 AM EST) Narrative 01/31/2019 12:00 AM EST Ordered by an unspecified provider. Scanning Provider MEDIA MGR SCAN EXT O RDR/RSLT * Film Library- Storage Only CT Abdomen & Pelvis (05/12/2016 12:00 AM EST) Narrative LAINE HATHAWAY - 05/14/2016 9:57 AM EST This exam is for storage only and is auto-finalizing. Celio Sanders MD IM FILM LIBRARY ORD ERABLES [facility] [place] * SCAN DOC: CT SCAN (05/12/2016 12:00 AM EST) Anatomical Region Laterality Modality SO Narrative 05/12/2016 12:00 AM EST Ordered by an unspecified provider. Scanning Provider MEDIA MGR SCAN EXT O RDR/RSLT * SCAN DOC: SURGICAL PATHOLOGY (04/28/2016 12:00 AM EST) Narrative 04/28/2016 12:00 AM EST Ordered by an unspecified provider. Scanning Provider MEDIA MGR SCAN EXT O RDR/RSLT * SCAN DOC: CT SCAN (03/30/2016 12:00 AM EST) Anatomical Region Laterality Modality SO Narrative 03/30/2016 12:00 AM EST Ordered by an unspecified provider. Scanning Provider MEDIA MGR SCAN EXT O RDR/RSLT documented in this encounter Visit Diagnoses Diagnosis Pain Generalized pain documented in this encounter Care Teams Garde Manger Relationship Specialty Start Date End Date Angelica Mak MD [address] [place] [address] PCP - General 01/27/10 05/18/16 documented as of this encounter
--- OUTSIDE RECORDS SUMMARY | 2023-10-12 02:46 | XMS_ITS | Encounter Summary ---
Author Organization [facility] [place] [address] Care Team Providers Care Brusher Machine Name Role Phone Angelica Mak MD Primary Care Provider [phone] Encounter Details Date Type Department Care Team (Late st Contact Info) Description 01/25/2011 1:00 PM EST Office Visit Infectious Disease at [facility] [place] [phone] Jose Adams RN Foreign travel (Primary Dx) Discharge Disposition: Home Social History Tobacco Use Types Packs/Day Years Used Date Smoking Tobacco: Never Assessed Sex and Gender Information Value Date Recorded Sex Assigned at Not on file Gender Identity Not on file Sexual Orientation Not on file documented as of this encounter Progress Notes * Garret London MD - 01/26/2011 2:37 PM EST I agree with the recommendations of Jose Adams after review of her note. * Jose Adams RN - 01/25/2011 2:01 PM EST Adult Travel Clinic Reason for Visit: Nain Mckeon is a 60 y.o. old patient who comes to travel clinic today for pre-travel evaluation, vaccination and traveler's health education. Trip Details: Destination countries (list from first to last):[facility], [facility], [facility]; [facility], [facility] Departure date: 04/28/11 Length of trip: 05/14/2011 [...] of malaria, dengue and other insect borne illnesses. Handout given. 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 Patient advised to call travel clinic if [...] exposure occurs 2. 3. 1. 2. 3. Icelandic Encephalitis 1. 2. 3. 1. 2. 3. 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 documented in this encounter Plan of Treatment Upcoming Encounters Date Type Department Care Team (Late st Contact Info) Description 10/24/2023 1:30 PM EDT Office Visit Hematology/Oncology at [address] [phone] Bisi Cheng APRN [facility] [place] [address] documented as of this encounter Visit Diagnoses Diagnosis Foreign travel- Primary Other specified conditions influencing health status documented in this encounter Care Teams Brusher Machine Relationship Specialty Start Date End Date Angelica Mak MD [address] [place] [address] PCP - General 01/27/10 05/18/16 documented as of this encounter
--- OUTSIDE RECORDS SUMMARY | 2023-10-12 02:46 | XMS_ITS | Encounter Summary ---
Author Organization [facility] [place] [address] Care Team Providers Care Hat Measurer Name Role Phone Celio Sanders MD Primary Care Provider [phone] Reason for Visit * Consultation (Routine) - Closed Specialty Diagnoses / Procedures Referred By Tess de la rosa Referred To Contact Radiation Oncology Diagnoses Prostate CA Procedures Treatment Options Elias Curran MD [address] [place] [address] Ronnie Vazquez MD [address] [place] [address] [place] [address] Referral ID Status Reason Start Date Expiration Date Visits Re quested Visits Authorized [id number] Closed 05/14/2016 05/14/2017 1 1 Encounter Details Date Type Department Care Team (Late st Contact Info) Description 05/19/2016 1:30 PM EDT Office Visit Radiation Oncology at [address] [phone] Ronnie Vazquez MD [address] [place] [address] [place] [address] Cancer of prostate with high [...] 36.5 ??C (97.7 ??F) 05/19/2016 1:00 PM ED T Respiratory Rate 16 05/19/2016 1:00 PM EDT Oxygen Saturation 97% 05/19/2016 1:00 PM EDT Inhaled Oxygen Concentration - - Weight 81.7 kg (180 lb 3.2 oz) 05/19/2016 1:00 P M EDT Height - - Body Mass Index - - documented in this encounter Patient Instructions * Patient Instructions* Ronnie Vazquez MD - 05/19/2016 9:00 AM [...] at least high risk prostate cancer, which is a risk given to your cancer of coming back after treatment. This is based on three things: your PSA was greater than 20 (the blood test), Andre score (how aggressive the prostate cancer looked under the microscope) which was greater than 7, and how aggressive your prostate cancer felt when Dr. Curran did the prostate exam (through the rectum). You [...] length of life. You have an appointment to meet with Dr. Pham, one of the prostate cancer surgeons, on 05/27/16 to discuss the surgical option and you are here today to discuss the radiation option, which is listed below. 2. Hormone therapy: For high risk prostate cancers such as yours, I recommend a course of anti-testosterone therapy for 32 months (typically starting 2 months before radiation, contiuing for 2 monthsduring radiation and ongoing after radiation is completed). [...] also a very low risk of heart attack among men who have recently had a heart attack. These side effects usually reverse within 3-6 months of stopping the hormone therapy when testosterone recovers, although it can take up toa full year. 3. Fiducial Markers: The first [...] ask you to undergo the MRI at [facility] and a CT simulation scan here [facility], typically 1-2 weeks after the placement [...] a prostate MRI which we do at [facility], that allows us to better [...] within 4-6 weeks of completion radiation. 6. Call Center Director Complications: These are more worrisome and are [...] for urination). There may be a slow, detention decrease in your sexual function as well, [...] do not hesitate to call me at [phone] with any other questions or concerns you have. IfI am not here, one of our radiation oncology nurses can assist you or help you get in touch with me. A Radiation Oncology doctor is also cosmetic sales consultant after our normal hours and on weekends for urgent questions or concerns related to radiation treatments that can not wait until normal business hours. To reach the on-call doctor after-hours, just call and have the owner operator page the Radiation Oncologist cosmetic sales consultant. And, as always, if you experience any life-threatening emergencies which any include the following,you need to seek emergency care immediately by calling 911: 1. Sudden and unexpected breathing difficulty without any exertion 2. Sudden onset of chest pain 3. Sudden onset of severe pain or uncontrolled pain 4. Sudden onset of severe weakness and/or unable to walk 5. Sudden new onset of a seizure 6. Fall resulting in injury 7. Uncontrollable bleeding Ronnie Trevizo MD Upholstered Goods Craftermarine designer Radiation Oncology [facility] documented in this encounter Progress Notes * Alta Muse RN - 05/19/2016 1:30 PM [...] na (Yes/No) Is patient coming from a Snf Facility? (Yes/No) no (If yes, patient needs to be accompanied by a caregiver for entire Exam and transport arrangements.) LEARNING ASSESSMENT REVIEWED: yes ADVANCED DIRECTIVE: PAIN ASSESSMENT: [0] out of 10 *eD-H Adult PCS Flow Sheet if 4 or above SOCIAL ASSESSMENT: See EDH social assessment information entered. Support Systems: live with Yaneth Barriers to treatment: none Referrals/Interventions: dairy farm worker on day per routine. RADIATION SPECIFIC TEACHING:Will provide the following information on simulation day [facility]iation Therapy and You Site specific teaching :pelvis PLAN: Per Dr Vazquez's note * Ronnie Vazquez MD - 05/19/2016 9:00 AM EDT Images from the original note were not included. Radiation Oncology Consult [place] [address] Reason for Consultation: at least Group IIB, high risk (PSA 47.5, Gl 4+4, cT2b) vs. Group IV (N1) prostate cancer Referring Physician / Service: Dr. Curran HPI: Nain Srinivasan is a 65-year-old man noted to have an elevated PSA and abnormal digital rectal exam in the setting of hematuria (x3 episodes) that prompted referral to urology. Prior to biopsy, given theelevated PSA, he underwent bone scan 03/30/2016 that was negative for metastatic disease. PSA was not rechecked, per the patient. On 04/27/2016 Dr. Curran performed ultrasound-guided prostate biopsy that showed Andre 4+4 disease in 2 cores and Maywood 4+3 disease in 3 additional cores. All [...] the role of radiotherapy in his recent diagnosis of at least high risk, possibly metastatic prostate cancer. He has an appointment to be with Dr. Pham 05/27/2016. ROS: On further review he reports some fatigue increased urinary frequency with nocturia. LINA = 20 3 IPSS = 21 incomplete emptying weak stream and straining with nocturia once nightly. Urinary lwckvro-do-stus = 3. A comprehensive 14 point review of systems was conducted with this patient and is otherwise negative except as documented above. Past Medical History: Diagnosis Date ??? Anxiety ??? Finger fracture multiple from basket ball injuries ??? Hyperlipidemia ??? Prostate cancer The patient was specifically asked and denies a history of prior radiotherapy to this region, systemic sclerodema, or active systemic lupus. Past Surgical History: Procedure Laterality Date ??? APPENDECTOMY burst ??? CHOLECYSTECTOMY, LAPAROSCOPIC ??? PROSTATE BIOPSY Medications 05/19/16 2604 Medication Sig Taking? 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 Estimated travel time by the patient to [facility] is 20 minutes, one-way. Smoking: never Alcohol: [...] sitting in exam room with and family friend (a physician) at side Rectal: Deferred Performance Status: [...] 05/12/16) Other prognostic factors: +PNI Reviewed at [facility]: Y Imaging Review: I have personally reviewed the images from the CT of the abdomen and pelvis dated 05/12/2016 findings as per HPI of enlarged prostate with suspicious appearing right internal iliac node. Residential Electrician image is shown below for reference. Assessment: Nain Mckeon is a 65-year-old man with at least high risk prostate cancer (Maywood 8, PSA 47.5, clinical T2b). He has severe lower urinary tract obstructive symptoms and a questionable enlarged internal iliac lymph node. Plan: I discussed the staging and treatment of locally advanced prostate cancer with Mr. Mckeon andhis family today in the clinic. He understands that he has at least high risk disease and that the radiation therapy implications of high risk disease involve prostate and pelvic radiation therapy with 3 years of androgen deprivation therapy. Given the above appearance and location of the lymph node, I would presume it to involve metastatic disease and include this in the radiation portals with asimultaneous integrated boost to the lymph node of concern, without need for biopsy. I discussed with Mr. Mckeon and his that, to my knowledge, lymph node spread is a relative contraindication to prostatectomy, but that this will certainly be addressed when he meets Dr. Pham next week. Dr. Curran has also asked Dr. Pham to consider lymph node biopsy in addition to prostatectomy. I will defer on the decision to proceed with these interventions to Dr. Pham. Two other questions I will ask of him, though are 1) whether the patient would be a candidate for TURP should definitive ADT + radiation be elected and 2) whether cystoscopy is indicated given the hematuria that prompted initial urology evaluation. As Mr. Mckeon seems inclined towards surgery, informed consent for radiotherapy was not obtained atthis time. Instead, we will await results of Mr. Mckeon's consultation with Dr. Pham and proceed accordingly. I plan to touch base with Mr. Mckeon in the few days following his visit with Dr. Pham.All of this patient's questions were answered to his fullest satisfaction, and we have provided himwith our contact information should any further questions or concerns arise. I entered the patient's exam room at 2:25pm and exited at 3:35pm. More than 50% of this visit was spent counseling the patient [id number] in reviewing the workup of his diagnosis, treatment options, toxicities and complications as outlined in my assessment and plan. So, in summary: 1. Intent of therapy: Curative 2. Recheck PSA 3. Await results of Dr. Pham consultation documented in this encounter Plan of Treatment Upcoming Encounters Date Type Department Care Team (Late st Contact Info) Description 10/24/2023 1:30 PM EDT Office Visit Hematology/Oncology at [address] [phone] Bisi Cheng APRN [facility] [address] documented as of this encounter Visit Diagnoses Diagnosis Cancer of prostate with high recurrence risk (stage T3a or Maywood 8-10 or PSA > 20) Malignant neoplasm of prostate documented in this encounter Care Teams Hat Measurer Relationship Specialty Start Date End Date Celio Sanders MD [address] [place] [address] PCP - General Internal Medicine 05/19/16 documented as of this encounter
--- OUTSIDE RECORDS SUMMARY | 2023-10-12 02:46 | XMS_ITS | Encounter Summary ---
Author Organization [facility] Address [facility] [place] [address] Care Team Providers Care Sales Professional Bilingual Name Role Phone Angelica Mak MD Primary Care Provider [phone] Encounter Details Date Type Department Care Team (Latest Contact Info) Description 03/30/2016 - 03/30/2016 11:59 PM EST Hospital Encounter [place] [phone] Celio Sanders MD [address] [place] [address] Pain Discharge Disposition: Home Social History Tobacco [...] PM EDT Office Visit Hematology/Oncology at [address] [phone] Bisi Cheng APRN [facility] [place] [address] documented as of this encounter Procedures Procedure Name Priority Date/Time Associated Diagnosis Comments FILM LIBRARY STORAGE ONLY NUCLEAR MEDICINE Routine 03/30/2016 12:00 AM EST Pain documented in this encounter Results * Film Library- Storage Only nuclear medicine (03/30/2016 12:00 AM EST) Narrative [facility] - 05/14/2016 9:52 AM EST This exam is for storage only and is auto-finalizing. Celio Sanders MD IMG FILM LIBRARY ORD ERABLES [place], [place] documented in this encounter Visit Diagnoses Diagnosis Pain Generalized pain documented in this encounter Care Teams Sales Professional Bilingual Relationship Specialty Start Date End Date Angelica Mak MD [address] [place] [address] PCP - General 01/27/10 05/18/16 documented as of this encounter
[2023-10-12 10:39] LABS: Abs Immature Grans 0.02 10^3/uL (0.0-0.06); Absolute Basophil Count 0.03 10^3/uL (0.0-0.2); Absolute Eosinophil Count 0.26 10^3/uL (0.0-0.7); Absolute Lymphocyte Count 2.15 10^3/uL (1.2-3.4); Absolute Neutrophil Count 3.89 10^3/uL (1.2-6.7); Basophils % 0.4 %; Eosinophils % 3.7 %; HCT 37.9 % (40.0-50.0); HGB 12.5 g/dL (13.5-17.5); Immature Grans % 0.3 %; Lymphocytes % 30.9 %; MCH 31.4 pg (27.0-33.0); MCV 95 fL (80-95); MPV 8.6 fL (8.0-11.0); Monocytes % 8.6 %; Neutrophils % 56.1 %; Platelet Count 284 10^3/uL (130-400); RBC 3.98 10^6/uL (4.36-5.78); RDW-SD 45.7 fL; WBC 6.95 10^3/uL (4.4-10.8)
[2023-10-12 12:05] LABS: ALT 38 U/L (16-63); AST 22 U/L (15-37); Albumin 3.9 g/dL (3.4-5.0); Alkaline Phosphatase 97 U/L (46-116); Anion Gap 8.3 mmol/L (3-11); BUN 24 mg/dL (7-18); Bilirubin, Total 0.36 mg/dL (0.2-1.0); CO2 29.7 mmol/L (21.0-32.0); CREATININE 1.1 mg/dL (0.70-1.30); Calcium 9.1 mg/dL (8.5-10.1); Chloride 104 mmol/L (98-107); Estimated GFR 70.01 (mL/min/1.73m2); Glucose 113 mg/dL (74-106); Potassium 3.9 mmol/L (3.5-5.1); Sodium 142 mmol/L (136-145); Total Protein 7.9 g/dL (6.4-8.2)
[2023-10-15 11:10] LABS: PSA, Ultrasensitive <0.01 ng/mL (<= 6.5)
[2023-10-18 16:04] LABS: Testosterone, Total 7.2 ng/dL (240-950)
== END 2023-10-12 02:27 | disposition home or self-care (01) ==
LOC: LBO 02:39
PROVIDERS: PCP Family Medicine; Visit Provider Internal Medicine
DX: C61 Malignant neoplasm of prostate (principal)
CPT/HCPCS: 36415; 80053; 84153; 84403; 85025

== ENCOUNTER → 2023-11-09 08:44 | Outpatient (BNVA) | payer MEDICARE, OTHER, SELFPAY | PROVIDERS: PCP Family Medicine; Referring Provider Family Medicine; Visit Provider Nurse Practitioner Gerontology | DX: R39.12 Poor urinary stream (principal); C61 Malignant neoplasm of prostate; R35.1 Nocturia; N40.1 Benign prostatic hyperplasia with lower urinary tract symptoms | CPT/HCPCS: 51798; 81003; 99214 ==

== ENCOUNTER → 2023-11-16 14:27 | Outpatient (BNVA) | payer MEDICARE, OTHER, SELFPAY | PROVIDERS: PCP Family Medicine; Referring Provider Family Medicine; Visit Provider Nurse Practitioner Gerontology | DX: C61 Malignant neoplasm of prostate (principal); K59.00 Constipation, unspecified; R35.1 Nocturia | CPT/HCPCS: 99442 ==

== ENCOUNTER 2023-11-19 08:58 | Emergency (ER) | payer MEDICARE, OTHER, SELFPAY ==
[2023-11-19 09:07] VITALS: BP 195/94; PULSE 93; RESP 17; TEMP 36.5; O2SAT 97
[2023-11-19 09:12] VITALS: BP 195/94; PULSE 93; RESP 17; TEMP 36.5; O2SAT 97
--- OUTSIDE RECORDS SUMMARY | 2023-11-19 09:21 | XMS_ITS ---
Author Organization [facility] Address [address] [place] [phone] Care Team Providers Care Hot Metal Mixer Operator Helper Name Role Phone Shakila Hicks Primary Care Provider REASON FOR VISIT Cymbalta script refill Medications Medication SIG (Take, Route, Frequency, Duration) Notes Start Date End Date Status DULoxetine HCl 20 MG 1 capsule Orally Once a day for 30 days decrease in dose 11/09/2023 Active Encounters Encounter Location Date Provider Diagnosis [address] [phone] 11/09/2023 Shakila Hicks Bipolar 2 disorder F31.81 Assessments Encounter Date Diagnosis (ICD Code) Assessment Notes Treatment Notes Treatment Clinical Notes 11/09/2023 Bipolar 2 disorder (ICD-10 - F31.81) recent manic episode Plan Of Treatment Medication Medication Name Sig Start Date Stop Date Notes DULoxetine HCl 30 MG 1 capsule Orally On ce a day DULoxetine HCl 20 MG 1 capsule Orally On ce a day for 30 days 11/09/2023 decrease in dose Next Appt Details Provider Name:Shakila landa, 12/07/2023 11:30:00 AM, [address] [place] [address], [phone], Progress Notes * Nain LIPSCOMBDOB:1950 (73 yo M)Acc No.[id number]:11/09/2023 Patient:?KIMCipriano MOSESgrant Rosenberg :1950???Age:73 Y???Sex:Male Address:[address] [place] [phone] * Refills? Stop DULoxetine HCl Capsule Delayed Release Particles, 30 MG, Orally, 1 capsule, Once a day Start DULoxetine HCl Capsule Delayed Release Particles, 20 MG, Orally, 30, 1 capsule, Once a day, 30 days, Refills=3 * true * Date:? Generated for Arturo macedo/Lev/Careyitting on:?11/19/2023 09:21 AM EDT
--- OUTSIDE RECORDS SUMMARY | 2023-11-19 09:21 | XMS_ITS ---
Author Organization [facility] Address [address] [place] [phone] Care Team Providers Care Service And Repair Supervisor Name Role Phone Shakila Hicks Primary Care Provider REASON FOR VISIT 11/07 N/S call to r/s Encounters Encounter Location Date Provider Diagnosis [address] [phone] 11/08/2023 Shakila Hicks Plan Of Treatment Next Appt Details Provider Name:Shakila landa, 12/07/2023 11:30:00 AM, [address] [place], [place], [phone], Progress Notes * Nain MCKEONDOB:1950 (73 yo M)Acc No.[id number]:11/08/2023 Patient:?Nain MCKEON :1950???Age:73 Y???Sex:Male Address:[address] [place] [phone] * true * Date:? Generated for Printi ng/Faxing/eTransmitting on:?11/19/2023 09:21 AM EDT
--- OUTSIDE RECORDS SUMMARY | 2023-11-19 09:21 | XMS_ITS ---
Author Organization [facility] Address [address] [place] [id number] Care Team Providers Care Celery Stripper Name Role Phone Shakila Hicks Primary Care Provider REASON FOR VISIT mood and med follow up Medications Medication SIG (Take, Route, Frequency, Duration) Notes Start Date End Date Status lamoTRIgine 150 MG 1 tablet Orally twic e a day for 30 days 08/04/2023 Active KlonoPIN 0.5 MG 1/2 tablet Orally at bedtime for 30 days take for anxiety 08/09/2023 Active Ibuprofen 200 MG 1 tablet with food o r milk as needed Orally Three times a day Active DULoxetine HCl 30 MG 1 capsule Orally Once a day for 30 days take for depression Active Vitamin E 400 UNIT 1 capsule Orally Onc e a day for 30 day(s) Unknown Vitamin B Complex 100 Unknown Turmeric 450 MG 2 capsules Orally On ce a day Active PRAVASTATIN 40 40 MG 1 tablet Orally Onc e a day for 90 day(s) Active Multivitamin - 1 tablet Orally Once a day for 30 day(s) Active VITAMIN D Unknown Levothyroxine Sodium 75 MCG 1 tablet in the morning on an empty stomach Orally Once a day for 30 day(s) Active Encounters Encounter Location Date Provider Diagnosis [address] [id number] 11/08/2023 Shakila Hicks Bipolar 2 disorder F31.81 Assessments Encounter Date Diagnosis (ICD Code) Assessment Notes Treatment Notes Treatment Clinical Notes 11/08/2023 Bipolar 2 disorder (ICD-10 - F31.81) recent manic episode 11/08/2023 Other Documentation assistance provided by micah Pacheco for Shakila Hicks 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 I have read the medical record and scribe entries. I approve the care and treatment provided to this patient as recorded by the scribe. continue on duloxetine 30mg in am but may want to decrease to 20mg due to TD continue on Lamictal to 150 mg,a day Consider increasing the dose if depression persists . 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 I have read the medical record and scribe entries. I approve the care and treatment provided to this patient as recorded by the scribe. Next Appt Details Follow Up: 4 Weeks, Reason: med f/u Provider Name:Shakila landa, 12/07/2023 11:30:00 AM, [address] [place] [address], [phone], Progress Notes * Nain LIPSCOMBDOB:1950 (73 yo M)Acc No.[id number]:11/08/2023 PMM Phone Patient:?Nain LIPSCOMB Provider:?Shakila Hicks PMHNP-BC :1950???Age:73 Y???Sex:Male Greg e:11/08/2023 Address:[address] [place], [place] [id number] Subjective: * Chief Complaints: * ???Mood and med follow up * HPI: ???INTERIM HISTORY::? Verbal consent was received by patient to proceed with this billable telemedicine visit. Televisit Consent (reviewed with pt): This is a telemedicine visit. The visit will be billed to your insurance carrier. You may be responsible for any co-pay or coinsurance as required by your insurance carrier. Risks of telemedicine include poor reception centre manager limiting medical decision making by your provider, delays in treatment from equipment failure, and inability to complete a full evaluation (which may require an office visit). Benefits include the ability to receive care outside of our medical office. Do you consent to these terms as I have read to you? Pt agreed. ???INTERIM HISTORY:?*?Pt is a 73 y/o male who has a Hx of Bipolar II disorder is seen for med f/u via telephone. ?Client is very active and isdoing well. ?Taking Cymbalta 30 mg once daily, but will like to decrease to 20 mg. He has a scheduled appointment with his urology tomorrow.He started doing swimming 2 weeksago. He does swim twice a week. 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 ?He continues to attend individual and coupletherapy sessions with Roxana every other week and finds it to be a good fit. ?CL is not regularly in touch withhis oldest son but maintains contact with his youngest son through texting. ?Denies any sleeping issues. His sleeppattern remains stable.Denies any depression lately. Heis currently taking lamotrigine 150 mg once a day. Denies any rash. ?He mentions that he has recentlab work up which showed PSA was normal. ?..?Was hospitalized ?[facility] in 2004 for depression. ?Brayan at [facility] 2016 ?Depression at [facility] [place] 2019.? Therapy: Individual and couples counseling with Roxana, working on EMDR with Roxana Suicide Attempts: Purchased a gun in 2019 and planned to shoot himself. Did not follow through with this plan and was admitted to [facility]. Violence History: Patient can be verbally [...] Remeron, Tricyclics, Olanzapine, Abilify, Vraylar, Rexulti, Geodon, [place], Risperidone, Lamictal, Clonazepam Substance use history: Denies [...] with 1 dogs in his house in [place], [place]. , Evita visits him during the day Employment: retired. Psychiatric ROS Sleep: Improved Energy: Improving slowly Mood: Feeling better.? Appetite: okay Weight: no concerns Concentration/Focus: improvement in attention, able to read, focus is good Memory: good Anxiety/panic: none reported Agitation:none reported today, but can be very irritable when manic Stressors: Relationship stressors, Recurrent prostate cancer Behavior/Self-injurious behavior: no history of cutting. Activity level:walking his dog; is playing pickleball, and swam 2-3 times a week. 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 Brayan: no evidence of brayan or hypomania today Psychosis: Denies AH and VH Constitutional and neurological exam: Had developed tardive dyskinesia from past meds. No report of concussions or head injury. No history of seizures Gait and station: No concerns Abnormal movements: None reported Tics: none reported. * Medical History:? * Surgical History:?Radical Pr ostatectomy * Hospitalization/Major Diagno stic Procedure:?Depression- [facility] 2004Mania- [facility] 2016Depression- [place] 2019 * Family History:?Mother: dece ased 80 yrs, Vascular Disease, Depression, Colon Cancer.?Father: 83 yrs, Alzheimer's, Anxiety, Prostate Cancer.?Sister: alive, No Contact.?Maternal Grandfather: , Suicide, Tongue Cancer, diagnosed with Other malignant neoplasm of unspecified site, Unspecified nonpsychotic mental disorder following organic brain damage.?Maternal Grandmother: .?Paternal Grandfather: .?Paternal Grandmother: , Metntal [...] ?WHO WAS YOUR PREVIOUS HEALTH CARE PROVIDER?: [facility]. ?WHO ARE YOUR SPECIALITY PHYSICIANS?: Dr Ralph, DDS, C Kurt Psychiatrist, Dr. Barillas Oncologist, Roxana Hernandez, Psycologist, Bhavana Samuel. * Medications:?TakingDULoxetin e HCl 30 MG Capsule Delayed Release Particles 1 capsule Orally Once a day take for depressionIbuprofen 200 MG Tablet 1 tablet with [...] Particles 1 capsule Orally Once a day take for depressionTaking Ibuprofen 200 MG Tablet 1 tablet [...] Veri fied] Objective: * Vitals:? * Examination: ???General Examination: ?GENERAL APPEARANCE:?Exam limited due to telemedicine visit.,Exam limited due to telemedicine visit..?Treatment Plans: ?APPEARANCE:?72 y/o white, Japanese-speaking male,nails hair dressed in polo? shirt and shorts with good grooming.?ATTITUDE:?cooperative.?PSYCHOMOTOR ACTIVITY:?within normal range.?ABNORMAL BODY MOVEMENTS:?none.?ATTENTION:?improved.?DEGREE OF AWARENESS OF SURROUNDINGS:?within normal limits.?ORIENTATION:?Person, Place, Time.?AFFECT:?appropriate.?MOOD:?Euthymic.?SPEECH:?normal/R/V/R.?INSIGHT:?good.?JUDGEMENT:?good.?THOUGHT PROCESS:?Intact, organized and goal orientated.?THOUGHT CONTENT:?unremarkable.?PERCEPTUAL DISORDERS:?no perceptual disorder noted.?AGGRESSION:?low.?ANGER CONTROL:?low.?CURRENT SUICIDALITY:?Denies SI., Plan, Intent.?CURRENT HOMICIDALITY:?none.?INTELLIGENCE (estimate):?above average.?IMPULSE CONTROL:?good up to this point.?EYE CONTACT ?Normal.?MOTOR ACTIVITY?normal.?MEMORY IMPAIRMENT?None.?HALLUCINATIONS?denies , Auditory , Visual.?OTHER?None.?DELUSIONS?None.?BEHAVIOR ?Cooperative and polite.?Time spent with patient: I spent 15minutes with patient, 50% of which was face to face counseling or coordinating care for anxiety and depression, and brayan. I discussed treatment options including risk/benefit. Assessment: * Assessment: 1.?Bipolar 2 disorder - F31. 81 (Primary)???Notes :recent manic episode??? The cl overall is reporting a stable mood. Feels the increase in duloxetine has helped with his depression, but would like to consider decreasing the dose to 20mg depending on the news from the urology.Is anxious about the appointmnet due to past hx of prostate cancer.Is no longer on Lupron . No evidence of brayan or hypomania today. Continues in individual and couple counseling with Roxana Phelps.. 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 continue on duloxetine? 30mg in am but may want to decrease to 20mg due to TD continue on Lamictal to 150 mg,a day Consider increasing the dose if depression persists . Monitor for rash and stop if rash occurs Can continue utilizing Klonopin 0.5 mg, quarter tablet as needed Continue individual and couples counseling with Roxana,? encouraged him to continue walking his dog daily , continue paying pickle ball couple times a week, consider returning to swimming during the week Recommended to use photo therapy (light box) daily for 20 minutes from November-June for seasonal depression . * Follow Up:?4 Weeks (Reason: med f/u) * * Sign off status: Completed true * Provider:?NEFTALI Martínez D ate:?11/08/2023 Generated for Arturo macedo/Lev/eTgonzalessmitting on:?11/19/2023 09:21 AM EDT History and Physical Notes * HPI (History of Present Illness) Category Sub-Category Detail Notes INTERIM HISTORY * Pt is a 73 y/o male who has a Hx of Bipolar II disorder is seen for med f/u via telephone. Client is very active and is doing well. Taking Cymbalta 30 mg once daily, but will like to decrease to 20 mg. He has a scheduled appointment with his urology tomorrow. He started doing swimming 2 weeks ago. He does swim twice a week. He continues to walk the dog and playing pickleball when weather permits. 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 He continues to attend individual and couple therapy sessions with Roxana every other week and finds it to be a good fit. CL is not regularly in touch with his oldest son but maintains contact with his youngest son through texting. Denies any sleeping issues. His sleep pattern remains stable. Denies any depression lately. He is currently taking lamotrigine 150 mg once a day. Denies any rash. He mentions that he has recent lab work up which showed PSA was normal. . Was hospitalized [facility] in 2003 for dep ression. Brayan at [facility] Examination Category Sub-Category Detail Notes General Examination GENERAL APPEARANCE: Exam montalvo ited due to telemedicine visit. , Exam limited due to telemedicine visit. Treatment Plans APPEARANCE: 72 y/o white, En [...]
--- OUTSIDE RECORDS SUMMARY | 2023-11-19 09:22 | XMS_ITS | Encounter Summary ---
Author Organization [facility] Address [address] [place] [id number] Care Team Providers Care Electric Needle Specialist Name Role Phone Celio Sanders MD Primary Care Provider [phone] Encounter Details Date Type Department Care Team (Late st Contact Info) Description 07/31/2020 Lab Requisition [facility] Pathology & Laboratory Medicine - [facility] [address] [place], [place] [address] Outr Resulting Lab, Provider Social History Tobacco [...] 2.8 - 5.3 pg/mL 07/31/2020 16:53 EDT [facility] Blood VENOUS BLOOD / Unknown 07/31/2020 8:19 EDT 07/31/2020 16:19 EDT Provider Outr Resulting Lab CHEMISTRY & BLOOD GAS ORDERABLES [facility] [address] [place] [address] documented in this encounter Visit Diagnoses Not on filedocumented in this encounter Care Teams Electric Needle Specialist Relationship Specialty Start Date End Date Celio Sanders MD [address] [place] [address] PCP - General 04/30/16 documented as of this encounter
--- OUTSIDE RECORDS SUMMARY | 2023-11-19 09:22 | XMS_ITS | Referral Summary ---
Author Organization [facility] Address [address] [place] [address] Care Team Providers Care Outbound Sales Specialist Name Role Phone Celio Sanders MD Primary Care Provider [phone] Social History Tobacco Use Types Packs/Day Years Used Date Smoking Tobacco: Never Assessed Interpersonal Safety Answer Date Record ed Physically Hurt Never 11/25/2019 Verbally Threaten Not on file 11/25/2019 Sex and Gender Information Value Date Recorded Sex Assigned at Not on file Gender Identity Not on file Sexual Orientation Not on file Plan of Treatment Not on file Care Teams Outbound Sales Specialist Relationship Specialty Start Date End Date Celio Sanders MD [address] [place] [address] [facility] - General 04/30/16
--- OUTSIDE RECORDS SUMMARY | 2023-11-19 09:22 | XMS_ITS | Encounter Summary ---
Author Organization [facility] Address [address] [place] [address] Care Team Providers Care Metal Bonding Crib Attendant Name Role Phone Celio Sanders MD Primary Care Provider [phone] Encounter Details Date Type Department Care Team (Late st Contact Info) Description 10/13/2020 Lab Requisition [facility] Pathology & Laboratory Medicine - [facility] [address] [place], [place] [id number] Outr Resulting Lab, Provider Social History Tobacco [...] 2.8 - 5.3 pg/mL 10/13/2020 16:07 EDT [facility] Blood VENOUS BLOOD / Unknown 10/13/2020 11:00 EDT 10/13/2020 15:36 EDT Provider Outr Resulting Lab CHEMISTRY & BLOOD GAS ORDERABLES [facility] [address] [place] [address] documented in this encounter Visit Diagnoses Not on filedocumented in this encounter Care Teams Metal Bonding Crib Attendant Relationship Specialty Start Date End Date Celio Sanders MD [address] [place], [place] [id number] PCP - General 04/30/16 documented as of this encounter
--- OUTSIDE RECORDS SUMMARY | 2023-11-19 09:22 | XMS_ITS | Encounter Summary ---
Author Organization [facility] Address [address] [place] [address] Care Team Providers Care Head Of Partner Development Name Role Phone Celio Sanders MD Primary Care Provider [phone] Encounter Details Date Type Department Care Team (Late st Contact Info) Description 01/31/2019 Lab Requisition [facility] Pathology & Laboratory Medicine - [facility] [address] [place] [address] Unknown, Provider, Social History Tobacco Use Types [...] 0.0 - 6.5 ng/mL 02/02/2019 8:39 EST [facility] Comment: NOTE: Serum PSA concentration should not be interpreted as absolute evidence for the presence or absence of malignant disease. Assayed on Siemens ADVIA Centaur XPT using chemiluminescent technology. ??Values obtained by using different assay methods cannot be used interchangeably. Blood VENOUS BLOOD / Unknown 01/31/2019 11:20 EST 01/31/2019 16:09 EST Provider Unknown CHEMISTRY & BLOOD GA S ORDERABLES [facility] [address] [place] [address] documented in this encounter Visit Diagnoses Not on filedocumented in this encounter Care Teams Head Of Partner Development Relationship Specialty Start Date End Date Celio Sanders MD [address] [place], [place] [id number] PCP - General 04/30/16 documented as of this encounter
--- OUTSIDE RECORDS SUMMARY | 2023-11-19 09:22 | XMS_ITS | Encounter Summary ---
Author Organization [facility] Address [address] [place] [address] Care Team Providers Care Manager Cardiovascular Name Role Phone Celio Sanders MD Primary Care Provider [phone] Encounter Details Date Type Department Care Team (Late st Contact Info) Description 11/21/2019 Lab Requisition [facility] Pathology & Laboratory Medicine - [facility] [address] [place] [address] David Fairchild MD [address] [place], [place] [id number] Contact with and (suspected) exposure to other [...] - GENER AL ORDERABLES Performing Organization Address [facility] Co de Phone Number [facility] [address] [place] [address] * COVID-19 TESTING (11/21/2019 14:30 EDT) COVID-19 rt-PCR Result Negative Negative 11/22/2019 1:14 EDT [facility] Comment: This test has [...] history, and epidemiological information. Performed on the Wallstr Fusion instrument Performing Lab [place] [facility] Lab 11/22/2019 1:14 EDT [facility] Swab ENTIRE NASOPHARYNX / Unknown Swab / Unknown 11/21/2019 14:30 EDT 11/21/2019 20:52 EDT David Fairchild MD MICROBIOLOGY - GENER AL ORDERABLES Performing Organization Address [facility] Co de Phone Number [facility] [address] [place] [address] documented in this encounter Visit Diagnoses Diagnosis Contact with and (suspected) exposure to other viral communicable diseases documented in this encounter Care Teams Manager Cardiovascular Relationship Specialty Start Date End Date Celio Sanders MD [address] [place] [address] PCP - General 04/30/16 documented as of this encounter
--- OUTSIDE RECORDS SUMMARY | 2023-11-19 09:22 | XMS_ITS | Clinical Summary ---
Author Organization [facility] Address [address] [place] [address] Care Team Providers Care Web Press Operator Apprentice Name Role Phone Celio Sanders MD Primary Care Provider [phone] Social History Tobacco Use Types Packs/Day Years [...] COVID-19 Vaccine (2022- season) 2022 Care Teams Web Press Operator Apprentice Relationship Specialty Start Date End Date Celio Sanders MD [address] [place] [address] PCP - General 04/30/16
--- OUTSIDE RECORDS SUMMARY | 2023-11-19 09:22 | XMS_ITS | Patient Health Record ---
Author Organization [facility], Formerly [facility] Address [address] [place] [id number] Care Team Providers Care Mechanical Press Operator Name Role Phone Shakila Hicks Primary Care Provider Allergies No Known Allergies Reason For Referral Reason referred to [facility] by Shakila Hicks due to his counselor retiring Diagnosis 1 Bipolar 2 disorder ( F31.81) Diagnosis 2 Bipolar disorder, cu rrent episode manic without psychotic features, moderate (F31.12) Diagnosis 3 Marital problems (Z6 3.0) Referral Organization [facility] Referring Provider First Name Shakila Referring Provider Last Name Kurt Referring Provider Speciality Nurse Prac titioner Referred Provider Specialty Licensed Cli gerald Environmental Health Officer Clinical Notes Indy Simpson 08/04 08:59:54 AM >Spoke with patient added, to waitlist. Prefers early afternoons in [place]. No preference on clinician. Referral Priority Routine Medications Medication SIG (Take, Route, Frequency, Duration) Notes Start Date End Date Status Vitamin B Complex 100 Unknown Turmeric 450 MG 2 capsules Orally Once a day Active PRAVASTATIN 40 40 MG 1 tablet Orally Once a day for 90 day(s) Active Multivitamin - 1 tablet Orally Once a day for 30 day(s) Active Levothyroxine Sodium 75 MCG 1 tablet in the morning on an empty stomach Orally Once a day for 30 day(s) Active lamoTRIgine 150 MG 1 tablet Orally twice a day for 30 days 08/04/2023 Active KlonoPIN 0.5 MG 1/2 tablet Orally at bedtime for 30 days take for anxiety 08/09/2023 Active Ibuprofen 200 MG 1 tablet with food or milk as needed Orally Three times a day Active Vitamin E 400 UNIT 1 capsule Orally Once a day for 30 day(s) Unknown DULoxetine HCl 20 MG 1 capsule Orally Once a day for 30 days decrease in dose 11/09/2023 Active VITAMIN D Unknown Immunizations Vaccine Route Administration Date Status Comme nts Zostavax [facility] 16632 Unknown 09/21/2011 Administered Yellow Fever Unknown 01/25/2011 Administered TDAP Unknown 01/25/2007 Administered Td Unknown 07/26/2017 Administered Prevnar PCV 13 [facility] 13139 Unknown 06/19/2015 Administer ed Pneumococcal Unknown 05/24/2014 Administered Influenza Offsite [facility] Purch ased Vaccine 84972 Unknown 12/02/2020 Administered Hepatitis A Unknown 01/25/2011 Administered COVID-19 Moderna 35916 Unknown 05/02/2020 Administered COVID-19 Moderna 54373 Unknown 05/30/2020 Administered COVID-19 Moderna 78776 Unknown 01/07/2021 Administered COVID-19 Moderna 92880 Unknown 06/23/2021 Administered Social History Tobacco Use: Social History Observation Description Date Details (start date - stop date) Former Smoker NA - NA SMOKING STATUS: Question Answer Notes Are you a: Former smoker Are you a: Former smoker Problems Problem Type SNOMED Code ICD Code Onset Dates Problem Status W/U Status Risk Notes Problem 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 (226642927) 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) Active confirmed Problem Obesity (733877553) Obesity (E66.9) Active confirmed Problem Hypothyroidism (44334092) Hypothyroidism (E03.9) Active confirmed Problem Bipolar affective disorder, currently manic, moderate (555256581) Bipolar disorder, current episode manic without psychotic features, moderate (F31.12) Active confirmed Problem Insomnia (874640174) Insomnia (G47.00) Active confirmed Problem Psoriasis (3195963) Psoriasis (L40.9) Active confirmed Problem Malignant tumor of prostate (828932917) Prostate cancer (C61) Active confirmed Problem Bipolar 2 disorder (39580879) Bipolar 2 disorder (F31.81) Active confirmed recent manic episode Problem Marital problems (90622029) Marital problems (Z63.0) Active confirmed Problem Tardive dyskinesia (152931253) Tardive dyskinesia (G24.01) Active confirmed Problem Hyperlipidaemia (11361330) HLD (hyperlipidemia) (E78.5) Active confirmed Problem Prediabetes (434112573) Prediabetes (R73.03) Active confirmed Vital Signs Heart Rate 91 BPM 12/07/2022 Temperature 97.0 degrees Fahrenheit 12/07/2022 Blood pressure diastolic 80 mmHg 09/22/2023 Oximetry 97 % 12/07/2022 Height 63 in 09/22/2023 Blood pressure systolic 130 mmHg 09/22/2023 Weight 181.3 lbs 12/07/2022 BMI 32.11 kg/m2 12/07/2022 Encounters Encounter Location Date Provider Diagnosis [address] [id number] 12/07/2022 Jhaveri Brodzinski Bipolar 2 disorder F31.[address] [id number] 02/08/2023 Jhaveri Brodzinski Bipolar 2 disorder F31.[address] [id number] 03/22/2023 Jhaveri Brodzinski Bipolar 2 disorder F31.[address] [id number] 03/30/2023 Jhaveri Brodzinski Bipolar 2 disorder F31.[address] [id number] 04/01/2023 Jhaveri Brodzinski Bipolar 2 disorder F31.[address] [id number] 04/05/2023 Jhaveri Brodzinski Bipolar disorder, current episode manic without psychotic features, moderate F31.[address] [id number] 04/11/2023 Jhaveri Brodzinski Bipolar 2 disorder F31.[address] [id number] 04/14/2023 Jhaveri Brodzinski Bipolar 2 disorder F31.[address] [id number] 04/19/2023 Jhaveri Brodzinski Bipolar 2 disorder F31.[address] [id number] 04/25/2023 Jhaveri Brodzinski Bipolar disorder, current episode manic without psychotic features, moderate F31.[address], [place] [id number] 04/26/2023 Jhaveri Brodzinski Bipolar 2 disorder F31.[address], [place] [id number] 05/02/2023 Jhaveri Brodzinski Bipolar 2 disorder F31.[address], [place] [id number] 05/25/2023 Jhaveri Brodzinski Bipolar 2 disorder F31.[address], [place] [id number] 06/07/2023 Jhaveri Brodzinski Bipolar 2 disorder F31.[address], [place] [id number] 06/22/2023 Jhaveri Brodzinski Bipolar 2 disorder F31.[address], [place] [id number] 06/28/2023 Jhaveri Brodzinski Bipolar 2 disorder F31.[address], [place] [id number] 07/05/2023 Jhaveri Brodzinski Bipolar 2 disorder F31.[address], [place] [id number] 07/07/2023 Jhaveri Brodzinski Bipolar 2 disorder F31.[address], [place] [id number] 07/14/2023 Jhaveri Brodzinski Bipolar 2 disorder F31.[address], [place] [id number] 07/21/2023 Jhaveri Brodzinski Bipolar 2 disorder F31.[address], [place] [id number] 08/04/2023 Jhaveri Brodzinski Bipolar 2 disorder F31.[address], [place] [id number] 09/01/2023 Jhaveri Brodzinski Bipolar 2 disorder F31.[address], [place] [id number] 09/22/2023 Jhaveri Brodzinski Bipolar 2 disorder F31.[address], [place] [id number] 11/08/2023 Jhaveri Brodzinski Bipolar 2 disorder F31.81 [address] [facility] [place] [id number] 02/23/2023 Jhaveri Brodzinski [address] [facility], [place] [id number] 03/28/2023 Jhaveri Brodzinski [facility] [address] [place] [address] 03/30/2023 Jhaveri Brodzinski Bipolar 2 disorder F31.81 [facility] [address] [facility], [place] [id number] 03/31/2023 Jhaveri Brodzinski [address] [facility] [id number] 04/01/2023 Jhaveri Brodzinski [address], [place] [id number] 04/01/2023 Jhaveri Brodzinski [address], [place] [id number] 04/02/2023 Jhaveri Brodzinski [address], [place] [id number] 04/04/2023 Jhaveri Brodzinski [address], [place] [id number] 04/04/2023 Jhaveri Brodzinski [address], [place] [id number] 04/06/2023 Jhaveri Brodzinski [address], [place] [id number] 04/13/2023 Jhaveri Brodzinski [facility] [address] [facility] [address] 04/15/2023 Jhaveri Brodzinski [facility] [address] [place] [address] 05/09/2023 Jhaveri Brodzinski [address] [facility], [place] [id number] 06/08/2023 Jhaveri Brodzinski Bipolar 2 disorder F31.81 [facility] [address] [facility], [place] [id number] 06/09/2023 Jhaveri Brodzinski [address], [place] [id number] 06/27/2023 Shakila Hicks Bipolar 2 disorder F31.[address] [id number] 07/04/2023 Shakila Hicks [address] [facility] [address] 07/12/[address], [place] [id number] 08/04/2023 Shakila Hicks [address], [place] [id number] 08/05/2023 Jhaverigrant Hicks [address], [place] [id number] 08/09/2023 Shakila Hicks Bipolar 2 disorder F31.[address], [place] [id number] 11/08/2023 Shakila Hicks [address], [place] [id number] 11/09/2023 Shakila Hicks Bipolar 2 disorder F31.81 Assessments Encounter Date Diagnosis (ICD Code) Assessment Notes Treatment Notes Treatment Clinical Notes 12/07/2022 Bipolar 2 disorder (ICD-10 - F31.81) hypomanic episode 02/08/2023 Bipolar 2 disorder (ICD-10 - F31.81) hypomanic episode 04/05/2023 Bipolar disorder, current episode manic without psychotic features, moderate (ICD-10 - F31.12) 04/14/2023 Bipolar 2 disorder (ICD-10 - F31.81) [...] individual and couple therapy with Adela Phelps 05/25/2023 Bipolar 2 disorder (ICD-10 - F31.81) recent manic episode 06/07/2023 Bipolar 2 disorder (ICD-10 - F31.81) recent manic episode 06/27/2023 Bipolar 2 disorder (ICD-10 - F31.81) recent manic episode 06/28/2023 Bipolar 2 disorder (ICD-10 - F31.81) recent manic episode 07/05/2023 Bipolar 2 disorder (ICD-10 - F31.81) recent manic episode 07/07/2023 Bipolar 2 disorder (ICD-10 - F31.81) recent manic episode 07/21/2023 Bipolar 2 disorder (ICD-10 - F31.81) recent manic episode 09/22/2023 Bipolar 2 disorder (ICD-10 - F31.81) recent manic episode 11/08/2023 Bipolar 2 disorder (ICD-10 - F31.81) recent manic episode 11/09/2023 Bipolar 2 disorder (ICD-10 - F31.81) recent manic episode 04/19/2023 Bipolar 2 disorder (ICD-10 - F31.81) recent manic episode 09/01/2023 Bipolar 2 disorder (ICD-10 - F31.81) recent manic episode 08/09/2023 Bipolar 2 disorder (ICD-10 - F31.81) recent manic episode 08/04/2023 Bipolar 2 disorder (ICD-10 - F31.81) recent manic episode 07/14/2023 Bipolar 2 disorder (ICD-10 - F31.81) recent manic episode 06/08/2023 Bipolar 2 disorder (ICD-10 - F31.81) recent manic episode 04/11/2023 Bipolar 2 disorder (ICD-10 - F31.81) recent manic episode 04/01/2023 Bipolar 2 disorder (ICD-10 - F31.81) hypomanic episode 03/30/2023 Bipolar 2 disorder (ICD-10 - F31.81) hypomanic episode 03/30/2023 Bipolar 2 disorder (ICD-10 - F31.81) hypomanic episode 03/22/2023 Bipolar 2 disorder (ICD-10 - F31.81) hypomanic episode 06/22/2023 Bipolar 2 disorder (ICD-10 - F31.81) recent manic episode 07/12/2023 Other Documentation assistance provided by micah Augustin for Shakila Hicks [facility] ELEMENT WINDING MACHINE TENDER-C HAND LOOM WEAVER on 07/12/2023. I have read the medical [...] provided by micah Colbert for Shakila Hicks [facility] ELEMENT WINDING MACHINE TENDER-C HAND LOOM WEAVER on 12/07/2022. I have read the medical [...] depression. Consider purchasing Happy light Verilux from [employer]. 02/08/2023 Other Documentation assistance provided by micah Colbert for Shakila Hicks [facility] ELEMENT WINDING MACHINE TENDER-C HAND LOOM WEAVER on 02/08/2023. I have read the medical [...] by micah Colbert for Shakila Hicks [employer] ELEMENT WINDING MACHINE TENDER-C HAND LOOM WEAVER on 03/22/2023. I have read the medical [...] provided by micah Colbert for Shakila Hicks [facility] ELEMENT WINDING MACHINE TENDER-C HAND LOOM WEAVER on 03/30/2023. I have read the medical [...] by micah Colbert for Shakila Hicks [employer] ELEMENT WINDING MACHINE TENDER-C HAND LOOM WEAVER on 04/05/2023. I have read the medical [...] his counseling appointment with Yon Godoy on 04/08/23 with any concerns 04/11/2023 Other Documentation assistance provided by micah Colbert for Shakila Hicks [facility]LE[facility] WINDING MACHINE TENDER-C HAND LOOM WEAVER on 04/11/2023. I have read the medical [...] counselingTry to walk the dog dailyEngage in [employer] twice weekly 04/14/2023 Other Documentation assistance provided by luz maria Colberting for Shakila Hicks [employer] ELEMENT WINDING MACHINE TENDER-C HAND LOOM WEAVER on 04/14/2023. I have read the medical [...] and anxietyContinue individual and couples counseling with Adrianaouraged journaling so he can process his concerns with RhondaContinue walking with his dogContinue playing [employer] [place]henWill touch base with him on 04/19 to reassess his mood before he picks a rental car on all back this clinician after he speaks to his Urologist today 04/19/2023 Other Documentation assistance provided by micah Colbert for Shakila Hicks [employer] ELEMENT WINDING MACHINE TENDER-C HAND LOOM WEAVER on 04/19/2023. I have read the medical [...] mood is stableContinue daily walks and playing [employer] [place]henEncouraged going to [employer] for swimmingCan call Rosy [phone] Evita advised, drive to [employer] or his appointment to [employer] or [employer] on weekend, so he is comfortable. Reschedule his rental car appointment to next week 04/25/2023 Other Documentation assistance provided by micah Colbert for Shakila Hicks [employer] ELEMENT WINDING MACHINE TENDER-C HAND LOOM WEAVER on 04/25/2023. I have read the medical [...] provided by micah Colbert [facility] on 04/26/2023. I have read the medical [...] and couples counseling with RhondaContinue daily walks with dogs, playing pickleball, and engaging in swimming 04/05/2023 Other Documentation assistance provided by micah Colbert for Shakila Hicks [facility] HAND LOOM WEAVER on 04/05/2023. I have read the medical record and scribe entries. I approve the care and treatment provided to this patient as recorded by the scribe 04/05/2023 Other Documentation assistance provided by micah Colbert [facility] HAND LOOM WEAVER on 04/05/2023. I have read the medical record and scribe entries. I approve the care and treatment provided to this patient as recorded by the scribe 05/02/2023 Other Documentation assistance provided by micah Leija for Shakila Hicks [facility] on 05/02/2023. I have read the medical record and scribe entries. I approve the care and treatment provided to this patient as recorded by the scribe 05/25/2023 Other Documentation assistance provided by micah Colbert [facility] HAND LOOM WEAVER on 05/25/2023. I have read the medical record and scribe entries. I approve the care and treatment provided to this patient as recorded by the scribe. Continue Seroquel 600 mg at bedtime, monitor for abnormal movementsWill consider decreasing dose to 500 mg when Evita comes back from [place], so she can monitor Nain gerardoCan call if there are any questions or concerns while tapering down on SeroquelContinue Lamictal 100 mg, monitor for rash and stop if rash occursContinue Klonopin 0.5 mg quater tablet at bedtimeContinue individual and couples therapy with Roxana Duke engaging in pickleball, swimming and regular walks 06/07/2023 Other Documentation assistance provided by micah Colbert for Shakila Hicks [facility] ELEMENT WINDING MACHINE TENDER-C HAND LOOM WEAVER on 06/07/2023. I have read the medical [...] provided by micah Anderson for Shakila Hicks [facility] ELEMENT WINDING MACHINE TENDER-C HAND LOOM WEAVER on 06/22/2023. I have read the medical [...] assistance provided by micah Anderson for Shakila Blakesayda [facility] ELEMENT WINDING MACHINE TENDER-C HAND LOOM WEAVER on 06/28/2023. I have read the medical [...] provided by micah Anderson for Shakila Kurt [facility] on 07/05/2023. I have read the medical [...] provided by micah Anderson for Shakila Hicks [facility] HAND LOOM WEAVER on 07/07/2023. I have read the medical [...] provided by micah Anderson for Shakila Kurt [facility] on 07/14/2023. I have read the medical [...] Other Documentation assistance provided by micah Anderson [employer] ELEMENT WINDING MACHINE TENDER-C HAND LOOM WEAVER on 07/21/2023. I have read the medical [...] permits 08/04/2023 Other Documentation assistance provided by micah Anderson [facility] ELEMENT WINDING MACHINE TENDER-C HAND LOOM WEAVER on 08/04/2023. I have read the medical [...] is going to retire will refer to [facility] encouraged him to continue walking his dog daily , continue paying [employer] ball couple times a week, consider returning to swimming during the week 09/01/2023 Other Documentation assistance provided by micah Andersony Brodzinski [facility] ELEMENT WINDING MACHINE TENDER-C HAND LOOM WEAVER on 09/01/2023. I have read the medical [...] is going to retire will refer to [facility] encouraged him to continue walking his dog daily , continue paying pickle ball couple times a week, consider returning to swimming during the week 09/22/2023 Other Documentation assistance provided by Radha Neil, luz mariaing for Shakila Hicks [facility] ELEMENT WINDING MACHINE TENDER-C HAND LOOM WEAVER on 09/22/2023. I have read the medical [...] is going to retire will refer to [facility] encouraged him to continue walking his dog daily , continue paying pickle ball couple times a week, consider returning to swimming during the week 11/08/2023 Other Documentation assistance provided by luz maria Pachecoing for Shakila Hicks [facility] ELEMENT WINDING MACHINE TENDER-C HAND LOOM WEAVER on 11/08/2023. I have read the medical [...] November-June for seasonal depression Plan Of Treatment Next Appt Details Provider Name:Shakila Hutchins syeda, 12/07/2023 11:30:00 AM, [address], [place], [id number], Insurance Providers Payer Name Payer Address Payer Phone Subscriber Number Group Number Insured Name Patient Relationship to Insured Coverage Start Date Coverage End Date MEDICARE FQHC [address] [place], [place] [id number] Nain Mckeon Self - patient is the insured [employer] MEDICARE SUPPLEMENT [address] [place] [phone] [id number] Nain Mckeon Self - patient is the insured Medical (General) History Medical History History ICD Code Bipolar 2 Disorder Hypothyroidism 2020 CPE Tardive Dyskinesia, neuroleptic induced Insomnia Hyperlipidemia Psoriasis Obesity Part Medications, Klonopin, Sertraline, Cymbalta, Remeron, Tricylics, Olanzapine, Abilify, Vraylar, Rexulti, Geodon, Mckinley, Risperdal Cancer- Prostate BRCA 2 Gene Mutation po sitive Surgical History Surgery Date(Month/Year) Radical Prostatectomy Hospitalization History Reason Date(Month/Year) Depression- [facility] 2003 Depression- [place] 2019 B[place]- [facility] 2016
--- OUTSIDE RECORDS SUMMARY | 2023-11-19 09:22 | XMS_ITS | Encounter Summary ---
Author Organization [facility] Address [address] [place] [address] Care Team Providers Care Paperhanger Apprentice Name Role Phone Celio Sanders MD Primary Care Provider [phone] Encounter Details Date Type Department Care Team (Late st Contact Info) Description 10/17/2019 Lab Requisition [facility] Pathology & Laboratory Medicine - [facility] [address] [place], [place] [id number] Outr Resulting Lab, Provider Social History Tobacco [...] Outr Resulting Lab MICROBIOLOGY - GENERAL ORDERABLES [facility] [address] [place] [address] * COVID-19 TESTING (10/17/2019 15:50 EDT) COVID-19 rt-PCR Result Negative Negative 10/18/2019 0:27 EDT [facility] Comment: This test [...] history, and epidemiological information. Performed on the [employer] Fusion instrument Performing Lab Whick [facility] Lab 10/18/2019 0:27 EDT [facility] Swab 10/17/2019 15:5 0 EDT 10/17/2019 20:58 EDT Provider Outr Resulting Lab MICROBIOLOGY - GENERAL ORDERABLES [facility] [address] [place] [address] documented in this encounter Visit Diagnoses Not on filedocumented in this encounter Care Teams Paperhanger Apprentice Relationship Specialty Start Date End Date Celio Sanders MD [address] [place], [place] [phone] PCP - General 04/30/16 documented as of this encounter
--- OUTSIDE RECORDS SUMMARY | 2023-11-19 09:22 | XMS_ITS | Data Portability ---
[facility] Organization [place] [facility] Address [address] [place] [address] Assessment No assessment recorded. Plan of Treatment Reminders Order Date Submit Date Provider Last Modified By Organization Details Last Modified Time Details Appointments Annual Chronic Care (65+) 30 2023 02:10P M Not available Not available Not available Lab urinalysi s, dipstick 2023 024 [email or web address] [facility], [address] [place] [address], [address], [place], [address], 07/02/2023 12:50:28 culture, urine 2023 024 [facility] (Registration ), [address] [place] [address] [place], [address], 07/04/2023 08:41:06 microscop ic method, urine 2023 024 [facility] (Registration ), [address] [place] [address] [place], [address], 07/04/2023 08:40:48 Referral physical therapist referral 2023 024 [facility], [address], [place], [address], 08/31/2023 11:47:52 Procedures None recorded. Surgeries None recorded. Imaging None recorded. Medication Orders Flonase Allergy Relief 50 mcg/actua tion nasal spray,mayra pension 2023 024 [facility], [address] [place], [address], 05/05/2023 11:41:51 levofloxa tracy 750 mg tablet 2023 024 aurelio [facility], [address] [place], [address], 08/03/2023 11:17:49 metronida zole 500 mg tablet 2023 024 aurelio [facility], [address] [place], [address], 08/03/2023 11:17:49 cyclobenz aprine 10 mg tablet 2023 024 aurelio [facility], [address] [place], [address], 08/07/2023 12:47:14 Patient TargetsNo targets recorded. Patient Instructions Encounter Date Encounter Id Patient Instructions Last Modified By Organization Details Last Modified Time 05/05/2023 [id number] learning about healthy weight [email or web address] Not available 05/05/2023 13:38:31 07/02/2023 [id number] 1. 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 owing toenail Referring Physician: Dewayne Johnson [facility], Encounter Date: 03/21/2023 Physical Therapist Referral for Tension-type headache Referring Physician: Dewayne Johnson [facility], Encounter Date: 08/03/2023 Results Created Date Observation Date Name Description Value Unit Range Abnormal Flag Note LastModifiedBy Organization Detail LastModifiedTime 04/01/19 24 04/01/2023 COMPL ETE BLOOD COUNT W/DIF F WBC 10.60 10_3/ uL 4.4-10 .8 normal Not Available [address] [place], [address] 04/01/2023 18:21:40 04/01/19 24 04/01/2023 COMPL ETE BLOOD COUNT W/DIF F RBC 4.23 10_6/ uL 4.36-5 .78 low Not Available [address] [place], [address] 04/01/2023 18:21:40 04/01/19 24 04/01/2023 COMPL ETE BLOOD COUNT W/DIF F HGB 13.0 g/dL 13.5-1 7.5 low Not Available [address] [place], [address] 04/01/2023 18:21:40 04/01/19 24 04/01/2023 COMPL ETE BLOOD COUNT W/DIF F HCT 38.0 % 40.0-5 0.0 low Not Available [address] [place], [address] 04/01/2023 18:21:40 04/01/19 24 04/01/2023 COMPL ETE BLOOD COUNT W/DIF F MCV 90 fL 80-95 normal Not Available [address] [place], [address] 04/01/2023 18:21:40 04/01/19 24 04/01/2023 COMPL ETE BLOOD COUNT W/DIF F MCH 30.7 pg 27.0-3 3.0 normal Not Available [address] [place], [address] 04/01/2023 18:21:40 04/01/19 24 04/01/2023 COMPL ETE BLOOD COUNT W/DIF F MCHC 34.2 % 32.0-3 6.0 normal Not Available [address] [place], [address] 04/01/2023 18:21:40 04/01/19 24 04/01/2023 COMPL ETE BLOOD COUNT W/DIF F RDW 13.0 % 11.8-1 4.1 normal Not Available [address] [place], [address] 04/01/2023 18:21:40 04/01/19 24 04/01/2023 COMPL ETE BLOOD COUNT W/DIF F platelet count 385 10_3/ uL 130-40 0 normal Not Available [address] [place], [address] 04/01/2023 18:21:40 04/01/19 24 04/01/2023 COMPL ETE BLOOD COUNT W/DIF F MPV 8.5 fL 8.0-11 .0 normal Not Available [address] [place], [address] 04/01/2023 18:21:40 04/01/19 24 04/01/2023 COMPL ETE BLOOD COUNT W/DIF F neutrophils % 81.1 Not Available [address] [place], [address] 04/01/2023 18:21:40 04/01/19 24 04/01/2023 COMPL ETE BLOOD COUNT W/DIF F lymphocytes % 13.7 Not Available [address] [place], [address] 04/01/2023 18:21:40 04/01/19 24 04/01/2023 COMPL ETE BLOOD COUNT W/DIF F monocytes % 4.4 Not Available [address] [place], [address] 04/01/2023 18:21:40 04/01/19 24 04/01/2023 COMPL ETE BLOOD COUNT W/DIF F eosinophils % 0.1 Not Available [address] [place], [address] 04/01/2023 18:21:40 04/01/19 24 04/01/2023 COMPL ETE BLOOD COUNT W/DIF F basophils % 0.4 Not Available [address] [place], [address] 04/01/2023 18:21:40 04/01/19 24 04/01/2023 COMPL ETE BLOOD COUNT W/DIF F immature grans % 0.3 Not Available [address] [place], [address] 04/01/2023 18:21:40 04/01/19 24 04/01/2023 COMPL ETE BLOOD COUNT W/DIF F nucleated RBC 0.0 % 0.0-0. 3 normal Not Available [address] [place], [address] 04/01/2023 18:21:40 04/01/19 24 04/01/2023 COMPL ETE BLOOD COUNT W/DIF F absolute neutrophil count 8.60 10_3/ uL 1.2-6. 7 high Not Available [address] [place], [address] 04/01/2023 18:21:40 04/01/19 24 04/01/2023 COMPL ETE BLOOD COUNT W/DIF F absolute lymphocyte count 1.45 10_3/ uL 1.2-3. 4 normal Not Available [address] [place], [address] 04/01/2023 18:21:40 04/01/19 24 04/01/2023 COMPL ETE BLOOD COUNT W/DIF F absolute monocyte count 0.47 10_3/ uL 0.1-0. 8 normal Not Available [address] [place], [address] 04/01/2023 18:21:40 04/01/19 24 04/01/2023 COMPL ETE BLOOD COUNT W/DIF F absolute eosinophil count 0.01 10_3/ uL 0.0-0. 7 normal Not Available [address] [place], [address] 04/01/2023 18:21:40 04/01/19 24 04/01/2023 COMPL ETE BLOOD COUNT W/DIF F absolute basophil count 0.04 10_3/ uL 0.0-0. 2 normal Not Available [address] [place], [address] 04/01/2023 18:21:40 04/01/19 24 04/01/2023 PROTH ROMBI N TIME prothrombin time 10.8 sec 9.1-11 .1 normal Not Available [address] [place], [address] 04/01/2023 18:28:41 04/01/19 24 04/01/2023 PROTH ROMBI N TIME INR 1.1 0.9-1. 1 normal Recom cheikh d INR thera peuti c range s for orall y admin ister ed drugs are as follo ws: -Da dard Inten sity 2.0 to 3.0 -High er Inten sity 3.0 to 4.5 Not Available [address] [place], [address] 04/01/2023 18:28:41 04/01/19 24 04/01/2023 PTT ACTIV ATED PTT activated 24.6 sec 23.6-3 2.8 normal Hepar in Thera peuti c Range for PTT = 52-84 secon ds New Hepar in Thera peuti c Range 04/12 Not Available [address] [place], [address] 04/01/2023 18:28:41 04/01/19 24 04/01/2023 COMPR EHENS MARGE METAB OLIC PANEL calcium 9.6 mg/dL 8.5-10 .1 normal Not Available [address] [place], [address] 04/01/2023 18:52:43 04/01/19 24 04/01/2023 COMPR EHENS MARGE METAB OLIC PANEL glucose 145 mg/dL 74-106 high Not Available Alek luo [address] [place], [address] 04/01/2023 18:52:43 04/01/19 24 04/01/2023 COMPR EHENS MARGE METAB OLIC PANEL BUN 29 mg/dL 7-18 high Not Available Alek luo [address] [place], [address] 04/01/2023 18:52:43 04/01/19 24 04/01/2023 COMPR EHENS MARGE METAB OLIC PANEL creatinine 1.0 mg/dL 0.70-1 .30 normal Not Available [address] [place], [address] 04/01/2023 18:52:43 04/01/19 24 04/01/2023 COMPR EHENS MARGE METAB OLIC PANEL estimated GFR 78.98 mL/min /1.73m 2 The eGFR is calcu lated from a serum creat inine using the CKD-E PI 2020 equat ion. Other varia bles requi red for the equat ion are gende r and age; this equat ion does not inclu de a race coeff icien t. This equat ion has simil ar overa ll perfo rmanc e to previ ous equat ions excep t value s may diffe r, in parti cular , in patie nts with highe r value s of eGFR and young er-ag ed adult s. Not Available [address] [place], [address] 04/01/2023 18:52:43 04/01/19 24 04/01/2023 COMPR EHENS MARGE METAB OLIC PANEL total protein 8.6 g/dL 6.4-8. 2 high Not Available [address] [place], [address] 04/01/2023 18:52:43 04/01/19 24 04/01/2023 COMPR EHENS MARGE METAB OLIC PANEL albumin 4.4 g/dL 3.4-5. 0 normal Not Available [address] [place], [address] 04/01/2023 18:52:43 04/01/19 24 04/01/2023 COMPR EHENS MARGE METAB OLIC PANEL bilirubin, total 0.8 mg/dL 0.2-1. 0 normal Not Available [address] [place], [address] 04/01/2023 18:52:43 04/01/19 24 04/01/2023 COMPR EHENS MARGE METAB OLIC PANEL alk phos 64 U/L 46-116 normal Not Available [address] [place], [address] 04/01/2023 18:52:43 04/01/19 24 04/01/2023 COMPR EHENS MARGE METAB OLIC PANEL sodium 142 mmol/ L 136-14 5 normal Not Available [address] [place], [address] 04/01/2023 18:52:43 04/01/19 24 04/01/2023 COMPR EHENS MARGE METAB OLIC PANEL potassium 3.7 mmol/ L 3.5-5. 1 normal Not Available [address] [place], [address] 04/01/2023 18:52:43 04/01/19 24 04/01/2023 COMPR EHENS MARGE METAB OLIC PANEL chloride 105 mmol/ L 98-107 normal Not Available [address] [place], [address] 04/01/2023 18:52:43 04/01/19 24 04/01/2023 COMPR EHENS MARGE METAB OLIC PANEL CO2 24.6 mmol/ L 21.0-3 2.0 normal Not Available [address] [place], [address] 04/01/2023 18:52:43 04/01/19 24 04/01/2023 COMPR EHENS MARGE METAB OLIC PANEL anion gap 12.4 mmol/ L 3-11 high Not Available [address] [place], [address] 04/01/2023 18:52:43 04/01/19 24 04/01/2023 COMPR EHENS MARGE METAB OLIC PANEL AST 124 U/L 15-37 high Not Available Alek luo [address] [place], [address] 04/01/2023 18:52:43 04/01/19 24 04/01/2023 COMPR EHENS MARGE METAB OLIC PANEL ALT 65 U/L 16-63 high Not Available Alek luo [address] [place], [address] 04/01/2023 18:52:43 04/01/1904/01/2023 ETHYL ALCOH OL ethyl alcohol < 3.0 mg/dL <10 ETOH Refer ence Range = <10 mg/dL Legal Limit of Intox icati on is 80 mg/dL This test is inten ded only for Medic al purpo ses. Divid e resul t by 1000 to conve rt to %(w/v ) Not Available [address] [place], [address] 04/01/2023 18:52:44 04/01/1904/01/2023 MAGNE SIUM magnesium 2.3 mg/dL 1.8-2. 4 normal Not Available [address] [place], [address] 04/01/2023 18:52:45 04/01/1904/01/2023 TSH (W/RE F FT4) TSH (w/ref FT4) 3.11 uIU/m L 0.36-3 .74 normal NOTE: Supra -phys iolog ic doses of Bioti n(B7) may cause false negat marge resul ts. Not Available [address] [place], [address] 04/01/2023 18:52:46 04/01/19 24 04/01/2023 CARDI AC TROPO CATIE I cardiac troponin I < 50 NG/L < or =60 Not Available [address] [place], [address] 04/01/2023 18:52:46 04/01/19 24 04/01/2023 URINA LYSIS color Dark Yellow yellow Not Available [address] [place], [address] 04/01/2023 20:23:13 04/01/19 24 04/01/2023 URINA LYSIS clarity Sl Cloudy clear Not Available [address] [place], [address] 04/01/2023 20:23:13 04/01/19 24 04/01/2023 URINA LYSIS specific gravity 1.025 1.005- 1.025 normal Not Available [address] [place], [address] 04/01/2023 20:23:13 04/01/19 24 04/01/2023 URINA LYSIS pH 6.5 5-8 normal Not Available Alek luo [address] [place], [address] 04/01/2023 20:23:13 04/01/19 24 04/01/2023 URINA LYSIS leukocyte esterase Negati ve negati ve Not Available [address] [place], [address] 04/01/2023 20:23:13 04/01/19 24 04/01/2023 URINA LYSIS nitrite Negati ve negati ve Not Available [address] [place], [address] 04/01/2023 20:23:13 04/01/19 24 04/01/2023 URINA LYSIS protein 30 mg/dL negati ve abnormal Not Available [address] [place], [address] 04/01/2023 20:23:13 04/01/19 24 04/01/2023 URINA LYSIS glucose Negati ve mg/dL negati ve Not Available [address] [place], [address] 04/01/2023 20:23:13 04/01/19 24 04/01/2023 URINA LYSIS ketones 15 mg/dL negati ve abnormal Not Available [address] [place], [address] 04/01/2023 20:23:13 04/01/19 24 04/01/2023 URINA LYSIS urobilinogen 0.2 mg/dL up to 0.2 Not Available [address] [place], [address] 04/01/2023 20:23:13 04/01/19 24 04/01/2023 URINA LYSIS bilirubin Small negati ve abnormal Not Available [address] [place], [address] 04/01/2023 20:23:13 04/01/19 24 04/01/2023 URINA LYSIS blood Negati ve negati ve Not Available [address] [place], [address] 04/01/2023 20:23:13 04/01/19 24 04/01/2023 URINA LYSIS color Dark Yellow yellow Not Available [address] [place], [address] 04/01/2023 20:28:14 04/01/19 24 04/01/2023 URINA LYSIS clarity Sl Cloudy clear Not Available [address] [place], [address] 04/01/2023 20:28:14 04/01/19 24 04/01/2023 URINA LYSIS specific gravity 1.025 1.005- 1.025 normal Not Available [address] [place], [address] 04/01/2023 20:28:14 04/01/19 24 04/01/2023 URINA LYSIS pH 6.5 5-8 normal Not Available Alek luo [address], [address] 04/01/2023 20:28:14 04/01/19 24 04/01/2023 URINA LYSIS leukocyte esterase Negati ve negati ve Not Available [address] [place], [address] 04/01/2023 20:28:14 04/01/19 24 04/01/2023 URINA LYSIS nitrite Negati ve negati ve Not Available [address] [place], [address] 04/01/2023 20:28:14 04/01/19 24 04/01/2023 URINA LYSIS protein 30 mg/dL negati ve abnormal Not Available [address] [place], [address] 04/01/2023 20:28:14 04/01/19 24 04/01/2023 URINA LYSIS glucose Negati ve mg/dL negati ve Not Available [address] [place], [address] 04/01/2023 20:28:14 04/01/19 24 04/01/2023 URINA LYSIS ketones 15 mg/dL negati ve abnormal Not Available [address] [place], [address] 04/01/2023 20:28:14 04/01/19 24 04/01/2023 URINA LYSIS urobilinogen 0.2 mg/dL up to 0.2 Not Available [address] [place], [address] 04/01/2023 20:28:14 04/01/19 24 04/01/2023 URINA LYSIS bilirubin Small negati ve abnormal Not Available [address] [place], [address] 04/01/2023 20:28:14 04/01/19 24 04/01/2023 URINA LYSIS blood Negati ve negati ve Not Available [address] [place], [address] 04/01/2023 20:28:14 04/01/19 24 04/01/2023 MICRO SCOPI C FINDI NGS WBC Negati ve hpf 0-5 Not Available Cameron monk [address] [place], [address] 04/01/2023 20:28:14 04/01/19 24 04/01/2023 MICRO SCOPI C FINDI NGS RBC 0-2 hpf 0-2 Not Available Alek luo [address] [place], [address] 04/01/2023 20:28:14 04/01/19 24 04/01/2023 MICRO SCOPI C FINDI NGS epithelial cells Rare hpf negati ve Not Available [address] [place], [address] 04/01/2023 20:28:14 04/01/19 24 04/01/2023 MICRO SCOPI C FINDI NGS bacteria Rare hpf negati ve Not Available [address] [place], [address] 04/01/2023 20:28:14 04/01/19 24 04/01/2023 MICRO SCOPI C FINDI NGS crystals Negati ve hpf negati ve Not Available [address] [place], [address] 04/01/2023 20:28:14 04/01/19 24 04/01/2023 MICRO SCOPI C FINDI NGS mucus Modera te negati ve Not Available [address] [place], [address] 04/01/2023 20:28:14 04/01/19 24 04/01/2023 MICRO SCOPI C FINDI NGS casts Negati ve lpf negati ve Not Available [address] [place], [address] 04/01/2023 20:28:14 04/01/19 24 04/01/2023 MICRO SCOPI C FINDI NGS C S indicated? No Not Available [address], [address] 04/01/2023 20:28:14 04/01/19 24 04/01/2023 URINE DRUG SCREE N ([facility] ) methadone Negati ve negati ve Not Available [address] [place], [address] 04/01/2023 20:52:15 04/01/19 24 04/01/2023 URINE DRUG SCREE N ([facility] ) benzodiazepi juaquin Negati ve negati ve Benzo diaze pines are exten sivel y metab olize d and the paren t compo und may not be detec nadia in urine . If clini joao suspi cion is high, pleas e notif y Lab for send- out testi ng. Not Available [address] [place], [address] 04/01/2023 20:52:15 04/01/19 24 04/01/2023 URINE DRUG SCREE N ([facility] ) cocaine Negati ve negati ve Not Available [address] [place], [address] 04/01/2023 20:52:15 04/01/19 24 04/01/2023 URINE DRUG SCREE N ([facility] ) amphetamines Negati ve negati ve Not Available [address] [place], [address] 04/01/2023 20:52:15 04/01/19 24 04/01/2023 URINE DRUG SCREE N ([facility] ) tetrahydroca nnabinol Negati ve negati ve Not Available [address] [place], [address] 04/01/2023 20:52:15 04/01/19 24 04/01/2023 URINE DRUG SCREE N ([facility] ) opiates Negati ve negati ve Not Available [address] [place], [address] 04/01/2023 20:52:15 04/01/19 24 04/01/2023 URINE DRUG SCREE N ([facility] ) barbiturates Negati ve negati ve Not Available [address] [place], [address] 04/01/2023 20:52:15 04/01/1904/01/2023 URINE DRUG SCREE N ([facility] ) tricyclic antidepressa nts Positi ve negati ve abnormal T his test is not suita ble for legal purpo ses Cutof f robert ntrat ions for each drug class are: MTD 300 ng/mL BZO 200 ng/mL JOVITA 300 ng/mL * AMP 1000 ng/mL * THC 50 ng/mL OPI 300 ng/mL BAR 200 ng/mL TCA 1000 ng/mL *Jose mmend ed scree wendy cutof f robert ntrat ions by the subst ance abuse and menta l healt h servi nora admin istra tion. This test provi collette preli minar y resul ts. A more speci fic alter hanna metho d such as GC/MS is the prefe rred confi rmato ry metho d. Notif y the Labor atory withi n 72 hours of repor t date if you valente e confi rmati on. Presc ribed medic ation s may give posit marge resul ts and must be consi dered prior to inter preta tion of these resul ts. Not Available [address] [place], [address] 04/01/2023 20:52:15 04/01/19 24 04/01/2023 CARDI AC TROPO CATIE I cardiac troponin I < 50 NG/L < or =60 Not Available [address] [place], [address] 04/01/2023 21:38:18 04/19/19 24 04/19/2023 COMPL ETE BLOOD COUNT W/DIF F WBC 6.83 10_3/ uL 4.4-10 .8 normal Not Available [address] [place], [address] 04/19/2023 12:58:26 04/19/19 24 04/19/2023 COMPL ETE BLOOD COUNT W/DIF F RBC 4.02 10_6/ uL 4.36-5 .78 low Not Available [address] [place], [address] 04/19/2023 12:58:26 04/19/19 24 04/19/2023 COMPL ETE BLOOD COUNT W/DIF F HGB 12.3 g/dL 13.5-1 7.5 low Not Available [address] [place], [address] 04/19/2023 12:58:26 04/19/19 24 04/19/2023 COMPL ETE BLOOD COUNT W/DIF F HCT 37.2 % 40.0-5 0.0 low Not Available [address] [place], [address] 04/19/2023 12:58:26 04/19/19 24 04/19/2023 COMPL ETE BLOOD COUNT W/DIF F MCV 93 fL 80-95 normal Not Available Alek [address] [place], [address] 04/19/2023 12:58:26 04/19/19 24 04/19/2023 COMPL ETE BLOOD COUNT W/DIF F MCH 30.6 pg 27.0-3 3.0 normal Not Available [address] [place], [address] 04/19/2023 12:58:26 04/19/19 24 04/19/2023 COMPL ETE BLOOD COUNT W/DIF F MCHC 33.1 % 32.0-3 6.0 normal Not Available [address] [place], [address] 04/19/2023 12:58:26 04/19/19 24 04/19/2023 COMPL ETE BLOOD COUNT W/DIF F RDW 13.2 % 11.8-1 4.1 normal Not Available [address] [place], [address] 04/19/2023 12:58:26 04/19/19 24 04/19/2023 COMPL ETE BLOOD COUNT W/DIF F platelet count 322 10_3/ uL 130-40 0 normal Not Available [address] [place], [address] 04/19/2023 12:58:26 04/19/19 24 04/19/2023 COMPL ETE BLOOD COUNT W/DIF F MPV 8.7 fL 8.0-11 .0 normal Not Available [address] [place], [address] 04/19/2023 12:58:26 04/19/19 24 04/19/2023 COMPL ETE BLOOD COUNT W/DIF F neutrophils % 54.5 Not Available [address] [place], [address] 04/19/2023 12:58:26 04/19/19 24 04/19/2023 COMPL ETE BLOOD COUNT W/DIF F lymphocytes % 31.5 Not Available [address] [place], [address] 04/19/2023 12:58:26 04/19/19 24 04/19/2023 COMPL ETE BLOOD COUNT W/DIF F monocytes % 11.0 Not Available [address] [place], [address] 04/19/2023 12:58:26 04/19/19 24 04/19/2023 COMPL ETE BLOOD COUNT W/DIF F eosinophils % 2.3 Not Available [address] [place], [address] 04/19/2023 12:58:26 04/19/19 24 04/19/2023 COMPL ETE BLOOD COUNT W/DIF F basophils % 0.4 Not Available [address] [place], [address] 04/19/2023 12:58:26 04/19/19 24 04/19/2023 COMPL ETE BLOOD COUNT W/DIF F immature grans % 0.3 Not Available [address] [place], [address] 04/19/2023 12:58:26 04/19/19 24 04/19/2023 COMPL ETE BLOOD COUNT W/DIF F nucleated RBC 0.0 % 0.0-0. 3 normal Not Available [address] [place], [address] 04/19/2023 12:58:26 04/19/19 24 04/19/2023 COMPL ETE BLOOD COUNT W/DIF F absolute neutrophil count 3.72 10_3/ uL 1.2-6. 7 normal Not Available [address] [place], [address] 04/19/2023 12:58:26 04/19/19 24 04/19/2023 COMPL ETE BLOOD COUNT W/DIF F absolute lymphocyte count 2.15 10_3/ uL 1.2-3. 4 normal Not Available [address] [place], [address] 04/19/2023 12:58:26 04/19/19 24 04/19/2023 COMPL ETE BLOOD COUNT W/DIF F absolute monocyte count 0.75 10_3/ uL 0.1-0. 8 normal Not Available [address] [place], [address] 04/19/2023 12:58:26 04/19/19 24 04/19/2023 COMPL ETE BLOOD COUNT W/DIF F absolute eosinophil count 0.16 10_3/ uL 0.0-0. 7 normal Not Available [address] [place], [address] 04/19/2023 12:58:26 04/19/19 24 04/19/2023 COMPL ETE BLOOD COUNT W/DIF F absolute basophil count 0.03 10_3/ uL 0.0-0. 2 normal Not Available [address] [place], [address] 04/19/2023 12:58:26 04/19/19 24 04/19/2023 COMPR EHENS MARGE METAB OLIC PANEL calcium 10.0 mg/dL 8.5-10 .1 normal Not Available [address] [place], [address] 04/19/2023 14:02:34 04/19/19 24 04/19/2023 COMPR EHENS MARGE METAB OLIC PANEL glucose 101 mg/dL 74-106 normal Not Available Alek luo [address] [place], [address] 04/19/2023 14:02:34 04/19/19 24 04/19/2023 COMPR EHENS MARGE METAB OLIC PANEL BUN 15 mg/dL 7-18 normal Not Available Alek [address] [place], [address] 04/19/2023 14:02:34 04/19/19 24 04/19/2023 COMPR EHENS MARGE METAB OLIC PANEL creatinine 1.0 mg/dL 0.70-1 .30 normal Not Available [address] [place], [address] 04/19/2023 14:02:34 04/19/19 24 04/19/2023 COMPR EHENS MARGE METAB OLIC PANEL estimated GFR 78.98 mL/min /1.73m 2 The eGFR is calcu lated from a serum creat inine using the CKD-E PI 2020 equat ion. Other varia bles requi red for the equat ion are gende r and age; this equat ion does not inclu de a race coeff icien t. This equat ion has simil ar overa ll perfo rmanc e to previ ous equat ions excep t value s may diffe r, in parti cular , in patie nts with highe r value s of eGFR and young er-ag ed adult s. Not Available [address] [place], [address] 04/19/2023 14:02:34 04/19/19 24 04/19/2023 COMPR EHENS MARGE METAB OLIC PANEL total protein 8.3 g/dL 6.4-8. 2 high Not Available [address] [place], [address] 04/19/2023 14:02:34 04/19/19 24 04/19/2023 COMPR EHENS MARGE METAB OLIC PANEL albumin 4.0 g/dL 3.4-5. 0 normal Not Available [address] [place], [address] 04/19/2023 14:02:34 04/19/19 24 04/19/2023 COMPR EHENS MARGE METAB OLIC PANEL bilirubin, total 0.4 mg/dL 0.2-1. 0 normal Not Available [address] [place], [address] 04/19/2023 14:02:34 04/19/19 24 04/19/2023 COMPR EHENS MARGE METAB OLIC PANEL alk phos 79 U/L 46-116 normal Not Available [address] [place], [address] 04/19/2023 14:02:34 04/19/19 24 04/19/2023 COMPR EHENS MARGE METAB OLIC PANEL sodium 138 mmol/ L 136-14 5 normal Not Available [address] [place], [address] 04/19/2023 14:02:34 04/19/19 24 04/19/2023 COMPR EHENS MARGE METAB OLIC PANEL potassium 4.2 mmol/ L 3.5-5. 1 normal Not Available [address] [place], [address] 04/19/2023 14:02:34 04/19/19 24 04/19/2023 COMPR EHENS MARGE METAB OLIC PANEL chloride 103 mmol/ L 98-107 normal Not Available [address] [place], [address] 04/19/2023 14:02:34 04/19/19 24 04/19/2023 COMPR EHENS MARGE METAB OLIC PANEL CO2 31.4 mmol/ L 21.0-3 2.0 normal Not Available [address] [place], [address] 04/19/2023 14:02:34 04/19/19 24 04/19/2023 COMPR EHENS MARGE METAB OLIC PANEL anion gap 3.6 mmol/ L 3-11 normal Not Available [address] [place], [address] 04/19/2023 14:02:34 04/19/19 24 04/19/2023 COMPR EHENS MARGE METAB OLIC PANEL AST 28 U/L 15-37 normal Not Available Alek [address] [place], [address] 04/19/2023 14:02:34 04/19/19 24 04/19/2023 COMPR EHENS MARGE METAB OLIC PANEL ALT 39 U/L 16-63 normal Not Available Alek [address] [place], [address] 04/19/2023 14:02:34 04/19/19 24 04/22/2023 TESTO STERO NE, TOTAL testosterone , total 8.2 NG/dL 240-95 0 abnormal ----- ----- ----- ----A DDITI ONAL INFOR MATIO N---- ----- ----- ----- Testi ng perfo rmed by Luisito Rhoades atogr jass- Betzaida m Mass Spect romet ry (LC-M S/MS) . This test was devel oped and its perfo rmanc e noemi cteri stics deter mined by [facility] in a abbi r consi stent with RAMON alvarez ts. This test has not been clear ed or appro joan by the U.S. Food and Drug Admin istra tion. Test Perfo rmed by: [facility] [place] [address], [place] [address] Lab Direc tor: Hoang Cruz Ph.D. ; CLIA# [id number] Not Available [address] [place], [address] 04/22/2023 16:53:27 04/19/19 24 04/21/2023 PSA, ULTRA SENSI TIVE PSA, ultrasensiti ve 0.04 NG/mL <= 6.5 ----- ----- ----- ----A DDITI ONAL INFOR MATIO N---- ----- ----- ----- INTER PRETA TION: After radic al prost atect alton, serum PSA robert ntrat ions shoul d decre ase and remai n at undet ectab le level s. The Ameri can Urolo gical Assoc iatio n defin es bioch emica l recur rence as an initi al PSA robert ntrat ion >=0.2 0 ng/mL follo wed by a subse quent confi rmato ry PSA robert ntrat ion >=0.2 0 ng/mL . PLEAS E NOTE: The above refer ence inter neo and myron ing is inten ded for healt hy males witho ut prost atect alton. The testi ng metho d is an elect [place] inesc ence assay manuf actur ed by [employer] and perfo rmed on the Barrett syste m. Value s obtai radha with diffe rent assay metho ds or kits may be diffe rent and canno t be used inter domínguez eapillo . Test resul ts canno t be inter prete d as absol inupiat evide nce for the prese nce or absen ce of molly barbosa se. Test Perfo rmed by: [facility] - [place] [address], [place] [address] Lab Direc tor: Hoang Cruz Ph.D. ; CLIA# [id number] Not Available [address] [place], [address] 04/22/2023 16:53:27 06/10/19 24 06/10/2023 COMPL ETE BLOOD COUNT W/DIF F WBC 7.95 10_3/ uL 4.4-10 .8 normal Not Available [address] [place], [address] 06/10/2023 14:55:59 06/10/19 24 06/10/2023 COMPL ETE BLOOD COUNT W/DIF F RBC 4.03 10_6/ uL 4.36-5 .78 low Not Available [address] [place], [address] 06/10/2023 14:55:59 06/10/19 24 06/10/2023 COMPL ETE BLOOD COUNT W/DIF F HGB 12.7 g/dL 13.5-1 7.5 low Not Available [address] [place], [address] 06/10/2023 14:55:59 06/10/19 24 06/10/2023 COMPL ETE BLOOD COUNT W/DIF F HCT 37.3 % 40.0-5 0.0 low Not Available [address] [place], [address] 06/10/2023 14:55:59 06/10/1906/10/2023 COMPL ETE BLOOD COUNT W/DIF F MCV 93 fL 80-95 normal Not Available Alek luo [address] [place], [address] 06/10/2023 14:55:59 06/10/19 24 06/10/2023 COMPL ETE BLOOD COUNT W/DIF F MCH 31.5 pg 27.0-3 3.0 normal Not Available [address] [place], [address] 06/10/2023 14:55:59 06/10/19 24 06/10/2023 COMPL ETE BLOOD COUNT W/DIF F MCHC 34.0 % 32.0-3 6.0 normal Not Available [address] [place], [address] 06/10/2023 14:55:59 06/10/19 24 06/10/2023 COMPL ETE BLOOD COUNT W/DIF F RDW 13.0 % 11.8-1 4.1 normal Not Available [address] [place], [address] 06/10/2023 14:55:59 06/10/19 24 06/10/2023 COMPL ETE BLOOD COUNT W/DIF F platelet count 326 10_3/ uL 130-40 0 normal Not Available [address] [place], [address] 06/10/2023 14:55:59 06/10/19 24 06/10/2023 COMPL ETE BLOOD COUNT W/DIF F MPV 8.8 fL 8.0-11 .0 normal Not Available [address] [place], [address] 06/10/2023 14:55:59 06/10/19 24 06/10/2023 COMPL ETE BLOOD COUNT W/DIF F neutrophils % 46.4 Not Available [address] [place], [address] 06/10/2023 14:55:59 06/10/19 24 06/10/2023 COMPL ETE BLOOD COUNT W/DIF F lymphocytes % 37.2 Not Available [address] [place], [address] 06/10/2023 14:55:59 06/10/19 24 06/10/2023 COMPL ETE BLOOD COUNT W/DIF F monocytes % 9.2 Not Available [address] [place], [address] 06/10/2023 14:55:59 06/10/19 24 06/10/2023 COMPL ETE BLOOD COUNT W/DIF F eosinophils % 5.9 Not Available [address] [place], [address] 06/10/2023 14:55:59 06/10/19 24 06/10/2023 COMPL ETE BLOOD COUNT W/DIF F basophils % 0.9 Not Available [address] [place], [address] 06/10/2023 14:55:59 06/10/19 24 06/10/2023 COMPL ETE BLOOD COUNT W/DIF F immature grans % 0.4 Not Available Shayan bradford [address] [place], [address] 06/10/2023 14:55:59 06/10/19 24 06/10/2023 COMPL ETE BLOOD COUNT W/DIF F nucleated RBC 0.0 % 0.0-0. 3 normal Not Available [address] [place], [address] 06/10/2023 14:55:59 06/10/19 24 06/10/2023 COMPL ETE BLOOD COUNT W/DIF F absolute neutrophil count 3.69 10_3/ uL 1.2-6. 7 normal Not Available [address] [place], [address] 06/10/2023 14:55:59 06/10/19 24 06/10/2023 COMPL ETE BLOOD COUNT W/DIF F absolute lymphocyte count 2.96 10_3/ uL 1.2-3. 4 normal Not Available [address] [place], [address] 06/10/2023 14:55:59 06/10/19 24 06/10/2023 COMPL ETE BLOOD COUNT W/DIF F absolute monocyte count 0.73 10_3/ uL 0.1-0. 8 normal Not Available [address] [place], [address] 06/10/2023 14:55:59 06/10/19 24 06/10/2023 COMPL ETE BLOOD COUNT W/DIF F absolute eosinophil count 0.47 10_3/ uL 0.0-0. 7 normal Not Available [address] [place], [address] 06/10/2023 14:55:59 06/10/19 24 06/10/2023 COMPL ETE BLOOD COUNT W/DIF F absolute basophil count 0.07 10_3/ uL 0.0-0. 2 normal Not Available [address] [place], [address] 06/10/2023 14:55:59 06/10/19 24 06/10/2023 LASIC METAB OLIC PANEL calcium 9.0 mg/dL 8.5-10 .1 normal Not Available [address] [place], [address] 06/10/2023 15:55:21 06/10/19 24 06/10/2023 LASIC METAB OLIC PANEL glucose 93 mg/dL 74-106 normal Not Available Alek luo [address] [place], [address] 06/10/2023 15:55:21 06/10/19 24 06/10/2023 LASIC METAB OLIC PANEL BUN 23 mg/dL 7-18 high Not Available Alek luo [address] [place], [address] 06/10/2023 15:55:21 06/10/19 24 06/10/2023 LASIC METAB OLIC PANEL creatinine 1.1 mg/dL 0.70-1 .30 normal Not Available [address] [place], [address] 06/10/2023 15:55:21 06/10/19 24 06/10/2023 LASIC METAB OLIC PANEL estimated GFR 70.44 mL/min /1.73m 2 The eGFR is calcu lated from a serum creat inine using the CKD-E PI 2020 equat ion. Other varia bles requi red for the equat ion are gende r and age; this equat ion does not inclu de a race coeff icien t. This equat ion has simil ar overa ll perfo rmanc e to previ ous equat ions excep t value s may diffe r, in parti cular , in patie nts with highe r value s of eGFR and young er-ag ed adult s. Not Available [address] [place], [address] 06/10/2023 15:55:21 06/10/19 24 06/10/2023 LASIC METAB OLIC PANEL sodium 143 mmol/ L 136-14 5 normal Not Available [address] [place], [address] 06/10/2023 15:55:21 06/10/19 24 06/10/2023 LASIC METAB OLIC PANEL potassium 4.5 mmol/ L 3.5-5. 1 normal Not Available [address] [place], [address] 06/10/2023 15:55:21 06/10/19 24 06/10/2023 LASIC METAB OLIC PANEL chloride 105 mmol/ L 98-107 normal Not Available [address] [place], [address] 06/10/2023 15:55:21 06/10/19 24 06/10/2023 LASIC METAB OLIC PANEL CO2 28.5 mmol/ L 21.0-3 2.0 normal Not Available [address] [place], [address] 06/10/2023 15:55:21 06/10/19 24 06/10/2023 LASIC METAB OLIC PANEL anion gap 9.5 mmol/ L 3-11 normal Not Available [address] [place], [address] 06/10/2023 15:55:21 06/10/19 24 06/10/2023 LASIC METAB OLIC PANEL calcium 9.0 mg/dL 8.5-10 .1 normal Not Available [address] [place], [address] 06/10/2023 16:16:20 06/10/19 24 06/10/2023 LASIC METAB OLIC PANEL glucose 93 mg/dL 74-106 normal Not Available Aelk luo [address] [place], [address] 06/10/2023 16:16:20 06/10/19 24 06/10/2023 LASIC METAB OLIC PANEL BUN 23 mg/dL 7-18 high Not Available Alek luo [address] [place], [address] 06/10/2023 16:16:20 06/10/19 24 06/10/2023 LASIC METAB OLIC PANEL creatinine 1.1 mg/dL 0.70-1 .30 normal Not Available [address] [place], [address] 06/10/2023 16:16:20 06/10/19 24 06/10/2023 LASIC METAB OLIC PANEL estimated GFR 70.44 mL/min /1.73m 2 The eGFR is calcu lated from a serum creat inine using the CKD-E PI 2020 equat ion. Other varia bles requi red for the equat ion are gende r and age; this equat ion does not inclu de a race coeff icien t. This equat ion has simil ar overa ll perfo rmanc e to previ ous equat ions excep t value s may diffe r, in parti cular , in patie nts with highe r value s of eGFR and young er-ag ed adult s. Not Available [address] [place], [address] 06/10/2023 16:16:20 06/10/19 24 06/10/2023 LASIC METAB OLIC PANEL sodium 143 mmol/ L 136-14 5 normal Not Available [address] [place], [address] 06/10/2023 16:16:20 06/10/19 24 06/10/2023 LASIC METAB OLIC PANEL potassium 4.5 mmol/ L 3.5-5. 1 normal Not Available [address] [place], [address] 06/10/2023 16:16:20 06/10/19 24 06/10/2023 LASIC METAB OLIC PANEL chloride 105 mmol/ L 98-107 normal Not Available [address] [place], [address] 06/10/2023 16:16:20 06/10/19 24 06/10/2023 LASIC METAB OLIC PANEL CO2 28.5 mmol/ L 21.0-3 2.0 normal Not Available [address] [place], [address] 06/10/2023 16:16:20 06/10/19 24 06/10/2023 LASIC METAB OLIC PANEL anion gap 9.5 mmol/ L 3-11 normal Not Available [address] [place], [address] 06/10/2023 16:16:20 07/02/19 24 07/02/2023 MICRO SCOPI C FINDI NGS WBC 3-5 hpf 0-5 Not Available [facility] (Registration ) [address] [place] [address] [place], [address], 07/02/2023 16:56:52 07/02/19 24 07/02/2023 MICRO SCOPI C FINDI NGS RBC >50 hpf 0-2 abnormal Not Available [facility] (Registration ) [address] [place] [address] [place], [address], 07/02/2023 16:56:52 07/02/19 24 07/02/2023 MICRO SCOPI C FINDI NGS epithelial cells Rare hpf negati ve Not Available [facility] (Registration ) [address] [place] [address] [place], [address], 07/02/2023 16:56:52 07/02/19 24 07/02/2023 MICRO SCOPI C FINDI NGS bacteria Few hpf negati ve Not Available [facility] (Registration ) [address] [place] [address] [place], [address], 07/02/2023 16:56:52 07/02/19 24 07/02/2023 MICRO SCOPI C FINDI NGS crystals Negati ve hpf negati ve Not Available [facility] (Registration ) [address] [place] [address] [place], [address], 07/02/2023 16:56:52 07/02/19 24 07/02/2023 MICRO SCOPI C FINDI NGS mucus Negati ve negati ve Not Available [facility] (Registration ) [address] [place] [address] [place], [address], 07/02/2023 16:56:52 07/02/19 24 07/02/2023 MICRO SCOPI C FINDI NGS casts Negati ve lpf negati ve Not Available [facility] (Registration ) [address] [place] [address] [place], [address], 07/02/2023 16:56:52 07/02/19 24 07/02/2023 MICRO SCOPI C FINDI NGS C S indicated? C S Done As Ordere d Not Available [facility] (Registration ) [address] [place] [address] [place], [address], 07/02/2023 16:56:52 07/02/19 24 07/03/2023 URINE CULTU RE urine culture Urine Cultu re ACTIO N ID AND SUSCE PTIBI LITY TO FOLLO W APPEA FARTUN Gram Negat marge Marcelle COLON Y COUNT Not Available [facility] (Registration ) [address] [place] [address] [place], [address], 07/03/2023 10:35:55 07/02/19 24 07/03/2023 URINE CULTU RE urine culture colon ies/m L >100, 000 Day 1 Resul t ISOLA VIKTORIA BELOW O:GNR (ORGA NISM ID: 1.1) - GRAM NEGAT MARGE MARCELLE Urine Cultu re (ORGA NISM ID: 1.1) - COLON Y COUNT (ORGA NISM ID: 1.1) - >100, 000 Not Available [facility] (Registration ) [address] [place] [address] [place], [address], 07/03/2023 10:35:55 07/02/19 24 07/04/2023 URINE CULTU RE urine culture Urine Cultu re ACTIO N ID AND SUSCE PTIBI LITY TO FOLLO W APPEA FARTUN Gram Negat marge Marcelle APPEA FARTUN Gram Negat marge Marcelle COLON Y COUNT Not Available [facility] (Registration ) [address] [place] [address] [place], [address], 07/04/2023 07:54:50 07/02/19 24 07/04/2023 URINE CULTU RE urine culture colon ies/m L >100, 000 COLON Y COUNT >100, 000 Day 1 Resul t ISOLA VIKTORIA BELOW Day 2 Resul t ISOLA VIKTORIA BELOW O:ENT CPX (ORGA NISM ID: 1.1) - ENTER OBACT ER CLOAC AE COMPL EX Urine Cultu re (ORGA NISM ID: 1.1) - COLON Y COUNT (ORGA NISM ID: 1.1) - >100, 000 ORGAN ISM ID: 1.1 ANTIB IOTIC INTER PRETA TION FIOR STATU S Cefaz jenise R <=4 F Cefta zidim e S <=1 F CEFTR IAXON E S <=1 F Cipro floxa tracy S <=0.2 5 F Genta micin S <=1 F Nitro furan toin S 32 F Imipe nem S <=0.2 5 F Levof loxac in S <=0.1 2 F Tobra mycin S <=1 F Trime thopr im/Bagley lfame thoxa zole S <=20 F Piper acill in/Ta zobac alvarez S <=4 F Not Available [facility] (Registration ) [address] [place] [address] , [place], [address], 07/04/2023 07:54:50 07/02/19 24 07/02/2023 urina lysis , dipst ick pH 5.0 Not Available [address], [address], 07/02/2023 12:04:05 07/02/19 24 07/02/2023 urina lysis , dipst ick Blood Large Not Available [address], [address], 07/02/2023 12:04:05 07/02/19 24 07/02/2023 urina lysis , dipst ick Specific [place] 1.030 Not Available [address] [address], [place], [address], 07/02/2023 12:04:05 07/02/19 24 07/02/2023 urina lysis , dipst ick Glucose Negati ve Not Available [address] [address], [place], [address], 07/02/2023 12:04:05 07/02/19 24 07/02/2023 urina lysis , dipst ick Appearance Turbid Not Available [facility] - [address], [place], [address], 07/02/2023 12:04:05 07/02/19 24 07/02/2023 urina lysis , dipst ick Color Red Not Available [facility] - [address], [place], [address], 07/02/2023 12:04:05 07/12/19 24 07/12/2023 COMPL ETE BLOOD COUNT W/DIF F WBC 7.26 10_3/ uL 4.4-10 .8 normal Not Available [address] [place] [facility] [place], [address] 07/12/2023 11:00:35 07/12/19 24 07/12/2023 COMPL ETE BLOOD COUNT W/DIF F RBC 4.00 10_6/ uL 4.36-5 .78 low Not Available [address] [facility] [place], [address] 07/12/2023 11:00:35 07/12/19 24 07/12/2023 COMPL ETE BLOOD COUNT W/DIF F HGB 12.4 g/dL 13.5-1 7.5 low Not Available [address] [facility] [place], [address] 07/12/2023 11:00:35 07/12/19 24 07/12/2023 COMPL ETE BLOOD COUNT W/DIF F HCT 37.0 % 40.0-5 0.0 low Not Available [address] [place], [address] 07/12/2023 11:00:35 07/12/19 24 07/12/2023 COMPL ETE BLOOD COUNT W/DIF F MCV 93 fL 80-95 normal Not Available [address] [place], [address] 07/12/2023 11:00:35 07/12/19 24 07/12/2023 COMPL ETE BLOOD COUNT W/DIF F MCH 31.0 pg 27.0-3 3.0 normal Not Available [address] [place], [address] 07/12/2023 11:00:35 07/12/19 24 07/12/2023 COMPL ETE BLOOD COUNT W/DIF F MCHC 33.5 % 32.0-3 6.0 normal Not Available [address] [place], [address] 07/12/2023 11:00:35 07/12/19 24 07/12/2023 COMPL ETE BLOOD COUNT W/DIF F RDW 12.6 % 11.8-1 4.1 normal Not Available [address] [place], [address] 07/12/2023 11:00:35 07/12/19 24 07/12/2023 COMPL ETE BLOOD COUNT W/DIF F platelet count 359 10_3/ uL 130-40 0 normal Not Available [address] [place], [address] 07/12/2023 11:00:35 07/12/19 24 07/12/2023 COMPL ETE BLOOD COUNT W/DIF F MPV 8.3 fL 8.0-11 .0 normal Not Available [address] [place], [address] 07/12/2023 11:00:35 07/12/19 24 07/12/2023 COMPL ETE BLOOD COUNT W/DIF F neutrophils % 59.0 % Not Available [address] [place], [address] 07/12/2023 11:00:35 07/12/19 24 07/12/2023 COMPL ETE BLOOD COUNT W/DIF F lymphocytes % 30.0 % Not Available [address] [place], [address] 07/12/2023 11:00:35 07/12/19 24 07/12/2023 COMPL ETE BLOOD COUNT W/DIF F monocytes % 7.9 % Not Available [address] [place], [address] 07/12/2023 11:00:35 07/12/19 24 07/12/2023 COMPL ETE BLOOD COUNT W/DIF F eosinophils % 1.9 % Not Available [address] [place], [address] 07/12/2023 11:00:35 07/12/19 24 07/12/2023 COMPL ETE BLOOD COUNT W/DIF F basophils % 0.6 % Not Available [address] [place], [address] 07/12/2023 11:00:35 07/12/19 24 07/12/2023 COMPL ETE BLOOD COUNT W/DIF F immature grans % 0.6 % Not Available [address] [place], [address] 07/12/2023 11:00:35 07/12/19 24 07/12/2023 COMPL ETE BLOOD COUNT W/DIF F nucleated RBC 0.0 % 0.0-0. 3 normal Not Available [address] [place], [address] 07/12/2023 11:00:35 07/12/19 24 07/12/2023 COMPL ETE BLOOD COUNT W/DIF F absolute neutrophil count 4.29 10_3/ uL 1.2-6. 7 normal Not Available [address] [place], [address] 07/12/2023 11:00:35 07/12/19 24 07/12/2023 COMPL ETE BLOOD COUNT W/DIF F absolute lymphocyte count 2.18 10_3/ uL 1.2-3. 4 normal Not Available [address] [place], [address] 07/12/2023 11:00:35 07/12/19 24 07/12/2023 COMPL ETE BLOOD COUNT W/DIF F absolute monocyte count 0.57 10_3/ uL 0.1-0. 8 normal Not Available [address] [place], [address] 07/12/2023 11:00:35 07/12/19 24 07/12/2023 COMPL ETE BLOOD COUNT W/DIF F absolute eosinophil count 0.14 10_3/ uL 0.0-0. 7 normal Not Available [address] [place], [address] 07/12/2023 11:00:35 07/12/19 24 07/12/2023 COMPL ETE BLOOD COUNT W/DIF F absolute basophil count 0.04 10_3/ uL 0.0-0. 2 normal Not Available [address] [place], [address] 07/12/2023 11:00:35 07/12/19 24 07/12/2023 URINA LYSIS color Yellow yellow Not Available Alek luo [address] [place], [address] 07/12/2023 11:06:35 07/12/19 24 07/12/2023 URINA LYSIS clarity Clear clear Not Available Alek luo [address] [place], [address] 07/12/2023 11:06:35 07/12/19 24 07/12/2023 URINA LYSIS specific gravity >= 1.030 1.005- 1.025 high Not Available [address] [place], [address] 07/12/2023 11:06:35 07/12/19 24 07/12/2023 URINA LYSIS pH 5.5 5-8 normal Not Available Alek luo [address] [place], [address] 07/12/2023 11:06:35 07/12/19 24 07/12/2023 URINA LYSIS leukocyte esterase Negati ve negati ve Not Available [address] [place], [address] 07/12/2023 11:06:35 07/12/19 24 07/12/2023 URINA LYSIS nitrite Positi ve negati ve abnormal Not Available [address] [place], [address] 07/12/2023 11:06:35 07/12/19 24 07/12/2023 URINA LYSIS protein Negati ve mg/dL neg-tr jamila Not Available [address] [place], [address] 07/12/2023 11:06:35 07/12/19 24 07/12/2023 URINA LYSIS glucose Negati ve mg/dL negati ve Not Available [address] [place], [address] 07/12/2023 11:06:35 07/12/19 24 07/12/2023 URINA LYSIS ketones Negati ve mg/dL negati ve Not Available [address] [place], [address] 07/12/2023 11:06:35 07/12/19 24 07/12/2023 URINA LYSIS urobilinogen 0.2 mg/dL up to 0.2 Not Available [address] [place], [address] 07/12/2023 11:06:35 07/12/19 24 07/12/2023 URINA LYSIS bilirubin Negati ve negati ve Not Available [address] [place], [address] 07/12/2023 11:06:35 07/12/19 24 07/12/2023 URINA LYSIS blood Negati ve negati ve Not Available [address] [place], [address] 07/12/2023 11:06:35 07/12/19 24 07/12/2023 URINA LYSIS color Yellow yellow Not Available [facility] [address] [place], [id number] 07/12/2023 11:13:38 07/12/19 24 07/12/2023 URINA LYSIS clarity Clear clear Not Available [facility] [address] [place], [address] 07/12/2023 11:13:38 07/12/19 24 07/12/2023 URINA LYSIS specific gravity >= 1.030 1.005- 1.025 high Not Available [address] [place], [address] 07/12/2023 11:13:38 07/12/19 24 07/12/2023 URINA LYSIS pH 5.5 5-8 normal Not Available [facility] [address] [place], [address] 07/12/2023 11:13:38 07/12/19 24 07/12/2023 URINA LYSIS leukocyte esterase Negati ve negati ve Not Available [address] [place], [address] 07/12/2023 11:13:38 07/12/19 24 07/12/2023 URINA LYSIS nitrite Positi ve negati ve abnormal Not Available [address] [place], [address] 07/12/2023 11:13:38 07/12/19 24 07/12/2023 URINA LYSIS protein Negati ve mg/dL neg-tr jamila Not Available [address] [place], [address] 07/12/2023 11:13:38 07/12/19 24 07/12/2023 URINA LYSIS glucose Negati ve mg/dL negati ve Not Available [address] [place], [address] 07/12/2023 11:13:38 07/12/19 24 07/12/2023 URINA LYSIS ketones Negati ve mg/dL negati ve Not Available [address] [place], [address] 07/12/2023 11:13:38 07/12/19 24 07/12/2023 URINA LYSIS urobilinogen 0.2 mg/dL up to 0.2 Not Available [address] [place], [address] 07/12/2023 11:13:38 07/12/19 24 07/12/2023 URINA LYSIS bilirubin Negati ve negati ve Not Available [address] [place], [id number] 07/12/2023 11:13:38 07/12/19 24 07/12/2023 URINA LYSIS blood Negati ve negati ve Not Available [address] [place], [address] 07/12/2023 11:13:38 07/12/19 24 07/12/2023 MICRO SCOPI C FINDI NGS WBC 5-10 hpf 0-5 Not Available [facility] [address] [place], [address] 07/12/2023 11:13:38 07/12/19 24 07/12/2023 MICRO SCOPI C FINDI NGS RBC 0-2 hpf 0-2 Not Available Alek luo [address] [place], [address] 07/12/2023 11:13:38 07/12/19 24 07/12/2023 MICRO SCOPI C FINDI NGS epithelial cells Rare hpf negati ve Not Available [address] [place], [address] 07/12/2023 11:13:38 07/12/19 24 07/12/2023 MICRO SCOPI C FINDI NGS bacteria Few hpf negati ve Not Available [address] [place], [address] 07/12/2023 11:13:38 07/12/19 24 07/12/2023 MICRO SCOPI C FINDI NGS crystals Negati ve hpf negati ve Not Available [address] [place], [address] 07/12/2023 11:13:38 07/12/19 24 07/12/2023 MICRO SCOPI C FINDI NGS mucus Negati ve negati ve Not Available [address] [place], [address] 07/12/2023 11:13:38 07/12/19 24 07/12/2023 MICRO SCOPI C FINDI NGS casts Negati ve lpf negati ve Not Available [address] [place], [address] 07/12/2023 11:13:38 07/12/19 24 07/12/2023 MICRO SCOPI C FINDI NGS C S indicated? C S Done As Ordere d Not Available Cameron [address] [place], [address] 07/12/2023 11:13:38 07/12/19 24 07/12/2023 COMPR EHENS MARGE METAB OLIC PANEL calcium 9.0 mg/dL 8.5-10 .1 normal Not Available [address] [place], [address] 07/12/2023 11:22:39 07/12/19 24 07/12/2023 COMPR EHENS MARGE METAB OLIC PANEL glucose 112 mg/dL 74-106 high Not Available Alek luo [address] [place], [address] 07/12/2023 11:22:39 07/12/19 24 07/12/2023 COMPR EHENS MARGE METAB OLIC PANEL BUN 23 mg/dL 7-18 high Not Available Alek luo [address] [place], [address] 07/12/2023 11:22:39 07/12/19 24 07/12/2023 COMPR EHENS MARGE METAB OLIC PANEL creatinine 1.2 mg/dL 0.70-1 .30 normal Not Available [address] [place], [address] 07/12/2023 11:22:39 07/12/19 24 07/12/2023 COMPR EHENS MARGE METAB OLIC PANEL estimated GFR 63.46 mL/min /1.73m 2 The eGFR is calcu lated from a serum creat inine using the CKD-E PI 2020 equat ion. Other varia bles requi red for the equat ion are gende r and age; this equat ion does not inclu de a race coeff icien t. This equat ion has simil ar overa ll perfo rmanc e to previ ous equat ions excep t value s may diffe r, in parti cular , in patie nts with highe r value s of eGFR and young er-ag ed adult s. Not Available [address] [place], [address] 07/12/2023 11:22:39 07/12/19 24 07/12/2023 COMPR EHENS MARGE METAB OLIC PANEL total protein 7.9 g/dL 6.4-8. 2 normal Not Available [address] [place], [address] 07/12/2023 11:22:39 07/12/19 24 07/12/2023 COMPR EHENS MARGE METAB OLIC PANEL albumin 3.7 g/dL 3.4-5. 0 normal Not Available [address] [place], [address] 07/12/2023 11:22:39 07/12/19 24 07/12/2023 COMPR EHENS MARGE METAB OLIC PANEL bilirubin, total 0.4 mg/dL 0.2-1. 0 normal Not Available [address] [place], [address] 07/12/2023 11:22:39 07/12/19 24 07/12/2023 COMPR EHENS MARGE METAB OLIC PANEL alk phos 76 U/L 46-116 normal Not Available [address] [place], [address] 07/12/2023 11:22:39 07/12/19 24 07/12/2023 COMPR EHENS MARGE METAB OLIC PANEL sodium 142 mmol/ L 136-14 5 normal Not Available [address] [place], [address] 07/12/2023 11:22:39 07/12/19 24 07/12/2023 COMPR EHENS MARGE METAB OLIC PANEL potassium 3.9 mmol/ L 3.5-5. 1 normal Not Available [address] [place], [address] 07/12/2023 11:22:39 07/12/19 24 07/12/2023 COMPR EHENS MARGE METAB OLIC PANEL chloride 106 mmol/ L 98-107 normal Not Available [address] [place], [address] 07/12/2023 11:22:39 07/12/19 24 07/12/2023 COMPR EHENS MARGE METAB OLIC PANEL CO2 25.1 mmol/ L 21.0-3 2.0 normal Not Available [address] [place], [address] 07/12/2023 11:22:39 07/12/19 24 07/12/2023 COMPR EHENS MARGE METAB OLIC PANEL anion gap 10.9 mmol/ L 3-11 normal Not Available [address] [place], [address] 07/12/2023 11:22:39 07/12/19 24 07/12/2023 COMPR EHENS MARGE METAB OLIC PANEL AST 24 U/L 15-37 normal Not Available Alek luo [address] [place], [address] 07/12/2023 11:22:39 07/12/19 24 07/12/2023 COMPR EHENS MARGE METAB OLIC PANEL ALT 33 U/L 16-63 normal Not Available Alek luo [address] [place], [address] 07/12/2023 11:22:39 07/12/19 24 07/13/2023 URINE CULTU RE urine culture Urine Cultu re APPEA FARTUN Gram Posit marge [place] COLON Y COUNT Not Available [address] [place], [address] 07/13/2023 11:32:49 07/12/19 24 07/13/2023 URINE CULTU RE urine culture colon ies/m L <10,0 00 Day 1 Resul t ISOLA VIKTORIA BELOW O:GPF (ORGA NISM ID: 1.1) - GRAM POSIT MARGE R[place] Urine Cultu re (ORGA NISM ID: 1.1) - COLON Y COUNT (ORGA NISM ID: 1.1) - <10,0 00 Not Available [address] [place], [address] 07/13/2023 11:32:49 07/12/19 24 07/14/2023 URINE CULTU RE urine culture Urine Cultu re APPEA FARTUN Gram Posit marge [place] APPEA FARTUN Mixed Gram Posit marge [place] COLON Y COUNT Not Available [address] [place], [address] 07/14/2023 12:09:33 07/12/19 24 07/14/2023 URINE CULTU RE urine culture colon ies/m L <10,0 00 COLON Y COUNT <10,0 00 Day 1 Resul t ISOLA VIKTORIA BELOW Day 2 Resul t ISOLA VIKTORIA BELOW O:GPF M (ORGA NISM ID: 1.1) - GRAM POSIT MARGE [place] ,MIXE D Urine Cultu re (ORGA NISM ID: 1.1) - COLON Y COUNT (ORGA NISM ID: 1.1) - <10,0 00 Not Available [address] [place], [address] 07/14/2023 12:09:33 07/12/1907/14/2023 PSA, ULTRA SENSI TIVE PSA, ultrasensiti ve 0.01 NG/mL <= 6.5 ----- ----- ----- ----A DDITI ONAL INFOR MATIO N---- ----- ----- ----- INTER PRETA TION: After radic al prost atect alton, serum PSA robert ntrat ions shoul d decre ase and remai n at undet ectab le level s. The Ameri can Urolo gical Assoc iatio n defin es bioch emica l recur rence as an initi al PSA robert ntrat ion >=0.2 0 ng/mL follo wed by a subse quent confi rmato ry PSA robert ntrat ion >=0.2 0 ng/mL . PLEAS E NOTE: The above refer ence inter neo and myron ing is inten ded for healt hy males witho ut prost atect alton. The testi ng metho d is an elect [facility] inesc ence assay manuf actur ed by [employer] and perfo rmed on the Barrett syste m. Value s obtai radha with diffe rent assay metho ds or kits may be diffe rent and canno t be used inter sang varghese . Test resul ts canno t be inter prete d as absol inupiat evide nce for the prese nce or absen ce of molly barbosa se. Test Perfo rmed by: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 50216025186 103 Active 2019 Problem Code: G24.01; Problem Code Type: ICD-10; MD Joe [address], [address] [place] [address] 3 23:01:29 Prediabe viktoria 009234156 Active 2020 Problem Code: R73.03; Problem Code Type: ICD-10; MD Joe [address], [facility] [address] [place] [address] 4 13:24:34 Screenin g for malignan t neoplasm of colon Completed 202002/18/2021 Problem Code: Z12.11; Problem Code Type: ICD-10; Not Available [facility] 3 04:02:01 Insomnia 230718119 Active 2021 Problem Code: G47.00; Problem Code Type: ICD-10; LAINE WELLER, [facility] 3 09:57:48 Adult health examinat ion Active 2021 Problem Code: Z00.00; Problem Code Type: ICD-10; MD Joe [address], [facility] [address] [place] [address] 4 13:24:20 Pain of toe of right foot 93604785624 9101 Completed 202107/17/2021 Problem Code: M79.674; Problem Code Type: ICD-10; Not Available [facility] 3 04:02:02 Closed fracture of distal end of radius 60273480 Completed 202104/27/2022 Problem Code: S52.572A ; Problem Code Type: ICD-10; Not Available [facility] 3 04:02:02 Pre-surg arnie evaluati on Completed 202207/02/2022 Problem Code: Z01.818; Problem Code Type: ICD-10; Not Available [facility] 3 04:02:02 Bipolar disorder 78400313 Completed 200212/01/2022 Problem Code: 296.80; Problem Code Type: ICD-9; Not Available [facility] 3 04:02:11 Therapeu tic drug monitori ng assay 89753196 Completed 201505/29/2021 Problem Code: Z51.81; Problem Code Type: ICD-10; Not Available [facility] 3 04:02:11 Pain of left wrist 20688875921 9102 Completed 202102/15/2022 Problem Code: M25.532; Problem Code Type: ICD-10; Not Available [facility] 3 04:02:11 Pain of left elbow joint 06584678552 856259 Completed 201905/27/2020 Problem Code: M25.522; Problem Code Type: ICD-10; Not Available [facility] 3 04:02:12 Garrison hematuri a 588841986 Completed 201605/13/2016 Problem Code: R31.0; Problem Code Type: ICD-10; Not Available [facility] 3 04:02:13 Prostate nodule 32334863027 9109 Completed 201612/01/2022 Problem Code: N40.2; Problem Code Type: ICD-10; Not Available [facility] 3 04:02:13 Lacerati on of lip 496259043 Completed 202012/02/2020 Problem Code: S01.511A ; Problem Code Type: ICD-10; Not Available [facility] 3 04:02:14 Bleeding from nose 665989653 Completed 201802/05/2020 Problem Code: R04.0; Problem Code Type: ICD-10; Not Available [facility] 3 04:02:14 Contusio n of head 869468583 Completed 202012/02/2020 Problem Code: S00.83xA ; Problem Code Type: ICD-10; Not Available [facility] 3 04:02:14 Lesion of oral mucosa 16666828962 63748 Completed 201912/02/2020 Problem Code: K13.79; Problem Code Type: ICD-10; Not Available [facility] 3 04:02:14 Subungua l hematoma of foot 740224369 Completed 202205/11/[address], [facility] [address] , [facility] 13:24:53 Ingrowin g toenail 032615821 Completed 202305/11/2023 right MD [address], [place] [address] , [facility] 13:25:10 Epidermo id cyst of skin 647993603 Completed 202305/15/[address], [place] [address] , [facility] 19:01:09 Allergic rhinitis 46753458 Active [address], [facility] [address] , [facility] 13:24:22 Tension- type headache 184383130 Active [address], [facility] [address] , [facility] 19:01:02 Disorder of vision 11633467 Completed 202305/15/[address], [facility] [address] , [facility] 4 19:01:05 Dental abscess 386342581 Active 2023 SORAYA HOLDER PA-C [address], [place], [address] , [facility] 4 13:17:37 Blood in urine 89933191 Active [address], [place], [address] , [facility] 4 14:03:17 Unsteady when walking 92223978 Active 2023 SORAYA HOLDER PA-C [address], [place], [address] , [facility] 4 15:05:09 Problem Notes Documentation Provider Name and Address Organization Details Recorded Time Progress Note : Progress Notes PATIENT NAME: Nain Mckeon UNIT #: [id number] ADMITTING PROVIDER: Angelica Catalan, PT, SCS, ATC ACCO UNT #: [id number] PRIMARY CARE PROVIDER: Dewayne Johnson M.D. DATE OF ADMIT: 10/28/23 : 1950 Supervising Provider: Angelica Catalan PT Diagnosis: Tension headaches MD Diagnosis: Tension headaches Weeks Elapsed: week(s) and 0 day(s) Patient Location: Physical Therapy - [facility] Referring Provider: Dewayne Johnson Date of Service: October 28, 2023 9:04 am PT Notes Visit Reasons: PT TENSION HEADACHE PT Progress Note 08/24/2023 through 11/24/2023 Subjective: 2 light headaches in past week but went away shortly after getting up. Started Pilates class Pt reports stretching with the towel seems to result in the best improvement. History of present illness: A 72-year-old male who developed insidious onset of occipital headaches approximately 3 months ago. He recently undergone radiation and hormonal treatments for his prostate cancer. He notes that his symptoms have decreased in frequency and intensity compared to 1 month ago. Pain ratin-2/10 on VAS tension when stretches looking over the shoulder Pain location: Posterior aspect the cervical spine as well as the occiput bilaterally Objective: Posture: Has a thoracic kyphosis with cervical lordosis and forward head posturing and protracted scapula Palpation: increased tone throughout the suboccipital area, supraspinatus fossa, Paraspinals, scalenes. Range of motion: His active cervical spine motion is limited in all planes with RR 55 degrees RL 55 and sidebending right at 20 degrees and SBL 25 degrees he strains to achieve ROM. Extension 25 degrees , flexion 25. Bilateral shoulder motion reveals good initiation of flexion abduction without scapular substitution and has full range. Some mild endrange sh discomfort on the left. His thumbs are at the T8 level and reach behind his back he is right-hand dominant. External rotation 60 degrees bilaterally. Joint accessory motion: Restricted PA glides of thoracic. C-spine lateral glides is quite restricted 2/6 lateral glides. Restricted mobility suboccipital with increased density suboccipital. Strength: He tolerates good resistance to rotator cuff without reproduction of his symptoms Special test: Negative Spurling's test Treatment: Manual therapy:? ([id number]) Hands-on techniques to modulate pain increase joint range of motion reduce or eliminate soft tissue swelling, inflammation, or restriction facilitate relaxation and improve contractile and non-contractile tissue extensibility Treatment: Passive c-spine ROM in supine, manual traction, segmental gliding and then stretching into sidebending rotation while performing downward glides on the cervical vertebrae . OA release . STM paraspinals, UT, levator He was also issued written illustrated home exercise program for cervical and pectoralis stretches and postural correction. Maintain for reference Access Code: [email or web address] URL: [email or web address]://[employer]/ Date: 10/21/2023 Prepared by: Angelica Catalan Exercises - Seated Assisted Cervical Rotation with Towel - 5 x daily - 7 x weekly - 1 sets - 2 reps - 10 hold - Seated Scapular Retraction - 5 x daily - 7 x weekly - 1 sets - 1 reps - 5 hold - Standing Shoulder Row with Anchored Resistance - 1 x daily - 7 x weekly - 2 sets - 10 reps - 5 hold - Gentle Levator Scapulae Stretch - 2 x daily - 7 x weekly - 1 sets - 5 reps - 5 hold Review of levator stretching making sure not to have ? Access Code: [email or web address] URL: https://[employer]/ Date: 10/14/2023 Prepared by: Linda Antonio Exercises - Seated Scapular Retraction - 1 x daily - 7 x weekly - 3 sets - 10 reps - Shoulder External Rotation and Scapular Retraction with Resistance - 1 x daily - 7 x weekly - 3 sets - 10 reps - Supine Cervical Retraction with Towel - 1 x daily - 7 x weekly - 3 sets - 10 reps Assessment: Patient is a 72-year-old male referred for PT services diagnosis of tension headaches. Patient presented with limited c-spine ROM, restricted soft tissue mobility, forward head, thoracic kyphosis which may be reason for headaches. He has had good results with 1 week no h=eadaches and last week mild x 2. He is progressing quite well with improved cervical ROM, decreased tightness of suboccipital, UT, levator with left side still slightly restricted, decreased c/o headaches x2 weeks, indep with HEP with most benefit from towel stretches in supine. Short-term goals: 6 weeks MET Increased range of motion cervical spine in all planes particular the OA articulation along with clearing out trigger points and stretching his pecs, etc. to minimize occipital headaches with all functional tasks, progressing towards. Long-term goals: 12 weeks Return to full, pain-free, functional mobility Independent with self maintenance program Plan: Patient be seen 1x/ week for 4 weeks, adjusting frequency of visits per patient's visits and response to treatment. Treatment to include: Manual therapy: 09632 Therapeutic exercise: 99022 Add functional activity 04550 as able. Working on restoring normal movement patterns. Modification of program to decrease activation of paraspinals UT and work gradually on pectoral stretch single arm, t-band rows only if can disassociate from UT, passive c-spine ROM as able. Care may be provided by CUSTOMER CONSULTANT and POC has been discussed with CUSTOMER CONSULTANT. Disclaimer: This note was created using [employer] voice recognition software. It was reviewed for major content. However, there may be multiple small discrepancies and errors due to the voice recognition aspects of the software. [facility] Treatment time: 45' CC: Dictated by: Angelica Catalan PT, SCS, ATC Dictated: 10/28/23 Time: 903 Date: Time: 2210 Transcribed Date: 10/28/23 Transcribed Time: 903 By: JESSICA This is privileged, confidential information, intended only for the provider named. Any use or distribution by any person other than this provider is strictly prohibited. If you receive this report in error, please notify us immediately at [phone] and return the original report to us at the address above. Thank you. LAINE LEON, [facility] 11/04/2023 16:18:21 Procedures Surgical History Date Name Laterality Status Provider Name and Address Organization Details Recorded Time 01/21/20 23 transurethral biopsy of prostate completed PABLO HITCHCOCK RN [facility] 02/01/2023 08:36:09 Imaging Results Imaging Date Name Status LastModified by Organization Details LastModified Time 04/01/2023 electrocardiogram completed aurelio Gutierrez [address] [place], [address] 04/03/2023 11:10:45 04/01/2023 vrad report completed aurelio [address] [place], [address] 04/03/2023 11:10:46 04/01/2023 [facility] [address] [place], [address] 04/03/2023 11:10:46 04/01/2023 ED visit note completed aurelio Barnes [address] [place], [address] 04/03/2023 11:10:45 04/02/2023 mental health crisis note completed aurelio [address] [place], [address] 04/03/2023 11:10:46 04/02/2023 x-ray imaging report completed aurelio weaver [address] [place], [address] 04/03/2023 11:10:46 04/02/2023 CT imaging report completed [address] [place], [address] 04/03/2023 11:10:47 04/02/2023 ED progress note completed [address] [place], [address] 04/03/2023 11:10:47 04/02/2023 ED progress note completed [address] [place], [address] 04/03/2023 11:10:47 04/02/2023 mental health progress note completed [address] [place], [address] 04/03/2023 11:10:48 04/02/2023 ED progress note completed [address] [place], [address] 04/03/2023 14:12:24 04/01/2023 electrocardiogram completed [address] [place], [address] 04/04/2023 17:10:23 Procedure Notes None recorded. Medical [...] of liquid. Take as needed. 12/03 completed [facility] Not Available Not Available Not Available methocarb sugey 500 mg tablet Take 1 tab by mouth three times daily 04/23 completed Not Available Not Available Not Available lamotrigi ne 150 mg tablet TAKE ONE TABLET BY MOUTH EVERY DAY active Not Available Not Available No t Available bicalutam desi 50 mg tablet Take 1 tablet by mouth daily 06/[address] [facility] Not Available Not Available Not Available nystatin [...] 1 tab by mouth daily. 08/[address] [facility] Not Available Not Available Not Available metronida zole 500 mg tablet Take 1 tablet every 8 hours by oral route for 10 days. 05/29 /2024 completed Not Available Not Available Not Available propranol ol 60 mg tablet Take 1 tablet by mouth once a day for tremor 12/02 completed [facility] Not Available Not Available Not Available hydroxyzi ne HCl 50 mg tablet Take 1 tab by mouth at HS as needed 11/15 completed [facility] Not Available Not Available Not Available olanzapin e 2.5 mg tablet Take 1 tab by mouth daily. for total 12.5 mg 08/03 completed [facility] Not Available Not Available Not Available lamotrigi ne 25 mg tablet 1 tab daily with a 200 mg tab for total of 225 mg daily 02/18 completed Not Available Not Available Not Available levothyro xine 75 mcg tablet TAKE ONE TABLET BY MOUTH EVERY DAY active Not Available Not Available No t Available [facility] Levothyro xine Sodium 50 mcg tablet [...] nightly as needed for anxiety 12/03 completed [facility] Not Available Not Available Not Available benztropi ne 2 mg tablet Take 1 tab by mouth daily 12/03 completed [facility] Not Available Not Available Not Available betametha [...] by mouth daily at bedtime [address] [facility] Not Available Not Available Not Avai lable [...] e 50 mcg/actua tion nasal spray,mayra pension [place] 1 spray twice a day by intranas [...] active Not Available Not Available Not Avai labhiral FIRST-Yumiko thwash BLM 5 ml swish and swallow TID 05/27 completed Not Available Not Available Not Available Tussin CF (PE-DM-gu aif) 5 mg-10 mg-100 mg/5 [...] by mouth once a day active [facility] human services Not Available Not Available Not [...] at bedtime as needed 02/01 completed Jillian martinez Not Available Not Available Not Available duloxetin [...] Updated DateTime 4 160.66 cm 32.5 kg/m2 84393.5 9 g 97.2 [degF] 74 /min 98 % 98 % 128 mm[Hg] 76 mm[Hg] JOHNNIE WHITEHEAD [facility] 4 08:15:06 Date Recorded Body height Body mass index (BMI) Body weight Body temperature Oxygen saturation Oxygen saturation in Arterial blood by Pulse oximetry Heart rate Systolic blood pressure Diastolic blood pressure Provider Name and Address Organization Details Last Updated DateTime 4 160.66 cm 32.9 kg/m2 57097.7 7 g 97.6 [degF] 98 % 98 % 78 /min 126 mm[Hg] 84 mm[Hg] JOHNNIE WHITEHEAD MA [facility], [facility]. 4 11:22:22 Date Recorded Body height Body mass index (BMI) Body weight Body temperature Oxygen saturation Oxygen saturation in Arterial blood by Pulse oximetry Heart rate Systolic blood pressure Diastolic blood pressure Provider Name and Address Organization Details Last Updated DateTime 4 160.66 cm 32.9 kg/m2 83876.7 7 g 97.3 [degF] 98 % 98 % 78 /min 130 mm[Hg] 78 mm[Hg] JOHNNIE WHITEHEAD MA [facility], [facility]. 4 14:18:32 Date Recorded Body height Body mass index (BMI) Body weight Body temperature Respiratory rate Oxygen saturation Oxygen saturation in Arterial blood by Pulse oximetry Heart rate Systolic blood pressure Diastolic blood pressure Provider Name and Address Organization Details Last Updated DateTime 4 160.66 cm 32.9 kg/m2 35963.7 7 g 99.9 [degF] 17 /min 94 % 94 % 102 /min 138 mm[Hg] 75 mm[Hg] Janae Serrano RN [facility], [facility]. 4 11:47:14 Date Recorded Body height Body mass index (BMI) Body weight Body temperature Oxygen saturation Oxygen saturation in Arterial blood by Pulse oximetry Heart rate Systolic blood pressure Diastolic blood pressure Provider Name and Address Organization Details Last Updated DateTime 4 160.66 cm 31.5 kg/m2 66527.0 3 g 97.2 [degF] 97 % 97 % 78 /min 120 mm[Hg] 80 mm[Hg] JOHNNIE WHITEHEAD MA [facility], [facility]. 4 11:08:14 Social History Question Answer Notes LastModified by Organizat ion Details LastModified Time Tobacco Smoking Status Former Smoker couple years in college [facility]. 02/17/2023 13:45:19 Do You Have An Advance [...] Or The Highest Degree You Have Received? 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 No Paperwork Given Information not available 02/17/2023 [...] Age of this Age Resolved Age Notes LastModified by Organization Details LastModified Time Mother Family history of cancer of colon [email or web address] Not available 2022 03:58:51 Notes:*Problem: Mother had c olon CA in 60's and from vascular problems age 80's Father had Alzheimer's and arterial stenosis of cardiac arteries. in 80's No family hx AODM. Medical History No medical history recorded. Immunizations Vaccine Type Date Status Provider Name and Address Organization Details Recorded Time Td (adult), 2 Lf tetanus toxoid, preservative free, adsorbed 07/26/2017 completed Not Available [facility] 01/14/2023 04:07:01 Tdap 01/25/2007 completed Not Available [facility] 04:07:03 zoster live 09/21/2011 completed Not Available [facility] 01/14/2023 04:07:03 Pneumococcal conjugate PCV 13 06/19/2015 completed Not Available [facility] 01/14/2023 04:07:04 Influenza, high-dose, trivalent, PF 12/08/2017 completed Not Available [facility] 01/14/2023 04:07:04 Influenza, split virus, trivalent, preservative 02/11/2016 completed Not Available [facility] 01/14/2023 04:07:05 Influenza, split virus, quadrivalent, preservative 11/26/2016 completed Not Available [facility] 01/14/2023 04:07:05 Influenza, high-dose, quadrivalent, PF 12/02/2020 completed Not Available [facility] 01/14/2023 04:07:06 Influenza, high-dose, quadrivalent, PF 12/04/2019 completed Not Available [facility] 01/14/2023 04:07:06 Influenza, high-dose, quadrivalent, PF 12/14/2021 completed Not Available [facility] 01/14/2023 04:07:06 COVID-19, mRNA, LNP-S, PF, 100 mcg/0.5mL dose or 50 mcg/0.25mL dose 05/30/2020 completed Not Available [facility] 01/14/2023 04:07:07 COVID-19, mRNA, LNP-S, PF, 100 mcg/0.5mL dose or 50 mcg/0.25mL dose 01/07/2021 completed Not Available [facility] 01/14/2023 04:07:07 SARS-COV-2 (COVID-19) vaccine, UNSPECIFIED 05/02/2020 completed Not Available [facility] 01/14/2023 04:07:07 SARS-COV-2 (COVID-19) vaccine, UNSPECIFIED 06/23/2021 completed Not Available [facility] 01/14/2023 04:07:08 SARS-COV-2 (COVID-19) vaccine, UNSPECIFIED 12/14/2021 completed Not Available [facility] 01/14/2023 04:07:08 Pneumococcal conjugate PCV20, polysaccharide [id number] conjugate, adjuvant, PF 07/27/2022 completed Not Available [facility] 01/14/2023 04:07:08 COVID-19, mRNA, LNP-S, bivalent, PF, 30 mcg/0.3 mL dose 07/27/2022 completed Not Available [facility] 01/15/20 04:07:08 pneumococcal polysaccharide PPV23 05/24/2014 completed Not Available [facility] 2022 04:07:09 influenza, unspecified formulation 01/22/2019 completed Not Available [facility] 01/14/2023 04:07:11 SARS-COV-2 (COVID-19) vaccine, UNSPECIFIED 01/03/2023 completed [facility] 02/17/2023 13:55:11 influenza, unspecified formulation 11/18/2022 completed [facility] 02/17/2023 13:55:44 Influenza, high-dose, quadrivalent, PF 11/18/2022 completed Not Available [facility] 03/18/2023 05:33:19 Past Encounters Encounter ID Performer Location Encounter Start Date Encounter Closed Date Diagnosis/Indication Diagnosis SNOMED-CT Code Diagnosis ICD10 Code [id number] DEWAYNE JOHNSON MD [address] [address] 02/17/2023 13:26:31 02/17/2023 15:28:29 Adult health examination 877631141 Z00.00 Bipolar II disorder 8322 5003 F31.81 Malignant tumor of prostate 888093536 C61 Hypothyroidism 13814679 E03.9 Hyperlipidemia 85969774 E78.5 [id number] SORAYA HOLDER PA-C [address] [address] 03/04/2023 10:45:49 03/04/2023 14:27:34 Subungual hematoma of foot 163445783 S90.221A [id number] DEWAYNE JOHNSON MD [address] [address] 03/24/2023 08:05:25 03/24/2023 09:01:46 Epidermoid cyst of skin 558215972 L72.0 [id number] DEWAYNE JOHNSON MD [address] [address] 05/05/2023 10:51:25 05/05/2023 12:35:01 Body mass index 30+ - obesity 875932006 Z68.32 Allergic rhinitis 187354 04 J30.9 [id number] DEWAYNE JOHNSON MD [address] [address] 05/11/2023 13:53:04 05/11/2023 14:45:32 Tension-type headache 205480544 G44.209 Disorder of vision 25902 002 H53.9 [id number] SORAYA HOLDER PA-C [address] [address] 07/02/2023 11:03:20 07/02/2023 13:31:12 Blood in urine 36806603 R31.9 Dental abscess 013718170 K04.7 Unsteady when walking 22 376749 R26.89 [id number] DEWAYNE JOHNSON MD [address] [address] 08/03/2023 10:49:43 08/03/2023 11:38:20 Tension-type headache 868038991 G44.209 Health Concerns Section Related Observation LastModified by Organization Detai ls LastModified Time None Recorded Concern Status LastModified by Organization Details LastModified Time None Recorded Advance Directives Directive N: Payers Encounter Date Sequence Insurance Name Policy Number Policy Walker Covered Member ID Walker Member ID Guarantor Name 03/24/2023 2 [employer] (MEDICARE SUPPLEMENT) Nain Mckeon [id number] Nain Mckeon 03/24/2023 1 [place] [employer] Nain Mckeon [id number] Nain Mckeon 05/05/2023 2 [employer] (MEDICARE SUPPLEMENT) Nain Mckeon [id number] Nain Mckeon 05/05/2023 1 [place] [employer] [employer] Nain Mckeon [id number] Nain Mckeon 05/11/2023 2 [employer] (MEDICARE SUPPLEMENT) Nain Mckeon [id number] Nain Mckeon 05/11/2023 1 [place] [employer] Nain Mckeon [id number] aNin Mckeon 07/02/2023 2 [employer] (MEDICARE SUPPLEMENT) Nain Mckeon [id number] Nain Mckeon 07/02/2023 1 [place] [employer] Nain Mckeon [id number] Nain Mckeon 08/03/2023 2 [employer] (MEDICARE SUPPLEMENT) Nain Mckeon [id number] Nain Mckeon 08/03/2023 1 [place] [employer] Nain Mckeon [id number] Nain Mckeon Notes Date Note Type [...] a month ago MD [address], [place], [address], [facility]. 03/24/2023 08:33:48 05/05/2023 text/html HPI Notes: Rafi [...] some seasonal allergies. MD [address], [place], [address], [facility]. 05/09/2023 00:07:32 05/11/2023 text/html HPI Notes: Rafi demarco is complaining what sound like tension headaches. Some tension in his neck and occipital area. Worse last few days. Does admit this is worse when he turns head left and right. There is nothing anterior. He has had no recent trauma or illness. States vision is a little cloudy, has not seen an subsurface augmentee operator for some time. No fevers chills or illness. The Flonase we suggested last visit he states is helping his sinus congestion. No peripheral neurologic symptoms such as numbness weakness or tingling MD [address], [place], [address], [facility], [facility]. 05/15/2023 19:02:03 07/02/2023 text/html HPI Notes: [...] infection. He recently started high-dose radiation in [place] for prostate cancer. First treatment was on [...] with urination. Has passed a few clots. [address], [place], [address], [facility]. 07/02/2023 15:07:48 08/03/2023 text/html HPI Notes: Nain [...] symptoms. DEWAYNE JOHNSON MD [address], [place], [address], [facility]. 08/07/2023 12:50:52
--- OUTSIDE RECORDS SUMMARY | 2023-11-19 09:23 | XMS_ITS | Encounter Summary ---
Author Organization [facility] Address [facility] [place] [address] Care Team Providers Care District Plant Engineer Name Role Phone Celio Sanders MD Primary Care Provider [phone] Reason for Visit * Reason Onset Date Comments Headache 05/11/2023 Encounter Details Date Type Department Care Team (Late st Contact Info) Description 05/11/2023 Telephone Hematology/Oncology at [address] [address] Yenny Pavon RN Headache Social History Tobacco Use Types Packs/Day Years Used Date Smoking Tobacco: Never Smokeless Tobacco: Never Alcohol Use Standard Drinks/Week Comments Not Currently 0 (1 standard drink = 0.6 oz pur e alcohol) beer and wine twice a month [facility] Utilities Answer Date Recorded In the [...] Care Team (Late st Contact Info) Description 01/24/2024 2:00 PM EST Office Visit Dermatology at [facility] [address] [place] [address] Prisca Hughes MD [facility] [address] [place] [address] documented as of this encounter Visit Diagnoses Not on filedocumented in this encounter Care Teams District Plant Engineer Relationship Specialty Start Date End Date Celio Sanders MD [address] [place] [address] PCP - General Internal Medicine 05/19/16 documented as of this encounter
--- OUTSIDE RECORDS SUMMARY | 2023-11-19 09:23 | XMS_ITS | Encounter Summary ---
Author Organization [facility] Address [facility] [place] [address] Care Team Providers Care Electromyographic Technician Name Role Phone Celio Sanders MD Primary Care Provider [phone] Encounter Details Date Type Department Care Team (Late st Contact Info) Description 04/25/2023 Telephone Hematology/Oncology at [address] [address] Hanny Laureano Social History Tobacco Use Types Packs/Day Years Used Date Smoking Tobacco: Never Smokeless Tobacco: Never Alcohol Use Standard Drinks/Week Comments Not Currently 0 (1 standard drink = 0.6 oz pur e alcohol) beer and wine twice a month [facility] Utilities Answer Date Recorded In the [...] time. Had labs done last week at [facility] documented in this encounter Plan of Treatment Upcoming Encounters Date Type Department Care Team (Late st Contact Info) Description 01/24/2024 2:00 PM EST Office Visit Dermatology at [facility] [address] [place] [address] Prisca Hughes MD [facility] [address] [place] [address] documented as of this encounter Visit Diagnoses Not on filedocumented in this encounter Care Teams Electromyographic Technician Relationship Specialty Start Date End Date eClio Sanders MD [address] [place] [address] PCP - General Internal Medicine 05/19/16 documented as of this encounter
--- OUTSIDE RECORDS SUMMARY | 2023-11-19 09:23 | XMS_ITS | Encounter Summary ---
[place] [address] Care Team Providers Care Signal Manager Name Role Phone Celio Sanders MD Primary Care Provider [phone] Reason for Visit * Reason Comments Injections Lupron * Treatment/Therapy Plan Authorization (Routine) - Authorized Specialty Diagnoses / Procedures Referred By Contac t Referred To Contact Hematology and Oncology Diagnoses Recurrent prostate cancer Procedures TC LEUPROLIDE ACETATE 7.5MG, FOR DEPOST SUSPENSION (LUPRON DEPOT) Ronnie Vazquez MD [address] [place] [address] [place] [address] [facility] [address] [place] [address] Referral ID Status Reason Start Date Expiration Date V isits Requested Visits Authorized [id number] Authorized 02/17/2023 02/17/2024 1 103 Encounter Details Date Type Department Care Team (Late st Contact Info) Description 04/26/2023 10:30 AM EST Infusion Hematology Oncology at [address] [phone] Recurrent prostate cancer Social History Tobacco Use Types Packs/Day Years Used Date Smoking Tobacco: Never Smokeless Tobacco: Never Alcohol Use Standard Drinks/Week Comments Not Currently 0 (1 standard drink = 0.6 oz pur e alcohol) beer and wine twice a month [facility] Utilities Answer Date Recorded In the past 12 months has [employer], gas, oil, or water company threatened to [...] 2:00 PM EST Office Visit Dermatology at [facility] [address] [place] [address] Prisca Hughes MD [facility] [place] [address] documented as of this encounter Visit Diagnoses [...] Gluteal documented in this encounter Care Teams Signal Manager Relationship Specialty Start Date End Date Celio Sanders MD [address] [place] [address] PCP - General Internal Medicine 05/19/16 documented as of this encounter
--- OUTSIDE RECORDS SUMMARY | 2023-11-19 09:23 | XMS_ITS | Encounter Summary ---
Author Organization [facility] Address [facility] [place] [address] Care Team Providers Care Tobacco Feeder Catcher Name Role Phone Celio Sanders MD Primary Care Provider [phone] Encounter Details Date Type Department Care Team (Late st Contact Info) Description 10/24/2023 1:30 PM EDT Office Visit Hematology/Oncology at [address] [address] Bisi Cheng APRN [facility] [place] [address] Recurrent prostate cancer; BRCA gene mutation positive Social History Tobacco Use Types Packs/Day Years Used Date Smoking Tobacco: Never Smokeless Tobacco: Never Alcohol Use Standard Drinks/Week Comments Not Currently 0 (1 standard drink = 0.6 oz pur e alcohol) beer and wine twice a month [facility] Utilities Answer Date Recorded In the past 12 months has [employer], gas, oil, or water [employer] threatened to shut off services in your [...] place to sleep or slept in a half-way (including now)? No 02/15/2023 Sex and Gender Information Value Date Recorded Sex Assigned at Not on file Gender Identity Not on file Sexual Orientation Not on file documented as of this encounter Last Filed Vital Signs Vital Sign Reading Time Taken Comments Blood Pressure 126/74 10/24/2023 1:35 PM EDT Pulse 83 10/24/2023 1:35 PM EDT Temperature 36.3 ??C (97.4 ??F) 10/24/2023 1:35 PM ED T Respiratory Rate 18 10/24/2023 1:35 PM EDT Oxygen Saturation 100% 10/24/2023 1:35 PM EDT Inhaled Oxygen Concentration - - Weight 83.4 kg (183 lb 13.8 oz) 10/24/2023 1:35 PM EDT Height - - Body Mass Index 31.82 07/19/2023 1:05 PM EDT documented in this encounter Progress Notes * Bisi Cheng, KENNY - 10/24/2023 1:30 PM EDT ONCOLOGY F/u visit REFERRING: Dr Vazquez, Dr [...] Mar 2018: pathogenic variant in BRCA2 (c.1929del, p.[id number] fs15). VUS in AXIN2 and CTNNA1 -01/06/23 PSA 1.4 HPI: Nain Mckeon is a 73 y.o. M here for follow up for hx of prostate cancer. Interval history 10/25/23: Nain is in clinic for follow-up appointment on prostate cancer. He received brachytherapy under the care of Dr. Hassan at [facility] on June 15 and June 22. Developed urinary retention after RT and had Webber catheter placed and this is all resolved now. He has no problems with urination. Reports nocturia x 2 per night which is stable. Follows with urologist Dr. Curran. Has a history of bipolar disorder which is stable. Overall is feeling well. Energy improved. Denies pain. Theremainder of his review of systems is negative. REVIEW OF SYSTEMS: Aside from above, the remainder of the the ROS was negative PAST MEDICAL HISTORY: Hx of urinary retention s/p RT requiring webber catheter placement - Resolved Bipolar disorder Past Medical History: Diagnosis Date Anxiety Finger fracture multiple from basket ball injuries Hyperlipidemia Prostate cancer MEDS: Medications 10/24/23 6758 Medication Sig Taking? b complex vitamins Capsule Take 1 capsule by mouth daily. Yes cholecalciferol, vitamin D3, (VITAMIN D3 ORAL) Take by mouth. Yes lactobacillus rhamnosus, GG, (CULTURELLE) 10 billion cell Capsule Take 1 capsule by mouth daily. Yes vitamin E mixed (NATURAL VITAMIN E ORAL) Take by mouth. Yes DULoxetine DR (Cymbalta) 30 mg Capsule, Delayed Release(E.C.) Take 20 mg by mouth daily. 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 PS: ECOG = 0 General : alert and oriented x 3 HEENT: nonicteric Deferred for discussion Pathology: 01/20/2023 prostatic adenocarcinoma, Grade Group 5 (Sun score 5+5=10) LABS: 10/12/23 BUN 24, creatinine 1.1, TB 0.36, alkaline phosphatase 97, AST 22, ALT 38, WBC 6.95, hemoglobin 12.5, platelet count 284, ANC 3.89. 07/12/2023 BUN 23, creatinine 1.2, TB 0.4, alkaline phosphatase 76, AST 24, ALT 33, WBC 7.26, hemoglobin 12.4, platelet count 359, ANC 4.29. 04/19/2023 BUN 15, creatinine 1.0, TB 0.4, AST 28, ALT 39, WBC 6.83, hemoglobin 12.3, platelet [id number], 02/15/2023 BUN 31, creatinine 1.1, calcium 9.3, WBC 7.94, hemoglobin 13.1, platelet count 341 PSA testosteron 10/12/23 <0.01 pending 07/12/23 0.01 <7.0 04/19/23 0.04 01/06/23 1.4 10/01/22 1.7 IMAGING STUDIES: 10/26/23 pelvic MRI: Extraprostatic disease: Seminal vesicle involvement:No [...] the findings as above ASSESSMENT AND PLAN: 73 y.o. male with local recurrence of high risk prostate cancer s/p XRT and 3 years of ADT. He did not tolerate abiraterone and prednisone. Nain follows with with Dr. Vazquez and started ADT on February 03. He has an appointment with radiation oncologist Dr. Victorino Hassan at the [facility] Given his high Sun score question is if we should intensify [...] observed, with no substantial between-group differences in [id number] measures. CONCLUSIONS In patients with prostate cancer with high-risk biochemical recurrence, enzalutamide plus leuprolide was superior to leuprolide alone with respect to metastasis-free survival; enzalutamide monotherapy was also superior to leuprolide alone. The safety profile of enzalutamide was consistent with that shown in previous clinical studies, with no apparent detrimental effect on quality of life. (Fundedby [employer] and [employer]; [employer] ClinicalTrials.gov number, [id number]. opens in new tab.) On January 20 [...] follow-up with radiation oncologist Dr. Hassan at [facility] I can see him back in 3 months with blood work 07/19/23 Nain had salvage HDR focally under care of Dr. Shaffer At [facility] on June 15 and June 22. The treatment course was complicated by urinary retention requiring Webber catheter placed and later urinarytract infection. He completed 6 months of ADT on June 20 PSA 0.01 consistent with excellent PSA response to treatment. He wants to discuss with Dr. Vazquez length of ADT treatment. Will see him backin 3 months with blood work. 10/25/23 Nain is for f/u s/p local recurrence of prostate cancer. He has completed salvage RT and ADT x 6 months. PSA is non-detectable. Testosterone is pending. He did not tolerated enzalutamide and elected to discontinue this. Remains on observation. #genetic testing: BRCA2 positive Plan: Next visit with MD in 3 months with CBC, CMP, PSA and testosterone Bisi Cheng APRN, 25 minutes were spent on date of visit, including non-face to face time. We had a long discussion about surveillance schedule and lifestyle recommendations. documented in this encounter Plan of Treatment Upcoming Encounters Date Type Department Care Team (Late st Contact Info) Description 01/24/2024 2:00 PM EST Office Visit Dermatology at [facility] [address] [place] [address] Prisca Hughes MD [facility] [address] [place] [address] documented as of this encounter Visit Diagnoses Diagnosis Recurrent prostate cancer BRCA gene mutation positive documented in this encounter Care Teams Tobacco Feeder Catcher Relationship Specialty Start Date End Date Celio Sanders MD [address] [place] [address] PCP - General Internal Medicine 05/19/16 documented as of this encounter
--- OUTSIDE RECORDS SUMMARY | 2023-11-19 09:23 | XMS_ITS | Encounter Summary ---
Author Organization [facility] Address [address] [place] [address] Care Team Providers Care Stationary Steam Engineer Name Role Phone Celio Sanders MD Primary Care Provider [phone] Encounter Details Date Type Department Care Team (Latest Contact Info) Description 06/17/2016 15:52 EDT - 06/17/2016 23:59 EDT Hospital Encounter [address] [address] Unknown, Provider, Discharge Disposition: Home or Self Care Social History Tobacco Use Types Packs/Day Years Used Date Smoking Tobacco: Never Assessed Sex and Gender Information Value Date Recorded Sex Assigned at Not on file Gender Identity Not on file Sexual Orientation Not on file documented as of this encounter Discharge Disposition Disposition Code Departure Means Destination Home or Self [facility] documented in this encounter Plan of Treatment Not on file documented as of this encounter Visit Diagnoses Not on filedocumented in this encounter Care Teams Stationary Steam Engineer Relationship Specialty Start Date End Date Celio Sanders MD [address] [place] [address] PCP - General 04/30/16 documented as of this encounter
--- OUTSIDE RECORDS SUMMARY | 2023-11-19 09:23 | XMS_ITS | Encounter Summary ---
[place] [address] Care Team Providers Care Dsp Engineer Name Role Phone Celio Sanders MD Primary Care Provider [phone] Reason for Visit * Reason Comments Chemotherapy Injections * Treatment/Therapy Plan Authorization (Routine) - Authorized Specialty Diagnoses / Procedures Referred By Contac t Referred To Contact Hematology and Oncology Diagnoses Recurrent prostate cancer Procedures TC LEUPROLIDE ACETATE 7.5MG, FOR DEPOST SUSPENSION (LUPRON DEPOT) Ronnie Vazquez MD [address] [place] [address] [place] [address] [facility] [address] [place] [address] Referral ID Status Reason Start Date Expiration Date V isits Requested Visits Authorized [id number] Authorized 02/17/2023 02/17/2024 1 103 Encounter Details Date Type Department Care Team (Late st Contact Info) Description 06/21/2023 11:00 AM EDT Infusion Hematology Oncology at [address] [phone] Recurrent prostate cancer Social History Tobacco Use Types Packs/Day Years Used Date Smoking Tobacco: Never Smokeless Tobacco: Never Alcohol Use Standard Drinks/Week Comments Not Currently 0 (1 standard drink = 0.6 oz pur e alcohol) beer and wine twice a month [facility] Utilities Answer Date Recorded In the past 12 months has [employer], gas, oil, or water company threatened to [...] 2:00 PM EST Office Visit Dermatology at [place] [address] [place] [address] Prisca Hughes MD [facility] [address] [place] [address] documented as of this encounter Visit Diagnoses [...] Gluteal documented in this encounter Care Teams Dsp Engineer Relationship Specialty Start Date End Date Celio Sanders MD [address] [place] [address] PCP - General Internal Medicine 05/19/16 documented as of this encounter
--- OUTSIDE RECORDS SUMMARY | 2023-11-19 09:23 | XMS_ITS | Encounter Summary ---
Author Organization [facility] Address [facility] [place] [address] Care Team Providers Care Mechanical Systems Designer Name Role Phone Celio Sanders MD Primary Care Provider Reason for Visit * Reason Comments Injections Degarelix * Treatment/Therapy Plan Authorization (Routine) - Closed Specialty Diagnoses / Procedures Referred By Contac t Referred To Contact Hematology and Oncology Diagnoses Prostate cancer metastatic to intrapelvic lymph node Procedures Degarelix (Firmagon) Injection ([facility] HemOnc) New Patient Induction - As of 02/01/2023 11:18 AM Ronnie Vazquez MD [address] [place] [address] [place] [address] [facility] [address] [place] [phone] Referral ID Status Reason Start Date Expiration Date Visits Re quested Visits Authorized [id number] Closed 02/01/2023 02/01/2024 99 99 Encounter Details Date Type Department Care Team (Late st Contact Info) Description 02/03/2023 1:00 PM EST Infusion Hematology Oncology at [address] [address] Prostate cancer metastatic to intrapelvic [...] 2:00 PM EST Office Visit Dermatology at [facility] [address] [place] [phone] Prisca Hughes MD [facility] [address] [place] [address] documented as of this encounter Visit Diagnoses [...] section) documented in this encounter Care Teams Mechanical Systems Designer Relationship Specialty Start Date End Date Celio Sanders MD [address] [place] [address] PCP - General Internal Medicine 05/19/16 documented as of this encounter
--- OUTSIDE RECORDS SUMMARY | 2023-11-19 09:23 | XMS_ITS | Encounter Summary ---
Author Organization [facility] Address [facility] [place] [address] Care Team Providers Care Plater Barrel Name Role Phone Celio Sanders MD Primary Care Provider [phone] Encounter Details Date Type Department Care Team ([facility] Contact Info) Description 02/04/2023 Orders Only Hematology/Oncology at [address] [phone] Bisi Cheng APRN [facility] [place] [address] Prostate cancer metastatic to intrapelvic lymph node [...] Department Care Team (Late Contact Info) Description 01/24/2024 2:00 PM EST Office Visit Dermatology at [facility] [address] [place] [address] Prisca Hughes MD [facility] [address] PHOE[address] [place] [address] documented as of this encounter Visit Diagnoses Diagnosis Prostate cancer metastatic to intrapelvic lymph node documented in this encounter Care Teams Plater Barrel Relationship Specialty Start Date End Date Celio Sanders MD [address] [place] [address] PCP - General Internal Medicine 05/19/16 documented as of this encounter
--- OUTSIDE RECORDS SUMMARY | 2023-11-19 09:23 | XMS_ITS | Encounter Summary ---
[place] [address] Care Team Providers Care Training Facilitator Name Role Phone Celoi Sanders MD Primary Care Provider [phone] Reason for Visit * Reason Comments Injections * Treatment/Therapy Plan Authorization (Routine) - Authorized Specialty Diagnoses / Procedures Referred By Contac t Referred To Contact Hematology and Oncology Diagnoses Recurrent prostate cancer Procedures TC LEUPROLIDE ACETATE 7.5MG, FOR DEPOST SUSPENSION (LUPRON DEPOT) Ronnie Vazquez MD [address] [place] [address] [place] [address] [address] Referral ID Status Reason Start Date Expiration Date V isits Requested Visits Authorized [id number] Authorized 02/17/2023 02/17/2024 1 103 Encounter Details Date Type Department Care Team (Late st Contact Info) Description 03/29/2023 10:30 AM EST Infusion Hematology Oncology at [address] [phone] Recurrent prostate cancer Social History Tobacco Use Types Packs/Day Years Used Date Smoking Tobacco: Never Smokeless Tobacco: Never Alcohol Use Standard Drinks/Week Comments Not Currently 0 (1 standard drink = 0.6 oz pur e alcohol) beer and wine twice a month [facility] Utilities Answer Date Recorded In the past 12 months has [employer], gas, oil, or water company threatened to [...] 2:00 PM EST Office Visit Dermatology at [address] [place] [address] Prisca Hughes MD [facility] DR PHOEBE IBARRA-[place] [address] documented as of this encounter Visit Diagnoses [...] Gluteal documented in this encounter Care Teams Training Facilitator Relationship Specialty Start Date End Date Celio Sanders MD [address] [place] [address] PCP - General Internal Medicine 05/19/16 documented as of this encounter
--- OUTSIDE RECORDS SUMMARY | 2023-11-19 09:23 | XMS_ITS | Encounter Summary ---
Author Organization [facility] Address [facility] [place] [address] Care Team Providers Care Truer Pinion And Wheel Name Role Phone Celio Sanders MD Primary Care Provider [phone] Reason for Visit * Reason Comments Prior Authorization Xtandi Encounter Details Date Type Department Care Team (Late st Contact Info) Description 02/22/2023 Specialty [place] [phone] Sam Antonio, [facility] Social History Tobacco Use Types Packs/Day Years Used Date Smoking Tobacco: Never Smokeless Tobacco: Never Alcohol Use Standard Drinks/Week Comments Not Currently 0 (1 standard drink = 0.6 oz pur e alcohol) beer and wine twice a month [facility] Utilities Answer Date Recorded In the [...] Nain Mckeon Patient : 1950 Patient Address: [address] [place], [place] [phone] (home) Medication Name: XTANDI 40 MG TABLET Medication ID: Subscriber Insurance: [employer] ([employer]) Subscriber Insurance Comment: Phone: [phone] Fax: Physician: AUGUSTINE RUFFIN Physician Comment: Sent Via: Fax Daley: Ref/Case/PA#: Medication Strength Frequency Requested: Take 4 tablets by mouth daily Qty/Day Supply: 120/30 New Start: New to Therapy Diagnosis & ICD-10 Code: C61 - Prostate Cancer Patient Notified: No Submission Notes: Karlo Antonio 02/22/23 12:46 PM * Sam Antonio - 02/22/2023 12:44 PM EST [facility], Prior Authorization Approval Medication Name: XTANDI 40 MG TABLET Medication ID: Approval Dates: 02/22/2023 to 02/22/2024 Insurance requirements/notes: None Other Notes: None Case/Reference #: Approval notification Received via: Fax Copay: $[phone] Copay assistance: Other (Enter Comment) Copay Notes: PT has a high copay - PT will need to fill with MAP Insurance mandated Pharmacy: Fillable at [facility] Specialty Pharmacy: Yes Patient Notified: No Pharmacy staff will be reaching out to the patient to inform them of their medication's approval by[facility] insurance. If applicable, a pharmacist will speak with the patient to offer our specialty pharmacy services and to arrange delivery of their medication. Sam Antonio 02/23/23 8:05 AM documented in this encounter Plan of Treatment Upcoming Encounters Date Type Department Care Team (Late st Contact Info) Description 01/24/2024 2:00 PM EST Office Visit Dermatology at [address] [address] Prisca Hughes MD [facility] DR PHOEBE [place] [address] documented as of this encounter Visit Diagnoses Not on filedocumented in this encounter Care Teams Truer Pinion And Wheel Relationship Specialty Start Date End Date Celio Sanders MD [address] [place] [address] PCP - General Internal Medicine 05/19/16 documented as of this encounter
--- OUTSIDE RECORDS SUMMARY | 2023-11-19 09:23 | XMS_ITS | Encounter Summary ---
Author Organization [facility] Address [facility] [place] [address] Care Team Providers Care Director Of Litigation Name Role Phone Celio Sanders MD Primary Care Provider [phone] Encounter Details Date Type Department Care Team (Late Contact Info) Description 02/11/2023 Telephone Hematology/Oncology at [address] [phone] Hanny Laureano Social History Tobacco [...] 2:00 PM EST Office Visit Dermatology at [facility] [address] [place] [address] Prisca Hughes MD [facility] [address] [place] [address] documented as of this encounter Visit Diagnoses Not on filedocumented in this encounter Care Teams Director Of Litigation Relationship Specialty Start Date End Date Celio Sanders MD [address] [place] [address] PCP - General Internal Medicine 05/19/16 documented as of this encounter
--- OUTSIDE RECORDS SUMMARY | 2023-11-19 09:23 | XMS_ITS | Encounter Summary ---
Author Organization [facility] Address [facility] [place] [address] Care Team Providers Care Enamel Applier Name Role Phone Celio Sanders MD Primary Care Provider [phone] Encounter Details Date Type Department Care Team (Latest Contact Info) Description 07/19/2023 Travel Social History Tobacco Use Types Packs/Day Years Used Date Smoking Tobacco: Never Smokeless Tobacco: Never Alcohol Use Standard Drinks/Week Comments Not Currently 0 (1 standard drink = 0.6 oz pur e alcohol) beer and wine twice a month [facility] Utilities Answer Date Recorded In the [...] 2:00 PM EST Office Visit Dermatology at [facility] [address] [place] [address] Prisca Hughes MD [facility] DR [place] [address] documented as of this encounter Visit Diagnoses Not on filedocumented in this encounter Care Teams Enamel Applier Relationship Specialty Start Date End Date Celio Sanders MD [address] [place] [address] PCP - General Internal Medicine 05/19/16 documented as of this encounter
--- OUTSIDE RECORDS SUMMARY | 2023-11-19 09:23 | XMS_ITS | Encounter Summary ---
Author Organization [facility] Address [facility] [address] Care Team Providers Care Bed Worker Name Role Phone Celio Sanders MD Primary Care Provider [phone] Reason for Visit * Reason Onset Date Comments New Medication Request 02/22/2023 xtandi Encounter Details Date Type Department Care Team (Late st Contact Info) Description 02/22/2023 Telephone Hematology/Oncology at [address] [phone] Tracy Reno RN New Medication Request (xtandi) Social History Tobacco Use Types Packs/Day Years Used Date Smoking Tobacco: Never Smokeless Tobacco: Never Alcohol Use Standard Drinks/Week Comments Not Currently 0 (1 standard drink = 0.6 oz pur e alcohol) beer and wine twice a month [facility] Utilities Answer Date Recorded In the [...] signed by provider and manually faxed to [facility] pharmacy. If high copay funding to be checked, if none available will need to apply to [facility]. documented in this encounter Plan of Treatment Upcoming Encounters Date Type Department Care Team (Late st Contact Info) Description 01/24/2024 2:00 PM EST Office Visit Dermatology at [facility] [address] [place] [address] Prisca Hughes MD [facility] [address] [place] [address] documented as of this encounter Visit Diagnoses Not on filedocumented in this encounter Care Teams Bed Worker Relationship Specialty Start Date End Date Celio Sanders MD [address] [place] [address] PCP - General Internal Medicine 05/19/16 documented as of this encounter
--- OUTSIDE RECORDS SUMMARY | 2023-11-19 09:23 | XMS_ITS | Encounter Summary ---
Author Organization [facility] Address [facility] [place] [address] Care Team Providers Care Podiatry Assistant Name Role Phone Celio Sanders MD Primary Care Provider [phone] Encounter Details Date Type Department Care Team (Late st Contact Info) Description 02/24/2023 Telephone Hematology/Oncology at [address] [phone] Kori Haas, RN Social History Tobacco Use Types Packs/Day Years Used Date Smoking Tobacco: Never Smokeless Tobacco: Never Alcohol Use Standard Drinks/Week Comments Not Currently 0 (1 standard drink = 0.6 oz pur e alcohol) beer and wine twice a month [facility] Utilities Answer Date Recorded In the [...] Haas, RN - 02/24/2023 2:37 PM EST [facility] sent in notification the Xtandi was approved. Contacted Nain to let him it was approved and provided the phone number to call to set up a delivery date in the event he does nohear from them first. The number given to contact was [phone]. Nain verbalized understanding and in agreement with the plan. documented in this encounter Plan of Treatment Upcoming Encounters Date Type Department Care Team (Late st Contact Info) Description 01/24/2024 2:00 PM EST Office Visit Dermatology at [facility] [address] [place] [address] Prisca Hughes MD [facility] [address] [place] [address] documented as of this encounter Visit Diagnoses Not on filedocumented in this encounter Care Teams Podiatry Assistant Relationship Specialty Start Date End Date Celio Sanders MD [address] [place] [address] PCP - General Internal Medicine 05/19/16 documented as of this encounter
--- OUTSIDE RECORDS SUMMARY | 2023-11-19 09:23 | XMS_ITS | Encounter Summary ---
Author Organization [facility] Address [facility] [place] [address] Care Team Providers Care Day Care Director Name Role Phone Celio Sanders MD Primary Care Provider [phone] Encounter Details Date Type Department Care Team (Late st Contact Info) Description 01/25/2023 [place] [phone] Nick Kelly MD [facility] [place] [address] Social History Tobacco Use Types Packs/Day Years [...] 01/25/2023 4:41 PM EST Copied from CRM #[id number]. Topic: Specialty Dept CRMs - Generic Call [...] 2:00 PM EST Office Visit Dermatology at [facility] [address] [place] [address] Prisca Hughes MD [facility] [address] [place] [address] documented as of this encounter Visit Diagnoses Not on filedocumented in this encounter Care Teams Day Care Director Relationship Specialty Start Date End Date Celio Sanders MD [address] [place] [address] PCP - General Internal Medicine 05/19/16 documented as of this encounter
--- OUTSIDE RECORDS SUMMARY | 2023-11-19 09:23 | XMS_ITS | Encounter Summary ---
Author Organization [facility] Address [facility] [place] [address] Care Team Providers Care Integration Aide Name Role Phone Celio Sanders MD Primary Care Provider [phone] Encounter Details Date Type Department Care Team (Latest Contact Info) Description 05/24/2023 Travel Social History Tobacco Use Types Packs/Day Years Used Date Smoking Tobacco: Never Smokeless Tobacco: Never Alcohol Use Standard Drinks/Week Comments Not Currently 0 (1 standard drink = 0.6 oz pur e alcohol) beer and wine twice a month [facility] Utilities Answer Date Recorded In the [...] 2:00 PM EST Office Visit Dermatology at [facility] [address] [place] [address] Prisca Hughes MD [facility] DR PH[address] [place] [address] documented as of this encounter Visit Diagnoses Not on filedocumented in this encounter Care Teams Integration Aide Relationship Specialty Start Date End Date Celio Sanders MD [address] [place] [address] PCP - General Internal Medicine 05/19/16 documented as of this encounter
--- OUTSIDE RECORDS SUMMARY | 2023-11-19 09:23 | XMS_ITS | Encounter Summary ---
Author Organization [facility] Address [facility] [place] [address] Care Team Providers Care Weight Checker Name Role Phone Celio Sanders MD Primary Care Provider [phone] Encounter Details Date Type Department Care Team (Late st Contact Info) Description 07/19/2023 1:00 PM EDT Office Visit Hematology/Oncology at [address] [phone] Harjinder Ruffin MD [facility] [place] [address] Bisi Cheng APRN [facility] [place] [place] [address] Recurrent prostate cancer; Malignant neoplasm of prostate Social History Tobacco Use Types Packs/Day Years Used Date Smoking Tobacco: Never Smokeless Tobacco: Never Alcohol Use Standard Drinks/Week Comments Not Currently 0 (1 standard drink = 0.6 oz pur e alcohol) beer and wine twice a month [facility] Utilities Answer Date Recorded In the past 12 months has [employer], gas, oil, or water company threatened [...] from the original note were not included. 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 VUS in AXIN2 and CTNNA1 -01/06/23 [...] under the care of Dr. 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 Victorino Hassan at the [facility] Given his high Andre score question is [...] observed, with no substantial between-group differences in [id number] measures. CONCLUSIONS In patients with prostate cancer with high-risk biochemical recurrence, enzalutamide plus leuprolide was superior to leuprolide alone with respect to metastasis-free survival; enzalutamide monotherapy was also superior to leuprolide alone. The safety profile of enzalutamide was consistent with that shown in previous clinical studies, with no apparent detrimental effect on quality of life. (Fundedby [employer] and [employer]; [employer] ClinicalTrials.gov number, NSK06905871. opens in new tab.) On January 20 [...] follow-up with radiation oncologist Dr. Hassan at [facility] I can see him back in 3 months with blood work 07/19/23 Nain had salvage HDR focally under care of Dr. Shaffer At [facility] on June 15 and [...] 2:00 PM EST Office Visit Dermatology at [facility] [address] [place] [address] Prisca Hughes MD [facility] DR [place] [address] documented as of this encounter Visit Diagnoses Diagnosis Recurrent prostate cancer Malignant neoplasm of prostate documented in this encounter Care Teams Weight Checker Relationship Specialty Start Date End Date Celio Sanders MD [address] [place] [address] PCP - General Internal Medicine 05/19/16 documented as of this encounter
--- OUTSIDE RECORDS SUMMARY | 2023-11-19 09:23 | XMS_ITS | Encounter Summary ---
Author Organization [facility] Address [facility] [place] [address] Care Team Providers Care Province Archivist Name Role Phone Celio Sanders MD Primary Care Provider [phone] Encounter Details Date Type Department Care Team [...] 2:00 PM EST Office Visit Dermatology at [facility] [address] [place] [address] Prisca Hughes MD [facility] DR [place] [address] documented as of this encounter Visit Diagnoses Not on filedocumented in this encounter Care Teams Province Archivist Relationship Specialty Start Date End Date Celio Sanders MD [address] [place], [place] [address] PCP - General Internal Medicine 05/19/16 documented as of this encounter
--- OUTSIDE RECORDS SUMMARY | 2023-11-19 09:23 | XMS_ITS | Encounter Summary ---
Author Organization [facility] Address [facility] [place] [address] Care Team Providers Care Claims Service Representative Name Role Phone Celio Sanders MD Primary Care Provider [phone] Encounter Details Date Type Department Care Team (Late st Contact Info) Description 03/02/2023 Orders Only Hematology/Oncology at [address] [address] Bisi Cheng APRN [facility] [place] [address] Prostate cancer metastatic to intrapelvic lymph node; Malignant neoplasm of prostate Social History Tobacco Use Types Packs/Day Years Used Date Smoking Tobacco: Never Smokeless Tobacco: Never Alcohol Use Standard Drinks/Week Comments Not Currently 0 (1 standard drink = 0.6 oz pur e alcohol) beer and wine twice a month [facility] Utilities Answer Date Recorded In the past 12 months has [employer], gas, oil, or water [employer] threatened to shut off services in your [...] place to sleep or slept in a group home (including now)? No 02/15/2023 Sex and Gender Information Value Date Recorded Sex Assigned at Not on file Gender Identity Not on file Sexual Orientation Not on file documented as of this encounter Plan of Treatment Upcoming Encounters Date Type Department Care Team (Late st Contact Info) Description 01/24/2024 2:00 PM EST Office Visit Dermatology at [facility] [address] [place] [address] Prisca Hughes MD [facility] [address] [place] [place] [address] documented as of this encounter Visit Diagnoses Diagnosis Prostate cancer metastatic to intrapelvic lymph node Malignant neoplasm of prostate documented in this encounter Care Teams Claims Service Representative Relationship Specialty Start Date End Date Celio Sanders MD [address] [place] [address] PCP - General Internal Medicine 05/19/16 documented as of this encounter
--- OUTSIDE RECORDS SUMMARY | 2023-11-19 09:23 | XMS_ITS | Encounter Summary ---
Author Organization [facility] Address [facility] [place] [address] Care Team Providers Care Document Reviewer Name Role Phone Celio Sanders MD Primary Care Provider [phone] Encounter Details Date Type Department Care Team (Latest Contact Info) Description 03/29/2023 Travel Social History Tobacco Use Types Packs/Day Years Used Date Smoking Tobacco: Never Smokeless Tobacco: Never Alcohol Use Standard Drinks/Week Comments Not Currently 0 (1 standard drink = 0.6 oz pur e alcohol) beer and wine twice a month [facility] Utilities Answer Date Recorded In [...] 2:00 PM EST Office Visit Dermatology at [facility] [address] [place] [address] Prisca Hughes MD [facility] DR [address] [place] [address] documented as of this encounter Visit Diagnoses Not on filedocumented in this encounter Care Teams Document Reviewer Relationship Specialty Start Date End Date Celio Sanders MD [address] [place] [address] PCP - General Internal Medicine 05/19/16 documented as of this encounter
--- OUTSIDE RECORDS SUMMARY | 2023-11-19 09:23 | XMS_ITS | Encounter Summary ---
Author Organization [facility] Address [facility] [place] [address] Care Team Providers Care Marionette Performer Name Role Phone Celio Sanders MD Primary Care Provider [phone] Encounter Details Date Type Department Care Team (Latest Contact Info) Description 01/20/2023 9:00 AM EST - 01/20/2023 11:59 PM [facility] Hospital [place] [phone] Teresa Kelly MD [facility] [place] [address] Elevated PSA Discharge Disposition: Home Social History [...] 2:00 PM EST Office Visit Dermatology at [facility] [address] [place] [address] Prisca Hughes MD [facility] [address] [place] [address] documented as of this encounter Procedures Procedure [...] signed by: Mahnaz Coello MD, [facility] ([phone]), at 01/20/2023 1:03 PM Thank you for letting us participate in the care of this patient. If you are a health care provider and have any questions regarding this report, please contact the number above. For patients who have questions, please contact the health animal care provider that requested your imaging first. ? Mahnaz Coello, Staff Physician Electronically Signed Final Report ?? 01/20/2023 01:09 pm Narrative 01/20/2023 1:10 PM EST Male Pelvis ? (Signed Final 01/20/2023 01:09 pm) PATIENT INFO: ID #: ? [id number] ?: ??[birth year] (72 yrs)(M) Name: ? NAIN LIPSCOMB ?Visit Date: 01/20/2023 10:17 am PERFORMED BY: Attending: ?Mode MUNOZ, Mahnaz Burroughs Performed By: ? Joce Phelps RDMS Referred By: ?TERESA KELLY Location: ? [place] SERVICE(S) PROVIDED: UTRBXURO - Prostate Biopsy with UroNav Fusion ? [id number] - [id number] INDICATIONS: PI-RADS 5 TECHNIQUE/SCAN QUALITY: Technique: ?Transducer [...] 01/20/2023 01:09 pm) PATIENT INFO: ID #: [id number] : [birth year] (72 yrs)(M) Name: NAIN LIPSCOMB Visit Date: 01/20/2023 10:17 am PERFORMED BY: Attending: Mahnaz Coello MD Performed By: Joce Phelps RDMS Referred By: TERESA KELLY Location: [place] SERVICE(S) PROVIDED: UTRBXURO - Prostate Biopsy with UroNav Fusion [id number], [id number] - [id number] INDICATIONS: PI-RADS 5 TECHNIQUE/SCAN QUALITY: Technique: Transducer [...] Urology who performed multiple biopsies in the [address] [place] [address] location. UroNav fusion was used for this procedure. Electronically signed by: Mahnaz Coello MD, [facility] ([phone]), at 01/20/2023 1:03 PM Thank you for letting us participate in the care of this patient. If you are a health care provider and have any questions regarding this report, please contact the number above. For patients who have questions, please contact the health animal care provider that requested your imaging first. Mahnaz Coello, Staff Physician Electronically Signed Final Report 01/20/2023 01:09 pm Teresa Kelly MD [facility] PROC ORDERA BLES * Specimen to Pathology (01/20/2023 10:31 AM EST) AP Specimen 01/20/2023 10:3 1 AM EST 01/20/2023 10:31 AM EST Narrative [facility] - 01/20/2023 10:31 AM EST Specimen requisition ordered. ??Separate Pathology report to follow Teresa Kelly MD PATHOLOGY/CYTOLOGY ORDERABLES [facility] [place] [address] * Specimen to Pathology (01/20/2023 10:31 AM EST) AP Specimen 01/20/2023 10:3 1 AM EST 01/20/2023 10:31 AM EST Narrative [facility] - 01/20/2023 10:31 AM EST Specimen requisition ordered. ??Separate Pathology report to follow Teresa Kelly MD PATHOLOGY/CYTOLOGY ORDERABLES Performing Organization Address City/[facility]/ZIP Co de Phone Number [facility] [place] [address] * Specimen to Pathology (01/20/2023 10:31 AM EST) AP Specimen 01/20/2023 10:3 1 AM EST 01/20/2023 10:31 AM EST Narrative [facility] - 01/20/2023 10:31 AM EST Specimen requisition ordered. ??Separate Pathology report to follow Teresa Kelly MD PATHOLOGY/CYTOLOGY ORDERABLES Performing Organization Address City/[facility]/ZIP Co de Phone Number [facility] [place] [address] * Specimen to Pathology (01/20/2023 10:31 AM EST) AP Specimen 01/20/2023 10:3 1 AM EST 01/20/2023 10:31 AM EST Narrative [facility] - 01/20/2023 10:31 AM EST Specimen requisition ordered. ??Separate Pathology report to follow Teresa Kelly MD PATHOLOGY/CYTOLOGY ORDERABLES Performing Organization Address [facility] Co de Phone Number [facility] [place] [address] * Specimen to Pathology (01/20/2023 10:31 AM EST) AP Specimen 01/20/2023 10:3 1 AM EST 01/20/2023 10:31 AM EST Narrative [facility] - 01/20/2023 10:31 AM EST Specimen requisition ordered. ??Separate Pathology report to follow Teresa Kelly MD PATHOLOGY/CYTOLOGY ORDERABLES Performing Organization Address City/[facility] Co de Phone Number [facility] [place] [address] * Specimen to Pathology (01/20/2023 10:31 AM EST) AP Specimen 01/20/2023 10:3 1 AM EST 01/20/2023 10:31 AM EST Narrative [facility] - 01/20/2023 10:31 AM EST Specimen requisition ordered. ??Separate Pathology report to follow Teresa Kelly MD PATHOLOGY/CYTOLOGY ORDERABLES Performing Organization Address [facility] Co de Phone Number [facility] [place] [address] * Specimen to Pathology (01/20/2023 10:31 AM EST) AP Specimen 01/20/2023 10:3 1 AM EST 01/20/2023 10:31 AM EST Narrative [facility] - 01/20/2023 10:31 AM EST Specimen requisition ordered. ??Separate Pathology report to follow Teresa Kelly MD PATHOLOGY/CYTOLOGY ORDERABLES Performing Organization Address [facility] de Phone Number [facility] [place] [address] * Specimen to Pathology (01/20/2023 10:31 AM EST) AP Specimen 01/20/2023 10:3 1 AM EST 01/20/2023 10:31 AM EST Narrative [facility] - 01/20/2023 10:31 AM EST Specimen requisition ordered. ??Separate Pathology report to follow Teresa Kelly MD PATHOLOGY/CYTOLOGY ORDERABLES Performing Organization Address [facility] Co de Phone Number [facility] [place] [address] * Specimen to Pathology (01/20/2023 10:31 AM EST) AP Specimen 01/20/2023 10:3 1 AM EST 01/20/2023 10:31 AM EST Narrative [facility] - 01/20/2023 10:31 AM EST Specimen requisition ordered. ??Separate Pathology report to follow Teresa Kelly MD PATHOLOGY/CYTOLOGY ORDERABLES Performing Organization Address [facility]/State/[place] [address] * Specimen to Pathology (01/20/2023 10:31 AM EST) AP Specimen 01/20/2023 10:3 1 AM EST 01/20/2023 10:31 AM EST Narrative [facility] - 01/20/2023 10:31 AM EST Specimen requisition ordered. ??Separate Pathology report to follow Teresa Kelly MD PATHOLOGY/CYTOLOGY ORDERABLES Performing Organization Address City/[facility]/[place] [address] * Specimen to Pathology (01/20/2023 10:31 AM EST) AP Specimen 01/20/2023 10:3 1 AM EST 01/20/2023 10:31 AM EST Narrative [facility] - 01/20/2023 10:31 AM EST Specimen requisition ordered. ??Separate Pathology report to follow Teresa Kelly MD PATHOLOGY/CYTOLOGY ORDERABLES Performing Organization Address City/[facility] Co de Phone Number [facility] [place] [address] * Specimen to Pathology (01/20/2023 10:31 AM EST) AP Specimen 01/20/2023 10:3 1 AM EST 01/20/2023 10:31 AM EST Narrative [facility] - 01/20/2023 10:31 AM EST Specimen requisition ordered. ??Separate Pathology report to follow Teresa Kelly MD PATHOLOGY/CYTOLOGY ORDERABLES Performing Organization Address City/[facility]/ZIP Co de Phone Number [facility] [place] [address] * Specimen to Pathology (01/20/2023 10:31 AM EST) AP Specimen 01/20/2023 10:3 1 AM EST 01/20/2023 10:31 AM EST Narrative [facility] - 01/20/2023 10:31 AM EST Specimen requisition ordered. ??Separate Pathology report to follow Teresa Kelly MD PATHOLOGY/[place] [address] * Surgical Pathology Report (01/20/2023 10:30 AM EST) Final Diagnosis [id number] ? Location: 3S The signing pathologist has (i) examined the relevant preparation(s) for the specimen(s) and (ii) rendered or confirmed the diagnosis(es). . ?Surgical Pathology DIAGNOSIS A - Prostate, Right lateral base, biopsy: - Prostatic adenocarcinoma, with cribriform features ?Grade Group 5 ??(Andre score 5+4=9), involving 40% of a single core. - Andre pattern 5 represents 80% of tumor, [place] pattern 4 represents 20% of tumor. B - Prostate, Right lateral mid, biopsy: - Prostatic adenocarcinoma, ?? Grade Group 5 ??([place] score 5+5=10), involving 70% of a single core. C - Prostate, Right lateral apex, biopsy: - Prostatic adenocarcinoma, ?? Grade Group 5 ??(Andre score 5+4=9), involving 30% of a single core. - [place] pattern 5 represents 90% of tumor, [place] pattern 4 represents 10% of tumor. D [...] Grade Group 5 ??(Andre score 5+4=9), involving 70% of a single core. - Andre pattern 5 represents 90% of tumor, Andre pattern 4 represents 10% of tumor. - ??Perineural invasion is present. F - Prostate, Right apex, biopsy: - Prostatic adenocarcinoma, with cribriform features, ?Grade Group 5 ??(Andre score 5+4=9), involving 60% of a single core. - Andre pattern 5 represents 80% of tumor, [place] pattern 4 represents 20% of tumor. G - Prostate, Left lateral base, biopsy: - Prostatic adenocarcinoma, with cribriform features, ?Grade Group 5 ??(Andre score 5+4=9), involving 40% of a single core. - Andre pattern 5 represents 90% of tumor, [place] pattern 4 represents 10% of tumor. - ??Perineural invasion is present. H - Prostate, Left lateral mid, biopsy: - Prostatic adenocarcinoma, with cribriform features, ?Grade Group 5 ??([place] score 5+4=9), involving 60% of a single core. - Andre pattern 5 represents 90% of tumor, Andre pattern 4 represents 10% of tumor. - ??Perineural invasion is present. I - Prostate, Left lateral apex, biopsy: - Prostatic adenocarcinoma, with cribriform features, ?Grade Group 5 ??(Andre score 5+4=9), involving 60% of a single core. . DIAGNOSIS - Andre pattern 5 represents 90% of tumor, Andre pattern 4 represents 10% of tumor. J - Prostate, Left base, biopsy: - Prostatic adenocarcinoma, with cribriform features, ?Grade Group 5 ??([place] score 5+4=9), involving 50% of a single core. - [place] pattern 5 represents 70% of tumor, Andre pattern 4 represents 30% of tumor. - ??Perineural invasion is present. K - Prostate, Left mid, biopsy: - Prostatic adenocarcinoma, ?? Grade Group 5 ??([place] score 5+4=9), involving 60% of a single core. - [place] pattern 5 represents 90% of tumor, Andre pattern 4 represents 10% of tumor. - ??Perineural invasion is present. L - Prostate, Left apex, biopsy: - Prostatic adenocarcinoma, ?? Grade Group 5 ??([place] score 5+5=10), involving 40% of a single core. M - Prostate, MRI LESION #1, biopsy: - Prostatic adenocarcinoma, ?? Grade Group 5 ??([place] score 5+4=9), with cribriform features, involving four of cores ?? (80%, 80%, 70%, 60%, respectively). - Andre pattern 5 accounts for 70% of tumor. - ??Perineural invasion is present. Electronically signed by: ?DORIAN STILL Verified: ??01/24/2023 9:45 Performed at: ??-[facility] Dept. of Pathology, [place] [address] Club Lounge Attendant: Kameron Clements MD, AP, ??CLIA Certificate: [id number] SPECIMEN(S) SUBMITTED A - Prostate, Right lateral [...] Single, 1.7 x 0.1 cm Tissue Description: Myton needle core biopsy. Sections/Proces sing: Entirely submitted in 1 cassette labeled A1. B - Labeled/Fixativ e: Prostate right lateral mid, formalin. Quantity/Size: Single, 1.4 x 0.1 cm Tissue Description: Myton needle core biopsy. Sections/Proces sing: Entirely submitted in 1 cassette labeled B1. C - Labeled/Fixativ e: Prostate right lateral apex, formalin. Quantity/Size: Single, 1.6 x 0.1 cm Tissue Description: Myton needle core biopsy. Sections/Proces sing: Entirely submitted in 1 cassette labeled C1. D - Labeled/Fixativ e: Prostate right base, formalin. Quantity/Size: Single, 1.9 x 0.1 cm Tissue Description: Rosales-white needle core biopsy. Sections/Proces sing: Entirely submitted [...] Single, 1.8 x 0.1 cm Tissue Description: Myton-white needle core biopsy. . SPECIMEN PROCESSING Sections/Proces sing: Entirely submitted in 1 cassette labeled K1. L - Labeled/Fixativ e: Prostate left apex, formalin. Quantity/Size: Single, x 0.1 cm Tissue Description: Myton needle core biopsy. Sections/Proces sing: Entirely submitted in 1 cassette labeled L1. M - Labeled/Fixativ e: MRI lesion #1, formalin. Quantity/Size: Four, ranging from 1.5 x 0.1 cm to 1.8 x 0.1 cm Tissue Description: Yellow-white needle core biopsies. Sections/Proces sing: Entirely submitted in 2 cassettes labeled M1-M2. ??sns 01/24/2023 9:45 AM [facility] PROSTATIC STRUCTURE / Unknown 01/20/2023 [...] AM EST Teresa Kelly MD PATHOLOGY/CYTOLOGY ORDERABLES [facility] [address] [place] [address] documented in this encounter Visit Diagnoses Diagnosis Elevated PSA Elevated prostate specific antigen (PSA) documented in this encounter Care Teams Marionette Performer Relationship Specialty Start Date End Date Celio Sanders MD [address] [place] [address] PCP - General Internal Medicine 05/19/16 documented as of this encounter
--- OUTSIDE RECORDS SUMMARY | 2023-11-19 09:23 | XMS_ITS | Encounter Summary ---
Author Organization [facility] Address [facility] [place] [address] Care Team Providers Care Carton Forming Machine Helper Name Role Phone Celio Sanders MD Primary Care Provider [phone] Encounter Details Date Type Department Care Team (Latest Contact Info) Description 10/24/2023 Travel Social History Tobacco Use Types Packs/Day Years Used Date Smoking Tobacco: Never Smokeless Tobacco: Never Alcohol Use Standard Drinks/Week Comments Not Currently 0 (1 standard drink = 0.6 oz pur e alcohol) beer and wine twice a month [facility] Utilities Answer Date Recorded In the [...] place to sleep or slept in a snf (including now)? No 02/15/2023 Sex and Gender Information Value Date Recorded Sex Assigned at Not on file Gender Identity Not on file Sexual Orientation Not on file documented as of this encounter Plan of Treatment Upcoming Encounters Date Type Department Care Team (Late st Contact Info) Description 01/24/2024 2:00 PM EST Office Visit Dermatology at [facility] [address] [place] [address] Prisca Hughes MD [facility] DR [address] [place] [address] documented as of this encounter Visit Diagnoses Not on filedocumented in this encounter Care Teams Carton Forming Machine Helper Relationship Specialty Start Date End Date Celio Sanders MD [address] [place] [address] PCP - General Internal Medicine 05/19/16 documented as of this encounter
--- OUTSIDE RECORDS SUMMARY | 2023-11-19 09:23 | XMS_ITS | Encounter Summary ---
Author Organization [facility] Address [address] [place] [address] Care Team Providers Care Compliance Examiner Name Role Phone Unknown, Provider Primary Care Provider [phone] Encounter Details Date Type Department Care Team (Late st Contact Info) Description 04/27/2016 Results Only [facility] [phone] Elias Curran MD [address] [place] [address] [place] [address] Social History Tobacco Use Types [...] ? NAIN LIPSCOMB ? Accession #: ? [id number] ? : ? 1950 (Age: 65) ??M [...] remaining) pattern: Grade 3. ? - Total [place] score: 7. ? - Number of cores [...] remaining) pattern: Grade 4. ? - Total [place] score: 8. ? - Number of cores involved/total number of cores: 1 out of 1. ? - Percentage of tissue involved by tumor: 90%. D. PROSTATE, RIGHT MID MEDIAL, NEEDLE CORE BIOPSY: - ??Adenocarcinoma of the prostate. See comment. ? - Primary (predominant) pattern: Grade 4. ? - Secondary (worst remaining) pattern: Grade 4. ? - Total Rixford score: 8. ? - Number of cores [...] remaining) pattern: Grade 3. ? - Total [place]ixford score: 7. ? - Number of cores [...] and stroma with acute inflammation. Comment: ? Php Developer slides of this case were reviewed at [...] (ASCP) 04/28/2016 11:00 AM End of Report [facility] 04/27/2016 9:09 EST 04/28/2016 9:09 EST Elias Curran MD PATHOLOGY ORDERAB LES [facility] [address] [place] [address] documented in this encounter Visit Diagnoses Not on filedocumented in this encounter Care Teams Compliance Examiner Relationship Specialty Start Date End Date Unknown, Provider, PCP - General 04/28/16 04/29/16 documented as of this encounter
--- OUTSIDE RECORDS SUMMARY | 2023-11-19 09:23 | XMS_ITS | Encounter Summary ---
Author Organization [facility] Address [facility] [place] [address] Care Team Providers Care Public Health Dietitian Name Role Phone Celio Sanders MD Primary Care Provider [phone] Reason for Referral * Consultation (Routine) - Closed Specialty Diagnoses / Procedures Referred By Contac t Referred To Contact Hematology and Oncology Diagnoses Prostate cancer metastatic to intrapelvic lymph node Ronnie Vazquez MD [address] [place] [address] [place] [address] Harjinder Snyder MD [facility] DR HEMAT[place] [address] Referral ID Status Reason Start Date Expiration Date V isits Requested Visits Authorized [id number] Closed Consult, Test & Treat 02/01/2023 02/01/2024 1 1 * Consultation (Routine) - Closed Specialty Diagnoses / Procedures Referred By Contac t Referred To Contact Radiation Oncology Diagnoses Prostate cancer metastatic to intrapelvic lymph node Ronnie Vazquez MD [address] [place] [address] [place] [address] Victorino Hassan MD [address] [place], [place] [address] [address] Referral ID Status Reason Start Date Expiration Date V isits Requested Visits Authorized [id number] Closed Assume Subset of Care 02/01/2023 07/31/2023 1 1 Encounter Details Date Type Department Care Team (Late Contact Info) Description 02/01/2023 Orders Only Radiation Oncology at [address] [address] Ronnie Vazquez MD [address] [place] [address] [place] [address] Prostate cancer metastatic to intrapelvic lymph node; [...] PM EST Office Visit Dermatology at [address] [address] Prisca Hughes MD [facility] DR [place] [address] Scheduled Referrals Name Type Priority Associated Diagnoses [...] cancer documented in this encounter Care Teams Public Health Dietitian Relationship Specialty Start Date End Date Celio Sanders MD [address] [place] [address] PCP - General Internal Medicine 05/19/16 documented as of this encounter
--- OUTSIDE RECORDS SUMMARY | 2023-11-19 09:23 | XMS_ITS | Encounter Summary ---
Author Organization [facility] Address [facility] [place] [address] Care Team Providers Care Jacquard Loom Weaver Name Role Phone Celio Sanders MD Primary Care Provider [phone] Encounter Details Date Type Department Care Team [...] place to sleep or slept in a residential (including now)? No 02/15/2023 Sex and Gender Information Value Date Recorded Sex Assigned at Not on file Gender Identity Not on file Sexual Orientation Not on file documented as of this encounter Plan of Treatment Upcoming Encounters Date Type Department Care Team (Late st Contact Info) Description 01/24/2024 2:00 PM EST Office Visit Dermatology at [facility] [address] [place] [address] Prisca Hughes MD [facility] [address] [place] [address] documented as of this encounter Visit Diagnoses Not on filedocumented in this encounter Care Teams Jacquard Loom Weaver Relationship Specialty Start Date End Date Celio Sanders MD [address] [place] [address] PCP - General Internal Medicine 05/19/16 documented as of this encounter
--- OUTSIDE RECORDS SUMMARY | 2023-11-19 09:23 | XMS_ITS | Encounter Summary ---
Author Organization [facility] Address [facility] [place] [address] Care Team Providers Care Veterinary Nurse Name Role Phone Celio Sanders MD Primary Care Provider [phone] Encounter Details Date Type Department Care Team (Late st Contact Info) Description 02/23/2023 Telephone Hematology/Oncology at [address] [address] Harjinder Snyder MD [facility] [address] [place] [address] Social History Tobacco Use Types Packs/Day Years Used Date Smoking Tobacco: Never Smokeless Tobacco: Never Alcohol Use Standard Drinks/Week Comments Not Currently 0 (1 standard drink = 0.6 oz pur e alcohol) beer and wine twice a month [facility] Utilities Answer Date Recorded In the past 12 months has [employer] gas, oil, or water [employer] threatened to shut off services in your [...] place to sleep or slept in a custodial (including now)? No 02/15/2023 Sex and Gender Information Value Date Recorded Sex Assigned at Not on file Gender Identity Not on file Sexual Orientation Not on file documented as of this encounter Plan of Treatment Upcoming Encounters Date Type Department Care Team (Late st Contact Info) Description 01/24/2024 2:00 PM EST Office Visit Dermatology at [facility] [address] [place] [address] Prisca Hughes MD [facility] [address] [address] documented as of this encounter Visit Diagnoses Diagnosis Prostate cancer metastatic to intrapelvic lymph node documented in this encounter Care Teams Veterinary Nurse Relationship Specialty Start Date End Date Celio Sanders MD [address] [place] [address] PCP - General Internal Medicine 05/19/16 documented as of this encounter
--- OUTSIDE RECORDS SUMMARY | 2023-11-19 09:23 | XMS_ITS | Encounter Summary ---
Author Organization [facility] Address [facility] [place] [address] Care Team Providers Care Career Development Facilitator Name Role Phone Celio Sanders MD Primary Care Provider [phone] Encounter Details Date Type Department Care Team (Late st Contact Info) Description 02/22/2023 Telephone Hematology/Oncology at [address] [address] Harjinder Snyder MD [facility] DR [place] [address] Social History Tobacco Use Types Packs/Day Years Used Date Smoking Tobacco: Never Smokeless Tobacco: Never Alcohol Use Standard Drinks/Week Comments Not Currently 0 (1 standard drink = 0.6 oz pur e alcohol) beer and wine twice a month [facility] Utilities Answer Date Recorded In the past 12 months has [employer], gas, oil, or water [employer] threatened to shut off services in your [...] PM EST Office Visit Dermatology at [facility] [address] [place] [address] Prisca Hughes MD [facility] [address] [place] [address] documented as of this encounter Visit Diagnoses Diagnosis Prostate cancer metastatic to intrapelvic lymph node documented in this encounter Care Teams Career Development Facilitator Relationship Specialty Start Date End Date Celio Sanders MD [address] [place] [address] PCP - General Internal Medicine 05/19/16 documented as of this encounter
--- OUTSIDE RECORDS SUMMARY | 2023-11-19 09:23 | XMS_ITS | Encounter Summary ---
Author Organization [facility] Address [facility] [place] [address] Care Team Providers Care Emt Name Role Phone Celio Sanders MD Primary Care Provider [phone] Reason for Visit * Reason Onset Date Comments Follow-up 03/15/2023 Re oral chemo Encounter Details Date Type Department Care Team (Late st Contact Info) Description 03/15/2023 Telephone Hematology/Oncology at [address] [address] Caio Venegas, RN Follow-up (Re oral chemo) Social History Tobacco Use Types Packs/Day Years Used Date Smoking Tobacco: Never Smokeless Tobacco: Never Alcohol Use Standard Drinks/Week Comments Not Currently 0 (1 standard drink = 0.6 oz pur e alcohol) beer and wine twice a month [facility] Utilities Answer Date Recorded In the past 12 months has [employer], gas, oil, or water company threatened to [...] follow up with him, his number is [phone] documented in this encounter Plan of Treatment Upcoming Encounters Date Type Department Care Team (Late st Contact Info) Description 01/24/2024 2:00 PM EST Office Visit Dermatology at [facility] [address] [place] [address] Prisca Hughes MD [facility] [address] PHOE[address] MUHAMM[place] [address] documented as of this encounter Visit Diagnoses Not on filedocumented in this encounter Care Teams Emt Relationship Specialty Start Date End Date Celio Sanders MD [address] [place] [address] PCP - General Internal Medicine 05/19/16 documented as of this encounter
--- OUTSIDE RECORDS SUMMARY | 2023-11-19 09:23 | XMS_ITS | Encounter Summary ---
Author Organization [facility] Address [facility] [place] [address] Care Team Providers Care Desktop Operator Name Role Phone Celio Sanders MD Primary Care Provider [phone] Encounter Details Date Type Department Care Team (Late Contact Info) Description 01/24/2023 [place] [phone] Nick Kelly MD [facility] [place] [address] Social History Tobacco Use Types Packs/Day Years [...] him about the pathology which showed GG5 ([place] 5+5) prostate cancer. He will f/u with Dr. Vazquez to discuss treatment options. documented in this encounter Plan of Treatment Upcoming Encounters Date Type Department Care Team (Late Contact Info) Description 01/24/2024 2:00 PM EST Office Visit Dermatology at [facility] [address] [place] [address] Prisca Hughes MD [facility] [address] [place] [address] documented as of this encounter Visit Diagnoses Not on filedocumented in this encounter Care Teams Desktop Operator Relationship Specialty Start Date End Date Celio Sanders MD [address] [place] [address] PCP - General Internal Medicine 05/19/16 documented as of this encounter
--- OUTSIDE RECORDS SUMMARY | 2023-11-19 09:23 | XMS_ITS | Encounter Summary ---
Author Organization [facility] Address [facility] [place] [address] Care Team Providers Care Driver Salesman Name Role Phone Celio Sanders MD Primary Care Provider [phone] Encounter Details Date Type Department Care Team (Late st Contact Info) Description 10/25/2023 10:00 AM EDT Telephone Hematology/Oncology at [address] [address] Shakila Manuel, [facility] [address] [place] [address] Social History Tobacco Use Types Packs/Day Years Used Date Smoking Tobacco: Never Smokeless Tobacco: Never Alcohol Use Standard Drinks/Week Comments Not Currently 0 (1 standard drink = 0.6 oz pur e alcohol) beer and wine twice a month [facility] Utilities Answer Date Recorded In the past 12 months has [employer], gas, oil, or water [employer] threatened to shut off services in your [...] encounter Miscellaneous Notes * Telephone Encounter - Shakila Manuel RD - 10/25/2023 11:03 AM EDT Nutrition Note Attempted to reach patient over the phone today for questions re: his diet per Deena Cheng NP. Left voicemail with callback number. documented in this encounter Plan of Treatment Upcoming Encounters Date Type Department Care Team (Late st Contact Info) Description 01/24/2024 2:00 PM EST Office Visit Dermatology at [facility] [address] [place] [address] Prisca Hughes MD [facility] [address] [place] [address] documented as of this encounter Visit Diagnoses Not on filedocumented in this encounter Care Teams Driver Salesman Relationship Specialty Start Date End Date Celio Sanders MD [address] [place] [address] PCP - General Internal Medicine 05/19/16 documented as of this encounter
--- OUTSIDE RECORDS SUMMARY | 2023-11-19 09:23 | XMS_ITS | Encounter Summary ---
[place] [address] Care Team Providers Care Accounting Intern Name Role Phone Celio Sanders MD Primary Care Provider [phone] Reason for Visit * Reason Comments Injections IM Lupron * Treatment/Therapy Plan Authorization (Routine) - Authorized Specialty Diagnoses / Procedures Referred By Contac t Referred To Contact Hematology and Oncology Diagnoses Recurrent prostate cancer Procedures TC LEUPROLIDE ACETATE 7.5MG, FOR DEPOST SUSPENSION (LUPRON DEPOT) Ronnie Vazquez MD [address] [place] [address] [place] [address] [facility] [address] [place] [address] Referral ID Status Reason Start Date Expiration Date V isits Requested Visits Authorized [id number] Authorized 02/17/2023 02/17/2024 1 103 Encounter Details Date Type Department Care Team (Late st Contact Info) Description 03/01/2023 11:30 AM EST Infusion Hematology Oncology at [address] [phone] Recurrent prostate cancer Social History Tobacco Use Types Packs/Day Years Used Date Smoking Tobacco: Never Smokeless Tobacco: Never Alcohol Use Standard Drinks/Week Comments Not Currently 0 (1 standard drink = 0.6 oz pur e alcohol) beer and wine twice a month [facility] Utilities Answer Date Recorded In the past 12 months has [employer], gas, oil, or water company threatened to [...] 2:00 PM EST Office Visit Dermatology at [address] [place] [address] Prisca Hughes MD [facility] [address] documented as of this encounter Visit Diagnoses [...] Gluteal documented in this encounter Care Teams Accounting Intern Relationship Specialty Start Date End Date Celio Sanders MD [address] [place] [address] PCP - General Internal Medicine 05/19/16 documented as of this encounter
--- OUTSIDE RECORDS SUMMARY | 2023-11-19 09:23 | XMS_ITS | Encounter Summary ---
Author Organization [facility] [place] [address] Care Team Providers Care Therapeutic Sales Specialist Name Role Phone Celio Sanders MD Primary Care Provider [phone] Encounter Details Date Type Department Care Team (Late st Contact Info) Description 01/31/2023 Telephone Radiation Oncology at [address] [phone] Ronnie Vazquez MD [address] [place] [address] DR RADIATION ONCOLOGY [place], [place] [id number] Social History Tobacco Use Types Packs/Day Years [...] Oncology Phone Note Ronnie Vazquez MD, MS [facility] [place] PATIENT NAME: Nain Mckeon DATE OF : [...] 2:00 PM EST Office Visit Dermatology at [facility] [address] [place] [address] Prisca Hughes MD [facility] [address] [place] [address] documented as of this encounter Visit Diagnoses Not on filedocumented in this encounter Care Teams Therapeutic Sales Specialist Relationship Specialty Start Date End Date Celio Sanders MD [address] [place] [address] PCP - General Internal Medicine 05/19/16 documented as of this encounter
--- OUTSIDE RECORDS SUMMARY | 2023-11-19 09:23 | XMS_ITS | Encounter Summary ---
Author Organization [facility] Address [facility] [place] [address] Care Team Providers Care Vocational Rehabilitation Specialist Name Role Phone Celio Sanders MD Primary Care Provider [phone] Encounter Details Date Type Department Care Team (Latest Contact Info) Description 06/21/2023 Travel Social History Tobacco Use Types Packs/Day Years Used Date Smoking Tobacco: Never Smokeless Tobacco: Never Alcohol Use Standard Drinks/Week Comments Not Currently 0 (1 standard drink = 0.6 oz pur e alcohol) beer and wine twice a month [facility] Utilities Answer Date Recorded In the [...] 2:00 PM EST Office Visit Dermatology at [facility] [address] [place] [address] Prisca Hughes MD [facility] [address] PH[address] [place] [address] documented as of this encounter Visit Diagnoses Not on filedocumented in this encounter Care Teams Vocational Rehabilitation Specialist Relationship Specialty Start Date End Date Celio Sanders MD [address] [place] [address] PCP - General Internal Medicine 05/19/16 documented as of this encounter
--- OUTSIDE RECORDS SUMMARY | 2023-11-19 09:23 | XMS_ITS | Encounter Summary ---
Author Organization [facility] Address [address] [place] [address] Care Team Providers Care Link Machine Operator Name Role Phone Unavailable Primary Care Provider Unavailabl e Encounter Details Date Type Department Care Team (Latest Contact Info) Description 04/27/2016 10:06 EST - 04/27/2016 23:59 EST Hospital Encounter [address] [address] Unknown, Provider, Discharge Disposition: Home or Self Care Social History Tobacco Use Types Packs/Day Years Used Date Smoking Tobacco: Never Assessed Sex and Gender Information Value Date Recorded Sex Assigned at Not on file Gender Identity Not on file Sexual Orientation Not on file documented as of this encounter Discharge Disposition Disposition Code Departure Means Destination Home or Self Group Home documented in this encounter Plan of Treatment Not on file documented as of this encounter Visit Diagnoses Not on filedocumented in this encounter
--- OUTSIDE RECORDS SUMMARY | 2023-11-19 09:23 | XMS_ITS | Encounter Summary ---
Author Organization [facility] Address [facility] [place] [address] Care Team Providers Care Manager Of Recruiting Name Role Phone Celio Sanders MD Primary Care Provider [phone] Reason for Visit * Reason Onset Date Comments Other 04/14/2023 Encounter Details Date Type Department Care Team (Late st Contact Info) Description 04/14/2023 Telephone Hematology/Oncology at [address] [phone] Caio Venegas RN Other Social History Tobacco Use Types Packs/Day Years Used Date Smoking Tobacco: Never Smokeless Tobacco: Never Alcohol Use Standard Drinks/Week Comments Not Currently 0 (1 standard drink = 0.6 oz pur e alcohol) beer and wine twice a month [facility] Utilities Answer Date Recorded In the past 12 months has [employer], gas, oil, or water company threatened [...] to report he was recently seen at [facility] ED after collapsing at local grocery. ED [...] 2:00 PM EST Office Visit Dermatology at [address] [place] [address] Prisca Hughes MD [facility] [address] [place] [address] documented as of this encounter Visit Diagnoses Not on filedocumented in this encounter Care Teams Manager Of Recruiting Relationship Specialty Start Date End Date Celio Sanders MD [address] [place] [address] PCP - General Internal Medicine 05/19/16 documented as of this encounter
--- OUTSIDE RECORDS SUMMARY | 2023-11-19 09:23 | XMS_ITS | Encounter Summary ---
Author Organization [facility] Address [facility] [place] [address] Care Team Providers Care Barrelhead Inspector Name Role Phone Celio Sanders MD Primary Care Provider [phone] Encounter Details Date Type Department Care Team (Late st Contact Info) Description 04/26/2023 10:00 AM EST Office Visit Hematology/Oncology at [address] [address] Harjinder Ruffin MD [facility] DR [place] [address] Bisi Cheng APRN [facility] [place] [address] Prostate cancer metastatic to intrapelvic lymph node (Primary Dx) Social History Tobacco Use Types Packs/Day Years Used Date Smoking Tobacco: Never Smokeless Tobacco: Never Alcohol Use Standard Drinks/Week Comments Not Currently 0 (1 standard drink = 0.6 oz pur e alcohol) beer and wine twice a month [facility] Utilities Answer Date Recorded In the past 12 months has [employer], gas, oil, or water company threatened [...] from the original note were not included. [facility] Medical Oncology [place] [id number] ONCOLOGY F/u visit REFERRING: Dr TaylorDr Diane [...] Mar 2018: pathogenic variant in BRCA2 (c.1929del, p.[id number] fs15). 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 Victorino Hassan at the [facility] Given his high Andre score question [...] observed, with no substantial between-group differences in [id number] measures. CONCLUSIONS In patients with prostate cancer with high-risk biochemical recurrence, enzalutamide plus leuprolide was superior to leuprolide alone with respect to metastasis-free survival; enzalutamide monotherapy was also superior to leuprolide alone. The safety profile of enzalutamide was consistent with that shown in previous clinical studies, with no apparent detrimental effect on quality of life. (Fundedby [employer]; [facility] ClinicalTrials.gov number, [id number]. opens in new tab.) On January 20 [...] follow-up with radiation oncologist [facility]. Hassan [facility] [place] can [place] him back in 3 [...] 2:00 PM EST Office Visit Dermatology at [facility] [address] [place] [address] Prisca Hughes MD [facility] DR [place] [address] Scheduled Orders Name Type Priority Associated Diagnoses [...] Primary documented in this encounter Care Teams Barrelhead Inspector Relationship Specialty Start Date End Date Celio Sanders MD [address] [place] [address] PCP - General Internal Medicine 05/19/16 documented as of this encounter
--- OUTSIDE RECORDS SUMMARY | 2023-11-19 09:23 | XMS_ITS | Clinical Summary ---
Author Organization [facility] Address [facility] [place] [address] Care Team Providers Care Sap Technical Developer Name Role Phone Celio Sanders MD Primary [...] Take 1 capsule by mouth daily. 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/07/2016 Recurrent prostate cancer 07/07/2016 Foreign travel 01/26/2011 Encounters Date Type Department Care Team Description 10/25/2023 10:00 AM EDT Telephone Hematology/Oncology at [address] [phone] 10/24/2023 1:30 PM EDT Office Visit Hematology/Oncology at [address] [address] Bisi Cheng APRN Recurrent prostate cancer; BRCA gene mutation positive 10/24/2023 Travel from Last 3 Months Immunizations Name [...] and wine twice a month [facility] Utilities Answer Date Recorded In [...] place to sleep or slept in a mcc (including now)? No 02/15/2023 Sex and Gender [...] 13.8 oz) 10/24/2023 1:35 PM EDT Height 161.9 cm (5' 3.74) 07/19/2023 1:05 PM ED T Body Mass Index 31.82 07/19/2023 1:05 PM EDT Plan of Treatment Upcoming Encounters Date Type Department Care Team (Late st Contact Info) Description 01/24/2024 2:00 PM EST Office Visit Dermatology at [facility] [address] [place] [address] Prisca Hughes MD [facility] [address] [place] [address] Health Maintenance Due Date Last Done Comments CT Colonography 1950 FIT DNA 1950 FIT 1950 Sigmoidoscopy 1950 Hepatitis C Screening 1966 Tdap adult 09/19/1967 Tetanus vaccine 09/19/1967 Zoster vaccine (1 of 2) 1998 Advance Directive 09/19/2003 Pneumoccocal Vaccine: 65+ (1 of 1 - PCV) 2013 Covid-19 Vaccine (2 - 2022-24 season) 2023 Influenza (Flu) vaccine (1 o f 1 - Influenza standard series) 11/06/2023 01/25/2011 Colonoscopy 05/13/2031 05/12/2021, 05/12/2021 Colorectal Cancer Screening 05/13/2031 Sigmoidoscopy (10 year) with FIT yearly 05/13/2031 0 05/12/2021, 05/12/2021 Procedures Procedure Name Priority Date/Time Associated Diagnosis Comments LAB SCAN 10/12/2023 12:00 AM EDT LAB SCAN 10/12/2023 12:00 AM EDT COLONOSCOPY Routine 05/12/2021 2:18 PM EST from Last 3 Months or Most Recently Relevant to Health Maintenance Results * Scan Doc: Lab (10/12/2023 12:00 AM EDT) Only the most recent of2 resultswithin the time period is included. Narrative 10/12/2023 12:00 AM EDT Ordered by an unspecified provider. Scanning Provider MEDIA MGR SCAN EXT O RDR/RSLT * COLONOSCOPY (05/12/2021 2:18 PM EST) COLONOSCOPY [facility] Endoscopy Procedure Date: 05/12/2021 2:18 PM ? Patient Name: Nain Mckeon ? Date of : 1950 ? Age: 70 ? Order #: [id number] ? Instrument Name: [id number] ? Procedure: ? Colonoscopy Indications: ? Screening patient at increased risk: ? Family history of 1st-degree relative ? with colorectal cancer at age 60 ? years (or older) Providers: ? Nicky Bray MD, Sav Platt ? Ivon Angel, Professor Of Psychiatry Referring : ?Celio Sanders MD Medicines: ? Monitored Anesthesia [...] preparation was ? evaluated using the BBPS ([place] ? Bowel Preparation Scale) with scores ? [...] Procedure Code(s): ?? --- Professional --- ? 53952, Colonoscopy, flexible; with ? removal of tumor(s), polyp(s), or ? other lesion(s) by snare technique CPT copyright 2019 [employer] [employer]. All rights reserved. The codes documented in this report are preliminary and upon sql consultant review may be revised to meet current [...] discussion: Pt desires full code. Care Teams Sap Technical Developer Relationship Specialty Start Date End Date Celio Sanders MD [address] [place] [address] PCP - General Internal Medicine 05/19/16
--- OUTSIDE RECORDS SUMMARY | 2023-11-19 09:23 | XMS_ITS | Encounter Summary ---
Author Organization [facility] Address [facility] [place] [address] Care Team Providers Care Kinesiologist Name Role Phone Celio Sanders MD Primary Care Provider [phone] Encounter Details Date Type Department Care Team (Late st Contact Info) Description 02/17/2023 Orders Only Radiation Oncology at [address] [phone] Ronnie Vazquez MD [address] [place] [address] DR RADIATION ONCOLOGY [place], [place] [id number] Social History Tobacco Use Types Packs/Day Years Used Date Smoking Tobacco: Never Smokeless Tobacco: Never Alcohol Use Standard Drinks/Week Comments Not Currently 0 (1 standard drink = 0.6 oz pur e alcohol) beer and wine twice a month [facility] Utilities Answer Date Recorded In the past [address], gas, oil, or water [employer] threatened to shut off services in your [...] PM EST Office Visit Dermatology at [facility] [address] [place] [address] Prisca Hughes MD [facility] DR [place] [address] documented as of this encounter Visit Diagnoses Not on filedocumented in this encounter Care Teams Kinesiologist Relationship Specialty Start Date End Date Celio Sanders MD [address] [place] [address] PCP - General Internal Medicine 05/19/16 documented as of this encounter
--- OUTSIDE RECORDS SUMMARY | 2023-11-19 09:23 | XMS_ITS | Encounter Summary ---
Author Organization [facility] Address [facility] [place] [address] Care Team Providers Care Customs Collector Name Role Phone Celio Sanders MD Primary Care Provider [phone] Reason for Visit * Reason Onset Date Comments Other 02/23/2023 Enrolled in [employer] Encounter Details Date Type Department Care Team (Late st Contact Info) Description 02/23/2023 Telephone Hematology/Oncology at [address] [phone] Tracy Reno RN Other (Enrolled in [employer]) Social History Tobacco Use Types Packs/Day Years Used Date Smoking Tobacco: Never Smokeless Tobacco: Never Alcohol Use Standard Drinks/Week Comments Not Currently 0 (1 standard drink = 0.6 oz pur e alcohol) beer and wine twice a month [facility] Utilities Answer Date Recorded In the past 12 months has [employer], gas, oil, or water [employer] threatened to shut off services in your [...] place to sleep or slept in a nursing home (including now)? No 02/15/2023 Sex and Gender Information Value Date Recorded Sex Assigned at Not on file Gender Identity Not on file Sexual Orientation Not on file documented as of this encounter Miscellaneous Notes * Telephone Encounter - Tracy Reno RN - 02/23/2023 9:39 AM EST Enrolled patient electronically into [employer] with his permission due to high copayand no funding available. New script sent electronically to [facility] pharmacy. Await to hear that patient qualifies for free X[employer]. [employer] support [employer] phone [phone] documented in this encounter Plan of Treatment Upcoming Encounters Date Type Department Care Team (Late st Contact Info) Description 01/24/2024 2:00 PM EST Office Visit Dermatology at [facility] [address] [place] [address] Prisca Hughes MD [facility] DR [place] [address] documented as of this encounter Visit Diagnoses Not on filedocumented in this encounter Care Teams Customs Collector Relationship Specialty Start Date End Date Celio Sanders MD [address] [place] [address] PCP - General Internal Medicine 05/19/16 documented as of this encounter
--- OUTSIDE RECORDS SUMMARY | 2023-11-19 09:23 | XMS_ITS | Encounter Summary ---
Author Organization [facility] Address [facility] [place] [address] Care Team Providers Care Sharemilker Name Role Phone Celio Sanders MD Primary Care Provider [phone] Encounter Details Date Type Department Care Team (Latest Contact Info) Description 04/26/2023 Travel Social History Tobacco Use Types Packs/Day Years Used Date Smoking Tobacco: Never Smokeless Tobacco: Never Alcohol Use Standard Drinks/Week Comments Not Currently 0 (1 standard drink = 0.6 oz pur e alcohol) beer and wine twice a month [facility] Utilities Answer Date Recorded In the [...] PM EST Office Visit Dermatology at [facility] [address] [place] [address] Prisca Hughes MD [facility] DR [address] [place] [address] documented as of this encounter Visit Diagnoses Not on filedocumented in this encounter Care Teams Sharemilker Relationship Specialty Start Date End Date Celio Sanders MD [address] [place] [address] PCP - General Internal Medicine 05/19/16 documented as of this encounter
--- OUTSIDE RECORDS SUMMARY | 2023-11-19 09:23 | XMS_ITS | Encounter Summary ---
Author Organization [facility] Address [facility] [place] [address] Care Team Providers Care Crushing Machine Operator Name Role Phone Celio Sanders MD Primary Care Provider [phone] Encounter Details Date Type Department Care Team [...] 2:00 PM EST Office Visit Dermatology at [facility] [address] [place] [address] Prisca Hughes MD [facility] DR [address] [place] [address] documented as of this encounter Visit Diagnoses Not on filedocumented in this encounter Care Teams Crushing Machine Operator Relationship Specialty Start Date End Date Celio Sanders MD [address] [place] [address] PCP - General Internal Medicine 05/19/16 documented as of this encounter
--- OUTSIDE RECORDS SUMMARY | 2023-11-19 09:23 | XMS_ITS | Encounter Summary ---
Author Organization [facility] Address [facility] [place] [address] Care Team Providers Care Electrician Marine Name Role Phone Celio Sanders MD Primary Care Provider [phone] Encounter Details Date Type Department Care Team [...] 2:00 PM EST Office Visit Dermatology at [facility] [address] [place] [address] Prisca Hughes MD [facility] DR PHOE[address] [place] [address] documented as of this encounter Visit Diagnoses Not on filedocumented in this encounter Care Teams Electrician Marine Relationship Specialty Start Date End Date Celio Sanders MD [address] [place], [place] [address] PCP - General Internal Medicine 05/19/16 documented as of this encounter
--- OUTSIDE RECORDS SUMMARY | 2023-11-19 09:23 | XMS_ITS | Encounter Summary ---
Author Organization [facility] Address [facility] [place] [address] Care Team Providers Care Animal Caregiver Name Role Phone Celio Sanders MD Primary Care Provider [phone] Encounter Details Date Type Department Care Team (Late st Contact Info) Description 02/17/2023 Orders Only Radiation Oncology at [address] [phone] Ronnie Vazquez MD [address] [place] [address] DR RADIATION ONCOLOGY [place], [place] [phone] Social History Tobacco Use Types Packs/Day Years Used Date Smoking Tobacco: Never Smokeless Tobacco: Never Alcohol Use Standard Drinks/Week Comments Not Currently 0 (1 standard drink = 0.6 oz pur e alcohol) beer and wine twice a month [facility] Utilities Answer Date Recorded In the past 12 months has [employer], gas, oil, or water [employer] threatened to shut off services in your [...] 2:00 PM EST Office Visit Dermatology at [facility] [address] [place] [address] Prisca Hughes MD [facility] DR PHOE[address] MUHAMM[place] [address] documented as of this encounter Visit Diagnoses Not on filedocumented in this encounter Care Teams Animal Caregiver Relationship Specialty Start Date End Date Celio Sanders MD [address] [place] [address] PCP - General Internal Medicine 05/19/16 documented as of this encounter
--- OUTSIDE RECORDS SUMMARY | 2023-11-19 09:23 | XMS_ITS | Encounter Summary ---
Author Organization [facility] Address [facility] [place] [address] Care Team Providers Care Valet Manager Name Role Phone Celio Sanders MD Primary Care Provider [phone] Encounter Details Date Type Department Care Team (Late st Contact Info) Description 07/20/2023 2:30 PM EDT TH Visit (TeleHealth) Radiation Oncology at [address] [phone] Ronnie Vazquez MD [address] [place] [address] DR RADIATION ONCOLOGY [place], [place] [phone] Prostate cancer metastatic to intrapelvic lymph node; Recurrent prostate cancer Social History Tobacco Use Types Packs/Day Years Used Date Smoking Tobacco: Never Smokeless Tobacco: Never Alcohol Use Standard Drinks/Week Comments Not Currently 0 (1 standard drink = 0.6 oz pur e alcohol) beer and wine twice a month [facility] Utilities Answer Date Recorded In the past 12 months has [employer], [employer], oil, or water [employer] threatened to shut off services in your [...] Oncology Phone Note Ronnie Vazquez MD, MS [facility] PATIENT NAME: Nain Mckeon [...] 2:00 PM EST Office Visit Dermatology at [address] [address] Prisca Hughes MD [facility] DR [place] [address] documented as of this encounter Visit Diagnoses Diagnosis Prostate cancer metastatic to intrapelvic lymph node Recurrent prostate cancer documented in this encounter Care Teams Valet Manager Relationship Specialty Start Date End Date Celio Sanders MD [address] [place] [address] PCP - General Internal Medicine 05/19/16 documented as of this encounter
--- OUTSIDE RECORDS SUMMARY | 2023-11-19 09:23 | XMS_ITS ---
Author Organization [facility] Address [facility] [place] [address] Care Team Providers Care Yard Brakeman Name Role Phone Celio Sanders MD Primary [...] Current Oncology Plans Leuprolide (Lupron Depot) injection ([facility], [facility], [facility], [facility], [facility], [facility])* Plan Start Date:03/01/2023 Plan Provider:Ronnie Vazquez MD [...] Discontinue Reason Plan Provider Degarelix (Firmagon) Injection ([facility], [facility], [facility] HemOnc) New Patient Induction 02/03/2023 04/26/2023 No medications scheduled. Therapy Complete Ronnie Vazquez MD Radiation Treatments * No radiation treatments are documented for this patient in Epic. Treatments may have been administered in another system.
--- OUTSIDE RECORDS SUMMARY | 2023-11-19 09:23 | XMS_ITS | Encounter Summary ---
Author Organization [facility] Address [facility] [place] [address] Care Team Providers Care Lab Systems Analyst Name Role Phone Celio Sanders MD Primary Care Provider [phone] Reason for Visit * Consultation (Routine) - Closed Specialty Diagnoses / Procedures Referred By Contac t Referred To Contact Hematology and Oncology Diagnoses Prostate cancer metastatic to intrapelvic lymph node Ronnie Vazquez MD [address] [place] [address] [place] [address] Harjinder Ruffin MD [facility] [place] [address] Referral ID Status Reason Start Date Expiration Date V isits Requested Visits Authorized [id number] Closed Consult, Test & Treat 02/01/2023 02/01/2024 1 1 Encounter Details Date Type Department Care Team (Late st Contact Info) Description 02/15/2023 3:00 PM EST Office Visit Hematology/Oncology at [address] [phone] Harjinder Ruffin MD [facility] [place] [address] Bisi Cheng APRN [facility] [place] [place] [address] Malignant neoplasm of prostate; BRCA gene mutation positive Social History Tobacco Use Types Packs/Day Years Used Date Smoking Tobacco: Never Smokeless Tobacco: Never Alcohol Use Standard Drinks/Week Comments Not Currently 0 (1 standard drink = 0.6 oz pur e alcohol) beer and wine twice a month [facility] Utilities Answer Date Recorded In [...] Reno RN - 02/15/2023 3:00 PM EST [facility] New Patient Medical Oncology Note SOCIAL ASSESSMENT: See [facility] social assessment information entered. 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 [facility] [place] [address] ONCOLOGY F/u visit REFERRING: Dr Vazquez, Dr [...] biopsy revealed prostatic adenocarcinoma, Grade Group 5 ([place] score 5+5=10) Genetic testing Mar 2018: pathogenic variant in BRCA2 (c.1929del, p.[id number] fs15). 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 PS: ECOG = 0 General: NAD Deferred Pathology: 01/20/2023 prostatic adenocarcinoma, Grade Group 5 ([place] score 5+5=10) LABS: 02/15/2023 BUN 31, creatinine [...] radiation oncologist Dr. Victorino Hassan at the [facility] Given his high Andre score [...] observed, with no substantial between-group differences in ujjpvec-gy-[id number] measures. CONCLUSIONS In patients with prostate cancer with high-risk biochemical recurrence, enzalutamide plus leuprolide was superior to leuprolide alone with respect to metastasis-free survival; enzalutamide monotherapy was also superior to leuprolide alone. The safety profile of enzalutamide was consistent with that shown in previous clinical studies, with no apparent detrimental effect on quality of life. (Fundedby [employer] and [employer]; [employer] ClinicalTrials.gov number, [id number]. opens in new tab.) On January 20 [...] PM EST Office Visit Dermatology at [facility] [address] [place] [address] Prisca Hugehs MD [facility] [address] [place] [address] Scheduled Referrals Name Type Priority Associated Diagnoses Orde r Schedule Referral to Hematology and Oncology Outpatient Referral Routine Prostate cancer metastatic to intrapelvic lymph node Ordered: 02/01/2023 documented as of this encounter Visit Diagnoses Diagnosis Malignant neoplasm of prostate BRCA gene mutation positive documented in this encounter Care Teams Lab Systems Analyst Relationship Specialty Start Date End Date Celio Sanders MD [address] [place] [address] PCP - General Internal Medicine 05/19/16 documented as of this encounter
--- OUTSIDE RECORDS SUMMARY | 2023-11-19 09:23 | XMS_ITS | Encounter Summary ---
Author Organization [facility] Address [address] [place] [address] Care Team Providers Care Life Skills Instructor Name Role Phone Celio Sanders MD Primary Care Provider [phone] Encounter Details Date Type Department Care Team (Late st Contact Info) Description 06/17/2016 Results Only [facility] [phone] Elias Curran MD [address] [place] [address] [place] [phone] Social History Tobacco Use Types Packs/Day Years [...] ? NAIN LIPSCOMB ? Accession #: ? [id number] : ? 1950 (Age: 65) ??M ?Collect [...] cellular enhancement technique. ? End of Report [facility] 06/17/2016 06/18/2016 8:2 8 EDT Eilas Curran MD PATHOLOGY ORDERAB LES Performing Organization Address City/State/[facility] Co de Phone Number [facility] [address] [place] [address] documented in this encounter Visit Diagnoses Not on filedocumented in this encounter Care Teams Life Skills Instructor Relationship Specialty Start Date End Date Celio Sanders MD [address] [place] [address] PCP - General 04/30/16 documented as of this encounter
--- OUTSIDE RECORDS SUMMARY | 2023-11-19 09:23 | XMS_ITS | Encounter Summary ---
[place] [address] Care Team Providers Care Shipping And Receiving Clerk Name Role Phone Celio Sanders MD Primary Care Provider [phone] Reason for Visit * Reason Comments Injections IM Lupron * Treatment/Therapy Plan Authorization (Routine) - Authorized Specialty Diagnoses / Procedures Referred By Contac t Referred To Contact Hematology and Oncology Diagnoses Recurrent prostate cancer Procedures TC LEUPROLIDE ACETATE 7.5MG, FOR DEPOST SUSPENSION (LUPRON DEPOT) Ronnie Vazquez MD [address] [place] [address] [place] [address] [facility] [address] [place] [address] Referral ID Status Reason Start Date Expiration Date V isits Requested Visits Authorized [id number] Authorized 02/17/2023 02/17/2024 1 103 Encounter Details Date Type Department Care Team (Late st Contact Info) Description 05/24/2023 11:30 AM EDT Infusion Hematology Oncology at [address] [phone] Recurrent prostate cancer Social History Tobacco Use Types Packs/Day Years Used Date Smoking Tobacco: Never Smokeless Tobacco: Never Alcohol Use Standard Drinks/Week Comments Not Currently 0 (1 standard drink = 0.6 oz pur e alcohol) beer and wine twice a month [facility] Utilities Answer Date Recorded In the past 12 months has [employer], gas, oil, or water company threatened to [...] 2:00 PM EST Office Visit Dermatology at [address] [place] [address] Prisca Hughes MD [facility] DR PH[address] [place] [address] documented as of this encounter Visit Diagnoses Diagnosis Recurrent prostate cancer documented in this encounter Administered Medications Inactive Administered Medications - up to 3 most recent administrations Medication Order MAR Action Action Date Dose Rate Site leuprolide (Lupron Depot) injection 7.5 mg 7.5 mg, Intramuscular, ONCE, 1 dose, On Tue05/24/23 at 1230, Last injection site was... leuprolide IM injection site: L Gluteal (03/29/2023 10:59 AM), Routine, This agent is restricted to outpatient use. Is this drug being given as an outpatient? Yes Given 05/24/2023 12:22 PM EDT 7.5 mg Left Gluteal documented in this encounter Care Teams Shipping And Receiving Clerk Relationship Specialty Start Date End Date Celio Snaders MD [address] [place] [address] PCP - General Internal Medicine 05/19/16 documented as of this encounter
--- OUTSIDE RECORDS SUMMARY | 2023-11-19 09:24 | XMS_ITS | Encounter Summary ---
Author Organization [facility] Address [facility] [place] [address] Care Team Providers Care Respiratory Tech Name Role Phone Celio Sanders MD Primary Care Provider [phone] Encounter Details Date Type Department Care Team (Late Contact Info) Description 04/30/2022 Orders Only [place] [address] Rama Ramos APRN [facility] [place] [address] Malignant neoplasm of prostate (Primary Dx); Vitamin [...] PM EST Office Visit Dermatology at [facility] [address] [place] [address] Prisca Hughes MD [facility] DR [place] [address] documented as of this encounter Visit Diagnoses Diagnosis Malignant neoplasm of prostate- Primary Vitamin D deficiency, unspecified documented in this encounter Care Teams Respiratory Tech Relationship Specialty Start Date End Date Celio Sanders MD [address] [place] [address] PCP - General Internal Medicine 05/19/16 documented as of this encounter
--- OUTSIDE RECORDS SUMMARY | 2023-11-19 09:24 | XMS_ITS | Encounter Summary ---
Author Organization [facility] Address [facility] [place] [address] Care Team Providers Care Director Of Planning Name Role Phone Celio Sanders MD Primary Care Provider [phone] Encounter Details Date Type Department Care Team (Late st Contact Info) Description 05/11/2022 10:15 AM EST Office Visit Radiation Oncology at [address] [phone] Rama Ramos APRN [facility] [place] [address] Malignant neoplasm of prostate (Primary Dx) Social [...] this encounter Progress Notes * Rama Ramos, MELT DOWN FURNACE OPERATOR - 05/11/2022 10:15 AM ESTSummary: 71 year old M dx high risk prostate cancer. Compl RT 10/27/16. Compl 3 years ADT w/ final dose 05/2019 [facility] [place] [address] Phone: RADIATION ONCOLOGY FOLLOW UP NOTE Patient Nain Mckeon 1950 PCP: Celio Sanders MD Urologist: Radiation oncologist: Dr. Ronnie Vazquez Chief Complaint: follow up/labs for prostate cancer Time since completed RT:10/27/16 ADT:3 years of Lupron or eligard with last dose 05/04/2019 Tried and stopped abiraterone /pred d/t not patrick pred with bipolar d.o. This was started in [place] and ended when he returned to [place]. [...] 5/12 cores (all on right side), T2b, [place] 8 Darlyn-neural invasion present PSA - 47.5 [...] LN no longer seen). Pt was in [place] for a period of 5 months and he received a 22.5mg leuprolide there on 05/15/2018. The facility [facility] and Provider Sp Coreas MD. 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 Smoking:none [...] of manic sx. He had this in [place] during a visitthere but only on x 1 month and could not tolerate so stopped as soon as return to [place]. Concern at this time is that while there are no urinary sx of concern and seeing urology in summer,had a smooth prostate he now had doubling time of 6 months in January with PSA 0.56 and now effectively almost doubled in 3 months with and PSA rise to 0.98. While making a couple of trips of several months to [place] during his lupron tx period, he did [...] lupron and eligard in past (eligard in [place] when he was there for a period of 5months) x 3 years. Abiraterone and pred started in [place] he states and tried but did not tolerate the prednisone as he experienced manic sx so needed to stop this combo when he returned to [place]. Regino not see dates on this. I do not think he has tried enzalutamide. He was aware at one point that a possible return to lupron might be needed but his Dr in [place] stated in note reluctance to dothis based on penitentiary CV risk factors. There is also an added risk of CV dz in use of antipsychotics which pt requires for management of bipolar disorder. # survivorship/lifestyle/wellness: Genetic Risk Evaluation: Body weight/nutrition: Exercise: swims 3-4 days a week. Plays Wang[employer] ball. He fx wrist a couple weeks [...] the radiation therapy/prostate cancer Rama Ramos MSN, MELT DOWN FURNACE OPERATOR, FUNERAL HOME ASSOCIATE-C Nurse Practitioner Radiation Oncology documented in this encounter Plan of Treatment Upcoming Encounters Date Type Department Care Team (Late st Contact Info) Description 01/24/2024 2:00 PM EST Office Visit Dermatology at [facility] [address] [place] [address] Prisca Hughes MD [facility] DR PHOEBE IBAR[place] [address] documented as of this encounter Visit Diagnoses Diagnosis Malignant neoplasm of prostate- Primary documented in this encounter Care Teams Director Of Planning Relationship Specialty Start Date End Date Celio Sanders MD [address] [place] [address] PCP - General Internal Medicine 05/19/16 documented as of this encounter
--- OUTSIDE RECORDS SUMMARY | 2023-11-19 09:24 | XMS_ITS | Encounter Summary ---
Author Organization [facility] Address [facility] [place] [address] Care Team Providers Care Director Social Service Name Role Phone Celio Sanders MD Primary Care Provider Encounter Details Date Type Department Care Team (Late st Contact Info) Description 12/28/2019 2:30 PM EDT Office Visit Hematology/Oncology at [address] [phone] Remy Barillas MD [facility] [place] [address] Swathi Uriostegui APRN [address] [place] [address] DR HEMATOLOGY ONCOLOGY [place], [place] [id number] Prostate cancer metastatic to intrapelvic lymph node [...] a pathogenic variant (mutation) in BRCA2 specifically c.1929del(p.[id number]). 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 At the time of the appointment,??Tasiawas provided with a printed copy of his??test result and an informational packet addressing a positive test result. ?? The following??47??genes were evaluated for sequence changes and exonic deletions/duplications: APC, RUMA, AXIN2, BARD1, BMPR1A, BRCA1, BRCA2, BRIP1, CDH1, CDK4, CDKN2A (p14ARF), CDKN2A (u64HOV7o), CHEK2, CTNNA1, DICER1, EPCAM (EPCAM: Deletion/duplication testing [...] (VUS) in the AXIN2 and CTNNA1??genes, specifically c.1531A>T(p.Eum781Mrl) and c.515A>T (p.Crh852Rqh), were??detected. ? Interpretation: The most significant consequences [...] with them. ?? Nain's sons live in [place] and [place]. ??They can go to the website of [...] and mailing address stay updated in the [facility], in order for us to [...] possibility in the future,??Dr. Ara Mary, a propeller tester at [facility] in [place], is willing to discuss these screening options with Nain.??Nain??can schedule an appointment with her by reaching her special education secretary at [phone]. ?? Prostate Cancer Screening for Nain's sons ? Prostate cancer screening starting at age 40.?If either of them is found to not have the BRCA2 mutation then they can consider screening beginning at age 50 which is the recommendation for menin the general population ?? Skin cancer screening ?? Periodic skin exams ?? Colon cancer screening ?? Periodic colonoscopy screening as recommended by??Nain's propeller tester. ?. ??SUMMARY ASSESSMENT/PLAN 07/24 He was diagnosed with prostate cancer in 2016 after presenting with hematuria and found to have an abnormal prostate gland on exam. TRUS prostate bx showed adenocarcinoma in 5/12 cores, all on the right. Boardman score was 8 in two of the [...] PSA. ? Soc Hx: , lives in [place], [place]. He goes to [place] from December to June. 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 Fam Hx: Father with prostate cancer [...] returns to the [facility] oncology clinic in [facility] today for follow up surveillance visit with PSA review. His last Lupron injection was 04/26. Nain reports he recently had a major depressive episode and is currently living in transitional housing following an inpatient stay at the [facility] about 3 weeks ago. Nain says [...] as summarized above.) Nain returns to the [facility] onc[facility] clinic in [facility] today for follow up surveillance [...] 2:00 PM EST Office Visit Dermatology at [facility] [address] [place] [address] Prisca Hughes MD [facility] [address] [facility] [place] [address] documented as of this encounter Visit Diagnoses Diagnosis Prostate cancer metastatic to intrapelvic lymph node documented in this encounter Care Teams Director Social Service Relationship Specialty Start Date End Date Celio Sanders MD [address] [place] [address] PCP - General Internal Medicine 05/19/16 documented as of this encounter
--- OUTSIDE RECORDS SUMMARY | 2023-11-19 09:24 | XMS_ITS | Encounter Summary ---
Author Organization [facility] Address [facility]leine [facility] [address] Care Team Providers Care Casting Director Name Role Phone Celio Sanders MD Primary Care Provider [phone] Encounter Details Date Type Department Care Team (Late st Contact Info) Description 10/20/2022 11:20 AM EDT Office Visit Dermatology at [facility] [address] [place] [address] Ernst Rinaldi MD [facility] [address] [facility] [place] [address] Actinic keratoses; Seborrheic keratoses; Multiple benign nevi; [...] left earlobe x1, left cheek x1, left advent x1, right forearm x1, right arm x1, [...] 1 year for FSE []Note routed to school secretary [x]Recall placed in scheduling system []Appointment scheduled at checkout Scribe attestation: Osmani Glez has performed the documentation for this encounter in the presence of and acting as a scribe for Ernst Rinaldi MD. I performed the above scribed service and agree with the accuracy of the documentation in this encounter. Reviewed and signed by: Ernst Rinaldi MD Dermatology [facility] Patient seen and evaluated with staff core analysis operator: Gaye Hicks MD Dermatology [facility] * Gaye Hicks MD - 10/20/2022 11:20 [...] 2:00 PM EST Office Visit Dermatology at [facility] [address] [place] [address] Prisca Hughes MD [facility] DR [facility] [place] [address] documented as of this encounter Visit Diagnoses Diagnosis Actinic keratoses Actinic keratosis Seborrheic keratoses Multiple benign nevi Benign neoplasm of skin, site unspecified Lentigines Other dyschromia Gee angioma Nevus, non-neoplastic documented in this encounter Care Teams Casting Director Relationship Specialty Start Date End Date Celio Sanders MD [address] [place] [address] PCP - General Internal Medicine 05/19/16 documented as of this encounter
--- OUTSIDE RECORDS SUMMARY | 2023-11-19 09:24 | XMS_ITS | Encounter Summary ---
Author Organization [facility] Address [facility] [place] [address] Care Team Providers Care Manufacturing Engineering Professor Name Role Phone Celio Sanders MD Primary Care Provider [phone] Encounter Details Date Type Department Care Team (Late st Contact Info) Description 02/09/2021 Telephone [place] [phone] Dori Maharaj Social History Tobacco Use Types [...] - 02/09/2021 12:01 PM EST Nain Mckeon [id number] Diagnosis/Indication: BRCA gene mutation positive 1. Have [...] 2:00 PM EST Office Visit Dermatology at [facility] [address] [place] [address] Prisca Hughes MD [facility] DR [address] [place] [address] documented as of this encounter Visit Diagnoses Not on filedocumented in this encounter Care Teams Manufacturing Engineering Professor Relationship Specialty Start Date End Date Celio Sanders MD [address] [place] [address] PCP - General Internal Medicine 05/19/16 documented as of this encounter
--- OUTSIDE RECORDS SUMMARY | 2023-11-19 09:24 | XMS_ITS | Encounter Summary ---
Author Organization [facility] Address [facility] [place] [address] Care Team Providers Care Corporate Meeting Planner Name Role Phone Celio Sanders MD Primary Care Provider Encounter Details Date Type Department Care Team (Late st Contact Info) Description 02/09/2021 Tele[place] [phone] Dori Maharaj Social History Tobacco Use Types [...] 2:00 PM EST Office Visit Dermatology at [facility] [address] [place] [address] Prisca Hughes MD [facility] [address] [place] [address] documented as of this encounter Visit Diagnoses Not on filedocumented in this encounter Care Teams Corporate Meeting Planner Relationship Specialty Start Date End Date Celio Sanders MD [address] [place] [address] PCP - General Internal Medicine 05/19/16 documented as of this encounter
--- OUTSIDE RECORDS SUMMARY | 2023-11-19 09:24 | XMS_ITS | Encounter Summary ---
[place] [address] Care Team Providers Care Crimping Machine Operator Name Role Phone Celio Sanders MD Primary Care Provider [phone] Reason for Referral * Diagnostic Test (Routine) - Closed Specialty Diagnoses / Procedures Referred By Contac t Referred To Contact Radiology Diagnoses Malignant neoplasm of prostate Procedures NM PET CT PSMA Prostate (Illuccix) Rama Ramos NURSE SUPERVISOR [facility] [place] [address] [place] [address] Referral ID Status Reason Start Date Expiration Date V isits Requested Visits Authorized [id number] Closed Specialty Service Requested 10/12/2022 04/14/2024 1 2 Reason for Visit * Diagnostic Test (Routine) - Closed Specialty Diagnoses / Procedures Referred By Contac t Referred To Contact Radiology Diagnoses Malignant neoplasm of prostate Procedures NM PET CT PSMA Prostate (Illuccix) Rama Ramos NURSE SUPERVISOR [facility] [place] [address] [place] [address] Referral ID Status Reason Start Date Expiration Date V isits Requested Visits Authorized [id number] Closed Specialty Service Requested 10/12/2022 04/14/2024 1 2 Encounter Details Date Type Department Care Team (Latest Contact Info) Description 11/09/2022 1:29 PM EDT - 11/09/2022 11:59 PM EDT Hospital Encounter Nuclear Medicine at [facility] [place] [address] Rama Ramos NURSE SUPERVISOR [facility] [place] [address] Malignant neoplasm of prostate Discharge Disposition: Home [...] 2:00 PM EST Office Visit Dermatology at [address] [place] [address] Prisca Hughes MD [facility] DR [place] [address] documented as of this encounter Procedures Procedure [...] Thank you for referring this patient to [facility]. I have personally [...] who have questions please contact the health day care provider that requested your imaging first. ? Electronically signed by: Matthew Price MD, [facility] ([phone]), at 11/09/2022 4:44 PM Narrative 11/09/2022 4:44 [...] Thank you for referring this patient to [facility]. I have personally reviewed the image(s) and the resident's interpretationand agree with the findings, Matthew Price MD at 11/09/2022 4:44 PM Thank you for letting us participate in the care of this patient. If youare a health care provider and have any questions regarding this report,please contact the number below. For patients who have questions please contactthe health day care provider that requested your imaging first. Electronically signed by: Matthew Price MD, [facility]([phone]), at 11/09/2022 4:44 PM Rama Ramos NURSE SUPERVISOR IMG PET ORDERABLES documented in this encounter [...] Arm documented in this encounter Care Teams Crimping Machine Operator Relationship Specialty Start Date End Date Celio Sanders MD [address] [place] [address] PCP - General Internal Medicine 05/19/16 documented as of this encounter
--- OUTSIDE RECORDS SUMMARY | 2023-11-19 09:24 | XMS_ITS | Encounter Summary ---
Author Organization [facility] Address [facility] [place] [address] Care Team Providers Care Disulfurizer Tender Name Role Phone Celio Sanders MD Primary Care Provider [phone] Encounter Details Date Type Department Care Team [...] 2:00 PM EST Office Visit Dermatology at [facility] [address] [place] [address] Prisca Hughes MD [facility] [address] [place] [address] documented as of this encounter Visit Diagnoses Not on filedocumented in this encounter Care Teams Disulfurizer Tender Relationship Specialty Start Date End Date Celio Sanders MD [address] [place], [place] [address] PCP - General Internal Medicine 05/19/16 documented as of this encounter
--- OUTSIDE RECORDS SUMMARY | 2023-11-19 09:24 | XMS_ITS | Encounter Summary ---
[place] [address] Care Team Providers Care Metal Burrer Name Role Phone Celio Sanders MD Primary Care Provider Reason for Referral * Consultation (Routine) - Closed Specialty Diagnoses / Procedures Referred By Tess t Referred To Contact Hematology and Oncology Diagnoses Malignant neoplasm of prostate Rama Ramos APRN [facility] [place] [address] [facility] [address] [place] [address] Referral ID Status Reason Start Date Expiration Date V isits Requested Visits Authorized [id number] Closed Assume Subset of Care 10/12/2022 10/12/2023 1 1 * Diagnostic Test (Routine) - Closed Specialty Diagnoses / Procedures Referred By Contac t Referred To Contact Radiology Diagnoses Malignant neoplasm of prostate Procedures NM PET CT PSMA Prostate (Illuccix) Rama Ramos LOCAL AREA NETWORK SYSTEMS ADMINSTRATOR [facility] [place] [address] [facility] [place] [address] Referral ID Status Reason Start Date Expiration Date V isits Requested Visits Authorized [id number] Closed Specialty Service Requested 10/12/2022 04/14/2024 1 2 Encounter Details Date Type Department Care Team (Late st Contact Info) Description 10/12/2022 9:30 AM EDT Office Visit Radiation Oncology at [address] [phone] Rama Ramos APRN [facility] [place] [address] Malignant neoplasm of prostate (Primary [...] 3 years ADT w/ final dose 05/2019 [facility] [place] [address] Phone: RADIATION ONCOLOGY FOLLOW UP NOTE Patient Nain Mckeon 1950 PCP: Celio Sanders MD Urologist: Radiation oncologist: Dr. Ronnie Vazquez Chief Complaint: follow up/labs for prostate cancer Time since completed RT:10/27/16 ADT:3 years of Lupron or eligard with last dose 05/04/2019 Tried and stopped abiraterone /pred d/t not patrick pred with bipolar d.o. This was started in [place] and ended when [place] returned to [place]. Current treatment:Surveillance HPI: Per Dr Ronnie Vazquez [...] 5/12 cores (all on right side), T2b, [place] 8 Darlyn-neural invasion present PSA - 47.5 [...] LN no longer seen). Pt was in [place] for a period of 5 months and he received a 22.5mg leuprolide there on 05/15/2018. The facility [facility] and Provider Sp Coreas MD. This is in scanned documents. Interim HPI: No further medical issues in the interval. He has been drinking more and hydrating because of summer and exercising. Because of drinking more may be up more at [facility], 2-3x. 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 [...] of manic sx. He had this in [place] during a vis[place] but only on x 1 month and could not tolerate so stopped as soon as return to [place]. Monitoring of PSA continues. No urinary sx [...] lupron and eligard in past (eligard in [place] when he was there for a period of 5months) x 3 years. Abiraterone and pred started in [place] he states and tried but did not tolerate the prednisone as he experienced manic sx so needed to stop this combo when he returned to [place]. Regino not see dates on this. I do not think he has tried enzalutamide. He was aware at one point that a possible return to lupron might be needed but his Dr in [place] stated in note reluctance to dothis based on half-way CV risk factors. There is also an [...] the radiation therapy/prostate cancer Rama Ramos MSN, LOCAL AREA NETWORK SYSTEMS ADMINSTRATOR, NUT SHELLER MACHINE OPERATOR-C Nurse Practitioner Radiation Oncology documented in this encounter Plan of Treatment Upcoming Encounters Date Type Department Care Team (Late st Contact Info) Description 01/24/2024 2:00 PM EST Office Visit Dermatology at [facility] [address] [place] [address] Prisca Hughes MD [facility] [address] [place] [address] Scheduled Referrals Name Type Priority Associated Diagnoses [...] Thank you for referring this patient to [facility]. I have personally reviewed the [...] questions please contact the health day care center director that requested your imaging first. ? Narrative [...] Thank you for referring this patient to [facility]. I have personally reviewed the image(s) and the resident's interpretationand agree with the findings, Matthew Price MD at 11/09/2022 4:44 PM Thank you for letting us participate in the care of this patient. If youare a health care provider and have any questions regarding this report,please contact the number below. For patients who have questions please contactthe health day care center director that requested your imaging first. Rama Ramos APRN IMG PET ORDERABLES documented in this encounter Visit Diagnoses Diagnosis Malignant neoplasm of prostate- Primary Malignant neoplasm of prostate documented in this encounter Care Teams Metal Burrer Relationship Specialty Start Date End Date Celio Sanders MD [address] [place] [address] PCP - General Internal Medicine 05/19/16 documented as of this encounter
--- OUTSIDE RECORDS SUMMARY | 2023-11-19 09:24 | XMS_ITS | Encounter Summary ---
Author Organization [facility], [facility] Address [facility] [place] [address] Care Team Providers Care Air Brake Rigger Name Role Phone Celio Sanders MD Primary Care Provider [phone] Reason for Visit * Diagnostic Test (Routine) - Closed Specialty Diagnoses / Procedures Referred By Contac t Referred To Contact Radiology Diagnoses Malignant neoplasm of prostate Procedures NM PET CT PSMA Prostate ([employer]) Rama Ramos ADHESIVE BANDAGE MACHINE OPERATOR [facility] [place] [address] [facility] [place] [address] Referral ID Status Reason Start Date Expiration Date V isits Requested Visits Authorized [id number] Closed Specialty Service Requested 10/12/2022 04/14/2024 1 2 Encounter Details Date Type Department Care Team (Latest Contact Info) Description 11/09/2022 1:29 PM EDT - 11/09/2022 11:59 PM EDT Hospital En[place] [address] Rama Ramos ADHESIVE BANDAGE MACHINE OPERATOR [facility] [place] [address] Discharge Disposition: Home Social History [...] 2:00 PM EST Office Visit Dermatology at [address] [address] Prisca Hughes MD [facility] DR [place] [address] documented as of this encounter Procedures Procedure [...] you for referring this patient to [facility]. I have personally reviewed the [...] who have questions please contact the health transitional care liaison that requested your imaging first. ? Narrative [...] you for referring this patient to [facility]. I have personally reviewed the image(s) and the resident's interpretationand agree with the findings, Matthew Price MD at 11/09/2022 4:44 PM Thank you for letting us participate in the care of this patient. If youare a health care provider and have any questions regarding this report,please contact the number below. For patients who have questions please contactthe health transitional care liaison that requested your imaging first. Rama Ramos ADHESIVE BANDAGE MACHINE OPERATOR IMG PET ORDERABLES documented in this encounter Visit Diagnoses Not on filedocumented in this encounter Care Teams Air Brake Rigger Relationship Specialty Start Date End Date Celio Sanders MD [address] [place] [address] PCP - General Internal Medicine 05/19/16 documented as of this encounter
--- OUTSIDE RECORDS SUMMARY | 2023-11-19 09:24 | XMS_ITS | Encounter Summary ---
Author Organization [facility] Address [facility] [place] [address] Care Team Providers Care Shopping Investigator Name Role Phone Celio Sanders MD Primary Care Provider [phone] Encounter Details Date Type Department Care Team (Late Contact Info) Description 01/19/2022 Telephone Radiation Oncology at [address] [address] Carmine Cheema Social History Tobacco Use Types [...] 2:00 PM EST Office Visit Dermatology at [facility] [address] [place] [address] Prisca Hughes MD [facility] DR PHOEBE [place] [address] documented as of this encounter Visit Diagnoses Not on filedocumented in this encounter Care Teams Shopping Investigator Relationship Specialty Start Date End Date Celio Sanders MD [address] [place] [address] PCP - General Internal Medicine 05/19/16 documented as of this encounter
--- OUTSIDE RECORDS SUMMARY | 2023-11-19 09:24 | XMS_ITS | Encounter Summary ---
Author Organization [facility] Address [facility] [place] [address] Care Team Providers Care Lift Manager Name Role Phone Celio Sanders MD Primary Care Provider [phone] Encounter Details Date Type Department Care Team (Late Contact Info) Description 07/02/2020 Orders Only Hematology/Oncology at [address] [phone] Swathi Uriostegui APRN [address] [place] [address] DR HEMATOLOGY ONCOLOGY [place], [place] [address] Prostate cancer metastatic to intrapelvic lymph node; [...] [facility] [address] [place] [address] Prisca Hughes MD [facility] [address] PHOEBE [place] [address] documented as of this encounter Visit Diagnoses Diagnosis 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
--- OUTSIDE RECORDS SUMMARY | 2023-11-19 09:24 | XMS_ITS | Encounter Summary ---
Author Organization [facility] Address [facility] [place] [address] Care Team Providers Care Brass Instrument Repair Technician Name Role Phone Celio Sanders MD Primary Care Provider Encounter Details Date Type Department Care Team (Late st Contact Info) Description 01/16/2021 11:00 AM EST Office Visit Hematology/Oncology at [address] [phone] Remy Barillas MD [facility] [place] [place] [address] Swathi Uriostegui APRN [address] [place] [address] DR HEMATOLOGY ONCOLOGY [place], [place] [id number] Malignant neoplasm of prostate; Vitamin D deficiency [...] negative 9. Genetic testing 03/2018 - Result: [employer]'s Common Hereditary Cancers Panel showed that Nain carries a pathogenic variant (mutation) in BRCA2 specifically c.1929del(p.[id number]). This result is consistent with a diagnosis [...] BRCA2, BRIP1, CDH1, CDK4, CDKN2A (p14ARF), CDKN2A (x45SAE5j), CHEK2, CTNNA1, DICER1, EPCAM (EPCAM: Deletion/duplication testing [...] the AXIN2 and CTNNA1 genes, specifically c.1531A>T (p.Ymu293Fbk) and c.515A>T (p.Jrl524Wup), were detected. ? Interpretation: The most significant consequences of carrying a pathogenic variant in BRCA2 are increased risks forbreast cancer and ovarian cancer in women. For men, the most significant consequence is for prostate cancer so this finding is felt to be related to Nain's cancer. Other cancers associated with VTRM8qjc breast cancer in men, pancreatic, and melanoma. [...] with them. ?? Nain's sons live in [place] and [place]. They can go to the [...] the gene with no increased cancer risks. [employer] is continually collecting and analyzing their data, [...] and mailing address stay updated in the [facility] system, in order for us to [...] in the future, Dr. Ara Mary, a belt picker at [facility] in [place], is willing to discuss these screening options with Nain. Nain can schedule an appointment with her by reaching her corporate legal secretary at [phone]. ?? Prostate Cancer Screening for Nain's sons [...] Periodic colonoscopy screening as recommended by Nain's belt picker. ?? HPI Nain Mckeon is seen in [...] him. Soc Hx: , lives in [place], [place]. He goes to [place] from December to June. 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 Laurel score was 8 in two of the [...] 2:00 PM EST Office Visit Dermatology at [place] [address] [place] [address] Prisca Hughes MD [facility] DR PHOEBE [place] [address] documented as of this encounter Visit Diagnoses Diagnosis Malignant neoplasm of prostate Vitamin D deficiency Unspecified vitamin D deficiency documented in this encounter Care Teams Brass Instrument Repair Technician Relationship Specialty Start Date End Date Celio Sanders MD [address] [place] [address] PCP - General Internal Medicine 05/19/16 documented as of this encounter
--- OUTSIDE RECORDS SUMMARY | 2023-11-19 09:24 | XMS_ITS | Encounter Summary ---
Author Organization [facility] Address [facility] [place] [address] Care Team Providers Care Radiology Special Procedure Tech Name Role Phone Celio Sanders MD Primary Care Provider [phone] Reason for Visit * Reason Comments Establish Care * Consultation (Routine) - Closed Specialty Diagnoses / Procedures Referred By Contac t Referred To Contact Hematology and Oncology Diagnoses Malignant neoplasm of prostate Rama Ramos APRN [facility] [place] [address] [facility] [address] [place] [address] Referral ID Status Reason Start Date Expiration Date V isits Requested Visits Authorized [id number] Closed Assume Subset of Care 10/12/2022 10/12/2023 1 1 Encounter Details Date Type Department Care Team (Late st Contact Info) Description 11/22/2022 3:00 PM EDT Office Visit Hematology [place] [address] Veronika Tobar MD [facility] DR HEMATOLOGY [place] [address] Malignant neoplasm of prostate Social History Tobacco [...] from the original note were not included. [facility] [place] [id number] ONCOLOGY NEW PATIENT VISIT REFERRING: Dr Vazquez, [...] Mar 2018: pathogenic variant in BRCA2 (c.1929del, p.[id number] fs15). VUS in AXIN2 and CTNNA1 HPI: [...] DIAGNOSTIC performed by Nicky Bray MD at [facility] END[facility]COPY PROSTATE BIOPSY MEDS: Medications 11/22/22 5127 Medication Sig Taking? 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 [employer] Never [...] criteria for PSA recurrence based on the Gurley criteria, I agree with restaging exams and [...] 2:00 PM EST Office Visit Dermatology at [address] [place] [address] Prisca Hughes MD [facility] DR [place] [address] Scheduled Referrals Name Type Priority Associated Diagnoses Order Schedule Referral to Hematology and Oncology Outpatient Referral Routine Malignant neoplasm of prostate Ordered: 10/12/2022 documented as of this encounter Visit Diagnoses Diagnosis Malignant neoplasm of prostate documented in this encounter Care Teams Radiology Special Procedure Tech Relationship Specialty Start Date End Date Celio Sanders MD [address] [place] [address] PCP - General Internal Medicine 05/19/16 documented as of this encounter
--- OUTSIDE RECORDS SUMMARY | 2023-11-19 09:24 | XMS_ITS | Encounter Summary ---
Author Organization [facility] Address [facility] [place] [address] Care Team Providers Care Copy Manager Name Role Phone Celio Sanders MD Primary Care Provider [phone] Encounter Details Date Type Department Care Team [...] 2:00 PM EST Office Visit Dermatology at [facility] [address] [place] [address] Prisca Hughes MD [facility] DR PHOEBE [place]BAR[place] [address] documented as of this encounter Visit Diagnoses Not on filedocumented in this encounter Care Teams Copy Manager Relationship Specialty Start Date End Date Celio Sanders MD [address] [place], [place] [address] PCP - General Internal Medicine 05/19/16 documented as of this encounter
--- OUTSIDE RECORDS SUMMARY | 2023-11-19 09:24 | XMS_ITS | Encounter Summary ---
Author Organization [facility] Address [facility] [place] [address] Care Team Providers Care Process Expert Name Role Phone Celio Sanders MD Primary Care Provider [phone] Encounter Details Date Type Department Care Team (Late st Contact Info) Description 07/27/2019 2:30 PM EDT Office Visit Hematology/Oncology at [address] [address] Remy Barillas MD [facility] [place] [address] Dayana Tompkins, RN Prostate cancer metastatic to [...] this encounter Progress Notes * Dayana Tompkins, SENIOR SAFETY SUPPORT MANAGER - 07/27/2019 2:30 PM EDT Subjective: Encounter [...] 5/12 cores (all on right side), T2b, Raymond 8 Darlyn-neural invasion present PSA - 47.5 [...] negative 9. Genetic testing 03/2018 - Result: [employer]'s Common Hereditary Cancers Panel showed that Nain carries a pathogenic variant (mutation) in BRCA2 specifically c.1929del(p.Aar901Mvuga15). This result is consistent with a diagnosis [...] BRCA2, BRIP1, CDH1, CDK4, CDKN2A (p14ARF), CDKN2A (e62RMY0y), CHEK2, CTNNA1, DICER1, EPCAM (EPCAM: Deletion/duplication testing [...] the AXIN2 and CTNNA1 genes, specifically c.1531A>T (p.Ljf543Svz) and c.515A>T (p.Gsq643Icj), were detected. ? Interpretation: The most significant consequences of carrying a pathogenic variant in BRCA2 are increased risks forbreast cancer and ovarian cancer in women. For men, the most significant consequence is for prostate cancer so this finding is felt to be related to Nancies cancer. Other cancers associated with VOSM0hwa breast cancer in men, pancreatic, and melanoma. [...] with them. ?? Nain's sons live in [place] and [place]. They can go to the website of [...] the gene with no increased cancer risks. [email or web address] is continually collecting and analyzing their data, [...] and mailing address stay updated in the [facility] system, in order for us to [...] in the future, Dr. Ara Mary, a residential youth counselor at [facility] [place], is willing to discuss these screening options with Nain. Nain can schedule an appointment with her by reaching her press secretary at [phone]. ?? Prostate Cancer Screening for Nain's sons [...] Periodic colonoscopy screening as recommended by Nain's residential youth counselor. ?? HPI Mr. Mckeon is seen in f/u of prostate cancer. This is his first visit with me. Mr. Mckeon returns to the [facility] [place] [facility] for follow up of [...] to burn. Soc Hx: , lives in [place], [place]. He goes to [place] from December to June. 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 Raymond score was 8 in two of the [...] 2:00 PM EST Office Visit Dermatology at [facility] [address] [place] [address] Prisca Hughes MD [facility] DR PHOE[place] [address] documented as of this encounter Visit Diagnoses Diagnosis Prostate cancer metastatic to intrapelvic lymph node documented in this encounter Care Teams Process Expert Relationship Specialty Start Date End Date Celio Sanders MD [address] [place] [address] PCP - General Internal Medicine 05/19/16 documented as of this encounter
--- OUTSIDE RECORDS SUMMARY | 2023-11-19 09:24 | XMS_ITS | Encounter Summary ---
Author Organization [facility] [place] [address] Care Team Providers Care Assistant Project Engineer Name Role Phone Celio Sanders MD Primary Care Provider [phone] Encounter Details Date Type Department Care Team (Late st Contact Info) Description 05/12/2021 2:23 PM EST Anesthesia [place] [address] Celio Alvarado DO [facility] [place] [address] Unruly Noriega MD [facility] [place] [address] Anesthesia Record Procedure Summary Procedure Name Responsible [...] 1400; median cubital vein (antecubital fossa), right; sjbq-zrn-fivgvr catheter system; Anatomical Landmarks; US Not Used; [...] Procedure Summary Date: 05/12/21 Room / Location: [facility] 1 / [facility] Anesthesia Start: 1423 Anesthesia Stop: 1509 Procedure: COLONOSCOPY, DIAGNOSTIC (N/A Trunk) Diagnosis: (BRCA gene mutation positive) Surgeons: Nicky Bray MD Responsible Provider: Celio Alvarado DO Anesthesia Type: MAC ASA Status: 2 All Anesthesia Providers: Anesthesiologist: Celio Alvarado DO METAL PATTERNMAKER: Tarun Brambila CRNA Vitals Value Taken Time BP 116/60 05/12/21 1530 Temp Pulse Resp SpO2 100 % 05/12/21 1530 Pain Level Patient Location: PACU/[facility] Level of Consciousness: Conscious but Sleepy Pain [...] and verbalized understanding. Explained that anesthesia at [facility] is commonly delivered in a team care model fashion, with either resident or CRNAs supervised by an anesthesiologist, who frequently supervises one or more other anesthesia deliveries, provide care. -- Unruly Noriega MD, MS Informed Consent: Anesthetic plan and risks discussed with patient. Plan discussed with METAL PATTERNMAKER. Anesthesia Screening documented in this encounter Plan of Treatment Upcoming Encounters Date Type Department Care Team (Late st Contact Info) Description 01/24/2024 2:00 PM EST Office Visit Dermatology at [facility] [address] [place] [phone] Prisca Hughes MD [facility] DR PHOEBE [place] [address] documented as of this encounter Visit Diagnoses [...] bolus injection (Anesthesia) Intravenous, PRN, Starting on Tue05/12/21 at 1425, Until Tu05/12/21 at 1509, Anesthesia Intra-op Given 05/12/2021 2:25 PM EST 100 mg documented in this encounter Care Teams Assistant Project Engineer Relationship Specialty Start Date End Date Celio Sanders MD [address] [place] [address] PCP - General Internal Medicine 05/19/16 documented as of this encounter
--- OUTSIDE RECORDS SUMMARY | 2023-11-19 09:24 | XMS_ITS | Encounter Summary ---
Author Organization [facility] Address [facility] [place] [address] Care Team Providers Care Felt Tipping Machine Tender Name Role Phone Celio Sanders MD Primary Care Provider [phone] Encounter Details Date Type Department Care Team (Latest Contact Info) Description 10/15/2021 1:00 PM EDT TH Visit (TeleHealth) Hematology [place] [phone] Remy Barillas MD [facility] [place] [address] Malignant neoplasm of prostate Social History Tobacco [...] years. 9. Genetic testing 03/2018 - Result: [employer]'s Common Hereditary Cancers Panel showed that Nain carries a pathogenic variant (mutation) in BRCA2 specifically c.1929del(p.Zyx086Yygqz15). This result is consistent with a diagnosis [...] BRCA2, BRIP1, CDH1, CDK4, CDKN2A (p14ARF), CDKN2A (d44BUS6d), CHEK2, CTNNA1, DICER1, EPCAM (EPCAM: Deletion/duplication testing [...] the AXIN2 and CTNNA1 genes, specifically c.1531A>T (p.Bpt716Kje) and c.515A>T (p.Dpk129Naj), were detected. ? Interpretation: The most significant consequences of carrying a pathogenic variant in BRCA2 are increased risks forbreast cancer and ovarian cancer in women. For men, the most significant consequence is for prostate cancer so this finding is felt to be related to Nain's cancer. Other cancers associated with KDNL7xnr breast cancer in men, pancreatic, and melanoma. [...] ?? Nain's sons live in [place] and [place]. They can go to the website of [...] the gene with no increased cancer risks. [employer] is continually collecting and analyzing their data, [...] and mailing address stay updated in the [facility] system, in order for us to reach [...] in the future, Dr. Ara Mary, a translational specialist at [facility] in [place], is willing to discuss these screening options with Nain. Nain can schedule an appointment with her by reaching her pocket secretary assembler at [phone]. ?? Prostate Cancer Screening for Nain's sons [...] Periodic colonoscopy screening as recommended by Nain's translational specialist. ?? HPI Nain Mckeon is seen in [...] nocturia, 1-2x/night. Soc Hx: , lives in [place], [place]. He goes to [place] from December to June. 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
--- OUTSIDE RECORDS SUMMARY | 2023-11-19 09:24 | XMS_ITS | Encounter Summary ---
[place] [address] Care Team Providers Care Salesperson Books Name Role Phone Celio Sanders MD Primary Care Provider Reason for Referral * Consultation (Routine) - Closed Specialty Diagnoses / Procedures Referred By Tess de la rosa Referred To Contact Urology Diagnoses Prostate cancer metastatic to intrapelvic lymph node Ronnie Vazquez MD [address] [place] [address] [place] [address] [facility] [place] [address] Referral ID Status Reason Start Date Expiration Date V isits Requested Visits Authorized [id number] Closed Consult, Test & Treat 01/03/2023 01/03/2024 1 1 Encounter Details Date Type Department Care Team (Late st Contact Info) Description 01/03/2023 Orders Only Radiation Oncology at [address] [address] Ronnie Vazquez MD [address] [place] [address] [place] [address] Prostate cancer metastatic to intrapelvic [...] 2:00 PM EST Office Visit Dermatology at [facility] [address] [place] [address] Prisca Hughes MD [facility] [address] [place] [address] Scheduled Referrals Name Type Priority Associated Diagnoses Orde r Schedule Referral to Urology Outpatient Referral Routine Prostate cancer metastatic to intrapelvic lymph node Ordered: 01/03/2023 documented as of this encounter Visit Diagnoses Diagnosis Prostate cancer metastatic to intrapelvic lymph node documented in this encounter Care Teams Salesperson Books Relationship Specialty Start Date End Date Celio Sanders MD [address] [place] [address] PCP - General Internal Medicine 05/19/16 documented as of this encounter
--- OUTSIDE RECORDS SUMMARY | 2023-11-19 09:24 | XMS_ITS | Encounter Summary ---
Author Organization [facility] Address [facility] [place] [address] Care Team Providers Care Deputy Director Of Public Works Name Role Phone Celio Sanders MD Primary Care Provider [phone] Encounter Details Date Type Department Care Team (Latest Contact Info) Description 05/12/2021 1:23 PM EST - 05/12/2021 4:00 PM EST Hospital En[place] [phone] Nicky Bray MD [facility] [place] [address] Discharge Disposition: Home Social History Tobacco Use [...] Birthdate: 1950 Admit date: 05/12/2021 Attending Physician: Nicyk Bary MD Gastroenterology and Hepatology Pre-Procedure History and [...] 2:00 PM EST Office Visit Dermatology at [facility] [address] [place] [address] Prisca Hughes MD [facility] [address] [place] [address] documented as of this encounter Procedures Procedure Name Priority Date/Time Associated Diagnosis Comments SPECIMEN TO PATHOLOGY Routine 05/12/2021 3:10 PM EST SURGICAL PATHOLOGY REPORT Routine 05/12/2021 2:59 PM EST Colonoscopy, Diagnostic ([id number]) 05/12/2021 2:31 PM EST BRCA gene mutation positive COLONOSCOPY Routine 05/12/2021 2:18 PM EST documented in this encounter Results * Specimen to Pathology (05/12/2021 3:10 PM EST) AP Specimen 05/12/2021 3:10 PM EST 05/12/2021 3:10 PM EST Narrative [facility] - 05/12/2021 3:10 PM EST Specimen requisition ordered. ??Separate Pathology report to follow Nicky Bray MD PATHOLOGY/CYTOLOGY O RDERABLES [facility] [place] [address] * Surgical Pathology Report (05/12/2021 2:59 PM EST) Final Diagnosis [id number] ? Location: 4T; EA12; A The signing pathologist has (i) examined the relevant preparation(s) for the specimen(s) and (ii) rendered or confirmed the diagnosis(es). . ?Surgical Pathology DIAGNOSIS A - Descending colon polyp 3mm, excision: - ??Tubular adenoma. CR-PX Electronically signed by: ?Eduard Martinez MD Verified: ??05/14/2021 15:49 ??Pathologist Performed at: ??-[facility] Dept. of Pathology, [place], [place] SPECIMEN(S) SUBMITTED A - Descending colon [...] labeled A1. ??pps 05/14/2021 3:49 PM EST [facility] GI Biopsy 05/12/2021 2:59 PM EST 05/12/2021 2:59 PM EST Nicky Bray MD PATHOLOGY/CYTOLOGY O STACEYERALUIS DANIEL [facility] [place] [address] * COLONOSCOPY (05/12/2021 2:18 PM EST) COLONOSCOPY [facility] Endoscopy Procedure Date: 05/12/2021 2:18 PM ? Patient Name: Nain Mckeon ? Date of : 1950 ? Age: 70 ? Order #: [id number] ? Instrument Name: [id number] ? Procedure: ? Colonoscopy Indications: ? Screening patient at increased risk: ? Family history of 1st-degree relative ? with colorectal cancer at age 60 ? years (or older) Providers: ? Nicky Bray MD, Sav Platt ? Ivon Angel, Airplane First Officer Referring MD: ?Celio Sanders MD Medicines: ? [...] preparation was ? evaluated using the BBPS (Donnelly ? Bowel Preparation Scale) with scores ? [...] Procedure Code(s): ?? --- Professional --- ? 04933, Colonoscopy, flexible; with ? removal of tumor(s), polyp(s), or ? other lesion(s) by snare technique CPT copyright 2019 [employer]. All rights reserved. The codes documented in this report are preliminary and upon design coordinator review may be revised to meet current [...] CRNA) documented in this encounter Care Teams Deputy Director Of Public Works Relationship Specialty Start Date End Date Celio Sanders MD [address] [place] [address] PCP - General Internal Medicine 05/19/16 documented as of this encounter
--- OUTSIDE RECORDS SUMMARY | 2023-11-19 09:24 | XMS_ITS | Encounter Summary ---
Author Organization [facility] Address [facility] [address] Care Team Providers Care Reinforced Concrete Inspector Name Role Phone Celio Sanders MD Primary Care Provider [phone] Encounter Details Date Type Department Care Team (Late st Contact Info) Description 02/04/2022 3:15 PM EST Office Visit Radiation Oncology at [address] [phone] Rama Ramos APRN [facility] [place] [address] Age-related osteoporosis with current pathological fracture, unspecified [...] this encounter Progress Notes * Rama Ramos, REGULATORY AFFAIRS STRATEGY SPECIALIST - 02/04/2022 3:15 PM ESTSummary: 71 year old M dx high risk prostate cancer. Compl RT 10/27/16. Compl 3 years ADT w/ final dose 05/2019 [facility] [place] [address] Phone: RADIATION ONCOLOGY FOLLOW UP NOTE Patient Nain Mckeon 1950 PCP: Celio Sanders MD Urologist: Radiation oncologist: Dr. Ronnie Vazquez Chief Complaint: follow up/labs for prostate cancer Time since completed RT:10/27/16 ADT:3 years of Lupron or eligard with last dose 05/04/2019 Tried and stopped abiraterone /pred d/t not patrick pred with bipolar d.o. This was started in [place] and ended when he returned to [place]. [...] 5/12 cores (all on right side), T2b, [place] 8 Darlyn-neural invasion present PSA - 47.5 [...] the following outside notes: Pt was in [place] for a period of 5 months and he received a 22.5mg leuprolide there on 05/15/2018. The facility [facility] and Provider Sp Coreas MD. This is [...] states he was put on this in [place] during a visit there but only on x 1 month and could not tolerate so stopped as soon as return [place]. Concern at this time is that while there are no urinary sx of concern and seeing urology in summer,had a smooth prostate he now has doubling time of 6 months and PSA rise to 0.56. While making a couple of trips of several months to [place] during his lupron tx period, he did [...] lupron and eligard in past (eligard in [place] when he was there for a period of 5months) x 3 years. Abiraterone and pred started in [place] he states and tried but did not tolerate the prednisone as he experienced manic sx so needed to stop this combo when he returned to [place]. Regino not see dates on this. I do not think he has tried enzalutamide. He was aware at one point that a possible return to lupron might be needed but his Dr in [place] stated in note reluctance to dothis based on long wall mining machine helper CV risk factors. There is also an added risk of CV dz in use of antipsychotics which pt requires for management of bipolar disorder. # survivorship/lifestyle/wellness: Genetic Risk Evaluation: Body weight/nutrition: Exercise: swims 3-4 days a week. Plays [employer] ball. He fx wrist a couple weeks ago. Will be seeing someone to address. Bone health: fx wrist. Smoking: no smoking Alcohol: none Sleep:sleeping very well now. Sunscreen: Annual exam with PCP: But different PCP recently and will tell front desk specialist. (Now Celio Sanders MD) Up to date [...] the radiation therapy/prostate cancer Rama Ramos MSN, REGULATORY AFFAIRS STRATEGY SPECIALIST, LABORER-C Nurse Practitioner Radiation Oncology documented in this encounter Plan of Treatment Upcoming Encounters Date Type Department Care Team (Late st Contact Info) Description 01/24/2024 2:00 PM EST Office Visit Dermatology at [facility] [address] [place] [address] Prisca Hughes MD [facility] [place] [address] documented as of this encounter Visit Diagnoses Diagnosis Age-related osteoporosis with current pathological fracture, unspecified hand, subsequent encounter for fracture with routine healing- Primary Malignant neoplasm of prostate Age-related osteoporosis without current pathological fracture Senile osteoporosis documented in this encounter Care Teams Reinforced Concrete Inspector Relationship Specialty Start Date End Date Celio Sanders MD [address] [place] [address] PCP - General Internal Medicine 05/19/16 documented as of this encounter
--- OUTSIDE RECORDS SUMMARY | 2023-11-19 09:24 | XMS_ITS | Encounter Summary ---
Author Organization [facility] [place] [address] Care Team Providers Care Factory Focus Technician Name Role Phone Celio Sanders MD Primary Care Provider [phone] Reason for Referral * Surgical (Urgent) - Closed Specialty Diagnoses / Procedures Referred By Tess de la rosa Referred To Contact Gastroenterology Diagnoses BRCA gene mutation positive Remy Barillas MD [facility] [place] [address] [facility] Endoscopy [address] [place] [address] Referral ID Status Reason Start Date Expiration Date Visits Re quested Visits Authorized [id number] Closed 02/03/2021 02/03/2022 1 1 Encounter Details Date Type Department Care Team (Late st Contact Info) Description 02/03/2021 Orders Only Hematology [place] [phone] Remy Barillas MD [facility] [place] [address] BRCA gene mutation positive Social History Tobacco [...] 2:00 PM EST Office Visit Dermatology at [facility] [address] [place] [address] Prisca Hughes MD [facility] DR [place] [address] Scheduled Referrals Name Type Priority Associated Diagnoses Order Schedule REFERRAL TO COLONOSCOPY PROCEDURE Outpatient Referral Routine BRCA gene mutation positive Ordered: 02/03/2021 documented as of this encounter Visit Diagnoses Diagnosis BRCA gene mutation positive documented in this encounter Care Teams Factory Focus Technician Relationship Specialty Start Date End Date Celio Sanders MD [address] [place] [address] PCP - General Internal Medicine 05/19/16 documented as of this encounter
--- OUTSIDE RECORDS SUMMARY | 2023-11-19 09:24 | XMS_ITS | Encounter Summary ---
[place] [address] Care Team Providers Care Owner Operator Tanker Truck Driver Name Role Phone Celio Sanders MD Primary Care Provider [phone] Reason for Visit * Reason Comments Other lupron 22.5 mg * Treatment/Therapy Plan Authorization (Routine) - Closed Specialty Diagnoses / Procedures Referred By Contac t Referred To Contact Diagnoses Prostate cancer metastatic to intrapelvic lymph node Gael Anderson MD [address] [place] [address] [facility] Hem Onc Office [address] [place] [phone] Referral ID Status Reason Start Date Expiration Date Visits Re quested Visits Authorized [id number] Closed 11/15/2017 11/15/2018 1 1 Encounter Details Date Type Department Care Team (Late st Contact Info) Description 05/04/2019 11:30 AM EST Infusion Hematology Oncology at [address] [address] Prostate cancer metastatic to intrapelvic [...] 2:00 PM EST Office Visit Dermatology at [facility] [address] [place] [address] Prisca Hughes MD [facility] [place] [address] documented as of this encounter Visit Diagnoses [...] Gluteal documented in this encounter Care Teams Owner Operator Tanker Truck Driver Relationship Specialty Start Date End Date Celio Sanders MD [address] [place] [address] PCP - General Internal Medicine 05/19/16 documented as of this encounter
--- OUTSIDE RECORDS SUMMARY | 2023-11-19 09:24 | XMS_ITS | Encounter Summary ---
Author Organization [facility] [place] [address] Care Team Providers Care Camera Person Name Role Phone Celio Sanders MD Primary Care Provider Reason for Referral * Diagnostic Test (Routine) - Closed Specialty Diagnoses / Procedures Referred By Contac t Referred To Contact Radiology Diagnoses Malignant neoplasm of prostate Procedures MRI Pelvis wwo (Prostate) Diane Leavitt MD [facility] [place] [address] [place] [address] Referral ID Status Reason Start Date Expiration Date V isits Requested Visits Authorized [id number] Closed Specialty Service Requested 11/18/2022 05/16/2024 1 1 Reason for Visit * Diagnostic Test (Routine) - Closed Specialty Diagnoses / Procedures Referred By Contac t Referred To Contact Radiology Diagnoses Malignant neoplasm of prostate Procedures MRI Pelvis wwo (Prostate) Diane Leavitt MD [facility] [place] [address] [place] [address] Referral ID Status Reason Start Date Expiration Date V isits Requested Visits Authorized [id number] Closed Specialty Service Requested 11/18/2022 05/16/2024 1 1 Encounter Details Date Type Department Care Team (Latest Contact Info) Description 12/30/2022 4:38 PM EDT - 12/30/2022 11:59 PM EDT Hospital [place] [address] Ronnie Vazquez MD [address] [place] [address] [place] [address] Malignant neoplasm of prostate Discharge Disposition: Home [...] 2:00 PM EST Office Visit Dermatology at [facility] [address] [place] [address] Prisca Hughes MD [facility] DR [address] [place] [address] documented as of this encounter Procedures Procedure [...] at Multiparametric MRI. Radiology. 2019 May;290(3):709-719. doi: 10.1148/radiol.[id number]. Epub 2018Mar 28. Thank you for letting us participate in the care of this patient. ??If you are a health care provider and have any questions regarding this report, please contact the number below. ??For patients who have questions please contact the health career development facilitator that requested your imaging first. ? Narrative [...] Cancer at Multiparametric MRI. Radiology. 2019Mar;290(3):709-719. doi: 10.1148/radiol.[id number]. Epub 2018Mar 28. Thank you for letting us participate in the care of this patient. If youare a health care provider and have any questions regarding this report,please contact the number below. For patients who have questions please contactthe health career development facilitator that requested your imaging first. Electronically signed by: Isac Hearn MD, [facility]([phone]), at 12/31/2022 9:26 AM Ronnie Vazquez MD [facility] MRI ORDERABLES documented in this [...] mLs documented in this encounter Care Teams Camera Person Relationship Specialty Start Date End Date Celio Sanders MD [address] [place] [address] PCP - General Internal Medicine 05/19/16 documented as of this encounter
--- OUTSIDE RECORDS SUMMARY | 2023-11-19 09:24 | XMS_ITS | Encounter Summary ---
Author Organization [facility] Address [facility] [address] Care Team Providers Care Limousine And Hearse Upholsterer Name Role Phone Celio Sanders MD Primary Care Provider [phone] Encounter Details Date Type Department Care Team (Late st Contact Info) Description 10/20/2020 9:30 AM EDT Office Visit Hematology/Oncology at [address] [phone] Swathi Uriostegui APRN [address] [place] [address] DR HEMATOLOGY ONCOLOGY [place], [place] [phone] Prostate cancer metastatic to intrapelvic lymph node; [...] this encounter Progress Notes * Swathi Uriostegui, LABORER AMMUNITION ASSEMBLY - 10/20/2020 9:30 AM EDT Subjective: Patient [...] a pathogenic variant (mutation) in BRCA2 specifically c.1929del(p.[id number]). 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 At the time of the appointment,??Tasiawas provided with a printed copy of his??test result and an informational packet addressing a positive test result. ?? The following??47??genes were evaluated for sequence changes and exonic deletions/duplications: APC, RUMA, AXIN2, BARD1, BMPR1A, BRCA1, BRCA2, BRIP1, CDH1, CDK4, CDKN2A (p14ARF), CDKN2A (x10ZBT0d), CHEK2, CTNNA1, DICER1, EPCAM (EPCAM: Deletion/duplication testing [...] (VUS) in the AXIN2 and CTNNA1??genes, specifically c.1531A>T(p.Bzq018Ois) and c.515A>T (p.Ebm620Omw), were??detected. ? Interpretation: The most significant consequences [...] ?? Nain's sons live in [place] and [place]. ??They can go to the website of [...] and mailing address stay updated in the [facility] system, in order for us to [...] possibility in the future,??Dr. Ara Mary, a stack matcher at [facility] in [place], is willing to discuss these screening options with Nain.??Nain??can schedule an appointment with her by reaching her executive legal secretary at [phone]. ?? Prostate Cancer Screening for Nain's sons ? Prostate cancer screening starting at age 40.?If either of them is found to not have the BRCA2 mutation then they can consider screening beginning at age 50 which is the recommendation for menin the general population ?? Skin cancer screening ?? Periodic skin exams ?? Colon cancer screening ?? Periodic colonoscopy screening as recommended by??Nain's stack matcher. ?. ??SUMMARY ASSESSMENT/PLAN 07/24 He was diagnosed [...] PSA. ? Soc Hx: , lives in [place], [place]. He goes to [place] from December to June. 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
--- OUTSIDE RECORDS SUMMARY | 2023-11-19 09:24 | XMS_ITS | Encounter Summary ---
Author Organization [facility] Address [facility] [place] [address] Care Team Providers Care Financial Management Name Role Phone Celio Sanders MD Primary Care Provider [phone] Encounter Details Date Type Department Care Team [...] Dermatology at [facility] [address] [place] [address] Prisca Hughes MD [facility] DR [place] [address] documented as of this encounter Visit Diagnoses Not on filedocumented in this encounter Care Teams Financial Management Relationship Specialty Start Date End Date Celio Sanders MD [address] [place], [place] [address] PCP - General Internal Medicine 05/19/16 documented as of this encounter
--- OUTSIDE RECORDS SUMMARY | 2023-11-19 09:24 | XMS_ITS | Encounter Summary ---
Author Organization [facility] Address [facility] [place] [address] Care Team Providers Care Service Restorer Emergency Name Role Phone Celio Sanders MD Primary Care Provider Encounter Details Date Type Department Care Team (Late st Contact Info) Description 04/04/2020 2:30 PM EST Office Visit Hematology/Oncology at [address] [phone] Remy Barillas MD [facility] [place] [address] Swathi Uriostegui APRN [address] [place] [address] DR HEMATOLOGY ONCOLOGY [place], [place] [id number] Prostate cancer metastatic to intrapelvic lymph node [...] this encounter Progress Notes * Swathi Uriostegui, LICENSED MORTICIAN - 04/04/2020 2:30 PM EST Subjective: Patient [...] a pathogenic variant (mutation) in BRCA2 specifically c.1929del(p.Fwn498Hmopy15). 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 At the time of the appointment,??Tasiawas provided with a printed copy of his??test result and an informational packet addressing a positive test result. ?? The following??47??genes were evaluated for sequence changes and exonic deletions/duplications: APC, RUMA, AXIN2, BARD1, BMPR1A, BRCA1, BRCA2, BRIP1, CDH1, CDK4, CDKN2A (p14ARF), CDKN2A (r74QBL7a), CHEK2, CTNNA1, DICER1, EPCAM (EPCAM: Deletion/duplication testing [...] (VUS) in the AXIN2 and CTNNA1??genes, specifically c.1531A>T(p.Utw630Fpl) and c.515A>T (p.Jbq016Ynx), were??detected. ? Interpretation: The most significant consequences [...] with them. ?? Nain's sons live in [place] and [place]. ??They can go to the [...] and mailing address stay updated in the [facility] system, in order for us to reach [...] possibility in the future,??Dr. Ara Mary, a service restorer emergency at [facility] in [place], is willing to discuss these screening options with Nain.??Nain??can schedule an appointment with her by reaching her ward secretary at [phone]. ?? Prostate Cancer Screening for Nain's sons ? Prostate cancer screening starting at age 40.?If either of them is found to not have the BRCA2 mutation then they can consider screening beginning at age 50 which is the recommendation for menin the general population ?? Skin cancer screening ?? Periodic skin exams ?? Colon cancer screening ?? Periodic colonoscopy screening as recommended by??Nain's service restorer emergency. ?. ??SUMMARY ASSESSMENT/PLAN 07/24 He was diagnosed [...] PSA. ? Soc Hx: , lives in [place], [place]. He goes to [place] from December to June. 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 Fam Hx: Father with prostate cancer [...] returns to the [facility] oncology clinic in [facility] today for follow up surveillance visit [...] internal iliac LN. Nain returns to the [facility] oncology clinic in [facility] today for followup surveillance visit with [...] 2:00 PM EST Office Visit Dermatology at [facility] [address] [place] [address] Prisca Hughes MD [facility] [address] [place] [address] documented as of this encounter Visit Diagnoses Diagnosis Prostate cancer metastatic to intrapelvic lymph node documented in this encounter Care Teams Service Restorer Emergency Relationship Specialty Start Date End Date Celio Sanders MD [address] [place] [address] PCP - General Internal Medicine 05/19/16 documented as of this encounter
--- OUTSIDE RECORDS SUMMARY | 2023-11-19 09:24 | XMS_ITS | Encounter Summary ---
Author Organization [facility] Address [facility] [place] [address] Care Team Providers Care Sales And Retail Management Recruiter Name Role Phone Celio Sanders MD Primary Care Provider [phone] Encounter Details Date Type Department Care Team (Late st Contact Info) Description 06/30/2020 1:30 PM EDT Office Visit Hematology/Oncology at [address] [phone] Swathi Uriostegui APRN [address] [place] [address] DR HEMATOLOGY ONCOLOGY [place], [place] [id number] Prostate cancer metastatic to intrapelvic lymph node; [...] this encounter Progress Notes * Swathi Uriostegui, GEOINT ANALYST - 06/30/2020 1:30 PM EDT Subjective: Patient [...] a pathogenic variant (mutation) in BRCA2 specifically c.1929del(p.Dnq725Srpul15). 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 At the time of the appointment,??Tasiawas provided with a printed copy of his??test result and an informational packet addressing a positive test result. ?? The following??47??genes were evaluated for sequence changes and exonic deletions/duplications: APC, RUMA, AXIN2, BARD1, BMPR1A, BRCA1, BRCA2, BRIP1, CDH1, CDK4, CDKN2A (p14ARF), CDKN2A (r71MUT4l), CHEK2, CTNNA1, DICER1, EPCAM (EPCAM: Deletion/duplication testing [...] (VUS) in the AXIN2 and CTNNA1??genes, specifically c.1531A>T(p.Xtt960Qdv) and c.515A>T (p.Tcz136Zqu), were??detected. ? Interpretation: The most significant consequences [...] with them. ?? Nain's sons live in [place] and [place]. ??They can go to the website of [...] and mailing address stay updated in the [facility] system, in order for us to reach [...] possibility in the future,??Dr. Ara Mary, a second rigger at [facility] in [place], is willing to discuss these screening options with Nain.??Nain??can schedule an appointment with her by reaching her special education secretary at [phone]. ?? Prostate Cancer Screening for Nain's sons ? Prostate cancer screening starting at age 40.?If either of them is found to not have the BRCA2 mutation then they can consider screening beginning at age 50 which is the recommendation for menin the general population ?? Skin cancer screening ?? Periodic skin exams ?? Colon cancer screening ?? Periodic colonoscopy screening as recommended by??Nain's second rigger. ?. ??SUMMARY ASSESSMENT/PLAN 07/24 He was diagnosed [...] PSA. ? Soc Hx: , lives in [place], [place]. He goes to [place] from December to June. 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 Fam Hx: Father with prostate [...] as summarized above.) Nain returns to the [facility] oncology clinic in [facility] today for follow up surveillance visit with PSA review. His last Lupron injection was 04/26. Nain says he feels really good. His energy is good and he continues to take long walks daily with his dogs. He feels his depression recovery is continuing to go well. He also works out regularly at [facility] [employer] and is looking forward to participating in [...] to the [facility] oncology clinic in [facility] today for followup surveillance visit with [...] 2:00 PM EST Office Visit Dermatology at [facility] [address] [place] [address] Prisca Hughes MD [facility] DR [place] [address] documented as of this encounter Visit Diagnoses Diagnosis Prostate cancer metastatic to intrapelvic lymph node Malignant neoplasm of prostate BRCA2 positive Genetic susceptibility to malignant neoplasm of breast documented in this encounter Care Teams Sales And Retail Management Recruiter Relationship Specialty Start Date End Date Celio Sanders MD [address] [place] [address] PCP - General Internal Medicine 05/19/16 documented as of this encounter
--- OUTSIDE RECORDS SUMMARY | 2023-11-19 09:24 | XMS_ITS | Encounter Summary ---
Author Organization [facility] [place] [address] Care Team Providers Care Test Lab Technician Name Role Phone Celio Sanders MD Primary Care Provider Reason for Referral * Consultation (Routine) - Closed Specialty Diagnoses / Procedures Referred By Contac t Referred To Contact Diagnoses BRCA gene mutation positive Prostate cancer metastatic to intrapelvic lymph node Vitamin D deficiency Swathi Uriostegui APRN [address] [place] [address] [place] [address] Randy Brown MD [address] [place] [address], [place] [address] Referral ID Status Reason Start Date Expiration Date V isits Requested Visits Authorized [id number] Closed Consult, Test & Treat 04/16/2021 10/13/2021 1 1 Encounter Details Date Type Department Care Team (Late st Contact Info) Description 04/13/2021 10:30 AM EST Office Visit Hematology/Oncology at [address] [phone] Swathi Uriostegui CHOPPING MACHINE OPERATOR [address] [place] [address] HEMATOLOGY ONCOLOGY [place], [place] [phone] BRCA gene mutation positive; Prostate cancer metastatic [...] 5/12 cores (all on right side), T2b, [place] 8 Darlyn-neural invasion present PSA - 47.5 [...] a pathogenic variant (mutation) in BRCA2 specifically c.1929del(p.Sjs340Knpbw15). 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 At the time of the appointment,??Tasiawas provided with a printed copy of his??test result and an informational packet addressing a positive test result. ?? The following??47??genes were evaluated for sequence changes and exonic deletions/duplications: APC, RUMA, AXIN2, BARD1, BMPR1A, BRCA1, BRCA2, BRIP1, CDH1, CDK4, CDKN2A (p14ARF), CDKN2A (v00OLL4e), CHEK2, CTNNA1, DICER1, EPCAM (EPCAM: Deletion/duplication testing [...] (VUS) in the AXIN2 and CTNNA1??genes, specifically c.1531A>T(p.Awc327Lcj) and c.515A>T (p.Ymm032Cjj), were??detected. ? Interpretation: The most significant consequences [...] them. ?? Nain's sons live in [place] and [place]. ??They can go to the [...] and mailing address stay updated in the [facility] system, in order for us to reach [...] possibility in the future,??Dr. Ara Mary, a glass blowing lathe operator at [facility] [place] in [place], is willing to discuss these screening options with Nain.??Nain??can schedule an appointment with her by reaching her church secretary at [phone]. ?? Prostate Cancer Screening for Nain's sons ? Prostate cancer screening starting at age 40.?If either of them is found to not have the BRCA2 mutation then they can consider screening beginning at age 50 which is the recommendation for menin the general population ?? Skin cancer screening ?? Periodic skin exams ?? Colon cancer screening ?? Periodic colonoscopy screening as recommended by??Nain's glass blowing lathe operator. ?. ??SUMMARY ASSESSMENT/PLAN 07/24 He was [...] PSA. ? Soc Hx: , lives in [place], [place]. He goes to [place] from December to June. 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, formerly worked in [employer] for a [employer] ?? Fam Hx: Father with prostate cancer [...] swimming 5-6 times a week at the [facility] [place] [place]. He also walks his dogs daily. His [...] Nain is in agreement to see a assistant operations manager for baseline exam as his BRCA2 positive [...] [facility] today for followup surveillance visit [...] 2:00 PM EST Office Visit Dermatology at [address] [phone] Prisca Hughes MD [facility] [address] [place] [address] Scheduled Referrals Name Type Priority Associated Diagnoses [...] deficiency documented in this encounter Care Teams Test Lab Technician Relationship Specialty Start Date End Date Celio Sanders MD [address] [place] [address] PCP - General Internal Medicine 05/19/16 documented as of this encounter
--- OUTSIDE RECORDS SUMMARY | 2023-11-19 09:24 | XMS_ITS | Encounter Summary ---
Author Organization [facility] Address [facility] [place] [address] Care Team Providers Care Mold Stacker Name Role Phone Celio Sanders MD Primary Care Provider [phone] Encounter Details Date Type Department Care Team [...] 2:00 PM EST Office Visit Dermatology at [facility] [address] [place] [address] Prisca Hughes MD [facility] [address] [place] [address] documented as of this encounter Visit Diagnoses Not on filedocumented in this encounter Care Teams Mold Stacker Relationship Specialty Start Date End Date Celio Sanders MD [address] [place] [address] PCP - General Internal Medicine 05/19/16 documented as of this encounter
--- OUTSIDE RECORDS SUMMARY | 2023-11-19 09:24 | XMS_ITS | Encounter Summary ---
Author Organization [facility] Address [facility] [place] [address] Care Team Providers Care Operater Name Role Phone Celio Sanders MD Primary Care Provider [phone] Encounter Details Date Type Department Care Team (Late st Contact Info) Description 05/12/2021 2:45 PM EST - 05/12/2021 3:30 PM EST [place] [phone] Nicky Bray MD [facility] [place] [address] COLONOSCOPY, DIAGNOSTIC (WRVU 3.26) Social History Tobacco [...] 2:00 PM EST Office Visit Dermatology at [address] [address] Prisca Hughes MD [facility] DR PHOE[place] [address] documented as of this encounter Procedures Procedure Name Priority Date/Time Associated Diagnosis Comments SPECIMEN TO PATHOLOGY Routine 05/12/2021 3:10 PM EST SURGICAL PATHOLOGY REPORT Routine 05/12/2021 2:59 PM EST Colonoscopy, Diagnostic (86320) 05/12/2021 2:31 PM EST BRCA gene mutation positive COLONOSCOPY Routine 05/12/2021 2:18 PM EST documented in this encounter Results * Specimen to Pathology (05/12/2021 3:10 PM EST) AP Specimen 05/12/2021 3:10 PM EST 05/12/2021 3:10 PM EST Narrative [facility] - 05/12/2021 3:10 PM EST Specimen requisition ordered. ??Separate Pathology report to follow Nicky Bray MD PATHOLOGY/CYTOLOGY O RDERABLES [facility] [place] [address] * Surgical Pathology Report (05/12/2021 2:59 PM EST) Final Diagnosis [id number] ? Location: 4T; EA12; A The signing pathologist has (i) examined the relevant preparation(s) for the specimen(s) and (ii) rendered or confirmed the diagnosis(es). . ?Surgical Pathology DIAGNOSIS A - Descending colon polyp 3mm, excision: - ??Tubular adenoma. CR-PX Electronically signed by: ?Michelle MUNOZ, Eduard Verified: ??05/14/2021 15:49 ??Pathologist Performed at: ??-[facility] Dept. of Pathology, [place], [place] SPECIMEN(S) SUBMITTED A - Descending colon [...] labeled A1. ??pps 05/14/2021 3:49 PM EST [facility] GI Biopsy 05/12/2021 2:59 PM EST 05/12/2021 2:59 PM EST Nicky Bray MD PATHOLOGY/CYTOLOGY O RDERALUIS DANIEL Performing Organization Address [facility]/ZIP Co de Phone Number [facility] [place] [address] * COLONOSCOPY (05/12/2021 2:18 PM EST) COLONOSCOPY [facility] Endoscopy Procedure Date: 05/12/2021 2:18 PM ? Patient Name: Nain Mckeon ? Date of : 1950 ? Age: 70 ? Order #: [id number] ? Instrument Name: [id number] ? Procedure: ? Colonoscopy Indications: ? Screening patient at increased risk: ? Family history of 1st-degree relative ? with colorectal cancer at age 60 ? years (or older) Providers: ? Nicky Bray MD, Sav Platt ? Ivon Angel, Bag Turner Referring MD: ?Celio Sanders MD Medicines: ? [...] preparation was ? evaluated using the BBPS ([place] ? Bowel Preparation Scale) with scores ? [...] Procedure Code(s): ?? --- Professional --- ? 58662, Colonoscopy, flexible; with ? removal of tumor(s), polyp(s), or ? other lesion(s) by snare technique CPT copyright 2019 [employer]. All rights reserved. The codes documented in this report are preliminary and upon surgical coder review may be revised to meet [...] CRNA) documented in this encounter Care Teams Operater Relationship Specialty Start Date End Date Celio Sanders MD [address] [place] [address] PCP - General Internal Medicine 05/19/16 documented as of this encounter
--- OUTSIDE RECORDS SUMMARY | 2023-11-19 09:24 | XMS_ITS | Encounter Summary ---
Author Organization [facility] Address [facility] [place] [address] Care Team Providers Care Health Safety And Environment Manager Name Role Phone Celio Sanders MD Primary Care Provider [phone] Encounter Details Date Type Department Care Team (Late st Contact Info) Description 07/08/2022 2:30 PM EDT Office Visit Radiation Oncology at [address] [phone] Rama Ramos APRN [facility] [place] [address] Malignant neoplasm of prostate (Primary Dx) Social [...] this encounter Progress Notes * Rama Ramos, COMMERCIAL COLLECTIONS SPECIALIST - 07/08/2022 2:30 PM EDTSummary: 71 year old M dx high risk prostate cancer. Compl RT 10/27/16. Compl 3 years ADT w/ final dose 05/2019 [facility] [place] [address] Phone: RADIATION ONCOLOGY FOLLOW UP NOTE Patient [...] [place] and ended when he returned to [place]. [...] LN no longer seen). Pt was in [place] for a period of 5 months and he received a 22.5mg leuprolide there on 05/15/2018. The facility [facility] and Provider Sp Coreas MD. 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 Smoking:none Alcohol:none [...] of manic sx. He had this in [place] during a visitthere but only on x [...] one point that [facility] but his Dr in [place] stated in note reluctance to [place] based on superintendent terminal CV risk factors. There is also an [...] months X 5 years, then annually. Annual DWEEY (unless PSA undetectable or prostatectomy). PSA may be checked more frequently depending on risk level or other patient specific factors. Next visit:3 months Labs: PSA, testosterone, CBC, CMP Consider PSMA scan if rising toward 2.0 Nain J Linda had the opportunity to ask questions and I answered them to the best of my knowledge.Nain Mckeon agreed to contact radiation oncology in between visits if he has any questions/concerns or new symptoms in regards to the radiation therapy/prostate cancer Rama Ramos MSN, COMMERCIAL COLLECTIONS SPECIALIST, WELL HEAD PUMPER-C Nurse Practitioner Radiation Oncology documented in this encounter Plan of Treatment Upcoming Encounters Date Type Department Care Team (Late st Contact Info) Description 01/24/2024 2:00 PM EST Office Visit Dermatology at [facility] [address] [place] [address] Prisca Hughes MD [facility] DR [address] [address] documented as of this encounter Visit Diagnoses Diagnosis Malignant neoplasm of prostate- Primary documented in this encounter Care Teams Health Safety And Environment Manager Relationship Specialty Start Date End Date Celio Sanders MD [address] [place] [address] PCP - General Internal Medicine 05/19/16 documented as of this encounter
--- OUTSIDE RECORDS SUMMARY | 2023-11-19 09:24 | XMS_ITS | Encounter Summary ---
Author Organization [facility] Address [facility] [place] [address] Care Team Providers Care College Scouting Coordinator Name Role Phone Celio Sanders MD Primary Care Provider [phone] Encounter Details Date Type Department Care Team [...] 2:00 PM EST Office Visit Dermatology at [facility] [address] [place] [address] Prisca Hughes MD [facility] [address] [place] [address] documented as of this encounter Visit Diagnoses Not on filedocumented in this encounter Care Teams College Scouting Coordinator Relationship Specialty Start Date End Date Celio Sanders MD [address] [place], [place] [address] PCP - General Internal Medicine 05/19/16 documented as of this encounter
--- OUTSIDE RECORDS SUMMARY | 2023-11-19 09:24 | XMS_ITS | Encounter Summary ---
Author Organization [facility] [place] [address] Care Team Providers Care Belt Molder Name Role Phone Celio Sanders MD Primary Care Provider [phone] Encounter Details Date Type Department Care Team (Late st Contact Info) Description 01/03/2023 [place] [phone] Allyn Del Toro RN Social History Tobacco [...] biopsy If yes, review with PCP or automotive tire testing supervisor to discuss bridging OTC, herbal and vitamin [...] PSA: 1.7 in Oct; will recheck at [facility] (order faxed 01/03/23) MRI: 12/30/22 PI-RADS 5 [...] 3rd world country): Not indicated Patient Instructions/Information: [place] at Medical Assisting Program Director 5B Eat breakfast Administer fleet enema night [...] 2:00 PM EST Office Visit Dermatology at [facility] [address] [place] [address] Prisca Hughes MD [facility] [address] [place] [address] documented as of this encounter Visit Diagnoses Not on filedocumented in this encounter Care Teams Belt Molder Relationship Specialty Start Date End Date Celio Sanders MD [address] [place] [address] PCP - General Internal Medicine 05/19/16 documented as of this encounter
--- OUTSIDE RECORDS SUMMARY | 2023-11-19 09:24 | XMS_ITS | Encounter Summary ---
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 Contact Info) Description 07/20/2021 Orders Only Hematology/Oncology at [address] [address] Dayana Tompkins, RN BRCA gene mutation positive; [...] 2:00 PM EST Office Visit Dermatology at 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
--- OUTSIDE RECORDS SUMMARY | 2023-11-19 09:24 | XMS_ITS | Encounter Summary ---
Author Organization [facility] Address [facility] [place] [address] Care Team Providers Care Lunch Counter Manager Name Role Phone Celio Sanders MD Primary Care Provider [phone] Encounter Details Date Type Department Care Team [...] at [facility] [address] [place] [address] Prisca Hughes MD [facility] [address] [place] [address] documented as of this encounter Visit Diagnoses Not on filedocumented in this encounter Care Teams Lunch Counter Manager Relationship Specialty Start Date End Date Celio Sanders MD [address] [place] [address] PCP - General Internal Medicine 05/19/16 documented as of this encounter
--- OUTSIDE RECORDS SUMMARY | 2023-11-19 09:24 | XMS_ITS | Encounter Summary ---
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 Dayana Tompkins, RN [address] [place] [address] [place] [address] [facility] Dermatology [address] [place] [address] Referral ID Status Reason Start Date Expiration Date V isits Requested Visits Authorized [id number] Closed Consult, Test & Treat 07/20/2021 07/20/2022 1 1 Encounter Details Date Type Department Care Team (Late st Contact Info) Description 10/06/2021 3:00 PM EDT Office Visit Dermatology at [facility] [address] [place] [address] Ernst Rinaldi MD [facility] [address] [place] [address] Inflamed seborrheic keratosis; SK (seborrheic [...] 1 year for FSE []Note routed to field secretary [x]Recall placed in scheduling system []Appointment scheduled at checkout Scribe attestation: Yordy Wesley MA has performed the documentation for this encounter in the presence of and acting as a scribe for Ernst Rinaldi MD. I performed the above scribed service and agree with the accuracy of the documentation in this encounter. Reviewed and signed by: Ernst Rinaldi MD Dermatology [facility] Patient seen and evaluated with staff machine operators: Patsy Ely MD Dermatology [facility] * Patsy Ely MD - 10/06/2021 3:00 [...] 2:00 PM EST Office Visit Dermatology at [address] [address] Prisca Hughes MD [facility] [address] [place] [address] Scheduled Referrals Name Type Priority Associated Diagnoses [...] unspecified documented in this encounter Care Teams Cdl Service Technician Relationship Specialty Start Date End Date Celio Sanders MD [address] [place] [address] PCP - General Internal Medicine 05/19/16 documented as of this encounter
--- OUTSIDE RECORDS SUMMARY | 2023-11-19 09:24 | XMS_ITS | Encounter Summary ---
Author Organization [facility] Address [facility] [place] [address] Care Team Providers Care Short Piece Handler Name Role Phone Celio Sanders MD Primary Care Provider [phone] Encounter Details Date Type Department Care Team (Late st Contact Info) Description 05/04/2019 11:00 AM EST Office Visit Hematology/Oncology at [address] [phone] Remy Barillas MD [facility] [place] [address] Dayana Tompkins, RN Malignant neoplasm of prostate [...] 5/12 cores (all on right side), T2b, [place] 8 Darlyn-neural invasion present PSA - 47.5 [...] negative 9. Genetic testing 03/2018 - Result: [employer]'s Common Hereditary Cancers Panel showed that Nain carries a pathogenic variant (mutation) in BRCA2 specifically c.1929del(p.Zdg435Qwute15). This result is consistent with a diagnosis [...] BRCA2, BRIP1, CDH1, CDK4, CDKN2A (p14ARF), CDKN2A (s89NKW5d), CHEK2, CTNNA1, DICER1, EPCAM (EPCAM: Deletion/duplication testing [...] the AXIN2 and CTNNA1 genes, specifically c.1531A>T (p.Nwn520Uac) and c.515A>T (p.Wpi155Vxu), were detected. ? Interpretation: The most significant consequences of carrying a pathogenic variant in BRCA2 are increased risks forbreast cancer and ovarian cancer in women. For men, the most significant consequence is for prostate cancer so this finding is felt to be related to Nancies cancer. Other cancers associated with HUEK5skb breast cancer in men, pancreatic, and melanoma. [...] with them. ?? Nain's sons live in [place] and [place]. They can go to the website of [...] the gene with no increased cancer risks. [employer] is continually collecting and analyzing their data, [...] and mailing address stay updated in the [facility] system, in order for us to reach [...] in the future, Dr. Ara Mary, a bradley linebacker crewmember at [facility] in [place], is willing to discuss these screening options with Nain. Nain can schedule an appointment with her by reaching her paralegal secretary at [phone]. ?? Prostate Cancer Screening for Nain's sons [...] Periodic colonoscopy screening as recommended by Nain's bradley linebacker crewmember. ?? HPI Mr. Mckeon is seen in [...] urinate lately. Soc Hx: , lives in [place], [place]. He goes to [place] from December to June. 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 [place] score was 8 in two of the [...] Office Visit Dermatology at [facility] [address] [place] [address] Prisca Hughes MD [facility] DR [place] [address] documented as of this encounter Visit Diagnoses Diagnosis Malignant neoplasm of prostate documented in this encounter Care Teams Short Piece Handler Relationship Specialty Start Date End Date Celio Sanders MD [address] [place] [address] PCP - General Internal Medicine 05/19/16 documented as of this encounter
--- OUTSIDE RECORDS SUMMARY | 2023-11-19 09:24 | XMS_ITS | Encounter Summary ---
Author Organization [facility] Address [facility] [place] [address] Care Team Providers Care Freight Adjuster Name Role Phone Celio Sanders MD Primary Care Provider [phone] Encounter Details Date Type Department Care Team [...] 2:00 PM EST Office Visit Dermatology at [facility] [address] [place] [address] Prisca Hughes MD [facility] [address] [place] [address] documented as of this encounter Visit Diagnoses Not on filedocumented in this encounter Care Teams Freight Adjuster Relationship Specialty Start Date End Date Celio Sanders MD [address] [place], [place] [address] PCP - General Internal Medicine 05/19/16 documented as of this encounter
--- OUTSIDE RECORDS SUMMARY | 2023-11-19 09:24 | XMS_ITS | Encounter Summary ---
Author Organization [facility] Address [facility] [place] [address] Care Team Providers Care Senior Cyber Intelligence Analyst Name Role Phone Celio Sanders MD Primary Care Provider Encounter Details Date Type Department Care Team (Late st Contact Info) Description 07/17/2021 3:30 PM EDT Office Visit Hematology/Oncology at [address] [address] Dayana Tompkins RN BRCA gene [...] this encounter Progress Notes * Dayana Tompkins, SYSTEMS LIBRARIAN - 07/17/2021 3:30 PM EDT Subjective: Patient [...] 5/12 cores (all on right side), T2b, Bryce 8 Darlyn-neural invasion present PSA - 47.5 [...] a pathogenic variant (mutation) in BRCA2 specifically c.1929del(p.Ofi853Jbmqw15). 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 At the time of the appointment,??Nain?Jessywas provided with a printed copy of his??test result and an informational packet addressing a positive test result. ?? The following??47??genes were evaluated for sequence changes and exonic deletions/duplications: APC, RUMA, AXIN2, BARD1, BMPR1A, BRCA1, BRCA2, BRIP1, CDH1, CDK4, CDKN2A (p14ARF), CDKN2A (z14XCH8k), CHEK2, CTNNA1, DICER1, EPCAM (EPCAM: Deletion/duplication testing [...] (VUS) in the AXIN2 and CTNNA1??genes, specifically c.1531A>T(p.Qag519Ppr) and c.515A>T (p.Jft888Uns), were??detected. ? Interpretation: The most significant consequences [...] with them. ?? Nain's sons live in [place] and [place]. ??They can go to [...] and mailing address stay updated in the [facility] system, in order for us to reach [...] possibility in the future,??Dr. Ara Mary, a tanker truck driver at [facility] in [place], is willing to discuss these screening options with Nain.??Nain??can schedule an appointment with her by reaching her secretary administrative assistant at [phone]. ?? Prostate Cancer Screening for Nain's sons ? Prostate cancer screening starting at age 40.?If either of them is found to not have the BRCA2 mutation then they can consider screening beginning at age 50 which is the recommendation for menin the general population ?? Skin cancer screening ?? Periodic skin exams ?? Colon cancer screening ?? Periodic colonoscopy screening as recommended by??Nain's tanker truck driver. ?. ??SUMMARY ASSESSMENT/PLAN 07/24 He was diagnosed with prostate cancer in 2016 after presenting with hematuria and found to have an abnormal prostate gland on exam. TRUS prostate bx showed adenocarcinoma in 5/12 cores, all on the right. Bryce score was 8 in two of the [...] PSA. ? Soc Hx: , lives in [place], [place]. He goes to [place] from December to June. 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 Fam Hx: Father with prostate [...] summarized above.) Nain returns [facility] in [facility] today for [...] swimming 5-6 times a week at the [facility] [employer]. He also walks his dogs daily. His [...] Nain is in agreement to see a line installation supervisor for baseline exam as his BRCA2 positive [...] returns to the [facility] oncology clinic in [facility] today for [...] [facility] [address] [place] [address] Prisca Hughes MD [facility] DR [address] [place] [address] documented as of this encounter Visit Diagnoses Diagnosis BRCA gene mutation positive Prostate cancer metastatic to intrapelvic lymph node documented in this encounter Care Teams Senior Cyber Intelligence Analyst Relationship Specialty Start Date End Date Celio Sanders MD [address] [place] [address] PCP - General Internal Medicine 05/19/16 documented as of this encounter
--- OUTSIDE RECORDS SUMMARY | 2023-11-19 09:24 | XMS_ITS | Encounter Summary ---
Author Organization [facility] [place] [address] Care Team Providers Care Zipper Slide Attacher Name Role Phone Celio Sanders MD Primary Care Provider [phone] Reason for Referral * Diagnostic Test (Routine) - Closed Specialty Diagnoses / Procedures Referred By Contkulwant de la rosa Referred To Contact Radiology Diagnoses Malignant neoplasm of prostate Procedures MRI Pelvis wwo (Prostate) Diane Leavitt MD [facility] [place] [address] [place] [address] Referral ID Status Reason Start Date Expiration Date V isits Requested Visits Authorized [id number] Closed Specialty Service Requested 11/18/2022 05/16/2024 1 1 Encounter Details Date Type Department Care Team (Late st Contact Info) Description 11/18/2022 2:30 PM EDT Office Visit Radiation Oncology at [address] [phone] Ronnie Vazquez MD [address] [place] [address] [place] [address] Malignant neoplasm of prostate (Primary [...] 11/18/22 Ronnie Vazquez MD, MS Radiation Oncology [facility] [phone] (paging capper machine operator) Pager #[phone] PATIENT IDENTIFICATION IDENTIFICATION: Nain Mckeon is a 66 y.o. male with node positive prostate cancer who completed radiotherapy to his pelvis and prostate at the [facility] in [place], [place]. Details of his radiation treatment course [...] fractions INTERVAL HISTORY He has followed with Rama Ramos NP of our department at [facility] in [facility]. He completed 3 years of LT ADT [...] (scheduled for 11/22/2022). He has nocturia 1-3x, e0pxdvq during the day. No incontinence, urgency. No issues with bowels or rectum. He is very active, playing [employer] daily and swimming several times weekly. Performance [...] 0.56 07/07/21 0.26 04/10/21 0.19 IMPRESSION/PLAN Nain Mckeon is a 72 y.o. male initially diagnosed [...] salvage prostatectomy or reirradiation with brachytherapy at [facility]. We also discussed that resuming ADT [...] Leavitt MD Chief Resident ([id number]) Radiation Oncology [facility] Attending Attestation: I have seen the patient [...] visit as above Ronnie Vazquez MD, MS Manager Diabetes Radiation Oncology documented in this encounter Plan of Treatment Upcoming Encounters Date Type Department Care Team (Late st Contact Info) Description 01/24/2024 2:00 PM EST Office Visit Dermatology at [facility] [address] [place] [address] Prisca Hughes MD [facility] [address] [place] [address] documented as of this encounter Results * [...] at Multiparametric MRI. Radiology. 2019 Mar;290(3):709719. doi: 10.1148/radiol.[id number]. Epub 2018Mar 28. Thank you for letting us participate in the care of this patient. ??If you are a health care provider and have any questions regarding this report, please contact the number below. ??For patients who have questions please contact the health wound care technician that requested your imaging first. ? Electronically signed by: Isac Hearn MD, [facility] ([phone]), at 12/31/2022 9:26 AM Narrative 12/31/2022 9:26 [...] Cancer at Multiparam[facility] MRI. Radiology. 2019Mar;290(3):709-719. doi: [id number]/radiol.[id number]. Epub 2018Mar 28. Thank you for letting us participate in the care of this patient. If youare a health care provider and have any questions regarding this report,please contact the number below. For patients who have questions please contactthe health wound care technician that requested your imaging first. Electronically signed by: Isac Hearn MD, [facility]([phone]), at 12/31/2022 9:26 AM Ronnie Vazquez MD IMG MRI ORDERABLES documented in this encounter Visit Diagnoses Diagnosis Malignant neoplasm of prostate- Primary Malignant neoplasm of prostate documented in this encounter Care Teams Zipper Slide Attacher Relationship Specialty Start Date End Date Celio Sanders MD [address] [place] [address] PCP - General Internal Medicine 05/19/16 documented as of this encounter
--- OUTSIDE RECORDS SUMMARY | 2023-11-19 09:24 | XMS_ITS | Encounter Summary ---
Author Organization [facility] Address [facility] [place] [address] Care Team Providers Care Early Breastfeeding Care Specialist Name Role Phone Celio Sanders MD Primary Care Provider [phone] Encounter Details Date Type Department Care Team (Late Contact Info) Description 05/31/2022 Orders Only [place] [address] Rama Ramos APRN [facility] [place] [address] Malignant neoplasm of prostate (Primary Dx) Social [...] at [facility] [address] [place] [address] Prisca Hughes MD [facility] [address] [place] [address] documented as of this encounter Visit Diagnoses Diagnosis Malignant neoplasm of prostate- Primary documented in this encounter Care Teams Early Breastfeeding Care Specialist Relationship Specialty Start Date End Date Celio Sanders MD [address] [place] [address] PCP - General Internal Medicine 05/19/16 documented as of this encounter
--- OUTSIDE RECORDS SUMMARY | 2023-11-19 09:24 | XMS_ITS | Encounter Summary ---
Author Organization [facility] Address [facility] [place] [address] Care Team Providers Care Geek Squad Autotech Name Role Phone Celio Sanders MD Primary Care Provider [phone] Encounter Details Date Type Department Care Team [...] 2:00 PM EST Office Visit Dermatology at [facility] [address] [place] [address] Prisca Hughes MD [facility] [address] [place] [address] documented as of this encounter Visit Diagnoses Not on filedocumented in this encounter Care Teams [employer] Relationship Specialty Start Date End Date Celio Sanders MD [address] [place], [place] [address] PCP - General Internal Medicine 05/19/16 documented as of this encounter
--- OUTSIDE RECORDS SUMMARY | 2023-11-19 09:24 | XMS_ITS | Encounter Summary ---
Author Organization [facility] Address [facility] [place] [address] Care Team Providers Care Lace Roller Name Role Phone Celio Sanders MD Primary Care Provider [phone] Encounter Details Date Type Department Care Team [...] [facility] [address] [place] [address] Prisca Hughes MD [facility] [address] [place] [address] documented as of this encounter Visit Diagnoses Not on filedocumented in this encounter Care Teams Lace Roller Relationship Specialty Start Date End Date Celio Sanders MD [address] [place], [place] [address] PCP - General Internal Medicine 05/19/16 documented as of this encounter
--- OUTSIDE RECORDS SUMMARY | 2023-11-19 09:24 | XMS_ITS | Encounter Summary ---
Author Organization [facility] [place] [address] Care Team Providers Care Lead Cook Name Role Phone Celio Sanders MD Primary Care Provider [phone] Reason for Visit * Consultation (Routine) - Closed Specialty Diagnoses / Procedures Referred By Tess de la rosa Referred To Contact Urology Diagnoses Prostate cancer metastatic to intrapelvic lymph node Ronnie Vazquez MD [address] [place] [address] [place] [address] [facility] [place] [address] Referral ID Status Reason Start Date Expiration Date V isits Requested Visits Authorized [id number] Closed Consult, Test & Treat 01/03/2023 01/03/2024 1 1 Encounter Details Date Type Department Care Team (Late st Contact Info) Description 01/20/2023 9:30 AM EST Procedure [place] [address] Teresa Kelly MD [facility] [place] [address] Elevated PSA Social History Tobacco Use Types [...] pathology result may be released to your [facility] account before we have had a chance to contact you. You should feel free to check your [facility] if you would like to see if [...] after these hours, please call the hospital disposal operator at and ask to have the Urology [...] 2:00 PM EST Office Visit Dermatology at [facility] [address] [place] [address] Prisca Hughes MD [facility] [address] [place] [address] Scheduled Orders Name Type Priority Associated Diagnoses [...] Urology who performed multiple biopsies in the [address] [place] [address] location. UroNav fusion was used for this procedure. Electronically signed by: Mahnaz Coello MD, [facility] ([phone]), at 01/20/2023 1:03 PM Thank you for letting us participate in the care of this patient. If you are a health care provider and have any questions regarding this report, please contact the number above. For patients who have questions, please contact the health childcare center director that requested your imaging first. ? Mahnaz Coello, Staff Physician Electronically Signed Final Report ?? 01/20/2023 01:09 pm Narrative 01/20/2023 1:10 PM EST Male Pelvis ? (Signed Final 01/20/2023 01:09 pm) PATIENT INFO: ID #: ? [id number] ?: ??[birth year] (72 yrs)(M) Name: ? NAIN LIPSCOMB ?Visit Date: 01/20/2023 10:17 am PERFORMED BY: Attending: ?Mode MUNOZ, Mahnaz Burroughs Performed By: ? Joce Phelps RDMS Referred By: ?TERESA KELLY Location: ? [place] SERVICE(S) PROVIDED: UTRBXURO - Prostate Biopsy with UroNav Fusion ? [id number], [id number] - [id number] INDICATIONS: PI-RADS 5 TECHNIQUE/SCAN QUALITY: Technique: ?Transducer [...] 01/20/2023 01:09 pm) PATIENT INFO: ID #: [id number] : [birth year] (72 yrs)(M) Name: NAIN LIPSCOMB Visit Date: 01/20/2023 10:17 am PERFORMED BY: Attending: Mahnaz Coello MD Performed By: Joce Phelps RDMS Referred By: TERESA KELLY Location: [place] SERVICE(S) PROVIDED: UTRBXURO - Prostate Biopsy with UroNav Fusion [id number], [id number] - [id number] INDICATIONS: PI-RADS 5 TECHNIQUE/SCAN QUALITY: Technique: Transducer [...] Urology who performed multiple biopsies in the [address] [place] [address] location. UroNav fusion was used for this procedure. Electronically signed by: Mahnaz Coello MD, [facility] ([phone]), at 01/20/2023 1:03 PM Thank you for letting us participate in the care of this patient. If you are a health care provider and have any questions regarding this report, please contact the number above. For patients who have questions, please contact the health childcare center director that requested your imaging first. Mahnaz Coello, Staff Physician Electronically Signed Final Report 01/20/2023 01:09 pm Teresa Kelly MD [facility] ORDERA BLES documented in this encounter [...] mg documented in this encounter Care Teams Lead Cook Relationship Specialty Start Date End Date Celio Sanders MD [address] [place] [address] PCP - General Internal Medicine 05/19/16 documented as of this encounter
--- OUTSIDE RECORDS SUMMARY | 2023-11-19 09:25 | XMS_ITS | Encounter Summary ---
Author Organization [facility] Address [facility] [place] [address] Care Team Providers Care Frequency Checker Name Role Phone Celio Sanders MD Primary Care Provider [phone] Encounter Details Date Type Department Care Team (Late Contact Info) Description 04/27/2019 Ancillary Procedure Radiology Library at [facility] [place] [address] Remy Barillas MD [facility] [address] [address] Social History Tobacco Use Types Packs/Day Years [...] PM EST Office Visit Dermatology at [address] [place] [address] Prisca Hughes MD [facility] DR PHOEBE [place] [address] documented as of this encounter Procedures Procedure Name Priority Date/Time Associated Diagnosis Comments FILM LIBRARY STORAGE ONLY CT ABDOMEN AND PELVIS Routine 04/27/2019 12:00 AM EST documented in this encounter Results * Film Library- Storage Only CT Abdomen & Pelvis (04/27/2019 12:00 AM EST) Narrative LAINE HATHAWAY - 04/30/2019 8:45 AM EST This exam is auto-finalizing. It's purpose is for storage only. Remy Barillas MD IMG FILM LIBRARY ORD ERABLES [place], [place] documented in this encounter Visit Diagnoses Not on filedocumented in this encounter Care Teams Frequency Checker Relationship Specialty Start Date End Date Celio Sanders MD [address] [place] [address] PCP - General Internal Medicine 05/19/16 documented as of this encounter
--- OUTSIDE RECORDS SUMMARY | 2023-11-19 09:25 | XMS_ITS | Encounter Summary ---
Author Organization [facility] [place] [address] Care Team Providers Care It Technical Support Specialist Name Role Phone Celio Sanders MD Primary Care Provider Encounter Details Date Type Department Care Team (Late st Contact Info) Description 10/28/2016 Notes Only Radiation Oncology at [address] [phone] Ronnie Vazquez MD [address] [place] [address] DR RADIATION ONCOLOGY [place], [place] [id number] Social History Tobacco Use Types Packs/Day Years [...] to his pelvis and prostate at the [place], [place]. Details of his radiation treatment course [...] FOLLOWUP: Follow-up visit with Radiation Oncology in [facility] is scheduled for 11/18/16for clinical symptom check; he has received instructions to call this office or seek the help of the local emergency room if any further problems should arise prior to followup. documented in this encounter Plan of Treatment Upcoming Encounters Date Type Department Care Team (Late st Contact Info) Description 01/24/2024 2:00 PM EST Office Visit Dermatology at [address] [address] Prisca Hughes MD [facility] DR [address] [place] [address] documented as of this encounter Visit Diagnoses Not on filedocumented in this encounter Care Teams It Technical Support Specialist Relationship Specialty Start Date End Date Celio Sanders MD [address] [place] [address] PCP - General Internal Medicine 05/19/16 documented as of this encounter
--- OUTSIDE RECORDS SUMMARY | 2023-11-19 09:25 | XMS_ITS | Encounter Summary ---
[place] [address] Care Team Providers Care Asset Protection Officer Name Role Phone Celio Sanders MD Primary Care Provider [phone] Reason for Visit * Reason Onset Date Comments Prior Authorization 08/08/2017 NO AUTH REQU IRED FOR PSYI Encounter Details Date Type Department Care Team (Late st Contact Info) Description 08/08/2017 [place] [phone] Edson Ferguson Prior Authorization (NO AUTH REQUIRED [...] at [address] [place] [address] Prisca Hughes MD [facility] DR [place] [address] documented as of this encounter Visit Diagnoses Not on filedocumented in this encounter Care Teams Asset Protection Officer Relationship Specialty Start Date End Date Celio Sanders MD [address] [place] [address] PCP - General Internal Medicine 05/19/16 documented as of this encounter
--- OUTSIDE RECORDS SUMMARY | 2023-11-19 09:25 | XMS_ITS | Encounter Summary ---
Author Organization [facility] Address [facility] [place] [address] Care Team Providers Care Electronic Development Technician Name Role Phone Celio Sanders MD Primary Care Provider [phone] Reason for Visit * Reason Comments Follow-up Encounter Details Date Type Department Care Team (Late st Contact Info) Description 07/26/2017 3:30 PM EDT Office Visit Hematology/Oncology at [address] [phone] Harjinder Snyder MD [facility] [place] [address] Malignant neoplasm of prostate; Neoplasm of prostate [...] Subjective: My muscle strength is going down HPI:aNin Mckeon is 66 y.o.M referred to us [...] on prostate cancer. He followed[place] oncologist in [place] initiated abiraterone 250 mg daily with low-fat diet and prednisone 5 mg a day about 4 weeks ago. Nain feels that his bipolar disorder is [id number], buthe follows with therapist on that matter. [...] of education: N/A Occupational History ??? 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 A - Prostatic core needle biopsy, right lateral base: ? 1. Adenocarcinoma, grade group 3, [place] grade 4+3, ?involving 95% of the biopsy core. ? 2. Perineural invasion identified. B - Prostatic core needle biopsy, right medial base: ? 1. Adenocarcinoma, grade group 3, [place] grade 4+3, ?involving 95% of the biopsy core. ? 2. Perineural invasion identified. C - Prostatic core needle biopsy, right mid lateral: ? Adenocarcinoma, grade group 4, [place] grade 4+4, ? involving 90% of the biopsy core. D - Prostatic core needle biopsy, right mid medial: ? 1. Adenocarcinoma, grade group 4, [place] grade 4+4, ?involving 40% of the biopsy core. ? 2. Perineural invasion identified. E - Prostatic core needle biopsy, right lateral apex: ? Benign prostatic tissue. F - Prostatic core needle biopsy, right medial apex: ? Adenocarcinoma, grade group 3, [place] grade 3+4, ? involving 25% of the [...] Prostate adenocarcinoma, PSA 47.5, Andre 4+4=8/10, Stage [id number]. Treatment: - 05/31/16 Lupron 22.5 and bicalutamide [...] Oncology 36, no. 14 (Jul 14 2017) [id number]). He is concerned that prednisone is contributing [...] 2:00 PM EST Office Visit Dermatology at [address] [address] Prisca Hughes MD [facility] DR HPO[place] [address] documented as of this encounter Visit Diagnoses Diagnosis Malignant neoplasm of prostate 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 documented in this encounter Care Teams Electronic Development Technician Relationship Specialty Start Date End Date Celio Sanders MD [address] [place] [address] PCP - General Internal Medicine 05/19/16 documented as of this encounter
--- OUTSIDE RECORDS SUMMARY | 2023-11-19 09:25 | XMS_ITS | Encounter Summary ---
Author Organization [facility] Address [facility] [place] [address] Care Team Providers Care Expediter Service Order Name Role Phone Celio Sanders MD Primary Care Provider [phone] Encounter Details Date Type Department Care Team (Late st Contact Info) Description 12/21/2016 Telephone [place]iation [place] [phone] Nicky Marcelo Social History Tobacco Use Types [...] 2:00 PM EST Office Visit Dermatology at [facility] [address] [place] [address] Prisca Hughes MD [facility] DR PHOE[facility] [place] [address] documented as of this encounter Visit Diagnoses Not on filedocumented in this encounter Care Teams Expediter Service Order Relationship Specialty Start Date End Date Celio Sanders MD [address] [place] [address] PCP - General Internal Medicine 05/19/16 documented as of this encounter
--- OUTSIDE RECORDS SUMMARY | 2023-11-19 09:25 | XMS_ITS | Encounter Summary ---
Author Organization [facility] [place] [address] Care Team Providers Care Pasteurizer Helper Name Role Phone Celio Sanders MD Primary Care Provider [phone] Reason for Visit * Reason Comments Prostate Cancer Encounter Details Date Type Department Care Team (Late st Contact Info) Description 08/23/2017 3:00 PM EDT Office Visit Hematology/Oncology at [address] [phone] Gael Anderson MD [address] [place] [phone] Malignant neoplasm of prostate Social History Tobacco [...] Andre 4+4 disease in 2 cores and [place] 4+3 disease in 3 additional cores. 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 Smoking status: [...] for this visit. Pathology: 05/17/16 Extradepartmental number: ??[id number]; collection date, 04/27/2016. A - Prostatic core needle biopsy, right lateral base: ? 1. Adenocarcinoma, grade group 3, [place] grade 4+3, ?involving 95% of the biopsy [...] medial apex: ? Adenocarcinoma, grade group 3, [place] grade 3+4, ? involving 25% of the [...] 2:00 PM EST Office Visit Dermatology at [address] [place] [address] Prisca Hughes MD [facility] DR [facility] [address] documented as of this encounter Visit Diagnoses Diagnosis Malignant neoplasm of prostate documented in this encounter Care Teams Pasteurizer Helper Relationship Specialty Start Date End Date Celio Sanders MD [address] [place] [address] PCP - General Internal Medicine 05/19/16 documented as of this encounter
--- OUTSIDE RECORDS SUMMARY | 2023-11-19 09:25 | XMS_ITS | Encounter Summary ---
Author Organization [facility] [place] [address] Care Team Providers Care Court Abstractor Name Role Phone Celio Sanders MD Primary Care Provider Encounter Details Date Type Department Care Team (Late st Contact Info) Description 10/21/2016 4:45 PM EDT Office Visit Radiation Oncology at [address] [phone] Ronnie Vazquez MD [address] [place] [address] DR RADIATION ONCOLOGY [place], [place] [phone] Cancer of prostate with high recurrence risk (stage T3a or [place] 8-10 or PSA > 20); Neoplasm of [...] Progress Notes * Ronnie Vazquez MD - 10/21/2016 4:45 PM EDT Images from the original note were not included. RADIATION ONCOLOGY - Weekly On Treatment Visit Note 10/21/16 Ronnie Vazquez MD Radiation Oncology [facility] [phone] (paging metal wire coating operator) PATIENT IDENTIFICATION NAME: Nain Mckeon DATE [...] Pain score today is 0/10. Medications 10/21/16 3934 Medication Sig Taking? ondansetron (ZOFRAN-ODT) 8 mg [...] 2:00 PM EST Office Visit Dermatology at [facility] [address] [place] [address] Prisca Hughes MD [facility] DR PHOEBE [place] [address] documented as of this encounter Visit Diagnoses Diagnosis Cancer of prostate with high recurrence risk (stage T3a or [place] 8-10 or PSA > 20) Malignant neoplasm of prostate 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 documented in this encounter Care Teams Court Abstractor Relationship Specialty Start Date End Date Celio Sanders MD [address] [place] [address] PCP - General Internal Medicine 05/19/16 documented as of this encounter
--- OUTSIDE RECORDS SUMMARY | 2023-11-19 09:25 | XMS_ITS | Encounter Summary ---
Author Organization [facility] Address [facility] [place] [address] Care Team Providers Care Companion Caregiver Name Role Phone Celio Sanders MD Primary Care Provider [phone] Encounter Details Date Type Department Care Team (Late st Contact Info) Description 11/16/2018 1:30 PM EDT Office Visit Hematology/Oncology at [address] [phone] Yeni Gallardo APRN [address] [place] [phone] Prostate cancer metastatic to intrapelvic lymph node [...] encounter Progress Notes * Yeni Gallardo Brianna, HEALTH OCCUPATIONS TEACHER - 11/16/2018 1:30 PM EDT Subjective: Patient [...] prior to Lupron injection. Yeni Gallardo, MSN, HEALTH OCCUPATIONS TEACHER, AOCNP documented in this encounter Plan of Treatment Upcoming Encounters Date Type Department Care Team (Late st Contact Info) Description 01/24/2024 2:00 PM EST Office Visit Dermatology at [facility] [address] [place] [address] Prisca Hughes MD [facility] DR PHOE[place] [address] documented as of this encounter Visit Diagnoses Diagnosis Prostate cancer metastatic to intrapelvic lymph node documented in this encounter Care Teams Companion Caregiver Relationship Specialty Start Date End Date Celio Sanders MD [address] [place] [address] PCP - General Internal Medicine 05/19/16 documented as of this encounter
--- OUTSIDE RECORDS SUMMARY | 2023-11-19 09:25 | XMS_ITS | Encounter Summary ---
Author Organization [facility] [place] [address] Care Team Providers Care Meeting Coordinator Name Role Phone Celio Sanders MD Primary Care Provider [phone] Reason for Visit * Reason Comments Prostate Cancer Encounter Details Date Type Department Care Team (Late st Contact Info) Description 11/15/2017 2:00 PM EDT Office Visit Hematology/Oncology at [address] [phone] Gael Anderson MD [address] [place] [phone] Prostate cancer metastatic to intrapelvic lymph node [...] Andre 4+4 disease in 2 cores and [place] 4+3 disease in 3 additional cores. All [...] on prostate cancer. He followedwith oncologist in [place] initiated abiraterone 250 mg daily with low-fat [...] a retired used to work for a [employer] company. He has 2 children. Lives at home with his . Social History Social History ??? Marital status: Spouse name: N/A ??? Number of children: N/A ??? Years of education: N/A Occupational History ??? 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 A - Prostatic core needle biopsy, right lateral base: ? 1. Adenocarcinoma, grade group 3, [place] grade 4+3, ?involving 95% of the biopsy core. ? 2. Perineural invasion identified. B - Prostatic core needle biopsy, right medial base: ? 1. Adenocarcinoma, grade group 3, Andre grade 4+3, ?involving 95% of the biopsy core. ? 2. Perineural invasion identified. C - Prostatic core needle biopsy, right mid lateral: ? Adenocarcinoma, grade group 4, [place] grade 4+4, ? involving 90% of the biopsy core. D - Prostatic core needle biopsy, right mid medial: ? 1. Adenocarcinoma, grade group 4, [place] grade 4+4, ?involving 40% of the biopsy core. ? 2. Perineural invasion identified. E - Prostatic core needle biopsy, right lateral apex: ? Benign prostatic tissue. F - Prostatic core needle biopsy, right medial apex: ? Adenocarcinoma, grade group 3, [place] grade 3+4, ? involving 25% of the [...] 2:00 PM EST Office Visit Dermatology at [facility] [address] [place] [address] Prisca Hughes MD [facility] DR [place] [address] documented as of this encounter Visit Diagnoses Diagnosis Prostate cancer metastatic to intrapelvic lymph node documented in this encounter Care Teams Meeting Coordinator Relationship Specialty Start Date End Date Celio Sanders MD [address] [place] [address] PCP - General Internal Medicine 05/19/16 documented as of this encounter
--- OUTSIDE RECORDS SUMMARY | 2023-11-19 09:25 | XMS_ITS | Encounter Summary ---
Author Organization [facility] [place] [address] Care Team Providers Care Clinical Support Associate Name Role Phone Celio Sanders MD Primary Care Provider [phone] Encounter Details Date Type Department Care Team (Late st Contact Info) Description 09/09/2017 Telephone Radiation Oncology at [address] [phone] Alta Rowland RN Social History [...] PM EDT Radiation Oncology Nurse Telephone Note [facility] [place], [place] ----- Message from Ronnie Vazquez MD sent at 09/09/2017 3:01 PM EDT ----- Regarding: RE: Pt looking for refill of Rx Sure - thank you ----- Message ----- From: Alta Muse RN Sent: 09/09/2017 2:52 PM To: Ronnie Vazquez MD, [facility] Rad Onc Nurse Subject: FW: Pt looking [...] needs a refill of his Flomax at [facility]. Thanks, Harjeet Phone call to pt that prescription for Flomax was sent to [facility] pharmacy. documented in this encounter Plan of Treatment Upcoming Encounters Date Type Department Care Team (Late st Contact Info) Description 01/24/2024 2:00 PM EST Office Visit Dermatology at [facility] [address] [place] [address] Prisca Hughes MD [facility] DR PHOEBE [place] [address] documented as of this encounter Visit Diagnoses Diagnosis Malignant neoplasm of prostate documented in this encounter Care Teams Clinical Support Associate Relationship Specialty Start Date End Date Celio Sanders MD [address] [place] [address] PCP - General Internal Medicine 05/19/16 documented as of this encounter
--- OUTSIDE RECORDS SUMMARY | 2023-11-19 09:25 | XMS_ITS | Encounter Summary ---
Author Organization [facility] [place] [address] Care Team Providers Care Biochemistry Technologist Name Role Phone Celio Sanders MD Primary Care Provider [phone] Encounter Details Date Type Department Care Team (Late st Contact Info) Description 10/14/2016 8:30 AM EDT Office Visit Radiation Oncology at [address] [phone] Ronnie Vazquez MD [address] [place] [address] DR RADIATION ONCOLOGY [place], [place] [phone] Cancer of prostate with high recurrence risk (stage T3a or [place] 8-10 or PSA > 20) Social History [...] Note 10/14/16 Ronnie Vazquez MD Radiation Oncology [facility] [phone] (paging winding rack operator) PATIENT IDENTIFICATION NAME: Nain Mckeon DATE [...] 2:00 PM EST Office Visit Dermatology at [facility] [address] [place] [address] Prisca Hughes MD [facility] DR PHOE[facility] [place] [address] documented as of this encounter Visit Diagnoses Diagnosis Cancer of prostate with high recurrence risk (stage T3a or Andre 8-10 or PSA > 20) Malignant neoplasm of prostate documented in this encounter Care Teams Biochemistry Technologist Relationship Specialty Start Date End Date Celio Sanders MD [address] [place] [address] PCP - General Internal Medicine 05/19/16 documented as of this encounter
--- OUTSIDE RECORDS SUMMARY | 2023-11-19 09:25 | XMS_ITS | Encounter Summary ---
Author Organization [facility] [place] [address] Care Team Providers Care Repairer Switchgear Name Role Phone Celio Sanders MD Primary Care Provider [phone] Encounter Details Date Type Department Care Team (Latest Contact Info) Description 03/28/2019 2:09 PM EST - 03/28/2019 11:59 PM EST Hospital Encounter Hematology [place] [phone] Prostate cancer metastatic to intrapelvic lymph node; [...] 2:00 PM EST Office Visit Dermatology at [facility] [address] [place] [address] Prisca Hughes MD [facility] DR [place] [address] documented as of this encounter Procedures Procedure [...] 2:42 PM EST) Neutrophil % 51.5 % [facility] Neutrophil Absolute 3.04 1.70 - 6.10 x10(3)/[facility] Lymph % 34.3 % [facility] Lymphocytes Abs 2.0 0.9 - 3.2 x10(3)/[facility] Monocyte % 9.3 % [facility] Monocyte Abs 0.6 0.3 - 0.9 x10(3)/[facility] Eos % 3.9 % [facility] Eosinophils Abs 0.2 0.0 - 0.4 x10(3)/[facility] Basophil % 0.7 % [facility] Baso Absolute 0.0 0.0 - 0.1 x10(3)/[facility] Immature Gran % 0.30 % [facility] Comment: Immature granulocytes(IG's)percentage and absolute count will include metamyelocytes, myelocytes, and promyelocytes. Blood smears from CBCs yielding IG's will be scanned manually for concordance. If this scan disagrees with the automated IG or if promyelocytes are noted, a manual differential will be performed. Immature Gran Absolute 0.02 0.00 - 0.04 x10(3)/[facility] Blood specimen (specimen) 03/28/2019 2:42 PM EST 03/28/2019 2:55 PM EST Narrative Resulting Agency Comment Spec In Lab Remy Barillas MD HEMATOLOGY ORDERABLE S [facility] [place] [address] * (ABNORMAL) Hemogram (03/28/2019 2:42 PM EST) White Blood Cell 5.9 4.0 - 9.5 x10(3)/ L [facility] Red Blood Cell 4.09(L) 4.58 - 5.54 x10(6)/ L [facility] Hemoglobin 13.0(L) 13.7 - 16.5 gm/dL [facility] Hematocrit 38.7(L) 40.5 - 48.5 % [facility] Mean Cell Volume 94.6(H) 82.9 - 93.1 fL [facility] Mean Cell Hemoglobin 31.8 27.5 - 32.1 pg [facility] Mean Cell Hemoglobin Concentration 33.6 32.0 - 35.7 gm/dL [facility] Platelet 226 145 - 357 x10(3)/mc L [facility] RDW Standard Deviation 43.9 36.0 - 45.0 fL [facility] RDW coefficient of variation 12.7 11.4 - 13.8 % [facility] Mean Platelet Volume 9.3 7.6 - 12.9 fL [facility] NRBC% auto 0.0 % [facility] NRBC Absolute 0.000 0.000 - 0.000 x10(3)/mc L [facility] Blood specimen (specimen) 03/28/2019 2:42 PM EST 03/28/2019 2:55 PM EST Narrative Resulting Agency Comment Spec In Lab Remy Barillas MD HEMATOLOGY ORDERABLE S [facility] [place] [address] * Comprehensive metabolic panel (non-fasting) (03/28/2019 2:42 PM EST) Glucose 119 65 - 199 mg/dL [facility] Comment:Diabetes: >=200 mg/d L plus symptoms Blood Urea Nitrogen 19 10 - 20 mg/dL [facility] Creatinine 1.00 0.80 - 1.50 mg/dL [facility] Sodium 143 135 - 145 mmol/L [facility] Potassium 4.1 3.5 - 5.0 mmol/L [facility] Comment: Please note: ??Patients with WBC >100,000 may have falsely elevated Potassium levels. ??For accurate Potassium quantification in these patients send serum separator tube (gold top) for subsequent determinations. ??Contact the Clinical Chemistry Laboratory if there are any questions. Chloride 105 98 - 107 mmol/L [facility] Carbon Dioxide 29 22 - 31 mmol/L [facility] Anion Gap 9 5 - 15 mmol/L [facility] Calcium 9.0 8.5 - 10.5 mg/dL [facility] Protein, Total 7.2 6.1 - 8.0 gm/dL [facility] Albumin 4.4 3.2 - 5.2 gm/dL [facility] Aspartate Aminotransferase 22 0 - 39 unit/L [facility] Alanine Aminotransferase 26 0 - 55 unit/L [facility] Alkaline Phosphatase 75 40 - 130 unit/L [facility] Bilirubin, Total 0.2 0.2 - 1.3 mg/dL [facility] Est Glomerular Filtration Rate 76 >=60 mL/min/1. 73 m?? [facility] Comment: The eGFR was calculated using the CKD-EPI equation. As with all creatinine based estimates of kidney function, eGFR values calculated with the CKD-EPI equation are not accurate in patients with acute kidney failure, extremes of body mass or the acutely ill. http://[facility]/DHnkf eGFR 88 >=60 mL/min/1. 73 m?? [facility] Comment: The eGFR was calculated using the CKD-EPI equation. As with all creatinine based estimates of kidney function, eGFR values calculated with the CKD-EPI equation are not accurate in patients with acute kidney failure, extremes of body mass or the acutely ill. http://[facility]/DHMCnkf Blood specimen (specimen) 03/28/2019 2:42 PM EST 03/28/2019 2:55 PM EST Narrative Resulting Agency Comment Spec In Lab Remy Barillas MD CHEMISTRY ORDERABLES [facility] [place] [address] * PSA (Ultrasensitive) (03/28/2019 2:42 PM EST) Prostate Specific Antigen (Ultrasensitiv e) <0.01 0.00 - 4.00 ng/mL [facility] Blood specimen (specimen) 03/28/2019 2:42 PM EST 03/28/2019 2:55 PM EST Narrative Resulting Agency Comment Spec In Lab Remy Barillas MD CHEMISTRY ORDERABLES Performing Organization Address [facility] Co de Phone Number [facility] [place] [address] * Research Venipuncture (03/28/2019 2:42 PM EST) Research Venipuncture Drawn [facility] Blood specimen (specimen) 03/28/2019 2:42 PM EST 03/28/2019 3:44 PM EST Narrative Resulting Agency Comment Spec In Lab Tre Walker MD CHEMISTRY ORDERABLES Performing Organization Address [facility] Co de Phone Number [facility] [place] [address] documented in this encounter Visit Diagnoses Diagnosis Prostate cancer metastatic to intrapelvic lymph node Malignant neoplasm of prostate documented in this encounter Care Teams Repairer Switchgear Relationship Specialty Start Date End Date Celio Sanders MD [address] [place] [address] PCP - General Internal Medicine 05/19/16 documented as of this encounter
--- OUTSIDE RECORDS SUMMARY | 2023-11-19 09:25 | XMS_ITS | Encounter Summary ---
Author Organization [facility] [place] [address] Care Team Providers Care Fisheries Enforcement Officer Name Role Phone Celio Sanders MD Primary Care Provider [phone] Reason for Visit * Reason Onset Date Comments Lorna 07/27/2017 Encounter Details Date Type Department Care Team (Late st Contact Info) Description 07/27/2017 Telephone Psychiatry and [place] [phone] Angela Bowens RN Lorna Social History Tobacco [...] treated for metastatic prostate cancer at the [facility] in [facility]. He reports that he has been in fdc for 2 days. This was clarified to be voicemail fdc for 2 days. In talking with the [...] Visit Dermatology at [address] [place] [address] Prisca Hughes MD [facility] DR PHOEBE [place] [address] documented as of this encounter Visit Diagnoses Not on filedocumented in this encounter Care Teams Fisheries Enforcement Officer Relationship Specialty Start Date End Date Celio Sanders MD [address] [place] [address] PCP - General Internal Medicine 05/19/16 documented as of this encounter
--- OUTSIDE RECORDS SUMMARY | 2023-11-19 09:25 | XMS_ITS | Encounter Summary ---
Author Organization [facility] Address [facility] [place] [address] Care Team Providers Care Industrial Gas Fitter Helper Name Role Phone Celio Sanders MD Primary Care Provider [phone] Encounter Details Date Type Department Care Team (Late st Contact Info) Description 10/18/2016 Telephone Radiation Oncology at [address] [address] Alta Rowland RN Social History [...] Radiation Oncology Nurse Telephone Note [facility] [place], [place] Patient calls c/o mild nausea. He [...] at [facility] [address] [place] [address] Prisca Hughes MD [facility] [place] [address] documented as of this encounter Visit Diagnoses Diagnosis Malignant neoplasm of prostate documented in this encounter Care Teams Industrial Gas Fitter Helper Relationship Specialty Start Date End Date Celio Sanders MD [address] [place] [address] PCP - General Internal Medicine 05/19/16 documented as of this encounter
--- OUTSIDE RECORDS SUMMARY | 2023-11-19 09:25 | XMS_ITS | Encounter Summary ---
[place] [address] Care Team Providers Care Sample Carrier Name Role Phone Celio Sanders MD Primary Care Provider [phone] Reason for Visit * Reason Comments Injections Lupron * Treatment/Therapy Plan Authorization (Routine) - Closed Specialty Diagnoses / Procedures Referred By Contac t Referred To Contact Diagnoses Prostate cancer metastatic to intrapelvic lymph node Gael Anderson MD [address] [place] [address] [address] [facility] On[facility] [address] [place] [phone] Referral ID Status Reason Start Date Expiration Date Visits Re quested Visits Authorized [id number] Closed 11/15/2017 11/15/2018 1 1 Encounter Details Date Type Department Care Team (Late st Contact Info) Description 02/09/2019 3:00 PM EST Infusion Hematology Oncology at [address] [address] Prostate cancer metastatic to intrapelvic [...] [facility] [address] [place] [address] Prisca Hughes MD [facility] DR PHOEBE [place] [address] documented as of this encounter Visit Diagnoses [...] Gluteal documented in this encounter Care Teams Sample Carrier Relationship Specialty Start Date End Date Celio Sanders MD [address] [place] [address] PCP - General Internal Medicine 05/19/16 documented as of this encounter
--- OUTSIDE RECORDS SUMMARY | 2023-11-19 09:25 | XMS_ITS | Encounter Summary ---
[place] [address] Care Team Providers Care Field Radio Operator Name Role Phone Celio Sanders MD Primary Care Provider [phone] Reason for Visit * Reason Comments Chemotherapy Lupron * Treatment/Therapy Plan Authorization (Routine) - Closed Specialty Diagnoses / Procedures Referred By Contac t Referred To Contact Diagnoses Prostate cancer metastatic to intrapelvic lymph node Gael Anderson MD [address] [place] [address] [facility] Hem Onc Office [address] [place] [phone] Referral ID Status Reason Start Date Expiration Date Visits Re quested Visits Authorized [id number] Closed 11/15/2017 11/15/2018 1 1 Encounter Details Date Type Department Care Team (Late st Contact Info) Description 08/18/2018 12:00 PM EDT Infusion Hematology Oncology at [address] [phone] Prostate cancer metastatic to intrapelvic [...] 2:00 PM EST Office Visit Dermatology at [facility] [address] [place] [address] Prisca Hughes MD [facility] [address] [place] [address] documented as of this encounter Visit Diagnoses [...] Gluteal documented in this encounter Care Teams Field Radio Operator Relationship Specialty Start Date End Date Celio Sanders MD [address] [place] [address] PCP - General Internal Medicine 05/19/16 documented as of this encounter
--- OUTSIDE RECORDS SUMMARY | 2023-11-19 09:25 | XMS_ITS | Encounter Summary ---
Author Organization [facility] Address [facility] [place] [address] Care Team Providers Care Hand Plug Shaper Name Role Phone Celio Sanders MD Primary Care Provider Reason for Referral * Consultation (Routine) - Closed Specialty Diagnoses / Procedures Referred By Contac t Referred To Contact Hematology and Oncology Diagnoses Malignant neoplasm of prostate Remy Barillas MD [facility] [place] [address] [facility] Hem Onc Office [address] [place] [phone] Referral ID Status Reason Start Date Expiration Date V isits Requested Visits Authorized [id number] Closed Consult, Test & Treat 08/18/2018 08/18/2019 1 1 Encounter Details Date Type Department Care Team (Late st Contact Info) Description 08/18/2018 11:00 AM EDT Office Visit Hematology/Oncology at [address] [address] Remy Barillas MD [facility] [place] [address] Malignant neoplasm of prostate Social History Tobacco [...] to urinate. Soc Hx: , lives in [place], [place]. He goes to [place] from December to June. 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 [employer] Fam Hx: Father with prostate cancer diagnosed [...] 2:00 PM EST Office Visit Dermatology at [facility] [address] [place] [phone] Prisca Hughes MD [facility] [address] [place] [address] Scheduled Referrals Name Type Priority Associated Diagnoses [...] (Ultrasensitiv e) <0.01 0.00 - 4.00 ng/mL [facility] Blood specimen (specimen) 03/28/2019 2:42 PM EST 03/28/2019 2:55 PM EST Narrative Resulting Agency Comment Spec In Lab Remy Barillas MD CHEMISTRY ORDERABLES [facility] [place] [address] * Comprehensive metabolic panel (non-fasting) (03/28/2019 2:42 PM EST) Glucose 119 65 - 199 mg/dL [facility] Comment:Diabetes: >=200 mg/d L plus symptoms Blood Urea Nitrogen 19 10 - 20 mg/dL [facility] Creatinine 1.00 0.80 - 1.50 mg/dL [facility] Sodium 143 135 - 145 mmol/L [facility] Potassium 4.1 3.5 - 5.0 mmol/L [facility] Comment: Please note: ??Patients with WBC >100,000 may have falsely elevated Potassium levels. ??For accurate Potassium quantification in these patients send serum separator tube (gold top) for subsequent determinations. ??Contact the Clinical Chemistry Laboratory if there are any questions. Chloride 105 98 - 107 mmol/L [facility] Carbon Dioxide 29 22 - 31 mmol/L [facility] Anion Gap 9 5 - 15 mmol/L [facility] Calcium 9.0 8.5 - 10.5 mg/dL [facility] Protein, Total 7.2 6.1 - 8.0 gm/dL [facility] Albumin 4.4 3.2 - 5.2 gm/dL [facility] Aspartate Aminotransferase 22 0 - 39 unit/L [facility] Alanine Aminotransferase 26 0 - 55 unit/L [facility] Alkaline Phosphatase 75 40 - 130 unit/L [facility] Bilirubin, Total 0.2 0.2 - 1.3 mg/dL [facility] Est Glomerular Filtration Rate 76 >=60 mL/min/1. 73 m?? [facility] Comment: The eGFR was calculated using the CKD-EPI equation. As with all creatinine based estimates of kidney function, eGFR values calculated with the CKD-EPI equation are not accurate in patients with acute kidney failure, extremes of body mass or the acutely ill. http://[employer]/DHMCnkf eGFR 88 >=60 mL/min/1. 73 m?? [facility] Comment: The eGFR was calculated using the CKD-EPI equation. As with all creatinine based estimates of kidney function, eGFR values calculated with the CKD-EPI equation are not accurate in patients with acute kidney failure, extremes of body mass or the acutely ill. http://[employer]/DHMCnkf Blood specimen (specimen) 03/28/2019 2:42 PM EST 03/28/2019 2:55 PM EST Narrative Resulting Agency Comment Spec In Lab Remy Barillas MD CHEMISTRY ORDERABLES [facility] [place] [address] * SCAN DOC: LAB (08/11/2018 12:00 AM EDT) Narrative 08/11/2018 12:00 AM EDT Ordered by an unspecified provider. Scanning Provider MEDIA MGR SCAN EXT O RDR/RSLT documented in this encounter Visit Diagnoses Diagnosis Malignant neoplasm of prostate documented in this encounter Care Teams Hand Plug Shaper Relationship Specialty Start Date End Date Celio Sanders MD [address] [place] [address] PCP - General Internal Medicine 05/19/16 documented as of this encounter
--- OUTSIDE RECORDS SUMMARY | 2023-11-19 09:25 | XMS_ITS | Encounter Summary ---
Author Organization [facility] [place] [address] Care Team Providers Care Principal Embedded Software Engineer Name Role Phone Celio Sanders MD Primary Care Provider [phone] Reason for Visit * Reason Onset Date Comments Results 04/04/2019 BRCA2 mutation Encounter Details Date Type Department Care Team (Late st Contact Info) Description 04/04/2019 Telephone [place]ematology [place] [phone] [facility] [address] Results (BRCA2 mutation) Social History Tobacco Use [...] Notes * Telephone Encounter - Eden Copeland [facility] - 04/04/2019 4:05 PM EST I [...] 2:00 PM EST Office Visit Dermatology at [facility] [address] [place] [address] Prisca Hughes MD [facility] DR PHOE[address] [place] [address] documented as of this encounter Visit Diagnoses Not on filedocumented in this encounter Care Teams Principal Embedded Software Engineer Relationship Specialty Start Date End Date Celio Sanders MD [address] [place] [address] PCP - General Internal Medicine 05/19/16 documented as of this encounter
--- OUTSIDE RECORDS SUMMARY | 2023-11-19 09:25 | XMS_ITS | Encounter Summary ---
[place] [address] Care Team Providers Care Extrusion Die Corrector Name Role Phone Celio Sanders MD Primary Care Provider [phone] Reason for Visit * Reason Comments Injections Lupron * Treatment/Therapy Plan Authorization (Routine) - Closed Specialty Diagnoses / Procedures Referred By Contac t Referred To Contact Diagnoses Prostate cancer metastatic to intrapelvic lymph node Gael Anderson MD [address] [place] [address] [facility] Hem Onc Office [address] [place] [phone] Referral ID Status Reason Start Date Expiration Date Visits Re quested Visits Authorized [id number] Closed 11/15/2017 11/15/2018 1 1 Encounter Details Date Type Department Care Team (Late st Contact Info) Description 11/16/2018 2:30 PM EDT Infusion Hematology Oncology at [address] [phone] Prostate cancer metastatic to intrapelvic [...] 2:00 PM EST Office Visit Dermatology at [place] [address] [place] [address] Prisca Hughes MD [facility] DR [place] [address] documented as of this encounter Visit Diagnoses [...] Gluteal documented in this encounter Care Teams Extrusion Die Corrector Relationship Specialty Start Date End Date Celio Sanders MD [address] [place] [address] PCP - General Internal Medicine 05/19/16 documented as of this encounter
--- OUTSIDE RECORDS SUMMARY | 2023-11-19 09:25 | XMS_ITS | Encounter Summary ---
Author Organization [facility] [place] [address] Care Team Providers Care Asphalt Dauber Name Role Phone Celio Sanders MD Primary Care Provider Encounter Details Date Type Department Care Team (Late st Contact Info) Description 09/30/2016 12:30 PM EDT Office Visit Radiation Oncology at [address] [phone] Ronnie Vazquez MD [address] [place] [address] DR RADIATION ONCOLOGY [place], [place] [phone] Neoplasm of prostate regional lymph node staging [...] Note 09/30/16 Ronnie Vazquez MD Radiation Oncology [facility] [phone] (paging process equipment operator) PATIENT IDENTIFICATION NAME: Nain Mckeon DATE [...] [facility] [address] [place] [phone] Prisca Hughes MD [facility] DR [address] [place] [address] documented as of this encounter Visit Diagnoses Diagnosis 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 documented in this encounter Care Teams Asphalt Dauber Relationship Specialty Start Date End Date Celio Sanders MD [address] [place] [address] PCP - General Internal Medicine 05/19/16 documented as of this encounter
--- OUTSIDE RECORDS SUMMARY | 2023-11-19 09:25 | XMS_ITS | Encounter Summary ---
Author Organization [facility] [place] [address] Care Team Providers Care Nurse Practitioner Home Assessments Name Role Phone Celio Sanders MD Primary Care Provider [phone] Encounter Details Date Type Department Care Team (Late st Contact Info) Description 11/02/2016 Telephone [place] [phone] Social History Tobacco Use [...] supplement to look for NSF international or FCI seals and advised to hold on during chemotx or if taking any medications which may interact. Will continue to remain available prn. documented in this encounter Plan of Treatment Upcoming Encounters Date Type Department Care Team (Late st Contact Info) Description 01/24/2024 2:00 PM EST Office Visit Dermatology at [facility] [address] [place] [address] Prisca Hughes MD [facility] DR PHOE[place] [address] documented as of this encounter Visit Diagnoses Not on filedocumented in this encounter Care Teams Nurse Practitioner Home Assessments Relationship Specialty Start Date End Date Celio Sanders MD [address] [place] [address] PCP - General Internal Medicine 05/19/16 documented as of this encounter
--- OUTSIDE RECORDS SUMMARY | 2023-11-19 09:25 | XMS_ITS | Encounter Summary ---
Author Organization [facility] [place] [address] Care Team Providers Care Mold Design Engineer Name Role Phone Celio Sanders MD Primary Care Provider [phone] Reason for Visit * Reason Comments Injections Lupron Encounter Details Date Type Department Care Team (Late st Contact Info) Description 11/18/2016 10:30 AM EDT Infusion Hematology Oncology at [address] [phone] Neoplasm of prostate regional lymph node staging [...] 2:00 PM EST Office Visit Dermatology at [facility] [address] [place] [address] Prisca Hughes MD [facility] [address] documented as of this encounter Procedures Procedure [...] Gluteal documented in this encounter Care Teams Mold Design Engineer Relationship Specialty Start Date End Date Celio Sanders MD [address] [place] [address] PCP - General Internal Medicine 05/19/16 documented as of this encounter
--- OUTSIDE RECORDS SUMMARY | 2023-11-19 09:25 | XMS_ITS | Encounter Summary ---
Author Organization [facility] [place] [address] Care Team Providers Care Wrapper Opener Name Role Phone Celio Sanders MD Primary Care Provider [phone] Reason for Referral * Consultation (Routine) - Specialty Diagnoses / Procedures Referred By Contac t Referred To Contact Diagnoses Cancer of prostate with high recurrence risk (stage T3a or [place] 8-10 or PSA > 20) Ronnie Vazquez MD [address] [place] [address] [place] [address] Referral ID Status Reason Start Date Expiration Date V isits Requested Visits Authorized [id number] Consult, Test & Treat 11/19/2016 05/18/2017 1 1 Encounter Details Date Type Department Care Team (Late st Contact Info) Description 11/18/2016 10:00 AM EDT Office Visit Radiation Oncology at [address] [phone] Ronnie Vazquez MD [address] [place] [address] [place] [address] Cancer of prostate with high recurrence risk (stage T3a or [place] 8-10 or PSA > 20) Social History [...] Vazquez MD Radiation Oncology [facility] [phone] (paging fountain operator) PATIENT IDENTIFICATION NAME: Nain Mckeon DATE [...] back to normal. Plans to drive to [place], [place] with his and dog in the [...] from radiotherapy. Plan: He will be in [place] for next few months and would like to establish care with an oncologist there locally. We will contact [facility] ( ) to make a referral for [...] EST Office Visit Dermatology at [facility] [address] [place] [address] Prisca Hughes MD [facility] [address] PHOEE[address] [place] [address] Scheduled Referrals Name Type Priority Associated Diagnoses Orde r Schedule Referral to Radiation Oncology Outpatient Referral Routine Cancer of prostate with high recurrence risk (stage T3a or [place] 8-10 or PSA > 20) Ordered: 11/19/2016 documented as of this encounter Visit Diagnoses Diagnosis Cancer of prostate with high recurrence risk (stage T3a or [place] 8-10 or PSA > 20) Malignant neoplasm of prostate documented in this encounter Care Teams Wrapper Opener Relationship Specialty Start Date End Date Celio Sanders MD [address] [place] [address] PCP - General Internal Medicine 05/19/16 documented as of this encounter
--- OUTSIDE RECORDS SUMMARY | 2023-11-19 09:25 | XMS_ITS | Encounter Summary ---
[place] [address] Care Team Providers Care Mobile Paramedical Examiner Name Role Phone Celio Sanders MD Primary Care Provider [phone] Reason for Visit * Reason Comments Injections Lupron * Treatment/Therapy Plan Authorization (Routine) - Closed Specialty Diagnoses / Procedures Referred By Contac t Referred To Contact Diagnoses Prostate cancer metastatic to intrapelvic lymph node Gael Anderson MD [address] [place] [address] [facility] Hem Onc Office [address] [place] [phone] Referral ID Status Reason Start Date Expiration Date Visits Re quested Visits Authorized [id number] Closed 11/15/2017 11/15/2018 1 1 Encounter Details Date Type Department Care Team (Late st Contact Info) Description 11/15/2017 3:00 PM EDT Infusion Hematology Oncology at [address] [phone] Prostate cancer metastatic to intrapelvic [...] PM EST Office Visit Dermatology at [facility] [address] [place] [place] [address] Prisca Hughes MD [facility] DR PHOEBE [place] [address] documented as of this encounter Visit Diagnoses [...] Gluteal documented in this encounter Care Teams Mobile Paramedical Examiner Relationship Specialty Start Date End Date Celio Sanders MD [address] [place] [address] PCP - General Internal Medicine 05/19/16 documented as of this encounter
--- OUTSIDE RECORDS SUMMARY | 2023-11-19 09:25 | XMS_ITS | Encounter Summary ---
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 Name Role Phone Celio Sanders MD Primary Care Provider [phone] Reason for Referral * Consultation (Routine) - Closed Specialty Diagnoses / Procedures Referred By Contkulwant de la rosa Referred To Contact Hematology and Oncology Diagnoses Cancer of prostate with high recurrence risk (stage T3a or [place] 8-10 or PSA > 20) Ronnie Vazquez MD [address] [place] [address] [place] [address] [facility] Hem Onc Office [address] [place] [phone] Referral ID Status Reason Start Date Expiration Date V isits Requested Visits Authorized [id number] Closed Consult, Test & Treat 10/07/2016 10/07/2017 1 1 Encounter Details Date Type Department Care Team (Late st Contact Info) Description 10/07/2016 10:45 AM EDT Office Visit Radiation Oncology at [address] [phone] Ronnie Vazquez MD [address] [place] [address] [place] [address] Cancer of prostate with high recurrence risk (stage T3a or [place] 8-10 or PSA > 20) Social History [...] Note 10/07/16 Ronnie Vazquez MD Radiation Oncology [facility] 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) PATIENT IDENTIFICATION NAME: Nain Mckeon DATE [...] Office Visit Dermatology at [facility] [address] [place] [address] Prisca Hughes MD [facility] DR PHOE[address] [place] [address] Scheduled Referrals Name Type Priority Associated Diagnoses Order Schedule Referral to Hematology and Oncology Outpatient Referral Routine Cancer of prostate with high recurrence risk (stage T3a or [place] 8-10 or PSA > 20) Ordered: 10/07/2016 documented as of this encounter Visit Diagnoses Diagnosis Cancer of prostate with high recurrence risk (stage T3a or [place] 8-10 or PSA > 20) Malignant neoplasm of prostate documented in this encounter Care Teams Continuous Mining Machine Lode Miner Relationship Specialty Start Date End Date Celio Sanders MD [address] [place] [address] PCP - General Internal Medicine 05/19/16 documented as of this encounter
--- OUTSIDE RECORDS SUMMARY | 2023-11-19 09:25 | XMS_ITS | Encounter Summary ---
Author Organization [facility] Address [facility] [place] [address] Care Team Providers Care Band Leader Name Role Phone Celio Sanders MD Primary Care Provider [phone] Reason for Visit * Auth/Cert Specialty Diagnoses / Procedures Referred By Contac t Referred To Contact Diagnoses Bipolar disorder, current episode manic without psychotic features, moderate BIPOLAR Procedures PSYI Referral ID Status Reason Start Date Expiration Date Visits Re quested Visits Authorized [id number] 1 1 Encounter Details Date Type Department Care Team (Latest Contact Info) Description 08/06/2017 8:04 PM EDT - 08/15/2017 12:39 PM EDT Hospital Encounter [facility] [place] [id number] David Keen MD [facility] [place] [address] Bipolar II disorder Discharge Disposition: Home Social [...] Mojgan Lipscomb Patient Age: 66 y.o. Language: Sierra Leonean Race: White Ethnicity: Not nor Admit date: [...] made the following appointments for you. : [address] [address] Phone: Fax: Ila Hicks APRN: August 23 at 2:30pm Katlyn Brown: September 02 at 1:00pm Mental Health- [facility] [address], [address] [place] [address] Phone: Fax: Dr. David Fleming: August 19 at 12:00pm Inpatient Provider Contact Information: For questions regarding this document (including laboratory or other studies) or issues relating tothis hospitalization, please contact your patient career services coordinator, GRAEME FORD RN, through the [facility] Animal Shelter Clerk . Issues after hours and on weekends will be handled by the psychiatryresident on- call who can be reached through the [facility] Animal Shelter Clerk. Advance Care Plan The patient has an appointed surrogate decision maker: no Name of surrogate decision maker: na The patient has medical advance directives: no The patient has psychiatric advance directives: no All eleven elements of the Transition Record have been reviewed with the patient. Future Appointments and Orders Future Appointments Provider Department Dept Phone 08/23/2017 3:00 PM Gael Anderson MD Hematology/Oncology at [facility] [phone] 08/25/2017 10:30 AM Maria R Mora APRN Radiation Oncology at [facility] [phone] 08/25/2017 11:00 AM STJ INFUSION, ROOM Hematology Oncology at [facility] [phone] Reason for Hospitalization: safety, stabilization and medication management History of Presentation: As per the 08/06/2017 admission H&P: Mojgan is a 66yo male with a history of bipolar disorder and prostate cancer who arrived at [facility] by taxi from [facility] after spending the week in [facility] for manic symptoms and [...] while he and hiswife were wintering in [place], an oncologist recommended that he try the [...] flight of ideas. When they returned from [place], thepatient's drove and she was secretly glad he lost his car keys because of his impulsivity. ?? The patient's went to [place] for a bridal shower, and while the patient was alone he feltscared at home and checked himself into [facility]. He sought voluntary transfer to a psychiatric facility but was unsuccessful and was eventually discharged Tuesday. Tuesday night he was still afraid and paranoid, and after a discussion with his psychiatrist he took a taxi to [facility] to be admitted to out psych unit. [...] Vit Lvls: Lab Results Component Value Date [id number] 744 08/06/2017 SFOLATE >20.0 08/06/2017 UA: No [...] home Primary Care Physician: Celio Sanders MD [phone] Special Physician Instructions: Special Instructions Provided to [...] any other decline in your overall condition. [facility] Emergency Services: [phone] [facility] Central Access Services: [phone] [facility] Main Line: [phone] Activity level: no restrictions from psychiatry Diet: [...] Provider Contact Information: Emergency Services (Crisis Line): [phone] [facility]: [phone] [facility] Main Line: [phone] Click refresh button immediately prior to signing [...] coordinating discharge for this patient and included vejc-jc-bjwggydrrrnpu and exam, explanation of after visit instructions and medications to the patient and necessary caregivers, documentation, and prescription management. documented in this encounter Discharge Instructions * Discharge Instructions* Graeme Ford RN - 08/15/2017 9:59 AM EDT We have made the following appointments for you. : [facility] [address] [place] [address] Phone: Fax: Ila Hicks APRN: August 23 at 2:30pm Katlyn Brown: September 02 at 1:00pm Mental Health- [facility] [address], [address] [place] [address] Phone: Fax: Dr. David Fleming: August 19 at 12:00pm Inpatient Provider Contact Information: For questions regarding this document (including laboratory or other studies) or issues relating tothis hospitalization, please contact your patient career services coordinator, GRAEME FORD RN, through the [facility] Animal Shelter Clerk . Issues after hours and on weekends will be handled by the psychiatryresident on- call who can be reached through the [facility] Animal Shelter Clerk. Advance Care Plan The patient has an [...] Vit Lvls: Lab Results Component Value Date [id number] 744 08/06/2017 SFOLATE >20.0 08/06/2017 UA: No [...] home Primary Care Physician: Celio Sanders MD [phone] Special Physician Instructions: Special Instructions Provided to [...] any other decline in your overall condition. [facility] Emergency Services: [phone] [facility] Central Access Services: [phone] [facility] Main Line: [phone] Activity level: no restrictions from psychiatry Diet: [...] hyperverbal and spontaneous ?? Language: fluent in v[place] citizen ?? Mood: I feel pretty good. ?? [...] functioning ?? Insight: fair ?? Judgment: fair Cecil Suicide Risk Scale (most recently completed): Suicidal [...] INR Thyroid: No results found for: TSH, R8NLPUW, TT4 Lipids and HgbA1C: Lab Results Component Value Date CHLPL 169 08/10/2017 HDL 49 08/10/2017 CHOLHDL 3.4 08/10/2017 LDLCHOL 84 08/10/2017 TRIG 182 08/10/2017 Lab Results Component Value Date HA1C 5.6 08/10/2017 Vit Lvls: No results found for: [id number], SFOLATE UA: No results found for: GLUCOSEU, [...] disorder and prostate cancer who presents to [facility] with a manic episode in the setting [...] coordinating discharge for this patient and included hvmc-al-mqiddcrtvaecg and exam, explanation of after visit instructions [...] goal to rest, relax, go for walk, mu-ism, finish pg. 3-4, watch the beninese open. Plan to invite to all groups. [...] hyperverbal and spontaneous ?? Language: fluent in vatican citizen ?? Mood: Doing better. ?? Affect: bright, [...] functioning ?? Insight: fair ?? Judgment: fair Cecil Suicide Risk Scale (most recently completed): Suicidal [...] INR Thyroid: No results found for: TSH, U2ZZQCV, TT4 Lipids and HgbA1C: Lab Results Component Value Date CHLPL 169 08/10/2017 HDL 49 08/10/2017 CHOLHDL 3.4 08/10/2017 LDLCHOL 84 08/10/2017 TRIG 182 08/10/2017 Lab Results Component Value Date HA1C 5.6 08/10/2017 Vit Lvls: No results found for: VKKEHLQM21, SFOLATE UA: No results found for: GLUCOSEU, [...] disorder and prostate cancer who presents to [facility] with a manic episode in the setting [...] hyperverbal and spontaneous ?? Language: fluent in v[place] citizen ?? Mood: relaxed ?? Affect: constricted ?? [...] functioning ?? Insight: fair ?? Judgment: fair Cecil Suicide Risk Scale (most recently completed): Suicidal [...] Vit Lvls: Lab Results Component Value Date [id number] 744 08/06/2017 SFOLATE >20.0 08/06/2017 UA: Lab [...] disorder and prostate cancer who presents to [facility] with a manic episode in the setting [...] hyperverbal and spontaneous ?? Language: fluent in vatican citizen ?? Mood: Doing better. ?? Affect: expansive [...] functioning ?? Insight: fair ?? Judgment: fair Cecil Suicide Risk Scale (most recently completed): Suicidal [...] Vit Lvls: Lab Results Component Value Date [id number] 744 08/06/2017 SFOLATE >20.0 08/06/2017 UA: Lab [...] disorder and prostate cancer who presents to [facility] with a manic episode in the setting [...] that peer was asking about . When gag writer shared Importance of pt.'s completing patient [...] hyperverbal and spontaneous ?? Language: fluent in vatican citizen ?? Mood: Doing better. I'd like to [...] functioning ?? Insight: fair ?? Judgment: fair Cecil Suicide Risk Scale (most recently completed): Suicidal [...] Vit Lvls: Lab Results Component Value Date [id number] 744 08/06/2017 SFOLATE >20.0 08/06/2017 UA: Lab [...] disorder and prostate cancer who presents to [facility] with a manic episode in the setting [...] Signed By: David Keen MD 08/11/2017 * Graeme Ford RN - 08/11/2017 10:55 AM EDT Telephone call to patient's Yaneth, with patient's permission. Yaneth continues to express concerns about Mojgan's readiness to return home from the hospital though she has not seen or spoken with him since his admission. This gag writer suggested Yaneth visit with Mojgan today to get a better sense of where he is currently at. She agreed to this visit, but only if this gag writer would be present for the entire visit as she has fears that Mojgan will start yelling or swearing at her again. This gag writer agreed to this and will plan [...] 66 year old MWM, who presents at [facility] to address his current manic episode. Please refer to admit note for details. 2. Family Constellation, Pertinent History: Patient is one of 2 children born and raised in family of origin. Parents are , Mother at age 82 and Father at age 83. Sister Valery age 66 lives in [place]. Patient reports that he has not had contact with her for many years. Patient was born and raised in [place] and described childhood as strange (chart notes indicate a dysfunctional childhood). Patientreports that family lived in [place] but spend every weekend at the family farm in [place]. Little to no extended family available or involved. Patient left home at age 16 to attend [employer]. Patient has been to Yaneth age 64 for 45 years, 2 children Doris age 40 in [place] and Edson age 39 [facility]. Patient reports that ongoing conflict with [...] including spiritual support: Dr. Fleming, bere in [facility], practicing Episcopalian and Rastafarian. 6. 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 Language: fluent in vatican citizen ?? Mood: Anxious. ?? Affect: irritable, expansive [...] functioning ?? Insight: limited ?? Judgment: limited Cecil Suicide Risk Scale (most recently completed): Suicidal [...] Vit Lvls: Lab Results Component Value Date [id number] 744 08/06/2017 SFOLATE >20.0 08/06/2017 UA: Lab [...] disorder and prostate cancer who presents to [facility] with a manic episode in the setting [...] hyperverbal and spontaneous ?? Language: fluent in vatican citizen ?? Mood: I need more rest. ?? [...] functioning ?? Insight: limited ?? Judgment: limited Cecil Suicide Risk Scale (most recently completed): Suicidal [...] Vit Lvls: Lab Results Component Value Date [id number] 744 08/06/2017 SFOLATE >20.0 08/06/2017 UA: Lab [...] disorder and prostate cancer who presents to [facility] with a manic episode in the setting [...] recently to 150mg when pt was at [facility]. Dr fleming increased Clonopin [...] resistant prostate cancer (CRPC). Abstract of a wet room worker presented at the 2017 [place], August 09, 2016, [place], [place]. Clinical trial information: [id number]. Thus, it seems feasible to continue it but at the discretion of the managing provider and with close monitoring. I spoke with Dr. Snyder. Mojgan opted for a lower dose of abiraterone due to cost constraints. Mojgan is no longer under his care but will be seen by Dr. Anderson on August 12. However, if Mojgan would like Dr. Snyder to provide recommendations [...] finding difficulty, occasionally loud ?? Language: fluent vatican citizen non profane ?? Mood: Pissed off ?? [...] appropriate ?? Insight: poor ?? 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 Male presents to [facility] with complaint that I am manic. Interval History: (1,1,4) Mojgan is a 66yo male with a history of bipolar disorder and prostate cancer who arrived at [facility] by taxi from [facility] after spending the week in [facility] for manic symptoms and [...] while he and hiswife were wintering in [place], an oncologist recommended that he try the [...] flight of ideas. When they returned from [place], thepatient's drove and she was secretly glad he lost his car keys because of his impulsivity. The patient's went to [place] for a bridal shower, and while the patient was alone he feltscared at home and checked himself into [facility]. He sought voluntary transfer to a psychiatric facility but was unsuccessful and was eventually discharged Tuesday. Tuesday night he was still afraid and paranoid, and after a discussion with his psychiatrist he took a taxi to [facility] to be admitted to out psych unit. [...] disorder Past hospitalization and location: 2003 - [facility] for the depressive part of bipolar disorder [...] Oral Once Graeme Cain DO 150 mg at08/06/17 1652 ??? [...] GI no nausea and no abdominal pain /OIL REFINER (include LMP if applicable) No polyuria and No dysuria MSK No muscle weakness and No myalgias SKIN No itching and No sores NEURO no seizures PSYCH See above. ENDO No temperature intolerance HEME/LYMPH No edema ALL/IMMUNO No symptoms of Sinustis Physical Exam: Vitals ED from 08/05/2017 in Emergency Department [facility] Weight 80.3 kg (177 lb) Height [...] loud and pressured ?? Language: fluent in vatican citizen ?? Mood: better than I was this [...] Negative mcL Appearance UA Clear Clear Spec Carson UA 1.028 1.002 - 1.030 Color UA [...] bipolar disorder and prostate cancer who [facility] with a manic episode in the setting [...] started taking Zytiga and Prednisone. Records from [facility] indicate the patient was [...] and alliance: follows advice of his psychiatrist Cecil Suicide Risk Scale (most recently completed) Suicidal [...] a 66 y.o. patient followed client of [facility] with history of bipolar affective [...] with his psychiatrist, Dr. David fleming at [facility] -Consult heme/onc for guidance [...] ??Volume appropriate for setting. ?? Language: Appropriate, Sierra Leonean-speaking ?? Mood: Great ?? Affect: Lively and [...] Vit Lvls: Lab Results Component Value Date [id number] 744 08/06/2017 SFOLATE >20.0 08/06/2017 UA: No [...] outpatient f/up with new heme onc in [facility] on 08/23. ? #Other medical [...] Outcome: Ongoing (Interventions Implemented as Appropriate) 08/14/17 5401 Coping/Psychosocial Plan Of Care Reviewed With patient [...] peers. He attended groups. He attended the [employer] service in the morning. PLAN MOVING FORWARD: [...] brayan 2-05/14- Patient states he wanted to ojshua in in hospital until Tuesday- Began working [...] ??Volume appropriate for setting. ?? Language: Appropriate, Sierra Leonean-speaking ?? Mood: Feel great ?? Affect: Lively [...] convince her to be a better . Cecil Suicide Risk Scale: Suicide Screening Suicidal Thoughts: [...] Vit Lvls: Lab Results Component Value Date [id number] 744 08/06/2017 SFOLATE >20.0 08/06/2017 UA: No [...] outpatient f/up with new heme onc in [facility] on 08/23. ? #Other medical [...] Appropriate) 08/11/17 1030 Interdisciplinary Rounds/Family Conf Participants egg caser;nursing;patient;social work/services;physician Problem: Manic Behavior/Episode (Adult) Goal: Mood [...] address these concerns at family meeting tomorrow. -Mojgan notes that he is on board with [...] Volume appropriate for setting. ?? Language: Appropriate, Sierra Leonean-speaking ?? Mood: Not good ?? Affect: Non-congruent. [...] is over the hump ?? Judgment: Limited Cecil Suicide Risk Scale: Suicide Screening Suicidal Thoughts: [...] Vit Lvls: Lab Results Component Value Date [id number] 744 08/06/2017 SFOLATE >20.0 08/06/2017 UA: No [...] outpatient f/up with new heme onc in [facility] on 08/23. -Flomax 10mg QHS [...] prosody. Volume appropriate for setting. Language: Appropriate, Sierra Leonean-speaking Mood: Not good Affect: Non-congruent. Seems lively [...] he is over the hump Judgment: Limited Cecil Suicide Risk Scale: Suicide Screening Suicidal Thoughts: [...] Vit Lvls: Lab Results Component Value Date [id number] 744 08/06/2017 SFOLATE >20.0 08/06/2017 UA: No [...] outpatient f/up with new heme onc in [facility] on 08/23. -Flomax 10mg QHS [...] he be able to speak with his production team member who had a phone conversation with his [...] by July 17 when they returned from [place] (drove back across country). -Patient states that [...] prosody. Volume appropriate for setting. Language: Appropriate, Sierra Leonean-speaking Mood: I need to get more rest [...] that thoughts are slowing down. Judgment: Limited Cecil Suicide Risk Scale: Suicide Screening Suicidal Thoughts: [...] Vit Lvls: Lab Results Component Value Date [id number] 744 08/06/2017 SFOLATE >20.0 08/06/2017 UA: Lab [...] outpatient f/up with new heme onc in [facility] on 08/23. #Other medical issues [...] Outcome: Ongoing (Interventions Implemented as Appropriate) 08/08/17 8725 Coping/Psychosocial Plan Of Care Reviewed With patient [...] home and have his dog as a planner. Understands some of his 's concerns and [...] independent Surveillance [facility]continuous indirect monitoring[facility] Patient-specific fall prevention interventions for [...] GOAL OUTCOME EVALUATION: * Initial Assessments - Graeme Ford RN - 08/08/2017 8:09 AM EDT Initial Patient Assessment GRAEME FORD RN reviewed record and discussed patient with Care Team on 08/08/2017. Introduced/reviewed role; services accepted. Mojgan Lipscomb is a 66 y.o. year old male (1950) presenting to [address] [place] [address] for treatment with Bipolar disorder, current episode [...] Current Mental Health Prescriber: David Fleming of [facility] Current Therapist: David Fleming of [facility] PCP: Celio Sanders MD Hospitalizations Within the Past 30 Days: none known PERTINENT INFO FROM H & P: Mojgan is a 66yo male with a history of bipolar disorder and prostate cancer who arrived at [facility] by taxi from [facility] after spending the week in [facility] for manic symptoms and [...] while he and his were wintering in [place], an oncologist recommended that he try the combination of Zytiga and Prednisone for his prostatecancer. Since then he has been acutely manic. ADVANCE DIRECTIVES: Information provided as needed HEALTH /PRESCRIPTION COVERAGE: Current Effective Coverage: Payor/Plan Subscr Sex Relation Sub. Ins. ID Effective Group Num 1. [place]ARE - [place]* MOJGAN LIPSCOMB 1950 Male Self [id number] 08/05/[address] - MOJGAN LIPSCOMB 1950 Male [id number] 05/12/16 [address] Prescription Coverage: Confirmed Preferred Pharmacy: [address] [address] HOME ENVIRONMENT / SOCIAL & FAMILY SUPPORTS/COMMUNITY RESOURCES:(living situation, family constellation, Caregivers, current use & knowledge of community resources, etc.) Extended Emergency Contact Information Primary Emergency Contact: Yaneth Lipscomb Address: [address] [place] [address] [facility] Relation: Spouse PRIMARY CARE PHYSICIAN: Celio Sanders MD [address] / [facility] [address] MENTAL HEALTH PRESCRIBER: Dr. David Fleming Current Decision-Making Capacity: (Level of Alertness/Orientation, dementia/ cognitive deficit, if patient is a minor - assess parent/guardian, etc.) Able to consent to or refuse care. CURRENT PATIENT & FAMILY EDUCATION, COPING NEEDS: (Address patient/family satisfaction with care to date, understanding of current status and plan of care, need for family meeting, need for control systems developer, etc.) Education regarding effective coping skills, medication [...] needed at D/C to [address] [facility] [address]? None anticipated Rehab/SNF: no New community resources referrals needed? Refer back to current outpatient mental health provider Other: PLAN: PCM will continue to monitor progress, follow for continuity of care and assist with transition of care planning while hospitalized. GRAEME FORD RN PAGER: [phone] * Plan of Care - Graeme Ford RN [...] understanding of illness 2 Work with Patient Educational Audiologist to create and implement aftercare plan 3 [...] David Keen MD 08/08/17 NURSING 08/08/17 PATIENT STAFF MIDWIFE Graeme Ford RN 08/08/17 THERAPIST 08/08/17 ASSEMBLY LINE BRAZER LISA Calixto 08/08/17 * Plan of Care [...] and would not take it at all. outbound call center representative made aware. Denies SI/HI. No safety concerns. [...] EVALUATION NOTE: OUTCOME SUMMARY: Pt admitted to [facility] from ED. Pt reports that he had manic symptoms and went to [facility]. He reports thathe had [...] which heightened during their road trip to [place] to meet their son in mid June. [...] 2:00 PM EST Office Visit Dermatology at [facility] [address] [place] [address] Prisca Hughes MD [facility] [address] [place] [address] documented as of this encounter Procedures Procedure [...] Glucose Fasting 101(H) 65 - 99 mg/dL [facility] Comment: ?Fasting* Glucose Interpretive Criteria [...] of Diabetes Mellitus, Position Statement from the [place] [employer]. ??Diabetes Care, Volume 33, Supplement 1, Mar 2009 Blood specimen (specimen) 08/10/2017 10:45 AM EDT 08/10/2017 10:54 AM EDT Narrative Resulting Agency Comment Spec In Lab David Keen MD CHEMISTRY ORDERABLES [facility] [place] [address] * Lipid Panel (08/10/2017 10:45 AM EDT) Cholesterol, Total 169 mg/dL [facility] Comment: Lower Risk: <200 mg/dL Average Risk: 200-239 mg/dL Higher Risk: >ym=243 mg/dL Triglyceride 182 mg/dL [facility] Comment: Average Risk/Lower Risk: <150 mg/dL Borderline High Risk: 150-199 mg/dL High Risk: 200-499 mg/dL Very High Risk: >ho=152 mg/dL HDL Cholesterol 49 mg/dL [facility] Comment: Males: ?? Higher Risk: <40 mg/dL Females: ?? HIgher Risk: <50 mg/dL LDL Cholesterol 84 mg/dL [facility] Comment: Lowest Risk: <100 mg/dL Lower Risk: 100-129 mg/dL Borderline High Risk: 130-159 mg/dL High Risk: 160-189 mg/dL Very High Risk: >no=458 mg/dL Cholesterol/HDL Ratio 3.4 ratio [facility] Lipid Interpretation See Note [facility] Comment: Lipid management should be guided by a patient? s ASCVD risk, goals and preferences. ACC/AHA Guidelines recommend high intensity statin if clinical ASCVD or LDL greater than or equal to 190 mg/dL. http://VideoGenie.com/QAD-NGG-Gfrhqnehk Adults aged 40-75 with LDL 70-189 mg/dL should have their 10 year ASCVD risk estimated with the ACC/AHA ASCVD risk assistant head cashier http://tools.acc.org/OQTEW-Wtdn-Zfmjojocf/ Statin should be discussed if risk greater [...] In Lab David Keen MD CHEMISTRY ORDERABLES [facility] [place] [address] * Hemoglobin A1c (08/10/2017 10:45 AM EDT) Hemoglobin A1c 5.6 4.3 - 5.6 % [facility] Comment: Reference Range: 4.3 - [...] Mellitus, Diabetes Care 2013; 36: Suppl. 1, E87-88 Estimated Average Glucose 114 mg/dL [facility] Comment: eAG [...] into estimated average glucose values. ??Diabetes Care 2008:31(8):1949-2749. Blood specimen (specimen) 08/10/2017 10:45 AM EDT 08/10/2017 10:54 AM EDT Narrative Resulting Agency Comment Spec In Lab David Keen MD CHEMISTRY ORDERABLES Performing Organization Address City/[facility] Co de Phone Number [facility] [place] [address] * EKG 12 Lead (08/07/2017 10:24 AM EDT) Ventricular rate 79 BPM MUSE SYSTEM Atrial Rate 79 BPM MUSE SYSTEM P-R Interval 136 ms MUSE SYSTEM QRS Duration 92 ms MUSE SYSTEM Q-T Interval 376 ms MUSE SYSTEM QTC Calculated (Bezet) 431 ms MUSE SYSTEM Calculated P [place] 44 degrees MUSE SYSTEM Calculated R [place] 35 degrees MUSE SYSTEM Calculated T [place] 29 degrees MUSE SYSTEM INTERPRETATION Normal sinus rhythm Inferior infarct , age undetermined Abnormal ECG When compared with ECG of 11-APR-2003 19:43, Inferior infarct is now Present Confirmed by MD Andres, Aakash Marvin ([id number]) on 08/07/2017 12:19:01 PM MUSE SYSTEM 08/07/2017 10:2 4 AM EDT 08/07/2017 12:19 PM EDT David Keen MD ECG ORDERABLES Performing Organization Address [facility] Co de Phone Number MUSE SYSTEM documented [...] RN) documented in this encounter Care Teams Band Leader Relationship Specialty Start Date End Date Celio Sanders MD [address] [place] [address] PCP - General Internal Medicine 05/19/16 documented as of this encounter
--- OUTSIDE RECORDS SUMMARY | 2023-11-19 09:25 | XMS_ITS | Encounter Summary ---
Author Organization Counts Include [address] [facility] Address [facility] [place] [address] Care Team Providers Care Relocation Commissioner Name Role Phone Celio Sanders MD Primary Care Provider [phone] Encounter Details Date Type Department Care Team (Late st Contact Info) Description 10/15/2016 12:00 PM EDT Infusion Hematology Oncology at [address] [phone] Malignant neoplasm of prostate Social History Tobacco [...] 12:00 PM EDT Radiation Oncology Nurse Note [place], [place] 10/15/16 11:25 AM Patient states that [...] is not relieved after 8 tabs. Call: [phone] [facility] [place] ([facility]) weekend/holidays: call [facility] ask for the pneumatic system conveyor operator Radiation Oncologist He states that he is [...] 2:00 PM EST Office Visit Dermatology at [address] [place] [address] Prisca Hughes MD [facility] [address]OE[address] [place] [address] documented as of this encounter Visit Diagnoses [...] mg documented in this encounter Care Teams Relocation Commissioner Relationship Specialty Start Date End Date Celio Sanders MD [address] [place] [address] PCP - General Internal Medicine 05/19/16 documented as of this encounter
--- OUTSIDE RECORDS SUMMARY | 2023-11-19 09:25 | XMS_ITS | Encounter Summary ---
Author Organization [facility] Address [facility] [place] [address] Care Team Providers Care Transfer Agent Name Role Phone Celio Sanders MD Primary Care Provider [phone] Encounter Details Date Type Department Care Team (Late Contact Info) Description 05/30/2017 Orders Only Radiation Oncology at [address] [phone] Alta Rowland, RN Malignant neoplasm of prostate Social History [...] 2:00 PM EST Office Visit Dermatology at [facility] [address] [place] [address] Prisca Hughes MD [facility] [address] [place] [address] documented as of this encounter Visit Diagnoses Diagnosis Malignant neoplasm of prostate documented in this encounter Care Teams Transfer Agent Relationship Specialty Start Date End Date Celio Sanders MD [address] [place], [place] [address] PCP - General Internal Medicine 05/19/16 documented as of this encounter
--- OUTSIDE RECORDS SUMMARY | 2023-11-19 09:25 | XMS_ITS | Encounter Summary ---
Author Organization [facility] Address [facility] [place] [address] Care Team Providers Care Music Rehabilitation Therapist Name Role Phone Celio Sanders MD Primary Care Provider [phone] Reason for Visit * Reason Comments Prostate Cancer * Consultation (Routine) - Closed Specialty Diagnoses / Procedures Referred By Contac t Referred To Contact Hematology and Oncology Diagnoses Cancer of prostate with high recurrence risk (stage T3a or [place] 8-10 or PSA > 20) Ronnie Vazquez MD [address] [place] [address] [place] [address] Stj Hem Onc Office [address] [place] [phone] Referral ID Status Reason Start Date Expiration Date V isits Requested Visits Authorized [id number] Closed Consult, Test & Treat 10/07/2016 10/07/2017 1 1 Encounter Details Date Type Department Care Team (Late st Contact Info) Description 11/10/2016 12:00 PM EDT Office Visit [place]ematology [place] [address] Harjinder Snyder MD [facility] DR HEMATOLOGY [place] [address] Malignant neoplasm of prostate Social History Tobacco [...] BMI 31.27 kg/m2 Pathology: 05/17/16 Extradepartmental number: ??[id number]; collection date, 04/27/2016. A - Prostatic core needle biopsy, right lateral base: ? 1. Adenocarcinoma, grade group 3, Andre grade 4+3, ?involving 95% of the biopsy core. ? 2. Perineural invasion identified. B - Prostatic core needle biopsy, right medial base: ? 1. Adenocarcinoma, grade group 3, [place] grade 4+3, ?involving 95% of the biopsy [...] medial apex: ? Adenocarcinoma, grade group 3, [place] grade 3+4, ? involving 25% of the [...] Prostate adenocarcinoma, PSA 47.5, Andre 4+4=8/10, Stage [id number]. Treatment: - 05/31/16 Lupron 22.5 and bicalutamide [...] receiving a standard of care treatment with group home ADT. I recommended to continue current regimen. [...] PM EST Office Visit Dermatology at [facility] [address] [place] [address] Prisca Hughes MD [facility] DR [place] [address] Scheduled Referrals Name Type Priority Associated Diagnoses Order Schedule Referral to Hematology and Oncology Outpatient Referral Routine Cancer of prostate with high recurrence risk (stage T3a or [place] 8-10 or PSA > 20) Ordered: 10/07/2016 documented as of this encounter Visit Diagnoses Diagnosis Malignant neoplasm of prostate documented in this encounter Care Teams Music Rehabilitation Therapist Relationship Specialty Start Date End Date Celio Sanders MD [address] [place] [address] PCP - General Internal Medicine 05/19/16 documented as of this encounter
--- OUTSIDE RECORDS SUMMARY | 2023-11-19 09:25 | XMS_ITS | Encounter Summary ---
Author Organization [facility] Address [facility] [place] [address] Care Team Providers Care Shook Machine Operator Name Role Phone Celio Sanders MD Primary Care Provider [phone] Reason for Visit * Reason Comments Results BRCA2 mutation Encounter Details Date Type Department Care Team (Late st Contact Info) Description 05/02/2019 9:30 AM EST Office Visit Hematology [place] [phone] Tre Walker MD [facility] HEMATOLOGY/[place] [address] Eden Copeland, [facility] HEMATOLOGY[place] [address] Prostate cancer metastatic to intrapelvic lymph node; [...] Nain Mckeon was seen by Eden Copeland [facility] and myself in the Familial Cancer Program to receive results from genetic testing. I spent all of 30 minutes in [id number] consultation outlining the test result and its implications. A summary is below and a copy has been sent to Nain. Please be advised that [place] law requires that all health care workers respect the confidentiality of this information and not pass it along to other health care providers, insurance companies, or individualswithout the written permission of the patient. The Familial Cancer Program welcomes any questions about these matters. Our phone number is: [phone]. On 03/28/2019, Nain underwent gene panel analysis based on the personal history of prostate cancer and family history of prostate, breast, pancreatic and possibly ovarian cancer. Following are the results of this test. Result: [employer] Common Hereditary Cancers Panel showed that Nain carries a pathogenic variant (mutation) in BRCA2 specifically c.1929del(p.[id number]). This result is consistent with a diagnosis [...] BRCA2, BRIP1, CDH1, CDK4, CDKN2A (p14ARF), CDKN2A (j15ZFD6d), CHEK2, CTNNA1, DICER1, EPCAM (EPCAM: Deletion/duplication testing [...] the AXIN2 and CTNNA1 genes, specifically c.1531A>T (p.Vqz188Swo) and c.515A>T (p.Oux630Fah), were detected. Interpretation: The most significant consequences of carrying a pathogenic variant in BRCA2 are increased risks forbreast cancer and ovarian cancer in women. For men, the most significant consequence is for prostate cancer so this finding is felt to be related to Nancies cancer. Other cancers associated with [employer] breast cancer in men, pancreatic, and melanoma. [...] information with them. Nain's sons live in [place] and [place]. They can go to the website of [...] the gene with no increased cancer risks. [employer] is continually collecting and analyzing their [...] and mailing address stay updated in the [facility] hospital[facility] system, in order for us to reach [...] in the future, Dr. Ara Mary, a integrated marketing specialist at [facility] [place], is willing to discuss these screening options with Nain. Nain can schedule an appointment with her by reaching her area secretary at [phone]. Prostate Cancer Screening for Nain's sons ?? Prostate cancer screening starting at age 40. If either of them is found to not have the BRCA2 mutation then they can consider screening beginning at age 50 which is the recommendation for men in the general population Skin cancer screening ??? Periodic skin exams Colon cancer screening ?? Periodic colonoscopy screening as recommended by Nain's integrated marketing specialist. We provided Nain with information on an [...] For some, a consultation with a psychologist, long term care social worker, or psychiatrist may be helpful [...] 2:00 PM EST Office Visit Dermatology at [facility] [address] [place] [address] Prisca Hughes MD 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
--- OUTSIDE RECORDS SUMMARY | 2023-11-19 09:25 | XMS_ITS | Encounter Summary ---
Author Organization [facility] Address [facility] [place] [address] Care Team Providers Care Baggage Inspector Name Role Phone Celio Sanders MD Primary Care Provider [phone] Encounter Details Date Type Department Care Team (Late st Contact Info) Description 03/23/2019 Notes Only Hematology [place] [address] Tre Walker MD [facility] DR HEMATOLOGY/[place] [address] Social History Tobacco Use Types Packs/Day Years [...] PM EST Office Visit Dermatology at [facility] [address] [place] [phone] Prisca Hughes MD [facility] DR [place] [address] documented as of this encounter Visit Diagnoses Not on filedocumented in this encounter Care Teams Baggage Inspector Relationship Specialty Start Date End Date Celio Sanders MD [address] [place] [address] PCP - General Internal Medicine 05/19/16 documented as of this encounter
--- OUTSIDE RECORDS SUMMARY | 2023-11-19 09:25 | XMS_ITS | Encounter Summary ---
Author Organization [facility] Address [facility] [place] [address] Care Team Providers Care Trimmer Hand Name Role Phone Celio Sanders MD Primary Care Provider [phone] Reason for Visit * Reason Comments Genetic Evaluation * Consultation (Routine) - Closed Specialty Diagnoses / Procedures Referred By Contkulwant t Referred To Contact Hematology and Oncology Diagnoses Malignant neoplasm of prostate Remy Barillas MD [facility] [place] [address] St Hem Onc Office [address] [place] [phone] Referral ID Status Reason Start Date Expiration Date V isits Requested Visits Authorized [id number] Closed Consult, Test & Treat 08/18/2018 08/18/2019 1 1 Encounter Details Date Type Department Care Team (Late st Contact Info) Description 03/28/2019 1:30 PM EST Office Visit Hematology [place] [address] Eden Copeland, [facility] HEMATOLOGY/[place] [address] Prostate cancer metastatic to intrapelvic lymph node [...] the family. Nain opted for testing with [employer]'s Common Hereditary Cancers Panel, a next generation sequencing panel that simultaneously analyzes 47 genes, including BRCA1 and BRCA2 which could have treatment implications and that contribute to increased risk for cancer. Nain was consented. His blood sample was drawn and sent to [employer]. Testing will take approximately 3 weeks. Nain [...] 2:00 PM EST Office Visit Dermatology at [facility] [address] [place] [address] Prisca Hughes MD [facility] [place] [address] documented as of this encounter Results * Research Venipuncture (03/28/2019 2:42 PM EST) Research Venipuncture Drawn [facility] Blood specimen (specimen) 03/28/2019 2:42 PM EST 03/28/2019 3:44 PM EST Narrative Resulting Agency Comment Spec In Lab Tre Walker MD CHEMISTRY ORDERABLES [facility] [place] [address] documented in this encounter Visit Diagnoses Diagnosis Prostate cancer metastatic to intrapelvic lymph node documented in this encounter Care Teams Trimmer Hand Relationship Specialty Start Date End Date Celio Sanders MD [address] [place] [address] PCP - General Internal Medicine 05/19/16 documented as of this encounter
--- OUTSIDE RECORDS SUMMARY | 2023-11-19 09:25 | XMS_ITS | Encounter Summary ---
Author Organization [facility] Address [facility] [place] Suárez [address] Care Team Providers Care Lead Generation Marketing Manager Name Role Phone Celio Sanders MD Primary Care Provider [phone] Reason for Visit * Reason Comments Injections Lupron Encounter Details Date Type Department Care Team (Late Contact Info) Description 08/23/2017 3:30 PM EDT Infusion Hematology Oncology at [address] [phone] Neoplasm of prostate regional lymph node staging [...] Dermatology at [facility] [address] [place] [address] Prisca Hughes MD [facility] DR [place] [address] documented as of this encounter Visit Diagnoses [...] Gluteal documented in this encounter Care Teams Lead Generation Marketing Manager Relationship Specialty Start Date End Date Celio Sanders MD [address] [place] [address] PCP - General Internal Medicine 05/19/16 documented as of this encounter
--- OUTSIDE RECORDS SUMMARY | 2023-11-19 09:25 | XMS_ITS | Encounter Summary ---
Author Organization [facility] Address [facility] [place] [address] Care Team Providers Care Device Repair Technician Name Role Phone Celio Sanders MD Primary Care Provider [phone] Encounter Details Date Type Department Care Team (Late st Contact Info) Description 02/09/2019 2:30 PM EST Office Visit Hematology/Oncology at [address] [phone] Remy Barillas MD [facility] [place] [address] Dayana Tompkins, RN Malignant neoplasm of prostate [...] 1-2 times/night. Soc Hx: , lives in [place], [place]. He goes to [place] from December to June. 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
--- OUTSIDE RECORDS SUMMARY | 2023-11-19 09:25 | XMS_ITS | Encounter Summary ---
Author Organization [facility] Address [facility] [place] [address] Care Team Providers Care Chief Clinical Dietitian Name Role Phone Celio Sanders MD Primary Care Provider [phone] Encounter Details Date Type Department Care Team (Late Contact Info) Description 06/30/2017 Orders Only Hematology/Oncology at [address] [phone] Harjinder Snyder MD [facility] DR [place] [address] Neoplasm of prostate regional lymph node staging [...] 2:00 PM EST Office Visit Dermatology at [facility] [address] [place] [address] Prisca Hughes MD [facility] DR [place] [address] documented as of this encounter Visit Diagnoses Diagnosis 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 Malignant neoplasm of prostate documented in this encounter Care Teams Chief Clinical Dietitian Relationship Specialty Start Date End Date Celio Sanders MD [address] [place] [id number] PCP - General Internal Medicine 05/19/16 documented as of this encounter
--- OUTSIDE RECORDS SUMMARY | 2023-11-19 09:25 | XMS_ITS | Encounter Summary ---
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 0.27 - 4.20 mlU/ML [facility] Blood specimen (specimen) 08/06/2017 3:10 AM EDT 08/06/2017 3:23 AM EDT Narrative Resulting Agency Comment Spec In Lab Mitra Gaviria MD CHEMISTRY ORDERABLES Performing Organization Address City/[facility]/ZIP Co de Phone Number [facility] [place] [address] * Basic Metabolic Panel (non-fasting) (08/06/2017 3:10 AM EDT) Glucose 95 65 - 199 mg/dL [facility] Comment:Diabetes: >=200 mg/d L plus symptoms Blood Urea Nitrogen 20 10 - 20 mg/dL [facility] Creatinine 0.93 0.80 - 1.50 mg/dL [facility] Sodium 143 135 - 145 mmol/L [facility] Potassium 3.7 3.5 - 5.0 mmol/L [facility] Comment: Please note: ??Patients with WBC >100,000 may have falsely elevated Potassium levels. ??For accurate Potassium quantification in these patients send serum separator tube (gold top) for subsequent determinations. ??Contact the Clinical Chemistry Laboratory if there are any questions. Chloride 100 98 - 107 mmol/L [facility] Carbon Dioxide 31 22 - 31 mmol/L [facility] Anion Gap 12 5 - 15 mmol/L [facility] Calcium 9.5 8.5 - 10.5 mg/dL [facility] Est Glomerular Filtration Rate >60 >=60 [facility] Comment: The reported eGFR should be multiplied by 1.2 for patients. The MDRD is not an appropriate measure of renal function for patients with body mass extremes or in patients with acute kidney failure. http://Talkable/DHnkdep http://Talkable/DHMCnkf Blood specimen (specimen) 08/06/2017 3:10 AM EDT 08/06/2017 3:23 AM EDT Narrative Resulting Agency Comment Spec In Lab Mitra Gaviria MD CHEMISTRY ORDERABLES [facility] [place] [address] documented in this encounter Visit Diagnoses Diagnosis Delirium Other alteration of consciousness Malignant neoplasm of prostate Bipolar II disorder Other bipolar disorders [facility] current use of systemic steroids Encounter for [...] RN) documented in this encounter Care Teams Senior Java Ui Developer Relationship Specialty Start Date End Date Celio Sanders MD [address] [place] [address] PCP - General Internal Medicine 05/19/16 documented as of this encounter
--- OUTSIDE RECORDS SUMMARY | 2023-11-19 09:26 | XMS_ITS | Encounter Summary ---
Author Organization [facility] Address [facility] [place] [address] Care Team Providers Care Farmworker Chicken Farm Name Role Phone Celio Sanders MD Primary Care Provider [phone] Encounter Details Date Type Department Care Team (Late st Contact Info) Description 06/29/2016 1:00 PM EDT Office Visit Radiation Oncology at [address] [phone] [facility] [place] Malignant neoplasm of prostate [...] Time: 08:00 Time of Procedure:~ 8:30 Location: [facility] Why gold coils? You and your doctor [...] ibuprofen ] Prescriptions to get filled: At [facility] Prescription for steroid: to [...] the lorazepam.>>>>> Future Appointments: ?? MRI at [facility] : You will receive separate instructions specifically from [facility] concerning your exact arrival time and what you need to do to prepare for this. Date: 07/14 [facility] will give you the exact arrival time. ?? Your planning session (simulation) will be done the following week at [facility]. [Date: 07/21 ] [Time:arrive at 11:00 ] For proper visualization of prostate, it is required that you have a moderately full bladder. This will require you to arrive 30 minutes before scheduled appointment and drink 2 glasses of water upon arrival. There are no restrictions with eating. How to reach us: [facility] [phone] For weekends and after hours: Call [facility] ask for the pest control service technician radiation oncologist This template was transcribed from [facility] Shared drive: I:\Nursing\\Cold Coils\preparation for cold coil placement documented in this encounter Plan of Treatment Upcoming Encounters Date Type Department Care Team (Late st Contact Info) Description 01/24/2024 2:00 PM EST Office Visit Dermatology at [facility] [address] [place] [address] Prisca Hughes MD [facility] [address] [place] [address] documented as of this encounter Visit Diagnoses Diagnosis Malignant neoplasm of prostate documented in this encounter Care Teams Farmworker Chicken Farm Relationship Specialty Start Date End Date Celio Sanders MD [address] [place] [address] PCP - General Internal Medicine 05/19/16 documented as of this encounter
--- OUTSIDE RECORDS SUMMARY | 2023-11-19 09:26 | XMS_ITS | Encounter Summary ---
[place] [address] Care Team Providers Care Director Of Business Systems Name Role Phone Celio Sanders MD Primary Care Provider [phone] Reason for Visit * Reason Comments Follow-up Encounter Details Date Type Department Care Team (Latest Contact Info) Description 09/03/2016 8:00 AM EDT Clinical Support [place]emat[place] [phone] Dietary counseling Social History [...] - 09/03/2016 8:00 AM EDT [facility] Initial Dietitian Assessment Seen By: Kimberly Cobb, , RD, LD, GYM TEACHER Referred by: Reason for visit: Patient and [...] Dermatology at [facility] [address] [place] [address] Prisca Hughes MD [facility] [address] [address] documented as of this encounter Visit Diagnoses Diagnosis Dietary counseling Dietary surveillance and counseling documented in this encounter Care Teams Director Of Business Systems Relationship Specialty Start Date End Date Celio Sanders MD [address] [place] [address] PCP - General Internal Medicine 05/19/16 documented as of this encounter
--- OUTSIDE RECORDS SUMMARY | 2023-11-19 09:26 | XMS_ITS | Encounter Summary ---
Author Organization [facility] Address [facility] [place] [address] Care Team Providers Care Medical Officer Name Role Phone Celio Sanders MD Primary Care Provider [phone] Encounter Details Date Type Department Care Team (Latest Contact Info) Description 08/03/2016 1:05 PM EDT Procedure visit [place] [address] Matthew Pelaez MD [facility] [place] [address] Neoplasm of prostate regional lymph node staging [...] Upcoming Encounters Date Type Department Care Team ( st Contact Info) Description 01/24/2024 2:00 PM EST Office Visit Dermatology at [facility] [address] [place] [address] Prisca Hughes MD [facility] [place] [address] documented as of this encounter Visit Diagnoses Diagnosis 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 documented in this encounter Care Teams Medical Officer Relationship Specialty Start Date End Date Celio Sanders MD [address] [place] [address] PCP - General Internal Medicine 05/19/16 documented as of this encounter
--- OUTSIDE RECORDS SUMMARY | 2023-11-19 09:26 | XMS_ITS | Encounter Summary ---
Author Organization [facility] [place] [address] Care Team Providers Care Pyrometallurgical Engineer Name Role Phone Celio Sanders MD Primary Care Provider Encounter Details Date Type Department Care Team (Late st Contact Info) Description 05/31/2016 9:00 AM EDT Office Visit Radiation Oncology at [address] [phone] Ronnie Vazquez MD [address] [place] [address] DR RADIATION ONCOLOGY [place], [place] [id number] Cancer of prostate with high recurrence risk (stage T3a or Livingston 8-10 or PSA > 20); Neoplasm of [...] ask you to undergo the MRI at [facility] and a CT simulation scan here [facility], typically 1-2 weeks after the [...] a prostate MRI which we do at [facility], that allows us to better see your [...] within 4-6 weeks of completion radiation. 5. [facility] Complications: These are more worrisome and are [...] for urination). There may be a slow, lobsterman decrease in your sexual function as well, [...] Vazquez MD - 05/31/2016 9:00 AM EDT [facility] Radiation Oncology Established Patient Followup Patient Identification: Nain Mckeon is a 65-year-old man previously seen for a recent diagnosis of high risk (PSA 47, Livingston 4+4, clinical T2b) prostate cancer, with a clinical right internal iliac/obturator lymph node metastasis. For details regarding our initial appointment, please refer to my consultation note dated 05/19/16. Interval History: Since he was last seen, Mr. Mckeon by Dr. Pham of the Urologic Oncology at [facility] on 05/27/16 for the consideration of prostatectomy [...] have offered to facilitate a referral to [place] for consultation regarding this. I discussed that [...] decide to proceed with proton treatments in [place]. At this time, we will go ahead [...] arrange for MRI of the prostate at [facility] after this, then CT planning simulation scan after this. I anticipate should all go as expected, radiotherapy would begin sometime toward the end ofMay. He understands that fiducial marker implantation and therefore the remainder of the timeline as outlined above may be delayed pending his evaluation in [place]. So, in summary: 1. Referral to [facility] for consideration of proton therapy 2. Lupron today, Casodex for 14 days to prevent flare 3. Fiducial marker implantation in 1 month, to be followed by MRI and CT simulation scan 4. Informed consent obtained for radiotherapy to the pelvis and prostate, 44 fractions to be delivered in [facility]. Simulation scheduled for 07/21, anticipate RT [...] at [facility] [address] [place] [address] Prisca Hughes MD [facility] DR [address] [place] [address] documented as of this encounter Procedures Procedure [...] with high recurrence risk (stage T3a or Livingston 8-10 or PSA > 20) Malignant neoplasm of prostate 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 documented in this encounter Care Teams Pyrometallurgical Engineer Relationship Specialty Start Date End Date Celio Sanders MD [address] [place] [address] PCP - General Internal Medicine 05/19/16 documented as of this encounter
--- OUTSIDE RECORDS SUMMARY | 2023-11-19 09:26 | XMS_ITS | Encounter Summary ---
Author Organization [facility] [place] [address] Care Team Providers Care Technical Sales Advisor Name Role Phone Celio Sanders MD Primary Care Provider [phone] Encounter Details Date Type Department Care Team (Late Contact Info) Description 06/03/2016 Telephone Radiation Oncology at [address] [phone] Harjeet Silvestre Social History Tobacco [...] 2:00 PM EST Office Visit Dermatology at [facility] [address] [place] [address] Prisca Hughes MD [facility] DR [address] [address] documented as of this encounter Visit Diagnoses Not on filedocumented in this encounter Care Teams Technical Sales Advisor Relationship Specialty Start Date End Date Celio Sanders MD [address] [place] [address] PCP - General Internal Medicine 05/19/16 documented as of this encounter
--- OUTSIDE RECORDS SUMMARY | 2023-11-19 09:26 | XMS_ITS | Encounter Summary ---
Author Organization [facility] [place] [address] Care Team Providers Care Community Health Promoter Name Role Phone Celio Sanders MD Primary Care Provider Reason for Referral * Diagnostic Test (Routine) - Closed Specialty Diagnoses / Procedures Referred By Contac t Referred To Contact Radiology Diagnoses 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 Procedures MRI Pelvis Soft Tissue (Gi Gu Armored Car Messenger)WO Contrast Matthew Pelaez MD [facility] [place] [address] [place] [address] Referral ID Status Reason Start Date Expiration [...] Procedures MRI Pelvis Soft Tissue (Gi Gu Armored Car Messenger)WO Contrast Matthew Pelaez MD [facility] [place] [address] [place] [address] Referral ID Status Reason Start Date Expiration Date V isits Requested Visits Authorized [id number] Closed Specialty Service Requested 07/09/2016 07/09/2017 1 1 Encounter Details Date Type Department Care Team (Latest Contact Info) Description 08/13/2016 1:41 PM EDT - 08/13/2016 11:59 PM EDT Hospital [place] [address] Matthew Pelaez MD [facility] [place] [address] Neoplasm of prostate regional lymph node staging [...] 2:00 PM EST Office Visit Dermatology at [facility] [address] [place] [address] Prisca Hughes MD [facility] DR [facility] [place] [address] documented as of this encounter Procedures Procedure Name Priority Date/Time Associated Diagnosis Comments MRI PELVIS SOFT TISSUE (GI MARINE INSULATOR) WO CONTRAST Routine 08/13/2016 5:02 PM EDT 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 documented in this encounter Results * MRI Pelvis Soft Tissue (Gi Gu Armored Car Messenger)WO Contrast (08/13/2016 5:02 PM EDT) Anatomical Region [...] EDT EXAMINATION: MRI PELVIS SOFT TISSUE (GI MARINE INSULATOR) WO CONTRAST CLINICAL HISTORY: Prostate cancer for [...] 08/15/2016 EXAMINATION: MRI PELVIS SOFT TISSUE (GI MARINE INSULATOR) WO CONTRAST CLINICAL HISTORY: Prostate cancer for [...] nodes documented in this encounter Care Teams Community Health Promoter Relationship Specialty Start Date End Date Celio Sanders MD [address] [place] [address] PCP - General Internal Medicine 05/19/16 documented as of this encounter
--- OUTSIDE RECORDS SUMMARY | 2023-11-19 09:26 | XMS_ITS | Encounter Summary ---
Author Organization [facility] Address [facility] [place] [address] Care Team Providers Care Transfer Car Operator Name Role Phone Celio Sanders MD Primary Care Provider [phone] Reason for Visit * Consultation (Urgent) - Closed Specialty Diagnoses / Procedures Referred By Tess de la rosa Referred To Contact Urology Diagnoses prostate cancer, new dx Elias Curran MD [address] [place] [address] Nehemiah Pham MD [facility] [place] [address] Referral ID Status Reason Start Date Expiration Date V isits Requested Visits Authorized [id number] Closed Consult, Test & Treat Connection [facility] 05/14/2016 05/14/2017 1 1 Encounter Details Date Type Department Care Team (Late st Contact Info) Description 05/27/2016 3:40 PM EDT Office Visit Hematology [place] [address] Nehemiah Pham MD [facility] DR UROLOGY DEPT. [place], [place] [id number] Malignant neoplasm of prostate Social History Tobacco [...] Curran performed ultrasound-guided prostate biopsy that showed Scurry 4+4 disease in 2 cores and Andre 4+3 disease in 3 additional cores. All disease involved the right side of thegland which was 57 cc in size. In addition perineural invasion was noted. DIAGNOSIS CONSULTATION CASE Extradepartmental number: ??[id number]; collection date, 04/27/2016. A - Prostatic core needle biopsy, right lateral base: ? 1. Adenocarcinoma, grade group 3, Scurry grade 4+3, ?involving 95% of the biopsy core. ? 2. Perineural invasion identified. B - Prostatic core needle biopsy, right medial base: ? 1. Adenocarcinoma, grade group 3, Scurry grade 4+3, ?involving 95% of the biopsy core. ? 2. Perineural invasion identified. C - Prostatic core needle biopsy, right mid lateral: ? Adenocarcinoma, grade group 4, Scurry grade 4+4, ? involving 90% of the biopsy core. D - Prostatic core needle biopsy, right mid medial: ? 1. Adenocarcinoma, grade group 4, Scurry grade 4+4, ?involving 40% of the biopsy core. ? 2. Perineural invasion identified. E - Prostatic core needle biopsy, right lateral apex: ? Benign prostatic tissue. F - Prostatic core needle biopsy, right medial apex: ? Adenocarcinoma, grade group 3, Scurry grade 3+4, ? involving 25% of the [...] and straining with nocturia once nightly. Urinary [id number] = 3. ? Past??Medical??History Past Medical History: [...] 05/12/16) Other prognostic factors: +PNI Reviewed at [facility]: Y ?? Imaging Review: I have personally reviewed the images from the CT of the abdomen and pelvis dated 05/12/2016 findings as per HPI of enlarged prostate with suspicious appearing right internal iliac node. Seed District Sales Manager image is shown below for reference. [...] I recommended that these be done in [facility]. I will send this note to Dr. Curran to request scheduling for these procedures. Also, I will ask Dr. Vazquez to start him ADT and proceed w/ XRT. Mr. Mckeon's questions were answered in detail. documented in this encounter Plan of Treatment Upcoming Encounters Date Type Department Care Team (Late st Contact Info) Description 01/24/2024 2:00 PM EST Office Visit Dermatology at [place] [address] [place] [address] Prisca Hughes MD [facility] [address] [place] [address] documented as of this encounter Visit Diagnoses Diagnosis Malignant neoplasm of prostate documented in this encounter Care Teams Transfer Car Operator Relationship Specialty Start Date End Date Celio Sanders MD [address] [place] [address] PCP - General Internal Medicine 05/19/16 documented as of this encounter
--- OUTSIDE RECORDS SUMMARY | 2023-11-19 09:26 | XMS_ITS | Encounter Summary ---
Author Organization [facility] Address [facility] [place] [address] Care Team Providers Care Shoe Stamper Name Role Phone Celio Sanders MD Primary Care Provider [phone] Reason for Visit * Reason Comments Injections Lupron Encounter Details Date Type Department Care Team (Late st Contact Info) Description 05/31/2016 9:30 AM EDT Infusion Hematology Oncology at [address] [phone] Malignant neoplasm of prostate Social History Tobacco [...] 2:00 PM EST Office Visit Dermatology at [facility] [address] [place] [phone] Prisca Hughes MD [facility] [place] [address] documented as of this encounter Visit Diagnoses [...] Gluteal documented in this encounter Care Teams Shoe Stamper Relationship Specialty Start Date End Date Celio Sanders MD [address] [place] [address] PCP - General Internal Medicine 05/19/16 documented as of this encounter
--- OUTSIDE RECORDS SUMMARY | 2023-11-19 09:26 | XMS_ITS | Encounter Summary ---
Author Organization [facility] Address [facility] [place] [address] Care Team Providers Care Customer Account Specialist Name Role Phone Celio Sanders MD Primary Care Provider [phone] Encounter Details Date Type Department Care Team (Late st Contact Info) Description 07/08/2016 Telephone Radiation Oncology at [address] [address] Alta Rowland RN Social History [...] AM EDT Radiation Oncology Nurse Telephone Note [facility] [place] [place] 07/08/16 called patient to clarify medications [...] week if he has not heard from [facility] for this consult. He expressed appreciation for this call. documented in this encounter Plan of Treatment Upcoming Encounters Date Type Department Care Team (Late st Contact Info) Description 01/24/2024 2:00 PM EST Office Visit Dermatology at [facility] [address] [place] [address] Prisca Hughes MD [facility] [address]OE[address] MUHAMMAD[place] [address] documented as of this encounter Visit Diagnoses Not on filedocumented in this encounter Care Teams Customer Account Specialist Relationship Specialty Start Date End Date Celio Sanders MD [address] [place] [address] PCP - General Internal Medicine 05/19/16 documented as of this encounter
--- OUTSIDE RECORDS SUMMARY | 2023-11-19 09:26 | XMS_ITS | Encounter Summary ---
Author Organization [facility] [place] [address] Care Team Providers Care Furniture Inspector Name Role Phone Angelica Mak MD Primary Care Provider [phone] Encounter Details Date Type Department Care Team (Late Contact Info) Description 05/18/2016 Telephone Radiation Oncology at [address] [address] Harjeet Silvestre Social History [...] Dermatology at [facility] [address] [place] [address] Prisca Hughes MD [facility] [address] [place] [address] documented as of this encounter Visit Diagnoses Not on filedocumented in this encounter Care Teams Furniture Inspector Relationship Specialty Start Date End Date Angelica Mak MD [address] [place] [address] PCP - General 01/27/10 05/18/16 documented as of this encounter
--- OUTSIDE RECORDS SUMMARY | 2023-11-19 09:26 | XMS_ITS | Encounter Summary ---
[place] [address] Care Team Providers Care Merry Go Round Attendant Name Role Phone Celio Sanders MD Primary Care Provider [phone] Encounter Details Date Type Department Care Team (Late Contact Info) Description 08/04/2016 Telephone [place] [phone] Lisa Samuels Social History Tobacco Use Types Packs/Day Years [...] 2:00 PM EST Office Visit Dermatology at [facility] [address] [place] [address] Prisca Hughes MD [facility] [address] [place] [address] documented as of this encounter Visit Diagnoses Not on filedocumented in this encounter Care Teams Merry Go Round Attendant Relationship Specialty Start Date End Date Celio Sanders MD [address] [place] [address] PCP - General Internal Medicine 05/19/16 documented as of this encounter
--- OUTSIDE RECORDS SUMMARY | 2023-11-19 09:26 | XMS_ITS | Encounter Summary ---
Author Organization [facility] Address [facility] [place] [address] Care Team Providers Care Manager Game Name Role Phone Celio Sanders MD Primary Care Provider [phone] Encounter Details Date Type Department Care Team (Late Contact Info) Description 08/04/2016 Orders [place] [address] Matthew Pelaez MD [facility] [place] [address] Neoplasm of prostate regional lymph node staging [...] 2:00 PM EST Office Visit Dermatology at [facility] [address] [place] [address] Prisca Hughes MD [facility] DR PHOE[address] [place] [address] documented as of this encounter Visit Diagnoses Diagnosis 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 documented in this encounter Care Teams Manager Game Relationship Specialty Start Date End Date Celio Sanders MD [address] [place] [address] PCP - General Internal Medicine 05/19/16 documented as of this encounter
--- OUTSIDE RECORDS SUMMARY | 2023-11-19 09:26 | XMS_ITS | Encounter Summary ---
Author Organization [facility] [place] [address] Care Team Providers Care Sandwich Board Carrier Name Role Phone Celio Sanders MD Primary Care Provider [phone] Encounter Details Date Type Department Care Team (Late st Contact Info) Description 09/16/2016 12:00 PM EDT Office Visit Radiation Oncology at [address] [address] Ronnie Vazquez MD [address] [place] [address] RADIATION ONCOLOGY [place], [place] [address] Cancer of prostate with high recurrence risk [...] Note 09/16/16 Ronnie Vazquez MD Radiation Oncology [facility] [phone] (paging carriage operator) PATIENT IDENTIFICATION NAME: Nain Mckeon DATE [...] Office Visit Dermatology at [facility] [address] [place] [place] [address] Prisca Hughes MD [facility] [address] [place] [address] documented as of this encounter Visit Diagnoses Diagnosis Cancer of prostate with high recurrence risk (stage T3a or [place] 8-10 or PSA > 20) Malignant neoplasm of prostate documented in this encounter Care Teams Sandwich Board Carrier Relationship Specialty Start Date End Date Celio Sanders MD [address] [place] [address] PCP - General Internal Medicine 05/19/16 documented as of this encounter
--- OUTSIDE RECORDS SUMMARY | 2023-11-19 09:26 | XMS_ITS | Encounter Summary ---
Author Organization [facility] [place] [address] Care Team Providers Care Ore Dressing Engineer Name Role Phone Celio Sanders MD Primary Care Provider [phone] Encounter Details Date Type Department Care Team (Late st Contact Info) Description 09/23/2016 12:00 PM EDT Office Visit Radiation Oncology at [address] [phone] Ronnie Vazquez MD [address] [place] [address] DR RADIATION ONCOLOGY [place], [place] [phone] Cancer of prostate with high recurrence risk [...] Note 09/23/16 Ronnie Vazquez MD Radiation Oncology [facility] [phone] (paging bulk sealer operator) PATIENT IDENTIFICATION NAME: Nain Mckeon DATE [...] [facility] [address] [place] [address] Prisca Hughes MD [facility] [address] [place] [address] documented as of this encounter Visit Diagnoses Diagnosis Cancer of prostate with high recurrence risk (stage T3a or [place] 8-10 or PSA > 20) Malignant neoplasm of prostate documented in this encounter Care Teams Ore Dressing Engineer Relationship Specialty Start Date End Date Celio Sanders MD [address] [place] [address] PCP - General Internal Medicine 05/19/16 documented as of this encounter
--- OUTSIDE RECORDS SUMMARY | 2023-11-19 09:26 | XMS_ITS | Encounter Summary ---
Author Organization [facility] Address [facility] [place] [address] Care Team Providers Care Line Maintainer Section Name Role Phone Celio Sanders MD Primary Care Provider [phone] Encounter Details Date Type Department Care Team (Late Contact Info) Description 07/15/2016 Telephone Radiation Oncology at [address] [address] Harjeet Silvestre Social History Tobacco [...] 2:00 PM EST Office Visit Dermatology at [facility] [address] [place] [address] Prisca Hughes MD [facility] [address] [place] [address] documented as of this encounter Visit Diagnoses Not on filedocumented in this encounter Care Teams Line Maintainer Section Relationship Specialty Start Date End Date Celio Sanders MD [address] [place] [address] PCP - General Internal Medicine 05/19/16 documented as of this encounter
--- OUTSIDE RECORDS SUMMARY | 2023-11-19 09:26 | XMS_ITS | Encounter Summary ---
Author Organization [facility] [place] [address] Care Team Providers Care Pipe Maker Name Role Phone Angelica Mak MD Primary Care Provider [phone] Encounter Details Date Type Department Care Team (Late st Contact Info) Description 01/25/2011 1:00 PM EST Office Visit Infectious Disease at [facility] [place] [address] Jose Adams RN Foreign travel (Primary Dx) [...] Details: Destination countries (list from first to last):[facility], [facility], [facility]; [facility], [facility] Departure date: 04/28/11 Length of trip: 05/14/2011 [...] or get this done through their primary hospice patient care secretary. Patient advised to call travel clinic if [...] exposure occurs 2. 3. 1. 2. 3. Setswana Encephalitis 1. 2. 3. 1. 2. 3. 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 documented in this encounter Plan of Treatment Upcoming Encounters Date Type Department Care Team (Late st Contact Info) Description 01/24/2024 2:00 PM EST Office Visit Dermatology at [facility] [address] [place] [address] Prisca Hughes MD [facility] DR PHOEBE [place] [address] documented as of this encounter Visit Diagnoses Diagnosis Foreign travel- Primary Other specified conditions influencing health status documented in this encounter Care Teams Pipe Maker Relationship Specialty Start Date End Date Angelica Mak MD [address] [place] [address] PCP - General 01/27/10 05/18/16 documented as of this encounter
--- OUTSIDE RECORDS SUMMARY | 2023-11-19 09:26 | XMS_ITS | Encounter Summary ---
Author Organization [facility] Address [facility] [place] [address] Care Team Providers Care Rotor Blade Installer Name Role Phone Celio Sanders MD Primary Care Provider [phone] Encounter Details Date Type Department Care Team (Late Contact Info) Description 05/28/2016 Telephone Radiation Oncology at [address] [address] Harjeet Silvestre Social History Tobacco [...] * Telephone Encounter - Harjeet Silvestre - 05/28/2016 [...] 2:00 PM EST Office Visit Dermatology at [facility] [address] [place] [address] Prisca Hughes MD [facility] [address] [place] [address] documented as of this encounter Visit Diagnoses Not on filedocumented in this encounter Care Teams Rotor Blade Installer Relationship Specialty Start Date End Date Celio Sanders MD [address] [place] [address] PCP - General Internal Medicine 05/19/16 documented as of this encounter
--- OUTSIDE RECORDS SUMMARY | 2023-11-19 09:26 | XMS_ITS | Encounter Summary ---
Author Organization [facility] Address [facility] [place] [address] Care Team Providers Care Violin Mechanic Name Role Phone Celio Sanders MD Primary Care Provider [phone] Encounter Details Date Type Department Care Team (Late Contact Info) Description 07/27/2016 Telephone Radiation Oncology at [address] [address] Harjeet Silvestre Social History Tobacco [...] PM EST Office Visit Dermatology at [facility] [address] [place] [address] Prisca Hughes MD [facility] [address] [place] [address] documented as of this encounter Visit Diagnoses Not on filedocumented in this encounter Care Teams Violin Mechanic Relationship Specialty Start Date End Date Celio Sanders MD [address] [place] [address] PCP - General Internal Medicine 05/19/16 documented as of this encounter
--- OUTSIDE RECORDS SUMMARY | 2023-11-19 09:26 | XMS_ITS | Encounter Summary ---
Author Organization [facility] Address [facility] [place] [address] Care Team Providers Care Automotive Service Management Teacher Name Role Phone Angelica Mak MD Primary Care Provider [phone] Encounter Details Date Type Department Care Team (Late st Contact Info) Description 05/17/2016 Telephone Radiation Oncology at [address] [phone] Harjeet Silvestre Social History Tobacco [...] [facility] [address] [place] [address] Prisca Hughes MD [facility] [address] [place] [place] [address] documented as of this encounter Visit Diagnoses Not on filedocumented in this encounter Care Teams Automotive Service Management Teacher Relationship Specialty Start Date End Date Angelica Mak MD [address] [place] [address] PCP - General 01/27/10 05/18/16 documented as of this encounter
--- OUTSIDE RECORDS SUMMARY | 2023-11-19 09:26 | XMS_ITS | Encounter Summary ---
Author Organization [facility] Address [facility] [place] [address] Care Team Providers Care Sledger Name Role Phone Celio Sanders MD Primary Care Provider [phone] Encounter Details Date Type Department Care Team (Latest Contact Info) Description 08/03/2016 11:27 AM EDT - 08/03/2016 4:27 PM EDT Hospital En[place] [address] Matthew Pelaez MD [facility] [place] [address] Discharge Disposition: Home Social History Tobacco Use [...] riding on anything that bounces such as environmental engineer, ATV, horse back riding or motorcycle riding [...] Pelaez MD - 08/03/2016 4:27 PM EDT [facility] Operative Note Patient Name: Nain Mckeon : [id number] MR#: [id number] Case Date: 08/03/2016 Surgeon: Surgeon(s) and Role: [...] prostate cancer, PSA 47.5, Andre 4+4=8/10, Stage [id number]. He is planned for EBRT along with ADT. First Lupron injection was 22.5 mg (3-months) on 05/31/16. He originally was seen in [facility] by Dr. Vazquez. He did not [...] The Space(OAR) system was prepared as per bander's recommendations. A needle was then placed trans-perineally [...] 2:00 PM EST Office Visit Dermatology at [facility] [address] [place] [address] Prisca Hughes MD [facility] [address] [place] [address] documented as of this encounter Procedures Procedure [...] Indication (State the indication in Comments field) / Prophylaxis for invasive procedure. 1332 (Given - Provid er: Rmaa Valdez CRNA - Comment: over 30 min) [...] CRNA) documented in this encounter Care Teams Sledger Relationship Specialty Start Date End Date Celio aSnders MD [address] [place] [address] PCP - General Internal Medicine 05/19/16 documented as of this encounter
--- OUTSIDE RECORDS SUMMARY | 2023-11-19 09:26 | XMS_ITS | Encounter Summary ---
Author Organization [facility] [place] [address] Care Team Providers Care Security Screener Name Role Phone Celio Sanders MD Primary Care Provider [phone] Reason for Visit * Consultation (Routine) - Closed Specialty Diagnoses / Procedures Referred By Tess de la rosa Referred To Contact Radiation Oncology Diagnoses Prostate CA Procedures Treatment Options Elias Curran MD [address] [place] [address] Ronnie Vazquez MD [address] [place] [address] [place] [address] Referral ID Status Reason Start Date Expiration Date Visits Re quested Visits Authorized [id number] Closed 05/14/2016 05/14/2017 1 1 Encounter Details Date Type Department Care Team (Late st Contact Info) Description 05/19/2016 1:30 PM EDT Office Visit Radiation Oncology at [address] [phone] Ronnie Vazquez MD [address] [place] [address] [place] [address] Cancer of prostate with high [...] ask you to undergo the MRI at [facility] and a CT simulation scan here University [...] a prostate MRI which we do at [facility], that allows us to better see your [...] within 4-6 weeks of completion radiation. 6. Christian Education Director Complications: These are more worrisome and [...] for urination). There may be a slow, petroleum terminal plant operator decrease in your sexual function as [...] do not hesitate to call me at [phone] with any other questions or concerns you have. IfI am not here, one of our radiation oncology nurses can assist you or help you get in touch with me. A Radiation Oncology doctor is also compliance and control analyst after our normal hours and on weekends for urgent questions or concerns related to radiation treatments that can not wait until normal business hours. To reach the on-call doctor after-hours, just call and have the fabric machine operator page the Radiation Oncologist compliance and control analyst. And, as always, if you experience any [...] injury 7. Uncontrollable bleeding Ronnie Trevizo MD Billing Control Clerkyarn texture machine operator Radiation Oncology [facility] documented in this encounter Progress Notes * [...] na (Yes/No) Is patient coming from a Fdc Facility? (Yes/No) no (If yes, patient needs to be accompanied by a caregiver for entire Exam and transport arrangements.) LEARNING ASSESSMENT REVIEWED: yes ADVANCED DIRECTIVE: PAIN ASSESSMENT: [0] out of 10 *eD-H Adult PCS Flow Sheet if 4 or above SOCIAL ASSESSMENT: See EDH social assessment information entered. Support Systems: live with Yaneth Barriers to treatment: none Referrals/Interventions: adult day care worker on day per routine. RADIATION SPECIFIC TEACHING:Will provide the following information on simulation day [facility] and You Site specific teaching :pelvis PLAN: Per Dr Vazquez's note * Ronnie Vazquez MD - 05/19/2016 9:00 AM EDT Images from the original note were not included. Radiation Oncology Consult [place] [address] Reason for Consultation: at least Group IIB, [...] and straining with nocturia once nightly. Urinary [id number] = 3. A comprehensive 14 point review [...] CHOLECYSTECTOMY, LAPAROSCOPIC ??? PROSTATE BIOPSY Medications 05/19/16 8004 Medication Sig Taking? 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 Estimated travel time by the patient to [facility] is 20 minutes, one-way. Smoking: never Alcohol: [...] [facility]: Y Imaging Review: I have personally reviewed the images from the CT of the abdomen and pelvis dated 05/12/2016 findings as per HPI of enlarged prostate with suspicious appearing right internal iliac node. Pipe Buffer image is shown below for reference. Assessment: Nain Mckeon is a 65-year-old man with at least high risk prostate cancer ([place] 8, PSA 47.5, clinical T2b). He has [...] this visit was spent counseling the patient [id number] in reviewing the workup of his diagnosis, [...] EST Office Visit Dermatology at [facility] [address] [place] [address] [facility] [place] [address] documented as of this encounter Visit Diagnoses Diagnosis Cancer of prostate with high recurrence risk (stage T3a or [place] 8-10 or PSA > 20) Malignant neoplasm of prostate documented in this encounter Care Teams Security Screener Relationship Specialty Start Date End Date Celio Sanders MD [address] [place] [address] PCP - General Internal Medicine 05/19/16 documented as of this encounter
--- OUTSIDE RECORDS SUMMARY | 2023-11-19 09:26 | XMS_ITS | Encounter Summary ---
Author Organization [facility] Address [facility] [place] [address] Care Team Providers Care Textile Slitting Machine Operator Name Role Phone Celio Sanders MD Primary Care Provider [phone] Encounter Details Date Type Department Care Team (Late st Contact Info) Description 07/16/2016 Telephone [place] [phone] Nicky Marcelo Social History Tobacco Use Types [...] Dermatology at [facility] [address] [place] [address] Prisca Hughes MD [facility] [address] [place] [address] documented as of this encounter Visit Diagnoses Not on filedocumented in this encounter Care Teams Textile Slitting Machine Operator Relationship Specialty Start Date End Date Celio Sanders MD [address] [place] [address] PCP - General Internal Medicine 05/19/16 documented as of this encounter
--- OUTSIDE RECORDS SUMMARY | 2023-11-19 09:26 | XMS_ITS | Encounter Summary ---
Author Organization [facility] [place] [address] Care Team Providers Care Personnel Worker Name Role Phone Celio Sanders MD Primary Care Provider [phone] Encounter Details Date Type Department Care Team (Late st Contact Info) Description 07/28/2016 Telephone Radiation Oncology at [address] [phone] Harjeet Silvestre Social History Tobacco [...] encounter Miscellaneous Notes * Telephone Encounter - Hare[employer] Silvestre - 07/29/2016 9:09 AM EDT Nain returned my phone call. She was agreeable [...] at [facility] [address] [place] [address] Prisca Hughes MD [facility] [address] [place] [address] documented as of this encounter Visit Diagnoses Not on filedocumented in this encounter Care Teams Personnel Worker Relationship Specialty Start Date End Date Celio Sanders MD [address] [place] [address] PCP - General Internal Medicine 05/19/16 documented as of this encounter
--- OUTSIDE RECORDS SUMMARY | 2023-11-19 09:26 | XMS_ITS | Encounter Summary ---
Author Organization [facility] Address [facility] [place] [address] Care Team Providers Care Rvda Master Certified Rv Technician Name Role Phone Celio Sanders MD Primary Care Provider Encounter Details Date Type Department Care Team (Late Contact Info) Description 05/17/2016 External [place] [phone] Provider, Scanning Social History Tobacco Use Types [...] Visit Dermatology at [facility] [address] [place] [address] Prisca Hughes MD [facility] [address] [place] [address] documented as of this encounter Procedures Procedure Name Priority Date/Time Associated Diagnosis Comments SURGICAL PATHOLOGY SCAN Routine 05/17/2016 documented in this encounter Results * Scan Doc: Surgical Pathology (05/17/2016) Savanah Sewell MD MEDIA MGR SCAN E XT ORDR/RSLT documented in this encounter Visit Diagnoses Not on filedocumented in this encounter Care Teams Rvda Master Certified Rv Technician Relationship Specialty Start Date End Date Celio Sanders MD [address] [place] [address] PCP - General Internal Medicine 05/19/16 documented as of this encounter
--- OUTSIDE RECORDS SUMMARY | 2023-11-19 09:26 | XMS_ITS | Encounter Summary ---
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 Procedures MRI Pelvis Soft Tissue (Gi Gu Pomology Teacher)WO Contrast Matthew Pelaez MD [facility] [place] [address] [place] [address] Referral ID Status Reason Start Date Expiration Date V isits Requested Visits Authorized [id number] Closed Specialty Service Requested 07/09/2016 07/09/2017 1 1 Encounter Details Date Type Department Care Team (Late st Contact Info) Description 07/09/2016 Orders Only [place] [address] Matthew Pelaez MD [facility] [place] [address] Neoplasm of prostate regional lymph node staging [...] Visit Dermatology at [facility] [address] [place] [address] Prisca Hughes MD [facility] DR PHOEBE [place] [address] documented as of this encounter Results * MRI Pelvis Soft Tissue (Gi Gu Pomology Teacher)WO Contrast (08/13/2016 5:02 PM EDT) Anatomical Region [...] EDT EXAMINATION: MRI PELVIS SOFT TISSUE (GI MACHINED PARTS QUALITY INSPECTOR) WO CONTRAST CLINICAL HISTORY: Prostate cancer [...] 08/15/2016 EXAMINATION: MRI PELVIS SOFT TISSUE (GI MACHINED PARTS QUALITY INSPECTOR) WO CONTRAST CLINICAL HISTORY: Prostate cancer [...] nodes documented in this encounter Care Teams Psychiatric Security Nurse Relationship Specialty Start Date End Date Celio Sanders MD [address] [place] [address] PCP - General Internal Medicine 05/19/16 documented as of this encounter
--- OUTSIDE RECORDS SUMMARY | 2023-11-19 09:26 | XMS_ITS | Encounter Summary ---
Author Organization [facility] Address [facility] [place] [address] Care Team Providers Care Litigation Claim Representative Name Role Phone Celio Sanders MD Primary Care Provider [phone] Encounter Details Date Type Department Care Team (Late st Contact Info) Description 08/26/2016 7:45 AM EDT Office Visit [place] [address] Social History Tobacco Use Types Packs/Day Years [...] 2:00 PM EST Office Visit Dermatology at [facility] [address] [address] Prisca Hughes MD [facility] DR PHOEBE MUHAMMAD[place] [address] documented as of this encounter Visit Diagnoses Not on filedocumented in this encounter Care Teams Litigation Claim Representative Relationship Specialty Start Date End Date Celio Sanders MD [address] [place] [address] PCP - General Internal Medicine 05/19/16 documented as of this encounter
--- OUTSIDE RECORDS SUMMARY | 2023-11-19 09:26 | XMS_ITS | Encounter Summary ---
Author Organization [facility] Address [facility] [place] [address] Care Team Providers Care Group Program Manager Name Role Phone Celio Sanders MD Primary Care Provider [phone] Encounter Details Date Type Department Care Team (Late st Contact Info) Description 08/03/2016 1:32 PM EDT Anesthesia [place] [address] Audie Frances MD [facility] DR [place] [address] Anesthesia Record Procedure Summary Procedure Name Responsible [...] 1201; median cubital vein (antecubital fossa), right; [id number]-[id number] catheter system; 20 gauge, 3/4 in length; josef maria; intradermal injection, tolerated well; no longer indicated, removed per policy/procedure, catheter/device intact; 08/03/16; 1620 08/03/16 1201 by Josfe Maria RN 08/03/16 1620 by Mitali Mann [...] Frances MD - 08/03/2016 5:49 PM EDT [facility] Department of Anesthesiology Post-procedure Note Patient: Nain Mckeon Procedure Summary Date Anesthesia Start Anesthesia Stop Room / Location 08/03/16 1332 1514 [facility] MINOR SURGERY / [facility] MAIN OR Procedure Diagnosis Surgeon Responsible Provider PROSTATE IMPLANT GOLD COIL PROCEDURE (WRVU 13.46) (N/A Perineum) (PROSTATE CA GOLD COIL IMPLANT/ MINOR OR) Matthew Pelaez MD Nguyen, Tung T, MD All Anesthesia Providers: Anesthesiologist: Audie rFances MD TRANSIT DEPARTMENT CLERK: Rama Valdez CRNA Last (1hr) Vitals: BP Temp Pulse Resp SpO2 Patient Location: PACU/[facility] Level of Consciousness: Awake and Alert Pain [...] [facility] [address] [place] [address] Prisca Hughes MD [facility] [place] [address] documented as of this encounter Visit Diagnoses [...] Comments field) / Prophylaxis for invasive procedure. Given 08/03/2016 1:32 PM EDT 500 mg lidocaine (PF) (XYLOCAINE) 100 mg/5 mL (2 %) injection PRN, Starting on Tue08/03/16 at 1341, Until Tu08/03/16 at 1518, Anesthesia Intra-op, Routine Given 08/03/2016 [...] r documented in this encounter Care Teams Group Program Manager Relationship Specialty Start Date End Date Celio Sanders MD [address] [place] [address] PCP - General Internal Medicine 05/19/16 documented as of this encounter
--- OUTSIDE RECORDS SUMMARY | 2023-11-19 09:26 | XMS_ITS | Encounter Summary ---
Author Organization [facility] Address [facility] [place] [address] Care Team Providers Care Adjunct Faculty Name Role Phone Celio Sanders MD Primary Care Provider [phone] Encounter Details Date Type Department Care Team (Late st Contact Info) Description 08/03/2016 1:00 PM EDT - 08/03/2016 2:00 PM EDT Surgery [place] [address] Matthew Pelaez MD [facility] [place] [address] PROSTATE IMPLANT GOLD COIL PROCEDURE (WRVU 13.46) [...] riding on anything that bounces such as circular ripsaw operator, ATV, horse back riding or motorcycle [...] Pelaez MD - 08/03/2016 4:[address] [facility] [place] Note Patient Name: Nain Mckeon : [id number] MR#: [id number] Case Date: 08/03/2016 Surgeon: Surgeon(s) and Role: [...] prostate cancer, PSA 47.5, Andre 4+4=8/10, Stage [id number]. He is planned for EBRT along with ADT. First Lupron injection was 22.5 mg (3-months) on 05/31/16. He originally was seen in [facility] by Dr. Vazquez. He did [...] The Space(OAR) system was prepared as per stripper latex's recommendations. A needle was then placed trans-perineally [...] Dermatology at [facility] [address] [place] [address] Prisca Hughes MD [facility] DR PHOEBE [place] [address] documented as of this encounter Procedures Procedure [...] invasive procedure. 1332 (Given - Provid er: Rama Valdez [...] CRNA) documented in this encounter Care Teams Adjunct Faculty Relationship Specialty Start Date End Date Celio Sanders MD [address] [place] [address] PCP - General Internal Medicine 05/19/16 documented as of this encounter
--- OUTSIDE RECORDS SUMMARY | 2023-11-19 09:26 | XMS_ITS | Encounter Summary ---
Author Organization [facility] [place] [address] Care Team Providers Care Tattoo Artist Name Role Phone Celio Sanders MD Primary Care Provider [phone] Reason for Visit * Reason Comments Simulation Encounter Details Date Type Department Care Team (Late st Contact Info) Description 08/13/2016 12:00 PM EDT Ancillary Appointment [place] [address] Ronnie Vazquez MD [address] [place] [address] [place] [address] Social History Tobacco Use Types Packs/Day Years [...] Note for External Beam Radiation Treatment Planning [facility] Laith Mckeon is a 65 y.o. year [...] likelihood of any short termside effects or group home complications of therapy. I anticipate his prescription [...] 2:00 PM EST Office Visit Dermatology at [place] [address] [place] [address] Prisca Hughes MD [facility] DR PH[place] [address] documented as of this encounter Visit Diagnoses Not on filedocumented in this encounter Care Teams Tattoo Artist Relationship Specialty Start Date End Date Celio Sanders MD [address] [place] [address] PCP - General Internal Medicine 05/19/16 documented as of this encounter
--- OUTSIDE RECORDS SUMMARY | 2023-11-19 09:26 | XMS_ITS | Encounter Summary ---
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; Malignant neoplasm of prostate; Cancer of prostate with high recurrence risk (stage T3a or [place] 8-10 or PSA > 20) Social History [...] Note 08/26/16 Ronnie Vazquez MD Radiation Oncology [facility] [phone] (paging salt machine operator) PATIENT IDENTIFICATION NAME: Nain Mckeon [...] 2:00 PM EST Office Visit Dermatology at [facility] [address] [place] [address] Prisca Hughes MD [facility] DR PHOE[place] [address] documented as of this encounter Visit Diagnoses [...] Gluteal documented in this encounter Care Teams Hide Mill Man Relationship Specialty Start Date End Date Celio Sanders MD [address] [place] [address] PCP - General Internal Medicine 05/19/16 documented as of this encounter
--- OUTSIDE RECORDS SUMMARY | 2023-11-19 09:26 | XMS_ITS | Encounter Summary ---
Author Organization [facility] [place] [address] Care Team Providers Care Supervisor Communications And Signals Name Role Phone Celio Sanders MD Primary Care Provider [phone] Encounter Details Date Type Department Care Team (Late st Contact Info) Description 07/22/2016 9:40 AM EDT Clinical Support Same Day at [facility] [address] Social History Tobacco Use Types Packs/Day Years [...] 2:00 PM EST Office Visit Dermatology at [place] [address] [place] [address] Prisca Hughes MD [facility] [address] [place] [address] documented as of this encounter Visit Diagnoses Not on filedocumented in this encounter Care Teams Supervisor Communications And Signals Relationship Specialty Start Date End Date Celio Sanders MD [address] [place] [address] PCP - General Internal Medicine 05/19/16 documented as of this encounter
--- OUTSIDE RECORDS SUMMARY | 2023-11-19 09:26 | XMS_ITS | Encounter Summary ---
Author Organization [facility] Address [facility] [place] [address] Care Team Providers Care Keyseater Operator Name Role Phone Celio Sanders MD Primary Care Provider [phone] Reason for Visit * Reason Onset Date Comments Medication Refill 09/24/2016 Encounter Details Date Type Department Care Team (Late Contact Info) Description 09/24/2016 Refill Radiation Oncology at [address] [address] Alta Rowland, RN Malignant neoplasm of prostate [...] Dermatology at [facility] [address] [place] [address] Prisca Hughes MD [facility] DR PHOEBE [place] [address] documented as of this encounter Visit Diagnoses Diagnosis Malignant neoplasm of prostate- Primary documented in this encounter Care Teams Keyseater Operator Relationship Specialty Start Date End Date Celio Sanders MD [address] [place] [address] PCP - General Internal Medicine 05/19/16 documented as of this encounter
--- OUTSIDE RECORDS SUMMARY | 2023-11-19 09:26 | XMS_ITS | Encounter Summary ---
Author Organization [facility] [place] [address] Care Team Providers Care Rail Car Repairer Name Role Phone Celio Sanders MD Primary Care Provider Encounter Details Date Type Department Care Team (Late st Contact Info) Description 07/07/2016 8:30 AM EDT Procedure visit Radiation Oncology at [address] [phone] Ronnie Vazquez MD [address] [place] [address] DR RADIATION ONCOLOGY [place], [place] [id number] Neoplasm of prostate regional lymph node staging [...] He comes to clinic accompanied by a commercial front load driver ( ). [ yes ] if [...] having this procedure done under sedation at [facility] by [place] Pelaez. Patient was instructed tostop taking the cipro and dexamethasone since the procedure was not done today. See Dr Vazquez's note for further details. He has the [facility] phone number and verbalized understanding to ask for the car conditioner radiation oncologist if he needs to after [...] undergo fiducial marker placement by Dr. Matthew Pelaez at [facility]. 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
--- OUTSIDE RECORDS SUMMARY | 2023-11-19 09:26 | XMS_ITS | Encounter Summary ---
Author [facility] [place] [address] Care Team Providers Care Lead Electrical Controls Engineer Name Role Phone Celio Sanders MD Primary Care Provider Reason for Visit * Reason Comments On Treatment Visit Encounter Details Date Type Department Care Team (Late st Contact Info) Description 09/10/2016 7:30 AM EDT Office Visit [place] [address] Ronnie Vazquez MD [address] [place] [address] DR RADIATION ONCOLOGY [place], [place] [address] Cancer of prostate with high recurrence risk (stage T3a or [place] 8-10 or PSA > 20) Social History [...] Note 09/10/16 Ronnie Vazquez MD Radiation Oncology [facility] [phone] (paging waste paper hammermill operator) PATIENT IDENTIFICATION NAME: Nain Mckeon DATE [...] 2:00 PM EST Office Visit Dermatology at [place] [address] [place] [address] Prisca Hughes MD [facility] [address] [place] [address] documented as of this encounter Visit Diagnoses Diagnosis Cancer of prostate with high recurrence risk (stage T3a or Andre 8-10 or PSA > 20) Malignant neoplasm of prostate documented in this encounter Care Teams Lead Electrical Controls Engineer Relationship Specialty Start Date End Date Celio Sanders MD [address] [place] [address] PCP - General Internal Medicine 05/19/16 documented as of this encounter
--- OUTSIDE RECORDS SUMMARY | 2023-11-19 09:26 | XMS_ITS | Encounter Summary ---
Author Organization [facility] [place] [address] Care Team Providers Care Industrial Diamond Polisher Name Role Phone Celio Sanders MD Primary Care Provider Reason for Visit * Reason Comments On Treatment Visit Encounter Details Date Type Department Care Team (Late st Contact Info) Description 08/31/2016 7:30 AM EDT Office Visit [place] [address] Ronnie Vazquez MD [address] [place] [address] DR [place] [address] Cancer of prostate with high recurrence risk (stage T3a or [place] 8-10 or PSA > 20); Neoplasm of [...] Note 08/31/16 Ronnie Vazquez MD Radiation Oncology [facility] [phone] (paging selenium plant operator) PATIENT IDENTIFICATION NAME: Nain Mckeon DATE [...] 2:00 PM EST Office Visit Dermatology at [facility] [address] [facility] [place] [address] Prisca Hughes MD [facility] DR PHOE[place] [address] documented as of this encounter Visit Diagnoses Diagnosis Cancer of prostate with high recurrence risk (stage T3a or [place] 8-10 or PSA > 20) Malignant neoplasm of prostate 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
--- OUTSIDE RECORDS SUMMARY | 2023-11-19 09:26 | XMS_ITS | Encounter Summary ---
Author Organization [facility] Address [facility] [place] [address] Care Team Providers Care Suture Gauger Name Role Phone Angelica Mak MD Primary Care Provider [phone] Encounter Details Date Type Department Care Team (Latest Contact Info) Description 05/17/2016 3:39 PM EDT - 05/17/2016 11:59 PM EDT Hospital Encounter Laboratory [facility] [place] [address] Discharge Disposition: Home Social History Tobacco Use [...] EST Office Visit Dermatology at [facility] [address] [place] [address] Prisca Hughes MD [facility] DR PHOEBE [place] [address] documented as of this encounter Procedures Procedure Name Priority Date/Time Associated Diagnosis Comments SURGICAL PATHOLOGY REPORT Routine 05/17/2016 4:06 PM EDT documented in this encounter Results * Surgical Pathology Report (05/17/2016 4:06 PM EDT) Final Diagnosis [id number] ?Location: [facility] The signing pathologist has (i) examined the relevant preparation(s) for the specimen(s) and (ii) rendered or confirmed the diagnosis(es). . ?Surgical Pathology DIAGNOSIS CONSULTATION CASE Extradepartmental number: ??[id number]; collection date, 04/27/2016. A - Prostatic core needle biopsy, right lateral base: ?1. Adenocarcinoma, grade group 3, [place] grade 4+3, ? involving 95% of the biopsy core. ?2. Perineural invasion identified. B - Prostatic core needle biopsy, right medial base: ?1. Adenocarcinoma, grade group 3, [place] grade 4+3, ? involving 95% of the biopsy core. ?2. Perineural invasion identified. C - Prostatic core needle biopsy, right mid lateral: ?Adenocarcinoma, grade group 4, [place] grade 4+4, ?involving 90% of the biopsy core. D - Prostatic core needle biopsy, right mid medial: ?1. Adenocarcinoma, grade group 4, [place] grade 4+4, ? involving 40% of the biopsy core. ?2. Perineural invasion identified. E - Prostatic core needle biopsy, right lateral apex: ?Benign prostatic tissue. F - Prostatic core needle biopsy, right medial apex: ?Adenocarcinoma, grade group 3, Andre grade 3+4, ?involving 25% of the biopsy [...] CONSULTATION CASE A - 24 slide(s) labeled [id number], collection date 04/27/2016. [id number] Report to: [facility] Surgical Pathology Department [facility], [facility], [address]nd Floor [address] [place] [address] ??[id number] SPECIMEN PROCESSING [facility] ([facility]) pathology slide(s) are reviewed. ??Refer to Diagnosis and Specimen Submitted for specific case information. For the full text of the [facility] report(s) please refer to Non-DH Documentation Pathology in the electronic health record (eDH). 05/18/2016 2:17 PM EDT [facility] Consult Case 05/17/2016 4:06 PM EDT 05/17/2016 4:06 PM EDT Savanah Sewell MD PATHOLOGY/CYTOLO GY ORDERABLES [facility] [place] [address] documented in this encounter Visit Diagnoses Not on filedocumented in this encounter Care Teams Suture Gauger Relationship Specialty Start Date End Date Angelica Mak MD [address] [place] [address] PCP - General 01/27/10 05/18/16 documented as of this encounter
--- OUTSIDE RECORDS SUMMARY | 2023-11-19 09:26 | XMS_ITS | Encounter Summary ---
Author Organization [facility] [place] [address] Care Team Providers Care Washer Assembler Name Role Phone Celio Sanders MD Primary Care Provider [phone] Encounter Details Date Type Department Care Team (Late st Contact Info) Description 07/29/2016 Telephone [place] [address] Nicky Marcelo Social History Tobacco Use Types [...] at [facility] [address] [place] [address] Prisca Hughes MD [facility] DR PHOEBE [place] [address] documented as of this encounter Visit Diagnoses Not on filedocumented in this encounter Care Teams Washer Assembler Relationship Specialty Start Date End Date Celio Sanders MD [address] [place] [address] PCP - General Internal Medicine 05/19/16 documented as of this encounter
--- OUTSIDE RECORDS SUMMARY | 2023-11-19 09:26 | XMS_ITS | Encounter Summary ---
Author Organization [facility] Address [facility] [place] [address] Care Team Providers Care Director Mission Name Role Phone Celio Sanders MD Primary Care Provider [phone] Reason for Visit * Reason Comments Follow-up Encounter Details Date Type Department Care Team (Late st Contact Info) Description 07/22/2016 11:00 AM EDT Office [place] [address] Matthew Pelaez MD [facility] [place] [address] Neoplasm of prostate regional lymph node staging [...] Prescriptions to get filled and things to pick and shovel man from the pharmacy: [employer] -These [...] riding on anything that bounces such as ethnology teacher, ATV, horse back riding or motorcycle riding [...] gentleman with high-risk prostate cancer, PSA 47.5, [place] 4+4=8/10, Stage [id number]. He is planned for EBRT along with ADT. First Lupron injection was 22.5 mg (3-months) on 05/31/16. He originally was seen in [facility] by Dr. Vazquez. 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
--- OUTSIDE RECORDS SUMMARY | 2023-11-19 09:26 | XMS_ITS | Encounter Summary ---
Author Organization [facility] Address [facility] [place] [address] Care Team Providers Care Global Safety Officer Name Role Phone Celio Sanders MD Primary Care Provider [phone] Encounter Details Date Type Department Care Team (Late Contact Info) Description 06/09/2016 Telephone Radiation Oncology at [address] [phone] Harjeet Silvestre Social History Tobacco [...] at [facility] [address] [place] [address] Prisca Hughes MD [facility] [address] [place] [address] documented as of this encounter Visit Diagnoses Not on filedocumented in this encounter Care Teams Global Safety Officer Relationship Specialty Start Date End Date Celio Sanders MD [address] [place] [id number] PCP - General Internal Medicine 05/19/16 documented as of this encounter
--- OUTSIDE RECORDS SUMMARY | 2023-11-19 09:26 | XMS_ITS | Encounter Summary ---
Author Organization [facility] Address [facility] [place] [address] Care Team Providers Care Industrial Hire Sales Assistant Name Role Phone Angelica Mak MD Primary Care Provider [phone] Encounter Details Date Type Department Care Team (Latest Contact Info) Description 05/12/2016 - 05/12/2016 11:59 PM EST Hospital Encounter Radiology Library at [facility] [place] [phone] Celio Sanders MD [address] [place] [address] Pain Discharge Disposition: Home Social History Tobacco [...] EST Office Visit Dermatology at [facility] [address] [place] [address] Prisca Hughes MD [facility] [address] [place] [address] documented as of this encounter Procedures Procedure [...] Sanders MD IMG FILM LIBRARY ORD ERABLES [facility] [place] * SCAN DOC: CT SCAN (05/12/2016 12:00 [...] pain documented in this encounter Care Teams Industrial Hire Sales Assistant Relationship Specialty Start Date End Date Angelica Mak MD [address] [place] [address] PCP - General 01/27/10 05/18/16 documented as of this encounter
--- OUTSIDE RECORDS SUMMARY | 2023-11-19 09:26 | XMS_ITS | Encounter Summary ---
Author Organization [facility] Address [facility] [place] [address] Care Team Providers Care Web Marketing Intern Name Role Phone Angelica Mak MD Primary Care Provider [phone] Encounter Details Date Type Department Care Team (Latest Contact Info) Description 03/30/2016 - 03/30/2016 11:59 PM EST Hospital Encounter Radiology Library at [facility] [place] [phone] Celio Sanders MD [address] [place] [address] Pain Discharge Disposition: Home Social History Tobacco [...] 2:00 PM EST Office Visit Dermatology at [address] [address] Prisca Hughes MD [facility] [address] [place] [address] documented as of this encounter Procedures Procedure Name Priority Date/Time Associated Diagnosis Comments FILM LIBRARY STORAGE ONLY NUCLEAR MEDICINE Routine 03/30/2016 12:00 AM EST Pain documented in this encounter Results * Film Library- Storage Only nuclear medicine (03/30/2016 12:00 AM EST) Narrative [facility] - 05/14/2016 9:52 AM EST This exam is for storage only and is auto-finalizing. Celio Sanders MD IMG FILM LIBRARY ORD ERABLES [place], [place] documented in this encounter Visit Diagnoses Diagnosis Pain Generalized pain documented in this encounter Care Teams Web Marketing Intern Relationship Specialty Start Date End Date Angelica Mak MD [address] [place] [address] PCP - General 11/23/10 3/14/17 documented as of this encounter
--- OUTSIDE RECORDS SUMMARY | 2023-11-19 09:26 | XMS_ITS | Encounter Summary ---
Author Organization [facility] Address [facility] [place] [address] Care Team Providers Care Machine Maintenance Name Role Phone Angelica Mak MD Primary Care Provider [phone] Encounter Details Date Type Department Care Team (Latest Contact Info) Description 04/27/2016 - 04/27/2016 11:59 PM EST Hospital Encounter Radiology Library at [facility] [place] [phone] Celio Sanders MD [address] [place] [address] Pain Discharge Disposition: Home Social History Tobacco [...] 2:00 PM EST Office Visit Dermatology at [address] [address] Prisca Hughes MD [facility] [address] [place] [address] documented as of this encounter Procedures Procedure Name Priority Date/Time Associated Diagnosis Comments FILM LIBRARY STORAGE ONLY ULTRASOUND STUDY Routine 04/27/2016 12:00 AM EST Pain documented in this encounter Results * Film Library- Storage Only Ultrasound Study (04/27/2016 12:00 AM EST) Narrative [facility] - 05/14/2016 9:55 AM EST This exam is for storage only and is auto-finalizing. Celio Sanders MD IMG FILM LIBRARY ORD ERABLES [place], [place] documented in this encounter Visit Diagnoses Diagnosis Pain Generalized pain documented in this encounter Care Teams Machine Maintenance Relationship Specialty Start Date End Date Angelica Mak MD [address] [place] [address] PCP - General 11/23/10 3/14/17 documented as of this encounter
--- OUTSIDE RECORDS SUMMARY | 2023-11-19 09:26 | XMS_ITS | Encounter Summary ---
Author Organization [facility] [place] [address] Care Team Providers Care Machine Shop Specialist Name Role Phone Celio Sanders MD Primary Care Provider [phone] Encounter Details Date Type Department Care Team (Late st Contact Info) Description 09/21/2016 Telephone Radiation Oncology at [address] [phone] Alat Rowland RN Social History Tobacco Use Types [...] PM EDT Radiation Oncology Nurse Telephone Note [facility] [place] [place] Patient has received 19FXs, 3420 cGy [...] [facility] [address] [place] [address] Prisca Hughes MD [facility] [address] [place] [address] documented as of this encounter Visit Diagnoses Not on filedocumented in this encounter Care Teams Machine Shop Specialist Relationship Specialty Start Date End Date Celio Sanders MD [address] [place] [address] PCP - General Internal Medicine 05/19/16 documented as of this encounter
--- NOTE | 2023-11-19 09:28 | ED.GENADUL_ITS ---
Discharge Plan Disposition Patient Disposition: Home Condition: Stable Discharge Details Clinical Impression: Acute urinary retention, Bipolar disorder, manic, Prediabetes, Prostate cancer, Neuroleptic-induced tardive dyskinesia, Hypothyroidism, Hyperlipidemia, Drug- induced tremor Primary Care Provider: Dewayne Mckinley ED Provider: Melissa Miguel Home Meds and New Rx's Prescriptions: No Action quetiapine [Seroquel] 25 mg tablet 25 mg PO HS L-Carnosine 500 mg capsule 500 mg PO .daily' lamotrigine 100 mg tablet 100 mg PO BID duloxetine [Cymbalta] 60 mg capsule,delayed release(DR/EC) 30 mg PO BID multivitamin Tablet 1 tab PO DAILY melatonin 5 mg tablet 10 mg PO HS PRN turmeric-turmeric root extract 450-50 mg capsule 1 cap PO DAILY tamsulosin 0.4 mg capsule 0.8 mg PO DAILY Qty: 180 4RF pravastatin 20 mg tablet 40 mg PO DAILY acetaminophen 500 mg tablet 500 mg PO Q6H PRN (Reason: pain) Qty: 60 2RF ibuprofen 600 mg tablet 600 mg PO TID PRN (Reason: pain) Qty: 60 0RF quetiapine 400 mg tablet 400 mg PO 1XD Patient Comments: TAKE ONE TABLET BY MOUTH AT BEDTIME WITH 50MG quetiapine 50 mg tablet 50 mg PO 1XD Patient Comments: TAKE TWO TABLETS BY MOUTH AT BEDTIME INCREASE DOSE IN 30 DAYS levothyroxine 75 MCG tablet 75 mcg PO DAILY Qty: 4 0RF Discharge Instructions Instructions: Alvarez Catheter, Urinary Retention (DC) Additional Instructions: You were seen in the emergency department today for evaluation of urinary frequency and were found to have urinary retention, likely due to a large prostate. You had a catheter placed, had laboratory studies that were reassuring, and do not have any evidence of urinary infection. Please continue all of your home medications and follow-up with your outpatient providers including your primary care doctor as well as your urologist. Thank you for allowing us to be part of your care. HPI General Mode of arrival: ambulatory . Date/Time Provider Initiated Documentation: 11/19/23 09:07 . Limitations to Documentation: no limitations . Information obtained by: patient, family and old records reviewed . HPI Narrative: HPI: This is a 73-year-old male patient with a past medical history significant for prostate cancer status post radiation, currently in remission, history of bipolar disorder, hypothyroidism, hyperlipidemia, presenting for evaluation of urinary urgency and frequency. The patient reports that he has noticed for the last 3 nights some increased nocturia, feels that he has to get up with a sense of urgency but sometimes will not pass any urine despite attempts. He has been followed by the urology clinic and his outpatient providers, who recommended optimizing his bowel regimen to ensure no comorbid constipation. The patient reports that he has been drinking lots of water, taking MiraLAX and prunes, and passed a normal stool this morning. He reports that he has urinated twice since awakening this morning, and feels that he sometimes has some resid ual urine in the bladder. The patient has not had any fevers or chills, nausea or vomiting, flank pain, abdominal pain, or hematuria. He does endorse skin itching, and has been taking nighttime Benadryl to of the last 3 nights for management of the symptoms, states that he cannot think of any new allergic or contact dermatitis exposures such as soaps, lotions, detergents. Exam: Gen: Awake and alert, in no apparent distress HEENT: Non-icteric sclera Neck: Supple Lungs: No apparent respiratory distress, normal respiratory effort. CV: Appears well perfused, strong distal pulses Abdomen: Non-distended, soft, nontender, postsurgical changes in the suprapubic region well-healed, firm to palpation over the region of scar tissue. No CVA tenderness MSK: Moves 4 extremities without apparent limitation in ROM Skin: Visualized skin without rashes, cyanosis. Neuro: Normal Gait, no obvious focal deficits or facial asymmetry. Speaks in full, clear sentences. Psych: Appropriate for situation. MDM: This is a 73-year-old male patient presenting for evaluation of nocturia, urgency, and incomplete emptying. My differential includes but is not limited to urinary tract infection including cystitis and pyelonephritis. I certainly considered prostate abnormalities, including urinary outlet obstruction. I considered intra prostatic and intra bladder masses and malignancies, kidney injury, electrolyte derangement. The urinary changes could certainly be due to in some amount to his recent use of Benadryl/anticholinergic effect. The patient reassuringly has no abdominal tenderness, obstipation, or nausea/vomiting to significantly increase my concern for bowel obstruction or other severe intra-abdominal pathology. Postvoid residual 77, review of prior notes revealed that the patient has had a postvoid residual around 60 in the clinic. I will obtain urinalysis, and laboratory studies to include CBC, CMP. ED Course: I independently interpreted the laboratory studies, which show no significant leukocytosis, new anemia, or thrombocytopenia. The chemistry panel is without evidence of electrolyte abnormality, new kidney dysfunction, or liver injury. The patient does have a BUN to creatinine ratio greater than 20-1, which has been consistent on prior lab checks. The urinalysis is without hematuria or evidence of infection. On reassessment the patient continues to have urinary frequency, endorses rectal urgency, and while his abdominal examination is benign he has not had recent CT imaging of his abdomen, and so we elected to proceed with CT imaging. I independently interpreted the patient's CT, which does show an over distended urinary bladder, concerning for urinary retention with overflow incontinence/urgency, likely due to prostate abnormalities given the lack of visible bladder/urethral stones. For this reason a Alvarez catheter was placed, and the patient was educated on its use. He will follow-up with his outpatient providers, which include his primary care provider as well as the urology clinic. At this time, the patient has had a full medical evaluation and is safe for discharge to home. They are hemodynamically stable, ambulatory, and tolerating PO. They are understanding of the follow-up plan and return precautions. They left our facility without incident. Melissa Miguel MD Related Data Home Medications ?Medication ?Instructions ?Recorded ?Confirmed levothyroxine 75 mcg tablet 75 mcg PO DAILY #4 tabs 08/04/17 11/19/23 pravastatin 20 mg tablet 40 mg PO DAILY 01/25/19 11/19/23 lamotrigine 100 mg tablet 100 mg PO BID 07/29/20 11/19/23 duloxetine 60 mg capsule,delayed 30 mg PO BID 09/15/21 11/19/23 release (Cymbalta) melatonin 5 mg tablet 10 mg PO HS PRN 02/02/22 11/19/23 multivitamin 1 tab PO DAILY 02/02/22 11/19/23 turmeric 450 mg-turmeric root 1 cap PO DAILY 02/02/22 11/19/23 extract 50 mg capsule acetaminophen 500 mg tablet 500 mg PO Q6H PRN pain #60 tabs 02/10/22 11/19/23 ibuprofen 600 mg tablet 600 mg PO TID PRN pain #60 tabs 02/10/22 11/19/23 quetiapine 25 mg tablet (Seroquel) 25 mg PO HS 03/26/22 11/19/23 quetiapine 400 mg tablet 400 mg PO 1XD 04/01/23 11/19/23 quetiapine 50 mg tablet 50 mg PO 1XD 04/01/23 11/19/23 tamsulosin 0.4 mg capsule 0.8 mg (2 x 0.4 mg) PO DAILY #180 07/26/23 11/19/23 caps carnosine 500 mg capsule 500 mg PO .daily' 11/09/23 11/19/23 (L-Carnosine) Previous Rx's ?Medication ?Instructions ?Recorded levothyroxine 75 mcg tablet 75 mcg PO DAILY #4 tabs 08/04/17 acetaminophen 500 mg tablet 500 mg PO Q6H PRN pain #60 tabs 02/10/22 ibuprofen 600 mg tablet 600 mg PO TID PRN pain #60 tabs 02/10/22 tamsulosin 0.4 mg capsule 0.8 mg (2 x 0.4 mg) PO DAILY #180 07/26/23 caps Allergies Allergy/AdvReac Type Severity Reaction Status Date / Time No Known Allergies Allergy Verified 11/19/23 09:12 General Stated Complaint: Urinary ASHWIN: 3 Course Vital Signs Vital signs: Vital Signs Temperature 36.5 C 11/19/23 09:07 Pulse 93 H 11/19/23 09:07 Respiratory Rate 17 11/19/23 09:07 Blood Pressure 195/94 H 11/19/23 09:07 Pulse Oximetry 97 11/19/23 09:07 Temperature 36.5 C 11/19/23 09:12 Temperature Source Oral 11/19/23 09:12 Pulse 93 H 11/19/23 09:12 Respiratory Rate 17 11/19/23 09:12 Respiratory Effort Normal 11/19/23 09:11 Blood Pressure 195/94 H 11/19/23 09:12 Blood Pressure Position Sitting 11/19/23 09:12 Pulse Oximetry 97 11/19/23 09:12 Oxygen Delivery Method Room Air 11/19/23 09:12 Oxygen Flow Rate 0 11/19/23 09:12 Pain Level 6 11/19/23 09:12 Medical Decision Making Quality:SDOH Health Related Social Needs: No Data to Display PFSH All Active Problems (Updated 11/19/23 @ 12:03 by Melissa Miguel MD) Acute urinary retention (Acute) Right lateral epicondylitis (Acute) Left carpal tunnel syndrome (Acute) Intra-articular fracture of distal end of radius with volar angulation (Acute) Fracture of left distal radius (Acute) Neuroleptic-induced tardive dyskinesia (Acute) BRCA2 gene mutation positive (Acute) Prediabetes (Acute) Family history of colon cancer (Acute) Major depression (Chronic) Suicide ideation (Acute) Bipolar disorder, manic (Acute) Prostate cancer (Chronic) Hyperlipidemia (Chronic) Hypothyroidism (Chronic) Memory loss (Acute) Drug-induced tremor (Acute) Discharge planning issues (Acute) Medical History Psoriasis Surgical History History of colonoscopy (~07/2013) S/P appendectomy S/P cholecystectomy S/P tonsillectomy Family History Father Alzheimer disease Prostate cancer Anxiety Mother Colon cancer Heart disease Social History Smoking/Tobacco Use Status: Never Smoking risk assessment performed?: Yes Alcohol Intake: current Alcohol Intake frequency: holidays/special occasions only Drug use: Never Substance use type: does not use Household members: spouse Housing: house Number of Children: 2 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
[2023-11-19 09:38] LABS: Bilirubin Negative (Negative); Blood Negative (Negative); Clarity Clear (Clear); Glucose Negative (Negative); Ketones Negative (Negative); Leukocyte Esterase Negative (Negative); Nitrite Negative (Negative); Specific Gravity 1.015 (1.005-1.025); Urobilinogen 0.2 mg/dL (Up to 0.2)
[2023-11-19 09:39] LABS: Abs Immature Grans 0.05 10^3/uL (0.0-0.06); Absolute Basophil Count 0.04 10^3/uL (0.0-0.2); Absolute Eosinophil Count 0.22 10^3/uL (0.0-0.7); Absolute Lymphocyte Count 1.91 10^3/uL (1.2-3.4); Absolute Monocyte Count 0.84 10^3/uL (0.1-0.8); Absolute Neutrophil Count 5.63 10^3/uL (1.2-6.7); Basophils % 0.5 %; Eosinophils % 2.5 %; HCT 36.2 % (40.0-50.0); HGB 12.1 g/dL (13.5-17.5); Immature Grans % 0.6 %; MCH 31.3 pg (27.0-33.0); MCHC 33.4 % (32.0-36.0); MCV 94 fL (80-95); MPV 8.3 fL (8.0-11.0); Monocytes % 9.7 %; Neutrophils % 64.7 %; Platelet Count 339 10^3/uL (130-400); RBC 3.86 10^6/uL (4.36-5.78); RDW 12.7 % (11.8-14.1); RDW-SD 43.8 fL; WBC 8.69 10^3/uL (4.4-10.8)
[2023-11-19 09:53] LABS: ALT 44 U/L (16-63); AST 36 U/L (15-37); Albumin 3.6 g/dL (3.4-5.0); Alkaline Phosphatase 105 U/L (46-116); Anion Gap 8.2 mmol/L (3-11); BUN 23 mg/dL (7-18); Bilirubin, Total 0.37 mg/dL (0.2-1.0); CO2 27.8 mmol/L (21.0-32.0); Calcium 9.4 mg/dL (8.5-10.1); Chloride 106 mmol/L (98-107); Estimated GFR 78.49 (mL/min/1.73m2); Glucose 133 mg/dL (74-106); Sodium 142 mmol/L (136-145)
--- NOTE | 2023-11-19 10:00 | DI.CT_ITS ---
Exam(s) CT ABDOMEN PELVIS W EXAM: CT ABDOMEN PELVIS W CLINICAL HISTORY: Urinary frequency, rectal urgency, hx prostate ca. TECHNIQUE: Imaging Protocol: Axial computed tomography images with coronal and sagittal reformatted images were created and reviewed CONTRAST MATERIAL: Intravenous: Omnipaque 350 Contrast volume: ml Oral: / no COMPARISON: CT CT ABDOMEN PELVIS W from 04/27/2019 FINDINGS: ABDOMEN and PELVIS: Lung Bases: No acute findings. Liver: Normal density. No suspicious mass. Gallbladder and biliary tract: Status post cholecystectomy. No biliary dilation. Pancreas: Normal density. No abnormal calcifications or inflammatory process. No evidence of mass. Spleen: Normal. Kidneys: Normal size, contour and axis. No radiodense stones. No obstructive uropathy. No suspicious masses seen. Adrenal glands: No masses seen. Vasculature: Abdominal aorta non-dilated. Soft tissues: Bilateral areas of focal increased density in the anterior abdominal wall fat consisten t with injection sites. Bladder: Cutter distended, to the level of the umbilicus. No gross wall thickening. No calculi.No fo joao mass. Bowel: No obstruction. No bowel wall thickening. Appendix normal. Peritoneal cavity: No ascites. No focal collection. No mesenteric inflammatory response. Bones: Hemangioma in L1 vertebral body. No suspicious lytic or blastic lesions. Reproductive organs: Prostate slightly enlarged. Metallic densities in prostate Lymph nodes: No pathologically enlarged lymph nodes. IMPRESSION:: Cutter distended urinary bladder. No focal bladder mass or calcification. Slightly enlarged prostate with radiotherapy seeds in place. RADIATION DOSE DELIVERED: Total DLP DATA REPOSITORY: All CT scans at this facility are submitted to the National Radiology Data Registry (NRDR) Dose Index Registry (DIR) with the [employer] (ACR). RADIATION OPTIMIZATION: All CT scans at this facility use at least one of these dose optimization te chniques: automated exposure control; mA and/or kV adjustment per patient size (includes targeted exa ms where dose is matched to clinical indication); or iterative reconstruction.
[2023-11-19 10:14] VITALS: BP 176/94; PULSE 84; RESP 18; TEMP 36.6; O2SAT 98
[2023-11-19] MEDS: Lactated Ringers 1,000 ML 1000 ML IV (10:34)
[2023-11-19] MEDS: Omnipaque 350 MG/ML 100 ML BTL 85 ML IJ (11:04)
[2023-11-19] MEDS: Normal Saline - Diluent 50 ML VIAL IJ (11:04)
[2023-11-19 11:23] VITALS: BP 190/98; PULSE 85; O2SAT 96
--- NOTE | 2023-11-19 11:29 | DI.VRAD_ITS ---
PROCEDURE INFORMATION: Exam: CT Abdomen And Pelvis With Contrast Exam date and time: 11/19/2023 11:08 AM Age: 73 years old Clinical indication: Other: Urinary frequency, rectal urgency, HX prostate CA; Prior surgery; Surgery date: 6+ months; Surgery type: Appendectomy choleysectomy TECHNIQUE: Imaging protocol: Computed tomography of the abdomen and pelvis with contrast. Contrast material: OMNIPAQUE 350; Contrast volume: 85 ml; Contrast route: INTRAVENOUS (IV); COMPARISON: CT ABDOMEN PELVIS W 04/27/2019 9:43 AM FINDINGS: Liver: Normal. No mass. Gallbladder and biliary ducts: Post cholecystectomy. Pancreas: Normal. No ductal dilation. Spleen: Normal. No splenomegaly. Adrenal glands: Normal. No mass. Kidneys and ureters: Normal. No hydronephrosis. Stomach and bowel: Unremarkable. No obstruction. No mucosal thickening. Appendix: Post appendectomy. Intraperitoneal space: Unremarkable. No free air. No significant fluid collection. Vasculature: Vascular calcifications. Lymph nodes: Unremarkable. No enlarged lymph nodes. Urinary bladder: Over distended bladder. Reproductive: Surgical clips in the prostate gland. Bones/joints: Mild degenerative of both hip joints and symphysis pubis. Mild retrolisthesis of L2 over L3. Soft tissues: Fat containing umbilical hernia. Subcutaneous anterior lower abdominal wall fat stranding, from prior injections. IMPRESSION: No acute intra-abdominal process. Dictated and Authenticated by: Brien Camp MD. Ordering:LUCY Bustamante MD
[2023-11-19 11:49] LABS: Bilirubin Negative (Negative); Blood Trace-intact (Negative); Clarity Clear (Clear); Glucose Negative (Negative); Ketones Negative (Negative); Leukocyte Esterase Negative (Negative); Nitrite Negative (Negative); Urobilinogen 0.2 mg/dL (Up to 0.2)
[2023-11-19] MEDS: Lidocaine 2% Jelly 6 ML SYR (11:50)
[2023-11-19 11:56] LABS: Bacteria Negative HPF (Negative); C & S Indicated? No; Casts Negative LPF (Negative); Crystals Negative HPF (Negative); Epithelial Cells Negative HPF (Negative); Mucus Negative (Negative); WBC Negative HPF (0-5)
[2023-11-19 11:57] VITALS: BP 183/80; PULSE 89; RESP 18; O2SAT 98
== END 2023-11-19 13:07 | disposition home or self-care (01) ==
PROVIDERS: Emergency Provider Emergency Medicine; PCP Family Medicine
DX: R33.8 Other retention of urine (principal); C61 Malignant neoplasm of prostate; E03.9 Hypothyroidism, unspecified; E78.5 Hyperlipidemia, unspecified; Z92.21 Personal history of antineoplastic chemotherapy; Z92.3 Personal history of irradiation
CPT/HCPCS: 36415; 80053; 96360; 99285; 74177; 81003; 81015; 85025; 99284; J3490

== ENCOUNTER → 2023-11-23 08:01 | Outpatient (BNVA) | payer MEDICARE, OTHER, SELFPAY | PROVIDERS: PCP Family Medicine; Referring Provider Family Medicine; Visit Provider Nurse Practitioner Gerontology | DX: R33.8 Other retention of urine (principal); C61 Malignant neoplasm of prostate | CPT/HCPCS: 51798; 81003; 99214 ==

== ENCOUNTER → 2023-11-24 12:30 | Outpatient (BNVA) | payer MEDICARE, OTHER, SELFPAY | PROVIDERS: PCP Family Medicine; Referring Provider Family Medicine; Visit Provider Nurse Practitioner Gerontology | DX: R33.8 Other retention of urine (principal); C61 Malignant neoplasm of prostate | CPT/HCPCS: 51702; 51798; 99214 ==

== ENCOUNTER → 2023-12-09 07:59 | Outpatient (BNVA) | payer MEDICARE, OTHER, SELFPAY | PROVIDERS: PCP Family Medicine; Visit Provider Urology | DX: C61 Malignant neoplasm of prostate (principal); R33.8 Other retention of urine | CPT/HCPCS: 99214 ==

== ENCOUNTER 2023-12-19 06:16 | Day surgery (SDC) | payer MEDICARE, OTHER, SELFPAY ==
[2023-12-19 06:15] VITALS: BP 157/82; PULSE 92; RESP 18; TEMP 36.4; O2SAT 98
--- NOTE | 2023-12-19 06:51 | W.PM.HP.N ---
Date of service: 12/19/23 Time of Service: 06:51 Assessment and Plan Assessment and plan (1) Acute urinary retention: Status: Acute (2) Prostate cancer: Status: Chronic Assessment and plan: We will move ahead with cystoscopy and placement of a suprapubic tube. We will then begin clamping the suprapubic tube to see if he is able to void on his own. If he still not able to void, down the road, we can consider surgical treatment at a later date. History of Present Illness History of Present Illness Chief Complaint: Urinary retention Narrative: This is a 73-year-old gentleman who has a history of adenocarcinoma of the prostate. He was treated with a combination of androgen deprivation along with radiation therapy. He completed the radiation treatments about 5 months ago. He developed urinary retention requiring an indwelling Webber catheter. He failed a voiding trial and his catheter had to be replaced. He does not believe that he be able to perform clean intermittent catheterization. He is already on maximal alpha-sandra therapy. It is too soon after his radiation therapy to consider surgical treatment such as a TURP. After discussing our treatment options, we elected to proceed with placement of a suprapubic tube. That way, he would be able to clamp the tube and attempt to void on his own. Review of Systems Narrative: No fevers or chills Hx cataracts. No dysphasia Hypothyroidism. No shortness of breath, cough or hemoptysis No chest pain or palpitations No nausea, vomiting, hepatitis, ulcers, jaundice No seizures, strokes or peripheral neuropathy No bleeding disorders or anemia No gout PFSH All Active Problems Acute urinary retention (Acute) Right lateral epicondylitis (Acute) Left carpal tunnel syndrome (Acute) Intra-articular fracture of distal end of radius with volar angulation (Acute) Fracture of left distal radius (Acute) Neuroleptic-induced tardive dyskinesia (Acute) BRCA2 gene mutation positive (Acute) Prediabetes (Acute) Family history of colon cancer (Acute) Major depression (Chronic) Suicide ideation (Acute) Bipolar disorder, manic (Acute) Prostate cancer (Chronic) Hyperlipidemia (Chronic) Hypothyroidism (Chronic) Memory loss (Acute) Drug-induced tremor (Acute) Discharge planning issues (Acute) Medical History Psoriasis Surgical History History of colonoscopy (~07/2013) S/P appendectomy S/P cholecystectomy S/P tonsillectomy Family History Father Alzheimer disease Prostate cancer Anxiety Mother Colon cancer Heart disease Social History Smoking/Tobacco Use Status: Never Smoking risk assessment performed?: Yes Alcohol Intake: current Alcohol Intake frequency: holidays/special occasions only Drug use: Never Substance use type: does not use Household members: spouse Housing: house Number of Children: 2 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; [employer] Do you feel safe at home: Yes Do you feel safe in your relationship?: Yes Meds Allergies and Home Medications Allergies Allergy/AdvReac Type Severity Reaction Status Date / Time No Known Allergies Allergy Verified 12/15/23 13:37 Home Medications ?Medication ?Instructions ?Recorded ?Confirmed ?Type levothyroxine 75 mcg tablet 75 mcg PO DAILY #4 tabs 08/04/17 12/15/23 Rx pravastatin 20 mg tablet 40 mg PO DAILY 01/25/19 12/15/23 History duloxetine 60 mg capsule,delayed 30 mg PO BID 09/15/21 12/15/23 History release (Cymbalta) melatonin 5 mg tablet 10 mg PO HS PRN 02/02/22 12/15/23 History multivitamin 1 tab PO DAILY 02/02/22 12/15/23 History turmeric 450 mg-turmeric root 1 cap PO DAILY 02/02/22 12/15/23 History extract 50 mg capsule acetaminophen 500 mg tablet 500 mg PO Q6H PRN pain #60 tabs 02/10/22 12/15/23 Rx ibuprofen 600 mg tablet 600 mg PO TID PRN pain #60 tabs 02/10/22 12/15/23 Rx tamsulosin 0.4 mg capsule 0.8 mg (2 x 0.4 mg) PO DAILY #180 07/26/23 12/15/23 Rx caps carnosine 500 mg capsule 500 mg PO .daily' 11/09/23 12/15/23 History (L-Carnosine) lamotrigine 150 mg tablet 150 mg PO BID 12/15/23 12/15/23 History Exam Const General: cooperative Neck Neck: supple Resp Effort & Inspection: normal respiratory effort Auscultation: clear to auscultation bilaterally Cardio Rate: regular rate Rhythm: regular rhythm GI Palpation: soft and no masses Penis: other (webber catheter in place) Neuro General: patient alert, patient awake and patient oriented x3 Results Last Vital Signs Temp 36.4 C L 12/19/23 06:15 Pulse 92 H 12/19/23 06:15 Resp 18 12/19/23 06:15 BP 157/82 H 12/19/23 06:15 Pulse Ox 98 12/19/23 06:15 Time Spent Time spent with Patient: <40 minutes Time was spent: other
--- NOTE | 2023-12-19 07:05 | ANES.PREOP_ITS ---
General Info Date of Service Date Performed: 12/19/23 Height: 5 ft 2 in Weight: 79.5 kg Body Mass Index (BMI): 32.0 Surgical Procedure: Operation Date: 12/19/23 07:40 Proposed Procedure Side Surgeon p Cystoscopy/Suprapubic Tube Insertion Elias Curran MD Actual Procedure Side Surgeon p Cystoscopy/Suprapubic Tube Insertion Elias Curran MD Pre-Op Diagnosis Post-Op Diagnosis (1) Prostate cancer: (2) Acute urinary retention: Meds Allergies and Home Medications Allergies Allergy/AdvReac Type Severity Reaction Status Date / Time No Known Allergies Allergy Verified 12/15/23 13:37 Home Medication ?Medication ?Instructions ?Recorded levothyroxine 75 mcg tablet 75 mcg PO DAILY #4 tabs 08/04/17 pravastatin 20 mg tablet 40 mg PO DAILY 01/25/19 duloxetine 60 mg capsule,delayed 30 mg PO BID 09/15/21 release (Cymbalta) melatonin 5 mg tablet 10 mg PO HS PRN 02/02/22 multivitamin 1 tab PO DAILY 02/02/22 turmeric 450 mg-turmeric root 1 cap PO DAILY 02/02/22 extract 50 mg capsule acetaminophen 500 mg tablet 500 mg PO Q6H PRN pain #60 tabs 02/10/22 ibuprofen 600 mg tablet 600 mg PO TID PRN pain #60 tabs 02/10/22 tamsulosin 0.4 mg capsule 0.8 mg (2 x 0.4 mg) PO DAILY #180 07/26/23 caps carnosine 500 mg capsule 500 mg PO .daily' 11/09/23 (L-Carnosine) lamotrigine 150 mg tablet 150 mg PO BID 12/15/23 Current Visit Medications: Current Medications Generic Name Dose Route Start Last Admin Trade Name Freq PRN Reason Stop Dose Admin Sodium Chloride 1,000 mls @ 80 mls/hr 12/19/23 06:00 Saline 1000ml Bag IV 12/30/23 05:59 INFUSION SUZANNE Cefazolin Sodium/Dextrose 2 gm in 50 mls @ 100 mls/hr 12/19/23 06:00 Ancef Duplex IVPB 12/19/23 16:00 PREOP SUZANNE IV Miscellaneous Supplies 1 each 12/19/23 06:00 Iv Access IV 01/15/24 23:59 DIRECTED SUZANNE Sodium Chloride 0 ml 12/19/23 06:00 Normal Saline Flush 10 Ml Syr IV 01/15/24 23:59 PRN PRN Sodium Chloride 0 ml 12/19/23 06:00 Normal Saline 10 Ml Vial IJ 01/15/24 23:59 DIRECTED PRN Sterile Water 0 ml 12/19/23 06:00 Water,Injection,Sterile 10 Ml Vial IJ 01/15/24 23:59 DIRECTED PRN PFSH Active Problems Active Problems: Problem Status Onset Code Acute urinary retention Acute R33.8 Cortical age-related cataract, left eye Resolved H25.012 Nuclear age-related cataract, left eye Resolved H25.12 Cortical cataract of right eye Resolved H26.9 Nuclear age-related cataract, right eye Resolved H25.11 Right lateral epicondylitis Acute M77.11 Left carpal tunnel syndrome Acute G56.02 Intra-articular fracture of distal end of radius with volar angulation Acute S52.579A Fracture of left distal radius Acute S52.502A Neuroleptic-induced tardive dyskinesia Acute G24.01, T43.505A BRCA2 gene mutation positive Acute Z15.01, Z15.09 Prediabetes Acute R73.03 Family history of colon cancer Acute Z80.0 Major depression Chronic F32.9 Suicide ideation Acute R45.851 Bipolar disorder, manic Acute F31.10 Prostate cancer Chronic C61 Hyperlipidemia Chronic E78.5 Hypothyroidism Chronic E03.9 Memory loss Acute R41.3 Drug-induced tremor Acute G25.1 Discharge planning issues Acute Z02.9 Medical History Medical History Psoriasis Surgical History Surgical History History of colonoscopy (~07/2013) S/P appendectomy S/P cholecystectomy S/P tonsillectomy Tobacco Smoking/Tobacco Use Status: Never Alcohol Alcohol Intake: current Alcohol intake frequency: holidays/special occasions only Substance Use Substance use: Never Substance use type: does not use Vital Signs and Lab Results Vital Signs Most Recent Vital Signs in EMR: Most Recent Vital Signs Temp Pulse Resp BP Pulse Ox 36.4 C L 92 H 18 157/82 H 98 12/19/23 06:15 12/19/23 06:15 12/19/23 06:15 12/19/23 06:15 12/19/23 06:15 Lab Results Blood Type / Crossmatch: No Data to Display Complete Blood Count: White Blood Count 8.69 10^3/uL (4.4-10.8) 11/19/23 09:33 Red Blood Count 3.86 10^6/uL (4.36-5.78) L 11/19/23 09:33 Hemoglobin 12.1 g/dL (13.5-17.5) L 11/19/23 09:33 Hematocrit 36.2 % (40.0-50.0) L 11/19/23 09:33 Platelet Count 339 10^3/uL (130-400) 11/19/23 09:33 Complete Metabolic Panel: Sodium 142 mmol/L (136-145) 11/19/23 09:33 Potassium 4.0 mmol/L (3.5-5.1) 11/19/23 09:33 Chloride 106 mmol/L (98-107) 11/19/23 09:33 Carbon Dioxide 27.8 mmol/L (21.0-32.0) 11/19/23 09:33 BUN 23 mg/dL (7-18) H 11/19/23 09:33 Creatinine 1.0 mg/dL (0.70-1.30) 11/19/23 09:33 Est GFR (CKD-EPI 2020) 78.49 (mL/min/1.73m2) 11/19/23 09:33 Calcium 9.4 mg/dL (8.5-10.1) 11/19/23 09:33 Albumin 3.6 g/dL (3.4-5.0) 11/19/23 09:33 Glucose 133 mg/dL (74-106) H 11/19/23 09:33 Liver Function Panel: Alanine Aminotransferase (ALT/SGPT) 44 U/L (16-63) 11/19/23 09: 33 Aspartate Amino Transf (AST/SGOT) 36 U/L (15-37) 11/19/23 09:33 Coagulation Panel: No Data to Display Cardiac Panel: No Data to Display Arterial Blood Gas: No Data to Display Venous Blood Gas: No Data to Display Pancreas Panel: No Data to Display Thyroid Panel: No Data to Display Infectious Disease: No Data to Display Blood Cultures: No Data to Display Toxicology Panel: No Data to Display Imaging and Studies Imaging and Studies Study information below may be from another EMR and interpreted by another provider. Please see original notes in EMR for more complete details. EKG Summary: 10/22/2019: Conclusion Atrial flutter with predominant 3:1 AV block...A-rate 245, multiple Ps Inferior infarct, old...Q >35mS, II III aVF Anesthesia Assessment and Plan Anesthesia History Personal History: No History of Anesthesia Complications Family History: No Family History of Anesthesia Complications Exercise Tolerance Exercise Tolerance: Metabolic Equivalents>4 Pertinent Negatives Pertinent Negatives: No Symptoms of GERD, No Major Cardiovascular Symptoms or Complaints and No Major Pulmonary Symptoms or Complaints Cardiac & Pulmonary Exam Cardiac Exam: Normal S1/S2 Heart Sounds Pulmonary Exam: Clear Bilateral Breath Sounds Implantable Cardiac Device Does patient have a Pacemaker or an ICD?: No Airway Exam Known Difficult Airway: No Mallampati Class: 4 Mouth Opening: Normal (> 3cm) Thyromental Distance: Greater than 3 cm Neck Range of Motion: Full ROM Neck Circumference: Normal Teeth Condition: Normal Dentition ASA Classification ASA Score: ASA 3 Emergency Case?: No NPO Status NPO Status: NPO Clears >2 hours, Solids >8 hours Anesthesia Plan Resuscitation Status: Full Code Anesthesia Technique: General Anesthesia Airway Planned: Natural Airway Monitors Used: Standard Monitors Preoperative Comments:: History of tardive dyskinesia, Mal 4, discussed GA/natural airway to GA/LMA/ETT. Patient asked appropriate questions and ready to proceed.
[2023-12-19] MEDS: Lactated Ringers 1,000 ML 80 ML IV (07:09)
[2023-12-19 07:22] VITALS: BMI 32.0
[2023-12-19] MEDS: ceFAZolin 2 GM/50 ML BAG IVPB (07:35)
[2023-12-19] MEDS: Bupivacaine 0.5% Pres-Free 30 ML VIAL (07:55)
[2023-12-19] MEDS: Lidocaine 2% Jelly 6 ML SYR (07:55)
--- NOTE | 2023-12-19 08:02 | W.PM.DSUDISC ---
Date of service: 12/19/23 Time of Service: 08:02 Discharge Plan Disposition Patient Disposition: Home Discharge Details Reason For Visit: insert suprapubic tube Attending Provider: Elias Curran Primary Care Provider: Dewayne Mckinley Home Meds and New Rx's Prescriptions: No Action L-Carnosine 500 mg capsule 500 mg PO .daily' duloxetine [Cymbalta] 60 mg capsule,delayed release(DR/EC) 30 mg PO BID multivitamin Tablet 1 tab PO DAILY melatonin 5 mg tablet 10 mg PO HS PRN turmeric-turmeric root extract 450-50 mg capsule 1 cap PO DAILY tamsulosin 0.4 mg capsule 0.8 mg PO DAILY Qty: 180 4RF pravastatin 20 mg tablet 40 mg PO DAILY acetaminophen 500 mg tablet 500 mg PO Q6H PRN (Reason: pain) Qty: 60 2RF ibuprofen 600 mg tablet 600 mg PO TID PRN (Reason: pain) Qty: 60 0RF levothyroxine 75 MCG tablet 75 mcg PO DAILY Qty: 4 0RF lamotrigine 150 mg tablet 150 mg PO BID Patient Comments: TAKE ONE TABLET BY MOUTH TWICE A DAY Discharge Instructions Additional Instructions: suprapubic catheter to leg bag for 1 week then convert to catheter plug followup appt 1 month for catheter change Discharge Orders Discharge Orders: Discharge Order (Routine); Ordered 12/19/23 Ordered By: Elias Curran DS: Diagnosis Discharge Diagnosis (1) Acute urinary retention: Status: Acute (2) Prostate cancer: Status: Chronic
--- NOTE | 2023-12-19 08:05 | ROE_ITS ---
Date of service: 12/19/23 Time of Service: 08:06 Operative Note Operative Note DATE OF PROCEDURE: 12/19/23 PRE-OP DIAGNOSIS: Urinary retention POST-OP DIAGNOSIS: same PROCEDURE: cystoscopy with insertion of suprapubic tube SURGEON: Elias Curran ANESTHESIA TYPE: Local By Surgeon and General:No Airway Refer to Anesthesia Record ESTIMATED BLOOD LOSS: 5 PATHOLOGY: none sent COMPLICATIONS: None Patient was transported to: same day Patient's condition: stable Implants: [address] st helenian catheter with 10 cc sterile water in balloon Indications: This is a 73-year-old gentleman who has a history of prostate cancer. He was treated with external beam radiation. He completed his treatments about 5 months ago. He developed urinary retention and has an indwelling urethral catheter. He has failed voiding trials with maximal medical therapy. He does not believe that he would be able to perform CIC. He presents now for placement of a suprapubic tube Procedure Description: The patient was given IV antibiotics and brought to the operating room on 12/19/2023. He was given general anesthesia and placed in the dorsal lithotomy position. His indwelling catheter balloon was deflated and the catheter was removed. His genitalia and suprapubic area were all prepped with Betadine and draped. 2% Xylocaine jelly was instilled into the urethra to act as a local anesthetic. A suprapubic field block was performed using half percent Marcaine. The curved Duane retractor was passed through the urethra into the bladder. The tip of the Duane retractor was held up against the abdominal wall. The abdominal wall overlying the retractor was in the size and the tip of the retractor was brought through the suprapubic area onto the abdominal wall. The jaws of the retractor were opened and we then grasped a 16 Maldivian Alvarez catheter and withdrew the catheter back through the suprapubic site, through the bladder and out the urethra where the catheter was released. The catheter was then withdrawn back into the bladder under cystoscopic guidance. We utilized a 22 Maldivian cystoscope and a 30 degree lens. Once the catheter was visualized within the bladder, the catheter balloon was inflated with 10 cc of sterile water and the catheter was hooked to gravity drainage. A dry sterile dressing was applied to the suprapubic site. The cystoscope was then removed. The patient tolerated this procedure well with no complications.
[2023-12-19 08:10] VITALS: BP 139/84; PULSE 79; RESP 18; TEMP 36.5; O2SAT 96
[2023-12-19] MEDS: traMADol 50 MG TAB PO (08:19)
[2023-12-19 08:27] VITALS: BP 142/82; PULSE 78; RESP 18; TEMP 36.4; O2SAT 97
[2023-12-19] MEDS: Ketorolac 15 MG/ML VIAL IVP (08:35)
[2023-12-19] MEDS: Normal Saline Flush 10 ML SYR IV (08:56)
--- NOTE | 2023-12-19 09:20 | W.ANESPOSTOP ---
Postoperative Evaluation Date, Time and Location Date Performed: 12/19/23 Time Performed: 08:35 Patient Location: Day Surgery Unit Vital Signs Most Recent Imported Vital Signs: Most Recent Vital Signs Temp Pulse Resp BP Pulse Ox 36.4 C L 78 18 142/82 H 97 12/19/23 08:27 12/19/23 08:27 12/19/23 08:27 12/19/23 08:27 12/19/23 08:27 Pain Score Most Recent Pain Score: Most Recent Pain Score Pain Level 8 12/19/23 08:27 Assessment Mental Status: Awake (Alert & Oriented to Patient Baseline) Airway and Respiratory Function: Patent airway with normal (patient baseline) respiratory exam Cardiovascular Function: Hemodynamically Stable Hydration Status: Adequately Hydrated Nausea & Vomiting: No Nausea or Vomiting Pain: Pain is Moderate or Severe Postoperative Pain Management: Pain being addressed with medication Peripheral Nerve Block: Patient did not receive a nerve block
[2023-12-19 09:24] VITALS: BP 134/95; PULSE 79; RESP 18; TEMP 36.8; O2SAT 97
== END 2023-12-19 09:50 | disposition home or self-care (01) ==
PROVIDERS: PCP Family Medicine; Visit Provider Urology
PROC: (CPT 51102; principal; 2023-12-19 07:30)
DX: R33.8 Other retention of urine (principal); Z85.46 Personal history of malignant neoplasm of prostate; Z92.3 Personal history of irradiation
CPT/HCPCS: 51102; J0665; J0690; J1885; J2003; J2405; J2704

== ENCOUNTER → 2023-12-27 15:33 | Outpatient (BNVA) | payer MEDICARE, OTHER, SELFPAY | PROVIDERS: PCP Family Medicine; Referring Provider Family Medicine; Visit Provider Urology | DX: C61 Malignant neoplasm of prostate (principal) | CPT/HCPCS: 99212 ==

== ENCOUNTER → 2023-12-29 09:58 | Outpatient (BNVA) | payer MEDICARE, OTHER, SELFPAY | PROVIDERS: PCP Family Medicine; Referring Provider Family Medicine; Visit Provider Nurse Practitioner Gerontology | DX: R30.0 Dysuria (principal); C61 Malignant neoplasm of prostate; R33.8 Other retention of urine; N39.0 Urinary tract infection, site not specified | CPT/HCPCS: 81003; 99213 ==

== ENCOUNTER 2023-12-29 12:04 | Outpatient (REF) | payer MEDICARE, OTHER, SELFPAY ==
--- OUTSIDE RECORDS SUMMARY | 2023-12-29 12:08 | XMS_ITS ---
Author Organization [facility] Address [address] [place] [phone] Care Team Providers Care Obstetrician Name Role Phone Shakila Hicks Primary Care Provider REASON FOR VISIT med f/u, doing better now but was feeling depressed when I could not pea Medications Medication SIG (Take, Route, Frequency, Duration) Notes Start Date End Date Status Ibuprofen 200 MG 1 tablet with food or milk as needed Orally Three times a day Active DULoxetine HCl 20 MG 1 capsule Orally Once a day for 30 days decrease in dose 11/09/2023 Active lamoTRIgine 150 MG 1 tablet Orally twice a day for 30 days 08/04/2023 Active KlonoPIN 0.5 MG 1/2 tablet Orally at bedtime for 30 days take for anxiety 08/09/2023 Active Levothyroxine Sodium 75 MCG 1 tablet in the morning on an empty stomach Orally Once a day for 30 day(s) Active Vitamin E 400 UNIT 1 capsule Orally Once a day for 30 day(s) Unknown VITAMIN D Unknown PRAVASTATIN 40 40 MG 1 tablet Orally Once a day for 90 day(s) Active Vitamin B Complex 100 Unknown Turmeric 450 MG 2 capsules Orally Once a day Active Multivitamin - 1 tablet Orally Once a day for 30 day(s) Active Encounters Encounter Location Date Provider Diagnosis [address] [phone] 12/07/2023 Shakila Hicks Bipolar 2 disorder F31.81 Assessments Encounter Date Diagnosis (ICD Code) Assessment Notes Treatment Notes Treatment Clinical Notes 12/07/2023 Bipolar 2 disorder (ICD-10 - F31.81) recent manic episode 12/07/2023 Other Documentation assistance provided by micah Pacheco for Shakila Hicks MSN IT HELP DESK ASSOCIATE-C TECHNICAL ASSISTANCE CONSULTANT on 12/07/2023. I have read the medical record and scribe entries. I approve the care and treatment provided to this patient as recorded by the scribe. continue on duloxetine 20mg in am , monitor for depression heading into winter months continue on Lamictal to 150 mg,twice a day Monitor for rash and stop if rash occurs Can continue utilizing Klonopin 0.5 mg, quarter tablet as needed Continue individual and couples counseling with Roaxna, encouraged him to continue walking his dog daily , continue paying pickle ball couple times a week, Recommended to use photo therapy (light box) daily for 20 minutes from November-June for seasonal depression monitor for mood dysregulation ,monitor quality of sleep due to HX of Bipolar I Plan Of Treatment Treatment Notes Assessment Notes Other Documentation assistance provided by Maia Gaytan, mariellaibing for Shakila Hicks MSN IT HELP DESK ASSOCIATE-C TECHNICAL ASSISTANCE CONSULTANT on 12/07/2023. I have read the medical record and scribe entries. I approve the care and treatment provided to this patient as recorded by the scribe. Next Appt Details Follow Up: 6 Weeks, Reason: med f/u Provider Name:Shakila landa, 01/10/2024 03:00:00 PM, [address] [place] [address], [phone], Progress Notes * Nain LIPSCOMBDOB:1950 (73 yo M)Acc No.[id number]:12/07/2023 PMM Phone Patient:?Nain LIPSCOMB Provider:?Shakila Hicks PMHNP-BC :1950???Age:73 Y???Sex:Male Greg e:12/07/2023 Address:[address] [place], [place] [id number] Subjective: * Chief Complaints: * ???Med f/udoing better now but was feeling depressed when I could not pea * HPI: ???INTERIM HISTORY:?*?Pt is a 73 y/o male who has a Hx of Bipolar II disorder is seen for med f/u via telephone. ?Client is very active and isdoing well. ?Taking Cymbalta 20 mg andLamictal 150 mg once daily. He denies any depression. The client reportsdifficulty falling asleep, but better now. Denies brayan or hypomania. ?Has ahx of SAD ?He denies any rash secondary to lamictal? Still strugglingwith his urinary retention but is better now- self cath. ?The client continues toindividual and couples counselling with Roxana every other week and finds it janna good fit. Client is not regularly in touch with his oldest son but maintainscontact with is the youngest son through texting. ?The client is back to [place], still unable to swim due to self-catheterization. 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 ?Brayan at [facility] 2016 ?Depression at [facility] 2019.? Therapy: Individual and couples counseling with Roxana, working on EMDR with Roxana Suicide Attempts: Purchased a gun in 2019 and planned to shoot himself. Did not follow through with this plan and was admitted to [facility]. Violence History: Patient can be verbally [...] Remeron, Tricyclics, Olanzapine, Abilify, Vraylar, Rexulti, Geodon, [place], Risperidone, Lamictal, Clonazepam Substance use history: Denies [...] with 1 dogs in his house in [place], [place]. , Evita visits him during the day Employment: retired. Psychiatric ROS Sleep: Improved, but sometimes have diffculty falling asleep. Energy: Improving slowly Mood: Feeling better.? Appetite: okay Weight: no concerns Concentration/Focus: improvement in attention, able to read, focus is good Memory: good Anxiety/panic: none reported Agitation:none reported today, but can be very irritable when manic Stressors: Relationship stressors, Recurrent prostate cancer Behavior/Self-injurious behavior: no history of cutting. 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 Brayan: no evidence of brayan or hypomania today Psychosis: Denies AH and VH Constitutional and neurological exam: Had developed tardive dyskinesia from past meds. No report of concussions or head injury. No history of seizures Gait and station: No concerns Abnormal movements: None reported Tics: none reported. * ROS:?having to self catheter with hx of urinary retention. * Medical History:? * Surgical History:?Radical Pr ostatectomy * Hospitalization/Major Diagno stic Procedure:?Depression- [facility] 2004Mania- [facility] 2016Depression- [facility] 2019 * Family History:?Mother: dece ased 80 [...] ?WHO WAS YOUR PREVIOUS HEALTH CARE PROVIDER?: [facility]. ?WHO ARE YOUR SPECIALITY PHYSICIANS?: Dr Ramo DDS, Brianna Hicks Psychiatrist, Dr. Barillas Oncologist, Roxana Hernandez, Psycologist, Bhavana Samuel. 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 Feels the duloxetine 20mg has helped with his depression, but does have SAD. Denies any anxiety today Did report some depression while struggling with urinary retentionbut better now?No evidence of brayan or hypomania today. Continues in individual and couple counseling with Roxana Phelps.. Is back to playing Soum ball. 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 Plan: * Treatment: * Procedure Codes:?G0467 [facility] VISIT ESTABLISHED PATIENT * Preventive Medicine:? continue on duloxetine? 20mg in am , monitor for depression heading into winter months continue on Lamictal to 150 mg,twice a day? Monitor for rash and stop if rash occurs Can continue utilizing Klonopin 0.5 mg, quarter tablet as needed Continue individual and couples counseling with Roxana,? encouraged him to continue walking his dog daily , continue paying pickle ball couple times a week, Recommended to use photo therapy (light box) daily for 20 minutes from November-June for seasonal depression monitor for mood dysregulation ,monitor quality of sleep due to HX of Bipolar I. * Follow Up:?6 Weeks (Reason: med f/u) * * Sign off status: Completed true * Provider:?NEFTALI Martínez D ate:?12/07/2023 Generated for Arturo macedo/Lev/Michaela on:?12/29/2023 12:07 PM EDT History and Physical Notes * HPI (History of Present Illness) Category Sub-Category Detail Notes INTERIM HISTORY * Pt is a 73 y/o male who has a Hx of Bipolar II disorder is seen for med f/u via telephone. Client is very active and is doing well. Taking Cymbalta 20 mg and Lamictal 150 mg once daily. He denies any depression. The client reports difficulty falling asleep, but better now. Denies brayan or hypomania. Has ahx of SAD He denies any rash secondary to lamictal Still struggling with his urinary retention but is better now- self cath. The client continues to individual and couples counselling with Roxana every other week and finds it to be good fit. Client is not regularly in touch with his oldest son but maintains contact with is the youngest son through texting. The client is back to play [employer] ball, still unable to swim due to self-catheterization. 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 Was hospitalized [facility] in 2004 for dep ression. Brayan at [facility] Examination Category Sub-Category Detail Notes Treatment [...]
--- OUTSIDE RECORDS SUMMARY | 2023-12-29 12:08 | XMS_ITS ---
Author Organization [facility] Address [address] [place] [phone] Care Team Providers Care Medical Education Specialist Name Role Phone Shakila Hicks Primary Care Provider REASON FOR VISIT LAMOTRIGINE SCRIPT Medications Medication SIG (Take, Route, Frequency, Duration) Notes Start Date End Date Status lamoTRIgine 150 MG 2 tablet Orally Once a day for 30 days Increase in dose 08/04/2023 Active lamoTRIgine 150 MG 1 tablet Orally twice a day for 30 days Directions changed from 2 tablets once a day - 1 tablet twice a day 12/08/2023 Active Encounters Encounter Location Date Provider Diagnosis [address] [phone] 12/08/2023 Shakila Hicks Plan Of Treatment Medication Medication Name Sig Start Date Stop Date Notes lamoTRIgine 150 MG 2 tablet Orally Once a day for 30 days 08/04/2023 Increase in dose lamoTRIgine 150 MG 1 tablet Orally twic e a day for 30 days 12/08/2023 Directions changed f rom 2 tablets once a day - 1 tablet twice a day Next Appt Details Provider Name:Shakila landa, 01/10/2024 03:00:00 PM, [address] [place] [address], [id number], Progress Notes * Nain LIPSCOMBDOB:1950 (73 yo M)Acc No.[id number]:12/08/2023 Patient:JessyRUEL Nain Rosenberg :1950???Age:73 Y???Sex:Male Address:[address] [place] [address], [place] [address] * Refills? Refill lamoTRIgine Tablet, 150 MG, Orally, 60 Tablet, 2 tablet, Once a day, 30 days, Refills=5 Start lamoTRIgine Tablet, 150 MG, Orally, 60 Tablet, 1 tablet, twice a day, 30 days, Refills=5 * true * Date:? Generated for Arturo macedo/Lev/Careyitting on:?12/29/2023 12:07 PM EDT
--- OUTSIDE RECORDS SUMMARY | 2023-12-29 12:08 | XMS_ITS | Patient Health Record ---
Author Organization [facility] Address [address] [place] [phone] Care Team Providers Care E Business Project Manager Name Role Phone Shakila Hicks Primary Care Provider Allergies No Known Allergies Reason For Referral Reason referred to [facility] by Shakila Hicks due to his counselor retiring Diagnosis 1 Bipolar 2 disorder ( F31.81) Diagnosis 2 Bipolar disorder, cu rrent episode manic without psychotic features, moderate (F31.12) Diagnosis 3 Marital problems (Z6 3.0) Referral Organization [facility] Referring Provider First Name Shakila Referring Provider Last Name Kurt Referring Provider Speciality Nurse Prac titioner Referred Provider Specialty Licensed Cli gerald Development Disability Specialist Clinical Notes Indy Simpson 08/04 08:59:54 AM >Spoke with patient added, to waitlist. Prefers early afternoons in [place]. No preference on clinician. Referral Priority Routine Medications Medication SIG (Take, Route, Frequency, Duration) Notes Start Date End Date Status lamoTRIgine 150 MG 1 tablet Orally twice a day for 30 days Directions changed from 2 tablets once a day - 1 tablet twice a day 12/08/2023 Active Vitamin E 400 UNIT 1 capsule Orally Once a day for 30 day(s) Unknown VITAMIN D Unknown Ibuprofen 200 MG 1 tablet with food or milk as needed Orally Three times a day Active DULoxetine HCl 20 MG 1 capsule Orally Once a day for 30 days decrease in dose 11/09/2023 Active KlonoPIN 0.5 MG 1/2 tablet Orally at bedtime for 30 days take for anxiety 08/09/2023 Active Multivitamin - 1 tablet Orally Once a day for 30 day(s) Active Levothyroxine Sodium 75 MCG 1 tablet in the morning on an empty stomach Orally Once a day for 30 day(s) Active PRAVASTATIN 40 40 MG 1 tablet Orally Once a day for 90 day(s) Active Vitamin B Complex 100 Unknown Turmeric 450 MG 2 capsules Orally Once a day Active Immunizations Vaccine Route Administration Date Status Comme nts Zostavax [facility] 37289 Unknown 09/21/2011 Administered Yellow Fever Unknown 01/25/2011 Administered TDAP Unknown 01/25/2007 Administered Td Unknown 07/26/2017 Administered Prevnar PCV 13 [facility] 00114 Unknown 06/19/2015 Administer ed Pneumococcal Unknown 05/24/[address] [facility] Purch ased Vaccine 16194 Unknown 12/02/2020 Administered Hepatitis A Unknown 01/25/2011 Administered COVID-19 Moderna 59332 Unknown 05/02/2020 Administered COVID-19 Moderna 08244 Unknown 05/30/2020 Administered COVID-19 Moderna 72324 Unknown 01/07/2021 Administered COVID-19 Moderna 18922 Unknown 06/23/2021 Administered Social History Tobacco Use: Social History Observation Description Date Details (start date - stop date) Former Smoker NA - NA SMOKING STATUS: Question Answer Notes Are you a: Former smoker Are you a: Former smoker Problems Problem Type SNOMED Code ICD Code Onset Dates Problem Status W/U Status Risk Notes Problem 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 (640220096) 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) Active confirmed Problem Obesity (120960155) Obesity (E66.9) Active confirmed Problem Hypothyroidism (23090076) Hypothyroidism (E03.9) Active confirmed Problem Bipolar affective disorder, currently manic, moderate (961936214) Bipolar disorder, current episode manic without psychotic features, moderate (F31.12) Active confirmed Problem Insomnia (439429113) Insomnia (G47.00) Active confirmed Problem Psoriasis (6646965) Psoriasis (L40.9) Active confirmed Problem Malignant tumor of prostate (650829210) Prostate cancer (C61) Active confirmed Problem Bipolar 2 disorder (80585036) Bipolar 2 disorder (F31.81) Active confirmed recent manic episode Problem Marital problems (02825927) Marital problems (Z63.0) Active confirmed Problem Tardive dyskinesia (206647058) Tardive dyskinesia (G24.01) Active confirmed Problem Hyperlipidaemia (25111719) HLD (hyperlipidemia) (E78.5) Active confirmed Problem Prediabetes (325374245) Prediabetes (R73.03) Active confirmed Vital Signs Blood pressure diastolic 80 mmHg 09/22/2023 Height 63 in 09/22/2023 Blood pressure systolic 130 mmHg 09/22/2023 Encounters Encounter Location Date Provider Diagnosis [address] [id number] 02/23/2023 Shakila Hicks [address] [id number] 03/28/2023 Jhaverigrant Fernandezzisyeda [address] [place] [address] 03/30/2023 Shakila Hicks Bipolar 2 disorder F31.[address] [id number] 03/31/2023 Shakila Hicks [address] [id number] 04/01/2023 Jhaveri Rebeccazinski [address] [id number] 04/01/2023 Jhaveri Richardki [address] [id number] 04/02/2023 Jhaveri Rebeccazinski [address] [id number] 04/04/2023 Jhaveri Brolucizinski [address] [id number] 04/04/2023 Jhaveri Brolucizinski [address] [id number] 04/06/2023 Jhaveri Brodzinski [address] [id number] 04/13/2023 Jhaveri Rebeccazinski [address] [place] [address] 04/15/[address] [facility] [address] [place] [address] 05/09/2023 Jhaveri Brodzinski [address] [id number] 06/08/2023 Jhaveri Brodzinski Bipolar 2 disorder F31.[address], [place] [id number] 06/09/2023 Jhaveri Brodzinski [place] [id number] [facility] [place] [id number] 06/27/2023 Jhaveri Brodzinski Bipolar 2 disorder F31.[address], [place] [id number] 07/04/2023 Jhaveri Brodzinski [address] [place] [address] 07/12/2023 Jhaveri Brodzinski [address], [place] [id number] 08/04/2023 Jhaveri Brodzinski [address], [place] [id number] 08/05/2023 Jhaveri Brodzinski [address], [place] [id number] 08/09/2023 Jhaveri Brodzinski Bipolar 2 disorder F31.[address], [place] [id number] 11/08/2023 Jhaveri Brodzinski [address], [place] [id number] 11/09/2023 Jhaveri Brodzinski Bipolar 2 disorder F31.[address], [place] [id number] 12/02/2023 Jhaveri Brodzinski [address], [place] [id number] 12/06/2023 Jhaveri Brodzinski [address], [place] [id number] 12/08/2023 Jhaveri Brodzinski [address], [place] [id number] 02/08/2023 Jhaveri Brodzinski Bipolar 2 disorder F31.[address], [place] [id number] 03/22/2023 Jhaveri Brodzinski Bipolar 2 disorder F31.[address], [place] [id number] 03/30/2023 Jhaveri Brodzinski Bipolar 2 disorder F31.[address], [place] [id number] 04/25/2023 Jhaveri Brodzinski Bipolar disorder, current episode manic without psychotic features, moderate F31.[address], [place] [id number] 04/26/2023 Jhaveri Brodzinski Bipolar 2 disorder F31.[address], [place] [id number] 05/02/2023 Jhaveri Brodzinski Bipolar 2 disorder F31.[address], [place] [id number] 04/14/2023 Jhaveri Brodzinski Bipolar 2 disorder F31.[address], [place] [id number] 06/22/2023 Jhaveri Brodzinski Bipolar 2 disorder F31.[address], [place] [id number] 06/28/2023 Jhaveri Brodzinski Bipolar 2 disorder F31.[address], [place] [id number] 07/05/2023 Jhaveri Brodzinski Bipolar 2 disorder F31.[address], [place] [id number] 07/07/2023 Jhaveri Brodzinski Bipolar 2 disorder F31.[address], [place] [id number] 07/14/2023 Jhaveri Brodzinski Bipolar 2 disorder F31.[address], [place] [id number] 07/21/2023 Jhaveri Brodzinski Bipolar 2 disorder F31.[address], [place] [id number] 09/01/2023 Jhaveri Brodzinski Bipolar 2 disorder F31.[address], [place] [id number] 11/08/2023 Jhaveri Brodzinski Bipolar 2 disorder F31.[address], [place] [id number] 12/07/2023 Jhaveri Brodzinski Bipolar 2 disorder F31.[address], [place] [id number] 04/05/2023 Jhaveri Brodzinski Bipolar disorder, current episode manic without psychotic features, moderate F31.[address] [id number] 09/22/2023 Jhaveri Brodzinski Bipolar 2 disorder F31.[address] [id number] 06/07/2023 Jhaveri Brodzinski Bipolar 2 disorder F31.[address] [id number] 04/01/2023 Jhaveri Brodzinski Bipolar 2 disorder F31.[address] [id number] 04/19/2023 Jhaveri Brodzinski Bipolar 2 disorder F31.[address] [id number] 04/11/2023 Jhaveri Brodzinski Bipolar 2 disorder F31.[address] [id number] 05/25/2023 Jhaveri Brodzinski Bipolar 2 disorder F31.[address] [id number] 08/04/2023 Jhaveri Brodzinski Bipolar 2 disorder F31.81 Assessments Encounter Date Diagnosis (ICD Code) Assessment Notes Treatment Notes Treatment Clinical Notes 02/08/2023 Bipolar 2 disorder (ICD-10 - F31.81) hypomanic episode 03/22/2023 Bipolar 2 disorder (ICD-10 - F31.81) hypomanic episode 03/30/2023 Bipolar 2 disorder (ICD-10 - F31.81) hypomanic episode 03/30/2023 Bipolar 2 disorder (ICD-10 - F31.81) hypomanic episode 04/01/2023 Bipolar 2 disorder (ICD-10 - F31.81) hypomanic episode 04/05/2023 Bipolar disorder, current episode manic without psychotic features, moderate (ICD-10 - F31.12) 04/11/2023 Bipolar 2 disorder (ICD-10 - F31.81) [...] (ICD-10 - F31.81) recent manic episode 12/07/2023 Bipolar 2 disorder (ICD-10 - F31.81) recent manic episode 07/12/2023 Other Documentation assistance provided by micah Augustin for Shakila Hicks [facility] POOL TABLE MECHANIC-C PROFESSOR OF PSYCHIATRY on 07/12/2023. I have read the medical [...] he enjoys when return of energy permits 02/08/2023 Other Documentation assistance provided by micah Colbert for Shakila Hicks [facility] POOL TABLE MECHANIC-C PROFESSOR OF PSYCHIATRY on 02/08/2023. I have read the medical [...] provided by micah Colbert for Shakila Hicks [facility] POOL TABLE MECHANIC-C PROFESSOR OF PSYCHIATRY on 03/22/2023. I have read the medical [...] by micah Colbert for Shakila Hicks [employer] POOL TABLE MECHANIC-C PROFESSOR OF PSYCHIATRY on 03/30/2023. I have read the medical [...] 200 mg Lamotrigine, stop if rash occurs 04/05/2023 Other Documentation assistance provided by micah Colbert MS[employer] POOL TABLE MECHANIC-C PROFESSOR OF PSYCHIATRY on 04/05/2023. I have read the medical record and scribe entries. I approve the care and treatment provided to this patient as recorded by the scribe 04/05/2023 Other Documentation assistance provided by micah Colbert [employer] POOL TABLE MECHANIC-C PROFESSOR OF PSYCHIATRY on 04/05/2023. I have read the medical record and scribe entries. I approve the care and treatment provided to this patient as recorded by the scribe 04/01/2023 Other continue on se roquel 400mg [...] provided by micah Colbert for Shakila Hicks [facility] POOL TABLE MECHANIC-C PROFESSOR OF PSYCHIATRY on 04/05/2023. I have read the medical [...] provided by micah Colbert for Shakila Hicks [facility] POOL TABLE MECHANIC-C PROFESSOR OF PSYCHIATRY on 04/11/2023. I have read the medical [...] counselingTry to walk the dog dailyEngage in [employer] twice weekly 04/14/2023 Other Documentation assistance provided by micah Colbert for Shakila Hicks [facility] POOL TABLE MECHANIC-C PROFESSOR OF PSYCHIATRY on 04/14/2023. I have read the medical [...] and anxietyContinue individual and couples counseling with RhoAlissonncouraged journaling so he can process his concerns with RhondaContinue walking with his dogContinue playing pickPaySimpleWill touch base with him on 04/19 to reassess his mood before he picks a rental car on all back this clinician after he speaks to his Urologist today 04/19/2023 Other Documentation assistance provided by Nora Lester, mariellaibing for Shakila Hicks [employer] POOL TABLE MECHANIC-C PROFESSOR OF PSYCHIATRY on 04/19/2023. I have read the medical [...] daily walks and playing pickleballEncouraged going to [employer] for swimmingCan call Rosy [phone] Evita advised, drive to [place] or his appointment to [employer] or [employer] on weekend, so he is comfortable. Reschedule his rental car appointment to next week 04/25/2023 Other Documentation assistance provided by micah Colbert for Shakila Hicks MS[employer] POOL TABLE MECHANIC-C PROFESSOR OF PSYCHIATRY on 04/25/2023. I have read the medical [...] provided by micah Colbert for Shakila Hicks [facility] POOL TABLE MECHANIC-C PROFESSOR OF PSYCHIATRY on 04/26/2023. I have read the medical [...] dogs, playing pickleball, and engaging in swimming 05/02/2023 Other Documentation assistance provided by micah Leija for Shakila Hicks [facility] POOL TABLE MECHANIC-C PROFESSOR OF PSYCHIATRY on 05/02/2023. I have read the medical record and scribe entries. I approve the care and treatment provided to this patient as recorded by the scribe 05/25/2023 Other Documentation assistance provided by micah Colbert [facility] POOL TABLE MECHANIC-C PROFESSOR OF PSYCHIATRY on 05/25/2023. I have read the medical record and scribe entries. I approve the care and treatment provided to this patient as recorded by the scribe. Continue Seroquel 600 mg at bedtime, monitor for abnormal movementsWill consider decreasing dose to 500 mg when Evita comes back from [place], so she can monitor Nain carrilloCan call if there are any questions or concerns while tapering down on SeroquelContinue Lamictal 100 mg, monitor for rash and stop if rash occursContinue Klonopin 0.5 mg quater tablet at bedtimeContinue individual and couples therapy with Roxana KarolContinue engaging in pickleball, swimming and regular walks 06/07/2023 Other Documentation assistance provided by micah Colbert for Shakila Hicks [facility] POOL TABLE MECHANIC-C PROFESSOR OF PSYCHIATRY on 06/07/2023. I have read the medical [...] provided by micah Anderson for Shakila Hicks [facility] POOL TABLE MECHANIC-C PROFESSOR OF PSYCHIATRY on 06/22/2023. I have read the medical [...] provided by micah Anderson for [facility]ila Hicks [facility] PROFESSOR OF PSYCHIATRY on 06/28/2023. I have read the medical [...] provided by micah Anderson for Shakila Hicks [facility] POOL TABLE MECHANIC-C PROFESSOR OF PSYCHIATRY on 07/05/2023. I have read the medical [...] Other Documentation assistance provided by micah Anderson [facility] POOL TABLE MECHANIC-C PROFESSOR OF PSYCHIATRY on 07/07/2023. I have read the medical [...] Other Documentation assistance provided by micah Anderson [facility] PROFESSOR OF PSYCHIATRY on 07/14/2023. I have read the medical [...] Other Documentation assistance provided by micah Anderson [facility] PROFESSOR OF PSYCHIATRY on 07/21/2023. I have read the medical [...] Documentation assistance provided by micah Anderson MS[employer] POOL TABLE MECHANIC-C PROFESSOR OF PSYCHIATRY on 08/04/2023. I have read the medical [...] is going to retire will refer to [facility] encouraged him to continue walking his dog daily , continue paying pickle ball couple times a week, consider returning to swimming during the week 09/01/2023 Other Documentation assistance provided by micah Anderson [facility] POOL TABLE MECHANIC-C PROFESSOR OF PSYCHIATRY on 09/01/2023. I have read the medical [...] is going to retire will refer to [facility] encouraged him to continue walking his dog daily , continue paying pickle ball couple times a week, consider returning to swimming during the week 09/22/2023 Other Documentation assistance provided by micah Anderson Brodzinski MS[employer] POOL TABLE MECHANIC-C PROFESSOR OF PSYCHIATRY on 09/22/2023. I have read the medical [...] is going to retire will refer to [facility] encouraged him to continue walking his dog daily , continue paying pickle ball couple times a week, consider returning to swimming during the week 11/08/2023 Other Documentation assistance provided by micah Pacheco for Shakila Hicks MS[employer] POOL TABLE MECHANIC-C PROFESSOR OF PSYCHIATRY on 11/08/2023. I have read the medical [...] 20 minutes from November-June for seasonal depression 12/07/2023 Other Documentation assistance provided by micah Pacheco MSN POOL TABLE MECHANIC-C PROFESSOR OF PSYCHIATRY on 12/07/2023. I have read the medical [...] HX of Bipolar I Plan Of Treatment Next Appt Details Provider Name:Shakila Fernandezbang landa, 01/10/2024 03:00:00 PM, [address], [place], [phone], Insurance Providers Payer Name Payer Address Payer Phone Subscriber Number Group Number Insured Name Patient Relationship to Insured Coverage Start Date Coverage End Date MEDICARE FQHC [address] [place], [place] [id number] LindaCiprianoy Self - patient is the insured [employer] MEDICARE SUPPLEMENT [address] [place] [phone] [id number] Cipriano Mckeony Self - patient is the insured Medical (General) History Medical History History ICD Code Bipolar 2 Disorder Hypothyroidism 2020 CPE Tardive Dyskinesia, neuroleptic induced Insomnia Hyperlipidemia Psoriasis Obesity Part Medications, Klonopin, Sertraline, Cymbalta, Remeron, Tricylics, Olanzapine, Abilify, Vraylar, Rexulti, Geodon, Murray, Risperdal Cancer- Prostate BRCA 2 Gene Mutation po sitive Surgical History Surgery Date(Month/Year) Radical Prostatectomy Hospitalization History Reason Date(Month/Year) [place] [facility] [place] [facility]
--- OUTSIDE RECORDS SUMMARY | 2023-12-29 12:08 | XMS_ITS ---
Author Organization [facility] Address [address] [place] [phone] Care Team Providers Care Practice Professional Name Role Phone Shakila Hicks Primary Care Provider [phone] REASON FOR VISIT LAMOTRIGINE REFILL Encounters Encounter Location Date Provider Diagnosis [address] [id number] 12/06/2023 Shakila Hicks Plan Of Treatment Next Appt Details Provider Name:Shakila landa, 01/10/2024 03:00:00 PM, [address] [place] [address], [phone], Progress Notes * Nain MCKEONDOB:1950 (73 yo M)Acc No.[id number]:12/06/2023 Patient:?Nain MCKEON :1950???Age:73 Y???Sex:Male Address:[address] [place] [phone] * true * Date:? Generated for Printi ng/Faveroniqueg/eTransmitting on:?12/29/2023 12:07 PM EDT
--- OUTSIDE RECORDS SUMMARY | 2023-12-29 12:09 | XMS_ITS | Encounter Summary ---
[place] [address] Care Team Providers Care Licensed Home Inspector Name Role Phone Celio Sanders MD Primary Care Provider [phone] Reason for Visit * Reason Comments Injections IM Lupron * Treatment/Therapy Plan Authorization (Routine) - Authorized Specialty Diagnoses / Procedures Referred By Contac t Referred To Contact Hematology and Oncology Diagnoses Recurrent prostate cancer Procedures TC LEUPROLIDE ACETATE 7.5MG, FOR DEPOST SUSPENSION (LUPRON DEPOT) Ronnie Vazquez MD [address] [place] [address] [place] [address] [facility] [address] [place] [address] Referral ID Status Reason Start Date Expiration Date V isits Requested Visits Authorized [id number] Authorized 02/17/2023 02/17/2024 1 103 Encounter Details Date Type Department Care Team (Late st Contact Info) Description 03/01/2023 11:30 AM EST Infusion Hematology Oncology at [address] [phone] Recurrent prostate cancer Social History Tobacco Use Types Packs/Day Years Used Date Smoking Tobacco: Never Smokeless Tobacco: Never Alcohol Use Standard Drinks/Week Comments Not Currently 0 (1 standard drink = 0.6 oz pur e alcohol) beer and wine twice a month [facility] Utilities Answer Date Recorded In the past 12 months has [employer], gas, oil, or water company threatened to [...] 2:00 PM EST Office Visit Dermatology at [address] [place] [address] Prisca Hughes MD [facility] [address] documented as of this encounter Visit Diagnoses [...] Gluteal documented in this encounter Care Teams Licensed Home Inspector Relationship Specialty Start Date End Date Celio Sanders MD [address] [place] [address] PCP - General Internal Medicine 05/19/16 documented as of this encounter
--- OUTSIDE RECORDS SUMMARY | 2023-12-29 12:09 | XMS_ITS | Clinical Summary ---
Author Organization [facility] Address [address] [place] [address] Care Team Providers Care Tube Maker Name Role Phone Celio Sanders MD Primary Care Provider [phone] Social History Tobacco Use Types Packs/Day Years [...] 2008 Fall Risk Screening 2013 COVID-19 Vaccine ( season) 2022 Care Teams Tube Maker Relationship Specialty Start Date End Date Celio Sanders MD [address] [place] [address] PCP - General 04/30/16
--- OUTSIDE RECORDS SUMMARY | 2023-12-29 12:09 | XMS_ITS | Encounter Summary ---
Author Organization [facility] Address [facility] [place] [address] Care Team Providers Care Linter Operator Name Role Phone Celio Sanders MD Primary Care Provider [phone] Encounter Details Date Type Department Care Team [...] 2:00 PM EST Office Visit Dermatology at [facility] [address] [place] [address] Prisca Hughes MD [facility] [address] [place] [address] documented as of this encounter Visit Diagnoses Not on filedocumented in this encounter Care Teams Linter Operator Relationship Specialty Start Date End Date Celio Sanders MD [address] [place] [address] PCP - General Internal Medicine 05/19/16 documented as of this encounter
--- OUTSIDE RECORDS SUMMARY | 2023-12-29 12:09 | XMS_ITS | Encounter Summary ---
Author Organization [facility] Address [facility] [place] [address] Care Team Providers Care Torpedoman'S Mate Name Role Phone Celio Sanders MD Primary Care Provider [phone] Encounter Details Date Type Department Care Team [...] place to sleep or slept in a fpc (including now)? No 02/15/2023 Sex and Gender Information Value Date Recorded Sex Assigned at Not on file Gender Identity Not on file Sexual Orientation Not on file documented as of this encounter Plan of Treatment Upcoming Encounters Date Type Department Care Team (Late st Contact Info) Description 01/24/2024 2:00 PM EST Office Visit Dermatology at [facility] [address] [place] [address] Prisca Hughes MD [facility] [address] [facility] [place] [address] documented as of this encounter Visit Diagnoses Not on filedocumented in this encounter Care Teams Torpedoman'S Mate Relationship Specialty Start Date End Date Celio Sanders MD [address] [place] [address] PCP - General Internal Medicine 05/19/16 documented as of this encounter
--- OUTSIDE RECORDS SUMMARY | 2023-12-29 12:09 | XMS_ITS | Clinical Summary ---
Author Organization [facility] Address [facility] [place] [address] Care Team Providers Care Patient Experience Coordinator Name Role Phone Celio Sanders MD [...] 10/25/2023 10:00 AM EDT Telephone Hematology/Oncology at [address] [phone] 10/24/2023 1:30 PM EDT Office Visit Hematology/Oncology at [address] [phone] Bisi Cheng APRN Recurrent prostate [...] a month [facility] Utilities Answer Date Recorded In the past [...] place to sleep or slept in a correction (including now)? No 02/15/2023 Sex and Gender [...] 2:00 PM EST Office Visit Dermatology at [facility] [address] [place] [address] Prisca Hughes MD [facility] [address] [address] Health Maintenance Due Date Last Done Comments CT Colonography 1950 FIT DNA 1950 FIT 1950 Sigmoidoscopy 1950 Hepatitis C Screening 1966 Tetanus/Diphtheria/Pertussis Vaccines (1 - Tdap) 09/19/1967 Zoster vaccine (1 of 2) 1998 Advance Directive 09/19/2003 Pneumoccocal Vaccine: 65+ (1 of 1 - PCV) 2013 Covid-19 Vaccine (2 - 2022- season) 2023 Influenza (Flu) vaccine (1 o [...] * COLONOSCOPY (05/12/2021 2:18 PM EST) COLONOSCOPY [facility] Endoscopy Procedure Date: 05/12/2021 2:18 PM ? Patient Name: Nain Mckeon ? Date of : 1950 ? Age: 70 ? Order #: [id number] ? Instrument Name: [id number] ? Procedure: ? Colonoscopy Indications: ? Screening patient at increased risk: ? Family history of 1st-degree relative ? with colorectal cancer at age 60 ? years (or older) Providers: ? Nicky Bray MD, Sav Platt ? Ivon Angel, [employer] Referring : ?Celio Sanders MD Medicines: ? [...] preparation was ? evaluated using the BBPS ([place] ? Bowel Preparation Scale) with scores ? [...] Procedure Code(s): ?? --- Professional --- ? 42631, Colonoscopy, flexible; with ? removal of tumor(s), polyp(s), or ? other lesion(s) by snare technique CPT copyright 2019 [employer]. All rights reserved. The codes documented in this report are preliminary and upon label coder review may be revised to meet [...] discussion: Pt desires full code. Care Teams Patient Experience Coordinator Relationship Specialty Start Date End Date Celio Sanders MD [address] [place] [address] PCP - General Internal Medicine 05/19/16
--- OUTSIDE RECORDS SUMMARY | 2023-12-29 12:09 | XMS_ITS | Data Portability ---
Author Organization [place] - [facility] Address [address] [place] [address] Assessment No assessment recorded. Plan of Treatment Reminders Order Date Submit Date Provider Last Modified By Organization Details Last Modified Time Details Appointments Annual Chronic Care (65+) 30 2023 02:10P M DEWAYNE JOHNSON Not available Not available Not available Lab urinalysi s, dipstick 2023 024 [email or web address] [facility], [address] [place] [address], [address], [place], [address], 07/02/2023 12:50:28 culture, urine [address] [facility] (Registration ), [address] [place] [address] [place], [address], 07/04/2023 08:41:06 microscop ic method, urine [address] [facility] (Registration ), [address] [place] [address] , [place], [address], 07/04/2023 08:40:48 Referral physical therapist referral 2023 024 [facility], [address], [place], [address], 08/31/2023 11:47:52 Procedures None recorded. Surgeries None recorded. Imaging None recorded. Medication Orders Flonase Allergy Relief 50 mcg/actua tion nasal spray,mayra pension 2023 024 [facility], [address] [place], [address], 05/05/2023 11:41:51 levofloxa tracy 750 mg tablet 2023 024 aurelio [facility], [address] [place], [address], 08/03/2023 11:17:49 metronida zole 500 mg tablet 2023 024 aurelio [facility], [address] [place], [address], 08/03/2023 11:17:49 cyclobenz aprine 10 mg tablet 2023 024 aurelio [facility], [address] [place], [address], 08/07/2023 12:47:14 Patient TargetsNo targets recorded. Patient Instructions Encounter Date Encounter Id Patient Instructions Last Modified By Organization Details Last Modified Time 05/05/2023 [id number] learning about healthy weight [email or web address] Not available 05/05/2023 13:38:31 07/02/2023 [id number] 1. There is a infection in the [...] regarding this. [email or web address] Not available 07/02/2023 13:23:13 12/21/2023 [id number] Dear gf, Thank you for visiting our clinic today. I appreciate your commitment to improving your health and managing your conditions effectively. Here's a summary of the galvan points from our discussion: - Continue monitoring your prostate cancer with Dr. Curran, and follow up on any recommended procedures post-radiation therapy. - Address your prediabetes through lifestyle changes: - Aim to reduce your blood sugar levels through diet and exercise. - Monitor your blood sugar regularly with annual or bi-annual blood work. - Maintain a healthy lifestyle to prevent the progression of prediabetes: - Incorporate regular exercise into your routine. - Opt for a balanced diet and moderate your sugar intake. - Manage your suprapubic catheter care and gradually reduce dressing as healing progresses. - Your next scheduled appointment is on February 21 for your annual check-up. - Continue to monitor your health with regular visits to your healthcare providers, including follow-ups with your urologist and medical oncologist as advised. Please feel free to reach out if you have any questions or concerns before your next appointment. Best regards, Dewayne Johnson MD Family Medicine [email or web address] Not available 12/22/2023 08:50:55 Reason for Referral Hand Twister Referral for Ingr owing toenail Referring Physician: Dewayne Johnson [facility], Encounter Date: 03/21/2023 Physical Therapist Referral for Tension-type headache Referring Physician: Dewayne Johnson [facility], Encounter Date: 08/03/2023 Results Created Date Observation Date Name Description Value Unit Range Abnormal Flag Note LastModifiedBy Organization Detail LastModifiedTime 04/19/19 24 04/19/2023 COMPL ETE BLOOD COUNT W/DIF F WBC 6.83 10_3/ uL 4.4-10 .8 normal Not Available [address] [place], [address] 04/19/2023 12:58:26 04/19/19 24 04/19/2023 COMPL ETE BLOOD COUNT W/DIF F RBC 4.02 10_6/ uL 4.36-5 .78 low Not Available [address] [place], [address] 04/19/2023 12:58:26 04/19/19 24 04/19/2023 COMPL ETE BLOOD COUNT W/DIF F HGB 12.3 g/dL 13.5-1 7.5 low Not Available [address] [place], [address] 04/19/2023 12:58:26 04/19/19 24 04/19/2023 COMPL ETE BLOOD COUNT W/DIF F HCT 37.2 % 40.0-5 0.0 low Not Available [address] [place], [address] 04/19/2023 12:58:26 04/19/19 24 04/19/2023 COMPL ETE BLOOD COUNT W/DIF F MCV 93 fL 80-95 normal Not Available [address] [place], [address] 04/19/2023 12:58:26 04/19/19 24 04/19/2023 COMPL ETE BLOOD COUNT W/DIF F MCH 30.6 pg 27.0-3 3.0 normal Not Available [address] [place], [address] 04/19/2023 12:58:26 04/19/19 24 04/19/2023 COMPL ETE BLOOD COUNT W/DIF F MCHC 33.1 % 32.0-3 6.0 normal Not Available [address] [place], [address] 04/19/2023 12:58:26 04/19/19 24 04/19/2023 COMPL ETE BLOOD COUNT W/DIF F RDW 13.2 % 11.8-1 4.1 normal Not Available [address] [place], [address] 04/19/2023 12:58:26 04/19/19 24 04/19/2023 COMPL ETE BLOOD COUNT W/DIF F platelet count 322 10_3/ uL 130-40 0 normal Not Available [address] [place], [address] 04/19/2023 12:58:26 04/19/19 24 04/19/2023 COMPL ETE BLOOD COUNT W/DIF F MPV 8.7 fL 8.0-11 .0 normal Not Available [address] [place], [address] 04/19/2023 12:58:26 04/19/19 24 04/19/2023 COMPL ETE BLOOD COUNT W/DIF F neutrophils % 54.5 Not Available [address] [place], [address] 04/19/2023 12:58:26 04/19/19 24 04/19/2023 COMPL ETE BLOOD COUNT W/DIF F lymphocytes % 31.5 Not Available [address] [place], [address] 04/19/2023 12:58:26 04/19/19 24 04/19/2023 COMPL ETE BLOOD COUNT W/DIF F monocytes % 11.0 Not Available [address] [place], [address] 04/19/2023 12:58:26 04/19/19 24 04/19/2023 COMPL ETE BLOOD COUNT W/DIF F eosinophils % 2.3 Not Available [address] [place], [address] 04/19/2023 12:58:26 04/19/19 24 04/19/2023 COMPL ETE BLOOD COUNT W/DIF F basophils % 0.4 Not Available [address] [place], [address] 04/19/2023 12:58:26 04/19/19 24 04/19/2023 COMPL ETE BLOOD COUNT W/DIF F immature grans % 0.3 Not Available [id number] [place], [address] 04/19/2023 12:58:26 04/19/19 24 04/19/2023 COMPL ETE BLOOD COUNT W/DIF F nucleated RBC 0.0 % 0.0-0. 3 normal Not Available [address] [place], [address] 04/19/2023 12:58:26 04/19/19 24 04/19/2023 COMPL ETE BLOOD COUNT W/DIF F absolute neutrophil count 3.72 10_3/ uL 1.2-6. 7 normal Not Available [address] [place], [address] 04/19/2023 12:58:26 04/19/19 24 04/19/2023 COMPL ETE BLOOD COUNT W/DIF F absolute lymphocyte count 2.15 10_3/ uL 1.2-3. 4 normal Not Available [address] [place], [address] 04/19/2023 12:58:26 04/19/19 24 04/19/2023 COMPL ETE BLOOD COUNT W/DIF F absolute monocyte count 0.75 10_3/ uL 0.1-0. 8 normal Not Available [address] [place], [address] 04/19/2023 12:58:26 04/19/19 24 04/19/2023 COMPL ETE BLOOD COUNT W/DIF F absolute eosinophil count 0.16 10_3/ uL 0.0-0. 7 normal Not Available [address] [place], [address] 04/19/2023 12:58:26 04/19/19 24 04/19/2023 COMPL ETE BLOOD COUNT W/DIF F absolute basophil count 0.03 10_3/ uL 0.0-0. 2 normal Not Available [address] [place], [address] 04/19/2023 12:58:26 04/19/19 24 04/19/2023 COMPR EHENS MARGE METAB OLIC PANEL calcium 10.0 mg/dL 8.5-10 .1 normal Not Available [address] [place], [address] 04/19/2023 14:02:34 04/19/19 24 04/19/2023 COMPR EHENS MARGE METAB OLIC PANEL glucose 101 mg/dL 74-106 normal Not Available Alek luo [address] [place], [address] 04/19/2023 14:02:34 04/19/19 24 04/19/2023 COMPR EHENS MARGE METAB OLIC PANEL BUN 15 mg/dL 7-18 normal Not Available Alek luo [address] [place], [address] 04/19/2023 14:02:34 04/19/19 24 04/19/2023 COMPR EHENS MARGE METAB OLIC PANEL creatinine 1.0 mg/dL 0.70-1 .30 normal Not Available [address] [place], [address] 04/19/2023 14:02:34 04/19/19 24 04/19/2023 COMPR EHENS [...] young er-ag ed adult s. Not Available [address] [place], [address] 04/19/2023 14:02:34 04/19/19 24 04/19/2023 COMPR EHENS MARGE METAB OLIC PANEL total protein 8.3 g/dL 6.4-8. 2 high Not Available [address] [place], [address] 04/19/2023 14:02:34 04/19/19 24 04/19/2023 COMPR EHENS MARGE METAB OLIC PANEL albumin 4.0 g/dL 3.4-5. 0 normal Not Available [address] [place], [address] 04/19/2023 14:02:34 04/19/19 24 04/19/2023 COMPR EHENS MARGE METAB OLIC PANEL bilirubin, total 0.4 mg/dL 0.2-1. 0 normal Not Available [address] [place], [address] 04/19/2023 14:02:34 04/19/19 24 04/19/2023 COMPR EHENS MARGE METAB OLIC PANEL alk phos 79 U/L 46-116 normal Not Available [address] [place], [address] 04/19/2023 14:02:34 04/19/19 24 04/19/2023 COMPR EHENS MARGE METAB OLIC PANEL sodium 138 mmol/ L 136-14 5 normal Not Available [address] [place], [address] 04/19/2023 14:02:34 04/19/19 24 04/19/2023 COMPR EHENS MARGE METAB OLIC PANEL potassium 4.2 mmol/ L 3.5-5. 1 normal Not Available [address] [place], [address] 04/19/2023 14:02:34 04/19/19 24 04/19/2023 COMPR EHENS MARGE METAB OLIC PANEL chloride 103 mmol/ L 98-107 normal Not Available [address] [place], [address] 04/19/2023 14:02:34 04/19/19 24 04/19/2023 COMPR EHENS MARGE METAB OLIC PANEL CO2 31.4 mmol/ L 21.0-3 2.0 normal Not Available [address] [place], [address] 04/19/2023 14:02:34 04/19/19 24 04/19/2023 COMPR EHENS MARGE METAB OLIC PANEL anion gap 3.6 mmol/ L 3-11 normal Not Available [address] [place], [address] 04/19/2023 14:02:34 04/19/19 24 04/19/2023 COMPR EHENS MARGE METAB OLIC PANEL AST 28 U/L 15-37 normal Not Available Alek luo [address] [place], [address] 04/19/2023 14:02:34 04/19/19 24 04/19/2023 COMPR EHENS MARGE METAB OLIC PANEL ALT 39 U/L 16-63 normal Not Available Alek luo [address] [facility] [place], [address] 04/19/2023 14:02:34 04/19/19 24 04/22/2023 TESTO STERO NE, TOTAL testosterone , total 8.2 NG/dL 240-95 0 abnormal ----- ----- ----- ----A DDITI ONAL INFOR MATIO N---- ----- ----- ----- Testi ng perfo rmed by Luisito Rhoades atogr radha [place] m Mass Spect romet ry (LC-M S/MS) . This test was devel oped and its perfo rmanc e noemi cteri stics deter mined by [facility] in a abbi r consi stent with RAMON tellez. This test has not been clear ed or appro joan by the U.S. Food and Drug Admin istra tion. Test Perfo rmed by: [facility] Labor atori es - [facility] [address] [place] [address] Lab Direc tor: Hoang Cruz Ph.D. ; CLIA# [id number] Not Available [address] [facility] [place], [address] 04/22/2023 16:53:27 04/19/19 24 04/21/2023 PSA, ULTRA [...] testi ng metho d is an elect [employer] milum inesc ence assay manuf actur ed by [employer]. and perfo rmed on the Barrett syste m. Value s obtai radha with diffe rent assay metho ds or kits may be diffe rent and canno t be used inter domínguez abimael . Test resul ts canno t be inter prete d as absol [place] evide nce for the prese nce or absen ce of molly barbosa . Test Perfo rmed by: [facility] Labor [facility] - [facility] [address] [facility] [place] [address] Lab Direc tor: Hoang London. Ph.D. ; CLIA# [id number] Not Available [address] [place], [address] 04/22/2023 16:53:27 06/10/19 24 06/10/2023 COMPL ETE BLOOD COUNT W/DIF F WBC 7.95 10_3/ uL 4.4-10 .8 normal Not Available [address] [place], [address] 06/10/2023 14:55:59 06/10/19 24 06/10/2023 COMPL ETE BLOOD COUNT W/DIF F RBC 4.03 10_6/ uL 4.36-5 .78 low Not Available [address] [place], [address] 06/10/2023 14:55:59 06/10/19 24 06/10/2023 COMPL ETE BLOOD COUNT W/DIF F HGB 12.7 g/dL 13.5-1 7.5 low Not Available [address] [place], [address] 06/10/2023 14:55:59 06/10/19 24 06/10/2023 COMPL ETE BLOOD COUNT W/DIF F HCT 37.3 % 40.0-5 0.0 low Not Available [address] [place], [address] 06/10/2023 14:55:59 06/10/19 24 06/10/2023 COMPL ETE BLOOD COUNT W/DIF F MCV 93 fL 80-95 normal Not Available [address] [place], [address] 06/10/2023 14:55:59 06/10/19 24 06/10/2023 COMPL ETE BLOOD COUNT W/DIF F MCH 31.5 pg 27.0-3 3.0 normal Not Available [address] [place], [address] 06/10/2023 14:55:59 06/10/19 24 06/10/2023 COMPL ETE BLOOD COUNT W/DIF F MCHC 34.0 % 32.0-3 6.0 normal Not Available [address] [place], [address] 06/10/2023 14:55:59 06/10/19 24 06/10/2023 COMPL ETE BLOOD COUNT W/DIF F RDW 13.0 % 11.8-1 4.1 normal Not Available [address] [place], [address] 06/10/2023 14:55:59 06/10/19 24 06/10/2023 COMPL ETE BLOOD COUNT W/DIF F platelet count 326 10_3/ uL 130-40 0 normal Not Available [address] [place], [address] 06/10/2023 14:55:59 06/10/19 24 06/10/2023 COMPL ETE BLOOD COUNT W/DIF F MPV 8.8 fL 8.0-11 .0 normal Not Available [address] [place], [address] 06/10/2023 14:55:59 06/10/19 24 06/10/2023 COMPL ETE BLOOD COUNT W/DIF F neutrophils % 46.4 Not Available [address] [place], [address] 06/10/2023 14:55:59 06/10/19 24 06/10/2023 COMPL ETE BLOOD COUNT W/DIF F lymphocytes % 37.2 Not Available [address] [facility] [place], [address] 06/10/2023 14:55:59 06/10/19 24 06/10/2023 COMPL ETE BLOOD COUNT W/DIF F monocytes % 9.2 Not Available [address] [facility] [place], [address] 06/10/2023 14:55:59 06/10/19 24 06/10/2023 COMPL ETE BLOOD COUNT W/DIF F eosinophils % 5.9 Not Available [address] [facility] [place], [address] 06/10/2023 14:55:59 06/10/19 24 06/10/2023 COMPL ETE BLOOD COUNT W/DIF F basophils % 0.9 Not Available [address] [facility] [place], [address] 06/10/2023 14:55:59 06/10/19 24 06/10/2023 COMPL ETE BLOOD COUNT W/DIF F immature grans % 0.4 Not Available [address] [facility] [place], [address] 06/10/2023 14:55:59 06/10/19 24 06/10/2023 COMPL ETE BLOOD COUNT W/DIF F nucleated RBC 0.0 % 0.0-0. 3 normal Not Available [address] [place], [address] 06/10/2023 14:55:59 06/10/19 24 06/10/2023 COMPL ETE BLOOD COUNT W/DIF F absolute neutrophil count 3.69 10_3/ uL 1.2-6. 7 normal Not Available [address] [place], [address] 06/10/2023 14:55:59 06/10/19 24 06/10/2023 COMPL ETE BLOOD COUNT W/DIF F absolute lymphocyte count 2.96 10_3/ uL 1.2-3. 4 normal Not Available [address] [place], [address] 06/10/2023 14:55:59 06/10/19 24 06/10/2023 COMPL ETE BLOOD COUNT W/DIF F absolute monocyte count 0.73 10_3/ uL 0.1-0. 8 normal Not Available [address] [place], [address] 06/10/2023 14:55:59 06/10/19 24 06/10/2023 COMPL ETE BLOOD COUNT W/DIF F absolute eosinophil count 0.47 10_3/ uL 0.0-0. 7 normal Not Available [address] [place], [address] 06/10/2023 14:55:59 06/10/19 24 06/10/2023 COMPL ETE BLOOD COUNT W/DIF F absolute basophil count 0.07 10_3/ uL 0.0-0. 2 normal Not Available [address] [place], [address] 06/10/2023 14:55:59 06/10/19 24 06/10/2023 LASIC METAB OLIC PANEL calcium 9.0 mg/dL 8.5-10 .1 normal Not Available [address] [place], [address] 06/10/2023 15:55:21 06/10/19 24 06/10/2023 LASIC METAB OLIC PANEL glucose 93 mg/dL 74-106 normal Not Available Alek luo [address] [place], [address] 06/10/2023 15:55:21 06/10/19 24 06/10/2023 LASIC METAB OLIC PANEL BUN 23 mg/dL 7-18 high Not Available Alek luo [address] [place], [address] 06/10/2023 15:55:21 06/10/19 24 06/10/2023 LASIC METAB OLIC PANEL creatinine 1.1 mg/dL 0.70-1 .30 normal Not Available [address] [place], [address] 06/10/2023 15:55:21 06/10/19 24 06/10/2023 LASIC METAB [...] young er-ag ed adult s. Not Available [address] [place], [address] 06/10/2023 15:55:21 06/10/19 24 06/10/2023 LASIC METAB OLIC PANEL sodium 143 mmol/ L 136-14 5 normal Not Available [address] [place], [address] 06/10/2023 15:55:21 06/10/19 24 06/10/2023 LASIC METAB OLIC PANEL potassium 4.5 mmol/ L 3.5-5. 1 normal Not Available [address] [place], [address] 06/10/2023 15:55:21 06/10/19 24 06/10/2023 LASIC METAB OLIC PANEL chloride 105 mmol/ L 98-107 normal Not Available [address] [place], [address] 06/10/2023 15:55:21 06/10/19 24 06/10/2023 LASIC METAB OLIC PANEL CO2 28.5 mmol/ L 21.0-3 2.0 normal Not Available [address] [place], [address] 06/10/2023 15:55:21 06/10/19 24 06/10/2023 LASIC METAB OLIC PANEL anion gap 9.5 mmol/ L 3-11 normal Not Available [address] [place], [address] 06/10/2023 15:55:21 06/10/19 24 06/10/2023 LASIC METAB OLIC PANEL calcium 9.0 mg/dL 8.5-10 .1 normal Not Available [address] [place], [address] 06/10/2023 16:16:20 06/10/19 24 06/10/2023 LASIC METAB OLIC PANEL glucose 93 mg/dL 74-106 normal Not Available Alek luo [address] [place], [address] 06/10/2023 16:16:20 06/10/19 24 06/10/2023 LASIC METAB OLIC PANEL BUN 23 mg/dL 7-18 high Not Available Alek luo [address] [place], [address] 06/10/2023 16:16:20 06/10/19 24 06/10/2023 LASIC METAB OLIC PANEL creatinine 1.1 mg/dL 0.70-1 .30 normal Not Available [address] [place], [address] 06/10/2023 16:16:20 06/10/19 24 06/10/2023 LASIC METAB [...] young er-ag ed adult s. Not Available [address] [place], [address] 06/10/2023 16:16:20 06/10/19 24 06/10/2023 LASIC METAB OLIC PANEL sodium 143 mmol/ L 136-14 5 normal Not Available [address] [place], [address] 06/10/2023 16:16:20 06/10/19 24 06/10/2023 LASIC METAB OLIC PANEL potassium 4.5 mmol/ L 3.5-5. 1 normal Not Available [address] [place], [address] 06/10/2023 16:16:20 06/10/19 24 06/10/2023 LASIC METAB OLIC PANEL chloride 105 mmol/ L 98-107 normal Not Available [address] [place], [address] 06/10/2023 16:16:20 06/10/19 24 06/10/2023 LASIC METAB OLIC PANEL CO2 28.5 mmol/ L 21.0-3 2.0 normal Not Available [address] [place], [address] 06/10/2023 16:16:20 06/10/19 24 06/10/2023 LASIC METAB OLIC PANEL anion gap 9.5 mmol/ L 3-11 normal Not Available [address] [place], [address] 06/10/2023 16:16:20 07/02/19 24 07/02/2023 MICRO SCOPI C FINDI NGS WBC 3-5 hpf 0-5 Not Available [facility] (Registration ) [address] [place] [address] [place], [address], 07/02/2023 16:56:52 07/02/19 24 07/02/2023 MICRO SCOPI C FINDI NGS RBC >50 hpf 0-2 abnormal Not Available [facility] (Registration ) [address] [place] [address] [place], [address], 07/02/2023 16:56:52 07/02/19 24 07/02/2023 MICRO SCOPI C FINDI NGS epithelial cells Rare hpf negati ve Not Available [facility] (Registration ) [address] [place] [address] [place] [facility] [place], [address], 07/02/2023 16:56:52 07/02/19 24 07/02/2023 MICRO SCOPI C FINDI NGS bacteria Few hpf negati ve Not Available [facility] (Registration ) [address] [place] [address] [place], [address], 07/02/2023 16:56:52 07/02/19 24 07/02/2023 MICRO SCOPI C FINDI NGS crystals Negati ve hpf negati ve Not Available [facility] (Registration ) [address] [place] [address] [place], [address], 07/02/2023 16:56:52 07/02/19 24 07/02/2023 MICRO SCOPI C FINDI NGS mucus Negati ve negati ve Not Available [facility] (Registration ) [address] [place] [address] [place], [address], 07/02/2023 16:56:52 07/02/19 24 07/02/2023 MICRO SCOPI C FINDI NGS casts Negati ve lpf negati ve Not Available [facility] (Registration ) [address] [place] [address] [place], [address], 07/02/2023 16:56:52 07/02/19 24 07/02/2023 MICRO SCOPI C FINDI NGS C S indicated? C S Done As Ordere d Not Available [facility] (Registration ) [address] [place] [address] [place], [address], 07/02/2023 16:56:52 07/02/19 24 07/03/2023 URINE CULTU RE urine culture Urine Cultu re ACTIO N ID AND SUSCE PTIBI LITY TO FOLLO W APPEA FARTUN Gram Negat marge Marcelle COLON Y COUNT Not Available [facility] (Registration ) [address] [place] [address] [place], [address], 07/03/2023 10:35:55 07/02/19 24 07/03/2023 URINE CULTU RE urine culture colon ies/m L >100, 000 Day 1 Resul t ISOLA VIKTORIA BELOW O:GNR (ORGA NISM ID: 1.1) - GRAM NEGAT MARGE MARCELLE Urine Cultu re (ORGA NISM ID: 1.1) - COLON Y COUNT (ORGA NISM ID: 1.1) - >100, 000 Not Available [facility] (Registration ) [address] [place] [address] [place], [address], 07/03/2023 10:35:55 07/02/19 24 07/04/2023 URINE CULTU RE urine culture Urine Cultu re ACTIO N ID AND SUSCE PTIBI LITY TO FOLLO W APPEA FARTUN Gram Negat marge Marcelle APPEA FARTUN Gram Negat marge Marcelle COLON Y COUNT Not Available [facility] (Registration ) [address] [place] [address] [place], [address], 07/04/2023 07:54:50 07/02/19 24 07/04/2023 URINE CULTU [...] zobac alvarez S <=4 F Not Available [facility] (Registration ) [address], [place], [address], 07/04/2023 07:54:50 07/02/19 24 07/02/2023 urina lysis , dipst ick pH 5.0 Not Available [address], [place], [address], 07/02/2023 12:04:05 07/02/19 24 07/02/2023 urina lysis , dipst ick Blood Large Not Available [address] [address], [place], [address], 07/02/2023 12:04:05 07/02/19 24 07/02/2023 urina lysis , dipst ick Specific [place] 1.030 Not Available [address] [address], [place], [address], 07/02/2023 12:04:05 07/02/19 24 07/02/2023 urina lysis , dipst ick Glucose Negati ve Not Available [address] [address], [place], [address], 07/02/2023 12:04:05 07/02/19 24 07/02/2023 urina lysis , dipst ick Appearance Turbid Not Available [address] [address], [place], [address], 07/02/2023 12:04:05 07/02/19 24 07/02/2023 urina lysis , dipst ick Color Red Not Available [address] [address], [place], [address], 07/02/2023 12:04:05 07/12/19 24 07/12/2023 COMPL ETE BLOOD COUNT W/DIF F WBC 7.26 10_3/ uL 4.4-10 .8 normal Not Available [address] [place], [address] 07/12/2023 11:00:35 07/12/19 24 07/12/2023 COMPL ETE BLOOD COUNT W/DIF F RBC 4.00 10_6/ uL 4.36-5 .78 low Not Available [address] [place], [address] 07/12/2023 11:00:35 07/12/19 24 07/12/2023 COMPL ETE BLOOD COUNT W/DIF F HGB 12.4 g/dL 13.5-1 7.5 low Not Available [address] [place], [address] 07/12/2023 11:00:35 07/12/19 24 07/12/2023 COMPL ETE BLOOD COUNT W/DIF F HCT 37.0 % 40.0-5 0.0 low Not Available [address] [place], [address] 07/12/2023 11:00:35 07/12/19 24 07/12/2023 COMPL ETE BLOOD COUNT W/DIF F MCV 93 fL 80-95 normal Not Available [address] [place], [address] 07/12/2023 11:00:35 07/12/19 24 07/12/2023 COMPL ETE BLOOD COUNT W/DIF F MCH 31.0 pg 27.0-3 3.0 normal Not Available [address] [place], [address] 07/12/2023 11:00:35 07/12/19 24 07/12/2023 COMPL ETE BLOOD COUNT W/DIF F MCHC 33.5 % 32.0-3 6.0 normal Not Available [address] [place], [address] 07/12/2023 11:00:35 07/12/19 24 07/12/2023 COMPL ETE BLOOD COUNT W/DIF F RDW 12.6 % 11.8-1 4.1 normal Not Available [address] [place], [address] 07/12/2023 11:00:35 07/12/19 24 07/12/2023 COMPL ETE BLOOD COUNT W/DIF F platelet count 359 10_3/ uL 130-40 0 normal Not Available [address] [place], [address] 07/12/2023 11:00:35 07/12/19 24 07/12/2023 COMPL ETE BLOOD COUNT W/DIF F MPV 8.3 fL 8.0-11 .0 normal Not Available [address] [place], [address] 07/12/2023 11:00:35 07/12/19 24 07/12/2023 COMPL ETE BLOOD COUNT W/DIF F neutrophils % 59.0 % Not Available [address] [place], [address] 07/12/2023 11:00:35 07/12/19 24 07/12/2023 COMPL ETE BLOOD COUNT W/DIF F lymphocytes % 30.0 % Not Available [address] [place], [address] 07/12/2023 11:00:35 07/12/19 24 07/12/2023 COMPL ETE BLOOD COUNT W/DIF F monocytes % 7.9 % Not Available [address] [place], [address] 07/12/2023 11:00:35 07/12/19 24 07/12/2023 COMPL ETE BLOOD COUNT W/DIF F eosinophils % 1.9 % Not Available [address] [place], [address] 07/12/2023 11:00:35 07/12/19 24 07/12/2023 COMPL ETE BLOOD COUNT W/DIF F basophils % 0.6 % Not Available [address] [place] [place], [address] 07/12/2023 11:00:35 07/12/19 24 07/12/2023 COMPL ETE BLOOD COUNT W/DIF F immature grans % 0.6 % Not Available Shayan bradford [address], [address] 07/12/2023 11:00:35 07/12/19 24 07/12/2023 COMPL ETE BLOOD COUNT W/DIF F nucleated RBC 0.0 % 0.0-0. 3 normal Not Available [address] [place], [address] 07/12/2023 11:00:35 07/12/19 24 07/12/2023 COMPL ETE BLOOD COUNT W/DIF F absolute neutrophil count 4.29 10_3/ uL 1.2-6. 7 normal Not Available [address] [place], [address] 07/12/2023 11:00:35 07/12/19 24 07/12/2023 COMPL ETE BLOOD COUNT W/DIF F absolute lymphocyte count 2.18 10_3/ uL 1.2-3. 4 normal Not Available [address] [place], [address] 07/12/2023 11:00:35 07/12/19 24 07/12/2023 COMPL ETE BLOOD COUNT W/DIF F absolute monocyte count 0.57 10_3/ uL 0.1-0. 8 normal Not Available [address] [place], [address] 07/12/2023 11:00:35 07/12/19 24 07/12/2023 COMPL ETE BLOOD COUNT W/DIF F absolute eosinophil count 0.14 10_3/ uL 0.0-0. 7 normal Not Available [address] [place], [address] 07/12/2023 11:00:35 07/12/19 24 07/12/2023 COMPL ETE BLOOD COUNT W/DIF F absolute basophil count 0.04 10_3/ uL 0.0-0. 2 normal Not Available [address] [place], [address] 07/12/2023 11:00:35 07/12/19 24 07/12/2023 URINA LYSIS color Yellow yellow Not Available Alek luo [address] [place], [address] 07/12/2023 11:06:35 07/12/19 24 07/12/2023 URINA LYSIS clarity Clear clear Not Available Alek luo [address], [address] 07/12/2023 11:06:35 07/12/19 24 07/12/2023 URINA LYSIS specific gravity >= 1.030 1.005- 1.025 high Not Available [address] [place], [address] 07/12/2023 11:06:35 07/12/19 24 07/12/2023 URINA LYSIS pH 5.5 5-8 normal Not Available Alek luo [address] [place], [address] 07/12/2023 11:06:35 07/12/19 24 07/12/2023 URINA LYSIS leukocyte esterase Negati ve negati ve Not Available [address] [place], [address] 07/12/2023 11:06:35 07/12/19 24 07/12/2023 URINA LYSIS nitrite Positi ve negati ve abnormal Not Available [address] [place], [address] 07/12/2023 11:06:35 07/12/19 24 07/12/2023 URINA LYSIS protein Negati ve mg/dL neg-tr jamila Not Available [address] [place], [address] 07/12/2023 11:06:35 07/12/19 24 07/12/2023 URINA LYSIS glucose Negati ve mg/dL negati ve Not Available [address] [place], [address] 07/12/2023 11:06:35 07/12/19 24 07/12/2023 URINA LYSIS ketones Negati ve mg/dL negati ve Not Available [address] [place], [address] 07/12/2023 11:06:35 07/12/19 24 07/12/2023 URINA LYSIS urobilinogen 0.2 mg/dL up to 0.2 Not Available [address] [place], [address] 07/12/2023 11:06:35 07/12/19 24 07/12/2023 URINA LYSIS bilirubin Negati ve negati ve Not Available [address] [place], [address] 07/12/2023 11:06:35 07/12/19 24 07/12/2023 URINA LYSIS blood Negati ve negati ve Not Available [address] [place], [address] 07/12/2023 11:06:35 07/12/19 24 07/12/2023 URINA LYSIS color Yellow yellow Not Available Alek luo [address] [place], [address] 07/12/2023 11:13:38 07/12/19 24 07/12/2023 URINA LYSIS clarity Clear clear Not Available Alek luo [address] [place], [address] 07/12/2023 11:13:38 07/12/19 24 07/12/2023 URINA LYSIS specific gravity >= 1.030 1.005- 1.025 high Not Available [address] [place], [address] 07/12/2023 11:13:38 07/12/19 24 07/12/2023 URINA LYSIS pH 5.5 5-8 normal Not Available Alek luo [address] [place], [address] 07/12/2023 11:13:38 07/12/19 24 07/12/2023 URINA LYSIS leukocyte esterase Negati ve negati ve Not Available [address] [place], [address] 07/12/2023 11:13:38 07/12/19 24 07/12/2023 URINA LYSIS nitrite Positi ve negati ve abnormal Not Available [address] [place], [address] 07/12/2023 11:13:38 07/12/19 24 07/12/2023 URINA LYSIS protein Negati ve mg/dL neg-tr jamila Not Available [address] [place], [address] 07/12/2023 11:13:38 07/12/19 24 07/12/2023 URINA LYSIS glucose Negati ve mg/dL negati ve Not Available [address] [place], [address] 07/12/2023 11:13:38 07/12/19 24 07/12/2023 URINA LYSIS ketones Negati ve mg/dL negati ve Not Available [address] [place], [address] 07/12/2023 11:13:38 07/12/19 24 07/12/2023 URINA LYSIS urobilinogen 0.2 mg/dL up to 0.2 Not Available [address] [place], [address] 07/12/2023 11:13:38 07/12/19 24 07/12/2023 URINA LYSIS bilirubin Negati ve negati ve Not Available [address] [place], [address] 07/12/2023 11:13:38 07/12/19 24 07/12/2023 URINA LYSIS blood Negati ve negati ve Not Available [address] [place], [address] 07/12/2023 11:13:38 07/12/19 24 07/12/2023 MICRO SCOPI C FINDI NGS WBC 5-10 hpf 0-5 Not Available Alek luo [address] [place], [address] 07/12/2023 11:13:38 07/12/19 24 07/12/2023 MICRO SCOPI C FINDI NGS RBC 0-2 hpf 0-2 Not Available Alek luo [address] [place], [address] 07/12/2023 11:13:38 07/12/19 24 07/12/2023 MICRO SCOPI C FINDI NGS epithelial cells Rare hpf negati ve Not Available [address] [place], [address] 07/12/2023 11:13:38 07/12/19 24 07/12/2023 MICRO SCOPI C FINDI NGS bacteria Few hpf negati ve Not Available [address] [place], [address] 07/12/2023 11:13:38 07/12/19 24 07/12/2023 MICRO SCOPI C FINDI NGS crystals Negati ve hpf negati ve Not Available [address] [place], [address] 07/12/2023 11:13:38 07/12/19 24 07/12/2023 MICRO SCOPI C FINDI NGS mucus Negati ve negati ve Not Available [address] [place], [address] 07/12/2023 11:13:38 07/12/19 24 07/12/2023 MICRO SCOPI C FINDI NGS casts Negati ve lpf negati ve Not Available [address] [place], [address] 07/12/2023 11:13:38 07/12/19 24 07/12/2023 MICRO SCOPI C FINDI NGS C S indicated? C S Done As Ordere d Not Available Cameron monk [address] [place], [address] 07/12/2023 11:13:38 07/12/19 24 07/12/2023 COMPR EHENS MARGE METAB OLIC PANEL calcium 9.0 mg/dL 8.5-10 .1 normal Not Available [address] [place], [address] 07/12/2023 11:22:39 07/12/19 24 07/12/2023 COMPR EHENS MARGE METAB OLIC PANEL glucose 112 mg/dL 74-106 high Not Available Alek luo [address] [place], [address] 07/12/2023 11:22:39 07/12/19 24 07/12/2023 COMPR EHENS MARGE METAB OLIC PANEL BUN 23 mg/dL 7-18 high Not Available Alek luo [address] [place], [address] 07/12/2023 11:22:39 07/12/19 24 07/12/2023 COMPR EHENS MARGE METAB OLIC PANEL creatinine 1.2 mg/dL 0.70-1 .30 normal Not Available [address] [place], [address] 07/12/2023 11:22:39 07/12/19 24 07/12/2023 COMPR EHENS [...] young er-ag ed adult s. Not Available [address] [place], [address] 07/12/2023 11:22:39 07/12/19 24 07/12/2023 COMPR EHENS MARGE METAB OLIC PANEL total protein 7.9 g/dL 6.4-8. 2 normal Not Available [address] [place], [address] 07/12/2023 11:22:39 07/12/19 24 07/12/2023 COMPR EHENS MARGE METAB OLIC PANEL albumin 3.7 g/dL 3.4-5. 0 normal Not Available [address] [place], [address] 07/12/2023 11:22:39 07/12/19 24 07/12/2023 COMPR EHENS MARGE METAB OLIC PANEL bilirubin, total 0.4 mg/dL 0.2-1. 0 normal Not Available [address] [place], [address] 07/12/2023 11:22:39 07/12/19 24 07/12/2023 COMPR EHENS MARGE METAB OLIC PANEL alk phos 76 U/L 46-116 normal Not Available [address] [place], [address] 07/12/2023 11:22:39 07/12/19 24 07/12/2023 COMPR EHENS MARGE METAB OLIC PANEL sodium 142 mmol/ L 136-14 5 normal Not Available [address] [place], [address] 07/12/2023 11:22:39 07/12/19 24 07/12/2023 COMPR EHENS MARGE METAB OLIC PANEL potassium 3.9 mmol/ L 3.5-5. 1 normal Not Available [address] [place], [address] 07/12/2023 11:22:39 07/12/19 24 07/12/2023 COMPR EHENS MARGE METAB OLIC PANEL chloride 106 mmol/ L 98-107 normal Not Available [address] [place], [address] 07/12/2023 11:22:39 07/12/19 24 07/12/2023 COMPR EHENS MARGE METAB OLIC PANEL CO2 25.1 mmol/ L 21.0-3 2.0 normal Not Available [address] [place], [address] 07/12/2023 11:22:39 07/12/19 24 07/12/2023 COMPR EHENS MARGE METAB OLIC PANEL anion gap 10.9 mmol/ L 3-11 normal Not Available [address] [place], [address] 07/12/2023 11:22:39 07/12/19 24 07/12/2023 COMPR EHENS MARGE METAB OLIC PANEL AST 24 U/L 15-37 normal Not Available Alek luo [address], [address] 07/12/2023 11:22:39 07/12/19 24 07/12/2023 COMPR EHENS MARGE METAB OLIC PANEL ALT 33 U/L 16-63 normal Not Available Alek luo [address] [place], [address] 07/12/2023 11:22:39 07/12/19 24 07/13/2023 URINE CULTU RE urine culture Urine Cultu re APPEA FARTUN Gram Posit marge [place] COLON Y COUNT Not Available [address] [place], [address] 07/13/2023 11:32:49 07/12/19 24 07/13/2023 URINE CULTU RE urine culture colon ies/m L <10,0 00 Day 1 Resul t ISOLA VIKTORIA BELOW O:GPF (ORGA NISM ID: 1.1) - GRAM POSIT MARGE RALEIGH Urine Cultu re (ORGA NISM ID: 1.1) - COLON Y COUNT (ORGA NISM ID: 1.1) - <10,0 00 Not Available [address] [place], [address] 07/13/2023 11:32:49 07/12/19 24 07/14/2023 URINE CULTU RE urine culture Urine Cultu re APPEA FARTUN Gram Posit marge [place] APPEA FARTUN Mixed Gram Posit marge [place] COLON Y COUNT Not Available [address] [place], [address] 07/14/2023 12:09:33 07/12/19 24 07/14/2023 URINE CULTU [...] ID: 1.1) - <10,0 00 Not Available [address] [facility] [place], [address] 07/14/2023 12:09:33 07/12/19 24 07/14/2023 PSA, ULTRA [...] ng metho d is an elect aimee milum inesc ence assay manuf actur ed by [facility] and perfo rmed on the Barrett syste m. Value s obtai radha with diffe rent assay metho ds or kits may be diffe rent and canno t be used inter domínguez eabl . Test resul ts canno t be inter prete d as absol [place] evide nce for the prese nce or absen ce of molly barbosa se. Test Perfo rmed by: [facility] [place] [address], [place] [address] Lab Direc tor: Hoang Cruz Ph.D. ; CLIA# [id number] Not Available [facility] [address] [place], [address] 07/18/2023 08:15:59 07/12/19 24 07/16/2023 TESTO STERO NE, TOTAL testosterone , total <7.0 NG/dL 240-95 0 abnormal ----- ----- ----- ----A DDITI ONAL INFOR MATIO N---- ----- ----- ----- Testi ng perfo rmed by Luisito verma Chrom atogr aphy- Tande m Mass Spect romet ry (LC-M S/MS) . This test was devel oped and its perfo rmanc e noemi cteri stics deter mined by [facility] in a abbi r consi stent with CLIA requi remen ts. This test has not been clear ed or appro joan by the U.S. Food and Drug Admin istra tion. Test Perfo rmed by: [facility] [place] [address] , [place] [address] Lab Direc tor: Hoang Cruz Ph.D. ; CLIA# [id number] Not Available [address] [place], [address] 07/18/2023 08:15:58 10/12/19 24 10/12/2023 COMPL ETE BLOOD COUNT W/DIF F WBC 6.95 10_3/ uL 4.4-10 .8 normal Not Available [address] [place], [address] 10/12/2023 10:43:11 10/12/19 24 10/12/2023 COMPL ETE BLOOD COUNT W/DIF F RBC 3.98 10_6/ uL 4.36-5 .78 low Not Available [address] [place], [address] 10/12/2023 10:43:11 10/12/19 24 10/12/2023 COMPL ETE BLOOD COUNT W/DIF F HGB 12.5 g/dL 13.5-1 7.5 low Not Available [address] [place], [address] 10/12/2023 10:43:11 10/12/19 24 10/12/2023 COMPL ETE BLOOD COUNT W/DIF F HCT 37.9 % 40.0-5 0.0 low Not Available [address] [place], [address] 10/12/2023 10:43:11 10/12/19 24 10/12/2023 COMPL ETE BLOOD COUNT W/DIF F MCV 95 fL 80-95 normal Not Available Alek luo [address] [place], [address] 10/12/2023 10:43:11 10/12/19 24 10/12/2023 COMPL ETE BLOOD COUNT W/DIF F MCH 31.4 pg 27.0-3 3.0 normal Not Available [address] [place], [address] 10/12/2023 10:43:11 10/12/19 24 10/12/2023 COMPL ETE BLOOD COUNT W/DIF F MCHC 33.0 % 32.0-3 6.0 normal Not Available [address] [place], [address] 10/12/2023 10:43:11 10/12/19 24 10/12/2023 COMPL ETE BLOOD COUNT W/DIF F RDW 13.0 % 11.8-1 4.1 normal Not Available [address] [place], [address] 10/12/2023 10:43:11 10/12/19 24 10/12/2023 COMPL ETE BLOOD COUNT W/DIF F platelet count 284 10_3/ uL 130-40 0 normal Not Available [address] [place], [address] 10/12/2023 10:43:11 10/12/19 24 10/12/2023 COMPL ETE BLOOD COUNT W/DIF F MPV 8.6 fL 8.0-11 .0 normal Not Available [address] [place], [address] 10/12/2023 10:43:11 10/12/19 24 10/12/2023 COMPL ETE BLOOD COUNT W/DIF F neutrophils % 56.1 % Not Available [address] [place], [address] 10/12/2023 10:43:11 10/12/19 24 10/12/2023 COMPL ETE BLOOD COUNT W/DIF F lymphocytes % 30.9 % Not Available [address] [place], [address] 10/12/2023 10:43:11 10/12/19 24 10/12/2023 COMPL ETE BLOOD COUNT W/DIF F monocytes % 8.6 % Not Available [address] [place], [address] 10/12/2023 10:43:11 10/12/19 24 10/12/2023 COMPL ETE BLOOD COUNT W/DIF F eosinophils % 3.7 % Not Available [address] [place] [place], [address] 10/12/2023 10:43:11 10/12/19 24 10/12/2023 COMPL ETE BLOOD COUNT W/DIF F basophils % 0.4 % Not Available [address] [place] [place], [address] 10/12/2023 10:43:11 10/12/19 24 10/12/2023 COMPL ETE BLOOD COUNT W/DIF F immature grans % 0.3 % Not Available [address] [place] [place], [address] 10/12/2023 10:43:11 10/12/19 24 10/12/2023 COMPL ETE BLOOD COUNT W/DIF F nucleated RBC 0.0 % 0.0-0. 3 normal Not Available [address] [place], [address] 10/12/2023 10:43:11 10/12/19 24 10/12/2023 COMPL ETE BLOOD COUNT W/DIF F absolute neutrophil count 3.89 10_3/ uL 1.2-6. 7 normal Not Available [address] [place], [address] 10/12/2023 10:43:11 10/12/19 24 10/12/2023 COMPL ETE BLOOD COUNT W/DIF F absolute lymphocyte count 2.15 10_3/ uL 1.2-3. 4 normal Not Available [address] [place], [address] 10/12/2023 10:43:11 10/12/19 24 10/12/2023 COMPL ETE BLOOD COUNT W/DIF F absolute monocyte count 0.60 10_3/ uL 0.1-0. 8 normal Not Available [address] [place], [address] 10/12/2023 10:43:11 10/12/19 24 10/12/2023 COMPL ETE BLOOD COUNT W/DIF F absolute eosinophil count 0.26 10_3/ uL 0.0-0. 7 normal Not Available [address] [place], [address] 10/12/2023 10:43:11 10/12/19 24 10/12/2023 COMPL ETE BLOOD COUNT W/DIF F absolute basophil count 0.03 10_3/ uL 0.0-0. 2 normal Not Available [address] [place], [address] 10/12/2023 10:43:11 10/12/19 24 10/12/2023 COMPR EHENS MARGE METAB OLIC PANEL calcium 9.1 mg/dL 8.5-10 .1 normal Not Available [address] [place], [address] 10/12/2023 12:11:27 10/12/19 24 10/12/2023 COMPR EHENS MARGE METAB OLIC PANEL glucose 113 mg/dL 74-106 high Not Available Alek luo [address] [place], [address] 10/12/2023 12:11:27 10/12/19 24 10/12/2023 COMPR EHENS MARGE METAB OLIC PANEL BUN 24 mg/dL 7-18 high Not Available Alek luo [address] [place], [address] 10/12/2023 12:11:27 10/12/19 24 10/12/2023 COMPR EHENS MARGE METAB OLIC PANEL creatinine 1.1 mg/dL 0.70-1 .30 normal Not Available [address] [place], [address] 10/12/2023 12:11:27 10/12/19 24 10/12/2023 COMPR EHENS [...] young er-ag ed adult s. Not Available [address] [place], [address] 10/12/2023 12:11:27 10/12/19 24 10/12/2023 COMPR EHENS MARGE METAB OLIC PANEL total protein 7.9 g/dL 6.4-8. 2 normal Not Available [address] [place], [address] 10/12/2023 12:11:27 10/12/19 24 10/12/2023 COMPR EHENS MARGE METAB OLIC PANEL albumin 3.9 g/dL 3.4-5. 0 normal Not Available [address] [place], [address] 10/12/2023 12:11:27 10/12/19 24 10/12/2023 COMPR EHENS MARGE METAB OLIC PANEL bilirubin, total 0.36 mg/dL 0.2-1. 0 normal Not Available [address] [place], [address] 10/12/2023 12:11:27 10/12/19 24 10/12/2023 COMPR EHENS MARGE METAB OLIC PANEL alk phos 97 U/L 46-116 normal Not Available [address] [place], [address] 10/12/2023 12:11:27 10/12/19 24 10/12/2023 COMPR EHENS MARGE METAB OLIC PANEL sodium 142 mmol/ L 136-14 5 normal Not Available [address] [place], [address] 10/12/2023 12:11:27 10/12/19 24 10/12/2023 COMPR EHENS MARGE METAB OLIC PANEL potassium 3.9 mmol/ L 3.5-5. 1 normal Not Available [address] [place], [address] 10/12/2023 12:11:27 10/12/19 24 10/12/2023 COMPR EHENS MARGE METAB OLIC PANEL chloride 104 mmol/ L 98-107 normal Not Available [address] [place], [address] 10/12/2023 12:11:27 10/12/19 24 10/12/2023 COMPR EHENS MARGE METAB OLIC PANEL CO2 29.7 mmol/ L 21.0-3 2.0 normal Not Available [address] [place], [address] 10/12/2023 12:11:27 10/12/19 24 10/12/2023 COMPR EHENS MARGE METAB OLIC PANEL anion gap 8.3 mmol/ L 3-11 normal Not Available [address] [place], [address] 10/12/2023 12:11:27 10/12/19 24 10/12/2023 COMPR EHENS MRAGE METAB OLIC PANEL AST 22 U/L 15-37 normal Not Available Alek luo [address] [place], [address] 10/12/2023 12:11:27 10/12/19 24 10/12/2023 COMPR EHENS MARGE METAB OLIC PANEL ALT 38 U/L 16-63 normal Not Available Alek [address] [place], [address] 10/12/2023 12:11:27 10/12/19 24 10/15/2023 PSA, ULTRA [...] ng metho d is an elect aimee milum inesc ence assay manuf actur ed by [facility] [facility] [employer] and perfo rmed on the Barrett syste m. Value s obtai radha with diffe rent assay metho ds or kits may be diffe rent and canno t be used inter domínguez eaumbertoy . Test resul ts canno t be inter prete d as absol [place] evide nce for the prese nce or absen ce of molly barbosa . Test Perfo rmed by: [facility] [place] [address], [place] [address] Lab Direc tor: Leroy Alegria nn Ph.D. ; CLIA# [id number] Not Available [address] [place], [address] 10/18/2023 16:45:07 10/12/19 24 10/18/2023 TESTO STERO NE, TOTAL testosterone , total 7.2 NG/dL 240-95 0 abnormal ----- ----- ----- ----A DDITI ONAL INFOR MATIO N---- ----- ----- ----- Testi ng perfo rmed by Luisito Rhoades atjhoan [place] m Mass Spect romet ry (LC-M S/MS) . This test was devel oped and its perfo rmanc e noemi cteri stics deter mined by [facility] c in a abbi r consi stent with CLIA miracle alvarez ts. This test has not been clear ed or appro joan by the U.S. Food and Drug Admin istra tion. Test Perfo rmed by: [facility] [place] [address], [place] [address] Lab Direc tor: Leroy Alegria nn Ph.D. ; CLIA# [id number] Not Available [address] [place], [address] 10/18/2023 16:45:06 09/14/11/19/2023 MICRO SCOPI C FINDI NGS WBC Negati ve hpf 0-5 Not Available [address] [place], [address] 11/19/2023 11:59:28 11/19/19 24 11/19/2023 MICRO SCOPI C FINDI NGS RBC 3-5 hpf 0-2 abnormal Not Available [address] [place], [address] 11/19/2023 11:59:28 11/19/19 24 11/19/2023 MICRO SCOPI C FINDI NGS epithelial cells Negati ve hpf negati ve Not Available [address] [place], [address] 11/19/2023 11:59:28 11/19/19 24 11/19/2023 MICRO SCOPI C FINDI NGS bacteria Negati ve hpf negati ve Not Available [address] [place], [address] 11/19/2023 11:59:28 11/19/19 24 11/19/2023 MICRO SCOPI C FINDI NGS crystals Negati ve hpf negati ve Not Available [address] [place], [address] 11/19/2023 11:59:28 11/19/19 24 11/19/2023 MICRO SCOPI C FINDI NGS mucus Negati ve negati ve Not Available [address] [place], [address] 11/19/2023 11:59:28 11/19/19 24 11/19/2023 MICRO SCOPI C FINDI NGS casts Negati ve lpf negati ve Not Available [address] [place], [address] 11/19/2023 11:59:28 11/19/19 24 11/19/2023 MICRO SCOPI C FINDI NGS C S indicated? No Not Available [address] [place], [address] 11/19/2023 11:59:28 11/19/19 24 11/19/2023 URINA LYSIS color Yellow yellow Not Available [facility] [address] [place], [address] 11/19/2023 11:59:28 11/19/19 24 11/19/2023 URINA LYSIS clarity Clear clear Not Available [facility] [address] [place], [address] 11/19/2023 11:59:28 11/19/19 24 11/19/2023 URINA LYSIS specific gravity 1.010 1.005- 1.025 normal Not Available [address] [place], [address] 11/19/2023 11:59:28 11/19/19 24 11/19/2023 URINA LYSIS pH 6.0 5-8 normal Not Available [facility] [address] [place], [address] 11/19/2023 11:59:28 11/19/19 24 11/19/2023 URINA LYSIS leukocyte esterase Negati ve negati ve Not Available [address] [place], [address] 11/19/2023 11:59:28 11/19/19 24 11/19/2023 URINA LYSIS nitrite Negati ve negati ve Not Available [address] [place], [address] 11/19/2023 11:59:28 11/19/19 24 11/19/2023 URINA LYSIS protein Negati ve mg/dL neg-tr jamila Not Available [address] [place], [address] 11/19/2023 11:59:28 11/19/19 24 11/19/2023 URINA LYSIS glucose Negati ve mg/dL negati ve Not Available [address] [place], [address] 11/19/2023 11:59:28 11/19/19 24 11/19/2023 URINA LYSIS ketones Negati ve mg/dL negati ve Not Available [address] [place], [address] 11/19/2023 11:59:28 11/19/19 24 11/19/2023 URINA LYSIS urobilinogen 0.2 mg/dL up to 0.2 Not Available [address] [place], [address] 11/19/2023 11:59:28 11/19/19 24 11/19/2023 URINA LYSIS bilirubin Negati ve negati ve Not Available [address] [place], [id number] 11/19/2023 11:59:28 11/19/19 24 11/19/2023 URINA LYSIS blood Trace- intact negati ve abnormal Not Available [address] [place], [address] 11/19/2023 11:59:28 11/19/19 24 11/19/2023 URINA LYSIS color Yellow yellow Not Available [facility] [address] [place], [address] 11/19/2023 11:52:27 11/19/19 24 11/19/2023 URINA LYSIS clarity Clear clear Not Available [facility] [address] [place] [place], [address] 11/19/2023 11:52:27 11/19/19 24 11/19/2023 URINA LYSIS specific gravity 1.010 1.005- 1.025 normal Not Available [address] [place], [address] 11/19/2023 11:52:27 11/19/19 24 11/19/2023 URINA LYSIS pH 6.0 5-8 normal Not Available Alek luo [address] [place], [address] 11/19/2023 11:52:27 11/19/19 24 11/19/2023 URINA LYSIS leukocyte esterase Negati ve negati ve Not Available [address] [place], [address] 11/19/2023 11:52:27 11/19/19 24 11/19/2023 URINA LYSIS nitrite Negati ve negati ve Not Available [address] [place], [address] 11/19/2023 11:52:27 11/19/19 24 11/19/2023 URINA LYSIS protein Negati ve mg/dL neg-tr jamila Not Available [address] [place], [address] 11/19/2023 11:52:27 11/19/19 24 11/19/2023 URINA LYSIS glucose Negati ve mg/dL negati ve Not Available [address] [place], [address] 11/19/2023 11:52:27 11/19/19 24 11/19/2023 URINA LYSIS ketones Negati ve mg/dL negati ve Not Available [address] [place], [address] 11/19/2023 11:52:27 11/19/19 24 11/19/2023 URINA LYSIS urobilinogen 0.2 mg/dL up to 0.2 Not Available [address] [place], [address] 11/19/2023 11:52:27 11/19/19 24 11/19/2023 URINA LYSIS bilirubin Negati ve negati ve Not Available [address] [place], [address] 11/19/2023 11:52:27 11/19/19 24 11/19/2023 URINA LYSIS blood Trace- intact negati ve abnormal Not Available [address] [place], [address] 11/19/2023 11:52:27 11/19/19 24 11/19/2023 COMPR EHENS MARGE METAB OLIC PANEL calcium 9.4 mg/dL 8.5-10 .1 normal Not Available [address] [place], [address] 11/19/2023 09:58:13 11/19/19 24 11/19/2023 COMPR EHENS MARGE METAB OLIC PANEL glucose 133 mg/dL 74-106 high Not Available Alek luo [address], [address] 11/19/2023 09:58:13 11/19/19 24 11/19/2023 COMPR EHENS MARGE METAB OLIC PANEL BUN 23 mg/dL 7-18 high Not Available Alek luo [address], [address] 11/19/2023 09:58:13 11/19/19 24 11/19/2023 COMPR EHENS MARGE METAB OLIC PANEL creatinine 1.0 mg/dL 0.70-1 .30 normal Not Available [address] [place], [address] 11/19/2023 09:58:13 11/19/19 24 11/19/2023 COMPR EHENS MARGE METAB OLIC PANEL estimated GFR 78.49 mL/min /1.73M 2 The eGFR is calcu lated from [...] young er-ag ed adult s. Not Available [address] [place], [address] 11/19/2023 09:58:13 11/19/19 24 11/19/2023 COMPR EHENS MARGE METAB OLIC PANEL total protein 8.0 g/dL 6.4-8. 2 normal Not Available [address] [place], [address] 11/19/2023 09:58:13 11/19/19 24 11/19/2023 COMPR EHENS MARGE METAB OLIC PANEL albumin 3.6 g/dL 3.4-5. 0 normal Not Available [address] [place], [address] 11/19/2023 09:58:13 11/19/19 24 11/19/2023 COMPR EHENS MARGE METAB OLIC PANEL bilirubin, total 0.37 mg/dL 0.2-1. 0 normal Not Available [address] [place], [address] 11/19/2023 09:58:13 11/19/19 24 11/19/2023 COMPR EHENS MARGE METAB OLIC PANEL alk phos 105 U/L 46-116 normal Not Available [address] [place], [address] 11/19/2023 09:58:13 11/19/19 24 11/19/2023 COMPR EHENS MARGE METAB OLIC PANEL sodium 142 mmol/ L 136-14 5 normal Not Available [address] [place], [address] 11/19/2023 09:58:13 11/19/19 24 11/19/2023 COMPR EHENS MARGE METAB OLIC PANEL potassium 4.0 mmol/ L 3.5-5. 1 normal Not Available [address] [place], [address] 11/19/2023 09:58:13 11/19/1911/19/2023 COMPR EHENS MARGE METAB OLIC PANEL chloride 106 mmol/ L 98-107 normal Not Available [address] [place], [address] 11/19/2023 09:58:13 11/19/19 24 11/19/2023 COMPR EHENS MARGE METAB OLIC PANEL CO2 27.8 mmol/ L 21.0-3 2.0 normal Not Available [address] [place], [address] 11/19/2023 09:58:13 11/19/19 24 11/19/2023 COMPR EHENS MARGE METAB OLIC PANEL anion gap 8.2 mmol/ L 3-11 normal Not Available [address] [place], [address] 11/19/2023 09:58:13 11/19/19 24 11/19/2023 COMPR EHENS MARGE METAB OLIC PANEL AST 36 U/L 15-37 normal Not Available Alek luo [address], [address] 11/19/2023 09:58:13 11/19/19 24 11/19/2023 COMPR EHENS MARGE METAB OLIC PANEL ALT 44 U/L 16-63 normal Not Available Alek luo [address], [address] 11/19/2023 09:58:13 11/19/19 24 11/19/2023 COMPL ETE BLOOD COUNT W/DIF F WBC 8.69 10_3/ uL 4.4-10 .8 normal Not Available [address] [place], [address] 11/19/2023 09:41:13 11/19/19 24 11/19/2023 COMPL ETE BLOOD COUNT W/DIF F RBC 3.86 10_6/ uL 4.36-5 .78 low Not Available [address] [place], [address] 11/19/2023 09:41:13 11/19/19 24 11/19/2023 COMPL ETE BLOOD COUNT W/DIF F HGB 12.1 g/dL 13.5-1 7.5 low Not Available [address] [place], [address] 11/19/2023 09:41:13 11/19/19 24 11/19/2023 COMPL ETE BLOOD COUNT W/DIF F HCT 36.2 % 40.0-5 0.0 low Not Available [address] [place], [address] 11/19/2023 09:41:13 11/19/19 24 11/19/2023 COMPL ETE BLOOD COUNT W/DIF F MCV 94 fL 80-95 normal Not Available [address] [place], [address] 11/19/2023 09:41:13 11/19/19 24 11/19/2023 COMPL ETE BLOOD COUNT W/DIF F MCH 31.3 pg 27.0-3 3.0 normal Not Available [address] [place], [address] 11/19/2023 09:41:13 11/19/19 24 11/19/2023 COMPL ETE BLOOD COUNT W/DIF F MCHC 33.4 % 32.0-3 6.0 normal Not Available [address] [place], [address] 11/19/2023 09:41:13 11/19/19 24 11/19/2023 COMPL ETE BLOOD COUNT W/DIF F RDW 12.7 % 11.8-1 4.1 normal Not Available [address] [place], [address] 11/19/2023 09:41:13 11/19/1911/19/2023 COMPL ETE BLOOD COUNT W/DIF F platelet count 339 10_3/ uL 130-40 0 normal Not Available [address] [place], [address] 11/19/2023 09:41:13 11/19/19 24 11/19/2023 COMPL ETE BLOOD COUNT W/DIF F MPV 8.3 fL 8.0-11 .0 normal Not Available [address] [place], [address] 11/19/2023 09:41:13 11/19/1911/19/2023 COMPL ETE BLOOD COUNT W/DIF F neutrophils % 64.7 % Not Available [address] [place], [address] 11/19/2023 09:41:13 11/19/19 24 11/19/2023 COMPL ETE BLOOD COUNT W/DIF F lymphocytes % 22.0 % Not Available [address] [place], [address] 11/19/2023 09:41:13 11/19/19 24 11/19/2023 COMPL ETE BLOOD COUNT W/DIF F monocytes % 9.7 % Not Available [address] [place], [address] 11/19/2023 09:41:13 11/19/19 24 11/19/2023 COMPL ETE BLOOD COUNT W/DIF F eosinophils % 2.5 % Not Available [address] [place], [address] 11/19/2023 09:41:13 11/19/1911/19/2023 COMPL ETE BLOOD COUNT W/DIF F basophils % 0.5 % Not Available [address] [place], [address] 11/19/2023 09:41:13 11/19/19 24 11/19/2023 COMPL ETE BLOOD COUNT W/DIF F immature grans % 0.6 % Not Available Shayan bradford [address], [address] 11/19/2023 09:41:13 11/19/19 24 11/19/2023 COMPL ETE BLOOD COUNT W/DIF F nucleated RBC 0.0 % 0.0-0. 3 normal Not Available [address] [place], [address] 11/19/2023 09:41:13 11/19/19 24 11/19/2023 COMPL ETE BLOOD COUNT W/DIF F absolute neutrophil count 5.63 10_3/ uL 1.2-6. 7 normal Not Available [address] [place], [address] 11/19/2023 09:41:13 11/19/19 24 11/19/2023 COMPL ETE BLOOD COUNT W/DIF F absolute lymphocyte count 1.91 10_3/ uL 1.2-3. 4 normal Not Available [address] [place], [address] 11/19/2023 09:41:13 11/19/19 24 11/19/2023 COMPL ETE BLOOD COUNT W/DIF F absolute monocyte count 0.84 10_3/ uL 0.1-0. 8 high Not Available [address] [place], [address] 11/19/2023 09:41:13 11/19/19 24 11/19/2023 COMPL ETE BLOOD COUNT W/DIF F absolute eosinophil count 0.22 10_3/ uL 0.0-0. 7 normal Not Available [address] [place], [address] 11/19/2023 09:41:13 11/19/19 24 11/19/2023 COMPL ETE BLOOD COUNT W/DIF F absolute basophil count 0.04 10_3/ uL 0.0-0. 2 normal Not Available [address] [place], [address] 11/19/2023 09:41:13 11/19/19 24 11/19/2023 URINA LYSIS color Yellow yellow Not Available Alek luo [address] [place], [address] 11/19/2023 09:40:12 11/19/19 24 11/19/2023 URINA LYSIS clarity Clear clear Not Available Alek luo [address] [place], [address] 11/19/2023 09:40:12 11/19/19 24 11/19/2023 URINA LYSIS specific gravity 1.015 1.005- 1.025 normal Not Available [address] [place], [address] 11/19/2023 09:40:12 11/19/19 24 11/19/2023 URINA LYSIS pH 6.0 5-8 normal Not Available Alek luo [address], [address] 11/19/2023 09:40:12 11/19/19 24 11/19/2023 URINA LYSIS leukocyte esterase Negati ve negati ve Not Available [address] [place], [address] 11/19/2023 09:40:12 11/19/19 24 11/19/2023 URINA LYSIS nitrite Negati ve negati ve Not Available [address] [place], [address] 11/19/2023 09:40:12 11/19/19 24 11/19/2023 URINA LYSIS protein Negati ve mg/dL neg-tr jamila Not Available [address] [place], [address] 11/19/2023 09:40:12 11/19/19 24 11/19/2023 URINA LYSIS glucose Negati ve mg/dL negati ve Not Available [address] [place], [address] 11/19/2023 09:40:12 11/19/19 24 11/19/2023 URINA LYSIS ketones Negati ve mg/dL negati ve Not Available [address] [place], [address] 11/19/2023 09:40:12 11/19/19 24 11/19/2023 URINA LYSIS urobilinogen 0.2 mg/dL up to 0.2 Not Available [address] [place], [address] 11/19/2023 09:40:12 11/19/19 24 11/19/2023 URINA LYSIS bilirubin Negati ve negati ve Not Available [address] [place], [address] 11/19/2023 09:40:12 11/19/19 24 11/19/2023 URINA LYSIS blood Negati ve negati ve Not Available [address] [place], [address] 11/19/2023 09:40:12 04/04/19 24 04/01/2023 elect avani sy am EKG GUILLE De La Rosa NAME: Nain Mckeon UNIT #: [id number] ORDERI NG PROVID ER: Carie Arguello M.D. ACCOUN T #: [id number] PRIMAR Y [facility] ER: ELIZABETH MUNOZ, DEWAYNE /T JAYANT OF SERVIC E : 1750 : 1950 PERFOR NATO LOCATI ON: ER ------ ------ --- APPROV ED REPORT ------ ------ -- Exam: Restin g ECG Reason for Exam: Dizzin ess Guille de la rosa Locati on: E HR:96 bpm ECG Measur ements Heart Rate 96 AXIS CA 145 P 58 QRSd 97 QRS 56 QT 369 T 5 QTc 467 Conclu isabella Sinus rhythm ...nor mal P axis, V-rate 60- 99 ------ ------ ------ ------ ------ ------ ------ ------ ------ ------ ------ ------ ------ ------ ------ ------ ---- ------ - E-Sign Date: E-Sign Time: 175 ------ ------ --- ADDEND UM APPROV ED REPORT ------ ------ -- Exam: Restin g ECG Reason for Exam: Dizzin ess Patidashawn t Locati on: E HR:96 bpm ECG Measur ements Heart Rate 96 AXIS CA 145 P 58 QRSd 97 QRS 56 QT 369 T 5 QTc 467 Conclu isabella Sinus rhythm ...nor mal P axis, V-rate 60- 99 I have review ed and I agree with the emerge ncy room physic fidel's ECG interp retati on. Electr onical ly signed by: [id number] Cosign ed by: aurelio [facility] [address] [place], [address] 04/04/2023 17:10:23 11/19/19 24 11/19/2023 vrad repor rj de la rosa Name: Nain Mckeon Unit #: [id number] Loc: ER Orderi ng Provid er: Accoun t #: [id number] Status : REG ER Primar y Care Provid er: Chet Johnson M.D. Date of Exam: Sex: M : 1950 Age: 73 Exam(s ) PROCED URE INFORM ATION: Exam: CT Abdome n And Pelvis With Contra st Exam date and time: 024 11:08 AM Age: 73 years old Clinic al indica tion: Other: Urinar y freque ncy, rectal urgenc y, HX prosta te CA; Prior surger y; Surger y date: 6+ months ; Surger y type: Append ectomy choley sectom y TECHNI QUE: Imagin g protoc ol: Comput ed tomogr aphy of the abdome n and pelvis with contra st. Contra st materi al: OMNIPA QUE 350; Contra st volume : 85 ml; Contra st route: INTRAV ENOUS (IV); COMPAR ROSITA: CT ABDOME N PELVIS W 020 9:43 AM FINDIN GS: Liver: Normal . No mass. Gallbl adder and biliar y ducts: Post cholec ystect alton. Pancre as: Normal . No ductal dilati on. Spleen : Normal . No spleno megaly . Adrena l glands : Normal . No mass. Kidney s and ureter s: Normal . No hydron ephros is. Stomac h and bowel: Unrema rkable . No obstru ction. No mucosa l thicke wendy. Append ix: Post append ectomy . Intrap eriton eal space: Unrema rkable . No free air. No signif icant fluid collec tion. Vascul ature: Vascul ar calcif icatio ns. Lymph nodes: Unrema rkable . No enlarg ed lymph nodes. Urinar y bladde r: Over disten ded bladde r. Reprod uctive : Surgic al clips in the prosta te gland. Bones/ joints : Mild degene rative of both hip joints and symphy sis pubis. Mild retrol isthes is of L2 over L3. Soft tissue s: Fat contai wendy umbili joao hernia . Subcut aneous anteri or lower abdomi nal wall fat strand ing, from prior inject ions. IMPRES ISABELLA: No acute intra- abdomi nal proces s. Dictat ed and Authen ticate d by: Dolores Albarran. Orderi ng:P.S [facility]. Victorino Torres MD Access ion#=[id number] Ordere d By: CC: ------ ------ ------ ------ ------ ------ ------ ------ ------ ------ ------ ------ ---- Dictat ed By: Report s vrad 1108 1128 Transc ribed By: Olivia Merge 1108 This is privil eged, confid ential inform ation intend ed only for the provid er named. Any use or distri bution by any person other than this provid er is strict ly prohib ited. If you receiv e this report in error, please notify us immedi pepperly at and return the origin al report to us at the addres s above. Thank- you. [facility] [address] [place], [address] 11/29/2023 07:52:53 11/19/19 24 11/19/2023 CT imagi ng repor t Guille t Name: Nain Mckeon Unit #: [id number] Loc: ER Orderi ng Provid er: Grant Miguel M.D. Accoun t #: [id number] Status : REG ER Primar y Care Provid er: Chet Johnson M.D. Date of Exam: Sex: M : 1950 Age: 73 Exam(s ) a CT:CT abdome n pelvis w Exam(s ) CT ABDOME N PELVIS W EXAM: CT ABDOME N PELVIS W CLINIC AL HISTOR Y: Urinar y freque ncy, rectal urgenc y, hx prosta te ca. TECHNI QUE: Imagin g Protoc ol: Axial comput ed tomogr aphy images with carrillo l and sagitt al reform atted images were create d and review ed CONTRA ST MATERI AL: Intrav enous: Omnipa que [address] volume : ml Oral: / no COMPAR ROSITA: CT CT ABDOME N PELVIS W from 2019 FINDIN GS: ABDOME N and PELVIS : Lung Bases: No acute findin gs. Liver: Normal densit y. No suspic ious mass. Gallbl adder and biliar y tract: Status post cholec ystect alton. No biliar y dilati on. Pancre as: Normal densit y. No abnorm al calcif icatio ns or inflam matory proces s. No eviden ce of mass. Spleen : Normal . Kidney s: Normal size, contou r and axis. No radiod ense stones . No obstru ctive uropat hy. No suspic ious masses seen. Adrena l glands : No masses seen. Vascul ature: Abdomi nal aorta non-di lated. Soft tissue s: Bilate ral areas of focal increa sed densit y in the anteri or abdomi nal wall fat consis tent with inject ion sites. Bladde r: Helena disten ded, to the level of the umbili cus. No gross wall thicke wendy. No calcul i.No focal mass. Bowel: No obstru ction. No bowel wall thicke wendy. Append ix normal . Perito aurea cavity : No ascite s. No focal collec tion. No mesent brody inflam matory respon se. Bones: Wallace ioma in L1 verteb ral body. No suspic ious lytic or blasti c lesion s. Reprod uctive organs : Prosta te slight ly enlarg ed. Metall ic densit ies in prosta te Lymph nodes: No pathol ogical ly enlarg ed lymph nodes. IMPRES ISABELLA:: Helena disten ded urinar y bladde r. No focal bladde r mass or calcif icatio n. Slight ly enlarg ed prosta te with radiot herapy seeds in place. RADIAT ION DOSE DELIVE RED: Total DLP DATA REPOSI TORY: [facility] al Radiol ogy Data Regist ry (NRDR) Dose Index Regist ry (DIR) with the [place] [employer] of Radiol ogy (ACR). RADIAT ION OPTIMI ZATION : [facility] use at least one of these dose optimi zation techni ques: automa nadia exposu re contro l; mA and/or kV adjust ment per patien t size (inclu collette target ed exams where dose is matche d to clinic al indica tion); or iterat marge recons tructi on. 005: Total DLP = 0.00 mGy-cm Ordere d By: Grant Miguel M.D. CC: ------ ------ ------ ------ ------ ------ ------ ------ ------ ------ ------ ------ ---- Dictat ed By: Saroj Chau 121 121 Transc ribed By: Nancie Henderson 121 This is privil eged, confid ential inform ation intend ed only for the provid er named. Any use or distri bution by any person other than this provid er is strict ly prohib ited. If you receiv e this report in error, please notify us immedi ately at [phone] and return the origin al report to us at the addres s above. Thank- you. aurelio [facility] [address] [place], [address] 12/21/2023 14:34:38 11/21/19 24 11/19/2023 CT imagi ng repor t Patien t Name: Nain Mckeon Unit #: [id number] Loc: ER Orderi ng Provid er: Grant Miguel M.D. Accoun t #: [id number] Status : DEP ER Primar y Care Provid er: Chet Johnson M.D. Date of Exam: Sex: M : 1950 Age: 73 Exam(s ) a CT:CT abdome n pelvis w Exam(s ) CT ABDOME N PELVIS W EXAM: CT ABDOME N PELVIS W CLINIC AL HISTOR Y: Urinar y freque ncy, rectal urgenc y, hx prosta te ca. TECHNI QUE: Imagin g Protoc ol: Axial comput ed tomogr aphy images with carrillo l and sagitt al reform atted images were create d and review ed CONTRA ST MATERI AL: Intrav enous: Omnipa que [address] volume : ml Oral: / no COMPAR ROSITA: CT CT ABDOME N PELVIS W from 2019 FINDIN GS: ABDOME N and PELVIS : Lung Bases: No acute findin gs. Liver: Normal densit y. No suspic ious mass. Gallbl adder and biliar y tract: Status post cholec ystect alton. No biliar y dilati on. Pancre as: Normal densit y. No abnorm al calcif icatio ns or inflam matory proces s. No eviden ce of mass. Spleen : Normal . Kidney s: Normal size, contou r and axis. No radiod ense stones . No obstru ctive uropat hy. No suspic ious masses seen. Adrena l glands : No masses seen. Vascul ature: Abdomi nal aorta non-di lated. Soft tissue s: Bilate ral areas of focal increa sed densit y in the anteri or abdomi nal wall fat consis tent with inject ion sites. Bladde r: Helena disten ded, to the level of the umbili cus. No gross wall thicke wendy. No calcul i.No focal mass. Bowel: No obstru ction. No bowel wall thicke wendy. Append ix normal . Perito aurea cavity : No ascite s. No focal collec tion. No mesent brody inflam matory respon se. Bones: Wallace ioma in L1 verteb ral body. No suspic ious lytic or blasti c lesion s. Reprod uctive organs : Prosta te slight ly enlarg ed. Metall ic densit ies in prosta te Lymph nodes: No pathol ogical ly enlarg ed lymph nodes. IMPRES ISABELLA:: Helena disten ded urinar y bladde r. No focal bladde r mass or calcif icatio n. Slight ly enlarg ed prosta te with radiot herapy seeds in place. RADIAT ION DOSE DELIVE RED: Total DLP DATA REPOSI TORY: [facility] nadia to the [facility] al Radiol ogy Data Regist ry (NRDR) Dose Index Regist ry (DIR) with the [place] [employer] of Radiol ogy (ACR). RADIAT ION OPTIMI ZATION : [facility] use at least one of these dose optimi zation techni ques: automa nadia exposu re contro l; mA and/or kV adjust ment per patien t size (inclu collette target ed exams where dose is matche d to clinic al indica tion); or iterat marge recons tructi on. 005: Total DLP = 0.00 mGy-cm Ordere d By: Grant Miguel M.D. CC: ------ ------ ------ ------ ------ ------ ------ ------ ------ ------ ------ ------ ---- Dictat ed By: Saroj Chau 1210 1210 Transc ribed By: Santiago Nancie e 1210 This is privil eged, confid ential inform [...] the addres s above. Thank- you. aurelio [facility] [address], [place], [address] 12/21/2023 14:33:35 11/21/19 24 04/27/2019 imagi ng/di agnos tic resul t No observ ation record ed. [email or web address] Not Available 11/20 19:18:09 11/21/19 24 02/08/2022 imagi ng/di agnos tic resul t No observ ation record ed. [email or web address] Not Available 11/20 19:18:11 11/21/19 24 01/29/2019 imagi ng/di agnos tic resul t No observ ation record ed. [email or web address] Not Available 11/20 19:18:12 11/21/19 24 10/23/2019 imagi ng/di agnos tic resul t No observ ation record ed. [email or web address] Not Available 11/20 19:20:04 11/21/19 24 04/11/2019 imagi ng/di agnos tic resul t No observ ation record ed. [email or web address] Not Available 11/20 19:21:26 11/21/19 24 02/22/2022 imagi ng/di agnos tic resul t No observ ation record ed. [email or web address] Not Available 11/20 19:21:27 11/21/19 24 03/26/2022 imagi ng/di agnos tic resul t No observ ation record ed. [email or web address] Not Available 11/20 19:21:28 11/21/19 24 01/25/2022 imagi ng/di agnos tic resul t No observ ation record ed. [email or web address] Not Available 11/20 19:21:29 11/21/19 24 02/08/2022 imagi ng/di agnos tic resul t No observ ation record ed. [email or web address] Not Available 11/20 19:21:30 11/21/19 24 02/10/2022 imagi ng/di agnos tic resul t No observ ation record ed. [email or web address] Not Available 11/20 19:21:31 11/21/19 24 04/11/2019 imagi ng/di agnos tic resul t No observ ation record ed. [email or web address] Not Available 11/20 19:21:49 Result Notes None recorded. Problems Name Problem SNOMED Code Status Onset Date Resolution Date Notes Provider Name and Address Organization Details Recorded Time Bipolar II disorder 56486792 Active 200209/20/19 18 - Comments only - [...] He will follow up with his mental [facility] provider before making any other changes in his medicati on. Problem Code: F31.81; Problem Code Type: ICD-10; MD [address], [place], [address] , [facility] 4 13:24:43 Psoriasi s 7264629 Active 2001 Problem Code: L40.9; Problem Code Type: ICD-10; MD [address], [place], [address] , [facility]. 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 2020 Problem Code: R73.03; Problem Code Type: ICD-10; MD Joe [address], [facility] [id number] [facility] 4 13:24:34 Screenin g for malignan t neoplasm of colon Completed 202002/18/2021 Problem Code: Z12.11; Problem Code Type: ICD-10; Not Available Formerly [facility] 3 04:02:01 Insomnia [id number] Active 2021 Problem Code: G47.00; Problem Code Type: ICD-10; JOHNNIE WHITEHEAD MA null, [facility] 3 09:57:48 Adult health examinat ion Active 2021 Problem Code: Z00.00; Problem Code Type: ICD-10; DEWAYNE JOHNSON MD [address], [facility] [id number] [place], [place] [address] 4 13:24:20 Pain of toe of right foot [id number] 9101 Completed 202107/17/2021 Problem Code: M79.674; Problem Code Type: ICD-10; Not Available [facility] 3 04:02:02 Closed fracture of distal end of radius 58191847 Completed 202104/27/2022 Problem Code: S52.572A ; Problem Code Type: ICD-10; Not Available [facility] 3 04:02:02 Pre-surg arnie evaluati on Completed 202207/02/2022 Problem Code: Z01.818; Problem Code Type: ICD-10; Not Available [facility] 3 04:02:02 Bipolar disorder 29214871 Completed 200212/01/2022 Problem Code: 296.80; Problem Code Type: ICD-9; Not Available [facility] 3 04:02:11 Therapeu tic drug monitori ng assay 47382925 Completed 201505/29/2021 Problem Code: Z51.81; Problem Code Type: ICD-10; Not Available [facility] 3 04:02:11 Pain of left wrist 81796459996 9102 Completed 202102/15/2022 Problem Code: M25.532; Problem Code Type: ICD-10; Not Available [facility] 3 04:02:11 Pain of left elbow joint 84321166390 348202 Completed 201905/27/2020 Problem Code: M25.522; Problem Code Type: ICD-10; Not Available [facility] 3 04:02:12 Christo hematuri a 661649772 Completed 201605/13/2016 Problem Code: R31.0; Problem Code Type: ICD-10; Not Available [facility] 3 04:02:13 Prostate nodule 33033155074 9109 Completed 201612/01/2022 Problem Code: N40.2; Problem Code Type: ICD-10; Not Available [facility] 3 04:02:13 Lacerati on of lip 627706299 Completed 202012/02/2020 Problem Code: S01.511A ; Problem Code Type: ICD-10; Not Available [facility] 3 04:02:14 Bleeding from nose 613064212 Completed 201802/05/2020 Problem Code: R04.0; Problem Code Type: ICD-10; Not Available [facility] 3 04:02:14 Contusio n of head 453859276 Completed 202012/02/2020 Problem Code: S00.83xA ; Problem Code Type: ICD-10; Not Available [facility] 3 04:02:14 Lesion of oral mucosa 90845973171 93450 Completed 201912/02/2020 Problem Code: K13.79; Problem Code Type: ICD-10; Not Available [facility] 3 04:02:14 Subungua l hematoma of foot 451365587 Completed 202205/11/[address], [place], [address] , [facility]. 4 13:24:53 Ingrowin g toenail 830145818 Completed 202305/11/[address], [place], [address] , [facility] 13:25:10 Epidermo id cyst of skin 984390801 Completed 202305/15/[address], [facility] [address] , [facility] 19:01:09 Allergic rhinitis 13496932 Active [address], [facility] [address] , [facility] 13:24:22 Tension- type headache 476207050 Active [address], [facility] [address] , [facility] 21:05:07 Disorder of vision 39938929 Completed 202305/15/[address], [facility] [address] , [facility] 19:01:05 Dental abscess 180120303 Active [address], [facility] [address] , [facility] 13:17:37 Blood in urine 74553988 Active [address], [facility] [address] , [facility] 14:03:17 Unsteady when walking 95850468 Active [address], [place], [address] , [facility] 15:05:09 Constipa tion 61093006 [facility] 09:28:01 Retentio n of urine 553790683 [facility] 4 10:45:13 Catheter ization of urinary bladder by indwelli ng suprapub ic catheter Active 2023 DEWAYNE JOHNSON MD [facility] [address], [place], [address] [facility] 4 20:37:38 Problem Notes Documentation Provider Name and Address Organization Details Recorded Time Progress Note : Progress Notes PATIENT NAME: Nain Mckeon UNIT #: [id number] ADMITTING PROVIDER: Angelica Catalan PT, SCS, ATC ACCO UNT #: [id number] PRIMARY CARE PROVIDER: Dewayne Johnson M.D. DATE OF ADMIT: 10/28/23 : 1950 Supervising Provider: Angelica Catalan PT Diagnosis: Tension headaches Diagnosis: Tension headaches Weeks Elapsed: week(s) and 0 day(s) Patient Location: Physical Therapy - St Referring Provider: Dewayne Johnson Date of Service: [...] test: Negative Spurling's test Treatment: Manual therapy:? ([id number]) Hands-on techniques to modulate pain increase joint [...] postural correction. Maintain for reference Access Code: [email or web address] URL: [email or web address]://[employer]/ Date: 10/21/2023 Prepared by: Angelica Catalan Exercises [...] sure not to have ? Access Code: [email or web address] URL: https://[employer]/ Date: 10/14/2023 Prepared by: Linda Antonio Exercises [...] to treatment. Treatment to include: Manual therapy: 57933 Therapeutic exercise: 21860 Add functional activity 14035 as able. Working on restoring normal movement patterns. Modification of program to decrease activation of paraspinals UT and work gradually on pectoral stretch single arm, t-band rows only if can disassociate from UT, passive c-spine ROM as able. Care may be provided by DIETARY AIDE and POC has been discussed with DIETARY AIDE. Disclaimer: This note was created using [employer] voice recognition software. It was reviewed for [...] in error, please notify us immediately at [phone] and return the original report to us at the address above. Thank you. RAJI CHAMBERLAIN MA [facility] 11/04/2023 16:18:21 Urology Note : Urology Clinic Visit PATIENT NAME: Nain Mckeon UNIT #: [id number] ADMITTING PROVIDER: Elias Curran M.D. ACCOUNT #: [id number] PRIMARY CARE PROVIDER: DEWAYNE JOHNSON MD DATE OF ADMIT: : 1950 Assessment Plan (1) Prostate cancer: (2) Acute urinary retention: Plan We discussed approaches for his urinary retention. For now, he has an indwelling urethral catheter and if we continue with urethral catheters, we would need to change his current 1 in about 2 weeks. An alternative would be to place a suprapubic tube. He would be able to attempt to void while the suprapubic tube is in place (by clamping the tube) and unclamping the tube if he is unable to void. Our preference would be clean intermittent catheterization, but the patient is not able to perform CIC. If he remains in urinary retention, he might be a candidate for a procedure such as a transurethral resection of the prostate. We would want to wait a minimum of 6 months after completion of the radiation therapy and we would likely want to do a urodynamic study before any type of prostate surgery as attempted. The patient seems to be leaning toward the suprapubic tube but he like to think about it for a bit. We went ahead and made an appointment for him to come into the office in about 2 weeks to have his urethral catheter changed. If he would prefer to have the suprapubic tube placed instead, we can cancel the appointment and schedule him for procedure. Plan Detail Total time on date of encounter, (apor-xf-avcb and non biue-kq-rgcv) (minutes): 41 Time was spent: reviewing prior notes and diagnostics, providing direct patient care, documenting today's visit and coordinating care HPI Chief complaint: Urinary retention This is a 73-year-old gentleman who has a history of adenocarcinoma of the prostate. He was treated with a combination of androgen deprivation along with radiation therapy. He completed the radiation treatments about 5 months ago. He developed urinary retention requiring an indwelling Alvarez catheter. He failed a voiding trial and his catheter had to be replaced. He does not believe that he be able to perform clean intermittent catheterization. His catheter was placed about 2 weeks ago. He comes in to discuss his treatment options. He is already on tamsulosin. Review of systems: He has no fever or chills He continues to be active and plays pickiconDial ball He has no nausea or vomiting Exam HENMT Other: He is a very pleasant gentleman in no obvious distress His vital signs are documented elsewhere His chest wall motion is normal. He is not short of breath at rest. He is awake and alert Intake Vital Signs 12/09/23 08:02 Weight 80.428 kg BP 114/70 Blood Pressure Location Lt brachial Position Sitting Respiration 18 Pulse 60 Pulse Source Monitor Pulse Oximetry (%) 97 Oxygen Delivery Method room air Intake Visit Reasons: 1 YR FU Nurse Note: Has catheter. problems self cathing Is patient in pain?: No Allergies Allergy/AdvReac Type Severity Reaction Status Date / Time No Known Allergies Allergy Verified 12/09/23 08:01 Home Medications ???Medication ???Instructions ???Recorded ???Confirmed ???Type levothyroxine 75 mcg tablet 75 mcg PO DAILY #4 tabs 08/04/17 12/09/23 Rx pravastatin 20 mg tablet 40 mg PO DAILY 01/25/19 12/09/23 History lamotrigine 100 mg tablet 100 mg PO BID 07/29/20 12/09/23 History duloxetine 60 mg capsule,delayed 30 mg PO BID 09/15/21 12/09/23 History release (Cymbalta) melatonin 5 mg tablet 10 mg PO HS PRN 02/02/22 12/09/23 History multivitamin 1 tab PO DAILY 02/02/22 12/09/23 History turmeric 450 mg-turmeric root 1 cap PO DAILY 02/02/22 12/09/23 History extract 50 mg capsule acetaminophen 500 mg tablet 500 mg PO Q6H PRN pain #60 tabs 02/10/22 12/09/23 Rx ibuprofen 600 mg tablet 600 mg PO TID PRN pain #60 tabs 02/10/22 12/09/23 Rx tamsulosin 0.4 mg capsule 0.8 mg (2 x 0.4 mg) PO DAILY #180 07/26/23 12/09/23 Rx caps carnosine 500 mg capsule 500 mg PO .daily' 11/09/23 12/09/23 History (L-Carnosine) PFSH All Active Problems (Updated 11/19/23 @ 12:03 by Melissa Miguel MD) Acute urinary retention (Acute) Right lateral epicondylitis (Acute) Left carpal tunnel syndrome (Acute) Intra-articular fracture of distal end of radius with volar angulation (Acute) Fracture of left distal radius (Acute) Neuroleptic-induced tardive dyskinesia (Acute) BRCA2 gene mutation positive (Acute) Prediabetes (Acute) Family history of colon cancer (Acute) Major depression (Chronic) Suicide ideation (Acute) Bipolar disorder, manic (Acute) Prostate cancer (Chronic) Hyperlipidemia (Chronic) Hypothyroidism (Chronic) Memory loss (Acute) Drug-induced tremor (Acute) Discharge planning issues (Acute) Medical History Psoriasis Surgical History History of colonoscopy ( 07/2013) S/P appendectomy S/P cholecystectomy S/P tonsillectomy Family History Father Alzheimer disease Prostate cancer Anxiety Mother Colon cancer Heart disease Social History Smoking/Tobacco Use Status: Never Smoking risk assessment performed?: Yes Alcohol Intake: current Alcohol Intake frequency: holidays/special occasions only Drug use: Never Substance use type: does not use Household members: spouse Housing: house Number of Children: 2 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 Any use or distribution by any person other than this provider is strictly prohibited. If you receive this report in error, please notify us immediately at [phone] and return the original report to us at the address above. Thank you. DEWAYNE JOHNSON MD [address], [place], [address], [facility] 12/12/2023 16:18:10 Urology Clinic Visit PATIENT NAME: Nain Mckeon UNIT #: [id number] ADMITTING PROVIDER: Elias Curran M.D. ACCOUNT #: [id number] PRIMARY CARE PROVIDER: DEWAYNE JOHNSON MD DATE OF ADMIT: : 1950 Assessment Plan (1) Prostate cancer: Plan We removed his drainage bag and applied a catheter plug to his suprapubic tube. That way, he can attempt to void and unplug the catheter if he is not able to void. He can then replug the catheter to give himself another voiding trial. If he is not able to void, once he is far enough out from his radiation treatments, we can consider a channel TURP for bladder outlet obstruction. We will see him in another 3 weeks for his first suprapubic tube change. Plan Detail Total time on date of encounter, (ibus-it-zmtl and non neci-sh-vlcb) (minutes): 12 Time was spent: documenting today's visit HPI Chief complaint: Urinary retention This is a 73-year-old gentleman who has a history of prostate cancer. During his radiation treatments, he developed urinary retention that required an indwelling urethral catheter. He failed multiple voiding trials and he did not believe he would be able to do clean intermittent catheterization. We placed a suprapubic tube and he comes in to have the catheter plugged so that he can give himself voiding trials at home. He still has some discomfort at the suprapubic insertion site. Exam Const Other: He looks well He is awake and alert The catheter drainage bag was removed and a plug was applied. Intake Intake Visit Reasons: change from cath bag to plug Nurse Note: catheter bag removed and plug placed on end of cath. Pt shown how to use plug. Allergies Allergy/AdvReac Type Severity Reaction Status Date / Time No Known Allergies Allergy Verified 12/15/23 13:37 Home Medications ???Medication ???Instructions ???Recorded ???Confirmed ???Type levothyroxine 75 mcg tablet 75 mcg PO DAILY #4 tabs 08/04/17 12/19/23 Rx pravastatin 20 mg tablet 40 mg PO DAILY 01/25/19 12/19/23 History duloxetine 60 mg capsule,delayed 30 mg PO BID 09/15/21 12/19/23 History release (Cymbalta) melatonin 5 mg tablet 10 mg PO HS PRN 02/02/22 12/19/23 History multivitamin 1 tab PO DAILY 02/02/22 12/19/23 History turmeric 450 mg-turmeric root 1 cap PO DAILY 02/02/22 12/19/23 History extract 50 mg capsule acetaminophen 500 mg tablet 500 mg PO Q6H PRN pain #60 tabs 02/10/22 12/19/23 Rx ibuprofen 600 mg tablet 600 mg PO TID PRN pain #60 tabs 02/10/22 12/19/23 Rx tamsulosin 0.4 mg capsule 0.8 mg (2 x 0.4 mg) PO DAILY #180 07/26/23 12/19/23 Rx caps carnosine 500 mg capsule 500 mg PO .daily' 11/09/23 12/19/23 History (L-Carnosine) lamotrigine 150 mg tablet 150 mg PO BID 12/15/23 12/19/23 History PFSH All Active Problems (Updated 12/20/23 @ 00:06 by REJI MCINTYRE) Right lateral epicondylitis (Acute) Left carpal tunnel syndrome (Acute) Intra-articular fracture of distal end of radius with volar angulation (Acute) Fracture of left distal radius (Acute) Neuroleptic-induced tardive dyskinesia (Acute) BRCA2 gene mutation positive (Acute) Prediabetes (Acute) Family history of colon cancer (Acute) Major depression (Chronic) Suicide ideation (Acute) Bipolar disorder, manic (Acute) Prostate cancer (Chronic) Hyperlipidemia (Chronic) Hypothyroidism (Chronic) Memory loss (Acute) Drug-induced tremor (Acute) Discharge planning issues (Acute) Medical History Psoriasis Surgical History History of colonoscopy ( 07/2013) S/P appendectomy S/P cholecystectomy S/P tonsillectomy Family History Father Alzheimer disease Prostate cancer Anxiety Mother Colon cancer Heart disease Social History Smoking/Tobacco Use Status: Never Smoking risk assessment performed?: Yes Alcohol Intake: current Alcohol Intake frequency: holidays/special occasions only Drug use: Never Substance use type: does not use Household members: spouse Housing: house Number of Children: 2 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 Any use or distribution by any person other than this provider is strictly prohibited. If you receive this report in error, please notify us immediately at [phone] and return the original report to us at the address above. Thank you. Mona oneil [place] [facility]. 12/28/2023 07:50:01 Procedures Surgical History Date Name Laterality Status Provider Name and Address Organization Details Recorded Time 01/21/20 transurethral biopsy of prostate completed PABLO HITCHCOCK RN [place] [facility] 02/01/2023 08:36:09 Imaging Results Imaging Date Name Status LastModified by Organization Details LastModified Time 04/01/2023 electrocardiogram completed [address] [place], [address] 04/04/2023 17:10:23 11/19/2023 vrad report completed [address] [place], [address] 11/29/2023 07:52:53 11/19/2023 CT imaging report active [address] [place], [address] 12/21/2023 14:34:38 11/19/2023 CT imaging report active [address] [place], [address] 12/21/2023 14:33:35 04/27/2019 imaging/diagnostic result completed Information not available 11/21/2023 19:18:09 02/08/2022 imaging/diagnostic result completed Information not available 11/21/2023 19:18:11 01/29/2019 imaging/diagnostic result completed Information not available 11/21/2023 19:18:12 10/23/2019 imaging/diagnostic result completed Information not available 11/21/2023 19:20:04 04/11/2019 imaging/diagnostic result completed Information not available 11/21/2023 19:21:26 02/22/2022 imaging/diagnostic result completed Information not available 11/21/2023 19:21:27 03/26/2022 imaging/diagnostic result completed Information not available 11/21/2023 19:21:28 01/25/2022 imaging/diagnostic result completed Information not available 11/21/2023 19:21:29 02/08/2022 imaging/diagnostic result completed Information not available 11/21/2023 19:21:30 02/10/2022 imaging/diagnostic result completed Information not available 11/21/2023 19:21:31 04/11/2019 imaging/diagnostic result completed Information not available 11/21/2023 19:21:49 Procedure Notes None recorded. Medical Equipment None [...] of liquid. Take as needed. 12/03 [place] [facility] [place] Not Available Not Available methocarb sugey 500 mg tablet Take 1 tab by mouth three times daily 04/23 completed Not Available Not Available Not Available lamotrigi ne 150 mg tablet TAKE ONE TABLET BY MOUTH TWICE A DAY active Not Available Not Available No t Available bicalutam desi 50 mg tablet Take 1 tablet by mouth daily 06/14 completed [facility] Not Available Not Available nystatin [...] 1 tab by mouth daily. 08/03 completed [facility] Not Available Not Available metronida [...] mouth at HS as needed 11/15 completed [facility] Not Available Not Available Not Available olanzapin e 2.5 mg tablet Take 1 tab by mouth daily. for total 12.5 mg 08/03 completed [facility] Not Available Not Available Not Available lamotrigi [...] nightly as needed for anxiety 12/03 [place] [facility] [place] Not Available Not Available benztropi [...] by mouth daily at bedtime 2017 active [facility] Available Not Available Not Avai lable [...] e 50 mcg/actua tion nasal spray,mayra pension [place] 1 spray twice a day by intranas [...] TAKE ONE CAPSULE BY MOUTH EVERY DAY FOR DEPRESSI ON active Not Available Not Available No t Available Cymbalta 60 mg capsule,d elayed release [...] capsule by mouth once a day active [facility] Not Available Not Available [...] Updated DateTime 4 160.66 cm 32.9 kg/m2 21526.7 7 g 97.6 [degF] 98 % 98 % 78 /min 126 mm[Hg] 84 mm[Hg] JOHNNIE WHITEHEAD MA [facility] 4 11:22:22 Date Recorded Body height Body mass index (BMI) Body weight Body temperature Oxygen saturation Oxygen saturation in Arterial blood by Pulse oximetry Heart rate Systolic blood pressure Diastolic blood pressure Provider Name and Address Organization Details Last Updated DateTime 4 160.66 cm 32.9 kg/m2 39537.7 7 g 97.3 [degF] 98 % 98 % 78 /min 130 mm[Hg] 78 mm[Hg] JOHNNIE WHITEHEAD MA [facility] 4 14:18:32 Date Recorded Body height Body mass index (BMI) Body weight Body temperature Respiratory rate Oxygen saturation Oxygen saturation in Arterial blood by Pulse oximetry Heart rate Systolic blood pressure Diastolic blood pressure Provider Name and Address Organization Details Last Updated DateTime 4 160.66 cm 32.9 kg/m2 96754.7 7 g 99.9 [degF] 17 /min 94 % 94 % 102 /min 138 mm[Hg] 75 mm[Hg] Janae Serrano RN [facility] 4 11:47:14 Date Recorded Body height Body mass index (BMI) Body weight Body temperature Oxygen saturation Oxygen saturation in Arterial blood by Pulse oximetry Heart rate Systolic blood pressure Diastolic blood pressure Provider Name and Address Organization Details Last Updated DateTime 4 160.66 cm 31.5 kg/m2 17765.0 3 g 97.2 [degF] 97 % 97 % 78 /min 120 mm[Hg] 80 mm[Hg] JOHNNIE WHITEHEAD MA [facility] 4 11:08:14 Date Recorded Body height Body mass index (BMI) Body weight Body temperature Oxygen saturation Oxygen saturation in Arterial blood by Pulse oximetry Heart rate Systolic blood pressure Diastolic blood pressure Provider Name and Address Organization Details Last Updated DateTime 4 160.66 cm 31.5 kg/m2 44749.0 3 g 97.8 [degF] 97 % 97 % 74 /min 124 mm[Hg] 78 mm[Hg] JOHNNIE WHITEHEAD MA [facility] 4 14:29:20 Social History Question Answer Notes LastModified by Organizat ion Details LastModified Time Tobacco Smoking Status Former Smoker couple years in college JOHNNIE WHITEHEAD MA [facility], [facility], [facility] 02/17/2023 13:45:19 Do You Have An Advance [...] Or The Highest Degree You Have Received? [id number] Information not available 02/17/2023 How Many Times [...] Do You Have A Medical Power Of Office Messenger Helper? No Paperwork Given Information not available 02/17/2023 [...] preservative free, adsorbed 07/26/2017 completed Not Available [facility] 01/14/2023 04:07:01 Tdap 01/25/2007 completed Not Available [facility] 04:07:03 zoster live 09/21/2011 completed Not Available [facility] 01/14/2023 04:07:03 Pneumococcal conjugate PCV 13 06/19/2015 completed Not Available [facility] 01/14/2023 04:07:04 Influenza, high-dose, trivalent, PF 12/08/2017 completed Not Available [facility] 01/14/2023 04:07:04 Influenza, split virus, trivalent, preservative 02/11/2016 completed Not Available [facility] 01/14/2023 04:07:05 Influenza, split virus, quadrivalent, preservative 11/26/2016 completed Not Available [facility] 01/14/2023 04:07:05 Influenza, high-dose, quadrivalent, PF 12/02/2020 completed Not Available [facility] 01/14/2023 04:07:06 Influenza, high-dose, quadrivalent, PF 12/04/2019 completed Not Available [facility] 01/14/2023 04:07:06 Influenza, high-dose, quadrivalent, PF 12/14/2021 completed Not Available [facility] 01/14/2023 04:07:06 COVID-19, mRNA, LNP-S, PF, 100 mcg/0.5mL dose or 50 mcg/0.25mL dose 05/30/2020 completed Not Available [facility] 01/14/2023 04:07:07 COVID-19, mRNA, LNP-S, PF, 100 mcg/0.5mL dose or 50 mcg/0.25mL dose 01/07/2021 completed Not Available [facility] 01/14/2023 04:07:07 SARS-COV-2 (COVID-19) vaccine, UNSPECIFIED 05/02/2020 completed Not Available [facility] 01/14/2023 04:07:07 SARS-COV-2 (COVID-19) vaccine, UNSPECIFIED 06/23/2021 completed Not Available [facility] 01/14/2023 04:07:08 SARS-COV-2 (COVID-19) vaccine, UNSPECIFIED 12/14/2021 completed Not Available [facility] 01/14/2023 04:07:08 Pneumococcal conjugate PCV20, polysaccharide [id number] conjugate, adjuvant, PF 07/27/2022 completed Not Available [facility] 01/14/2023 04:07:08 COVID-19, mRNA, LNP-S, bivalent, PF, 30 mcg/0.3 mL dose 07/27/2022 completed Not Available [facility] 01/15/20 04:07:08 pneumococcal polysaccharide PPV23 05/24/2014 completed Not Available [facility] 2022 04:07:09 influenza, unspecified formulation 01/22/2019 completed Not Available Formerly [facility] 01/14/2023 04:07:11 SARS-COV-2 (COVID-19) vaccine, UNSPECIFIED 01/03/2023 completed [facility]IE WE[facility] 02/17/2023 13:55:11 influenza, unspecified formulation 11/18/2022 completed LAINE WELLER [facility] 02/17/2023 13:55:44 Influenza, high-dose, quadrivalent, PF 11/18/2022 completed Not Available Formerly [facility] 03/18/2023 05:33:19 Past Encounters Encounter ID Performer Location Encounter Start Date Encounter Closed Date Diagnosis/Indication Diagnosis SNOMED-CT Code Diagnosis ICD10 Code [id number] DEWAYNE JOHNSON MD [address] [address] 02/17/2023 13:26:31 02/17/2023 15:28:29 Adult health examination 599868459 Z00.00 Bipolar II disorder 8322 5003 F31.81 Malignant tumor of prostate 726022530 C61 Hypothyroidism 80950346 E03.9 Hyperlipidemia 26049819 E78.5 [id number] SORAYA HOLDER PA-C [address] [address] 03/04/2023 10:45:49 03/04/2023 14:27:34 Subungual hematoma of foot 552017874 S90.221A [id number] DEWAYNE JOHNSON MD [address] [address] 03/24/2023 08:05:25 03/24/2023 09:01:46 Epidermoid cyst of skin 015947703 L72.0 [id number] DEWAYNE JOHNSON MD [address] [address] 05/05/2023 10:51:25 05/05/2023 12:35:01 Body mass index 30+ - obesity 261022884 Z68.32 Allergic rhinitis 330681 04 J30.9 [id number] DEWAYNE JOHNSON MD [address] [address] 05/11/2023 13:53:04 05/11/2023 14:45:32 Tension-type headache 964800234 G44.209 Disorder of vision 76453 002 H53.9 [id number] SORAYA HOLDER PA-C [address], [address] [place] [address] 07/02/2023 11:03:20 07/02/2023 13:31:12 Blood in urine 75831896 R31.9 Dental abscess 467077652 K04.7 Unsteady when walking 22 804117 R26.89 [id number] DEWAYNE JOHNSON MD [address] [address] 08/03/2023 10:49:43 08/03/2023 11:38:20 Tension-type headache 658898052 G44.207 [id number] DEWAYNE JOHNSON MD [address] [address] 12/21/2023 14:17:17 12/21/2023 15:20:30 Malignant tumor of prostate 093999401 C61 Prediabetes 984156446 R7 3.03 Health Concerns Section Related Observation LastModified by Organization Detai ls LastModified Time None Recorded Concern Status LastModified by Organization Details LastModified Time None Recorded Advance Directives Directive N: Payers Encounter Date Sequence Insurance Name Policy Number Policy Walker Covered Member ID Walker Member ID Guarantor Name 05/05/2023 2 Appy Couple (MEDICARE SUPPLEMENT) Nain Paulsonaleida [id number] Nain Paulsonaleida 05/05/2023 1 [place] Nain Chet Khurramlaeida [id number] Nain Paulsonaleida 05/11/2023 2 Appy Couple (MEDICARE SUPPLEMENT) Nain Paulsonaleida [id number] Nain Paulsonaleida 05/11/2023 1 [place] Nain Mckeon [id number] Nain Chet Mckeon 07/02/2023 2 Appy Couple (MEDICARE SUPPLEMENT) Nain Chet Mckeon [id number] Nain J Khurramaleida 07/02/2023 1 [place] Nain Mckeon [id number] Nain Chet Khurramaleida 08/03/2023 2 Appy Couple (MEDICARE SUPPLEMENT) Nain Paulsonaleida [id number] Nain Paulsonaleida 08/03/2023 1 [place] Nain Mckeon [id number] Nain Chet Mckeon 12/21/2023 2 Appy Couple (MEDICARE SUPPLEMENT) Nain Chet Mckeon [id number] Nain J Khurramaleida 12/21/2023 1 [place] Nain Mckeon [id number] Nain Mckeon Notes Date Note Type Note Provider Name and Address Organization Details Recorded Time 05/05/2023 text/html HPI Notes: Rafi demarco was [...] some seasonal allergies. MD [address], [place], [address], [facility]. 05/09/2023 00:07:32 05/11/2023 text/html HPI Notes: Rafi demarco is complaining what sound like tension headaches. Some tension in his neck and occipital area. Worse last few days. Does admit this is worse when he turns head left and right. There is nothing anterior. He has had no recent trauma or illness. States vision is a little cloudy, has not seen an duct maker for some time. No fevers chills or illness. The Flonase we suggested last visit he states is helping his sinus congestion. No peripheral neurologic symptoms such as numbness weakness or tingling MD [address], [place], [address], [facility]. 05/15/2023 19:02:03 07/02/2023 text/html HPI Notes: [...] infection. He recently started high-dose radiation in [place] for prostate cancer. First treatment was on [...] passed a few clots. [address], [place], [address], [facility]. 07/02/2023 15:07:48 08/03/2023 text/html HPI Notes: [...] his present symptoms. MD [address], [place], [address], [facility]. 08/07/2023 12:50:52 12/21/2023 text/html HPI Notes: The patient presents with a history of urinary retention, prostate cancer, and an enlarged prostate. He reports having acute urinary retention on November 18, which led to the placement of a Alvarez catheter in the emergency room.. I cannot find a report in terms of how much urine was present, he states a fair amount. Attempted a trial without the Alvarez, had symptoms once again. Since then he sees urologist and now has a suprapubic catheter in place. He underwent high-dose radiation therapy in mid-June for prostate cancer and is currently being monitored by medical oncology. The patient's PSA levels have become undetectable again after the radiation therapy. The patient also has concerns about a prediabetes diagnosis on his problem list, which was entered on August 01, 2020. He denies any family history of diabetes and is interested in managing his blood sugar levels through diet and exercise. The patient acknowledges the importance of maintaining a healthy lifestyle and is motivated to prevent the progression of prediabetes to diabetes. DEWAYNE JOHNSON MD [address], [place], [address], [facility]. 12/24/2023 20:38:34
--- OUTSIDE RECORDS SUMMARY | 2023-12-29 12:09 | XMS_ITS | Encounter Summary ---
[place] [address] Care Team Providers Care Food Service Substitute Name Role Phone Celio Sanders MD Primary Care Provider [phone] Reason for Visit * Reason Comments Injections Lupron * Treatment/Therapy Plan Authorization (Routine) - Authorized Specialty Diagnoses / Procedures Referred By Contac t Referred To Contact Hematology and Oncology Diagnoses Recurrent prostate cancer Procedures TC LEUPROLIDE ACETATE 7.5MG, FOR DEPOST SUSPENSION (LUPRON DEPOT) Ronnie Vazquez MD [address] [place] [address] [place] [address] [facility] [address] [place] [address] Referral ID Status Reason Start Date Expiration Date V isits Requested Visits Authorized [id number] Authorized 02/17/2023 02/17/2024 1 103 Encounter Details Date Type Department Care Team (Late st Contact Info) Description 04/26/2023 10:30 AM EST Infusion Hematology Oncology at [address] [id number] Recurrent prostate cancer Social History Tobacco Use Types Packs/Day Years Used Date Smoking Tobacco: Never Smokeless Tobacco: Never Alcohol Use Standard Drinks/Week Comments Not Currently 0 (1 standard drink = 0.6 oz pur e alcohol) beer and wine twice a month [facility] Utilities Answer Date Recorded In the past 12 months has [employer], gas, oil, or water company threatened to [...] 2:00 PM EST Office Visit Dermatology at [facility] [address] [place] [address] Prisca Hughes MD [facility] [place] [address] documented as of this encounter Visit Diagnoses [...] Gluteal documented in this encounter Care Teams Food Service Substitute Relationship Specialty Start Date End Date Celio Sanders MD [address] [place] [address] PCP - General Internal Medicine 05/19/16 documented as of this encounter
--- OUTSIDE RECORDS SUMMARY | 2023-12-29 12:09 | XMS_ITS | Encounter Summary ---
Author Organization [facility] Address 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 [facility] Medical Oncology [place] [id number] ONCOLOGY F/u visit REFERRING: Dr TaylorDr Diane [...] Mar 2018: pathogenic variant in BRCA2 (c.1929del, p.[id number] fs15). 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 Victorino Hassan at the [facility] Given his high [place] score question is if we should intensify [...] observed, with no substantial between-group differences in [id number] measures. CONCLUSIONS In patients with prostate cancer with high-risk biochemical recurrence, enzalutamide plus leuprolide was superior to leuprolide alone with respect to metastasis-free survival; enzalutamide monotherapy was also superior to leuprolide alone. The safety profile of enzalutamide was consistent with that shown in previous clinical studies, with no apparent detrimental effect on quality of life. (Fundedby [employer] and [employer]; [facility] ClinicalTrials.gov number, COQ96583107. opens in new tab.) On January 20 [...] follow-up with radiation oncologist Dr. Hassan at [facility] [place] can [place] him back in 3 [...] Dermatology at [facility] [address] [place] [address] Prisca Hughes MD [facility] [address] I[address] [address] Scheduled Orders Name Type Priority Associated Diagnoses [...] Primary documented in this encounter Care Teams Circulation Assistant Relationship Specialty Start Date End Date Celio Sanders MD [address] [place] [address] PCP - General Internal Medicine 05/19/16 documented as of this encounter
--- OUTSIDE RECORDS SUMMARY | 2023-12-29 12:09 | XMS_ITS | Encounter Summary ---
Author Organization [facility] Address [address] [place] [address] Care Team Providers Care Metal Mover Name Role Phone Celio Sanders MD Primary Care Provider [phone] Encounter Details Date Type Department Care Team (Late st Contact Info) Description 01/31/2019 Lab Requisition [facility] Pathology & Laboratory Medicine - [facility] [address] [place] [address] Unknown, Provider, Social History Tobacco Use Types [...] [facility] [address] [place] [address] documented in this encounter Visit Diagnoses Not on filedocumented in this encounter Care Teams Metal Mover Relationship Specialty Start Date End Date Celio Sanders MD [address] [place], [place] [address] PCP - General 04/30/16 documented as of this encounter
--- OUTSIDE RECORDS SUMMARY | 2023-12-29 12:09 | XMS_ITS | Encounter Summary ---
Author Organization [facility] Address [facility] [place] [address] Care Team Providers Care Oncology Registrar Name Role Phone Celio Sanders MD Primary Care Provider [phone] Reason for Visit * Reason Onset Date Comments Follow-up 03/15/2023 Re oral chemo Encounter Details Date Type Department Care Team (Late st Contact Info) Description 03/15/2023 Telephone Hematology/Oncology at [address] [address] Caio Venegas, RN Follow-up (Re oral chemo) Social History Tobacco Use Types Packs/Day Years Used Date Smoking Tobacco: Never Smokeless Tobacco: Never Alcohol Use Standard Drinks/Week Comments Not Currently 0 (1 standard drink = 0.6 oz pur e alcohol) beer and wine twice a month [facility] Utilities Answer Date Recorded In the past 12 months has [employer], gas, oil, or water company threatened to [...] follow up with him, his number is [phone] documented in this encounter Plan of Treatment Upcoming Encounters Date Type Department Care Team (Late st Contact Info) Description 01/24/2024 2:00 PM EST Office Visit Dermatology at [facility] [address] [place] [address] Prisca Hughes MD [facility] [address] [place] [address] documented as of this encounter Visit Diagnoses Not on filedocumented in this encounter Care Teams Oncology Registrar Relationship Specialty Start Date End Date Celio Sanders MD [address] [place] [address] PCP - General Internal Medicine 05/19/16 documented as of this encounter
--- OUTSIDE RECORDS SUMMARY | 2023-12-29 12:09 | XMS_ITS | Encounter Summary ---
[place] [address] Care Team Providers Care Handle Bar Assembler Name Role Phone Celoi Sanders MD Primary Care Provider [phone] Reason for Visit * Reason Comments Injections IM Lupron * Treatment/Therapy Plan Authorization (Routine) - Authorized Specialty Diagnoses / Procedures Referred By Contac t Referred To Contact Hematology and Oncology Diagnoses Recurrent prostate cancer Procedures TC LEUPROLIDE ACETATE 7.5MG, FOR DEPOST SUSPENSION (LUPRON DEPOT) Ronnie Vazquez MD [address] [place] [address] [place] [address] [facility] [address] [place] [address] Referral ID Status Reason Start Date Expiration Date V isits Requested Visits Authorized [id number] Authorized 02/17/2023 02/17/2024 1 103 Encounter Details Date Type Department Care Team (Late st Contact Info) Description 05/24/2023 11:30 AM EDT Infusion Hematology Oncology at [address] [address] Recurrent prostate cancer Social History Tobacco Use Types Packs/Day Years Used Date Smoking Tobacco: Never Smokeless Tobacco: Never Alcohol Use Standard Drinks/Week Comments Not Currently 0 (1 standard drink = 0.6 oz pur e alcohol) beer and wine twice a month [facility] Utilities Answer Date Recorded In the past 12 months has [employer], gas, oil, or water company threatened to [...] 2:00 PM EST Office Visit Dermatology at [address] [place] [address] Prisca Hughes MD [facility] DR [address] [place] [address] documented as of this encounter Visit Diagnoses [...] Gluteal documented in this encounter Care Teams Handle Bar Assembler Relationship Specialty Start Date End Date Celio Sanders MD [address] [place] [address] PCP - General Internal Medicine 05/19/16 documented as of this encounter
--- OUTSIDE RECORDS SUMMARY | 2023-12-29 12:09 | XMS_ITS | Encounter Summary ---
Author Organization [facility] Address [facility] [place] [address] Care Team Providers Care Bunch Breaker Machine Operator Name Role Phone Celio Sanders MD Primary Care Provider [phone] Reason for Visit * Reason Onset Date Comments Other 04/14/2023 Encounter Details Date Type Department Care Team (Late st Contact Info) Description 04/14/2023 Telephone Hematology/Oncology at [address] [address] Caio Venegas RN Other Social History Tobacco Use Types Packs/Day Years Used Date Smoking Tobacco: Never Smokeless Tobacco: Never Alcohol Use Standard Drinks/Week Comments Not Currently 0 (1 standard drink = 0.6 oz pur e alcohol) beer and wine twice a month [facility] Utilities Answer Date Recorded In the past 12 months has [employer] electric, gas, oil, or water company threatened [...] report he was recently seen at [facility] ED after collapsing at local grocery. ED [...] at [address] [place] [address] Prisca Hughes MD [facility] [address] [place] [address] documented as of this encounter Visit Diagnoses Not on filedocumented in this encounter Care Teams Bunch Breaker Machine Operator Relationship Specialty Start Date End Date Celio Sanders MD [address] [place] [address] PCP - General Internal Medicine 05/19/16 documented as of this encounter
--- OUTSIDE RECORDS SUMMARY | 2023-12-29 12:09 | XMS_ITS | Encounter Summary ---
Author Organization [facility] Address [facility] [place] [address] Care Team Providers Care Labor Gang Supervisor Name Role Phone Celio Sanders MD Primary Care Provider [phone] Encounter Details Date Type Department Care Team (Late st Contact Info) Description 07/19/2023 1:00 PM EDT Office Visit Hematology/Oncology at [address] [address] Harjinder Ruffin MD [facility] DR HEMATOLOGY [place] [address] Bisi Cheng APRN [facility] [place] [address] Recurrent prostate cancer; Malignant neoplasm of prostate Social History Tobacco Use Types Packs/Day Years Used Date Smoking Tobacco: Never Smokeless Tobacco: Never Alcohol Use Standard Drinks/Week Comments Not Currently 0 (1 standard drink = 0.6 oz pur e alcohol) beer and wine twice a month [facility] Utilities Answer Date Recorded In the past 12 months has [employer] electric, gas, oil, or water company threatened [...] from the original note were not included. [facility] Medical Oncology [place] [id number] ONCOLOGY F/u visit REFERRING: Dr Vazquez, Dr [...] biopsy revealed prostatic adenocarcinoma, Grade Group 5 (Browder score 5+5=10) Genetic testing Mar 2018: pathogenic variant in BRCA2 (c.1929del, p.[id number] fs15). VUS in AXIN2 and CTNNA1 -01/06/23 [...] under the care of Dr. Hassan at [facility] on June 15 and June 22. 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 PS: ECOG = 0 General: NAD Deferred Pathology: 01/20/2023 prostatic adenocarcinoma, Grade Group 5 (Browder score 5+5=10) LABS: 07/12/2023 BUN 23, creatinine 1.2, TB 0.4, alkaline phosphatase 76, AST 24, ALT 33, WBC 7.26, hemoglobin 12.4, platelet count 359, ANC 4.29. 04/19/2023 BUN 15, creatinine 1.0, TB 0.4, AST 28, ALT 39, WBC 6.83, hemoglobin 12.3, platelet [id number], 02/15/2023 BUN 31, creatinine 1.1, calcium 9.3, [...] radiation oncologist Dr. Victorino Hassan at the [facility] Given his high Browder score question is if we should intensify [...] observed, with no substantial between-group differences in knjxzjw-at-tuez measures. CONCLUSIONS In patients with prostate cancer with high-risk biochemical recurrence, enzalutamide plus leuprolide was superior to leuprolide alone with respect to metastasis-free survival; enzalutamide monotherapy was also superior to leuprolide alone. The safety profile of enzalutamide was consistent with that shown in previous clinical studies, with no apparent detrimental effect on quality of life. (Fundedby [employer] and [employer]; [employer] ClinicalTrials.gov number, YAL33489416. opens in new tab.) On January 20 [...] follow-up with radiation oncologist Dr. Hassan at [facility] I can see him back in 3 months with blood work 07/19/23 Nain had salvage HDR focally under care of Dr. Shaffer At [facility] on June 15 and June 22. The [...] 2:00 PM EST Office Visit Dermatology at [facility] [address] [place] [address] Prisca Hughes MD [facility] DR [address] [place] [address] documented as of this encounter Visit Diagnoses Diagnosis Recurrent prostate cancer Malignant neoplasm of prostate documented in this encounter Care Teams Labor Gang Supervisor Relationship Specialty Start Date End Date Celio Sanders MD [address] [place] [address] PCP - General Internal Medicine 05/19/16 documented as of this encounter
--- OUTSIDE RECORDS SUMMARY | 2023-12-29 12:09 | XMS_ITS | Referral Summary ---
Author Organization [facility] Address [address] [place] [address] Care Team Providers Care Release Specialist Name Role Phone Celio Sanders MD Primary Care Provider [phone] Social History Tobacco Use Types Packs/Day Years Used Date Smoking Tobacco: Never Assessed Interpersonal Safety Answer Date Record ed Physically Hurt Never 11/25/2019 Verbally Threaten Not on file 11/25/2019 Sex and Gender Information Value Date Recorded Sex Assigned at Not on file Gender Identity Not on file Sexual Orientation Not on file Plan of Treatment Not on file Care Teams Release Specialist Relationship Specialty Start Date End Date Celio Sanders MD [address] [place] [address] [facility] - General 04/30/16
--- OUTSIDE RECORDS SUMMARY | 2023-12-29 12:09 | XMS_ITS | Encounter Summary ---
Author Organization [facility] Address [facility] [place] [address] Care Team Providers Care Test Engineering Technician Name Role Phone Celio Sanders MD Primary Care Provider [phone] Encounter Details Date Type Department Care Team (Latest Contact Info) Description 05/24/2023 Travel Social History Tobacco Use Types Packs/Day Years Used Date Smoking Tobacco: Never Smokeless Tobacco: Never Alcohol Use Standard Drinks/Week Comments Not Currently 0 (1 standard drink = 0.6 oz pur e alcohol) beer and wine twice a month [facility] Utilities Answer Date Recorded In [...] 2:00 PM EST Office Visit Dermatology at [facility] [address] [place] [place] [address] Prisca Hughes MD [facility] [address] [place] [address] documented as of this encounter Visit Diagnoses Not on filedocumented in this encounter Care Teams Test Engineering Technician Relationship Specialty Start Date End Date Celio Sanders MD [address] [place] [address] PCP - General Internal Medicine 05/19/16 documented as of this encounter
--- OUTSIDE RECORDS SUMMARY | 2023-12-29 12:09 | XMS_ITS | Encounter Summary ---
Author Organization [facility] Address [facility] [place] [address] Care Team Providers Care Tobacco Baler Name Role Phone Celio Sanders MD Primary Care Provider [phone] Encounter Details Date Type Department Care Team (Latest Contact Info) Description 07/19/2023 Travel Social History Tobacco Use Types Packs/Day Years Used Date Smoking Tobacco: Never Smokeless Tobacco: Never Alcohol Use Standard Drinks/Week Comments Not Currently 0 (1 standard drink = 0.6 oz pur e alcohol) beer and wine twice a month [facility] Utilities Answer Date Recorded In the [...] PM EST Office Visit Dermatology at [facility] [address] [place] [address] Prisca Hughes MD [facility] [address] [place] [address] documented as of this encounter Visit Diagnoses Not on filedocumented in this encounter Care Teams Tobacco Baler Relationship Specialty Start Date End Date Celio Sanders MD [address] [place] [address] PCP - General Internal Medicine 05/19/16 documented as of this encounter
--- OUTSIDE RECORDS SUMMARY | 2023-12-29 12:09 | XMS_ITS | Encounter Summary ---
Author Organization [facility] Address [facility] [place] [address] Care Team Providers Care Outsole Beveler Name Role Phone Celio Sanders MD Primary Care Provider [phone] Encounter Details Date Type Department Care Team (Late st Contact Info) Description 10/25/2023 10:00 AM EDT Telephone Hematology/Oncology at [address] [phone] Shakila Manuel, [facility] DR [place] [address] Social History Tobacco Use Types Packs/Day Years Used Date Smoking Tobacco: Never Smokeless Tobacco: Never Alcohol Use Standard Drinks/Week Comments Not Currently 0 (1 standard drink = 0.6 oz pur e alcohol) beer and wine twice a month [facility] Utilities Answer Date Recorded In the past 12 months has [employer], gas, oil, or water [employer] threatened to shut off services in your [...] 2:00 PM EST Office Visit Dermatology at [facility] [address] [place] [address] Prisca Hughes MD [facility] DR [place] [address] documented as of this encounter Visit Diagnoses Not on filedocumented in this encounter Care Teams Outsole Beveler Relationship Specialty Start Date End Date Celio Sanders MD [address] [place] [address] PCP - General Internal Medicine 05/19/16 documented as of this encounter
--- OUTSIDE RECORDS SUMMARY | 2023-12-29 12:09 | XMS_ITS | Encounter Summary ---
Author Organization [facility] Address [facility] [place] [address] Care Team Providers Care Gage Designer Name Role Phone Celio Sanders MD Primary Care Provider [phone] Encounter Details Date Type Department Care Team (Late st Contact Info) Description 07/20/2023 2:30 PM EDT TH Visit (TeleHealth) Radiation Oncology at [address] [phone] Ronnie Vazquez MD [address] [place] [address] DR RADIATION ONCOLOGY [place], [place] [id number] Prostate cancer metastatic to intrapelvic lymph node; Recurrent prostate cancer Social History Tobacco Use Types Packs/Day Years Used Date Smoking Tobacco: Never Smokeless Tobacco: Never Alcohol Use Standard Drinks/Week Comments Not Currently 0 (1 standard drink = 0.6 oz pur e alcohol) beer and wine twice a month [facility] Utilities Answer Date Recorded In the past 12 months has [employer], [employer], oil, or water [employer] threatened to shut off services in your [...] place to sleep or slept in a prison (including now)? No 02/15/2023 Sex and Gender Information Value Date Recorded Sex Assigned at Not on file Gender Identity Not on file Sexual Orientation Not on file documented as of this encounter Progress Notes * Ronnie Vazquez MD - 07/20/2023 2:30 PM EDT Images from the original note were not included. Radiation Oncology Phone Note Ronnie Vazquez MD, MS [facility] PATIENT NAME: Nain Mckeon [...] 2:00 PM EST Office Visit Dermatology at [address] [address] Prisca Hughes MD [facility] [address] [place] [address] documented as of this encounter Visit Diagnoses Diagnosis Prostate cancer metastatic to intrapelvic lymph node Recurrent prostate cancer documented in this encounter Care Teams Gage Designer Relationship Specialty Start Date End Date Celio Sanders MD [address] [place] [address] PCP - General Internal Medicine 05/19/16 documented as of this encounter
--- OUTSIDE RECORDS SUMMARY | 2023-12-29 12:09 | XMS_ITS | Encounter Summary ---
Author Organization [facility] Address [facility] [place] [address] Care Team Providers Care Environmental Field Office Manager Name Role Phone Celio Sanders MD Primary Care Provider [phone] Encounter Details Date Type Department Care Team (Latest Contact Info) Description 03/29/2023 Travel Social History Tobacco Use Types Packs/Day Years Used Date Smoking Tobacco: Never Smokeless Tobacco: Never Alcohol Use Standard Drinks/Week Comments Not Currently 0 (1 standard drink = 0.6 oz pur e alcohol) beer and wine twice a month [facility] Utilities Answer Date Recorded In [...] 2:00 PM EST Office Visit Dermatology at [facility] [address] [place] [address] Prisca Hughes MD [facility] DR [place] [address] documented as of this encounter Visit Diagnoses Not on filedocumented in this encounter Care Teams Environmental Field Office Manager Relationship Specialty Start Date End Date Celio Sanders MD [address] [place] [address] PCP - General Internal Medicine 05/19/16 documented as of this encounter
--- OUTSIDE RECORDS SUMMARY | 2023-12-29 12:09 | XMS_ITS | Encounter Summary ---
Author Organization [facility] Address [facility] [place] [address] Care Team Providers Care Horizontal Drill Operator Name Role Phone Celio Sanders MD Primary Care Provider [phone] Encounter Details Date Type Department Care Team (Late st Contact Info) Description 10/24/2023 1:30 PM EDT Office Visit Hematology/Oncology at [address] [phone] [facility] [place] [address] Recurrent prostate cancer; BRCA gene mutation positive Social History Tobacco Use Types Packs/Day Years Used Date Smoking Tobacco: Never Smokeless Tobacco: Never Alcohol Use Standard Drinks/Week Comments Not Currently 0 (1 standard drink = 0.6 oz pur e alcohol) beer and wine twice a month [facility] Utilities Answer Date Recorded In the past 12 months has [employer], gas, oil, or water [employer] threatened to shut off services in your [...] biopsy revealed prostatic adenocarcinoma, Grade Group 5 (Waveland score 5+5=10) Genetic testing Mar 2018: pathogenic variant in BRCA2 (c.1929del, p.[id number] fs15). VUS in AXIN2 and CTNNA1 -01/06/23 PSA 1.4 HPI: Nain Mckeon is a 73 y.o. M here for follow up for hx of prostate cancer. Interval history 10/25/23: Nain is in clinic for follow-up appointment on prostate cancer. He received brachytherapy under the care of Dr. Hassan at [facility] on June 15 and [...] injuries Hyperlipidemia Prostate cancer MEDS: Medications 10/24/23 2648 Medication Sig Taking? 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 PS: ECOG = 0 General : alert and oriented x 3 HEENT: nonicteric Deferred for discussion Pathology: 01/20/2023 prostatic adenocarcinoma, Grade Group 5 (Waveland score 5+5=10) LABS: 10/12/23 BUN 24, creatinine [...] ALT 39, WBC 6.83, hemoglobin 12.3, platelet [id number], 02/15/2023 BUN 31, creatinine 1.1, calcium 9.3, [...] radiation oncologist Dr. Victorino Hassan at the [facility] Given his high Waveland score question is if we should intensify [...] observed, with no substantial between-group differences in [id number] measures. CONCLUSIONS In patients with prostate cancer with high-risk biochemical recurrence, enzalutamide plus leuprolide was superior to leuprolide alone with respect to metastasis-free survival; enzalutamide monotherapy was also superior to leuprolide alone. The safety profile of enzalutamide was consistent with that shown in previous clinical studies, with no apparent detrimental effect on quality of life. (Fundedby [employer] and [employer]; [employer] ClinicalTrials.gov number, DFU11007439. opens in new tab.) On January 20 [...] follow-up with radiation oncologist Dr. Hassan at [facility] I can see him back in 3 months with blood work 07/19/23 Nain had salvage HDR focally under care of Dr. Shaffer At [facility] on June 15 and [...] at [facility] [address] [place] [address] [facility] DR PHOE[address] IBAR[place] [address] documented as of this encounter Visit Diagnoses Diagnosis Recurrent prostate cancer BRCA gene mutation positive documented in this encounter Care Teams Horizontal Drill Operator Relationship Specialty Start Date End Date Celio Sanders MD [address] [place] [address] PCP - General Internal Medicine 05/19/16 documented as of this encounter
--- OUTSIDE RECORDS SUMMARY | 2023-12-29 12:09 | XMS_ITS | Encounter Summary ---
Author Organization [facility] Address [address] [place] [address] Care Team Providers Care Barley Steeper Name Role Phone Celio Sanders MD Primary Care Provider [phone] Encounter Details Date Type Department Care Team (Late st Contact Info) Description 11/21/2019 Lab Requisition [facility] Pathology & Laboratory Medicine - [facility] [address] [place] [address] David Fairchild MD [address] [place], [place] [id number] Contact with and (suspected) exposure to other [...] - GENER AL ORDERABLES Performing Organization Address [facility] Co de Phone Number [facility] [address] [place] [address] * COVID-19 TESTING (11/21/2019 14:30 EDT) COVID-19 rt-PCR Result Negative Negative 11/22/2019 1:14 EDT [facility] Comment: This test [...] history, and epidemiological information. Performed on the [employer] instrument Performing Lab [place] [facility] Lab 11/22/2019 1:14 EDT [facility] Swab ENTIRE NASOPHARYNX / Unknown Swab / Unknown 11/21/2019 14:30 EDT 11/21/2019 20:52 EDT David Fairchild MD MICROBIOLOGY - GENER AL ORDERABLES Performing Organization Address [facility] Co de Phone Number [facility] [address] [place] [address] documented in this encounter Visit Diagnoses Diagnosis Contact with and (suspected) exposure to other viral communicable diseases documented in this encounter Care Teams Barley Steeper Relationship Specialty Start Date End Date Celoi Sanders MD [address] [place] [address] PCP - General 04/30/16 documented as of this encounter
--- OUTSIDE RECORDS SUMMARY | 2023-12-29 12:09 | XMS_ITS | Encounter Summary ---
Author Organization [facility] Address [address] [place] [address] Care Team Providers Care Global Supply Chain Vice President Name Role Phone Unavailable Primary Care Provider Unavailabl e Encounter Details Date Type Department Care Team (Latest Contact Info) Description 04/27/2016 10:06 EST - 04/27/2016 23:59 EST Hospital Encounter [address] [address] Unknown, Provider, Discharge Disposition: Home or Self Care Social History Tobacco Use Types Packs/Day Years Used Date Smoking Tobacco: Never Assessed Sex and Gender Information Value Date Recorded Sex Assigned at Not on file Gender Identity Not on file Sexual Orientation Not on file documented as of this encounter Discharge Disposition Disposition Code Departure Means Destination Home or Self Penitentiary documented in this encounter Plan of Treatment Not on file documented as of this encounter Visit Diagnoses Not on filedocumented in this encounter
--- OUTSIDE RECORDS SUMMARY | 2023-12-29 12:09 | XMS_ITS | Encounter Summary ---
[place] [address] Care Team Providers Care Cream Gatherer Name Role Phone Celio Sanders MD Primary Care Provider [phone] Reason for Visit * Reason Comments Chemotherapy Injections * Treatment/Therapy Plan Authorization (Routine) - Authorized Specialty Diagnoses / Procedures Referred By Contac t Referred To Contact Hematology and Oncology Diagnoses Recurrent prostate cancer Procedures TC LEUPROLIDE ACETATE 7.5MG, FOR DEPOST SUSPENSION (LUPRON DEPOT) Ronnie Vazquez MD [address] [place] [address] [place] [address] [facility] [address] [place] [address] Referral ID Status Reason Start Date Expiration Date V isits Requested Visits Authorized [id number] Authorized 02/17/2023 02/17/2024 1 103 Encounter Details Date Type Department Care Team (Late st Contact Info) Description 06/21/2023 11:00 AM EDT Infusion Hematology Oncology at [address] [phone] Recurrent prostate cancer Social History Tobacco Use Types Packs/Day Years Used Date Smoking Tobacco: Never Smokeless Tobacco: Never Alcohol Use Standard Drinks/Week Comments Not Currently 0 (1 standard drink = 0.6 oz pur e alcohol) beer and wine twice a month [facility] Utilities Answer Date Recorded In the past 12 months has [email or web address], gas, oil, or water company threatened to [...] 2:00 PM EST Office Visit Dermatology at [place] [address] [place] [address] Prisca Hughes MD [facility] [address] [place] [address] documented as of this encounter Visit Diagnoses [...] Gluteal documented in this encounter Care Teams Cream Gatherer Relationship Specialty Start Date End Date Celio Sanders MD [address] [place] [address] PCP - General Internal Medicine 05/19/16 documented as of this encounter
--- OUTSIDE RECORDS SUMMARY | 2023-12-29 12:09 | XMS_ITS | Continuity of Care Document ---
Author Organization [place] [email or web address] Address [address] [place] [address] Assessment No assessment recorded. Plan of Treatment Reminders Order Date Submit Date Provider Last Modified By Organization Details Last Modified Time Details Appointments Annual Chronic Care (65+) 30 2023 02:10P M DEWAYNE JOHNSON Not available Not available Not available Lab None recorded . Referral None recorded . Procedures None recorded . Surgeries None recorded . Imaging None recorded . Medication Orders None recorded . Patient TargetsNo targets recorded. Patient Instructions Encounter Date Encounter Id Patient Instructions Last Modified By Organization Details Last Modified Time 12/21/2023 [id number] Dear gf, Thank you for visiting our [...] Not available 12/22/2023 08:50:55 Reason for Referral Wool Fleece Sorter Referral for Ingr owing toenail Referring Physician: Dewayne Johnson [facility] Medicine, Encounter Date: 03/21/2023 Physical Therapist Referral for Tension-type headache Referring Physician: Dewayne Johnson [facility], Encounter Date: 08/03/2023 Results Created Date Observation Date Name Description Value Unit Range Abnormal Flag Note LastModifiedBy Organization Detail LastModifiedTime 11/21/19 24 11/19/2023 CT imagi ng repor t Patien t Name: Nain Mckeon Unit #: [id number] Loc: ER Orderi ng Provid er: Grant Miguel M.D. Accoun t #: [id number] Status : DEP ER Primar y [...] tent with inject ion sites. Bladde r: [place] disten ded, to the level of the [...] ogical ly enlarg ed lymph nodes. IMPRES ANGELINE:: [place] disten ded urinar y bladde r. No focal bladde r mass or calcif icatio n. Slight ly enlarg ed prosta te with radiot herapy seeds in place. RADIAT ION DOSE DELIVE RED: Total DLP DATA REPOSI TORY: All CT scans at this facili ty are submit nadia to the Nation al Radiol ogy Data Regist ry (NRDR) [...] to clinic al indica tion); or iterat michael recons tructi on. 005: Total DLP = 0.00 mGy-cm Ordere d By: Grant Miguel M.D. CC: ------ ------ ------ ------ ------ ------ ------ ------ ------ ------ ------ ------ ---- Dictat ed By: Saroj Chau 1210 1210 Transc ribed By: Nancie Henderson 1210 This is privil eged, confid ential inform ation intend ed only for the provid er named. Any use or distri bution by any person other than this provid er is strict ly prohib ited. If you receiv e this report in error, please notify us immedi ately at [phone] and return the origin al report to us at the addres s above. Thank- you. aurelio [facility] [address], [place], [address] 12/21/2023 14:33:35 11/21/19 24 04/27/2019 imagi ng/di [...] Organization Details Recorded Time Bipolar II disorder 93888011 Active 200209/20/19 18 - Comments only - [...] He will follow up with his mental [facility] provider before making any other changes in his medicati on. 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 97161361022 103 Active 2019 Problem Code: G24.01; Problem Code Type: ICD-10; MD Joe [address], [facility] [address] , [facility] 3 23:01:29 Prediabe lucinda 646497900 Active 2020 Problem Code: R73.03; Problem Code Type: ICD-10; MD [address], [place], [address] , [facility] 4 13:24:34 Screenin g for malignan t neoplasm of colon Completed 202002/18/2021 Problem Code: Z12.11; Problem Code Type: ICD-10; Not Available [facility] 3 04:02:01 Insomnia 777596332 Active 2021 Problem Code: G47.00; Problem Code Type: ICD-10; JOHNNIE WHITEHEAD MA null, [facility] 3 09:57:48 Adult health examinat ion Active 2021 Problem Code: Z00.00; Problem Code Type: ICD-10; MD [address], [place], [address] , [facility] 4 13:24:20 Pain of toe of right foot 94686929481 9101 Completed 202107/17/2021 Problem Code: M79.674; Problem Code Type: ICD-10; Not Available [facility] 3 04:02:02 Closed fracture of distal end of radius 42746720 Completed 202104/27/2022 Problem Code: S52.572A ; Problem Code Type: ICD-10; Not Available [facility] 3 04:02:02 Pre-surg arnie evaluati on Completed 202207/02/2022 Problem Code: Z01.818; Problem Code Type: ICD-10; Not Available [facility] 3 04:02:02 Bipolar disorder 08750882 Completed 200212/01/2022 Problem Code: 296.80; Problem Code Type: ICD-9; Not Available [facility] 3 04:02:11 Therapeu tic drug monitori ng assay 56815638 Completed 201505/29/2021 Problem Code: Z51.81; Problem Code Type: ICD-10; Not Available [facility] 3 04:02:11 Pain of left wrist 01612831897 9102 Completed 202102/15/2022 Problem Code: M25.532; Problem Code Type: ICD-10; Not Available [facility] 3 04:02:11 Pain of left elbow joint 06032556501 875149 Completed 201905/27/2020 Problem Code: M25.522; Problem Code Type: ICD-10; Not Available [facility] 3 04:02:12 Christo hematuri a 750699321 Completed 201605/13/2016 Problem Code: R31.0; Problem Code Type: ICD-10; Not Available [facility] 3 04:02:13 Prostate nodule 97262989979 9109 Completed 201612/01/2022 Problem Code: N40.2; Problem Code Type: ICD-10; Not Available [facility] 3 04:02:13 Lacerati on of lip 871919174 Completed 202012/02/2020 Problem Code: S01.511A ; Problem Code Type: ICD-10; Not Available [facility] 3 04:02:14 Bleeding from nose 433060301 Completed 201802/05/2020 Problem Code: R04.0; Problem Code Type: ICD-10; Not Available [facility] 3 04:02:14 Contusio n of head 327928649 Completed 202012/02/2020 Problem Code: S00.83xA ; Problem Code Type: ICD-10; Not Available [facility] 3 04:02:14 Lesion of oral mucosa 37256302218 07800 Completed 201912/02/2020 Problem Code: K13.79; Problem Code Type: ICD-10; Not Available [facility] 3 04:02:14 Subungua l hematoma of foot 720256064 Completed 202205/11/2023 DEWAYNE JOHNSON MD [address], [place], [address] , [facility]. 4 13:24:53 Ingrowin g toenail 995521914 Completed 202305/11/[address], [place], [address] , [facility] 13:25:10 Epidermo id cyst of skin 699366024 Completed 202305/15/[address], [place], [address] , [facility] 19:01:09 Allergic rhinitis 52926526 Active [address], [place], [address] , [facility] 13:24:22 Tension- type headache 327874273 Active [address], [facility] [address] , [facility] 21:05:07 Disorder of vision 53858875 Completed 202305/15/[address], [place], [address] , [facility] 4 19:01:05 Dental abscess 058233385 Active [address], [place], [address] , [facility] 13:17:37 Blood in urine 93573596 Active [address], [place], [address] , [facility] 14:03:17 Unsteady when walking 75261449 Active [address], [place], [address] , [facility] 15:05:09 Constipa tion 38314613 Active 2023 Mona oneil, [facility] 4 09:28:01 Retentio n of urine 840903440 Active 2023 Mona oneil, [facility] 4 10:45:13 Catheter ization of urinary bladder by indwelli ng suprapub ic catheter Active 2023 DEWAYNE JOHNSON MD [facility] [address], [place], [address] , [facility] 4 20:37:38 Problem Notes None recorded. Procedures Surgical History Date Name Laterality Status Provider Name and Address Organization Details Recorded Time 01/21/20 transurethral biopsy of prostate completed PABLO HITCHCOCK RN [facility] 02/01/2023 08:36:09 Imaging Results None recorded. Procedure [...] 0z of liquid. Take as needed. 12/03 [facility] Not Available Not Available Not Available methocarb sugey 500 mg tablet Take 1 tab by mouth three times daily 04/23 completed Not Available Not Available Not Available lamotrigi ne 150 mg tablet TAKE ONE TABLET BY MOUTH TWICE A DAY active Not Available Not Available No t Available bicalutam desi 50 mg tablet Take 1 tablet by mouth daily 06/14 completed [facility] Not Available Not Available Not Available nystatin [...] 1 tab by mouth daily. 08/03 completed [facility] Not Available Not Available Not Available metronida [...] mouth at HS as needed 11/15 completed ON LICENSE OF [facility] Not Available Not Available Not [...] Not Available Not Available No t Available [facility] Levothyro xine Sodium 50 mcg tablet 1 [...] nightly as needed for anxiety 12/03 completed [facility] Not Available Not Available [...] by mouth daily at bedtime 2017 active [facility] Not Available Not Available Not Avai lable [...] e 50 mcg/actua tion nasal spray,[employer] pension [place] 1 spray twice a day by intranas [...] 2022 active Not Available Not Available Not Avmonie mena [employer]Yumiko thwash BLM 5 ml swish and [...] capsule by mouth once a day active [facility] Not Available Not Available Not [...] Updated DateTime 4 160.66 cm 31.5 kg/m2 28806.0 3 g 97.8 [degF] 97 % 97 % 74 /min 124 mm[Hg] 78 mm[Hg] JOHNNIE WHITEHEAD MA [facility] 4 14:29:20 Social History Question Answer Notes LastModified by Organizat ion Details LastModified Time Tobacco Smoking Status Former Smoker couple years in college JOHNNIE WHITEHEAD MA null, [facility] 02/17/2023 13:45:19 Do You Have An Advance [...] Or The Highest Degree You Have Received? [id number] Information not available 02/17/2023 How Many Times Per Week Do You Exercise? 5-7 Times Per Week Information not available 02/17/2023 When Did You Quit Smoking? 16+yearssin celastcigege ette Information not available 02/17/2023 What Do You Do For Fun? Swim, Pickleball, Walk Dog, Read Information not available 02/17/2023 Would You Say That, In General, Your Health Is Good Information not available 02/17/2023 Who Do You Live With? Spouse And Dog Information not available 02/17/2023 Do You Have A Medical Power Of Plastics Nurse? No Paperwork Given Information not available 02/17/2023 [...] preservative free, adsorbed 07/26/2017 completed Not Available [facility] 01/14/2023 04:07:01 Tdap 01/25/2007 completed Not Available [facility] 04:07:03 zoster live 09/21/2011 completed Not Available [facility] 01/14/2023 04:07:03 Pneumococcal conjugate PCV 13 06/19/2015 completed Not Available [facility] 01/14/2023 04:07:04 Influenza, high-dose, trivalent, PF 12/08/2017 completed Not Available [facility] 01/14/2023 04:07:04 Influenza, split virus, trivalent, preservative 02/11/2016 completed Not Available [facility] 01/14/2023 04:07:05 Influenza, split virus, quadrivalent, preservative 11/26/2016 completed Not Available [facility] 01/14/2023 04:07:05 Influenza, high-dose, quadrivalent, PF 12/02/2020 completed Not Available [facility] 01/14/2023 04:07:06 Influenza, high-dose, quadrivalent, PF 12/04/2019 completed Not Available [facility] 01/14/2023 04:07:06 Influenza, high-dose, quadrivalent, PF 12/14/2021 completed Not Available [facility] 01/14/2023 04:07:06 COVID-19, mRNA, LNP-S, PF, 100 mcg/0.5mL dose or 50 mcg/0.25mL dose 05/30/2020 completed Not Available [facility] 01/14/2023 04:07:07 COVID-19, mRNA, LNP-S, PF, 100 mcg/0.5mL dose or 50 mcg/0.25mL dose 01/07/2021 completed Not Available [facility] 01/14/2023 04:07:07 SARS-COV-2 (COVID-19) vaccine, UNSPECIFIED 05/02/2020 completed Not Available [facility] 01/14/2023 04:07:07 SARS-COV-2 (COVID-19) vaccine, UNSPECIFIED 06/23/2021 completed Not Available [facility] 01/14/2023 04:07:08 SARS-COV-2 (COVID-19) vaccine, UNSPECIFIED 12/14/2021 completed Not Available [facility] 01/14/2023 04:07:08 Pneumococcal conjugate PCV20, polysaccharide [id number] conjugate, adjuvant, PF 07/27/2022 completed Not Available [facility] 01/14/2023 04:07:08 COVID-19, mRNA, LNP-S, bivalent, PF, 30 mcg/0.3 mL dose 07/27/2022 completed Not Available [facility] 01/15/20 04:07:08 pneumococcal polysaccharide PPV23 05/24/2014 completed Not Available [facility] 2022 04:07:09 influenza, unspecified formulation 01/22/2019 completed Not Available [facility] 01/14/2023 04:07:11 SARS-COV-2 (COVID-19) vaccine, UNSPECIFIED 01/03/2023 completed LAINE WELLER, [facility] 02/17/2023 13:55:11 influenza, unspecified formulation 11/18/2022 completed LAINE WELLER, [facility] 02/17/2023 13:55:44 Influenza, high-dose, quadrivalent, PF 11/18/2022 completed Not Available [facility] 03/18/2023 05:33:19 Past Encounters Encounter ID Performer Location Encounter Start Date Encounter Closed Date Diagnosis/Indication Diagnosis SNOMED-CT Code Diagnosis ICD10 Code [id number] DEWAYNE JOHNSON MD [address] [address] 12/21/2023 14:17:17 12/21/2023 15:20:30 Malignant tumor of prostate 732009375 C61 Prediabetes 081716894 R7 3.03 Health Concerns Section Related Observation LastModified by Organization Detai ls LastModified Time None Recorded Concern Status LastModified by Organization Details LastModified Time None Recorded Payers Encounter Date Sequence Insurance Name Policy Number Policy Walker Covered Member ID Walker Member ID Guarantor Name 12/21/2023 2 [employer] (MEDICARE SUPPLEMENT) Nain Mckeon [id number] Nain Mckeon 12/21/2023 1 [place] [employer] Nain Mckeon [id number] Nain Mckeon Notes Date Note Type Note Provider Name and Address Organization Details Recorded Time 12/21/2023 text/html HPI Notes: The patient presents [...] prevent the progression of prediabetes to diabetes. MD [address], [place], [address], [facility]. 12/24/2023 20:38:34
--- OUTSIDE RECORDS SUMMARY | 2023-12-29 12:09 | XMS_ITS | Encounter Summary ---
Author Organization [facility] Address [facility] [place] [address] Care Team Providers Care Dietary Cook Name Role Phone Celio Sanders MD Primary Care Provider [phone] Encounter Details Date Type Department Care Team (Latest Contact Info) Description 04/26/2023 Travel Social History Tobacco Use Types Packs/Day Years Used Date Smoking Tobacco: Never Smokeless Tobacco: Never Alcohol Use Standard Drinks/Week Comments Not Currently 0 (1 standard drink = 0.6 oz pur e alcohol) beer and wine twice a month [facility] Utilities Answer Date Recorded In the past [...] place to sleep or slept in a m[facility]p (including now)? No 02/15/2023 Sex and Gender Information Value Date Recorded Sex Assigned at Not on file Gender Identity Not on file Sexual Orientation Not on file documented as of this encounter Plan of Treatment Upcoming Encounters Date Type Department Care Team (Late st Contact Info) Description 01/24/2024 2:00 PM EST Office Visit Dermatology at [facility] [address] [place] [address] Prisca Hughes MD [facility] [address] [facility] [place] [address] documented as of this encounter Visit Diagnoses Not on filedocumented in this encounter Care Teams Dietary Cook Relationship Specialty Start Date End Date Celio Sanders MD [address] [place] [address] PCP - General Internal Medicine 05/19/16 documented as of this encounter
--- OUTSIDE RECORDS SUMMARY | 2023-12-29 12:09 | XMS_ITS | Encounter Summary ---
Author Organization [facility] Address [address] [place] [address] Care Team Providers Care Rail Car Operator Name Role Phone Celio Sanders MD Primary Care Provider [phone] Encounter Details Date Type Department Care Team (Late st Contact Info) Description 10/17/2019 Lab Requisition [facility] Pathology & Laboratory Medicine - [facility] [address] [place], [place] [address] Outr Resulting Lab, Provider Social History Tobacco [...] Outr Resulting Lab MICROBIOLOGY - GENERAL ORDERABLES [facility] [address] [place] [address] * COVID-19 TESTING (10/17/2019 15:50 EDT) COVID-19 rt-PCR Result Negative Negative 10/18/2019 0:27 EDT [facility] Comment: This test has not [...] history, and epidemiological information. Performed on the Lumenergi Fusion instrument Performing Lab [place] [facility] Lab 10/18/2019 0:27 EDT [facility] Swab 10/17/2019 15:5 0 EDT 10/17/2019 20:58 EDT Provider Outr Resulting Lab MICROBIOLOGY - GENERAL ORDERABLES [facility] [address] [place] [address] documented in this encounter Visit Diagnoses Not on filedocumented in this encounter Care Teams Rail Car Operator Relationship Specialty Start Date End Date Celio Sanders MD [address] [place], [place] [id number] PCP - General 04/30/16 documented as of this encounter
--- OUTSIDE RECORDS SUMMARY | 2023-12-29 12:09 | XMS_ITS | Encounter Summary ---
[place] [address] Care Team Providers Care Firer Bisque Kiln Name Role Phone Celio Sanders MD Primary Care Provider [phone] Reason for Visit * Reason Comments Injections * Treatment/Therapy Plan Authorization (Routine) - Authorized Specialty Diagnoses / Procedures Referred By Contac t Referred To Contact Hematology and Oncology Diagnoses Recurrent prostate cancer Procedures TC LEUPROLIDE ACETATE 7.5MG, FOR DEPOST SUSPENSION (LUPRON DEPOT) Ronnie Vazquez MD [address] [place] [address] [place] [address] [address] Referral ID Status Reason Start Date Expiration Date V isits Requested Visits Authorized [id number] Authorized 02/17/2023 02/17/2024 1 103 Encounter Details Date Type Department Care Team (Late st Contact Info) Description 03/29/2023 10:30 AM EST Infusion Hematology Oncology at [address] [id number] Recurrent prostate cancer Social History Tobacco Use Types Packs/Day Years Used Date Smoking Tobacco: Never Smokeless Tobacco: Never Alcohol Use Standard Drinks/Week Comments Not Currently 0 (1 standard drink = 0.6 oz pur e alcohol) beer and wine twice a month [facility] Utilities Answer Date Recorded In the past 12 months has [employer], gas, oil, or water company threatened to [...] PM EST Office Visit Dermatology at [address] [place] [address] Prisca Hughes MD [facility] [address] [place] [address] documented as of this encounter Visit Diagnoses [...] Gluteal documented in this encounter Care Teams Firer Bisque Kiln Relationship Specialty Start Date End Date Celio Sanders MD [address] [place] [address] PCP - General Internal Medicine 05/19/16 documented as of this encounter
--- OUTSIDE RECORDS SUMMARY | 2023-12-29 12:09 | XMS_ITS | Encounter Summary ---
Author Organization [facility] Address [address] [place] [address] Care Team Providers Care Culture Media Laboratory Assistant Name Role Phone Unknown, Provider Primary Care Provider [phone] Encounter Details Date Type Department Care Team (Late st Contact Info) Description 04/27/2016 Results Only [facility] [phone] Elias Curran MD [address] [place] [address] [place] [address] Social History Tobacco Use Types [...] ? NAIN LIPSCOMB ? Accession #: ? [id number] ? : ? 1950 (Age: 65) ??M [...] remaining) pattern: Grade 3. ? - Total Jackson score: 7. ? - Number of cores involved/total number of cores: 1 out of 1. ? - Percentage of tissue involved by tumor: 95%. - Perineural invasion: Present. B. PROSTATE, RIGHT BASE MEDIAL, NEEDLE CORE BIOPSY: - ??Adenocarcinoma of the prostate. See comment. ? - Primary (predominant) pattern: Grade 4. ? - Secondary (worst remaining) pattern: Grade 3. ? - Total Jackson score: 7. ? - Number of cores involved/total number of cores: 1 out of 1. ? - Percentage of tissue involved by tumor: 95%. - Perineural invasion: Present. C. PROSTATE, RIGHT MID LATERAL, NEEDLE CORE BIOPSY: - ??Adenocarcinoma of the prostate. See comment. ? - Primary (predominant) pattern: Grade 4. ? - Secondary (worst remaining) pattern: Grade 4. ? - Total Jackson score: 8. ? - Number of cores involved/total number of cores: 1 out of 1. ? - Percentage of tissue involved by tumor: 90%. D. PROSTATE, RIGHT MID MEDIAL, NEEDLE CORE BIOPSY: - ??Adenocarcinoma of the prostate. See comment. ? - Primary (predominant) pattern: Grade 4. ? - Secondary (worst remaining) pattern: Grade 4. ? - Total Jackson score: 8. ? - Number of cores [...] remaining) pattern: Grade 3. ? - Total Jackson score: 7. ? - Number of cores [...] and stroma with acute inflammation. Comment: ? Recycling Attendant slides of this case were reviewed at [...] (ASCP) 04/28/2016 11:00 AM End of Report [facility] 04/27/2016 9:09 EST 04/28/2016 9:09 EST Elias Curran MD PATHOLOGY ORDERAB LES [facility] [address] [place] [address] documented in this encounter Visit Diagnoses Not on filedocumented in this encounter Care Teams Culture Media Laboratory Assistant Relationship Specialty Start Date End Date Unknown, Provider, PCP - General 04/28/16 04/29/16 documented as of this encounter
--- OUTSIDE RECORDS SUMMARY | 2023-12-29 12:09 | XMS_ITS | Encounter Summary ---
Author Organization [facility] Address [facility] [place] [address] Care Team Providers Care Photographic Technician Name Role Phone Celio Sanders MD Primary Care Provider [phone] Encounter Details Date Type Department Care Team (Late st Contact Info) Description 03/02/2023 Orders Only Hematology/Oncology at [address] [address] Bisi Cheng APRN [facility] [place] [address] Prostate cancer metastatic to intrapelvic lymph node; Malignant neoplasm of prostate Social History Tobacco Use Types Packs/Day Years Used Date Smoking Tobacco: Never Smokeless Tobacco: Never Alcohol Use Standard Drinks/Week Comments Not Currently 0 (1 standard drink = 0.6 oz pur e alcohol) beer and wine twice a month [facility] Utilities Answer Date Recorded In the past 12 months has [employer], gas, oil, or water [employer] threatened to shut off services in your [...] [facility] + Hospit[facility] [address] [place] [address] Prisca Hughes MD [facility] [address] [place] [place] [address] documented as of this encounter Visit Diagnoses Diagnosis Prostate cancer metastatic to intrapelvic lymph node Malignant neoplasm of prostate documented in this encounter Care Teams Photographic Technician Relationship Specialty Start Date End Date Celio Sanders MD [address] [place] [address] PCP - General Internal Medicine 05/19/16 documented as of this encounter
--- OUTSIDE RECORDS SUMMARY | 2023-12-29 12:09 | XMS_ITS ---
Author Organization [facility] Address [facility] [place] [address] Care Team Providers Care Metal Stamping Machine Operator Name Role Phone Celio Sanders [...] Current Oncology Plans Leuprolide (Lupron Depot) injection ([facility], [place], MAN, NDP, [facility], [facility], [facility], [facility])* Plan Start Date:03/01/2023 Plan Provider:Ronnie Vazquez MD [...] Discontinue Reason Plan Provider Degarelix (Firmagon) Injection ([facility], [facility], [facility], [facility] HemOnc) New Patient Induction 02/03/2023 04/26/2023 No medications scheduled. Therapy Complete Ronnie Vazquez MD Radiation Treatments * No radiation treatments are documented for this patient in Epic. Treatments may have been administered in another system.
--- OUTSIDE RECORDS SUMMARY | 2023-12-29 12:09 | XMS_ITS | Encounter Summary ---
Author Organization [facility] Address [address] [place] [address] Care Team Providers Care Automotive Product Engineer Name Role Phone Celio Sanders MD Primary Care Provider [phone] Encounter Details Date Type Department Care Team (Latest Contact Info) Description 06/17/2016 15:52 EDT - 06/17/2016 23:59 EDT Hospital Encounter [address] [address] Unknown, Provider, Discharge Disposition: Home or Self Care Social History Tobacco Use Types Packs/Day Years Used Date Smoking Tobacco: Never Assessed Sex and Gender Information Value Date Recorded Sex Assigned at Not on file Gender Identity Not on file Sexual Orientation Not on file documented as of this encounter Discharge Disposition Disposition Code Departure Means Destination Home or Self Retirement documented in this encounter Plan of Treatment Not on file documented as of this encounter Visit Diagnoses Not on filedocumented in this encounter Care Teams Automotive Product Engineer Relationship Specialty Start Date End Date Celio Sanders MD [address] [place] [address] PCP - General 04/30/16 documented as of this encounter
--- OUTSIDE RECORDS SUMMARY | 2023-12-29 12:09 | XMS_ITS | Encounter Summary ---
Author Organization [facility] Address [address] [place] [address] Care Team Providers Care Hypoid Gear Generator Name Role Phone Celio Sanders MD Primary Care Provider [phone] Encounter Details Date Type Department Care Team (Late st Contact Info) Description 07/31/2020 Lab Requisition [facility] Pathology & Laboratory Medicine - [facility] [address] [place], [place] [address] Outr Resulting Lab, Provider Social History Tobacco [...] 2.8 - 5.3 pg/mL 07/31/2020 16:53 EDT [facility] Blood VENOUS BLOOD / Unknown 07/31/2020 8:19 EDT 07/31/2020 16:19 EDT Provider Outr Resulting Lab CHEMISTRY & BLOOD GAS ORDERABLES [facility] [address] [place] [address] documented in this encounter Visit Diagnoses Not on filedocumented in this encounter Care Teams Hypoid Gear Generator Relationship Specialty Start Date End Date Celio Sanders MD [address] [place] [address] PCP - General 04/30/16 documented as of this encounter
--- OUTSIDE RECORDS SUMMARY | 2023-12-29 12:09 | XMS_ITS | Encounter Summary ---
Author Organization [facility] Address [facility] [place] [address] Care Team Providers Care Equipment Analyst Name Role Phone Celio Sanders MD Primary Care Provider [phone] Encounter Details Date Type Department Care Team (Latest Contact Info) Description 10/24/2023 Travel Social History Tobacco Use Types Packs/Day Years Used Date Smoking Tobacco: Never Smokeless Tobacco: Never Alcohol Use Standard Drinks/Week Comments Not Currently 0 (1 standard drink = 0.6 oz pur e alcohol) beer and wine twice a month [facility] Utilities Answer Date Recorded In the [...] 2:00 PM EST Office Visit Dermatology at [facility] [address] [place] [address] Prisca Hughes MD [facility] DR PHOEBE [place] [address] documented as of this encounter Visit Diagnoses Not on filedocumented in this encounter Care Teams Equipment Analyst Relationship Specialty Start Date End Date Celio Sanders MD [address] [place] [address] PCP - General Internal Medicine 05/19/16 documented as of this encounter
--- OUTSIDE RECORDS SUMMARY | 2023-12-29 12:09 | XMS_ITS | Encounter Summary ---
Author Organization [facility] Address [address] [place] [address] Care Team Providers Care Outsole Splicer Name Role Phone Celio Sanders MD Primary Care Provider Encounter Details Date Type Department Care Team (Late st Contact Info) Description 06/17/2016 Results Only [facility] [phone] Elias Curran MD [address] [place] [address] [place] [phone] Social History Tobacco Use Types Packs/Day Years [...] ? NAIN LIPSCOMB ? Accession #: ? [id number] : ? 1950 (Age: 65) ??M ?Collect [...] cellular enhancement technique. ? End of Report [facility] 06/17/2016 06/18/2016 8:2 8 EDT Elias Curran MD PATHOLOGY ORDERAB LES Performing Organization Address City/State/[facility] Co de Phone Number [facility] [address] [place] [address] documented in this encounter Visit Diagnoses Not on filedocumented in this encounter Care Teams Outsole Splicer Relationship Specialty Start Date End Date Celio Sanders MD [address] [place] [address] PCP - General 04/30/16 documented as of this encounter
--- OUTSIDE RECORDS SUMMARY | 2023-12-29 12:09 | XMS_ITS | Encounter Summary ---
Author Organization [facility] Address [address] [place] [address] Care Team Providers Care Grants Administrator Name Role Phone Celio Sanders MD Primary Care Provider [phone] Encounter Details Date Type Department Care Team (Late st Contact Info) Description 10/13/2020 Lab Requisition [facility] Pathology & Laboratory Medicine - [facility] [address] [place], [place] [address] Outr Resulting Lab, Provider Social History Tobacco [...] 2.8 - 5.3 pg/mL 10/13/2020 16:07 EDT [facility] Blood VENOUS BLOOD / Unknown 10/13/2020 11:00 EDT 10/13/2020 15:36 EDT Provider Outr Resulting Lab CHEMISTRY & BLOOD GAS ORDERABLES [facility] [address] [place] [address] documented in this encounter Visit Diagnoses Not on filedocumented in this encounter Care Teams Grants Administrator Relationship Specialty Start Date End Date Celio Sanders MD [address] [place], [place] [id number] PCP - General 04/30/16 documented as of this encounter
--- OUTSIDE RECORDS SUMMARY | 2023-12-29 12:09 | XMS_ITS | Encounter Summary ---
Author Organization [facility]ending [facility] Address [facility] [place] [address] Care Team Providers Care Superintendent Distribution Name Role Phone Celio Sanders MD Primary Care Provider [phone] Encounter Details Date Type Department Care Team (Late st Contact Info) Description 04/25/2023 Telephone Hematology/Oncology at [address] [address] Hanny Laureano Social History Tobacco Use Types Packs/Day Years Used Date Smoking Tobacco: Never Smokeless Tobacco: Never Alcohol Use Standard Drinks/Week Comments Not Currently 0 (1 standard drink = 0.6 oz pur e alcohol) beer and wine twice a month [facility] Utilities Answer Date Recorded In the past [...] place to sleep or slept in a long term (including now)? No 02/15/2023 Sex and Gender Information Value Date Recorded Sex Assigned at Not on file Gender Identity Not on file Sexual Orientation Not on file documented as of this encounter Miscellaneous Notes * Telephone Encounter - Hanny Laureano - 04/25/2023 3:42 PM EST Nain is aware of his appt tomorrow day and time. Had labs done last week at [facility] documented in this encounter Plan of Treatment Upcoming Encounters Date Type Department Care Team (Late st Contact Info) Description 01/24/2024 2:00 PM EST Office Visit Dermatology at [facility] [address] [place] [address] Prisca Hughes MD [facility] DR PHOEBE IBARRA-[place] [address] documented as of this encounter Visit Diagnoses Not on filedocumented in this encounter Care Teams Superintendent Distribution Relationship Specialty Start Date End Date Celio Sanders MD [address] [place] [address] PCP - General Internal Medicine 05/19/16 documented as of this encounter
--- OUTSIDE RECORDS SUMMARY | 2023-12-29 12:09 | XMS_ITS | Encounter Summary ---
Author Organization [facility] Address [facility] [place] [address] Care Team Providers Care Watch Repairer Name Role Phone Celio Sanders MD Primary Care Provider [phone] Reason for Visit * Reason Onset Date Comments Headache 05/11/2023 Encounter Details Date Type Department Care Team (Late st Contact Info) Description 05/11/2023 Telephone Hematology/Oncology at [address] [address] Yenny Pavon RN Headache Social History Tobacco Use Types Packs/Day Years Used Date Smoking Tobacco: Never Smokeless Tobacco: Never Alcohol Use Standard Drinks/Week Comments Not Currently 0 (1 standard drink = 0.6 oz pur e alcohol) beer and wine twice a month [facility] Utilities Answer Date Recorded In the [...] EST Office Visit Dermatology at [facility] [address] [place] [address] Prisca Hughes MD [facility] [address] [place] [address] documented as of this encounter Visit Diagnoses Not on filedocumented in this encounter Care Teams Watch Repairer Relationship Specialty Start Date End Date Celio Sanders MD [address] [place] [address] PCP - General Internal Medicine 05/19/16 documented as of this encounter
--- OUTSIDE RECORDS SUMMARY | 2023-12-29 12:10 | XMS_ITS | Encounter Summary ---
Author Organization [facility] [place] [address] Care Team Providers Care Pressurization Mechanic Name Role Phone Celio Sanders MD Primary Care Provider [phone] Encounter Details Date Type Department Care Team (Late st Contact Info) Description 01/03/2023 [place] [address] Allyn Del Toro RN Social History Tobacco [...] biopsy If yes, review with PCP or oven builder to discuss bridging OTC, herbal and vitamin [...] PSA: 1.7 in Oct; will recheck at [facility] (order faxed 01/03/23) MRI: 12/30/22 [...] 3rd world country): Not indicated Patient Instructions/Information: [place] at Group Exercise Instructor 5B Eat breakfast Administer fleet enema night [...] 2:00 PM EST Office Visit Dermatology at [facility] [address] [place] [address] Prisca Hughes MD [facility] DR [place] [address] documented as of this encounter Visit Diagnoses Not on filedocumented in this encounter Care Teams Pressurization Mechanic Relationship Specialty Start Date End Date Celio Sanders MD [address] [place] [address] PCP - General Internal Medicine 05/19/16 documented as of this encounter
--- OUTSIDE RECORDS SUMMARY | 2023-12-29 12:10 | XMS_ITS | Encounter Summary ---
Author Organization [facility] Address [facility] [place] [address] Care Team Providers Care Screen Cleaner Name Role Phone Celio Sanders MD Primary Care Provider [phone] Encounter Details Date Type Department Care Team (Late Contact Info) Description 01/19/2022 Telephone Radiation Oncology at [address] [address] Carmine Cheema Social History Tobacco [...] at [facility] [address] [place] [address] rPisca Hughes MD [facility] DR PHOE[address] MUHAMMAD-[place] [address] documented as of this encounter Visit Diagnoses Not on filedocumented in this encounter Care Teams Screen Cleaner Relationship Specialty Start Date End Date Celio Sanders MD [address] [place] [address] PCP - General Internal Medicine 05/19/16 documented as of this encounter
--- OUTSIDE RECORDS SUMMARY | 2023-12-29 12:10 | XMS_ITS | Encounter Summary ---
Author Organization [facility] Address [facility] [place] [address] Care Team Providers Care E Marketing Specialist Name Role Phone Celio Sanders MD Primary Care Provider [phone] Reason for Visit * Reason Onset Date Comments Other 02/23/2023 Enrolled in [employer] Encounter Details Date Type Department Care Team (Late st Contact Info) Description 02/23/2023 Telephone Hematology/Oncology at [address] [address] Tracy Reno RN Other (Enrolled in [employer]) Social History Tobacco Use Types Packs/Day Years Used Date Smoking Tobacco: Never Smokeless Tobacco: Never Alcohol Use Standard Drinks/Week Comments Not Currently 0 (1 standard drink = 0.6 oz pur e alcohol) beer and wine twice a month [facility] Utilities Answer Date Recorded In the past 12 months has [employer], gas, oil, or water [employer] threatened to shut off services in your [...] 9:39 AM EST Enrolled patient electronically into [employer] with his permission due to high copayand no funding available. New script sent electronically to [facility]. Await to hear that patient qualifies for free Xtandi. [employer] phone [phone] documented in this encounter Plan of Treatment Upcoming Encounters Date Type Department Care Team (Late st Contact Info) Description 01/24/2024 2:00 PM EST Office Visit Dermatology at [facility] [address] [place] [address] Prisca Hughes MD [facility] [address] [place] [address] documented as of this encounter Visit Diagnoses Not on filedocumented in this encounter Care Teams E Marketing Specialist Relationship Specialty Start Date End Date Celio Sanders MD [address] [place] [address] PCP - General Internal Medicine 05/19/16 documented as of this encounter
--- OUTSIDE RECORDS SUMMARY | 2023-12-29 12:10 | XMS_ITS | Encounter Summary ---
Author Organization [facility] Address [facility] [place] [address] Care Team Providers Care Weight Clerk Name Role Phone Celio Sanders MD Primary Care Provider [phone] Encounter Details Date Type Department Care Team (Late Contact Info) Description 04/30/2022 Orders Only [place] [address] Rama Ramos APRN [facility] [place] [address] Malignant neoplasm of prostate (Primary Dx); Vitamin [...] 2:00 PM EST Office Visit Dermatology at [facility] [address] [place] [address] Prisca Hughes MD [facility] DR [place] [address] documented as of this encounter Visit Diagnoses Diagnosis Malignant neoplasm of prostate- Primary Vitamin D deficiency, unspecified documented in this encounter Care Teams Weight Clerk Relationship Specialty Start Date End Date Celio Sanders MD [address] [place] [address] PCP - General Internal Medicine 05/19/16 documented as of this encounter
--- OUTSIDE RECORDS SUMMARY | 2023-12-29 12:10 | XMS_ITS | Encounter Summary ---
Author Organization [facility] Address [facility] [place] [address] Care Team Providers Care Purse Seiner Name Role Phone Celio Sanders MD Primary Care Provider [phone] Reason for Visit * Reason Comments Establish Care * Consultation (Routine) - Closed Specialty Diagnoses / Procedures Referred By Contac t Referred To Contact Hematology and Oncology Diagnoses Malignant neoplasm of prostate Rama Ramos APRN [facility] [place] [address] [facility] Hem Onc [address] [place] [address] Referral ID Status Reason Start Date Expiration Date V isits Requested Visits Authorized [id number] Closed Assume Subset of Care 10/12/2022 10/12/2023 1 1 Encounter Details Date Type Department Care Team (Late st Contact Info) Description 11/22/2022 3:00 PM EDT Office Visit [place]ology [place] [address] Veronika Tobar MD [facility] [address] [place] [address] Malignant neoplasm of prostate Social History Tobacco [...] from the original note were not included. 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 VUS in AXIN2 and CTNNA1 HPI: [...] DIAGNOSTIC performed by Nicky Bray MD at [facility] ENDOSCOPY PROSTATE BIOPSY MEDS: Medications 11/22/22 9214 Medication Sig Taking? 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 [employer] [...] criteria for PSA recurrence based on the Lake criteria, I agree with restaging exams and [...] PM EST Office Visit Dermatology at [address] [place] [address] Prisca Hughes MD [facility] [address] [place] [address] Scheduled Referrals Name Type Priority Associated Diagnoses Order Schedule Referral to Hematology and Oncology Outpatient Referral Routine Malignant neoplasm of prostate Ordered: 10/12/2022 documented as of this encounter Visit Diagnoses Diagnosis Malignant neoplasm of prostate documented in this encounter Care Teams Purse Seiner Relationship Specialty Start Date End Date Celio Sanders MD [address] [place] [address] PCP - General Internal Medicine 05/19/16 documented as of this encounter
--- OUTSIDE RECORDS SUMMARY | 2023-12-29 12:10 | XMS_ITS | Encounter Summary ---
Author Organization [facility] Address [facility] [place] [address] Care Team Providers Care Professor Of Sport Management Name Role Phone Celio Sanders MD Primary Care Provider [phone] Encounter Details Date Type Department Care Team [...] Dermatology at [facility] [address] [place] [address] Prisca Hughes MD [facility] [address] [place] [address] documented as of this encounter Visit Diagnoses Not on filedocumented in this encounter Care Teams Professor Of Sport Management Relationship Specialty Start Date End Date Celio Sanders MD [address] [place], [place] [address] PCP - General Internal Medicine 05/19/16 documented as of this encounter
--- OUTSIDE RECORDS SUMMARY | 2023-12-29 12:10 | XMS_ITS | Encounter Summary ---
Author Organization [facility] Address [facility] [place] [address] Care Team Providers Care Slide Fastener Repairer Name Role Phone Celio Sanders MD Primary Care Provider [phone] Encounter Details Date Type Department Care Team (Late st Contact Info) Description 02/22/2023 Telephone Hematology/Oncology at [address] [address] Harjinder Snyder MD [facility] HEMATOLOGY [place] [address] Social History Tobacco Use Types Packs/Day Years Used Date Smoking Tobacco: Never Smokeless Tobacco: Never Alcohol Use Standard Drinks/Week Comments Not Currently 0 (1 standard drink = 0.6 oz pur e alcohol) beer and wine twice a month [facility] Utilities Answer Date Recorded In the past 12 months has [employer], gas, oil, or water [employer] threatened to shut off services in your [...] at [facility] [address] [place] [address] Prisca Hughes MD [facility] [address] PH[facility] [place] [address] documented as of this encounter Visit Diagnoses Diagnosis Prostate cancer metastatic to intrapelvic lymph node documented in this encounter Care Teams Slide Fastener Repairer Relationship Specialty Start Date End Date Celio Sanders MD [address] [place] [address] PCP - General Internal Medicine 05/19/16 documented as of this encounter
--- OUTSIDE RECORDS SUMMARY | 2023-12-29 12:10 | XMS_ITS | Encounter Summary ---
Author Organization [facility] Address [facility] [place] [address] Care Team Providers Care Service Tech Name Role Phone Celio Sanders MD Primary Care Provider [phone] Encounter Details Date Type Department Care Team (Latest Contact Info) Description 10/15/2021 1:00 PM EDT TH Visit (TeleHealth) Hematology [place] [phone] Remy Barillas MD [facility] [place] [address] Malignant neoplasm of prostate Social History Tobacco [...] years. 9. 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 This result is consistent with a diagnosis [...] BRCA2, BRIP1, CDH1, CDK4, CDKN2A (p14ARF), CDKN2A ([id number]), CHEK2, CTNNA1, DICER1, EPCAM (EPCAM: Deletion/duplication testing [...] the AXIN2 and CTNNA1 genes, specifically c.1531A>T (p.Qvq453Ftk) and c.515A>T (p.Lgf845Frk), were detected. ? Interpretation: The most significant consequences of carrying a pathogenic variant in BRCA2 are increased risks forbreast cancer and ovarian cancer in women. For men, the most significant consequence is for prostate cancer so this finding is felt to be related to Nain's cancer. Other cancers associated with EDJM4etv breast cancer in men, pancreatic, and melanoma. [...] ?? Nain's sons live in [place] and [place]. They can go to the [...] the gene with no increased cancer risks. [employer] is continually collecting and analyzing their data, [...] and mailing address stay updated in the [facility] system, in order for us to reach [...] in the future, Dr. Ara Mary, a hand iii cutter at [facility] in [place], is willing to discuss these screening options with Nain. Nain can schedule an appointment with her by reaching her paralegal secretary at [phone]. ?? Prostate Cancer Screening for Nain's sons [...] Periodic colonoscopy screening as recommended by Nain's hand iii cutter. ?? HPI Nain Mckeon is seen in [...] nocturia, 1-2x/night. Soc Hx: , lives in [place], [place]. He goes to [place] from December to June. 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 [place] score was 8 in two of the [...] 2:00 PM EST Office Visit Dermatology at [address] [address] Prisca Hughes MD [facility] DR [place] [address] documented as of this encounter Visit Diagnoses Diagnosis Malignant neoplasm of prostate documented in this encounter Care Teams Service Tech Relationship Specialty Start Date End Date Celio Sanders MD [address] [place] [address] PCP - General Internal Medicine 05/19/16 documented as of this encounter
--- OUTSIDE RECORDS SUMMARY | 2023-12-29 12:10 | XMS_ITS | Encounter Summary ---
Author Organization Replaced By [facility] Address [facility] [place] [address] Care Team Providers Care Ladies Underwear Operator Name Role Phone Celio Snaders MD Primary Care Provider [phone] Encounter Details Date Type Department Care Team [...] 2:00 PM EST Office Visit Dermatology at [facility] [address] [place] [address] Prisca Hughes MD [facility] DR [place] [address] documented as of this encounter Visit Diagnoses Not on filedocumented in this encounter Care Teams Ladies Underwear Operator Relationship Specialty Start Date End Date Celio Sanders MD [address] [place], [place] [address] PCP - General Internal Medicine 05/19/16 documented as of this encounter
--- OUTSIDE RECORDS SUMMARY | 2023-12-29 12:10 | XMS_ITS | Encounter Summary ---
Author Organization [facility] Address [facility] [place] [address] Care Team Providers Care Manager Casino Name Role Phone Celio Sanders MD Primary Care Provider [phone] Encounter Details Date Type Department Care Team ([facility] Contact Info) Description 02/04/2023 Orders Only Hematology/Oncology at [address] [phone] Bisi Cheng APRN [facility] [place] [address] Prostate cancer metastatic to intrapelvic lymph node [...] 2:00 PM EST Office Visit Dermatology at [facility] [address] [address] Prisca Hughes MD [facility] DR [place] [address] documented as of this encounter Visit Diagnoses Diagnosis Prostate cancer metastatic to intrapelvic lymph node documented in this encounter Care Teams Manager Casino Relationship Specialty Start Date End Date Celio Sanders MD [address] [place] [address] PCP - General Internal Medicine 05/19/16 documented as of this encounter
--- OUTSIDE RECORDS SUMMARY | 2023-12-29 12:10 | XMS_ITS | Encounter Summary ---
Author Organization [facility] Address [facility] [place] [address] Care Team Providers Care Care Rep Name Role Phone Celio Sanders MD Primary Care Provider [phone] Encounter Details Date Type Department Care Team (Late st Contact Info) Description 01/25/2023 [place] [phone] Nick Kelly MD [facility] [place] [address] Social History Tobacco Use Types Packs/Day Years [...] 01/25/2023 4:41 PM EST Copied from CRM #[id number]. Topic: Specialty Dept CRMs - Generic Call [...] EST Office Visit Dermatology at [facility] [address] [place] [address] Prisca Hughes MD [facility] [place] [address] documented as of this encounter Visit Diagnoses Not on filedocumented in this encounter Care Teams Care Rep Relationship Specialty Start Date End Date Celio Sanders MD [address] [place] [address] PCP - General Internal Medicine 05/19/16 documented as of this encounter
--- OUTSIDE RECORDS SUMMARY | 2023-12-29 12:10 | XMS_ITS | Encounter Summary ---
Author Organization [facility] Address [facility] [place] [address] Care Team Providers Care Automotive Service Advisor Name Role Phone Celio Sanders MD Primary Care Provider [phone] Encounter Details Date Type Department Care Team (Late st Contact Info) Description 02/24/2023 Telephone Hematology/Oncology at [address] [address] Kori Haas, RN Social History [...] Haas, RN - 02/24/2023 2:37 PM EST [facility] sent in notification the Xtandi was approved. Contacted Nain to let him it was approved and provided the phone number to call to set up a delivery date in the event he does nohear from them first. The number given to contact was [phone]. Nain verbalized understanding and in agreement with the plan. documented in this encounter Plan of Treatment Upcoming Encounters Date Type Department Care Team (Late st Contact Info) Description 01/24/2024 2:00 PM EST Office Visit Dermatology at [facility] [address] [place] [address] Prisca Hughes MD [facility] DR [place] [address] documented as of this encounter Visit Diagnoses Not on filedocumented in this encounter Care Teams Automotive Service Advisor Relationship Specialty Start Date End Date Celio Sanders MD [address] [place] [address] PCP - General Internal Medicine 05/19/16 documented as of this encounter
--- OUTSIDE RECORDS SUMMARY | 2023-12-29 12:10 | XMS_ITS | Encounter Summary ---
Author Organization [facility] Address [facility] [place] [address] Care Team Providers Care Cake Press Operator Helper Name Role Phone Celio Sanders MD Primary Care Provider [phone] Reason for Visit * Reason Comments Injections Degarelix * Treatment/Therapy Plan Authorization (Routine) - Closed Specialty Diagnoses / Procedures Referred By Contac t Referred To Contact Hematology and Oncology Diagnoses Prostate cancer metastatic to intrapelvic lymph node Procedures Degarelix (Firmagon) Injection ([facility], [facility], [facility] HemOnc) New Patient Induction - As of 02/01/2023 11:18 AM Ronnie Vazquez MD [address] [place] [address] [place] [address] St Hem Onc Infusion [address] [place] [phone] Referral ID Status Reason Start Date Expiration Date Visits Re quested Visits Authorized [id number] Closed 02/01/2023 02/01/2024 99 99 Encounter Details Date Type Department Care Team (Late st Contact Info) Description 02/03/2023 1:00 PM EST Infusion Hematology Oncology at [address] [address] Prostate cancer metastatic to intrapelvic [...] 2:00 PM EST Office Visit Dermatology at [facility] [address] [place] [phone] Prisca Hughes MD [facility] DR [place] [address] documented as of this encounter Visit Diagnoses [...] section) documented in this encounter Care Teams Cake Press Operator Helper Relationship Specialty Start Date End Date Celio Sanders MD [address] [place] [address] PCP - General Internal Medicine 05/19/16 documented as of this encounter
--- OUTSIDE RECORDS SUMMARY | 2023-12-29 12:10 | XMS_ITS | Encounter Summary ---
Author Organization [facility] Address [facility] [place] [address] Care Team Providers Care Biztalk Software Developer Name Role Phone Celio Sanders MD Primary Care Provider [phone] Encounter Details Date Type Department Care Team [...] [facility] [address] [place] [address] Prisca Hughes MD [facility] DR PHOE[place] [address] documented as of this encounter Visit Diagnoses Not on filedocumented in this encounter Care Teams Biztalk Software Developer Relationship Specialty Start Date End Date Celio Sanders MD [address] [place] [address] PCP - General Internal Medicine 05/19/16 documented as of this encounter
--- OUTSIDE RECORDS SUMMARY | 2023-12-29 12:10 | XMS_ITS | Encounter Summary ---
Author Organization [facility] Address [facility] [place] [address] Care Team Providers Care Upholsterer Assembly Line Name Role Phone Celio Sanders MD Primary Care Provider [phone] Encounter Details Date Type Department Care Team (Late st Contact Info) Description 02/17/2023 Orders Only Radiation Oncology at [address] [phone] Ronnie Vazquez MD [address] [place] [address] DR RADIATION ONCOLOGY [place], [place] [id number] Social History Tobacco Use Types Packs/Day Years Used Date Smoking Tobacco: Never Smokeless Tobacco: Never Alcohol Use Standard Drinks/Week Comments Not Currently 0 (1 standard drink = 0.6 oz pur e alcohol) beer and wine twice a month [facility] Utilities Answer Date Recorded In the past 12 months has [employer], gas, oil, or water [employer] threatened to shut off services in your [...] place to sleep or slept in a alf (including now)? No 02/15/2023 Sex and Gender Information Value Date Recorded Sex Assigned at Not on file Gender Identity Not on file Sexual Orientation Not on file documented as of this encounter Plan of Treatment Upcoming Encounters Date Type Department Care Team (Late st Contact Info) Description 01/24/2024 2:00 PM EST Office Visit Dermatology at [facility] [address] [place] [address] Prisca Hughes MD [facility] DR PHOE[address] [place] [address] documented as of this encounter Visit Diagnoses Not on filedocumented in this encounter Care Teams Upholsterer Assembly Line Relationship Specialty Start Date End Date Celio Sanders MD [address] [place] [address] PCP - General Internal Medicine 05/19/16 documented as of this encounter
--- OUTSIDE RECORDS SUMMARY | 2023-12-29 12:10 | XMS_ITS | Encounter Summary ---
Author Organization [facility] Address [facility] [place] [address] Care Team Providers Care Food Scientist Name Role Phone Celoi Sanders MD Primary Care Provider [phone] Encounter Details Date Type Department Care Team (Late st Contact Info) Description 05/11/2022 10:15 AM EST Office Visit Radiation Oncology at [address] [phone] Rama Ramos APRN [facility] [place] [address] Malignant neoplasm of prostate (Primary Dx) Social [...] this encounter Progress Notes * Rama Ramos, LINE ANALYST - 05/11/2022 10:15 AM ESTSummary: 71 year old M dx high risk prostate cancer. Compl RT 10/27/16. Compl 3 years ADT w/ final dose 05/2019 [facility] [place] [address] Phone: RADIATION ONCOLOGY FOLLOW UP NOTE Patient Nain Mckeon 1950 PCP: Celio Sanders MD Urologist: Radiation oncologist: Dr. Ronnie Vazquez Chief Complaint: follow up/labs for prostate cancer Time since completed RT:10/27/16 ADT:3 years of Lupron or eligard with last dose 05/04/2019 Tried and stopped abiraterone /pred d/t not patrick pred with bipolar d.o. This was started in [place] and ended when he returned to [place]. Current treatment:Surveillance HPI: Per Dr Ronnie Vazquez [...] LN no longer seen). Pt was in [place] for a period of 5 months and he received a 22.5mg leuprolide there on 05/15/2018. The facility [facility] and Provider Sp Coreas MD. 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 Smoking:none [...] of manic sx. He had this in [place] during a visitthere but only on x 1 month and could not tolerate so stopped as soon as return to [place]. Concern at this time is that while there are no urinary sx of concern and seeing urology in summer,had a smooth prostate he now had doubling time of 6 months in January with PSA 0.56 and now effectively almost doubled in 3 months with and PSA rise to 0.98. While making a couple of trips of several months to [place] during his lupron tx period, he did [...] lupron and eligard in past (eligard in [place] when he was there for a period of 5months) x 3 years. Abiraterone and pred started in [place] he states and tried but did not tolerate the prednisone as he experienced manic sx so needed to stop this combo when he returned to [place]. Regino not see dates on this. I do not think he has tried enzalutamide. He was aware at one point that a possible return to lupron might be needed but his Dr in [place] stated in note reluctance to dothis based on alf CV risk factors. There is also an added risk of CV dz in use of antipsychotics which pt requires for management of bipolar disorder. # survivorship/lifestyle/wellness: Genetic Risk Evaluation: Body weight/nutrition: Exercise: swims 3-4 days a week. Plays Vite ball. He fx wrist a couple weeks [...] the radiation therapy/prostate cancer Rama Ramos MSN, LINE ANALYST, WIND TUNNEL ENGINEER-C Nurse Practitioner Radiation Oncology documented in this encounter Plan of Treatment Upcoming Encounters Date Type Department Care Team (Late st Contact Info) Description 01/24/2024 2:00 PM EST Office Visit Dermatology at [facility] [address] [place] [address] Prisca Hughes MD [facility] DR PHOEBE [place]BAR[place] [address] documented as of this encounter Visit Diagnoses Diagnosis Malignant neoplasm of prostate- Primary documented in this encounter Care Teams Food Scientist Relationship Specialty Start Date End Date Celio Sanders MD [address] [place] [address] PCP - General Internal Medicine 05/19/16 documented as of this encounter
--- OUTSIDE RECORDS SUMMARY | 2023-12-29 12:10 | XMS_ITS | Encounter Summary ---
Author Organization [facility] Address [facility] [place] [address] Care Team Providers Care Roll Handler Name Role Phone Celio Sanders MD Primary Care Provider [phone] Encounter Details Date Type Department Care Team [...] PM EST Office Visit Dermatology at [facility] [address] [place] [address] Prisca Hughes MD [facility] [address] [place] [address] documented as of this encounter Visit Diagnoses Not on filedocumented in this encounter Care Teams Roll Handler Relationship Specialty Start Date End Date Celio Sanders MD [address] [place], [place] [address] PCP - General Internal Medicine 05/19/16 documented as of this encounter
--- OUTSIDE RECORDS SUMMARY | 2023-12-29 12:10 | XMS_ITS | Encounter Summary ---
Author Organization [facility] Address [facility] [place] [address] Care Team Providers Care Phy Therapist Name Role Phone Celio Sanders MD Primary Care Provider [phone] Encounter Details Date Type Department Care Team (Late st Contact Info) Description 02/17/2023 Orders Only Radiation Oncology at [address] [phone] Ronnie Vazquez MD [address] [place] [address] DR RADIATION ONCOLOGY [place], [place] [id number] Social History Tobacco Use Types Packs/Day Years Used Date Smoking Tobacco: Never Smokeless Tobacco: Never Alcohol Use Standard Drinks/Week Comments Not Currently 0 (1 standard drink = 0.6 oz pur e alcohol) beer and wine twice a month [facility] Utilities Answer Date Recorded In the past 12 months has [employer], gas, oil, or water [employer] threatened to shut off services in your [...] at [facility] [address] [place] [address] Prisca Hughes MD [facility] DR PHOE[address] [place] [address] documented as of this encounter Visit Diagnoses Not on filedocumented in this encounter Care Teams Phy Therapist Relationship Specialty Start Date End Date Celio Sanders MD [address] [place] [address] PCP - General Internal Medicine 05/19/16 documented as of this encounter
--- OUTSIDE RECORDS SUMMARY | 2023-12-29 12:10 | XMS_ITS | Encounter Summary ---
[place] [address] Care Team Providers Care Resident Care Manager Rn Name Role Phone Celio Sanders MD Primary Care Provider Reason for Referral * Consultation (Routine) - Closed Specialty Diagnoses / Procedures Referred By Tess de la rosa Referred To Contact Urology Diagnoses Prostate cancer metastatic to intrapelvic lymph node Ronnie Vazquez MD [address] [place] [address] [place] [address] [facility] [place] [address] Referral ID Status Reason Start Date Expiration Date V isits Requested Visits Authorized [id number] Closed Consult, Test & Treat 01/03/2023 01/03/2024 1 1 Encounter Details Date Type Department Care Team (Late st Contact Info) Description 01/03/2023 Orders Only Radiation Oncology at [address] [phone] Ronnie Vazquez MD [address] [place] [address] [place] [address] Prostate cancer metastatic to intrapelvic [...] 2:00 PM EST Office Visit Dermatology at [facility] [address] [place] [address] Prisca Hughes MD [facility] DR [place] [address] Scheduled Referrals Name Type Priority Associated Diagnoses Orde r Schedule Referral to Urology Outpatient Referral Routine Prostate cancer metastatic to intrapelvic lymph node Ordered: 01/03/2023 documented as of this encounter Visit Diagnoses Diagnosis Prostate cancer metastatic to intrapelvic lymph node documented in this encounter Care Teams Resident Care Manager Rn Relationship Specialty Start Date End Date Celio Sanders MD [address] [place] [address] PCP - General Internal Medicine 05/19/16 documented as of this encounter
--- OUTSIDE RECORDS SUMMARY | 2023-12-29 12:10 | XMS_ITS | Encounter Summary ---
Author Organization [facility] Address [facility] [place] [address] Care Team Providers Care Joiner Name Role Phone Celio Sanders MD Primary Care Provider [phone] Encounter Details Date Type Department Care Team [...] at [facility] [address] [place] [address] Prisca Hughes MD [facility] DR PHOEBE [place] [address] documented as of this encounter Visit Diagnoses Not on filedocumented in this encounter Care Teams Joiner Relationship Specialty Start Date End Date Celio Sanders MD [address] [place], [place] [address] PCP - General Internal Medicine 05/19/16 documented as of this encounter
--- OUTSIDE RECORDS SUMMARY | 2023-12-29 12:10 | XMS_ITS | Encounter Summary ---
Author Organization [facility] Address [facility] [place] [address] Care Team Providers Care It Analyst Name Role Phone Celio Sanders MD Primary Care Provider [phone] Encounter Details Date Type Department Care Team [...] 2:00 PM EST Office Visit Dermatology at [facility] [address] [place] [address] Prisca Hughes MD [facility] DR [place] [address] documented as of this encounter Visit Diagnoses Not on filedocumented in this encounter Care Teams It Analyst Relationship Specialty Start Date End Date Celio Sanders MD [address] [place], [place] [address] PCP - General Internal Medicine 05/19/16 documented as of this encounter
--- OUTSIDE RECORDS SUMMARY | 2023-12-29 12:10 | XMS_ITS | Encounter Summary ---
[place] [address] Care Team Providers Care Assembly Line Driver Name Role Phone Celio Sanders MD Primary Care Provider Reason for Referral * Diagnostic Test (Routine) - Closed Specialty Diagnoses / Procedures Referred By Contac t Referred To Contact Radiology Diagnoses Malignant neoplasm of prostate Procedures NM PET CT PSMA Prostate (Illuccix) Rama Ramos RESPITE WORKER [facility] [place] [address] [place] [address] Referral ID Status Reason Start Date Expiration Date V isits Requested Visits Authorized [id number] Closed Specialty Service Requested 10/12/2022 04/14/2024 1 2 Reason for Visit * Diagnostic Test (Routine) - Closed Specialty Diagnoses / Procedures Referred By Contac t Referred To Contact Radiology Diagnoses Malignant neoplasm of prostate Procedures NM PET CT PSMA Prostate (Illuccix) Rama Ramos RESPITE WORKER [facility] [place] [address] [place] [address] Referral ID Status Reason Start Date Expiration Date V isits Requested Visits Authorized [id number] Closed Specialty Service Requested 10/12/2022 04/14/2024 1 2 Encounter Details Date Type Department Care Team (Latest Contact Info) Description 11/09/2022 1:29 PM EDT - 11/09/2022 11:59 PM EDT Hospital Encounter Nuclear Medicine at [facility] [place] [address] Rama Ramos RESPITE WORKER [facility] [place] [address] Malignant neoplasm of prostate Discharge Disposition: Home [...] Visit Dermatology at [address] [place] [address] Prisca Hughes MD [facility] DR PHOE[place] [address] documented as of this encounter Procedures Procedure [...] you for referring this patient to [facility]. I have personally reviewed the [...] who have questions please contact the health caregivers non medical that requested your imaging first. ? Narrative [...] you for referring this patient to [facility]. I have personally reviewed the image(s) and the resident's interpretationand agree with the findings, Matthew Price MD at 11/09/2022 4:44 PM Thank you for letting us participate in the care of this patient. If youare a health care provider and have any questions regarding this report,please contact the number below. For patients who have questions please contactthe health caregivers non medical that requested your imaging first. Rama Ramos RESPITE WORKER IMG PET ORDERABLES documented in this encounter [...] Arm documented in this encounter Care Teams Assembly Line Driver Relationship Specialty Start Date End Date Celio Sanders MD [address] [place] [address] PCP - General Internal Medicine 05/19/16 documented as of this encounter
--- OUTSIDE RECORDS SUMMARY | 2023-12-29 12:10 | XMS_ITS | Encounter Summary ---
Author Organization [facility] Address [facility] [place] [address] Care Team Providers Care Employee Placement Specialist Name Role Phone Celio Sanders MD Primary Care Provider [phone] Reason for Visit * Diagnostic Test (Routine) - Closed Specialty Diagnoses / Procedures Referred By Contac t Referred To Contact Radiology Diagnoses Malignant neoplasm of prostate Procedures NM PET CT PSMA Prostate (Illuccix) Rama Ramos EDUCATION ASSISTANT [facility] [place] [address] [facility] [place] [address] Referral ID Status Reason Start Date Expiration Date V isits Requested Visits Authorized [id number] Closed Specialty Service Requested 10/12/2022 04/14/2024 1 2 Encounter Details Date Type Department Care Team (Latest Contact Info) Description 11/09/2022 1:29 PM EDT - 11/09/2022 11:59 PM EDT Hospital Encounter [place] [address] Rama Ramos EDUCATION ASSISTANT [facility] [place] [address] Discharge Disposition: Home Social History [...] 2:00 PM EST Office Visit Dermatology at [address] [address] Prisca Hughes MD [facility] DR PHOE[place] [address] documented as of this encounter Procedures Procedure [...] Thank you for referring this patient to [facility]. I have personally reviewed the [...] who have questions please contact the health hospice patient care secretary that requested your imaging first. ? Electronically signed by: Matthew Price MD, [facility] ([phone]), at 11/09/2022 4:44 PM Narrative 11/09/2022 4:44 [...] Thank you for referring this patient to [facility]. I have personally reviewed the image(s) and the resident's interpretationand agree with the findings, Matthew Price MD at 11/09/2022 4:44 PM Thank you for letting us participate in the care of this patient. If youare a health care provider and have any questions regarding this report,please contact the number below. For patients who have questions please contactthe health hospice patient care secretary that requested your imaging first. Rama Ramos EDUCATION ASSISTANT IMG PET ORDERABLES documented in this encounter Visit Diagnoses Not on filedocumented in this encounter Care Teams Employee Placement Specialist Relationship Specialty Start Date End Date Celio Sanders MD [address] [place] [address] PCP - General Internal Medicine 05/19/16 documented as of this encounter
--- OUTSIDE RECORDS SUMMARY | 2023-12-29 12:10 | XMS_ITS | Encounter Summary ---
Author Organization [facility] Address [facility] [place] [address] Care Team Providers Care Neurosurgical Nurse Practitioner Name Role Phone Celio Sanders MD Primary Care Provider [phone] Encounter Details Date Type Department Care Team (Late st Contact Info) Description 02/23/2023 Telephone Hematology/Oncology at [address] [address] Harjinder Snyder MD [facility] [place] [address] Social History Tobacco Use Types Packs/Day Years Used Date Smoking Tobacco: Never Smokeless Tobacco: Never Alcohol Use Standard Drinks/Week Comments Not Currently 0 (1 standard drink = 0.6 oz pur e alcohol) beer and wine twice a month [facility] Utilities Answer Date Recorded In the past 12 months has [employer], gas, oil, or water [employer] [employer] threatened to shut off services in your [...] [facility] [address] [place] [address] Prisca Hughes MD [facility] [address] [place] [address] documented as of this encounter Visit Diagnoses Diagnosis Prostate cancer metastatic to intrapelvic lymph node documented in this encounter Care Teams Neurosurgical Nurse Practitioner Relationship Specialty Start Date End Date Celio Sanders MD [address] [place] [address] PCP - General Internal Medicine 05/19/16 documented as of this encounter
--- OUTSIDE RECORDS SUMMARY | 2023-12-29 12:10 | XMS_ITS | Encounter Summary ---
Author Organization [facility] Address [facility] [place] [address] Care Team Providers Care Mastic Floor Layer Name Role Phone Celio Sanders MD Primary Care Provider [phone] Reason for Visit * Consultation (Routine) - Closed Specialty Diagnoses / Procedures Referred By Contac t Referred To Contact Hematology and Oncology Diagnoses Prostate cancer metastatic to intrapelvic lymph node Ronnie Vazquez MD [address] [place] [address] [place] [address] Harjinder Ruffin MD [facility] [address] [place] [address] Referral ID Status Reason Start Date Expiration Date V isits Requested Visits Authorized [id number] Closed Consult, Test & Treat 02/01/2023 02/01/2024 1 1 Encounter Details Date Type Department Care Team (Late st Contact Info) Description 02/15/2023 3:00 PM EST Office Visit Hematology/Oncology at [address] [address] Harjinder Ruffin MD [facility] [address] [place] [address] Bisi Cheng APRN [facility] [place] [address] Malignant neoplasm of prostate; BRCA gene mutation positive Social History Tobacco Use Types Packs/Day Years Used Date Smoking Tobacco: Never Smokeless Tobacco: Never Alcohol Use Standard Drinks/Week Comments Not Currently 0 (1 standard drink = 0.6 oz pur e alcohol) beer and wine twice a month [facility] Utilities Answer Date Recorded In [...] [place] RN - 02/15/2023 3:00 PM EST [facility] New Patient Medical Oncology Note SOCIAL ASSESSMENT: See [facility] social assessment information entered. 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 [facility] [place] [address] ONCOLOGY F/u visit REFERRING: Dr Vazquez, Dr [...] biopsy revealed prostatic adenocarcinoma, Grade Group 5 (Lottsburg score 5+5=10) Genetic testing Mar 2018: pathogenic variant in BRCA2 (c.1929del, p.[id number] fs15). 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 PS: ECOG = 0 General: NAD Deferred Pathology: 01/20/2023 prostatic adenocarcinoma, Grade Group 5 (Lottsburg score 5+5=10) LABS: 02/15/2023 BUN 31, creatinine [...] radiation oncologist Dr. Victorino Hassan at the [facility] Given his high Lottsburg score question is if we should intensify [...] observed, with no substantial between-group differences in [id number]-im-[id number] measures. CONCLUSIONS In patients with prostate cancer with high-risk biochemical recurrence, enzalutamide plus leuprolide was superior to leuprolide alone with respect to metastasis-free survival; enzalutamide monotherapy was also superior to leuprolide alone. The safety profile of enzalutamide was consistent with that shown in previous clinical studies, with no apparent detrimental effect on quality of life. (Fundedby [employer] and [employer]; [employer] ClinicalTrials.gov number, [id number]. opens in new tab.) On January 20 [...] [facility] [address] [place] [address] Prisca Hughes MD [facility] [address] [place] [address] Scheduled Referrals Name Type Priority Associated Diagnoses Orde r Schedule Referral to Hematology and Oncology Outpatient Referral Routine Prostate cancer metastatic to intrapelvic lymph node Ordered: 02/01/2023 documented as of this encounter Visit Diagnoses Diagnosis Malignant neoplasm of prostate BRCA gene mutation positive documented in this encounter Care Teams Mastic Floor Layer Relationship Specialty Start Date End Date Celio Sanders MD [address] [place] [address] PCP - General Internal Medicine 05/19/16 documented as of this encounter
--- OUTSIDE RECORDS SUMMARY | 2023-12-29 12:10 | XMS_ITS | Encounter Summary ---
Author Organization [facility] Address [place] [address] Care Team Providers Care Maintenance Groundman Name Role Phone Celio Sanders MD Primary Care Provider [phone] Encounter Details Date Type Department Care Team [...] 2:00 PM EST Office Visit Dermatology at [facility] [address] [place] [address] Prisca Hughes MD [facility] [address] [place] [address] documented as of this encounter Visit Diagnoses Not on filedocumented in this encounter Care Teams Maintenance Groundman Relationship Specialty Start Date End Date Celio Sanders MD [address] [place] [address] PCP - General Internal Medicine 05/19/16 documented as of this encounter
--- OUTSIDE RECORDS SUMMARY | 2023-12-29 12:10 | XMS_ITS | Encounter Summary ---
Author Organization [facility] Address [facility] [place] [address] Care Team Providers Care Qa Software Tester Name Role Phone Celio Sanders MD Primary Care Provider [phone] Encounter Details Date Type Department Care Team [...] Visit Dermatology at [facility] [address] [place] [address] Prisca Hughes MD [facility] [place] [address] documented as of this encounter Visit Diagnoses Not on filedocumented in this encounter Care Teams Qa Software Tester Relationship Specialty Start Date End Date Celio Sanders MD [address] [place] [address] PCP - General Internal Medicine 05/19/16 documented as of this encounter
--- OUTSIDE RECORDS SUMMARY | 2023-12-29 12:10 | XMS_ITS | Encounter Summary ---
Author Organization [facility] Address [facility] [place] [address] Care Team Providers Care Rotary Cutter Feeder Name Role Phone Celio Sanders MD Primary Care Provider [phone] Encounter Details Date Type Department Care Team (Late st Contact Info) Description 07/08/2022 2:30 PM EDT Office Visit Radiation Oncology at [address] [phone] Rama Ramos APRN [facility] [place] [address] Malignant neoplasm of prostate (Primary Dx) Social [...] this encounter Progress Notes * Rama Ramos, STUMMEL SELECTOR - 07/08/2022 2:30 PM EDTSummary: 71 year old M dx high risk prostate cancer. Compl RT 10/27/16. Compl 3 years ADT w/ final dose 05/2019 [facility] [place] [address] Phone: RADIATION ONCOLOGY FOLLOW UP NOTE Patient Nain Mckeon 1950 PCP: Celio Sanders MD Urologist: Radiation oncologist: Dr. Ronnie Vazquez Chief Complaint: follow up/labs for prostate cancer Time since completed RT:10/27/16 ADT:3 years of Lupron or eligard with last dose 05/04/2019 Tried and stopped abiraterone /pred d/t not patrick pred with bipolar d.o. This was started in [place] and ended when he returned to [place]. Current treatment:Surveillance HPI: Per Dr Ronnie Vazquez [...] 5/12 cores (all on right side), T2b, [place] 8 Darlyn-neural invasion present PSA - 47.5 [...] LN no longer seen). 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 Smoking:none Alcohol:none [...] of manic sx. He had this in [place] during a vis[place]here but only on x 1 month and could not tolerate so stopped as soon as return to [place]. Monitoring of PSA continues. No urinary sx [...] lupron and eligard in past (eligard in [place] when he was there for a period of 5months) x 3 years. Abiraterone and pred started in [place] he states and tried but did not tolerate the prednisone as he experienced manic sx so needed to stop this combo when he returned to [place]. Regino not see dates on this. I do not think he has tried enzalutamide. He was [facility] at [facility] point [facility] but [facility] Dr in [place] stated in note reluctance to [place] based on terminal clerk CV risk factors. There is also an [...] the radiation therapy/prostate cancer Rama Ramos MSN, STUMMEL SELECTOR, TELEGRAPHIC SERVICE DISPATCHER-C Nurse Practitioner Radiation Oncology documented in this encounter Plan of Treatment Upcoming Encounters Date Type Department Care Team (Late st Contact Info) Description 01/24/2024 2:00 PM EST Office Visit Dermatology at [facility] [address] [place] [address] Prisca Hughes MD [facility] [address] PHOE[address] [place] [address] documented as of this encounter Visit Diagnoses Diagnosis Malignant neoplasm of prostate- Primary documented in this encounter Care Teams Rotary Cutter Feeder Relationship Specialty Start Date End Date Celio Sanders MD [address] [place] [address] PCP - General Internal Medicine 05/19/16 documented as of this encounter
--- OUTSIDE RECORDS SUMMARY | 2023-12-29 12:10 | XMS_ITS | Encounter Summary ---
Author Organization [facility] Address [facility] [place] [address] Care Team Providers Care Case Management Specialist Name Role Phone Celio Sanders MD Primary Care Provider [phone] Encounter Details Date Type Department Care Team (Late Contact Info) Description 01/24/2023 [place] [phone] Nick Kelly MD [facility] [place] [address] Social History Tobacco Use Types Packs/Day Years [...] PM EST Office Visit Dermatology at [facility] [address] [place] [address] Prisca Hughes MD [facility] [place] [address] documented as of this encounter Visit Diagnoses Not on filedocumented in this encounter Care Teams Case Management Specialist Relationship Specialty Start Date End Date Celio Sanders MD [address] [place] [address] PCP - General Internal Medicine 05/19/16 documented as of this encounter
--- OUTSIDE RECORDS SUMMARY | 2023-12-29 12:10 | XMS_ITS | Encounter Summary ---
Author Organization [facility] [place] [address] Care Team Providers Care Director Security Management Name Role Phone Celio Sanders MD Primary Care Provider [phone] Reason for Referral * Diagnostic Test (Routine) - Closed Specialty Diagnoses / Procedures Referred By Contkulwant de la rosa Referred To Contact Radiology Diagnoses Malignant neoplasm of prostate Procedures MRI Pelvis wwo (Prostate) Diane Leavitt MD [facility] [place] [address] [place] [address] Referral ID Status Reason Start Date Expiration Date V isits Requested Visits Authorized [id number] Closed Specialty Service Requested 11/18/2022 05/16/2024 1 1 Encounter Details Date Type Department Care Team (Late st Contact Info) Description 11/18/2022 2:30 PM EDT Office Visit Radiation Oncology at [address] [phone] Ronnie Vazquez MD [address] [place] [address] [place] [address] Malignant neoplasm of prostate (Primary [...] 11/18/22 Ronnie Vazquez MD, MS Radiation Oncology [facility] [phone] (paging stapling machine operator) Pager #[phone] PATIENT IDENTIFICATION IDENTIFICATION: Nain Mckeon is a 66 y.o. male with node positive prostate cancer who completed radiotherapy to his pelvis and prostate at the [facility] in [place], [place]. Details of his radiation treatment course [...] Rama Ramos NP of our department at [facility] in [facility]. He completed 3 years of LT ADT [...] (scheduled for 11/22/2022). He has nocturia 1-3x, [id number] during the day. No incontinence, urgency. No issues with bowels or rectum. He is very active, playing [employer] daily and swimming several times weekly. Performance [...] salvage prostatectomy or reirradiation with brachytherapy at [facility]. We also discussed that resuming ADT therapy [...] Leavitt MD Chief Resident ([id number]) Radiation Oncology [facility] Attending Attestation: I have seen the [...] visit as above Ronnie Vazquez MD, MS Facilities Management Executive Radiation Oncology documented in this encounter Plan of Treatment Upcoming Encounters Date Type Department Care Team (Late st Contact Info) Description 01/24/2024 2:00 PM EST Office Visit Dermatology at [facility] [address] [place] [address] Prisca Hughes MD [facility] [address] [place] [address] documented as of this encounter Results * [...] at Mult[facility]. Radiology. 2019 Mar;290(3):709719. doi: 10.1148/radiol.[id number]. Epub 2018Mar 28. Thank you for letting us participate in the care of this patient. ??If you are a health care provider and have any questions regarding this report, please contact the number below. ??For patients who have questions please contact the health director career that requested your imaging first. ? Narrative [...] highly likely janna present) References: Cinthia S1, Chrisite JH1, Maloney S1, Silvestre C1, Lowery J1, Czarniecki M1,Gold S1, Moreno G1, Rayn K1, Edgardo MJ1, Christos BJ1, Nabil PA1, Antoni PL1, Shweta B1.A Grading System for the Assessment of Risk of Extraprostatic Extension of Prostate Cancer at [facility]. Radiology. 2019Mar;290(3):709-719. doi: 10.1148/radiol.[id number]. Epub 2018Mar 28. Thank you for letting us participate in the care of this patient. If youare a health care provider and have any questions regarding this report,please contact the number below. For patients who have questions please contactthe health director career that requested your imaging first. Ronnie Vazquez MD IMG MRI ORDERABLES documented in this encounter Visit Diagnoses Diagnosis Malignant neoplasm of prostate- Primary Malignant neoplasm of prostate documented in this encounter Care Teams Director Security Management Relationship Specialty Start Date End Date Celio Sanders MD [address] [place] [address] PCP - General Internal Medicine 05/19/16 documented as of this encounter
--- OUTSIDE RECORDS SUMMARY | 2023-12-29 12:10 | XMS_ITS | Encounter Summary ---
Author Organization [facility] Address [facility] [place] [address] Care Team Providers Care Network Consultant Name Role Phone Celio Sanders MD Primary Care Provider [phone] Reason for Visit * Reason Comments Prior Authorization Xtandi Encounter Details Date Type Department Care Team (Late st Contact Info) Description 02/22/2023 Specialty [place] [phone] Sam Antonio, [facility] Social History Tobacco Use Types Packs/Day Years Used Date Smoking Tobacco: Never Smokeless Tobacco: Never Alcohol Use Standard Drinks/Week Comments Not Currently 0 (1 standard drink = 0.6 oz pur e alcohol) beer and wine twice a month [facility] Utilities Answer Date Recorded In the past [...] Nain Mckeon Patient : 1950 Patient Address: [address] [place], [place] [id number] (home) Medication Name: XTANDI 40 MG TABLET Medication ID: Subscriber Insurance: [employer] ([employer]) Subscriber Insurance Comment: Phone: [phone] Fax: Physician: AUGUSTINE RUFFIN Physician Comment: Sent Via: Fax Daley: Ref/Case/PA#: Medication Strength Frequency Requested: Take 4 tablets by mouth daily Qty/Day Supply: 120/30 New Start: New to Therapy Diagnosis & ICD-10 Code: C61 - Prostate Cancer Patient Notified: No Submission Notes: Karlo Antonio 02/22/23 12:46 PM * Sam Antonio - 02/22/2023 12:44 PM EST [facility], Prior Authorization Approval Medication Name: XTANDI 40 MG TABLET Medication ID: Approval Dates: 02/22/2023 to 02/22/2024 Insurance requirements/notes: None Other Notes: None Case/Reference #: Approval notification Received via: Fax Copay: $[phone] Copay assistance: Other (Enter Comment) Copay Notes: PT has a high copay - PT will need to fill with MAP Insurance mandated Pharmacy: Fillable at [facility]: Yes Patient Notified: No Pharmacy staff will be reaching out to the patient to inform them of their medication's [facility]. If applicable, a pharmacist will speak with the patient to offer our specialty pharmacy services and to arrange delivery of their medication. Sam Antonio 02/23/23 8:05 AM documented in this encounter Plan of Treatment Upcoming Encounters Date Type Department Care Team (Late st Contact Info) Description 01/24/2024 2:00 PM EST Office Visit Dermatology at [address] [address] Prisca Hughes MD [facility] [address] [place] [address] documented as of this encounter Visit Diagnoses Not on filedocumented in this encounter Care Teams Network Consultant Relationship Specialty Start Date End Date Celio Sanders MD [address] [place] [address] PCP - General Internal Medicine 05/19/16 documented as of this encounter
--- OUTSIDE RECORDS SUMMARY | 2023-12-29 12:10 | XMS_ITS | Encounter Summary ---
Author Organization [facility] Address [facility] [place] [address] Care Team Providers Care Patient Admitting Clerk Name Role Phone Celio Sanders MD Primary Care Provider [phone] Encounter Details Date Type Department Care Team (Late st Contact Info) Description 02/04/2022 3:15 PM EST Office Visit Radiation Oncology at [address] [phone] Rama Ramos APRN [facility] [place] [address] Age-related osteoporosis with current pathological fracture, unspecified [...] this encounter Progress Notes * Rama Ramos, BORDER POL[employer] - 02/04/2022 3:15 PM ESTSummary: 71 year old M dx high risk prostate cancer. Compl RT 10/27/16. Compl 3 years ADT w/ final dose 05/2019 [facility] [place] [address] Phone: RADIATION ONCOLOGY FOLLOW UP NOTE Patient [...] [place] and ended when he returned to [place]. Current treatment:Surveillance HPI: Per Dr Ronnie Vazquez [...] 5/12 cores (all on right side), T2b, [place] 8 Darlyn-neural invasion present PSA - 47.5 [...] tolerate [place]. Concern at this time is that while [...] stop this combo when he returned to [place]. Regino not see dates on this. I do not think he has tried enzalutamide. He was aware at one point that a possible return to lupron might be needed but his Dr in [place] stated in note reluctance to dothis based on buttermaker helper CV risk factors. There is also an added risk of CV dz in use of antipsychotics which pt requires for management of bipolar disorder. # survivorship/lifestyle/wellness: Genetic Risk Evaluation: Body weight/nutrition: Exercise: swims 3-4 days a week. Plays [employer] ball. He fx wrist a couple weeks ago. Will be seeing someone to address. Bone health: fx wrist. Smoking: no smoking Alcohol: none Sleep:sleeping very well now. Sunscreen: Annual exam with PCP: But different PCP recently and will tell front end assistant. (Now Celio Sanders MD) Up to date [...] the radiation therapy/prostate cancer Rama Ramos MSN, [employer] POL[employer], WASTE RECYCLER-C Nurse Practitioner Radiation Oncology documented in this encounter Plan of Treatment Upcoming Encounters Date Type Department Care Team (Late st Contact Info) Description 01/24/2024 2:00 PM EST Office Visit Dermatology at [facility] [address] [place] [address] Prisca Hughes MD [facility] DR PH[place] [address] documented as of this encounter Visit Diagnoses Diagnosis Age-related osteoporosis with current pathological fracture, unspecified hand, subsequent encounter for fracture with routine healing- Primary Malignant neoplasm of prostate Age-related osteoporosis without current pathological fracture Senile osteoporosis documented in this encounter Care Teams Patient Admitting Clerk Relationship Specialty Start Date End Date Celio Sanders MD [address] [place] [address] PCP - General Internal Medicine 05/19/16 documented as of this encounter
--- OUTSIDE RECORDS SUMMARY | 2023-12-29 12:10 | XMS_ITS | Encounter Summary ---
Author Organization [facility] Address [facility] [place] [address] Care Team Providers Care Carbon Blocks Press Operator Name Role Phone Celio Sanders MD Primary Care Provider [phone] Encounter Details Date Type Department Care Team [...] EST Office Visit Dermatology at [facility] [address] [place] [address] Prisca Hughes MD [facility] DR PHOEBE IBARRA[place] [address] documented as of this encounter Visit Diagnoses Not on filedocumented in this encounter Care Teams Carbon Blocks Press Operator Relationship Specialty Start Date End Date Celio Sanders MD [address] [place] [address] PCP - General Internal Medicine 05/19/16 documented as of this encounter
--- OUTSIDE RECORDS SUMMARY | 2023-12-29 12:10 | XMS_ITS | Encounter Summary ---
Author Organization [facility] Address [facility] [place] [address] Care Team Providers Care Automotive Service Advisor Name Role Phone Celio Sanders MD Primary Care Provider [phone] Encounter Details Date Type Department Care Team (Late Contact Info) Description 05/31/2022 Orders Only [place] [address] Rama Ramos APRN [facility] [place] [address] Malignant neoplasm of prostate (Primary Dx) Social [...] at [facility] [address] [place] [address] Prisca Hughes MD [facility] [address] [place] [address] documented as of this encounter Visit Diagnoses Diagnosis Malignant neoplasm of prostate- Primary documented in this encounter Care Teams Automotive Service Advisor Relationship Specialty Start Date End Date Celio Sanders MD [address] [place] [address] PCP - General Internal Medicine 05/19/16 documented as of this encounter
--- OUTSIDE RECORDS SUMMARY | 2023-12-29 12:10 | XMS_ITS | Encounter Summary ---
Author Organization [facility] [place] [address] Care Team Providers Care Machine Rope Maker Name Role Phone Celio Sanders MD Primary Care Provider Encounter Details Date Type Department Care Team (Late st Contact Info) Description 01/31/2023 Telephone Radiation Oncology at [address] [phone] Ronnie Vazquez MD [address] [place] [address] DR RADIATION ONCOLOGY [place], [place] [phone] Social History Tobacco Use Types Packs/Day Years [...] Oncology Phone Note Ronnie Vazquez MD, MS [facility] [place] PATIENT NAME: Nain Mckeon DATE OF : [...] PM EST Office Visit Dermatology at [facility] [address] [address] Prisca Hughes MD [facility] [address] [place] [address] documented as of this encounter Visit Diagnoses Not on filedocumented in this encounter Care Teams Machine Rope Maker Relationship Specialty Start Date End Date Celio Sanders MD [address] [place] [address] PCP - General Internal Medicine 05/19/16 documented as of this encounter
--- OUTSIDE RECORDS SUMMARY | 2023-12-29 12:10 | XMS_ITS | Encounter Summary ---
Author Organization [facility] Address [facility] Made[facility] [place] [place] [address] Care Team Providers Care Voice Over Announcer Name Role Phone Celio Sanders MD Primary Care Provider [phone] Encounter Details Date Type Department Care Team (Late st Contact Info) Description 10/20/2022 11:20 AM EDT Office Visit Dermatology at [facility] [address] [place] [address] Ersnt Rinaldi MD [facility] DR PH[address] [place] [address] Actinic keratoses; Seborrheic keratoses; Multiple benign nevi; [...] left earlobe x1, left cheek x1, left taoist x1, right forearm x1, right arm x1, [...] 1 year for FSE []Note routed to board of education secretary [x]Recall placed in scheduling system []Appointment scheduled at checkout Scribe attestation: Osmani Glez has performed the documentation for this encounter in the presence of and acting as a scribe for Ernst Rinaldi MD. I performed the above scribed service and agree with the accuracy of the documentation in this encounter. Reviewed and signed by: Ernst Rinaldi MD Dermatology Replaced By [facility] Patient seen and evaluated with staff heel coverer: Gaye Hicks MD Dermatology Replaced By [facility] * Gaye Hicks MD - 10/20/2022 11:20 [...] [facility] [address] [place] [address] Prisca Hughes MD [facility] [address] [place] [address] documented as of this encounter Visit Diagnoses Diagnosis Actinic keratoses Actinic keratosis Seborrheic keratoses Multiple benign nevi Benign neoplasm of skin, site unspecified Lentigines Other dyschromia Gee angioma Nevus, non-neoplastic documented in this encounter Care Teams Voice Over Announcer Relationship Specialty Start Date End Date Celio Sanders MD [address] [place] [address] PCP - General Internal Medicine 05/19/16 documented as of this encounter
--- OUTSIDE RECORDS SUMMARY | 2023-12-29 12:10 | XMS_ITS | Encounter Summary ---
Author Organization [facility] [place] [address] Care Team Providers Care Grinder And Honer Operator Automatic Name Role Phone Celio Sanders MD Primary Care Provider Reason for Referral * Diagnostic Test (Routine) - Closed Specialty Diagnoses / Procedures Referred By Contac t Referred To Contact Radiology Diagnoses Malignant neoplasm of prostate Procedures MRI Pelvis wwo (Prostate) Diane Leavitt MD [facility] [place] [address] [place] [address] Referral ID Status Reason Start Date Expiration Date V isits Requested Visits Authorized [id number] Closed Specialty Service Requested 11/18/2022 05/16/2024 1 1 Reason for Visit * Diagnostic Test (Routine) - Closed Specialty Diagnoses / Procedures Referred By Contac t Referred To Contact Radiology Diagnoses Malignant neoplasm of prostate Procedures MRI Pelvis wwo (Prostate) Diane Leavitt MD [facility] [place] [address] [place] [address] Referral ID Status Reason Start Date Expiration Date V isits Requested Visits Authorized [id number] Closed Specialty Service Requested 11/18/2022 05/16/2024 1 1 Encounter Details Date Type Department Care Team (Latest Contact Info) Description 12/30/2022 4:38 PM EDT - 12/30/2022 11:59 PM EDT Hospital [place] [address] Ronnie Vazquez MD [address] [place] [address] [place] [address] Malignant neoplasm of prostate Discharge Disposition: Home [...] [facility] [address] [place] [address] Prisca Hughes MD [facility] DR [place] [address] documented as of this encounter Procedures Procedure [...] at [facility]. Radiology. 2019 May;290(3):709-719. doi: [id number]/[id number]. Epub 2018Mar 28. Thank you for letting us participate in the care of this patient. ??If you are a health care provider and have any questions regarding this report, please contact the number below. ??For patients who have questions please contact the health childcare worker that requested your imaging first. ? Narrative [...] Cancer at [facility]. Radiology. 2019Mar;290(3):709-719. doi: [id number]/[email or web address].[id number]. Epub 2018Mar 28. Thank you for letting us participate in the care of this patient. If youare a health care provider and have any questions regarding this report,please contact the number below. For patients who have questions please contactthe health childcare worker that requested your imaging first. Ronnie Vazquez MD [facility] ORDERABLES documented in this encounter Visit [...] mLs documented in this encounter Care Teams Grinder And Honer Operator Automatic Relationship Specialty Start Date End Date Celio Sanders MD [address] [place] [address] PCP - General Internal Medicine 05/19/16 documented as of this encounter
--- OUTSIDE RECORDS SUMMARY | 2023-12-29 12:10 | XMS_ITS | Encounter Summary ---
Author Organization [facility] Address [facility] [place] [address] Care Team Providers Care School Bus Aide Name Role Phone Celio Sanders MD Primary Care Provider Reason for Referral * Consultation (Routine) - Closed Specialty Diagnoses / Procedures Referred By Contac t Referred To Contact Hematology and Oncology Diagnoses Prostate cancer metastatic to intrapelvic lymph node Ronnie Vazquez MD [address] [place] [address] [place] [address] Harjinder Snyder MD [facility] DR HEMATOLOGY [place] [address] Referral ID Status Reason Start Date Expiration Date V isits Requested Visits Authorized [id number] Closed Consult, Test & Treat 02/01/2023 02/01/2024 1 1 * Consultation (Routine) - Closed Specialty Diagnoses / Procedures Referred By Contac t Referred To Contact Radiation Oncology Diagnoses Prostate cancer metastatic to intrapelvic lymph node Ronnie Vazquez MD [address] [place] [address] [place] [address] Victorino Hassan MD [address] [place] [id number] Referral ID Status Reason Start Date Expiration Date V isits Requested Visits Authorized [id number] Closed Assume Subset of Care 02/01/2023 07/31/2023 1 1 Encounter Details Date Type Department Care Team (Late Contact Info) Description 02/01/2023 Orders Only Radiation Oncology at [address] [place] [address] Ronnie Vazquez MD [address] [place] [address] [place] [address] Prostate cancer metastatic to intrapelvic lymph node; [...] 2:00 PM EST Office Visit Dermatology at [address] [address] Prisca Hughes MD [facility] DR PHOE[address] IBARRA-DERMAT[place] [address] Scheduled Referrals Name Type Priority Associated Diagnoses [...] cancer documented in this encounter Care Teams School Bus Aide Relationship Specialty Start Date End Date Celio Sanders MD [address] [place] [address] PCP - General Internal Medicine 05/19/16 documented as of this encounter
--- OUTSIDE RECORDS SUMMARY | 2023-12-29 12:10 | XMS_ITS | Encounter Summary ---
Author Organization [facility] Address [facility] [place] [address] Care Team Providers Care Mold Release Worker Name Role Phone Celio Sanders MD Primary Care Provider [phone] Encounter Details Date Type Department Care Team [...] Dermatology at [facility] [address] [place] [address] Prisca Hughes MD [facility] DR [place] [address] documented as of this encounter Visit Diagnoses Not on filedocumented in this encounter Care Teams Mold Release Worker Relationship Specialty Start Date End Date Celio Sanders MD [address] [place], [place] [address] PCP - General Internal Medicine 05/19/16 documented as of this encounter
--- OUTSIDE RECORDS SUMMARY | 2023-12-29 12:10 | XMS_ITS | Encounter Summary ---
[place] [address] Care Team Providers Care Home Health Clinical Liaison Name Role Phone Celio Sanders MD Primary Care Provider Reason for Referral * Consultation (Routine) - Closed Specialty Diagnoses / Procedures Referred By Tess t Referred To Contact Hematology and Oncology Diagnoses Malignant neoplasm of prostate Rama Ramos APRN [facility] [place] [address] [facility] Hem Onc [address] [place] [address] Referral ID Status Reason Start Date Expiration Date V isits Requested Visits Authorized [id number] Closed Assume Subset of Care 10/12/2022 10/12/2023 1 1 * Diagnostic Test (Routine) - Closed Specialty Diagnoses / Procedures Referred By Contac t Referred To Contact Radiology Diagnoses Malignant neoplasm of prostate Procedures NM PET CT PSMA Prostate (Illuccix) Rama Ramos AUTOMATIC COIN MACHINE MECHANIC [facility] [place] [address] [facility] [place] [address] Referral ID Status Reason Start Date Expiration Date V isits Requested Visits Authorized [id number] Closed Specialty Service Requested 10/12/2022 04/14/2024 1 2 Encounter Details Date Type Department Care Team (Late st Contact Info) Description 10/12/2022 9:30 AM EDT Office Visit Radiation Oncology at [address] [address] Rama Ramos APRN [facility] [place] [address] Malignant neoplasm of prostate (Primary [...] in this encounter Progress Notes * Rama Rmaos APRN - 10/12/2022 9:30 AM EDTSummary: 71 year old M dx high risk prostate cancer. Compl RT 10/27/16. Compl 3 years ADT w/ final dose 05/2019 [facility] [place] [address] Phone: RADIATION ONCOLOGY FOLLOW UP NOTE Patient Nain Mckeon 1950 PCP: Celio Sanders MD Urologist: Radiation oncologist: Dr. Ronnie Vazquez Chief Complaint: follow up/labs for prostate cancer Time since completed RT:10/27/16 ADT:3 years of Lupron or eligard with last dose 05/04/2019 Tried and stopped abiraterone /pred d/t not patrick pred with bipolar d.o. This was started in [place] and ended when [place] returned to [place]. [...] 5/12 cores (all on right side), T2b, [place] 8 Darlyn-neural invasion present PSA - 47.5 [...] LN no longer seen). Pt was in [place] for a period of 5 months and he received a 22.5mg leuprolide there on 05/15/2018. The facility [facility] and Provider Sp Coreas MD. This is in scanned documents. Interim HPI: No further medical issues in the interval. He has been drinking more and hydrating because of summer and exercising. Because of drinking more may be up more at [facility], 2-3x. 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 [...] of manic sx. He had this in [place] during a [place]here but only on x [...] lupron and eligard in past (eligard in [place] when he was there for a period of 5months) x 3 years. Abiraterone and pred started in [place] he states and tried but did not tolerate the prednisone as he experienced manic sx so needed to stop this combo [place] returned [place]. Regino not see dates on this. I do not think he has tried enzalutamide. He was aware at one point that a possible return to lupron might be needed but his Dr in [place] stated in note reluctance to dothis based on assistant terminal manager CV risk factors. There is also an [...] the radiation therapy/prostate cancer Rama Ramos MSN, AUTOMATIC COIN MACHINE MECHANIC, NEW PATIENT ESCORT-C Nurse Practitioner Radiation Oncology documented in this encounter Plan of Treatment Upcoming Encounters Date Type Department Care Team (Late st Contact Info) Description 01/24/2024 2:00 PM EST Office Visit Dermatology at [facility] [address] [place] [address] Prisca Hughes MD [facility] DR [place] [address] Scheduled Referrals Name Type Priority Associated Diagnoses [...] Thank you for referring this patient to [facility]. I have personally reviewed the [...] who have questions please contact the health attending ambulatory care that requested your imaging first. ? Electronically signed by: Matthew Price MD, [facility] ([phone]), at 11/09/2022 4:44 PM Narrative 11/09/2022 4:44 [...] Thank you for referring this patient to [facility]. I have personally reviewed the image(s) and the resident's interpretationand agree with the findings, Matthew Price MD at 11/09/2022 4:44 PM Thank you for letting us participate in the care of this patient. If youare a health care provider and have any questions regarding this report,please contact the number below. For patients who have questions please contactthe health attending ambulatory care that requested your imaging first. Rama Ramos APRN IMG PET ORDERABLES documented in this encounter Visit Diagnoses Diagnosis Malignant neoplasm of prostate- Primary Malignant neoplasm of prostate documented in this encounter Care Teams Home Health Clinical Liaison Relationship Specialty Start Date End Date Celio Sanedrs MD [address] [place] [address] PCP - General Internal Medicine 05/19/16 documented as of this encounter
--- OUTSIDE RECORDS SUMMARY | 2023-12-29 12:10 | XMS_ITS | Encounter Summary ---
Author Organization [facility] Address [facility] [place] [address] Care Team Providers Care Direct Care Specialist Name Role Phone Celio Sanders MD Primary Care Provider [phone] Encounter Details Date Type Department Care Team [...] at [facility] [address] [place] [address] Prisca Hughes MD [facility] DR PHOEBE [place]BAR[place] [address] documented as of this encounter Visit Diagnoses Not on filedocumented in this encounter Care Teams Direct Care Specialist Relationship Specialty Start Date End Date Celio Sanders MD [address] [place], [place] [address] PCP - General Internal Medicine 05/19/16 documented as of this encounter
--- OUTSIDE RECORDS SUMMARY | 2023-12-29 12:10 | XMS_ITS | Encounter Summary ---
Author Organization [facility] Address [facility] [place] [address] Care Team Providers Care Literature Teacher Name Role Phone Celio Sanders MD Primary Care Provider [phone] Encounter Details Date Type Department Care Team [...] [facility] [address] [place] [address] Prisca Hughes MD [facility] [address] [place] [address] documented as of this encounter Visit Diagnoses Not on filedocumented in this encounter Care Teams Literature Teacher Relationship Specialty Start Date End Date Celio Sanders MD [address] [place], [place] [address] PCP - General Internal Medicine 05/19/16 documented as of this encounter
--- OUTSIDE RECORDS SUMMARY | 2023-12-29 12:10 | XMS_ITS | Encounter Summary ---
Author Organization [facility] [place] [address] Care Team Providers Care Rn Lpn Cna Name Role Phone Celio Sanders MD Primary Care Provider [phone] Reason for Visit * Consultation (Routine) - Closed Specialty Diagnoses / Procedures Referred By Tess de la rosa Referred To Contact Urology Diagnoses Prostate cancer metastatic to intrapelvic lymph node Ronnie Vazquez MD [address] [place] [address] [place] [address] [facility] [place] [address] Referral ID Status Reason Start Date Expiration Date V isits Requested Visits Authorized [id number] Closed Consult, Test & Treat 01/03/2023 01/03/2024 1 1 Encounter Details Date Type Department Care Team (Late st Contact Info) Description 01/20/2023 9:30 AM EST [place] [address] Teresa Kelly MD [facility] [place] [address] Elevated PSA Social History Tobacco Use Types [...] to your [facility] account before we have had a chance to contact you. You should feel free to check your [facility] if you would like to see if [...] after these hours, please call the hospital sulfonator operator at and ask to have the [...] at [facility] [address] [place] [address] Prisca Hughes MD [facility] [address] [place] [address] Scheduled Orders Name Type Priority Associated Diagnoses [...] Urology who performed multiple biopsies in the [address] [place] [address] location. UroNav fusion was used for this procedure. Thank you for letting us participate in the care of this patient. If you are a health care provider and have any questions regarding this report, please contact the number above. For patients who have questions, please contact the health janitor caretaker that requested your imaging first. ? Mahnaz Coello, Staff Physician Electronically Signed Final Report ?? 01/20/2023 01:09 pm Narrative 01/20/2023 1:10 PM EST Male Pelvis ? (Signed Final 01/20/2023 01:09 pm) PATIENT INFO: ID #: ? [id number] ?: ??[birth year] (72 yrs)(M) Name: ? NAIN LIPSCOMB ?Visit Date: 01/20/2023 10:17 am PERFORMED BY: Attending: ?Mode MUNOZ, Mahnaz Burroughs Performed By: ? Joce Phelps RDMS Referred By: ?TERESA KELLY Location: ? [place] SERVICE(S) PROVIDED: UTRBXURO - Prostate Biopsy with UroNav Fusion ? [id number], [id number] - [id number] INDICATIONS: PI-RADS 5 TECHNIQUE/SCAN QUALITY: Technique: ?Transducer [...] 01/20/2023 01:09 pm) PATIENT INFO: ID #: [id number] : [birth year] (72 yrs)(M) Name: NAIN LIPSCOMB Visit Date: 01/20/2023 10:17 am PERFORMED BY: Attending: Mahnaz Coello MD Performed By: Joce Phelps RDMS Referred By: TERESA KELLY Location: [place] SERVICE(S) PROVIDED: UTRBXURO - Prostate Biopsy with UroNav Fusion [id number], [id number] - [id number] INDICATIONS: PI-RADS 5 TECHNIQUE/SCAN QUALITY: Technique: Transducer [...] Urology who performed multiple biopsies in the [address] [place] [address] location. UroNav fusion was used for this procedure. Thank you for letting us participate in the care of this patient. If you are a health care provider and have any questions regarding this report, please contact the number above. For patients who have questions, please contact the health janitor caretaker that requested your imaging first. Mahnaz Coello, Staff Physician Electronically Signed Final Report 01/20/2023 01:09 pm Teresa Kelly MD [facility] PROC ORDERA BLES documented in this [...] mg documented in this encounter Care Teams Rn Lpn Cna Relationship Specialty Start Date End Date Celio Sanders MD [address] [place] [address] PCP - General Internal Medicine 05/19/16 documented as of this encounter
--- OUTSIDE RECORDS SUMMARY | 2023-12-29 12:10 | XMS_ITS | Encounter Summary ---
Author Organization [facility] Address [facility] [place] [address] Care Team Providers Care Senior Center Manager Name Role Phone Celio Sanders MD Primary Care Provider [phone] Encounter Details Date Type Department Care Team (Late Contact Info) Description 02/11/2023 Telephone Hematology/Oncology at [address] [address] Hanny Laureano Social History Tobacco [...] 2:00 PM EST Office Visit Dermatology at [facility] [address] [place] [address] Prisca Hughes MD [facility] DR [address] [place] [address] documented as of this encounter Visit Diagnoses Not on filedocumented in this encounter Care Teams Senior Center Manager Relationship Specialty Start Date End Date Celio Sanders MD [address] [place] [address] PCP - General Internal Medicine 05/19/16 documented as of this encounter
--- OUTSIDE RECORDS SUMMARY | 2023-12-29 12:10 | XMS_ITS | Encounter Summary ---
Author Organization [facility] Address [facility] [place] [address] Care Team Providers Care Engineer Geophysical Laboratory Name Role Phone Celio Sanders MD Primary Care Provider [phone] Reason for Visit * Reason Onset Date Comments New Medication Request 02/22/2023 xtandi Encounter Details Date Type Department Care Team (Late st Contact Info) Description 02/22/2023 Telephone Hematology/Oncology at [address] [address] Tracy Reno RN New Medication Request (xtandi) Social History Tobacco Use Types Packs/Day Years Used Date Smoking Tobacco: Never Smokeless Tobacco: Never Alcohol Use Standard Drinks/Week Comments Not Currently 0 (1 standard drink = 0.6 oz pur e alcohol) beer and wine twice a month [facility] Utilities Answer Date Recorded In the [...] Miscellaneous Notes * Telephone Encounter - Tracy Reon RN - 02/22/2023 10:59 AM EST Oral [...] signed by provider and manually faxed to [facility]. If high copay funding to be checked, if none available will need to apply to [facility]. documented in this encounter Plan of Treatment Upcoming Encounters Date Type Department Care Team (Late st Contact Info) Description 01/24/2024 2:00 PM EST Office Visit Dermatology at [facility] [address] [place] [address] Prisca Hughes MD [facility] DR PHOE[address] [place] [address] documented as of this encounter Visit Diagnoses Not on filedocumented in this encounter Care Teams Engineer Geophysical Laboratory Relationship Specialty Start Date End Date Celio Sanders MD [address] [place] [address] PCP - General Internal Medicine 05/19/16 documented as of this encounter
--- OUTSIDE RECORDS SUMMARY | 2023-12-29 12:10 | XMS_ITS | Encounter Summary ---
Author Organization [facility] Address [facility] [place] [address] Care Team Providers Care Infrastructure Director Name Role Phone Celio Sanders MD Primary Care Provider [phone] Encounter Details Date Type Department Care Team (Latest Contact Info) Description 01/20/2023 9:00 AM EST - 01/20/2023 11:59 PM [facility] Hospital [place] [phone] Teresa Kelly MD [facility] [place] [address] Elevated PSA Discharge Disposition: Home Social History [...] Office Visit Dermatology at [facility] [address] [place] [address] Prisca Hughes MD [facility] DR PHOEBE IBAR[place] [address] documented as of this encounter Procedures Procedure [...] procedure. Electronically signed by: Mahnaz Coello MD, [facility] ([phone]), at 01/20/2023 1:03 PM Thank you for letting us participate in the care of this patient. If you are a health care provider and have any questions regarding this report, please contact the number above. For patients who have questions, please contact the health ambulatory care nurse that requested your imaging first. ? Mahnaz Coello, Staff Physician Electronically Signed Final Report ?? 01/20/2023 01:09 pm Narrative 01/20/2023 1:10 PM EST Male Pelvis ? (Signed Final 01/20/2023 01:09 pm) PATIENT INFO: ID #: ? [id number] ?: ??[birth year] (72 yrs)(M) Name: ? NAIN LIPSCOMB ?Visit Date: 01/20/2023 10:17 am PERFORMED BY: Attending: ?Mode MUNOZ, Mahnaz Burroughs Performed By: ? Joce Phelps RDMS Referred By: ?TERESA KELLY Location: ? [place] SERVICE(S) PROVIDED: UTRBXURO - Prostate Biopsy with UroNav Fusion ? [id number], [id number] - [id number] INDICATIONS: PI-RADS 5 TECHNIQUE/SCAN QUALITY: Technique: ?Transducer [...] 01/20/2023 01:09 pm) PATIENT INFO: ID #: [id number] : [birth year] (72 yrs)(M) Name: NAIN LIPSCOMB Visit Date: 01/20/2023 10:17 am PERFORMED BY: Attending: Mahnaz Coello MD Performed By: Joce Phelps RDMS Referred By: TERESA KELLY Location: [place] SERVICE(S) PROVIDED: UTRBXURO - Prostate Biopsy with UroNav Fusion [id number], [id number] - [id number] INDICATIONS: PI-RADS 5 TECHNIQUE/SCAN QUALITY: Technique: Transducer [...] Urology who performed multiple biopsies in the [address] [place] [address] location. UroNav fusion was used for this procedure. Electronically signed by: Mahnaz Coello MD, [facility] ([phone]), at 01/20/2023 1:03 PM Thank you for letting us participate in the care of this patient. If you are a health care provider and have any questions regarding this report, please contact the number above. For patients who have questions, please contact the health ambulatory care nurse that requested your imaging first. Mahnaz Coello, Staff Physician Electronically Signed Final Report 01/20/2023 01:09 pm Teresa Kelly MD [facility] PROC ORDERA BLES * Specimen to Pathology (01/20/2023 10:31 AM EST) AP Specimen 01/20/2023 10:3 1 AM EST 01/20/2023 10:31 AM EST Narrative [facility] - 01/20/2023 10:31 AM EST Specimen requisition ordered. ??Separate Pathology report to follow Teresa Kelly MD PATHOLOGY/CYTOLOGY ORDERABLES [facility] [place] [address] * Specimen to Pathology (01/20/2023 10:31 AM EST) AP Specimen 01/20/2023 10:3 1 AM EST 01/20/2023 10:31 AM EST Narrative [facility] - 01/20/2023 10:31 AM EST Specimen requisition ordered. ??Separate Pathology report to follow Teresa Kelly MD PATHOLOGY/CYTOLOGY ORDERABLES Performing Organization Address City/[facility]/ZIP Co de Phone Number [facility] [place] [address] * Specimen to Pathology (01/20/2023 10:31 AM EST) AP Specimen 01/20/2023 10:3 1 AM EST 01/20/2023 10:31 AM EST Narrative [facility] - 01/20/2023 10:31 AM EST Specimen requisition ordered. ??Separate Pathology report to follow Teresa Kelly MD PATHOLOGY/CYTOLOGY ORDERABLES Performing Organization Address City/[facility]/ZIP Co de Phone Number [facility] [place] [address] * Specimen to Pathology (01/20/2023 10:31 AM EST) AP Specimen 01/20/2023 10:3 1 AM EST 01/20/2023 10:31 AM EST Narrative [facility] - 01/20/2023 10:31 AM EST Specimen requisition ordered. ??Separate Pathology report to follow Teresa Kelly MD PATHOLOGY/CYTOLOGY ORDERABLES Performing Organization Address [facility] Co de Phone Number [facility] [place] [address] * Specimen to Pathology (01/20/2023 10:31 AM EST) AP Specimen 01/20/2023 10:3 1 AM EST 01/20/2023 10:31 AM EST Narrative [facility] - 01/20/2023 10:31 AM EST Specimen requisition ordered. ??Separate Pathology report to follow Teresa Kelly MD PATHOLOGY/CYTOLOGY ORDERABLES Performing Organization Address City/[facility] Co de Phone Number [facility] [place] [address] * Specimen to Pathology (01/20/2023 10:31 AM EST) AP Specimen 01/20/2023 10:3 1 AM EST 01/20/2023 10:31 AM EST Narrative [facility] - 01/20/2023 10:31 AM EST Specimen requisition ordered. ??Separate Pathology report to follow Teresa Kelly MD PATHOLOGY/CYTOLOGY ORDERABLES Performing Organization Address [facility] Co de Phone Number [facility] [place] [address] * Specimen to Pathology (01/20/2023 10:31 AM EST) AP Specimen 01/20/2023 10:3 1 AM EST 01/20/2023 10:31 AM EST Narrative [facility] - 01/20/2023 10:31 AM EST Specimen requisition ordered. ??Separate Pathology report to follow Teresa Kelly MD PATHOLOGY/CYTOLOGY ORDERABLES Performing Organization Address [facility] de Phone Number [facility] [place] [address] * Specimen to Pathology (01/20/2023 10:31 AM EST) AP Specimen 01/20/2023 10:3 1 AM EST 01/20/2023 10:31 AM EST Narrative [facility] - 01/20/2023 10:31 AM EST Specimen requisition ordered. ??Separate Pathology report to follow Teresa Kelly MD PATHOLOGY/CYTOLOGY ORDERABLES Performing Organization Address [facility] Co de Phone Number [facility] [place] [address] * Specimen to Pathology (01/20/2023 10:31 AM EST) AP Specimen 01/20/2023 10:3 1 AM EST 01/20/2023 10:31 AM EST Narrative [facility] - 01/20/2023 10:31 AM EST Specimen requisition ordered. ??Separate Pathology report to follow Teresa Kelly MD PATHOLOGY/CYTOLOGY ORDERABLES Performing Organization Address [facility]/State/[place] [address] * Specimen to Pathology (01/20/2023 10:31 AM EST) AP Specimen 01/20/2023 10:3 1 AM EST 01/20/2023 10:31 AM EST Narrative [facility] - 01/20/2023 10:31 AM EST Specimen requisition ordered. ??Separate Pathology report to follow Teresa Kelly MD PATHOLOGY/CYTOLOGY ORDERABLES Performing Organization Address City/[facility]/[place] [address] * Specimen to Pathology (01/20/2023 10:31 AM EST) AP Specimen 01/20/2023 10:3 1 AM EST 01/20/2023 10:31 AM EST Narrative [facility] - 01/20/2023 10:31 AM EST Specimen requisition ordered. ??Separate Pathology report to follow Teresa Kelly MD PATHOLOGY/CYTOLOGY ORDERABLES Performing Organization Address City/[facility] Co de Phone Number [facility] [place] [address] * Specimen to Pathology (01/20/2023 10:31 AM EST) AP Specimen 01/20/2023 10:3 1 AM EST 01/20/2023 10:31 AM EST Narrative [facility] - 01/20/2023 10:31 AM EST Specimen requisition ordered. ??Separate Pathology report to follow Teresa Kelly MD PATHOLOGY/CYTOLOGY ORDERABLES Performing Organization Address City/[facility]/ZIP Co de Phone Number [facility] [place] [address] * Specimen to Pathology (01/20/2023 10:31 AM EST) AP Specimen 01/20/2023 10:3 1 AM EST 01/20/2023 10:31 AM EST Narrative [facility] - 01/20/2023 10:31 AM EST Specimen requisition ordered. ??Separate Pathology report to follow Teresa Kelly MD PATHOLOGY/[place] [address] * Surgical Pathology Report (01/20/2023 10:30 AM EST) Final Diagnosis [id number] ? Location: 3S The signing pathologist has (i) examined the relevant preparation(s) for the specimen(s) and (ii) rendered or confirmed the diagnosis(es). . ?Surgical Pathology DIAGNOSIS A - Prostate, Right lateral base, biopsy: - Prostatic adenocarcinoma, with cribriform features ?Grade Group 5 ??(Andre score 5+4=9), involving 40% of a single core. - [place] pattern 5 represents 80% of tumor, [place] pattern 4 represents 20% of tumor. B - Prostate, Right lateral mid, biopsy: - Prostatic adenocarcinoma, ?? Grade Group 5 ??([place] score 5+5=10), involving 70% of a single core. C - Prostate, Right lateral apex, biopsy: - Prostatic adenocarcinoma, ?? Grade Group 5 ??([place] score 5+4=9), involving 30% of a single core. - Andre pattern 5 represents 90% of tumor, Andre pattern 4 represents 10% of tumor. D - Prostate, Right base, biopsy: - Prostatic adenocarcinoma, with cribriform features, ?Grade Group 5 ??(Andre score 5+4=9), involving 80% of a single core. - Andre pattern 5 represents 90% of tumor, [place] pattern 4 represents 10% of tumor. - [...] involving 60% of a single core. - [place] pattern 5 represents 80% of tumor, Andre pattern 4 represents 20% of tumor. G - Prostate, Left lateral base, biopsy: - Prostatic adenocarcinoma, with cribriform features, ?Grade Group 5 ??(Andre score 5+4=9), involving 40% of a single core. - [place] pattern 5 represents 90% of tumor, Andre pattern 4 represents 10% of tumor. - ??Perineural invasion is present. H - Prostate, Left lateral mid, biopsy: - Prostatic adenocarcinoma, with cribriform features, ?Grade Group 5 ??([place] score 5+4=9), involving 60% of a single core. - Andre pattern 5 represents 90% of tumor, Andre pattern 4 represents 10% of tumor. - ??Perineural invasion is present. I - Prostate, Left lateral apex, biopsy: - Prostatic adenocarcinoma, with cribriform features, ?Grade Group 5 ??([place] score 5+4=9), involving 60% of a single core. . DIAGNOSIS - [place] pattern 5 represents 90% of tumor, Andre pattern 4 represents 10% of tumor. J - Prostate, Left base, biopsy: - Prostatic adenocarcinoma, with cribriform features, ?Grade Group 5 ??([place] score 5+4=9), involving 50% of a single core. - Andre pattern 5 represents 70% of tumor, Andre pattern 4 represents 30% of tumor. - ??Perineural invasion is present. K - Prostate, Left mid, biopsy: - Prostatic adenocarcinoma, ?? Grade Group 5 ??(Andre score 5+4=9), involving 60% of a single core. - [place] pattern 5 represents 90% of tumor, Andre pattern 4 represents 10% of tumor. - ??Perineural invasion is present. L - Prostate, Left apex, biopsy: - Prostatic adenocarcinoma, ?? Grade Group 5 ??([place] score 5+5=10), involving 40% of a single core. M - Prostate, MRI LESION #1, biopsy: - Prostatic adenocarcinoma, ?? Grade Group 5 ??([place] score 5+4=9), with cribriform features, involving four of cores ?? (80%, 80%, 70%, 60%, respectively). - Andre pattern 5 accounts for 70% of tumor. - ??Perineural invasion is present. Electronically signed by: ?DORIAN STILL Verified: ??01/24/2023 9:45 Performed at: ??-[facility] Dept. of Pathology, [place] [address] Mechanical Engineering Teacher: Kameron Clements MD, AP, ??CLIA Certificate: [id number] SPECIMEN(S) SUBMITTED A - Prostate, Right lateral [...] Single, 1.7 x 0.1 cm Tissue Description: Watrous needle core biopsy. Sections/Proces sing: Entirely submitted in 1 cassette labeled A1. B - Labeled/Fixativ e: Prostate right lateral mid, formalin. Quantity/Size: Single, 1.4 x 0.1 cm Tissue Description: Watrous needle core biopsy. Sections/Proces sing: Entirely submitted in 1 cassette labeled B1. C - Labeled/Fixativ e: Prostate right lateral apex, formalin. Quantity/Size: Single, 1.6 x 0.1 cm Tissue Description: Watrous needle core biopsy. Sections/Proces sing: Entirely submitted [...] Single, 1.8 x 0.1 cm Tissue Description: Watrous-white needle core biopsy. . SPECIMEN PROCESSING Sections/Proces sing: Entirely submitted in 1 cassette labeled K1. L - Labeled/Fixativ e: Prostate left apex, formalin. Quantity/Size: Single, x 0.1 cm Tissue Description: Watrous needle core biopsy. Sections/Proces sing: Entirely submitted in 1 cassette labeled L1. M - Labeled/Fixativ e: MRI lesion #1, formalin. Quantity/Size: Four, ranging from 1.5 x 0.1 cm to 1.8 x 0.1 cm Tissue Description: Yellow-white needle core biopsies. Sections/Proces sing: Entirely submitted in 2 cassettes labeled M1-M2. ??sns 01/24/2023 9:45 AM [facility] PROSTATIC STRUCTURE / Unknown 01/20/2023 [...] MD PATHOLOGY/CYTOLOGY ORDERABLES [facility] [address] [place] [address] documented in this encounter Visit Diagnoses Diagnosis Elevated PSA Elevated prostate specific antigen (PSA) documented in this encounter Care Teams Infrastructure Director Relationship Specialty Start Date End Date Celio Sanders MD [address] [place] [address] PCP - General Internal Medicine 05/19/16 documented as of this encounter
--- OUTSIDE RECORDS SUMMARY | 2023-12-29 12:11 | XMS_ITS | Encounter Summary ---
Author Organization [facility] Address [facility] [place] [address] Care Team Providers Care Title Closer Name Role Phone Celio Sanders MD Primary Care Provider [phone] Encounter Details Date Type Department Care Team (Late Contact Info) Description 07/02/2020 Orders Only Hematology/Oncology at [address] [phone] Swathi Uriostegui APRN [address] [place] [address] DR HEMATOLOGY ONCOLOGY [place], [place] [address] Prostate cancer metastatic to intrapelvic lymph node; [...] 2:00 PM EST Office Visit Dermatology at [facility] [address] [place] [address] Prisca Hughes MD [facility] DR [address] [place] [address] documented as of this encounter Visit Diagnoses Diagnosis 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
--- OUTSIDE RECORDS SUMMARY | 2023-12-29 12:11 | XMS_ITS | Encounter Summary ---
Author Organization [facility] Address [facility] [place] [address] Care Team Providers Care Die Sinker Name Role Phone Celio Sanders MD Primary Care Provider Reason for Referral * Consultation (Routine) - Closed Specialty Diagnoses / Procedures Referred By Contac t Referred To Contact Hematology and Oncology Diagnoses Malignant neoplasm of prostate Remy Barillas MD [facility] [place] [address] [facility] [address] [place] [phone] Referral ID Status Reason Start Date Expiration Date V isits Requested Visits Authorized [id number] Closed Consult, Test & Treat 08/18/2018 08/18/2019 1 1 Encounter Details Date Type Department Care Team (Late st Contact Info) Description 08/18/2018 11:00 AM EDT Office Visit Hematology/Oncology at [address] [address] Remy Barillas MD [facility] [place] [address] Malignant neoplasm of prostate Social History Tobacco [...] 5/12 cores (all on right side), T2b, [place] 8 Darlyn-neural invasion present PSA - 47.5 [...] by his Yaneth. He recently returned from [place] where he is followed by Dr. Coreas. [...] to urinate. Soc Hx: , lives in [place], [place]. He goes to [place] from December to June. 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 [place] score was 8 in two of the [...] 2:00 PM EST Office Visit Dermatology at [facility] [address] [place] [phone] Prisca Hughes MD [facility] [address] [facility] [place] [address] Scheduled Referrals Name Type Priority Associated Diagnoses [...] (Ultrasensitiv e) <0.01 0.00 - 4.00 ng/mL [facility] Blood specimen (specimen) 03/28/2019 2:42 PM EST 03/28/2019 2:55 PM EST Narrative Resulting Agency Comment Spec In Lab Remy Barillas MD CHEMISTRY ORDERABLES [facility] [place] [address] * Comprehensive metabolic panel (non-fasting) (03/28/2019 2:42 PM EST) Glucose 119 65 - 199 mg/dL [facility] Comment:Diabetes: >=200 mg/d L plus symptoms Blood Urea Nitrogen 19 10 - 20 mg/dL [facility] Creatinine 1.00 0.80 - 1.50 mg/dL [facility] [...] questions. Chloride 105 98 - 107 mmol/L [facility] Carbon Dioxide 29 22 - 31 mmol/L [facility] Anion Gap 9 5 - 15 mmol/L [facility] Calcium 9.0 8.5 - 10.5 mg/dL [facility] Protein, Total 7.2 6.1 - 8.0 gm/dL [facility] Albumin 4.4 3.2 - 5.2 gm/dL [facility] Aspartate Aminotransferase 22 0 - 39 unit/L [facility] Alanine Aminotransferase 26 0 - 55 unit/L [facility] Alkaline Phosphatase 75 40 - 130 unit/L [facility] Bilirubin, Total 0.2 0.2 - 1.3 mg/dL [facility] Est Glomerular Filtration Rate 76 >=60 mL/min/1. 73 m?? [facility] Comment: The eGFR was calculated using the CKD-EPI equation. As with all creatinine based estimates of kidney function, eGFR values calculated with the CKD-EPI equation are not accurate in patients with acute kidney failure, extremes of body mass or the acutely ill. [email or web address] eGFR 88 >=60 mL/min/1. 73 m?? [facility] Comment: The eGFR was calculated using the CKD-EPI equation. As with all creatinine based estimates of kidney function, eGFR values calculated with the CKD-EPI equation are not accurate in patients with acute kidney failure, extremes of body mass or the acutely ill. [email or web address] Blood specimen (specimen) 03/28/2019 2:42 PM EST 03/28/2019 2:55 PM EST Narrative Resulting Agency Comment Spec In Lab Remy Barillas MD CHEMISTRY ORDERABLES [facility] [place] [address] * SCAN DOC: LAB (08/11/2018 12:00 AM EDT) Narrative 08/11/2018 12:00 AM EDT Ordered by an unspecified provider. Scanning Provider MEDIA MGR SCAN EXT O RDR/RSLT documented in this encounter Visit Diagnoses Diagnosis Malignant neoplasm of prostate documented in this encounter Care Teams Die Sinker Relationship Specialty Start Date End Date Celio Sanders MD [address] [place] [address] PCP - General Internal Medicine 05/19/16 documented as of this encounter
--- OUTSIDE RECORDS SUMMARY | 2023-12-29 12:11 | XMS_ITS | Encounter Summary ---
Author Organization [facility] Address [facility] [place] [address] Care Team Providers Care Order Make Up Clerk Name Role Phone Celio Sanders MD Primary Care Provider Encounter Details Date Type Department Care Team (Late st Contact Info) Description 11/16/2018 1:30 PM EDT Office Visit Hematology/Oncology at [address] [phone] Yeni Gallardo APRN [address] [place] [phone] Prostate cancer metastatic to intrapelvic lymph node [...] encounter Progress Notes * Yeni Gallardo Brianna, GRADUATE ASSISTANT - 11/16/2018 1:30 PM EDT Subjective: Patient [...] prior to Lupron injection. Yeni Gallardo, MSN, GRADUATE ASSISTANT, AOCNP documented in this encounter Plan of Treatment Upcoming Encounters Date Type Department Care Team (Late st Contact Info) Description 01/24/2024 2:00 PM EST Office Visit Dermatology at [facility] [address] [place] [address] Prisca Hughes MD [facility] [address] [place] [address] documented as of this encounter Visit Diagnoses Diagnosis Prostate cancer metastatic to intrapelvic lymph node documented in this encounter Care Teams Order Make Up Clerk Relationship Specialty Start Date End Date Celio Sanders MD [address] [place] [address] PCP - General Internal Medicine 05/19/16 documented as of this encounter
--- OUTSIDE RECORDS SUMMARY | 2023-12-29 12:11 | XMS_ITS | Encounter Summary ---
[place] [address] Care Team Providers Care Back End Architect Name Role Phone Celio Sanders MD Primary Care Provider [phone] Reason for Visit * Reason Comments Chemotherapy Lupron * Treatment/Therapy Plan Authorization (Routine) - Closed Specialty Diagnoses / Procedures Referred By Contac t Referred To Contact Diagnoses Prostate cancer metastatic to intrapelvic lymph node Gael Anderson MD [address] [place] [address] [facility] Hem Onc Office [address] [place] [phone] Referral ID Status Reason Start Date Expiration Date Visits Re quested Visits Authorized [id number] Closed 11/15/2017 11/15/2018 1 1 Encounter Details Date Type Department Care Team (Late st Contact Info) Description 08/18/2018 12:00 PM EDT Infusion Hematology Oncology at [address] [phone] Prostate cancer metastatic to intrapelvic [...] at [facility] [address] [place] [address] Prisca Hughes MD [facility] [address] [place] [address] documented as of this encounter Visit Diagnoses [...] Gluteal documented in this encounter Care Teams Back End Architect Relationship Specialty Start Date End Date Celio Sanders MD [address] [place] [address] PCP - General Internal Medicine 05/19/16 documented as of this encounter
--- OUTSIDE RECORDS SUMMARY | 2023-12-29 12:11 | XMS_ITS | Encounter Summary ---
Author Organization [facility] Address [facility] [place] [address] Care Team Providers Care Teacher Visually Impaired Name Role Phone Celio Sanders MD Primary Care Provider [phone] Encounter Details Date Type Department Care Team (Late st Contact Info) Description 07/27/2019 2:30 PM EDT Office Visit Hematology/Oncology at [address] [phone] Remy Barillas MD [facility] [place] [address] Dayana Tompkins, RN Prostate cancer metastatic to [...] this encounter Progress Notes * Dayana Tompkins, PLATER HELPER - 07/27/2019 2:30 PM EDT Subjective: Encounter [...] negative 9. Genetic testing 03/2018 - Result: [employer]'s Common Hereditary Cancers Panel showed that Nain carries a pathogenic variant (mutation) in BRCA2 specifically c.1929del(p.[id number]). This result is consistent with a diagnosis [...] BRCA2, BRIP1, CDH1, CDK4, CDKN2A (p14ARF), CDKN2A (z17IKR0q), CHEK2, CTNNA1, DICER1, EPCAM (EPCAM: Deletion/duplication testing [...] the AXIN2 and CTNNA1 genes, specifically c.1531A>T (p.Ebw933Sir) and c.515A>T (p.Pcm126Jgz), were detected. ? Interpretation: The most significant consequences of carrying a pathogenic variant in BRCA2 are increased risks forbreast cancer and ovarian cancer in women. For men, the most significant consequence is for prostate cancer so this finding is felt to be related to Nancies cancer. Other cancers associated with HOOM7dxr breast cancer in men, pancreatic, and melanoma. [...] ?? Nain's sons live in [place] and [place]. They can go to the website of [...] the gene with no increased cancer risks. [employer] is continually collecting and analyzing their data, [...] and mailing address stay updated in the [facility] system, in order for us to [...] in the future, Dr. Ara Mary, a uniform patrol police officer at [facility] in [place], is willing to discuss these screening options with Nain. Nain can schedule an appointment with her by reaching her corporation secretary at [phone]. ?? Prostate Cancer Screening for Nain's sons [...] Periodic colonoscopy screening as recommended by Nain's uniform patrol police officer. ?? HPI Mr. Mckeon is seen in f/u of prostate cancer. This is his first visit with me. Mr. Mckeon returns to the [facility] for follow up of his prostate [...] to burn. Soc Hx: , lives in [place], [place]. He goes to [place] from December to June. 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 [place] score was 8 in two of the [...] [facility] [address] [place] [address] Prisca Hughes MD [facility] [address] [place] [address] documented as of this encounter Visit Diagnoses Diagnosis Prostate cancer metastatic to intrapelvic lymph node documented in this encounter Care Teams Teacher Visually Impaired Relationship Specialty Start Date End Date Celio Sanders MD [address] [place] [address] PCP - General Internal Medicine 05/19/16 documented as of this encounter
--- OUTSIDE RECORDS SUMMARY | 2023-12-29 12:11 | XMS_ITS | Encounter Summary ---
Author Organization [facility] Address [facility] [place] [address] Care Team Providers Care Bottle Capper Name Role Phone Celio Sanders MD Primary Care Provider [phone] Encounter Details Date Type Department Care Team (Late st Contact Info) Description 02/09/2019 2:30 PM EST Office Visit Hematology/Oncology at [address] [phone] Remy Barillas MD [facility] [place] [address] Dayana Tompkins, RN Malignant neoplasm of prostate [...] 5/12 cores (all on right side), T2b, [place] 8 Darlyn-neural invasion present PSA - 47.5 [...] 1-2 times/night. Soc Hx: , lives in [place], [place]. He goes to [place] from December to June. 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 [place] score was 8 in two of the [...] 2:00 PM EST Office Visit Dermatology at [facility] [address] [place] [address] Prisca Hughes MD [facility] [address] [place] [address] documented as of this encounter Visit Diagnoses Diagnosis Malignant neoplasm of prostate documented in this encounter Care Teams Bottle Capper Relationship Specialty Start Date End Date Celio Sanders MD [address] [place] [address] PCP - General Internal Medicine 05/19/16 documented as of this encounter
--- OUTSIDE RECORDS SUMMARY | 2023-12-29 12:11 | XMS_ITS | Encounter Summary ---
Author Organization [facility] [place] [address] Care Team Providers Care Lockstitcher Name Role Phone Celio Sanders MD Primary Care Provider [phone] Encounter Details Date Type Department Care Team (Late st Contact Info) Description 09/09/2017 Telephone Radiation Oncology at [address] [phone] Alta Rowland RN Social History [...] Radiation Oncology Nurse Telephone Note [facility] [place], [place] ----- Message from Ronnie Vazquez MD sent at 09/09/2017 3:01 PM EDT ----- Regarding: RE: Pt looking for refill of Rx Sure - thank you ----- Message ----- From: Alta Muse RN Sent: 09/09/2017 2:52 PM To: Ronnie Vazquez MD, [facility] Rad Onc Nurse Subject: FW: Pt looking [...] needs a refill of his Flomax at [facility]. Thanks, Harjeet Phone call to pt that prescription for Flomax was sent to [facility] pharmacy. documented in this encounter Plan of Treatment Upcoming Encounters Date Type Department Care Team (Late st Contact Info) Description 01/24/2024 2:00 PM EST Office Visit Dermatology at [facility] [address] [place] [address] Prisca Hughes MD [facility] [address] [place] [address] documented as of this encounter Visit Diagnoses Diagnosis Malignant neoplasm of prostate documented in this encounter Care Teams Lockstitcher Relationship Specialty Start Date End Date Celio Sanders MD [address] [place] [address] PCP - General Internal Medicine 05/19/16 documented as of this encounter
--- OUTSIDE RECORDS SUMMARY | 2023-12-29 12:11 | XMS_ITS | Encounter Summary ---
Author Organization [facility] [place] [address] Care Team Providers Care Business Development Coordinator Name Role Phone Celio Sanders MD Primary Care Provider [phone] Reason for Visit * Reason Comments Other lupron 22.5 mg * Treatment/Therapy Plan Authorization (Routine) - Closed Specialty Diagnoses / Procedures Referred By Contac t Referred To Contact Diagnoses Prostate cancer metastatic to intrapelvic lymph node Gael Anderson MD [address] [place] [address] [facility] Hem Onc Office [address] [place] [phone] Referral ID Status Reason Start Date Expiration Date Visits Re quested Visits Authorized [id number] Closed 11/15/2017 11/15/2018 1 1 Encounter Details Date Type Department Care Team (Late st Contact Info) Description 05/04/2019 11:30 AM EST Infusion Hematology Oncology at [address] [phone] Prostate cancer metastatic to intrapelvic [...] Dermatology at [facility] [address] [place] [address] Prisca Hughes MD [facility] [place] [address] documented as of this encounter Visit Diagnoses [...] Gluteal documented in this encounter Care Teams Business Development Coordinator Relationship Specialty Start Date End Date Celio Sanders MD [address] [place] [address] PCP - General Internal Medicine 05/19/16 documented as of this encounter
--- OUTSIDE RECORDS SUMMARY | 2023-12-29 12:11 | XMS_ITS | Encounter Summary ---
Author Organization [facility] Address [facility] [place] [address] Care Team Providers Care Panel Cutter Name Role Phone Celio Sanders MD Primary Care Provider [phone] Reason for Visit * Reason Comments Genetic Evaluation * Consultation (Routine) - Closed Specialty Diagnoses / Procedures Referred By Contkulwant t Referred To Contact Hematology and Oncology Diagnoses Malignant neoplasm of prostate Remy Barillas MD [facility] [place] [address] St Hem Onc Office [address] [place] [phone] Referral ID Status Reason Start Date Expiration Date V isits Requested Visits Authorized [id number] Closed Consult, Test & Treat 08/18/2018 08/18/2019 1 1 Encounter Details Date Type Department Care Team (Late st Contact Info) Description 03/28/2019 1:30 PM EST Office Visit [place] [address] Eden Copeland, [facility] HEMATOLOGY/[place] [address] Prostate cancer metastatic to intrapelvic lymph node [...] LGC - 03/28/2019 1:30 PM EST Nain Mcekon was seen by LYNNE Burns in consultation [...] the family. Nain opted for testing with [employer]'s Common Hereditary Cancers Panel, a next generation sequencing panel that simultaneously analyzes 47 genes, including BRCA1 and BRCA2 which could have treatment implications and that contribute to increased risk for cancer. Nain was consented. His blood sample was drawn and sent to [employer]. Testing will take approximately 3 weeks. Nain [...] 2:00 PM EST Office Visit Dermatology at [facility] [address] [place] [address] Prisca Hughes MD [facility] [place] [address] documented as of this encounter Results * Research Venipuncture (03/28/2019 2:42 PM EST) Research Venipuncture Drawn [facility] Blood specimen (specimen) 03/28/2019 2:42 PM EST 03/28/2019 3:44 PM EST Narrative Resulting Agency Comment Spec In Lab Tre Walker MD CHEMISTRY ORDERABLES [facility] [place] [address] documented in this encounter Visit Diagnoses Diagnosis Prostate cancer metastatic to intrapelvic lymph node documented in this encounter Care Teams Panel Cutter Relationship Specialty Start Date End Date Celio Sanders MD [address] [place] [address] PCP - General Internal Medicine 05/19/16 documented as of this encounter
--- OUTSIDE RECORDS SUMMARY | 2023-12-29 12:11 | XMS_ITS | Encounter Summary ---
Author Organization [facility] Address [facility] [place] [address] Care Team Providers Care Social Services Name Role Phone Celio Sanders MD Primary Care Provider [phone] Encounter Details Date Type Department Care Team (Late st Contact Info) Description 06/30/2020 1:30 PM EDT Office Visit Hematology/Oncology at [address] [phone] Swathi Uriostegui APRN [address] [place] [address] DR HEMATOLOGY ONCOLOGY [place], [place] [phone] Prostate cancer metastatic to intrapelvic lymph node; [...] this encounter Progress Notes * Swathi Uriostegui, COLOR CONTROL SUPERVISOR - 06/30/2020 1:30 PM EDT Subjective: Patient [...] 5/12 cores (all on right side), T2b, [place] 8 Darlyn-neural invasion present PSA - 47.5 [...] a pathogenic variant (mutation) in BRCA2 specifically c.1929del(p.[id number]). 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 At the time of the appointment,??Tasiawas provided with a printed copy of his??test result and an informational packet addressing a positive test result. ?? The following??47??genes were evaluated for sequence changes and exonic deletions/duplications: APC, RUMA, AXIN2, BARD1, BMPR1A, BRCA1, BRCA2, BRIP1, CDH1, CDK4, CDKN2A (p14ARF), CDKN2A (k51PZT2w), CHEK2, CTNNA1, DICER1, EPCAM (EPCAM: Deletion/duplication testing [...] (VUS) in the AXIN2 and CTNNA1??genes, specifically c.1531A>T(p.Nrl913Hct) and c.515A>T (p.Gqz847Emj), were??detected. ? Interpretation: The most significant consequences [...] with them. ?? Nain's sons live in [place] and [place]. ??They can go to the [...] and mailing address stay updated in the [facility] system, in order for us to reach [...] possibility in the future,??Dr. Ara Mary, a aboriginal liaison officer at [facility] in [place], is willing to discuss these screening options with Nain.??Nain??can schedule an appointment with her by reaching her pathology secretary at [phone]. ?? Prostate Cancer Screening for Nain's sons ? Prostate cancer screening starting at age 40.?If either of them is found to not have the BRCA2 mutation then they can consider screening beginning at age 50 which is the recommendation for menin the general population ?? Skin cancer screening ?? Periodic skin exams ?? Colon cancer screening ?? Periodic colonoscopy screening as recommended by??Nain's aboriginal liaison officer. ?. ??SUMMARY ASSESSMENT/PLAN 07/24 He was diagnosed [...] PSA. ? Soc Hx: , lives in [place], [place]. He goes to [place] from December to June. 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 Fam Hx: Father with prostate [...] as summarized above.) Nain returns [facility] in [facility] today for follow up surveillance visit with PSA review. His last Lupron injection was 04/26. Nain says he feels really good. His energy is good and he continues to take long walks daily with his dogs. He feels his depression recovery is continuing to go well. He also works out regularly at [employer] and is looking forward to participating in [...] returns to the [facility] oncology clinic in [facility] today for followup surveillance visit [...] 2:00 PM EST Office Visit Dermatology at [facility] [address] [place] [address] Prisca Hughes MD [facility] DR [address] [place] [address] documented as of this encounter Visit Diagnoses Diagnosis Prostate cancer metastatic to intrapelvic lymph node Malignant neoplasm of prostate BRCA2 positive Genetic susceptibility to malignant neoplasm of breast documented in this encounter Care Teams Social Services Relationship Specialty Start Date End Date Celio Sanders MD [address] [place] [address] PCP - General Internal Medicine 05/19/16 documented as of this encounter
--- OUTSIDE RECORDS SUMMARY | 2023-12-29 12:11 | XMS_ITS | Encounter Summary ---
Author Organization [facility] Address [facility] [place] [address] Care Team Providers Care General Internal Medicine Physician Name Role Phone Celio Sanders MD Primary Care Provider [phone] Encounter Details Date Type Department Care Team (Late st Contact Info) Description 07/17/2021 3:30 PM EDT Office Visit Hematology/Oncology at [address] [address] Dayana Tompkins RN BRCA gene [...] this encounter Progress Notes * Dayana Tompkins, PAPER BOX MAKER - 07/17/2021 3:30 PM EDT Subjective: Patient [...] a pathogenic variant (mutation) in BRCA2 specifically c.1929del(p.[id number]). 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 At the time of the appointment,??Nain?Jessywas provided with a printed copy of his??test result and an informational packet addressing a positive test result. ?? The following??47??genes were evaluated for sequence changes and exonic deletions/duplications: APC, RUMA, AXIN2, BARD1, BMPR1A, BRCA1, BRCA2, BRIP1, CDH1, CDK4, CDKN2A (p14ARF), CDKN2A (b28QJQ5n), CHEK2, CTNNA1, DICER1, EPCAM (EPCAM: Deletion/duplication testing [...] (VUS) in the AXIN2 and CTNNA1??genes, specifically c.1531A>T(p.Trq490Xhz) and c.515A>T (p.Emn322Ekx), were??detected. ? Interpretation: The most significant consequences [...] ?? Nain's sons live in [place] and [place]. ??They can go to the website of [...] and mailing address stay updated in the [facility] [employer] [place] system, in order for us to reach [...] possibility in the future,??Dr. Ara Mary, a landing worker at [facility] in [place], is willing to discuss these screening options with Nain.??Nain??can schedule an appointment with her by reaching her hospice patient care secretary at [phone]. ?? Prostate Cancer Screening for Nain's sons ? Prostate cancer screening starting at age 40.?If either of them is found to not have the BRCA2 mutation then they can consider screening beginning at age 50 which is the recommendation for menin the general population ?? Skin cancer screening ?? Periodic skin exams ?? Colon cancer screening ?? Periodic colonoscopy screening as recommended by??Nain's landing worker. ?. ??SUMMARY ASSESSMENT/PLAN 07/24 He was diagnosed with prostate cancer in 2016 after presenting with hematuria and found to have an abnormal prostate gland on exam. TRUS prostate bx showed adenocarcinoma in 5/12 cores, all on the right. Potsdam score was 8 in two of the [...] PSA. ? Soc Hx: , lives in [place], [place]. He goes to [place] from December to June. 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 Fam Hx: Father with prostate [...] as summarized above.) Nain returns to the [facility] oncology clinic in [facility] today for follow up surveillance visit [...] swimming 5-6 times a week at the [facility]. He also walks his dogs daily. His [...] Nain is in agreement to see a tailer out for baseline exam as his BRCA2 positive [...] returns to the [facility] oncology clinic in [facility] today for followup surveillance visit with [...] Dermatology at [facility] [address] [place] [address] Prisca Hughes MD [facility] [address] [place] [address] documented as of this encounter Visit Diagnoses Diagnosis BRCA gene mutation positive Prostate cancer metastatic to intrapelvic lymph node documented in this encounter Care Teams General Internal Medicine Physician Relationship Specialty Start Date End Date Celio Sanders MD [address] [place] [address] PCP - General Internal Medicine 05/19/16 documented as of this encounter
--- OUTSIDE RECORDS SUMMARY | 2023-12-29 12:11 | XMS_ITS | Encounter Summary ---
Author Organization Counts Include [facility] Address [facility] [place] [address] Care Team Providers Care School Aide Name Role Phone Celio Sanders MD Primary Care Provider [phone] Encounter Details Date Type Department Care Team (Late st Contact Info) Description 05/12/2021 2:45 PM EST - 05/12/2021 3:30 PM EST [place] [address] Nicky Bray MD [facility] [place] [address] COLONOSCOPY, DIAGNOSTIC (WRVU 3.26) Social History Tobacco [...] 2:00 PM EST Office Visit Dermatology at [address] [address] Prisca Hughes MD [facility] DR [place] [address] documented as of this encounter Procedures Procedure Name Priority Date/Time Associated Diagnosis Comments SPECIMEN TO PATHOLOGY Routine 05/12/2021 3:10 PM EST SURGICAL PATHOLOGY REPORT Routine 05/12/2021 2:59 PM EST Colonoscopy, Diagnostic (42460) 05/12/2021 2:31 PM EST BRCA gene mutation positive COLONOSCOPY Routine 05/12/2021 2:18 PM EST documented in this encounter Results * Specimen to Pathology (05/12/2021 3:10 PM EST) AP Specimen 05/12/2021 3:10 PM EST 05/12/2021 3:10 PM EST Narrative [facility] - 05/12/2021 3:10 PM EST Specimen requisition ordered. ??Separate Pathology report to follow Nicky Bray MD PATHOLOGY/CYTOLOGY O RDERABLES [facility] [place] [address] * Surgical Pathology Report (05/12/2021 2:59 PM EST) Final Diagnosis [id number] ? Location: 4T; EA12; A The signing pathologist has (i) examined the relevant preparation(s) for the specimen(s) and (ii) rendered or confirmed the diagnosis(es). . ?Surgical Pathology DIAGNOSIS A - Descending colon polyp 3mm, excision: - ??Tubular adenoma. CR-PX Electronically signed by: ?Michelle MUNOZ, Eduard Verified: ??05/14/2021 15:49 ??Pathologist Performed at: ??-[facility] [place], [place], [place] SPECIMEN(S) SUBMITTED A - Descending colon [...] labeled A1. ??pps 05/14/2021 3:49 PM EST [facility] GI Biopsy 05/12/2021 2:59 PM EST 05/12/2021 2:59 PM EST Nicky Bray MD PATHOLOGY/CYTOLOGY O RDERALUIS DANIEL Performing Organization Address [facility]/ZIP Co de Phone Number [facility] [place] [address] * COLONOSCOPY (05/12/2021 2:18 PM EST) COLONOSCOPY [facility] Procedure Date: 05/12/2021 2:18 PM ? Patient Name: Nain Mckeon ? Date of : 1950 ? Age: 70 ? Order #: [id number] ? Instrument Name: [id number] ? Procedure: ? Colonoscopy Indications: ? Screening patient at increased risk: ? Family history of 1st-degree relative ? with colorectal cancer at age 60 ? years (or older) Providers: ? Nicky Bray MD, Sav Platt ? Ivon Angel, Clipper Automatic Referring MD: ?Celio Sanders MD Medicines: ? [...] preparation was ? evaluated using the BBPS (Campbell ? Bowel Preparation Scale) with scores ? [...] Procedure Code(s): ?? --- Professional --- ? 35248, Colonoscopy, flexible; with ? removal of tumor(s), polyp(s), or ? other lesion(s) by snare technique CPT copyright 2019 [employer]. All rights reserved. The codes documented in this report are preliminary and upon professor of radiology review may be revised to meet current [...] CRNA) documented in this encounter Care Teams School Aide Relationship Specialty Start Date End Date Celio Sanders MD [address] [place] [address] PCP - General Internal Medicine 05/19/16 documented as of this encounter
--- OUTSIDE RECORDS SUMMARY | 2023-12-29 12:11 | XMS_ITS | Encounter Summary ---
Author Organization [facility] Address [facility] KRISS Suárez [address] Care Team Providers Care Manager Women Name Role Phone Celio Sanders MD Primary Care Provider [phone] Reason for Visit * Reason Comments Injections Lupron Encounter Details Date Type Department Care Team (Late Contact Info) Description 08/23/2017 3:30 PM EDT Infusion Hematology Oncology at [address] [address] Neoplasm of prostate regional lymph [...] 2:00 PM EST Office Visit Dermatology at [facility] [address] [place] [address] Prisca Hughes MD [facility] [place] [address] documented as of this encounter Visit Diagnoses [...] Gluteal documented in this encounter Care Teams Manager Women Relationship Specialty Start Date End Date Celio Sanders MD [address] [place] [address] PCP - General Internal Medicine 05/19/16 documented as of this encounter
--- OUTSIDE RECORDS SUMMARY | 2023-12-29 12:11 | XMS_ITS | Encounter Summary ---
Author Organization [facility] Address [facility] [place] [address] Care Team Providers Care Inventory Control Assistant Name Role Phone Celio Sanders MD Primary Care Provider [phone] Encounter Details Date Type Department Care Team (Late st Contact Info) Description 03/23/2019 Notes Only Hematology [place] [address] Tre Walker MD [facility] DR HEMATOLOGY/[place] [address] Social History Tobacco Use Types Packs/Day Years [...] PM EST Office Visit Dermatology at [facility] [address] [place] [address] Prisca Hughes MD [facility] DR PHOE[address] [place] [address] documented as of this encounter Visit Diagnoses Not on filedocumented in this encounter Care Teams Inventory Control Assistant Relationship Specialty Start Date End Date Celio Sanders MD [address] [place] [address] PCP - General Internal Medicine 05/19/16 documented as of this encounter
--- OUTSIDE RECORDS SUMMARY | 2023-12-29 12:11 | XMS_ITS | Encounter Summary ---
Author Organization [facility] Address [facility] [place] [address] Care Team Providers Care Licensing Engineer Name Role Phone Celio Sanders MD Primary Care Provider [phone] Reason for Visit * Reason Comments Results BRCA2 mutation Encounter Details Date Type Department Care Team (Late st Contact Info) Description 05/02/2019 9:30 AM EST Office Visit Hematology [place] [address] Tre Walker MD [facility] HEMATOLOGY/[place] [address] Eden Copeland, [facility] HEMATOLOGY[place] [address] Prostate cancer metastatic to intrapelvic lymph node; [...] Nain Mckeon was seen by Eden Copeland [facility] and myself in the Familial Cancer Program to receive results from genetic testing. I spent all of 30 minutes in [id number] consultation outlining the test result and its implications. A summary is below and a copy has been sent to Nain. Please be advised that [place] law requires that all health care workers respect the confidentiality of this information and not pass it along to other health care providers, insurance companies, or individualswithout the written permission of the patient. The Familial Cancer Program welcomes any questions about these matters. Our phone number is: [phone]. On 03/28/2019, Nain underwent gene panel analysis based on the personal history of prostate cancer and family history of prostate, breast, pancreatic and possibly ovarian cancer. Following are the results of this test. Result: [employer] Common Hereditary Cancers Panel showed that Nain carries a pathogenic variant (mutation) in BRCA2 specifically c.1929del(p.[id number]). This result is consistent with a diagnosis [...] BRCA2, BRIP1, CDH1, CDK4, CDKN2A (p14ARF), CDKN2A (w74NZO5b), CHEK2, CTNNA1, DICER1, EPCAM (EPCAM: Deletion/duplication testing [...] the AXIN2 and CTNNA1 genes, specifically c.1531A>T (p.Waq457Fyd) and c.515A>T (p.Jcr177Eli), were detected. Interpretation: The most significant consequences of carrying a pathogenic variant in BRCA2 are increased risks forbreast cancer and ovarian cancer in women. For men, the most significant consequence is for prostate cancer so this finding is felt to be related to Nancies cancer. Other cancers associated with KNOH2fqw breast cancer in men, pancreatic, and melanoma. [...] information with them. Nain's sons live in [place] and [place]. They can go to the website of [...] the gene with no increased cancer risks. [employer] is continually collecting and analyzing their data, [...] and mailing address stay updated in the [facility] system, in order for us to reach [...] in the future, Dr. Ara Mary, a training professional at [facility] in [place], is willing to discuss these screening options with Nain. Nain can schedule an appointment with her by reaching her computer instructor at [phone]. Prostate Cancer Screening for Nain's sons ?? Prostate cancer screening starting at age 40. If either of them is found to not have the BRCA2 mutation then they can consider screening beginning at age 50 which is the recommendation for men in the general population Skin cancer screening ??? Periodic skin exams Colon cancer screening ?? Periodic colonoscopy screening as recommended by Nain's training professional. 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
--- OUTSIDE RECORDS SUMMARY | 2023-12-29 12:11 | XMS_ITS | Encounter Summary ---
Author Organization Counts Include [address] [facility] [address] Care Team Providers Care Egg Factory Worker Name Role Phone Celio Sanders MD Primary Care Provider [phone] Reason for Referral * Consultation (Routine) - Closed Specialty Diagnoses / Procedures Referred By Tess de la rosa Referred To Contact Dermatology Diagnoses BRCA gene mutation positive Prostate cancer metastatic to intrapelvic lymph node Dayana Tompkins, RN [address] [place] [address] [place] [address] [facility] Dermatology [address] [place] [address] Referral ID Status Reason Start Date Expiration Date V isits Requested Visits Authorized [id number] Closed Consult, Test & Treat 07/20/2021 07/20/2022 1 1 Encounter Details Date Type Department Care Team ([facility] Contact Info) Description 07/20/2021 Orders Only Hematology/Oncology at [address] [address] Dayana Tompkins, RN BRCA gene mutation positive; [...] [facility] [address] [place] [address] Prisca Hughes MD [facility] DR [address] [place] [address] Scheduled Referrals Name Type Priority Associated Diagnoses Orde r Schedule Referral to Dermatology Outpatient Referral Routine BRCA gene mutation positive Prostate cancer metastatic to intrapelvic lymph node Ordered: 07/20/2021 documented as of this encounter Visit Diagnoses Diagnosis BRCA gene mutation positive Prostate cancer metastatic to intrapelvic lymph node documented in this encounter Care Teams Egg Factory Worker Relationship Specialty Start Date End Date Celio Sanders MD [address] [place] [address] PCP - General Internal Medicine 05/19/16 documented as of this encounter
--- OUTSIDE RECORDS SUMMARY | 2023-12-29 12:11 | XMS_ITS | Encounter Summary ---
Author Organization [facility] Address [facility] [place] [address] Care Team Providers Care Rcis Name Role Phone Celio Sanders MD Primary Care Provider [phone] Encounter Details Date Type Department Care Team (Late Contact Info) Description 04/27/2019 Ancillary Procedure Radiology Library at [facility], [place] [address] Remy Barillas MD [facility] [address] [place] [address] Social History Tobacco Use Types Packs/Day Years [...] PM EST Office Visit Dermatology at [address] [place] [address] Prisca Hughes MD [facility] DR [place] [address] documented as of this encounter Procedures Procedure [...] Barillas MD IMG FILM LIBRARY ORD ERABLES [place], [place] documented in this encounter Visit Diagnoses Not on filedocumented in this encounter Care Teams Rcis Relationship Specialty Start Date End Date Celio Sandesr MD [address] [place] [address] PCP - General Internal Medicine 05/19/16 documented as of this encounter
--- OUTSIDE RECORDS SUMMARY | 2023-12-29 12:11 | XMS_ITS | Encounter Summary ---
Author Organization [facility] [place] [address] Care Team Providers Care Program Management Professional Name Role Phone Celio Sanders MD Primary Care Provider [phone] Reason for Visit * Reason Onset Date Comments Results 04/04/2019 BRCA2 mutation Encounter Details Date Type Department Care Team (Late st Contact Info) Description 04/04/2019 Telephone Hematology [place] [address] [facility] [address] Results (BRCA2 mutation) Social History Tobacco Use [...] Notes * Telephone Encounter - Eden Copeland [facility] - 04/04/2019 4:05 PM EST I [...] for him. Shelbie, the Familial Cancer Program certified legal secretary specialist will call Nain tomorrow afternoon (when his [...] 2:00 PM EST Office Visit Dermatology at [facility] [address] [place] [address] Prisca Hughes MD [facility] [address] [place] [address] documented as of this encounter Visit Diagnoses Not on filedocumented in this encounter Care Teams Program Management Professional Relationship Specialty Start Date End Date Celio Sanders MD [address] [place] [address] PCP - General Internal Medicine 05/19/16 documented as of this encounter
--- OUTSIDE RECORDS SUMMARY | 2023-12-29 12:11 | XMS_ITS | Encounter Summary ---
Author Organization [facility] [place] [address] Care Team Providers Care Endoscopic Technician Name Role Phone Celio Sanders MD Primary Care Provider [phone] Encounter Details Date Type Department Care Team (Late st Contact Info) Description 05/12/2021 2:23 PM EST Anesthesia [place] [address] Celio Alvarado DO [facility] [place] [address] Unruly Noriega MD [facility] [place] [address] Anesthesia Record Procedure Summary Procedure Name Responsible [...] 1400; median cubital vein (antecubital fossa), right; uuly-akk-amsrom catheter system; Anatomical Landmarks; US Not Used; [...] Procedure Summary Date: 05/12/21 Room / Location: [facility] ENDO 1 / [facility] ENDOSCOPY Anesthesia Start: 1423 Anesthesia Stop: 1509 Procedure: COLONOSCOPY, DIAGNOSTIC (N/A Trunk) Diagnosis: (BRCA gene mutation positive) Surgeons: Nicky Bray MD Responsible Provider: Celio Alvarado DO Anesthesia Type: MAC ASA Status: 2 All Anesthesia Providers: Anesthesiologist: Celio Alvarado DO AUTOCUTTER: Tarun Brambila CRNA Vitals Value Taken Time BP 116/60 05/12/21 1530 Temp Pulse Resp SpO2 100 % 05/12/21 1530 Pain Level Patient Location: PACU/[facility] Level of Consciousness: Conscious but Sleepy Pain [...] and verbalized understanding. Explained that anesthesia at [facility] is commonly delivered in a team care model fashion, with either resident or CRNAs supervised by an anesthesiologist, who frequently supervises one or more other anesthesia deliveries, provide care. -- Unruly Noriega MD, MS Informed Consent: Anesthetic plan and risks discussed with patient. Plan discussed with AUTOCUTTER. Anesthesia Screening documented in this encounter Plan of Treatment Upcoming Encounters Date Type Department Care Team (Late st Contact Info) Description 01/24/2024 2:00 PM EST Office Visit Dermatology at [facility] [address] [place] [address] Prisca Hughes MD [facility] DR [facility] [place] [address] documented as of this encounter Visit Diagnoses [...] mg documented in this encounter Care Teams Endoscopic Technician Relationship Specialty Start Date End Date Celio Sanders MD [address] [place] [address] PCP - General Internal Medicine 05/19/16 documented as of this encounter
--- OUTSIDE RECORDS SUMMARY | 2023-12-29 12:11 | XMS_ITS | Encounter Summary ---
Author Organization [facility] [place] [address] Care Team Providers Care Per Assessment Nurse Name Role Phone Celio Sanders MD Primary Care Provider [phone] Reason for Referral * Surgical (Urgent) - Closed Specialty Diagnoses / Procedures Referred By Tess de la rosa Referred To Contact Gastroenterology Diagnoses BRCA gene mutation positive Remy Barillas MD [facility] [place] [address] [facility] [place] [facility] Endoscopy [address] [place] [address] Referral ID Status Reason Start Date Expiration Date Visits Re quested Visits Authorized [id number] Closed 02/03/2021 02/03/2022 1 1 Encounter Details Date Type Department Care Team (Late st Contact Info) Description 02/03/2021 Orders Only Hematology [place] [address] Remy Barillas MD [facility] [place] [address] BRCA gene mutation positive Social History Tobacco [...] Dermatology at [facility] [address] [place] [address] Prisca Hughes MD [facility] DR [place] [address] Scheduled Referrals Name Type Priority Associated Diagnoses Order Schedule REFERRAL TO COLONOSCOPY PROCEDURE Outpatient Referral Routine BRCA gene mutation positive Ordered: 02/03/2021 documented as of this encounter Visit Diagnoses Diagnosis BRCA gene mutation positive documented in this encounter Care Teams Per Assessment Nurse Relationship Specialty Start Date End Date Celio Sanders MD [address] [place] [address] PCP - General Internal Medicine 05/19/16 documented as of this encounter
--- OUTSIDE RECORDS SUMMARY | 2023-12-29 12:11 | XMS_ITS | Encounter Summary ---
Author Organization Formerly [facility], [facility] Address [facility] [place] [address] Care Team Providers Care Food Products Tester Name Role Phone Celio Sanders MD Primary Care Provider [phone] Encounter Details Date Type Department Care Team (Late st Contact Info) Description 02/09/2021 Telephone [place] [phone] Dori Maharaj Social History Tobacco Use Types [...] - 02/09/2021 12:01 PM EST Nain Mckeon [id number] Diagnosis/Indication: BRCA gene mutation positive 1. Have [...] to patient: You must have a responsible republican who will drive you to your procedure, [...] 2:00 PM EST Office Visit Dermatology at [facility] [address] [place] [address] Prisca Hughes MD [facility] [address] [place] [address] documented as of this encounter Visit Diagnoses Not on filedocumented in this encounter Care Teams Food Products Tester Relationship Specialty Start Date End Date Celio Sanders MD [address] [place] [address] PCP - General Internal Medicine 05/19/16 documented as of this encounter
--- OUTSIDE RECORDS SUMMARY | 2023-12-29 12:11 | XMS_ITS | Encounter Summary ---
Author Organization [facility] Address [facility] [place] [address] Care Team Providers Care Process Treater Name Role Phone Celio Sanders MD Primary Care Provider Encounter Details Date Type Department Care Team (Late st Contact Info) Description 12/28/2019 2:30 PM EDT Office Visit Hematology/Oncology at [address] [phone] Remy Barillas MD [facility] [place] [address] Swathi Uriostegui APRN [address] [place] [address] DR HEMATOLOGY ONCOLOGY [place], [place] [id number] Prostate cancer metastatic to intrapelvic lymph node [...] a pathogenic variant (mutation) in BRCA2 specifically c.1929del(p.Gie284Mwxjv15). 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 At the time of the appointment,??Tasiawas provided with a printed copy of his??test result and an informational packet addressing a positive test result. ?? The following??47??genes were evaluated for sequence changes and exonic deletions/duplications: APC, RUMA, AXIN2, BARD1, BMPR1A, BRCA1, BRCA2, BRIP1, CDH1, CDK4, CDKN2A (p14ARF), CDKN2A (c43AAF4e), CHEK2, CTNNA1, DICER1, EPCAM (EPCAM: Deletion/duplication testing [...] (VUS) in the AXIN2 and CTNNA1??genes, specifically c.1531A>T(p.Ous605Psn) and c.515A>T (p.Oby977Ytw), were??detected. ? Interpretation: The most significant consequences [...] ?? Nain's sons live in [place] and [place]. ??They can go to the website of [...] and mailing address stay updated in the [facility] system, in order for us to [...] possibility in the future,??Dr. Ara Mary, a biofuels plant construction worker at [facility] in [place], is willing to discuss these screening options with Nain.??Nain??can schedule an appointment with her by reaching her pathology secretary/transcriptionist at [phone]. ?? Prostate Cancer Screening for Nain's sons ? Prostate cancer screening starting at age 40.?If either of them is found to not have the BRCA2 mutation then they can consider screening beginning at age 50 which is the recommendation for menin the general population ?? Skin cancer screening ?? Periodic skin exams ?? Colon cancer screening ?? Periodic colonoscopy screening as recommended by??Nain's biofuels plant construction worker. ?. ??SUMMARY ASSESSMENT/PLAN 07/24 He was [...] PSA. ? Soc Hx: , lives in [place], [place]. He goes to [place] from December to June. 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 Fam Hx: Father with prostate cancer [...] returns to the [facility] oncology clinic in [facility] today for follow up surveillance visit with PSA review. His last Lupron injection was 04/26. Nain reports he recently had a major depressive episode and is currently living in transitional housing following an inpatient stay at the [facility] about 3 weeks ago. Nain says [...] as summarized above.) Nain returns to the [facility] oncology clinic in [facility] today for follow up surveillance [...] Dermatology at [facility] [address] [place] [address] Prisca Hughes MD [facility] DR [facility] [place] [address] documented as of this encounter Visit Diagnoses Diagnosis Prostate cancer metastatic to intrapelvic lymph node documented in this encounter Care Teams Process Treater Relationship Specialty Start Date End Date Celio Sanders MD [address] [place] [address] PCP - General Internal Medicine 05/19/16 documented as of this encounter
--- OUTSIDE RECORDS SUMMARY | 2023-12-29 12:11 | XMS_ITS | Encounter Summary ---
Author Organization [facility] Address [facility] [place] [address] Care Team Providers Care Gun Tester Name Role Phone Celio Sanders MD Primary Care Provider [phone] Encounter Details Date Type Department Care Team (Late st Contact Info) Description 02/09/2021 Telephone [place] [phone] Dori Maharaj Social History Tobacco Use Types [...] [facility] [address] [place] [address] Prisca Hughes MD [facility] DR [address] [place] [address] documented as of this encounter Visit Diagnoses Not on filedocumented in this encounter Care Teams Gun Tester Relationship Specialty Start Date End Date Celio Sanders MD [address] [place] [address] PCP - General Internal Medicine 05/19/16 documented as of this encounter
--- OUTSIDE RECORDS SUMMARY | 2023-12-29 12:11 | XMS_ITS | Encounter Summary ---
[place] [address] Care Team Providers Care Driver Courier Name Role Phone Celio Sanders MD Primary Care Provider [phone] Reason for Visit * Reason Comments Injections Lupron * Treatment/Therapy Plan Authorization (Routine) - Closed Specialty Diagnoses / Procedures Referred By Contac t Referred To Contact Diagnoses Prostate cancer metastatic to intrapelvic lymph node Gael Anderson MD [address] [place] [address] [facility] Hem Onc Office [address] [place] [phone] Referral ID Status Reason Start Date Expiration Date Visits Re quested Visits Authorized [id number] Closed 11/15/2017 11/15/2018 1 1 Encounter Details Date Type Department Care Team (Late st Contact Info) Description 02/09/2019 3:00 PM EST Infusion Hematology Oncology at [address] [phone] Prostate cancer metastatic to intrapelvic [...] at [facility] [address] [place] [address] Prisca Hughes MD [facility] [place] [address] documented as of this encounter Visit Diagnoses [...] Gluteal documented in this encounter Care Teams Driver Courier Relationship Specialty Start Date End Date Celio Sanders MD [address] [place] [address] PCP - General Internal Medicine 05/19/16 documented as of this encounter
--- OUTSIDE RECORDS SUMMARY | 2023-12-29 12:11 | XMS_ITS | Encounter Summary ---
[place] [address] Care Team Providers Care Eyeglass Lens Cutter Name Role Phone Celio Sanders MD Primary Care Provider [phone] Reason for Visit * Reason Comments Injections Lupron * Treatment/Therapy Plan Authorization (Routine) - Closed Specialty Diagnoses / Procedures Referred By Contac t Referred To Contact Diagnoses Prostate cancer metastatic to intrapelvic lymph node Gael Anderson MD [address] [place] [address] [facility] Hem Onc Office [address] [place] [phone] Referral ID Status Reason Start Date Expiration Date Visits Re quested Visits Authorized [id number] Closed 11/15/2017 11/15/2018 1 1 Encounter Details Date Type Department Care Team (Late st Contact Info) Description 11/15/2017 3:00 PM EDT Infusion Hematology Oncology at [address] [phone] Prostate cancer metastatic to intrapelvic [...] 2:00 PM EST Office Visit Dermatology at [facility] [address] [place] [address] Prisca Hughes MD [facility] [address] [place] [address] documented as of this encounter Visit Diagnoses [...] Gluteal documented in this encounter Care Teams Eyeglass Lens Cutter Relationship Specialty Start Date End Date Celio Sanders MD [address] [place] [address] PCP - General Internal Medicine 05/19/16 documented as of this encounter
--- OUTSIDE RECORDS SUMMARY | 2023-12-29 12:11 | XMS_ITS | Encounter Summary ---
Author Organization [facility] Address [facility] [place] [address] Care Team Providers Care Cook Helper Vegetable Name Role Phone Celio Sanders MD Primary Care Provider [phone] Encounter Details Date Type Department Care Team (Latest Contact Info) Description 05/12/2021 1:23 PM EST - 05/12/2021 4:00 PM EST Hospital [place] [phone] Nicky Bray MD [facility] [place] [place] [address] Discharge Disposition: Home Social History Tobacco Use [...] 2:00 PM EST Office Visit Dermatology at [facility] [address] [place] [address] Prisca Hughes MD [facility] [place] [address] documented as of this encounter Procedures Procedure Name Priority Date/Time Associated Diagnosis Comments SPECIMEN TO PATHOLOGY Routine 05/12/2021 3:10 PM EST SURGICAL PATHOLOGY REPORT Routine 05/12/2021 2:59 PM EST Colonoscopy, Diagnostic ([id number]) 05/12/2021 2:31 PM EST BRCA gene mutation positive COLONOSCOPY Routine 05/12/2021 2:18 PM EST documented in this encounter Results * Specimen to Pathology (05/12/2021 3:10 PM EST) AP Specimen 05/12/2021 3:10 PM EST 05/12/2021 3:10 PM EST Narrative [facility] - 05/12/2021 3:10 PM EST Specimen requisition ordered. ??Separate Pathology report to follow Nicky Bray MD PATHOLOGY/CYTOLOGY O RDERABLES [facility] [place] [place] [address] * Surgical Pathology Report (05/12/2021 2:59 PM EST) Final Diagnosis [id number] ? Location: 4T; EA12; A The signing pathologist has (i) examined the relevant preparation(s) for the specimen(s) and (ii) rendered or confirmed the diagnosis(es). . ?Surgical Pathology DIAGNOSIS A - Descending colon polyp 3mm, excision: - ??Tubular adenoma. CR-PX Electronically signed by: ?Eduard Martinez MD Verified: ??05/14/2021 15:49 ??Pathologist Performed at: ??-[facility] Dept. of Pathology, [place], [place] SPECIMEN(S) SUBMITTED A - Descending colon [...] labeled A1. ??pps 05/14/2021 3:49 PM EST [facility] GI Biopsy 05/12/2021 2:59 PM EST 05/12/2021 2:59 PM EST Nicky Bray MD PATHOLOGY/CYTOLOGY O STACEYERALUIS DANIEL [facility] [place] [address] * COLONOSCOPY (05/12/2021 2:18 PM EST) COLONOSCOPY [facility] Endoscopy Procedure Date: 05/12/2021 2:18 PM ? Patient Name: Nain Mckeon ? Date of : 1950 ? Age: 70 ? Order #: [id number] ? Instrument Name: [id number] ? Procedure: ? Colonoscopy Indications: ? Screening patient at increased risk: ? Family history of 1st-degree relative ? with colorectal cancer at age 60 ? years (or older) Providers: ? Nicky Bray MD, Sav Platt ? Ivon Angel, Geology Associate Referring MD: ?Celio Sanders MD Medicines: ? [...] preparation was ? evaluated using the BBPS ([place] ? Bowel Preparation Scale) with scores ? [...] Procedure Code(s): ?? --- Professional --- ? 81020, Colonoscopy, flexible; with ? removal of tumor(s), polyp(s), or ? other lesion(s) by snare technique CPT copyright 2019 [employer]. All rights reserved. The codes documented in this report are preliminary and upon section housekeeper review may be revised to meet current [...] documented in this encounter Care Teams Cook Helper Vegetable Relationship Specialty Start Date End Date Celio Sanders MD [address] [place] [address] PCP - General Internal Medicine 05/19/16 documented as of this encounter
--- OUTSIDE RECORDS SUMMARY | 2023-12-29 12:11 | XMS_ITS | Encounter Summary ---
Author Organization [facility] [place] [address] Care Team Providers Care Positive Printer Operator Name Role Phone Celio Sanders MD Primary Care Provider [phone] Reason for Visit * Reason Comments Prostate Cancer Encounter Details Date Type Department Care Team (Late st Contact Info) Description 11/15/2017 2:00 PM EDT Office Visit Hematology/Oncology at [address] [phone] Gael Anderson MD [address] [place] [phone] Prostate cancer metastatic to intrapelvic lymph node [...] Curran performed ultrasound-guided prostate biopsy that showed Rexford 4+4 disease in 2 cores and Rexford 4+3 disease in 3 additional cores. All [...] on prostate cancer. [place] initiated abiraterone 250 mg daily with low-fat [...] a retired used to work for a [employer]. He has 2 children. Lives at home with his . Social History Social History ??? Marital status: Spouse name: N/A ??? Number of children: N/A ??? Years of education: N/A Occupational History ??? 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 A - Prostatic core needle biopsy, right lateral base: ? 1. Adenocarcinoma, grade group 3, Rexford grade 4+3, ?involving 95% of the biopsy [...] medial apex: ? Adenocarcinoma, grade group 3, Rexford grade 3+4, ? involving 25% of the [...] Dermatology at [facility] [address] [place] [address] Prisca Hughes MD [facility] DR [place] [address] documented as of this encounter Visit Diagnoses Diagnosis Prostate cancer metastatic to intrapelvic lymph node documented in this encounter Care Teams Positive Printer Operator Relationship Specialty Start Date End Date Celio Sanders MD [address] [place] [address] PCP - General Internal Medicine 05/19/16 documented as of this encounter
--- OUTSIDE RECORDS SUMMARY | 2023-12-29 12:11 | XMS_ITS | Encounter Summary ---
Author Organization [facility] Address [facility] [place] [address] Care Team Providers Care Bowling Ball Patcher Name Role Phone Celio Sanders MD Primary Care Provider Encounter Details Date Type Department Care Team (Late st Contact Info) Description 10/20/2020 9:30 AM EDT Office Visit Hematology/Oncology at [address] [phone] Swathi Uriostegui APRN [address] [place] [address] DR HEMATOLOGY ONCOLOGY [place], [place] [phone] Prostate cancer metastatic to intrapelvic lymph node; [...] this encounter Progress Notes * Swathi Uriostegui, MEDICAL STAFF ASSISTANT - 10/20/2020 9:30 AM EDT Subjective: Patient [...] 5/12 cores (all on right side), T2b, [place] 8 Darlyn-neural invasion present PSA - 47.5 [...] a pathogenic variant (mutation) in BRCA2 specifically c.1929del(p.Vbj977Gtkbx15). 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 At the time of the appointment,??aTsiawas provided with a printed copy of his??test result and an informational packet addressing a positive test result. ?? The following??47??genes were evaluated for sequence changes and exonic deletions/duplications: APC, RUMA, AXIN2, BARD1, BMPR1A, BRCA1, BRCA2, BRIP1, CDH1, CDK4, CDKN2A (p14ARF), CDKN2A (l15HLV0h), CHEK2, CTNNA1, DICER1, EPCAM (EPCAM: Deletion/duplication testing [...] (VUS) in the AXIN2 and CTNNA1??genes, specifically c.1531A>T(p.Pid568Hfv) and c.515A>T (p.Uys567Lfz), were??detected. ? Interpretation: The most significant consequences [...] ?? Nain's sons live in [place] and [place]. ??They can go to the website of [...] and mailing address stay updated in the [facility] system, in order for us to reach [...] possibility in the future,??Dr. Ara Mary, a mill laborer at [facility] in [place], is willing to discuss these screening options with Nain.??Nain??can schedule an appointment with her by reaching her forging die sinker at [phone]. ?? Prostate Cancer Screening for Nain's sons ? Prostate cancer screening starting at age 40.?If either of them is found to not have the BRCA2 mutation then they can consider screening beginning at age 50 which is the recommendation for menin the general population ?? Skin cancer screening ?? Periodic skin exams ?? Colon cancer screening ?? Periodic colonoscopy screening as recommended by??Nain's mill laborer. ?. ??SUMMARY ASSESSMENT/PLAN 07/24 He was diagnosed [...] PSA. ? Soc Hx: , lives in [place], [place]. He goes to [place] from December to June. 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 Fam Hx: Father with prostate [...] summarized above.) Nain returns to the [facility] oncology clinic in [facility] today for follow up surveillance visit [...] returns to the [facility] oncology clinic in [facility] today for followup surveillance visit with [...] 2:00 PM EST Office Visit Dermatology at [facility] [address] [place] [address] Prisca Hughes MD [facility] [place] [address] documented as of this encounter Visit Diagnoses Diagnosis 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
--- OUTSIDE RECORDS SUMMARY | 2023-12-29 12:11 | XMS_ITS | Encounter Summary ---
Author Organization [place] [address] Care Team Providers Care Auto Bumper Straightener Name Role Phone Celio Sanders MD Primary Care Provider Reason for Referral * Consultation (Routine) - Closed Specialty Diagnoses / Procedures Referred By Contac t Referred To Contact Diagnoses BRCA gene mutation positive Prostate cancer metastatic to intrapelvic lymph node Vitamin D deficiency Swathi Uriostegui APRN [address] [place] [address] [place] [address] Randy Brown MD [address] [place] [address], [place] [address] Referral ID Status Reason Start Date Expiration Date V isits Requested Visits Authorized [id number] Closed Consult, Test & Treat 04/16/2021 10/13/2021 1 1 Encounter Details Date Type Department Care Team (Late st Contact Info) Description 04/13/2021 10:30 AM EST Office Visit Hematology/Oncology at [address] [phone] Swathi Uriostegui STOREHOUSE CLERK [address] [place] [address] HEMATOLOGY ONCOLOGY [place], [place] [phone] BRCA gene mutation positive; Prostate cancer metastatic [...] a pathogenic variant (mutation) in BRCA2 specifically c.1929del(p.Pyj852Adtdf15). 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 At the time of the appointment,??Tasiawas provided with a printed copy of his??test result and an informational packet addressing a positive test result. ?? The following??47??genes were evaluated for sequence changes and exonic deletions/duplications: APC, RUMA, AXIN2, BARD1, BMPR1A, BRCA1, BRCA2, BRIP1, CDH1, CDK4, CDKN2A (p14ARF), CDKN2A (i20XDX9b), CHEK2, CTNNA1, DICER1, EPCAM (EPCAM: Deletion/duplication testing [...] (VUS) in the AXIN2 and CTNNA1??genes, specifically c.1531A>T(p.Cxu051Gcg) and c.515A>T (p.Frx872Pho), were??detected. ? Interpretation: The most significant consequences [...] develop cancer. ??Having a BRCA2??mutation may make Nani??eligible for treatment with PARP inhibitors, oral medication [...] with them. ?? Nain's sons live in [place] and [place]. ??They can go to the [...] and mailing address stay updated in the [facility] system, in order for us to reach [...] possibility in the future,??Dr. Ara Mary, a mechanical and auto body car checker at [facility] in [place], is willing to discuss these screening options with Nain.??Nain??can schedule an appointment with her by reaching her litigation legal secretary at [phone]. ?? Prostate Cancer Screening for Nain's sons ? Prostate cancer screening starting at age 40.?If either of them is found to not have the BRCA2 mutation then they can consider screening beginning at age 50 which is the recommendation for menin the general population ?? Skin cancer screening ?? Periodic skin exams ?? Colon cancer screening ?? Periodic colonoscopy screening as recommended by??Nain's mechanical and auto body car checker. ?. ??SUMMARY ASSESSMENT/PLAN 07/24 He was diagnosed with prostate cancer in 2017 after presenting with hematuria and found to have an abnormal prostate gland on exam. TRUS prostate bx showed adenocarcinoma in 5/12 cores, all on the right. [place] score was 8 in two of the [...] PSA. ? Soc Hx: , lives in [place], [place]. He goes to [place] from December to June. 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, formerly worked in [employer] for a [employer] ?? Fam Hx: Father with prostate cancer [...] returns to the [facility] oncology clinic in [facility] [...] week at the [facility] [employer]. He also walks his dogs daily. His [...] Nain is in agreement to see a computer mechanic for baseline exam as his BRCA2 positive [...] returns to the [facility] oncology clinic in [facility] today for followup surveillance [...] 2:00 PM EST Office Visit Dermatology at [address] [phone] Prisca Hughes MD [facility] DR [place]OE[address] [place] [address] Scheduled Referrals Name Type Priority Associated Diagnoses [...] deficiency documented in this encounter Care Teams Auto Bumper Straightener Relationship Specialty Start Date End Date Celio Sanders MD [address] [place] [address] PCP - General Internal Medicine 05/19/16 documented as of this encounter
--- OUTSIDE RECORDS SUMMARY | 2023-12-29 12:11 | XMS_ITS | Encounter Summary ---
Author Organization [facility] Address [facility] [place] [address] Care Team Providers Care Medical Records Clerk Name Role Phone Celio Sanders MD Primary Care Provider [phone] Reason for Visit * Consultation (Routine) - Closed Specialty Diagnoses / Procedures Referred By Tess de la rosa Referred To Contact Dermatology Diagnoses BRCA gene mutation positive Prostate cancer metastatic to intrapelvic lymph node Dayana Tompkins, RN [address] [place] [address] [place] [address] [facility] Dermatology [address] [place] [address] Referral ID Status Reason Start Date Expiration Date V isits Requested Visits Authorized [id number] Closed Consult, Test & Treat 07/20/2021 07/20/2022 1 1 Encounter Details Date Type Department Care Team (Late st Contact Info) Description 10/06/2021 3:00 PM EDT Office Visit Dermatology at [facility] [address] [place] [address] Ernst Rinaldi MD [facility] DR PHOE[facility] [place] [address] Inflamed seborrheic keratosis; SK (seborrheic [...] 1 year for FSE []Note routed to law secretary [x]Recall placed in scheduling system []Appointment scheduled at checkout Scribe attestation: Yordy Wesley MA has performed the documentation for this encounter in the presence of and acting as a scribe for Ernst Rinaldi MD. I performed the above scribed service and agree with the accuracy of the documentation in this encounter. Reviewed and signed by: Ernst Rinaldi MD Dermatology [facility] Patient seen and evaluated with staff welding machine operator/tender: Patsy Ely MD Dermatology [facility] * Patsy Ely MD - 10/06/2021 3:00 [...] 2:00 PM EST Office Visit Dermatology at [address] [phone] Prisca Hughes MD [facility] DR PHOEBE IBARRA[place] [address] Scheduled Referrals Name Type Priority Associated Diagnoses [...] unspecified documented in this encounter Care Teams Medical Records Clerk Relationship Specialty Start Date End Date Celio Sanders MD [address] [place] [address] PCP - General Internal Medicine 05/19/16 documented as of this encounter
--- OUTSIDE RECORDS SUMMARY | 2023-12-29 12:11 | XMS_ITS | Encounter Summary ---
Author Organization [facility] Address [facility] [place] [address] Care Team Providers Care Rv Body Mechanic Name Role Phone Celio Sanders MD Primary Care Provider Encounter Details Date Type Department Care Team (Late st Contact Info) Description 04/04/2020 2:30 PM EST Office Visit Hematology/Oncology at [address] [phone] Remy Barillas MD [facility] [place] [address] Swathi Uriostegui APRN [address] [place] [address] DR HEMATOLOGY ONCOLOGY [place], [place] [id number] Prostate cancer metastatic to intrapelvic lymph node [...] this encounter Progress Notes * Swathi Uriostegui, MANAGER OFFICE - 04/04/2020 2:30 PM EST Subjective: Patient [...] a pathogenic variant (mutation) in BRCA2 specifically c.1929del(p.[id number]). 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 At the time of the appointment,??Tasiawas provided with a printed copy of his??test result and an informational packet addressing a positive test result. ?? The following??47??genes were evaluated for sequence changes and exonic deletions/duplications: APC, RUMA, AXIN2, BARD1, BMPR1A, BRCA1, BRCA2, BRIP1, CDH1, CDK4, CDKN2A (p14ARF), CDKN2A (m77EWY3g), CHEK2, CTNNA1, DICER1, EPCAM (EPCAM: Deletion/duplication testing [...] (VUS) in the AXIN2 and CTNNA1??genes, specifically c.1531A>T(p.Onn577Kne) and c.515A>T (p.Pnc832Xfx), were??detected. ? Interpretation: The most significant consequences [...] ?? Nain's sons live in [place] and [place]. ??They can go to the website of [...] and mailing address stay updated in the [facility] system, in order for us to [...] possibility in the future,??Dr. Ara Mary, a bench precision assembler at [facility] in [place], is willing to discuss these screening options with Nain.??Nain??can schedule an appointment with her by reaching her marketing secretary at [phone]. ?? Prostate Cancer Screening for Nain's sons ? Prostate cancer screening starting at age 40.?If either of them is found to not have the BRCA2 mutation then they can consider screening beginning at age 50 which is the recommendation for menin the general population ?? Skin cancer screening ?? Periodic skin exams ?? Colon cancer screening ?? Periodic colonoscopy screening as recommended by??Nain's bench precision assembler. ?. ??SUMMARY ASSESSMENT/PLAN 07/24 He was diagnosed with prostate cancer in 2016 after presenting with hematuria and found to have an abnormal prostate gland on exam. TRUS prostate bx showed adenocarcinoma in 5/12 cores, all on the right. Wheaton score was 8 in two of the [...] PSA. ? Soc Hx: , lives in [place], [place]. He goes to [place] from December to June. 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 Fam Hx: Father with prostate cancer [...] returns to the [facility] oncology clinic in [facility] today for follow up surveillance visit [...] internal iliac LN. Nain returns to the [facility] onc[facility] clinic in [facility] today for followup surveillance visit with [...] 2:00 PM EST Office Visit Dermatology at [facility] [address] [place] [address] Prisca Hughes MD [facility] DR [place] [address] documented as of this encounter Visit Diagnoses Diagnosis Prostate cancer metastatic to intrapelvic lymph node documented in this encounter Care Teams Rv Body Mechanic Relationship Specialty Start Date End Date Celio Sanders MD [address] [place] [address] PCP - General Internal Medicine 05/19/16 documented as of this encounter
--- OUTSIDE RECORDS SUMMARY | 2023-12-29 12:11 | XMS_ITS | Encounter Summary ---
Author Organization [facility] Address [facility] [place] [address] Care Team Providers Care Social Worker Psychiatric Name Role Phone Celio Sanders MD Primary Care Provider [phone] Encounter Details Date Type Department Care Team (Late st Contact Info) Description 05/04/2019 11:00 AM EST Office Visit Hematology/Oncology at [address] [phone] Remy Barillas MD [facility] [place] [address] Dayana Tompkins, RN Malignant neoplasm of prostate [...] 5/12 cores (all on right side), T2b, Naoma 8 Darlyn-neural invasion present PSA - 47.5 [...] negative 9. Genetic testing 03/2018 - Result: [facility] Common Hereditary Cancers Panel showed that Nain carries a pathogenic variant (mutation) in BRCA2 specifically c.1929del(p.[id number]). This result is consistent with a diagnosis [...] BRCA2, BRIP1, CDH1, CDK4, CDKN2A (p14ARF), CDKN2A (q92EMD0u), CHEK2, CTNNA1, DICER1, EPCAM (EPCAM: Deletion/duplication testing [...] the AXIN2 and CTNNA1 genes, specifically c.1531A>T (p.Yxm029Wkx) and c.515A>T (p.Daa455Qmu), were detected. ? Interpretation: The most significant consequences of carrying a pathogenic variant in BRCA2 are increased risks forbreast cancer and ovarian cancer in women. For men, the most significant consequence is for prostate cancer so this finding is felt to be related to Nancies cancer. Other cancers associated with YAZI0ukd breast cancer in men, pancreatic, and melanoma. [...] ?? Nain's sons live in [place] and [place]. They can go to the website of [...] the gene with no increased cancer risks. [facility] is continually collecting and analyzing their data, [...] and mailing address stay updated in the [facility] system, in order for us to reach [...] in the future, Dr. Ara Mary, a upholstery tech at [facility] in [place], is willing to discuss these screening options with Nain. Nain can schedule an appointment with her by reaching her marketing secretary at [phone]. ?? Prostate Cancer Screening for Nain's sons [...] Periodic colonoscopy screening as recommended by Nain's upholstery tech. ?? HPI Mr. Mckeon is seen in [...] urinate lately. Soc Hx: , lives in [place], [place]. He goes to [place] from December to June. 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 Naoma score was 8 in two of the [...] Visit Dermatology at [facility] [address] [place] [address] Prisca Hughes MD [facility] DR PHOEBE IBAR[place] [address] documented as of this encounter Visit Diagnoses Diagnosis Malignant neoplasm of prostate documented in this encounter Care Teams Social Worker Psychiatric Relationship Specialty Start Date End Date Celio Sanders MD [address] [place] [address] PCP - General Internal Medicine 05/19/16 documented as of this encounter
--- OUTSIDE RECORDS SUMMARY | 2023-12-29 12:11 | XMS_ITS | Encounter Summary ---
[place] [address] Care Team Providers Care Vacuum Tank Tender Name Role Phone Celio Sanders MD Primary Care Provider [phone] Reason for Visit * Reason Comments Injections Lupron * Treatment/Therapy Plan Authorization (Routine) - Closed Specialty Diagnoses / Procedures Referred By Contac t Referred To Contact Diagnoses Prostate cancer metastatic to intrapelvic lymph node Gael Anderson MD [address] [place] [address] [facility] Hem Onc Office [address] [place] [phone] Referral ID Status Reason Start Date Expiration Date Visits Re quested Visits Authorized [id number] Closed 11/15/2017 11/15/2018 1 1 Encounter Details Date Type Department Care Team (Late st Contact Info) Description 11/16/2018 2:30 PM EDT Infusion Hematology Oncology at [address] [phone] Prostate cancer metastatic to intrapelvic [...] 2:00 PM EST Office Visit Dermatology at [place] [address] [place] [address] Prisca Hughes MD [facility] DR [place] [address] documented as of this encounter Visit Diagnoses [...] Gluteal documented in this encounter Care Teams Vacuum Tank Tender Relationship Specialty Start Date End Date Celio Sanders MD [address] [place] [address] PCP - General Internal Medicine 05/19/16 documented as of this encounter
--- OUTSIDE RECORDS SUMMARY | 2023-12-29 12:11 | XMS_ITS | Encounter Summary ---
Author Organization [facility] [place] [address] Care Team Providers Care Trucking Manager Name Role Phone Celio Sanders MD Primary Care Provider Reason for Visit * Reason Comments Prostate Cancer Encounter Details Date Type Department Care Team (Late st Contact Info) Description 08/23/2017 3:00 PM EDT Office Visit Hematology/Oncology at [address] [phone] Gael Anderson MD [address] [place] [phone] Malignant neoplasm of prostate Social History Tobacco [...] on prostate cancer. [place] initiated abiraterone 250 mg daily with low-fat [...] 12 weeks since his last injection in [place] and is due a Lupron shot today. [...] of education: N/A Occupational History ??? 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 Smoking status: [...] for this visit. Pathology: 05/17/16 Extradepartmental number: ??[id number]; collection date, 04/27/2016. A - Prostatic core needle biopsy, right lateral base: ? 1. Adenocarcinoma, grade group 3, Odell grade 4+3, ?involving 95% of the biopsy core. ? 2. Perineural invasion identified. B - Prostatic core needle biopsy, right medial base: ? 1. Adenocarcinoma, grade group 3, Andre grade 4+3, ?involving 95% of the biopsy core. ? 2. Perineural invasion identified. C - Prostatic core needle biopsy, right mid lateral: ? Adenocarcinoma, grade group 4, Odell grade 4+4, ? involving 90% of the biopsy core. D - Prostatic core needle biopsy, right mid medial: ? 1. Adenocarcinoma, grade group 4, Odell grade 4+4, ?involving 40% of the biopsy core. ? 2. Perineural invasion identified. E - Prostatic core needle biopsy, right lateral apex: ? Benign prostatic tissue. F - Prostatic core needle biopsy, right medial apex: ? Adenocarcinoma, grade group 3, Odell grade 3+4, ? involving 25% of the [...] 2:00 PM EST Office Visit Dermatology at [address] [place] [address] Prisca Hughes MD [facility] [address] [place] [address] documented as of this encounter Visit Diagnoses Diagnosis Malignant neoplasm of prostate documented in this encounter Care Teams Trucking Manager Relationship Specialty Start Date End Date Celio Sanders MD [address] [place] [address] PCP - General Internal Medicine 05/19/16 documented as of this encounter
--- OUTSIDE RECORDS SUMMARY | 2023-12-29 12:11 | XMS_ITS | Encounter Summary ---
Author Organization [facility] [place] [address] Care Team Providers Care Rn Clinical Coordinator Name Role Phone Celio Sanders MD Primary Care Provider [phone] Encounter Details Date Type Department Care Team (Latest Contact Info) Description 03/28/2019 2:09 PM EST - 03/28/2019 11:59 PM EST Hospital Encounter Hematology [place] [phone] Prostate cancer metastatic to intrapelvic lymph node; [...] EST Office Visit Dermatology at [facility] [address] [place] [address] Prisca Hughes MD [facility] [address] [place] [address] documented as of this encounter Procedures Procedure [...] 2:42 PM EST) Neutrophil % 51.5 % [facility] Neutrophil Absolute 3.04 1.70 - 6.10 x10(3)/[facility] Lymph % 34.3 % [facility] Lymphocytes Abs 2.0 0.9 - 3.2 x10(3)/[facility] Monocyte % 9.3 % [facility] Monocyte Abs 0.6 0.3 - 0.9 x10(3)/[facility] Eos % 3.9 % [facility] Eosinophils Abs 0.2 0.0 - 0.4 x10(3)/[facility] Basophil % 0.7 % [facility] Baso Absolute 0.0 0.0 - 0.1 x10(3)/[facility] Immature Gran % 0.30 % [facility] Comment: Immature granulocytes(IG's)percentage and absolute count will include metamyelocytes, myelocytes, and promyelocytes. Blood smears from CBCs yielding IG's will be scanned manually for concordance. If this scan disagrees with the automated IG or if promyelocytes are noted, a manual differential will be performed. Immature Gran Absolute 0.02 0.00 - 0.04 x10(3)/[facility] Blood specimen (specimen) 03/28/2019 2:42 PM EST 03/28/2019 2:55 PM EST Narrative Resulting Agency Comment Spec In Lab Remy Barillas MD HEMATOLOGY ORDERABLE S [facility] [place] [address] * (ABNORMAL) Hemogram (03/28/2019 2:42 PM EST) White Blood Cell 5.9 4.0 - 9.5 x10(3)/ L [facility] Red Blood Cell 4.09(L) 4.58 - 5.54 x10(6)/ L [facility] Hemoglobin 13.0(L) 13.7 - 16.5 gm/dL [facility] Hematocrit 38.7(L) 40.5 - 48.5 % [facility] Mean Cell Volume 94.6(H) 82.9 - 93.1 fL [facility] Mean Cell Hemoglobin 31.8 27.5 - 32.1 pg [facility] Mean Cell Hemoglobin Concentration 33.6 32.0 - 35.7 gm/dL [facility] Platelet 226 145 - 357 x10(3)/mc L [facility] RDW Standard Deviation 43.9 36.0 - 45.0 fL [facility] RDW coefficient of variation 12.7 11.4 - 13.8 % [facility] Mean Platelet Volume 9.3 7.6 - 12.9 fL [facility] NRBC% auto 0.0 % [facility] NRBC Absolute 0.000 0.000 - 0.000 x10(3)/mc L [facility] Blood specimen (specimen) 03/28/2019 2:42 PM EST 03/28/2019 2:55 PM EST Narrative Resulting Agency Comment Spec In Lab Remy Barillas MD HEMATOLOGY ORDERABLE S [facility] [place] [address] * Comprehensive metabolic panel (non-fasting) (03/28/2019 2:42 PM EST) Glucose 119 65 - 199 mg/dL [facility] Comment:Diabetes: >=200 mg/d L plus symptoms Blood Urea Nitrogen 19 10 - 20 mg/dL [facility] Creatinine 1.00 0.80 - 1.50 mg/dL [facility] Sodium 143 135 - 145 mmol/L [facility] Potassium 4.1 3.5 - 5.0 mmol/L [facility] Comment: Please note: ??Patients with WBC >100,000 may have falsely elevated Potassium levels. ??For accurate Potassium quantification in these patients send serum separator tube (gold top) for subsequent determinations. ??Contact the Clinical Chemistry Laboratory if there are any questions. Chloride 105 98 - 107 mmol/L [facility] Carbon Dioxide 29 22 - 31 mmol/L [facility] Anion Gap 9 5 - 15 mmol/L [facility] Calcium 9.0 8.5 - 10.5 mg/dL [facility] Protein, Total 7.2 6.1 - 8.0 gm/dL [facility] Albumin 4.4 3.2 - 5.2 gm/dL [facility] Aspartate Aminotransferase 22 0 - 39 unit/L [facility] Alanine Aminotransferase 26 0 - 55 unit/L [facility] Alkaline Phosphatase 75 40 - 130 unit/L [facility] Bilirubin, Total 0.2 0.2 - 1.3 mg/dL [facility] Est Glomerular Filtration Rate 76 >=60 mL/min/1. 73 m?? [facility] Comment: The eGFR was calculated using the CKD-EPI equation. As with all creatinine based estimates of kidney function, eGFR values calculated with the CKD-EPI equation are not accurate in patients with acute kidney failure, extremes of body mass or the acutely ill. http://[employer]/DHnkf eGFR 88 >=60 mL/min/1. 73 m?? [facility] Comment: The eGFR was calculated using the CKD-EPI equation. As with all creatinine based estimates of kidney function, eGFR values calculated with the CKD-EPI equation are not accurate in patients with acute kidney failure, extremes of body mass or the acutely ill. http://[employer]/DHMCnkf Blood specimen (specimen) 03/28/2019 2:42 PM EST 03/28/2019 2:55 PM EST Narrative Resulting Agency Comment Spec In Lab Remy Barillas MD CHEMISTRY ORDERABLES [facility] [place] [address] * PSA (Ultrasensitive) (03/28/2019 2:42 PM EST) Prostate Specific Antigen (Ultrasensitiv e) <0.01 0.00 - 4.00 ng/mL [facility] Blood specimen (specimen) 03/28/2019 2:42 PM EST 03/28/2019 2:55 PM EST Narrative Resulting Agency Comment Spec In Lab Remy Barillas MD CHEMISTRY ORDERABLES Performing Organization Address [facility] Co de Phone Number [facility] [place] [address] * Research Venipuncture (03/28/2019 2:42 PM EST) Research Venipuncture Drawn [facility] Blood specimen (specimen) 03/28/2019 2:42 PM EST 03/28/2019 3:44 PM EST Narrative Resulting Agency Comment Spec In Lab Tre Walker MD CHEMISTRY ORDERABLES Performing Organization Address [facility] Co de Phone Number [facility] [place] [address] documented in this encounter Visit Diagnoses Diagnosis Prostate cancer metastatic to intrapelvic lymph node Malignant neoplasm of prostate documented in this encounter Care Teams Rn Clinical Coordinator Relationship Specialty Start Date End Date Celio Sanders MD [address] [place] [address] PCP - General Internal Medicine 05/19/16 documented as of this encounter
--- OUTSIDE RECORDS SUMMARY | 2023-12-29 12:11 | XMS_ITS | Encounter Summary ---
Author Organization Formerly [facility] Address [facility] [place] [address] Care Team Providers Care Swimming Pool Maintenance Supervisor Name Role Phone Celio Sanders MD Primary Care Provider Encounter Details Date Type Department Care Team (Late st Contact Info) Description 01/16/2021 11:00 AM EST Office Visit Hematology/Oncology at [address] [phone] Remy Barillas MD [facility] [place] [address] Swathi Uriostegui APRN [address] [place] [address] DR HEMATOLOGY ONCOLOGY [place], [place] [id number] Malignant neoplasm of prostate; Vitamin D deficiency [...] negative 9. 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 This result is consistent with a diagnosis [...] BRCA2, BRIP1, CDH1, CDK4, CDKN2A (p14ARF), CDKN2A (f31XFG8q), CHEK2, CTNNA1, DICER1, EPCAM (EPCAM: Deletion/duplication testing [...] the AXIN2 and CTNNA1 genes, specifically c.1531A>T (p.Imw004Off) and c.515A>T (p.Fft646Ttq), were detected. ? Interpretation: The most significant consequences of carrying a pathogenic variant in BRCA2 are increased risks forbreast cancer and ovarian cancer in women. For men, the most significant consequence is for prostate cancer so this finding is felt to be related to Nain's cancer. Other cancers associated with VJIT3rul breast cancer in men, pancreatic, and melanoma. [...] family this was likely inherited from. Unfortunately Nian does not have contact with his extended family so is unable to share this information with them. ?? Nain's sons live in [place] and [place]. They can go to the website [...] the gene with no increased cancer risks. [employer] is continually collecting and analyzing their data, [...] and mailing address stay updated in the [facility] system, in order for us [...] in the future, Dr. Ara Mary, a carbon paper coating supervisor at [facility] in [place], is willing to discuss these screening options with Nain. Nain can schedule an appointment with her by reaching her road machine operator at [phone]. ?? Prostate Cancer Screening for Nain's sons [...] Periodic colonoscopy screening as recommended by Nain's carbon paper coating supervisor. ?? HPI Nain Mckeon is seen in [...] saw him. Soc Hx: , lives in [place], [place]. He goes to [place] from December to June. 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 [place] score was 8 in two of the [...] 2:00 PM EST Office Visit Dermatology at [place] [address] [place] [address] Prisca Hughes MD [facility] [address] [facility] [address] documented as of this encounter Visit Diagnoses Diagnosis Malignant neoplasm of prostate Vitamin D deficiency Unspecified vitamin D deficiency documented in this encounter Care Teams Swimming Pool Maintenance Supervisor Relationship Specialty Start Date End Date Celio Sanders MD [address] [place] [address] PCP - General Internal Medicine 05/19/16 documented as of this encounter
--- OUTSIDE RECORDS SUMMARY | 2023-12-29 12:12 | XMS_ITS | Encounter Summary ---
Author Organization [facility] [place] [address] Care Team Providers Care Group Contract Analyst Name Role Phone Celio Sanders MD Primary Care Provider [phone] Encounter Details Date Type Department Care Team (Late st Contact Info) Description 07/29/2016 Telephone [place] [phone] Nicky Marcelo Social History Tobacco Use Types [...] 2:00 PM EST Office Visit Dermatology at [facility] [address] [place] [address] Prisca Hughes MD [facility] [address] [facility] [address] documented as of this encounter Visit Diagnoses Not on filedocumented in this encounter Care Teams Group Contract Analyst Relationship Specialty Start Date End Date Celio Sanders MD [address] [place] [address] PCP - General Internal Medicine 05/19/16 documented as of this encounter
--- OUTSIDE RECORDS SUMMARY | 2023-12-29 12:12 | XMS_ITS | Encounter Summary ---
Author Organization [facility] Address [facility] [place] [address] Care Team Providers Care Lye Boiler Name Role Phone Celio Sanders MD Primary Care Provider [phone] Reason for Visit * Reason Comments Follow-up Encounter Details Date Type Department Care Team (Late st Contact Info) Description 07/22/2016 11:00 AM EDT Office Visit [place] [address] Matthew Pelaez MD [facility] [place] [address] Neoplasm of prostate regional lymph node staging [...] Prescriptions to get filled and things to picking table worker from 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 He is planned for EBRT along with [...] [facility] [address] [place] [address] Prisca Hughes MD [facility] DR PHOE[facility] IBAR[place] [address] documented as of this encounter Visit Diagnoses Diagnosis 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 documented in this encounter Care Teams Lye Boiler Relationship Specialty Start Date End Date Celio Sanders MD [address] [place] [address] PCP - General Internal Medicine 05/19/16 documented as of this encounter
--- OUTSIDE RECORDS SUMMARY | 2023-12-29 12:12 | XMS_ITS | Encounter Summary ---
Author Organization [facility] [place] [address] Care Team Providers Care Community Director Name Role Phone Celio Sanders MD Primary Care Provider [phone] Reason for Referral * Consultation (Routine) - Closed Specialty Diagnoses / Procedures Referred By Contkulwant de la rosa Referred To Contact Hematology and Oncology Diagnoses Cancer of prostate with high recurrence risk (stage T3a or [place] 8-10 or PSA > 20) Ronnie Vazquez MD [address] [place] [address] [place] [address] [facility] Hem Onc Office [address] [place] [phone] Referral ID Status Reason Start Date Expiration Date V isits Requested Visits Authorized [id number] Closed Consult, Test & Treat 10/07/2016 10/07/2017 1 1 Encounter Details Date Type Department Care Team (Late st Contact Info) Description 10/07/2016 10:45 AM EDT Office Visit Radiation Oncology at [address] [phone] Ronnie Vazquez MD [address] [place] [address] [place] [address] Cancer of prostate with high recurrence risk (stage T3a or [place] 8-10 or PSA > 20) Social History [...] Note 10/07/16 Ronnie Vazquez MD Radiation Oncology [facility] [phone] (paging automatic oven operator) PATIENT IDENTIFICATION NAME: Nain Mckeon DATE [...] 2:00 PM EST Office Visit Dermatology at [facility] [address] [place] [address] Prisca Hughes MD [facility] DR [facility] [place] [address] Scheduled Referrals Name Type Priority Associated Diagnoses Order Schedule Referral to Hematology and Oncology Outpatient Referral Routine Cancer of prostate with high recurrence risk (stage T3a or [place] 8-10 or PSA > 20) Ordered: 10/07/2016 documented as of this encounter Visit Diagnoses Diagnosis Cancer of prostate with high recurrence risk (stage T3a or [place] 8-10 or PSA > 20) Malignant neoplasm of prostate documented in this encounter Care Teams Community Director Relationship Specialty Start Date End Date Celio Sanders MD [address] [place] [address] PCP - General Internal Medicine 05/19/16 documented as of this encounter
--- OUTSIDE RECORDS SUMMARY | 2023-12-29 12:12 | XMS_ITS | Encounter Summary ---
Author Organization [facility] Address [facility] [place] [address] Care Team Providers Care Tour Driver Name Role Phone Celio Sanders MD Primary Care Provider [phone] Encounter Details Date Type Department Care Team (Late Contact Info) Description 06/30/2017 Orders Only Hematology/Oncology at [address] [phone] Harjinder Snyder MD [facility] DR HEMATOLOGY [place] [address] Neoplasm of prostate regional lymph node staging [...] at [facility] [address] [place] [address] Prisca Hughes MD [facility] DR PHOE[facility] [place] [address] documented as of this encounter Visit Diagnoses Diagnosis 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 Malignant neoplasm of prostate documented in this encounter Care Teams Tour Driver Relationship Specialty Start Date End Date Celio Sanders MD [address] [place] [address] PCP - General Internal Medicine 05/19/16 documented as of this encounter
--- OUTSIDE RECORDS SUMMARY | 2023-12-29 12:12 | XMS_ITS | Encounter Summary ---
Author [facility] [place] [address] Care Team Providers Care Clearance Coordinator Name Role Phone Celio Sanders MD Primary Care Provider [phone] Reason for Visit * Reason Comments On Treatment Visit Encounter Details Date Type Department Care Team (Late st Contact Info) Description 08/26/2016 7:45 AM EDT Office Visit [place] [phone] Ronnie Vazquez MD [address] [place] [address] [place] [address] Neoplasm of prostate regional lymph node staging [...] Note 08/26/16 Ronnie Vazquez MD Radiation Oncology [facility] [phone] (paging acetylene torch operator) PATIENT IDENTIFICATION NAME: Nain Mckeon DATE [...] 2:00 PM EST Office Visit Dermatology at [facility] [address] [facility] [place] [address] Prisca Hughes MD [facility] [address] [place] [address] documented as of this encounter Visit Diagnoses Diagnosis 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 Malignant neoplasm of prostate Cancer of prostate with high recurrence risk (stage T3a or [place] 8-10 or PSA > 20) Malignant neoplasm [...] Gluteal documented in this encounter Care Teams Clearance Coordinator Relationship Specialty Start Date End Date Celio Sanders MD [address] [place] [address] PCP - General Internal Medicine 05/19/16 documented as of this encounter
--- OUTSIDE RECORDS SUMMARY | 2023-12-29 12:12 | XMS_ITS | Encounter Summary ---
Author Organization [facility] [place] [address] Care Team Providers Care Storeroom Keeper Name Role Phone Celio Sanders MD Primary Care Provider [phone] Reason for Visit * Reason Onset Date Comments Lorna 07/27/2017 Encounter Details Date Type Department Care Team (Late st Contact Info) Description 07/27/2017 Telephone Psychiatry [place] [phone] Angela Bowens RN Lorna Social History Tobacco [...] treated for metastatic prostate cancer at the [facility] in [facility]. He reports that he has been in penitentiary for 2 days. This was clarified to be voicemail penitentiary for 2 days. In talking with the [...] at [address] [place] [address] Prisca Hughes MD [facility] DR [place] [address] documented as of this encounter Visit Diagnoses Not on filedocumented in this encounter Care Teams Storeroom Keeper Relationship Specialty Start Date End Date Celio Sanders MD [address] [place] [address] PCP - General Internal Medicine 05/19/16 documented as of this encounter
--- OUTSIDE RECORDS SUMMARY | 2023-12-29 12:12 | XMS_ITS | Encounter Summary ---
Author Organization [facility] [place] [address] Care Team Providers Care Drum Saw Operator Name Role Phone Celio Sanders MD Primary Care Provider [phone] Reason for Referral * Diagnostic Test (Routine) - Closed Specialty Diagnoses / Procedures Referred By Contac t Referred To Contact Radiology Diagnoses 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 Procedures MRI Pelvis Soft Tissue (Gi Gu Nonfarm Animal Caretaker)WO Contrast Matthew Pelaez MD [facility] [place] [address] [place] [address] Referral ID Status Reason Start Date Expiration Date V isits Requested Visits Authorized [id number] Closed Specialty Service Requested 07/09/2016 07/09/2017 1 1 Encounter Details Date Type Department Care Team (Late st Contact Info) Description 07/09/2016 Orders Only [place] [address] Matthew Pelaez MD [facility] [place] [address] Neoplasm of prostate regional lymph node staging [...] at [facility] [address] [place] [address] Prisca Hughes MD [facility] DR PHOE[facility] MUHAMM[place] [address] documented as of this encounter Results * MRI Pelvis Soft Tissue (Gi Gu Nonfarm Animal Caretaker)WO Contrast (08/13/2016 5:02 PM EDT) Anatomical Region [...] EDT EXAMINATION: MRI PELVIS SOFT TISSUE (GI CASTING WHEEL OPERATOR) WO CONTRAST CLINICAL HISTORY: Prostate cancer for [...] 08/15/2016 EXAMINATION: MRI PELVIS SOFT TISSUE (GI CASTING WHEEL OPERATOR) WO CONTRAST CLINICAL HISTORY: Prostate cancer for [...] nodes documented in this encounter Care Teams Drum Saw Operator Relationship Specialty Start Date End Date Celio Sanders MD [address] [place] [address] PCP - General Internal Medicine 05/19/16 documented as of this encounter
--- OUTSIDE RECORDS SUMMARY | 2023-12-29 12:12 | XMS_ITS | Encounter Summary ---
Author Organization [facility] [place] [address] Care Team Providers Care Sample Grinder Name Role Phone Celio Sanders MD Primary Care Provider Encounter Details Date Type Department Care Team (Late st Contact Info) Description 09/30/2016 12:30 PM EDT Office Visit Radiation Oncology at [address] [phone] Rnonie Vazquez MD [address] [place] [address] DR RADIATION ONCOLOGY [place], [place] [phone] Neoplasm of prostate regional lymph node staging [...] Note 09/30/16 Ronnie Vazquez MD Radiation Oncology [facility] [phone] (paging dip lube operator) PATIENT IDENTIFICATION NAME: Nain Mckeon DATE OF : 1950 ONCOLOGIC SUMMARY: Nain Mckoen is a 66 [...] Visit Dermatology at [facility] [address] [phone] Prisca Hughes MD [facility] DR [facility] [facility]AMM[place] [address] documented as of this encounter Visit Diagnoses Diagnosis 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 documented in this encounter Care Teams Sample Grinder Relationship Specialty Start Date End Date Celio Sanders MD [address] [place] [address] PCP - General Internal Medicine 05/19/16 documented as of this encounter
--- OUTSIDE RECORDS SUMMARY | 2023-12-29 12:12 | XMS_ITS | Encounter Summary ---
Author Organization [facility] [place] [address] Care Team Providers Care Lumber Salvager Name Role Phone Celio Sanders MD Primary Care Provider [phone] Encounter Details Date Type Department Care Team (Late st Contact Info) Description 07/22/2016 9:40 AM EDT Clinical Support Same Day at [facility] [place] [phone] Social History Tobacco Use Types Packs/Day Years [...] 2:00 PM EST Office Visit Dermatology at [place] [address] [place] [address] Prisca Hughes MD [facility] [address] [place] [address] documented as of this encounter Visit Diagnoses Not on filedocumented in this encounter Care Teams Lumber Salvager Relationship Specialty Start Date End Date Celio Sanders MD [address] [place] [address] PCP - General Internal Medicine 05/19/16 documented as of this encounter
--- OUTSIDE RECORDS SUMMARY | 2023-12-29 12:12 | XMS_ITS | Encounter Summary ---
Author Organization [facility] [place] [address] Care Team Providers Care First Aid Nurse Name Role Phone Celio Sanders MD Primary Care Provider [phone] Reason for Visit * Reason Comments On Treatment Visit Encounter Details Date Type Department Care Team (Late st Contact Info) Description 09/10/2016 7:30 AM EDT Office Visit [place] [phone] Ronnie Vazquez MD [address] [place] [address] DR RADIATION ONCOLOGY [place], [place] [address] Cancer of prostate with high recurrence risk (stage T3a or [place] 8-10 or PSA > 20) Social History [...] Ronnie Vazquez MD Radiation Oncology [facility] [phone] (paging shaving machine operator) PATIENT IDENTIFICATION NAME: Nain Mckeon [...] 2:00 PM EST Office Visit Dermatology at [place] [address] [place] [address] [facility] [address] [place] [address] documented as of this encounter Visit Diagnoses Diagnosis Cancer of prostate with high recurrence risk (stage T3a or [place] 8-10 or PSA > 20) Malignant neoplasm of prostate documented in this encounter Care Teams First Aid Nurse Relationship Specialty Start Date End Date Celio Sanders MD [address] [place] [address] PCP - General Internal Medicine 05/19/16 documented as of this encounter
--- OUTSIDE RECORDS SUMMARY | 2023-12-29 12:12 | XMS_ITS | Encounter Summary ---
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 Please note: ??Patients with WBC >100,000 may have falsely elevated Potassium levels. ??For accurate Potassium quantification in these patients send serum separator tube (gold top) for subsequent determinations. ??Contact the Clinical Chemistry Laboratory if there are any questions. Chloride 100 98 - 107 mmol/L [facility] Carbon Dioxide 31 22 - 31 mmol/L [facility] Anion Gap 12 5 - 15 mmol/L [facility] Calcium 9.5 8.5 - 10.5 mg/dL [facility] Est Glomerular Filtration Rate >60 >=60 [facility] Comment: The reported eGFR should be multiplied by 1.2 for patients. The MDRD is not an appropriate measure of renal function for patients with body mass extremes or in patients with acute kidney failure. 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
--- OUTSIDE RECORDS SUMMARY | 2023-12-29 12:12 | XMS_ITS | Encounter Summary ---
Author Organization [facility] [place] [address] Care Team Providers Care Lath Hand Name Role Phone Celio Sanders MD Primary Care Provider [phone] Reason for Visit * Reason Comments Injections Lupron Encounter Details Date Type Department Care Team (Late st Contact Info) Description 11/18/2016 10:30 AM EDT Infusion Hematology Oncology at [address] [phone] Neoplasm of prostate regional lymph node staging [...] Dermatology at [facility] [address] [place] [address] Prisca Hughes MD [facility] [place] [address] documented as of this encounter Procedures Procedure [...] Gluteal documented in this encounter Care Teams Lath Hand Relationship Specialty Start Date End Date Celio Sanders MD [address] [place] [address] PCP - General Internal Medicine 05/19/16 documented as of this encounter
--- OUTSIDE RECORDS SUMMARY | 2023-12-29 12:12 | XMS_ITS | Encounter Summary ---
Author Organization [facility] Address [facility] [place] [address] Care Team Providers Care Functional Mental Disability Teacher Name Role Phone Celio Sanders MD Primary Care Provider [phone] Reason for Visit * Reason Onset Date Comments Medication Refill 09/24/2016 Encounter Details Date Type Department Care Team (Late Contact Info) Description 09/24/2016 Refill Radiation Oncology at [address] [phone] Alta Rowland, RN Malignant neoplasm [...] Dermatology at [facility] [address] [place] [address] Prisca Hughes MD [facility] [address] [place] [address] documented as of this encounter Visit Diagnoses Diagnosis Malignant neoplasm of prostate- Primary documented in this encounter Care Teams Functional Mental Disability Teacher Relationship Specialty Start Date End Date Celio Sanders MD [address] [place] [address] PCP - General Internal Medicine 05/19/16 documented as of this encounter
--- OUTSIDE RECORDS SUMMARY | 2023-12-29 12:12 | XMS_ITS | Encounter Summary ---
Author Organization [facility] [place] [place] [address] Care Team Providers Care Respiratory Care Assistant Name Role Phone Celio Sanders MD Primary Care Provider [phone] Reason for Visit * Reason Comments Simulation Encounter Details Date Type Department Care Team (Late st Contact Info) Description 08/13/2016 12:00 PM EDT Ancillary Appointment [place] [phone] Ronnie Vazquez MD [address] [place] [address] [place] [address] Social History Tobacco Use Types Packs/Day Years [...] Note for External Beam Radiation Treatment Planning [facility] Laith Mckeon is a 65 y.o. year [...] likelihood of any short termside effects or dedicated intermodal truck driver complications of therapy. I anticipate his prescription [...] 2:00 PM EST Office Visit Dermatology at [place] [address] [place] [address] [facility] [address] [address] documented as of this encounter Visit Diagnoses Not on filedocumented in this encounter Care Teams Respiratory Care Assistant Relationship Specialty Start Date End Date Celio Sanders MD [address] [place] [address] PCP - General Internal Medicine 05/19/16 documented as of this encounter
--- OUTSIDE RECORDS SUMMARY | 2023-12-29 12:12 | XMS_ITS | Encounter Summary ---
Author Organization [facility] [place] [address] Care Team Providers Care Manager Registration Name Role Phone Celio Sanders MD Primary Care Provider [phone] Encounter Details Date Type Department Care Team (Late st Contact Info) Description 10/21/2016 4:45 PM EDT Office Visit Radiation Oncology at [address] [phone] Ronnie Vazquez MD [address] [place] [address] DR RADIATION ONCOLOGY [place], [place] [phone] Cancer of prostate with high recurrence risk (stage T3a or [place] 8-10 or PSA > 20); Neoplasm of [...] Note 10/21/16 Ronnie Vazquez MD Radiation Oncology [facility] [phone] (paging adzing and boring machine operator) PATIENT IDENTIFICATION NAME: Nain Mckeon [...] Pain score today is 0/10. Medications 10/21/16 9974 Medication Sig Taking? ondansetron (ZOFRAN-ODT) 8 mg [...] Dermatology at [facility] [address] [address] Prisca Hughes MD [facility] DR PHOE[address] [place] [address] documented as of this encounter Visit Diagnoses Diagnosis Cancer of prostate with high recurrence risk (stage T3a or Andre 8-10 or PSA > 20) Malignant neoplasm of prostate 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 documented in this encounter Care Teams Manager Registration Relationship Specialty Start Date End Date Celio Sanders MD [address] [place] [address] PCP - General Internal Medicine 05/19/16 documented as of this encounter
--- OUTSIDE RECORDS SUMMARY | 2023-12-29 12:12 | XMS_ITS | Encounter Summary ---
Author Organization Formerly [facility] Address [facility] [place] [address] Care Team Providers Care Crm Dynamics Developer Name Role Phone Celio Sanders MD Primary Care Provider [phone] Encounter Details Date Type Department Care Team (Latest Contact Info) Description 08/03/2016 1:05 PM EDT Procedure [place] [address] Matthew Pelaez MD [facility] [place] [address] Neoplasm of prostate regional lymph node staging [...] 2:00 PM EST Office Visit Dermatology at [facility] [address] [place] [address] Prisca Hughes MD [facility] DR PHOE[address] [place] [address] documented as of this encounter Visit Diagnoses Diagnosis 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 documented in this encounter Care Teams Crm Dynamics Developer Relationship Specialty Start Date End Date Celio Sanders MD [address] [place] [address] PCP - General Internal Medicine 05/19/16 documented as of this encounter
--- OUTSIDE RECORDS SUMMARY | 2023-12-29 12:12 | XMS_ITS | Encounter Summary ---
Author Organization [facility] Address [facility] [place] [address] Care Team Providers Care Index Clerk Name Role Phone Celio Sanders MD Primary Care Provider [phone] Encounter Details Date Type Department Care Team (Late st Contact Info) Description 07/16/2016 Telephone [place] [phone] Nicky Marcelo Social History Tobacco Use Types [...] 2:00 PM EST Office Visit Dermatology at [facility] [address] [place] [phone] Prisca Hughes MD [facility] [address] [place] [address] documented as of this encounter Visit Diagnoses Not on filedocumented in this encounter Care Teams Index Clerk Relationship Specialty Start Date End Date Celio Sanders MD [address] [place] [address] PCP - General Internal Medicine 05/19/16 documented as of this encounter
--- OUTSIDE RECORDS SUMMARY | 2023-12-29 12:12 | XMS_ITS | Encounter Summary ---
Author Organization [facility] Address [facility] [place] [address] Care Team Providers Care Land Law Examiner Name Role Phone Celio Sanders MD Primary Care Provider [phone] Encounter Details Date Type Department Care Team (Late st Contact Info) Description 10/18/2016 Telephone Radiation Oncology at [address] [phone] Alta Rowland RN Social History [...] PM EDT Radiation Oncology Nurse Telephone Note [facility] [place] [place] Patient calls c/o mild nausea. He [...] EST Office Visit Dermatology at [facility] [address] [place] [address] Prisca Hughes MD [facility] [place] [address] documented as of this encounter Visit Diagnoses Diagnosis Malignant neoplasm of prostate documented in this encounter Care Teams Land Law Examiner Relationship Specialty Start Date End Date Celio Sanders MD [address] [place] [address] PCP - General Internal Medicine 05/19/16 documented as of this encounter
--- OUTSIDE RECORDS SUMMARY | 2023-12-29 12:12 | XMS_ITS | Encounter Summary ---
Author Organization Replaced By [facility] Address [facility] [place] [address] Care Team Providers Care Carpenter Refrigerator Name Role Phone Celio Sanders MD Primary Care Provider Encounter Details Date Type Department Care Team (Late st Contact Info) Description 08/26/2016 7:45 AM EDT Office Visit [place] [address] Social History Tobacco Use Types Packs/Day Years [...] 2:00 PM EST Office Visit Dermatology at [facility] [address] [place] [address] Prisca Hughes MD [facility] [address] [place] [address] documented as of this encounter Visit Diagnoses Not on filedocumented in this encounter Care Teams Carpenter Refrigerator Relationship Specialty Start Date End Date Celio Sanders MD [address] [place] [address] PCP - General Internal Medicine 05/19/16 documented as of this encounter
--- OUTSIDE RECORDS SUMMARY | 2023-12-29 12:12 | XMS_ITS | Encounter Summary ---
Author Organization [facility] [place] [address] Care Team Providers Care Pasta Maker Name Role Phone Celio Sanders MD Primary Care Provider [phone] Encounter Details Date Type Department Care Team (Late st Contact Info) Description 09/23/2016 12:00 PM EDT Office Visit Radiation Oncology at [address] [phone] Ronnie Vazquez MD [address] [place] [address] DR RADIATION ONCOLOGY [place], [place] [phone] Cancer of prostate with high recurrence risk [...] Note 09/23/16 Ronnie Vazquez MD Radiation Oncology [facility] [phone] (paging etch operator semiconductor wafers) PATIENT IDENTIFICATION NAME: Nain Mckeon DATE OF [...] [facility] [address] [place] [phone] Prisca Hughes MD [facility] DR PHOE[address] [place] [address] documented as of this encounter Visit Diagnoses Diagnosis Cancer of prostate with high recurrence risk (stage T3a or Andre 8-10 or PSA > 20) Malignant neoplasm of prostate documented in this encounter Care Teams Pasta Maker Relationship Specialty Start Date End Date Celio Sanders MD [address] [place] [address] PCP - General Internal Medicine 05/19/16 documented as of this encounter
--- OUTSIDE RECORDS SUMMARY | 2023-12-29 12:12 | XMS_ITS | Encounter Summary ---
Author Organization [facility] [place] [address] Care Team Providers Care Drug Enforcement Agent Name Role Phone Celio Sanders MD Primary Care Provider Encounter Details Date Type Department Care Team (Late st Contact Info) Description 10/28/2016 Notes Only Radiation Oncology at [address] [phone] Ronnie Vazquez MD [address] [place] [address] DR RADIATION ONCOLOGY [place], [place] [phone] Social History Tobacco Use Types Packs/Day Years [...] to his pelvis and prostate at the [place], [place]. Details of his radiation treatment course [...] FOLLOWUP: Follow-up visit with Radiation Oncology in [facility] is scheduled for 11/18/16for clinical symptom check; he has received instructions to call this office or seek the help of the local emergency room if any further problems should arise prior to followup. documented in this encounter Plan of Treatment Upcoming Encounters Date Type Department Care Team (Late st Contact Info) Description 01/24/2024 2:00 PM EST Office Visit Dermatology at [address] [phone] Prisca Hughes MD [facility] [address] [place] [address] documented as of this encounter Visit Diagnoses Not on filedocumented in this encounter Care Teams Drug Enforcement Agent Relationship Specialty Start Date End Date Celio Sanders MD [address] [place] [address] PCP - General Internal Medicine 05/19/16 documented as of this encounter
--- OUTSIDE RECORDS SUMMARY | 2023-12-29 12:12 | XMS_ITS | Encounter Summary ---
[place] [address] Care Team Providers Care Molecular Biology Scientist Name Role Phone Celio Sanders MD Primary Care Provider [phone] Encounter Details Date Type Department Care Team (Late Contact Info) Description 08/04/2016 Telephone [place] [phone] Lisa Samuels Social History Tobacco Use Types [...] at [facility] [address] [place] [address] Prisca Hughes MD [facility] DR [place] [address] documented as of this encounter Visit Diagnoses Not on filedocumented in this encounter Care Teams Molecular Biology Scientist Relationship Specialty Start Date End Date Celio Sanders MD [address] [place] [address] PCP - General Internal Medicine 05/19/16 documented as of this encounter
--- OUTSIDE RECORDS SUMMARY | 2023-12-29 12:12 | XMS_ITS | Encounter Summary ---
[place] [address] Care Team Providers Care Restaurant Worker Name Role Phone Celio Sanders MD Primary Care Provider [phone] Reason for Visit * Reason Onset Date Comments Prior Authorization 08/08/2017 NO AUTH REQU IRED FOR PSYI Encounter Details Date Type Department Care Team (Late st Contact Info) Description 08/08/2017 [place] [phone] Edson Ferguson Prior Authorization (NO AUTH REQUIRED [...] Description of Procedure: PSYI Call Reference Number: MRAION Spoke With: AUTOMATED LINE Patient Class: IPI Patient Class Change Requirements: MARION Notes: I CALLED , THIS IS A MEDICARE SUPPLEMENT PLAN, NO AUTH IS REQUIRED documented in this encounter Plan of Treatment Upcoming Encounters Date Type Department Care Team (Late st Contact Info) Description 01/24/2024 2:00 PM EST Office Visit Dermatology at [address] [place] [address] Prisca Hughes MD [facility] [address] PHOEBE [place]BAR[place] [address] documented as of this encounter Visit Diagnoses Not on filedocumented in this encounter Care Teams Restaurant Worker Relationship Specialty Start Date End Date Celio Sanders MD [address] [place] [address] PCP - General Internal Medicine 05/19/16 documented as of this encounter
--- OUTSIDE RECORDS SUMMARY | 2023-12-29 12:12 | XMS_ITS | Encounter Summary ---
Author Organization [facility] [place] [address] Care Team Providers Care Air Chief Marshal Name Role Phone Celio Sanders MD Primary Care Provider [phone] Reason for Referral * Consultation (Routine) - Specialty Diagnoses / Procedures Referred By Contac t Referred To Contact Diagnoses Cancer of prostate with high recurrence risk (stage T3a or [place] 8-10 or PSA > 20) Ronnie Vazquez MD [address] [place] [address] [place] [address] Referral ID Status Reason Start Date Expiration Date V isits Requested Visits Authorized [id number] Consult, Test & Treat 11/19/2016 05/18/2017 1 1 Encounter Details Date Type Department Care Team (Late st Contact Info) Description 11/18/2016 10:00 AM EDT Office Visit Radiation Oncology at [address] [phone] Ronnie Vazquez MD [address] [place] [address] [place] [address] Cancer of prostate with high recurrence risk (stage T3a or [place] 8-10 or PSA > 20) Social History [...] 11/18/16 Ronnie Vazquez MD Radiation Oncology [facility] [phone] (paging pole incisor operator) PATIENT IDENTIFICATION NAME: Nain Mckeon DATE [...] back to normal. Plans to drive to [place], [place] with his and dog in the [...] from radiotherapy. Plan: He will be in [place] for next few months and would like [...] Visit Dermatology at [facility] [address] [place] [address] Prisca Hughes MD [facility] [address] PHOEBE MUHAMMAD-[place] [address] Scheduled Referrals Name Type Priority Associated Diagnoses [...] prostate documented in this encounter Care Teams Air Chief Marshal Relationship Specialty Start Date End Date Celio Sanders MD [address] [place] [address] PCP - General Internal Medicine 05/19/16 documented as of this encounter
--- OUTSIDE RECORDS SUMMARY | 2023-12-29 12:12 | XMS_ITS | Encounter Summary ---
Author Organization [facility] Address [facility] [place] [address] Care Team Providers Care Director Compensation Name Role Phone Celio Sanders MD Primary Care Provider [phone] Encounter Details Date Type Department Care Team (Late Contact Info) Description 07/15/2016 Telephone Radiation Oncology at [address] [phone] Harjeet Silvestre Social History Tobacco [...] 2:00 PM EST Office Visit Dermatology at [facility] [address] [address] Prisca Hughes MD [facility] [address] [address] documented as of this encounter Visit Diagnoses Not on filedocumented in this encounter Care Teams Director Compensation Relationship Specialty Start Date End Date Celio Sanders MD [address] [place] [address] PCP - General Internal Medicine 05/19/16 documented as of this encounter
--- OUTSIDE RECORDS SUMMARY | 2023-12-29 12:12 | XMS_ITS | Encounter Summary ---
Author Organization [place] [address] Care Team Providers Care Observer Helper Name Role Phone Celio Sanders MD Primary Care Provider [phone] Reason for Referral * Diagnostic Test (Routine) - Closed Specialty Diagnoses / Procedures Referred By Contac t Referred To Contact Radiology Diagnoses 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 Procedures MRI Pelvis Soft Tissue (Gi Gu Wire Saw Operator)WO Contrast Matthew Pelaez MD [facility] [place] [address] [place] [address] Referral ID Status Reason Start Date Expiration [...] Procedures MRI Pelvis Soft Tissue (Gi Gu Wire Saw Operator)WO Contrast Matthew Pelaez MD [facility] [place] [address] [place] [address] Referral ID Status Reason Start Date Expiration Date V isits Requested Visits Authorized [id number] Closed Specialty Service Requested 07/09/2016 07/09/2017 1 1 Encounter Details Date Type Department Care Team (Latest Contact Info) Description 08/13/2016 1:41 PM EDT - 08/13/2016 11:59 PM EDT Hospital [place] [address] Matthew Pelaez MD [facility] [address] Neoplasm of prostate regional lymph node staging [...] [facility] [address] [place] [address] Prisca Hughes MD [facility] [address] [place] [address] documented as of this encounter Procedures Procedure Name Priority Date/Time Associated Diagnosis Comments MRI PELVIS SOFT TISSUE (GI SOFTWARE CONFIGURATION ENGINEER) WO CONTRAST Routine 08/13/2016 5:02 PM EDT 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 documented in this encounter Results * MRI Pelvis Soft Tissue (Gi Gu Wire Saw Operator)WO Contrast (08/13/2016 5:02 PM EDT) Anatomical Region [...] EDT EXAMINATION: MRI PELVIS SOFT TISSUE (GI SOFTWARE CONFIGURATION ENGINEER) WO CONTRAST CLINICAL HISTORY: Prostate cancer for [...] 08/15/2016 EXAMINATION: MRI PELVIS SOFT TISSUE (GI SOFTWARE CONFIGURATION ENGINEER) WO CONTRAST CLINICAL HISTORY: Prostate cancer for [...] nodes documented in this encounter Care Teams Observer Helper Relationship Specialty Start Date End Date Celio Sanders MD [address] [place] [address] PCP - General Internal Medicine 05/19/16 documented as of this encounter
--- OUTSIDE RECORDS SUMMARY | 2023-12-29 12:12 | XMS_ITS | Encounter Summary ---
Author Organization [facility] Address [facility] [place] [address] Care Team Providers Care Central Communications Specialist Name Role Phone Celio Sanders MD Primary Care Provider [phone] Encounter Details Date Type Department Care Team (Late Contact Info) Description 05/30/2017 Orders Only Radiation Oncology at [address] [phone] Alta Rowland, RN Malignant neoplasm of prostate [...] 2:00 PM EST Office Visit Dermatology at [facility] [address] [place] [place] [address] Prisca Hughes MD [facility] [address]OE[address] [place] [address] documented as of this encounter Visit Diagnoses Diagnosis Malignant neoplasm of prostate documented in this encounter Care Teams Central Communications Specialist Relationship Specialty Start Date End Date Celio Sanders MD [address] [place], [place] [address] PCP - General Internal Medicine 05/19/16 documented as of this encounter
--- OUTSIDE RECORDS SUMMARY | 2023-12-29 12:12 | XMS_ITS | Encounter Summary ---
Author Organization [facility] Address [facility] [place] [address] Care Team Providers Care Deputy Sheriff Name Role Phone Celio Sanders MD Primary Care Provider [phone] Encounter Details Date Type Department Care Team (Late st Contact Info) Description 12/21/2016 Telephone [place] [phone] Nicky Marcelo Social History Tobacco Use Types [...] PM EST Office Visit Dermatology at [facility] [address] [place] [address] Prisca Hughes MD [facility] DR PHOEBE [place] [address] documented as of this encounter Visit Diagnoses Not on filedocumented in this encounter Care Teams Deputy Sheriff Relationship Specialty Start Date End Date Celio Sanders MD [address] [place] [address] PCP - General Internal Medicine 05/19/16 documented as of this encounter
--- OUTSIDE RECORDS SUMMARY | 2023-12-29 12:12 | XMS_ITS | Encounter Summary ---
Author Organization [facility] Address [facility] [place] [address] Care Team Providers Care Manager Digital Ad Operations Name Role Phone Celio Sandesr MD Primary Care Provider [phone] Reason for Visit * Reason Comments Follow-up Encounter Details Date Type Department Care Team (Late st Contact Info) Description 07/26/2017 3:30 PM EDT Office Visit Hematology/Oncology at [address] [address] Harjinder Snyder MD [facility] HEMATOLOGY [place] [address] Malignant neoplasm of prostate; Neoplasm of prostate [...] Curran performed ultrasound-guided prostate biopsy that showed [place] 4+4 disease in 2 cores and Andre [...] on prostate cancer. [place] abiraterone 250 mg daily with low-fat diet and prednisone 5 mg a day about 4 weeks ago. Nain feels that his bipolar disorder is [id number], buthe follows with therapist on that matter. [...] Years of education: N/A Occupational History ??? 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 A - Prostatic core needle biopsy, right lateral base: ? 1. Adenocarcinoma, grade group 3, [place] grade 4+3, ?involving 95% of the biopsy core. ? 2. Perineural invasion identified. B - Prostatic core needle biopsy, right medial base: ? 1. Adenocarcinoma, grade group 3, Andre grade 4+3, ?involving 95% of the biopsy core. ? 2. Perineural invasion identified. C - Prostatic core needle biopsy, right mid lateral: ? Adenocarcinoma, grade group 4, [place] grade 4+4, ? involving 90% of the biopsy core. D - Prostatic core needle biopsy, right mid medial: ? 1. Adenocarcinoma, grade group 4, [place] grade 4+4, ?involving 40% of the biopsy core. ? 2. Perineural invasion identified. E - Prostatic core needle biopsy, right lateral apex: ? Benign prostatic tissue. F - Prostatic core needle biopsy, right medial apex: ? Adenocarcinoma, grade group 3, [place] grade 3+4, ? involving 25% of the [...] and Plan: Diagnosis: Prostate adenocarcinoma, PSA 47.5, [place] 4+4=8/10, Stage [id number]. Treatment: - 05/31/16 Lupron 22.5 and bicalutamide [...] Oncology 36, no. 14 (Jul 14 2017) [id number]). He is concerned that prednisone is contributing [...] PM EST Office Visit Dermatology at [address] [address] Prisca Hughes MD [facility] DR PHOEBE [place] [address] documented as of this encounter Visit Diagnoses Diagnosis Malignant neoplasm of prostate 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 documented in this encounter Care Teams Manager Digital Ad Operations Relationship Specialty Start Date End Date Celio Sanders MD [address] [place] [address] PCP - General Internal Medicine 05/19/16 documented as of this encounter
--- OUTSIDE RECORDS SUMMARY | 2023-12-29 12:12 | XMS_ITS | Encounter Summary ---
Author Organization [facility] Address [facility] [place] [address] Care Team Providers Care Meat Apprentice Name Role Phone Celio Sanders MD Primary Care Provider [phone] Encounter Details Date Type Department Care Team (Late st Contact Info) Description 08/03/2016 1:32 PM EDT Anesthesia Event [place] [address] [facility] [place] [address] Anesthesia Record Procedure Summary Procedure Name Responsible [...] 1201; median cubital vein (antecubital fossa), right; sbqd-mar-[id number] catheter system; 20 gauge, 3/4 in length; [...] Frances MD - 08/03/2016 5:49 PM EDT [facility] Department of Anesthesiology Post-procedure Note Patient: Nain Mckeon Procedure Summary Date Anesthesia Start Anesthesia Stop Room / Location 08/03/16 1332 1514 [facility] MINOR SURGERY / [facility] MAIN OR Procedure Diagnosis Surgeon Responsible Provider PROSTATE IMPLANT GOLD COIL PROCEDURE (WRVU 13.46) (N/A Perineum) (PROSTATE CA GOLD COIL IMPLANT/ MINOR OR) Matthew Pelaez MD Nguyen, Tung T, MD All Anesthesia Providers: Anesthesiologist: Audie Frances MD DIGITAL PROJECT MANAGER: Rama Valdez CRNA Last (1hr) Vitals: BP Temp Pulse Resp SpO2 Patient Location: PACU/[facility] Level of Consciousness: Awake and Alert [...] Dermatology at [facility] [address] [place] [address] [facility] [place] [address] documented as of this encounter Visit Diagnoses [...] r documented in this encounter Care Teams Meat Apprentice Relationship Specialty Start Date End Date Celio Sanders MD [address] [place] [address] PCP - General Internal Medicine 05/19/16 documented as of this encounter
--- OUTSIDE RECORDS SUMMARY | 2023-12-29 12:12 | XMS_ITS | Encounter Summary ---
Author Organization [facility] Address [facility] [place] [address] Care Team Providers Care Commodity Merchant Name Role Phone Celio Sanders MD Primary Care Provider [phone] Encounter Details Date Type Department Care Team (Late st Contact Info) Description 08/03/2016 1:00 PM EDT - 08/03/2016 2:00 PM EDT Surgery [place] [phone] Matthew Pelaez MD [facility] [place] [address] PROSTATE IMPLANT GOLD COIL PROCEDURE (WRVU 13.46) [...] riding on anything that bounces such as ship yard electrical person, ATV, horse back riding or motorcycle riding [...] Pelaez MD - 08/03/2016 4:[address] [facility] Operative Note Patient Name: Nain Mckeon : [id number] MR#: [id number] Case Date: 08/03/2016 Surgeon: Surgeon(s) and Role: [...] gentleman with high-risk prostate cancer, PSA 47.5, [place] 4+4=8/10, Stage [id number]. He is planned for EBRT along with ADT. First Lupron injection was 22.5 mg (3-months) on 05/31/16. He originally was seen in [facility] by Dr. Vazquez. He did [...] The Space(OAR) system was prepared as per ethics instructor's recommendations. A needle was then placed trans-perineally [...] Visit Dermatology at [facility] [address] [place] [address] Prisca Hughes MD [facility] DR PHOE[address] [place] [address] documented as of this encounter Procedures Procedure [...] CRNA) documented in this encounter Care Teams Commodity Merchant Relationship Specialty Start Date End Date Celio Sanders MD [address] [place] [address] PCP - General Internal Medicine 05/19/16 documented as of this encounter
--- OUTSIDE RECORDS SUMMARY | 2023-12-29 12:12 | XMS_ITS | Encounter Summary ---
Author Organization [facility] Address [facility] [place] [address] Care Team Providers Care Design Technician Name Role Phone Celio Sanders MD Primary Care Provider [phone] Encounter Details Date Type Department Care Team (Late Contact Info) Description 07/27/2016 Telephone Radiation Oncology at [address] [address] Harjeet Silvestre Social History Tobacco [...] [facility] [address] [place] [address] Prisca Hughes MD [facility] [address] PHOE[address] [place] [address] documented as of this encounter Visit Diagnoses Not on filedocumented in this encounter Care Teams Design Technician Relationship Specialty Start Date End Date Celio Sanders MD [address] [place] [address] PCP - General Internal Medicine 05/19/16 documented as of this encounter
--- OUTSIDE RECORDS SUMMARY | 2023-12-29 12:12 | XMS_ITS | Encounter Summary ---
Author Organization [facility] [place] [address] Care Team Providers Care Fur Repair Inspector Name Role Phone Celio Sanders MD Primary Care Provider [phone] Encounter Details Date Type Department Care Team (Late st Contact Info) Description 11/02/2016 Telephone Hematology [place] [phone] Social History Tobacco Use [...] supplement to look for [employer] international or JAIL seals and advised to hold on during chemotx or if taking any medications which may interact. Will continue to remain available prn. documented in this encounter Plan of Treatment Upcoming Encounters Date Type Department Care Team (Late st Contact Info) Description 01/24/2024 2:00 PM EST Office [facility] [address] [place] [address] Prisca Hughes MD [facility] DR PHOEBE IBARRA[place] [address] documented as of this encounter Visit Diagnoses Not on filedocumented in this encounter Care Teams Fur Repair Inspector Relationship Specialty Start Date End Date Celio Sanders MD [address] [place] [address] PCP - General Internal Medicine 05/19/16 documented as of this encounter
--- OUTSIDE RECORDS SUMMARY | 2023-12-29 12:12 | XMS_ITS | Encounter Summary ---
Author Organization [facility] [place] [address] Care Team Providers Care Nickel Plant Operator Name Role Phone Celio Sanders MD Primary Care Provider [phone] Encounter Details Date Type Department Care Team (Late st Contact Info) Description 07/28/2016 Telephone Radiation Oncology at [address] [address] Harjeet Silvestre Social History Tobacco [...] Harjeet Silvestre - 07/29/2016 9:09 AM EDT Nain [...] Dermatology at [facility] [address] [place] [address] Prisca Hughes MD [facility] [address] PHOEBE MUHAMM[place] [address] documented as of this encounter Visit Diagnoses Not on filedocumented in this encounter Care Teams Nickel Plant Operator Relationship Specialty Start Date End Date Celio Sanders MD [address] [place] [address] PCP - General Internal Medicine 05/19/16 documented as of this encounter
--- OUTSIDE RECORDS SUMMARY | 2023-12-29 12:12 | XMS_ITS | Encounter Summary ---
Author Organization [facility] Address [facility] [place] [address] Care Team Providers Care Anatomical Embalmer Name Role Phone Celio Sanders MD Primary Care Provider [phone] Encounter Details Date Type Department Care Team (Late st Contact Info) Description 07/08/2016 Telephone Radiation Oncology at [address] [address] Alta Rowland RN Social History [...] AM EDT Radiation Oncology Nurse Telephone Note [facility] [place], [place] 07/08/16 called patient to clarify medications [...] week if he has not heard from [facility] this consult. He expressed appreciation for this call. documented in this encounter Plan of Treatment Upcoming Encounters Date Type Department Care Team (Late st Contact Info) Description 01/24/2024 2:00 PM EST Office Visit Dermatology at [facility] [address] [place] [address] Prisca Hughes MD [facility] DR PHOEBE MUHAMM[place] [address] documented as of this encounter Visit Diagnoses Not on filedocumented in this encounter Care Teams Anatomical Embalmer Relationship Specialty Start Date End Date Celio Sanders MD [address] [place] [address] PCP - General Internal Medicine 05/19/16 documented as of this encounter
--- OUTSIDE RECORDS SUMMARY | 2023-12-29 12:12 | XMS_ITS | Encounter Summary ---
Author Organization [facility] [place] [address] Care Team Providers Care Precision Machinist Name Role Phone Celio Sanders MD Primary Care Provider [phone] Reason for Visit * Reason Comments On Treatment Visit Encounter Details Date Type Department Care Team (Late st Contact Info) Description 08/31/2016 7:30 AM EDT Office Visit [place] [phone] Ronnie Vazquez MD [address] [place] [address] [place] [address] Cancer of prostate with high recurrence risk (stage T3a or [place] 8-10 or PSA > 20); Neoplasm of [...] Note 08/31/16 Ronnie Vazquez MD Radiation Oncology [facility] [phone] (paging tube sizer and cutter operator) PATIENT IDENTIFICATION NAME: Nain Mckeon DATE [...] 2:00 PM EST Office Visit Dermatology at [facility] [address] [facility] [place] [address] Prisca Hughes MD [facility] DR PHOEBE MUH[place] [address] documented as of this encounter Visit Diagnoses Diagnosis Cancer of prostate with high recurrence risk (stage T3a or [place] 8-10 or PSA > 20) Malignant neoplasm of prostate 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 documented in this encounter Care Teams Precision Machinist Relationship Specialty Start Date End Date Celio Sanders MD [address] [place] [address] PCP - General Internal Medicine 05/19/16 documented as of this encounter
--- OUTSIDE RECORDS SUMMARY | 2023-12-29 12:12 | XMS_ITS | Encounter Summary ---
Author Organization [facility] [place] [address] Care Team Providers Care Instrumental Music Teacher Name Role Phone Celio Sanders MD Primary Care Provider [phone] Encounter Details Date Type Department Care Team (Late st Contact Info) Description 10/14/2016 8:30 AM EDT Office Visit Radiation Oncology at [address] [phone] Ronnie Vazquez MD [address] [place] [address] DR RADIATION ONCOLOGY [place], [place] [id number] Cancer of prostate with high recurrence risk (stage T3a or [place] 8-10 or PSA > 20) Social History [...] Note 10/14/16 Ronnie Vazquez MD Radiation Oncology [facility] [phone] (paging beam machine operator) PATIENT IDENTIFICATION NAME: Nain Mckeon [...] [facility] [address] [place] [address] Prisca Hughes MD [facility] DR [place] [address] documented as of this encounter Visit Diagnoses Diagnosis Cancer of prostate with high recurrence risk (stage T3a or [place] 8-10 or PSA > 20) Malignant neoplasm of prostate documented in this encounter Care Teams Instrumental Music Teacher Relationship Specialty Start Date End Date Celio Sanders MD [address] [place] [address] PCP - General Internal Medicine 05/19/16 documented as of this encounter
--- OUTSIDE RECORDS SUMMARY | 2023-12-29 12:12 | XMS_ITS | Encounter Summary ---
Author Organization [facility] Address [facility] [place] [address] Care Team Providers Care Roll Skinner Name Role Phone Celio Sanders MD Primary Care Provider [phone] Encounter Details Date Type Department Care Team (Latest Contact Info) Description 08/03/2016 11:27 AM EDT - 08/03/2016 4:27 PM EDT Hospital Encounter [place] [address] Matthew Pelaez MD [facility] [place] [address] Discharge Disposition: Home Social History Tobacco Use [...] riding on anything that bounces such as family medicine resident, ATV, horse back riding or motorcycle riding [...] Pelaez MD - 08/03/2016 4:27 PM EDT [facility] Operative Note Patient Name: Nain Mckeon : [id number] MR#: [id number] Case Date: 08/03/2016 Surgeon: Surgeon(s) and Role: [...] prostate cancer, PSA 47.5, [place] 4+4=8/10, Stage [id number]. He is planned for EBRT along with [...] The Space(OAR) system was prepared as per sephora operations consultant's recommendations. A needle was then placed trans-perineally [...] 2:00 PM EST Office Visit Dermatology at [facility] [address] [place] [address] Prisca Hughes MD [facility] DR PHOEBE [place] [address] documented as of this encounter Procedures Procedure [...] CRNA) documented in this encounter Care Teams Roll Skinner Relationship Specialty Start Date End Date Celio Sanders MD [address] [place] [address] PCP - General Internal Medicine 05/19/16 documented as of this encounter
--- OUTSIDE RECORDS SUMMARY | 2023-12-29 12:12 | XMS_ITS | Encounter Summary ---
[place] [address] Care Team Providers Care Postmaster Name Role Phone Celio Sanders MD Primary Care Provider [phone] Reason for Visit * Reason Comments Follow-up Encounter Details Date Type Department Care Team (Latest Contact Info) Description 09/03/2016 8:00 AM EDT Clinical Support [place] [address] Dietary counseling Social History [...] Cobb RD - 09/03/2016 8:00 AM EDT [facility] Initial Dietitian Assessment Seen By: Kimberly Cobb, , RD, LD, RETAIL EVENT AND SALES ASSISTANT Referred by: Reason for visit: Patient and [...] at [facility] [address] [place] [address] Prisca Hughes MD [facility] DR [place] [address] documented as of this encounter Visit Diagnoses Diagnosis Dietary counseling Dietary surveillance and counseling documented in this encounter Care Teams Postmaster Relationship Specialty Start Date End Date Celio Sanders MD [address] [place] [address] PCP - General Internal Medicine 05/19/16 documented as of this encounter
--- OUTSIDE RECORDS SUMMARY | 2023-12-29 12:12 | XMS_ITS | Encounter Summary ---
Author Organization [facility] [place] [address] Care Team Providers Care Lubricating Specialist Name Role Phone Celio Sanders MD Primary Care Provider [phone] Encounter Details Date Type Department Care Team (Late st Contact Info) Description 09/21/2016 Telephone Radiation Oncology at [address] [address] Alta Rowland RN Social History [...] PM EDT Radiation Oncology Nurse Telephone Note [facility] [place] [place] Patient has received 19FXs, 3420 cGy [...] Dermatology at [facility] [address] [place] [address] Prisca Hughes MD [facility] DR PHOE[place] [address] documented as of this encounter Visit Diagnoses Not on filedocumented in this encounter Care Teams Lubricating Specialist Relationship Specialty Start Date End Date Celio Sanders MD [address] [place] [address] PCP - General Internal Medicine 05/19/16 documented as of this encounter
--- OUTSIDE RECORDS SUMMARY | 2023-12-29 12:12 | XMS_ITS | Encounter Summary ---
Author Organization [facility] Address [facility] [place] [address] Care Team Providers Care Data Processing Manager Name Role Phone Celio Sanders MD Primary Care Provider [phone] Reason for Visit * Auth/Cert Specialty Diagnoses / Procedures Referred By Contac t Referred To Contact Diagnoses Bipolar disorder, current episode manic without psychotic features, moderate BIPOLAR Procedures PSYI Referral ID Status Reason Start Date Expiration Date Visits Re quested Visits Authorized [id number] 1 1 Encounter Details Date Type Department Care Team (Latest Contact Info) Description 08/06/2017 8:04 PM EDT - 08/15/2017 12:39 PM EDT Hospital Encounter 2 [facility] [place] [id number] David Keen MD [facility] [place] [id number] Bipolar II disorder Discharge Disposition: Home Social [...] Mojgan Lipscomb Patient Age: 66 y.o. Language: Bulgarian Race: White Ethnicity: Not nor Admit date: [...] made the following appointments for you. : [address] [address] Phone: Fax: Ila Hicks APRN: August 23 at 2:30pm Katlyn Brown: September 02 at 1:00pm Mental Health- [facility] [address], [address] [place] [address] Phone: Fax: Dr. David Fleming: August 19 at 12:00pm Inpatient Provider Contact Information: For questions regarding this document (including laboratory or other studies) or issues relating tothis hospitalization, please contact your patient home care aide, GRAEME FORD RN, through the [facility] Gasoline Pump Mechanic . Issues after hours and on weekends will be handled by the psychiatryresident on- call who can be reached through the [facility] Gasoline Pump Mechanic. Advance Care Plan The patient has an appointed surrogate decision maker: no Name of surrogate decision maker: na The patient has medical advance directives: no The patient has psychiatric advance directives: no All eleven elements of the Transition Record have been reviewed with the patient. Future Appointments and Orders Future Appointments Provider Department Dept Phone 08/23/2017 3:00 PM Gael Anderson MD Hematology/Oncology at [facility] [phone] 08/25/2017 10:30 AM Maria R Mora APRN Radiation Oncology at [facility] [phone] 08/25/2017 11:00 AM STJ INFUSION, ROOM Hematology Oncology at [facility] [phone] Reason for Hospitalization: safety, stabilization and medication management History of Presentation: As per the 08/06/2017 admission H&P: Mojgan is a 66yo male with a history of bipolar disorder and prostate cancer who arrived at [facility] by taxi from [facility] after spending the week in [facility] for manic symptoms and being discharged withouta transfer to a psychiatric facility. The patient was a poor historian and much of the history was obtained from the patient's . ?? Mogjan had his first manic episode in 2003. Since then his brayan has been well controlled with lamictal. He has had some minor manic episodes since then, usually associated with him experimenting with going off of his medication, but none have required hospitalization. In June 2017, while he and hiswife were wintering in [place], an oncologist recommended that he try the [...] flight of ideas. When they returned from [place], thepatient's drove and she was secretly glad he lost his car keys because of his impulsivity. ?? The patient's went to [place] for a bridal shower, and while the patient was alone he feltscared at home and checked himself into [facility]. He sought voluntary transfer to a psychiatric facility but was unsuccessful and was eventually discharged Tuesday. Tuesday night he was still afraid and paranoid, and after a discussion with his psychiatrist he took a taxi to [facility] to be admitted to out psych unit. [...] Vit Lvls: Lab Results Component Value Date [id number] 744 08/06/2017 SFOLATE >20.0 08/06/2017 UA: No [...] home Primary Care Physician: Celio Sanders MD [phone] Special Physician Instructions: Special Instructions Provided to [...] other decline in your overall condition. [facility] Emergency Services: [phone] [facility] Central Access Services: [phone] [facility] Main Line: [phone] Activity level: no restrictions from psychiatry Diet: [...] Provider Contact Information: Emergency Services (Crisis Line): [phone] [facility]: [phone] [facility] Main Line: [phone] Click refresh button immediately prior to signing [...] coordinating discharge for this patient and included yezv-ud-mkqbfswlsoffk and exam, explanation of after visit instructions and medications to the patient and necessary caregivers, documentation, and prescription management. documented in this encounter Discharge Instructions * Discharge Instructions* Graeme Ford RN - 08/15/2017 9:59 AM EDT We have made the following appointments for you. : [facility] [address] [place] [address] Phone: Fax: Ila Hicks APRN: August 23 at 2:30pm Katlyn Brown: September 02 at 1:00pm Mental Health- [facility] [address], [address] [place] [address] Phone: Fax: Dr. David Fleming: August 19 at 12:00pm Inpatient Provider Contact Information: For questions regarding this document (including laboratory or other studies) or issues relating tothis hospitalization, please contact your patient home care aide, GRAEME FORD RN, through the [facility] Gasoline Pump Mechanic . Issues after hours and on weekends will be handled by the psychiatryresident on- call who can be reached through the [facility] Gasoline Pump Mechanic. Advance Care Plan The patient has an [...] Vit Lvls: Lab Results Component Value Date [id number] 744 08/06/2017 SFOLATE >20.0 08/06/2017 UA: No [...] home Primary Care Physician: Celio Sanders MD [phone] Special Physician Instructions: Special Instructions Provided to [...] other decline in your overall condition. [facility] Emergency Services: [phone] [facility] Central Access Services: [phone] [facility] Main Line: [phone] Activity level: no restrictions from psychiatry Diet: [...] hyperverbal and spontaneous ?? Language: fluent in costa rican ?? Mood: I feel pretty good. ?? [...] functioning ?? Insight: fair ?? Judgment: fair Hardwick Suicide Risk Scale (most recently completed): Suicidal [...] INR Thyroid: No results found for: TSH, Y5QXMKH, TT4 Lipids and HgbA1C: Lab Results Component Value Date CHLPL 169 08/10/2017 HDL 49 08/10/2017 CHOLHDL 3.4 08/10/2017 LDLCHOL 84 08/10/2017 TRIG 182 08/10/2017 Lab Results Component Value Date HA1C 5.6 08/10/2017 Vit Lvls: No results found for: [id number], SFOLATE UA: No results found for: GLUCOSEU, [...] disorder and prostate cancer who presents to [facility] with a manic episode in the setting [...] coordinating discharge for this patient and included stbm-va-aqapyomrhsusu and exam, explanation of after visit instructions [...] goal to rest, relax, go for walk, spiritism, finish pg. 3-4, watch the chilean open. Plan to invite to all groups. [...] hyperverbal and spontaneous ?? Language: fluent in costa rican ?? Mood: Doing better. ?? Affect: bright, [...] functioning ?? Insight: fair ?? Judgment: fair Hardwick Suicide Risk Scale (most recently completed): Suicidal [...] INR Thyroid: No results found for: TSH, S7KWNJO, TT4 Lipids and HgbA1C: Lab Results Component Value Date CHLPL 169 08/10/2017 HDL 49 08/10/2017 CHOLHDL 3.4 08/10/2017 LDLCHOL 84 08/10/2017 TRIG 182 08/10/2017 Lab Results Component Value Date HA1C 5.6 08/10/2017 Vit Lvls: No results found for: [id number], SFOLATE UA: No results found for: GLUCOSEU, [...] disorder and prostate cancer who presents to [facility] with a manic episode in the setting [...] hyperverbal and spontaneous ?? Language: fluent in costa rican ?? Mood: relaxed ?? Affect: constricted ?? [...] functioning ?? Insight: fair ?? Judgment: fair Hardwick Suicide Risk Scale (most recently completed): Suicidal [...] Vit Lvls: Lab Results Component Value Date [id number] 744 08/06/2017 SFOLATE >20.0 08/06/2017 UA: Lab [...] disorder and prostate cancer who presents to [facility] with a manic episode in the setting [...] hyperverbal and spontaneous ?? Language: fluent in costa rican ?? Mood: Doing better. ?? Affect: expansive [...] functioning ?? Insight: fair ?? Judgment: fair Hardwick Suicide Risk Scale (most recently completed): Suicidal [...] Vit Lvls: Lab Results Component Value Date [id number] 744 08/06/2017 SFOLATE >20.0 08/06/2017 UA: Lab [...] disorder and prostate cancer who presents to [facility] with a manic episode in the setting [...] that peer was asking about . When headline writer shared Importance of pt.'s completing patient [...] hyperverbal and spontaneous ?? Language: fluent in costa rican ?? Mood: Doing better. I'd like to [...] functioning ?? Insight: fair ?? Judgment: fair Hardwick Suicide Risk Scale (most recently completed): Suicidal [...] Vit Lvls: Lab Results Component Value Date [id number] 744 08/06/2017 SFOLATE >20.0 08/06/2017 UA: Lab [...] (including Suicide Risk Assessment) Brief Formulation: Mojgan Lipsocmb??is a 66 y.o.??Male??with a history of bipolar disorder and prostate cancer who presents to [facility] with a manic episode in the setting [...] spoken with him since his admission. This headline writer suggested Yaneth visit with Mojgan today to get a better sense of where he is currently at. She agreed to this visit, but only if this headline writer would be present for the entire visit as she has fears that Mojgan will start yelling or swearing at her again. This headline writer agreed to this and will plan [...] 66 year old MWM, who presents at [facility] to address his current manic episode. Please refer to admit note for details. 2. Family Constellation, Pertinent History: Patient is one of 2 children born and raised in family of origin. Parents are , Mother at age 82 and Father at age 83. Sister Valery age 66 lives in [place]. Patient reports that he has not had contact with her for many years. Patient was born and raised in [place] and described childhood as strange (chart notes indicate a dysfunctional childhood). Patientreports that family lived in [place] but spend every weekend at the family farm in [place]. Little to no extended family available or involved. Patient left home at age 16 to attend [employer]. Patient has been to Yaneth age 64 for 45 years, 2 children Doris age 40 in [place] and Edson age 39 [facility]. Patient reports that ongoing conflict with [...] including spiritual support: Dr. Fleming, bere in [facility], practicing Taoist and Jain. 6. 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 Language: fluent in costa rican ?? Mood: Anxious. ?? Affect: irritable, expansive [...] functioning ?? Insight: limited ?? Judgment: limited Hardwick Suicide Risk Scale (most recently completed): Suicidal [...] Vit Lvls: Lab Results Component Value Date [id number] 744 08/06/2017 SFOLATE >20.0 08/06/2017 UA: Lab [...] disorder and prostate cancer who presents to [facility] with a manic episode in the setting [...] hyperverbal and spontaneous ?? Language: fluent in costa rican ?? Mood: I need more rest. ?? [...] functioning ?? Insight: limited ?? Judgment: limited Hardwick Suicide Risk Scale (most recently completed): Suicidal [...] Vit Lvls: Lab Results Component Value Date [id number] 744 08/06/2017 SFOLATE >20.0 08/06/2017 UA: Lab [...] disorder and prostate cancer who presents to [facility] with a manic episode in the setting [...] resistant prostate cancer (CRPC). Abstract of a video game engineer presented at the 2017 [place] Society of Clinical Oncology, August 09, 2016, [place], [place]. Clinical trial information: [id number]. Thus, it seems feasible to continue it [...] finding difficulty, occasionally loud ?? Language: fluent costa rican non profane ?? Mood: Pissed off ?? [...] appropriate ?? Insight: poor ?? 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 Residence: [address] [address] Guardian/Medical Decision Maker: (if other than self) Outpatient Providers: (include location) Current Mental Health Prescriber: David Fleming of [facility] Current Therapist: David Fleming of [facility] PCP: Celio Sanders MD Chief Complaint: 66 y.o. Male presents to [facility] with complaint that I am manic. Interval History: (1,1,4) Mojgan is a 66yo male with a history of bipolar disorder and prostate cancer who arrived at [facility] by taxi from [facility] [place] [...] while he and hiswife were wintering in [place], an oncologist recommended that he try the [...] flight of ideas. When they returned from [place], thepatient's drove and she was secretly glad he lost his car keys because of his impulsivity. The patient's went to [place] for a bridal shower, and while the patient was alone he feltscared at home and checked himself into [facility]. He sought voluntary transfer to a psychiatric facility but was unsuccessful and was eventually discharged Tuesday. Tuesday night he was still afraid and paranoid, and after a discussion with his psychiatrist he took a taxi to [facility] to be admitted to out psych unit. 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 ENDO No temperature intolerance HEME/LYMPH No edema ALL/IMMUNO No symptoms of Sinustis Physical Exam: Vitals ED from 08/05/2017 in Emergency Department [facility] Weight 80.3 kg (177 lb) Height 160 [...] loud and pressured ?? Language: fluent in costa rican ?? Mood: better than I was this [...] Negative mcL Appearance UA Clear Clear Spec State Line UA 1.028 1.002 - 1.030 Color UA [...] bipolar disorder and prostate cancer who present[facility] with a manic episode in the setting [...] and alliance: follows advice of his psychiatrist Hardwick Suicide Risk Scale (most recently completed) Suicidal [...] a 66 y.o. patient followed client of [facility] with history of bipolar affective [...] ??Volume appropriate for setting. ?? Language: Appropriate, Bulgarian-speaking ?? Mood: Great ?? Affect: Lively and [...] Vit Lvls: Lab Results Component Value Date [id number] 744 08/06/2017 SFOLATE >20.0 08/06/2017 UA: No [...] Current Working Primary Diagnosis:??Bipolar disorder w/ current brayna w/o psychotic features.? Current Clinical Assessment: BPD [...] outpatient f/up with new heme onc in [facility] on 08/23. ? #Other medical [...] Outcome: Ongoing (Interventions Implemented as Appropriate) 08/14/17 9745 Coping/Psychosocial Plan Of Care Reviewed With patient [...] peers. He attended groups. He attended the [employer] service in the morning. PLAN MOVING FORWARD: [...] ??Volume appropriate for setting. ?? Language: Appropriate, Bulgarian-speaking ?? Mood: Feel great ?? Affect: Lively [...] convince her to be a better . Hardwick Suicide Risk Scale: Suicide Screening Suicidal Thoughts: [...] Vit Lvls: Lab Results Component Value Date [id number] 744 08/06/2017 SFOLATE >20.0 08/06/2017 UA: No [...] outpatient f/up with new heme onc in [facility] on 08/23. ? #Other medical [...] Appropriate) 08/11/17 1030 Interdisciplinary Rounds/Family Conf Participants case monitor;nursing;patient;social work/services;physician Problem: Manic Behavior/Episode (Adult) Goal: Mood [...] outcome * Med Student Progress Note - iLnda Burnett - 08/11/2017 8:24 AM EDT Psychiatry [...] Volume appropriate for setting. ?? Language: Appropriate, Bulgarian-speaking ?? Mood: Not good ?? Affect: Non-congruent. [...] is over the hump ?? Judgment: Limited Hardwick Suicide Risk Scale: Suicide Screening Suicidal Thoughts: [...] Vit Lvls: Lab Results Component Value Date [id number] 744 08/06/2017 SFOLATE >20.0 08/06/2017 UA: No results found for: GLUCOSEU, KETONESUA, PROTEINUADIP, BLOODUADIP, LEUKOESTERUA, NITRATEUA, WBCUA (May not represent most recent UA results. See eD-H labs for more details.) Tox: No results found for: ETHANOL, ACTMNPHEN, SALICYLATE, LEAD No results found for: UDAUSCREEN Rx Lvls: No results found for: LITHIUM, CARBAMAZEPIN, VALPROATE, LAMOTRIGINE, CLOZAPINE Assessment: oMjgan Lipscomb??is a 66 y.o.??male??with a history of [...] outpatient f/up with new heme onc in [facility] on 08/23. -Flomax 10mg QHS [...] prosody. Volume appropriate for setting. Language: Appropriate, Bulgarian-speaking Mood: Not good Affect: Non-congruent. Seems lively [...] he is over the hump Judgment: Limited Hardwick Suicide Risk Scale: Suicide Screening Suicidal Thoughts: [...] Vit Lvls: Lab Results Component Value Date [id number] 744 08/06/2017 SFOLATE >20.0 08/06/2017 UA: No [...] outpatient f/up with new heme onc in [facility] on 08/23. -Flomax 10mg QHS [...] he be able to speak with his steam locomotive firer/fireman who had a phone conversation with his [...] by July 17 when they returned from [place] (drove back across country). -Patient states that [...] prosody. Volume appropriate for setting. Language: Appropriate, Bulgarian-speaking Mood: I need to get more rest [...] that thoughts are slowing down. Judgment: Limited Hardwick Suicide Risk Scale: Suicide Screening Suicidal Thoughts: [...] Vit Lvls: Lab Results Component Value Date [id number] 744 08/06/2017 SFOLATE >20.0 08/06/2017 UA: Lab [...] outpatient f/up with new heme onc in [facility] on 08/23. #Other medical issues [...] Outcome: Ongoing (Interventions Implemented as Appropriate) 08/08/17 0791 Coping/Psychosocial Plan Of Care Reviewed With patient [...] home and have his dog as a commercial relationship manager. Understands some of his 's concerns and [...] independent Surveillance [facility]continuous indirect monitoring[facility] Patient-specific fall prevention interventions for sensory deficits [...] year old male (1950) presenting to [address] [place] [address] for treatment with Bipolar disorder, current episode [...] disorder and prostate cancer who arrived at [facility] by taxi from [facility] [place] while he and his were wintering in [place], an oncologist recommended that he try the combination of Zytiga and Prednisone for his prostatecancer. Since then he has been acutely manic. ADVANCE DIRECTIVES: Information provided as needed HEALTH /PRESCRIPTION COVERAGE: Current Effective Coverage: Payor/Plan Subscr Sex Relation Sub. Ins. ID Effective Group Num 1. MEDICARE - [place]* MOJGAN LIPSCOMB 1950 Male Self [id number] 08/05/[address] - MOJGAN LIPSCOMB 1950 Male [id number] 05/12/16 [address] Prescription Coverage: Confirmed Preferred Pharmacy: [address] [address] HOME ENVIRONMENT / SOCIAL & FAMILY SUPPORTS/COMMUNITY RESOURCES:(living situation, family constellation, Caregivers, current use & knowledge of community resources, etc.) Extended Emergency Contact Information Primary Emergency Contact: Yaneth Lipscomb Address: [address] [place] [address] [facility] Relation: Spouse PRIMARY CARE PHYSICIAN: Celio Sanders MD [address] / [facility] [address] MENTAL HEALTH PRESCRIBER: Dr. David Fleming Current Decision-Making Capacity: (Level of Alertness/Orientation, dementia/ cognitive deficit, if patient is a minor - assess parent/guardian, etc.) Able to consent to or refuse care. CURRENT PATIENT & FAMILY EDUCATION, COPING NEEDS: (Address patient/family satisfaction with care to date, understanding of current status and plan of care, need for family meeting, need for full time staff interpreter, etc.) Education regarding effective coping skills, medication [...] D/C to [address] [facility] [address]? None anticipated Rehab/SNF: no New community resources referrals needed? Refer back to current outpatient mental health provider Other: PLAN: PCM will continue to monitor progress, follow for continuity of care and assist with transition of care planning while hospitalized. GRAEME FORD RN PAGER: [phone] * Plan of Care - Graeme Ford [...] understanding of illness 2 Work with Patient Sr. Merchandise Planner to create and implement aftercare plan 3 [...] David Keen MD 08/08/17 NURSING 08/08/17 PATIENT FRONT END WEB DESIGNER Graeme Ford RN 08/08/17 THERAPIST 08/08/17 RAILROAD TRACK INSPECTOR LISA Calixto 08/08/17 * Plan of Care [...] and would not take it at all. crew caller made aware. Denies SI/HI. No safety concerns. [...] EVALUATION NOTE: OUTCOME SUMMARY: Pt admitted to [facility] from ED. Pt reports that he [...] which heightened during their road trip to [place] to meet their son in mid June. [...] 2:00 PM EST Office Visit Dermatology at [facility] [address] [place] [address] Prisca Hughes MD [facility] [address] [place] [address] documented as of this encounter Procedures Procedure [...] Glucose Fasting 101(H) 65 - 99 mg/dL [facility] Comment: ?Fasting* Glucose Interpretive Criteria [...] of Diabetes Mellitus, Position Statement from the [place] Diabetes Association. ??Diabetes Care, Volume 33, Supplement 1, Mar 2009 Blood specimen (specimen) 08/10/2017 10:45 AM EDT 08/10/2017 10:54 AM EDT Narrative Resulting Agency Comment Spec In Lab David Keen MD CHEMISTRY ORDERABLES [facility] [place] [address] * Lipid Panel (08/10/2017 10:45 AM EDT) Cholesterol, Total 169 mg/dL [facility] Comment: Lower Risk: <200 mg/dL Average Risk: 200-239 mg/dL Higher Risk: >ma=441 mg/dL Triglyceride 182 mg/dL [facility] Comment: Average Risk/Lower Risk: <150 mg/dL Borderline High Risk: 150-199 mg/dL High Risk: 200-499 mg/dL Very High Risk: >qp=835 mg/dL HDL Cholesterol 49 mg/dL [facility] Comment: Males: ?? Higher Risk: <40 mg/dL Females: ?? HIgher Risk: <50 mg/dL LDL Cholesterol 84 mg/dL [facility] Comment: Lowest Risk: <100 mg/dL Lower Risk: 100-129 mg/dL Borderline High Risk: 130-159 mg/dL High Risk: 160-189 mg/dL Very High Risk: >ho=103 mg/dL Cholesterol/HDL Ratio 3.4 ratio [facility] LABORATORY Lipid Interpretation See Note [facility] Comment: Lipid management should be guided by a patient? s ASCVD risk, goals and preferences. ACC/AHA Guidelines recommend high intensity statin if clinical ASCVD or LDL greater than or equal to 190 mg/dL. [email or web address] Adults aged 40-75 with LDL 70-189 mg/dL should have their 10 year ASCVD risk estimated with the ACC/AHA ASCVD risk drapery estimator http://tools.acc.org/WUMVU-Ysjj-Nssoalarp/ Statin should be discussed if risk greater [...] In Lab David Keen MD CHEMISTRY ORDERABLES [facility] [place] [address] * Hemoglobin A1c (08/10/2017 10:45 AM EDT) Hemoglobin A1c 5.6 4.3 - 5.6 % [facility] Comment: Reference Range: 4.3 - [...] Mellitus, Diabetes Care 2013; 36: Suppl. 1, Z97-52 Estimated Average Glucose 114 mg/dL [facility] Comment: eAG equivalents for HbA1c [...] into estimated average glucose values. ??Diabetes Care 2008:31(8):0726-7796. Blood specimen (specimen) 08/10/2017 10:45 AM EDT 08/10/2017 10:54 AM EDT Narrative Resulting Agency Comment Spec In Lab David Keen MD CHEMISTRY ORDERABLES Performing Organization Address City/[facility] Co de Phone Number [facility] [place] [address] * EKG 12 Lead (08/07/2017 10:24 AM EDT) Ventricular rate 79 BPM MUSE SYSTEM Atrial Rate 79 BPM MUSE SYSTEM P-R Interval 136 ms MUSE SYSTEM QRS Duration 92 ms MUSE SYSTEM Q-T Interval 376 ms MUSE SYSTEM QTC Calculated (Bezet) 431 ms MUSE SYSTEM Calculated P Har[place] 44 degrees MUSE SYSTEM Calculated R [place] 35 degrees MUSE SYSTEM Calculated T [place] 29 degrees MUSE SYSTEM INTERPRETATION Normal sinus rhythm Inferior infarct , age undetermined Abnormal ECG When compared with ECG of 11-APR-2003 19:43, Inferior infarct is now Present Confirmed by MD Andres, Aakash Marvin ([id number]) on 08/07/2017 12:19:01 PM MUSE SYSTEM 08/07/2017 10:2 4 AM EDT 08/07/2017 12:19 PM EDT David Keen MD ECG ORDERABLES Performing Organization Address [facility] Co de Phone Number MUSE [...] RN) documented in this encounter Care Teams Data Processing Manager Relationship Specialty Start Date End Date Celio Sanders MD [address] [place] [address] PCP - General Internal Medicine 05/19/16 documented as of this encounter
--- OUTSIDE RECORDS SUMMARY | 2023-12-29 12:12 | XMS_ITS | Encounter Summary ---
Author Organization [facility] Address [facility] [place] [address] Care Team Providers Care Landfill Attendant Name Role Phone Celio Sanders MD Primary Care Provider [phone] Reason for Visit * Reason Comments Prostate Cancer * Consultation (Routine) - Closed Specialty Diagnoses / Procedures Referred By Contac t Referred To Contact Hematology and Oncology Diagnoses Cancer of prostate with high recurrence risk (stage T3a or Andre 8-10 or PSA > 20) Ronnie Vazquez MD [address] [place] [place] [address] [place] [address] Stj Hem Onc Office [address] [place] [phone] Referral ID Status Reason Start Date Expiration Date V isits Requested Visits Authorized [id number] Closed Consult, Test & Treat 10/07/2016 10/07/2017 1 1 Encounter Details Date Type Department Care Team (Late st Contact Info) Description 11/10/2016 12:00 PM EDT Office Visit [place]ematology [place] [address] Harjinder Snyder MD [facility] DR HEMATOLOGY [place] [address] Malignant neoplasm of prostate Social History Tobacco [...] 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 A - Prostatic core needle biopsy, right lateral base: ? 1. Adenocarcinoma, grade group 3, [place] grade 4+3, ?involving 95% of the biopsy core. ? 2. Perineural invasion identified. B - Prostatic core needle biopsy, right medial base: ? 1. Adenocarcinoma, grade group 3, [place] grade 4+3, ?involving 95% of the biopsy core. ? 2. Perineural invasion identified. C - Prostatic core needle biopsy, right mid lateral: ? Adenocarcinoma, grade group 4, Andre grade 4+4, ? involving 90% of the biopsy core. D - Prostatic core needle biopsy, right mid medial: ? 1. Adenocarcinoma, grade group 4, [place] grade 4+4, ?involving 40% of the biopsy [...] and Plan: Diagnosis: Prostate adenocarcinoma, PSA 47.5, [place] 4+4=8/10, Stage [id number]. Treatment: - 05/31/16 Lupron 22.5 and bicalutamide [...] receiving a standard of care treatment with alf ADT. I recommended to continue current regimen. [...] [facility] [address] [place] [address] Prisca Hughes MD [facility] [address] [facility] [address] Scheduled Referrals Name Type Priority Associated Diagnoses Order Schedule Referral to Hematology and Oncology Outpatient Referral Routine Cancer of prostate with high recurrence risk (stage T3a or Andre 8-10 or PSA > 20) Ordered: 10/07/2016 documented as of this encounter Visit Diagnoses Diagnosis Malignant neoplasm of prostate documented in this encounter Care Teams Landfill Attendant Relationship Specialty Start Date End Date Celio Sanders MD [address] [place] [address] PCP - General Internal Medicine 05/19/16 documented as of this encounter
--- OUTSIDE RECORDS SUMMARY | 2023-12-29 12:12 | XMS_ITS | Encounter Summary ---
Author Organization [facility] [place] [address] Care Team Providers Care Cosmetology Teacher Name Role Phone Celio Sanders MD Primary Care Provider Encounter Details Date Type Department Care Team (Late st Contact Info) Description 09/16/2016 12:00 PM EDT Office Visit Radiation Oncology at [address] [phone] Ronnie Vazquez MD [address] [place] [address] RADIATION ONCOLOGY [place], [place] [address] Cancer of prostate with high recurrence risk [...] Note 09/16/16 Ronnie Vazquez MD Radiation Oncology [facility] [phone] (paging cut roll machine operator) PATIENT IDENTIFICATION NAME: Nain Mckeon [...] [facility] [address] [place] [address] Prisca Hughes MD [facility] DR PHOEBE [facility] [address] documented as of this encounter Visit Diagnoses Diagnosis Cancer of prostate with high recurrence risk (stage T3a or [place] 8-10 or PSA > 20) Malignant neoplasm of prostate documented in this encounter Care Teams Cosmetology Teacher Relationship Specialty Start Date End Date Celio Sanders MD [address] [place] [address] PCP - General Internal Medicine 05/19/16 documented as of this encounter
--- OUTSIDE RECORDS SUMMARY | 2023-12-29 12:12 | XMS_ITS | Encounter Summary ---
Author Organization [facility] Address [facility] [place] [address] Care Team Providers Care Oncology Nurse Name Role Phone Celio Sanders MD Primary Care Provider [phone] Encounter Details Date Type Department Care Team (Late st Contact Info) Description 10/15/2016 12:00 PM EDT Infusion Hematology Oncology at [address] [phone] Malignant neoplasm of prostate Social History Tobacco [...] 12:00 PM EDT Radiation Oncology Nurse Note [place], [place] 10/15/16 11:25 AM Patient states that [...] is not relieved after 8 tabs. Call: [phone] [facility] ([facility]) weekend/holidays: call [facility] ask for the telephonic rn Radiation Oncologist He states that he is [...] 2:00 PM EST Office Visit Dermatology at [address] [place] [address] Prisca Hughes MD [facility] [address] [place] [address] documented as of this encounter Visit Diagnoses [...] mg documented in this encounter Care Teams Oncology Nurse Relationship Specialty Start Date End Date Celio Sanders MD [address] [place] [address] PCP - General Internal Medicine 05/19/16 documented as of this encounter
--- OUTSIDE RECORDS SUMMARY | 2023-12-29 12:12 | XMS_ITS | Encounter Summary ---
Author Organization [facility] Address [facility] [place] [address] Care Team Providers Care Machine Iii Coremaker Name Role Phone Celio Sanders MD Primary Care Provider [phone] Encounter Details Date Type Department Care Team (Late Contact Info) Description 08/04/2016 Orders Only [place] [address] Matthew Pelaez MD [facility] [place] [place] [address] Neoplasm of prostate regional lymph node staging [...] [facility] [address] [place] [address] Prisca Hughes MD [facility] DR [place] [address] documented as of this encounter Visit Diagnoses Diagnosis 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 documented in this encounter Care Teams Machine Iii Coremaker Relationship Specialty Start Date End Date Celio Sanders MD [address] [place] [address] PCP - General Internal Medicine 05/19/16 documented as of this encounter
--- OUTSIDE RECORDS SUMMARY | 2023-12-29 12:13 | XMS_ITS | Encounter Summary ---
Author Organization [facility] Address [facility] [place] [address] Care Team Providers Care Assistant Farm Operations Manager Name Role Phone Celio Sanders MD Primary Care Provider [phone] Encounter Details Date Type Department Care Team (Late st Contact Info) Description 06/29/2016 1:00 PM EDT Office Visit Radiation Oncology at [address] [phone] [facility] Malignant neoplasm of prostate [...] Time: 08:00 Time of Procedure:~ 8:30 Location: [facility] Why gold coils? You and your [...] ibuprofen ] Prescriptions to get filled: At [facility] Prescription for steroid: to prevent [...] the lorazepam.>>>>> Future Appointments: ?? MRI at [facility] : You will receive separate instructions specifically from [facility] concerning your exact arrival time and what you need to do to prepare for this. Date: 07/14 [facility] will give you the exact arrival time. ?? Your planning session (simulation) will be done the following week at [facility]. [Date: 07/21 ] [Time:arrive at 11:00 ] For proper visualization of prostate, it is required that you have a moderately full bladder. This will require you to arrive 30 minutes before scheduled appointment and drink 2 glasses of water upon arrival. There are no restrictions with eating. How to reach us: [facility] [phone] For weekends and after hours: Call [facility] ask for the correctional counselor/case manager radiation oncologist This template was transcribed from [facility] Shared drive: I:\Nursing\\Cold Coils\preparation for cold coil placement documented in this encounter Plan of Treatment Upcoming Encounters Date Type Department Care Team (Late st Contact Info) Description 01/24/2024 2:00 PM EST Office Visit Dermatology at [facility] [address] [place] [address] Prisca Hughes MD [facility] DR [place] [address] documented as of this encounter Visit Diagnoses Diagnosis Malignant neoplasm of prostate documented in this encounter Care Teams Assistant Farm Operations Manager Relationship Specialty Start Date End Date Celio Sanders MD [address] [place] [address] PCP - General Internal Medicine 05/19/16 documented as of this encounter
--- OUTSIDE RECORDS SUMMARY | 2023-12-29 12:13 | XMS_ITS | Encounter Summary ---
Author Organization [facility] [place] [address] Care Team Providers Care Brass Chaser Name Role Phone Celio Sanders MD Primary Care Provider [phone] Encounter Details Date Type Department Care Team (Late st Contact Info) Description 07/07/2016 8:30 AM EDT Procedure visit Radiation Oncology at [address] [phone] Ronnie Vazquez MD [address] [place] [address] DR RADIATION ONCOLOGY [place], [place] [phone] Neoplasm of prostate regional lymph node staging [...] He comes to clinic accompanied by a marine engine driver ( ). [ yes ] if [...] having this procedure done under sedation at [facility] by Dr Pelaez. Patient was instructed tostop taking the cipro and dexamethasone since the procedure was not done today. See Dr Vazquez's note for further details. He has the [facility] phone number and verbalized understanding to ask for the acquisition advisor radiation oncologist if he needs to after [...] marker placement by Dr. Matthew Pelaez at [facility]. documented in this encounter Plan of Treatment Upcoming Encounters Date Type Department Care Team (Late st Contact Info) Description 01/24/2024 2:00 PM EST Office Visit Dermatology at [address] [place] [address] Prisca Hughes MD [facility] DR PHOE[facility] [place] [address] documented as of this encounter Visit Diagnoses Diagnosis 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 documented in this encounter Care Teams Brass Chaser Relationship Specialty Start Date End Date Celio Sanders MD [address] [place] [address] PCP - General Internal Medicine 05/19/16 documented as of this encounter
--- OUTSIDE RECORDS SUMMARY | 2023-12-29 12:13 | XMS_ITS | Encounter Summary ---
Author Organization [facility] Address [facility] [place] [address] Care Team Providers Care Meteorological Engineer Name Role Phone Celio Sanders MD Primary Care Provider [phone] Reason for Visit * Reason Comments Injections Lupron Encounter Details Date Type Department Care Team (Late st Contact Info) Description 05/31/2016 9:30 AM EDT Infusion Hematology Oncology at [address] [phone] Malignant neoplasm of prostate Social [...] 2:00 PM EST Office Visit Dermatology at [facility] [address] [place] [phone] Prisca Hughes MD [facility] DR PHOEBE IBARRA[place] [address] documented as of this encounter Visit Diagnoses [...] Gluteal documented in this encounter Care Teams Meteorological Engineer Relationship Specialty Start Date End Date Celio Sanders MD [address] [place] [address] PCP - General Internal Medicine 05/19/16 documented as of this encounter
--- OUTSIDE RECORDS SUMMARY | 2023-12-29 12:13 | XMS_ITS | Encounter Summary ---
Author Organization [facility] [place] [address] Care Team Providers Care End Matcher Name Role Phone Celio Sanders MD Primary Care Provider [phone] Encounter Details Date Type Department Care Team (Late st Contact Info) Description 05/31/2016 9:00 AM EDT Office Visit Radiation Oncology at [address] [phone] Ronnie Vazquez MD [address] [place] [address] DR RADIATION ONCOLOGY [place], [place] [phone] Cancer of prostate with high recurrence risk (stage T3a or [place] 8-10 or PSA > 20); Neoplasm of [...] ask you to undergo the MRI at [facility] and a CT simulation scan here [facility], typically 1-2 weeks after [...] a prostate MRI which we do at [facility], that allows us to better see [...] within 4-6 weeks of completion radiation. 5. Senior Care Complications: These are more worrisome and are [...] for urination). There may be a slow, half-way decrease in your sexual function as well, [...] Vazquez MD - 05/31/2016 9:00 AM EDT [facility] Radiation Oncology Established Patient Followup Patient Identification: Nain Mckeon is a 65-year-old man previously seen for a recent diagnosis of high risk (PSA 47, [place] 4+4, clinical T2b) prostate cancer, with a clinical right internal iliac/obturator lymph node metastasis. For details regarding our initial appointment, please refer to my consultation note dated 05/19/16. Interval History: Since he was last seen, Mr. Mckeon by Dr. Pham of the Urologic Oncology at [facility] on 05/27[facility]16 for the consideration of prostatectomy [...] have offered to facilitate a referral to [place] for consultation regarding this. I discussed that [...] decide to proceed with proton treatments in [place]. At this time, we will go ahead [...] arrange for MRI of the prostate at [facility] after this, then CT planning simulation scan after this. I anticipate should all go as expected, radiotherapy would begin sometime toward the end ofMay. He understands that fiducial marker implantation and therefore the remainder of the timeline as outlined above may be delayed pending his evaluation in [place]. So, in summary: 1. Referral to [facility] for consideration of proton therapy 2. Lupron today, Casodex for 14 days to prevent flare 3. Fiducial marker implantation in 1 month, to be followed by MRI and CT simulation scan 4. Informed consent obtained for radiotherapy to the pelvis and prostate, 44 fractions to be delivered in [facility]. Simulation scheduled for 07/21, anticipate RT [...] at [facility] [address] [place] [address] Prisca Hughes MD [facility] DR PHOEBE [place] [address] documented as of this encounter Procedures Procedure [...] nodes documented in this encounter Care Teams End Matcher Relationship Specialty Start Date End Date Celio Sanders MD [address] [place] [address] PCP - General Internal Medicine 05/19/16 documented as of this encounter
--- OUTSIDE RECORDS SUMMARY | 2023-12-29 12:13 | XMS_ITS | Encounter Summary ---
Author Organization [facility] Address [facility] [place] [address] Care Team Providers Care Cone Marker Name Role Phone Angelica Mak MD Primary Care Provider [phone] Encounter Details Date Type Department Care Team (Latest Contact Info) Description 05/17/2016 3:39 PM EDT - 05/17/2016 11:59 PM EDT Hospital Encounter Laboratory [facility] [place] [phone] Discharge Disposition: Home Social History Tobacco Use [...] PM EST Office Visit Dermatology at [facility] [address] [place] [address] Prisca Hughes MD [facility] DR PHOEBE [place] [address] documented as of this encounter Procedures Procedure Name Priority Date/Time Associated Diagnosis Comments SURGICAL PATHOLOGY REPORT Routine 05/17/2016 4:06 PM EDT documented in this encounter Results * Surgical Pathology Report (05/17/2016 4:06 PM EDT) Final Diagnosis [id number] ?Location: [facility] The signing pathologist has (i) examined the relevant preparation(s) for the specimen(s) and (ii) rendered or confirmed the diagnosis(es). . ?Surgical Pathology DIAGNOSIS CONSULTATION CASE Extradepartmental number: ??[id number]; collection date, 04/27/2016. A - Prostatic core needle biopsy, right lateral base: ?1. Adenocarcinoma, grade group 3, [place] grade 4+3, ? involving 95% of the [...] right medial apex: ?Adenocarcinoma, grade group 3, [place] grade 3+4, ?involving 25% of the biopsy [...] CONSULTATION CASE A - 24 slide(s) labeled [id number], collection date 04/27/2016. [id number] Report to: [facility] Surgical Pathology Department [facility], [address]nd Floor [address] [place] [address] ??[id number] SPECIMEN PROCESSING [facility] ([facility]) pathology slide(s) are reviewed. ??Refer to Diagnosis and Specimen Submitted for specific case information. For the full text of the [facility] report(s) please refer to Non-DH Documentation Pathology in the electronic health record (eDH). 05/18/2016 2:17 PM EDT [facility] Consult Case 05/17/2016 4:06 PM EDT 05/17/2016 4:06 PM EDT Savanah Sewell MD PATHOLOGY/CYTOLO GY ORDERABLES [facility] [place] [address] documented in this encounter Visit Diagnoses Not on filedocumented in this encounter Care Teams Cone Marker Relationship Specialty Start Date End Date Angelica Mak MD [address] [place] [address] PCP - General 01/27/10 05/18/16 documented as of this encounter
--- OUTSIDE RECORDS SUMMARY | 2023-12-29 12:13 | XMS_ITS | Encounter Summary ---
Author Organization [facility] [place] [address] Care Team Providers Care Child Therapist Name Role Phone Angelica Mak MD Primary Care Provider [phone] Encounter Details Date Type Department Care Team (Late st Contact Info) Description 01/25/2011 1:00 PM EST Office Visit Infectious Disease at [facility] [place] [phone] Jose Adams RN Foreign travel (Primary Dx) [...] Details: Destination countries (list from first to last):[facility], [facility], [facility]; [facility], [facility] Departure date: 04/28/11 Length of [...] or get this done through their primary career transition specialist. Patient advised to call travel clinic if [...] exposure occurs 2. 3. 1. 2. 3. Mongolian Encephalitis 1. 2. 3. 1. 2. 3. 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 documented in this encounter Plan of Treatment Upcoming Encounters Date Type Department Care Team (Late st Contact Info) Description 01/24/2024 2:00 PM EST Office Visit Dermatology at [facility] [address] [place] [address] Prisca Hughes MD [facility] [address] [place] [address] documented as of this encounter Visit Diagnoses Diagnosis Foreign travel- Primary Other specified conditions influencing health status documented in this encounter Care Teams Child Therapist Relationship Specialty Start Date End Date Angelica Mak MD [address] [place] [address] PCP - General 01/27/10 05/18/16 documented as of this encounter
--- OUTSIDE RECORDS SUMMARY | 2023-12-29 12:13 | XMS_ITS | Encounter Summary ---
Author Organization Formerly [facility] Address [facility] [place] [address] Care Team Providers Care Wax Bleacher Name Role Phone Angelica Mak MD Primary Care Provider [phone] Encounter Details Date Type Department Care Team (Latest Contact Info) Description 04/27/2016 - 04/27/2016 11:59 PM EST Hospital Encounter Radiology Library at [facility] [place] [phone] Celio Sanders MD [address] [place] [address] Pain Discharge Disposition: Home Social History Tobacco [...] 2:00 PM EST Office Visit Dermatology at [address] [address] [facility] DR [place]OE[place] [address] documented as of this encounter Procedures Procedure Name Priority Date/Time Associated Diagnosis Comments FILM LIBRARY STORAGE ONLY ULTRASOUND STUDY Routine 04/27/2016 12:00 AM EST Pain documented in this encounter Results * Film Library- Storage Only Ultrasound Study (04/27/2016 12:00 AM EST) Narrative [facility] - 05/14/2016 9:55 AM EST This exam is for storage only and is auto-finalizing. Celio Sanders MD IMG FILM LIBRARY ORD ERABLES [place], [place] documented in this encounter Visit Diagnoses Diagnosis Pain Generalized pain documented in this encounter Care Teams Wax Bleacher Relationship Specialty Start Date End Date Angelica Mak MD [address] [place] [address] PCP - General 11/23/10 3/14/17 documented as of this encounter
--- OUTSIDE RECORDS SUMMARY | 2023-12-29 12:13 | XMS_ITS | Encounter Summary ---
Author Organization [facility] [place] [address] Care Team Providers Care Dobie Worker Name Role Phone Celio Sanders MD Primary Care Provider [phone] Reason for Visit * Consultation (Urgent) - Closed Specialty Diagnoses / Procedures Referred By Tess de la rosa Referred To Contact Urology Diagnoses prostate cancer, new dx Elias Curran MD [address] [place] [address] Nehemiah Pham MD [address] [place] [id number] Referral ID Status Reason Start Date Expiration Date V isits Requested Visits Authorized [id number] Closed Consult, Test & Treat [facility] 05/14/2016 05/14/2017 1 1 Encounter Details Date Type Department Care Team (Late st Contact Info) Description 05/27/2016 3:40 PM EDT Office Visit [place] [address] Nehemiah Pham MD [address] [place] [address] Malignant neoplasm of prostate Social History Tobacco [...] was noted. DIAGNOSIS CONSULTATION CASE Extradepartmental number: ??[id number]; collection date, 04/27/2016. A - Prostatic core [...] medial: ? 1. Adenocarcinoma, grade group 4, Lovilia grade 4+4, ?involving 40% of the biopsy core. ? 2. Perineural invasion identified. E - Prostatic core needle biopsy, right lateral apex: ? Benign prostatic tissue. F - Prostatic core needle biopsy, right medial apex: ? Adenocarcinoma, grade group 3, Lovilia grade 3+4, ? involving 25% of the [...] and straining with nocturia once nightly. Urinary uxmxmox-ae-qyqw = 3. ? Past??Medical??History Past Medical History: [...] factors: +PNI Reviewed at [facility]: Y ?? Imaging Review: I have personally reviewed the images from the CT of the abdomen and pelvis dated 05/12/2016 findings as per HPI of enlarged prostate with suspicious appearing right internal iliac node. Rails Developer image is shown below for reference. ? [...] risk of micrometastatic disease as well w/ Lovilia 8 and PSA 47. I recommended that [...] I recommended that these be done in [facility]. I will send this note [...] [facility] [address] [place] [address] Prisca Hughes MD [facility] [address] [place] [place] [address] documented as of this encounter Visit Diagnoses Diagnosis Malignant neoplasm of prostate documented in this encounter Care Teams Dobie Worker Relationship Specialty Start Date End Date Celio Sanders MD [address] [place] [address] PCP - General Internal Medicine 05/19/16 documented as of this encounter
--- OUTSIDE RECORDS SUMMARY | 2023-12-29 12:13 | XMS_ITS | Encounter Summary ---
Author Organization [facility] Address [facility] [place] [address] Care Team Providers Care Rand Cementer Name Role Phone Celio Sanders MD Primary Care Provider Encounter Details Date Type Department Care Team (Late Contact Info) Description 05/17/2016 External [place] [phone] Provider, Scanning Social History Tobacco Use Types [...] Dermatology at [facility] [address] [place] [address] Prisca Hughes MD [facility] [address] [place] [address] documented as of this encounter Procedures Procedure Name Priority Date/Time Associated Diagnosis Comments SURGICAL PATHOLOGY SCAN Routine 05/17/2016 documented in this encounter Results * Scan Doc: Surgical Pathology (05/17/2016) Savanah Sewell MD MEDIA MGR SCAN E XT ORDR/RSLT documented in this encounter Visit Diagnoses Not on filedocumented in this encounter Care Teams Rand Cementer Relationship Specialty Start Date End Date Celio Sanders MD [address] [place] [address] PCP - General Internal Medicine 05/19/16 documented as of this encounter
--- OUTSIDE RECORDS SUMMARY | 2023-12-29 12:13 | XMS_ITS | Encounter Summary ---
Author Organization [facility] Address [facility] [place] [address] Care Team Providers Care Service Advocate Contact Name Role Phone Celio Sanders MD Primary Care Provider [phone] Encounter Details Date Type Department Care Team (Late Contact Info) Description 06/09/2016 Telephone Radiation Oncology at [address] [address] Harjeet Silvestre Social History Tobacco [...] at [facility] [address] [place] [address] Prisca Hughes MD [facility] [address] [place] [address] documented as of this encounter Visit Diagnoses Not on filedocumented in this encounter Care Teams Service Advocate Contact Relationship Specialty Start Date End Date Celio Sanders MD [address] [place] [address] PCP - General Internal Medicine 05/19/16 documented as of this encounter
--- OUTSIDE RECORDS SUMMARY | 2023-12-29 12:13 | XMS_ITS | Encounter Summary ---
Author Organization [facility] Address [facility] [place] [address] Care Team Providers Care Commercial Lending Vice President Name Role Phone Angelica Mak MD Primary Care Provider [phone] Encounter Details Date Type Department Care Team (Late st Contact Info) Description 05/17/2016 Telephone Radiation Oncology at [address] [address] Harjeet Silvestre Social History Tobacco [...] at [facility] [address] [place] [address] Prisca Hughes MD [facility] DR PHOE[address] [place] [address] documented as of this encounter Visit Diagnoses Not on filedocumented in this encounter Care Teams Commercial Lending Vice President Relationship Specialty Start Date End Date Angelica Mak MD [address] [place] [address] PCP - General 01/27/10 05/18/16 documented as of this encounter
--- OUTSIDE RECORDS SUMMARY | 2023-12-29 12:13 | XMS_ITS | Encounter Summary ---
Author Organization [facility] [place] [address] Care Team Providers Care Career Education Teacher Name Role Phone Celio Sanders MD Primary Care Provider [phone] Reason for Visit * Consultation (Routine) - Closed Specialty Diagnoses / Procedures Referred By Tess de la rosa Referred To Contact Radiation Oncology Diagnoses Prostate CA Procedures Treatment Options Elias Curran MD [address] [place] [address] Ronnie Vazquez MD [address] [place] [address] [place] [address] Referral ID Status Reason Start Date Expiration Date Visits Re quested Visits Authorized [id number] Closed 05/14/2016 05/14/2017 1 1 Encounter Details Date Type Department Care Team (Late st Contact Info) Description 05/19/2016 1:30 PM EDT Office Visit Radiation Oncology at [address] [phone] Ronnie Vazquez MD [address] [place] [address] [place] [address] Cancer of prostate with high recurrence risk (stage T3a or Quitman 8-10 or PSA > 20) Social History [...] to undergo the MRI at [facility] and a CT simulation scan [...] MRI which we do at [facility], that allows us to better [...] within 4-6 weeks of completion radiation. 6. Halfway Complications: These are more worrisome and are [...] for urination). There may be a slow, alf decrease in your sexual function as well, [...] do not hesitate to call me at [phone] with any other questions or concerns you have. IfI am not here, one of our radiation oncology nurses can assist you or help you get in touch with me. A Radiation Oncology doctor is also television station manager after our normal hours and on weekends for urgent questions or concerns related to radiation treatments that can not wait until normal business hours. To reach the on-call doctor after-hours, just call and have the mixing plant operator page the Radiation Oncologist television station manager. And, as always, if you experience any [...] injury 7. Uncontrollable bleeding Ronnie Trevizo MD Vocational Psychologistpattern checker Radiation Oncology [facility] documented in this encounter Progress Notes [...] na (Yes/No) Is patient coming from a Retirement Facility? (Yes/No) no (If yes, patient needs to be accompanied by a caregiver for entire Exam and transport arrangements.) LEARNING ASSESSMENT REVIEWED: yes ADVANCED DIRECTIVE: PAIN ASSESSMENT: [0] out of 10 *eD-H Adult PCS Flow Sheet if 4 or above SOCIAL ASSESSMENT: See EDH social assessment information entered. Support Systems: live with Yaneth Barriers to treatment: none Referrals/Interventions: flow worker on day per routine. RADIATION SPECIFIC TEACHING:Will provide the following information on simulation day [facility] Site specific teaching :pelvis PLAN: Per Dr Vazquez's note * Ronnie Vazquez MD - 05/19/2016 9:00 AM EDT Images from the original note were not included. Radiation Oncology Consult [place] [address] Reason for Consultation: at least Group IIB, [...] Curran performed ultrasound-guided prostate biopsy that showed Quitman 4+4 disease in 2 cores and Quitman 4+3 disease in 3 additional cores. All [...] and straining with nocturia once nightly. Urinary pzxbypm-vu-cpve = 3. A comprehensive 14 point review [...] CHOLECYSTECTOMY, LAPAROSCOPIC ??? PROSTATE BIOPSY Medications 05/19/16 5494 Medication Sig Taking? 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 Estimated travel time by the patient to [facility] is 20 minutes, one-way. Smoking: never [...] Other prognostic factors: +PNI Review[place] [facility]: Y Imaging Review: I have personally reviewed the images from the CT of the abdomen and pelvis dated 05/12/2016 findings as per HPI of enlarged prostate with suspicious appearing right internal iliac node. Polishing Pad Mounter image is shown below for reference. Assessment: Nain Mckeon is a 65-year-old man with at least high risk prostate cancer (Quitman 8, PSA 47.5, clinical T2b). He has [...] Instead, we will await results of Mr. Mkceon's consultation with Dr. Pham and proceed accordingly. [...] this visit was spent counseling the patient xxmm-sx-pocu in reviewing the workup of his diagnosis, [...] at [facility] [address] [place] [address] Prisca Hughes MD [facility] [place] [address] documented as of this encounter Visit Diagnoses Diagnosis Cancer of prostate with high recurrence risk (stage T3a or Quitman 8-10 or PSA > 20) Malignant neoplasm of prostate documented in this encounter Care Teams Career Education Teacher Relationship Specialty Start Date End Date Celio Sanders MD [address] [place] [address] PCP - General Internal Medicine 05/19/16 documented as of this encounter
--- OUTSIDE RECORDS SUMMARY | 2023-12-29 12:13 | XMS_ITS | Encounter Summary ---
Author Organization [facility] [place] [address] Care Team Providers Care Shift Coordinator Name Role Phone Celio Sanders MD Primary Care Provider [phone] Encounter Details Date Type Department Care Team (Late Contact Info) Description 06/03/2016 Telephone Radiation Oncology at [address] [address] Harjeet Silvestre Social History [...] [facility] [address] [place] [address] Prisca Hughes MD [facility] [address] [place] [address] documented as of this encounter Visit Diagnoses Not on filedocumented in this encounter Care Teams Shift Coordinator Relationship Specialty Start Date End Date Celio Sanders MD [address] [place] [address] PCP - General Internal Medicine 05/19/16 documented as of this encounter
--- OUTSIDE RECORDS SUMMARY | 2023-12-29 12:13 | XMS_ITS | Encounter Summary ---
Author Organization [facility] Address [facility] [place] [address] Care Team Providers Care Manager Special Events Name Role Phone Angelica Mak MD Primary Care Provider [phone] Encounter Details Date Type Department Care Team (Latest Contact Info) Description 03/30/2016 - 03/30/2016 11:59 PM EST Hospital Encounter Radiology Library at [facility] [place] [phone] Celio Sanders MD [address] [place] [address] Pain Discharge Disposition: Home Social History Tobacco [...] 2:00 PM EST Office Visit Dermatology at [address] [address] Prisca Hughes MD [facility] [address] [place] [address] documented as of this encounter Procedures Procedure Name Priority Date/Time Associated Diagnosis Comments FILM LIBRARY STORAGE ONLY NUCLEAR MEDICINE Routine 03/30/2016 12:00 AM EST Pain documented in this encounter Results * Film Library- Storage Only nuclear medicine (03/30/2016 12:00 AM EST) Narrative [facility] - 05/14/2016 9:52 AM EST This exam is for storage only and is auto-finalizing. Celio Sanders MD IMG FILM LIBRARY ORD ERABLES [place], [place] documented in this encounter Visit Diagnoses Diagnosis Pain Generalized pain documented in this encounter Care Teams Manager Special Events Relationship Specialty Start Date End Date Angelica Mak MD [address] [place] [address] PCP - General 11/23/10 3/14/17 documented as of this encounter
--- OUTSIDE RECORDS SUMMARY | 2023-12-29 12:13 | XMS_ITS | Encounter Summary ---
Author Organization [facility] [place] [address] Care Team Providers Care Parlor Chaperone Name Role Phone Angelica Mak MD Primary Care Provider [phone] Encounter Details Date Type Department Care Team (Late Contact Info) Description 05/18/2016 Telephone Radiation Oncology at [address] [phone] Harjeet Silvestre Social History Tobacco [...] EST Office Visit Dermatology at [facility] [address] [place] [address] Prisca Hughes MD [facility] [address] [place] [address] documented as of this encounter Visit Diagnoses Not on filedocumented in this encounter Care Teams Parlor Chaperone Relationship Specialty Start Date End Date Angelica Mak MD [address] [place] [address] PCP - General 01/27/10 05/18/16 documented as of this encounter
--- OUTSIDE RECORDS SUMMARY | 2023-12-29 12:13 | XMS_ITS | Encounter Summary ---
Author Organization [facility] Address [facility] [place] [address] Care Team Providers Care Consulting Project Director Name Role Phone Angelica Mak MD Primary Care Provider [phone] Encounter Details Date Type Department Care Team (Latest Contact Info) Description 05/12/2016 - 05/12/2016 11:59 PM EST Hospital Encounter Radiology Library at [facility] [place] [phone] Celio Sanders MD [address] [place] [address] Pain Discharge Disposition: Home Social History Tobacco [...] Dermatology at [facility] [address] [place] [address] Prisca Hughes MD [facility] [address] PHOE[address] [place] [address] documented as of this encounter Procedures Procedure [...] Sanders MD IMG FILM LIBRARY ORD ERABLES [facility] * SCAN DOC: CT SCAN (05/12/2016 12:00 [...] pain documented in this encounter Care Teams Consulting Project Director Relationship Specialty Start Date End Date Angelica Mak MD [address] [place] [address] PCP - General 01/27/10 05/18/16 documented as of this encounter
--- OUTSIDE RECORDS SUMMARY | 2023-12-29 12:13 | XMS_ITS | Encounter Summary ---
Author Organization [facility] Address [facility] [place] [address] Care Team Providers Care Bed And Breakfast Cook Name Role Phone Celio Sanders MD Primary Care Provider [phone] Encounter Details Date Type Department Care Team (Late Contact Info) Description 05/28/2016 Telephone Radiation Oncology at [address] [phone] Harjeet Silvestre Social History [...] — [place] [address] [place] [address] Prisca Hughes MD [facility] [address] [place] [address] documented as of this encounter Visit Diagnoses Not on filedocumented in this encounter Care Teams Bed And Breakfast Cook Relationship Specialty Start Date End Date Celio Sanders MD [address] [place] [address] PCP - General Internal Medicine 05/19/16 documented as of this encounter
== END 2023-12-29 12:05 | disposition home or self-care (01) ==
LOC: LBN 12:04
PROVIDERS: PCP Family Medicine; Visit Provider Nurse Practitioner Gerontology
DX: R39.9 Unspecified symptoms and signs involving the genitourinary system (principal); N39.0 Urinary tract infection, site not specified; C61 Malignant neoplasm of prostate; R33.8 Other retention of urine
CPT/HCPCS: 87086

== ENCOUNTER → 2024-01-05 10:41 | Outpatient (BNVA) | payer MEDICARE, OTHER, SELFPAY | PROVIDERS: PCP Family Medicine; Referring Provider Family Medicine; Visit Provider Urology | DX: N48.89 Other specified disorders of penis (principal) | CPT/HCPCS: 99442 ==

== ENCOUNTER → 2024-01-17 07:55 | Outpatient (BNVA) | payer MEDICARE, OTHER, SELFPAY | PROVIDERS: PCP Family Medicine; Referring Provider Family Medicine; Visit Provider Urology | DX: Z46.6 Encounter for fitting and adjustment of urinary device (principal); R33.8 Other retention of urine | CPT/HCPCS: 51705 ==

== ENCOUNTER 2024-01-19 16:04 | Outpatient (CLI) | payer MEDICARE, OTHER, SELFPAY ==
--- OUTSIDE RECORDS SUMMARY | 2024-01-19 16:10 | XMS_ITS ---
Author Organization [facility] Address [address] [place] [phone] Care Team Providers Care Head Of Insight Name Role Phone Shakila Hicks Primary Care Provider REASON FOR VISIT med f/u, have a supra pubic catheter now 2 weeks ago Medications Medication SIG (Take, Route, Frequency, Duration) Notes Start Date End Date Status KlonoPIN 0.5 MG 1/2 tablet Orally at bedtime for 30 days take for anxiety 08/09/2023 Active PRAVASTATIN 40 40 MG 1 tablet Orally Once a day for 90 day(s) Active Multivitamin - 1 tablet Orally Once a day for 30 day(s) Active Levothyroxine Sodium 75 MCG 1 tablet in the morning on an empty stomach Orally Once a day for 30 day(s) Active lamoTRIgine 150 MG 1 tablet Orally twice a day for 30 days 12/08/2023 Active VITAMIN D Unknown Vitamin B Complex 100 Unknown Ibuprofen 200 MG 1 tablet with food or milk as needed Orally Three times a day Active DULoxetine HCl 20 MG 1 capsule Orally Once a day for 30 days decrease in dose 11/09/2023 Active Vitamin E 400 UNIT 1 capsule Orally Once a day for 30 day(s) Unknown Turmeric 450 MG 2 capsules Orally Once a day Active Encounters Encounter Location Date Provider Diagnosis [address] [id number] 01/10/2024 Shakila Hicks Bipolar 2 disorder F31.81 Assessments Encounter Date Diagnosis (ICD Code) Assessment Notes Treatment Notes Treatment Clinical Notes 01/10/2024 Bipolar 2 disorder (ICD-10 - F31.81) recent manic episode 01/10/2024 Other Documentation assistance provided by micah Pacheco for Shakila Hicks MSN LIBRARIAN ASSISTANT-C REHAB NURSING TECH on 01/10/2024. I have read the medical record and [...] Assessment Notes Other Documentation assistance provided by luz maria Pachecoing for Shakila Hicks MSN LIBRARIAN ASSISTANT-C REHAB NURSING TECH on 01/10/2024. I have read the medical record and scribe entries. I approve the care and treatment provided to this patient as recorded by the scribe. Next Appt Details Follow Up: 4 Weeks, Reason: med f/u Provider Name:Shakila landa, 02/14/2024 09:30:00 AM, [address] [place] [address], [phone], Progress Notes * Nain LIPSCOMBDOB:1950 (73 yo M)Acc No.[id number]:01/10/2024 PM FU Patient:?Nain LIPSCOMB Provider:?Shakila Hicks PMHNP-BC :1950???Age:73 Y???Sex:Male Greg e:01/10/2024 Address:[address] [place], [place] [id number] Subjective: * Chief Complaints: * ???Med f/uhave a supra pubi c catheter now 2 weeks ago * HPI: ???INTERIM HISTORY:?*?Pt is a 73 y/o male who has a Hx of Bipolar II disorder is seen for med f/u via telephone. ?The client is doing well today. ?He continues to take Cymbalta 20 mg and Lamictal 150 mgonce daily. Denies any side effects or adverse effects. He denies anydepression. The client is sleeping better. Denies any brayan or hypomania. Hereports an episode of nausea yesterday. He client recently underwent a surgicalprocedure to place a supra catheter due to inability to void himself with urinaryretention. Mentions has caused some depression after the general anaesthesia. Hestates that Cymbalta 20 mg has helped with his depression. He is back toplaying [employer] ball but feels tired after an hour. 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 He continues in Individualand couple counselling with Roxana Phelps..?Was hospitalized [place] [place]. ?Brayan at [facility] 2016 ?Depression at [facility] 2019.? Therapy: Individual and couples counseling with Roxana, working on EMDR with Roxana Suicide Attempts: Purchased a gun in 2019 and planned to shoot himself. Did not follow through with this plan and was admitted to [facility]. Violence History: Patient can be verbally [...] Remeron, Tricyclics, Olanzapine, Abilify, Vraylar, Rexulti, Geodon, [place], Risperidone, Lamictal, Clonazepam Substance use history: Denies [...] with 1 dogs in his house in [place], [place]. , Evita visits him during the day Employment: retired. Psychiatric ROS Sleep: Sleeping through the night presently.? Energy: Low since surgical proceudre.? Mood: little depressed.? Appetite: okay Weight: no concerns Concentration/Focus: improvement in attention, able to read, focus is good Memory: good Anxiety/panic: none reported Agitation:none reported today, but can be very irritable when manic Stressors: Relationship stressors, Recurrent prostate cancer, urinary retention. Behavior/Self-injurious behavior: no history of cutting. Activity level:walking his dog; is playing pickleball.? Brayan: no evidence of brayan or hypomania today Psychosis: Denies AH and VH Constitutional and neurological exam: Had developed tardive dyskinesia from past meds. No report of concussions or head injury. No history of seizures Gait and station: No concerns Abnormal movements: None reported Tics: none reported. * Medical History:? * Surgical History:?Radical Pr ostatectomy * Hospitalization/Major Diagno stic Procedure:?Depression- [facility] 2004Mania- [facility] 2017[place]- [place] 2019 * Family History:?Mother: dece ased 80 [...] STATES AND COUNTRIES YOU HAVE LIVED IN?: [place], [place], [place], [place]. ?WHO WAS YOUR PREVIOUS HEALTH CARE PROVIDER?: [facility]. ?WHO ARE YOUR SPECIALITY PHYSICIANS?: Dr [...] Objective: * Vitals:? * Examination: ???Treatment Plans: ?APPEARANCE:?73 y/o white, Thai-speaking male,telephone appointment.?ATTITUDE:?cooperative.?PSYCHOMOTOR ACTIVITY:?within normal range.?ABNORMAL BODY MOVEMENTS:?none.?ATTENTION:?improved.?DEGREE OF AWARENESS OF SURROUNDINGS:?within normal limits.?ORIENTATION:?Person, Place, Time.?AFFECT:?appropriate.?MOOD:?A little depressed since general anesthesia for recent surgical proceedure .?SPEECH:?normal/R/V/R.?INSIGHT:?good.?JUDGEMENT:?good.?THOUGHT PROCESS:?Intact, organized and goal orientated.?THOUGHT CONTENT:?unremarkable.?PERCEPTUAL DISORDERS:?no [...] 81 (Primary)???Notes :recent manic episode??? The cl recently underwent a surgical proceedure to place a supra pubic catheter due to inability to void himself. with urinary retention??Has caused some depression after the general anesthesia?? Feels the duloxetine 20mg has helped with his depression, but does have SAD. Takes the lorazepam rarely .?No evidence of brayan or hypomania today. Continues in individual and couple counseling with Roxana Phelps.. Is back to playing [employer] ball, but feels tired after an hour. 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 Plan: * Treatment: * Procedure Codes:?G0467 [facility] VISIT ESTABLISHED PATIENT * Preventive Medicine:? [...] to HX of Bipolar I. * Follow Up:?4 Weeks (Reason: med f/u) * * Sign off status: Completed true * Provider:?NEFTALI Martínez D ate:?01/10/2024 Generated for Arturo macedo/Lev/eTransmitting on:?01/19/2024 04:10 PM EST History and Physical Notes * HPI (History of Present Illness) Category Sub-Category Detail Notes INTERIM HISTORY * Pt is a 73 y/o male who has a Hx of Bipolar II disorder is seen for med f/u via telephone. The client is doing well today. He continues to take Cymbalta 20 mg and Lamictal 150 mg once daily. Denies any side effects or adverse effects. He denies any depression. The client is sleeping better. Denies any brayan or hypomania. He reports an episode of nausea yesterday. He client recently underwent a surgical procedure to place a supra catheter due to inability to void himself with urinary retention. Mentions has caused some depression after the general anaesthesia. He states that Cymbalta 20 mg has helped with his depression. He is back to playing pickle ball but feels tired after an hour. 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 He continues in Individual and couple counselling with Roxana Phelps. Was hospitalized [facility] in [facility] for dep ression. Brayan at [facility] 2017 Depression at [facility] 2019 Examination Category Sub-Category Detail Notes Treatment Plans APPEARANCE: 73 y/o white, En glish-speaking male,telephone appointment ATTITUDE: cooperative PSYCHOMOTOR ACTIVITY: within normal rang e ABNORMAL BODY MOVEMENTS: none ATTENTION: improved DEGREE OF AWARENESS OF SURROUNDINGS: wit hin normal limits ORIENTATION: Person, Place, Time AFFECT: appropriate MOOD: A little depressed s karlos general anesthesia for recent surgical proceedure SPEECH: normal/R/V/R INSIGHT: good JUDGEMENT: good THOUGHT [...]
--- OUTSIDE RECORDS SUMMARY | 2024-01-19 16:11 | XMS_ITS ---
Author Organization [facility] Address [address] [place] [phone] Care Team Providers Care Solar Photovoltaic Electrician Name Role Phone Shakila Hicks Primary Care [...] Active Encounters Encounter Location Date Provider Diagnosis [address] [phone] 12/08/2023 Shakila Hicks Plan Of Treatment Medication [...] day Next Appt Details Provider Name:Shakila landa, 02/14/2024 09:30:00 AM, [address] [place] [address], [phone], Progress Notes * Nain LIPSCOMBDOB:1950 (73 yo M)Acc No.[id number]:12/08/2023 Patient:JessyRUEL Nain Rosenberg :1950???Age:73 Y???Sex:Male Address:[address] [place], [place] [address], [place] [address] * Refills? Refill lamoTRIgine Tablet, 150 MG, Orally, 60 Tablet, 2 tablet, Once a day, 30 days, Refills=5 Start lamoTRIgine Tablet, 150 MG, Orally, 60 Tablet, 1 tablet, twice a day, 30 days, Refills=5 * true * Date:? Generated for Arturo macedo/Lev/Michaela on:?01/19/2024 04:10 PM EST
--- OUTSIDE RECORDS SUMMARY | 2024-01-19 16:11 | XMS_ITS ---
Author Organization [facility] Address [address] [place] [phone] Care Team Providers Care Leather Colorer Name Role Phone Shakila Hicks Primary Care [...] Active Encounters Encounter Location Date Provider Diagnosis [address] [phone] 12/07/2023 Shakila Hicks Bipolar 2 disorder F31.81 Assessments Encounter Date Diagnosis (ICD Code) Assessment Notes Treatment Notes Treatment Clinical Notes 12/07/2023 Bipolar 2 disorder (ICD-10 - F31.81) recent manic episode 12/07/2023 Other Documentation assistance provided by micah Pacheco for Shakila Hicks MSN OPTICAL MECHANIC APPRENTICE-C FARM MECHANIC on 12/07/2023. I have read the medical [...] Maia Gaytan, mariellaibing for Shakila Hicks MSN OPTICAL MECHANIC APPRENTICE-C FARM MECHANIC on 12/07/2023. I have read the medical record and scribe entries. I approve the care and treatment provided to this patient as recorded by the scribe. Next Appt Details Follow Up: 6 Weeks, Reason: med f/u Provider Name:Shakila landa, 02/14/2024 09:30:00 AM, [address] [place] [address], [phone], Progress Notes * Nain LIPSCOMBDOB:1950 (73 yo M)Acc No.[id number]:12/07/2023 PMM Phone Patient:?Nain LIPSCOMB Provider:?Shakila Hicks PMHNP-BC :1950???Age:73 Y???Sex:Male Greg e:12/07/2023 Address:[address] [place], [place] [id number] Subjective: * Chief Complaints: * ???Med f/udoing [...] through texting. ?The client is back to [employer], still unable to swim due to self-catheterization. 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 ?Brayan at [facility] 2016 ?Depression at [facility] 2019.? Therapy: Individual and couples counseling with Roxana, working on EMDR with Roxana Suicide Attempts: Purchased a gun in 2019 and planned to shoot himself. Did not follow through with this plan and was admitted to [facility]. Violence History: Patient can be [...] Remeron, Tricyclics, Olanzapine, Abilify, Vraylar, Rexulti, Geodon, [place], Risperidone, Lamictal, Clonazepam Substance use history: Denies [...] with 1 dogs in his house in [place], [place]. 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 Brayan: no evidence of brayan [...] Pr ostatectomy * Hospitalization/Major Diagno stic Procedure:?Depression- [facility] 2004[place]- [facility] 2016Depression- [place] 2019 * Family History:?Mother: dece ased 80 [...] ?WHO WAS YOUR PREVIOUS HEALTH CARE PROVIDER?: [facility]. ?WHO ARE YOUR SPECIALITY PHYSICIANS?: Dr [...] * Examination: ???Treatment Plans: ?APPEARANCE:?72 y/o white, Indonesian-speaking male,nails hair dressed in polo? shirt and [...] with Roxana Phelps.. Is back to playing [employer] ball. 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 Plan: * Treatment: * Procedure Codes:?G0467 COUNT INCLUDES THE [facility] VISIT ESTABLISHED PATIENT * Preventive Medicine:? [...] Martínez D ate:?12/07/2023 Generated for Arturo macedo/Lev/Michaela on:?01/19/2024 04:10 PM EST History and Physical [...] texting. The client is back to play pickle ball, still unable to swim due to self-catheterization. 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 Was hospitalized [facility] in 2004 for dep ression. [facility] at [facility] [address] [facility] Examination Category Sub-Category Detail Notes Treatment [...]
--- OUTSIDE RECORDS SUMMARY | 2024-01-19 16:11 | XMS_ITS | Patient Health Record ---
Author Organization [facility] Address [address] [place] [id number] Care Team Providers Care Dissolver Operator Name Role Phone Shakila Hicks Primary Care Provider [phone] Allergies No Known Allergies Reason For Referral Reason referred to [facility] by Shakila Hicks due to his counselor retiring Diagnosis 1 Bipolar 2 disorder ( F31.81) Diagnosis 2 Bipolar disorder, cu rrent episode manic without psychotic features, moderate (F31.12) Diagnosis 3 Marital problems (Z6 3.0) Referral Organization [facility] Referring Provider First Name Shakila Referring Provider Last Name Kurt Referring Provider Speciality Nurse Prac titioner Referred Provider Specialty Licensed Clmonster duarte Gut Puller Clinical Notes Indy Simpson 08/04 08:59:54 AM >Spoke with patient added, to waitlist. Prefers early afternoons in [place]. No preference on clinician. Referral Priority Routine Medications Medication SIG (Take, Route, Frequency, Duration) Notes Start Date End Date Status Turmeric 450 MG 2 capsules Orally Once a day Active VITAMIN D Unknown Vitamin B Complex 100 Unknown KlonoPIN 0.5 MG 1/2 tablet Orally at [...] Once a day for 30 day(s) Unknown PRAVASTATIN 40 40 MG 1 tablet Orally Once a day for 90 day(s) Active Multivitamin - 1 tablet Orally Once a day for 30 day(s) Active Levothyroxine Sodium 75 MCG 1 tablet in the morning on an empty stomach Orally Once a day for 30 day(s) Active lamoTRIgine 150 MG 1 tablet Orally twice a day for 30 days 12/08/2023 Active Immunizations Vaccine Route Administration Date Status Comme nts COVID-19 Moderna 20057 Unknown 05/02/2020 Administered COVID-19 Moderna 78625 Unknown 05/30/2020 Administered COVID-19 Moderna 82351 Unknown 01/07/2021 Administered COVID-19 Moderna 09494 Unknown 06/23/2021 Administered Hepatitis A Unknown 01/25/2011 Administered Influenza Offsite [facility] Purch ased Vaccine 17673 Unknown 12/02/2020 Administered Pneumococcal Unknown 05/24/2014 Administered Prevnar PCV 13 [facility] 18644 Unknown 06/19/2015 Administer ed Td Unknown 07/26/2017 Administered TDAP Unknown 01/25/2007 Administered Yellow Fever Unknown 01/25/2011 Administered Zostavax [facility] 89722 Unknown 09/21/2011 Administered Social History Tobacco Use: Social History Observation Description Date Details (start date - stop date) Former Smoker NA - NA SMOKING STATUS: Question Answer Notes Are you a: Former smoker Are you a: Former smoker Problems Problem Type SNOMED Code ICD Code Onset Dates Problem Status W/U Status Risk Notes Problem 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 (814793059) 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) Active confirmed Problem Obesity (501986611) Obesity (E66.9) Active confirmed Problem Hypothyroidism (05541494) Hypothyroidism (E03.9) Active confirmed Problem Bipolar affective disorder, currently manic, moderate (991605898) Bipolar disorder, current episode manic without psychotic features, moderate (F31.12) Active confirmed Problem Insomnia (989331343) Insomnia (G47.00) Active confirmed Problem Psoriasis (5152526) Psoriasis (L40.9) Active confirmed Problem Malignant tumor of prostate (440187043) Prostate cancer (C61) Active confirmed Problem Bipolar 2 disorder (46853197) Bipolar 2 disorder (F31.81) Active confirmed recent manic episode Problem Marital problems (93978762) Marital problems (Z63.0) Active confirmed Problem Tardive dyskinesia (425425817) Tardive dyskinesia (G24.01) Active confirmed Problem Hyperlipidaemia (93182924) HLD (hyperlipidemia) (E78.5) Active confirmed Problem Prediabetes (730914773) Prediabetes (R73.03) Active confirmed Vital Signs Blood pressure diastolic 80 mmHg 09/22/2023 Height 63 in 09/22/2023 Blood pressure systolic 130 mmHg 09/22/2023 Encounters Encounter Location Date Provider Diagnosis [address] [id number] 02/08/2023 Jhaveri Brodzinski Bipolar 2 disorder F31.[address] [id number] 03/22/2023 Jhaveri Brodzinski Bipolar 2 disorder F31.[address] [id number] 03/30/2023 Jhaveri Brodzinski Bipolar 2 disorder F31.[address] [id number] 04/01/2023 Jhaveri Brodzinski Bipolar 2 disorder F31.[address] [id number] 04/05/2023 Jhaveri Brodzinski Bipolar disorder, current episode manic without psychotic features, moderate F31.[address] [id number] 04/11/2023 Jhaveri Brodzinski Bipolar 2 disorder F31.[address] [id number] 04/14/2023 Jhaveri Brodzinski Bipolar 2 disorder F31.[address] [id number] 04/19/2023 Jhaveri Brodzinski Bipolar 2 disorder F31.[address] [id number] 04/25/2023 Jhaveri Brodzinski Bipolar disorder, current episode manic without psychotic features, moderate F31.[address] [id number] 04/26/2023 Jhaveri Brodzinski Bipolar 2 disorder F31.[address] [id number] 05/02/2023 Jhaveri Brodzinski Bipolar 2 disorder F31.[address] [id number] 05/25/2023 Jhaveri Brodzinski Bipolar 2 disorder F31.[address], [place] [id number] 06/07/2023 Jhaveri Brodzinski Bipolar 2 disorder F31.[address], [place] [id number] 06/22/2023 Jhaveri Brodzinski Bipolar 2 disorder F31.[address], [place] [id number] 06/28/2023 Jhaveri Brodzinski Bipolar 2 disorder F31.[address], [place] [id number] 07/05/2023 Jhaveri Brodzinski Bipolar 2 disorder F31.[address], [place] [id number] 07/07/2023 Jhaveri Brodzinski Bipolar 2 disorder F31.[address], [place] [id number] 07/14/2023 Jhaveri Brodzinski Bipolar 2 disorder F31.[address], [place] [id number] 07/21/2023 Jhaveri Brodzinski Bipolar 2 disorder F31.[address], [place] [id number] 08/04/2023 Jhaveri Brodzinski Bipolar 2 disorder F31.[address], [place] [id number] 09/01/2023 Jhaveri Brodzinski Bipolar 2 disorder F31.[address], [place] [id number] 09/22/2023 Jhaveri Brodzinski Bipolar 2 disorder F31.[address], [place] [id number] 11/08/2023 Jhaveri Brodzinski Bipolar 2 disorder F31.[address], [place] [id number] 12/07/2023 Jhaveri Brodzinski Bipolar 2 disorder F31.[address], [place] [id number] 01/10/2024 Jhaveri Brodzinski Bipolar 2 disorder F31.[address], [place] [id number] 02/23/2023 Jhaveri Brodzinski [place] [id number] [facility] [place] [id number] 03/28/2023 Jhaveri Brodzinski [facility] [address] [facility] [place] [address] 03/30/2023 Jhaveri Brodzinski Bipolar 2 disorder F31.81 [place] [address] [facility], [place] [id number] 03/31/2023 Jhaveri Brodzinski [facility] [address] [place] [address], [place] [id number] 04/01/2023 Jhaveri Brodzinski [address], [place] [id number] 04/01/2023 Jhaveri Brodzinski [address], [place] [id number] 04/02/2023 Jhaveri Brodzinski [address], [place] [id number] 04/04/2023 Jhaveri Brodzinski [address], [place] [id number] 04/04/2023 Jhaveri Brodzinski [address], [place] [id number] 04/06/2023 Jhaveri Brodzinski [address], [place] [id number] 04/13/2023 Jhaveri Brodzinski [facility] [address] [facility] [place] [address] 04/15/2023 Jhaveri Brodzinski [address] [place] [address] 05/09/2023 Jhaveri Brodzinski [place] [address] [facility], [place] [id number] 06/08/2023 Jhaveri Brodzinski Bipolar 2 disorder F31.81 [place] [address] [facility], [place] [id number] 06/09/2023 Jhaveri Brodzinski [place] [address] [facility], [place] [id number] 06/27/2023 Jhaveri Brodzinski Bipolar 2 disorder F31.[address], [place] [id number] 07/04/2023 Jhaveri Rebeccazinski [facility] [address] [facility] [place] [address] 07/12/2023 Jhaveri Brodzinski [address], [place] [id number] 08/04/2023 Jhaveri Rebeccazinski [address], [place] [id number] 08/05/2023 Jhaveri Brolucizinski [address], [place] [id number] 08/09/2023 Jhaveri Kurt Bipolar 2 disorder F31.[address], [place] [id number] 11/08/2023 Jhaveri Rebeccazinski [address], [place] [id number] 11/09/2023 Jhaverigrant Hicks Bipolar 2 disorder F31.[address], [place] [id number] 12/02/2023 Jhaveri Rebeccazinski [address], [place] [id number] 12/06/2023 Jhaveri Rebeccazinski [address], [place] [id number] 12/08/2023 Shakila Hicks Assessments Encounter Date Diagnosis (ICD Code) Assessment [...] (ICD-10 - F31.81) recent manic episode 01/10/2024 Bipolar 2 disorder (ICD-10 - F31.81) recent manic episode 04/05/2023 Other Documentation assistance provided by micah Colbert for [facility]ila Hicks [facility] TECHNICIAN on 04/05/2023. I have read the medical record and scribe entries. I approve the care and treatment provided to this patient as recorded by the scribe 04/05/2023 Other Documentation assistance provided by micah Colbert for Shakila Hicks [facility] ENVIRONMENTAL SERVICES TECHNICIAN on 04/05/2023. I have read the medical record and scribe entries. I approve the care and treatment provided to this patient as recorded by the scribe 07/12/2023 Other Documentation assistance provided by micah Augustin for Shakila Hicks [facility] ENVIRONMENTAL SERVICES TECHNICIAN on 07/12/2023. I have read the medical [...] Other Documentation assistance provided by micah Colbert [facility] ENVIRONMENTAL SERVICES TECHNICIAN on 02/08/2023. I have read the medical [...] by micah Colbert for Shakila Hicks [employer] SALES SUPERVISOR-C ENVIRONMENTAL SERVICES TECHNICIAN on 03/22/2023. I have read the medical [...] by micah Colbert for Shakila Hicks [employer] ESTATE SALES SUPERVISOR-C ENVIRONMENTAL SERVICES TECHNICIAN on 03/30/2023. I have read the medical [...] returns 04/05/2023 Other Documentation assistance provided by Nora Lester, micah for Shakila Hicks MSN REAL ESTATE SALES SUPERVISOR-C ENVIRONMENTAL SERVICES TECHNICIAN on 04/05/2023. I have read the medical [...] provided by micah Colbert for Shakila Hicks [facility] REAL ESTATE SALES SUPERVISOR-C ENVIRONMENTAL SERVICES TECHNICIAN on 04/11/2023. I have read the medical [...] counselingTry to walk the dog dailyEngage in [employer] twice weekly 04/14/2023 Other Documentation assistance provided by luz maria Colberting for Shakila Hicks [employer]STATE SALES SUPERVISOR-C ENVIRONMENTAL SERVICES TECHNICIAN on 04/14/2023. I have read the medical [...] and anxietyContinue individual and couples counseling with Adrianaourchinmay journaling so he can process his concerns with RhondaContinue walking with his dogContinue playing [employer] RewardsWill touch base with him on 04/19 to reassess his mood before he picks a rental car on all back this clinician after he speaks to his Urologist today 04/19/2023 Other Documentation assistance provided by luz maria Colberting for Shakila Hicks [employer]STATE SALES SUPERVISOR-C ENVIRONMENTAL SERVICES TECHNICIAN on 04/19/2023. I have read the medical [...] mood is stableContinue daily walks and playing pickSensbeatEncouraged going to [place] for swimmingCan call Rosy [phone] Evita advised, drive to [place] or his appointment to [employer] or [employer] on weekend, so he is comfortable. Reschedule his rental car appointment to next week 04/25/2023 Other Documentation assistance provided by micah Colbert for Shakila Hicks [employer] REAL [employer]STATE SALES SUPERVISOR-C ENVIRONMENTAL SERVICES TECHNICIAN on 04/25/2023. I have read the medical [...] provided by micah Colbert for Shakila Hicks [facility] REAL ESTATE SALES SUPERVISOR-C ENVIRONMENTAL SERVICES TECHNICIAN on 04/26/2023. I have read the medical [...] provided by micah Leija for Shakila Hicks [facility] REAL ESTATE SALES SUPERVISOR-C ENVIRONMENTAL SERVICES TECHNICIAN on 05/02/2023. I have read the medical record and scribe entries. I approve the care and treatment provided to this patient as recorded by the scribe 05/25/2023 Other Documentation assistance provided by [facility]ah Colbert [facility] TECHNICIAN on 05/25/2023. I have read the medical record and scribe entries. I approve the care and treatment provided to this patient as recorded by the scribe. Continue Seroquel 600 mg at bedtime, monitor for abnormal movementsWill consider decreasing dose to 500 mg when Evita comes back from [place], so she can monitor Nain Mueller call if there are any questions or concerns while tapering down on SeroquelContinue Lamictal 100 mg, monitor for rash and stop if rash occursContinue Klonopin 0.5 mg quater tablet at bedtimeContinue individual and couples therapy with Roxana KarolContinue engaging in pickleball, swimming and regular walks 06/07/2023 Other Documentation assistance provided by micah Colbert for Shakila Hicks [facility] REAL ESTATE SALES SUPERVISOR-C ENVIRONMENTAL SERVICES TECHNICIAN on 06/07/2023. I have read the medical [...] provided by micah Anderson for Shakila Hicks [facility] REAL ESTATE SALES SUPERVISOR-C ENVIRONMENTAL SERVICES TECHNICIAN on 06/22/2023. I have read the medical [...] Other Documentation assistance provided by micah Anderson [facility] REAL ESTATE SALES SUPERVISOR-C ENVIRONMENTAL SERVICES TECHNICIAN on 06/28/2023. I have read the medical [...] 07/05/2023 Other Documentation assistance provided by micah Andersony Brodzinski [facility] TECHNICIAN on 07/05/2023. I have read the medical [...] provided by micah Anderson for Shakila Kurt [facility] ENVIRONMENTAL SERVICES TECHNICIAN on 07/07/2023. I have read the medical [...] Other Documentation assistance provided by micah Anderson [facility] ENVIRONMENTAL SERVICES TECHNICIAN on 07/14/2023. I have read the medical [...] Other Documentation assistance provided by micah Anderson [facility] ENVIRONMENTAL SERVICES TECHNICIAN on 07/21/2023. I have read the medical [...] Other Documentation assistance provided by Radha Neil, micah for Shakila Hicks [employer] REAL ESTATE SALES SUPERVISOR-C ENVIRONMENTAL SERVICES TECHNICIAN on 08/04/2023. I have read the medical [...] is going to retire will refer to [facility] encouraged him to continue walking his dog daily , continue paying pickle ball couple times a week, consider returning to swimming during the week 09/01/2023 Other Documentation assistance provided by micah Anderson for Shakila Hicks MSN REAL ESTATE SALES SUPERVISOR-C ENVIRONMENTAL SERVICES TECHNICIAN on 09/01/2023. I have read the medical [...] is going to retire will refer to [facility] encouraged him to continue walking his dog daily , continue paying pickle ball couple times a week, consider returning to swimming during the week 09/22/2023 Other Documentation assistance provided by micah Anderson for Shakila Hicks MSN REAL ESTATE SALES SUPERVISOR-C ENVIRONMENTAL SERVICES TECHNICIAN on 09/22/2023. I have read the [...] is going to retire will refer to [facility] encouraged him to continue walking his dog daily , continue paying pickle ball couple times a week, consider returning to swimming during the week 11/08/2023 Other Documentation assistance provided by micah Pacheco for Shakila Hicks MSN REAL ESTATE SALES SUPERVISOR-C ENVIRONMENTAL SERVICES TECHNICIAN on 11/08/2023. I have read the medical [...] Documentation assistance provided by micah Pacheco MSN REAL ESTATE SALES SUPERVISOR-C ENVIRONMENTAL SERVICES TECHNICIAN on 12/07/2023. I have read the medical [...] (light box) daily for 20 minutes from for seasonal depression monitor for mood dysregulation ,monitor quality of sleep due to HX of Bipolar I 01/10/2024 Other Documentation assistance provided by micah Pacheco for Shakila Hicks MSN REAL ESTATE SALES SUPERVISOR-C ENVIRONMENTAL SERVICES TECHNICIAN on 01/10/2024. I have read the medical [...] Plan Of Treatment Next Appt Details Provider Name:Jhaveri Chet landa, 02/14/2024 09:30:00 AM, [address], [place], [id number], Insurance Providers Payer Name Payer Address Payer Phone Subscriber Number Group Number Insured Name Patient Relationship to Insured Coverage Start Date Coverage End Date MEDICARE FQHC [address] [place], [place] [phone] [id number] Nain Mckeon Self - patient is the insured [facility] MEDICARE SUPPLEMENT [address] [place] [phone] [id number] Cipriano Mckeony Self - patient is the insured Medical (General) History Medical History History ICD Code Bipolar 2 Disorder Hypothyroidism 2020 CPE Tardive Dyskinesia, neuroleptic induced Insomnia Hyperlipidemia Psoriasis Obesity Part Medications, Klonopin, Sertraline, Cymbalta, Remeron, Tricylics, Olanzapine, Abilify, Vraylar, Rexulti, Geodon, Braman, Risperdal Cancer- Prostate BRCA 2 Gene Mutation po sitive Surgical History Surgery Date(Month/Year) Radical Prostatectomy Hospitalization History Reason Date(Month/Year) Depression- [facility] 2019 [place] [facility] [place] [facility] [place]
--- OUTSIDE RECORDS SUMMARY | 2024-01-19 16:12 | XMS_ITS | Encounter Summary ---
Author Organization [facility] Address [address] [place] [address] Care Team Providers Care Porcelain Enamel Laborer Name Role Phone Celio Sanders MD Primary Care Provider Encounter Details Date Type Department Care Team (Late st Contact Info) Description 10/17/2019 Lab Requisition [facility] Pathology & Laboratory Medicine - [facility] [address] [place] [address] Outr Resulting Lab, Provider Social History Tobacco Use Types Packs/Day Years Used Date Smoking Tobacco: Never Assessed Sex and Gender Information Value Date Recorded Sex Assigned at Not on file Legal Sex Male 9:09 EST Gender Identity Not on file Sexual Orientation [...] Unknown 10/17/2019 15:50 EDT 10/17/2019 20:58 EDT us Provider Outr Resulting Lab MICROBIOLOGY - GENER AL ORDERABLES Final Result [facility] [address] [place] [address] * COVID-19 TESTING (10/17/2019 15:50 EDT) COVID-19 rt-PCR Result Negative Negative 10/18/2019 0:27 EDT [facility] Comment: This test has not [...] history, and epidemiological information. Performed on the DroneDeployher Fusion instrument Performing Lab [place] [facility] Lab 10/18/2019 0:27 EDT [facility] Swab 10/17/2019 15:5 0 EDT 10/17/2019 20:58 EDT us Provider Outr Resulting Lab MICROBIOLOGY - GENER AL ORDERABLES Final Result [facility] [address] [place] [address] documented in this encounter Visit Diagnoses Not on filedocumented in this encounter Care Teams Porcelain Enamel Laborer Relationship Specialty Start Date End Date Celio Sanders MD [address] [place] [address] PCP - General 04/30/16 documented as of this encounter
--- OUTSIDE RECORDS SUMMARY | 2024-01-19 16:12 | XMS_ITS | Encounter Summary ---
Author Organization [facility] Address [facility] [place] [address] Care Team Providers Care Dough Mixing Machine Operator Name Role Phone Celio Sanders MD Primary Care Provider [phone] Encounter Details Date Type Department Care Team (Late st Contact Info) Description 04/25/2023 Telephone Hematology/Oncology at [address] [phone] Hanny Laureano Social History Tobacco Use Types Packs/Day Years Used Date Smoking Tobacco: Never Smokeless Tobacco: Never Alcohol Use Standard Drinks/Week Comments Not Currently 0 (1 standard drink = 0.6 oz pur e alcohol) beer and wine twice a month [facility] Utilities Answer Date Recorded In [...] time. Had labs done last week at [facility] documented in this encounter Plan of Treatment Upcoming Encounters Date Type Department Care Team (Late st Contact Info) Description 01/24/2024 2:00 PM EST Office Visit Dermatology at [address] [place] [address] Prisca Hughes MD [facility] [address] [place] [address] 02/07/2024 1:30 PM EST Office Visit Hematology/Oncology at [address] [phone] Harjinder Snyder MD [facility] [place] [address] Bisi Cheng APRN [facility] [place] [address] documented as of this encounter Visit Diagnoses Not on filedocumented in this encounter Care Teams Dough Mixing Machine Operator Relationship Specialty Start Date End Date Celio Sanders MD [address] [place] [address] PCP - General Internal Medicine 05/19/16 documented as of this encounter
--- OUTSIDE RECORDS SUMMARY | 2024-01-19 16:12 | XMS_ITS ---
Author Organization [facility] Address [facility] [place] [address] Care Team Providers Care Health And Fitness Professor Name Role Phone Celio Sanders MD Primary Care Provider [phone] Active Problems Problem Noted Date Diagnosed Date Toxic encephalopathy 08/06/2017 Bipolar disorder, current ep isode manic without psychotic features, moderate 08/06/2017 Bipolar II disorder 07/27/2017 Hypothyroidism 07/27/2017 Hyperlipidemia 07/27/2017 Hx of appendectomy 07/27/2017 Hx laparoscopic cholecystectomy 07/27/2017 Prostate cancer metastatic to intrapelvic lymph node 07/07/2016 Recurrent prostate cancer 07/07/2016 Foreign travel 01/26/2011 Current Oncology Plans Leuprolide (Lupron Depot) injection ([facility], [place], [place], [facility], [facility], [facility])* Plan Start Date:03/01/2023 Plan Provider:Ronnie Vazquez [...] Discontinue Reason Plan Provider Degarelix (Firmagon) Injection ([facility], [facility] HemOnc) New Patient Induction 02/03/2023 04/26/2023 No medications scheduled. Therapy Complete Ronnie Vazquez MD Radiation Treatments * No radiation treatments are documented for this patient in Epic. Treatments may have been administered in another system.
--- OUTSIDE RECORDS SUMMARY | 2024-01-19 16:12 | XMS_ITS | Encounter Summary ---
Author Organization [facility] Address [facility] [place] [address] Care Team Providers Care Hem Inspector Name Role Phone Celio Sanders MD Primary Care Provider [phone] Encounter Details Date Type Department Care Team (Late st Contact Info) Description 02/24/2023 Telephone Hematology/Oncology at [address] [address] Kori Haas, RN Social History Tobacco Use Types Packs/Day Years Used Date Smoking Tobacco: Never Smokeless Tobacco: Never Alcohol Use Standard Drinks/Week Comments Not Currently 0 (1 standard drink = 0.6 oz pur e alcohol) beer and wine twice a month [facility] Utilities Answer Date Recorded In [...] Haas, RN - 02/24/2023 2:37 PM EST [place] [facility] sent in notification the Xtandi was approved. Contacted Nain to let him it was approved and provided the phone number to call to set up a delivery date in the event he does nohear from them first. The number given to contact was [phone]. Nain verbalized understanding and in agreement with the plan. documented in this encounter Plan of Treatment Upcoming Encounters Date Type Department Care Team (Late st Contact Info) Description 01/24/2024 2:00 PM EST Office Visit Dermatology at [address] [address] Prisca Hughes MD [facility] DR [place] [address] 02/07/2024 1:30 PM EST Office Visit Hematology/Oncology at [address] [address] Harjinder Snyder MD [facility] [place] [address] Bisi Cheng APRN [facility] [place] [address] documented as of this encounter Visit Diagnoses Not on filedocumented in this encounter Care Teams Hem Inspector Relationship Specialty Start Date End Date Celio Sanders MD [address] [place] [address] PCP - General Internal Medicine 05/19/16 documented as of this encounter
--- OUTSIDE RECORDS SUMMARY | 2024-01-19 16:12 | XMS_ITS | Encounter Summary ---
Author Organization [facility] Address [facility] [place] [address] Care Team Providers Care Constitutional Law Professor Name Role Phone Celio Sanders MD Primary Care Provider [phone] Reason for Visit * Reason Onset Date Comments Other 02/23/2023 Enrolled in [employer] Encounter Details Date Type Department Care Team (Late st Contact Info) Description 02/23/2023 Telephone Hematology/Oncology at [address] [phone] Tracy Reno RN Other (Enrolled in [employer]) Social History Tobacco Use Types Packs/Day Years Used Date Smoking Tobacco: Never Smokeless Tobacco: Never Alcohol Use Standard Drinks/Week Comments Not Currently 0 (1 standard drink = 0.6 oz pur e alcohol) beer and wine twice a month [facility] Utilities Answer Date Recorded In the past 12 months has [employer], gas, oil, or water [employer] threatened to shut off services in [...] 9:39 AM EST Enrolled patient electronically into [employer] with his permission due to high copayand no funding available. New script sent electronically to [facility]. Await to hear that patient qualifies for free Xtandi. [employer] support [employer] phone [phone] documented in this encounter Plan of Treatment Upcoming Encounters Date Type Department Care Team (Late st Contact Info) Description 01/24/2024 2:00 PM EST Office Visit Dermatology at [place] [address] [place] [address] Prisca Hughes MD [facility] DR PHOEBE [place] [address] 02/07/2024 1:30 PM EST Office Visit Hematology/Oncology at [address] [phone] Harjinder Snyder MD [facility] [place] [address] Bisi Cheng APRN [facility] [place] [address] documented as of this encounter Visit Diagnoses Not on filedocumented in this encounter Care Teams Constitutional Law Professor Relationship Specialty Start Date End Date Celio Sanders MD [address] [place] [address] PCP - General Internal Medicine 05/19/16 documented as of this encounter
--- OUTSIDE RECORDS SUMMARY | 2024-01-19 16:12 | XMS_ITS | Encounter Summary ---
Author Organization [facility] Address [facility] [place] [address] Care Team Providers Care Hand Touch Up Painter Name Role Phone Celio Sanders MD Primary Care Provider [phone] Encounter Details Date Type Department Care Team (Late st Contact Info) Description 07/19/2023 1:00 PM EDT Office Visit Hematology/Oncology at [address] [address] Harjinder Ruffin MD [facility] DR [place] [address] Bisi Cheng APRN [facility] [place] [address] Recurrent prostate cancer; Malignant neoplasm of prostate Social History Tobacco Use Types Packs/Day Years Used Date Smoking Tobacco: Never Smokeless Tobacco: Never Alcohol Use Standard Drinks/Week Comments Not Currently 0 (1 standard drink = 0.6 oz pur e alcohol) beer and wine twice a month [facility] Utilities Answer Date Recorded In the past 12 months has [employer], gas, oil, or water company threatened [...] from the original note were not included. [facility] Medical Oncology [place] [id number] ONCOLOGY F/u visit REFERRING: Dr Vazquez, Dr [...] Mar 2018: pathogenic variant in BRCA2 (c.1929del, p.[id number] fs15). VUS in AXIN2 and CTNNA1 -01/06/23 [...] under the care of Dr. Hassan at [facility] on June 15 and June 22. 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 PS: ECOG = 0 General: NAD Deferred Pathology: 01/20/2023 prostatic adenocarcinoma, Grade Group 5 ([place] Sal score 5+5=10) LABS: 07/12/2023 BUN 23, creatinine 1.2, TB 0.4, alkaline phosphatase 76, AST 24, ALT 33, WBC 7.26, hemoglobin 12.4, platelet count 359, ANC 4.29. 04/19/2023 BUN 15, creatinine 1.0, TB 0.4, AST 28, ALT 39, WBC 6.83, hemoglobin 12.3, platelet [id number], 02/15/2023 BUN 31, creatinine 1.1, calcium 9.3, [...] radiation oncologist Dr. Victorino Hassan at the [facility] Given his high Andre score [...] observed, with no substantial between-group differences in [id number] measures. CONCLUSIONS In patients with prostate cancer with high-risk biochemical recurrence, enzalutamide plus leuprolide was superior to leuprolide alone with respect to metastasis-free survival; enzalutamide monotherapy was also superior to leuprolide alone. The safety profile of enzalutamide was consistent with that shown in previous clinical studies, with no apparent detrimental effect on quality of life. (Fundedby [employer] and [employer]; [employer] ClinicalTrials.gov number, [id number]. opens in new tab.) On January 20 [...] follow-up with radiation oncologist Dr. Hassan at [facility] I can see him back in 3 months with blood work 07/19/23 Nain had salvage HDR focally under care of Dr. Shaffer At [facility] on June 15 and June 22. The [...] Dermatology at [facility] [address] [place] [address] Prisca Hughes MD [facility] DR [place] [address] 02/07/2024 1:30 PM EST Office Visit Hematology/Oncology at [address] [address] Harjinder Ruffin MD [facility] [place] [address] Bisi Cheng APRN [facility] [place] [address] documented as of this encounter Visit Diagnoses Diagnosis Recurrent prostate cancer Malignant neoplasm of prostate documented in this encounter Care Teams Hand Touch Up Painter Relationship Specialty Start Date End Date Celio Sanders MD [address] [place] [address] PCP - General Internal Medicine 05/19/16 documented as of this encounter
--- OUTSIDE RECORDS SUMMARY | 2024-01-19 16:12 | XMS_ITS | Encounter Summary ---
Author Organization [facility] Address [facility] [place] [address] Care Team Providers Care Care Assistant Name Role Phone Celio Sanders MD Primary Care Provider [phone] Encounter Details Date Type Department Care Team (Latest Contact Info) Description 07/19/2023 Travel Social History Tobacco Use Types Packs/Day Years Used Date Smoking Tobacco: Never Smokeless Tobacco: Never Alcohol Use Standard Drinks/Week Comments Not Currently 0 (1 standard drink = 0.6 oz pur e alcohol) beer and wine twice a month [facility] Utilities Answer Date Recorded In the past [...] 2:00 PM EST Office Visit Dermatology at [facility] [address] [place] [address] Prisca Hughes MD [facility] DR [place] [address] 02/07/2024 1:30 PM EST Office Visit Hematology/Oncology at [address] [phone] Harjinder Snyder MD [facility] DR [place] [address] Bisi Cheng APRN [facility] [place] [address] documented as of this encounter Visit Diagnoses Not on filedocumented in this encounter Care Teams Care Assistant Relationship Specialty Start Date End Date Celio Sanders MD [address] [place] [address] PCP - General Internal Medicine 05/19/16 documented as of this encounter
--- OUTSIDE RECORDS SUMMARY | 2024-01-19 16:12 | XMS_ITS | Encounter Summary ---
Author Organization [facility] Address [address] [place] [address] Care Team Providers Care Viscosity Tester Name Role Phone Unavailable Primary Care Provider Unavailabl e Encounter Details Date Type Department Care Team (Latest Contact Info) Description 04/27/2016 10:06 EST - 04/27/2016 23:59 EST Hospital Encounter [address] [address] Unknown, Provider, MD Discharge Disposition: Home or Self Care Social History Tobacco Use Types Packs/Day Years Used Date Smoking Tobacco: Never Assessed Sex and Gender Information Value Date Recorded Sex Assigned at Not on file Legal Sex Male 9:09 EST Gender Identity Not on file Sexual Orientation Not on file documented as of this encounter Discharge Disposition Disposition Code Departure Means Destination Home or Self Nursing Home documented in this encounter Plan of Treatment Not on file documented as of this encounter Visit Diagnoses Not on filedocumented in this encounter
--- OUTSIDE RECORDS SUMMARY | 2024-01-19 16:12 | XMS_ITS | Encounter Summary ---
[place] [address] Care Team Providers Care Account Solutions Analyst Name Role Phone Celio Sanders MD Primary Care Provider [phone] Reason for Visit * Reason Comments Injections IM Lupron * Treatment/Therapy Plan Authorization (Routine) - Authorized Specialty Diagnoses / Procedures Referred By Contac t Referred To Contact Hematology and Oncology Diagnoses Recurrent prostate cancer Procedures TC LEUPROLIDE ACETATE 7.5MG, FOR DEPOST SUSPENSION (LUPRON DEPOT) Ronnie Vazquez MD [address] [place] [address] [place] [address] [facility] [place] Infusion [address] [place] [address] Referral ID Status Reason Start Date Expiration Date V isits Requested Visits Authorized [id number] Authorized 02/17/2023 02/17/2024 1 103 Encounter Details Date Type Department Care Team (Late st Contact Info) Description 05/24/2023 11:30 AM EDT Infusion Hematology Oncology at [address] [phone] Recurrent prostate cancer Social History Tobacco Use Types Packs/Day Years Used Date Smoking Tobacco: Never Smokeless Tobacco: Never Alcohol Use Standard Drinks/Week Comments Not Currently 0 (1 standard drink = 0.6 oz pur e alcohol) beer and wine twice a month [facility] Utilities Answer Date Recorded In the past 12 months has [employer], gas, oil, or water company threatened to [...] 2:00 PM EST Office Visit Dermatology at [address] [place] [address] Prisca Hughes MD [facility] DR [place] [address] 02/07/2024 1:30 PM EST Office Visit Hematology/Oncology at [address] [phone] Harjinder Snyder MD [facility] [place] [address] Bisi Cheng APRN [facility] [place] [address] documented as of this encounter Visit Diagnoses [...] Gluteal documented in this encounter Care Teams Account Solutions Analyst Relationship Specialty Start Date End Date Celio Sanders MD [address] [place] [address] PCP - General Internal Medicine 05/19/16 documented as of this encounter
--- OUTSIDE RECORDS SUMMARY | 2024-01-19 16:12 | XMS_ITS | Clinical Summary ---
Author Organization [facility] Address [address] [place] [address] Care Team Providers Care Chemical Lab Supervisor Name Role Phone Celio Sanders MD Primary Care Provider [phone] Social History Tobacco Use Types Packs/Day Years [...] Last Done Comments Hepatitis C Screen 1950 Fall Risk Screening 2013 RSV Immunization ( o r 60+ Years) (1 - 1-dose 75+ series) 09/19/2023 COVID-19 Vaccine (2023- season) 2023 Insurance MEDICARE Care Teams Chemical Lab Supervisor Relationship Specialty Start Date End Date Celio Sanders MD [address] [place] [address] PCP - General 04/30/16
--- OUTSIDE RECORDS SUMMARY | 2024-01-19 16:12 | XMS_ITS | Referral Summary ---
Author Organization [facility] Address [address] [place] [address] Care Team Providers Care Lifeguard Name Role Phone Celio Sanders MD Primary Care Provider [phone] Social History Tobacco Use Types Packs/Day Years Used Date Smoking Tobacco: Never Assessed Interpersonal Safety Answer Date Record ed Physically Hurt Never 11/25/2019 Verbally Threaten Not on file 11/25/2019 Sex and Gender Information Value Date Recorded Sex Assigned at Not on file Legal Sex Male 9:09 EST Gender Identity Not on file Sexual Orientation Not on file Plan of Treatment Not on file Insurance MEDICARE Care Teams Lifeguard Relationship Specialty Start Date End Date Celio Sanders MD [address] [place] [address] PCP - General 04/30/16
--- OUTSIDE RECORDS SUMMARY | 2024-01-19 16:12 | XMS_ITS | Encounter Summary ---
Author Organization [facility] Address [facility] [place] [address] Care Team Providers Care Operators Teacher Name Role Phone Celio Sanders MD Primary Care Provider [phone] Encounter Details Date Type Department Care Team [...] place to sleep or slept in a chcf (including now)? No 02/15/2023 Sex and Gender Information Value Date Recorded Sex Assigned at Not on file Gender Identity Not on file Sexual Orientation Not on file documented as of this encounter Plan of Treatment Upcoming Encounters Date Type Department Care Team (Late st Contact Info) Description 01/24/2024 2:00 PM EST Office Visit Dermatology at [facility] [address] [place] [address] Prisca Hughes MD [facility] DR PHOE[place] [address] 02/07/2024 1:30 PM EST Office Visit Hematology/Oncology at [address] [address] Harjinder Snyder MD [facility] DR HEMATOLOGY [place] [address] Biis Cheng APRN [facility] [place] [address] documented as of this encounter Visit Diagnoses Not on filedocumented in this encounter Care Teams Operators Teacher Relationship Specialty Start Date End Date Celio Sanders MD [address] [place] [address] PCP - General Internal Medicine 05/19/16 documented as of this encounter
--- OUTSIDE RECORDS SUMMARY | 2024-01-19 16:12 | XMS_ITS | Clinical Summary ---
Author Organization [facility] Address [facility] [place] [address] Care Team Providers Care Sprinkler Fitter Name Role Phone Celio Sanders MD Primary Care Provider [phone] Allergies No known active allergies Medications Medication [...] 10/25/2023 10:00 AM EDT Telephone Hematology/Oncology at [address] [phone] 10/24/2023 1:30 PM EDT Office Visit Hematology/Oncology at [address] [phone] Bisi Cheng APRN Recurrent prostate [...] alcohol) beer and wine twice a month [facility] Utilities Answer Date Recorded In the [...] 2:00 PM EST Office Visit Dermatology at [facility] [address] [place] [address] Prisca Hughes MD [facility] DR PHOEBE [place] [address] 02/07/2024 1:30 PM EST Office Visit Hematology/Oncology at [address] [phone] Harjinder Snyder MD [facility] HEMATOLOGY [place] [address] Bisi Cheng APRN [facility] MEDICAL ONCOLOGY [place], [facility] Health Maintenance Due Date Last Done Comments CT Colonography 1950 FIT DNA 1950 FIT 1950 Sigmoidoscopy 1950 Hepatitis C Screening 1966 Tetanus/Diphtheria/Pertussis Vaccines (1 - Tdap) 09/19/1967 Zoster vaccine (1 of 2) 1998 Advance Directive 09/19/2003 Pneumoccocal Vaccine: 65+ (1 of 1 - PCV) 2013 Covid-19 Vaccine (2 - season) 2023 Influenza (Flu) vaccine (1 o f 1 - Influenza standard series) 11/06/2023 01/25/2011 Colonoscopy 05/13/2031 05/12/2021, 05/12/2021 Colorectal Cancer Screening 05/13/2031 Sigmoidoscopy (10 year) with FIT yearly 05/13/2031 0 05/12/2021, 05/12/2021 Procedures Procedure Name Priority Date/Time Associated Diagnosis Comments COLONOSCOPY Routine 05/12/2021 2:18 PM EST from Last 3 Months or Most Recently Relevant to Health Maintenance Results * COLONOSCOPY (05/12/2021 2:18 PM EST) COLONOSCOPY [facility] Endoscopy Procedure Date: 05/12/2021 2:18 PM ? Patient Name: Nain Mckeon ? Date of : 1950 ? Age: 70 ? Order #: [id number] ? Instrument Name: [id number] ? Procedure: ? Colonoscopy Indications: ? Screening patient at increased risk: ? Family history of 1st-degree relative ? with colorectal cancer at age 60 ? years (or older) Providers: ? Nicky Bray MD, Sav Platt ? Ivon Angel, Pilot Plant Technician Referring : ?Celio Sanders MD Medicines: ? [...] preparation was ? evaluated using the BBPS ([place] ? Bowel Preparation Scale) with scores ? [...] Procedure Code(s): ?? --- Professional --- ? 98563, Colonoscopy, flexible; with ? removal of tumor(s), polyp(s), or ? other lesion(s) by snare technique CPT copyright 2019 [employer] [employer]. All rights reserved. The codes documented in this report are preliminary and upon wine merchant review may be revised to meet current [...] discussion: Pt desires full code. Care Teams Sprinkler Fitter Relationship Specialty Start Date End Date Celio Sanders MD [address] [place] [address] PCP - General Internal Medicine 05/19/16
--- OUTSIDE RECORDS SUMMARY | 2024-01-19 16:12 | XMS_ITS | Encounter Summary ---
[place] [address] Care Team Providers Care Assistant Maintenance Manager Name Role Phone Celio Sanders MD Primary Care Provider [phone] Reason for Visit * Reason Comments Injections IM Lupron * Treatment/Therapy Plan Authorization (Routine) - Authorized Specialty Diagnoses / Procedures Referred By Contac t Referred To Contact Hematology and Oncology Diagnoses Recurrent prostate cancer Procedures TC LEUPROLIDE ACETATE 7.5MG, FOR DEPOST SUSPENSION (LUPRON DEPOT) Ronnie Vazquez MD [address] [place] [address] [place] [address] [facility] Infusion [address] [place] [address] Referral ID Status Reason Start Date Expiration Date V isits Requested Visits Authorized [id number] Authorized 02/17/2023 02/17/2024 1 103 Encounter Details Date Type Department Care Team (Late st Contact Info) Description 03/01/2023 11:30 AM EST Infusion Hematology Oncology at [address] [phone] Recurrent prostate cancer Social History Tobacco Use Types Packs/Day Years Used Date Smoking Tobacco: Never Smokeless Tobacco: Never Alcohol Use Standard Drinks/Week Comments Not Currently 0 (1 standard drink = 0.6 oz pur e alcohol) beer and wine twice a month [facility] Utilities Answer Date Recorded In the past 12 months has [employer], gas, oil, or water company threatened to [...] 2:00 PM EST Office Visit Dermatology at [address] [place] [address] Prisca Hughes MD [facility] DR PHOEBE IBARRA-[place] [address] 02/07/2024 1:30 PM EST Office Visit Hematology/Oncology at [address] [phone] Harjinder Snyder MD [facility] DR HEMATOLOGY [place] [address] Bisi Cheng APRN [facility] DR [place] [address] documented as of this encounter Visit Diagnoses [...] Gluteal documented in this encounter Care Teams Assistant Maintenance Manager Relationship Specialty Start Date End Date Celio Sanders MD [address] [place] [address] PCP - General Internal Medicine 05/19/16 documented as of this encounter
--- OUTSIDE RECORDS SUMMARY | 2024-01-19 16:12 | XMS_ITS | Encounter Summary ---
Author Organization [facility] Address [address] [place] [address] Care Team Providers Care Hod Carrier Name Role Phone Celio Sanders MD Primary Care Provider [phone] Encounter Details Date Type Department Care Team (Latest Contact Info) Description 06/17/2016 15:52 EDT - 06/17/2016 23:59 EDT Hospital Encounter [address] [address] Unknown, Provider, MD Discharge Disposition: Home or [...] Code Departure Means Destination Home or Self Long Term documented in this encounter Plan of Treatment Not on file documented as of this encounter Visit Diagnoses Not on filedocumented in this encounter Care Teams Hod Carrier Relationship Specialty Start Date End Date Celio Sanders MD [address] [place] [address] PCP - General 04/30/16 documented as of this encounter
--- OUTSIDE RECORDS SUMMARY | 2024-01-19 16:12 | XMS_ITS | Encounter Summary ---
Author Organization [facility] Address [facility] [place] [address] Care Team Providers Care Registered Nurse Step Down Name Role Phone Celio Sanders MD Primary Care Provider [phone] Encounter Details Date Type Department Care Team (Late st Contact Info) Description 10/25/2023 10:00 AM EDT Telephone Hematology/Oncology at [address] [phone] Shakila Manuel, JB [facility] [place] [address] Social History Tobacco Use Types Packs/Day Years Used Date Smoking Tobacco: Never Smokeless Tobacco: Never Alcohol Use Standard Drinks/Week Comments Not Currently 0 (1 standard drink = 0.6 oz pur e alcohol) beer and wine twice a month [facility] Utilities Answer Date Recorded In the past 12 months has [employer], gas, oil, or water [employer] threatened to shut off services in [...] PM EST Office Visit Dermatology at [address] [place] [address] Prisca Hughes MD [facility] [place] [address] 02/07/2024 1:30 PM EST Office Visit Hematology/Oncology at [address] [phone] Harjinder Snyder MD [facility] [place] [address] Bisi Cheng APRN [facility] [place] [address] documented as of this encounter Visit Diagnoses Not on filedocumented in this encounter Care Teams Registered Nurse Step Down Relationship Specialty Start Date End Date Celio Sanders MD [address] [place] [id number] PCP - General Internal Medicine 05/19/16 documented as of this encounter
--- OUTSIDE RECORDS SUMMARY | 2024-01-19 16:12 | XMS_ITS | Data Portability ---
Author Organization [place] - [facility] Address [address] [place] [address] Assessment No assessment recorded. Plan of Treatment Reminders Order Date Submit Date Provider Last Modified By Organization Details Last Modified Time Details Appointments Annual Chronic Care (65+) 30 2023 02:10P M DEWAYNE JOHNSON Not available Not available Not available Lab urinalysi s, dipstick 2023 024 [email or web address] [facility], [address] [place] [address], [address], [place], [address], 07/02/2023 12:50:28 culture, urine 2023 024 [facility] (Registration ), [address] [place] [address] [place], [address], 07/04/2023 08:41:06 microscop ic method, urine 2023 024 [facility] (Registration ), [address] [place] [address] , [place], [address], 07/04/2023 08:40:48 Referral physical therapist referral 2023 024 [facility], [address], [place], [address], 08/31/2023 11:47:52 Procedures None recorded. Surgeries None recorded. Imaging None recorded. Medication Orders Flonase Allergy Relief 50 mcg/actua tion nasal spray,mayra pension 2023 024 [facility], [address] [place], [address], 05/05/2023 11:41:51 levofloxa tracy 750 mg tablet 2023 024 aurelio [facility], [address] [place], [address], 08/03/2023 11:17:49 metronida zole 500 mg tablet 2023 024 aurelio [facility], [address] [place], [address], 08/03/2023 11:17:49 cyclobenz aprine 10 mg tablet 2023 024 aurelio [facility], [address] [place], [address], 08/07/2023 12:47:14 Patient TargetsNo targets recorded. Patient Instructions Encounter Date Encounter Id Patient Instructions Last Modified By Organization Details Last Modified Time 05/05/2023 [id number] learning about healthy weight [email or web address] Not available 05/05/2023 13:38:31 07/02/2023 [id number] 1. There is a infection in the [...] this. [email or web address] Not available 07/02/2023 13:23:13 12/21/2023 [id number] Dear gf, Thank you for visiting our [...] Not available 12/22/2023 08:50:55 Reason for Referral Physical Therapist Referral for Tension-type headache Referring Physician: Dewayne Johnson, Family Medicine, Encounter Date: 08/03/2023 Results Created Date Observation Date Name Description Value Unit Range Abnormal Flag Note LastModifiedBy Organization Detail LastModifiedTime 04/19/19 24 04/19/2023 COMPL ETE BLOOD COUNT W/DIF F WBC 6.83 10_3/ uL 4.4-10 .8 normal Not Available [facility] [address] [facility] [place], [address] 04/19/2023 12:58:26 04/19/19 24 04/19/2023 COMPL ETE BLOOD COUNT W/DIF F RBC 4.02 10_6/ uL 4.36-5 .78 low Not Available [address] [place], [address] 04/19/2023 12:58:26 04/19/19 24 04/19/2023 COMPL ETE BLOOD COUNT W/DIF F HGB 12.3 g/dL 13.5-1 7.5 low Not Available [address] [place], [address] 04/19/2023 12:58:26 04/19/19 24 04/19/2023 COMPL ETE BLOOD COUNT W/DIF F HCT 37.2 % 40.0-5 0.0 low Not Available [address] [place], [address] 04/19/2023 12:58:26 04/19/19 24 04/19/2023 COMPL ETE BLOOD COUNT W/DIF F MCV 93 fL 80-95 normal Not Available [facility] [address] [place], [address] 04/19/2023 12:58:26 04/19/19 24 04/19/2023 COMPL ETE BLOOD COUNT W/DIF F MCH 30.6 pg 27.0-3 3.0 normal Not Available [address] [place], [address] 04/19/2023 12:58:26 04/19/19 24 04/19/2023 COMPL ETE BLOOD COUNT W/DIF F MCHC 33.1 % 32.0-3 6.0 normal Not Available [address] [place], [address] 04/19/2023 12:58:26 04/19/19 24 04/19/2023 COMPL ETE BLOOD COUNT W/DIF F RDW 13.2 % 11.8-1 4.1 normal Not Available [address] [place], [address] 04/19/2023 12:58:26 04/19/19 24 04/19/2023 COMPL ETE BLOOD COUNT W/DIF F platelet count 322 10_3/ uL 130-40 0 normal Not Available [address] [place], [address] 04/19/2023 12:58:26 04/19/19 24 04/19/2023 COMPL ETE BLOOD COUNT W/DIF F MPV 8.7 fL 8.0-11 .0 normal Not Available [address] [place], [address] 04/19/2023 12:58:26 04/19/19 24 04/19/2023 COMPL ETE BLOOD COUNT W/DIF F neutrophils % 54.5 Not Available [address] [place], [address] 04/19/2023 12:58:26 04/19/19 24 04/19/2023 COMPL ETE BLOOD COUNT W/DIF F lymphocytes % 31.5 Not Available [address] [place], [address] 04/19/2023 12:58:26 04/19/19 24 04/19/2023 COMPL ETE BLOOD COUNT W/DIF F monocytes % 11.0 Not Available [address] [place], [address] 04/19/2023 12:58:26 04/19/19 24 04/19/2023 COMPL ETE BLOOD COUNT W/DIF F eosinophils % 2.3 Not Available [address] [place], [address] 04/19/2023 12:58:26 04/19/19 24 04/19/2023 COMPL ETE BLOOD COUNT W/DIF F basophils % 0.4 Not Available [address] [place], [address] 04/19/2023 12:58:26 04/19/19 24 04/19/2023 COMPL ETE BLOOD COUNT W/DIF F immature grans % 0.3 Not Available [address] [place], [address] 04/19/2023 12:58:26 04/19/19 24 04/19/2023 COMPL ETE BLOOD COUNT W/DIF F nucleated RBC 0.0 % 0.0-0. 3 normal Not Available [address] [place], [address] 04/19/2023 12:58:26 04/19/19 24 04/19/2023 COMPL ETE BLOOD COUNT W/DIF F absolute neutrophil count 3.72 10_3/ uL 1.2-6. 7 normal Not Available [address] [place], [address] 04/19/2023 12:58:26 04/19/19 24 04/19/2023 COMPL ETE BLOOD COUNT W/DIF F absolute lymphocyte count 2.15 10_3/ uL 1.2-3. 4 normal Not Available [address] [place], [address] 04/19/2023 12:58:26 04/19/19 24 04/19/2023 COMPL ETE BLOOD COUNT W/DIF F absolute monocyte count 0.75 10_3/ uL 0.1-0. 8 normal Not Available [address] [place], [address] 04/19/2023 12:58:26 04/19/19 24 04/19/2023 COMPL ETE BLOOD COUNT W/DIF F absolute eosinophil count 0.16 10_3/ uL 0.0-0. 7 normal Not Available [address] [place], [address] 04/19/2023 12:58:26 04/19/19 24 04/19/2023 COMPL ETE BLOOD COUNT W/DIF F absolute basophil count 0.03 10_3/ uL 0.0-0. 2 normal Not Available [address] [place], [address] 04/19/2023 12:58:26 04/19/19 24 04/19/2023 COMPR EHENS MARGE METAB OLIC PANEL calcium 10.0 mg/dL 8.5-10 .1 normal Not Available [address] [place], [address] 04/19/2023 14:02:34 04/19/19 24 04/19/2023 COMPR EHENS MARGE METAB OLIC PANEL glucose 101 mg/dL 74-106 normal Not Available Alek luo [address] [place], [address] 04/19/2023 14:02:34 04/19/19 24 04/19/2023 COMPR EHENS MARGE METAB OLIC PANEL BUN 15 mg/dL 7-18 normal Not Available Alek luo [address] [place], [address] 04/19/2023 14:02:34 04/19/19 24 04/19/2023 COMPR EHENS MARGE METAB OLIC PANEL creatinine 1.0 mg/dL 0.70-1 .30 normal Not Available [address] [place], [address] 04/19/2023 14:02:34 04/19/19 24 04/19/2023 COMPR EHENS [...] young er-ag ed adult s. Not Available [address] [place], [address] 04/19/2023 14:02:34 04/19/19 24 04/19/2023 COMPR EHENS MARGE METAB OLIC PANEL total protein 8.3 g/dL 6.4-8. 2 high Not Available [address] [place], [address] 04/19/2023 14:02:34 04/19/19 24 04/19/2023 COMPR EHENS MARGE METAB OLIC PANEL albumin 4.0 g/dL 3.4-5. 0 normal Not Available [address] [place], [address] 04/19/2023 14:02:34 04/19/19 24 04/19/2023 COMPR EHENS MARGE METAB OLIC PANEL bilirubin, total 0.4 mg/dL 0.2-1. 0 normal Not Available [address] [place], [address] 04/19/2023 14:02:34 04/19/19 24 04/19/2023 COMPR EHENS MARGE METAB OLIC PANEL alk phos 79 U/L 46-116 normal Not Available [address] [place], [address] 04/19/2023 14:02:34 04/19/19 24 04/19/2023 COMPR EHENS MARGE METAB OLIC PANEL sodium 138 mmol/ L 136-14 5 normal Not Available [address] [place], [address] 04/19/2023 14:02:34 04/19/19 24 04/19/2023 COMPR EHENS MARGE METAB OLIC PANEL potassium 4.2 mmol/ L 3.5-5. 1 normal Not Available [address] [place], [address] 04/19/2023 14:02:34 04/19/19 24 04/19/2023 COMPR EHENS MARGE METAB OLIC PANEL chloride 103 mmol/ L 98-107 normal Not Available [address] [place], [address] 04/19/2023 14:02:34 04/19/19 24 04/19/2023 COMPR EHENS MARGE METAB OLIC PANEL CO2 31.4 mmol/ L 21.0-3 2.0 normal Not Available [address] [place], [address] 04/19/2023 14:02:34 04/19/19 24 04/19/2023 COMPR EHENS MARGE METAB OLIC PANEL anion gap 3.6 mmol/ L 3-11 normal Not Available [address] [place], [address] 04/19/2023 14:02:34 04/19/19 24 04/19/2023 COMPR EHENS MARGE METAB OLIC PANEL AST 28 U/L 15-37 normal Not Available [facility] [address] [facility] [place], [address] 04/19/2023 14:02:34 04/19/19 24 04/19/2023 COMPR EHENS MARGE METAB OLIC PANEL ALT 39 U/L 16-63 normal Not Available [facility]k lu[facility] [address] [place], [address] 04/19/2023 14:02:34 04/19/19 24 04/22/2023 TESTO STERO NE, TOTAL testosterone , total 8.2 NG/dL 240-95 0 abnormal ----- ----- ----- ----A DDITI ONAL INFOR MATIO N---- ----- ----- ----- Testi ng perfo rmed by Luisito verma Chrom atogr aphgrant- Betzaida m Mass Spect romet ry (LC-M S/MS) . This test was devel oped and its perfo rmanc e noemi cteri stics deter mined by [facility] in a abbi r consi stent with RAMON tellez. This test has not been clear ed or appro joan by the U.S. Food and Drug Admin istra tion. Test Perfo rmed by: [facility] - [address] [place] [address] Lab Direc tor: Hoang Cruz Ph.D. ; CLIA# [id number] Not Available [address] [facility] [place], [address] 04/22/2023 16:53:27 04/19/19 24 04/21/2023 PSA, ULTRA [...] inesc ence assay manuf actur ed by [facility] and perfo rmed on the Barrett syste m. Value s obtai radha with diffe rent assay metho ds or kits may be diffe rent and canno t be used inter domínguez eably . Test resul ts canno t be inter prete d as absol round valley evide nce for the prese nce or absen ce of molly barbosa se. Test Perfo rmed by: [facility] - [address] [facility] [place] [address] Lab Direc tor: Hoang Cruz Ph.D. ; CLIA# [id number] Not Available [address] [place], [address] 04/22/2023 16:53:27 06/10/19 24 06/10/2023 COMPL ETE BLOOD COUNT W/DIF F WBC 7.95 10_3/ uL 4.4-10 .8 normal Not Available [address] [place], [address] 06/10/2023 14:55:59 06/10/19 24 06/10/2023 COMPL ETE BLOOD COUNT W/DIF F RBC 4.03 10_6/ uL 4.36-5 .78 low Not Available [address] [place], [address] 06/10/2023 14:55:59 06/10/19 24 06/10/2023 COMPL ETE BLOOD COUNT W/DIF F HGB 12.7 g/dL 13.5-1 7.5 low Not Available [address] [place], [address] 06/10/2023 14:55:59 06/10/19 24 06/10/2023 COMPL ETE BLOOD COUNT W/DIF F HCT 37.3 % 40.0-5 0.0 low Not Available [address] [place], [address] 06/10/2023 14:55:59 06/10/19 24 06/10/2023 COMPL ETE BLOOD COUNT W/DIF F MCV 93 fL 80-95 normal Not Available [facility] [address] [place], [address] 06/10/2023 14:55:59 06/10/19 24 06/10/2023 COMPL ETE BLOOD COUNT W/DIF F MCH 31.5 pg 27.0-3 3.0 normal Not Available [address] [place], [address] 06/10/2023 14:55:59 06/10/19 24 06/10/2023 COMPL ETE BLOOD COUNT W/DIF F MCHC 34.0 % 32.0-3 6.0 normal Not Available [address] [place], [address] 06/10/2023 14:55:59 06/10/19 24 06/10/2023 COMPL ETE BLOOD COUNT W/DIF F RDW 13.0 % 11.8-1 4.1 normal Not Available [address] [place], [address] 06/10/2023 14:55:59 06/10/19 24 06/10/2023 COMPL ETE BLOOD COUNT W/DIF F platelet count 326 10_3/ uL 130-40 0 normal Not Available [address] [place], [address] 06/10/2023 14:55:59 06/10/19 24 06/10/2023 COMPL ETE BLOOD COUNT W/DIF F MPV 8.8 fL 8.0-11 .0 normal Not Available [address] [place], [address] 06/10/2023 14:55:59 06/10/19 24 06/10/2023 COMPL ETE BLOOD COUNT W/DIF F neutrophils % 46.4 Not Available [address] [facility], [address] 06/10/2023 14:55:59 06/10/19 24 06/10/2023 COMPL ETE BLOOD COUNT W/DIF F lymphocytes % 37.2 Not Available [address] [facility], [address] 06/10/2023 14:55:59 06/10/19 24 06/10/2023 COMPL ETE BLOOD COUNT W/DIF F monocytes % 9.2 Not Available [address] [place], [address] 06/10/2023 14:55:59 06/10/19 24 06/10/2023 COMPL ETE BLOOD COUNT W/DIF F eosinophils % 5.9 Not Available [address] [place], [address] 06/10/2023 14:55:59 06/10/19 24 06/10/2023 COMPL ETE BLOOD COUNT W/DIF F basophils % 0.9 Not Available [address] [place], [address] 06/10/2023 14:55:59 06/10/19 24 06/10/2023 COMPL ETE BLOOD COUNT W/DIF F immature grans % 0.4 Not Available [address] [place], [address] 06/10/2023 14:55:59 06/10/19 24 06/10/2023 COMPL ETE BLOOD COUNT W/DIF F nucleated RBC 0.0 % 0.0-0. 3 normal Not Available [address] [place], [address] 06/10/2023 14:55:59 06/10/19 24 06/10/2023 COMPL ETE BLOOD COUNT W/DIF F absolute neutrophil count 3.69 10_3/ uL 1.2-6. 7 normal Not Available [address] [facility] [place], [address] 06/10/2023 14:55:59 06/10/19 24 06/10/2023 COMPL ETE BLOOD COUNT W/DIF F absolute lymphocyte count 2.96 10_3/ uL 1.2-3. 4 normal Not Available [address] [place], [address] 06/10/2023 14:55:59 06/10/19 24 06/10/2023 COMPL ETE BLOOD COUNT W/DIF F absolute monocyte count 0.73 10_3/ uL 0.1-0. 8 normal Not Available [address] [place], [address] 06/10/2023 14:55:59 06/10/19 24 06/10/2023 COMPL ETE BLOOD COUNT W/DIF F absolute eosinophil count 0.47 10_3/ uL 0.0-0. 7 normal Not Available [address] [place], [address] 06/10/2023 14:55:59 06/10/19 24 06/10/2023 COMPL ETE BLOOD COUNT W/DIF F absolute basophil count 0.07 10_3/ uL 0.0-0. 2 normal Not Available [address] [place], [address] 06/10/2023 14:55:59 06/10/19 24 06/10/2023 LASIC METAB OLIC PANEL calcium 9.0 mg/dL 8.5-10 .1 normal Not Available [address] [place], [address] 06/10/2023 15:55:21 06/10/19 24 06/10/2023 LASIC METAB OLIC PANEL glucose 93 mg/dL 74-106 normal Not Available [facility] [address] [place], [address] 06/10/2023 15:55:21 06/10/19 24 06/10/2023 LASIC METAB OLIC PANEL BUN 23 mg/dL 7-18 high Not Available [facility] [address] [place], [address] 06/10/2023 15:55:21 06/10/19 24 06/10/2023 LASIC METAB OLIC PANEL creatinine 1.1 mg/dL 0.70-1 .30 normal Not Available [address] [place], [address] 06/10/2023 15:55:21 06/10/19 24 06/10/2023 LASIC METAB [...] young er-ag ed adult s. Not Available [address] [place], [address] 06/10/2023 15:55:21 06/10/19 24 06/10/2023 LASIC METAB OLIC PANEL sodium 143 mmol/ L 136-14 5 normal Not Available [address] [place], [address] 06/10/2023 15:55:21 06/10/19 24 06/10/2023 LASIC METAB OLIC PANEL potassium 4.5 mmol/ L 3.5-5. 1 normal Not Available [address] [place], [address] 06/10/2023 15:55:21 06/10/19 24 06/10/2023 LASIC METAB OLIC PANEL chloride 105 mmol/ L 98-107 normal Not Available [address] [place], [address] 06/10/2023 15:55:21 06/10/19 24 06/10/2023 LASIC METAB OLIC PANEL CO2 28.5 mmol/ L 21.0-3 2.0 normal Not Available [address] [place], [address] 06/10/2023 15:55:21 06/10/19 24 06/10/2023 LASIC METAB OLIC PANEL anion gap 9.5 mmol/ L 3-11 normal Not Available [address] [place], [address] 06/10/2023 15:55:21 06/10/19 24 06/10/2023 LASIC METAB OLIC PANEL calcium 9.0 mg/dL 8.5-10 .1 normal Not Available [address] [place], [address] 06/10/2023 16:16:20 06/10/19 24 06/10/2023 LASIC METAB OLIC PANEL glucose 93 mg/dL 74-106 normal Not Available Alek rn [address] [place], [address] 06/10/2023 16:16:20 06/10/19 24 06/10/2023 LASIC METAB OLIC PANEL BUN 23 mg/dL 7-18 high Not Available Alek r[facility] [address] [place], [address] 06/10/2023 16:16:20 06/10/19 24 06/10/2023 LASIC METAB OLIC PANEL creatinine 1.1 mg/dL 0.70-1 .30 normal Not Available [address] [place], [address] 06/10/2023 16:16:20 06/10/19 24 06/10/2023 LASIC METAB [...] young er-ag ed adult s. Not Available [address] [place], [address] 06/10/2023 16:16:20 06/10/19 24 06/10/2023 LASIC METAB OLIC PANEL sodium 143 mmol/ L 136-14 5 normal Not Available [address] [place], [address] 06/10/2023 16:16:20 06/10/19 24 06/10/2023 LASIC METAB OLIC PANEL potassium 4.5 mmol/ L 3.5-5. 1 normal Not Available [address] [place], [address] 06/10/2023 16:16:20 06/10/19 24 06/10/2023 LASIC METAB OLIC PANEL chloride 105 mmol/ L 98-107 normal Not Available [address] [place], [address] 06/10/2023 16:16:20 06/10/19 24 06/10/2023 LASIC METAB OLIC PANEL CO2 28.5 mmol/ L 21.0-3 2.0 normal Not Available [address] [place], [address] 06/10/2023 16:16:20 06/10/19 24 06/10/2023 LASIC METAB OLIC PANEL anion gap 9.5 mmol/ L 3-11 normal Not Available [address] [place], [address] 06/10/2023 16:16:20 07/02/19 24 07/02/2023 MICRO SCOPI C FINDI NGS WBC 3-5 hpf 0-5 Not Available [facility] (Registration ) [address] [place] [address] [place], [address], 07/02/2023 16:56:52 07/02/19 24 07/02/2023 MICRO SCOPI C FINDI NGS RBC >50 hpf 0-2 abnormal Not Available [facility] (Registration ) [address] [place] [address] [place], [address], 07/02/2023 16:56:52 07/02/19 24 07/02/2023 MICRO SCOPI C FINDI NGS epithelial cells Rare hpf negati ve Not Available [facility] (Registration ) [address] [place] [address] [place], [address], 07/02/2023 16:56:52 07/02/19 24 07/02/2023 MICRO SCOPI C FINDI NGS bacteria Few hpf negati ve Not Available [facility] (Registration ) [address] [place] [address] Dr [facility] [place], [address], 07/02/2023 16:56:52 07/02/19 24 07/02/2023 MICRO SCOPI C FINDI NGS crystals Negati ve hpf negati ve Not Available [facility] (Registration ) [address] [place] [address] [place], [address], 07/02/2023 16:56:52 07/02/19 24 07/02/2023 MICRO SCOPI C FINDI NGS mucus Negati ve negati ve Not Available [facility] (Registration ) [address] [place] [address] [place], [address], 07/02/2023 16:56:52 07/02/19 24 07/02/2023 MICRO SCOPI C FINDI NGS casts Negati ve lpf negati ve Not Available [facility] (Registration ) [address] [place] [address] [place], [address], 07/02/2023 16:56:52 07/02/19 24 07/02/2023 MICRO SCOPI C FINDI NGS C S indicated? C S Done As Ordere d Not Available [facility] (Registration ) [address] [place] [address] [place], [address], 07/02/2023 16:56:52 07/02/19 24 07/03/2023 URINE CULTU RE urine culture Urine Cultu re ACTIO N ID AND SUSCE PTIBI LITY TO FOLLO W APPEA FARTUN Gram Negat marge Marcelle COLON Y COUNT Not Available [facility] (Registration ) [address] [place] [address] [place], [address], 07/03/2023 10:35:55 07/02/19 24 07/03/2023 URINE CULTU RE urine culture colon ies/m L >100, 000 Day 1 Resul t ISOLA VIKTORIA BELOW O:GNR (ORGA NISM ID: 1.1) - GRAM NEGAT MARGE MARCELLE Urine Cultu re (ORGA NISM ID: 1.1) - COLON Y COUNT (ORGA NISM ID: 1.1) - >100, 000 Not Available [facility] (Registration ) [address] [place] [address] [place], [address], 07/03/2023 10:35:55 07/02/19 24 07/04/2023 URINE CULTU RE urine culture Urine Cultu re ACTIO N ID AND SUSCE PTIBI LITY TO FOLLO W APPEA FATRUN Gram Negat marge Marcelle APPEA FARTUN Gram Negat marge Marcelle COLON Y COUNT Not Available [facility] (Registration ) [address] [place] [address] [place], [address], 07/04/2023 07:54:50 07/02/19 24 07/04/2023 URINE CULTU [...] IAXON E S <=1 F Cipro floxa rtacy S <=0.2 5 F Genta micin S <=1 F Nitro furan toin S 32 F Imipe nem S <=0.2 5 F Levof loxac in S <=0.1 2 F Tobra mycin S <=1 F Trime thopr im/Bagley lfame thoxa zole S <=20 F Piper acill in/Ta zobac alvarez S <=4 F Not Available [facility] (Registration ) [address] [place] [address] [place], [address], 07/04/2023 07:54:50 04/27/20 24 07/02/2023 urina lysis , dipst ick pH 5.0 Not Available [address], [place], [address], 07/02/2023 12:04:05 07/02/19 24 07/02/2023 urina lysis , dipst ick Blood Large Not Available [address], [place], [address], 07/02/2023 12:04:05 07/02/19 24 07/02/2023 urina lysis , dipst ick Specific [place] 1.030 Not Available [address] [address], [place], [address], 07/02/2023 12:04:05 07/02/19 24 07/02/2023 urina lysis , dipst ick Glucose Negati ve Not Available [address] [address], [place], [address], 07/02/2023 12:04:05 07/02/19 24 07/02/2023 urina lysis , dipst ick Appearance Turbid Not Available [address] [address], [place], [address], 07/02/2023 12:04:05 07/02/19 24 07/02/2023 urina lysis , dipst ick Color Red Not Available [address] [address], [place], [address], 07/02/2023 12:04:05 07/12/19 24 07/12/2023 COMPL ETE BLOOD COUNT W/DIF F WBC 7.26 10_3/ uL 4.4-10 .8 normal Not Available [facility] [address] [place], [address] 07/12/2023 11:00:35 07/12/19 24 07/12/2023 COMPL ETE BLOOD COUNT W/DIF F RBC 4.00 10_6/ uL 4.36-5 .78 low Not Available [address] [place], [address] 07/12/2023 11:00:35 07/12/19 24 07/12/2023 COMPL ETE BLOOD COUNT W/DIF F HGB 12.4 g/dL 13.5-1 7.5 low Not Available [address] [place], [address] 07/12/2023 11:00:35 07/12/19 24 07/12/2023 COMPL ETE BLOOD COUNT W/DIF F HCT 37.0 % 40.0-5 0.0 low Not Available [address] [place], [address] 07/12/2023 11:00:35 07/12/19 24 07/12/2023 COMPL ETE BLOOD COUNT W/DIF F MCV 93 fL 80-95 normal Not Available [address] [place], [address] 07/12/2023 11:00:35 07/12/19 24 07/12/2023 COMPL ETE BLOOD COUNT W/DIF F MCH 31.0 pg 27.0-3 3.0 normal Not Available [address] [place], [address] 07/12/2023 11:00:35 07/12/19 24 07/12/2023 COMPL ETE BLOOD COUNT W/DIF F MCHC 33.5 % 32.0-3 6.0 normal Not Available [address] [place], [address] 07/12/2023 11:00:35 07/12/19 24 07/12/2023 COMPL ETE BLOOD COUNT W/DIF F RDW 12.6 % 11.8-1 4.1 normal Not Available [address] [place], [address] 07/12/2023 11:00:35 07/12/19 24 07/12/2023 COMPL ETE BLOOD COUNT W/DIF F platelet count 359 10_3/ uL 130-40 0 normal Not Available [address] [place], [address] 07/12/2023 11:00:35 07/12/19 24 07/12/2023 COMPL ETE BLOOD COUNT W/DIF F MPV 8.3 fL 8.0-11 .0 normal Not Available [address] [place], [address] 07/12/2023 11:00:35 07/12/19 24 07/12/2023 COMPL ETE BLOOD COUNT W/DIF F neutrophils % 59.0 % Not Available [address] [place], [address] 07/12/2023 11:00:35 07/12/19 24 07/12/2023 COMPL ETE BLOOD COUNT W/DIF F lymphocytes % 30.0 % Not Available [address] [place], [address] 07/12/2023 11:00:35 07/12/19 24 07/12/2023 COMPL ETE BLOOD COUNT W/DIF F monocytes % 7.9 % Not Available [address] [place] [place], [address] 07/12/2023 11:00:35 07/12/19 24 07/12/2023 COMPL ETE BLOOD COUNT W/DIF F eosinophils % 1.9 % Not Available [address] [place], [address] 07/12/2023 11:00:35 07/12/19 24 07/12/2023 COMPL ETE BLOOD COUNT W/DIF F basophils % 0.6 % Not Available [address] [place], [address] 07/12/2023 11:00:35 07/12/19 24 07/12/2023 COMPL ETE BLOOD COUNT W/DIF F immature grans % 0.6 % Not Available [address] [place], [address] 07/12/2023 11:00:35 07/12/19 24 07/12/2023 COMPL ETE BLOOD COUNT W/DIF F nucleated RBC 0.0 % 0.0-0. 3 normal Not Available [address] [place], [address] 07/12/2023 11:00:35 07/12/19 24 07/12/2023 COMPL ETE BLOOD COUNT W/DIF F absolute neutrophil count 4.29 10_3/ uL 1.2-6. 7 normal Not Available [address] [place], [address] 07/12/2023 11:00:35 07/12/19 24 07/12/2023 COMPL ETE BLOOD COUNT W/DIF F absolute lymphocyte count 2.18 10_3/ uL 1.2-3. 4 normal Not Available [address] [place], [address] 07/12/2023 11:00:35 07/12/19 24 07/12/2023 COMPL ETE BLOOD COUNT W/DIF F absolute monocyte count 0.57 10_3/ uL 0.1-0. 8 normal Not Available [address] [place], [address] 07/12/2023 11:00:35 07/12/19 24 07/12/2023 COMPL ETE BLOOD COUNT W/DIF F absolute eosinophil count 0.14 10_3/ uL 0.0-0. 7 normal Not Available [address] [place], [address] 07/12/2023 11:00:35 07/12/19 24 07/12/2023 COMPL ETE BLOOD COUNT W/DIF F absolute basophil count 0.04 10_3/ uL 0.0-0. 2 normal Not Available [address] [place], [address] 07/12/2023 11:00:35 07/12/19 24 07/12/2023 URINA LYSIS color Yellow yellow Not Available [facility] [address] [place], [address] 07/12/2023 11:06:35 07/12/19 24 07/12/2023 URINA LYSIS clarity Clear clear Not Available [facility] [address] [place], [address] 07/12/2023 11:06:35 07/12/19 24 07/12/2023 URINA LYSIS specific gravity >= 1.030 1.005- 1.025 high Not Available [address] [place], [address] 07/12/2023 11:06:35 07/12/19 24 07/12/2023 URINA LYSIS pH 5.5 5-8 normal Not Available [facility] [address] [place], [address] 07/12/2023 11:06:35 07/12/19 24 07/12/2023 URINA LYSIS leukocyte esterase Negati ve negati ve Not Available [address] [place], [address] 07/12/2023 11:06:35 07/12/19 24 07/12/2023 URINA LYSIS nitrite Positi ve negati ve abnormal Not Available [address] [place], [address] 07/12/2023 11:06:35 07/12/19 24 07/12/2023 URINA LYSIS protein Negati ve mg/dL neg-tr jamila Not Available [address] [place], [address] 07/12/2023 11:06:35 07/12/19 24 07/12/2023 URINA LYSIS glucose Negati ve mg/dL negati ve Not Available [address] [place], [address] 07/12/2023 11:06:35 07/12/19 24 07/12/2023 URINA LYSIS ketones Negati ve mg/dL negati ve Not Available [address] [place], [address] 07/12/2023 11:06:35 07/12/19 24 07/12/2023 URINA LYSIS urobilinogen 0.2 mg/dL up to 0.2 Not Available [address] [place], [address] 07/12/2023 11:06:35 05/07/07/12/2023 URINA LYSIS bilirubin Negati ve negati ve Not Available [address] [place], [address] 07/12/2023 11:06:35 07/12/19 24 07/12/2023 URINA LYSIS blood Negati ve negati ve Not Available [address] [place], [address] 07/12/2023 11:06:35 07/12/19 24 07/12/2023 URINA LYSIS color Yellow yellow Not Available [facility] [address] [place], [address] 07/12/2023 11:13:38 07/12/19 24 07/12/2023 URINA LYSIS clarity Clear clear Not Available [facility] [address] [place], [address] 07/12/2023 11:13:38 07/12/19 24 07/12/2023 URINA LYSIS specific gravity >= 1.030 1.005- 1.025 high Not Available [address] [place], [address] 07/12/2023 11:13:38 07/12/19 24 07/12/2023 URINA LYSIS pH 5.5 5-8 normal Not Available [facility] [address] [place], [address] 07/12/2023 11:13:38 07/12/19 24 07/12/2023 URINA LYSIS leukocyte esterase Negati ve negati ve Not Available [address] [place], [address] 07/12/2023 11:13:38 07/12/19 24 07/12/2023 URINA LYSIS nitrite Positi ve negati ve abnormal Not Available [address] [place], [address] 07/12/2023 11:13:38 07/12/19 24 07/12/2023 URINA LYSIS protein Negati ve mg/dL neg-tr jamila Not Available [address] [place], [address] 07/12/2023 11:13:38 07/12/19 24 07/12/2023 URINA LYSIS glucose Negati ve mg/dL negati ve Not Available [address] [place], [address] 07/12/2023 11:13:38 07/12/19 24 07/12/2023 URINA LYSIS ketones Negati ve mg/dL negati ve Not Available [address] [place], [address] 07/12/2023 11:13:38 07/12/19 24 07/12/2023 URINA LYSIS urobilinogen 0.2 mg/dL up to 0.2 Not Available [address] [place], [address] 07/12/2023 11:13:38 07/12/19 24 07/12/2023 URINA LYSIS bilirubin Negati ve negati ve Not Available [address] [place], [address] 07/12/2023 11:13:38 07/12/19 24 07/12/2023 URINA LYSIS blood Negati ve negati ve Not Available [address] [place], [address] 07/12/2023 11:13:38 07/12/19 24 07/12/2023 MICRO SCOPI C FINDI NGS WBC 5-10 hpf 0-5 Not Available [facility] [address] [place], [address] 07/12/2023 11:13:38 07/12/19 24 07/12/2023 MICRO SCOPI C FINDI NGS RBC 0-2 hpf 0-2 Not Available [facility] [address] [place], [address] 07/12/2023 11:13:38 07/12/19 24 07/12/2023 MICRO SCOPI C FINDI NGS epithelial cells Rare hpf negati ve Not Available [address] [place], [address] 07/12/2023 11:13:38 07/12/19 24 07/12/2023 MICRO SCOPI C FINDI NGS bacteria Few hpf negati ve Not Available [address] [place], [address] 07/12/2023 11:13:38 07/12/19 24 07/12/2023 MICRO SCOPI C FINDI NGS crystals Negati ve hpf negati ve Not Available [address] [place], [address] 07/12/2023 11:13:38 07/12/19 24 07/12/2023 MICRO SCOPI C FINDI NGS mucus Negati ve negati ve Not Available [address] [place], [address] 07/12/2023 11:13:38 07/12/19 24 07/12/2023 MICRO SCOPI C FINDI NGS casts Negati ve lpf negati ve Not Available [address] [place], [address] 07/12/2023 11:13:38 07/12/19 24 07/12/2023 MICRO SCOPI C FINDI NGS C S indicated? C S Done As Ordere d Not Available Cameron monk [address] [place], [address] 07/12/2023 11:13:38 07/12/19 24 07/12/2023 COMPR EHENS MARGE METAB OLIC PANEL calcium 9.0 mg/dL 8.5-10 .1 normal Not Available [address] [place], [address] 07/12/2023 11:22:39 07/12/19 24 07/12/2023 COMPR EHENS MARGE METAB OLIC PANEL glucose 112 mg/dL 74-106 high Not Available [facility] [address] [place], [address] 07/12/2023 11:22:39 07/12/19 24 07/12/2023 COMPR EHENS MARGE METAB OLIC PANEL BUN 23 mg/dL 7-18 high Not Available [facility] [address] [place], [address] 07/12/2023 11:22:39 07/12/19 24 07/12/2023 COMPR EHENS MARGE METAB OLIC PANEL creatinine 1.2 mg/dL 0.70-1 .30 normal Not Available [address] [place], [address] 07/12/2023 11:22:39 07/12/19 24 07/12/2023 COMPR EHENS [...] young er-ag ed adult s. Not Available [address] [place], [address] 07/12/2023 11:22:39 07/12/19 24 07/12/2023 COMPR EHENS MARGE METAB OLIC PANEL total protein 7.9 g/dL 6.4-8. 2 normal Not Available [address] [place], [address] 07/12/2023 11:22:39 07/12/19 24 07/12/2023 COMPR EHENS MARGE METAB OLIC PANEL albumin 3.7 g/dL 3.4-5. 0 normal Not Available [address] [place], [address] 07/12/2023 11:22:39 07/12/19 24 07/12/2023 COMPR EHENS MARGE METAB OLIC PANEL bilirubin, total 0.4 mg/dL 0.2-1. 0 normal Not Available [address] [place], [address] 07/12/2023 11:22:39 07/12/19 24 07/12/2023 COMPR EHENS MARGE METAB OLIC PANEL alk phos 76 U/L 46-116 normal Not Available [address] [place], [address] 07/12/2023 11:22:39 07/12/19 24 07/12/2023 COMPR EHENS MARGE METAB OLIC PANEL sodium 142 mmol/ L 136-14 5 normal Not Available [address] [place], [address] 07/12/2023 11:22:39 07/12/19 24 07/12/2023 COMPR EHENS MARGE METAB OLIC PANEL potassium 3.9 mmol/ L 3.5-5. 1 normal Not Available [address] [place], [address] 07/12/2023 11:22:39 07/12/19 24 07/12/2023 COMPR EHENS MARGE METAB OLIC PANEL chloride 106 mmol/ L 98-107 normal Not Available [address] [place], [address] 07/12/2023 11:22:39 07/12/19 24 07/12/2023 COMPR EHENS MARGE METAB OLIC PANEL CO2 25.1 mmol/ L 21.0-3 2.0 normal Not Available [address] [place], [address] 07/12/2023 11:22:39 07/12/19 24 07/12/2023 COMPR EHENS MARGE METAB OLIC PANEL anion gap 10.9 mmol/ L 3-11 normal Not Available [address] [place], [address] 07/12/2023 11:22:39 07/12/19 24 07/12/2023 COMPR EHENS MARGE METAB OLIC PANEL AST 24 U/L 15-37 normal Not Available [facility] [address] [place], [address] 07/12/2023 11:22:39 07/12/19 24 07/12/2023 COMPR EHENS MARGE METAB OLIC PANEL ALT 33 U/L 16-63 normal Not Available [facility] [address] [place], [address] 07/12/2023 11:22:39 07/12/19 24 07/13/2023 URINE CULTU RE urine culture Urine Cultu re APPEA FARTUN Gram Posit marge [place] COLON Y COUNT Not Available [address] [place], [address] 07/13/2023 11:32:49 07/12/19 24 07/13/2023 URINE CULTU RE urine culture colon ies/m L <10,0 00 Day 1 Resul t ISOLA VIKTORIA BELOW O:GPF (ORGA NISM ID: 1.1) - GRAM POSIT MARGE RALEIGH Urine Cultu re (ORGA NISM ID: 1.1) - COLON Y COUNT (ORGA NISM ID: 1.1) - <10,0 00 Not Available [address] [place], [address] 07/13/2023 11:32:49 07/12/19 24 07/14/2023 URINE CULTU RE urine culture Urine Cultu re APPEA FARTUN Gram Posit marge [place] APPEA FARTUN Mixed Gram Posit marge [place] COLON Y COUNT Not Available [address] [place], [address] 07/14/2023 12:09:33 07/12/19 24 07/14/2023 URINE CULTU [...] ID: 1.1) - <10,0 00 Not Available [address] [place], [address] 07/14/2023 12:09:33 07/12/19 24 07/14/2023 PSA, ULTRA [...] robert ntrat ion >=0.2 0 ng/mL . ANIL Huerta NOTE: The above refer ence inter neo and myron ing is inten ded for healt hy males witho ut prost atect alton. The testi ng metho d is an elect BBOXX milum inesc ence assay manuf actur ed by [employer] and perfo rmed on the Barrett syste m. Value s obtai radha with diffe rent assay metho ds or kits may be diffe rent and canno t be used inter domínguez eapillo . Test resul ts canno t be inter prete d as absol round valley evide nce for the prese nce or absen ce of molly barbosa se. Test Perfo rmed by: Alex Peralta [employer] [facility] - [facility] [address] , [place] [address] Lab Direc tor: Hoang Cruz Ph.D. ; CLIA# [id number] Not Available [facility] [address], [place], [address] 07/18/2023 08:15:59 07/12/19 24 07/16/2023 TESTO STERO [...] e noemi cteri stics deter mined by Alex cuenca in a abbi r consi stent with CLIA miracle alvarez ts. This test has not been clear ed or appro joan by the U.S. Food and Drug Admin istra tion. Test Perfo rmed by: Alex cuenca [facility] [employer] [facility] - [employer] [employer] [facility] [address] [place] [address] Lab Direc tor: Hoang Cruz Ph.D. ; CLIA# [id number] Not Available [address] [place], [address] 07/18/2023 08:15:58 10/12/19 24 10/12/2023 COMPL ETE BLOOD COUNT W/DIF F WBC 6.95 10_3/ uL 4.4-10 .8 normal Not Available [address] [place], [address] 10/12/2023 10:43:11 10/12/19 24 10/12/2023 COMPL ETE BLOOD COUNT W/DIF F RBC 3.98 10_6/ uL 4.36-5 .78 low Not Available [address] [place], [address] 10/12/2023 10:43:11 10/12/19 24 10/12/2023 COMPL ETE BLOOD COUNT W/DIF F HGB 12.5 g/dL 13.5-1 7.5 low Not Available [address] [place], [address] 10/12/2023 10:43:11 10/12/19 24 10/12/2023 COMPL ETE BLOOD COUNT W/DIF F HCT 37.9 % 40.0-5 0.0 low Not Available [address] [place], [address] 10/12/2023 10:43:11 10/12/19 24 10/12/2023 COMPL ETE BLOOD COUNT W/DIF F MCV 95 fL 80-95 normal Not Available [facility] [address] [place], [address] 10/12/2023 10:43:11 10/12/19 24 10/12/2023 COMPL ETE BLOOD COUNT W/DIF F MCH 31.4 pg 27.0-3 3.0 normal Not Available [address] [place], [address] 10/12/2023 10:43:11 10/12/19 24 10/12/2023 COMPL ETE BLOOD COUNT W/DIF F MCHC 33.0 % 32.0-3 6.0 normal Not Available [address] [place], [address] 10/12/2023 10:43:11 10/12/19 24 10/12/2023 COMPL ETE BLOOD COUNT W/DIF F RDW 13.0 % 11.8-1 4.1 normal Not Available [address] [place], [address] 10/12/2023 10:43:11 10/12/19 24 10/12/2023 COMPL ETE BLOOD COUNT W/DIF F platelet count 284 10_3/ uL 130-40 0 normal Not Available [address] [place], [address] 10/12/2023 10:43:11 10/12/19 24 10/12/2023 COMPL ETE BLOOD COUNT W/DIF F MPV 8.6 fL 8.0-11 .0 normal Not Available [address] [place], [address] 10/12/2023 10:43:11 10/12/19 24 10/12/2023 COMPL ETE BLOOD COUNT W/DIF F neutrophils % 56.1 % Not Available [address] [place], [address] 10/12/2023 10:43:11 10/12/19 24 10/12/2023 COMPL ETE BLOOD COUNT W/DIF F lymphocytes % 30.9 % Not Available [address] [place], [address] 10/12/2023 10:43:11 10/12/19 24 10/12/2023 COMPL ETE BLOOD COUNT W/DIF F monocytes % 8.6 % Not Available [address] [place], [address] 10/12/2023 10:43:11 10/12/19 24 10/12/2023 COMPL ETE BLOOD COUNT W/DIF F eosinophils % 3.7 % Not Available [address] [place], [address] 10/12/2023 10:43:11 10/12/19 24 10/12/2023 COMPL ETE BLOOD COUNT W/DIF F basophils % 0.4 % Not Available [address] [place], [address] 10/12/2023 10:43:11 10/12/19 24 10/12/2023 COMPL ETE BLOOD COUNT W/DIF F immature grans % 0.3 % Not Available [address] [place], [address] 10/12/2023 10:43:11 10/12/19 24 10/12/2023 COMPL ETE BLOOD COUNT W/DIF F nucleated RBC 0.0 % 0.0-0. 3 normal Not Available [address] [place], [address] 10/12/2023 10:43:11 10/12/19 24 10/12/2023 COMPL ETE BLOOD COUNT W/DIF F absolute neutrophil count 3.89 10_3/ uL 1.2-6. 7 normal Not Available [address] [place], [address] 10/12/2023 10:43:11 10/12/19 24 10/12/2023 COMPL ETE BLOOD COUNT W/DIF F absolute lymphocyte count 2.15 10_3/ uL 1.2-3. 4 normal Not Available [address] [place], [address] 10/12/2023 10:43:11 10/12/19 24 10/12/2023 COMPL ETE BLOOD COUNT W/DIF F absolute monocyte count 0.60 10_3/ uL 0.1-0. 8 normal Not Available [address] [place], [address] 10/12/2023 10:43:11 10/12/19 24 10/12/2023 COMPL ETE BLOOD COUNT W/DIF F absolute eosinophil count 0.26 10_3/ uL 0.0-0. 7 normal Not Available [address] [place], [address] 10/12/2023 10:43:11 10/12/19 24 10/12/2023 COMPL ETE BLOOD COUNT W/DIF F absolute basophil count 0.03 10_3/ uL 0.0-0. 2 normal Not Available [address] [place], [address] 10/12/2023 10:43:11 10/12/19 24 10/12/2023 COMPR EHENS MARGE METAB OLIC PANEL calcium 9.1 mg/dL 8.5-10 .1 normal Not Available [address] [place], [address] 10/12/2023 12:11:27 10/12/19 24 10/12/2023 COMPR EHENS MARGE METAB OLIC PANEL glucose 113 mg/dL 74-106 high Not Available [facility] [address] [place], [address] 10/12/2023 12:11:27 10/12/19 24 10/12/2023 COMPR EHENS MARGE METAB OLIC PANEL BUN 24 mg/dL 7-18 high Not Available Alke [facility] [address] [place], [address] 10/12/2023 12:11:27 10/12/19 24 10/12/2023 COMPR EHENS MARGE METAB OLIC PANEL creatinine 1.1 mg/dL 0.70-1 .30 normal Not Available [address] [place], [address] 10/12/2023 12:11:27 10/12/19 24 10/12/2023 COMPR EHENS [...] young er-ag ed adult s. Not Available [address] [place], [address] 10/12/2023 12:11:27 10/12/19 24 10/12/2023 COMPR EHENS MARGE METAB OLIC PANEL total protein 7.9 g/dL 6.4-8. 2 normal Not Available [address] [place], [address] 10/12/2023 12:11:27 10/12/19 24 10/12/2023 COMPR EHENS MARGE METAB OLIC PANEL albumin 3.9 g/dL 3.4-5. 0 normal Not Available [address] [place], [address] 10/12/2023 12:11:27 10/12/19 24 10/12/2023 COMPR EHENS MARGE METAB OLIC PANEL bilirubin, total 0.36 mg/dL 0.2-1. 0 normal Not Available [address] [place], [address] 10/12/2023 12:11:27 10/12/19 24 10/12/2023 COMPR EHENS MARGE METAB OLIC PANEL alk phos 97 U/L 46-116 normal Not Available [address] [place], [address] 10/12/2023 12:11:27 10/12/19 24 10/12/2023 COMPR EHENS MARGE METAB OLIC PANEL sodium 142 mmol/ L 136-14 5 normal Not Available [address] [place], [address] 10/12/2023 12:11:27 10/12/19 24 10/12/2023 COMPR EHENS MARGE METAB OLIC PANEL potassium 3.9 mmol/ L 3.5-5. 1 normal Not Available [address] [place], [address] 10/12/2023 12:11:27 10/12/19 24 10/12/2023 COMPR EHENS MARGE METAB OLIC PANEL chloride 104 mmol/ L 98-107 normal Not Available [address] [place], [address] 10/12/2023 12:11:27 10/12/19 24 10/12/2023 COMPR EHENS MARGE METAB OLIC PANEL CO2 29.7 mmol/ L 21.0-3 2.0 normal Not Available [address] [place], [address] 10/12/2023 12:11:27 10/12/19 24 10/12/2023 COMPR EHENS AMRGE METAB OLIC PANEL anion gap 8.3 mmol/ L 3-11 normal Not Available [address] [place], [address] 10/12/2023 12:11:27 10/12/19 24 10/12/2023 COMPR EHENS MARGE METAB OLIC PANEL AST 22 U/L 15-37 normal Not Available [facility] [address] [place], [address] 10/12/2023 12:11:27 10/12/19 24 10/12/2023 COMPR EHENS MARGE METAB OLIC PANEL ALT 38 U/L 16-63 normal Not Available Alek [address] [place], [address] 10/12/2023 12:11:27 10/12/19 24 10/15/2023 PSA, ULTRA [...] ence assay manuf actur ed by [employer] and perfo rmed on the Barrett syste m. Value s obtai radha with diffe rent assay metho ds or kits may be diffe rent and canno t be used inter sang varghese . Test resul ts canno t be inter prete d as absol round valley evide nce for the prese nce or absen ce of molly barbosa . Test Perfo rmed by: [facility] [place] [address], [place] [address] Lab Direc tor: Leroy Alegria nn Ph.D. ; CLIA# [id number] Not Available [address] [place], [address] 10/18/2023 16:45:07 10/12/19 24 10/18/2023 TESTO STERO NE, TOTAL testosterone , total 7.2 NG/dL 240-95 0 abnormal ----- ----- ----- ----A DDITI ONAL INFOR MATIO N---- ----- ----- ----- Testi ng perfo rmed by Liqui luci Chrom atogr aphy- Tande m Mass Spect romet ry (LC-M S/MS) . This test was devel oped and its perfo rmanc e noemi cteri stics [facility]i stent with CLCLAYTON alvarez ts. This test has not been clear ed or appro joan by the U.S. Food and Drug Admin istra tion. Test [facility]med by: [facility] [place] [address], [place] [address] Lab Direc tor: Leroy Alegria nn Ph.D. ; CLIA# [id number] Not Available [address] [place], [address] 10/18/2023 16:45:06 11/19/19 24 11/19/2023 MICRO SCOPI C FINDI NGS WBC Negati ve hpf 0-5 Not Available [address] [place], [address] 11/19/2023 11:59:28 11/19/19 24 11/19/2023 MICRO SCOPI C FINDI NGS RBC 3-5 hpf 0-2 abnormal Not Available [address] [place], [address] 11/19/2023 11:59:28 11/19/19 24 11/19/2023 MICRO SCOPI C FINDI NGS epithelial cells Negati ve hpf negati ve Not Available [address] [place], [address] 11/19/2023 11:59:28 11/19/19 24 11/19/2023 MICRO SCOPI C FINDI NGS bacteria Negati ve hpf negati ve Not Available [address] [place], [address] 11/19/2023 11:59:28 11/19/19 24 11/19/2023 MICRO SCOPI C FINDI NGS crystals Negati ve hpf negati ve Not Available [address] [place], [address] 11/19/2023 11:59:28 11/19/19 24 11/19/2023 MICRO SCOPI C FINDI NGS mucus Negati ve negati ve Not Available [address] [place], [address] 11/19/2023 11:59:28 11/19/19 24 11/19/2023 MICRO SCOPI C FINDI NGS casts Negati ve lpf negati ve Not Available [address] [place], [address] 11/19/2023 11:59:28 11/19/19 24 11/19/2023 MICRO SCOPI C FINDI NGS C S indicated? No Not Available [address], [address] 11/19/2023 11:59:28 11/19/19 24 11/19/2023 URINA LYSIS color Yellow yellow Not Available [facility] [address] [place], [address] 11/19/2023 11:59:28 11/19/19 24 11/19/2023 URINA LYSIS clarity Clear clear Not Available [facility] [address] [place], [address] 11/19/2023 11:59:28 11/19/19 24 11/19/2023 URINA LYSIS specific gravity 1.010 1.005- 1.025 normal Not Available [address] [place], [address] 11/19/2023 11:59:28 11/19/19 24 11/19/2023 URINA LYSIS pH 6.0 5-8 normal Not Available [facility]k [facility] [address], [address] 11/19/2023 11:59:28 11/19/19 24 11/19/2023 URINA LYSIS leukocyte esterase Negati ve negati ve Not Available [address] [place], [address] 11/19/2023 11:59:28 11/19/19 24 11/19/2023 URINA LYSIS nitrite Negati ve negati ve Not Available [address] [place], [address] 11/19/2023 11:59:28 11/19/19 24 11/19/2023 URINA LYSIS protein Negati ve mg/dL neg-tr jamila Not Available [address] [place], [address] 11/19/2023 11:59:28 11/19/19 24 11/19/2023 URINA LYSIS glucose Negati ve mg/dL negati ve Not Available [address] [place], [id number] 11/19/2023 11:59:28 11/19/19 24 11/19/2023 URINA LYSIS ketones Negati ve mg/dL negati ve Not Available [address] [place], [address] 11/19/2023 11:59:28 11/19/19 24 11/19/2023 URINA LYSIS urobilinogen 0.2 mg/dL up to 0.2 Not Available [address] [place], [address] 11/19/2023 11:59:28 11/19/19 24 11/19/2023 URINA LYSIS bilirubin Negati ve negati ve Not Available [address] [place], [id number] 11/19/2023 11:59:28 11/19/19 24 11/19/2023 URINA LYSIS blood Trace- intact negati ve abnormal Not Available [address] [place], [address] 11/19/2023 11:59:28 11/19/19 24 11/19/2023 URINA LYSIS color Yellow yellow Not Available [facility] [address] [place], [id number] 11/19/2023 11:52:27 11/19/19 24 11/19/2023 URINA LYSIS clarity Clear clear Not Available [facility] [address] [place], [id number] 11/19/2023 11:52:27 11/19/19 24 11/19/2023 URINA LYSIS specific gravity 1.010 1.005- 1.025 normal Not Available [address] [place], [id number] 11/19/2023 11:52:27 11/19/19 24 11/19/2023 URINA LYSIS pH 6.0 5-8 normal Not Available [facility] [address] [place], [id number] 11/19/2023 11:52:27 11/19/19 24 11/19/2023 URINA LYSIS leukocyte esterase Negati ve negati ve Not Available [address] [place], [address] 11/19/2023 11:52:27 11/19/19 24 11/19/2023 URINA LYSIS nitrite Negati ve negati ve Not Available [address] [place], [address] 11/19/2023 11:52:27 11/19/19 24 11/19/2023 URINA LYSIS protein Negati ve mg/dL neg-tr jamila Not Available [address] [place], [address] 11/19/2023 11:52:27 11/19/19 24 11/19/2023 URINA LYSIS glucose Negati ve mg/dL negati ve Not Available [address] [place], [address] 11/19/2023 11:52:27 11/19/19 24 11/19/2023 URINA LYSIS ketones Negati ve mg/dL negati ve Not Available [address] [place], [address] 11/19/2023 11:52:27 11/19/19 24 11/19/2023 URINA LYSIS urobilinogen 0.2 mg/dL up to 0.2 Not Available [address] [place], [address] 11/19/2023 11:52:27 11/19/19 24 11/19/2023 URINA LYSIS bilirubin Negati ve negati ve Not Available [address] [place], [address] 11/19/2023 11:52:27 11/19/19 24 11/19/2023 URINA LYSIS blood Trace- intact negati ve abnormal Not Available [address] [place], [address] 11/19/2023 11:52:27 11/19/19 24 11/19/2023 COMPR EHENS MARGE METAB OLIC PANEL calcium 9.4 mg/dL 8.5-10 .1 normal Not Available [address] [place], [address] 11/19/2023 09:58:13 11/19/19 24 11/19/2023 COMPR EHENS MARGE METAB OLIC PANEL glucose 133 mg/dL 74-106 high Not Available Alek luo [place] [address] [place], [address] 11/19/2023 09:58:13 11/19/19 24 11/19/2023 COMPR EHENS MARGE METAB OLIC PANEL BUN 23 mg/dL 7-18 high Not Available Alek luo [address] [place], [address] 11/19/2023 09:58:13 11/19/19 24 11/19/2023 COMPR EHENS MARGE METAB OLIC PANEL creatinine 1.0 mg/dL 0.70-1 .30 normal Not Available [address] [place], [address] 11/19/2023 09:58:13 11/19/1911/19/2023 COMPR EHENS MARGE METAB OLIC PANEL estimated [...] young er-ag ed adult s. Not Available [address] [place], [address] 11/19/2023 09:58:13 11/19/19 24 11/19/2023 COMPR EHENS MARGE METAB OLIC PANEL total protein 8.0 g/dL 6.4-8. 2 normal Not Available [address] [place], [address] 11/19/2023 09:58:13 11/19/1911/19/2023 COMPR EHENS MARGE METAB OLIC PANEL albumin 3.6 g/dL 3.4-5. 0 normal Not Available [address] [place], [address] 11/19/2023 09:58:13 11/19/19 24 11/19/2023 COMPR EHENS MARGE METAB OLIC PANEL bilirubin, total 0.37 mg/dL 0.2-1. 0 normal Not Available [address] [place], [address] 11/19/2023 09:58:13 11/19/1911/19/2023 COMPR EHENS MARGE METAB OLIC PANEL alk phos 105 U/L 46-116 normal Not Available [address] [place], [address] 11/19/2023 09:58:13 11/19/19 24 11/19/2023 COMPR EHENS MARGE METAB OLIC PANEL sodium 142 mmol/ L 136-14 5 normal Not Available [address] [place], [address] 11/19/2023 09:58:13 11/19/19 24 11/19/2023 COMPR EHENS MARGE METAB OLIC PANEL potassium 4.0 mmol/ L 3.5-5. 1 normal Not Available [address] [place], [address] 11/19/2023 09:58:13 11/19/19 24 11/19/2023 COMPR EHENS MARGE METAB OLIC PANEL chloride 106 mmol/ L 98-107 normal Not Available [address] [place], [address] 11/19/2023 09:58:13 11/19/19 24 11/19/2023 COMPR EHENS MARGE METAB OLIC PANEL CO2 27.8 mmol/ L 21.0-3 2.0 normal Not Available [address] [place], [address] 11/19/2023 09:58:13 11/19/19 24 11/19/2023 COMPR EHENS MARGE METAB OLIC PANEL anion gap 8.2 mmol/ L 3-11 normal Not Available [address] [place], [address] 11/19/2023 09:58:13 11/19/19 24 11/19/2023 COMPR EHENS MARGE METAB OLIC PANEL AST 36 U/L 15-37 normal Not Available Alek ulo [address] [place], [address] 11/19/2023 09:58:13 11/19/19 24 11/19/2023 COMPR EHENS MARGE METAB OLIC PANEL ALT 44 U/L 16-63 normal Not Available Alek luo [address] [place], [address] 11/19/2023 09:58:13 11/19/19 24 11/19/2023 COMPL ETE BLOOD COUNT W/DIF F WBC 8.69 10_3/ uL 4.4-10 .8 normal Not Available [address] [place], [address] 11/19/2023 09:41:13 11/19/19 24 11/19/2023 COMPL ETE BLOOD COUNT W/DIF F RBC 3.86 10_6/ uL 4.36-5 .78 low Not Available [address] [place], [address] 11/19/2023 09:41:13 11/19/19 24 11/19/2023 COMPL ETE BLOOD COUNT W/DIF F HGB 12.1 g/dL 13.5-1 7.5 low Not Available [address] [place], [address] 11/19/2023 09:41:13 11/19/1911/19/2023 COMPL ETE BLOOD COUNT W/DIF F HCT 36.2 % 40.0-5 0.0 low Not Available [address] [place], [address] 11/19/2023 09:41:13 11/19/19 24 11/19/2023 COMPL ETE BLOOD COUNT W/DIF F MCV 94 fL 80-95 normal Not Available [address] [place], [address] 11/19/2023 09:41:13 11/19/19 24 11/19/2023 COMPL ETE BLOOD COUNT W/DIF F MCH 31.3 pg 27.0-3 3.0 normal Not Available [address] [place], [address] 11/19/2023 09:41:13 11/19/19 24 11/19/2023 COMPL ETE BLOOD COUNT W/DIF F MCHC 33.4 % 32.0-3 6.0 normal Not Available [address] [place], [address] 11/19/2023 09:41:13 11/19/19 24 11/19/2023 COMPL ETE BLOOD COUNT W/DIF F RDW 12.7 % 11.8-1 4.1 normal Not Available [address] [place], [address] 11/19/2023 09:41:13 11/19/1911/19/2023 COMPL ETE BLOOD COUNT W/DIF F platelet count 339 10_3/ uL 130-40 0 normal Not Available [address] [place], [address] 11/19/2023 09:41:13 11/19/1911/19/2023 COMPL ETE BLOOD COUNT W/DIF F MPV 8.3 fL 8.0-11 .0 normal Not Available [address] [place], [address] 11/19/2023 09:41:13 11/19/1911/19/2023 COMPL ETE BLOOD COUNT W/DIF F neutrophils % 64.7 % Not Available [address] [place], [address] 11/19/2023 09:41:13 11/19/1911/19/2023 COMPL ETE BLOOD COUNT W/DIF F lymphocytes % 22.0 % Not Available [address] [place], [address] 11/19/2023 09:41:13 11/19/1911/19/2023 COMPL ETE BLOOD COUNT W/DIF F monocytes % 9.7 % Not Available [address] [place], [address] 11/19/2023 09:41:13 11/19/1911/19/2023 COMPL ETE BLOOD COUNT W/DIF F eosinophils % 2.5 % Not Available [address] [place], [address] 11/19/2023 09:41:13 11/19/1911/19/2023 COMPL ETE BLOOD COUNT W/DIF F basophils % 0.5 % Not Available [address] [place], [address] 11/19/2023 09:41:13 11/19/1911/19/2023 COMPL ETE BLOOD COUNT W/DIF F immature grans % 0.6 % Not Available [address] [place], [address] 11/19/2023 09:41:13 11/19/19 24 11/19/2023 COMPL ETE BLOOD COUNT W/DIF F nucleated RBC 0.0 % 0.0-0. 3 normal Not Available [address] [place], [address] 11/19/2023 09:41:13 11/19/19 24 11/19/2023 COMPL ETE BLOOD COUNT W/DIF F absolute neutrophil count 5.63 10_3/ uL 1.2-6. 7 normal Not Available [address] [place], [address] 11/19/2023 09:41:13 11/19/19 24 11/19/2023 COMPL ETE BLOOD COUNT W/DIF F absolute lymphocyte count 1.91 10_3/ uL 1.2-3. 4 normal Not Available [address] [place], [address] 11/19/2023 09:41:13 11/19/19 24 11/19/2023 COMPL ETE BLOOD COUNT W/DIF F absolute monocyte count 0.84 10_3/ uL 0.1-0. 8 high Not Available [address] [place], [address] 11/19/2023 09:41:13 11/19/19 24 11/19/2023 COMPL ETE BLOOD COUNT W/DIF F absolute eosinophil count 0.22 10_3/ uL 0.0-0. 7 normal Not Available [address] [place], [address] 11/19/2023 09:41:13 11/19/19 24 11/19/2023 COMPL ETE BLOOD COUNT W/DIF F absolute basophil count 0.04 10_3/ uL 0.0-0. 2 normal Not Available [address] [place], [address] 11/19/2023 09:41:13 11/19/19 24 11/19/2023 URINA LYSIS color Yellow yellow Not Available Alek [address] [place], [address] 11/19/2023 09:40:12 11/19/19 24 11/19/2023 URINA LYSIS clarity Clear clear Not Available Alek luo [address] [place], [address] 11/19/2023 09:40:12 11/19/19 24 11/19/2023 URINA LYSIS specific gravity 1.015 1.005- 1.025 normal Not Available [address] [place], [address] 11/19/2023 09:40:12 11/19/19 24 11/19/2023 URINA LYSIS pH 6.0 5-8 normal Not Available Alek luo [address] [place], [address] 11/19/2023 09:40:12 11/19/19 24 11/19/2023 URINA LYSIS leukocyte esterase Negati ve negati ve Not Available [address] [place], [address] 11/19/2023 09:40:12 11/19/19 24 11/19/2023 URINA LYSIS nitrite Negati ve negati ve Not Available [address] [place], [address] 11/19/2023 09:40:12 11/19/19 24 11/19/2023 URINA LYSIS protein Negati ve mg/dL neg-tr jamila Not Available [address] [place], [address] 11/19/2023 09:40:12 11/19/19 24 11/19/2023 URINA LYSIS glucose Negati ve mg/dL negati ve Not Available [address] [place], [address] 11/19/2023 09:40:12 11/19/19 24 11/19/2023 URINA LYSIS ketones Negati ve mg/dL negati ve Not Available [address] [place], [address] 11/19/2023 09:40:12 11/19/19 24 11/19/2023 URINA LYSIS urobilinogen 0.2 mg/dL up to 0.2 Not Available [address] [place], [address] 11/19/2023 09:40:12 11/19/1911/19/2023 URINA LYSIS bilirubin Negati ve negati ve Not Available [address] [place], [address] 11/19/2023 09:40:12 11/19/1911/19/2023 URINA LYSIS blood Negati ve negati ve Not Available [address] [place], [address] 11/19/2023 09:40:12 12/29/1912/31/2023 URINE CULTU RE urine culture Urine Cultu re Proba ble conta minat ed colle ction . APPEA FARTUN Mixed Gram Posit marge [place] APPEA FARTUN Mixed Gram Posit marge [place] COLON Y COUNT Not Available [address] [place], [address] 12/31/2023 08:30:35 12/29/1912/31/2023 URINE CULTU RE urine culture colon ies/m L <10,0 00 COLON Y COUNT 10,00 0 - 50,00 0 Day 1 Resul t ISOLA VIKTORIA BELOW Day 2 Resul t ISOLA VIKTORIA BELOW O:GPF M (ORGA NISM ID: 1.1) - GRAM POSIT MARGE [place] ,MIXE D Urine Cultu re (ORGA NISM ID: 1.1) - COLON Y COUNT (ORGA NISM ID: 1.1) - 10,00 0 - 50,00 0 Not Available [address] [place], [address] 12/31/2023 08:30:35 12/29/1912/30/2023 URINE CULTU RE urine culture Urine Cultu re APPEA FARTUN Mixed Gram Posit marge [place] COLON Y COUNT Not Available [address] [place], [address] 12/30/2023 12:55:36 12/29/1912/30/2023 URINE CULTU RE urine culture colon ies/m L <10,0 00 Day 1 Resul t ISOLA VIKTORIA BELOW O:GPF M (ORGA NISM ID: 1.1) - GRAM POSIT MARGE [place] ,MIXE D Urine Cultu re (ORGA NISM ID: 1.1) - COLON Y COUNT (ORGA NISM ID: 1.1) - <10,0 00 Not Available [facility] [address] [facility] , [place], [address] 12/30/2023 12:55:36 04/04/19 24 04/01/2023 elect avani sy am EKG PATIMELISSA De La Rosa NAME: Nain Mckeon UNIT #: [id number] ORDERI NG [facility] ER: Carie Arguello M.D. ACCOUN T #: [id number] PRIMAR Y [facility] ER: DEWAYNE JOHNSON MD DATE/T JAYANT OF SERVIC E : 1750 : 1950 [facility] [employer] LOCATI ON: ER ------ ------ --- APPROV ED REPORT ------ ------ -- Exam: Restin g ECG Reason for Exam: Dizzin samanta de la rosa Locati on: E HR:96 bpm ECG Measur ements Heart Rate 96 AXIS RI 145 P 58 QRSd 97 QRS 56 QT 369 T 5 QTc 467 Conclu isabella Sinus rhythm ...nor mal P axis, V-rate 60- 99 ------ ------ ------ ------ ------ ------ ------ ------ ------ ------ ------ ------ ------ ------ ------ ------ ---- ------ - E-Sign Date: E-Sign Time: 1758 ------ ------ --- ADDEND APPRO ED REPORT ------ ------ -- Exam: Restin g ECG Reason for Exam: Dizzin samanta de la rosa Locati on: E HR:96 bpm ECG Measur ements Heart Rate 96 AXIS RI 145 P 58 QRSd 97 QRS 56 QT 369 T 5 QTc 467 Conclu isabella Sinus rhythm ...nor mal P axis, V-rate 60- 99 I have review ed and I agree with the emerge ncy room physic fidel's ECG interp retati on. Electr onical ly signed by: [id number] Cosign ed by: aurelio [facility] [address] [facility] [place] [place], [address] 04/04/2023 17:10:23 11/19/19 24 11/19/2023 vrad repor t Guille t Name: Nain Mckeon Unit #: [id number] Loc: ER Orderi ng Provid er: Accoun t #: [id number] Status : REG ER Primar y [...] ticate d by: Dolores Albarran. Orderi ng:P.S BORIS Bustamante MD Access ion#=[id number] Ordere d By: CC: ------ ------ ------ ------ ------ ------ ------ ------ ------ ------ ------ ------ ---- Dictat ed By: Report s vrad [id number] Transc ribed By: Di Merge 1108 This is privil eged, confid [...] at the addres s above. Thank- you. [facility] [address] [place], [address] 11/29/2023 07:52:53 11/21/1911/19/2023 CT, abdom en + pelvi s, w/ contr ast Patien t Name: Nain Mckeon Unit #: [id number] Loc: ER Orderi ng Provid er: Grant Miguel M.D. Accoun t #: [id number] Status : DEP ER Primar y [...] tent with inject ion sites. Bladde r: Evans disten ded, to the level of the [...] ogical ly enlarg ed lymph nodes. IMPRES ISAEBLLA:: Evans disten ded urinar y bladde r. No focal bladde r mass or calcif icatio n. Slight ly enlarg ed prosta te with radiot herapy seeds in place. RADIAT ION DOSE DELIVE RED: Total DLP DATA REPOSI TORY: All CT scans at this facili ty are submit nadia to the [facility] Radiol ogy Data Regist ry [...] at the addres s above. Thank- you. [email or web address] [address] [place], [address] 01/02/2024 14:07:38 11/21/19 24 04/27/2019 imagi ng/di agnos tic [...] Organization Details Recorded Time Bipolar II disorder 23651156 Active 200209/20/19 18 - Comments only - [...] He will follow up with his mental [facility] provider before making any other changes in his medicati on. Problem Code: F31.81; Problem Code Type: ICD-10; MD Joe YOON Dr, [facility] [address] , [facility] 4 13:24:43 Psoriasi s 4784466 Active 2001 Problem Code: L40.9; Problem Code Type: ICD-10; MD Joe YOON Dr, [facility] [address] , [facility] 3 23:01:32 Hyperlip idemia 35378935 Active 2002 Problem Code: E78.5; Problem Code Type: ICD-10; MD Joe YOON Dr, [facility] [address] , [facility] 4 13:25:01 Hypothyr oidism 86016640 Active 2011 Problem Code: E03.9; Problem Code Type: ICD-10; MD Joe YOON Dr, [facility] [address] , [facility] 4 13:24:57 Hemorrha ge of rectum and anus 502408974 Completed 201506/20/2015 Problem Code: K62.5; Problem Code Type: ICD-10; Not Available [facility] 3 04:02:01 Malignan t tumor of prostate 949258747 Active 201608/26/19 18 - Comments only - Evita Vinson MD - He follows with urology and has been stable. 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 21642397081 103 Active 2019 Problem Code: G24.01; Problem Code Type: ICD-10; MD Joe YOON Dr, [address] 3 23:01:29 Prediabe viktoria 537165967 Active 2020 Problem Code: R73.03; Problem Code Type: ICD-10; MD Joe YOON Dr, [address] 4 13:24:34 Screenin g for malignan t neoplasm of colon Completed 202002/18/2021 Problem Code: Z12.11; Problem Code Type: ICD-10; Not Available [facility] 3 04:02:01 Insomnia 505530878 Active 2021 Problem Code: G47.00; Problem Code Type: ICD-10; JOHNNIE WHITEHEAD MA null, [facility] 3 09:57:48 Adult health examinat ion Active 2021 Problem Code: Z00.00; Problem Code Type: ICD-10; DEWAYNE JOHNSON MD [address], [place], [address] , [facility]. 4 13:24:20 Pain of toe of right foot 49380907757 9101 Completed 202107/17/2021 Problem Code: M79.674; Problem Code Type: ICD-10; Not Available [facility] 3 04:02:02 Closed fracture of distal end of radius 25548137 Completed 202104/27/2022 Problem Code: S52.572A ; Problem Code Type: ICD-10; Not Available [facility] 3 04:02:02 Pre-surg arnie evaluati on Completed 202207/02/2022 Problem Code: Z01.818; Problem Code Type: ICD-10; Not Available [facility] 3 04:02:02 Bipolar disorder 61677590 Completed 200212/01/2022 Problem Code: 296.80; Problem Code Type: ICD-9; Not Available [facility] 3 04:02:11 Therapeu tic drug monitori ng assay 70516466 Completed 201505/29/2021 Problem Code: Z51.81; Problem Code Type: ICD-10; Not Available [facility] 3 04:02:11 Pain of left wrist 87449941966 9102 Completed 202102/15/2022 Problem Code: M25.532; Problem Code Type: ICD-10; Not Available [facility] 3 04:02:11 Pain of left elbow joint 74945730374 910765 Completed 201905/27/2020 Problem Code: M25.522; Problem Code Type: ICD-10; Not Available [facility] 3 04:02:12 Christo hematuri a 676184916 Completed 201605/13/2016 Problem Code: R31.0; Problem Code Type: ICD-10; Not Available [facility] 3 04:02:13 Prostate nodule 61309529864 9109 Completed 201612/01/2022 Problem Code: N40.2; Problem Code Type: ICD-10; Not Available [facility] 3 04:02:13 Lacerati on of lip 157420343 Completed 202012/02/2020 Problem Code: S01.511A ; Problem Code Type: ICD-10; Not Available [facility] 3 04:02:14 Bleeding from nose 572344848 Completed 201802/05/2020 Problem Code: R04.0; Problem Code Type: ICD-10; Not Available [facility] 3 04:02:14 Contusio n of head 105463924 Completed 202012/02/2020 Problem Code: S00.83xA ; Problem Code Type: ICD-10; Not Available [facility] 3 04:02:14 Lesion of oral mucosa 84117130867 80484 Completed 201912/02/2020 Problem Code: K13.79; Problem Code Type: ICD-10; Not Available [facility] 3 04:02:14 Subungua l hematoma of foot 408597403 Completed 202205/11/[address], [facility] [address] , [facility] 4 13:24:53 Ingrowin g toenail 869693632 Completed 202305/11/2023 right MD Joe YOON Dr [facility] [address] , [facility] 4 13:25:10 Epidermo id cyst of skin 152873239 Completed 202305/15/[address] [facility] [address] , [facility] 4 19:01:09 Allergic rhinitis 47053310 Active [address], [place], [address] , [facility] 4 13:24:22 Tension- type headache 693122083 Active [address], [place] [address] , [facility] 4 21:05:07 Disorder of vision 62959675 Completed 202305/15/[address], [place] [address] , [facility] 4 19:01:05 Dental abscess 713828813 Active [address], [place] [address] , [facility] 4 13:17:37 Blood in urine 49371918 Active [address], [place] [address] , [facility] 4 14:03:17 Unsteady when walking 05695293 Active [address], [place] [address] , [facility] 4 15:05:09 Constipa tion 30767705 Active 2023 Mona oneil, [facility] 4 09:28:01 Retentio n of urine 743613966 Active 2023 Mona oneil, [facility] 4 10:45:13 Catheter ization of urinary bladder by indwelli ng suprapub ic catheter Active [address], [facility] [address] , [facility] 4 20:37:38 Problem Notes None recorded. Procedures Surgical History Date Name Laterality Status Provider Name and Address Organization Details Recorded Time 11/16/20 23 transurethral biopsy of prostate completed PABLO HITCHCOCK, VANNA [place] - [facility]. 02/01/2023 08:36:09 Imaging Results Imaging Date Name Status LastModified by Organization Details LastModified Time 04/01/2023 electrocardiogram completed [email or web address] Northea [address] [place], [address] 04/04/2023 17:10:23 11/19/2023 vrad report completed [address] [place], [address] 11/29/2023 07:52:53 11/19/2023 CT, abdomen + pelvis, w/ contrast completed [email or web address] [address] [place], [address] 01/02/2024 14:07:38 04/27/2019 imaging/diagnostic result completed Information not available [...] 1 tablet by mouth daily 06/14 completed [facility] Not Available Not Available Not Available nystatin [...] 1 tab by mouth daily. 08/03 completed [facility] Not Available Not Available Not Available metronida [...] at HS as needed 11/15 completed [facility] Not Available Not Available Not Available olanzapin e 2.5 mg tablet Take 1 tab by mouth daily. for total 12.5 mg 08/03 completed [facility] Not Available Not Available Not Available lamotrigi [...] by mouth daily at bedtime 2017 active [facility] Not Available Not Available Not Avai lable [...] e 50 mcg/actua tion nasal spray,mayra pension [place] 1 spray twice a day by intranas [...] capsule by mouth once a day active [facility] human services Not Available Not Available [...] at bedtime as needed 02/01 completed [place]ian [place] Not Available Not Available Not Available [...] Updated DateTime 4 160.66 cm 32.9 kg/m2 21137.7 7 g 97.6 [degF] 98 % 98 % 78 /min 126 mm[Hg] 84 mm[Hg] JOHNNIE WHITEHEAD MA [facility] 4 11:22:22 Date Recorded Body height Body mass index (BMI) Body weight Body temperature Oxygen saturation Oxygen saturation in Arterial blood by Pulse oximetry Heart rate Systolic blood pressure Diastolic blood pressure Provider Name and Address Organization Details Last Updated DateTime 4 160.66 cm 32.9 kg/m2 14655.7 7 g 97.3 [degF] 98 % 98 % 78 /min 130 mm[Hg] 78 mm[Hg] JOHNNIE WHITEHEAD MA [facility], [facility]. 4 14:18:32 Date Recorded Body height Body mass index (BMI) Body weight Body temperature Respiratory rate Oxygen saturation Oxygen saturation in Arterial blood by Pulse oximetry Heart rate Systolic blood pressure Diastolic blood pressure Provider Name and Address Organization Details Last Updated DateTime 4 160.66 cm 32.9 kg/m2 85897.7 7 g 99.9 [degF] 17 /min 94 % 94 % 102 /min 138 mm[Hg] 75 mm[Hg] Janae Serrano RN [facility] 4 11:47:14 Date Recorded Body height Body mass index (BMI) Body weight Body temperature Oxygen saturation Oxygen saturation in Arterial blood by Pulse oximetry Heart rate Systolic blood pressure Diastolic blood pressure Provider Name and Address Organization Details Last Updated DateTime 4 160.66 cm 31.5 kg/m2 36898.0 3 g 97.2 [degF] 97 % 97 % 78 /min 120 mm[Hg] 80 mm[Hg] JOHNNIE WHITEHEAD MA [facility] 4 11:08:14 Date Recorded Body height Body mass index (BMI) Body weight Body temperature Oxygen saturation Oxygen saturation in Arterial blood by Pulse oximetry Heart rate Systolic blood pressure Diastolic blood pressure Provider Name and Address Organization Details Last Updated DateTime 4 160.66 cm 31.5 kg/m2 21481.0 3 g 97.8 [degF] 97 % 97 % 74 /min 124 mm[Hg] 78 mm[Hg] JOHNNIE WHITEHEAD MA [facility] 4 14:29:20 Social History Question Answer Notes LastModified by Organizat ion Details LastModified Time Tobacco Smoking Status Former Smoker couple years in college JOHNNIE WHITEHEAD MA [facility], [facility], [facility] 02/17/2023 13:45:19 Do You Have An [...] Or The Highest Degree You Have Received? [id number] Information not available 02/17/2023 How Many Times [...] Do You Have A Medical Power Of Executive Asst? No Paperwork Given Information not available 02/17/2023 [...] preservative free, adsorbed 07/26/2017 completed Not Available [facility] 01/14/2023 04:07:01 Tdap 01/25/2007 completed Not Available [facility] 04:07:03 zoster live 09/21/2011 completed Not Available [facility] 01/14/2023 04:07:03 Pneumococcal conjugate PCV 13 06/19/2015 completed Not Available [facility] 01/14/2023 04:07:04 Influenza, high-dose, trivalent, PF 12/08/2017 completed Not Available [facility] 01/14/2023 04:07:04 Influenza, split virus, trivalent, preservative 02/11/2016 completed Not Available [facility] 01/14/2023 04:07:05 Influenza, split virus, quadrivalent, preservative 11/26/2016 completed Not Available [facility] 01/14/2023 04:07:05 Influenza, high-dose, quadrivalent, PF 12/02/2020 completed Not Available [facility] 01/14/2023 04:07:06 Influenza, high-dose, quadrivalent, PF 12/04/2019 completed Not Available [facility] 01/14/2023 04:07:06 Influenza, high-dose, quadrivalent, PF 12/14/2021 completed Not Available [facility] 01/14/2023 04:07:06 COVID-19, mRNA, LNP-S, PF, 100 mcg/0.5mL dose or 50 mcg/0.25mL dose 05/30/2020 completed Not Available [facility] 01/14/2023 04:07:07 COVID-19, mRNA, LNP-S, PF, 100 mcg/0.5mL dose or 50 mcg/0.25mL dose 01/07/2021 completed Not Available [facility] 01/14/2023 04:07:07 SARS-COV-2 (COVID-19) vaccine, UNSPECIFIED 05/02/2020 completed Not Available [facility] 01/14/2023 04:07:07 SARS-COV-2 (COVID-19) vaccine, UNSPECIFIED 06/23/2021 completed Not Available [facility] 01/14/2023 04:07:08 SARS-COV-2 (COVID-19) vaccine, UNSPECIFIED 12/14/2021 completed Not Available [facility] 01/14/2023 04:07:08 Pneumococcal conjugate PCV20, polysaccharide [id number] conjugate, adjuvant, PF 07/27/2022 completed Not Available [facility] 01/14/2023 04:07:08 COVID-19, mRNA, LNP-S, bivalent, PF, 30 mcg/0.3 mL dose 07/27/2022 completed Not Available [facility] 01/15/20 04:07:08 pneumococcal polysaccharide PPV23 05/24/2014 completed Not Available [facility] 2022 04:07:09 influenza, unspecified formulation 01/22/2019 completed Not Available [facility] 01/14/2023 04:07:11 SARS-COV-2 (COVID-19) vaccine, UNSPECIFIED 01/03/2023 completed [facility] 02/17/2023 13:55:11 influenza, unspecified formulation 11/18/2022 completed [facility] 02/17/2023 13:55:44 Influenza, high-dose, quadrivalent, PF 11/18/2022 completed Not Available [facility] 03/18/2023 05:33:19 Past Encounters Encounter ID Performer Location Encounter Start Date Encounter Closed Date Diagnosis/Indication Diagnosis SNOMED-CT Code Diagnosis ICD10 Code [id number] DEWAYNE JOHNSON MD [address] [address] 02/17/2023 13:26:31 02/17/2023 15:28:29 Adult health examination 630512901 Z00.00 Bipolar II disorder 8322 5003 F31.81 Malignant tumor of prostate 637910289 C61 Hypothyroidism 91423981 E03.9 Hyperlipidemia 92380962 E78.5 [id number] SORAYA HOLDER PA-C [address] [address] 03/04/2023 10:45:49 03/04/2023 14:27:34 Subungual hematoma of foot 481513259 S90.221A [id number] DEWAYNE JOHNSON MD [address] [place] [address] 03/24/2023 08:05:25 03/24/2023 09:01:46 Epidermoid cyst of skin 548305810 L72.0 [id number] DEWAYNE JOHNSON MD [address] [address] 05/05/2023 10:51:25 05/05/2023 12:35:01 Body mass index 30+ - obesity 931642865 Z68.32 Allergic rhinitis 051596 04 J30.9 [id number] DEWAYNE JOHNSON MD [address] [address] 05/11/2023 13:53:04 05/11/2023 14:45:32 Tension-type headache 879658376 G44.209 Disorder of vision 62491 002 H53.9 [id number] SORAYA HOLDER PA-C [address],[facility] [address] [place] [address] 07/02/2023 11:03:20 07/02/2023 13:31:12 Blood in urine 37109802 R31.9 Dental abscess 700103701 K04.7 Unsteady when walking 22 016710 R26.89 [id number] DEWAYNE JOHNSON MD [address] [address] 08/03/2023 10:49:43 08/03/2023 11:38:20 Tension-type headache 559073284 G44.553 [id number] DEWAYNE JOHNSON MD [address] [address] 12/21/2023 14:17:17 12/21/2023 15:20:30 Malignant tumor of prostate 256140909 C61 Prediabetes 374655617 R7 3.03 Health Concerns Section Related Observation LastModified by Organization Detai ls LastModified Time None Recorded Concern Status LastModified by Organization Details LastModified Time None Recorded Advance Directives Directive N: Payers Encounter Date Sequence Insurance Name Policy Number Policy Walker Covered Member ID Walker Member ID Guarantor Name 05/05/2023 2 [employer] (MEDICARE SUPPLEMENT) Nain Mckeon [id number] Nani Mckeon 05/05/2023 1 [place] [employer] Nain Mckeon [id number] Nain Mckeon 05/11/2023 2 [employer] (MEDICARE SUPPLEMENT) Nain Mckeon [id number] Nain Mckeon 05/11/2023 1 [place] [employer] [employer] Nain Mckeon [id number] Nain Mckeon 07/02/2023 2 [employer] (MEDICARE SUPPLEMENT) Nain Mckeon [id number] Nain Mckeon 07/02/2023 1 [place] [employer] Nain Mckeon [id number] Nain Mckeon 08/03/2023 2 [employer] (MEDICARE SUPPLEMENT) Nain Mckeon [id number] Nain Mckeon 08/03/2023 1 [place] [employer] Nain Mckeon [id number] Nain Mckeon 12/21/2023 2 [employer] (MEDICARE SUPPLEMENT) Nain Mckeon [id number] Nain Mckeon 12/21/2023 1 [place] [facility] Nain Mckeon [id number] Nain Mckeon Notes Date Note Type Note Provider Name and Address Organization Details Recorded Time 05/05/2023 text/html Patient was seen concerned about his breathing. He [...] have a history of some seasonal allergies. DEWAYNE JOHNSON MD [address], [place], [address], [facility]. 05/09/2023 00:07:32 05/11/2023 text/html Patient is complaining what sound like tension headaches. Some tension in his neck and occipital area. Worse last few days. Does admit this is worse when he turns head left and right. There is nothing anterior. He has had no recent trauma or illness. States vision is a little cloudy, has not seen an operating room tech for some time. No fevers chills or illness. The Flonase we suggested last visit he states is helping his sinus congestion. No peripheral neurologic symptoms such as numbness weakness or tingling DEWAYNE JOHNSON MD [address], [place], [address], [place] [facility]. 05/15/2023 19:02:03 07/02/2023 text/html Nain is a 72-year-old male who presents [...] infection. He recently started high-dose radiation in [place] for prostate cancer. First treatment was on [...] clots. SORAYA HOLDER PA-C [address], [place], [address], [facility]. 07/02/2023 15:07:48 08/03/2023 text/html Nain here with continued issues with what [...] his present symptoms. MD [address], [place], [address], [facility]. 08/07/2023 12:50:52 12/21/2023 text/html The patient presents with a history of [...] diabetes. DEWAYNE JOHNSON MD [address], [place], [address], [facility]. 12/24/2023 20:38:34
--- OUTSIDE RECORDS SUMMARY | 2024-01-19 16:12 | XMS_ITS | Encounter Summary ---
Author Organization [facility] Address [facility] [place] [address] Care Team Providers Care Template Layout Worker Name Role Phone Celio Sanders MD Primary Care Provider [phone] Encounter Details Date Type Department Care Team (Latest Contact Info) Description 04/26/2023 Travel Social History Tobacco Use Types Packs/Day Years Used Date Smoking Tobacco: Never Smokeless Tobacco: Never Alcohol Use Standard Drinks/Week Comments Not Currently 0 (1 standard drink = 0.6 oz pur e alcohol) beer and wine twice a month [facility] Utilities Answer Date Recorded In [...] EST Office Visit Dermatology at [facility] [address] [place] [address] Prisca Hughes MD [facility] DR PHOEBE [place]BAR[place] [address] 02/07/2024 1:30 PM EST Office Visit Hematology/Oncology at [address] [address] Harjinder Snyder MD [facility] DR HEMATOLOGY [place] [address] Bisi Cheng APRN [facility] [place] [address] documented as of this encounter Visit Diagnoses Not on filedocumented in this encounter Care Teams Template Layout Worker Relationship Specialty Start Date End Date Celio Sanders MD [address] [place] [address] PCP - General Internal Medicine 05/19/16 documented as of this encounter
--- OUTSIDE RECORDS SUMMARY | 2024-01-19 16:12 | XMS_ITS | Encounter Summary ---
Author Organization [facility] Address [facility] [place] [address] Care Team Providers Care Rod Welder Name Role Phone Celio Sanders MD Primary Care Provider [phone] Encounter Details Date Type Department Care Team (Latest Contact Info) Description 03/01/2023 Travel Social History Tobacco Use Types Packs/Day Years Used Date Smoking Tobacco: Never Smokeless Tobacco: Never Alcohol Use Standard Drinks/Week Comments Not Currently 0 (1 standard drink = 0.6 oz pur e alcohol) beer and wine twice a month [place] Utilities Answer Date Recorded In the past [...] [facility] [address] [place] [address] Prisca Hughes MD [facility] [address] [place] [address] 02/07/2024 1:30 PM EST Office Visit Hematology/Oncology at [address] [address] Harjinder Snyder MD [facility] [place] [address] Bisi Cheng APRN [facility] [place] [place] [address] documented as of this encounter Visit Diagnoses Not on filedocumented in this encounter Care Teams Rod Welder Relationship Specialty Start Date End Date Celio Sanders MD [address] [place] [address] PCP - General Internal Medicine 05/19/16 documented as of this encounter
--- OUTSIDE RECORDS SUMMARY | 2024-01-19 16:12 | XMS_ITS | Encounter Summary ---
Author Organization [facility] Address [facility] [place] [address] Care Team Providers Care Rn Neonatal Icu Name Role Phone Celio Sanders MD Primary Care Provider [phone] Encounter Details Date Type Department Care Team (Late st Contact Info) Description 03/02/2023 Orders Only Hematology/Oncology at [address] [address] Bisi Cheng APRN [facility] [place] [address] Prostate cancer metastatic to intrapelvic lymph node; Malignant neoplasm of prostate Social History Tobacco Use Types Packs/Day Years Used Date Smoking Tobacco: Never Smokeless Tobacco: Never Alcohol Use Standard Drinks/Week Comments Not Currently 0 (1 standard drink = 0.6 oz pur e alcohol) beer and wine twice a month [facility] Utilities Answer Date Recorded In the past 12 months has [email or web address], gas, oil, or water [employer] threatened to shut off services in your [...] [facility] [address] [place] [address] Prisca Hughes MD [facility] DR [place] [address] 02/07/2024 1:30 PM EST Office Visit Hematology/Oncology at [address] [phone] Harjinder Snyder MD [facility] [place] [address] Bisi Cheng APRN [facility] [place] [place] [address] documented as of this encounter Visit Diagnoses Diagnosis Prostate cancer metastatic to intrapelvic lymph node Malignant neoplasm of prostate documented in this encounter Care Teams Rn Neonatal Icu Relationship Specialty Start Date End Date Celio Sanders MD [address] [place] [address] PCP - General Internal Medicine 05/19/16 documented as of this encounter
--- OUTSIDE RECORDS SUMMARY | 2024-01-19 16:12 | XMS_ITS | Encounter Summary ---
Author Organization [facility] Address [facility] [place] [address] Care Team Providers Care Line Installer Repairer Name Role Phone Celio Sanders MD Primary Care Provider [phone] Encounter Details Date Type Department Care Team (Late st Contact Info) Description 10/24/2023 1:30 PM EDT Office Visit Hematology/Oncology at [address] [address] Bisi Cheng APRN [facility] [place] [address] Recurrent prostate cancer; BRCA gene mutation positive Social History Tobacco Use Types Packs/Day Years Used Date Smoking Tobacco: Never Smokeless Tobacco: Never Alcohol Use Standard Drinks/Week Comments Not Currently 0 (1 standard drink = 0.6 oz pur e alcohol) beer and wine twice a month [facility] Utilities Answer Date Recorded In the past 12 months has [employer], gas, oil, or water [employer] threatened to shut off services in your [...] biopsy revealed prostatic adenocarcinoma, Grade Group 5 ([place] score 5+5=10) Genetic testing Mar 2018: pathogenic variant in BRCA2 (c.1929del, p.[id number] fs15). VUS in AXIN2 and CTNNA1 -01/06/23 PSA 1.4 HPI: Nain Mckeon is a 73 y.o. M here for follow up for hx of prostate cancer. Interval history 10/25/23: Nain is in clinic for follow-up appointment on prostate cancer. He received brachytherapy under the care of Dr. Hassan at [facility] on June 15 and June 22. Developed [...] injuries Hyperlipidemia Prostate cancer MEDS: Medications 10/24/23 1258 Medication Sig Taking? 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 PS: ECOG = 0 General : alert and oriented x 3 HEENT: nonicteric Deferred for discussion Pathology: 01/20/2023 prostatic adenocarcinoma, Grade Group 5 ([place] score 5+5=10) LABS: 10/12/23 BUN 24, creatinine [...] radiation oncologist Dr. Victorino Hassan at the [facility] Given his high Andre score question [...] observed, with no substantial between-group differences in [id number]-ot-lkst measures. CONCLUSIONS In patients with prostate cancer with high-risk biochemical recurrence, enzalutamide plus leuprolide was superior to leuprolide alone with respect to metastasis-free survival; enzalutamide monotherapy was also superior to leuprolide alone. The safety profile of enzalutamide was consistent with that shown in previous clinical studies, with no apparent detrimental effect on quality of life. (Fundedby [employer]; [employer] ClinicalTrials.gov number, [id number]. opens in new tab.) On January 20 [...] follow-up with radiation oncologist Dr. Hassan at [facility] I can see him back in 3 months with blood work 07/19/23 Nain had salvage HDR focally under care of Dr. Shaffer At [facility] on June 15 and June 22. The [...] 2:00 PM EST Office Visit Dermatology at [address] [place] [address] Prisca Hughes MD [facility] [place] [address] 02/07/2024 1:30 PM EST Office Visit Hematology/Oncology at [address] [address] Harjinder Snyder MD [facility] [place] [address] Bisi Cheng APRN [facility] [place] [address] documented as of this encounter Visit Diagnoses Diagnosis Recurrent prostate cancer BRCA gene mutation positive documented in this encounter Care Teams Line Installer Repairer Relationship Specialty Start Date End Date Celio Sanders MD [address] [place] [address] PCP - General Internal Medicine 05/19/16 documented as of this encounter
--- OUTSIDE RECORDS SUMMARY | 2024-01-19 16:12 | XMS_ITS | Encounter Summary ---
Author Organization [facility] Address [facility] [place] [address] Care Team Providers Care Product Mgr Name Role Phone Celio Sanders MD Primary Care Provider [phone] Reason for Visit * Reason Onset Date Comments Other 04/14/2023 Encounter Details Date Type Department Care Team (Late st Contact Info) Description 04/14/2023 Telephone Hematology/Oncology at [address] [phone] Caio Venegas RN Other Social History Tobacco Use Types Packs/Day Years Used Date Smoking Tobacco: Never Smokeless Tobacco: Never Alcohol Use Standard Drinks/Week Comments Not Currently 0 (1 standard drink = 0.6 oz pur e alcohol) beer and wine twice a month [facility] Utilities Answer Date Recorded In the past 12 months has [employer], gas, oil, or water company threatened [...] No 02/15/2023 Housing Stability Vital Sign Answer Rgeg e Recorded In the last 12 months, [...] to report he was recently seen at [facility] ED after collapsing at local grocery. [...] Office Visit Dermatology at [facility] [address] [place] [address] Prisca Hughes MD [facility] DR [place] [address] 02/07/2024 1:30 PM EST Office Visit Hematology/Oncology at [address] [phone] Harjinder Snyder MD [facility] [place] [address] iBsi Cheng APRN [facility] [place] [address] documented as of this encounter Visit Diagnoses Not on filedocumented in this encounter Care Teams Product Mgr Relationship Specialty Start Date End Date Celio Sanders MD [address] [place] [address] PCP - General Internal Medicine 05/19/16 documented as of this encounter
--- OUTSIDE RECORDS SUMMARY | 2024-01-19 16:12 | XMS_ITS | Encounter Summary ---
Author Organization [facility] Address [facility] [place] [address] Care Team Providers Care Television Operator Name Role Phone Celio Sanders MD Primary Care Provider [phone] Encounter Details Date Type Department Care Team (Latest Contact Info) Description 06/21/2023 Travel Social History Tobacco Use Types Packs/Day Years Used Date Smoking Tobacco: Never Smokeless Tobacco: Never Alcohol Use Standard Drinks/Week Comments Not Currently 0 (1 standard drink = 0.6 oz pur e alcohol) beer and wine twice a month [facility] Utilities Answer Date Recorded In the [...] at [facility] [address] [place] [address] Prisca Hughes MD [facility] DR [place] [address] 02/07/2024 1:30 PM EST Office Visit Hematology/Oncology at [address] [phone] Harjinder Snyder MD [facility] DR [place] [address] Bisi Cheng APRN [facility] [place] [address] documented as of this encounter Visit Diagnoses Not on filedocumented in this encounter Care Teams Television Operator Relationship Specialty Start Date End Date Celio Sanders MD [address] [place] [address] PCP - General Internal Medicine 05/19/16 documented as of this encounter
--- OUTSIDE RECORDS SUMMARY | 2024-01-19 16:12 | XMS_ITS | Encounter Summary ---
Author Organization [facility] Address [facility] [place] [address] Care Team Providers Care Copy Messenger Name Role Phone Celio Sanders MD Primary Care Provider [phone] Encounter Details Date Type Department Care Team (Late st Contact Info) Description 07/20/2023 2:30 PM EDT TH Visit (TeleHealth) Radiation Oncology at [address] [phone] Ronnie Vazquez MD [address] [place] [address] DR RADIATION ONCOLOGY [place], [place] [id number] Prostate cancer metastatic to intrapelvic lymph node; Recurrent prostate cancer Social History Tobacco Use Types Packs/Day Years Used Date Smoking Tobacco: Never Smokeless Tobacco: Never Alcohol Use Standard Drinks/Week Comments Not Currently 0 (1 standard drink = 0.6 oz pur e alcohol) beer and wine twice a month [facility] Utilities Answer Date Recorded In the past 12 months has [employer], [employer], oil, or water [employer] [place] threatened to shut off services in your [...] Oncology Phone Note Ronnie Vazquez MD, MS [facility] PATIENT NAME: Nain Mckeon DATE [...] PM EST Office Visit Dermatology at [address] [address] Prisca Hughes MD [facility] DR [place] [address] 02/07/2024 1:30 PM EST Office Visit Hematology/Oncology at [address] [address] Harjinder Snyder MD [facility] DR [place] [address] Bisi Cheng APRN [facility] [place] [address] documented as of this encounter Visit Diagnoses Diagnosis Prostate cancer metastatic to intrapelvic lymph node Recurrent prostate cancer documented in this encounter Care Teams Copy Messenger Relationship Specialty Start Date End Date Celio Sanders MD [address] [place] [address] PCP - General Internal Medicine 05/19/16 documented as of this encounter
--- OUTSIDE RECORDS SUMMARY | 2024-01-19 16:12 | XMS_ITS | Encounter Summary ---
Author Organization [facility] Address [facility] [place] [address] Care Team Providers Care Trucking Contractor Name Role Phone Celio Sanders MD Primary Care Provider [phone] Reason for Visit * Reason Onset Date Comments Headache 05/11/2023 Encounter Details Date Type Department Care Team (Late st Contact Info) Description 05/11/2023 Telephone Hematology/Oncology at [address] [address] Yenny Pavon RN Headache Social [...] 2:00 PM EST Office Visit [facility] at [facility] [address] [place] [address] Prisca Hughes MD [facility] DR PHOEBE [place] [address] 02/07/2024 1:30 PM EST Office Visit Hematology/Oncology at [address] [phone] Harjinder Snyder MD [facility] DR HEMATOLOGY [place] [address] Bisi Cheng APRN [facility] [place] [address] documented as of this encounter Visit Diagnoses Not on filedocumented in this encounter Care Teams Trucking Contractor Relationship Specialty Start Date End Date Celio Sanders MD [address] [place] [address] PCP - General Internal Medicine 05/19/16 documented as of this encounter
--- OUTSIDE RECORDS SUMMARY | 2024-01-19 16:12 | XMS_ITS | Encounter Summary ---
Author Organization [facility] Address [address] [place] [address] Care Team Providers Care Obstetrics Gynecology Physician Name Role Phone Unknown, Provider Primary Care Provider Gladysva ilable Encounter Details Date Type Department Care Team (Late st Contact Info) Description 04/27/2016 Results Only [facility] [phone] Elias Curran MD [address] [place] [address] [place] [address] Social History Tobacco Use Types [...] ? NAIN LIPSCOMB ? Accession #: ? [id number] ? : ? 1950 (Age: 65) ??M [...] remaining) pattern: Grade 3. ? - Total Helton score: 7. ? - Number of cores involved/total number of cores: 1 out of 1. ? - Percentage of tissue involved by tumor: 95%. - Perineural invasion: Present. B. PROSTATE, RIGHT BASE MEDIAL, NEEDLE CORE BIOPSY: - ??Adenocarcinoma of the prostate. See comment. ? - Primary (predominant) pattern: Grade 4. ? - Secondary (worst remaining) pattern: Grade 3. ? - Total Helton score: 7. ? - Number of cores involved/total number of cores: 1 out of 1. ? - Percentage of tissue involved by tumor: 95%. - Perineural invasion: Present. C. PROSTATE, RIGHT MID LATERAL, NEEDLE CORE BIOPSY: - ??Adenocarcinoma of the prostate. See comment. ? - Primary (predominant) pattern: Grade 4. ? - Secondary (worst remaining) pattern: Grade 4. ? - Total Andre score: 8. ? - Number of cores involved/total number of cores: 1 out of 1. ? - Percentage of tissue involved by tumor: 90%. D. PROSTATE, RIGHT MID MEDIAL, NEEDLE CORE BIOPSY: - ??Adenocarcinoma of the prostate. See comment. ? - Primary (predominant) pattern: Grade 4. ? - Secondary (worst remaining) pattern: Grade 4. ? - Total Helton score: 8. ? - Number of cores [...] and stroma with acute inflammation. Comment: ? Help Desk Consultant slides of this case were reviewed at [...] (ASCP) 04/28/2016 11:00 AM End of Report [facility] 04/27/2016 9:09 EST 04/28/2016 9:09 EST us Elias Curran MD PATHOLOGY ORDERABLES Yue reyes Result [facility] [address] [place] [address] documented in this encounter Visit Diagnoses Not on filedocumented in this encounter Care Teams Obstetrics Gynecology Physician Relationship Specialty Start Date End Date Unknown, Provider, PCP - General 04/28/16 04/29/16 documented as of this encounter
--- OUTSIDE RECORDS SUMMARY | 2024-01-19 16:12 | XMS_ITS | Encounter Summary ---
Author Organization [facility] Address [address] [place] [address] Care Team Providers Care Mba Intern Name Role Phone Celio Sanders MD Primary Care Provider [phone] Encounter Details Date Type Department Care Team (Late st Contact Info) Description 11/21/2019 Lab Requisition [facility] Pathology & Laboratory Medicine - [facility] [address] [place] [address] David Fairchild MD [address] [place], [place] [id number] Contact with and (suspected) exposure to other [...] 20:52 EDT David Fairchild MD MICROBIOLOGY - GENERAL ORDERABL ES Final Result Performing Organization Address [facility] Co de Phone Number [facility] [address] [place] [address] * COVID-19 TESTING (11/21/2019 14:30 EDT) COVID-19 rt-PCR Result Negative Negative 11/22/2019 1:14 EDT [facility] Comment: This test has [...] history, and epidemiological information. Performed on the Hemarinaher Fusion instrument Performing Lab Painter [facility] 11/22/2019 1:14 EDT [facility] Swab ENTIRE NASOPHARYNX / Unknown Swab / Unknown 11/21/2019 14:30 EDT 11/21/2019 20:52 EDT us David Fairchild MD MICROBIOLOGY - GENERAL ORDERABL ES Final Result Performing Organization Address City/[facility]/ZIP Co de Phone Number [facility] [address] [place] [address] documented in this encounter Visit Diagnoses Diagnosis Contact with and (suspected) exposure to other viral communicable diseases documented in this encounter Care Teams Mba Intern Relationship Specialty Start Date End Date Celio Sanders MD [address] [place], [place] [phone] PCP - General 04/30/16 documented as of this encounter
--- OUTSIDE RECORDS SUMMARY | 2024-01-19 16:12 | XMS_ITS | Encounter Summary ---
Author Organization [facility] Address [facility] [place] [address] Care Team Providers Care Riveter Automobile Brakes Name Role Phone Celio Sanders MD Primary Care Provider [phone] Encounter Details Date Type Department Care Team (Late st Contact Info) Description 04/26/2023 10:00 AM EST Office Visit Hematology/Oncology at [address] [address] Harjinder Ruffin MD [facility] [address] [place] [address] Bisi Cheng APRN [facility] [place] [address] Prostate cancer metastatic to intrapelvic lymph node (Primary Dx) Social History Tobacco Use Types Packs/Day Years Used Date Smoking Tobacco: Never Smokeless Tobacco: Never Alcohol Use Standard Drinks/Week Comments Not Currently 0 (1 standard drink = 0.6 oz pur e alcohol) beer and wine twice a month [facility] Utilities Answer Date Recorded In the past 12 months has [employer] electric, gas, oil, or water company threatened [...] from the original note were not included. [facility] Medical Oncology [place] [id number] ONCOLOGY F/u visit REFERRING: Dr TaylorDr Diane [...] biopsy revealed prostatic adenocarcinoma, Grade Group 5 (Verdigre score 5+5=10) Genetic testing Mar 2018: pathogenic variant in BRCA2 (c.1929del, p.[id number] fs15). 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 Victorino Hassan at the [facility] Given his high Andre score [...] observed, with no substantial between-group differences in isluyvn-zy-ecel measures. CONCLUSIONS In patients with prostate cancer with high-risk biochemical recurrence, enzalutamide plus leuprolide was superior to leuprolide alone with respect to metastasis-free survival; enzalutamide monotherapy was also superior to leuprolide alone. The safety profile of enzalutamide was consistent with that shown in previous clinical studies, with no apparent detrimental effect on quality of life. (Fundedby [employer]; [facility] ClinicalTrials.gov number, [id number]. opens in new tab.) On January 20 [...] follow-up with radiation oncologist [place]. Hassan [place] [facility] [place] can see him [...] 2:00 PM EST Office Visit Dermatology at [place] [address] [place] [address] Prisca Hughes MD [facility] [address] [place] [address] 02/07/2024 1:30 PM EST Office Visit Hematology/Oncology at [address] [address] Harjinder Ruffin MD [facility] [address] [place] [address] Bisi Cheng APRN [facility] [place] [address] Scheduled Orders Name Type Priority Associated Diagnoses [...] Primary documented in this encounter Care Teams [employer] Relationship Specialty Start Date End Date Celio Sanders MD [address] [place] [address] PCP - General Internal Medicine 05/19/16 documented as of this encounter
--- OUTSIDE RECORDS SUMMARY | 2024-01-19 16:12 | XMS_ITS | Encounter Summary ---
Author Organization [facility] Address [address] [place] [address] Care Team Providers Care Juvenile Counselor Name Role Phone Celio Sanders MD Primary Care Provider [phone] Encounter Details Date Type Department Care Team (Late st Contact Info) Description 01/31/2019 Lab Requisition [facility] Pathology & Laboratory Medicine - [facility] [address] [place] [address] Unknown, Provider, Social History Tobacco Use Types [...] 0.0 - 6.5 ng/mL 02/02/2019 8:39 EST [facility] Comment: NOTE: Serum PSA concentration should not be interpreted as absolute evidence for the presence or absence of malignant disease. Assayed on Siemens ADVIA Centaur XPT using chemiluminescent technology. ??Values obtained by using different assay methods cannot be used interchangeably. Blood VENOUS BLOOD / Unknown 01/31/2019 11:20 EST 01/31/2019 16:09 EST us Provider Unknown CHEMISTRY & BLOOD GAS ORDERA BLES Final Result [facility] [address] [place] [address] documented in this encounter Visit Diagnoses Not on filedocumented in this encounter Care Teams Juvenile Counselor Relationship Specialty Start Date End Date Celio Sanders MD [address] [place], [place] [phone] PCP - General 04/30/16 documented as of this encounter
--- OUTSIDE RECORDS SUMMARY | 2024-01-19 16:12 | XMS_ITS | Continuity of Care Document ---
Author Organization [facility] Address [address] [place] [address] Assessment No assessment recorded. Plan of Treatment [...] By Organization Details Last Modified Time 12/21/2023 [id number] Dear gf, Thank you for visiting our [...] Not available 12/22/2023 08:50:55 Reason for Referral None Reported. Results Created Date Observation Date Name Description Value Unit Range Abnormal Flag Note LastModifiedBy Organization Detail LastModifiedTime 11/21/19 24 11/19/2023 CT, abdom en + pelvi s, w/ contr ast Patien t Name: Nain Mckeon Unit #: [id number] Loc: ER Orderi ng Provid er: Grant Miguel M.D. Accoun t #: [id number] Status : DEP ER Primar y [...] tent with inject ion sites. Bladde r: Brock disten ded, to the level of the [...] ly enlarg ed lymph nodes. IMPRES ANGELINE:: Brock disten ded urinar y bladde r. No focal bladde r mass or calcif icatio n. Slight ly enlarg ed prosta te with radiot herapy seeds in place. RADIAT ION DOSE DELIVE RED: Total DLP DATA REPOSI TORY: All CT scans at this facili ty are submit nadia to the [facility] al Radiol ogy Data Regist ry [...] this report in error, please notify us [email or web address] valera at and return the origin al report to us at the addres s above. Thank- you. [email or web address] [facility] [address] [place], [address] 01/02/2024 14:07:38 11/21/19 24 04/27/2019 imagi ng/di [...] Organization Details Recorded Time Bipolar II disorder 41271015 Active 200209/20/19 18 - Comments only - [...] He will follow up with his mental [facility] provider before making any other changes in his medicati on. 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 35573988703 103 Active 2019 Problem Code: G24.01; Problem Code Type: ICD-10; MD Joe [address], [facility] [address] [place] [address] 3 23:01:29 Prediabe lucinda 192374016 Active 2020 Problem Code: R73.03; Problem Code Type: ICD-10; MD Joe [address], [facility] [address] [place] [address] 4 13:24:34 Screenin g for malignan t neoplasm of colon Completed 202002/18/2021 Problem Code: Z12.11; Problem Code Type: ICD-10; Not Available [facility] 3 04:02:01 Insomnia 364186936 Active 2021 Problem Code: G47.00; Problem Code Type: ICD-10; LAINE WELLER, [facility] 3 09:57:48 Adult health examinat ion Active 2021 Problem Code: Z00.00; Problem Code Type: ICD-10; DEWAYNE JOHNSON MD [address], [place], [address] , [facility] 4 13:24:20 Pain of toe of right foot 84107360125 9101 Completed 202107/17/2021 Problem Code: M79.674; Problem Code Type: ICD-10; Not Available [facility] 3 04:02:02 Closed fracture of distal end of radius 99871429 Completed 202104/27/2022 Problem Code: S52.572A ; Problem Code Type: ICD-10; Not Available [facility] 3 04:02:02 Pre-surg arnie evaluati on Completed 202207/02/2022 Problem Code: Z01.818; Problem Code Type: ICD-10; Not Available [facility] 3 04:02:02 Bipolar disorder 66126076 Completed 200212/01/2022 Problem Code: 296.80; Problem Code Type: ICD-9; Not Available [facility] 3 04:02:11 Therapeu tic drug monitori ng assay 34693444 Completed 201505/29/2021 Problem Code: Z51.81; Problem Code Type: ICD-10; Not Available [facility] 3 04:02:11 Pain of left wrist 73652350002 9102 Completed 202102/15/2022 Problem Code: M25.532; Problem Code Type: ICD-10; Not Available [facility] 3 04:02:11 Pain of left elbow joint 14723155937 920658 Completed 201905/27/2020 Problem Code: M25.522; Problem Code Type: ICD-10; Not Available [facility] 3 04:02:12 Christo hematuri a 919512211 Completed 201605/13/2016 Problem Code: R31.0; Problem Code Type: ICD-10; Not Available [facility] 3 04:02:13 Prostate nodule 39604217524 9109 Completed 201612/01/2022 Problem Code: N40.2; Problem Code Type: ICD-10; Not Available [facility] 3 04:02:13 Lacerati on of lip 063130224 Completed 202012/02/2020 Problem Code: S01.511A ; Problem Code Type: ICD-10; Not Available [facility] 3 04:02:14 Bleeding from nose 375347173 Completed 201802/05/2020 Problem Code: R04.0; Problem Code Type: ICD-10; Not Available [facility] 3 04:02:14 Contusio n of head 225126521 Completed 202012/02/2020 Problem Code: S00.83xA ; Problem Code Type: ICD-10; Not Available [facility] 3 04:02:14 Lesion of oral mucosa 29258865128 63081 Completed 201912/02/2020 Problem Code: K13.79; Problem Code Type: ICD-10; Not Available [facility] 3 04:02:14 Subungua l hematoma of foot 583462625 Completed 202205/11/[address], [place], [address] , [facility]. 4 13:24:53 Ingrowin g toenail 358843121 Completed 202305/11/[address], [place], [address] , [facility]. 4 13:25:10 Epidermo id cyst of skin 770593249 Completed 202305/15/[address], [facility] [address] , [facility] 4 19:01:09 Allergic rhinitis 58288674 Active [address], [facility] [address] , [facility] 4 13:24:22 Tension- type headache 269059835 Active [address], [facility] [address] , [facility] 21:05:07 Disorder of vision 91188659 Completed 202305/15/[address], [facility] [address] , [facility] 4 19:01:05 Dental abscess 029966420 Active [address], [facility] [address] , [facility] 13:17:37 Blood in urine 29031748 Active [address], [facility] [address] , [facility] 14:03:17 Unsteady when walking 80398748 Active [address], [facility] [address] , [facility] 15:05:09 Constipa tion 62949078 Active 2023 Mona oneil, [facility] 09:28:01 Retentio n of urine 356789669 Active 2023 Mona Francisco null, [facility] 4 10:45:13 Catheter ization of urinary bladder by indwelli ng suprapub ic catheter Active 2023 DEWAYNE JOHNSON MD [address], [place], [address] , [facility] 4 20:37:38 Problem Notes None recorded. Procedures Surgical History Date Name Laterality Status Provider Name and Address Organization Details Recorded Time 01/21/20 transurethral biopsy of prostate completed PABLO HITCHCOCK RN [facility] 02/01/2023 08:36:09 Imaging Results None recorded. [...] 0z of liquid. Take as needed. 12/03 [facility] Not Available Not Available Not Available methocarb sugey 500 mg tablet Take 1 tab by mouth three times daily 04/23 completed Not Available Not Available Not Available lamotrigi ne 150 mg tablet TAKE ONE TABLET BY MOUTH TWICE A DAY active Not Available Not Available No t Available bicalutam desi 50 mg tablet Take 1 tablet by mouth daily 06/14 completed [facility] Not Available Not Available Not Available nystatin [...] 1 tab by mouth daily. 08/03 completed [facility] Not Available Not Available Not Available metronida [...] mouth at HS as needed 11/15 completed [facility] Not Available Not Available Not Available olanzapin e 2.5 mg tablet Take 1 tab by mouth daily. for total 12.5 mg 08/03 completed [facility] Not Available Not Available Not Available lamotrigi [...] nightly as needed for anxiety 12/03 completed [facility] Not Available Not Available Not Available benztropi [...] by mouth daily at bedtime 2017 active [facility] Not Available Not Available Not Avai lable [...] e 50 mcg/actua tion nasal spray,mayra pension [place] 1 spray twice a day by intranas [...] mouth once a day active [facility] services Not Available Not Available [...] Updated DateTime 4 160.66 cm 31.5 kg/m2 42670.0 3 g 97.8 [degF] 97 % 97 % 74 /min 124 mm[Hg] 78 mm[Hg] JOHNNIE WHITEHEAD MA [facility] 4 14:29:20 Social History Question Answer Notes LastModified by Organizat ion Details LastModified Time Tobacco Smoking Status Former Smoker couple years in college LAINE WELLER, [facility] 02/17/2023 13:45:19 Do You Have An [...] Or The Highest Degree You Have Received? [id number] Information not available 02/17/2023 How Many Times [...] Do You Have A Medical Power Of Associate Artistic Director? No Paperwork Given Information not available 02/17/2023 [...] preservative free, adsorbed 07/26/2017 completed Not Available [facility] 01/14/2023 04:07:01 Tdap 01/25/2007 completed Not Available [facility] 04:07:03 zoster live 09/21/2011 completed Not Available [facility] 01/14/2023 04:07:03 Pneumococcal conjugate PCV 13 06/19/2015 completed Not Available [facility] 01/14/2023 04:07:04 Influenza, high-dose, trivalent, PF 12/08/2017 completed Not Available [facility] 01/14/2023 04:07:04 Influenza, split virus, trivalent, preservative 02/11/2016 completed Not Available [facility] 01/14/2023 04:07:05 Influenza, split virus, quadrivalent, preservative 11/26/2016 completed Not Available [facility] 01/14/2023 04:07:05 Influenza, high-dose, quadrivalent, PF 12/02/2020 completed Not Available [facility] 01/14/2023 04:07:06 Influenza, high-dose, quadrivalent, PF 12/04/2019 completed Not Available [facility] 01/14/2023 04:07:06 Influenza, high-dose, quadrivalent, PF 12/14/2021 completed Not Available [facility] 01/14/2023 04:07:06 COVID-19, mRNA, LNP-S, PF, 100 mcg/0.5mL dose or 50 mcg/0.25mL dose 05/30/2020 completed [facility] Available [facility] 01/14/2023 04:07:07 COVID-19, mRNA, LNP-S, PF, 100 mcg/0.5mL dose or 50 mcg/0.25mL dose 01/07/2021 completed Not Available [facility] 01/14/2023 04:07:07 SARS-COV-2 (COVID-19) vaccine, UNSPECIFIED 05/02/2020 completed Not Available [facility] 01/14/2023 04:07:07 SARS-COV-2 (COVID-19) vaccine, UNSPECIFIED 06/23/2021 completed Not Available [facility] 01/14/2023 04:07:08 SARS-COV-2 (COVID-19) vaccine, UNSPECIFIED 12/14/2021 completed Not Available [facility] 01/14/2023 04:07:08 Pneumococcal conjugate PCV20, polysaccharide [id number] conjugate, adjuvant, PF 07/27/2022 completed Not Available [facility] 01/14/2023 04:07:08 COVID-19, mRNA, LNP-S, bivalent, PF, 30 mcg/0.3 mL dose 07/27/2022 completed Not Available [facility] 01/15/20 04:07:08 pneumococcal polysaccharide PPV23 05/24/2014 completed Not Available [facility] 2022 04:07:09 influenza, unspecified formulation 01/22/2019 completed Not Available [facility] 01/14/2023 04:07:11 SARS-COV-2 (COVID-19) vaccine, UNSPECIFIED 01/03/2023 completed LAINE WELLER [facility] 02/17/2023 13:55:11 influenza, unspecified formulation 11/18/2022 completed LAINE WELLER [facility] 02/17/2023 13:55:44 Influenza, high-dose, quadrivalent, PF 11/18/2022 completed Not Available [facility] 03/18/2023 05:33:19 Past Encounters Encounter ID Performer Location Encounter Start Date Encounter Closed Date Diagnosis/Indication Diagnosis SNOMED-CT Code Diagnosis ICD10 Code [id number] DEWAYNE JOHNSON MD [address] [address] 12/21/2023 14:17:17 12/21/2023 15:20:30 Malignant tumor of prostate 040444498 C61 Prediabetes 983788909 R7 3.03 Health Concerns Section Related Observation LastModified by Organization Detai ls LastModified Time None Recorded Concern Status LastModified by Organization Details LastModified Time None Recorded Payers Encounter Date Sequence Insurance Name Policy Number Policy Walker Covered Member ID Walker Member ID Guarantor Name 12/21/2023 2 [employer] (MEDICARE SUPPLEMENT) Nain Paulsonaleida [id number] Nain Chet Mckeon 12/21/2023 1 [place]: [employer] Nain Rosenberg Linda [id number] Nain Chet Mckeon Notes Date Note Type Note Provider Name and Address Organization Details Recorded Time 12/21/2023 text/html The patient presents with a [...] diabetes. DEWAYNE JOHNSON MD [address], [place], [address], [facility]. 12/24/2023 20:38:34
--- OUTSIDE RECORDS SUMMARY | 2024-01-19 16:12 | XMS_ITS | Encounter Summary ---
Author Organization [facility] Address [address] [place] [address] Care Team Providers Care Work Measurement Engineer Name Role Phone Celio Sanders MD Primary Care Provider [phone] Encounter Details Date Type Department Care Team (Late st Contact Info) Description 07/31/2020 Lab Requisition [facility] - [address] [phone] Outr Resulting Lab, Provider Social History Tobacco [...] 2.8 - 5.3 pg/mL 07/31/2020 16:53 EDT [facility] Blood VENOUS BLOOD / Unknown 07/31/2020 8:19 EDT 07/31/2020 16:19 EDT us Provider Outr Resulting Lab CHEMISTRY & BLOOD GA S ORDERABLES Final Result [facility] [address] [place] [address] documented in this encounter Visit Diagnoses Not on filedocumented in this encounter Care Teams Work Measurement Engineer Relationship Specialty Start Date End Date Celio Sanders MD [address] [place], [place] [id number] PCP - General 04/30/16 documented as of this encounter
--- OUTSIDE RECORDS SUMMARY | 2024-01-19 16:12 | XMS_ITS | Encounter Summary ---
[place] [address] Care Team Providers Care Woodworking Machine Offbearer Name Role Phone Celio Sanders MD Primary Care Provider [phone] Reason for Visit * Reason Comments Chemotherapy Injections * Treatment/Therapy Plan Authorization (Routine) - Authorized Specialty Diagnoses / Procedures Referred By Contac t Referred To Contact Hematology and Oncology Diagnoses Recurrent prostate cancer Procedures TC LEUPROLIDE ACETATE 7.5MG, FOR DEPOST SUSPENSION (LUPRON DEPOT) Ronnie Vazquez MD [address] [place] [address] [place] [address] [facility] Infusion [address] [place] [address] Referral ID Status Reason Start Date Expiration Date V isits Requested Visits Authorized [id number] Authorized 02/17/2023 02/17/2024 1 103 Encounter Details Date Type Department Care Team (Late st Contact Info) Description 06/21/2023 11:00 AM EDT Infusion Hematology Oncology at [address] [phone] Recurrent prostate cancer Social History Tobacco Use Types Packs/Day Years Used Date Smoking Tobacco: Never Smokeless Tobacco: Never Alcohol Use Standard Drinks/Week Comments Not Currently 0 (1 standard drink = 0.6 oz pur e alcohol) beer and wine twice a month [facility] Utilities Answer Date Recorded In the past 12 months has [employer], gas, oil, or water company threatened to [...] PM EST Office Visit Dermatology at [address] [place] [address] Prisca Hughes MD [facility] DR PH[place] [address] 02/07/2024 1:30 PM EST Office Visit Hematology/Oncology at [address] [phone] Harjinder Snyder MD [facility] DR HEMATOLOGY [place] [address] Bisi Cheng APRN [facility] [place] [address] documented as of this encounter Visit Diagnoses [...] Gluteal documented in this encounter Care Teams Woodworking Machine Offbearer Relationship Specialty Start Date End Date Celio Sanders MD [address] [place] [address] PCP - General Internal Medicine 05/19/16 documented as of this encounter
--- OUTSIDE RECORDS SUMMARY | 2024-01-19 16:12 | XMS_ITS | Encounter Summary ---
[place] [address] Care Team Providers Care Data Center Project Manager Name Role Phone Celio Sanders MD Primary Care Provider [phone] Reason for Visit * Reason Comments Injections Lupron * Treatment/Therapy Plan Authorization (Routine) - Authorized Specialty Diagnoses / Procedures Referred By Contac t Referred To Contact Hematology and Oncology Diagnoses Recurrent prostate cancer Procedures TC LEUPROLIDE ACETATE 7.5MG, FOR DEPOST SUSPENSION (LUPRON DEPOT) Ronnie Vazquez MD [address] [place] [address] [place] [address] [facility] [address] [place] [address] Referral ID Status Reason Start Date Expiration Date V isits Requested Visits Authorized [id number] Authorized 02/17/2023 02/17/2024 1 103 Encounter Details Date Type Department Care Team (Late st Contact Info) Description 04/26/2023 10:30 AM EST Infusion Hematology Oncology at [address] [phone] Recurrent prostate cancer Social History Tobacco Use Types Packs/Day Years Used Date Smoking Tobacco: Never Smokeless Tobacco: Never Alcohol Use Standard Drinks/Week Comments Not Currently 0 (1 standard drink = 0.6 oz pur e alcohol) beer and wine twice a month [facility] Utilities Answer Date Recorded In the past 12 months has [employer], gas, oil, or water company threatened to [...] [facility] [address] [place] [address] Prisca Hughes MD [facility] [place] [address] 02/07/2024 1:30 PM EST Office Visit Hematology/Oncology at [address] [phone] Harjinder Snyder MD [facility] DR [place] [address] Bisi Cheng APRN [facility] [place] [address] documented as of this encounter Visit Diagnoses [...] Gluteal documented in this encounter Care Teams Data Center Project Manager Relationship Specialty Start Date End Date Celio Sanders MD [address] [place] [address] PCP - General Internal Medicine 05/19/16 documented as of this encounter
--- OUTSIDE RECORDS SUMMARY | 2024-01-19 16:12 | XMS_ITS | Encounter Summary ---
[place] [address] Care Team Providers Care Roving Teller Name Role Phone Celio Sanders MD Primary Care Provider [phone] Reason for Visit * Reason Comments Injections * Treatment/Therapy Plan Authorization (Routine) - Authorized Specialty Diagnoses / Procedures Referred By Contac t Referred To Contact Hematology and Oncology Diagnoses Recurrent prostate cancer Procedures TC LEUPROLIDE ACETATE 7.5MG, FOR DEPOST SUSPENSION (LUPRON DEPOT) Ronnie Vazquez MD [address] [place] [address] [place] [address] [address] Referral ID Status Reason Start Date Expiration Date V isits Requested Visits Authorized [id number] Authorized 02/17/2023 02/17/2024 1 103 Encounter Details Date Type Department Care Team (Late st Contact Info) Description 03/29/2023 10:30 AM EST Infusion Hematology Oncology at [address] [phone] Recurrent prostate cancer Social History Tobacco Use Types Packs/Day Years Used Date Smoking Tobacco: Never Smokeless Tobacco: Never Alcohol Use Standard Drinks/Week Comments Not Currently 0 (1 standard drink = 0.6 oz pur e alcohol) beer and wine twice a month [facility] Utilities Answer Date Recorded In the past 12 months has [employer] gas, oil, or water company threatened to [...] 2:00 PM EST Office Visit Dermatology at [address] [place] [address] Prisca Hughes MD [facility] DR [place] [address] 02/07/2024 1:30 PM EST Office Visit Hematology/Oncology at [address] [phone] Harjinder Snyder MD [facility] DR [place] [address] Bisi Cheng APRN [facility] [place] [address] documented as of this encounter Visit Diagnoses [...] Gluteal documented in this encounter Care Teams Roving Teller Relationship Specialty Start Date End Date Celio Sanders MD [address] [place] [address] PCP - General Internal Medicine 05/19/16 documented as of this encounter
--- OUTSIDE RECORDS SUMMARY | 2024-01-19 16:12 | XMS_ITS | Encounter Summary ---
Author Organization [facility] Address [facility] [place] [address] Care Team Providers Care Licensed Insurance Agent Name Role Phone Celio Sanders MD Primary Care Provider [phone] Encounter Details Date Type Department Care Team (Latest Contact Info) Description 10/24/2023 Travel Social History Tobacco Use Types Packs/Day Years Used Date Smoking Tobacco: Never Smokeless Tobacco: Never Alcohol Use Standard Drinks/Week Comments Not Currently 0 (1 standard drink = 0.6 oz pur e alcohol) beer and wine twice a month [facility] Utilities Answer Date Recorded In the [...] Dermatology at [facility] [address] [place] [address] Prisca Hughes MD [facility] DR PHOEBE [place] [address] 02/07/2024 1:30 PM EST Office Visit Hematology/Oncology at [address] [phone] Harjinder Snyder MD [facility] DR HEMATOLOGY [place] [address] Bisi Cheng APRN [facility] [place] [address] documented as of this encounter Visit Diagnoses Not on filedocumented in this encounter Care Teams Licensed Insurance Agent Relationship Specialty Start Date End Date Celio Sanders MD [address] [place] [address] PCP - General Internal Medicine 05/19/16 documented as of this encounter
--- OUTSIDE RECORDS SUMMARY | 2024-01-19 16:12 | XMS_ITS | Encounter Summary ---
Author Organization [facility] Address [facility] [place] [address] Care Team Providers Care Planer Operator Name Role Phone Celio Sanders MD Primary Care Provider [phone] Encounter Details Date Type Department Care Team (Latest Contact Info) Description 05/24/2023 Travel Social History Tobacco Use Types Packs/Day Years Used Date Smoking Tobacco: Never Smokeless Tobacco: Never Alcohol Use Standard Drinks/Week Comments Not Currently 0 (1 standard drink = 0.6 oz pur e alcohol) beer and wine twice a month [facility] Utilities Answer Date Recorded In [...] Visit Dermatology at [facility] [address] [place] [address] Prisca Hughes MD [facility] DR PHOEBE IBARRA[place] [address] 02/07/2024 1:30 PM EST Office Visit Hematology/Oncology at [address] [phone] Harjinder Snyder MD [facility] DR HEMATOLOGY [place] [address] Bisi Cheng APRN [facility] [place] [address] documented as of this encounter Visit Diagnoses Not on filedocumented in this encounter Care Teams Planer Operator Relationship Specialty Start Date End Date Celio Sanders MD [address] [place] [address] PCP - General Internal Medicine 05/19/16 documented as of this encounter
--- OUTSIDE RECORDS SUMMARY | 2024-01-19 16:13 | XMS_ITS | Encounter Summary ---
Author Organization [facility] Address [facility] [place] [address] Care Team Providers Care Preassembler Printed Circuit Board Name Role Phone Celio Sanders MD Primary Care Provider Reason for Referral * Consultation (Routine) - Closed Specialty Diagnoses / Procedures Referred By Contac t Referred To Contact Hematology and Oncology Diagnoses Prostate cancer metastatic to intrapelvic lymph node Ronnie Vazquez MD [address] [place] [address] [place] [address] Harjinder Snyder MD [facility] DR [place] [address] Referral ID Status Reason Start Date Expiration Date V isits Requested Visits Authorized [id number] Closed Consult, Test & Treat 02/01/2023 02/01/2024 1 1 * Consultation (Routine) - Closed Specialty Diagnoses / Procedures Referred By Contac t Referred To Contact Radiation Oncology Diagnoses Prostate cancer metastatic to intrapelvic lymph node Ronnie Vazquez MD [address] [place] [address] [place] [address] Victorino Hassan MD [address] [place] [address] Referral ID Status Reason Start Date Expiration Date V isits Requested Visits Authorized [id number] Closed Assume Subset of Care 02/01/2023 07/31/2023 1 1 Encounter Details Date Type Department Care Team (Late Contact Info) Description 02/01/2023 Orders Only Radiation Oncology at [address] [phone] Ronnie Vazquez MD [address] [place] [address] [place] [address] Prostate cancer metastatic to intrapelvic lymph node; [...] PM EST Office Visit Dermatology at [address] [phone] Prisca Hughes MD [facility] DR [place] [address] 02/07/2024 1:30 PM EST Office Visit Hematology/Oncology at [address] [phone] Harjinder Snyder MD [facility] DR [place] [address] Bisi Cheng APRN [facility] [place] [address] Scheduled Referrals Name Type Priority Associated Diagnoses [...] cancer documented in this encounter Care Teams Preassembler Printed Circuit Board Relationship Specialty Start Date End Date Celio Sanders MD [address] [place] [address] PCP - General Internal Medicine 05/19/16 documented as of this encounter
--- OUTSIDE RECORDS SUMMARY | 2024-01-19 16:13 | XMS_ITS | Encounter Summary ---
Author Organization [facility] Address [facility] [place] [address] Care Team Providers Care Steel Fixer Name Role Phone Celio Sanders MD Primary Care Provider [phone] Encounter Details Date Type Department Care Team [...] 2:00 PM EST Office Visit Dermatology at [address] [phone] [facility] DR PHOEBE IBARRA[place] [address] 02/07/2024 1:30 PM EST Office Visit Hematology/Oncology at [address] [phone] [facility] HEMATOLOGY [place] [address] [facility] [place] [address] documented as of this encounter Visit Diagnoses Not on filedocumented in this encounter Care Teams Steel Fixer Relationship Specialty Start Date End Date Celio Sanders MD [address] [place] [address] PCP - General Internal Medicine 05/19/16 documented as of this encounter
--- OUTSIDE RECORDS SUMMARY | 2024-01-19 16:13 | XMS_ITS | Encounter Summary ---
Author Organization [facility] Address [facility] [place] [address] Care Team Providers Care Coat Fitter Name Role Phone Celio Sanders MD Primary Care Provider [phone] Encounter Details Date Type Department Care Team (Late st Contact Info) Description 01/25/2023 Telephone [place] [phone] Nick Kelly MD [facility] [place] [address] Social History Tobacco Use Types Packs/Day Years [...] 01/25/2023 4:41 PM EST Copied from CRM #[id number]. Topic: Specialty Dept CRMs - Generic Call >> Jan 25, 2023 2:56 PM Dominique H wrote: Specialist: Robin Patient returning call Relationship [...] 2:00 PM EST Office Visit Dermatology at [address] [phone] Prisca Hughes MD [facility] DR [place] [address] 02/07/2024 1:30 PM EST Office Visit Hematology/Oncology at [address] [phone] Harjinder Snyder MD [facility] DR [place] [address] Bisi Cheng APRN [facility] [place] [address] documented as of this encounter Visit Diagnoses Not on filedocumented in this encounter Care Teams Coat Fitter Relationship Specialty Start Date End Date Celio Sanders MD [address] [place] [address] PCP - General Internal Medicine 05/19/16 documented as of this encounter
--- OUTSIDE RECORDS SUMMARY | 2024-01-19 16:13 | XMS_ITS | Encounter Summary ---
Author Organization [facility] Address [facility] [place] [address] Care Team Providers Care Fibreglass Gun Hand Name Role Phone Celio Sanders MD Primary Care Provider [phone] Encounter Details Date Type Department Care Team (Late Contact Info) Description 02/04/2023 Orders Only Hematology/Oncology at [address] [phone] Bisi Cheng APRN [facility] [place] [address] Prostate cancer metastatic to intrapelvic lymph node [...] [facility] [address] [place] [address] Prisca Hughes MD [facility] DR [place] [address] 02/07/2024 1:30 PM EST Office Visit Hematology/Oncology at [address] [phone] Harjinder Snyder MD [facility] [place] [address] Bisi Cheng APRN [facility] [place] [address] documented as of this encounter Visit Diagnoses Diagnosis Prostate cancer metastatic to intrapelvic lymph node documented in this encounter Care Teams Fibreglass Gun Hand Relationship Specialty Start Date End Date Celio Sanders MD [address] [place] [address] PCP - General Internal Medicine 05/19/16 documented as of this encounter
--- OUTSIDE RECORDS SUMMARY | 2024-01-19 16:13 | XMS_ITS | Encounter Summary ---
Author Organization [facility] Address [facility] [place] [address] Care Team Providers Care Customer Supply Chain Analyst Name Role Phone Celio Sanders MD Primary Care Provider [phone] Encounter Details Date Type Department Care Team (Late st Contact Info) Description 02/17/2023 Orders Only Radiation Oncology at [address] [phone] Ronnie Vazquez MD [address] [place] [address] DR RADIATION ONCOLOGY [place], [place] [id number] Social History Tobacco Use Types Packs/Day Years Used Date Smoking Tobacco: Never Smokeless Tobacco: Never Alcohol Use Standard Drinks/Week Comments Not Currently 0 (1 standard drink = 0.6 oz pur e alcohol) beer and wine twice a month [facility] Utilities Answer Date Recorded In the past 12 months has [employer], gas, oil, or water [employer] threatened to shut off services in your [...] at [facility] [address] [place] [address] Prisca Hughes MD [facility] DR [place] [address] 02/07/2024 1:30 PM EST Office Visit Hematology/Oncology at [address] [phone] Harjinder Snyder MD [facility] [place] [address] Bisi Cheng APRN [facility] [place] [place] [address] documented as of this encounter Visit Diagnoses Not on filedocumented in this encounter Care Teams Customer Supply Chain Analyst Relationship Specialty Start Date End Date Celio Sanders MD [address] [place] [address] PCP - General Internal Medicine 05/19/16 documented as of this encounter
--- OUTSIDE RECORDS SUMMARY | 2024-01-19 16:13 | XMS_ITS | Encounter Summary ---
Author Organization [facility] Address [facility] [place] [address] Care Team Providers Care Streetcar Dispatcher Name Role Phone Celio Sanders MD Primary Care Provider [phone] Reason for Visit * Consultation (Routine) - Closed Specialty Diagnoses / Procedures Referred By Tess de la rosa Referred To Contact Dermatology Diagnoses BRCA gene mutation positive Prostate cancer metastatic to intrapelvic lymph node Dayana Tompkins, RN [address] [place] [address] [place] [address] [facility] Dermatology [address] [place] [address] Referral ID Status Reason Start Date Expiration Date V isits Requested Visits Authorized [id number] Closed Consult, Test & Treat 07/20/2021 07/20/2022 1 1 Encounter Details Date Type Department Care Team (Late st Contact Info) Description 10/06/2021 3:00 PM EDT Office Visit Dermatology at [facility] [address] [place] [address] Ernst Rinaldi MD [facility] DR PHOEBE [place] [address] Inflamed seborrheic keratosis; SK (seborrheic [...] 1 year for FSE []Note routed to corporation secretary [x]Recall placed in scheduling system []Appointment scheduled at checkout Scribe attestation: Yordy Wesley MA has performed the documentation for this encounter in the presence of and acting as a scribe for Ernst Rinaldi MD. I performed the above scribed service and agree with the accuracy of the documentation in this encounter. Reviewed and signed by: Ernst Rinaldi MD Dermatology [facility] Patient seen and evaluated with staff coil shaper: Kayla Ely MD Dermatology [facility] * Kayla Ely MD - 10/06/2021 3:00 PM [...] PM EST Office Visit Dermatology at [address] [place] [address] Prisca Hughes MD [facility] DR PHOEBE [place] [address] 02/07/2024 1:30 PM EST Office Visit Hematology/Oncology at [address] [phone] Harjinder Snyder MD [facility] HEMATOLOGY [place] [address] Bisi Cheng APRN [facility] [place] [address] Scheduled Referrals Name Type Priority Associated Diagnoses [...] unspecified documented in this encounter Care Teams Streetcar Dispatcher Relationship Specialty Start Date End Date Celio Sanders MD [address] [place] [address] PCP - General Internal Medicine 05/19/16 documented as of this encounter
--- OUTSIDE RECORDS SUMMARY | 2024-01-19 16:13 | XMS_ITS | Encounter Summary ---
Author Organization [facility] Address [facility] [place] [address] Care Team Providers Care Retail Shift Leader Name Role Phone Celio Sanders MD Primary Care Provider [phone] Encounter Details Date Type Department Care Team (Late st Contact Info) Description 07/17/2021 3:30 PM EDT Office Visit Hematology/Oncology at [address] [phone] Dayana Tompkins RN BRCA gene [...] this encounter Progress Notes * Dayana Tompkins, EDITOR AT LARGE - 07/17/2021 3:30 PM EDT Subjective: Patient [...] a pathogenic variant (mutation) in BRCA2 specifically c.1929del(p.[id number]). 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 At the time of the appointment,??Nain?Jessywas provided with a printed copy of his??test result and an informational packet addressing a positive test result. ?? The following??47??genes were evaluated for sequence changes and exonic deletions/duplications: APC, RUMA, AXIN2, BARD1, BMPR1A, BRCA1, BRCA2, BRIP1, CDH1, CDK4, CDKN2A (p14ARF), CDKN2A (l13WEL9f), CHEK2, CTNNA1, DICER1, EPCAM (EPCAM: Deletion/duplication testing [...] (VUS) in the AXIN2 and CTNNA1??genes, specifically c.1531A>T(p.Hcy507Myn) and c.515A>T (p.Vge679Igs), were??detected. ? Interpretation: The most significant consequences [...] with them. ?? Nain's sons live in [place] and [place]. ??They can go to [...] and mailing address stay updated in the [facility] system, in order for us to reach [...] possibility in the future,??Dr. Ara Mary, a production zone leader at [facility] in [place], is willing to discuss these screening options with Nain.??Nain??can schedule an appointment with her by reaching her audio visual secretary at [phone]. ?? Prostate Cancer Screening for Nain's sons ? Prostate cancer screening starting at age 40.?If either of them is found to not have the BRCA2 mutation then they can consider screening beginning at age 50 which is the recommendation for menin the general population ?? Skin cancer screening ?? Periodic skin exams ?? Colon cancer screening ?? Periodic colonoscopy screening as recommended by??Nain's production zone leader. ?. ??SUMMARY ASSESSMENT/PLAN 07/24 He was diagnosed with prostate cancer in 2016 after presenting with hematuria and found to have an abnormal prostate gland on exam. TRUS prostate bx showed adenocarcinoma in 5/12 cores, all on the right. [place] score was 8 in two of the [...] PSA. ? Soc Hx: , lives in [place], [place]. He goes to [place] from December to June. 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 Fam Hx: Father with prostate [...] as summarized above.) Nain returns to the [facility] oncology clinic in [facility] today [...] swimming 5-6 times a week at the [facility] [employer] He also walks his dogs daily. His [...] Nain is in agreement to see a partner for baseline exam as his BRCA2 positive [...] clinic in [facility] today for followup surveillance visit [...] 2:00 PM EST Office Visit Dermatology at [address] [place] [address] Prisca Hughes MD [facility] DR [place] [address] 02/07/2024 1:30 PM EST Office Visit Hematology/Oncology at [address] [phone] Harjinder Snyder MD [facility] [place] [address] Bisi Cheng APRN [facility] [place] [address] documented as of this encounter Visit Diagnoses Diagnosis BRCA gene mutation positive Prostate cancer metastatic to intrapelvic lymph node documented in this encounter Care Teams Retail Shift Leader Relationship Specialty Start Date End Date Celio Sanders MD [address] [place], [place] [id number] PCP - General Internal Medicine 05/19/16 documented as of this encounter
--- OUTSIDE RECORDS SUMMARY | 2024-01-19 16:13 | XMS_ITS | Encounter Summary ---
[place] [address] Care Team Providers Care Die Cut Operator Name Role Phone Celio Sanders MD Primary Care Provider [phone] Reason for Referral * Consultation (Routine) - Closed Specialty Diagnoses / Procedures Referred By Tess t Referred To Contact Hematology and Oncology Diagnoses Malignant neoplasm of prostate Rama Ramos APRN [facility] [place] [address] [facility] Hem Onc [address] [place] [address] Referral ID Status Reason Start Date Expiration Date V isits Requested Visits Authorized [id number] Closed Assume Subset of Care 10/12/2022 10/12/2023 1 1 * Diagnostic Test (Routine) - Closed Specialty Diagnoses / Procedures Referred By Contac t Referred To Contact Radiology Diagnoses Malignant neoplasm of prostate Procedures NM PET CT PSMA Prostate (Illuccix) Rama Ramos COMPUTERIZED MACHINE FABRIC CUTTER [facility] [place] [address] [facility] [place] [address] Referral ID Status Reason Start Date Expiration Date V isits Requested Visits Authorized [id number] Closed Specialty Service Requested 10/12/2022 04/14/2024 1 2 Encounter Details Date Type Department Care Team (Late st Contact Info) Description 10/12/2022 9:30 AM EDT Office Visit Radiation Oncology at [address] [phone] Rama Ramos APRN [facility] [place] [address] Malignant neoplasm of prostate (Primary [...] 3 years ADT w/ final dose 05/2019 [facility] [place] [address] Phone: RADIATION ONCOLOGY FOLLOW UP NOTE Patient Nain Mckeon 1950 PCP: Celio Sanders MD Urologist: Radiation oncologist: Dr. Ronnie Vazquez Chief Complaint: follow up/labs for prostate cancer Time since completed RT:10/27/16 ADT:3 years of Lupron or eligard with last dose 05/04/2019 Tried and stopped abiraterone /pred d/t not patrick pred with bipolar d.o. This was started in [place] and ended when he returned to [place]. Current treatment:Surveillance HPI: Per Dr Ronnie Vazquez [...] 5/12 cores (all on right side), T2b, Merrill 8 Darlyn-neural invasion present PSA - 47.5 [...] LN no longer seen). Pt was in [place] for a period of 5 months and he received a 22.5mg leuprolide there on 05/15/2018. The facility [facility] and Provider Sp Coreas MD. This is in scanned documents. Interim HPI: No further medical issues in the interval. He has been drinking more and hydrating because of summer and exercising. Because of drinking more may be [facility] more [facility] 2-3x. 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 [...] of manic sx. He had this in [place] during a visitthere but only on x 1 month and could not tolerate so stopped as soon as return to [place]. Monitoring of PSA continues. No urinary sx [...] lupron and eligard in past (eligard in [place] when he was there for a period of 5months) x 3 years. Abiraterone and pred started in [place] he states and tried but did not tolerate the prednisone as he experienced manic sx so needed to stop this combo when he returned to [place]. Regino not see dates on this. I do not think he has tried enzalutamide. He was aware at one point that a possible return to lupron might be needed but his Dr in [place] stated in note reluctance to dothis based on snf CV risk factors. There is also an [...] the radiation therapy/prostate cancer Rama Ramos MSN, COMPUTERIZED MACHINE FABRIC CUTTER, DRIVE TESTER-C Nurse Practitioner Radiation Oncology documented in this encounter Plan of Treatment Upcoming Encounters Date Type Department Care Team (Late st Contact Info) Description 01/24/2024 2:00 PM EST Office Visit Dermatology at [address] [phone] Prisca Hughes MD [facility] DR PHOEBE [place] [address] 02/07/2024 1:30 PM EST Office Visit Hematology/Oncology at [address] [phone] Harjinder Snyder MD [facility] DR HEMATOLOGY [place] [address] Bisi Cheng APRN [facility] [place] [address] Scheduled Referrals Name Type Priority Associated Diagnoses [...] Thank you for referring this patient to [facility] PET [facility]. I [...] who have questions please contact the health point of care technician that requested your imaging first. ? Narrative [...] Thank you for referring this patient to [facility] PET [facility]. I [...] patients who have questions please contactthe health point of care technician that requested your imaging first. Rama Ramos COMPUTERIZED MACHINE FABRIC CUTTER IMG PET ORDERABLES documented in this encounter Visit Diagnoses Diagnosis Malignant neoplasm of prostate- Primary Malignant neoplasm of prostate documented in this encounter Care Teams Die Cut Operator Relationship Specialty Start Date End Date Celio Sanders MD [address] [place] [address] PCP - General Internal Medicine 05/19/16 documented as of this encounter
--- OUTSIDE RECORDS SUMMARY | 2024-01-19 16:13 | XMS_ITS | Encounter Summary ---
Author Organization [facility] Address [facility] [place] [address] Care Team Providers Care Fountain Manager Name Role Phone Celio Sanders MD Primary Care Provider [phone] Encounter Details Date Type Department Care Team [...] PM EST Office Visit Dermatology at [address] [phone] Prisca Hughes MD [facility] DR PHOE[place] [address] 02/07/2024 1:30 PM EST Office Visit Hematology/Oncology at [address] [phone] Harjinder Snyder MD [facility] HEMATOLOGY [place] [address] Bisi Cheng APRN [facility] [place] [address] documented as of this encounter Visit Diagnoses Not on filedocumented in this encounter Care Teams Fountain Manager Relationship Specialty Start Date End Date Celio Sanders MD [address] [place] [address] PCP - General Internal Medicine 05/19/16 documented as of this encounter
--- OUTSIDE RECORDS SUMMARY | 2024-01-19 16:13 | XMS_ITS | Encounter Summary ---
Author Organization [facility] Address [facility] [place] [address] Care Team Providers Care Residential Interior Designer Name Role Phone Celio Sanders MD Primary Care Provider [phone] Encounter Details Date Type Department Care Team [...] PM EST Office Visit Dermatology at [address] [phone] Prisca Hughes MD [facility] DR [place] [address] 02/07/2024 1:30 PM EST Office Visit Hematology/Oncology at [address] [phone] Harjinder Snyder MD [facility] [place] [address] Bisi Cheng APRN [facility] [place] [address] documented as of this encounter Visit Diagnoses Not on filedocumented in this encounter Care Teams Residential Interior Designer Relationship Specialty Start Date End Date Celio Sanders MD [address] [place] [address] PCP - General Internal Medicine 05/19/16 documented as of this encounter
--- OUTSIDE RECORDS SUMMARY | 2024-01-19 16:13 | XMS_ITS | Encounter Summary ---
Author Organization [facility] Address [facility] [place] [address] Care Team Providers Care Risk Control Officer Name Role Phone Celio Sanders MD Primary Care Provider [phone] Reason for Visit * Reason Comments Establish Care * Consultation (Routine) - Closed Specialty Diagnoses / Procedures Referred By Contac t Referred To Contact Hematology and Oncology Diagnoses Malignant neoplasm of prostate Rama Ramos APRN [facility] [place] [address] [facility] [address] [place] [address] Referral ID Status Reason Start Date Expiration Date V isits Requested Visits Authorized [id number] Closed Assume Subset of Care 10/12/2022 10/12/2023 1 1 Encounter Details Date Type Department Care Team (Late st Contact Info) Description 11/22/2022 3:00 PM EDT Office Visit Hematology [place] [address] Veronika Tobar MD [facility] DR [place] [address] Malignant neoplasm of prostate Social History Tobacco [...] from the original note were not included. [facility] [place] [phone] ONCOLOGY NEW PATIENT VISIT REFERRING: Dr Vazquez, [...] Mar 2018: pathogenic variant in BRCA2 (c.1929del, p.[id number] fs15). VUS in AXIN2 and CTNNA1 HPI: [...] DIAGNOSTIC performed by Nicky Bray MD at [facility] ENDOSCOPY PROSTATE BIOPSY MEDS: Medications 11/22/22 0549 Medication Sig Taking? 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 [employer] Never [...] criteria for PSA recurrence based on the Windsor criteria, I agree with restaging exams and [...] 2:00 PM EST Office Visit Dermatology at [address] [phone] Prisca Hughes MD [facility] DR [place] [address] 02/07/2024 1:30 PM EST Office Visit Hematology/Oncology at [address] [phone] Harjinder Snyder MD [facility] DR [place] [address] Bisi Cheng APRN [facility] [place] [address] Scheduled Referrals Name Type Priority Associated Diagnoses Order Schedule Referral to Hematology and Oncology Outpatient Referral Routine Malignant neoplasm of prostate Ordered: 10/12/2022 documented as of this encounter Visit Diagnoses Diagnosis Malignant neoplasm of prostate documented in this encounter Care Teams Risk Control Officer Relationship Specialty Start Date End Date Celio Sanders MD [address] [place] [address] PCP - General Internal Medicine 05/19/16 documented as of this encounter
--- OUTSIDE RECORDS SUMMARY | 2024-01-19 16:13 | XMS_ITS | Encounter Summary ---
Author Organization [facility] Address [facility] [place] [address] Care Team Providers Care Business Process Architect Name Role Phone Celio Sanders MD Primary Care Provider [phone] Encounter Details Date Type Department Care Team [...] PM EST Office Visit Dermatology at [address] [phone] Prisca Hughes MD [facility] DR [place] [address] 02/07/2024 1:30 PM EST Office Visit Hematology/Oncology at [address] [phone] Harjinder Snyder MD [facility] [place] [address] Bisi Cheng APRN [facility] [place] [address] documented as of this encounter Visit Diagnoses Not on filedocumented in this encounter Care Teams Business Process Architect Relationship Specialty Start Date End Date Celio Sanders MD [address] [place] [address] PCP - General Internal Medicine 05/19/16 documented as of this encounter
--- OUTSIDE RECORDS SUMMARY | 2024-01-19 16:13 | XMS_ITS | Encounter Summary ---
[place] [address] Care Team Providers Care Writing Center Director Name Role Phone Celio Sanders MD Primary Care Provider [phone] Reason for Referral * Diagnostic Test (Routine) - Closed Specialty Diagnoses / Procedures Referred By Contac rj Referred To Contact Radiology Diagnoses Malignant neoplasm of prostate Procedures MRI Pelvis wwo (Prostate) Diane Leavitt MD [facility] DR RADIATION ONCOLOGY CENTER [place], [place] [id number] [place] [phone] Referral ID Status Reason Start Date Expiration Date V isits Requested Visits Authorized [id number] Closed Specialty Service Requested 11/18/2022 05/16/2024 1 1 Encounter Details Date Type Department Care Team (Late st Contact Info) Description 11/18/2022 2:30 PM EDT Office Visit Radiation Oncology at [address] [phone] Ronnie Vazquez MD [address] [place] [address] DR RADIATION ONCOLOGY [place], [place] [id number] Malignant neoplasm of prostate (Primary Dx) Social [...] 11/18/22 Ronnie Vazquez MD, MS Radiation Oncology [facility] [phone] (paging oilfield plant and field operator) Pager #[phone] PATIENT IDENTIFICATION IDENTIFICATION: Nain Mckeon is a 66 y.o. male with node positive prostate cancer who completed radiotherapy to his pelvis and prostate at the [facility] in [place], [place]. Details of his radiation treatment course [...] Rama Ramos NP of our department at [facility] in [facility]. He completed 3 years of LT ADT in 2019. He did not tolerate abiraterone due to required prednisonethis was only tolerated for approximately 2 months in 2018. His PSA has been steadily increasing April 2021 (0.19) to October 2022 (1.7). Please see below: He saw Rama Ramos most recently on 10/12/2022 at which time recommendation was made to obtain PSMA PET scan (on 11/09/22) and a referral was placed to Dr. Tobar of medical oncology (scheduled for 11/22/2022). He has nocturia 1-3x, l2endom during the day. No incontinence, urgency. No issues with bowels or rectum. He is very active, playing [employer] daily and swimming several times weekly. Performance [...] salvage prostatectomy or reirradiation with brachytherapy at [facility]. We also discussed that resuming ADT therapy [...] Leavitt MD Chief Resident ([id number]) Radiation Oncology [facility] Attending MD Attestation: I have seen the patient in [...] as above Ronnie Vazquez MD, MS Manager Psychology Radiation Oncology documented in this encounter Plan of Treatment Upcoming Encounters Date Type Department Care Team (Late st Contact Info) Description 01/24/2024 2:00 PM EST Office Visit Dermatology at [address] [place] [address] Prisca Hughes MD [facility] DR [facility]OE[facility] [address] 02/07/2024 1:30 PM EST Office Visit Hematology/Oncology at [address] [phone] Harjinder Snyder MD [facility] DR HEMATOLOGY [place] [address] Bisi Cheng APRN [facility] [place] [address] documented as of this encounter Results * [...] is highly likely to be present) References: Melen S1, Christie JH1, Maloney S1, Silvestre C1, Lowery J1, Czarniecki M1, Gold S1, Moreno G1, Rayn K1, Reynoso MJ1, Wood BJ1, Ferrer PA1, Antoni PL1, Shweta B1. ??A Grading System for the Assessment of Risk of Extraprostatic Extension of Prostate Cancer at Multiparametric MRI. Radiology. 2019 May;290(3):709-719. doi: 10.1148/radiol.7702338866. Epub 2018Mar 28. Thank you for letting us participate in the care of this patient. ??If you are a health care provider and have any questions regarding this report, please contact the number below. ??For patients who have questions please contact the health respite care provider that requested your imaging first. ? Narrative [...] JH1, Maloney S1, Silvestre C1, Lowery J1, Czarnieckmonster M1,Gold S1, Moreno G1, Rayn K1, Edgardo MJ1, Christos BJ1, Nabil PA1, Antoni PL1, Shweta B1.A Grading System for the Assessment of Risk of Extraprostatic Extension of Prostate Cancer at Multiparametric MRI. Radiology. 2019Mar;290(3):709-719. doi: 10.1148/radiol.8103674623. Epub 2018Mar 28. Thank you for letting us participate in the care of this patient. If youare a health care provider and have any questions regarding this report,please contact the number below. For patients who have questions please contactthe health respite care provider that requested your imaging first. Ronnie Vazquez MD IMG MRI ORDERABLES documented in this encounter Visit Diagnoses Diagnosis Malignant neoplasm of prostate- Primary Malignant neoplasm of prostate documented in this encounter Care Teams Writing Center Director Relationship Specialty Start Date End Date Cleio Sanders MD [address] [place] [address] PCP - General Internal Medicine 05/19/16 documented as of this encounter
--- OUTSIDE RECORDS SUMMARY | 2024-01-19 16:13 | XMS_ITS | Encounter Summary ---
Author Organization [facility] Address [facility] [place] [address] Care Team Providers Care Field Engineer Name Role Phone Celio Sanders MD Primary Care Provider [phone] Encounter Details Date Type Department Care Team (Late st Contact Info) Description 05/11/2022 10:15 AM EST Office Visit Radiation Oncology at [address] [phone] Rama Ramos APRN [facility] [place] [address] Malignant neoplasm of prostate (Primary Dx) Social [...] this encounter Progress Notes * Rama Ramos, MACHINE SLAT BASKET MAKER - 05/11/2022 10:15 AM ESTSummary: 71 year old M dx high risk prostate cancer. Compl RT 10/27/16. Compl 3 years ADT w/ final dose 05/2019 [facility] [place] [address] Phone: RADIATION ONCOLOGY FOLLOW UP NOTE Patient Nain Mckeon 1950 PCP: Celio Sanders MD Urologist: Radiation oncologist: Dr. Ronnie Vazquez Chief Complaint: follow up/labs for prostate cancer Time since completed RT:10/27/16 ADT:3 years of Lupron or eligard with last dose 05/04/2019 Tried and stopped abiraterone /pred d/t not patrick pred with bipolar d.o. This was started in [place] and ended when he returned to [place]. Current treatment:Surveillance HPI: Per Dr Ronnie Vazquez [...] 5/12 cores (all on right side), T2b, [place] 8 Darlyn-neural invasion present PSA - 47.5 [...] LN no longer seen). Pt was in [place] for a period of 5 months and he received a 22.5mg leuprolide there on 05/15/2018. The facility [facility] and Provider Sp Coreas MD. 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 Smoking:none [...] of manic sx. He had this in [place] during a visitthere but only on x 1 month and could not tolerate so stopped as soon as return to [place]. Concern at this time is that while there are no urinary sx of concern and seeing urology in summer,had a smooth prostate he now had doubling time of 6 months in January with PSA 0.56 and now effectively almost doubled in 3 months with and PSA rise to 0.98. While making a couple of trips of several months to [place] during his lupron tx period, he did [...] lupron and eligard in past (eligard in [place] when he was there for a period of 5months) x 3 years. Abiraterone and pred started in [place] he states and tried but did not tolerate the prednisone as he experienced manic sx so needed to stop this combo when he returned to [place]. Regino not see dates on this. I do not think he has tried enzalutamide. He was aware at one point that a possible return to lupron might be needed but his Dr in [place] stated in note reluctance to dothis based on senior living CV risk factors. There is also an added risk of CV dz in use of antipsychotics which pt requires for management of bipolar disorder. # survivorship/lifestyle/wellness: Genetic Risk Evaluation: Body weight/nutrition: Exercise: swims 3-4 days a week. Plays [employer] ball. He fx wrist a couple weeks [...] the radiation therapy/prostate cancer Rama Ramos MSN, MACHINE SLAT BASKET MAKER, BUILDING CLEANING SUPERVISOR-C Nurse Practitioner Radiation Oncology documented in this encounter Plan of Treatment Upcoming Encounters Date Type Department Care Team (Late st Contact Info) Description 01/24/2024 2:00 PM EST Office Visit Dermatology at [address] [place] [address] Prisca Hughes MD [facility] DR PHOEBE [place] [address] 02/07/2024 1:30 PM EST Office Visit Hematology/Oncology at [address] [phone] Harjinder Snyder MD [facility] DR HEMATOLOGY [place] [address] Bisi Cheng APRN [facility] [place] [address] documented as of this encounter Visit Diagnoses Diagnosis Malignant neoplasm of prostate- Primary documented in this encounter Care Teams Field Engineer Relationship Specialty Start Date End Date Celio Sanders MD [address] [place] [address] PCP - General Internal Medicine 05/19/16 documented as of this encounter
--- OUTSIDE RECORDS SUMMARY | 2024-01-19 16:13 | XMS_ITS | Encounter Summary ---
Author Organization [facility] Address [facility] [place] [address] Care Team Providers Care Trim Sawyer Name Role Phone Celio Sanders MD Primary Care Provider [phone] Encounter Details Date Type Department Care Team [...] PM EST Office Visit Dermatology at [address] [phone] Prisca Hughes MD [facility] DR PHOEBE [place] [address] 02/07/2024 1:30 PM EST Office Visit Hematology/Oncology at [address] [phone] Harjinder Snyder MD [facility] H[place] [address] Bisi Cheng APRN [facility] [place] [address] documented as of this encounter Visit Diagnoses Not on filedocumented in this encounter Care Teams Trim Sawyer Relationship Specialty Start Date End Date Celio Sanders MD [address] [place] [address] PCP - General Internal Medicine 05/19/16 documented as of this encounter
--- OUTSIDE RECORDS SUMMARY | 2024-01-19 16:13 | XMS_ITS | Encounter Summary ---
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 Dayana Tompkins, RN [address] [place] [address] [place] [address] [facility] Dermatology [address] [place] [address] Referral ID Status Reason Start Date Expiration Date V isits Requested Visits Authorized [id number] Closed Consult, Test & Treat 07/20/2021 07/20/2022 1 1 Encounter Details Date Type Department Care Team ([facility] Contact Info) Description 07/20/2021 Orders Only Hematology/Oncology at [address] [phone] Dayana Tompkins, RN BRCA gene mutation positive; [...] [facility] [address] [place] [address] Prisca Hughes MD [facility] DR PHOEBE [place] [address] 02/07/2024 1:30 PM EST Office Visit Hematology/Oncology at [address] [phone] Harjinder Snyder MD [facility] DR HEMATOLOGY [place] [address] Bisi Cheng APRN [facility] [place] [address] Scheduled Referrals Name Type Priority Associated Diagnoses Orde r Schedule Referral to Dermatology Outpatient Referral Routine 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
--- OUTSIDE RECORDS SUMMARY | 2024-01-19 16:13 | XMS_ITS | Encounter Summary ---
Author Organization [facility] Address [facility] [place] [address] Care Team Providers Care Electrical Design Technician Name Role Phone Celio Sanders MD Primary Care Provider [phone] Encounter Details Date Type Department Care Team [...] 2:00 PM EST Office Visit Dermatology at [address] [phone] Prisca Hughes MD [facility] DR [place] [address] 02/07/2024 1:30 PM EST Office Visit Hematology/Oncology at [address] [phone] Harjinder Snyder MD [facility] [place] [address] Bisi Cheng APRN [facility] [place] [address] documented as of this encounter Visit Diagnoses Not on filedocumented in this encounter Care Teams Electrical Design Technician Relationship Specialty Start Date End Date Celio Sanders MD [address] [place] [address] PCP - General Internal Medicine 05/19/16 documented as of this encounter
--- OUTSIDE RECORDS SUMMARY | 2024-01-19 16:13 | XMS_ITS | Encounter Summary ---
Author Organization [facility] Address [facility] [place] [address] Care Team Providers Care Keno Writer / Runner Name Role Phone Celio Sanders MD Primary Care Provider [phone] Reason for Visit * Reason Comments Injections Degarelix * Treatment/Therapy Plan Authorization (Routine) - Closed Specialty Diagnoses / Procedures Referred By Contac t Referred To Contact Hematology and Oncology Diagnoses Prostate cancer metastatic to intrapelvic lymph node Procedures Degarelix (Firmagon) Injection ([facility], [facility], [facility] HemOnc) New Patient Induction - As of 02/01/2023 11:18 AM Ronnie Vazquez MD [address] [place] [address] [place] [address] St Hem Onc Infusion [address] [place] [phone] Referral ID Status Reason Start Date Expiration Date Visits Re quested Visits Authorized [id number] Closed 02/01/2023 02/01/2024 99 99 Encounter Details Date Type Department Care Team (Late st Contact Info) Description 02/03/2023 1:00 PM EST Infusion Hematology Oncology at [address] [phone] Prostate cancer metastatic to intrapelvic [...] PM EST Office Visit Dermatology at [address] [place] [address] Prisca Hughes MD [facility] DR PHOEBE IBARRA-[place] [address] 02/07/2024 1:30 PM EST Office Visit Hematology/Oncology at [address] [phone] Harjinder Snyder MD [facility] HEMATOLOGY [place] [address] Bisi Cheng APRN [facility] DR [place] [address] documented as of this encounter Visit Diagnoses [...] section) documented in this encounter Care Teams Keno Writer / Runner Relationship Specialty Start Date End Date Celio Sanders MD [address] [place] [address] PCP - General Internal Medicine 05/19/16 documented as of this encounter
--- OUTSIDE RECORDS SUMMARY | 2024-01-19 16:13 | XMS_ITS | Encounter Summary ---
Author Organization [facility] Address [facility] [place] [address] Care Team Providers Care Sulfur Burner Name Role Phone Celio Sanders MD Primary Care Provider [phone] Encounter Details Date Type Department Care Team (Late st Contact Info) Description 02/17/2023 Orders Only Radiation Oncology at [address] [phone] Ronnie Vazquez MD [address] [place] [address] DR RADIATION ONCOLOGY [place], [place] [id number] Social History Tobacco Use Types Packs/Day Years Used Date Smoking Tobacco: Never Smokeless Tobacco: Never Alcohol Use Standard Drinks/Week Comments Not Currently 0 (1 standard drink = 0.6 oz pur e alcohol) beer and wine twice a month [facility] Utilities Answer Date Recorded In the past 12 months has [employer], gas, oil, or water [employer] threatened to shut off services in your [...] [facility] [address] [place] [address] Prisca Hughes MD [facility] DR PHOEBE [place] [address] 02/07/2024 1:30 PM EST Office Visit Hematology/Oncology at [address] [phone] Harjinder Snyder MD [facility] DR [place] [address] Bisi Cheng APRN [facility] [place] [address] documented as of this encounter Visit Diagnoses Not on filedocumented in this encounter Care Teams Sulfur Burner Relationship Specialty Start Date End Date Celio Sanders MD [address] [place] [address] PCP - General Internal Medicine 05/19/16 documented as of this encounter
--- OUTSIDE RECORDS SUMMARY | 2024-01-19 16:13 | XMS_ITS | Encounter Summary ---
Author Organization [facility] Address [facility] [place] [address] Care Team Providers Care Video And Sound Recorder Name Role Phone Celio Sanders MD Primary Care Provider [phone] Reason for Visit * Reason Onset Date Comments New Medication Request 02/22/2023 xtandi Encounter Details Date Type Department Care Team (Late st Contact Info) Description 02/22/2023 Telephone Hematology/Oncology at [address] [phone] Tracy Reno RN New Medication Request (xtandi) Social History Tobacco Use Types Packs/Day Years Used Date Smoking Tobacco: Never Smokeless Tobacco: Never Alcohol Use Standard Drinks/Week Comments Not Currently 0 (1 standard drink = 0.6 oz pur e alcohol) beer and wine twice a month [facility] Utilities Answer Date Recorded In [...] signed by provider and manually faxed to [facility] pharmacy. If high copay funding to be checked, if none available will need to apply to [facility]. documented in this encounter Plan of Treatment Upcoming Encounters Date Type Department Care Team (Late st Contact Info) Description 01/24/2024 2:00 PM EST Office Visit Dermatology at [facility] [address] [place] [address] Prisca Hughes MD [facility] DR PHOEBE MUHAMMAD[place] [address] 02/07/2024 1:30 PM EST Office Visit Hematology/Oncology at [address] [phone] Harjinder Snyder MD [facility] DR HEMATOLOGY [place] [address] Bisi Cheng APRN [facility] [place] [address] documented as of this encounter Visit Diagnoses Not on filedocumented in this encounter Care Teams Video And Sound Recorder Relationship Specialty Start Date End Date Celio Sanders MD [address] [place] [address] PCP - General Internal Medicine 05/19/16 documented as of this encounter
--- OUTSIDE RECORDS SUMMARY | 2024-01-19 16:13 | XMS_ITS | Encounter Summary ---
Author Organization [facility] Address [facility] [place] [address] Care Team Providers Care Wood Lathe Operator Name Role Phone Celio Sanders MD Primary Care Provider [phone] Encounter Details Date Type Department Care Team [...] PM EST Office Visit Dermatology at [address] [phone] Prisca Hughes MD [facility] [address] [place] [address] 02/07/2024 1:30 PM EST Office Visit Hematology/Oncology at [address] [phone] Harjinder Sndyer MD [facility] [place] [address] Bisi Cheng APRN [facility] [place] [place] [address] documented as of this encounter Visit Diagnoses Not on filedocumented in this encounter Care Teams Wood Lathe Operator Relationship Specialty Start Date End Date Celio Sanders MD [address] [place] [address] PCP - General Internal Medicine 05/19/16 documented as of this encounter
--- OUTSIDE RECORDS SUMMARY | 2024-01-19 16:13 | XMS_ITS | Encounter Summary ---
Author Organization [facility] [place] [address] Care Team Providers Care Fingerer Name Role Phone Celio Sanders MD Primary Care Provider [phone] Encounter Details Date Type Department Care Team (Late Contact Info) Description 04/30/2022 Orders [place] [address] Rama Ramos APRN [facility] [place] [address] Malignant neoplasm of prostate (Primary Dx); Vitamin [...] at [facility] [address] [place] [address] Prisca Hughes MD [facility] DR PHOE[place] [address] 02/07/2024 1:30 PM EST Office Visit Hematology/Oncology at [address] [phone] Harjinder Snyder MD [facility] [place] [address] Bisi Cheng APRN [facility] [place] [address] documented as of this encounter Visit Diagnoses Diagnosis Malignant neoplasm of prostate- Primary Vitamin D deficiency, unspecified documented in this encounter Care Teams Fingerer Relationship Specialty Start Date End Date Celio Sanders MD [address] [place] [address] PCP - General Internal Medicine 05/19/16 documented as of this encounter
--- OUTSIDE RECORDS SUMMARY | 2024-01-19 16:13 | XMS_ITS | Encounter Summary ---
Author Organization [facility] [place] [address] Care Team Providers Care Refund Specialist Name Role Phone Celio Sanders MD Primary Care Provider Encounter Details Date Type Department Care Team (Late st Contact Info) Description 01/31/2023 Telephone Radiation Oncology at [address] [phone] Ronnie Vazquez MD [address] [place] [address] DR RADIATION ONCOLOGY [place], [place] [id number] Social History Tobacco Use Types Packs/Day Years [...] Oncology Phone Note Ronnie Vazquez MD, MS [facility] [place] PATIENT NAME: Nain Mckeon DATE OF : [...] 2:00 PM EST Office Visit Dermatology at [address] [place] [address] Prisca Hughes MD [facility] DR [place] [address] 02/07/2024 1:30 PM EST Office Visit Hematology/Oncology at [address] [phone] Harjinder Snyder MD [facility] [place] [address] Bisi Cheng APRN [facility] [place] [address] documented as of this encounter Visit Diagnoses Not on filedocumented in this encounter Care Teams Refund Specialist Relationship Specialty Start Date End Date Celio Sanders MD [address] [place] [address] PCP - General Internal Medicine 05/19/16 documented as of this encounter
--- OUTSIDE RECORDS SUMMARY | 2024-01-19 16:13 | XMS_ITS | Encounter Summary ---
Author Organization [facility] Address [facility] [place] [address] Care Team Providers Care Legislative Director Name Role Phone Celio Sanders MD Primary Care Provider [phone] Encounter Details Date Type Department Care Team [...] Dermatology at [facility] [address] [place] [address] Prisca Hughes MD [facility] DR PH[place] [address] 02/07/2024 1:30 PM EST Office Visit Hematology/Oncology at [address] [phone] Harjinder Snyder MD [facility] DR [place] [address] Bisi Cheng APRN [facility] [place] [address] documented as of this encounter Visit Diagnoses Not on filedocumented in this encounter Care Teams Legislative Director Relationship Specialty Start Date End Date Celio Sanders MD [address] [place] [address] PCP - General Internal Medicine 05/19/16 documented as of this encounter
--- OUTSIDE RECORDS SUMMARY | 2024-01-19 16:13 | XMS_ITS | Encounter Summary ---
Author Organization [facility] Address [facility] [place] [address] Care Team Providers Care Relay Shop Tester Name Role Phone Celio Sanders MD Primary Care Provider [phone] Encounter Details Date Type Department Care Team (Late st Contact Info) Description 02/04/2022 3:15 PM EST Office Visit Radiation Oncology at [address] [phone] Rama Ramos APRN [facility] [place] [address] Age-related osteoporosis with current pathological fracture, unspecified [...] encounter Progress Notes * Rama Ramos, MACHINE PULLER - 02/04/2022 3:15 PM ESTSummary: 71 year old M dx high risk prostate cancer. Compl RT 10/27/16. Compl 3 years ADT w/ final dose 05/2019 [facility] [place] [address] Phone: RADIATION ONCOLOGY FOLLOW UP NOTE Patient [...] [place] and ended when he returned to [place]. Current treatment:Surveillance HPI: Per Dr Ronnie Vazquez [...] 5/12 cores (all on right side), T2b, [place] 8 Darlyn-neural invasion present PSA - 47.5 [...] the following outside notes: Pt was in [place] for a period of 5 months and he received a 22.5mg leuprolide there on 05/15/2018. The facility [facility] and Provider Sp Coreas MD. This [...] states he was put on this in [place] during a visit there but only on x 1 month and could not tolerate so [place]. Concern at this time is that while [...] stop this combo when he returned to [place]. Regino not see dates on this. I do not think he has tried enzalutamide. He was aware at one point that a possible return to lupron might be needed but his Dr in [place] stated in note reluctance to dothis based on nursing home CV risk factors. There is also an added risk of CV dz in use of antipsychotics which pt requires for management of bipolar disorder. # survivorship/lifestyle/wellness: Genetic Risk Evaluation: Body weight/nutrition: Exercise: swims 3-4 days a week. Plays [employer] ball. He fx wrist a couple weeks ago. Will be seeing someone to address. Bone health: fx wrist. Smoking: no smoking Alcohol: none Sleep:sleeping very well now. Sunscreen: Annual exam with PCP: But different PCP recently and will tell front office manager. (Now Celio Sanders MD) Up to date [...] radiation therapy/prostate cancer Rama Ramos MSN, MACHINE PULLER, FISHING TOOL SUPERVISOR-C Nurse Practitioner Radiation Oncology documented in this encounter Plan of Treatment Upcoming Encounters Date Type Department Care Team (Late st Contact Info) Description 01/24/2024 2:00 PM EST Office Visit Dermatology at [address] [place] [address] Prisca Hughes MD [facility] DR PHOE[place] [address] 02/07/2024 1:30 PM EST Office Visit Hematology/Oncology at [address] [phone] Harjinder Snyder MD [facility] DR [place] [address] Bisi Cheng APRN [facility] [place] [address] documented as of this encounter Visit Diagnoses Diagnosis Age-related osteoporosis with current pathological fracture, unspecified hand, subsequent encounter for fracture with routine healing- Primary Malignant neoplasm of prostate Age-related osteoporosis without current pathological fracture Senile osteoporosis documented in this encounter Care Teams Relay Shop Tester Relationship Specialty Start Date End Date Celio Sanders MD [address] [place] [address] PCP - General Internal Medicine 05/19/16 documented as of this encounter
--- OUTSIDE RECORDS SUMMARY | 2024-01-19 16:13 | XMS_ITS | Encounter Summary ---
Author Organization [facility] Address [facility] [place] [address] Care Team Providers Care Shear Assembler Name Role Phone Celio Sanders MD Primary Care Provider [phone] Encounter Details Date Type Department Care Team (Latest Contact Info) Description 01/20/2023 9:00 AM EST - 01/20/2023 11:[address] [facility] Hospital [place] [phone] Teresa Kelly MD [facility] [place] [address] Elevated PSA Discharge Disposition: Home Social History [...] 2:00 PM EST Office Visit Dermatology at [address] [place] [address] Prisca Hughes MD [facility] [place] [address] 02/07/2024 1:30 PM EST Office Visit Hematology/Oncology at [address] [phone] Harjinder Snyder MD [facility] [place] [address] Bisi Cheng APRN [facility] [place] [address] documented as of this encounter Procedures Procedure [...] procedure. Electronically signed by: Mahnaz Coello MD, [facility] ([phone]), at 01/20/2023 1:03 PM Thank you for letting us participate in the care of this patient. If you are a health care provider and have any questions regarding this report, please contact the number above. For patients who have questions, please contact the health outdoor emergency care technician that requested your imaging first. ? Mahnaz Coello, Staff Physician Electronically Signed Final Report ?? 01/20/2023 01:09 pm Narrative 01/20/2023 1:10 PM EST Male Pelvis ? (Signed Final 01/20/2023 01:09 pm) PATIENT INFO: ID #: ? [id number] ?: ??[birth year] (72 yrs)(M) Name: ? NAIN LIPSCOMB ?Visit Date: 01/20/2023 10:17 am PERFORMED BY: Attending: ?Mode MUNOZ, Mahnaz Burroughs Performed By: ? Joce Phelps RDMS Referred By: ?TERESA KELLY Location: ? [facility] SERVICE(S) PROVIDED: UTRBXURO - Prostate Biopsy with UroNav Fusion ? [id number], [id number] - [id number] INDICATIONS: PI-RADS 5 TECHNIQUE/SCAN QUALITY: Technique: ?Transducer [...] 01/20/2023 01:09 pm) PATIENT INFO: ID #: [id number] : [birth year] (72 yrs)(M) Name: NAIN LIPSCOMB Visit Date: 01/20/2023 10:17 am PERFORMED BY: Attending: Mahnaz Coello MD Performed By: Joce Phelps RDMS Referred By: TERESA KELLY Location: [facility] SERVICE(S) PROVIDED: UTRBXURO - Prostate Biopsy with UroNav Fusion [id number], [id number] - [id number] INDICATIONS: PI-RADS 5 TECHNIQUE/SCAN QUALITY: Technique: Transducer [...] Urology who performed multiple biopsies in the [address] [place] [address] location. UroNav fusion was used for this procedure. Electronically signed by: Mahnaz Coello MD, [facility] ([phone]), at 01/20/2023 1:03 PM Thank you for letting us participate in the care of this patient. If you are a health care provider and have any questions regarding this report, please contact the number above. For patients who have questions, please contact the health outdoor emergency care technician that requested your imaging first. Mahnaz Coello, Staff Physician Electronically Signed Final Report 01/20/2023 01:09 pm Teresa Kelly MD [facility] PROC SULAIMANA LUIS DANIEL * Specimen to Pathology (01/20/2023 10:31 AM EST) AP Specimen 01/20/2023 10:3 1 AM EST 01/20/2023 10:31 AM EST Narrative [facility] - 01/20/2023 10:31 AM EST Specimen requisition ordered. ??Separate Pathology report to follow Teresa Kelly MD PATHOLOGY/CYTOLOGY ORDERABLES Performing Organization Address City/[facility]/ZIP Co de Phone Number [facility] [place] [address] * Specimen to Pathology (01/20/2023 10:31 AM EST) AP Specimen 01/20/2023 10:3 1 AM EST 01/20/2023 10:31 AM EST Narrative [facility] - 01/20/2023 10:31 AM EST Specimen requisition ordered. ??Separate Pathology report to follow Teresa Kelly MD PATHOLOGY/CYTOLOGY ORDERABLES Performing Organization Address City/[facility]/ZIP Co de Phone Number [facility] [place] [address] * Specimen to Pathology (01/20/2023 10:31 AM EST) AP Specimen 01/20/2023 10:3 1 AM EST 01/20/2023 10:31 AM EST Narrative [facility] - 01/20/2023 10:31 AM EST Specimen requisition ordered. ??Separate Pathology report to follow Teresa Kelly MD PATHOLOGY/CYTOLOGY ORDERABLES Performing Organization Address [facility] Co de Phone Number [facility] [place] [address] * Specimen to Pathology (01/20/2023 10:31 AM EST) AP Specimen 01/20/2023 10:3 1 AM EST 01/20/2023 10:31 AM EST Narrative [facility] - 01/20/2023 10:31 AM EST Specimen requisition ordered. ??Separate Pathology report to follow Teresa Kelly MD PATHOLOGY/CYTOLOGY ORDERABLES Performing Organization Address City/[facility] Co de Phone Number [facility] [place] [address] * Specimen to Pathology (01/20/2023 10:31 AM EST) AP Specimen 01/20/2023 10:3 1 AM EST 01/20/2023 10:31 AM EST Narrative [facility] - 01/20/2023 10:31 AM EST Specimen requisition ordered. ??Separate Pathology report to follow Teresa Kelly MD PATHOLOGY/CYTOLOGY ORDERABLES Performing Organization Address [facility] Co de Phone Number [facility] [place] [address] * Specimen to Pathology (01/20/2023 10:31 AM EST) AP Specimen 01/20/2023 10:3 1 AM EST 01/20/2023 10:31 AM EST Narrative [facility] - 01/20/2023 10:31 AM EST Specimen requisition ordered. ??Separate Pathology report to follow Teresa Kelly MD PATHOLOGY/CYTOLOGY ORDERABLES Performing Organization Address [facility] de Phone Number [facility] [place] [address] * Specimen to Pathology (01/20/2023 10:31 AM EST) AP Specimen 01/20/2023 10:3 1 AM EST 01/20/2023 10:31 AM EST Narrative [facility] - 01/20/2023 10:31 AM EST Specimen requisition ordered. ??Separate Pathology report to follow Teresa Kelly MD PATHOLOGY/CYTOLOGY ORDERABLES Performing Organization Address [facility] Co de Phone Number [facility] [place] [address] * Specimen to Pathology (01/20/2023 10:31 AM EST) AP Specimen 01/20/2023 10:3 1 AM EST 01/20/2023 10:31 AM EST Narrative [facility] - 01/20/2023 10:31 AM EST Specimen requisition ordered. ??Separate Pathology report to follow Teresa Kelly MD PATHOLOGY/CYTOLOGY ORDERABLES Performing Organization Address [facility]/State/[place] [address] * Specimen to Pathology (01/20/2023 10:31 AM EST) AP Specimen 01/20/2023 10:3 1 AM EST 01/20/2023 10:31 AM EST Narrative [facility] - 01/20/2023 10:31 AM EST Specimen requisition ordered. ??Separate Pathology report to follow Teresa Kelly MD PATHOLOGY/CYTOLOGY ORDERABLES Performing Organization Address City/[facility]/[place] [address] * Specimen to Pathology (01/20/2023 10:31 AM EST) AP Specimen 01/20/2023 10:3 1 AM EST 01/20/2023 10:31 AM EST Narrative [facility] - 01/20/2023 10:31 AM EST Specimen requisition ordered. ??Separate Pathology report to follow Teresa Kelly MD PATHOLOGY/CYTOLOGY ORDERABLES Performing Organization Address City/[facility] Co de Phone Number [facility] [place] [address] * Specimen to Pathology (01/20/2023 10:31 AM EST) AP Specimen 01/20/2023 10:3 1 AM EST 01/20/2023 10:31 AM EST Narrative [facility] - 01/20/2023 10:31 AM EST Specimen requisition ordered. ??Separate Pathology report to follow Teresa Kelly MD PATHOLOGY/CYTOLOGY ORDERABLES Performing Organization Address City/[facility]/ZIP Co de Phone Number [facility] [place] [address] * Specimen to Pathology (01/20/2023 10:31 AM EST) AP Specimen 01/20/2023 10:3 1 AM EST 01/20/2023 10:31 AM EST Narrative [facility] - 01/20/2023 10:31 AM EST Specimen requisition ordered. ??Separate Pathology report to follow Teresa Kelly MD PATHOLOGY/CYTOLOGY ORDERABLES Performing Organization Address City/[facility]/ZIP Co de Phone Number [facility] [place] [address] * Specimen to Pathology (01/20/2023 10:31 AM EST) AP Specimen 01/20/2023 10:3 1 AM EST 01/20/2023 10:31 AM EST Narrative [facility] - 01/20/2023 10:31 AM EST Specimen requisition ordered. ??Separate Pathology report to follow Teresa Kelly MD PATHOLOGY/CYTOLOGY ORDERABLES Performing Organization Address [facility] [place] [address] * Surgical Pathology Report (01/20/2023 10:30 AM EST) Final Diagnosis [id number] ? Location: 3S The signing pathologist has (i) examined the relevant preparation(s) for the specimen(s) and (ii) rendered or confirmed the diagnosis(es). . ?Surgical Pathology DIAGNOSIS A - Prostate, Right lateral base, biopsy: - Prostatic adenocarcinoma, with cribriform features ?Grade Group 5 ??(Ashkum score 5+4=9), involving 40% of a single core. - Andre pattern 5 represents 80% of tumor, Ashkum pattern 4 represents 20% of tumor. B - Prostate, Right lateral mid, biopsy: - Prostatic adenocarcinoma, ?? Grade Group 5 ??(Andre score 5+5=10), involving 70% of a single core. C - Prostate, Right lateral apex, biopsy: - Prostatic adenocarcinoma, ?? Grade Group 5 ??(Andre score 5+4=9), involving 30% of a single core. - Andre pattern 5 represents 90% of tumor, Andre pattern 4 represents 10% of tumor. D - Prostate, Right base, biopsy: - Prostatic adenocarcinoma, with cribriform features, ?Grade Group 5 ??(Ashkum score 5+4=9), involving 80% of a single core. - Ashkum pattern 5 represents 90% of tumor, Andre pattern 4 represents 10% of tumor. - ??Perineural invasion is present. E - Prostate, Right mid, biopsy: - Prostatic adenocarcinoma, ?? Grade Group 5 ??(Ashkum score 5+4=9), involving 70% of a single core. - Ashkum pattern 5 represents 90% of tumor, Andre pattern 4 represents 10% of tumor. - ??Perineural invasion is present. F - Prostate, Right apex, biopsy: - Prostatic adenocarcinoma, with cribriform features, ?Grade Group 5 ??(Ashkum score 5+4=9), involving 60% of a single core. - Ashkum pattern 5 represents 80% of tumor, Ashkum pattern 4 represents 20% of tumor. G - Prostate, Left lateral base, biopsy: - Prostatic adenocarcinoma, with cribriform features, ?Grade Group 5 ??(Andre score 5+4=9), involving 40% of a single core. - Ashkum pattern 5 represents 90% of tumor, Andre pattern 4 represents 10% of tumor. - ??Perineural invasion is present. H - Prostate, Left lateral mid, biopsy: - Prostatic adenocarcinoma, with cribriform features, ?Grade Group 5 ??(Ashkum score 5+4=9), involving 60% of a single core. - Andre pattern 5 represents 90% of tumor, Andre pattern 4 represents 10% of tumor. - ??Perineural invasion is present. I - Prostate, Left lateral apex, biopsy: - Prostatic adenocarcinoma, with cribriform features, ?Grade Group 5 ??(Ashkum score 5+4=9), involving 60% of a single core. . DIAGNOSIS - Andre pattern 5 represents 90% of tumor, Ashkum pattern 4 represents 10% of tumor. J - Prostate, Left base, biopsy: - Prostatic adenocarcinoma, with cribriform features, ?Grade Group 5 ??(Andre score 5+4=9), involving 50% of a single core. - Andre pattern 5 represents 70% of tumor, Andre pattern 4 represents 30% of tumor. - ??Perineural invasion is present. K - Prostate, Left mid, biopsy: - Prostatic adenocarcinoma, ?? Grade Group 5 ??(Andre score 5+4=9), involving 60% of a single core. - Andre pattern 5 represents 90% of tumor, Ashkum pattern 4 represents 10% of tumor. - ??Perineural invasion is present. L - Prostate, Left apex, biopsy: - Prostatic adenocarcinoma, ?? Grade Group 5 ??(Andre score 5+5=10), involving 40% of a single core. M - Prostate, MRI LESION #1, biopsy: - Prostatic adenocarcinoma, ?? Grade Group 5 ??(Andre score 5+4=9), with cribriform features, involving four of cores ?? (80%, 80%, 70%, 60%, respectively). - Ashkum pattern 5 accounts for 70% of tumor. - ??Perineural invasion is present. Electronically signed by: ?DORIAN STILL Verified: ??01/24/2023 9:45 Performed at: ??-[facility] [place], [place] [address] Furnace Clerk: Kameron Clements MD, FCAP, ??CLIA Certificate: [id number] SPECIMEN(S) SUBMITTED A - Prostate, Right lateral [...] Single, 1.7 x 0.1 cm Tissue Description: [place] needle core biopsy. Sections/Proces sing: Entirely submitted in 1 cassette labeled A1. B - Labeled/Fixativ e: Prostate right lateral mid, formalin. Quantity/Size: Single, 1.4 x 0.1 cm Tissue Description: [place] needle core biopsy. Sections/Proces sing: Entirely submitted in 1 cassette labeled B1. C - Labeled/Fixativ e: Prostate right lateral apex, formalin. Quantity/Size: Single, 1.6 x 0.1 cm Tissue Description: [place] needle core biopsy. Sections/Proces sing: Entirely submitted [...] Single, 1.8 x 0.1 cm Tissue Description: [place]-white needle core biopsy. . SPECIMEN PROCESSING Sections/Proces sing: Entirely submitted in 1 cassette labeled K1. L - Labeled/Fixativ e: Prostate left apex, formalin. Quantity/Size: Single, x 0.1 cm Tissue Description: [place] needle core biopsy. Sections/Proces sing: Entirely submitted in 1 cassette labeled L1. M - Labeled/Fixativ e: MRI lesion #1, formalin. Quantity/Size: Four, ranging from 1.5 x 0.1 cm to 1.8 x 0.1 cm Tissue Description: Yellow-white needle core biopsies. Sections/Proces sing: Entirely submitted in 2 cassettes labeled M1-M2. ??sns 01/24/2023 9:45 AM EST [facility] PROSTATIC STRUCTURE / Unknown [...] EST Teresa Kelly MD PATHOLOGY/CYTOLOGY ORDERABLES [facility] [place] [address] [facility] [place] [address] documented in this encounter Visit Diagnoses Diagnosis Elevated PSA Elevated prostate specific antigen (PSA) documented in this encounter Care Teams Shear Assembler Relationship Specialty Start Date End Date Celio Sanders MD [address] [place] [address] PCP - General Internal Medicine 05/19/16 documented as of this encounter
--- OUTSIDE RECORDS SUMMARY | 2024-01-19 16:13 | XMS_ITS | Encounter Summary ---
[place] [address] Care Team Providers Care Ict Development Manager Name Role Phone Celio Sanders MD Primary Care Provider [phone] Reason for Referral * Consultation (Routine) - Closed Specialty Diagnoses / Procedures Referred By Tess de la rosa Referred To Contact Urology Diagnoses Prostate cancer metastatic to intrapelvic lymph node Ronnie Vazquez MD [address] [place] [address] [place] [address] [facility] [place] [address] Referral ID Status Reason Start Date Expiration Date V isits Requested Visits Authorized [id number] Closed Consult, Test & Treat 01/03/2023 01/03/2024 1 1 Encounter Details Date Type Department Care Team (Late st Contact Info) Description 01/03/2023 Orders Only Radiation Oncology at [address] [address] Ronnie Vazquez MD [address] [place] [address] [place] [address] Prostate cancer metastatic to intrapelvic [...] [facility] [address] [place] [address] Prisca Hughes MD [facility] DR PHOEBE [place] [address] 02/07/2024 1:30 PM EST Office Visit Hematology/Oncology at [address] [phone] Harjinder Snyder MD [facility] H[place]ATOLOG[place] [address] Bisi Cheng APRN [facility] [place] [address] Scheduled Referrals Name Type Priority Associated Diagnoses Orde r Schedule Referral to Urology Outpatient Referral Routine Prostate cancer metastatic to intrapelvic lymph node Ordered: 01/03/2023 documented as of this encounter Visit Diagnoses Diagnosis Prostate cancer metastatic to intrapelvic lymph node documented in this encounter Care Teams Ict Development Manager Relationship Specialty Start Date End Date Celio Sanders MD [address] [place] [address] PCP - General Internal Medicine 05/19/16 documented as of this encounter
--- OUTSIDE RECORDS SUMMARY | 2024-01-19 16:13 | XMS_ITS | Encounter Summary ---
Author Organization [facility] Address [facility] [place] [address] Care Team Providers Care Threading Machine Setter Name Role Phone Celio Sanders MD Primary Care Provider [phone] Reason for Visit * Diagnostic Test (Routine) - Closed Specialty Diagnoses / Procedures Referred By Contac t Referred To Contact Radiology Diagnoses Malignant neoplasm of prostate Procedures NM PET CT PSMA Prostate ([employer]uccix) Rama Ramos STRATEGIC ACCOUNTS MANAGER [facility] [place] [address] [facility] [place] [address] Referral ID Status Reason Start Date Expiration Date V isits Requested Visits Authorized [id number] Closed Specialty Service Requested 10/12/2022 04/14/2024 1 2 Encounter Details Date Type Department Care Team (Latest Contact Info) Description 11/09/2022 1:29 PM EDT - 11/09/2022 11:59 PM EDT Hospital Encounter [place] [address] Rama Ramos STRATEGIC ACCOUNTS MANAGER [facility] [place] [address] Discharge Disposition: Home Social History [...] 2:00 PM EST Office Visit Dermatology at [address] [address] Prisca Hughes MD [facility] DR [place] [address] 02/07/2024 1:30 PM EST Office Visit Hematology/Oncology at [address] [address] Harjinder Snyder MD [facility] [place] [address] Bisi Cheng APRN [facility] [place] [address] documented as of this encounter Procedures Procedure [...] Thank you for referring this patient to [facility] Center. I have personally reviewed [...] have questions please contact the health care transition coordinator that requested your imaging first. ? Electronically signed by: Matthew Price MD, [facility] ([phone]), at 11/09/2022 4:44 PM Narrative 11/09/2022 4:44 [...] Thank you for referring this patient to [facility] Center. I have personally reviewed the image(s) and the resident's interpretationand agree with the findings, Matthew Price MD at 11/09/2022 4:44 PM Thank you for letting us participate in the care of this patient. If youare a health care provider and have any questions regarding this report,please contact the number below. For patients who have questions please contactthe health care transition coordinator that requested your imaging first. Rama Ramos STRATEGIC ACCOUNTS MANAGER IMG PET ORDERABLES documented in this encounter Visit Diagnoses Not on filedocumented in this encounter Care Teams Threading Machine Setter Relationship Specialty Start Date End Date Celio Sanders MD [address] [place] [address] PCP - General Internal Medicine 05/19/16 documented as of this encounter
--- OUTSIDE RECORDS SUMMARY | 2024-01-19 16:13 | XMS_ITS | Encounter Summary ---
Author Organization [facility] Address [facility] [place] [address] Care Team Providers Care Inspector And Unloader Name Role Phone Celio Sanders MD Primary Care Provider [phone] Encounter Details Date Type Department Care Team [...] 2:00 PM EST Office Visit Dermatology at [address] [address] Prisca Hughes MD [facility] DR [place] [address] 02/07/2024 1:30 PM EST Office Visit Hematology/Oncology at [address] [address] Harjinder Snyder MD [facility] [place] [address] Bisi Cheng APRN [facility] [place] [address] documented as of this encounter Visit Diagnoses Not on filedocumented in this encounter Care Teams Inspector And Unloader Relationship Specialty Start Date End Date Celio Sanders MD [address] [place] [address] PCP - General Internal Medicine 05/19/16 documented as of this encounter
--- OUTSIDE RECORDS SUMMARY | 2024-01-19 16:13 | XMS_ITS | Encounter Summary ---
Author Organization [facility] Address [facility] [place] [address] Care Team Providers Care Parking Station Attendant Name Role Phone Celio Sanders MD Primary Care Provider [phone] Encounter Details Date Type Department Care Team [...] 2:00 PM EST Office Visit Dermatology at [address] [address] Prisca Hughes MD [facility] DR PHOEBE IBARRA[place] [address] 02/07/2024 1:30 PM EST Office Visit Hematology/Oncology at [address] [phone] Harjinder Snyder MD [facility] HEMATOLOGY [place] [address] Bisi Cheng APRN [facility] [place] [address] documented as of this encounter Visit Diagnoses Not on filedocumented in this encounter Care Teams Parking Station Attendant Relationship Specialty Start Date End Date Celio Sanders MD [address] [place] [address] PCP - General Internal Medicine 05/19/16 documented as of this encounter
--- OUTSIDE RECORDS SUMMARY | 2024-01-19 16:13 | XMS_ITS | Encounter Summary ---
Author Organization [facility] [place] [address] Care Team Providers Care Masonry Contractor Name Role Phone Celio Sanders MD Primary Care Provider [phone] Encounter Details Date Type Department Care Team (Late st Contact Info) Description 01/03/2023 [place] [phone] Allyn Del Toro RN Social History Tobacco [...] biopsy If yes, review with PCP or remarketing rep to discuss bridging OTC, herbal and vitamin [...] PSA: 1.7 in Oct; will recheck at [facility] (order faxed 01/03/23) MRI: 12/30/22 [...] 3rd world country): Not indicated Patient Instructions/Information: [place] at Dental Hygiene Administrative Assistant 5B Eat breakfast Administer fleet enema night [...] 2:00 PM EST Office Visit Dermatology at [facility] [address] [place] [address] Prisca Hughes MD [facility] DR [place] [address] 02/07/2024 1:30 PM EST Office Visit Hematology/Oncology at [address] [phone] Harjinder Snyder MD [facility] DR HEMATOLOGY [place] [address] Bisi Cheng APRN [facility] [place] [address] documented as of this encounter Visit Diagnoses Not on filedocumented in this encounter Care Teams Masonry Contractor Relationship Specialty Start Date End Date Celio Sanders MD [address] [place] [address] PCP - General Internal Medicine 05/19/16 documented as of this encounter
--- OUTSIDE RECORDS SUMMARY | 2024-01-19 16:13 | XMS_ITS | Encounter Summary ---
Author Organization [facility] Address [facility] [place] [address] Care Team Providers Care Inventory Control Associate Name Role Phone Celio Sanders MD Primary Care Provider [phone] Encounter Details Date Type Department Care Team [...] PM EST Office Visit Dermatology at [address] [address] Prisca Hughes MD [facility] [address] [place] [address] 02/07/2024 1:30 PM EST Office Visit Hematology/Oncology at [address] [address] Harjinder Snyder MD [facility] [place] [address] Bisi Cheng APRN [facility] [place] [address] documented as of this encounter Visit Diagnoses Not on filedocumented in this encounter Care Teams Inventory Control Associate Relationship Specialty Start Date End Date Celio Sanders MD [address] [place] [address] PCP - General Internal Medicine 05/19/16 documented as of this encounter
--- OUTSIDE RECORDS SUMMARY | 2024-01-19 16:13 | XMS_ITS | Encounter Summary ---
Author Organization [facility] [place] [address] Care Team Providers Care Business Objects Architect Name Role Phone Celio Sanders MD Primary Care Provider [phone] Reason for Referral * Diagnostic Test (Routine) - Closed Specialty Diagnoses / Procedures Referred By Contac t Referred To Contact Radiology Diagnoses Malignant neoplasm of prostate Procedures MRI Pelvis wwo (Prostate) Diane Leavitt MD [facility] DR RADIATION ONCOLOGY [address] [address] Referral ID Status Reason Start Date Expiration Date V isits Requested Visits Authorized [id number] Closed Specialty Service Requested 11/18/2022 05/16/2024 1 1 Reason for Visit * Diagnostic Test (Routine) - Closed Specialty Diagnoses / Procedures Referred By Contac t Referred To Contact Radiology Diagnoses Malignant neoplasm of prostate Procedures MRI Pelvis wwo (Prostate) Diane Leavitt MD [facility] [place] [place] [address] [place] [address] Referral ID Status Reason Start Date Expiration Date V isits Requested Visits Authorized [id number] Closed Specialty Service Requested 11/18/2022 05/16/2024 1 1 Encounter Details Date Type Department Care Team (Latest Contact Info) Description 12/30/2022 4:38 PM EDT - 12/30/2022 11:59 PM EDT Hospital [place] [address] Ronnie Vazquez MD [address] [place] [address] [place] [address] Malignant neoplasm of prostate Discharge Disposition: Home [...] [facility] [address] [place] [address] Prisca Hughes MD [facility] DR [place] [address] 02/07/2024 1:30 PM EST Office Visit Hematology/Oncology at [address] [phone] Harjinder Snyder MD [facility] [place] [address] Bisi Cheng APRN [facility] [place] [address] documented as of this encounter Procedures Procedure [...] J1, Czarniecki M1, Gold S1, Moreno G1, Rayaleshia K1, Edgardo MJ1, Christos BJ1, Nabil PA1, Antoni PL1, Shweta B1. ??A Grading System for the Assessment of Risk of Extraprostatic Extension of Prostate Cancer at Multiparametric MRI. Radiology. 2019 May;290(3):709-719. doi: 10.1148/radiol.0470061973. Epub 2018Mar 28. Thank you for letting us participate in the care of this patient. ??If you are a health care provider and have any questions regarding this report, please contact the number below. ??For patients who have questions please contact the health child care director that requested your imaging first. ? [...] janna present) References: Cinthia S1, Christie JH1, Haider S1, Silvestre C1, Lowery J1, Ana M1,Gold S1, Moreno G1, Chato K1, Edgardo MJ1, Christos BJ1, Nabil PA1, Antoni PL1, Shweta B1.A Grading System for the Assessment of Risk of Extraprostatic Extension of Prostate Cancer at Multiparametric MRI. Radiology. 2019Mar;290(3):709-719. doi: 10.1148/radiol.7064820992. Epub 2018Mar 28. Thank you for letting us participate in the care of this patient. If youare a health care provider and have any questions regarding this report,please contact the number below. For patients who have questions please contactthe health child care director that requested your imaging first. Ronnie Vazquez MD IM MRI ORDERABLES documented in this encounter Visit [...] mLs documented in this encounter Care Teams Business Objects Architect Relationship Specialty Start Date End Date Celio Sanders MD [address] [place] [address] PCP - General Internal Medicine 05/19/16 documented as of this encounter
--- OUTSIDE RECORDS SUMMARY | 2024-01-19 16:13 | XMS_ITS | Encounter Summary ---
Author Organization [facility] Address [facility] [place] [address] Care Team Providers Care Sheet Metal Shop Helper Name Role Phone Celio Sanders MD Primary Care Provider [phone] Reason for Visit * Reason Comments Prior Authorization Xtandi Encounter Details Date Type Department Care Team (Late st Contact Info) Description 02/22/2023 Specialty Pharmacy [place] [phone] Sam Antonio, [facility] Social History Tobacco Use Types Packs/Day Years Used Date Smoking Tobacco: Never Smokeless Tobacco: Never Alcohol Use Standard Drinks/Week Comments Not Currently 0 (1 standard drink = 0.6 oz pur e alcohol) beer and wine twice a month [facility] Utilities Answer Date Recorded In [...] Nain Mckeon Patient : 1950 Patient Address: [address] [place], [place] [phone] (home) Medication Name: XTANDI 40 MG TABLET Medication ID: Subscriber Insurance: [employer] ([employer]) Subscriber Insurance Comment: Phone: [phone] Fax: Physician: HARJINDER RUFFIN Physician Comment: Sent Via: Fax Daley: Ref/Case/PA#: Medication Strength Frequency Requested: Take 4 tablets by mouth daily Qty/Day Supply: 120/30 New Start: New to Therapy Diagnosis & ICD-10 Code: C61 - Prostate Cancer Patient Notified: No Submission Notes: Karlo Antonio 02/22/23 12:46 PM * Sam Antonio - 02/22/2023 12:44 PM EST [facility], Prior Authorization Approval Medication Name: XTANDI 40 MG TABLET Medication ID: Approval Dates: 02/22/2023 to 02/22/2024 Insurance requirements/notes: None Other Notes: None Case/Reference #: Approval notification Received via: Fax Copay: $2,[phone] Copay assistance: Other (Enter Comment) Copay Notes: PT has a high copay - PT will need to fill with [facility] Insurance mandated Pharmacy: Fillable at [facility]: Yes Patient Notified: No Pharmacy staff will be reaching out to the patient to inform them of their medication's approval [facility]. If applicable, a pharmacist will speak with the patient to offer our specialty pharmacy services and to arrange delivery of their medication. Sam Antonio 02/23/23 8:05 AM documented in this encounter Plan of Treatment Upcoming Encounters Date Type Department Care Team (Late st Contact Info) Description 01/24/2024 2:00 PM EST Office Visit Dermatology at [address] [address] Prisca Hughes MD [facility] DR PHOEBE [place]BAR[place] [address] 02/07/2024 1:30 PM EST Office Visit Hematology/Oncology at [address] [address] Harjinder Ruffin MD [facility] HEMATOLOGY [place] [address] Bisi Cheng APRN [facility] [place] [address] documented as of this encounter Visit Diagnoses Not on filedocumented in this encounter Care Teams Sheet Metal Shop Helper Relationship Specialty Start Date End Date Celio Sanders MD [address] [place] [address] PCP - General Internal Medicine 05/19/16 documented as of this encounter
--- OUTSIDE RECORDS SUMMARY | 2024-01-19 16:13 | XMS_ITS | Encounter Summary ---
Author Organization [facility] Address [facility] [place] [address] Care Team Providers Care Heavy Machinery Operator Name Role Phone Celio Sanders MD Primary Care Provider [phone] Encounter Details Date Type Department Care Team (Late st Contact Info) Description 10/20/2022 11:20 AM EDT Office Visit Dermatology at [facility] [address] [place] [address] Ernst Rinaldi MD [facility] [address] PHOEBE [place] [address] Actinic keratoses; Seborrheic keratoses; Multiple benign nevi; [...] left earlobe x1, left cheek x1, left mandaen x1, right forearm x1, right arm x1, [...] 1 year for FSE []Note routed to plant associate [x]Recall placed in scheduling system []Appointment scheduled at checkout Scribe attestation: Osmani Glez has performed the documentation for this encounter in the presence of and acting as a scribe for Ernst Rinaldi MD. I performed the above scribed service and agree with the accuracy of the documentation in this encounter. Reviewed and signed by: Ernst Rinaldi MD Dermatology [facility] Patient seen and evaluated with staff upper doubler: Gaye Hicks MD Dermatology [facility] * Gaye Hicks MD - 10/20/2022 11:20 [...] [facility] [address] [place] [address] Prisca Hughes MD [facility] DR PHOE[place] [address] 02/07/2024 1:30 PM EST Office Visit Hematology/Oncology at [address] [address] Harjinder Snyder MD [facility] DR [place] [address] Bisi Cheng APRN [facility] [place] [address] documented as of this encounter Visit Diagnoses Diagnosis Actinic keratoses Actinic keratosis Seborrheic keratoses Multiple benign nevi Benign neoplasm of skin, site unspecified Lentigines Other dyschromia Gee angioma Nevus, non-neoplastic documented in this encounter Care Teams Heavy Machinery Operator Relationship Specialty Start Date End Date Celio Sanders MD [address] [place] [address] PCP - General Internal Medicine 05/19/16 documented as of this encounter
--- OUTSIDE RECORDS SUMMARY | 2024-01-19 16:13 | XMS_ITS | Encounter Summary ---
Author Organization [facility] Address [facility] [place] [address] Care Team Providers Care Speech Language Pathologist Assistant Name Role Phone Celio Sanders MD Primary Care Provider [phone] Reason for Visit * Consultation (Routine) - Closed Specialty Diagnoses / Procedures Referred By Contac t Referred To Contact Hematology and Oncology Diagnoses Prostate cancer metastatic to intrapelvic lymph node Ronnie Vazquez MD [address] [place] [address] [place] [address] Harjinder Ruffin MD [facility] DR HEMATOLOGY [place] [address] Referral ID Status Reason Start Date Expiration Date V isits Requested Visits Authorized [id number] Closed Consult, Test & Treat 02/01/2023 02/01/2024 1 1 Encounter Details Date Type Department Care Team (Late st Contact Info) Description 02/15/2023 3:00 PM EST Office Visit Hematology/Oncology at [address] [address] Harjinder Ruffin MD [facility] DR HEMATOLOGY [place] [address] Bisi Cheng APRN [facility] [place] [address] Malignant neoplasm of prostate; BRCA gene mutation [...] Reno RN - 02/15/2023 3:00 PM EST [facility] New Patient Medical Oncology Note SOCIAL ASSESSMENT: See [facility] social assessment information entered. 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 [facility] [place] [address] ONCOLOGY F/u visit REFERRING: Dr Vazquez, Dr [...] biopsy revealed prostatic adenocarcinoma, Grade Group 5 (Shorter score 5+5=10) Genetic testing Mar 2018: pathogenic variant in BRCA2 (c.1929del, p.[id number] fs15). VUS in AXIN2 and CTNNA1 -01/06/23 [...] DIAGNOSTIC performed by Nicky Bray MD at [facility] ENDOSCOPY PROSTATE BIOPSY US GUIDED BIOPSY PROSTATE WITH URONAV FUSION 01/20/2023 US Guided Biopsy Prostate with Uronav Fusion 01/20/2023 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 PS: ECOG = 0 General: NAD Deferred Pathology: 01/20/2023 prostatic adenocarcinoma, Grade Group 5 (Shorter score 5+5=10) LABS: 02/15/2023 BUN 31, creatinine [...] radiation oncologist Dr. Victorino Hassan at the [facility] Given his high Andre score question is [...] observed, with no substantial between-group differences in [id number] measures. CONCLUSIONS In patients with prostate cancer with high-risk biochemical recurrence, enzalutamide plus leuprolide was superior to leuprolide alone with respect to metastasis-free survival; enzalutamide monotherapy was also superior to leuprolide alone. The safety profile of enzalutamide was consistent with that shown in previous clinical studies, with no apparent detrimental effect on quality of life. (Fundedby [employer]; [employer] ClinicalTrials.gov number, [id number]. opens in new tab.) On January 20 [...] PM EST Office Visit Dermatology at [address] [place] [address] Prisca Hughes MD [facility] DR PHOEBE [place] [address] 02/07/2024 1:30 PM EST Office Visit Hematology/Oncology at [address] [address] Harjinder Ruffin MD [facility] DR HEMATOLOGY [place] [address] Bisi Cheng APRN [facility] [place] [address] Scheduled Referrals Name Type Priority Associated Diagnoses Orde r Schedule Referral to Hematology and Oncology Outpatient Referral Routine Prostate cancer metastatic to intrapelvic lymph node Ordered: 02/01/2023 documented as of this encounter Visit Diagnoses Diagnosis Malignant neoplasm of prostate BRCA gene mutation positive documented in this encounter Care Teams Speech Language Pathologist Assistant Relationship Specialty Start Date End Date Celio Sanders MD [address] [place] [address] PCP - General Internal Medicine 05/19/16 documented as of this encounter
--- OUTSIDE RECORDS SUMMARY | 2024-01-19 16:13 | XMS_ITS | Encounter Summary ---
Author Organization [facility] Address [facility] [place]leine [place] [address] Care Team Providers Care Body Service Team Member Name Role Phone Celio Sanders MD Primary Care Provider [phone] Encounter Details Date Type Department Care Team (Late Contact Info) Description 01/24/2023 [place] [phone] Nick Kelly MD [facility] [place] [address] Social History Tobacco Use Types Packs/Day Years [...] him about the pathology which showed GG5 ([place] 5+5) prostate cancer. He will f/u with Dr. Vazquez to discuss treatment options. documented in this encounter Plan of Treatment Upcoming Encounters Date Type Department Care Team (Late Contact Info) Description 01/24/2024 2:00 PM EST Office Visit Dermatology at [facility] [address] [place] [address] Prisca Hughes MD [facility] DR PHOEBE [place] [address] 02/07/2024 1:30 PM EST Office Visit Hematology/Oncology at [address] [phone] Harjinder Snyder MD [facility] DR HEMATOLOGY [place] [address] Bisi Cheng APRN [facility] [place] [address] documented as of this encounter Visit Diagnoses Not on filedocumented in this encounter Care Teams Body Service Team Member Relationship Specialty Start Date End Date Celio Sanders MD [address] [place] [address] PCP - General Internal Medicine 05/19/16 documented as of this encounter
--- OUTSIDE RECORDS SUMMARY | 2024-01-19 16:13 | XMS_ITS | Encounter Summary ---
Author Organization [facility] Address [facility] [place] [address] Care Team Providers Care Bobtailer Name Role Phone Celio Sanders MD Primary Care Provider [phone] Encounter Details Date Type Department Care Team [...] PM EST Office Visit Dermatology at [address] [address] Prisca Hughes MD [facility] DR [place] [address] 02/07/2024 1:30 PM EST Office Visit Hematology/Oncology at [address] [address] Harjinder Snyder MD [facility] [place] [address] Bisi Cheng APRN [facility] [place] [address] documented as of this encounter Visit Diagnoses Not on filedocumented in this encounter Care Teams Bobtailer Relationship Specialty Start Date End Date Celio Sanders MD [address] [place] [address] PCP - General Internal Medicine 05/19/16 documented as of this encounter
--- OUTSIDE RECORDS SUMMARY | 2024-01-19 16:13 | XMS_ITS | Encounter Summary ---
[place] [address] Care Team Providers Care Design Intern Name Role Phone Celio Sanders MD Primary Care Provider Reason for Referral * Diagnostic Test (Routine) - Closed Specialty Diagnoses / Procedures Referred By Contac t Referred To Contact Radiology Diagnoses Malignant neoplasm of prostate Procedures NM PET CT PSMA Prostate (Illuccix) Rama Ramos MORGUE TECHNICIAN [facility] [place] [address] [place] [address] Referral ID Status Reason Start Date Expiration Date V isits Requested Visits Authorized [id number] Closed Specialty Service Requested 10/12/2022 04/14/2024 1 2 Reason for Visit * Diagnostic Test (Routine) - Closed Specialty Diagnoses / Procedures Referred By Contac t Referred To Contact Radiology Diagnoses Malignant neoplasm of prostate Procedures NM PET CT PSMA Prostate (Illuccix) Rama Ramos MORGUE TECHNICIAN [facility] [place] [address] [place] [address] Referral ID Status Reason Start Date Expiration Date V isits Requested Visits Authorized [id number] Closed Specialty Service Requested 10/12/2022 04/14/2024 1 2 Encounter Details Date Type Department Care Team (Latest Contact Info) Description 11/09/2022 1:29 PM EDT - 11/09/2022 11:59 PM EDT Hospital Encounter Nuclear Medicine at [facility] [place] [address] Rama Ramos MORGUE TECHNICIAN [facility] [place] [address] Malignant neoplasm of prostate Discharge Disposition: Home [...] Visit Dermatology at [address] [place] [address] Prisca Hughes MD [facility] DR PHOE[place] [address] 02/07/2024 1:30 PM EST Office Visit Hematology/Oncology at [address] [address] Harjinder Snyder MD [facility] DR HEM[place]OLOGY [place] [address] Bisi Cheng APRN [facility] [place] [address] documented as of this encounter Procedures Procedure [...] Thank you for referring this patient to [facility]. I have [...] who have questions please contact the health direct support professional caregiver that requested your imaging first. ? Narrative [...] Thank you for referring this patient to [facility]. I have personally reviewed the image(s) and the resident's interpretationand agree with the findings, Matthew Price MD at 11/09/2022 4:44 PM Thank you for letting us participate in the care of this patient. If youare a health care provider and have any questions regarding this report,please contact the number below. For patients who have questions please contactthe health direct support professional caregiver that requested your imaging first. Rama Jeffries Richard [facility] PET ORDERABLES documented in this encounter Visit [...] Arm documented in this encounter Care Teams Design Intern Relationship Specialty Start Date End Date Celio Sanders MD [address] [place] [address] PCP - General Internal Medicine 05/19/16 documented as of this encounter
--- OUTSIDE RECORDS SUMMARY | 2024-01-19 16:13 | XMS_ITS | Encounter Summary ---
Author Organization [facility] Address [facility] [place] [address] Care Team Providers Care Precision Optical Goods Worker Name Role Phone Celio Sanders MD Primary Care Provider [phone] Encounter Details Date Type Department Care Team (Late Contact Info) Description 05/31/2022 Orders [place] [address] Rama Ramos APRN [facility] [place] [address] Malignant neoplasm of prostate (Primary Dx) Social [...] EST Office Visit Dermatology at [facility] [address] [place] [address] Prisca Hughes MD [facility] DR [place] [address] 02/07/2024 1:30 PM EST Office Visit Hematology/Oncology at [address] [address] Harjinder Snyder MD [facility] DR [place]EM[place] [address] Bisi Cheng APRN [facility] [place] [address] documented as of this encounter Visit Diagnoses Diagnosis Malignant neoplasm of prostate- Primary documented in this encounter Care Teams [employer] Worker Relationship Specialty Start Date End Date Celio Sanders MD [address] [place] [address] PCP - General Internal Medicine 05/19/16 documented as of this encounter
--- OUTSIDE RECORDS SUMMARY | 2024-01-19 16:13 | XMS_ITS | Encounter Summary ---
Author Organization [facility] Address [facility] [place] [address] Care Team Providers Care Alcohol Rubber Name Role Phone Celio Sanders MD Primary Care Provider [phone] Encounter Details Date Type Department Care Team (Late st Contact Info) Description 07/08/2022 2:30 PM EDT Office Visit Radiation Oncology at [address] [phone] Rama Ramos APRN [facility] [place] [address] Malignant neoplasm of prostate (Primary Dx) Social [...] this encounter Progress Notes * Rama Ramos, MANAGER ADMINISTRATION - 07/08/2022 2:30 PM EDTSummary: 71 year old M dx high risk prostate cancer. Compl RT 10/27/16. Compl 3 years ADT w/ final dose 05/2019 [facility] [place] [address] Phone: RADIATION ONCOLOGY FOLLOW UP NOTE Patient [...] [place] and ended when he returned to [place]. Current treatment:Surveillance HPI: Per Dr Ronnie Vazquez [...] leuprolide there on 05/15/2018. The facility [facility] and Provider Sp Coreas MD. 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 Smoking:none Alcohol:none [...] so stopped as soon as return to [place]. Monitoring of PSA continues. No urinary sx [...] stop this combo when he returned to [place]. Regino not see dates on this. I [...] the radiation therapy/prostate cancer Rama Ramos MSN, MANAGER ADMINISTRATION, INTELLIGENCE OFFICER-C Nurse Practitioner Radiation Oncology documented in this encounter Plan of Treatment Upcoming Encounters Date Type Department Care Team (Late st Contact Info) Description 01/24/2024 2:00 PM EST Office Visit Dermatology at [place] [address] [place] [address] Prisca Hughes MD [facility] DR PHOEBE [place] [address] 02/07/2024 1:30 PM EST Office Visit Hematology/Oncology at [address] [phone] Harjinder Snyder MD [facility] HEMATOLOGY [place] [address] Bisi Cheng APRN [facility] [place] [address] documented as of this encounter Visit Diagnoses Diagnosis Malignant neoplasm of prostate- Primary documented in this encounter Care Teams Alcohol Rubber Relationship Specialty Start Date End Date Celio Sanders MD [address] [place] [address] PCP - General Internal Medicine 05/19/16 documented as of this encounter
--- OUTSIDE RECORDS SUMMARY | 2024-01-19 16:13 | XMS_ITS | Encounter Summary ---
Author Organization [facility] Address [facility] [place] [address] Care Team Providers Care Pattern Maker Programer Name Role Phone Celio Sanders MD Primary Care Provider [phone] Encounter Details Date Type Department Care Team (Late Contact Info) Description 02/11/2023 Telephone Hematology/Oncology at [address] [phone] Hanny Laureano Social History Tobacco [...] EST Office Visit Dermatology at [facility] [address] [place] [address] [facility] DR [place] [address] 02/07/2024 1:30 PM EST Office Visit Hematology/Oncology at [address] [phone] [facility] [place] [address] [facility] [place] [place] [address] documented as of this encounter Visit Diagnoses Not on filedocumented in this encounter Care Teams Pattern Maker Programer Relationship Specialty Start Date End Date Celio Sanders MD [address] [place] [address] PCP - General Internal Medicine 05/19/16 documented as of this encounter
--- OUTSIDE RECORDS SUMMARY | 2024-01-19 16:13 | XMS_ITS | Encounter Summary ---
Author Organization [facility] Address [facility] [place] [address] Care Team Providers Care Horse Race Timer Name Role Phone Celio Sanders MD Primary Care Provider [phone] Encounter Details Date Type Department Care Team (Late st Contact Info) Description 02/22/2023 Telephone Hematology/Oncology at [address] [phone] Harjinder Snyder MD [facility] [place] [address] Social History Tobacco Use Types Packs/Day Years Used Date Smoking Tobacco: Never Smokeless Tobacco: Never Alcohol Use Standard Drinks/Week Comments Not Currently 0 (1 standard drink = 0.6 oz pur e alcohol) beer and wine twice a month [facility] Utilities Answer Date Recorded In the past 12 months has [email or web address], gas, oil, or water [employer] threatened to shut off services in your [...] [facility] [address] [address] Prisca Hughes MD [facility] [address] [place] [address] 02/07/2024 1:30 PM EST Office Visit Hematology/Oncology at [address] [phone] Harjinder Snyder MD [facility] [place] [address] Bisi Cheng APRN [facility] [place] [address] documented as of this encounter Visit Diagnoses Diagnosis Prostate cancer metastatic to intrapelvic lymph node documented in this encounter Care Teams Horse Race Timer Relationship Specialty Start Date End Date Celio Sanders MD [address] [place] [address] PCP - General Internal Medicine 05/19/16 documented as of this encounter
--- OUTSIDE RECORDS SUMMARY | 2024-01-19 16:13 | XMS_ITS | Encounter Summary ---
Author Organization [facility] Address [facility] [place] [address] Care Team Providers Care Fire Services Plumber Name Role Phone Celio Sanders MD Primary Care Provider [phone] Encounter Details Date Type Department Care Team (Late st Contact Info) Description 02/23/2023 Telephone Hematology/Oncology at [address] [phone] Harjinder Snyder MD [facility] [address] HEMATOLOGY [place] [address] Social History Tobacco Use Types Packs/Day Years Used Date Smoking Tobacco: Never Smokeless Tobacco: Never Alcohol Use Standard Drinks/Week Comments Not Currently 0 (1 standard drink = 0.6 oz pur e alcohol) beer and wine twice a month [facility] Utilities Answer Date Recorded In the past 12 months has [email or web address], gas, oil, or water [facility] threatened to shut off services in your [...] [facility] [address] [place] [address] Prisca Hughes MD [facility] DR PHOEBE [place] [address] 02/07/2024 1:30 PM EST Office Visit Hematology/Oncology at [address] [phone] Harjinder Snyder MD [facility] DR HEMATOLOGY [place] [address] Bisi Cheng APRN [facility] [place] [address] documented as of this encounter Visit Diagnoses Diagnosis Prostate cancer metastatic to intrapelvic lymph node documented in this encounter Care Teams Fire Services Plumber Relationship Specialty Start Date End Date Celio Sanders MD [address] [place] [address] PCP - General Internal Medicine 05/19/16 documented as of this encounter
--- OUTSIDE RECORDS SUMMARY | 2024-01-19 16:14 | XMS_ITS | Encounter Summary ---
[place] [address] Care Team Providers Care Corridor Redevelopment Manager Name Role Phone Celio Sanders MD Primary Care Provider [phone] Reason for Visit * Reason Comments Chemotherapy Lupron * Treatment/Therapy Plan Authorization (Routine) - Closed Specialty Diagnoses / Procedures Referred By Contac t Referred To Contact Diagnoses Prostate cancer metastatic to intrapelvic lymph node Gael Anderson MD [address] [place] [address] [facility] Hem Onc Office [address] [place] [phone] Referral ID Status Reason Start Date Expiration Date Visits Re quested Visits Authorized [id number] Closed 11/15/2017 11/15/2018 1 1 Encounter Details Date Type Department Care Team (Late st Contact Info) Description 08/18/2018 12:00 PM EDT Infusion Hematology Oncology at [address] [phone] Prostate cancer metastatic to intrapelvic [...] PM EST Office Visit Dermatology at [address] [place] [address] Prisca Hughes MD [facility] DR PHOEBE IBARRA[place] [address] 02/07/2024 1:30 PM EST Office Visit Hematology/Oncology at [address] [phone] Harjinder Snyder MD [facility] DR HEMATOLOGY [place] [address] Bisi Cheng APRN [facility] [place] [address] documented as of this encounter Visit Diagnoses [...] Gluteal documented in this encounter Care Teams Corridor Redevelopment Manager Relationship Specialty Start Date End Date Celio Sanders MD [address] [place] [address] PCP - General Internal Medicine 05/19/16 documented as of this encounter
--- OUTSIDE RECORDS SUMMARY | 2024-01-19 16:14 | XMS_ITS | Encounter Summary ---
[place] [address] Care Team Providers Care Meat Carrier Name Role Phone Celio Sanders MD Primary Care Provider [phone] Reason for Visit * Reason Comments Other lupron 22.5 mg * Treatment/Therapy Plan Authorization (Routine) - Closed Specialty Diagnoses / Procedures Referred By Contac t Referred To Contact Diagnoses Prostate cancer metastatic to intrapelvic lymph node Gael Anderson MD [address] [place] [address] [facility] Hem Onc Office [address] [place] [phone] Referral ID Status Reason Start Date Expiration Date Visits Re quested Visits Authorized [id number] Closed 11/15/2017 11/15/2018 1 1 Encounter Details Date Type Department Care Team (Late st Contact Info) Description 05/04/2019 11:30 AM EST Infusion Hematology Oncology at [address] [phone] Prostate cancer metastatic to intrapelvic [...] 2:00 PM EST Office Visit Dermatology at [address] [phone] Prisca Hughes MD [facility] [place] [address] 02/07/2024 1:30 PM EST Office Visit Hematology/Oncology at [address] [phone] Harjinder Snyder MD [facility] [place] [address] Bisi Cheng APRN [facility] [place] [address] documented as of this encounter Visit Diagnoses [...] Gluteal documented in this encounter Care Teams Meat Carrier Relationship Specialty Start Date End Date Celio Sanders MD [address] [place] [address] PCP - General Internal Medicine 05/19/16 documented as of this encounter
--- OUTSIDE RECORDS SUMMARY | 2024-01-19 16:14 | XMS_ITS | Encounter Summary ---
[place] [address] Care Team Providers Care Cattle Dipper Name Role Phone Celio Sanders MD Primary Care Provider [phone] Reason for Visit * Reason Onset Date Comments Prior Authorization 08/08/2017 NO AUTH REQU IRED FOR PSYI Encounter Details Date Type Department Care Team (Late st Contact Info) Description 08/08/2017 [place] [phone] Edson Ferguson Prior Authorization (NO AUTH REQUIRED [...] 2:00 PM EST Office Visit Dermatology at [facility] [address] [place] [address] Prisca Hughes MD [facility] DR [place] [address] 02/07/2024 1:30 PM EST Office Visit Hematology/Oncology at [address] [phone] Harjinder Snyder MD [facility] H[place]ATOLOGY [place] [address] Bisi Cheng APRN [facility] [place] [address] documented as of this encounter Visit Diagnoses Not on filedocumented in this encounter Care Teams Cattle Dipper Relationship Specialty Start Date End Date Celio Sanders MD [address] [place] [address] PCP - General Internal Medicine 05/19/16 documented as of this encounter
--- OUTSIDE RECORDS SUMMARY | 2024-01-19 16:14 | XMS_ITS | Encounter Summary ---
Author Organization [facility] [place] [address] Care Team Providers Care Lymphedema Therapist Name Role Phone Celio Sanders MD Primary Care Provider [phone] Reason for Visit * Reason Comments Prostate Cancer Encounter Details Date Type Department Care Team (Late st Contact Info) Description 11/15/2017 2:00 PM EDT Office Visit Hematology/Oncology at [address] [phone] Gael Anderson MD [address] [place] [phone] Prostate cancer metastatic to intrapelvic lymph node [...] on prostate cancer. [place] initiated abiraterone 250 mg daily with low-fat [...] a retired used to work for a [employer] company. He has 2 children. Lives at home with his . Social History Social History ??? Marital status: Spouse name: N/A ??? Number of children: N/A ??? Years of education: N/A Occupational History ??? 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 A - Prostatic core needle biopsy, right lateral base: ? 1. Adenocarcinoma, grade group 3, [place] grade 4+3, ?involving 95% of the biopsy core. ? 2. Perineural invasion identified. B - Prostatic core needle biopsy, right medial base: ? 1. Adenocarcinoma, grade group 3, [place] grade 4+3, ?involving 95% of the biopsy core. ? 2. Perineural invasion identified. C - Prostatic core needle biopsy, right mid lateral: ? Adenocarcinoma, grade group 4, [place] grade 4+4, ? involving 90% of the biopsy core. D - Prostatic core needle biopsy, right mid medial: ? 1. Adenocarcinoma, grade group 4, [place] grade 4+4, ?involving 40% of the biopsy [...] [facility] [address] [place] [address] Prisca Hughes MD [facility] [address] PHOEBE [place] [address] 02/07/2024 1:30 PM EST Office Visit Hematology/Oncology at [address] [phone] Harjinder Snyder MD [facility] DR HEMATOLOGY [place] [address] Bisi Cheng APRN [facility] [place] [address] documented as of this encounter Visit Diagnoses Diagnosis Prostate cancer metastatic to intrapelvic lymph node documented in this encounter Care Teams Lymphedema Therapist Relationship Specialty Start Date End Date Celio Sanders MD [address] [place] [address] PCP - General Internal Medicine 05/19/16 documented as of this encounter
--- OUTSIDE RECORDS SUMMARY | 2024-01-19 16:14 | XMS_ITS | Encounter Summary ---
[place] [address] Care Team Providers Care Chief Wellness Officer Name Role Phone Celio Sanders MD Primary Care Provider [phone] Reason for Visit * Reason Comments Injections Lupron * Treatment/Therapy Plan Authorization (Routine) - Closed Specialty Diagnoses / Procedures Referred By Contac t Referred To Contact Diagnoses Prostate cancer metastatic to intrapelvic lymph node Gael Anderson MD [address] [place] [address] [facility] Hem Onc Office [address] [place] [phone] Referral ID Status Reason Start Date Expiration Date Visits Re quested Visits Authorized [id number] Closed 11/15/2017 11/15/2018 1 1 Encounter Details Date Type Department Care Team (Late st Contact Info) Description 11/16/2018 2:30 PM EDT Infusion Hematology Oncology at [address] [phone] Prostate cancer metastatic to intrapelvic [...] PM EST Office Visit Dermatology at [address] [phone] Prisca Hughes MD [facility] DR PHOEBE [place] [address] 02/07/2024 1:30 PM EST Office Visit Hematology/Oncology at [address] [phone] Harjinder Snyder MD [facility] DR HEMATOLOGY [place] [address] Bisi Cheng APRN [facility] [place] [address] documented as of this encounter Visit Diagnoses [...] Gluteal documented in this encounter Care Teams Chief Wellness Officer Relationship Specialty Start Date End Date Celio Sanders MD [address] [place] [address] PCP - General Internal Medicine 05/19/16 documented as of this encounter
--- OUTSIDE RECORDS SUMMARY | 2024-01-19 16:14 | XMS_ITS | Encounter Summary ---
Author Organization [facility] [place] [address] Care Team Providers Care Herbarium Worker Name Role Phone Celio Sanders MD Primary Care Provider [phone] Encounter Details Date Type Department Care Team (Late st Contact Info) Description 05/12/2021 2:23 PM EST Anesthesia [place] [address] Celio Alvarado DO [facility] [place] [address] Unruly Noriega MD [facility] [place] [address] Anesthesia Record Procedure Summary Procedure Name Responsible [...] 1400; median cubital vein (antecubital fossa), right; kyim-eal-ztcepp catheter system; Anatomical Landmarks; US Not Used; [...] Procedure Summary Date: 05/12/21 Room / Location: [facility] ENDO 1 / [facility] END[facility]COPY Anesthesia Start: 1423 Anesthesia Stop: 1509 Procedure: COLONOSCOPY, DIAGNOSTIC (N/A Trunk) Diagnosis: (BRCA gene mutation positive) Surgeons: Nicky Bray MD Responsible Provider: Celio Alvarado DO Anesthesia Type: MAC ASA Status: 2 All Anesthesia Providers: Anesthesiologist: Celio Alvarado DO EXPANDER MACHINE OPERATOR: Tarun Brambila CRNA Vitals Value Taken Time BP 116/60 05/12/21 1530 Temp Pulse Resp SpO2 100 % 05/12/21 1530 Pain Level Patient Location: PACU/[facility] Level of Consciousness: Conscious but Sleepy [...] risks discussed with patient. Plan discussed with EXPANDER MACHINE OPERATOR. Anesthesia Screening documented in this encounter Plan of Treatment Upcoming Encounters Date Type Department Care Team (Late st Contact Info) Description 01/24/2024 2:00 PM EST Office Visit Dermatology at [facility] [address] [place] [address] Prisca Hughes MD [facility] DR [place] [address] 02/07/2024 1:30 PM EST Office Visit Hematology/Oncology at [address] [phone] Harjinder Snyder MD [facility] [place] [address] Bisi Cheng APRN [facility] [place] [place] [address] documented as of this encounter Visit Diagnoses [...] PRN, Starting on Tue05/12/21 at 1425, Until Tue05/12/21 at 1509, Anesthesia Intra-op, Routine Given 05/12/2021 2:25 PM EST 50 mg propofoL (Diprivan) (10 mg/mL) infusion Intravenous, CONTINUOUS PRN, Starting on Tue05/12/21 at 1425, Until Tue05/12/21 at 1509, Anesthesia Intra-op, Routine New Bag 05/12/2021 2:25 PM EST 150 mcg/kg/min 72.45 mL/hr propofoL (Diprivan) 10 mg/mL bolus injection (Anesthesia) Intravenous, PRN, Starting on Tue05/12/21 at 1425, Until Tue05/12/21 at 1509, Anesthesia Intra-op Given 05/12/2021 2:25 PM EST 100 mg documented in this encounter Care Teams Herbarium Worker Relationship Specialty Start Date End Date Celio Sanders MD [address] [place] [address] PCP - General Internal Medicine 05/19/16 documented as of this encounter
--- OUTSIDE RECORDS SUMMARY | 2024-01-19 16:14 | XMS_ITS | Encounter Summary ---
Author Organization [facility] Address [facility] [place] [address] Care Team Providers Care Furniture And Bedding Inspector Name Role Phone Celio Sanders MD Primary Care Provider [phone] Reason for Visit * Reason Comments Genetic Evaluation * Consultation (Routine) - Closed Specialty Diagnoses / Procedures Referred By Contkulwant t Referred To Contact Hematology and Oncology Diagnoses Malignant neoplasm of prostate Remy Barillas MD [facility] [place] [address] St Hem Onc Office [address] [place] [phone] Referral ID Status Reason Start Date Expiration Date V isits Requested Visits Authorized [id number] Closed Consult, Test & Treat 08/18/2018 08/18/2019 1 1 Encounter Details Date Type Department Care Team (Late st Contact Info) Description 03/28/2019 1:30 PM EST Office Visit [place] [address] Eden Copeland, [facility] HEMATOLOGY/[place] [address] Prostate cancer metastatic to intrapelvic lymph node [...] the family. Nain opted for testing with [facility]'s Common Hereditary Cancers Panel, a next generation sequencing panel that simultaneously analyzes 47 genes, including BRCA1 and BRCA2 which could have treatment implications and that contribute to increased risk for cancer. Nain was consented. His blood sample was drawn and sent to [facility]. Testing will take approximately 3 weeks. Nain [...] 2:00 PM EST Office Visit Dermatology at [place] [address] [place] [address] Prisca Hughes MD [facility] [place] [address] 02/07/2024 1:30 PM EST Office Visit Hematology/Oncology at [address] [phone] Harjinder Snyder MD [facility] DR HEMATOLOGY [place] [address] Bisi Cheng APRN [facility] [place] [address] documented as of this encounter Results * Research Venipuncture (03/28/2019 2:42 PM EST) Research Venipuncture Drawn [facility] Blood specimen (specimen) 03/28/2019 2:42 PM EST 03/28/2019 3:44 PM EST Narrative Resulting Agency Comment Spec In Lab Tre Walker MD CHEMISTRY ORDERABLES [facility] [place] [address] documented in this encounter Visit Diagnoses Diagnosis Prostate cancer metastatic to intrapelvic lymph node documented in this encounter Care Teams Furniture And Bedding Inspector Relationship Specialty Start Date End Date Celio Sanders MD [address] [place] [address] PCP - General Internal Medicine 05/19/16 documented as of this encounter
--- OUTSIDE RECORDS SUMMARY | 2024-01-19 16:14 | XMS_ITS | Encounter Summary ---
Author Organization [facility] Address [facility] [place] [address] Care Team Providers Care Network Services Project Manager Name Role Phone Celio Sanders MD Primary Care Provider [phone] Encounter Details Date Type Department Care Team (Late Contact Info) Description 04/27/2019 Ancillary Procedure Radiology Library at [facility] [place] [address] Remy Barillas MD [facility] [place] [address] Social History Tobacco Use Types Packs/Day Years [...] 2:00 PM EST Office Visit Dermatology at [place] [address] [place] [address] Prisca Hughes MD [facility] DR PHOE[place] [address] 02/07/2024 1:30 PM EST Office Visit Hematology/Oncology at [address] [phone] Harjinder Snyder MD [facility] DR HEMATOLOGY [place] [address] Bisi Cheng APRN [facility] [place] [address] documented as of this encounter Procedures Procedure Name Priority Date/Time Associated Diagnosis Comments FILM LIBRARY STORAGE ONLY CT ABDOMEN AND PELVIS Routine 04/27/2019 12:00 AM EST documented in this encounter Results * Film Library- Storage Only CT Abdomen & Pelvis (04/27/2019 12:00 AM EST) Narrative [facility] - 04/30/2019 8:45 AM EST This exam is auto-finalizing. It's purpose is for storage only. Remy Barillas MD IMG FILM LIBRARY ORD ERABLES Performing Organization Address City/State/[facility] Co de Phone Number [place], [place] documented in this encounter Visit Diagnoses Not on filedocumented in this encounter Care Teams Network Services Project Manager Relationship Specialty Start Date End Date Celio Sanders MD [address] [place] [address] PCP - General Internal Medicine 05/19/16 documented as of this encounter
--- OUTSIDE RECORDS SUMMARY | 2024-01-19 16:14 | XMS_ITS | Encounter Summary ---
Author Organization [facility] [place] [address] Care Team Providers Care Manager Of Pmo Name Role Phone Celio Sanders MD Primary Care Provider [phone] Reason for Referral * Surgical (Urgent) - Closed Specialty Diagnoses / Procedures Referred By Tess de la rosa Referred To Contact Gastroenterology Diagnoses BRCA gene mutation positive Remy Barillas MD [facility] [place] [address] [facility] Endoscopy [address] [place] [address] Referral ID Status Reason Start Date Expiration Date Visits Re quested Visits Authorized [id number] Closed 02/03/2021 02/03/2022 1 1 Encounter Details Date Type Department Care Team (Late st Contact Info) Description 02/03/2021 Orders Only Hematology [place] [phone] Remy Barillas MD [facility] [place] [address] BRCA gene mutation positive Social History Tobacco [...] [facility] [address] [place] [address] Prisca Hughes MD [facility] DR PHOE[place] [address] 02/07/2024 1:30 PM EST Office Visit Hematology/Oncology at [address] [phone] Harjinder Snyder MD [facility] DR HEMATOLOGY [place] [address] Bisi Cheng APRN [facility] [place] [address] Scheduled Referrals Name Type Priority Associated Diagnoses Order Schedule REFERRAL TO COLONOSCOPY PROCEDURE Outpatient Referral Routine BRCA gene mutation positive Ordered: 02/03/2021 documented as of this encounter Visit Diagnoses Diagnosis BRCA gene mutation positive documented in this encounter Care Teams Manager Of Pmo Relationship Specialty Start Date End Date Celio Sanders MD [address] [place] [address] PCP - General Internal Medicine 05/19/16 documented as of this encounter
--- OUTSIDE RECORDS SUMMARY | 2024-01-19 16:14 | XMS_ITS | Encounter Summary ---
Author Organization [facility] Address [facility] [place] [address] Care Team Providers Care Rebar Worker Name Role Phone Celio Sanders MD Primary Care Provider Encounter Details Date Type Department Care Team (Late st Contact Info) Description 11/16/2018 1:30 PM EDT Office Visit Hematology/Oncology at [address] [phone] Yeni Gallardo APRN [address] [place] [phone] Prostate cancer metastatic to intrapelvic lymph node [...] encounter Progress Notes * Yeni Gallardo Brianna, TRAFFIC RATE ANALYST - 11/16/2018 1:30 PM EDT Subjective: Patient ID: Nain Mckeon is a 68 y.o. male. Problem List: 1. Prostate cancer, cT2b, N1 A. Presented with hematuria TRUS prostate biopsies 04/2016 - Adenocarcinoma in 5/12 cores (all on right side), T2b, [place] 8 Darlyn-neural invasion present PSA - 47.5 [...] prior to Lupron injection. Yeni Gallardo, MSN, TRAFFIC RATE ANALYST, AOCNP documented in this encounter Plan of Treatment Upcoming Encounters Date Type Department Care Team (Late st Contact Info) Description 01/24/2024 2:00 PM EST Office Visit Dermatology at [facility] [address] [place] [address] Prisca Hughes MD [facility] DR PHOE[place] [address] 02/07/2024 1:30 PM EST Office Visit Hematology/Oncology at [address] [phone] Harjinder Snyder MD [facility] [place] [address] Bisi Cheng APRN [facility] [place] [address] documented as of this encounter Visit Diagnoses Diagnosis Prostate cancer metastatic to intrapelvic lymph node documented in this encounter Care Teams Rebar Worker Relationship Specialty Start Date End Date Celio Sanders MD [address] [place] [address] PCP - General Internal Medicine 05/19/16 documented as of this encounter
--- OUTSIDE RECORDS SUMMARY | 2024-01-19 16:14 | XMS_ITS | Encounter Summary ---
Author Organization [facility] Address [facility] [address] Care Team Providers Care Primer Waterproofing Machine Operator Name Role Phone Celio Sanders MD Primary Care Provider [phone] Encounter Details Date Type Department Care Team (Late st Contact Info) Description 02/09/2021 Telephone [place] [phone] Dori Maharaj Social History Tobacco Use Types [...] - 02/09/2021 12:01 PM EST Nain Mckeon [id number] Diagnosis/Indication: BRCA gene mutation positive 1. Have [...] to patient: You must have a responsible alliance party who will drive you to your procedure, [...] 2:00 PM EST Office Visit Dermatology at [address] [place] [address] Prisca Hughes MD [facility] DR PHOEBE [place] [address] 02/07/2024 1:30 PM EST Office Visit Hematology/Oncology at [address] [phone] Harjinder Snyder MD [facility] HEMATOLOGY [place] [address] Bisi Cheng APRN [facility] [place] [address] documented as of this encounter Visit Diagnoses Not on filedocumented in this encounter Care Teams Primer Waterproofing Machine Operator Relationship Specialty Start Date End Date Tommy, Celio H, MD [address] [place] [address] PCP - General Internal Medicine 05/19/16 documented as of this encounter
--- OUTSIDE RECORDS SUMMARY | 2024-01-19 16:14 | XMS_ITS | Encounter Summary ---
Author Organization Formerly [facility] Address [facility] [place] [address] Care Team Providers Care Steel Plate Caulker Name Role Phone Celio Sanders MD Primary Care Provider [phone] Reason for Visit * Auth/Cert Specialty Diagnoses / Procedures Referred By Contac t Referred To Contact Diagnoses Bipolar disorder, current episode manic without psychotic features, moderate BIPOLAR Procedures PSYI Referral ID Status Reason Start Date Expiration Date Visits Re quested Visits Authorized [id number] 1 1 Encounter Details Date Type Department Care Team (Latest Contact Info) Description 08/06/2017 8:04 PM EDT - 08/15/2017 12:39 PM EDT Hospital Encounter 2 [facility] [place] [id number] David Keen MD [facility] [place] [address] Bipolar II disorder Discharge Disposition: Home Social [...] Mojgan Lipscomb Patient Age: 66 y.o. Language: Hungarian Race: White Ethnicity: Not nor Admit date: [...] made the following appointments for you. : [address] [address] Phone: Fax: Ila Hicks APRN: August 23 at 2:30pm Katlyn Brown: September 02 at 1:00pm Mental Health- [facility] [address], [address] [place] [address] Phone: Fax: Dr. David Fleming: August 19 at 12:00pm Inpatient Provider Contact Information: For questions regarding this document (including laboratory or other studies) or issues relating tothis hospitalization, please contact your patient health care coordinator, GRAEME FORD RN, through the [facility] Night [facility] . Issues after hours and on weekends will be handled by the psychiatryresident on- call who can be reached through the [facility]. Advance Care Plan The patient has an appointed surrogate decision maker: no Name of surrogate decision maker: na The patient has medical advance directives: no The patient has psychiatric advance directives: no All eleven elements of the Transition Record have been reviewed with the patient. Future Appointments and Orders Future Appointments Provider Department Dept Phone 08/23/2017 3:00 PM Gael Anderson MD Hematology/Oncology at [facility] [phone] 08/25/2017 10:30 AM Maria R Mora APRN Radiation Oncology at [facility] [phone] 08/25/2017 11:00 AM STJ INFUSION, ROOM Hematology Oncology at [facility] [phone] Reason for Hospitalization: safety, stabilization and medication management History of Presentation: As per the 08/06/2017 admission H&P: Mojgan is a 66yo male with a history of bipolar disorder and prostate cancer who arrived at [facility] by taxi from [facility] after spending the week in [facility] for manic symptoms and being [...] while he and hiswife were wintering in [place], an oncologist recommended that he try the [...] flight of ideas. When they returned from [place], thepatient's drove and she was secretly glad he lost his car keys because of his impulsivity. ?? The patient's went to [place] for a bridal shower, and while the patient was alone he feltscared at home and checked himself into [facility]. He sought voluntary transfer to a psychiatric facility but was unsuccessful and was eventually discharged Tuesday. Tuesday night he was still afraid and paranoid, and after a discussion with his psychiatrist he took a taxi to [facility] to be admitted to out psych unit. [...] Vit Lvls: Lab Results Component Value Date [id number] 744 08/06/2017 SFOLATE >20.0 08/06/2017 UA: No [...] home Primary Care Physician: Celio Sanders MD [phone] Special Physician Instructions: Special Instructions Provided to [...] any other decline in your overall condition. [facility] Emergency Services: [phone] [facility] Central Access Services: [phone] [facility] Main Line: [phone] Activity level: no restrictions from psychiatry Diet: [...] Provider Contact Information: Emergency Services (Crisis Line): [phone] [facility]: [phone] [facility] Main Line: [phone] Click refresh button immediately prior to signing [...] coordinating discharge for this patient and included pudr-og-tfxxbpsyegots and exam, explanation of after visit instructions and medications to the patient and necessary caregivers, documentation, and prescription management. documented in this encounter Discharge Instructions * Discharge Instructions* Graeme Ford RN - 08/15/2017 9:59 AM EDT We have made the following appointments for you. : [facility] [address] [place] [address] Phone: Fax: Ila Hicks APRN: August 23 at 2:30pm Katlyn Brown: September 02 at 1:00pm Mental Health- [facility] [address], [address] [place] [address] Phone: Fax: Dr. David Fleming: August 19 at 12:00pm Inpatient Provider Contact Information: For questions regarding this document (including laboratory or other studies) or issues relating tothis hospitalization, please contact your patient health care coordinator, GRAEME FORD RN, through the [facility] . Issues after hours and on weekends will be handled by the psychiatryresident on- call who can be reached through the [facility]. Advance Care Plan The patient has an [...] Vit Lvls: Lab Results Component Value Date [id number] 744 08/06/2017 SFOLATE >20.0 08/06/2017 UA: No [...] home Primary Care Physician: Celio Sanders MD [phone] Special Physician Instructions: Special Instructions Provided to [...] any other decline in your overall condition. [facility] Emergency Services: [phone] [facility] Central Access Services: [phone] [facility] Main Line: [phone] Activity level: no restrictions from psychiatry Diet: [...] hyperverbal and spontaneous ?? Language: fluent in japanese ?? Mood: I feel pretty good. ?? [...] functioning ?? Insight: fair ?? Judgment: fair [place] Suicide Risk Scale (most recently completed): Suicidal [...] INR Thyroid: No results found for: TSH, W6TSSYT, TT4 Lipids and HgbA1C: Lab Results Component Value Date CHLPL 169 08/10/2017 HDL 49 08/10/2017 CHOLHDL 3.4 08/10/2017 LDLCHOL 84 08/10/2017 TRIG 182 08/10/2017 Lab Results Component Value Date HA1C 5.6 08/10/2017 Vit Lvls: No results found for: [id number], SFOLATE UA: No results found for: GLUCOSEU, [...] disorder and prostate cancer who presents to [facility] with a manic episode in the setting [...] coordinating discharge for this patient and included uvwt-ib-nivlzamwnnlcs and exam, explanation of after visit instructions [...] goal to rest, relax, go for walk, moravian, finish pg. 3-4, watch the georgian open. Plan to invite to all groups. [...] hyperverbal and spontaneous ?? Language: fluent in japanese ?? Mood: Doing better. ?? Affect: bright, [...] functioning ?? Insight: fair ?? Judgment: fair [place] Suicide Risk Scale (most recently completed): Suicidal [...] INR Thyroid: No results found for: TSH, U5FFMXG, TT4 Lipids and HgbA1C: Lab Results Component Value Date CHLPL 169 08/10/2017 HDL 49 08/10/2017 CHOLHDL 3.4 08/10/2017 LDLCHOL 84 08/10/2017 TRIG 182 08/10/2017 Lab Results Component Value Date HA1C 5.6 08/10/2017 Vit Lvls: No results found for: HQDPWRDD13, SFOLATE UA: No results found for: GLUCOSEU, [...] disorder and prostate cancer who presents to [facility] with a manic episode in the setting [...] hyperverbal and spontaneous ?? Language: fluent in japanese ?? Mood: relaxed ?? Affect: constricted ?? [...] functioning ?? Insight: fair ?? Judgment: fair [place] Suicide Risk Scale (most recently completed): Suicidal [...] Vit Lvls: Lab Results Component Value Date [id number] 744 08/06/2017 SFOLATE >20.0 08/06/2017 UA: Lab [...] disorder and prostate cancer who presents to [facility] with a manic episode in the setting [...] hyperverbal and spontaneous ?? Language: fluent in japanese ?? Mood: Doing better. ?? Affect: expansive [...] functioning ?? Insight: fair ?? Judgment: fair [place] Suicide Risk Scale (most recently completed): Suicidal [...] Vit Lvls: Lab Results Component Value Date [id number] 744 08/06/2017 SFOLATE >20.0 08/06/2017 UA: Lab [...] disorder and prostate cancer who presents to [facility] with a manic episode in the setting [...] that peer was asking about . When internal communications writer shared Importance of pt.'s completing patient [...] hyperverbal and spontaneous ?? Language: fluent in japanese ?? Mood: Doing better. I'd like to [...] functioning ?? Insight: fair ?? Judgment: fair [place] Suicide Risk Scale (most recently completed): Suicidal [...] Vit Lvls: Lab Results Component Value Date [id number] 744 08/06/2017 SFOLATE >20.0 08/06/2017 UA: Lab [...] disorder and prostate cancer who presents to [facility] with a manic episode in the setting [...] spoken with him since his admission. This internal communications writer suggested Yaneth visit with Mojgan today to get a better sense of where he is currently at. She agreed to this visit, but only if this internal communications writer would be present for the entire visit as she has fears that Mojgan will start yelling or swearing at her again. This internal communications writer agreed to this and will plan [...] 66 year old MWM, who presents at [facility] to address his current manic episode. Please refer to admit note for details. 2. Family Constellation, Pertinent History: Patient is one of 2 children born and raised in family of origin. Parents are , Mother at age 82 and Father at age 83. Sister Valery age 66 lives in [place]. Patient reports that he has not had contact with her for many years. Patient was born and raised in [place] and described childhood as strange (chart notes indicate a dysfunctional childhood). Patientreports that family lived in [place] but spend every weekend at the family farm in [place]. Little to no extended family available or involved. Patient left home at age 16 to attend [employer]. Patient has been to Yaneth age 64 for 45 years, 2 children Doris age 40 in [place] and Edson age 39 [facility]. Patient reports that ongoing conflict with [...] including spiritual support: Dr. Fleming, bere in [facility], practicing Advent and Lutheran. 6. 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 Language: fluent in japanese ?? Mood: Anxious. ?? Affect: irritable, expansive [...] functioning ?? Insight: limited ?? Judgment: limited [place] Suicide Risk Scale (most recently completed): Suicidal [...] Vit Lvls: Lab Results Component Value Date [id number] 744 08/06/2017 SFOLATE >20.0 08/06/2017 UA: Lab [...] disorder and prostate cancer who presents to [facility] with a manic episode in the setting [...] hyperverbal and spontaneous ?? Language: fluent in japanese ?? Mood: I need more rest. ?? [...] functioning ?? Insight: limited ?? Judgment: limited [place] Suicide Risk Scale (most recently completed): Suicidal [...] Vit Lvls: Lab Results Component Value Date [id number] 744 08/06/2017 SFOLATE >20.0 08/06/2017 UA: Lab [...] disorder and prostate cancer who presents to [facility] with a manic episode in the setting [...] recently to 150mg when pt was at [facility]. Dr fleming increased Clonopin to [...] resistant prostate cancer (CRPC). 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 Clinical trial information: [id number]. Thus, it seems feasible to continue it [...] finding difficulty, occasionally loud ?? Language: fluent japanese non profane ?? Mood: Pissed off ?? [...] appropriate ?? Insight: poor ?? 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 Male presents to [facility] with complaint that I am manic. Interval History: (1,1,4) Mojgan is a 66yo male with a history of bipolar disorder and prostate cancer who arrived at [facility] by taxi from [facility] after spending the week in [facility] for manic symptoms and being [...] while he and hiswife were wintering in [place], an oncologist recommended that he try the combination of Zytiga and Prednisone for his prostate cancer. Since then he has been acutely manic. His baryan consists of being intrusive, standing only inches from people's faces when talking to them, yelling and swearing at his family, reckless driving, withdrawing $5,000 from the family bank account, irritability, losing car keys and credit cards, being talkative, getting little sleep, being easily distractible, eating more, and having flight of ideas. When they returned from [place], thepatient's drove and she was secretly glad he lost his car keys because of his impulsivity. The patient's went to [place] for a bridal shower, and while the patient was alone he feltscared at home and checked himself into [facility]. He sought voluntary transfer to a psychiatric facility but was unsuccessful and was eventually discharged Tuesday. Tuesday night he was still afraid and paranoid, and after a discussion with his psychiatrist he took a taxi to [facility] to be admitted to out psych unit. [...] disorder Past hospitalization and location: 2003 - [facility] for the depressive part of bipolar disorder [...] GI no nausea and no abdominal pain /NOTARY PUBLIC (include LMP if applicable) No polyuria and No dysuria MSK No muscle weakness and No myalgias SKIN No itching and No sores NEURO no seizures PSYCH See above. ENDO No temperature intolerance HEME/LYMPH No edema ALL/IMMUNO No symptoms of Sinustis Physical Exam: Vitals ED from 08/05/2017 in Emergency Department [facility] Weight 80.3 kg (177 lb) Height [...] loud and pressured ?? Language: fluent in japanese ?? Mood: better than I was this [...] Negative mcL Appearance UA Clear Clear Spec [place] UA 1.028 1.002 - 1.030 Color UA [...] bipolar disorder and prostate cancer who presentsto [facility] with a manic episode in the setting [...] started taking Zytiga and Prednisone. Records from [facility] indicate the patient was taking [...] and alliance: follows advice of his psychiatrist [place] Suicide Risk Scale (most recently completed) Suicidal [...] a 66 y.o. patient followed client of [facility] with history of bipolar affective [...] with his psychiatrist, Dr. David fleming at [facility] -Consult heme/onc for guidance regarding [...] ??Volume appropriate for setting. ?? Language: Appropriate, Hungarian-speaking ?? Mood: Great ?? Affect: Lively and [...] Vit Lvls: Lab Results Component Value Date [id number] 744 08/06/2017 SFOLATE >20.0 08/06/2017 UA: No [...] outpatient f/up with new heme onc in [facility] on 08/23. ? #Other medical issues [...] Outcome: Ongoing (Interventions Implemented as Appropriate) 08/14/17 0700 Coping/Psychosocial Plan Of Care Reviewed With patient [...] peers. He attended groups. He attended the [employer] service in the morning. PLAN MOVING FORWARD: [...] ??Volume appropriate for setting. ?? Language: Appropriate, Hungarian-speaking ?? Mood: Feel great ?? Affect: Lively [...] convince her to be a better . [place] Suicide Risk Scale: Suicide Screening Suicidal Thoughts: [...] Vit Lvls: Lab Results Component Value Date [id number] 744 08/06/2017 SFOLATE >20.0 08/06/2017 UA: No [...] outpatient f/up with new heme onc in [facility] on 08/23. ? #Other medical issues [...] Appropriate) 08/11/17 1030 Interdisciplinary Rounds/Family Conf Participants manager case management;nursing;patient;social work/services;physician Problem: Manic Behavior/Episode (Adult) Goal: Mood [...] Volume appropriate for setting. ?? Language: Appropriate, Hungarian-speaking ?? Mood: Not good ?? Affect: Non-congruent. [...] is over the hump ?? Judgment: Limited [place] Suicide Risk Scale: Suicide Screening Suicidal Thoughts: [...] Vit Lvls: Lab Results Component Value Date [id number] 744 08/06/2017 SFOLATE >20.0 08/06/2017 UA: No [...] outpatient f/up with new heme onc in [facility] on 08/23. -Flomax 10mg QHS ? [...] prosody. Volume appropriate for setting. Language: Appropriate, Hungarian-speaking Mood: Not good Affect: Non-congruent. Seems lively [...] he is over the hump Judgment: Limited [place] Suicide Risk Scale: Suicide Screening Suicidal Thoughts: [...] Vit Lvls: Lab Results Component Value Date [id number] 744 08/06/2017 SFOLATE >20.0 08/06/2017 UA: No [...] outpatient f/up with new heme onc in [facility] on 08/23. -Flomax 10mg QHS ?? 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 -Patient states that [...] prosody. Volume appropriate for setting. Language: Appropriate, Hungarian-speaking Mood: I need to get more rest [...] that thoughts are slowing down. Judgment: Limited [place] Suicide Risk Scale: Suicide Screening Suicidal Thoughts: [...] Vit Lvls: Lab Results Component Value Date [id number] 744 08/06/2017 SFOLATE >20.0 08/06/2017 UA: Lab [...] outpatient f/up with new heme onc in [facility] on 08/23. #Other medical issues -Hypothyroidism: [...] Outcome: Ongoing (Interventions Implemented as Appropriate) 08/08/17 1089 Coping/Psychosocial Plan Of Care Reviewed With patient [...] home and have his dog as a plasma processor. Understands some of his 's concerns and [...] independent Surveillance [facility]continuous indirect monitoring[facility] Patient-specific fall prevention interventions for sensory [...] y.o. year old male (1950) presenting to [address] [place] [address] for treatment with Bipolar disorder, current episode [...] Current Mental Health Prescriber: David Fleming of [facility] Current Therapist: David Fleming of [facility] PCP: Celio Sanders MD Hospitalizations Within the Past 30 Days: none known PERTINENT INFO FROM H & P: Mojgan is a 66yo male with a history of bipolar disorder and prostate cancer who arrived at [facility] by taxi from [facility] after spending the week in [facility] for manic symptoms and being [...] while he and his were wintering in [place], an oncologist recommended that he try the combination of Zytiga and Prednisone for his prostatecancer. Since then he has been acutely manic. ADVANCE DIRECTIVES: Information provided as needed HEALTH /PRESCRIPTION COVERAGE: Current Effective Coverage: Payor/Plan Subscr Sex Relation Sub. Ins. ID Effective Group Num 1. MEDICARE - [place]* MOJGAN LIPSCOMB 1950 Male Self [id number] 08/05/[address] - MOJGAN LIPSCOMB 1950 Male [id number] 05/12/16 [address] Prescription Coverage: Confirmed Preferred Pharmacy: [address] [address] HOME ENVIRONMENT / SOCIAL & FAMILY SUPPORTS/COMMUNITY RESOURCES:(living situation, family constellation, Caregivers, current use & knowledge of community resources, etc.) Extended Emergency Contact Information Primary Emergency Contact: Yaneth Lipscomb Address: [address] [place] [address] [facility] Relation: Spouse PRIMARY CARE PHYSICIAN: Celio Sanders MD [address] / [facility] [address] MENTAL HEALTH PRESCRIBER: Dr. David Fleming Current Decision-Making Capacity: (Level of Alertness/Orientation, dementia/ cognitive deficit, if patient is a minor - assess parent/guardian, etc.) Able to consent to or refuse care. CURRENT PATIENT & FAMILY EDUCATION, COPING NEEDS: (Address patient/family satisfaction with care to date, understanding of current status and plan of care, need for family meeting, need for bindery leadperson, etc.) Education regarding effective coping skills, medication [...] needed at D/C to [address] [facility] [address]? None anticipated Rehab/SNF: no New community resources referrals needed? Refer back to current outpatient mental health provider Other: PLAN: PCM will continue to monitor progress, follow for continuity of care and assist with transition of care planning while hospitalized. GRAEME FORD RN PAGER: [phone] * Plan of Care - Graeme Ford [...] understanding of illness 2 Work with Patient Blanket Cutting Machine Operator to create and implement aftercare plan 3 [...] David Keen MD 08/08/17 NURSING 08/08/17 PATIENT FIBRE OPTIC CABLE SPLICER Graeme Ford RN 08/08/17 THERAPIST 08/08/17 DIMENSION STONE QUARRY SUPERVISOR LISA Calixto 08/08/17 * Plan of Care [...] and would not take it at all. machinist 2nd shift made aware. Denies SI/HI. No safety concerns. [...] EVALUATION NOTE: OUTCOME SUMMARY: Pt admitted to [facility] from ED. Pt reports that he had manic symptoms and went to [facility]. He reports thathe had slurred [...] which heightened during their road trip to [place] to meet their son in mid June. [...] EST Office Visit Dermatology at [facility] [address] [place] [address] Prisca Hughes MD [facility] [address] [place] [address] 02/07/2024 1:30 PM EST Office Visit Hematology/Oncology at [address] [phone] Harjinder Snyder MD [facility] HEMATOLOGY [place] [address] Bisi Cheng APRN [facility] [place] [address] documented as of this encounter Procedures Procedure [...] Glucose Fasting 101(H) 65 - 99 mg/dL [facility] Comment: ?Fasting* Glucose Interpretive Criteria [...] of Diabetes Mellitus, Position Statement from the [place] Diabetes Association. ??Diabetes Care, Volume 33, Supplement 1, Mar 2009 Blood specimen (specimen) 08/10/2017 10:45 AM EDT 08/10/2017 10:54 AM EDT Narrative Resulting Agency Comment Spec In Lab David Keen MD CHEMISTRY ORDERABLES [facility] [place] [address] * Lipid Panel (08/10/2017 10:45 AM EDT) Cholesterol, Total 169 mg/dL [facility] Comment: Lower Risk: <200 mg/dL Average Risk: 200-239 mg/dL Higher Risk: >rd=477 mg/dL Triglyceride 182 mg/dL [facility] Comment: Average Risk/Lower Risk: <150 mg/dL Borderline High Risk: 150-199 mg/dL High Risk: 200-499 mg/dL Very High Risk: >gj=529 mg/dL HDL Cholesterol 49 mg/dL [facility] Comment: Males: ?? Higher Risk: <40 mg/dL Females: ?? HIgher Risk: <50 mg/dL LDL Cholesterol 84 mg/dL [facility] Comment: Lowest Risk: <100 mg/dL Lower Risk: 100-129 mg/dL Borderline High Risk: 130-159 mg/dL High Risk: 160-189 mg/dL Very High Risk: >dh=518 mg/dL Cholesterol/HDL Ratio 3.4 ratio [facility] Lipid Interpretation See Note [facility] Comment: Lipid management should be guided by a patient? s ASCVD risk, goals and preferences. ACC/AHA Guidelines recommend high intensity statin if clinical ASCVD or LDL greater than or equal to 190 mg/dL. http://tinyurl.com/JYD-OUW-Wsrrbjblt Adults aged 40-75 with LDL 70-189 mg/dL should have their 10 year ASCVD risk estimated with the ACC/AHA ASCVD risk paperboard boxes estimator http://tools.acc.org/DKMZA-Tdxh-Nwtjsgehp/ Statin should be discussed if risk greater [...] In Lab David Keen MD CHEMISTRY ORDERABLES [facility] [place] [address] * Hemoglobin A1c (08/10/2017 10:45 AM EDT) Hemoglobin A1c 5.6 4.3 - 5.6 % [facility] Comment: Reference Range: 4.3 - [...] Mellitus, Diabetes Care 2013; 36: Suppl. 1, S67-04 Estimated Average Glucose 114 mg/dL [facility] Comment: eAG equivalents for HbA1c [...] into estimated average glucose values. ??Diabetes Care 2008:31(8):3918-1569. Blood specimen (specimen) 08/10/2017 10:45 AM EDT 08/10/2017 10:54 AM EDT Narrative Resulting Agency Comment Spec In Lab David Keen MD CHEMISTRY ORDERABLES Performing Organization Address [facility] de Phone Number [facility] [place] [address] * EKG 12 Lead (08/07/2017 10:24 AM EDT) Ventricular rate 79 BPM MUSE SYSTEM Atrial Rate 79 BPM MUSE SYSTEM P-R Interval 136 ms MUSE SYSTEM QRS Duration 92 ms MUSE SYSTEM Q-T Interval 376 ms MUSE SYSTEM QTC Calculated (Bezet) 431 ms MUSE SYSTEM Calculated P [place] 44 degrees MUSE SYSTEM Calculated R [place] 35 degrees MUSE SYSTEM Calculated T [place] 29 degrees MUSE SYSTEM INTERPRETATION Normal sinus rhythm Inferior infarct , age undetermined Abnormal ECG When compared with ECG of 11-APR-2003 19:43, Inferior infarct is now Present Confirmed by MD Andres, Aakash Marvin ([id number]) on 08/07/2017 12:19:01 PM MUSE SYSTEM 08/07/2017 10:2 4 AM EDT 08/07/2017 12:19 PM EDT David Keen MD ECG ORDERABLES Performing Organization Address [facility] Co de Phone Number MUSE SYSTEM [...] PRN, Starting on 08/06/17 at 2219, Until Tue08/15/17 at 1440, [...] on 08/07/17 at 0600, Until Discontinued, Routine Given 08/15/2017 5:27 AM EDT 75 mcg Given 08/14/2017 8:44 AM EDT 75 mcg Given 08/13/2017 6:26 AM EDT 75 mcg melatonin tablet 3 mg 3 mg, Oral, NIGHTLY, First dose on 08/06/17 at 2245, Until Discontinued, Routine Given 08/07/2017 8:45 PM EDT 3 mg Given 08/06/2017 10:27 PM EDT 3 mg OLANZapine (ZyPREXA) tablet 10 mg 10 mg, Oral, NIGHTLY, First dose on 08/06/17 [...] mg, Oral, EVERY EVENING, First dose on Tue08/06/17 at 2130, Until Discontinued 1701 (Given - Provider: Azucena Silvestre RN) 1739 (Given - Provider: Azucena Silvestre RN) clonazePAM [...] on 08/07/17 at 0600, Until Discontinued, Routine 06 (Given - Provider: Nanda Bonilla RN) 0600 [...] First line as needed for sleep, Routine 2315 (Given - Provider: Nesha Bond RN) OLANZapine zydis (ZyPREXA) disintegrating tablet 5 mg 5 mg, Oral, 2 TIMES DAILY PRN, Starting on Tue08/08/17 at 1346, Until Tue08/15/17 at 1440, Agitation, Routine polyethylene glycol (MIRALAX) packet 17 g 17 g, Oral, DAILY PRN, Starting on 08/06/17 at 2218, [...] RN) documented in this encounter Care Teams Steel Plate Caulker Relationship Specialty Start Date End Date Celio Sanders MD [address] [place] [address] PCP - General Internal Medicine 05/19/16 documented as of this encounter
--- OUTSIDE RECORDS SUMMARY | 2024-01-19 16:14 | XMS_ITS | Encounter Summary ---
Author Organization [facility] Address [facility] [place] [address] Care Team Providers Care Butter Fat Tester Name Role Phone Celio Sanders MD Primary Care Provider [phone] Encounter Details Date Type Department Care Team (Late st Contact Info) Description 02/09/2019 2:30 PM EST Office Visit Hematology/Oncology at [address] [phone] Remy Barillas MD [facility] [place] [address] Dayana Tompkins, RN Malignant neoplasm of prostate [...] 5/12 cores (all on right side), T2b, Eloy 8 Darlyn-neural invasion present PSA - 47.5 [...] 1-2 times/night. Soc Hx: , lives in [place], [place]. He goes to [place] from December to June. 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 [employer] Fam Hx: Father with prostate cancer diagnosed [...] Dermatology at [facility] [address] [place] [address] Prisca Hughes MD [facility] DR PHOE[facility] [place] [address] 02/07/2024 1:30 PM EST Office Visit Hematology/Oncology at [address] [phone] Harjinder Snyder MD [facility] DR HEMAT[place] [address] Bisi Cheng APRN [facility] [place] [address] documented as of this encounter Visit Diagnoses Diagnosis Malignant neoplasm of prostate documented in this encounter Care Teams Butter Fat Tester Relationship Specialty Start Date End Date Celio Sanders MD [address] [place] [address] PCP - General Internal Medicine 05/19/16 documented as of this encounter
--- OUTSIDE RECORDS SUMMARY | 2024-01-19 16:14 | XMS_ITS | Encounter Summary ---
Author Organization [facility] Address [facility] [place] [address] Care Team Providers Care Pipe Straightener Name Role Phone Celio Sanders MD Primary Care Provider Reason for Referral * Consultation (Routine) - Closed Specialty Diagnoses / Procedures Referred By Contac t Referred To Contact Hematology and Oncology Diagnoses Malignant neoplasm of prostate Remy Barillas MD [facility] [place] [address] [facility] Hem Onc Office [address] [place] [phone] Referral ID Status Reason Start Date Expiration Date V isits Requested Visits Authorized [id number] Closed Consult, Test & Treat 08/18/2018 08/18/2019 1 1 Encounter Details Date Type Department Care Team (Late st Contact Info) Description 08/18/2018 11:00 AM EDT Office Visit Hematology/Oncology at [address] [phone] Remy Barillas MD [facility] [place] [address] Malignant neoplasm of prostate Social History Tobacco [...] by his Yaneth. He recently returned from [place] where he is followed by Dr. Coreas. [...] to urinate. Soc Hx: , lives in [place], [place]. He goes to [place] from December to June. 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 [place] score was 8 in two of the [...] EST Office Visit Dermatology at [facility] [address] [place] [address] Prisca Hughes MD [facility] DR PHOEBE [place] [address] 02/07/2024 1:30 PM EST Office Visit Hematology/Oncology at [address] [phone] Harjinder Snyder MD [facility] DR HEMATOLOGY [place] [address] Bisi Cheng APRN [facility] [place] [address] Scheduled Referrals Name Type Priority Associated Diagnoses [...] MD CHEMISTRY ORDERABLES [facility] [place] [address] * Comprehensive metabolic panel (non-fasting) (03/28/2019 2:42 [...] in these patients send serum separator tube ([facility] top) for subsequent determinations. ??Contact the Clinical [...] of body mass or the acutely ill. http://[employer] Funding/DHMCnkf eGFR 88 >=60 mL/min/1. 73 m?? [facility] Comment: The eGFR was calculated using the CKD-EPI equation. As with all creatinine based estimates of kidney function, eGFR values calculated with the CKD-EPI equation are not accurate in patients with acute kidney failure, extremes of body mass or the acutely ill. http://Hur[employer]!.[employer]/DHMCnkf Blood specimen (specimen) 03/28/2019 2:42 PM EST 03/28/2019 2:55 PM EST Narrative Resulting Agency Comment Spec In Lab Remy Barillas MD CHEMISTRY ORDERABLES [facility] [place] [address] * SCAN DOC: LAB (08/11/2018 12:00 AM EDT) Narrative 08/11/2018 12:00 AM EDT Ordered by an unspecified provider. Scanning Provider MEDIA MGR SCAN EXT O RDR/RSLT documented in this encounter Visit Diagnoses Diagnosis Malignant neoplasm of prostate documented in this encounter Care Teams Pipe Straightener Relationship Specialty Start Date End Date Celio Sanders MD [address] [place] [address] PCP - General Internal Medicine 05/19/16 documented as of this encounter
--- OUTSIDE RECORDS SUMMARY | 2024-01-19 16:14 | XMS_ITS | Encounter Summary ---
Author Organization [facility] [place] [address] Care Team Providers Care Demand Manager Name Role Phone Celio Sanders MD Primary Care Provider [phone] Reason for Visit * Reason Onset Date Comments Results 04/04/2019 BRCA2 mutation Encounter Details Date Type Department Care Team (Late st Contact Info) Description 04/04/2019 Telephone Hematology [place] [phone] [facility] [address] Results (BRCA2 mutation) Social History Tobacco Use [...] Notes * Telephone Encounter - Eden Copeland [facility] - 04/04/2019 4:05 PM EST I [...] 2:00 PM EST Office Visit Dermatology at [place] [address] [place] [address] Prisca Hughes MD [facility] [address] 02/07/2024 1:30 PM EST Office Visit Hematology/Oncology at [address] [phone] Harjinder Snyder MD [facility] DR HEMATOLOGY [place] [address] Bisi Cheng APRN [facility] [place] [address] documented as of this encounter Visit Diagnoses Not on filedocumented in this encounter Care Teams Demand Manager Relationship Specialty Start Date End Date Celio Sanders MD [address] [place] [address] PCP - General Internal Medicine 05/19/16 documented as of this encounter
--- OUTSIDE RECORDS SUMMARY | 2024-01-19 16:14 | XMS_ITS | Encounter Summary ---
Author Organization [facility] [place] [address] Care Team Providers Care Primer Powder Blender Wet Name Role Phone Celio Sanders MD Primary Care Provider [phone] Encounter Details Date Type Department Care Team (Late st Contact Info) Description 09/09/2017 Telephone Radiation Oncology at [address] [phone] Alta Rowland RN Social History [...] Nurse Telephone Note [facility] [place], [place] ----- Message from Ronnie Vazquez MD sent at 09/09/2017 3:01 PM EDT ----- Regarding: RE: Pt looking for refill of Rx Sure - thank you ----- Message ----- From: Alta Muse RN Sent: 09/09/2017 2:52 PM To: Ronnie Vazquez MD, [facility] Rad Onc Nurse Subject: FW: Pt [...] needs a refill of his Flomax at [facility]. Thanks, Harjeet Phone call to pt that prescription for Flomax was sent to [facility] pharmacy. documented in this encounter Plan of Treatment Upcoming Encounters Date Type Department Care Team (Late st Contact Info) Description 01/24/2024 2:00 PM EST Office Visit Dermatology at [address] [phone] Prisca Hughes MD [facility] DR [place] [address] 02/07/2024 1:30 PM EST Office Visit Hematology/Oncology at [address] [phone] Harjinder Snyder MD [facility] DR [place] [address] Bisi Cheng APRN [facility] [place] [address] documented as of this encounter Visit Diagnoses Diagnosis Malignant neoplasm of prostate documented in this encounter Care Teams Primer Powder Blender Wet Relationship Specialty Start Date End Date Celio Sanders MD [address] [place] [address] PCP - General Internal Medicine 05/19/16 documented as of this encounter
--- OUTSIDE RECORDS SUMMARY | 2024-01-19 16:14 | XMS_ITS | Encounter Summary ---
Author Organization [facility] [place] [address] Care Team Providers Care Director Of Retention Name Role Phone Celio Sanders MD Primary Care Provider [phone] Encounter Details Date Type Department Care Team (Latest Contact Info) Description 03/28/2019 2:09 PM EST - 03/28/2019 11:59 PM EST Hospital Encounter Hematology [place] [phone] Prostate cancer metastatic to intrapelvic lymph node; [...] PM EST Office Visit Dermatology at [address] [phone] Prisca Hughes MD [facility] DR PHOEBE [place] [address] 02/07/2024 1:30 PM EST Office Visit Hematology/Oncology at [address] [phone] Harjinder Snyder MD [facility] DR HEMATOLOGY [place] [address] Bisi Cheng APRN [facility] [place] [address] documented as of this encounter Procedures Procedure [...] 2:42 PM EST) Neutrophil % 51.5 % [facility] Neutrophil Absolute 3.04 1.70 - 6.10 x10(3)/[facility] Lymph % 34.3 % [facility] Lymphocytes Abs 2.0 0.9 - 3.2 x10(3)/[facility] Monocyte % 9.3 % [facility] Monocyte Abs 0.6 0.3 - 0.9 x10(3)/[facility] Eos % 3.9 % [facility] Eosinophils Abs 0.2 0.0 - 0.4 x10(3)/[facility] Basophil % 0.7 % [facility] Baso Absolute 0.0 0.0 - 0.1 x10(3)/[facility] Immature Gran % 0.30 % [facility] Comment: Immature granulocytes(IG's)percentage and absolute count will include metamyelocytes, myelocytes, and promyelocytes. Blood smears from CBCs yielding IG's will be scanned manually for concordance. If this scan disagrees with the automated IG or if promyelocytes are noted, a manual differential will be performed. Immature Gran Absolute 0.02 0.00 - 0.04 x10(3)/[facility] Blood specimen (specimen) 03/28/2019 2:42 PM EST 03/28/2019 2:55 PM EST Narrative Resulting Agency Comment Spec In Lab Remy Barillas MD HEMATOLOGY ORDERABLE S [facility] [place] [address] * (ABNORMAL) Hemogram (03/28/2019 2:42 PM EST) [facility] White Blood Cell 5.9 4.0 - 9.5 x10(3)/mc L [facility] Red Blood Cell 4.09(L) 4.58 - 5.54 x10(6)/[facility] Hemoglobin 13.0(L) 13.7 - 16.5 gm/dL [facility] Hematocrit 38.7(L) 40.5 - 48.5 % [facility] Mean Cell Volume 94.6(H) 82.9 - 93.1 fL [facility] Mean Cell Hemoglobin 31.8 27.5 - 32.1 pg [facility] Mean Cell Hemoglobin Concentration 33.6 32.0 - 35.7 gm/dL [facility] Platelet 226 145 - 357 x10(3)/[facility] RDW Standard Deviation 43.9 36.0 - 45.0 [facility] RDW coefficient of variation 12.7 11.4 - 13.8 % [facility] Mean Platelet Volume 9.3 7.6 - 12.9 [facility] NRBC% auto 0.0 % [facility] NRBC Absolute 0.000 0.000 - 0.000 x10(3)/[facility] Blood specimen (specimen) 03/28/2019 2:42 PM EST 03/28/2019 2:55 PM EST Narrative Resulting Agency Comment Spec In Lab Remy Barillas MD HEMATOLOGY ORDERABLE S [facility] [place] [address] * Comprehensive metabolic panel (non-fasting) (03/28/2019 2:42 PM EST) [facility] Glucose 119 65 - 199 mg/dL [facility] Comment:Diabetes: >=200 mg/d L plus symptoms Blood Urea Nitrogen 19 10 - 20 mg/dL [facility] Creatinine 1.00 0.80 - 1.50 mg/dL [facility] Sodium 143 135 - 145 mmol/L [facility] Potassium 4.1 3.5 - 5.0 mmol/L [facility] Comment: Please note: ??Patients with WBC >100,000 may have falsely elevated Potassium levels. ??For accurate Potassium quantification in these patients send serum separator tube ([facility] top) for subsequent determinations. ??Contact the Clinical Chemistry Laboratory if there are any questions. Chloride 105 98 - 107 mmol/L [facility] Carbon Dioxide 29 22 - 31 mmol/L [facility] Anion Gap 9 5 - 15 mmol/L [facility] Calcium 9.0 8.5 - 10.5 mg/dL [facility] Protein, Total 7.2 6.1 - 8.0 gm/dL [facility] Albumin 4.4 3.2 - 5.2 gm/dL [facility] Aspartate Aminotransferase 22 0 - 39 unit/L [facility] Alanine Aminotransferase 26 0 - 55 unit/L [facility] Alkaline Phosphatase 75 40 - 130 unit/L [facility] Bilirubin, Total 0.2 0.2 - 1.3 mg/dL [facility] Est Glomerular Filtration Rate 76 >=60 mL/min/1. 73 m?? [facility] Comment: The eGFR was calculated using the CKD-EPI equation. As with all creatinine based estimates of kidney function, eGFR values calculated with the CKD-EPI equation are not accurate in patients with acute kidney failure, extremes of body mass or the acutely ill. http://BiTaksi/DHMCnkf eGFR 88 >=60 mL/min/1. 73 m?? [facility] Comment: The eGFR was calculated using the CKD-EPI equation. As with all creatinine based estimates of kidney function, eGFR values calculated with the CKD-EPI equation are not accurate in patients with acute kidney failure, extremes of body mass or the acutely ill. http://Transluminal [employer].com/DHMCnkf Blood specimen (specimen) 03/28/2019 2:42 PM EST 03/28/2019 2:55 PM EST Narrative Resulting Agency Comment Spec In Lab Remy Barillas MD CHEMISTRY ORDERABLES Performing Organization Address City/[facility]/ZIP Co de Phone Number [facility] [place] [address] * PSA (Ultrasensitive) (03/28/2019 2:42 PM EST) Prostate Specific Antigen (Ultrasensitiv e) <0.01 0.00 - 4.00 ng/mL [facility] Blood specimen (specimen) 03/28/2019 2:42 PM EST 03/28/2019 2:55 PM EST Narrative Resulting Agency Comment Spec In Lab Remy Barillas MD CHEMISTRY ORDERABLES Performing Organization Address [facility] Co de Phone Number [facility] [place] [address] * Research Venipuncture (03/28/2019 2:42 PM EST) Research Venipuncture Drawn [facility] Blood specimen (specimen) 03/28/2019 2:42 PM EST 03/28/2019 3:44 PM EST Narrative Resulting Agency Comment Spec In Lab Tre Walker MD CHEMISTRY ORDERABLES Performing Organization Address City/[facility] Co de Phone Number [facility] [place] [address] documented in this encounter Visit Diagnoses Diagnosis Prostate cancer metastatic to intrapelvic lymph node Malignant neoplasm of prostate documented in this encounter Care Teams Director Of Retention Relationship Specialty Start Date End Date Celio Sanders MD [address] [place] [address] PCP - General Internal Medicine 05/19/16 documented as of this encounter
--- OUTSIDE RECORDS SUMMARY | 2024-01-19 16:14 | XMS_ITS | Encounter Summary ---
Author Organization [facility] [place] [address] Care Team Providers Care Supervisor Lead Burning Name Role Phone Celio Sanders MD Primary Care Provider [phone] Reason for Visit * Reason Comments Prostate Cancer Encounter Details Date Type Department Care Team (Late st Contact Info) Description 08/23/2017 3:00 PM EDT Office Visit Hematology/Oncology at [address] [phone] Gael Anderson MD [address] [place] [phone] Malignant neoplasm of prostate Social History Tobacco [...] 12 weeks since his last injection in [place] and is due a Lupron shot today. [...] of education: N/A Occupational History ??? 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 Smoking status: [...] for this visit. Pathology: 05/17/16 Extradepartmental number: ??[id number]; collection date, 04/27/2016. A - Prostatic core needle biopsy, right lateral base: ? 1. Adenocarcinoma, grade group 3, [place] grade 4+3, ?involving 95% of the biopsy core. ? 2. Perineural invasion identified. B - Prostatic core needle biopsy, right medial base: ? 1. Adenocarcinoma, grade group 3, [place] grade 4+3, ?involving 95% of the biopsy core. ? 2. Perineural invasion identified. C - Prostatic core needle biopsy, right mid lateral: ? Adenocarcinoma, grade group 4, [place] grade 4+4, ? involving 90% of the [...] medial apex: ? Adenocarcinoma, grade group 3, [place] grade 3+4, ? involving 25% of the [...] PM EST Office Visit Dermatology at [address] [place] [address] Prisca Hughes MD [facility] DR [place] [address] 02/07/2024 1:30 PM EST Office Visit Hematology/Oncology at [address] [phone] Harjinder Snyder MD [facility] HEMATOLOGY [place] [address] Bisi Cheng APRN [facility] [place] [address] documented as of this encounter Visit Diagnoses Diagnosis Malignant neoplasm of prostate documented in this encounter Care Teams Supervisor Lead Burning Relationship Specialty Start Date End Date Celio Sanders MD [address] [place] [address] PCP - General Internal Medicine 05/19/16 documented as of this encounter
--- OUTSIDE RECORDS SUMMARY | 2024-01-19 16:14 | XMS_ITS | Encounter Summary ---
[place] [address] Care Team Providers Care Candy Separator Enrobing Name Role Phone Celio Sanders MD Primary Care Provider [phone] Reason for Visit * Reason Comments Injections Lupron * Treatment/Therapy Plan Authorization (Routine) - Closed Specialty Diagnoses / Procedures Referred By Contac t Referred To Contact Diagnoses Prostate cancer metastatic to intrapelvic lymph node Gael Anderson MD [address] [place] [address] Hem Onc Office [address] [place] [phone] Referral ID Status Reason Start Date Expiration Date Visits Re quested Visits Authorized [id number] Closed 11/15/2017 11/15/2018 1 1 Encounter Details Date Type Department Care Team (Late st Contact Info) Description 02/09/2019 3:00 PM EST Infusion Hematology Oncology at [address] [phone] Prostate cancer metastatic to intrapelvic [...] PM EST Office Visit Dermatology at [address] [place] [address] Prisca Hughes MD [facility] DR [place] [address] 02/07/2024 1:30 PM EST Office Visit Hematology/Oncology at [address] [phone] Harjinder Snyder MD [facility] DR [place] [address] Bisi Cheng APRN [facility] [place] [address] documented as of this encounter Visit Diagnoses [...] Gluteal documented in this encounter Care Teams Candy Separator Enrobing Relationship Specialty Start Date End Date Celio Sanders MD [address] [place] [address] PCP - General Internal Medicine 05/19/16 documented as of this encounter
--- OUTSIDE RECORDS SUMMARY | 2024-01-19 16:14 | XMS_ITS | Encounter Summary ---
Author Organization [facility] Address [facility] [place] [address] Care Team Providers Care Cigar Head Perforator Name Role Phone Celio Sanders MD Primary Care Provider [phone] Encounter Details Date Type Department Care Team (Late st Contact Info) Description 05/04/2019 11:00 AM EST Office Visit Hematology/Oncology at [address] [phone] Remy Barillas MD [facility] [place] [address] Dayana Tompkins, RN Malignant neoplasm of prostate [...] documented in this encounter Progress Notes * eRmy Barillas MD - 05/04/2019 11:00 AM EST Subjective: Patient ID: Nain Mckeon is a 68 y.o. male. Problem List: 1. Prostate cancer, cT2b, N1 A. Presented with hematuria TRUS prostate biopsies 04/2016 - Adenocarcinoma in 5/12 cores (all on right side), T2b, [place] 8 Darlyn-neural invasion present PSA - 47.5 [...] negative 9. Genetic testing 03/2018 - Result: [employer]'s Common Hereditary Cancers Panel showed that Nain carries a pathogenic variant (mutation) in BRCA2 specifically c.1929del(p.Eks583Gwwnn15). This result is consistent with a diagnosis [...] BRCA2, BRIP1, CDH1, CDK4, CDKN2A (p14ARF), CDKN2A (o43YCI1n), CHEK2, CTNNA1, DICER1, EPCAM (EPCAM: Deletion/duplication testing [...] the AXIN2 and CTNNA1 genes, specifically c.1531A>T (p.Zya721Evo) and c.515A>T (p.Ssa490Yhg), were detected. ? Interpretation: The most significant consequences of carrying a pathogenic variant in BRCA2 are increased risks forbreast cancer and ovarian cancer in women. For men, the most significant consequence is for prostate cancer so this finding is felt to be related to Nancies cancer. Other cancers associated with GQMH1gvn breast cancer in men, pancreatic, and melanoma. [...] with them. ?? Nain's sons live in [place] and [place]. They can go to the website of [...] the gene with no increased cancer risks. [employer] is continually collecting and analyzing their data, [...] and mailing address stay updated in the [facility] system, in order for us to reach [...] or drinking heavily. ?? We discussed with Nani that there is no established screening; however, [...] in the future, Dr. Ara Mary, a ghost writer at [facility] [place] in [place], is willing to discuss these screening options with Nain. Nain can schedule an appointment with her by reaching her assistant secretary at [phone]. ?? Prostate Cancer Screening for Nain's sons [...] Periodic colonoscopy screening as recommended by Nain's ghost writer. ?? HPI Mr. Mckeon is seen in [...] urinate lately. Soc Hx: , lives in [place], [place]. He goes to [place] from December to June. 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 [place] score was 8 in two of the [...] 2:00 PM EST Office Visit Dermatology at [address] [place] [address] Prisca Hughes MD [facility] DR PHOE[place] [address] 02/07/2024 1:30 PM EST Office Visit Hematology/Oncology at [address] [phone] Harjinder Snyder MD [facility] DR [place] [address] Bisi Cheng APRN [facility] [place] [address] documented as of this encounter Visit Diagnoses Diagnosis Malignant neoplasm of prostate documented in this encounter Care Teams Cigar Head Perforator Relationship Specialty Start Date End Date Celio Sanders MD [address] [place] [address] PCP - General Internal Medicine 05/19/16 documented as of this encounter
--- OUTSIDE RECORDS SUMMARY | 2024-01-19 16:14 | XMS_ITS | Encounter Summary ---
Author Organization [facility] [place] [address] Care Team Providers Care Professor Of German Name Role Phone Celio Sanders MD Primary Care Provider Reason for Referral * Consultation (Routine) - Closed Specialty Diagnoses / Procedures Referred By Contac t Referred To Contact Diagnoses BRCA gene mutation positive Prostate cancer metastatic to intrapelvic lymph node Vitamin D deficiency Swathi Uriostegui APRN [address] [place] [address] [place] [address] Randy Brown MD [address] [place] [address], [place] [address] Referral ID Status Reason Start Date Expiration Date V isits Requested Visits Authorized [id number] Closed Consult, Test & Treat 04/16/2021 10/13/2021 1 1 Encounter Details Date Type Department Care Team (Late st Contact Info) Description 04/13/2021 10:30 AM EST Office Visit Hematology/Oncology at [address] [phone] Swathi Uriostegui ETHYLBENZENE CRACKING SUPERVISOR [address] [place] [address] HEMATOLOGY ONCOLOGY [place], [place] [phone] BRCA gene mutation positive; Prostate cancer metastatic [...] 5/12 cores (all on right side), T2b, [place] 8 Darlyn-neural invasion present PSA - 47.5 [...] a pathogenic variant (mutation) in BRCA2 specifically c.1929del(p.Unw345Odtlr15). 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 At the time of the appointment,??Tasiawas provided with a printed copy of his??test result and an informational packet addressing a positive test result. ?? The following??47??genes were evaluated for sequence changes and exonic deletions/duplications: APC, RUMA, AXIN2, BARD1, BMPR1A, BRCA1, BRCA2, BRIP1, CDH1, CDK4, CDKN2A (p14ARF), CDKN2A (o19MBU0a), CHEK2, CTNNA1, DICER1, EPCAM (EPCAM: Deletion/duplication testing [...] (VUS) in the AXIN2 and CTNNA1??genes, specifically c.1531A>T(p.Adl016Trk) and c.515A>T (p.Uyv374Dar), were??detected. ? Interpretation: The most significant consequences [...] with them. ?? Nain's sons live in [place] and [place]. ??They can go to the website of [...] is made and we would then notify Nani. It is important that??Nain's??phone number and mailing address stay updated in the [facility] system, in order for us to reach [...] possibility in the future,??Dr. Ara Mary, a lodge attendant at [facility] in [place], is willing to discuss these screening options with Nain.??Nain??can schedule an appointment with her by reaching her board of education secretary at [phone]. ?? Prostate Cancer Screening for Nain's sons ? Prostate cancer screening starting at age 40.?If either of them is found to not have the BRCA2 mutation then they can consider screening beginning at age 50 which is the recommendation for menin the general population ?? Skin cancer screening ?? Periodic skin exams ?? Colon cancer screening ?? Periodic colonoscopy screening as recommended by??Nain's lodge attendant. ?. ??SUMMARY ASSESSMENT/PLAN 07/24 He was diagnosed with prostate cancer in 2017 after presenting with hematuria and found to have an abnormal prostate gland on exam. TRUS prostate bx showed adenocarcinoma in 5/12 cores, all on the right. [place] score was 8 in two of the [...] PSA. ? Soc Hx: , lives in [place], [place]. He goes to [place] from December to June. 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, formerly worked in [email or web address] for a [employer] ?? Fam Hx: Father with prostate cancer [...] [place] [facility] [place] [...] swimming 5-6 times a week at the [facility] [employer]. He also walks his dogs daily. His [...] Nain is in agreement to see a edge bander operator for baseline exam as his BRCA2 positive [...] returns to the [facility] oncology clinic in [facility] today for followup surveillance visit [...] PM EST Office Visit Dermatology at [address] [phone] Prisca Hughes MD [facility] [place] [address] 02/07/2024 1:30 PM EST Office Visit Hematology/Oncology at [address] [phone] Harjinder Snyder MD [facility] [place] [address] Bisi Cheng APRN [facility] [place] [address] Scheduled Referrals Name Type Priority Associated Diagnoses [...] deficiency documented in this encounter Care Teams Professor Of German Relationship Specialty Start Date End Date Celio Sanders MD [address] [place] [address] PCP - General Internal Medicine 05/19/16 documented as of this encounter
--- OUTSIDE RECORDS SUMMARY | 2024-01-19 16:14 | XMS_ITS | Encounter Summary ---
Author Organization [facility] Address [facility] [place] [address] Care Team Providers Care Tv Host Name Role Phone Celio Sanders MD Primary Care Provider [phone] Encounter Details Date Type Department Care Team (Late st Contact Info) Description 06/30/2020 1:30 PM EDT Office Visit Hematology/Oncology at [address] [phone] Swathi Uriostegui APRN [address] [place] [address] DR HEMATOLOGY ONCOLOGY [place], [place] [phone] Prostate cancer metastatic to intrapelvic lymph node; [...] this encounter Progress Notes * Swathi Uriostegui, FOUNTAIN CLERK - 06/30/2020 1:30 PM EDT Subjective: Patient [...] a pathogenic variant (mutation) in BRCA2 specifically c.1929del(p.Hiy693Omojc15). 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 At the time of the appointment,??Tasiawas provided with a printed copy of his??test result and an informational packet addressing a positive test result. ?? The following??47??genes were evaluated for sequence changes and exonic deletions/duplications: APC, RUMA, AXIN2, BARD1, BMPR1A, BRCA1, BRCA2, BRIP1, CDH1, CDK4, CDKN2A (p14ARF), CDKN2A (t32AIB8n), CHEK2, CTNNA1, DICER1, EPCAM (EPCAM: Deletion/duplication testing [...] (VUS) in the AXIN2 and CTNNA1??genes, specifically c.1531A>T(p.Lmq214Yta) and c.515A>T (p.Qgw531Gdu), were??detected. ? Interpretation: The most significant consequences [...] with them. ?? Nain's sons live in [place] and [place]. ??They can go to the website of [...] and mailing address stay updated in the [facility] system, in order for us to reach [...] possibility in the future,??Dr. Ara Mary, a slunk skinner at [facility] [place], is willing to discuss these screening options with Nain.??Nain??can schedule an appointment with her by reaching her alumnae secretary at [phone]. ?? Prostate Cancer Screening for Nain's sons ? Prostate cancer screening starting at age 40.?If either of them is found to not have the BRCA2 mutation then they can consider screening beginning at age 50 which is the recommendation for menin the general population ?? Skin cancer screening ?? Periodic skin exams ?? Colon cancer screening ?? Periodic colonoscopy screening as recommended by??Nain's slunk skinner. ?. ??SUMMARY ASSESSMENT/PLAN 07/24 He was diagnosed with prostate cancer in 2017 after presenting with hematuria and found to have an abnormal prostate gland on exam. TRUS prostate bx showed adenocarcinoma in 5/12 cores, all on the right. [place] score was 8 in two of the [...] PSA. ? Soc Hx: , lives in [place], [place]. He goes to [place] from December to June. 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 Fam Hx: Father with prostate [...] [facility] in [facility] today for follow up surveillance visit with PSA review. His last Lupron injection was 04/26. Nain says he feels really good. His energy is good and he continues to take long walks daily with his dogs. He feels his depression recovery is continuing to go well. He also works out regularly at [facility] [employer] and is looking forward to participating in [...] returns to the [facility] in [facility] [...] 2:00 PM EST Office Visit Dermatology at [address] [place] [phone] Prisca Hughes MD [facility] DR PHOE[place] [address] 02/07/2024 1:30 PM EST Office Visit Hematology/Oncology at [address] [phone] Harjinder Snyder MD [facility] [place] [address] Bisi Cheng APRN [facility] [place] [address] documented as of this encounter Visit Diagnoses Diagnosis Prostate cancer metastatic to intrapelvic lymph node Malignant neoplasm of prostate BRCA2 positive Genetic susceptibility to malignant neoplasm of breast documented in this encounter Care Teams Tv Host Relationship Specialty Start Date End Date Celio Sanders MD [address] [place] [address] PCP - General Internal Medicine 05/19/16 documented as of this encounter
--- OUTSIDE RECORDS SUMMARY | 2024-01-19 16:14 | XMS_ITS | Encounter Summary ---
Author Organization [facility] Address [facility] [place] [address] Care Team Providers Care Medical Practice Assistant Name Role Phone Celio Sanders MD Primary Care Provider Encounter Details Date Type Department Care Team (Late Contact Info) Description 07/02/2020 Orders Only Hematology/Oncology at [address] [phone] Swathi Uriostegui APRN [address] [place] [address] DR HEMATOLOGY ONCOLOGY [place], [place] [address] Prostate cancer metastatic to intrapelvic lymph node; [...] PM EST Office Visit Dermatology at [facility] [address] [place] [address] Prisca Hughes MD [facility] DR PHOE[place] [address] 02/07/2024 1:30 PM EST Office Visit Hematology/Oncology at [address] [phone] Harjinder Sndyer MD [facility] DR [place] [address] Bisi Cheng APRN [facility] [place] [address] documented as of this encounter Visit Diagnoses Diagnosis Prostate cancer metastatic to intrapelvic lymph node BRCA2 positive Genetic susceptibility to malignant neoplasm of breast Malignant neoplasm of prostate documented in this encounter Care Teams Medical Practice Assistant Relationship Specialty Start Date End Date Celio Sanders MD [address] [place] [address] PCP - General Internal Medicine 05/19/16 documented as of this encounter
--- OUTSIDE RECORDS SUMMARY | 2024-01-19 16:14 | XMS_ITS | Encounter Summary ---
Author Organization [facility] Address [facility] [place] [address] Care Team Providers Care Senior Graphic Designer Name Role Phone Celio Sanders MD Primary Care Provider [phone] Encounter Details Date Type Department Care Team (Late st Contact Info) Description 03/23/2019 Notes Only [place] [address] Tre Walker MD [facility] DR HEMATOLOGY/[place] [address] Social History Tobacco Use Types Packs/Day Years [...] PM EST Office Visit Dermatology at [facility] [address] [place] [phone] Prisca Hughes MD [facility] DR [place] [address] 02/07/2024 1:30 PM EST Office Visit Hematology/Oncology at [address] [phone] Harjinder Snyder MD [facility] DR HEMATOLOGY [place] [address] Bisi Cheng APRN [facility] [place] [address] documented as of this encounter Visit Diagnoses Not on filedocumented in this encounter Care Teams Senior Graphic Designer Relationship Specialty Start Date End Date Celio Sanders MD [address] [place] [address] PCP - General Internal Medicine 05/19/16 documented as of this encounter
--- OUTSIDE RECORDS SUMMARY | 2024-01-19 16:14 | XMS_ITS | Encounter Summary ---
Author Organization [facility] Address [facility] [place] [address] Care Team Providers Care Credit Associate Name Role Phone Celio Sanders MD Primary Care Provider [phone] Encounter Details Date Type Department Care Team (Late st Contact Info) Description 07/27/2019 2:30 PM EDT Office Visit Hematology/Oncology at [address] [phone] Remy Barillas MD [facility] [place] [address] Dayana Tompkins, RN Prostate cancer metastatic to [...] this encounter Progress Notes * Dayana Tompkins, SUPERVISOR WASH HOUSE - 07/27/2019 2:30 PM EDT Subjective: Encounter [...] 5/12 cores (all on right side), T2b, [place] 8 Darlyn-neural invasion present PSA - 47.5 [...] negative 9. Genetic testing 03/2018 - Result: [facility] [employer]'s Common Hereditary Cancers Panel showed that Nain carries a pathogenic variant (mutation) in BRCA2 specifically c.1929del(p.Azq165Nxqop15). This result is consistent with a diagnosis [...] BRCA2, BRIP1, CDH1, CDK4, CDKN2A (p14ARF), CDKN2A (x55IHQ1w), CHEK2, CTNNA1, DICER1, EPCAM (EPCAM: Deletion/duplication testing [...] the AXIN2 and CTNNA1 genes, specifically c.1531A>T (p.Wnm296Rcm) and c.515A>T (p.Dwn316Rzy), were detected. ? Interpretation: The most significant consequences of carrying a pathogenic variant in BRCA2 are increased risks forbreast cancer and ovarian cancer in women. For men, the most significant consequence is for prostate cancer so this finding is felt to be related to Nancies cancer. Other cancers associated with EFZR9geq breast cancer in men, pancreatic, and melanoma. [...] ?? Nain's sons live in [place] and [place]. They can go to the website of [...] the gene with no increased cancer risks. [employer] is continually collecting and analyzing their data, [...] and mailing address stay updated in the [facility] system, in order for us to [...] earliest exocrine pancreatic cancer diagnosis in thefamily. aNin's maternal aunt had pancreatic cancer at age 35. It is not known if she had a BRCA2 mutation. Given this history, Nain meets criteria for screening. His risk for pancreatic cancer is about 3%. Based on this he indicated that he is not currently interested in pursuing screening. Should he desire to discuss this possibility in the future, Dr. Ara Mary, a white washer piler at [facility] [place], is willing to discuss these screening options with Nain. Nain can schedule an appointment with her by reaching her special education secretary at [phone]. ?? Prostate Cancer Screening for Nain's sons [...] Periodic colonoscopy screening as recommended by Nain's white washer piler. ?? HPI Mr. Mckeon is seen in f/u of prostate cancer. This is his first visit with me. Mr. Mckeon returns to the [facility] for follow up of his prostate [...] to burn. Soc Hx: , lives in [place], [place]. He goes to [place] from December to June. 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 [place] score was 8 in two of the [...] 2:00 PM EST Office Visit Dermatology at [place] [address] [place] [address] Prisca Hughes MD [facility] [place] [address] 02/07/2024 1:30 PM EST Office Visit Hematology/Oncology at [address] [phone] Harjinder Snyder MD [facility] DR [place] [address] Bisi Cheng APRN [facility] [place] [address] documented as of this encounter Visit Diagnoses Diagnosis Prostate cancer metastatic to intrapelvic lymph node documented in this encounter Care Teams Credit Associate Relationship Specialty Start Date End Date Celio Sanders MD [address] [place] [address] PCP - General Internal Medicine 05/19/16 documented as of this encounter
--- OUTSIDE RECORDS SUMMARY | 2024-01-19 16:14 | XMS_ITS | Encounter Summary ---
Author Organization [facility] Address [facility] [place] [address] Care Team Providers Care Machine Maintenance Supervisor Name Role Phone Celio Sanders MD Primary Care Provider [phone] Encounter Details Date Type Department Care Team (Late st Contact Info) Description 05/12/2021 2:45 PM EST - 05/12/2021 3:30 PM EST [place] [phone] Nicky Bray MD [facility] [place] [address] COLONOSCOPY, DIAGNOSTIC (WRVU 3.26) Social History Tobacco [...] PM EST Office Visit Dermatology at [address] [phone] Prisca Hughes MD [facility] DR PHOEBE IBARRA[place] [address] 02/07/2024 1:30 PM EST Office Visit Hematology/Oncology at [address] [phone] Harjinder Snyder MD [facility] HEMATOLOGY [place] [address] Bisi Cheng APRN [facility] [place] [address] documented as of this encounter Procedures Procedure Name Priority Date/Time Associated Diagnosis Comments SPECIMEN TO PATHOLOGY Routine 05/12/2021 3:10 PM EST SURGICAL PATHOLOGY REPORT Routine 05/12/2021 2:59 PM EST Colonoscopy, Diagnostic ([id number]) 05/12/2021 2:31 PM EST BRCA gene mutation positive COLONOSCOPY Routine 05/12/2021 2:18 PM EST documented in this encounter Results * Specimen to Pathology (05/12/2021 3:10 PM EST) AP Specimen 05/12/2021 3:10 PM EST 05/12/2021 3:10 PM EST Narrative [facility] - 05/12/2021 3:10 PM EST Specimen requisition ordered. ??Separate Pathology report to follow Nicky Bray MD PATHOLOGY/CYTOLOGY O RDERALUIS DANIEL [facility] [place] [address] * Surgical Pathology Report (05/12/2021 2:59 PM EST) Final Diagnosis [id number] ? Location: 4T; EA12; A The signing pathologist has (i) examined the relevant preparation(s) for the specimen(s) and (ii) rendered or confirmed the diagnosis(es). . ?Surgical Pathology DIAGNOSIS A - Descending colon polyp 3mm, excision: - ??Tubular adenoma. CR-PX Electronically signed by: ?Eduard Martinez MD Verified: ??05/14/2021 15:49 ??Pathologist Performed at: ??-[facility] [place] [place], [place], [place] SPECIMEN(S) SUBMITTED A - Descending colon [...] labeled A1. ??pps 05/14/2021 3:49 PM EST [facility] GI Biopsy 05/12/2021 2:59 PM EST 05/12/2021 2:59 PM EST Nicky Bray MD PATHOLOGY/CYTOLOGY O RDERALUIS DANIEL [facility] [place] [place] [address] * COLONOSCOPY (05/12/2021 2:18 PM EST) COLONOSCOPY [facility] Endoscopy Procedure Date: 05/12/2021 2:18 PM ? Patient Name: Nain Mckeon ? Date of : 1950 ? Age: 70 ? Order #: [id number] ? Instrument Name: -[id number] ? Procedure: ? Colonoscopy Indications: ? Screening patient at increased risk: ? Family history of 1st-degree relative ? with colorectal cancer at age 60 ? years (or older) Providers: ? Nicky Bray MD, Sav Platt ? Ivon Angel, Gunstock Spray Unit Feeder Referring MD: ?Celio Sanders MD Medicines: ? [...] preparation was ? evaluated using the BBPS (Stuart ? Bowel Preparation Scale) with scores ? [...] Procedure Code(s): ?? --- Professional --- ? 89697, Colonoscopy, flexible; with ? removal of tumor(s), polyp(s), or ? other lesion(s) by snare technique CPT copyright 2019 [employer]. All rights reserved. The codes documented in this report are preliminary and upon electrical electronics engineers review may be revised to meet current [...] CONTINUOUS, Starting on 05/12/21 at 1400, Until Tue05/12/21 at 1535, Endoscopy (Day of Procedure) Restarted 05/12/2021 2:23 PM EST New Bag 05/12/2021 2:00 PM EST 100 mL/hr 100 mL/hr documented in this encounter Active and Recently Administered Medications Times are shown in EST. Continuous Medication Order 05/10/2021 05/11/2021 05/12/2021 lactated ringers infusion (CANCELED) 100 mL/hr, Intravenous, CONTINUOUS, Starting on e 05/12/21 at 1400, Until Tue05/12/21 at 1535, Endoscopy (Day of Procedure) 1400 (New Bag - Prov ider: Sam Helms RN)1422 (Paused - Provider: Tarun Brambila CRNA - Comment: Switch to gravity)1423 (Restarted - Provider: Tarun Brambila CRNA)1508 (Anesthesia Volume Adjustment - Provider: Tarun Brambila CRNA) documented in this encounter Care Teams Machine Maintenance Supervisor Relationship Specialty Start Date End Date Celio Sanders MD [address] [place] [address] PCP - General Internal Medicine 05/19/16 documented as of this encounter
--- OUTSIDE RECORDS SUMMARY | 2024-01-19 16:14 | XMS_ITS | Encounter Summary ---
Author Organization [facility] Address [facility] [place] [address] Care Team Providers Care Structural Metal Worker Name Role Phone Celio Sanders MD Primary Care Provider Encounter Details Date Type Department Care Team (Late Contact Info) Description 02/09/2021 [place] [phone] Dori Maharaj Social History Tobacco Use Types [...] [facility] [address] [place] [phone] Prisca Hughes MD [facility] DR PHOEBE [place] [address] 02/07/2024 1:30 PM EST Office Visit Hematology/Oncology at [address] [phone] Harjinder Snyder MD [facility] [place] [address] Bisi Cheng APRN [facility] [place] [address] documented as of this encounter Visit Diagnoses Not on filedocumented in this encounter Care Teams Structural Metal Worker Relationship Specialty Start Date End Date Celio Sanders MD [address] [place] [address] PCP - General Internal Medicine 05/19/16 documented as of this encounter
--- OUTSIDE RECORDS SUMMARY | 2024-01-19 16:14 | XMS_ITS | Encounter Summary ---
Author Organization Replaced By [facility] Address [facility] [place] [address] Care Team Providers Care General Manager Oracle Data Cloud Name Role Phone Celio Sanders MD Primary Care Provider [phone] Reason for Visit * Reason Comments Results BRCA2 mutation Encounter Details Date Type Department Care Team (Late st Contact Info) Description 05/02/2019 9:30 AM EST Office Visit Hematology [place] [phone] Tre Walker MD [facility] HEMATOLOGY/[place] [address] Eden Copeland, [facility] HEMATOLOGY[place] [address] Prostate cancer metastatic to intrapelvic lymph node; [...] Nain Mckeon was seen by Eden Copeland [facility] and myself in the Familial Cancer Program to receive results from genetic testing. I spent all of 30 minutes in [id number] consultation outlining the test result and its implications. A summary is below and a copy has been sent to Nain. Please be advised that [place] law requires that all health care workers respect the confidentiality of this information and not pass it along to other health care providers, insurance companies, or individualswithout the written permission of the patient. The Familial Cancer Program welcomes any questions about these matters. Our phone number is: [phone]. On 03/28/2019, Nain underwent gene panel analysis based on the personal history of prostate cancer and family history of prostate, breast, pancreatic and possibly ovarian cancer. Following are the results of this test. Result: [facility] Common Hereditary Cancers Panel showed that Nain carries a pathogenic variant (mutation) in BRCA2 specifically c.1929del(p.Ryh557Emapu15). This result is consistent with a diagnosis [...] BRCA2, BRIP1, CDH1, CDK4, CDKN2A (p14ARF), CDKN2A (j17JMI3w), CHEK2, CTNNA1, DICER1, EPCAM (EPCAM: Deletion/duplication testing [...] the AXIN2 and CTNNA1 genes, specifically c.1531A>T (p.Txi928Rcl) and c.515A>T (p.Qbd040Bzb), were detected. Interpretation: The most significant consequences of carrying a pathogenic variant in BRCA2 are increased risks forbreast cancer and ovarian cancer in women. For men, the most significant consequence is for prostate cancer so this finding is felt to be related to Nancies cancer. Other cancers associated with SBSP7xvk breast cancer in men, pancreatic, and melanoma. [...] information with them. Nain's sons live in [place] and [place]. They can go to the website of [...] the gene with no increased cancer risks. [facility] is continually collecting and analyzing their data, [...] and mailing address stay updated in the [facility] system, in order for us to reach [...] in the future, Dr. Ara Mary, a multicraft operator at [facility] in [place], is willing to discuss these screening options with Nain. Nain can schedule an appointment with her by reaching her earth science laboratory technician at [phone]. Prostate Cancer Screening for Nain's sons ?? Prostate cancer screening starting at age 40. If either of them is found to not have the BRCA2 mutation then they can consider screening beginning at age 50 which is the recommendation for men in the general population Skin cancer screening ??? Periodic skin exams Colon cancer screening ?? Periodic colonoscopy screening as recommended by Nain's multicraft operator. We provided Nain with information on an [...] For some, a consultation with a psychologist, psychologist social, or psychiatrist may be helpful in dealing [...] PM EST Office Visit Dermatology at [address] [phone] Prisca Hughes MD [facility] [place] [address] 02/07/2024 1:30 PM EST Office Visit Hematology/Oncology at [address] [phone] Harjinder Snyder MD [facility] [place] [address] Bisi Cheng APRN [facility] [place] [address] documented as of this encounter Visit Diagnoses Diagnosis Prostate cancer metastatic to intrapelvic lymph node BRCA2 positive Genetic susceptibility to malignant neoplasm of breast documented in this encounter Care Teams General Manager Oracle Data Cloud Relationship Specialty Start Date End Date Celio Sanders MD [address] [place] [address] PCP - General Internal Medicine 05/19/16 documented as of this encounter
--- OUTSIDE RECORDS SUMMARY | 2024-01-19 16:14 | XMS_ITS | Encounter Summary ---
Author Organization [facility] Address [facility] [place] [address] Care Team Providers Care Wireless Team Member Name Role Phone Celio Sanders MD Primary Care Provider [phone] Encounter Details Date Type Department Care Team (Late st Contact Info) Description 01/16/2021 11:00 AM EST Office Visit Hematology/Oncology at [address] [phone] Remy Barillas MD [facility] [place] [address] Swathi Uriostegui APRN [address] [place] [address] DR HEMATOLOGY ONCOLOGY [place], [place] [phone] Malignant neoplasm of prostate; Vitamin D deficiency [...] 5/12 cores (all on right side), T2b, Como 8 Darlyn-neural invasion present PSA - 47.5 [...] negative 9. 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 This result is consistent with a diagnosis [...] BRCA2, BRIP1, CDH1, CDK4, CDKN2A (p14ARF), CDKN2A (z85PIN5p), CHEK2, CTNNA1, DICER1, EPCAM (EPCAM: Deletion/duplication testing [...] the AXIN2 and CTNNA1 genes, specifically c.1531A>T (p.Yvb646Mxe) and c.515A>T (p.Icr764Jcv), were detected. ? Interpretation: The most significant consequences of carrying a pathogenic variant in BRCA2 are increased risks forbreast cancer and ovarian cancer in women. For men, the most significant consequence is for prostate cancer so this finding is felt to be related to Nain's cancer. Other cancers associated with GSGT8wjl breast cancer in men, pancreatic, and melanoma. [...] ?? Nain's sons live in [place] and [place]. They can go to the website of [...] the gene with no increased cancer risks. [facility] is continually collecting and analyzing their data, [...] and mailing address stay updated in the [facility] system, in order for us [...] in the future, Dr. Ara Mary, a ct scan tech at [facility] [place], is willing to discuss these screening options with Nain. Nain can schedule an appointment with her by reaching her confidential secretary at [phone]. ?? Prostate Cancer Screening for Nain's sons [...] Periodic colonoscopy screening as recommended by Nain's ct scan tech. ?? HPI Nain Mckeon is seen in [...] saw him. Soc Hx: , lives in [place], [place]. He goes to [place] from December to June. 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 Como score was 8 in two of the [...] 2:00 PM EST Office Visit Dermatology at [address] [place] [address] Prisca Hughes MD [facility] DR [place] [address] 02/07/2024 1:30 PM EST Office Visit Hematology/Oncology at [address] [phone] Harjinder Snyder MD [facility] [place] [address] Bisi Cheng APRN [facility] [place] [place] [address] documented as of this encounter Visit Diagnoses Diagnosis Malignant neoplasm of prostate Vitamin D deficiency Unspecified vitamin D deficiency documented in this encounter Care Teams Wireless Team Member Relationship Specialty Start Date End Date Celio Sanders MD [address] [place] [address] PCP - General Internal Medicine 05/19/16 documented as of this encounter
--- OUTSIDE RECORDS SUMMARY | 2024-01-19 16:14 | XMS_ITS | Encounter Summary ---
[place] [address] Care Team Providers Care Architect Naval Name Role Phone Celio Sanders MD Primary Care Provider [phone] Reason for Visit * Reason Comments Injections Lupron * Treatment/Therapy Plan Authorization (Routine) - Closed Specialty Diagnoses / Procedures Referred By Contac t Referred To Contact Diagnoses Prostate cancer metastatic to intrapelvic lymph node Gael Anderson MD [address] [place] [address] [facility] Hem Onc Office [address] [place] [phone] Referral ID Status Reason Start Date Expiration Date Visits Re quested Visits Authorized [id number] Closed 11/15/2017 11/15/2018 1 1 Encounter Details Date Type Department Care Team (Late st Contact Info) Description 11/15/2017 3:00 PM EDT Infusion Hematology Oncology at [address] [phone] Prostate cancer metastatic to intrapelvic [...] 2:00 PM EST Office Visit Dermatology at [place] [address] [place] [address] Prisca Hughes MD [facility] DR PHOEBE [place] [address] 02/07/2024 1:30 PM EST Office Visit Hematology/Oncology at [address] [phone] Harjinder Snyder MD [facility] DR HEMATOLOGY [place] [address] Bisi Cheng APRN [facility] [place] [address] documented as of this encounter Visit Diagnoses [...] Gluteal documented in this encounter Care Teams Architect Naval Relationship Specialty Start Date End Date Celio Sanders MD [address] [place] [address] PCP - General Internal Medicine 05/19/16 documented as of this encounter
--- OUTSIDE RECORDS SUMMARY | 2024-01-19 16:14 | XMS_ITS | Encounter Summary ---
Author Organization [facility] Address [facility] [place] [address] Care Team Providers Care Scroll Shear Operator Name Role Phone Celio Sanders MD Primary Care Provider [phone] Encounter Details Date Type Department Care Team (Late st Contact Info) Description 04/04/2020 2:30 PM EST Office Visit Hematology/Oncology at [address] [phone] Remy Barillas MD [facility] [place] [address] Swathi Uriostegui APRN [address] [place] [address] DR HEMATOLOGY ONCOLOGY [place], [place] [phone] Prostate cancer metastatic to intrapelvic lymph node [...] this encounter Progress Notes * Swathi Uriostegui, FINISHING TRIMMER - 04/04/2020 2:30 PM EST Subjective: Patient [...] 5/12 cores (all on right side), T2b, Bly 8 Darlyn-neural invasion present PSA - 47.5 [...] a pathogenic variant (mutation) in BRCA2 specifically c.1929del(p.Szk048Obxrq15). 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 At the time of the appointment,??Tasiawas provided with a printed copy of his??test result and an informational packet addressing a positive test result. ?? The following??47??genes were evaluated for sequence changes and exonic deletions/duplications: APC, RUMA, AXIN2, BARD1, BMPR1A, BRCA1, BRCA2, BRIP1, CDH1, CDK4, CDKN2A (p14ARF), CDKN2A (k31NVD3l), CHEK2, CTNNA1, DICER1, EPCAM (EPCAM: Deletion/duplication testing [...] (VUS) in the AXIN2 and CTNNA1??genes, specifically c.1531A>T(p.Hzt261Cqh) and c.515A>T (p.Glv885Hvo), were??detected. ? Interpretation: The most significant consequences [...] ?? Nain's sons live in [place] and [place]. ??They can go to the website of [...] and mailing address stay updated in the [facility] system, in order for us to [...] possibility in the future,??Dr. Ara Mary, a stencil cutter machine at [facility] in [place], is willing to discuss these screening options with Nain.??Nain??can schedule an appointment with her by reaching her paralegal legal secretary at [phone]. ?? Prostate Cancer Screening for Nain's sons ? Prostate cancer screening starting at age 40.?If either of them is found to not have the BRCA2 mutation then they can consider screening beginning at age 50 which is the recommendation for menin the general population ?? Skin cancer screening ?? Periodic skin exams ?? Colon cancer screening ?? Periodic colonoscopy screening as recommended by??Nain's stencil cutter machine. ?. ??SUMMARY ASSESSMENT/PLAN 07/24 He was diagnosed [...] PSA. ? Soc Hx: , lives in [place], [place]. He goes to [place] from December to June. 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 Fam Hx: Father with prostate cancer [...] returns to the [facility] oncology clinic in [facility] today for follow up surveillance [...] internal iliac LN. Nain returns to the [facility] oncology clinic in [facility] today for followup surveillance visit [...] 2:00 PM EST Office Visit Dermatology at [address] [place] [address] Prisca Hughes MD [facility] DR PHOE[place] [address] 02/07/2024 1:30 PM EST Office Visit Hematology/Oncology at [address] [phone] Harjinder Snyder MD [facility] [place] [address] Bisi Cheng APRN [facility] [place] [place] [address] documented as of this encounter Visit Diagnoses Diagnosis Prostate cancer metastatic to intrapelvic lymph node documented in this encounter Care Teams Scroll Shear Operator Relationship Specialty Start Date End Date Celio Sanders MD [address] [place] [address] PCP - General Internal Medicine 05/19/16 documented as of this encounter
--- OUTSIDE RECORDS SUMMARY | 2024-01-19 16:14 | XMS_ITS | Encounter Summary ---
Author Organization [facility] Address [facility] KRISS Suárez [address] Care Team Providers Care Reproduction Production Manager Name Role Phone Celio Sanders MD Primary Care Provider [phone] Reason for Visit * Reason Comments Injections Lupron Encounter Details Date Type Department Care Team (Late Contact Info) Description 08/23/2017 3:30 PM EDT Infusion Hematology Oncology at [address] [phone] Neoplasm of prostate regional lymph [...] [facility] [address] [place] [address] Prisca Hughes MD [facility] [place] [address] 02/07/2024 1:30 PM EST Office Visit Hematology/Oncology at [address] [phone] Harjinder Snyder MD [facility] HEMATOLOGY [place] [address] Bisi Cheng APRN [facility] [place] [address] documented as of this encounter Visit Diagnoses [...] Gluteal documented in this encounter Care Teams Reproduction Production Manager Relationship Specialty Start Date End Date Celio Sanders MD [address] [place] [address] PCP - General Internal Medicine 05/19/16 documented as of this encounter
--- OUTSIDE RECORDS SUMMARY | 2024-01-19 16:14 | XMS_ITS | Encounter Summary ---
Author Organization [facility] Address [facility] [place] [address] Care Team Providers Care Pet Stylist Name Role Phone Celio Sanders MD Primary Care Provider [phone] Encounter Details Date Type Department Care Team (Late st Contact Info) Description 10/20/2020 9:30 AM EDT Office Visit Hematology/Oncology at [address] [phone] Swathi Uriostegui APRN [address] [place] [address] DR HEMATOLOGY ONCOLOGY [place], [place] [id number] Prostate cancer metastatic to intrapelvic lymph node; [...] this encounter Progress Notes * Swathi Uriostegui, SUPERVISOR GRADING - 10/20/2020 9:30 AM EDT Subjective: Patient [...] a pathogenic variant (mutation) in BRCA2 specifically c.1929del(p.[id number]). 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 At the time of the appointment,??Tasiawas provided with a printed copy of his??test result and an informational packet addressing a positive test result. ?? The following??47??genes were evaluated for sequence changes and exonic deletions/duplications: APC, RUMA, AXIN2, BARD1, BMPR1A, BRCA1, BRCA2, BRIP1, CDH1, CDK4, CDKN2A (p14ARF), CDKN2A (i99HJF8x), CHEK2, CTNNA1, DICER1, EPCAM (EPCAM: Deletion/duplication testing [...] (VUS) in the AXIN2 and CTNNA1??genes, specifically c.1531A>T(p.Dhq549Sao) and c.515A>T (p.Qvc812Osl), were??detected. ? Interpretation: The most significant consequences [...] with them. ?? Nain's sons live in [place] and [place]. ??They can go to [...] and mailing address stay updated in the [facility], in order for us to [...] possibility in the future,??Dr. Ara Mary, a chimney builder brick at [facility] in [place], is willing to discuss these screening options with Nain.??Nain??can schedule an appointment with her by reaching her trade union secretary at [phone]. ?? Prostate Cancer Screening for Nain's sons ? Prostate cancer screening starting at age 40.?If either of them is found to not have the BRCA2 mutation then they can consider screening beginning at age 50 which is the recommendation for menin the general population ?? Skin cancer screening ?? Periodic skin exams ?? Colon cancer screening ?? Periodic colonoscopy screening as recommended by??Nain's chimney builder brick. ?. ??SUMMARY ASSESSMENT/PLAN 07/24 He was diagnosed with prostate cancer in 2017 after presenting with hematuria and found to have an abnormal prostate gland on exam. TRUS prostate bx showed adenocarcinoma in 5/12 cores, all on the right. Concord score was 8 in two of the [...] PSA. ? Soc Hx: , lives in [place], [place]. He goes to [place] from December to June. 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 Fam Hx: Father with prostate [...] as summarized above.) Nain returns to the [facility] [address] [place] [address] Prisca Hughes MD [facility] DR [place] [address] 02/07/2024 1:30 PM EST Office Visit Hematology/Oncology at [address] [phone] Harjinder Snyder MD [facility] DR [place] [address] Bisi Cheng APRN [facility] [place] [address] documented as of this encounter Visit Diagnoses Diagnosis 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
--- OUTSIDE RECORDS SUMMARY | 2024-01-19 16:15 | XMS_ITS | Encounter Summary ---
Author Organization [facility] Address [facility] [place] [address] Care Team Providers Care Telemetry Technician Name Role Phone Celio Sanders MD Primary Care Provider [phone] Reason for Visit * Reason Comments Follow-up Encounter Details Date Type Department Care Team (Late st Contact Info) Description 07/26/2017 3:30 PM EDT Office Visit Hematology/Oncology at [address] [phone] Harjinder Snyder MD [facility] [place] [address] Malignant neoplasm of prostate; Neoplasm of prostate [...] Curran performed ultrasound-guided prostate biopsy that showed Quinby 4+4 disease in 2 cores and Andre [...] on prostate cancer. [place]ologist in [place] initiated abiraterone 250 mg daily with low-fat diet and prednisone 5 mg a day about 4 weeks ago. Nain feels that his bipolar disorder is [id number], buthe follows with therapist on that matter. [...] of education: N/A Occupational History ??? 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 A - Prostatic core [...] medial: ? 1. Adenocarcinoma, grade group 4, Quinby grade 4+4, ?involving 40% of the biopsy core. ? 2. Perineural invasion identified. E - Prostatic core needle biopsy, right lateral apex: ? Benign prostatic tissue. F - Prostatic core needle biopsy, right medial apex: ? Adenocarcinoma, grade group 3, Quinby grade 3+4, ? involving 25% of the [...] Prostate adenocarcinoma, PSA 47.5, Andre 4+4=8/10, Stage [id number]. Treatment: - 05/31/16 Lupron 22.5 and bicalutamide [...] Oncology 36, no. 14 (Jul 14 2017) [id number]). He is concerned that prednisone is contributing [...] PM EST Office Visit Dermatology at [address] [phone] Prisca Hughes MD [facility] DR [place] [address] 02/07/2024 1:30 PM EST Office Visit Hematology/Oncology at [address] [phone] Harjinder Snyder MD [facility] [place] [address] Bisi Cheng APRN [facility] [place] [address] documented as of this encounter Visit Diagnoses Diagnosis Malignant neoplasm of prostate 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 documented in this encounter Care Teams Telemetry Technician Relationship Specialty Start Date End Date Celio Sanders MD [address] [place] [address] PCP - General Internal Medicine 05/19/16 documented as of this encounter
--- OUTSIDE RECORDS SUMMARY | 2024-01-19 16:15 | XMS_ITS | Encounter Summary ---
Author Organization [facility] [place] [address] Care Team Providers Care Safety Technician Name Role Phone Celio Sanders MD Primary Care Provider Reason for Visit * Reason Comments On Treatment Visit Encounter Details Date Type Department Care Team (Late st Contact Info) Description 09/10/2016 7:30 AM EDT Office [place] [phone] Ronnie Vazquez MD [address] [place] [address] DR RADIATION ONCOLOGY [place], [place] [id number] Cancer of prostate with high recurrence risk [...] Note 09/10/16 Ronnie Vazquez MD Radiation Oncology [facility] [phone] (paging grinding mill operator) PATIENT IDENTIFICATION NAME: Nain Mckeon DATE [...] PM EST Office Visit Dermatology at [address] [place] [address] Prisca Hughes MD [facility] DR [place] [address] 02/07/2024 1:30 PM EST Office Visit Hematology/Oncology at [address] [phone] Harjinder Snyder MD [facility] DR [place] [address] Bisi Cheng APRN [facility] [place] [address] documented as of this encounter Visit Diagnoses Diagnosis Cancer of prostate with high recurrence risk (stage T3a or Orrington 8-10 or PSA > 20) Malignant neoplasm of prostate documented in this encounter Care Teams Safety Technician Relationship Specialty Start Date End Date Celio Sanders MD [address] [place] [address] PCP - General Internal Medicine 05/19/16 documented as of this encounter
--- OUTSIDE RECORDS SUMMARY | 2024-01-19 16:15 | XMS_ITS | Encounter Summary ---
Author Organization [facility] Address [facility] [place] [address] Care Team Providers Care Senior Revenue Accountant Name Role Phone Celio Sanders MD Primary Care Provider [phone] Encounter Details Date Type Department Care Team (Late st Contact Info) Description 10/15/2016 12:00 PM EDT Infusion Hematology Oncology at [address] [phone] Malignant neoplasm of prostate Social History Tobacco [...] 12:00 PM EDT Radiation Oncology Nurse Note [place], [place] 10/15/16 11:25 AM Patient states that [...] is not relieved after 8 tabs. Call: [phone] [facility] ([facility]) weekend/holidays: call [facility] ask for the school lunch monitor Radiation Oncologist He states that he is [...] PM EST Office Visit [address]ology [address] [place] [address] Prisca Hughes MD [facility] DR PHOE[place] [address] 02/07/2024 1:30 PM EST Office Visit Hematology/Oncology at [address] [phone] Harjinder Snyder MD [facility] DR [place] [address] Bisi Cheng APRN [facility] [place] [address] documented as of this encounter Visit Diagnoses [...] mg documented in this encounter Care Teams Senior Revenue Accountant Relationship Specialty Start Date End Date Celio Sanders MD [address] [place] [address] PCP - General Internal Medicine 05/19/16 documented as of this encounter
--- OUTSIDE RECORDS SUMMARY | 2024-01-19 16:15 | XMS_ITS | Encounter Summary ---
Author Organization [facility] Address [facility] [place] [address] Care Team Providers Care Associate Relations Specialist Name Role Phone Celio Sanders MD Primary Care Provider [phone] Encounter Details Date Type Department Care Team (Late st Contact Info) Description 08/03/2016 1:32 PM EDT Anesthesia Event [place] [address] Audie Frances MD [facility] [place] [address] Anesthesia Record Procedure Summary Procedure Name Responsible [...] 1201; median cubital vein (antecubital fossa), right; ikma-mtw-[id number] catheter system; 20 gauge, 3/4 in length; [...] Frances MD - 08/03/2016 5:49 PM EDT [facility] Department of Anesthesiology Post-procedure Note Patient: Nain Mckeon Procedure Summary Date Anesthesia Start Anesthesia Stop Room / Location 08/03/16 1332 1514 [facility] MINOR SURGERY / [facility] MAIN OR Procedure Diagnosis Surgeon Responsible Provider PROSTATE IMPLANT GOLD COIL PROCEDURE (WRVU 13.46) (N/A Perineum) (PROSTATE CA GOLD COIL IMPLANT/ MINOR OR) Matthew Pelaez MD Nguyen, Tung T, MD All Anesthesia Providers: Anesthesiologist: Audie Frances MD POACHER WRINGER OPERATOR: Rama Valdez CRNA Last (1hr) Vitals: BP Temp Pulse Resp SpO2 Patient Location: PACU/[facility] Level of Consciousness: Awake and Alert Pain [...] 2:00 PM EST Office Visit Dermatology [place] [address] [place] [address] Prisca Hughes MD [facility] DR PH[place] [address] 02/07/2024 1:30 PM EST Office Visit Hematology/Oncology at [address] [phone] Harjinder Snyder MD [facility] DR HEMATOLOGY [place] [address] Bisi hCeng APRN [facility] [place] [address] documented as of this encounter Visit Diagnoses [...] mL (2 %) injection PRN, Starting on 08/03/16 at 1341, Until 08/03/16 at 1518, Anesthesia Intra-op, Routine Given 08/03/2016 1:41 PM EDT 50 mg propofol (DIPRIVAN) 10 mg/mL bolus injection (Anesthesia) PRN, Starting on 08/03/16 at 1341, Until 08/03/16 at 1518, Anesthesia Intra-op Given 08/03/2016 1:41 PM EDT 50 mg propofol (DIPRIVAN) infusion CONTINUOUS PRN, Starting on 08/03/16 at 1341, Until Tu08/03/16 at 1518, Anesthesia Intra-op, Routine Rate/Dose Change 08/03/2016 2:47 PM EDT 100 mcg/kg/min 49.2 mL/hr Rate/Dose Change 08/03/2016 1:59 PM EDT 125 mcg/kg/min 61. 5 mL/hr New Bag 08/03/2016 1:41 PM EDT 150 mcg/kg/min 73.8 mL/h r documented in this encounter Care Teams Associate Relations Specialist Relationship Specialty Start Date End Date Celio Sanders MD [address] [place] [address] PCP - General Internal Medicine 05/19/16 documented as of this encounter
--- OUTSIDE RECORDS SUMMARY | 2024-01-19 16:15 | XMS_ITS | Encounter Summary ---
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 Greater than 5500 mg/L (0.55%) is usually fatal. Blood specimen (specimen) 08/06/2017 3:10 AM EDT 08/06/2017 3:23 AM EDT Narrative Resulting Agency Comment Spec In Lab Mitra Gaviria MD CHEMISTRY ORDERABLES Performing Organization Address [facility] Co de Phone Number [facility] [place] [address] * (ABNORMAL) TSH (08/06/2017 3:10 AM EDT) Thyroid Stimulating Hormone 4.60(H) 0.27 - 4.20 mlU/ML [facility] Blood specimen (specimen) 08/06/2017 3:10 AM EDT 08/06/2017 3:23 AM EDT Narrative Resulting Agency Comment Spec In Lab Mitra Gaviria MD CHEMISTRY ORDERABLES [facility] [place] [address] * Basic Metabolic Panel (non-fasting) (08/06/2017 3:10 AM EDT) Glucose 95 65 - 199 mg/dL [facility] Comment:Diabetes: >=200 mg/d L plus symptoms Blood Urea Nitrogen 20 10 - 20 mg/dL [facility] Creatinine 0.93 0.80 - 1.50 mg/dL [facility] Sodium 143 135 - 145 mmol/L [facility] Potassium 3.7 3.5 - 5.0 mmol/L [facility] Comment: Please note: ??Patients with WBC >100,000 may have falsely elevated Potassium levels. ??For accurate Potassium quantification in these patients send serum separator tube (gold top) for subsequent determinations. ??Contact the Clinical Chemistry Laboratory if there are any questions. Chloride 100 98 - 107 mmol/L [facility] Carbon Dioxide 31 22 - 31 mmol/L [facility] Anion Gap 12 5 - 15 mmol/L [facility] Calcium 9.5 8.5 - 10.5 mg/dL [facility] Est Glomerular Filtration Rate >60 >=60 [facility] Comment: The reported eGFR should be multiplied by 1.2 for patients. The MDRD is not an appropriate measure of renal function for patients with body mass extremes or in patients with acute kidney failure. http://[employer]/DHnkdep http://[employer]/DHMCnkf Blood specimen (specimen) 08/06/2017 3:10 AM EDT 08/06/2017 3:23 AM EDT Narrative Resulting Agency Comment Spec In Lab Mitra Gaviria MD CHEMISTRY ORDERABLES [facility] [place] [address] documented in this encounter Visit Diagnoses Diagnosis Delirium Other alteration of consciousness Malignant neoplasm of prostate Bipolar II disorder Other bipolar disorders penitentiary current use of systemic steroids Encounter for [...] Routine 1652 (Given - Provid er: Aileen Rubi, VANNA) OLANZapine zydis (ZyPREXA) disintegrating tablet 5 mg 5 mg, Oral, NIGHTLY, First dose on 08/06/17 at 2100, Until Discontinued, Routine tamsulosin (FLOMAX) ER capsule 0.4 mg 0.4 mg, Oral, DAILY, First dose on 08/06/17 at 0900, Until Discontinued, DO NOT CRUSH OR OPEN, Routine 0859 (Given - Provid er: Aileen Rubi RN) documented in this encounter Care Teams Account Manager Sales Representative Relationship Specialty Start Date End Date Celio Sanders MD [address] [place] [address] PCP - General Internal Medicine 05/19/16 documented as of this encounter
--- OUTSIDE RECORDS SUMMARY | 2024-01-19 16:15 | XMS_ITS | Encounter Summary ---
Author Organization [facility] Address [facility] [place] [address] Care Team Providers Care Loader Engineer Name Role Phone Celio Sanders MD Primary Care Provider [phone] Encounter Details Date Type Department Care Team (Late st Contact Info) Description 12/21/2016 Telephone [place] [phone] Nicky Marcelo Social History Tobacco Use Types [...] [facility] [address] [place] [address] Prisca Hughes MD [facility] [address] [place] [address] 02/07/2024 1:30 PM EST Office Visit Hematology/Oncology at [address] [phone] Harjinder Snyder MD [facility] [place] [address] Bisi Cheng APRN [facility] [place] [address] documented as of this encounter Visit Diagnoses Not on filedocumented in this encounter Care Teams Loader Engineer Relationship Specialty Start Date End Date Celio Sanders MD [address] [place] [address] PCP - General Internal Medicine 05/19/16 documented as of this encounter
--- OUTSIDE RECORDS SUMMARY | 2024-01-19 16:15 | XMS_ITS | Encounter Summary ---
Author Organization [facility] [place] [address] Care Team Providers Care Tire Assembler Name Role Phone Celio Sanders MD Primary Care Provider [phone] Encounter Details Date Type Department Care Team (Late st Contact Info) Description 07/29/2016 Telephone [place] [phone] Nicky Marcelo Social History Tobacco Use Types [...] Visit Dermatology at [facility] [address] [place] [address] Prisca Hughes MD [facility] DR PHOEBE [place] [address] 02/07/2024 1:30 PM EST Office Visit Hematology/Oncology at [address] [address] Harjinder Snyder MD [facility] DR HEMATOLOG[place] [address] Bisi Cheng APRN [facility] [place] [address] documented as of this encounter Visit Diagnoses Not on filedocumented in this encounter Care Teams Tire Assembler Relationship Specialty Start Date End Date Celio Sanders MD [address] [place] [address] PCP - General Internal Medicine 05/19/16 documented as of this encounter
--- OUTSIDE RECORDS SUMMARY | 2024-01-19 16:15 | XMS_ITS | Encounter Summary ---
[place] [address] Care Team Providers Care Mainspring Former Arbor End Name Role Phone Celio Sanders MD Primary Care Provider [phone] Encounter Details Date Type Department Care Team (Late Contact Info) Description 08/04/2016 Telephone [place] [phone] Lisa Samuels Social History Tobacco Use Types [...] Dermatology at [facility] [address] [place] [address] Prisca Hughes MD [facility] DR PHOEBE [place] [address] 02/07/2024 1:30 PM EST Office Visit Hematology/Oncology at [address] [phone] Harjinder Snyder MD [facility] DR HEMATOLOGY [place] [address] Bisi Cheng APRN [facility] [place] [address] documented as of this encounter Visit Diagnoses Not on filedocumented in this encounter Care Teams Mainspring Former Arbor End Relationship Specialty Start Date End Date Celio Sanders MD [address] [place] [address] PCP - General Internal Medicine 05/19/16 documented as of this encounter
--- OUTSIDE RECORDS SUMMARY | 2024-01-19 16:15 | XMS_ITS | Encounter Summary ---
Author Organization [facility] Address [facility] [place] [address] Care Team Providers Care Batch Freezer Operator Name Role Phone Celio Sanders MD Primary Care Provider Encounter Details Date Type Department Care Team (Late Contact Info) Description 08/04/2016 Orders Only [place]iation [place] [phone] Matthew Pelaez MD Neoplasm of prostate regional lymph node staging [...] 2:00 PM EST Office Visit Dermatology at [place] [address] [place] [address] Prisca Hughes MD [facility] DR PHOEBE IBARRA-[place] [address] 02/07/2024 1:30 PM EST Office Visit Hematology/Oncology at [address] [address] Harjinder Snyder MD [facility] HEMATOLOGY [place] [address] Bisi Cheng APRN [facility] DR MEDICAL ONCOLOGY [place], [place] [address] documented as of this encounter Visit Diagnoses Diagnosis 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
--- OUTSIDE RECORDS SUMMARY | 2024-01-19 16:15 | XMS_ITS | Encounter Summary ---
Author Organization [facility] Address [facility] [address] Care Team Providers Care Staff Reporter Name Role Phone Celio Sanders MD Primary Care Provider [phone] Encounter Details Date Type Department Care Team (Late st Contact Info) Description 10/18/2016 Telephone Radiation Oncology at [address] [phone] Atla Rowland RN Social History Tobacco Use Types [...] PM EDT Radiation Oncology Nurse Telephone Note [facility] [place] [place] Patient calls c/o mild nausea. He [...] PM EST Office Visit Dermatology at [facility] [address] [place] [address] Prisca Hughes MD [facility] [place] [address] 02/07/2024 1:30 PM EST Office Visit Hematology/Oncology at [address] [address] Harjinder Snyder MD [facility] DR HEMATOLOGY [place] [address] Bisi Cheng APRN [facility] [place] [address] documented as of this encounter Visit Diagnoses Diagnosis Malignant neoplasm of prostate documented in this encounter Care Teams Staff Reporter Relationship Specialty Start Date End Date Celio Sanders MD [address] [place] [address] PCP - General Internal Medicine 05/19/16 documented as of this encounter
--- OUTSIDE RECORDS SUMMARY | 2024-01-19 16:15 | XMS_ITS | Encounter Summary ---
Author Organization [facility] [place] [address] Care Team Providers Care Finance Administrator Name Role Phone Celio Sanders MD Primary Care Provider Encounter Details Date Type Department Care Team (Late st Contact Info) Description 10/28/2016 Notes Only Radiation Oncology at [address] [phone] Ronnie Vazquez MD [address] [place] [address] DR RADIATION ONCOLOGY [place], [place] [id number] Social History Tobacco Use Types Packs/Day Years [...] to his pelvis and prostate at the [place], [place]. Details of his radiation treatment course [...] FOLLOWUP: Follow-up visit with Radiation Oncology in [facility] is scheduled for 11/18/16for clinical symptom check; he has received instructions to call this office or seek the help of the local emergency room if any further problems should arise prior to followup. documented in this encounter Plan of Treatment Upcoming Encounters Date Type Department Care Team (Late st Contact Info) Description 01/24/2024 2:00 PM EST Office Visit Dermatology at [address] [address] Prisca Hughes MD [facility] DR [place] [address] 02/07/2024 1:30 PM EST Office Visit Hematology/Oncology at [address] [phone] Harjinder Snyder MD [facility] [place] [address] Bisi Cheng APRN [facility] [place] [address] documented as of this encounter Visit Diagnoses Not on filedocumented in this encounter Care Teams Finance Administrator Relationship Specialty Start Date End Date Celio Sanders MD [address] [place] [address] PCP - General Internal Medicine 05/19/16 documented as of this encounter
--- OUTSIDE RECORDS SUMMARY | 2024-01-19 16:15 | XMS_ITS | Encounter Summary ---
Author Organization [facility] [place] [address] Care Team Providers Care Armhole Baster Jumpbasting Name Role Phone Celio Sanders MD Primary Care Provider [phone] Reason for Referral * Consultation (Routine) - Specialty Diagnoses / Procedures Referred By Contac t Referred To Contact Diagnoses Cancer of prostate with high recurrence risk (stage T3a or Andre 8-10 or PSA > 20) Ronnie Vazquez MD [address] [place] [address] [place] [address] Referral ID Status Reason Start Date Expiration Date V isits Requested Visits Authorized [id number] Consult, Test & Treat 11/19/2016 05/18/2017 1 1 Encounter Details Date Type Department Care Team (Late st Contact Info) Description 11/18/2016 10:00 AM EDT Office Visit Radiation Oncology at [address] [phone] Ronnie Vazquez MD [address] [place] [address] [place] [address] Cancer of prostate with high recurrence risk (stage T3a or [place] 8-10 or PSA > 20) Social History [...] Note 11/18/16 Ronnie Vazquez MD Radiation Oncology [facility] [phone] (paging video camera operator) PATIENT IDENTIFICATION NAME: Nain Mckeon DATE [...] back to normal. Plans to drive to [place], [place] with his and dog in the [...] from radiotherapy. Plan: He will be in [place] for next few months and would like to establish care with an oncologist there locally. We will contact [facility] ( ) to make a referral for [...] PM EST Office Visit [address]ermatology at [address] [place] [address] Prisca Hughes MD [facility] DR PHOEBE [place] [address] 02/07/2024 1:30 PM EST Office Visit Hematology/Oncology at [address] [phone] Harjinder Snyder MD [facility] HEMATOLOGY [place] [address] Bisi Cheng APRN [facility] [place] [address] Scheduled Referrals Name Type Priority Associated Diagnoses Orde r Schedule Referral to Radiation Oncology Outpatient Referral Routine Cancer of prostate with high recurrence risk (stage T3a or Andre 8-10 or PSA > 20) Ordered: 11/19/2016 documented as of this encounter Visit Diagnoses Diagnosis Cancer of prostate with high recurrence risk (stage T3a or [place] 8-10 or PSA > 20) Malignant neoplasm of prostate documented in this encounter Care Teams Armhole Baster Jumpbasting Relationship Specialty Start Date End Date Celio Sanders MD [address] [place] [address] PCP - General Internal Medicine 05/19/16 documented as of this encounter
--- OUTSIDE RECORDS SUMMARY | 2024-01-19 16:15 | XMS_ITS | Encounter Summary ---
Author Organization [facility] Address [facility] [place] [address] Care Team Providers Care Principle Software Engineer Name Role Phone Celio Sanders MD Primary Care Provider [phone] Encounter Details Date Type Department Care Team (Late st Contact Info) Description 07/16/2016 Telephone [place] [phone] Nicky Marcelo Social History Tobacco Use Types [...] [facility] [address] [place] [phone] Prisca Hughes MD [facility] DR PHOEBE [place] [address] 02/07/2024 1:30 PM EST Office Visit Hematology/Oncology at [address] [address] Harjinder Snyder MD [facility] DR H[place] [address] Bisi Cheng APRN [facility] [place] [address] documented as of this encounter Visit Diagnoses Not on filedocumented in this encounter Care Teams Principle Software Engineer Relationship Specialty Start Date End Date Celio Sanders MD [address] [place] [address] PCP - General Internal Medicine 05/19/16 documented as of this encounter
--- OUTSIDE RECORDS SUMMARY | 2024-01-19 16:15 | XMS_ITS | Encounter Summary ---
Author Organization [facility] Address [facility] [place] [address] Care Team Providers Care Mixed Crop And Livestock Farmer Name Role Phone Celio Sanders MD Primary Care Provider [phone] Reason for Visit * Reason Onset Date Comments Medication Refill 09/24/2016 Encounter Details Date Type Department Care Team (Late Contact Info) Description 09/24/2016 Refill Radiation Oncology at [address] [phone] Alta Rowland, RN Malignant neoplasm [...] 2:00 PM EST Office Visit Dermatology at [address] [place] [address] Prisca Hughes MD [facility] DR PHOE[place] [address] 02/07/2024 1:30 PM EST Office Visit Hematology/Oncology at [address] [phone] Harjinder Snyder MD [facility] [place] [address] Bisi Cheng APRN [facility] [place] [address] documented as of this encounter Visit Diagnoses Diagnosis Malignant neoplasm of prostate- Primary documented in this encounter Care Teams Mixed Crop And Livestock Farmer Relationship Specialty Start Date End Date Celio Sanders MD [address] [place] [address] PCP - General Internal Medicine 05/19/16 documented as of this encounter
--- OUTSIDE RECORDS SUMMARY | 2024-01-19 16:15 | XMS_ITS | Encounter Summary ---
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 Procedures MRI Pelvis Soft Tissue (Gi Gu Manager Content)WO Contrast Matthew Pelaez MD [facility] [place] [address] [place] [address] Referral ID Status Reason Start Date Expiration [...] Procedures MRI Pelvis Soft Tissue (Gi Gu Manager Content)WO Contrast Matthew Pelaez MD [facility] [place] [address] [place] [address] Referral ID Status Reason Start Date Expiration Date V isits Requested Visits Authorized [id number] Closed Specialty Service Requested 07/09/2016 07/09/2017 1 1 Encounter Details Date Type Department Care Team (Latest Contact Info) Description 08/13/2016 1:41 PM EDT - 08/13/2016 11:59 PM EDT Hospital [place] [address] Matthew Pelaez MD Neoplasm of prostate regional [...] PM EST Office Visit Dermatology at [address] [address] Prisca Hughes MD [facility] DR [place] [address] 02/07/2024 1:30 PM EST Office Visit Hematology/Oncology at [address] [phone] Harjinder Snyder MD [facility] [place] [address] Bisi Cheng APRN [facility] [place] [address] documented as of this encounter Procedures Procedure Name Priority Date/Time Associated Diagnosis Comments MRI PELVIS SOFT TISSUE (GI DEEP WELL CONTRACTOR) WO CONTRAST Routine 08/13/2016 5:02 PM EDT 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 documented in this encounter Results * MRI Pelvis Soft Tissue (Gi Gu Manager Content)WO Contrast (08/13/2016 5:02 PM EDT) Anatomical Region [...] EDT EXAMINATION: MRI PELVIS SOFT TISSUE (GI DEEP WELL CONTRACTOR) WO CONTRAST CLINICAL HISTORY: Prostate cancer for [...] 08/15/2016 EXAMINATION: MRI PELVIS SOFT TISSUE (GI DEEP WELL CONTRACTOR) WO CONTRAST CLINICAL HISTORY: Prostate cancer for [...] nodes documented in this encounter Care Teams Women'S Garment Fitter Relationship Specialty Start Date End Date Celio Sanders MD [address] [place] [address] PCP - General Internal Medicine 05/19/16 documented as of this encounter
--- OUTSIDE RECORDS SUMMARY | 2024-01-19 16:15 | XMS_ITS | Encounter Summary ---
[place] [address] Care Team Providers Care Insurance Claims Supervisor Name Role Phone Celio Sanders MD Primary Care Provider [phone] Reason for Visit * Reason Comments Follow-up Encounter Details Date Type Department Care Team (Late st Contact Info) Description 07/22/2016 11:00 AM EDT Office [place] [phone] Matthew Pelaez MD Neoplasm of prostate regional [...] Prescriptions to get filled and things to draft roller picker from the pharmacy: Two Saline Enemas -These [...] riding on anything that bounces such as online merchandiser, ATV, horse back riding or motorcycle riding [...] gentleman with high-risk prostate cancer, PSA 47.5, [place] 4+4=8/10, Stage [id number]. 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
--- OUTSIDE RECORDS SUMMARY | 2024-01-19 16:15 | XMS_ITS | Encounter Summary ---
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 Procedures MRI Pelvis Soft Tissue (Gi Gu Household Chores)WO Contrast Matthew Pelaez MD [facility] [place] [address] [place] [address] Referral ID Status Reason Start Date Expiration Date V isits Requested Visits Authorized [id number] Closed Specialty Service Requested 07/09/2016 07/09/2017 1 1 Encounter Details Date Type Department Care Team (Late st Contact Info) Description 07/09/2016 Orders Only [place] [phone] Matthew Pelaez MD Neoplasm of prostate regional [...] 2:00 PM EST Office Visit Dermatology at [facility] [address] [place] [address] Prisca Hughes MD [facility] [address] [place] [address] 02/07/2024 1:30 PM EST Office Visit Hematology/Oncology at [address] [address] Harjinder Snyder MD [facility] [place] [address] Bisi Cheng APRN [facility] [place] [place] [address] documented as of this encounter Results * MRI Pelvis Soft Tissue (Gi Gu Household Chores)WO Contrast (08/13/2016 5:02 PM EDT) Anatomical Region [...] EDT EXAMINATION: MRI PELVIS SOFT TISSUE (GI PRICE CHECKER) WO CONTRAST CLINICAL HISTORY: Prostate cancer for [...] 08/15/2016 EXAMINATION: MRI PELVIS SOFT TISSUE (GI PRICE CHECKER) WO CONTRAST CLINICAL HISTORY: Prostate cancer for [...] nodes documented in this encounter Care Teams Process Environmental Technician Relationship Specialty Start Date End Date Celio Sanders MD [address] [place] [address] PCP - General Internal Medicine 05/19/16 documented as of this encounter
--- OUTSIDE RECORDS SUMMARY | 2024-01-19 16:15 | XMS_ITS | Encounter Summary ---
Author Organization [facility] [place] [address] Care Team Providers Care Plastic Cutter Name Role Phone Celio Sanders MD Primary Care Provider [phone] Encounter Details Date Type Department Care Team (Latest Contact Info) Description 08/03/2016 1:05 PM EDT Procedure [place] [phone] Matthew Pelaez MD Neoplasm of prostate regional [...] at [facility] [address] [place] [address] Prisca Hughes MD [facility] DR PHOEBE [place] [address] 02/07/2024 1:30 PM EST Office Visit Hematology/Oncology at [address] [phone] Harjinder Snyder MD [facility] DR HEMATOLOGY [place] [address] Bisi Cheng APRN [facility] [place] [address] documented as of this encounter Visit Diagnoses Diagnosis 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
--- OUTSIDE RECORDS SUMMARY | 2024-01-19 16:15 | XMS_ITS | Encounter Summary ---
Author Organization [facility] [place] [address] Care Team Providers Care Internet Sales Director Name Role Phone Celio Sanders MD Primary Care Provider Reason for Visit * Reason Comments On Treatment Visit Encounter Details Date Type Department Care Team (Late st Contact Info) Description 08/31/2016 7:30 AM EDT Office Visit [place] [phone] Ronnie Vazquez MD [address] [place] [address] [place] [address] Cancer of prostate with high recurrence risk (stage T3a or Andre 8-10 or PSA > 20); Neoplasm of [...] Note 08/31/16 Ronnie Vazquez MD Radiation Oncology [facility] [phone] (paging freezer machine operator) PATIENT IDENTIFICATION NAME: Nain Mckeon [...] 2:00 PM EST Office Visit Dermatology at [address] [place] [address] Prisca Hughes MD [facility] [address] [place] [address] 02/07/2024 1:30 PM EST Office Visit Hematology/Oncology at [address] [phone] Harjinder Snyder MD [facility] [place] [address] Bisi Cheng APRN [facility] [place] [address] documented as of this encounter Visit Diagnoses Diagnosis Cancer of prostate with high recurrence risk (stage T3a or Andre 8-10 or PSA > 20) Malignant neoplasm of prostate 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
--- OUTSIDE RECORDS SUMMARY | 2024-01-19 16:15 | XMS_ITS | Encounter Summary ---
Author Organization [facility] [place] [address] Care Team Providers Care Medical Office Clerk Name Role Phone Celio Sanders MD Primary Care Provider Encounter Details Date Type Department Care Team (Late st Contact Info) Description 09/16/2016 12:00 PM EDT Office Visit Radiation Oncology at [address] [phone] Ronnie Vazquez MD [address] [place] [address] RADIATION ONCOLOGY [place] [address] Cancer of prostate with high recurrence risk (stage T3a or [place] 8-10 or PSA > 20) Social History [...] Note 09/16/16 Ronnie Vazquez MD Radiation Oncology [facility] [phone] (paging nozzle operator) PATIENT IDENTIFICATION NAME: Nain Mckeon DATE [...] PM EST Office Visit Dermatology at [address] [address] Prisca Hughes MD [facility] DR PHOE[place] [address] 02/07/2024 1:30 PM EST Office Visit Hematology/Oncology at [address] [phone] Harjinder Snyder MD [facility] DR [place] [address] Bisi Cheng APRN [facility] [place] [address] documented as of this encounter Visit Diagnoses Diagnosis Cancer of prostate with high recurrence risk (stage T3a or [place] 8-10 or PSA > 20) Malignant neoplasm of prostate documented in this encounter Care Teams Medical Office Clerk Relationship Specialty Start Date End Date Celio Sandres MD [address] [place] [address] PCP - General Internal Medicine 05/19/16 documented as of this encounter
--- OUTSIDE RECORDS SUMMARY | 2024-01-19 16:15 | XMS_ITS | Encounter Summary ---
Author Organization [facility] [place] [address] Care Team Providers Care Metal Mine Inspector Name Role Phone Celio Sanders MD Primary Care Provider Encounter Details Date Type Department Care Team (Late st Contact Info) Description 09/30/2016 12:30 PM EDT Office Visit Radiation Oncology at [address] [phone] Ronnie Vazquez MD [address] [place] [address] DR RADIATION ONCOLOGY [place], [place] [phone] Neoplasm of prostate regional lymph node staging [...] Note 09/30/16 Ronnie Vazquez MD Radiation Oncology [facility] [phone] (paging brimming machine operator) PATIENT IDENTIFICATION NAME: Nain Mckeon [...] 2:00 PM EST Office Visit Dermatology at [facility] [address] [place] [address] Prisca Hughes MD [facility] DR PHOEBE [place] [address] 02/07/2024 1:30 PM EST Office Visit Hematology/Oncology at [address] [phone] Harjinder Snyder MD [facility] DR [place] [address] Bisi Cheng APRN [facility] [place] [address] documented as of this encounter Visit Diagnoses Diagnosis 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
--- OUTSIDE RECORDS SUMMARY | 2024-01-19 16:15 | XMS_ITS | Encounter Summary ---
Author Organization [facility] [place] [address] Care Team Providers Care Umbrella Supervisor Name Role Phone Celio Sanders MD Primary Care Provider [phone] Reason for Visit * Reason Comments On Treatment Visit Encounter Details Date Type Department Care Team (Late st Contact Info) Description 08/26/2016 7:45 AM EDT Office Visit [place] [phone] Ronnie Vazquez MD [address] [place] [address] [place] [address] Neoplasm of prostate regional lymph node staging [...] 08/26/16 Ronnie Vazquez MD Radiation Oncology [facility] [phone] (paging heel nailing machine operator) PATIENT IDENTIFICATION NAME: Nain Mckeon [...] 2:00 PM EST Office Visit Dermatology at [facility] [address] [place] [facility] [place] [address] Prisca Hughes MD [facility] DR [place] [address] 02/07/2024 1:30 PM EST Office Visit Hematology/Oncology at [address] [phone] Harjinder Snyder MD [facility] [place] [address] Bisi Cheng APRN [facility] [place] [address] documented as of this encounter Visit Diagnoses Diagnosis 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
--- OUTSIDE RECORDS SUMMARY | 2024-01-19 16:15 | XMS_ITS | Encounter Summary ---
Author Organization [facility] [place] [address] Care Team Providers Care Seasonal Sales Associate Name Role Phone Celio Sanders MD Primary Care Provider [phone] Encounter Details Date Type Department Care Team (Late st Contact Info) Description 09/21/2016 Telephone Radiation Oncology at [address] [phone] Alta Rowland RN Social History [...] [facility] [place] [place] Patient has received 19FXs, 3420 cGy [...] 2:00 PM EST Office Visit Dermatology at [address] [place] [address] Prisca Hughes MD [facility] DR PHOEEB [place] [address] 02/07/2024 1:30 PM EST Office Visit Hematology/Oncology at [address] [address] Harjinder Snyder MD [facility] DR HEMATOLOGY [place] [address] Bisi Cheng APRN [facility] [place] [address] documented as of this encounter Visit Diagnoses Not on filedocumented in this encounter Care Teams Seasonal Sales Associate Relationship Specialty Start Date End Date Celio Sanders MD [address] [place] [address] PCP - General Internal Medicine 05/19/16 documented as of this encounter
--- OUTSIDE RECORDS SUMMARY | 2024-01-19 16:15 | XMS_ITS | Encounter Summary ---
Author Organization [facility] [place] [address] Care Team Providers Care Keyboard Specialist Name Role Phone Celio Sanders MD Primary Care Provider [phone] Reason for Visit * Reason Comments Injections Lupron Encounter Details Date Type Department Care Team (Late st Contact Info) Description 11/18/2016 10:30 AM EDT Infusion Hematology Oncology at [address] [phone] Neoplasm of prostate regional lymph node staging [...] at [facility] [address] [place] [address] Prisca Hughes MD [facility] [place] [address] 02/07/2024 1:30 PM EST Office Visit Hematology/Oncology at [address] [phone] Harjinder Snyder MD [facility] [place] [address] Bisi Cheng APRN [facility] [place] [place] [address] documented as of this encounter Procedures Procedure [...] Gluteal documented in this encounter Care Teams Keyboard Specialist Relationship Specialty Start Date End Date Celio Sanders MD [address] [place] [address] PCP - General Internal Medicine 05/19/16 documented as of this encounter
--- OUTSIDE RECORDS SUMMARY | 2024-01-19 16:15 | XMS_ITS | Encounter Summary ---
Author Organization [facility] [place] [address] Care Team Providers Care Cross Country Coach Name Role Phone Celio Sanders MD Primary Care Provider [phone] Reason for Visit * Reason Onset Date Comments Lorna 07/27/2017 Encounter Details Date Type Department Care Team (Late st Contact Info) Description 07/27/2017 Telephone Psychiatry [place] [phone] Angela Bowens RN Lorna Social History Tobacco [...] treated for metastatic prostate cancer at the [facility] in [facility]. He reports that he has been [...] Visit Dermatology at [facility] [address] [place] [address] Prisca Hughes MD [facility] [address] PHOEBE IBAR[place] [address] 02/07/2024 1:30 PM EST Office Visit Hematology/Oncology at [address] [phone] Harjinder Snyder MD [facility] DR HEMATOLOGY [place] [address] Bisi Cheng APRN [facility] [place] [address] documented as of this encounter Visit Diagnoses Not on filedocumented in this encounter Care Teams Cross Country Coach Relationship Specialty Start Date End Date Celio Sanders MD [address] [place] [address] PCP - General Internal Medicine 05/19/16 documented as of this encounter
--- OUTSIDE RECORDS SUMMARY | 2024-01-19 16:15 | XMS_ITS | Encounter Summary ---
Author Organization [facility] Address [facility] [place] [address] Care Team Providers Care Terrazzo Helper Name Role Phone Celio Sanders MD Primary Care Provider Encounter Details Date Type Department Care Team (Late st Contact Info) Description 08/26/2016 7:45 AM EDT Office Visit [place] [address] Social History Tobacco Use Types Packs/Day Years [...] [facility] [address] [place] [address] Prisca Hughes MD [facility] [address] [place] [address] 02/07/2024 1:30 PM EST Office Visit Hematology/Oncology at [address] [phone] Harjinder Snyder MD [facility] [place] [address] Bisi Cheng APRN [facility] [place] [address] documented as of this encounter Visit Diagnoses Not on filedocumented in this encounter Care Teams Terrazzo Helper Relationship Specialty Start Date End Date Celio Sanders MD [address] [place] [address] PCP - General Internal Medicine 05/19/16 documented as of this encounter
--- OUTSIDE RECORDS SUMMARY | 2024-01-19 16:15 | XMS_ITS | Encounter Summary ---
Author Organization [facility] [place] [address] Care Team Providers Care Soil Sampler Name Role Phone Celio Sanders MD Primary Care Provider [phone] Reason for Referral * Consultation (Routine) - Closed Specialty Diagnoses / Procedures Referred By Contkulwant de la rosa Referred To Contact Hematology and Oncology Diagnoses Cancer of prostate with high recurrence risk (stage T3a or Andre 8-10 or PSA > 20) Ronnie Vazquez MD [address] [place] [address] [place] [address] [facility] Hem Onc Office [address] [place] [address] Referral ID Status Reason Start Date Expiration Date V isits Requested Visits Authorized [id number] Closed Consult, Test & Treat 10/07/2016 10/07/2017 1 1 Encounter Details Date Type Department Care Team (Late st Contact Info) Description 10/07/2016 10:45 AM EDT Office Visit Radiation Oncology at [address] [phone] Ronnie Vazquez MD [address] [place] [address] [place] [address] Cancer of prostate with high [...] Note 10/07/16 Ronnie Vazquez MD Radiation Oncology [facility] [phone] (paging microgrinder operator) PATIENT IDENTIFICATION NAME: Nain Mckeon DATE OF : 1950 ONCOLOGIC SUMMARY: aNin Mckeon is a 66 y.o. year old [...] PM EST Office Visit Dermatology at [address] [place] [address] Prisca Hughes MD [facility] DR PHOE[place] [address] 02/07/2024 1:30 PM EST Office Visit Hematology/Oncology at [address] [phone] Harjinder Snyder MD [facility] [place] [address] Bisi Cheng APRN [facility] [place] [address] Scheduled Referrals Name Type Priority Associated Diagnoses [...] prostate documented in this encounter Care Teams Soil Sampler Relationship Specialty Start Date End Date Celio Sanders MD [address] [place] [address] PCP - General Internal Medicine 05/19/16 documented as of this encounter
--- OUTSIDE RECORDS SUMMARY | 2024-01-19 16:15 | XMS_ITS | Encounter Summary ---
Author Organization [facility] [place] [address] Care Team Providers Care Vp Product Management Name Role Phone Celio Sanders MD Primary Care Provider [phone] Encounter Details Date Type Department Care Team (Late st Contact Info) Description 07/22/2016 9:40 AM EDT Clinical Support Same Day at [facility] [place] [phone] Social History Tobacco Use Types Packs/Day Years [...] 2:00 PM EST Office Visit Dermatology at [address] [place] [address] Prisca Hughes MD [facility] [place] [address] 02/07/2024 1:30 PM EST Office Visit Hematology/Oncology at [address] [phone] Harjinder Snyder MD [facility] DR [place] [address] Bisi Cheng APRN [facility] [place] [place] [address] documented as of this encounter Visit Diagnoses Not on filedocumented in this encounter Care Teams Vp Product Management Relationship Specialty Start Date End Date Celio Sanders MD [address] [place] [address] PCP - General Internal Medicine 05/19/16 documented as of this encounter
--- OUTSIDE RECORDS SUMMARY | 2024-01-19 16:15 | XMS_ITS | Encounter Summary ---
Author Organization [facility] [place] [address] Care Team Providers Care Yard Worker Name Role Phone Celio Sanders MD Primary Care Provider Encounter Details Date Type Department Care Team (Late st Contact Info) Description 10/21/2016 4:45 PM EDT Office Visit Radiation Oncology at [address] [phone] Ronnie Vazquez MD [address] [place] [address] DR RADIATION ONCOLOGY [place], [place] [phone] Cancer of prostate with high recurrence risk [...] Note 10/21/16 Ronnie Vazquez MD Radiation Oncology [facility] [phone] (paging sifting operator) PATIENT IDENTIFICATION NAME: Nain Mckeon DATE [...] Pain score today is 0/10. Medications 10/21/16 1494 Medication Sig Taking? ondansetron (ZOFRAN-ODT) 8 mg [...] at [facility] [address] [place] [address] [facility] DR PHOEBE MUHAMMAD[place] [address] 02/07/2024 1:30 PM EST Office Visit Hematology/Oncology at [address] [phone] [facility] DR HEMATOLOGY [place] [address] 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
--- OUTSIDE RECORDS SUMMARY | 2024-01-19 16:15 | XMS_ITS | Encounter Summary ---
Author Organization [facility] [place] [address] Care Team Providers Care Automotive Fuel Systems Converter Name Role Phone Celio Sanders MD Primary Care Provider [phone] Encounter Details Date Type Department Care Team (Late st Contact Info) Description 11/02/2016 Telephone [place]ematology [place] [phone] Social History Tobacco Use [...] supplement to look for [employer] international or HALFWAY seals and advised to hold on during chemotx or if taking any medications which may interact. Will continue to remain available prn. documented in this encounter Plan of Treatment Upcoming Encounters Date Type Department Care Team (Late st Contact Info) Description 01/24/2024 2:00 PM EST Office Visit Dermatology at [facility] [address] [place] [address] Prisca Hughes MD [facility] DR PHOEBE IBAR[place] [address] 02/07/2024 1:30 PM EST Office Visit Hematology/Oncology at [address] [address] Harjinder Snyder MD [facility] DR HEMATOLOGY [place] [address] Bisi Cheng APRN [facility] [place] [address] documented as of this encounter Visit Diagnoses Not on filedocumented in this encounter Care Teams Automotive Fuel Systems Converter Relationship Specialty Start Date End Date Celio Sanders MD [address] [place] [address] PCP - General Internal Medicine 05/19/16 documented as of this encounter
--- OUTSIDE RECORDS SUMMARY | 2024-01-19 16:15 | XMS_ITS | Encounter Summary ---
Author Organization [facility] Address [facility] [place] [address] Care Team Providers Care Engine Specialist Name Role Phone Celio Sanders MD Primary Care Provider [phone] Encounter Details Date Type Department Care Team (Late Contact Info) Description 07/15/2016 Telephone Radiation Oncology at [address] [address] Harjeet Silvestre Social History Tobacco [...] at [facility] [address] [place] [address] Prisca Hughes MD [facility] DR PH[place] [address] 02/07/2024 1:30 PM EST Office Visit Hematology/Oncology at [address] [address] Harjinder Snyder MD [facility] [place] [address] Bisi Cheng APRN [facility] [place] [address] documented as of this encounter Visit Diagnoses Not on filedocumented in this encounter Care Teams Engine Specialist Relationship Specialty Start Date End Date Celio Sanders MD [address] [place] [address] PCP - General Internal Medicine 05/19/16 documented as of this encounter
--- OUTSIDE RECORDS SUMMARY | 2024-01-19 16:15 | XMS_ITS | Encounter Summary ---
[place] [address] Care Team Providers Care Events Administrative Assistant Name Role Phone Celio Sanders MD Primary Care Provider Encounter Details Date Type Department Care Team (Late st Contact Info) Description 08/03/2016 1:00 PM EDT - 08/03/2016 2:00 PM EDT Surgery [place] [phone] Matthew Pelaez MD PROSTATE IMPLANT GOLD COIL PROCEDURE (WRVU 13.46) [...] riding on anything that bounces such as archeology professor, ATV, horse back riding or motorcycle riding [...] Pelaez MD - 08/03/2016 4:27 PM EDT [facility] [place] Patient Name: Nain Mckeon : [id number] MR#: [id number] Case Date: 08/03/2016 Surgeon: Surgeon(s) and Role: [...] gentleman with high-risk prostate cancer, PSA 47.5, [place] 4+4=8/10, Stage [id number]. He is planned for EBRT along with [...] The Space(OAR) system was prepared as per line director's recommendations. A needle was then placed trans-perineally [...] PM EST Office Visit Dermatology at [address] [address] Prisca Hughes MD [facility] DR PHOEBE [place] [address] 02/07/2024 1:30 PM EST Office Visit Hematology/Oncology at [address] [address] Harjinder Snyder MD [facility] HEMATOLOGY [place] [address] Bisi Cheng APRN [facility] [place] [address] documented as of this encounter Procedures Procedure [...] CONTINUOUS, Starting on Tue08/03/16 at 1200, Until 08/03/16 at 1619, Day of Surgery (Day of Procedure) 1200 (New Bag - Prov ider: John Pierson RN)1332 (New Bag - Provider: Rama Valdez CRNA)1514 (Stopped - Provider: Rama Valdez CRNA) documented in this encounter Care Teams Events Administrative Assistant Relationship Specialty Start Date End Date Celio Sanders MD [address] [place] [address] PCP - General Internal Medicine 05/19/16 documented as of this encounter
--- OUTSIDE RECORDS SUMMARY | 2024-01-19 16:15 | XMS_ITS | Encounter Summary ---
[place] [address] Care Team Providers Care Energy Professional Name Role Phone Celio Sanders MD Primary Care Provider [phone] Reason for Visit * Reason Comments Follow-up Encounter Details Date Type Department Care Team (Latest Contact Info) Description 09/03/2016 8:00 AM EDT Clinical Support [place] [phone] Dietary counseling Social History [...] Cobb RD - 09/03/2016 8:00 AM EDT [facility] Initial Dietitian Assessment Seen By: Kimberly Cobb, , RD, LD, HEAVY MACHINERY OPERATOR Referred by: Reason for visit: Patient and [...] 2:00 PM EST Office Visit Dermatology at [address] [place] [address] Prisca Hughes MD [facility] DR PHOEBE MUHAMM[place] [address] 02/07/2024 1:30 PM EST Office Visit Hematology/Oncology at [address] [phone] Harjinder Snyder MD [facility] DR HEMATOLOGY [place] [address] Bisi Cheng APRN [facility] [place] [address] documented as of this encounter Visit Diagnoses Diagnosis Dietary counseling Dietary surveillance and counseling documented in this encounter Care Teams Energy Professional Relationship Specialty Start Date End Date Celio Sanders MD [address] [place] [address] PCP - General Internal Medicine 05/19/16 documented as of this encounter
--- OUTSIDE RECORDS SUMMARY | 2024-01-19 16:15 | XMS_ITS | Encounter Summary ---
Author Organization [facility] [place] [address] Care Team Providers Care Watershed Program Manager Name Role Phone Celio Sanders MD Primary Care Provider Encounter Details Date Type Department Care Team (Late st Contact Info) Description 09/23/2016 12:00 PM EDT Office Visit Radiation Oncology at [address] [phone] Ronnie Vazquez MD [address] [place] [address] DR RADIATION ONCOLOGY [place], [place] [phone] Cancer of prostate with high recurrence risk (stage T3a or [place] 8-10 or PSA > 20) Social History [...] Note 09/23/16 Ronnie Vazquez MD Radiation Oncology [facility] [phone] (paging circle saw operator) PATIENT IDENTIFICATION NAME: Nain Mckeon DATE [...] 2:00 PM EST Office Visit Dermatology at [facility] [address] [place] [address] Prisca Hughes MD [facility] DR PHOEBE [place] [address] 02/07/2024 1:30 PM EST Office Visit Hematology/Oncology at [address] [address] Harjinder Snyder MD [facility] DR [place] [address] Bisi Cheng APRN [facility] [place] [address] documented as of this encounter Visit Diagnoses Diagnosis Cancer of prostate with high recurrence risk (stage T3a or Andre 8-10 or PSA > 20) Malignant neoplasm of prostate documented in this encounter Care Teams Watershed Program Manager Relationship Specialty Start Date End Date Celio Sanders MD [address] [address] PCP - General Internal Medicine 05/19/16 documented as of this encounter
--- OUTSIDE RECORDS SUMMARY | 2024-01-19 16:15 | XMS_ITS | Encounter Summary ---
Author Organization [facility] [place] [address] Care Team Providers Care Honeycomb Blanket Maker Name Role Phone Celio Sanders MD Primary Care Provider [phone] Reason for Visit * Reason Comments Simulation Encounter Details Date Type Department Care Team (Late st Contact Info) Description 08/13/2016 12:00 PM EDT Ancillary Appointment [place] [phone] Ronnie Vazquez MD [address] [place] [address] [place] [address] Social History Tobacco Use Types Packs/Day Years [...] Note for External Beam Radiation Treatment Planning [facility] Laith Mckeon is a 65 y.o. [...] likelihood of any short termside effects or retirement complications of therapy. I anticipate his prescription [...] 2:00 PM EST Office Visit Dermatology at [address] [place] [address] Prisca Hughes MD [facility] DR PHOEBE MUH[place] [address] 02/07/2024 1:30 PM EST Office Visit Hematology/Oncology at [address] [phone] Harjinder Snyder MD [facility] DR HEMATOLOGY [place] [address] Bisi Cheng APRN [facility] [place] [address] documented as of this encounter Visit Diagnoses Not on filedocumented in this encounter Care Teams Honeycomb Blanket Maker Relationship Specialty Start Date End Date Celio Sanders MD [address] [place] [address] PCP - General Internal Medicine 05/19/16 documented as of this encounter
--- OUTSIDE RECORDS SUMMARY | 2024-01-19 16:15 | XMS_ITS | Encounter Summary ---
Author Organization [facility] Address [facility] [place] [address] Care Team Providers Care Property Insurance Claims Examiner Name Role Phone Celio Sanders MD Primary Care Provider [phone] Reason for Visit * Reason Comments Prostate Cancer * Consultation (Routine) - Closed Specialty Diagnoses / Procedures Referred By Contac t Referred To Contact Hematology and Oncology Diagnoses Cancer of prostate with high recurrence risk (stage T3a or [place] 8-10 or PSA > 20) Ronnie Vazquez MD [address] [place] [address] [place] [address] [facility] Onc Office [address] [place] [phone] Referral ID Status Reason Start Date Expiration Date V isits Requested Visits Authorized [id number] Closed Consult, Test & Treat 10/07/2016 10/07/2017 1 1 Encounter Details Date Type Department Care Team (Late st Contact Info) Description 11/10/2016 12:00 PM EDT Office Visit Hematology [place] [address] Harjinder Snyder MD [facility] DR HEMATOLOGY [place] [address] Malignant neoplasm of prostate Social History Tobacco [...] Andre 4+4 disease in 2 cores and [place] 4+3 disease in 3 additional cores. 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 A - Prostatic core needle biopsy, right lateral base: ? 1. Adenocarcinoma, grade group 3, [place] grade 4+3, ?involving 95% of the biopsy [...] medial: ? 1. Adenocarcinoma, grade group 4, [place] grade 4+4, ?involving 40% of the biopsy [...] Prostate adenocarcinoma, PSA 47.5, Andre 4+4=8/10, Stage [id number]. Treatment: - 05/31/16 Lupron 22.5 and bicalutamide [...] receiving a standard of care treatment with vice president of consulting services ADT. I recommended to continue current regimen. [...] Dermatology at [facility] [address] [place] [address] Prisca Hughes MD [facility] DR PHOEBE [place]BAR[place] [address] 02/07/2024 1:30 PM EST Office Visit Hematology/Oncology at [address] [address] Harjinder Snyder MD [facility] DR HEMATOLOGY [place] [address] Bisi Cheng APRN [facility] [place] [address] Scheduled Referrals Name Type Priority Associated Diagnoses Order Schedule Referral to Hematology and Oncology Outpatient Referral Routine Cancer of prostate with high recurrence risk (stage T3a or Andre 8-10 or PSA > 20) Ordered: 10/07/2016 documented as of this encounter Visit Diagnoses Diagnosis Malignant neoplasm of prostate documented in this encounter Care Teams Property Insurance Claims Examiner Relationship Specialty Start Date End Date Celio Sanders MD [address] [place] [address] PCP - General Internal Medicine 05/19/16 documented as of this encounter
--- OUTSIDE RECORDS SUMMARY | 2024-01-19 16:15 | XMS_ITS | Encounter Summary ---
Author Organization [facility] Address [facility] [place] [address] Care Team Providers Care Lactation Consultant Name Role Phone Celio Sanders MD Primary Care Provider [phone] Encounter Details Date Type Department Care Team (Late Contact Info) Description 07/27/2016 Telephone Radiation Oncology at [address] [phone] Harjeet Silvestre Social History Tobacco [...] at [facility] [address] [place] [address] Prisca Hughes MD [facility] DR PHOE[place] [address] 02/07/2024 1:30 PM EST Office Visit Hematology/Oncology at [address] [phone] Harjinder Snyder MD [facility] DR [place] [address] Bisi Cheng APRN [facility] [place] [address] documented as of this encounter Visit Diagnoses Not on filedocumented in this encounter Care Teams Lactation Consultant Relationship Specialty Start Date End Date Celio Sanders MD [address] [place] [address] PCP - General Internal Medicine 05/19/16 documented as of this encounter
--- OUTSIDE RECORDS SUMMARY | 2024-01-19 16:15 | XMS_ITS | Encounter Summary ---
Author Organization [facility] Address [facility] [place] [address] Care Team Providers Care Non Destructive Testing Specialist Name Role Phone Celio Sanders MD Primary Care Provider [phone] Encounter Details Date Type Department Care Team (Late Contact Info) Description 05/30/2017 Orders Only Radiation Oncology at [address] [address] Alta Rowland, RN Malignant neoplasm [...] PM EST Office Visit Dermatology at [address] [place] [address] Prisca Hughes MD [facility] DR PHOEBE [place] [address] 02/07/2024 1:30 PM EST Office Visit Hematology/Oncology at [address] [phone] Harjinder Snyder MD [facility] [place] [address] Bisi Cheng APRN [facility] [place] [address] documented as of this encounter Visit Diagnoses Diagnosis Malignant neoplasm of prostate documented in this encounter Care Teams Non Destructive Testing Specialist Relationship Specialty Start Date End Date Celio Sanders MD [address] [place] [address] PCP - General Internal Medicine 05/19/16 documented as of this encounter
--- OUTSIDE RECORDS SUMMARY | 2024-01-19 16:15 | XMS_ITS | Encounter Summary ---
Author Organization [facility] [place] [address] Care Team Providers Care Senior Network Engineer Name Role Phone Celio Sanders MD Primary Care Provider [phone] Encounter Details Date Type Department Care Team (Latest Contact Info) Description 08/03/2016 11:27 AM EDT - 08/03/2016 4:27 PM EDT Hospital Encounter [place] [phone] Matthew Pelaez MD Discharge Disposition: Home Social History Tobacco Use [...] riding on anything that bounces such as elementary esl teacher, ATV, horse back riding or motorcycle [...] Pelaez MD - 08/03/2016 4:27 PM EDT [facility] Operative Note Patient Name: Nain Mckeon : [id number] MR#: [id number] Case Date: 08/03/2016 Surgeon: Surgeon(s) and Role: [...] gentleman with high-risk prostate cancer, PSA 47.5, [place] 4+4=8/10, Stage [id number]. He is planned for EBRT along with ADT. First Lupron injection was 22.5 mg (3-months) on 05/31/16. He originally was seen in [facility] by Dr. Vazquez. He did not [...] The Space(OAR) system was prepared as per accounting supervisor's recommendations. A needle was then placed trans-perineally [...] PM EST Office Visit Dermatology at [address] [address] Prisca Hughes MD [facility] DR [place] [address] 02/07/2024 1:30 PM EST Office Visit Hematology/Oncology at [address] [phone] Harjinder Snyder MD [facility] [place] [address] Bisi Cheng APRN [facility] [place] [address] documented as of this encounter Procedures Procedure [...] CRNA) documented in this encounter Care Teams Senior Network Engineer Relationship Specialty Start Date End Date Celio Sanders MD [address] [place] [address] PCP - General Internal Medicine 05/19/16 documented as of this encounter
--- OUTSIDE RECORDS SUMMARY | 2024-01-19 16:15 | XMS_ITS | Encounter Summary ---
Author Organization [facility] [place] [address] Care Team Providers Care Corridor Redevelopment Manager Name Role Phone Celio Sanders MD Primary Care Provider [phone] Encounter Details Date Type Department Care Team (Late st Contact Info) Description 07/28/2016 Telephone Radiation Oncology at [address] [phone] Harjeet Silvestre Social History Tobacco [...] Dermatology at [facility] [address] [place] [address] Prisca Hughes MD [facility] DR PHOEBE MUHAMM[place] [address] 02/07/2024 1:30 PM EST Office Visit Hematology/Oncology at [address] [phone] Harjindre Snyder MD [facility] DR HEMATOLOGY [place] [address] Bisi Cheng APRN [facility] [place] [address] documented as of this encounter Visit Diagnoses Not on filedocumented in this encounter Care Teams Corridor Redevelopment Manager Relationship Specialty Start Date End Date Celio Sanders MD [address] [place] [address] PCP - General Internal Medicine 05/19/16 documented as of this encounter
--- OUTSIDE RECORDS SUMMARY | 2024-01-19 16:15 | XMS_ITS | Encounter Summary ---
Author Organization [facility] [place] [address] Care Team Providers Care Ornamental Ironworker Name Role Phone Celio Sanders MD Primary Care Provider [phone] Encounter Details Date Type Department Care Team (Late st Contact Info) Description 10/14/2016 8:30 AM EDT Office Visit Radiation Oncology at [address] [phone] Ronnie Vazquez MD [address] [place] [address] DR RADIATION ONCOLOGY [place], [place] [phone] Cancer of prostate with high recurrence risk [...] Note 10/14/16 Ronnie Vazquez MD Radiation Oncology [facility] [phone] (paging power ballast machine operator) PATIENT IDENTIFICATION NAME: Nain Mckeon [...] Dermatology at [facility] [address] [place] [address] Prisca Hughes MD [facility] DR PHOEBE [place] [address] 02/07/2024 1:30 PM EST Office Visit Hematology/Oncology at [address] [phone] Harjinder Snyder MD [facility] DR HEMATOLOGY [place] [address] Bisi Cheng APRN [facility] [place] [address] documented as of this encounter Visit Diagnoses Diagnosis Cancer of prostate with high recurrence risk (stage T3a or Andre 8-10 or PSA > 20) Malignant neoplasm of prostate documented in this encounter Care Teams Ornamental Ironworker Relationship Specialty Start Date End Date Celio Sanders MD [address] [place] [address] PCP - General Internal Medicine 05/19/16 documented as of this encounter
--- OUTSIDE RECORDS SUMMARY | 2024-01-19 16:15 | XMS_ITS | Encounter Summary ---
Author Organization [facility] Address [facility] [place] [address] Care Team Providers Care Machine Cloth Trimmer Name Role Phone Celio Sanders MD Primary Care Provider [phone] Encounter Details Date Type Department Care Team (Late Contact Info) Description 06/30/2017 Orders Only Hematology/Oncology at [address] [phone] Harjinder Snyder MD [facility] [place] [address] Neoplasm of prostate regional lymph node staging [...] [facility] [address] [place] [address] Prisca Hughes MD [facility] DR PH[place] [address] 02/07/2024 1:30 PM EST Office Visit Hematology/Oncology at [address] [address] Harjinder Snyder MD [facility] DR [place] [address] Bisi Cheng APRN 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
--- OUTSIDE RECORDS SUMMARY | 2024-01-19 16:16 | XMS_ITS | Encounter Summary ---
Author Organization [facility] Address [facility] [address] Care Team Providers Care School Teacher Name Role Phone Celio Sanders MD Primary Care Provider [phone] Encounter Details Date Type Department Care Team (Late Contact Info) Description 06/09/2016 Telephone Radiation Oncology at [address] [phone] Harjeet Silvestre Social History Tobacco [...] EST Office Visit Dermatology at [facility] [address] [place] [address] Prisca Hughes MD [facility] [place] [address] 02/07/2024 1:30 PM EST Office Visit Hematology/Oncology at [address] [address] Harjinder Snyder MD [facility] [place] [address] Bisi Cheng APRN [facility] [place] [address] documented as of this encounter Visit Diagnoses Not on filedocumented in this encounter Care Teams School Teacher Relationship Specialty Start Date End Date Celio Sanders MD [address] [place] [address] PCP - General Internal Medicine 05/19/16 documented as of this encounter
--- OUTSIDE RECORDS SUMMARY | 2024-01-19 16:16 | XMS_ITS | Encounter Summary ---
Author Organization [facility]ly [facility] [place] [address] Care Team Providers Care Reports Developer Name Role Phone Celio Sanders MD Primary Care Provider [phone] Encounter Details Date Type Department Care Team (Late Contact Info) Description 06/03/2016 Telephone Radiation Oncology at [address] [phone] Harjeet Silvestre Social History Tobacco [...] Dermatology at [facility] [address] [place] [address] Prisca Hughes MD [facility] [address] [place] [address] 02/07/2024 1:30 PM EST Office Visit Hematology/Oncology at [address] [phone] Harjinder Snyder MD [facility] DR [place] [address] Bisi Cheng APRN [facility] [place] [address] documented as of this encounter Visit Diagnoses Not on filedocumented in this encounter Care Teams Reports Developer Relationship Specialty Start Date End Date Celio Sanders MD [address] [place] [address] PCP - General Internal Medicine 05/19/16 documented as of this encounter
--- OUTSIDE RECORDS SUMMARY | 2024-01-19 16:16 | XMS_ITS | Encounter Summary ---
Author Organization [facility] Address [facility] [place] [address] Care Team Providers Care Ekg Tech Name Role Phone Angelica Mak MD Primary Care Provider [phone] Encounter Details Date Type Department Care Team (Latest Contact Info) Description 03/30/2016 - 03/30/2016 11:59 PM EST Hospital Encounter Radiology Library at [facility] [place] [phone] Celio Sanders MD [address] [place] [address] Pain Discharge Disposition: Home Social History Tobacco [...] PM EST Office Visit Dermatology at [address] [place] [address] Prisca Hughes MD [facility] DR PHOEBE [place] [address] 02/07/2024 1:30 PM EST Office Visit Hematology/Oncology at [address] [phone] Harjinder Snyder MD [facility] DR HEMATOLOGY [place] [address] Bisi Cheng APRN [facility] [place] [address] documented as of this encounter Procedures Procedure Name Priority Date/Time Associated Diagnosis Comments FILM LIBRARY STORAGE ONLY NUCLEAR MEDICINE Routine 03/30/2016 12:00 AM EST Pain documented in this encounter Results * Film Library- Storage Only nuclear medicine (03/30/2016 12:00 AM EST) Narrative [facility] RAD - 05/14/2016 9:52 AM EST This exam is for storage only and is auto-finalizing. Celio Sanders MD IMG FILM LIBRARY ORD ERABLES [place], [place] documented in this encounter Visit Diagnoses Diagnosis Pain Generalized pain documented in this encounter Care Teams Ekg Tech Relationship Specialty Start Date End Date Angelica Mak MD [address] [place] [address] PCP - General 01/27/10 05/18/16 documented as of this encounter
--- OUTSIDE RECORDS SUMMARY | 2024-01-19 16:16 | XMS_ITS | Encounter Summary ---
Author Organization [facility] Address [facility] [place] [address] Care Team Providers Care Special Procedure Technologist Name Role Phone Celio Sanders MD Primary Care Provider [phone] Encounter Details Date Type Department Care Team (Late st Contact Info) Description 06/29/2016 1:00 PM EDT Office Visit Radiation Oncology at [address] [phone] [facility] Malignant neoplasm of prostate [...] Time: 08:00 Time of Procedure:~ 8:30 Location: [facility] Why gold coils? You and [...] ibuprofen ] Prescriptions to get filled: At [facility] Prescription for steroid: to prevent swelling at [...] the lorazepam.>>>>> Future Appointments: ?? MRI at [facility] : You will receive separate instructions specifically from [facility] concerning your exact arrival time and what you need to do to prepare for this. Date: 07/[address] [facility] will give you the exact arrival time. ?? Your planning session (simulation) will be done the following week at [facility]. [Date: 07/21 ] [Time:arrive at 11:00 ] For proper visualization of prostate, it is required that you have a moderately full bladder. This will require you to arrive 30 minutes before scheduled appointment and drink 2 glasses of water upon arrival. There are no restrictions with eating. How to reach us: [facility] [phone] For weekends and after hours: Call [facility] ask for the stone mason radiation oncologist This template was transcribed from [facility] Shared drive: I:\Nursing\\Cold Coils\preparation for cold coil placement documented in this encounter Plan of Treatment Upcoming Encounters Date Type Department Care Team (Late st Contact Info) Description 01/24/2024 2:00 PM EST Office Visit Dermatology at [address] [address] Prisca Hughes MD [facility] DR [place] [address] 02/07/2024 1:30 PM EST Office Visit Hematology/Oncology at [address] [phone] Harjinder Snyder MD [facility] [place] [address] Bisi Cheng APRN [facility] [place] [place] [address] documented as of this encounter Visit Diagnoses Diagnosis Malignant neoplasm of prostate documented in this encounter Care Teams Special Procedure Technologist Relationship Specialty Start Date End Date Celio Sanders MD [address] [place] [address] PCP - General Internal Medicine 05/19/16 documented as of this encounter
--- OUTSIDE RECORDS SUMMARY | 2024-01-19 16:16 | XMS_ITS | Encounter Summary ---
Author Organization [facility] Address [facility] [place] [address] Care Team Providers Care Deputy Juvenile Officer Name Role Phone Angelica Mak MD Primary Care Provider [phone] Encounter Details Date Type Department Care Team (Latest Contact Info) Description 05/12/2016 - 05/12/2016 11:59 PM EST Hospital Encounter Radiology Library [place] [facility] [place] [phone] Celio Sanders MD [address] [place] [address] Pain Discharge Disposition: Home Social History Tobacco [...] 2:00 PM EST Office Visit Dermatology at [address] [place] [address] [facility] DR [place] [address] 02/07/2024 1:30 PM EST Office Visit Hematology/Oncology at [address] [phone] [facility] [place] [address] [facility] [place] [address] documented as of this encounter Procedures Procedure [...] & Pelvis (05/12/2016 12:00 AM EST) Narrative [facility] - 05/14/2016 9:57 AM EST This exam is for storage only and is auto-finalizing. Celio Sanders MD IM FILM LIBRARY ORD ERABLES [place], [place] * SCAN DOC: CT SCAN (05/12/2016 12:00 [...] pain documented in this encounter Care Teams Deputy Juvenile Officer Relationship Specialty Start Date End Date Angelica Mak MD [address] [place] [address] PCP - General 01/27/10 05/18/16 documented as of this encounter
--- OUTSIDE RECORDS SUMMARY | 2024-01-19 16:16 | XMS_ITS | Encounter Summary ---
Author Organization [facility] [place] [address] Care Team Providers Care Body And Fender Mechanic Name Role Phone Angelica Mak MD Primary Care Provider [phone] Encounter Details Date Type Department Care Team (Late st Contact Info) Description 01/25/2011 1:00 PM EST Office Visit Infectious Disease at [facility] [place] [phone] Jose Adams RN Foreign travel (Primary Dx) [...] Details: Destination countries (list from first to last):[facility], [facility], [facility]; [facility], [facility] Departure date: 04/28/11 Length of [...] or get this done through their primary palliative care physician. Patient advised to call travel clinic if [...] exposure occurs 2. 3. 1. 2. 3. Citizen Of [place] Encephalitis 1. 2. 3. 1. 2. 3. 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 documented in this encounter Plan of Treatment Upcoming Encounters Date Type Department Care Team (Late st Contact Info) Description 01/24/2024 2:00 PM EST Office Visit Dermatology at [facility] [address] [place] [address] Prisca Hughes MD [facility] DR [place] [address] 02/07/2024 1:30 PM EST Office Visit Hematology/Oncology at [address] [phone] Harjinder Snyder MD [facility] DR [place] [address] Bisi Cheng APRN [facility] [place] [address] documented as of this encounter Visit Diagnoses Diagnosis Foreign travel- Primary Other specified conditions influencing health status documented in this encounter Care Teams Body And Fender Mechanic Relationship Specialty Start Date End Date Angelica Mak MD [address] [place] [address] PCP - General 01/27/10 05/18/16 documented as of this encounter
--- OUTSIDE RECORDS SUMMARY | 2024-01-19 16:16 | XMS_ITS | Encounter Summary ---
Author Organization [facility] Address [facility] [place] [address] Care Team Providers Care Roofing Foreman Name Role Phone Angelica Mak MD Primary Care Provider [phone] Encounter Details Date Type Department Care Team (Latest Contact Info) Description 04/27/2016 - 04/27/2016 11:59 PM EST Hospital Encounter Radiology Library at [facility] [place] [phone] Celio Sanders MD [address] [place] [address] Pain Discharge Disposition: Home Social History Tobacco [...] 2:00 PM EST Office Visit Dermatology at [address] [place] [address] Prisca Hughes MD [facility] DR PHOEBE [place] [address] 02/07/2024 1:30 PM EST Office Visit Hematology/Oncology at [address] [phone] Harjinder Snyder MD [facility] DR [place] [address] Bisi Cheng APRN [facility] [place] [address] documented as of this encounter Procedures Procedure Name Priority Date/Time Associated Diagnosis Comments FILM LIBRARY STORAGE ONLY ULTRASOUND STUDY Routine 04/27/2016 12:00 AM EST Pain documented in this encounter Results * Film Library- Storage Only Ultrasound Study (04/27/2016 12:00 AM EST) Narrative [facility] RAD - 05/14/2016 9:55 AM EST This exam is for storage only and is auto-finalizing. Celio Sanders MD IMG FILM LIBRARY ORD ERABLES [place], [place] documented in this encounter Visit Diagnoses Diagnosis Pain Generalized pain documented in this encounter Care Teams Roofing Foreman Relationship Specialty Start Date End Date Angelica Mak MD [address] [place] [address] PCP - General 01/27/10 05/18/16 documented as of this encounter
--- OUTSIDE RECORDS SUMMARY | 2024-01-19 16:16 | XMS_ITS | Encounter Summary ---
Author Organization [facility] [place] [address] Care Team Providers Care Coppersmith Helper Name Role Phone Celio Sanders MD Primary Care Provider [phone] Encounter Details Date Type Department Care Team (Late st Contact Info) Description 05/31/2016 9:00 AM EDT Office Visit Radiation Oncology at [address] [phone] Ronnie Vazquez MD [address] [place] [address] DR RADIATION ONCOLOGY [place], [place] [phone] Cancer of prostate with high recurrence risk [...] ask you to undergo the MRI at [facility] and a CT simulation scan here [facility], typically 1-2 weeks after the placement [...] a prostate MRI which we do at [facility], that allows us to better see [...] within 4-6 weeks of completion radiation. 5. Production Team Leader Complications: These are more worrisome and are [...] for urination). There may be a slow, terminal carman decrease in your sexual function as well, [...] Vazquez MD - 05/31/2016 9:00 AM EDT [facility] Radiation Oncology Established Patient Followup Patient [...] Dr. Pham of the Urologic Oncology at [facility] on 05/27/16 for the consideration of prostatectomy [...] have offered to facilitate a referral to [place] for consultation regarding this. I discussed that [...] decide to proceed with proton treatments in [place]. At this time, we will go ahead [...] arrange for MRI of the prostate at [facility] after this, then CT planning simulation scan after this. I anticipate should all go as expected, radiotherapy would begin sometime toward the end ofMay. He understands that fiducial marker implantation and therefore the remainder of the timeline as outlined above may be delayed pending his evaluation in [place]. So, in summary: 1. Referral to [facility] for consideration of proton therapy 2. Lupron today, Casodex for 14 days to prevent flare 3. Fiducial marker implantation in 1 month, to be followed by MRI and CT simulation scan 4. Informed consent obtained for radiotherapy to the pelvis and prostate, 44 fractions to be delivered in [facility]. Simulation scheduled for 07/21, anticipate RT [...] 2:00 PM EST Office Visit Dermatology at [address] [place] [address] Prisca Hughes MD [facility] DR PHOEBE [place] [address] 02/07/2024 1:30 PM EST Office Visit Hematology/Oncology at [address] [phone] Harjinder Snyder MD [facility] DR HEMATOLOGY [place] [address] Bisi Cheng APRN [facility] [place] [address] documented as of this encounter Procedures Procedure [...] with high recurrence risk (stage T3a or [place] 8-10 or PSA > 20) Malignant neoplasm of prostate 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 documented in this encounter Care Teams Coppersmith Helper Relationship Specialty Start Date End Date Celio Sanders MD [address] [place] [address] PCP - General Internal Medicine 05/19/16 documented as of this encounter
--- OUTSIDE RECORDS SUMMARY | 2024-01-19 16:16 | XMS_ITS | Encounter Summary ---
Author Organization [facility] Address [facility] [place] [address] Care Team Providers Care Person Investigator Name Role Phone Celio Sanders MD Primary Care Provider [phone] Encounter Details Date Type Department Care Team (Late st Contact Info) Description 07/08/2016 Telephone Radiation Oncology at [address] [phone] Alta Rowland RN Social History [...] AM EDT Radiation Oncology Nurse Telephone Note [facility] [place] 07/08/16 called patient to clarify medications [...] week if he has not heard from [facility] for this consult. He expressed appreciation for this call. documented in this encounter Plan of Treatment Upcoming Encounters Date Type Department Care Team (Late st Contact Info) Description 01/24/2024 2:00 PM EST Office Visit Dermatology at [facility] [address] [place] [address] Prisca Hughes MD [facility] DR [place] [address] 02/07/2024 1:30 PM EST Office Visit Hematology/Oncology at [address] [phone] Harjinder Snyder MD [facility] [place] [address] Bisi Cheng APRN [facility] [place] [address] documented as of this encounter Visit Diagnoses Not on filedocumented in this encounter Care Teams Person Investigator Relationship Specialty Start Date End Date Celio Sanders MD [address] [place] [address] PCP - General Internal Medicine 05/19/16 documented as of this encounter
--- OUTSIDE RECORDS SUMMARY | 2024-01-19 16:16 | XMS_ITS | Encounter Summary ---
Author Organization [facility] [place] [address] Care Team Providers Care Structural Shop Helper Name Role Phone Angelica Mak MD Primary Care Provider [phone] Encounter Details Date Type Department Care Team (Late Contact Info) Description 05/18/2016 Telephone Radiation Oncology at [address] [phone] Harjeet Silvestre Social History Tobacco [...] at [facility] [address] [place] [address] Prisca Hughes MD [facility] DR PHOEBE MUHAMMAD[place] [address] 02/07/2024 1:30 PM EST Office Visit Hematology/Oncology at [address] [phone] Harjinder Snyder MD [facility] HEMATOLOGY [place] [address] Bisi Cheng APRN [facility] [place] [address] documented as of this encounter Visit Diagnoses Not on filedocumented in this encounter Care Teams Structural Shop Helper Relationship Specialty Start Date End Date Angelica Mak MD [address] [place] [address] PCP - General 01/27/10 05/18/16 documented as of this encounter
--- OUTSIDE RECORDS SUMMARY | 2024-01-19 16:16 | XMS_ITS | Encounter Summary ---
Author Organization [facility] Address [facility] [place] [address] Care Team Providers Care Atmospheric Scientist Name Role Phone Angelica Mak MD Primary Care Provider [phone] Encounter Details Date Type Department Care Team (Latest Contact Info) Description 05/17/2016 3:39 PM EDT - 05/17/2016 11:59 PM EDT Hospital Encounter Laboratory [facility] [place] [phone] Discharge Disposition: Home Social History Tobacco Use [...] PM EST Office Visit Dermatology at [address] [place] [address] Prisca Hughes MD [facility] DR PHOEBE [place] [address] 02/07/2024 1:30 PM EST Office Visit Hematology/Oncology at [address] [phone] Harjinder Snyder MD [facility] [place] [address] Bisi Cheng APRN [facility] [place] [address] documented as of this encounter Procedures Procedure Name Priority Date/Time Associated Diagnosis Comments SURGICAL PATHOLOGY REPORT Routine 05/17/2016 4:06 PM EDT documented in this encounter Results * Surgical Pathology Report (05/17/2016 4:06 PM EDT) Final Diagnosis [id number] ?Location: [facility] The signing pathologist has (i) examined the relevant preparation(s) for the specimen(s) and (ii) rendered or confirmed the diagnosis(es). . ?Surgical Pathology DIAGNOSIS CONSULTATION CASE Extradepartmental number: ??[id number]; collection date, 04/27/2016. A - Prostatic core needle biopsy, right lateral base: ?1. Adenocarcinoma, grade group 3, [place] grade 4+3, ? involving 95% of the biopsy core. ?2. Perineural invasion identified. B - Prostatic core needle biopsy, right medial base: ?1. Adenocarcinoma, grade group 3, [place] grade 4+3, ? involving 95% of the [...] CONSULTATION CASE A - 24 slide(s) labeled [id number], collection date 04/27/2016. [id number] Report to: [facility] Surgical Pathology Department [facility], [place], 2nd Floor [address] [place], [place] ??[address] SPECIMEN PROCESSING [facility] ([facility]) pathology slide(s) are reviewed. ??Refer to Diagnosis and Specimen Submitted for specific case information. For the full text of the [facility] report(s) please refer to Non-DH Documentation Pathology in the electronic health record (eDH). 05/18/2016 2:17 PM EDT [facility] Consult Case 05/17/2016 4:06 PM EDT 05/17/2016 4:06 PM EDT Savanah Sewell MD PATHOLOGY/CYTOLO GY ORDERABLES Performing Organization Address City/State/[facility] Co de Phone Number [facility] [place] [address] documented in this encounter Visit Diagnoses Not on filedocumented in this encounter Care Teams Atmospheric Scientist Relationship Specialty Start Date End Date Angelica Mak MD [address] [place] [address] PCP - General 01/27/10 05/18/16 documented as of this encounter
--- OUTSIDE RECORDS SUMMARY | 2024-01-19 16:16 | XMS_ITS | Encounter Summary ---
Author Organization [facility] Address [facility] [place] [address] Care Team Providers Care Special Delivery Worker Name Role Phone Celio Sanders MD Primary Care Provider [phone] Reason for Visit * Reason Comments Injections Lupron Encounter Details Date Type Department Care Team (Late st Contact Info) Description 05/31/2016 9:30 AM EDT Infusion Hematology Oncology at [address] [phone] Malignant neoplasm of prostate Social [...] 2:00 PM EST Office Visit Dermatology at [facility] [address] [place] [phone] Prisca Hughes MD [facility] DR PHOEBE [place] [address] 02/07/2024 1:30 PM EST Office Visit Hematology/Oncology at [address] [phone] Harjinder Snyder MD [facility] DR HEMATOLOGY [place] [address] Bisi Cheng APRN [facility] [place] [address] documented as of this encounter Visit Diagnoses [...] Gluteal documented in this encounter Care Teams Special Delivery Worker Relationship Specialty Start Date End Date Celio Sanders MD [address] [place] [address] PCP - General Internal Medicine 05/19/16 documented as of this encounter
--- OUTSIDE RECORDS SUMMARY | 2024-01-19 16:16 | XMS_ITS | Encounter Summary ---
Author Organization [facility] Address [facility] [place] [address] Care Team Providers Care Assembler Metal Furniture Name Role Phone Celio Sanders MD Primary Care Provider [phone] Encounter Details Date Type Department Care Team (Late Contact Info) Description 05/28/2016 Telephone Radiation Oncology at [address] [phone] Harjeet Silvestre Social History Tobacco [...] [facility] [address] [place] [address] Prisca Hughes MD [facility] DR PHOEBE [place] [address] 02/07/2024 1:30 PM EST Office Visit Hematology/Oncology at [address] [phone] Harjinder Snyder MD [facility] [place] [address] Bisi Cheng APRN [facility] [place] [address] documented as of this encounter Visit Diagnoses Not on filedocumented in this encounter Care Teams Assembler Metal Furniture Relationship Specialty Start Date End Date Celio Sanders MD [address] [place] [address] PCP - General Internal Medicine 05/19/16 documented as of this encounter
--- OUTSIDE RECORDS SUMMARY | 2024-01-19 16:16 | XMS_ITS | Encounter Summary ---
[facility] [place] [address] Care Team Providers Care Reclaimer Name Role Phone Celio Sanders MD Primary Care Provider Encounter Details Date Type Department Care Team (Late st Contact Info) Description 05/17/2016 External [place] [phone] Provider, Scanning Social History Tobacco Use Types [...] PM EST Office Visit Dermatology at [address] [phone] Prisca Hughes MD [facility] DR PHOEBE IBAR[place] [address] 02/07/2024 1:30 PM EST Office Visit Hematology/Oncology at [address] [phone] Harjinder Snyder MD [facility] HEMATOLOGY [place] [address] Bisi Cheng APRN [facility] [place] [address] documented as of this encounter Procedures Procedure Name Priority Date/Time Associated Diagnosis Comments SURGICAL PATHOLOGY SCAN Routine 05/17/2016 documented in this encounter Results * Scan Doc: Surgical Pathology (05/17/2016) Savanah Sewell MD MEDIA MGR SCAN E XT ORDR/RSLT documented in this encounter Visit Diagnoses Not on filedocumented in this encounter Care Teams Reclaimer Relationship Specialty Start Date End Date Celio Sanders MD [address] [place] [address] PCP - General Internal Medicine 05/19/16 documented as of this encounter
--- OUTSIDE RECORDS SUMMARY | 2024-01-19 16:16 | XMS_ITS | Encounter Summary ---
Author Organization [facility] [place] [address] Care Team Providers Care Scowman Name Role Phone Celio Sanders MD Primary Care Provider [phone] Reason for Visit * Consultation (Routine) - Closed Specialty Diagnoses / Procedures Referred By Tess de la rosa Referred To Contact Radiation Oncology Diagnoses Prostate CA Procedures Treatment Options Elias Curran MD [address] [place] [address] Ronnie Vazquez MD [address] [place] [address] [place] [address] Referral ID Status Reason Start Date Expiration Date Visits Re quested Visits Authorized [id number] Closed 05/14/2016 05/14/2017 1 1 Encounter Details Date Type Department Care Team (Late st Contact Info) Description 05/19/2016 1:30 PM EDT Office Visit Radiation Oncology at [address] [phone] Ronnie Vazquez MD [address] [place] [address] [place] [address] Cancer of prostate with high recurrence risk (stage T3a or [place] 8-10 or PSA > 20) Social History [...] was greater than 20 (the blood test), [place] score (how aggressive the prostate cancer looked [...] ask you to undergo the MRI at [facility] and a CT simulation scan here [facility], typically 1-2 weeks after the placement [...] a prostate MRI which we do at [facility], that allows us to better see [...] within 4-6 weeks of completion radiation. 6. College Specialist Complications: These are more worrisome and are [...] for urination). There may be a slow, mcc decrease in your sexual function as well, [...] do not hesitate to call me at [phone] with any other questions or concerns you have. IfI am not here, one of our radiation oncology nurses can assist you or help you get in touch with me. A Radiation Oncology doctor is also post adoption coordinator after our normal hours and on weekends for urgent questions or concerns related to radiation treatments that can not wait until normal business hours. To reach the on-call doctor after-hours, just call and have the power system operator page the Radiation Oncologist post adoption coordinator. And, as always, if you experience any [...] injury 7. Uncontrollable bleeding Ronnie Trevizo MD Nuclear Medicine Officeradjunct professor of law Radiation Oncology [facility] documented in this encounter Progress Notes [...] na (Yes/No) Is patient coming from a Senior Care Facility? (Yes/No) no (If yes, patient needs to be accompanied by a caregiver for entire Exam and transport arrangements.) LEARNING ASSESSMENT REVIEWED: yes ADVANCED DIRECTIVE: PAIN ASSESSMENT: [0] out of 10 *eD-H Adult PCS Flow Sheet if 4 or above SOCIAL ASSESSMENT: See EDH social assessment information entered. Support Systems: live with Yaneth Barriers to treatment: none Referrals/Interventions: poultry process worker on day per routine. RADIATION SPECIFIC TEACHING:Will provide the following information on simulation day [facility] and You Site specific teaching :pelvis PLAN: Per Dr Vazquez's note * Ronnie Vazquez MD - 05/19/2016 9:00 AM EDT Images from the original note were not included. Radiation Oncology Consult [place] [address] Reason for Consultation: at least Group IIB, [...] Curran performed ultrasound-guided prostate biopsy that showed [place] 4+4 disease in 2 cores and Andre [...] and straining with nocturia once nightly. Urinary [id number] = 3. A comprehensive 14 point review [...] CHOLECYSTECTOMY, LAPAROSCOPIC ??? PROSTATE BIOPSY Medications 05/19/16 6934 Medication Sig Taking? 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 Estimated travel time by the patient to [facility] is 20 minutes, one-way. Smoking: never [...] 05/12/16) Other prognostic factors: +PNI Reviewed at [facility]: Y Imaging Review: I have personally reviewed the images from the CT of the abdomen and pelvis dated 05/12/2016 findings as per HPI of enlarged prostate with suspicious appearing right internal iliac node. Automobile Service Advisor image is shown below for reference. Assessment: Nain Mckeon is a 65-year-old man with at least high risk prostate cancer ([place] 8, PSA 47.5, clinical T2b). He has [...] this visit was spent counseling the patient [id number] in reviewing the workup of his diagnosis, [...] Visit Dermatology at [facility] [address] [place] [address] Prisca Hughes MD [facility] [place] [address] 02/07/2024 1:30 PM EST Office Visit Hematology/Oncology at [address] [phone] Harjinder Snyder MD [facility] DR HEMATOLOGY [place] [address] Bisi Cheng APRN [facility] [place] [address] documented as of this encounter Visit Diagnoses Diagnosis Cancer of prostate with high recurrence risk (stage T3a or [place] 8-10 or PSA > 20) Malignant neoplasm of prostate documented in this encounter Care Teams Scowman Relationship Specialty Start Date End Date Celio Sanders MD [address] [place] [address] PCP - General Internal Medicine 05/19/16 documented as of this encounter
--- OUTSIDE RECORDS SUMMARY | 2024-01-19 16:16 | XMS_ITS | Encounter Summary ---
Author Organization [facility] Address [facility] [place] [address] Care Team Providers Care Supervisor Lamp Shades Name Role Phone Angelica Mak MD Primary Care Provider [phone] Encounter Details Date Type Department Care Team (Late Contact Info) Description 05/17/2016 Telephone Radiation Oncology at [address] [phone] Harjeet Silvestre Social History Tobacco [...] [facility] [address] [place] [address] Prisca Hughes MD [facility] [address] [place] [address] 02/07/2024 1:30 PM EST Office Visit Hematology/Oncology at [address] [phone] Harjinder Snyder MD [facility] [place] [address] Bisi Cheng APRN [facility] DR MEDICAL ONCOLOGY [place], [place] [phone] documented as of this encounter Visit Diagnoses Not on filedocumented in this encounter Care Teams Supervisor Lamp Shades Relationship Specialty Start Date End Date Angelica Mak MD [address] [place] [address] PCP - General 01/27/10 05/18/16 documented as of this encounter
[2024-01-19 16:46] LABS: Bilirubin Negative (Negative); Blood Moderate (Negative); Clarity Sl Cloudy (Clear); Glucose Negative (Negative); Ketones Negative (Negative); Leukocyte Esterase Small (Negative); Nitrite Positive (Negative); Urobilinogen 0.2 mg/dL (Up to 0.2)
[2024-01-19 16:54] LABS: Bacteria Few HPF (Negative); C & S Indicated? C&S Done As Ordered; Crystals Negative HPF (Negative); Epithelial Cells Rare HPF (Negative); Mucus Trace (Negative); WBC >50 HPF (0-5)
== END 2024-01-19 16:05 | disposition home or self-care (01) ==
LOC: LBO 16:08
PROVIDERS: Urology; PCP Family Medicine; Visit Provider Internal Medicine
DX: R30.0 Dysuria (principal); R35.0 Frequency of micturition; R39.15 Urgency of urination
CPT/HCPCS: 87077; 81003; 81015; 87086; 87186

== ENCOUNTER 2024-02-01 11:34 | Outpatient (CLI) | payer MEDICARE, OTHER, SELFPAY ==
[2024-02-01 10:17] LABS: Abs Immature Grans 0.05 10^3/uL (0.0-0.06); Absolute Basophil Count 0.04 10^3/uL (0.0-0.2); Absolute Eosinophil Count 0.23 10^3/uL (0.0-0.7); Absolute Lymphocyte Count 2.24 10^3/uL (1.2-3.4); Absolute Monocyte Count 0.64 10^3/uL (0.1-0.8); Absolute Neutrophil Count 4.52 10^3/uL (1.2-6.7); Basophils % 0.5 %; HGB 10.2 g/dL (13.5-17.5); Immature Grans % 0.6 %; MCH 29.8 pg (27.0-33.0); MCHC 30.9 % (32.0-36.0); MCV 97 fL (80-95); Monocytes % 8.3 %; Neutrophils % 58.6 %; Platelet Count 290 10^3/uL (130-400); RBC 3.42 10^6/uL (4.36-5.78); RDW 15.3 % (11.8-14.1); RDW-SD 53.1 fL; WBC 7.72 10^3/uL (4.4-10.8)
[2024-02-01 10:38] LABS: ALT 31 U/L (16-63); AST 23 U/L (15-37); Albumin 3.6 g/dL (3.4-5.0); Alkaline Phosphatase 91 U/L (46-116); Anion Gap 7.5 mmol/L (3-11); BUN 23 mg/dL (7-18); Bilirubin, Total 0.65 mg/dL (0.2-1.0); CO2 28.5 mmol/L (21.0-32.0); CREATININE 1.2 mg/dL (0.70-1.30); Calcium 8.4 mg/dL (8.5-10.1); Chloride 108 mmol/L (98-107); Estimated GFR 63.07 (mL/min/1.73m2); Glucose 114 mg/dL (74-106); Potassium 4.3 mmol/L (3.5-5.1); Sodium 144 mmol/L (136-145); Total Protein 7.8 g/dL (6.4-8.2)
[2024-02-03 12:14] LABS: PSA, Ultrasensitive <0.01 ng/mL (<= 6.5)
[2024-02-04 10:23] LABS: Testosterone, Total 15 ng/dL (240-950)
== END 2024-02-01 11:35 | disposition home or self-care (01) ==
LOC: LBO 11:38
PROVIDERS: PCP Family Medicine; Visit Provider Internal Medicine
DX: C61 Malignant neoplasm of prostate (principal); C77.5 Secondary and unspecified malignant neoplasm of intrapelvic lymph nodes
CPT/HCPCS: 36415; 80053; 84153; 84403; 85025

== ENCOUNTER → 2024-02-06 14:02 | Outpatient (BNVA) | payer MEDICARE, OTHER, SELFPAY | PROVIDERS: PCP Family Medicine; Referring Provider Family Medicine; Visit Provider Urology | DX: N32.89 Other specified disorders of bladder (principal) | CPT/HCPCS: 99442 ==

== ENCOUNTER → 2024-02-14 08:59 | Outpatient (BNVA) | payer MEDICARE, OTHER, SELFPAY | PROVIDERS: PCP Family Medicine; Visit Provider Nurse Practitioner Gerontology | DX: Z46.6 Encounter for fitting and adjustment of urinary device (principal); R33.8 Other retention of urine | CPT/HCPCS: 51705 ==

== ENCOUNTER → 2024-03-12 07:55 | Outpatient (BNVA) | payer MEDICARE, OTHER, SELFPAY | PROVIDERS: PCP Family Medicine; Visit Provider Nurse Practitioner Gerontology | DX: R33.8 Other retention of urine (principal) | CPT/HCPCS: 51705; 81003; 99214 ==

== ENCOUNTER 2024-03-12 20:24 | Outpatient (REF) | payer MEDICARE, OTHER, SELFPAY | END 2024-03-12 20:25 | disposition home or self-care (01) | LOC: LBN 20:24 | PROVIDERS: PCP Family Medicine; Visit Provider Nurse Practitioner Gerontology | DX: R33.9 Retention of urine, unspecified (principal) | CPT/HCPCS: 87077; 87086 ==

== ENCOUNTER → 2024-03-20 15:35 | Outpatient (BNVA) | payer MEDICARE, OTHER, SELFPAY | PROVIDERS: PCP Family Medicine; Referring Provider Family Medicine; Visit Provider Urology | DX: R33.8 Other retention of urine (principal) | CPT/HCPCS: 98015; 99215 ==

== ENCOUNTER → 2024-03-27 13:29 | Outpatient (BNVA) | payer MEDICARE, OTHER, SELFPAY | PROVIDERS: PCP Family Medicine; Referring Provider Family Medicine; Visit Provider Urology | DX: R33.8 Other retention of urine (principal); C61 Malignant neoplasm of prostate | CPT/HCPCS: 98015; 99215 ==

== ENCOUNTER 2024-03-28 19:15 | Outpatient (REF) | payer MEDICARE, OTHER, SELFPAY ==
[2024-03-28 18:26] LABS: Bilirubin Color Interference (Negative); Blood Color Interference (Negative); Clarity Cloudy (Clear); Glucose Color Interference mg/dL (Negative); Ketones Color Interference mg/dL (Negative); Leukocyte Esterase Color Interference (Negative); Nitrite Color Interference (Negative); Specific Gravity 1.032 (1.005-1.025); Urobilinogen Color Interference mg/dL (Up to 0.2)
[2024-03-28 18:27] LABS: C & S Indicated? Yes; WBC >50 HPF (0-5)
== END 2024-03-28 19:16 | disposition home or self-care (01) ==
LOC: NCHCN 19:15
PROVIDERS: PCP Family Medicine; Visit Provider Nurse Practitioner Gerontology
DX: N48.89 Other specified disorders of penis (principal)
CPT/HCPCS: 87077; 81003; 81015; 87086; 87186

== ENCOUNTER 2024-04-09 12:59 | Observation (INO) | payer MEDICARE, OTHER, SELFPAY ==
[2024-04-09] VITALS (40 sets, daily range): BP systolic 74–157; BP diastolic 36–90; PULSE 62–105; RESP 9–25; TEMP 36.3–37.4; O2SAT 88–95; BMI 31.5
[2024-04-09] MEDS: Lactated Ringers 1,000 ML 80 ML IV ×2 (07:05→14:00)
--- NOTE | 2024-04-09 07:06 | HPE_ITS ---
Date of service: 04/09/24 Time of Service: 07:22 Assessment and Plan Assessment and plan (1) Urinary retention: Status: Acute (2) Prostate cancer: Status: Chronic Assessment and plan: We will perform cystoscopy and transurethral resection of the prostate. We will use a channel TURP as to minimize the potential side effects of incontinence and strictures. We will plan on keeping him here in the hospital overnight for continuous bladder irrigation. History of Present Illness History of Present Illness Chief Complaint: Urinary Retention Narrative: This is a 73-year-old gentleman who has a history of adenocarcinoma of the prostate. He was treated with interstitial radiation therapy at the [facility]. The treatments were done about 10 months ago. Following the procedure, he developed urinary retention. He has had indwelling urethral catheters followed by placement of a suprapubic tube. He was not able to perform CIC. He has failed maximal medical therapy. He presents now for transurethral re section of the prostate. Review of Systems Narrative: No fevers or chills Cataracts. No dysphasia No diabetes or thyroid dysfunction No shortness of breath, cough or hemoptysis No chest pain or palpitations No nausea, vomiting, hepatitis, ulcers, jaundice Bipolar disorder. Tardive dyskinesia. No seizures, strokes or peripheral neuropathy No bleeding disorders or anemia No gout PFSH All Active Problems Urinary retention (Acute) Right lateral epicondylitis (Acute) Left carpal tunnel syndrome (Acute) Intra-articular fracture of distal end of radius with volar angulation (Acute) Fracture of left distal radius (Acute) Neuroleptic-induced tardive dyskinesia (Acute) BRCA2 gene mutation positive (Acute) Prediabetes (Acute) Family history of colon cancer (Acute) Major depression (Chronic) Suicide ideation (Acute) Bipolar disorder, manic (Acute) Prostate cancer (Chronic) Hyperlipidemia (Chronic) Hypothyroidism (Chronic) Memory loss (Acute) Drug-induced tremor (Acute) Discharge planning issues (Acute) Medical History Psoriasis Surgical History History of colonoscopy (~07/2013) S/P appendectomy S/P cholecystectomy S/P tonsillectomy Family History Father Alzheimer disease Prostate cancer Anxiety Mother Colon cancer Heart disease Social History Smoking/Tobacco Use Status: Never Smoking risk assessment performed?: Yes Alcohol Intake: current Alcohol Intake frequency: holidays/special occasions only Drug use: Never Substance use type: does not use Household members: spouse Housing: house Number of Children: 2 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; [employer] Do you feel safe at home: Yes Do you feel safe in your relationship?: Yes Meds Allergies and Home Medications Allergies Allergy/AdvReac Type Severity Reaction Status Date / Time No Known Allergies Allergy Verified 04/06/24 08:56 Home Medications ?Medication ?Instructions ?Recorded ?Confirmed ?Type pravastatin 20 mg tablet 40 mg PO DAILY 01/25/19 04/09/24 History duloxetine 60 mg capsule,delayed 30 mg PO BID 09/15/21 04/09/24 History release (Cymbalta) multivitamin 1 tab PO DAILY 02/02/22 04/09/24 History turmeric 450 mg-turmeric root 1 cap PO DAILY 02/02/22 04/09/24 History extract 50 mg capsule acetaminophen 500 mg tablet 500 mg PO Q6H PRN pain #60 tabs 02/10/22 04/09/24 Rx ibuprofen 600 mg tablet 600 mg PO TID PRN pain #60 tabs 02/10/22 04/09/24 Rx tamsulosin 0.4 mg capsule 0.8 mg (2 x 0.4 mg) PO DAILY #180 07/26/23 04/09/24 Rx caps carnosine 500 mg capsule 500 mg PO .daily' 11/09/23 04/09/24 History (L-Carnosine) lamotrigine 150 mg tablet 150 mg PO BID 12/15/23 04/09/24 History levofloxacin 500 mg tablet 500 mg PO DAILY #5 tabs 03/05/24 04/09/24 Rx gabapentin 300 mg capsule 300 mg PO TID PRN pain #60 caps 03/20/24 04/09/24 Rx hyoscyamine sulfate 0.125 mg 0.125 mg PO BID-QID PRN bladder 03/29/24 04/09/24 Rx tablet (Levsin) spasms #60 tabs phenazopyridine 200 mg tablet 200 mg PO Q8H PRN pain #20 tabs 04/05/24 04/09/24 Rx (Pyridium) levothyroxine 75 mcg tablet 75 mcg PO DAILY 04/06/24 04/09/24 History Exam Const General: cooperative and comfortable Neck Neck: supple Resp Effort & Inspection: normal respiratory effort Auscultation: clear to auscultation bilaterally Cardio Rate: regular rate Rhythm: regular rhythm GI Palpation: soft Other: suprapubic tube in place Neuro General: patient alert, patient awake and patient oriented x3 Results Last Vital Signs Temp 36.4 C L 04/09/24 06:20 Pulse 62 04/09/24 06:20 Resp 20 04/09/24 06:20 BP 106/55 L 04/09/24 06:20 Pulse Ox 94 04/09/24 06:20 Time Spent Time spent with Patient: <40 minutes Time was spent: preparing to see the patient(eg.review tests) and referring, communicating with other health foster care case manager
--- NOTE | 2024-04-09 07:07 | W.ANESPRE ---
General Info Date of Service Date Performed: 04/09/24 Height: 5 ft 3 in Weight: 80.8 kg Body Mass Index (BMI): 31.5 Surgical Procedure: Operation Date: 04/09/24 07:40 Proposed Procedure Side Surgeon p Cystoscopy w/Transurethral Resection Prostate Elias Curran MD Meds Allergies and Home Medications Allergies Allergy/AdvReac Type Severity Reaction Status Date / Time No Known Allergies Allergy Verified 04/06/24 08:56 Home Medication ?Medication ?Instructions ?Recorded pravastatin 20 mg tablet 40 mg PO DAILY 01/25/19 duloxetine 60 mg capsule,delayed 30 mg PO BID 09/15/21 release (Cymbalta) multivitamin 1 tab PO DAILY 02/02/22 turmeric 450 mg-turmeric root 1 cap PO DAILY 02/02/22 extract 50 mg capsule acetaminophen 500 mg tablet 500 mg PO Q6H PRN pain #60 tabs 02/10/22 ibuprofen 600 mg tablet 600 mg PO TID PRN pain #60 tabs 02/10/22 tamsulosin 0.4 mg capsule 0.8 mg (2 x 0.4 mg) PO DAILY #180 07/26/23 caps carnosine 500 mg capsule 500 mg PO .daily' 11/09/23 (L-Carnosine) lamotrigine 150 mg tablet 150 mg PO BID 12/15/23 levofloxacin 500 mg tablet 500 mg PO DAILY #5 tabs 03/05/24 gabapentin 300 mg capsule 300 mg PO TID PRN pain #60 caps 03/20/24 hyoscyamine sulfate 0.125 mg 0.125 mg PO BID-QID PRN bladder 03/29/24 tablet (Levsin) spasms #60 tabs phenazopyridine 200 mg tablet 200 mg PO Q8H PRN pain #20 tabs 04/05/24 (Pyridium) levothyroxine 75 mcg tablet 75 mcg PO DAILY 04/06/24 Current Visit Medications: Current Medications Generic Name Dose Route Start Last Admin Trade Name Freq PRN Reason Stop Dose Admin Levofloxacin 500 mg in 100 mls @ 100 mls/hr 04/09/24 06:00 Levaquin Premixed Bag IVPB 04/09/24 16:00 PREOP SUZANNE Ringer's Solution 1,000 mls @ 80 mls/hr 04/09/24 06:35 04/09/24 07:05 IV 05/09/24 06:34 80 mls/hr INFUSION SUZANNE Administration IV Miscellaneous Supplies 1 each 04/09/24 06:00 Iv Access IV 04/09/24 23:59 DIRECTED SUZANNE Sodium Chloride 0 ml 04/09/24 06:00 Normal Saline Flush 10 Ml Syr IV 04/09/24 23:59 PRN PRN Sodium Chloride 0 ml 04/09/24 06:00 Normal Saline 10 Ml Vial IJ 04/09/24 23:59 DIRECTED PRN Sterile Water 0 ml 04/09/24 06:00 Water,Injection,Sterile 10 Ml Vial IJ 04/09/24 23:59 DIRECTED PRN PFSH Active Problems Active Problems: Problem Status Onset Code Urinary retention Acute R33.9 Cortical age-related cataract, left eye Resolved H25.012 Nuclear age-related cataract, left eye Resolved H25.12 Cortical cataract of right eye Resolved H26.9 Nuclear age-related cataract, right eye Resolved H25.11 Right lateral epicondylitis Acute M77.11 Left carpal tunnel syndrome Acute G56.02 Intra-articular fracture of distal end of radius with volar angulation Acute S52.579A Fracture of left distal radius Acute S52.502A Neuroleptic-induced tardive dyskinesia Acute G24.01, T43.505A BRCA2 gene mutation positive Acute Z15.01, Z15.09 Prediabetes Acute R73.03 Family history of colon cancer Acute Z80.0 Major depression Chronic F32.9 Suicide ideation Acute R45.851 Bipolar disorder, manic Acute F31.10 Prostate cancer Chronic C61 Hyperlipidemia Chronic E78.5 Hypothyroidism Chronic E03.9 Memory loss Acute R41.3 Drug-induced tremor Acute G25.1 Discharge planning issues Acute Z02.9 Medical History Medical History Psoriasis Surgical History Surgical History History of colonoscopy (~07/2013) S/P appendectomy S/P cholecystectomy S/P tonsillectomy Tobacco Smoking/Tobacco Use Status: Never Alcohol Alcohol Intake: current Alcohol intake frequency: holidays/special occasions only Substance Use Substance use: Never Substance use type: does not use Vital Signs and Lab Results Vital Signs Most Recent Vital Signs in EMR: Most Recent Vital Signs Temp Pulse Resp BP Pulse Ox 36.4 C L 62 20 106/55 L 94 04/09/24 06:20 04/09/24 06:20 04/09/24 06:20 04/09/24 06:20 04/09/24 06:20 Lab Results Blood Type / Crossmatch: Antibody Screen Pending 04/09/24 Complete Blood Count: No Data to Display Complete Metabolic Panel: No Data to Display Liver Function Panel: No Data to Display Coagulation Panel: No Data to Display Cardiac Panel: No Data to Display Arterial Blood Gas: No Data to Display Venous Blood Gas: No Data to Display Pancreas Panel: No Data to Display Thyroid Panel: No Data to Display Infectious Disease: No Data to Display Blood Cultures: No Data to Display Toxicology Panel: No Data to Display Imaging and Studies Imaging and Studies Study information below may be from another EMR and interpreted by another provider. Please see original notes in EMR for more complete details. EKG Summary: 10/22/2019: Conclusion Atrial flutter with predominant 3:1 AV block...A-rate 245, multiple Ps Inferior infarct, old...Q >35mS, II III aVF Anesthesia Assessment and Plan Anesthesia History Personal History: No History of Anesthesia Complications Family History: No Family History of Anesthesia Complications Exercise Tolerance Exercise Tolerance: Metabolic Equivalents>4 Pertinent Negatives Pertinent Negatives: No Symptoms of GERD, No Major Cardiovascular Symptoms or Complaints and No Major Pulmonary Symptoms or Complaints Cardiac & Pulmonary Exam Cardiac Exam: Normal S1/S2 Heart Sounds Pulmonary Exam: Clear Bilateral Breath Sounds Implantable Cardiac Device Does patient have a Pacemaker or an ICD?: No Airway Exam Known Difficult Airway: No Mallampati Class: 4 Mouth Opening: Normal (> 3cm) Thyromental Distance: Greater than 3 cm Neck Range of Motion: Full ROM Neck Circumference: Normal Teeth Condition: Normal Dentition ASA Classification ASA Score: ASA 3 Emergency Case?: No NPO Status NPO Status: NPO Clears >2 hours, Solids >8 hours Anesthesia Plan Resuscitation Status: Full Code Anesthesia Technique: Spinal Anesthesia (GETA as a backup plan) Airway Planned: Natural Airway Monitors Used: Standard Monitors Preoperative Comments:: History of tardive dyskinesia, Mal 4, discussed GA/LMA/ETT and spinal. Patient asked appropriate questions and ready to proceed with spinal and sedation. GA ETT as backup plan
[2024-04-09] MEDS: levoFLOXacin 500 MG/100 ML BAG 100 MG IVPB (11:58)
[2024-04-09] MEDS: Lidocaine 2% Jelly 11 ML SYR (12:26)
--- NOTE | 2024-04-09 12:50 | PROST_PTH ---
PATIENT: Nain Mckeon LOC: U#:[id number] AGE/SX: 73/M [facility]: Elias Curran MD : [id number] BED: A DIS: 04/10/2024 SPEC #: [id number] RECD: 04/09/24 13:43 STATUS: YVETTE REQ #: [id number] STACY: 04/09/24 12:[address]: Elias Curran DEPT: Surgical Specimen RECD BY: Florencia Duque ENTERED: 04/09/24 13:44 SP TYPE: PROST OTHR DR: Dewayne Mckinley Tissues: 1 - PROSTATE CURRETTINGS Procedures: GROSS AND MICRO LEVEL 4 IMMUNOPEROXIDASE STAIN Comments: [id number]
[2024-04-09] MEDS: fentaNYL 100 MCG/2 ML VIAL IVP ×2 (13:10→13:18)
--- NOTE | 2024-04-09 13:10 | ROE_ITS ---
Operative Note Operative Note PRE-OP DIAGNOSIS: Urinary retention POST-OP DIAGNOSIS: same PROCEDURE: cystoscopy with TURP SURGEON: Elias Curran ANESTHESIA TYPE: Local By Surgeon and General LMA/ETT Refer to Anesthesia Record ESTIMATED BLOOD LOSS: 50 PATHOLOGY: other (prostate tissue) COMPLICATIONS: None Patient was transported to: PACU Patient's condition: stable Implants: 20 Macedonian Coude tipped irrigating webber catheter with 30 cc sterile water in balloon Indications: This is a 73-year-old gentleman who has a history of prostate cancer. He received interstitial radiation at the [facility] in [place]. Following the procedure, he developed urinary retention. He failed maximal medical therapy. At first he was managed with a urethral catheter. We then switched over to a suprapubic tube. We have now passed multiple half-lives of the radioactive element that was utilized, so it is safe to proceed with transurethral resection of the prostate Findings: lateral lobe enlargement of prostate Procedure Description: The patient was brought to the operating room on 04/09/2024. He was given preoperative IV antibiotics. After successful induction of general anesthesia, he was placed in the dorsal lithotomy position. His genitalia was prepped and draped. His suprapubic tube was clamped. 2% Xylocaine jelly was instilled into the urethra to act as a local anesthetic. A 22 Macedonian rigid cystoscope was passed through the urethra into the bladder. The urethra and bladder were inspected with the 30 degree lens. The pendulous, bulbar and membranous urethra all appeared normal with no strictures. The prostatic urethra showed significant lateral lobe enlargement and a very small median lobe. The bladder neck was entered and the bladder mucosa was inspected. The suprapubic balloon could be seen inflated up toward the dome. The remainder of the bladder appeared trabeculated with some erythematous patches of mucosa. No papillary or nodular masses were identified. We then removed the cystoscope and passed a 24 Macedonian resectoscope sheath thro ugh the urethra into the bladder. Transurethral resection of the prostate was performed from the bladder neck out to the [facility]. We did not resect all the way down to the prostatic capsule. Instead, we resected down until the metallic implants in the prostate were identified. There was 1 such implant on each side and the implants were removed and discarded. We then cauterized the prostatic fossa with a plasma button. All resected tissue was evacuated and sent to pathology for permanent section. Once hemostasis was achieved, the bladder was filled with irrigant and the resectoscope was removed. A 20 Macedonian hematuria catheter was passed through the urethra into the bladder. The catheter balloon was inflated with 30 cc of sterile water. Continuous bladder irrigation was begun and the irrigant was crystal-clear. Because of the clarity of the irrigation we elected to remove his suprapubic tube. I deflated the suprapubic catheter balloon and removed 10 cc of sterile water. The catheter was then removed and a dry dressing was applied to the suprapubic site. The urethral catheter drainage port was hooked to a drainage bag. The patient tolerated this procedure well with no complications. He was taken to the recovery room in stable condition. Date of Procedure: 04/09/24
[2024-04-09] MEDS: HYDROmorphone 1 MG/ML SYR IVP ×2 (13:11→13:24)
[2024-04-09] MEDS: Hyoscyamine 0.125 MG SL/ORAL/CHEW SL (13:44)
--- NOTE | 2024-04-09 13:56 | W.ANESPOSTOP ---
Postoperative Evaluation Date, Time and Location Date Performed: 04/09/24 Time Performed: 13:56 Patient Location: PACU Vital Signs Most Recent Imported Vital Signs: Most Recent Vital Signs Temp Pulse Resp BP Pulse Ox 37.1 C 92 H 18 140/71 93 04/09/24 13:30 04/09/24 11:25 04/09/24 11:25 04/09/24 11:25 04/09/24 11:25 Pain Score Most Recent Pain Score: Most Recent Pain Score Pain Level 5 04/09/24 13:45 Assessment Mental Status: Awake (Alert & Oriented to Patient Baseline) Airway and Respiratory Function: Abnormal Respiratory exam (See explanation) (requiring 2 lpm ) and Patient has been admitted and is receiving care as an inpatient Cardiovascular Function: Hemodynamically Stable Hydration Status: Adequately Hydrated Nausea & Vomiting: No Nausea or Vomiting Pain: Pain is tolerable per patient Peripheral Nerve Block: Patient did not receive a nerve block
[2024-04-09] MEDS: Docusate Sodium 100 MG CAP PO (20:38)
[2024-04-09] MEDS: lamoTRIgine 100 MG TAB 150 MG PO (20:38)
[2024-04-09] MEDS: DULoxetine 30 MG CAP PO (20:38)
[2024-04-09] MEDS: Normal Saline Flush 10 ML SYR IV (20:39)
[2024-04-10 02:47] VITALS: BP 111/73; PULSE 85; RESP 16; TEMP 37.1; O2SAT 94
[2024-04-10] MEDS: Levothyroxine 75 MCG TAB PO (05:29)
[2024-04-10] MEDS: Ketorolac 15 MG/ML VIAL IVP (05:38)
[2024-04-10 07:12] LABS: Abs Immature Grans 0.05 10^3/uL (0.0-0.06); Absolute Eosinophil Count 0.01 10^3/uL (0.0-0.7); Absolute Monocyte Count 1.04 10^3/uL (0.1-0.8); Absolute Neutrophil Count 10.34 10^3/uL (1.2-6.7); Basophils % 0.1 %; Eosinophils % 0.1 %; HCT 28.1 % (40.0-50.0); Immature Grans % 0.4 %; Lymphocytes % 14.9 %; MCH 30.5 pg (27.0-33.0); MCV 95 fL (80-95); MPV 8.6 fL (8.0-11.0); Monocytes % 7.7 %; Neutrophils % 76.8 %; Platelet Count 301 10^3/uL (130-400); RBC 2.95 10^6/uL (4.36-5.78); RDW 13.7 % (11.8-14.1); RDW-SD 47.3 fL; WBC 13.46 10^3/uL (4.4-10.8)
[2024-04-10 07:20] LABS: Absolute Basophil Count 0.01 10^3/uL (0.0-0.2); Absolute Lymphocyte Count 2.01 10^3/uL (1.2-3.4)
--- NOTE | 2024-04-10 07:23 | PGE_ITS ---
Date of Service Date of service: 04/10/24 Time of Service: 07:23 Assessment and Plan Assessment and plan (1) Urinary retention: Status: Acute Assessment and plan: We will discontinue his bladder irrigation and his IV fluids. We will get him up and ambulating to make sure the urine does not become more bloody with activity. I will recheck him in an hour to and decide if we can send him home either with or without his urethral catheter. Subjective Subjective Interval history since last seen: He had a fairly comfortable night and only required 1 dose of ketorolac IV. He did not develop any clot retention He is tolerating oral medications. Exam Narrative Exam Narrative: He appears comfortable His vital signs are documented elsewhere His urine is clear with bladder irrigation at a very slow rate He is awake and alert His morning labs are still pending Objective Last Vital Signs Temp 37.1 C 04/10/24 02:47 Pulse 85 04/10/24 02:47 Resp 16 04/10/24 02:47 BP 111/73 04/10/24 02:47 Pulse Ox 94 04/10/24 02:47 Laboratory Results - last 24 hr 04/09/24 04/10/24 07:15 06:47 WBC 13.46 H RBC 2.95 L Hgb 9.0 L Hct 28.1 L MCV 95 MCH 30.5 MCHC 32.0 RDW 13.7 Plt Count 301 MPV 8.6 Immature Gran % 0.4 Neutrophils % 76.8 Lymphocytes % 14.9 Monocytes % 7.7 Eosinophils % 0.1 Basophils % 0.1 Nucleated RBC % 0.0 Absolute Neutrophils 10.34 H Absolute Lymphocytes 2.01 Absolute Monocytes 1.04 H Absolute Eosinophils 0.01 Absolute Basophils 0.01 ABO/Rh A Positive Antibody Screen NEGATIVE Time Spent with Patient Time Spent with Patient: <25 minutes Time was spent: preparing to see the patient(eg.review tests), obtaining and/or reviewing separately otained hiistory and referring, communicating with other health home health care physician
[2024-04-10 07:33] LABS: Anion Gap 6.7 mmol/L (3-11); BUN 31 mg/dL (7-18); CO2 29.3 mmol/L (21.0-32.0); CREATININE 1.3 mg/dL (0.70-1.30); Calcium 8.9 mg/dL (8.5-10.1); Chloride 105 mmol/L (98-107); Estimated GFR 57.29 (mL/min/1.73m2); Glucose 158 mg/dL (74-106); Potassium 4.1 mmol/L (3.5-5.1); Sodium 141 mmol/L (136-145)
[2024-04-10] MEDS: Docusate Sodium 100 MG CAP PO (07:34)
[2024-04-10] MEDS: DULoxetine 30 MG CAP PO (07:34)
[2024-04-10] MEDS: lamoTRIgine 100 MG TAB 150 MG PO (07:34)
[2024-04-10] MEDS: Acetaminophen 325 MG TAB 650 MG PO (07:34)
[2024-04-10] MEDS: Normal Saline Flush 10 ML SYR IV (07:35)
[2024-04-10 07:47] VITALS: BP 130/56; PULSE 85; RESP 20; TEMP 37; O2SAT 92
[2024-04-10] MEDS: Pravastatin 20 MG TAB 40 MG PO (08:30)
[2024-04-10] MEDS: Multivitamin TAB 1 TAB PO (08:30)
--- NOTE | 2024-04-10 09:11 | DSE_ITS ---
Date of service: 04/10/24 Time of Service: 09:12 DS: Diagnosis Discharge Diagnosis (1) Urinary retention: Status: Acute Discharge Plan Disposition Patient Disposition: Home Condition: Improving Discharge Details Reason For Visit: Urinary Retention Admit Date/Time: 04/09/24 12:59 Admit Provider: Elias Curran Attending Provider: Elias Curran Primary Care Provider: Deway[facility] Course Hospital Course: The patient was admitted and taken to the operating room on 04/09/2024. He underwent cystoscopy and transurethral resection of his prostate. He was then admitted to the medical surgical unit for continuous bladder irrigation. He remained fairly comfortable overnight. His urine was remarkably clear with no clots. He did have some bleeding around his catheter however. On postoperative day #1, he was able to tolerate oral nutrition and medications. His bladder irrigation was successfully discontinued. He is being discharged to home on postoperative day #1. Home Meds and New Rx's Prescriptions: Continued L-Carnosine 500 mg capsule 500 mg PO .daily' duloxetine [Cymbalta] 60 mg capsule,delayed release(DR/EC) 30 mg PO BID multivitamin Tablet 1 tab PO DAILY turmeric-turmeric root extract 450-50 mg capsule 1 cap PO DAILY tamsulosin 0.4 mg capsule 0.8 mg PO DAILY Qty: 180 4RF hyoscyamine sulfate [Levsin] 0.125 mg tablet 0.125 mg PO BID-QID PRN (Reason: bladder spasms) Qty: 60 3RF phenazopyridine [Pyridium] 200 mg tablet 200 mg PO Q8H PRN (Reason: pain) Qty: 20 0RF acetaminophen 500 mg tablet 500 mg PO Q6H PRN (Reason: pain) Qty: 60 2RF ibuprofen 600 mg tablet 600 mg PO TID PRN (Reason: pain) Qty: 60 0RF levothyroxine 75 mcg tablet 75 mcg PO DAILY Patient Comments: TAKE ONE TABLET BY MOUTH EVERY DAY pravastatin 40 mg tablet 40 mg PO QPM Patient Comments: TAKE ONE TABLET BY MOUTH EVERY EVENING lamotrigine 150 mg tablet 150 mg PO BID Patient Comments: TAKE ONE TABLET BY MOUTH TWICE A DAY Discontinued gabapentin 300 mg capsule 300 mg PO TID PRN (Reason: pain) Qty: 60 0RF levofloxacin 500 mg tablet 500 mg PO DAILY Qty: 5 0RF Rx Instructions: start taking 3 days prior to catheter change Discharge Instructions Additional Instructions: Alvarez catheter to drainage bag-catheter plug to irrigation port Follow-up in 2 to 5 days for catheter removal Additional follow-up appointment in about 2 weeks to review surgical pathology Activity:: No lifting over 10 pounds Equipment/Supplies:: Alvarez to drainage bag Diet:: As Tolerated Discharge Orders Discharge Orders: Discharge Order (Routine); Ordered 04/10/24 Ordered By: Elias Curran DS: Summary Time Spent with Patient providing and/or coordinating discharge services: Less than 30 minutes Status at Discharge Functional status at discharge: independent ambulation Overall status at discharge: patient is progressing back to baseline Mental Status: mental status grossly normal Speech and Movement: speech and movement normal Mood: congruent mood Affect: normal affect Quality:SDOH Health Related Social Needs: No Data to Display Exam Narrative Exam Narrative: On the morning of discharge, he appears comfortable His vital signs are documented elsewhere in the chart His chest wall motion is normal. He is not short of breath at rest. His abdomen is soft with no guarding or rebound tenderness His urethral catheter is draining clear urine. There is some bloody drainage around the catheter however He is awake and alert Psych Mental Status: mental status grossly normal Speech and Movement: speech and movement normal Mood: congruent mood Affect: normal affect DS: Data Vitals/I&O Vitals and I&O: Vital Signs Temperature 37.0 C 04/10/24 07:47 Temperature Source Temporal Artery Scan 04/10/24 07:47 Pulse 85 04/10/24 07:47 Pulse Rhythm Regular 04/09/24 14:49 Pulse 82 04/09/24 14:15 Respiratory Rate 20 04/10/24 07:47 Respiratory Effort Normal 04/09/24 14:49 Respiratory Depth Normal 04/09/24 14:49 Respiratory Pattern Normal 04/09/24 14:49 Blood Pressure 130/56 L 04/10/24 07:47 Blood Pressure Mean 61 04/09/24 14:15 Pulse Oximetry 92 04/10/24 07:47 Respiratory End-tidal CO2 37 04/09/24 14:30 Oxygen Delivery Method Room Air 04/10/24 07:47 Oxygen Flow Rate 0 04/10/24 07:47 Pain Level 2 04/10/24 07:34 Comment pt voided 200ml dark ro urine. 04/09/24 11:32 Intake & Output 04/09/24 04/09/24 04/10/24 11:59 23:59 11:59 Intake Total 1698.667 / 1698.667 600 / 600 Output Total / 2400 / 2400 Balance -34148.333 / -46954.333 -1800 / -1800 Weight 80.8 kg 80.931 kg Intake: IV 1478.667 / 1478.667 Oral 220 / 220 600 / 600 Output: Urine / 2400 / 2400 Other: Urine Color Pale Pale Straw Yellow Urine Appearance Clear Clear Comment Also recorded in voiding assessment (not duplicate) Emesis Description None Data Completed and Pending Labs on day of discharge: Labs from last 24 hours 04/10/24 06:47 WBC 13.46 H RBC 2.95 L Hgb 9.0 L Hct 28.1 L MCV 95 MCH 30.5 MCHC 32.0 RDW 13.7 Plt Count 301 MPV 8.6 Immature Gran % 0.4 Neutrophils % 76.8 Lymphocytes % 14.9 Monocytes % 7.7 Eosinophils % 0.1 Basophils % 0.1 Nucleated RBC % 0.0 Absolute Neutrophils 10.34 H Absolute Lymphocytes 2.01 Absolute Monocytes 1.04 H Absolute Eosinophils 0.01 Absolute Basophils 0.01 Sodium 141 Potassium 4.1 Chloride 105 Carbon Dioxide 29.3 Anion Gap 6.7 BUN 31 H Creatinine 1.3 Est GFR (CKD-EPI 2020) 57.29 Glucose 158 H Calcium 8.9 PFSH All Active Problems Urinary retention (Acute) Right lateral epicondylitis (Acute) Left carpal tunnel syndrome (Acute) Intra-articular fracture of distal end of radius with volar angulation (Acute) Fracture of left distal radius (Acute) Neuroleptic-induced tardive dyskinesia (Acute) BRCA2 gene mutation positive (Acute) Prediabetes (Acute) Family history of colon cancer (Acute) Major depression (Chronic) Suicide ideation (Acute) Bipolar disorder, manic (Acute) Prostate cancer (Chronic) Hyperlipidemia (Chronic) Hypothyroidism (Chronic) Memory loss (Acute) Drug-induced tremor (Acute) Discharge planning issues (Acute) Medical History Psoriasis Surgical History History of colonoscopy (~07/2013) S/P tonsillectomy S/P cholecystectomy S/P appendectomy Family History Father Alzheimer disease Prostate cancer Anxiety Mother Colon cancer Heart disease Social History Smoking/Tobacco Use Status: Never Smoking risk assessment performed?: Yes Alcohol Intake: current Alcohol Intake frequency: holidays/special occasions only Drug use: Never Substance use type: does not use Household members: spouse Housing: house Number of Children: 2 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
--- NOTE | 2024-04-10 12:38 | PDOC.CMPRO ---
Date of service: 04/10/24 Time of Service: 12:38 Care Management Progress Note Progress Note Text Progress Note Text: Nain was admitted on 04/09/24 and went to surgery for a Cysto and TURP. He did well post-operatively and was able to be discharged home this morning. He will follow up with Dr. Curran and his plan of care and transport with his family. Discharge Potential Discharge Needs: Surgical F/U Appt Anticipated Barriers to Discharge: None Identified Patient/Family Education Needs: Review discharge instructions, discuss Ask Me Three Transportation: Private vehicle Social Determinants of Health Screening Social Determinants of Health last assessed: 04/10/24 Will the Patient Participate in the Screening?: Yes Do you worry about having a steady place to live?: no Problems where you live: no known problems In the past 12 months, have you had to go without electric, gas, oil or water in your home?: no Have you or anyone in your house had to go without enough food to eat?: no Has lack of transportation kept you from medical appointments or from doing things needed for daily living?: no Has anyone in your life made you feel unsafe or unsupported?: no How hard is it for you to pay for the very basics like food, housing, medical care, and heating? Would you say it is:: Not hard at all Do you want help finding or keeping work or a job?: I do not need or want help If for any reason you need help with day-to-day activities such as bathing, preparing meals, shopping, managing finances, etc., do you get the help you need?: I don?t need any help How often do you feel lonely or isolated from those around you?: Never Do you speak a language other than Arabic at home?: No
== END 2024-04-10 13:00 | disposition home or self-care (01) ==
LOC: MS 14:35
PROVIDERS: Admitting Provider Urology; PCP Family Medicine; Visit Provider Urology
PROC: 0VT08ZZ Resection of Prostate, Via Natural or Artificial Opening Endoscopic (ICD-10-PCS; CPT 52601; principal; 2024-04-09 07:30)
DX: C61 Malignant neoplasm of prostate (principal); R33.9 Retention of urine, unspecified; R73.03 Prediabetes; Z93.51 Cutaneous-vesicostomy status; Z80.0 Family history of malignant neoplasm of digestive organs; F31.89 Other bipolar disorder; E03.9 Hypothyroidism, unspecified; E78.5 Hyperlipidemia, unspecified; R41.3 Other amnesia; G24.01 Drug induced subacute dyskinesia
CPT/HCPCS: 52601; 36415; 80048; 86850; 86900; 86901; 88305; 99223; 85025; 88361; J0131; J1100; J1171; J1885; J1956; J2003; J2405; J2704; J3010; J3475; J3490

== ENCOUNTER → 2024-04-16 08:02 | Outpatient (BNVA) | payer MEDICARE, OTHER, SELFPAY | PROVIDERS: PCP Family Medicine; Referring Provider Family Medicine; Visit Provider Nurse Practitioner Gerontology | DX: C61 Malignant neoplasm of prostate (principal); R33.8 Other retention of urine ==

== ENCOUNTER → 2024-04-30 11:01 | Outpatient (BNVA) | payer MEDICARE, OTHER, SELFPAY | PROVIDERS: PCP Family Medicine; Referring Provider Family Medicine; Visit Provider Urology | DX: R33.8 Other retention of urine (principal) | CPT/HCPCS: 76775; 99214 ==

== ENCOUNTER 2024-05-03 02:55 | Outpatient (CLI) | payer MEDICARE, OTHER, SELFPAY ==
[2024-05-03 09:17] LABS: Abs Immature Grans 0.03 10^3/uL (0.0-0.06); Absolute Basophil Count 0.06 10^3/uL (0.0-0.2); Absolute Eosinophil Count 0.24 10^3/uL (0.0-0.7); Absolute Lymphocyte Count 1.99 10^3/uL (1.2-3.4); Absolute Monocyte Count 0.72 10^3/uL (0.1-0.8); Absolute Neutrophil Count 5.33 10^3/uL (1.2-6.7); Basophils % 0.7 %; Eosinophils % 2.9 %; HGB 10.2 g/dL (13.5-17.5); Immature Grans % 0.4 %; Lymphocytes % 23.8 %; MCH 29.7 pg (27.0-33.0); MCHC 30.9 % (32.0-36.0); MCV 96 fL (80-95); MPV 8.2 fL (8.0-11.0); Monocytes % 8.6 %; Neutrophils % 63.6 %; Platelet Count 425 10^3/uL (130-400); RBC 3.44 10^6/uL (4.36-5.78); RDW 14.1 % (11.8-14.1); RDW-SD 49.8 fL; WBC 8.37 10^3/uL (4.4-10.8)
[2024-05-03 09:32] LABS: ALT 21 U/L (16-63); AST 21 U/L (15-37); Albumin 3.6 g/dL (3.4-5.0); Alkaline Phosphatase 88 U/L (46-116); Anion Gap 9.7 mmol/L (3-11); BUN 23 mg/dL (7-18); Bilirubin, Total 0.23 mg/dL (0.2-1.0); CO2 26.3 mmol/L (21.0-32.0); CREATININE 1.2 mg/dL (0.70-1.30); Calcium 9.2 mg/dL (8.5-10.1); Chloride 104 mmol/L (98-107); Estimated GFR 63.07 (mL/min/1.73m2); Glucose 114 mg/dL (74-106); Potassium 4.4 mmol/L (3.5-5.1); Sodium 140 mmol/L (136-145); Total Protein 8.2 g/dL (6.4-8.2)
[2024-05-05 15:35] LABS: PSA, Ultrasensitive <0.01 ng/mL (<= 6.5)
[2024-05-08 16:39] LABS: Testosterone, Total 15 ng/dL (240-950)
== END 2024-05-03 02:56 | disposition home or self-care (01) ==
PROVIDERS: PCP Family Medicine; Visit Provider Nurse Practitioner
DX: C61 Malignant neoplasm of prostate (principal)
CPT/HCPCS: 36415; 80053; 84153; 84403; 85025

== ENCOUNTER 2024-05-14 15:23 | Outpatient (REF) | payer MEDICARE, OTHER, SELFPAY ==
[2024-05-14 16:22] LABS: Vitamin B12 1102 pg/mL (193-986)
[2024-05-14 17:03] LABS: Iron 57 ug/dL (65-175); Total Iron Binding Capacity 270 ug/dL (250-450); Transferrin Sat 21 % (20-55)
[2024-05-15 05:18] LABS: Ferritin 295 ng/mL (26-388)
== END 2024-05-14 15:24 | disposition home or self-care (01) ==
LOC: NCHCN 15:23
PROVIDERS: PCP Family Medicine; Visit Provider Family Medicine
DX: D64.9 Anemia, unspecified (principal)
CPT/HCPCS: 82607; 82728; 83540; 83550

== ENCOUNTER → 2024-06-11 15:16 | Outpatient (BNVA) | payer MEDICARE, OTHER, SELFPAY | PROVIDERS: PCP Family Medicine; Referring Provider Family Medicine; Visit Provider Nurse Practitioner Gerontology | DX: C61 Malignant neoplasm of prostate (principal); R39.9 Unspecified symptoms and signs involving the genitourinary system; B96.89 Other specified bacterial agents as the cause of diseases classified elsewhere | CPT/HCPCS: 51798; 81003; 99214 ==

== ENCOUNTER 2024-06-11 16:11 | Outpatient (REF) | payer MEDICARE, OTHER, SELFPAY | END 2024-06-11 16:12 | disposition home or self-care (01) | LOC: LBN 16:11 | PROVIDERS: PCP Family Medicine; Visit Provider Nurse Practitioner Gerontology | DX: R33.9 Retention of urine, unspecified (principal); R39.9 Unspecified symptoms and signs involving the genitourinary system; C61 Malignant neoplasm of prostate | CPT/HCPCS: 87086 ==

== ENCOUNTER 2024-08-24 01:10 | Outpatient (CLI) | payer MEDICARE, OTHER, SELFPAY ==
[2024-08-24 12:20] LABS: Abs Immature Grans 0.02 10^3/uL (0.0-0.06); Absolute Basophil Count 0.04 10^3/uL (0.0-0.2); Absolute Eosinophil Count 0.23 10^3/uL (0.0-0.7); Absolute Lymphocyte Count 2.31 10^3/uL (1.2-3.4); Absolute Monocyte Count 0.77 10^3/uL (0.1-0.8); Absolute Neutrophil Count 4.82 10^3/uL (1.2-6.7); Basophils % 0.5 %; Eosinophils % 2.8 %; HGB 12.6 g/dL (13.5-17.5); Immature Grans % 0.2 %; Lymphocytes % 28.2 %; MCH 29.3 pg (27.0-33.0); MCHC 32.3 % (32.0-36.0); MCV 91 fL (80-95); MPV 8.4 fL (8.0-11.0); Monocytes % 9.4 %; Neutrophils % 58.9 %; Platelet Count 288 10^3/uL (130-400); RDW 14.3 % (11.8-14.1); RDW-SD 47.8 fL; WBC 8.19 10^3/uL (4.4-10.8)
[2024-08-24 12:40] LABS: ALT 37 U/L (16-63); AST 22 U/L (15-37); Albumin 4.1 g/dL (3.4-5.0); Alkaline Phosphatase 99 U/L (46-116); Anion Gap 6.4 mmol/L (3-11); BUN 27 mg/dL (7-18); Bilirubin, Total 0.2 mg/dL (0.2-1.0); CO2 31.6 mmol/L (21.0-32.0); CREATININE 1.3 mg/dL (0.70-1.30); Chloride 104 mmol/L (98-107); Estimated GFR 57.29 (mL/min/1.73m2); Glucose 110 mg/dL (74-106); Potassium 4.3 mmol/L (3.5-5.1); Sodium 142 mmol/L (136-145); Total Protein 8.2 g/dL (6.4-8.2)
[2024-08-27 13:33] LABS: PSA, Ultrasensitive <0.01 ng/mL (<= 6.5)
[2024-08-31 17:56] LABS: Testosterone, Total 18 ng/dL (240-950)
== END 2024-08-24 01:11 | disposition home or self-care (01) ==
LOC: LBO 01:10
PROVIDERS: PCP Family Medicine; Visit Provider Nurse Practitioner
DX: C61 Malignant neoplasm of prostate (principal)
CPT/HCPCS: 36415; 80053; 84153; 84403; 85025

== ENCOUNTER 2024-12-19 00:06 | Outpatient (CLI) | payer MEDICARE, OTHER, SELFPAY ==
[2024-12-19 10:30] LABS: Abs Immature Grans 0.02 10^3/uL (0.0-0.06); HCT 39.4 % (40.0-50.0); HGB 13.3 g/dL (13.5-17.5); Immature Grans % 0.3 %; MCH 30.6 pg (27.0-33.0); MCHC 33.8 % (32.0-36.0); MCV 91 fL (80-95); MPV 8.4 fL (8.0-11.0); Platelet Count 282 10^3/uL (130-400); RBC 4.34 10^6/uL (4.36-5.78); RDW 12.9 % (11.8-14.1); RDW-SD 42.8 fL; WBC 6.23 10^3/uL (4.4-10.8)
[2024-12-19 11:08] LABS: ALT 52 U/L (16-63); AST 27 U/L (15-37); Albumin 3.8 g/dL (3.4-5.0); Alkaline Phosphatase 80 U/L (46-116); Anion Gap 9.9 mmol/L (3-11); BUN 17 mg/dL (7-18); Bilirubin, Total 0.3 mg/dL (0.2-1.0); CO2 27.1 mmol/L (21.0-32.0); Calcium 9.1 mg/dL (8.5-10.1); Chloride 104 mmol/L (98-107); Estimated GFR 78.00 (mL/min/1.73m2); Glucose 102 mg/dL (74-106); Potassium 4.6 mmol/L (3.5-5.1); Sodium 141 mmol/L (136-145); Total Protein 8.0 g/dL (6.4-8.2)
== END 2024-12-19 00:07 | disposition home or self-care (01) ==
PROVIDERS: PCP Family Medicine; Visit Provider Nurse Practitioner
DX: C61 Malignant neoplasm of prostate (principal)
CPT/HCPCS: 36415; 80053; 84153; 84403; 85025